=== PATIENT | female | born 1950 | race Caucasian/White ===

== ENCOUNTER → 2018-06-04 09:18 | Outpatient (REF) | payer MEDICARE, MEDICAID, SELFPAY | LOC: LBN 09:18 | PROVIDERS: PCP Family Medicine; Visit Provider Family Medicine | DX: R19.7 Diarrhea, unspecified (principal) | CPT/HCPCS: 87324 ==

== ENCOUNTER → 2018-06-08 00:15 | Outpatient (CLI) | payer MEDICARE, MEDICAID, SELFPAY ==
--- NOTE | 2018-06-08 07:52 | DI.RPTCT_ITS ---
SYMPTOM/DIAGNOSIS: ABDOMINAL PAIN, ABDOMINAL MASS CT SCAN ABDOMEN AND PELVIS: CT scan of the abdomen and pelvis was performed following the uneventful administration of intravenous and oral contrast material. There are no priors for comparison. Comparison ultrasound is 01/30/14. The visualized lung bases are clear. The liver is normal in size. No evidence of an hepatic mass seen. The portal and superior mesenteric veins are patent. The patient is status post cholecystectomy. No biliary ductal dilatation is present. The pancreas is unremarkable as are the spleen and adrenal glands. The kidneys show normal and symmetric enhancement. No evidence of a solid renal mass or obstruction. The urinary bladder is intact. The reproductive organs are unremarkable. There is atherosclerosis of the abdominal aorta but no aneurysmal dilatation is present. No significant abdominal or pelvic adenopathy, ascites or pneumoperitoneum is present. There is a small fat containing umbilical hernia. There is a large fat containing supra umbilical hernia measuring 7.2 cm transverse x 3.5 cm AP. The anterior abdominal wall opening of the hernia measures 2.6 cm There is a smaller fat containing midline anterior abdominal wall hernia in the supraumbilical region which measures approximately 1.5 cm in diameter. There is diverticulosis of the colon but no evidence of acute diverticulitis. The remainder of the bowel is unremarkable. There is a normal retrocecal appendix present. There are moderate degenerative changes seen in the spine. IMPRESSION: 1. Two anterior abdominal wall fat containing umbilical hernias. They are midline and supraumbilical in location. 2. No evidence of an acute abdomen. Incidental findings in the abdomen and pelvis as described above.
[2018-06-08] MEDS: Omnipaque 350 MG/ML 100 ML BTL IJ (08:43)
[2018-06-08] MEDS: Omnipaque 350 MG/ML 50 ML BTL IJ (08:43)
[2018-06-08] MEDS: Breeza Beverage 473 ML BTL PO (08:45)
[2018-06-08 08:57] LABS: ALT 20 U/L (12-78); AST 15 U/L (15-37); Albumin 3.6 g/dL (3.4-5.0); Alkaline Phosphatase 46 U/L (46-116); Anion Gap 7.8 mmol/L (3-11); BUN 8 mg/dL (7-18); Bilirubin, Total 0.7 mg/dL (0.2-1.0); CO2 30.2 mmol/L (21.0-32.0); CREATININE 0.84 mg/dL (0.55-1.02); Chloride 103 mmol/L (98-107); Ferritin 18 ng/mL (8-388); Glucose 219 mg/dL (70-100); Magnesium 1.5 mg/dL (1.8-2.4); Potassium 3.6 mmol/L (3.5-5.1); Sodium 141 mmol/L (136-145); Total Protein 7.4 g/dL (6.4-8.2)
[2018-06-08 09:12] LABS: Iron 52 ug/dL (50-175)
== END ==
PROVIDERS: PCP Family Medicine; Visit Provider Family Medicine
DX: R10.30 Lower abdominal pain, unspecified (principal); K42.9 Umbilical hernia without obstruction or gangrene; D64.9 Anemia, unspecified; E11.21 Type 2 diabetes mellitus with diabetic nephropathy; K21.9 Gastro-esophageal reflux disease without esophagitis
CPT/HCPCS: 74177; Q9967; 36415; 80053; 82728; 83540; 83735; J3490

== ENCOUNTER → 2018-07-19 10:50 | Outpatient (BNVA) | payer MEDICARE, MEDICAID, SELFPAY | PROVIDERS: PCP Family Medicine; Visit Provider Surgery | DX: D50.8 Other iron deficiency anemias (principal) ==

== ENCOUNTER 2018-07-23 11:43 | Outpatient (CLI) | payer MEDICARE, MEDICAID, SELFPAY | END 2018-07-23 12:03 | PROVIDERS: PCP Family Medicine; Visit Provider Surgery | DX: D50.8 Other iron deficiency anemias (principal); Z01.818 Encounter for other preprocedural examination ==

== ENCOUNTER 2018-07-30 08:23 | Day surgery (SDC) | payer MEDICARE, MEDICAID, SELFPAY ==
--- NOTE | 2018-07-30 08:47 | W.COLOREPORT ---
Date of service: 07/30/18 Time of Service: 12:07 Colonoscopy Report Date of procedure: 07/30/18 Pre-op diagnosis general: Anemia Post-op diagnosis procedure note: other (1. Anemia 2. Sigmoid Diverticulosis 3. Grade II Hemorrhoids) Procedure: 1. Esophagogastroduodenoscopy 2. Colonoscopy to the cecum Surgeon: Ehsan White Anesthesia proc note operative: MAC (Selvin Kirk CRNA ASA 3, Mallampati III) Estimated blood loss (mL): 0 Pathology: none sent Complications: None Disposition: same day Indications: 67 y/o female with history of anemia presents for colonoscopy and EGD pre-op. Her last colonoscopy was in 2009. She denies any known location of bleeding. She denies a family history of colon cancer. She reports that for several months (exact duration unknown) she has been having green BM's and for the last 1.5 months she been having diarrhea. She reports having had heartburn in the past which has since resolved with the use of omeprazole. She denies having abdominal pain, melena or hematochezia. She reports having reports having been told she has COPD and CHF. She is a current smoker of 7 cig/day. She denies having any chest pain, dyspnea or dyspnea on exertion. She last saw a digital account executive in April 2018 which did not require any follow up. She denies any history or family history of anesthesia complications. She denies constitutional symptoms. It was recommended that she have an upper and lower endoscopy to evaluate for GI source of her anemia. The procedures were reviewed with her, and the associated risks were discussed. All her questions were answered to her satisfaction. Prep: Miralax/Dulcolax (Prep quality good) Findings: In examining the upper gastrointestinal tract from the oropharynx to the third portion of the duodenum, no abnormalities were noted. The colon was examined from cecum to anus. In the colon she was noted to have mild sigmoid diverticulosis, and in the rectum at the anorectal junction there is grade 2 hemorrhoids. Procedure Description: The patient was brought to the procedure room. Monitoring for telemetry, end-tidal CO2, O2 saturation, blood pressure were applied. An appropriate timeout was taken reviewing the patient's identification, allergies, medications,and procedure. Sedation was titrated for effect by the HOSPITAL NURSE. The upper endoscopy was performed first. An Olympus variable stiffness endoscope was advanced from the oropharynx to the third portion of the duodenum without difficulty. The scope was then withdrawn in circumferential manner from the duodenum back to the oropharynx. In performing withdrawal of the scope, the duodenum appeared grossly normal. The scope was withdrawn into the gastric antrum and retroflexed to examine the entire stomach, and no abnormalities of the gastric antrum, anterior, posterior surfaces of the stomach, lesser curvature, greater curvature, and fundus were noted. The scope was then withdrawn to the GE junction which I measured at 42 cm. The Z line was at 42 cm and appeared regular. I withdrew the scope through the remainder of the esophagus all which appear grossly normal. Scope was then withdrawn terminating the upper endoscopy. The patient was then repositioned for colonoscopy. Sedation was titrated for effect again. Once adequate sedation was achieved, I performed a inspection of the external perineum, and a digitial rectal examination. No significant external abnormalities were noted. On digital rectal examination, there was no blood, no masses, good rectal tone. I advanced the colonoscope from the anus to the cecum under direct visualization. The cecum was identified by the ileal-cecal valve, and the appendiceal orifice. The scope was then withdrawn in circumferential manner from the cecum to the rectum. No abnormalites were noted in the colon. The scope was then withdrawn into the rectum, and retroflexed. No abnormalities were noted of the rectum or anorectal junction. The scope was then withdrawn, terminating the procedure. There were no complications during the procedure, and the patient tolerated the procedure well. She was returned to the day surgery recovery area in good condition. Plan: No occult source identified as a possible source of Mrs. Pratt iron deficiency anemia. She does have hemorrhoids, which appeared to have been active recently. If she continues to have issues with her hemorrhoids then she may be surgically amendable to hemorrhoid banding versus resection; otherwise, conservative medical management with topical medication and fiber therapy for the hemorrhoids would be appropriate. She should have another colonoscopy for colorectal screening in 10 years, given current consensus guidelines
[2018-07-30 08:55] VITALS: BP 154/82; PULSE 108; RESP 18; TEMP 36.6; O2SAT 91
[2018-07-30] MEDS: Lactated Ringers 1,000 ML 80 ML IV (09:13)
--- NOTE | 2018-07-30 11:04 | W.PM.HP.N ---
Date of service: 07/30/18 Time of Service: 11:05 Assessment and Plan (1) Iron deficiency anemia: Current visit: Yes Status: Acute History of Present Illness Chief Complaint: Anemia Review of Systems Review of Systems Constitutional: Denies fever, chills, malaise, fatigue, weight loss, sweating; Neurological: denies headache, seizures, syncope; weakness Eyes: denies loss of vision, double vision, blurry vision, wears corrective lenses; Ears,nose, throat: denies loss of hearing, tinnitus, vertigo, epistaxis, hoarseness, throat swelling. Cardiac: denies chest pain with exertion, palpation, pain shooting from chest into arm. Respiratory: denies cough, sputum production, chest congestion, wheezing. Gastrointestinal: denies abdominal pain, dysphagia, nausea, vomiting, hematamesis, hematochezia, melena. Genitourinary: denies frequency, urgency, hesitancy, incontinence, and dysuria. Musculoskeletal: denies arthralgia, myalgia, fracture, joint pain, joint swelling, back pain. Psychiatric: denies anxiety, depression, difficulty concentrating, difficulty sleeping, irritability. PFSH Family History Father Diabetes Grandfather Diabetes Grandmother Diabetes Mother No problems noted. Daughter Neoplasm Daughter Depression Daughter No problems noted. Daughter No problems noted. Medical History COPD (chronic obstructive pulmonary disease) Diabetes mellitus, insulin dependent (IDDM), controlled Diabetic nephropathy Diabetic retinopathy Essential hypertension Heart failure Hyperlipidemia Tobacco dependence Surgical History Cholecystectomy Colonoscopy - [facility] [place] Home Medications Medication Instructions Recorded Confirmed Type blood-glucose meter #1 ea 02/07/14 07/19/18 History triamcinolone acetonide 1 applic TOPICAL BID PRN #1 tube 07/20/14 07/23/18 History multivitamin [Multi-Vitamin Daily] 1 tab PO DAILY 07/30/15 07/19/18 History magnesium chloride [Slow-Mag] 71.5 mg PO BID #60 tab-cap 07/01/16 07/30/18 History blood sugar diagnostic [Onetouch #200 strip 08/05/17 07/19/18 Rx Ultra Test Strips] lancets [Soft Touch] #1 box 08/05/17 07/19/18 Rx losartan 1.5 tab PO DAILY #120 tab 08/05/17 07/30/18 Rx valacyclovir 1 tab PO DAILY #90 tab 10/16/17 07/30/18 Rx furosemide 40 - 60 mg PO DAILY #90 tab-cap 10/28/17 07/30/18 Rx omeprazole 20 mg PO DAILY #90 tab-cap 03/31/18 07/30/18 Rx ferrous sulfate 325 mg PO TID #90 tab-cap 04/26/18 07/30/18 Rx amlodipine 5 mg PO DAILY #30 tab-cap 06/28/18 07/30/18 Rx cetirizine 10 mg PO DAILY #90 tab-cap 06/28/18 07/30/18 Rx fluticasone [Flonase Allergy 2 spry NS DAILY PRN #120 spry 07/02/18 07/23/18 History Relief] metformin 2 tab PO BID 07/23/18 07/30/18 History Allergies Allergy/AdvReac Type Severity Reaction Status Date / Time codeine AdvReac Severe Cardiac Verified 07/23/18 11:59 Dysrythmia indomethacin AdvReac Intermediate Cardiac Verified 07/23/18 11:59 Dysrythmia lisinopril AdvReac Verified 07/23/18 11:59 Exam Narrative Exam Narrative: General: Awake, alert, oriented x 3, well groomed Neurological: cranial nerves II-12 grossly intact, moves all extremities, no focal deficits. HEENT: Normacephalic, atruamatic, pupils are equal, round, and reactive to light, extraocular muscles intact, mucousa moist and pink. Neck: normal visual inspection, supple, trachea midline. Heart: regular rate, rhythm Respiratory: No wheezing, cough, sputum production, or chest congestion. breathing unlabored. Abdomen: Soft, non-tender, non-distended, no hernias. Extremities: no cyanosis, clubbing or edema. Integument: warm, dry, normal turgor, no rashes, or lesion.
--- NOTE | 2018-07-30 11:12 | HPE_ITS ---
Date of service: 07/30/18 Time of Service: 11:05 Assessment and Plan (1) Iron deficiency anemia: Current visit: Yes Status: Acute History of Present Illness Chief Complaint: Anemia Review of Systems Review of Systems Constitutional: Denies fever, chills, malaise, fatigue, weight loss, sweating; Neurological: denies headache, seizures, syncope; weakness Eyes: denies loss of vision, double vision, blurry vision, wears corrective lenses; Ears ,nose, throat: denies loss of hearing, tinnitus, vertigo, epistaxis, hoarseness , throat swelling. Cardiac: denies chest pain with exertion, palpation, pain shooting from chest into arm. Respiratory: denies cough, sputum production, chest congestion, wheezing. Gastrointestinal: denies abdominal pain, dysphagia, nausea, vomiting, hematamesis, hematochezia, melena. Genitourinary: denies frequency, urgency, hesitancy, incontinence, and dysuria. Musculoskeletal: denies arthralgia, myalgia, fracture, joint pain, joint swelling, back pain. Psychiatric: denies anxiety, depression, difficulty concentrating, difficulty sleeping, irritability. PFSH Family History Father Diabetes Grandfather Diabetes Grandmother Diabetes Mother No problems noted. Daughter Neoplasm Daughter Depression Daughter No problems noted. Daughter No problems noted. Medical History COPD (chronic obstructive pulmonary disease) Diabetes mellitus, insulin dependent (IDDM), controlled Diabetic nephropathy Diabetic retinopathy Essential hypertension Heart failure Hyperlipidemia Tobacco dependence Surgical History Cholecystectomy Colonoscopy - [facility] Home Medications Medication Instructions Recorded Confirmed Type blood-glucose meter #1 ea 02/07/14 07/19/18 History triamcinolone acetonide 1 applic TOPICAL BID PRN #1 tube 07/20/14 07/23/18 History multivitamin [Multi-Vitamin Daily] 1 tab PO DAILY 07/30/15 07/19/18 History magnesium chloride [Slow-Mag] 71.5 mg PO BID #60 tab-cap 07/01/16 07/30/18 History blood sugar diagnostic [Onetouch #200 strip 08/05/17 07/19/18 Rx Ultra Test Strips] lancets [Soft Touch] #1 box 08/05/17 07/19/18 Rx losartan 1.5 tab PO DAILY #120 tab 08/05/17 07/30/18 Rx valacyclovir 1 tab PO DAILY #90 tab 10/16/17 07/30/18 Rx furosemide 40 - 60 mg PO DAILY #90 tab-cap 10/28/17 07/30/18 Rx omeprazole 20 mg PO DAILY #90 tab-cap 03/31/18 07/30/18 Rx ferrous sulfate 325 mg PO TID #90 tab-cap 04/26/18 07/30/18 Rx amlodipine 5 mg PO DAILY #30 tab-cap 06/28/18 07/30/18 Rx cetirizine 10 mg PO DAILY #90 tab-cap 06/28/18 07/30/18 Rx fluticasone [Flonase Allergy 2 spry NS DAILY PRN #120 spry 07/02/18 07/23/18 History Relief] metformin 2 tab PO BID 07/23/18 07/30/18 History Allergies Allergy/AdvReac Type Severity Reaction Status Date / Time codeine AdvReac Severe Cardiac Verified 07/23/18 11:59 Dysrythmia indomethacin AdvReac Intermediate Cardiac Verified 07/23/18 11:59 Dysrythmia lisinopril AdvReac Verified 07/23/18 11:59 Exam Narrative Exam Narrative: General: Awake, alert, oriented x 3, well groomed Neurological: cranial nerves II-12 grossly intact, moves all extremities, no focal deficits. HEENT: Normacephalic, atruamatic, pupils are equal, round, and reactive to light, extraocular muscles intact, mucousa moist and pink. Neck: normal visual inspection, supple, trachea midline. Heart: regular rate, rhythm Respiratory: No wheezing, cough, sputum production, or chest congestion. breathing unlabored. Abdomen: Soft, non-tender, non-distended, no hernias. Extremities: no cyanosis, clubbing or edema. Integument: warm , dry, normal turgor, no rashes, or lesion.
--- NOTE | 2018-07-30 11:15 | DSE_ITS ---
Date of service: 07/30/18 Time of Service: 11:13 DS: Diagnosis Discharge Diagnosis (1) Iron deficiency anemia: Status: Acute Discharge Plan Disposition Patient Disposition: HOME Condition: Good Discharge Details Reason For Visit: Upper and lower endoscopy Attending Provider: Ehsan White Primary Care Provider: Jane Johnson Home Meds and New Rx's Prescriptions: No Action blood-glucose meter 1 EACH misc 1 ea Miscellaneous AC & HS Qty: 1 RF: 0 triamcinolone acetonide 15 GM cream 1 applic Topical BID PRNQty: 1 RF: 3 magnesium chloride [Slow-Mag] 71.5 MG tablet,delayed release (DR/EC) 71.5 mg PO BID Qty: 60 RF: 2 blood sugar diagnostic [[employer] Ultra Test] 1 EACH strip 1 ea Miscellaneous BID Qty: 200 RF: 5 lancets [Soft Touch Lancets] 1 EACH misc 1 ea Miscellaneous BID Qty: 1 RF: 4 losartan 100 MG tablet 1.5 tab PO DAILY Qty: 120 RF: 4 valacyclovir 500 MG tablet 1 tab PO DAILY Qty: 90 RF: 3 furosemide 20 MG tablet 40 - 60 mg PO DAILY Qty: 90 RF: 11 omeprazole 20 MG capsule,delayed release(DR/EC) 20 mg PO DAILY Qty: 90 RF: 3 ferrous sulfate 325 MG tablet 325 mg PO TID Qty: 90 RF: 2 amlodipine 5 MG tablet 5 mg PO DAILY Qty: 30 RF: 3 cetirizine 10 MG tablet 10 mg PO DAILY Qty: 90 RF: 4 fluticasone [Flonase Allergy Relief] 9.9 ML spray,suspension 2 spry NS DAILY PRNQty: 120 RF: 5 multivitamin [Daily Multi-Vitamin] 1 EACH tablet 1 tab PO DAILY RF: 0 metformin 500 MG tablet 2 tab PO BID RF: 0 Discharge Instructions Instructions: Upper Endoscopy (DC), Colonoscopy (DC) Activity:: Activity as Tolerated Diet:: As Tolerated DS: Data Vitals/I&O Vitals and I&O: Vital Signs Temperature 36.6 C 07/30/18 08:55 Pulse 108 H 07/30/18 08:55 Respiratory Rate 18 07/30/18 08:55 Respiratory Depth Shallow 07/30/18 08:55 Blood Pressure 154/82 H 07/30/18 08:55 Pulse Oximetry 91 L 07/30/18 08:55 Oxygen Delivery Method Room Air 07/30/18 08:55 Oxygen Flow Rate 0 07/30/18 08:55 Intake & Output 07/29/18 07/30/18 07/30/18 18:59 06:59 18:59 Weight 69.8 kg Pending studies at discharge: CHOLECYSTECTOMY (01/24/99) ELECTROCARDIOGRAM (01/16/99) ENDOSCOPIC BIOPSY OF RECTUM (06/17/10) Hysteroscopy (03/04/12) Other dilation and curettage (03/04/12)
--- NOTE | 2018-07-30 12:07 | PDOC.DSDIS_ITS ---
Discharge Plan Disposition Patient Disposition: HOME Condition: Good Discharge Details Reason For Visit: Upper and lower endoscopy Attending Provider: Ehsan White Primary Care Provider: Jane Johnson Home Meds and New Rx's Prescriptions: Continue blood-glucose meter 1 EACH misc 1 ea Miscellaneous AC & HS Qty: 1 RF: 0 triamcinolone acetonide 15 GM cream 1 applic Topical BID PRNQty: 1 RF: 3 magnesium chloride [Slow-Mag] 71.5 MG tablet,delayed release (DR/EC) 71.5 mg PO BID Qty: 60 RF: 2 blood sugar diagnostic [[employer]Touch Ultra Test] 1 EACH strip 1 ea Miscellaneous BID Qty: 200 RF: 5 lancets [Soft Touch Lancets] 1 EACH misc 1 ea Miscellaneous BID Qty: 1 RF: 4 losartan 100 MG tablet 1.5 tab PO DAILY Qty: 120 RF: 4 valacyclovir 500 MG tablet 1 tab PO DAILY Qty: 90 RF: 3 furosemide 20 MG tablet 40 - 60 mg PO DAILY Qty: 90 RF: 11 omeprazole 20 MG capsule,delayed release(DR/EC) 20 mg PO DAILY Qty: 90 RF: 3 ferrous sulfate 325 MG tablet 325 mg PO TID Qty: 90 RF: 2 amlodipine 5 MG tablet 5 mg PO DAILY Qty: 30 RF: 3 cetirizine 10 MG tablet 10 mg PO DAILY Qty: 90 RF: 4 fluticasone [Flonase Allergy Relief] 9.9 ML spray,suspension 2 spry NS DAILY PRNQty: 120 RF: 5 multivitamin [Daily Multi-Vitamin] 1 EACH tablet 1 tab PO DAILY RF: 0 metformin 500 MG tablet 2 tab PO BID RF: 0 Discharge Instructions Instructions: Colonoscopy (DC), Upper Endoscopy (DC) Activity:: Activity as Tolerated Diet:: As Tolerated Discharge Orders Discharge Orders: Discharge Order (Routine); Ordered 07/30/18 Ordered By: Ehsan White DS: Diagnosis Discharge Diagnosis (1) Iron deficiency anemia: Status: Acute
--- NOTE | 2018-07-30 12:08 | COLE_ITS ---
Date of service: 07/30/18 Time of Service: 12:07 Colonoscopy Report Date of procedure: 07/30/18 Pre-op diagnosis general: Anemia Post-op diagnosis procedure note: other (1. Anemia 2. Sigmoid Diverticulosis 3. Grade II Hemorrhoids) Procedure: 1. Esophagogastroduodenoscopy 2. Colonoscopy to the cecum Surgeon: Ehsan White Anesthesia proc note operative: MAC (Selvin Kirk CRNA ASA 3, Mallampati III) Estimated blood loss (mL): 0 Pathology: none sent Complications: None Disposition: same day Indications: 67 y/o female with history of anemia presents for colonoscopy and EGD pre-op. Her last colonoscopy was in 2009. She denies any known location of bleeding. She denies a family history of colon cancer. She reports that for several months (exact duration unknown) she has been having green BM's and for the last 1.5 months she been having diarrhea. She reports having had heartburn in the past which has since resolved with the use of omeprazole. She denies having abdominal pain, melena or hematochezia. She reports having reports having been told she has COPD and CHF. She is a current smoker of 7 cig/day. She denies having any chest pain, dyspnea or dyspnea on exertion. She last saw a supervisor cytogenetic laboratory in April 2018 which did not require any follow up. She denies any history or family history of anesthesia complications. She denies constitutional symptoms. It was recommended that she have an upper and lower endoscopy to evaluate for GI source of her anemia. The procedures were reviewed with her, and the associated risks were discussed. All her questions were answered to her satisfaction. Prep: Miralax/Dulcolax (Prep quality good) Findings: In examining the upper gastrointestinal tract from the oropharynx to the third portion of the duodenum, no abnormalities were noted. The colon was examined from cecum to anus. In the colon she was noted to have mild sigmoid diverticulosis, and in the rectum at the anorectal junction there is grade 2 hemorrhoids. Procedure Description: The patient was brought to the procedure room. Monitoring for telemetry, end- tidal CO2, O2 saturation, blood pressure were applied. An appropriate timeout was taken reviewing the patient's identification, allergies, medications,and procedure. Sedation was titrated for effect by the SOCIAL MEDIA ANALYST. The upper endoscopy was performed first. An Olympus variable stiffness endoscope was advanced from the oropharynx to the third portion of the duodenum without difficulty. The scope was then withdrawn in circumferential manner from the duodenum back to the oropharynx. In performing withdrawal of the scope , the duodenum appeared grossly normal. The scope was withdrawn into the gastric antrum and retroflexed to examine the entire stomach, and no abnormalities of the gastric antrum, anterior, posterior surfaces of the stomach , lesser curvature, greater curvature, and fundus were noted. The scope was then withdrawn to the GE junction which I measured at 42 cm. The Z line was at 42 cm and appeared regular. I withdrew the scope through the remainder of the esophagus all which appear grossly normal. Scope was then withdrawn terminating the upper endoscopy. The patient was then repositioned for colonoscopy. Sedation was titrated for effect again. Once adequate sedation was achieved, I performed a inspection of the external perineum, and a digitial rectal examination. No significant external abnormalities were noted. On digital rectal examination, there was no blood, no masses, good rectal tone. I advanced the colonoscope from the anus to the cecum under direct visualization. The cecum was identified by the ileal-cecal valve, and the appendiceal orifice. The scope was then withdrawn in circumferential manner from the cecum to the rectum. No abnormalites were noted in the colon. The scope was then withdrawn into the rectum, and retroflexed. No abnormalities were noted of the rectum or anorectal junction. The scope was then withdrawn, terminating the procedure. There were no complications during the procedure, and the patient tolerated the procedure well. She was returned to the day surgery recovery area in good condition. Plan: No occult source identified as a possible source of Mrs. Pratt iron deficiency anemia. She does have hemorrhoids, which appeared to have been active recently. If she continues to have issues with her hemorrhoids then she may be surgically amendable to hemorrhoid banding versus resection; otherwise, conservative medical management with topical medication and fiber therapy for the hemorrhoids would be appropriate. She should have another colonoscopy for colorectal screening in 10 years, given current consensus guidelines
[2018-07-30 12:47] VITALS: BP 131/69; PULSE 92; RESP 16; TEMP 36.8; O2SAT 91
== END 2018-07-30 13:05 | disposition home or self-care (01) ==
PROVIDERS: PCP Family Medicine; Visit Provider Surgery
PROC: (CPT 43235; principal; 2018-07-30 10:10)
DX: D50.9 Iron deficiency anemia, unspecified (principal); K57.30 Diverticulosis of large intestine without perforation or abscess without bleeding; K64.1 Second degree hemorrhoids; J44.9 Chronic obstructive pulmonary disease, unspecified; F17.210 Nicotine dependence, cigarettes, uncomplicated; I10 Essential (primary) hypertension
CPT/HCPCS: 43235; 45378; J2250; J3010

== ENCOUNTER → 2018-07-30 08:49 | Outpatient (BNVA) | payer MEDICARE, MEDICAID, SELFPAY | PROVIDERS: Visit Provider Surgery | DX: R69 Illness, unspecified (principal) ==

== ENCOUNTER 2018-08-05 11:42 | Outpatient (REF) | payer MEDICARE, MEDICAID, SELFPAY | END 2018-08-05 12:02 | LOC: LBN 11:42 | PROVIDERS: PCP Family Medicine; Visit Provider Family Medicine | DX: R30.0 Dysuria (principal) | CPT/HCPCS: 87077; 87086; 87186 ==

== ENCOUNTER 2018-08-18 07:40 | Outpatient (CLI) | payer MEDICARE, MEDICAID, SELFPAY ==
[2018-08-18 08:44] LABS: HCT 44.4 % (36.0-46.0); HGB 14.1 g/dL (12.0-15.5); Mean Corp. HGB Concentration 31.8 g/dL (32.0-36.0); Mean Corpuscular Hemoglobin 27.9 pg (27.0-33.0); Mean Corpuscular Volume 87.7 fL (80-95); Mean Platelet Volume 10.6 fL (8.0-11.0); Platelet Count 226 x1000/uL (130-400); RBC 5.06 m/cumm (4.00-5.20); RBC Distribution Width 13.8 % (11.7-14.6); White Blood Cell Count 8.03 k/cumm (4.4-10.8)
[2018-08-18 09:16] LABS: Hemoglobin A1C 9.3 % (4.5-6.2)
== END 2018-08-18 08:00 ==
PROVIDERS: Family Medicine; PCP Family Medicine; Visit Provider Family Medicine
DX: D50.9 Iron deficiency anemia, unspecified (principal); E11.21 Type 2 diabetes mellitus with diabetic nephropathy
CPT/HCPCS: 36415; 85027; 83036

== ENCOUNTER 2019-01-20 18:56 | Outpatient (REF) | payer MEDICARE, MEDICAID, SELFPAY ==
[2019-01-20 19:49] LABS: Bilirubin Negative (Negative); Blood Moderate (Negative); Clarity Sl Cloudy; Glucose Negative (Negative); Ketones Trace mg/dL (Negative); Leukocyte Esterase Negative (Negative); Nitrite Negative (Negative); Specific Gravity 1.025 (1.005-1.025); Urobilinogen 0.2 EU/dL (Up TO 0.2); pH 5.5 (5-8)
[2019-01-20 20:14] LABS: Bacteria Many HPF (Negative); C & S Indicated? No/Sq. Contamination; Casts Negative LPF (Negative); Crystals Moderate Amorphous HPF (Negative); Epithelial Cells Moderate HPF (Negative); Mucus Negative (Negative); WBC 20-50 HPF (0-5)
== END 2019-01-20 19:16 ==
LOC: LBN 18:56
PROVIDERS: PCP Family Medicine; Visit Provider Nurse Practitioner Family
DX: R30.0 Dysuria (principal)
CPT/HCPCS: 81003; 81015; 87086

== ENCOUNTER 2019-01-26 20:47 | Outpatient (REF) | payer MEDICARE, MEDICAID, SELFPAY | END 2019-01-26 21:07 | LOC: LBN 20:47 | PROVIDERS: PCP Family Medicine; Visit Provider Nurse Practitioner Family | DX: R30.0 Dysuria (principal) | CPT/HCPCS: 87077; 87086; 87186 ==

== ENCOUNTER 2019-06-08 10:48 | Outpatient (CLI) | payer MEDICARE, MEDICAID, SELFPAY ==
--- NOTE | 2019-06-08 10:30 | DI.RAD_ITS ---
SYMPTOM/DIAGNOSIS: SHOULDER PAIN LEFT SHOULDER: There is spurring at the AC joint and undersurface of the acromion. There is mild spurring at the glenohumeral joint. The glenohumeral joint space appears well maintained. There are several calcifications seen near the greater tuberosity which could represent tendon or joint space calcifications. The bones appear osteoporotic. IMPRESSION: Tendon versus joint space calcifications near the greater tuberosity. Spurring of the AC joint and glenohumeral joint.
== END 2019-06-08 11:08 ==
PROVIDERS: PCP Family Medicine; Referring Provider Family Medicine; Visit Provider Student in an Organized Health Care Education/Training Program
DX: M25.512 Pain in left shoulder (principal); M75.82 Other shoulder lesions, left shoulder; M81.0 Age-related osteoporosis without current pathological fracture; M75.32 Calcific tendinitis of left shoulder; E11.21 Type 2 diabetes mellitus with diabetic nephropathy; I10 Essential (primary) hypertension
CPT/HCPCS: 99214; 73030

== ENCOUNTER 2019-06-13 07:30 | Outpatient (CLI) | payer MEDICARE, MEDICAID, SELFPAY ==
[2019-06-13 09:05] LABS: Hemoglobin A1C 9.6 % (4.5-6.2)
[2019-06-13 09:35] LABS: Iron 68 ug/dL (50-175)
[2019-06-13 09:50] LABS: ALT 22 U/L (12-78); AST 13 U/L (15-37); Albumin 3.9 g/dL (3.4-5.0); Alkaline Phosphatase 50 U/L (46-116); Anion Gap 9.2 mmol/L (3-11); BUN 17 mg/dL (7-18); Bilirubin, Total 0.9 mg/dL (0.2-1.0); CO2 31.8 mmol/L (21.0-32.0); CREATININE 0.85 mg/dL (0.55-1.02); Calcium 9.5 mg/dL (8.5-10.1); Chloride 100 mmol/L (98-107); Ferritin 79 ng/mL (8-388); Glucose 220 mg/dL (70-100); Magnesium 1.8 mg/dL (1.8-2.4); Sodium 141 mmol/L (136-145); Total Protein 7.2 g/dL (6.4-8.2)
[2019-06-13 11:39] LABS: COMMENT (LAB VIEW ONLY) 97.26 mg/dL
== END 2019-06-13 07:50 ==
PROVIDERS: PCP Family Medicine; Visit Provider Family Medicine
DX: E83.42 Hypomagnesemia (principal); D50.9 Iron deficiency anemia, unspecified; E11.21 Type 2 diabetes mellitus with diabetic nephropathy
CPT/HCPCS: 36415; 80053; 82043; 82570; 82728; 83036; 83540; 83735

== ENCOUNTER 2019-08-28 09:48 | Emergency (ER) | payer MEDICARE, MEDICAID, SELFPAY ==
[2019-08-28] VITALS (40 sets, daily range): BP systolic 120–170; BP diastolic 57–75; PULSE 92–115; RESP 12–44; TEMP 36.5; O2SAT 89–93
[2019-08-28 10:35] LABS: Bilirubin Negative (Negative); Blood Trace-intact (Negative); Clarity Clear (Clear); Glucose Negative (Negative); Ketones Negative (Negative); Leukocyte Esterase Negative (Negative); Nitrite Negative (Negative); Specific Gravity 1.015 (1.005-1.025); Urobilinogen 0.2 EU/dL (Up TO 0.2); pH 6.5 (5-8)
--- NOTE | 2019-08-28 10:45 | DI.RAD_ITS ---
EXAM: XR CHEST 2V PA LATERAL INDICATION: dizziness. COMPARISON: CHEST 2 VIEWS PA,LAT from 04/19/2018 TECHNIQUE: 2D digital imaging was performed. FINDINGS: Heart size and pulmonary vasculature are within normal limits. The lungs are hyperinflated suggestin g underlying COPD. No focal consolidating infiltrates, effusions, or pneumothoraces are identified. Stable age-appropriate degenerative changes are seen in the spine. IMPRESSION: No acute pulmonary process.
[2019-08-28 10:49] LABS: Abs Immature Grans 0.02 k/cumm (0.0-0.09); Absolute Basophil Count 0.02 k/cumm (0.0-0.2); Absolute Eosinophil Count 0.19 k/cumm (0.0-0.7); Absolute Lymphocyte Count 1.51 k/cumm (1.2-3.4); Absolute Monocyte Count 0.62 k/cumm (0.11-0.7); Absolute Neutrophil Count 5.91 k/cumm (1.2-6.7); Basophils % 0.2; Eosinophils % 2.3; HCT 43.6 % (36.0-46.0); HGB 14.2 g/dL (12.0-15.5); Immature Grans % 0.2; Lymphocytes % 18.3; Mean Corp. HGB Concentration 32.6 g/dL (32.0-36.0); Mean Corpuscular Hemoglobin 29.8 pg (27.0-33.0); Mean Corpuscular Volume 91.6 fL (80-95); Mean Platelet Volume 10.2 fL (8.0-11.0); Monocytes % 7.5; Neutrophils % 71.5; Platelet Count 279 x1000/uL (130-400); RBC 4.76 m/cumm (4.00-5.20); RBC Distribution Width 12.8 % (11.7-14.6); White Blood Cell Count 8.27 k/cumm (4.4-10.8)
[2019-08-28 10:54] LABS: Bacteria Rare HPF (Negative); C & S Indicated? No/Sq. Contamination; Casts Negative LPF (Negative); Crystals Negative HPF (Negative); Epithelial Cells Many HPF (Negative); Mucus Negative (Negative); RBC 0-2 (0-2); WBC 0-2 HPF (0-5)
--- NOTE | 2019-08-28 11:07 | DI.VRAD_ITS ---
PROCEDURE INFORMATION: Exam: XR Chest, 2 Views Exam date and time: 08/28/2019 10:46 AM Clinical history: 69 years old, female; Other: Dizziness, and chest pain. TECHNIQUE: Imaging protocol: XR of the chest Views: 2 views. COMPARISON: CR CHEST 2 VIEWS PA,LAT 04/19/2018 3:09 PM FINDINGS: Lungs: Hyperexpanded lung ramirez consistent with COPD Pleural space: Unremarkable. No pleural effusion. No pneumothorax. Heart/Mediastinum: Unremarkable. No cardiomegaly. Bones/joints: Osseous structures are stable IMPRESSION: Hyperexpanded lung ramirez consistent with COPD Dictated and Authenticated by: Gunner Charles MD. Ordering:GRACE lAmeida MD
[2019-08-28 11:08] LABS: ALT 18 U/L (14-59); AST 12 U/L (15-37); Albumin 3.8 g/dL (3.4-5.0); Alkaline Phosphatase 43 U/L (46-116); Anion Gap 4.9 mmol/L (3-11); BUN 14 mg/dL (7-18); Bilirubin, Total 0.8 mg/dL (0.2-1.0); CO2 32.1 mmol/L (21.0-32.0); CREATININE 0.95 mg/dL (0.55-1.02); Calcium 9.2 mg/dL (8.5-10.1); Chloride 101 mmol/L (98-107); Estimated GFR 58.16 (mL/min/1.73m2); Glucose 293 mg/dL (70-100); NT-proBNP 345 pg/mL; Sodium 138 mmol/L (136-145); Total Protein 7.7 g/dL (6.4-8.2)
[2019-08-28 11:14] LABS: Troponin I < 0.05 ng/mL (0.00-0.06)
[2019-08-28] MEDS: Normal Saline 1,000 ML 500 ML IV (11:32)
--- NOTE | 2019-08-28 13:22 | DI.CT_ITS ---
EXAM: CT HEAD WO CLINICAL HISTORY: dizziness TECHNIQUE: The exam was performed according to the usual protocol without contrast. COMPARISON: No exams were available for comparison FINDINGS: The ventricles and sulci are consistent with the patient's age. There are areas of decreased attenua tion in the white matter likely reflecting small vessel ischemic disease. No acute intracranial hemo rrhage, midline shift or mass effect is identified. The ventricles are intact. The basilar cisterns are patent. There is mucosal thickening seen in the maxillary sinuses bilaterally consistent with s inusitis. The calvarium is intact. IMPRESSION: No acute intracranial process.
--- NOTE | 2019-08-28 13:25 | DI.CT_ITS ---
EXAM: CT SINUS WO CLINICAL HISTORY: dizziness TECHNIQUE: The exam was performed according to the usual protocol without contrast. COMPARISON: No exams were available for comparison FINDINGS: There is mild mucosal thickening in the maxillary sinuses bilaterally, left greater than right. Ther e is mild mucosal thickening in the ethmoid air cells. The remaining visualized paranasal sinuses ar e clear. The orbits and retro-orbital soft tissues are unremarkable. The nasal septum is midline. The turbinates are unremarkable. The ostiomeatal complexes are unremarkable. The bones are unremark able. IMPRESSION: Maxillary and ethmoid sinusitis. No fluid levels are present to suggest acute sinusitis.
--- NOTE | 2019-08-28 13:28 | ED.GENADUL_ITS ---
Discharge Plan Disposition Patient Disposition: HOME Condition: Good Discharge Details Chief Complaint: GenMedical Clinical Impression: Sinusitis Primary Care Provider: Jane Johnson ED Provider: Elle Danielle Home Meds and New Rx's Prescriptions: New amoxicillin-pot clavulanate [Augmentin] 875-125 mg tablet 1 tab PO BID Qty: 20 RF: 0 Flonase Sensimist 27.5 mcg/actuation spray,suspension 2 spray MARAH DAILY Qty: 5.9 RF: 0 No Action glipizide 2.5 mg tablet extended release 24hr 2.5 mg PO DAILY Qty: 30 RF: 2 nabumetone 500 mg tablet 500 mg PO BID Qty: 60 RF: 0 citalopram 10 mg tablet 10 mg PO DAILY Qty: 30 RF: 3 (DME) blood-glucose meter 1 EACH misc 1 ea Miscellaneous AC & HS Qty: 1 RF: 0 triamcinolone acetonide 15 GM cream 1 applic Topical BID PRNQty: 1 RF: 3 cetirizine 10 MG tablet 10 mg PO DAILY Qty: 90 RF: 4 fluticasone propionate [Flonase Allergy Relief] 9.9 ML spray,suspension 2 spry NS DAILY PRNQty: 120 RF: 5 losartan 100 mg tablet 150 mg PO DAILY Qty: 135 RF: 4 metformin 500 mg tablet 1,000 mg PO BID Qty: 150 RF: 12 (DME) OneTouch Ultra Test strip 1 ea Miscellaneous BID Qty: 200 RF: 5 (DME) lancets [Soft Touch Lancets] misc 1 ea Miscellaneous BID Qty: 1 RF: 4 furosemide 20 mg tablet 40 - 60 mg PO DAILY Qty: 90 RF: 6 Slow-Mag 71.5 mg tablet,delayed release (DR/EC) 71.5 mg PO BID Qty: 60 RF: 2 ferrous sulfate 325 mg (65 mg iron) tablet 325 mg PO BID Qty: 90 RF: 3 omeprazole 20 mg capsule,delayed release(DR/EC) 20 mg PO DAILY Qty: 90 RF: 4 azithromycin 250 mg tablet See Rx Instructions PO .COMPLEX Qty: 6 RF: 0 amlodipine 5 mg tablet 5 mg PO DAILY Qty: 90 RF: 4 valacyclovir 500 mg tablet 500 mg PO DAILY Qty: 90 RF: 3 Discharge Instructions Instructions: Sinusitis (ED) Additional Instructions: Take antibiotics as prescribed. Consider probiotic with your antibiotics. Drink plenty of fluids by mouth. Use nasal saline rinses multiple times a day and use Flonase after rinsing with saline in the morning. Follow-up with your primary care doctor on Thursday or Thursday. Please call your quiller machine fixer for reevaluation of your complaints of chest pressure as discussed. You declined admission to the hospital for chest pressure today but understand to return for any worsening, concerns or alarming symptoms sooner if needed Return if needed for any worsening of your symptoms as discussed. Medical Decision Making This is a 69-year-old patient who presents for dizziness which began this morning associated with mild chest pressure and reported nausea. Mild malaise but no measured fever or chills. She did recently have an upper respiratory infection 1 week ago was treated with azithromycin and compliant with the antibiotic. Patient reports no active chest pain only pressure. No radiation. No associated diaphoresis. Patient does have a pertinent history of CHF as well as diabetes. Blood sugar today was elevated at home approximately 250. Patient does admit to eating and drinking poorly as she currently has a visitor. On exam patient has clear breath sounds no abdominal tenderness with palpation or obvious signs of infection at this time. Will order troponins as well as EKG to evaluate for ACS. Will check head CT and labs in addition to urinalysis. Patient provided 500 cc of IV fluid. Patient tolerated fluid without any difficulty. BNP is within her baseline. Initial troponin negative. Chest x- ray reveals hyperexpanded lung ramirez consistent with COPD. No obvious findings of pneumonia. No pleural effusions. Patient feeling significantly improved after IV fluid. Chest pressure is improved, she feels at her baseline. Patient's EKG reveals a heart rate of 111 with sinus tachycardia. Nonspecific ST depression noted in V8 and V6 nothing to indicate ST elevation LA at this time. Nondiagnostic EKG. Reviewed with Dr. Woods. Patient labs unremarkable for acute abnormality or change. Patient's blood sugar is mildly elevated. Patient's urinalysis reveals trace blood but no other indicators of infection at this time. Patient continues to feel improved. Patient denies any chest pressure which persists. Patient reports dizziness has resolved. Patient is eating and drinking at the bedside. Patient requesting discharge home at this time. CT of patient's head reveals no acute intracranial abnormality however does note mucosal thickening of the left maxillary sinus and ethmoid sinuses consistent with sinusitis given her recent infection 1 week ago and use of azithromycin I do feel this is likely an acute sinus infection and possibly the cause of her dizziness. Patient advised of the CAT scan finding and recommended a course of antibiotic in addition to nasal saline rinses and Flonase. Patient reports her understanding. Consents to antibiotic treatment at this time. Augmentin prescription provided. Encouraged probiotic. Patient was offered admission to the hospital for her chest pressure given her risk factors of diabetes follow- up, smoking and her presenting complaints of chest pressure and nausea however patient does have a quiller machine fixer and would prefer outpatient follow-up with her quiller machine fixer as her symptoms have resolved at this time. Patient's initial troponin and repeat are both negative. The patient was stable and requested discharge. Prior to discharge, my usual and customary return precautions were reviewed with the patient - this included follow-up instructions and reasons to return to the Emergency Department if conditions worsens, does not improve as expected, or other new concerns arise. HPI General Date/Time Provider Initiated Documentation: 08/28/19 10:17 . HPI Narrative: This is a 69-year-old patient who presents to the emergency room this morning for dizziness. Patient reports associated mild chest pressure no associated chest pain. Denies any radiation of chest pressure. Patient reports mild nausea and malaise. No measured fever or chills. Patient reports dizziness noted when she first woke this morning and ambulated to the bathroom. No loss of consciousness or syncopal episode. Patient reports dizziness is described as the room spinning. When asked about recent illness patient does admit to a recent upper respiratory infection for which she was treated with azithromycin last week. She did finish her entire course of antibiotics. Patient denies any back and cough, difficulty breathing shortness of breath or wheezing at this time. Patient denies abdominal pain. Nausea without vomiting no associated bowel changes or diarrhea. Patient denies any back pain associated. No pain with deep breathing. Patient denies lower extremity swelling. She does have a history of CHF but does not feel that she is retaining fluid at this time. Patient is a smoker. Mild hypoxia noted at this time which she reports is her baseline. Patient does report a very mild headache but no recent fall or trauma. Not the worst headache of her life. No associated vision change, blurred vision or ringing in the ears. Related Data Home Medications Medication Instructions Recorded Confirmed blood-glucose meter #1 ea 02/07/14 08/28/19 triamcinolone acetonide 1 applic TOPICAL BID PRN #1 tube 07/20/14 08/28/19 cetirizine 10 mg PO DAILY #90 tab-cap 06/28/18 08/28/19 fluticasone propionate [Flonase 2 spry NS DAILY PRN #120 spry 07/02/18 08/28/19 Allergy Relief] losartan 100 mg tablet 150 mg PO DAILY #135 tab 08/24/18 08/28/19 metformin 500 mg tablet 1,000 mg PO BID #150 tab 09/02/18 08/28/19 blood sugar diagnostic #200 strip 10/22/18 08/28/19 lancets #1 box 11/01/18 08/28/19 furosemide 20 mg tablet 40 - 60 mg PO DAILY #90 tab-cap 12/14/18 08/28/19 magnesium chloride 71.5 mg 71.5 mg PO BID #60 tab-cap 02/02/19 08/28/19 (magnesium chloride) tablet,delayed release nabumetone 500 mg tablet 500 mg PO BID #60 tab 04/06/19 08/28/19 ferrous sulfate 325 mg (65 mg 325 mg PO BID #90 tab-cap 05/02/19 08/28/19 iron) tablet omeprazole 20 mg capsule,delayed 20 mg PO DAILY #90 tab-cap 06/02/19 08/28/19 release glipizide 2.5 mg tablet, extended 2.5 mg PO DAILY #30 tab 06/15/19 08/28/19 release 24 hr citalopram 10 mg tablet 10 mg PO DAILY #30 tab 06/23/19 08/28/19 azithromycin 250 mg tablet See Rx Instructions PO .COMPLEX #6 08/16/19 08/28/19 tab amlodipine 5 mg tablet 5 mg PO DAILY #90 tab-cap 08/22/19 08/28/19 valacyclovir 500 mg tablet 500 mg PO DAILY #90 tab 08/22/19 08/28/19 amoxicillin-pot clavulanate 1 tab PO BID #20 tab 08/28/19 [Augmentin] fluticasone furoate [Flonase 2 spray MARAH DAILY #5.9 ml 08/28/19 Sensimist] Previous Rx's Medication Instructions Recorded cetirizine 10 mg PO DAILY #90 tab-cap 06/28/18 losartan 100 mg tablet 150 mg PO DAILY #135 tab 08/24/18 metformin 500 mg tablet 1,000 mg PO BID #150 tab 09/02/18 blood sugar diagnostic #200 strip 10/22/18 lancets #1 box 11/01/18 furosemide 20 mg tablet 40 - 60 mg PO DAILY #90 tab-cap 12/14/18 nabumetone 500 mg tablet 500 mg PO BID #60 tab 04/06/19 ferrous sulfate 325 mg (65 mg 325 mg PO BID #90 tab-cap 05/02/19 iron) tablet omeprazole 20 mg capsule,delayed 20 mg PO DAILY #90 tab-cap 06/02/19 release glipizide 2.5 mg tablet, extended 2.5 mg PO DAILY #30 tab 06/15/19 release 24 hr citalopram 10 mg tablet 10 mg PO DAILY #30 tab 06/23/19 azithromycin 250 mg tablet See Rx Instructions PO .COMPLEX #6 08/16/19 tab amlodipine 5 mg tablet 5 mg PO DAILY #90 tab-cap 08/22/19 valacyclovir 500 mg tablet 500 mg PO DAILY #90 tab 08/22/19 amoxicillin-pot clavulanate 1 tab PO BID #20 tab 08/28/19 [Augmentin] fluticasone furoate [Flonase 2 spray MARAH DAILY #5.9 ml 08/28/19 Sensimist] Allergies Allergy/AdvReac Type Severity Reaction Status Date / Time codeine AdvReac Severe Cardiac Verified 08/28/19 10:00 Dysrythmia indomethacin AdvReac Intermediate Cardiac Verified 08/28/19 10:00 Dysrythmia lisinopril AdvReac cough Verified 08/28/19 10:00 General Stated Complaint: GenMedical BELKIS: 3 Review of Systems All systems reviewed & are unremarkable except as noted in HPI and below Constitutional Constitutional: Denies chills, Denies fatigue, Denies fever(s), Reports headache(s) and Reports malaise Eyes Eyes: Denies blurry vision and Denies change in vision ENT Ears, Nose, Mouth, and Throat: Reports dizziness, Denies otalgia, Reports headache(s), Denies nasal congestion, Denies tinnitus, Denies sinus pain, Denies sinus pressure and Denies sore throat Cardiovascular Cardiovascular: Denies chest pain, Denies chest pain at rest, Denies chest pain with activity, Denies diaphoresis, Denies syncope, Denies rapid heart rate, Denies pedal edema, Denies radiating jaw, neck or arm pain, Denies palpitations, Denies dyspnea and Denies dyspnea on exertion Respiratory Respiratory: Denies cough, Denies dyspnea, Denies dyspnea on exertion, Denies stridor and Denies wheezing Gastrointestinal Gastrointestinal: Denies abdominal pain, Reports nausea and Denies vomiting Genitourinary Genitourinary: Denies hematuria and Denies dysuria Neurologic Neurologic: Reports dizziness, Denies syncope and Reports headache(s) Endocrine Endocrine: Denies fatigue and Denies palpitations Allergic/Immunologic Allergic/Immunologic: Denies wheezing [facility] Medical History COPD (chronic obstructive pulmonary disease) Diabetes mellitus, insulin dependent (IDDM), controlled Diabetic nephropathy Diabetic retinopathy Essential hypertension Heart failure Hyperlipidemia Normal colonoscopy (Acute 07/30/18) Dr White, repeat in 10 years Tobacco dependence Surgical History Cholecystectomy Colonoscopy - MAC History of esophagogastroduodenoscopy (EGD) (Chronic 07/30/18) Dr White Social History Smoking/Tobacco Use Status: Current every day Tobacco Type: cigarettes Alcohol Intake: never Drug use: Never Substance use type: does not use 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 Alert and alert. HENMT: Head nomocephalic, normal to inspection. Atraumatic. Hearing grossly normal. External ear canal no erythema or swelling. TM normal bilaterally. Nose normal to inspection. No rhinnorhea. Normal facial exam. Oral mucosa normal. Tounge normal. Dentition normal. Normal posterior oropharynx. Uvula midline. EYES: General normal appearance. Alignment normal. Eyelids normal. Conjunctiva normal. Sclera normal. PERRL. NECK: Normal visual inspection. FROM. No lymphadenopathy. Trachea midline. No Midline tenderness. CHEST: Normal insepection of the chest. RESP: Normal respiratory effort. Speaking full sentences. No cough. No wheezing. No retractions. Clear to auscaltation. Breath sound equal and present bilaterally. CARDIO: No JVD. Normal PMI. Regular Rate. Regular Rhythm. Normal peripheral pulses. GI: Normal inspection of abdomen. No distension. Soft. Nontender. Bowel sounds present in all 4 quadrants. No rebound. No gaurding. MUSCULOSKELETAL: Normal Gait. FROM of all extremities. Distal neurovascularly intact. Sensation intact distally. No distal edema SKIN: Normal. Dry. No rashes. NEURO: Alert and awake. Speech clear. PSYCH: Normal affect. Cooperative. Course Vital Signs Vital signs: Vital Signs Temperature 36.5 C 08/28/19 09:55 Pulse 115 H 08/28/19 09:55 Respiratory Rate 20 08/28/19 09:55 Blood Pressure 170/75 H 08/28/19 09:55 Pulse Oximetry 91 L 08/28/19 09:55 Temperature 36.5 C 08/28/19 09:55 Pulse 93 H 08/28/19 11:30 Pulse 95 H 08/28/19 11:40 Respiratory Rate 12 08/28/19 11:40 Respiratory Effort Non-Labored 08/28/19 10:45 Respiratory Depth Normal 08/28/19 10:45 Respiratory Pattern Normal 08/28/19 10:45 Blood Pressure 133/60 08/28/19 11:30 Blood Pressure Mean 77 08/28/19 11:30 Blood Pressure Position Sitting 08/28/19 09:55 Pulse Oximetry 91 L 08/28/19 11:40 Oxygen Delivery Method Room Air 08/28/19 09:55 Oxygen Flow Rate 0 08/28/19 09:55 Pain Level 3 08/28/19 09:55 Comment 08/28/19 09:55 Lab/Test Results Lab/Test Results: 08/28/19 11:54 Urine - Clean Catch Urine Culture - Pending Laboratory Tests Range/Units 08/28/19 08/28/19 08/28/19 10:20 10:42 10:42 WBC (4.4-10.8) k/cumm 8.27 RBC (4.00-5.20) m/cumm 4.76 Hgb (12.0-15.5) g/dL 14.2 Hct (36.0-46.0) % 43.6 MCV (80-95) fL 91.6 MCH (27.0-33.0) pg 29.8 MCHC (32.0-36.0) g/dL 32.6 RDW (11.7-14.6) % 12.8 Plt Count (130-400) x1000/uL 279 MPV (8.0-11.0) fL 10.2 Immature Gran % 0.2 Neutrophils % 71.5 Lymphocytes % 18.3 Monocytes % 7.5 Eosinophils % 2.3 Basophils % 0.2 Absolute Neutrophils (1.2-6.7) k/cumm 5.91 Absolute Lymphocytes (1.2-3.4) k/cumm 1.51 Absolute Monocytes (0.11-0.7) k/cumm 0.62 Absolute Eosinophils (0.0-0.7) k/cumm 0.19 Absolute Basophils (0.0-0.2) k/cumm 0.02 Sodium (136-145) mmol/L 138 Potassium (3.5-5.1) mmol/L 4.0 Chloride (98-107) mmol/L 101 Carbon Dioxide (21.0-32.0) mmol/L 32.1 H Anion Gap (3-11) mmol/L 4.9 BUN (7-18) mg/dL 14 Creatinine (0.55-1.02) mg/dL 0.95 Estimated GFR/1.73 m2 (mL/min/1.73m2) 58.16 Glucose (70-100) mg/dL 293 H Calcium (8.5-10.1) mg/dL 9.2 Total Bilirubin (0.2-1.0) mg/dL 0.8 AST (15-37) U/L 12 L ALT (14-59) U/L 18 Alkaline Phosphatase (46-116) U/L 43 L Troponin I (0.00-0.06) ng/mL < 0.05 NT-Pro-B Natriuret Pep ( - 299) pg/mL 345 H Total Protein (6.4-8.2) g/dL 7.7 Albumin (3.4-5.0) g/dL 3.8 Urine Color (Yellow) Yellow Urine Clarity (Clear) Clear Urine pH (5-8) 6.5 Ur Specific [place] (1.005-1.025) 1.015 Urine Protein (Negative) mg/dL 100 H Urine Ketones (Negative) mg/dL Negative Urine Blood (Negative) Trace-intact H Urine Nitrite (Negative) Negative Urine Bilirubin (Negative) Negative Urine Urobilinogen (Up TO 0.2) EU/dL 0.2 Ur Leukocyte Esterase (Negative) Negative Urine RBC (0-2) 0-2 Urine WBC (0-5) HPF 0-2 Ur Epithelial Cells (Negative) HPF Many Urine Crystals (Negative) HPF Negative Urine Bacteria (Negative) HPF Rare Urine Casts (Negative) LPF Negative Urine Mucus (Negative) Negative Ur Culture Indicated? No/sq. contamination Urine Glucose (Negative) mg/dL Negative
--- NOTE | 2019-08-28 13:29 | DI.VRAD_ITS ---
PROCEDURE INFORMATION: Exam: CT Head Without Contrast Exam date and time: 08/28/2019 1:21 PM Clinical history: 69 years old, female; Dizziness TECHNIQUE: Imaging protocol: Computed tomography of the head without contrast. Radiation optimization: All CT scans at this facility use at least one of these dose optimization techniques: automated exposure control; mA and/or kV adjustment per patient size (includes targeted exams where dose is matched to clinical indication); or iterative reconstruction. COMPARISON: No relevant prior studies available. FINDINGS: Brain: No acute intracranial hemorrhage. There is mild diffuse heterogeneity of the white matter attenuation, consistent with chronic white matter ischemic changes. Mild cerebral atrophy Ventricles: Normal. No ventriculomegaly. Bones/joints: Unremarkable. No acute fracture. Sinuses: Mucosal thickening in the left maxillary sinus and ethmoid sinuses may represent mild sinusitis Mastoid air cells: Visualized mastoid air cells are well aerated. Soft tissues: Unremarkable. IMPRESSION: No acute intracranial hemorrhage. Dictated and Authenticated by: Gunner Charles MD. Ordering:GRACE Almeida MD
--- NOTE | 2019-08-28 13:38 | DI.VRAD_ITS ---
PROCEDURE INFORMATION: Exam: CT Maxillofacial Without Contrast Exam date and time: 08/28/2019 1:23 PM Clinical history: 69 years old, female; Other: Dizziness TECHNIQUE: Imaging protocol: Computed tomography images of the face without contrast. COMPARISON: No relevant prior studies available. FINDINGS: Orbits: Orbits are normal. Globes are unremarkable. Sinuses: Opacities in the maxillary sinuses and ethmoid sinuses may represent sinusitis. Bones/joints: No acute fracture. Soft tissues: Unremarkable. IMPRESSION: Opacities in the maxillary sinuses and ethmoid sinuses may represent sinusitis. Dictated and Authenticated by: Gunner Charles MD. Ordering:GRACE Almeida MD
[2019-08-28 13:50] LABS: Troponin I < 0.05 ng/mL (0.00-0.06)
== END 2019-08-28 14:47 | disposition home or self-care (01) ==
PROVIDERS: Emergency Provider Physician Assistant; PCP Family Medicine
DX: J01.00 Acute maxillary sinusitis, unspecified (principal); R00.0 Tachycardia, unspecified; J44.9 Chronic obstructive pulmonary disease, unspecified; I50.9 Heart failure, unspecified; E11.22 Type 2 diabetes mellitus with diabetic chronic kidney disease; I11.0 Hypertensive heart disease with heart failure; Z79.4 Long term (current) use of insulin
CPT/HCPCS: 36415; 36416; 80053; 82962; 93005; 96360; 96361; 99285; 70450; 70486; 71046; 81003; 81015; 83880; 84484; 85025; 87086; 93010

== ENCOUNTER → 2019-09-15 11:15 | Outpatient (BNVA) | payer MEDICARE, MEDICAID, SELFPAY | PROVIDERS: PCP Family Medicine; Referring Provider Family Medicine; Visit Provider Student in an Organized Health Care Education/Training Program | DX: M25.512 Pain in left shoulder (principal); M75.32 Calcific tendinitis of left shoulder; Z98.890 Other specified postprocedural states | CPT/HCPCS: 99213 ==

== ENCOUNTER 2019-11-03 10:25 | Outpatient (CLI) | payer MEDICARE, MEDICAID, SELFPAY ==
[2019-11-03 13:13] LABS: Abs Immature Grans 0.02 k/cumm (0.0-0.09); Absolute Basophil Count 0.01 k/cumm (0.0-0.2); Absolute Lymphocyte Count 1.31 k/cumm (1.2-3.4); Absolute Monocyte Count 0.63 k/cumm (0.11-0.7); Absolute Neutrophil Count 6.48 k/cumm (1.2-6.7); Basophils % 0.1; Eosinophils % 2.3; HCT 44.5 % (36.0-46.0); HGB 14.5 g/dL (12.0-15.5); Immature Grans % 0.2 %; Lymphocytes % 15.1; Mean Corp. HGB Concentration 32.6 g/dL (32.0-36.0); Mean Corpuscular Hemoglobin 29.3 pg (27.0-33.0); Mean Corpuscular Volume 89.9 fL (80-95); Mean Platelet Volume 11.2 fL (8.0-11.0); Monocytes % 7.3; Platelet Count 237 x1000/uL (130-400); RBC 4.95 m/cumm (4.00-5.20); RBC Distribution Width 13.1 % (11.7-14.6); White Blood Cell Count 8.65 k/cumm (4.4-10.8)
[2019-11-03 13:32] LABS: ALT 21 U/L (14-59); AST 14 U/L (15-37); Albumin 3.9 g/dL (3.4-5.0); Alkaline Phosphatase 46 U/L (46-116); Anion Gap 11.2 mmol/L (3-11); BUN 15 mg/dL (7-18); Bilirubin, Total 0.8 mg/dL (0.2-1.0); CO2 31.8 mmol/L (21.0-32.0); CREATININE 0.98 mg/dL (0.55-1.02); Calcium 9.2 mg/dL (8.5-10.1); Calculated LDL 101 mg/dL; Chloride 99 mmol/L (98-107); Cholesterol 169 mg/dL (<200); Estimated GFR 56.11 (mL/min/1.73m2); Glucose 268 mg/dL (74-106); HDL Cholesterol 44 mg/dL (40-60); Magnesium 1.5 mg/dL (1.8-2.4); Potassium 4.1 mmol/L (3.5-5.1); Sodium 142 mmol/L (136-145); Total Protein 7.1 g/dL (6.4-8.2); Triglyceride 124 mg/dL (<150)
[2019-11-03 13:39] LABS: TSH 1.11 uIU/mL (0.36-3.74)
[2019-11-03 13:58] LABS: Hemoglobin A1C 8.9 % (3.8-5.6)
[2019-11-03 14:35] LABS: COMMENT (LAB VIEW ONLY) < 13.00 mg/dL
== END 2019-11-03 10:45 ==
PROVIDERS: PCP Family Medicine; Visit Provider Family Medicine
DX: E11.9 Type 2 diabetes mellitus without complications (principal); E83.42 Hypomagnesemia; R53.83 Other fatigue
CPT/HCPCS: 36415; 80053; 80061; 82043; 82570; 83036; 83735; 84443; 85025

== ENCOUNTER → 2019-11-07 10:39 | Outpatient (BNVA) | payer MEDICARE, MEDICAID, SELFPAY | PROVIDERS: PCP Family Medicine; Referring Provider Family Medicine; Visit Provider Student in an Organized Health Care Education/Training Program | DX: M25.512 Pain in left shoulder (principal); M75.32 Calcific tendinitis of left shoulder; Z98.890 Other specified postprocedural states | CPT/HCPCS: 99212; 99213 ==

== ENCOUNTER → 2019-11-11 11:24 | Outpatient (BNVA) | payer MEDICARE, MEDICAID, SELFPAY | PROVIDERS: PCP Family Medicine; Referring Provider Family Medicine; Visit Provider Surgery | DX: K43.9 Ventral hernia without obstruction or gangrene (principal); J44.9 Chronic obstructive pulmonary disease, unspecified; F17.210 Nicotine dependence, cigarettes, uncomplicated; E11.42 Type 2 diabetes mellitus with diabetic polyneuropathy; E11.319 Type 2 diabetes mellitus with unspecified diabetic retinopathy without macular edema; Z79.84 Long term (current) use of oral hypoglycemic drugs | CPT/HCPCS: 99214 ==

== ENCOUNTER 2019-11-25 08:24 | Outpatient (REF) | payer MEDICARE, MEDICAID, SELFPAY ==
[2019-11-26 14:23] LABS: Campylobacter PCR Negative (Negative); Salmonella PCR Negative (Negative); Shiga Toxin PCR Negative (Negative); Shigella/Enteroinvasive Ecoli Negative (Negative)
== END 2019-11-25 08:44 ==
LOC: NCHCN 08:24
PROVIDERS: PCP Family Medicine; Visit Provider Family Medicine
DX: K52.9 Noninfective gastroenteritis and colitis, unspecified (principal)
CPT/HCPCS: 87329; 87505; 82272; 87324

== ENCOUNTER 2019-12-01 01:19 | Outpatient (CLI) | payer MEDICARE, MEDICAID, SELFPAY ==
--- NOTE | 2019-12-01 07:30 | DI.US_ITS ---
APPROVED REPORT EXAM: Comprehensive 2D, Doppler, and color-flow Echocardiogram Patient Location: Out-Patient [place] Knitter: Rhoda Boss RDCS (AE) Rhythm: NSR Indications: CHF with preserved EF in atypical CP . chronic CHF. i50.9 heart failure Conclusion Left Ventricle : The left ventricle is normal size. The left ventricular systolic function is normal. The left ventricular ejection fraction is within the normal range. Mild left ventricular hypertrophy . There is normal LV segmental wall motion. There is grade 2 diastolic dysfunction. LVEF is estimate d to be 55-60%. Right Ventricle : The right ventricle is normal size. The right ventricular systolic function appears normal. Atria : Left atrium is mildly dilated. The right atrium size is normal. Aortic Valve : Aortic valve is trileaflet. The Aortic annulus is sclerotic. Aortic sclerosis without stenosis. No aortic regurgitation is present. Mitral Valve : Mitral valve leaflets are mildly thickened. Trace to mild mitral regurgitation. No torsten dence of mitral valve stenosis. Tricuspid Valve : Tricuspid valve is not well visualized. Trace tricuspid regurgitation. The IVC is dilated, but collapses >50% with inispiration. Estimated RVSP is 23-31 mmHg. Compared to echocardiogram dated 08/15/2015: Patient's ejection fraction has improved from 45% to 55% and wall motion abnormalities have resolved. Otherwise, there are no significant changes. Wall motion Left Ventricle The left ventricle is normal size. The left ventricular systolic function is normal. The left ventric ular ejection fraction is within the normal range. Mild left ventricular hypertrophy. There is normal LV segmental wall motion. There is grade 2 diastolic dysfunction. LVEF is estimated to be 55-60%. Right Ventricle The right ventricle is normal size. The right ventricular systolic function appears normal. Atria Left atrium is mildly dilated. The right atrium size is normal. Aortic Valve Aortic valve is trileaflet. The Aortic annulus is sclerotic. Aortic sclerosis without stenosis. No ao rtic regurgitation is present. Mitral Valve Mitral valve leaflets are mildly thickened. No evidence of mitral valve stenosis. Trace to mild jami l regurgitation. Tricuspid Valve Tricuspid valve is not well visualized. Trace tricuspid regurgitation. Pulmonic Valve Trace pulmonic regurgitation. Great Vessels The aortic root is normal in size. The ascending aorta is top normal in size. The IVC is dilated, but collapses >50% with inispiration. Estimated RVSP is 23-31 mmHg. Pericardium There is no pericardial effusion. 2D Dimensions IVSd 1.25 cm F: 0.6-1.0 LV EDV A2C 71.3 mL PWd 1.15 cm F: 0.6 - 1.0 LV EDV A4C 61.2 mL LVDd 4.70 cm F: 3.8 - 5.2 LA Volume Index Biplane 36.7 mL/m2 LVDs 2.85 cm F: 2.2 - 3.5 LA Area A4C 20.48 cm2 Aortic Root 2.80 cm F: 2.7 - 3.3 LA Area A2C 19.84 cm2 RA Area A4C 15.06 cm2 EF AP4 52.6 % LVOT 2.00 cm (M/F) 1.5-2.5 EF AP2 59.7 % Ascending Aorta 3.42 cm F: 2.3 - 3.1 EF BP 58.4 % LVEF (Teich) 69.7 % IVC 2.57 cm LVEF (Claudio's) 58.39 % F: 54 - 74 TAPSE 1.70 cm (M/F) <1.7 LV Volume 53.87 mL F: 46 - 106 LV Volume Index 29.92 mL/m2 F: 29 - 61 FS 39.20 % LV Diastology MV E' medial 0.058 (>0.07 m/s) E/A Ratio 0.7 LV E/e MED 16.05 (<14) TR Peak Velocity 2.41 m/s MV E' lateral 0.053 (>0.1 m/s) LV E/e LAT 17.60 (<14) LA vol/ BSA A2C s A-L 34.9 mL/m2 LA vol/ BSA A4C s A-L 37.8 mL/m2 Aortic Valve LVOT Area 3.29 cm2 AoV Area Vmax 1.78 cm2 LVOT Vmax 0.87 m/s AoV Area/ BSA (Vmax) 0.99 cm2/m2 LVOT Mean Med. 0.69 m/s STEPHAN Mean Med. 1.85 cm2 LVOT Peak Gr. 3.0 mmHg STEPHAN Mean Med. Index 1.03 cm2/m2 LVOT Mean Gr. 2.0 mmHg LVOT VTI 0.188 m AoV Vmax 1.61 (0.5-1.3 m/s) AoV Mean Med. 1.23 m/s AoV Peak Grad 10.3 mmHg LVOT SV 61.64 mL AoV Mean Grad 6.5 (<5 mmHg) AoV VTI 0.348 (0.18-0.25 m) AoV Area VTI 1.77 (2.5-4.5 cm2) AoV Area/ BSA (VTI) 0.98 cm/m2 Mitral Valve MV E Max Med. 0.93 (0.4-1.3 m/s) RVOT Peak Gr. 3.12 mmHg MV A Velocity 1.30 (0.4-1.3 m/s) RVOT Mean Gr. 1.70 mmHg E/A Ratio 0.70 MV Decel. Time 188 (160-240 msec) MV PHT 54 msec MVA PHT 4.00 cm2 PV Peak Velocity 0.93 (0.5-1.5 m/s) RVOT Peak Med. 0.88 m/s RVOT VTI 0.133 m Tricuspid Valve TR P. Gradient 23.2 mmHg TV Regurg Vmax 2.41 m/s RAP Estimate 8.00 mmHg RVSP 31.3 mmHg
== END 2019-12-01 01:39 ==
PROVIDERS: PCP Family Medicine; Visit Provider Family Medicine
DX: I50.9 Heart failure, unspecified (principal); R06.02 Shortness of breath; R07.9 Chest pain, unspecified
CPT/HCPCS: 93306

== ENCOUNTER → 2019-12-19 09:31 | Outpatient (BNVA) | payer MEDICARE, MEDICAID, SELFPAY | PROVIDERS: PCP Family Medicine; Referring Provider Family Medicine; Visit Provider Internal Medicine Cardiovascular Disease | DX: R69 Illness, unspecified (principal) ==

== ENCOUNTER 2019-12-19 09:47 | Outpatient (CLI) | payer MEDICARE, MEDICAID, SELFPAY | END 2019-12-19 10:07 | PROVIDERS: PCP Family Medicine; Visit Provider Internal Medicine Cardiovascular Disease | DX: Z01.810 Encounter for preprocedural cardiovascular examination (principal); I11.0 Hypertensive heart disease with heart failure; E11.42 Type 2 diabetes mellitus with diabetic polyneuropathy; I50.9 Heart failure, unspecified; J44.9 Chronic obstructive pulmonary disease, unspecified; F17.210 Nicotine dependence, cigarettes, uncomplicated | CPT/HCPCS: 99214; 93005; 93010 ==

== ENCOUNTER → 2019-12-23 11:17 | Outpatient (BNVA) | payer MEDICARE, MEDICAID, SELFPAY ==
--- NOTE | 2019-12-23 15:09 | PDOC.ANES ---
Date of service: 12/23/19 Time of Service: 15:09 Anesthesia Note Report Anesthesia Note: I reviewed Mrs. Pratt' chart per Dr. Nicolas's request and also discussed the case with Dr. Nicolas herself. Mrs. Pratt' echo results were not concerning, and cardiac clearance was obtained. Dr Nicolas and I are both considerably concerned with the patient's respiratory status and feel that a laparoscopic procedure would not be the preferable way to proceed. I worry that it may be difficult to extubate her post op due to her severe COPD. I also agree that she needs to stop smoking and lower her HgA1C as Dr. Nicolas has requested, and also I feel that her BP needs to be under tighter control prior to proceeding with any elective procedure. If the hernias can be repaired with an open approach with nerve block and heavy sedation, that would be more reasonable given the patient's comorbidities.
== END ==
PROVIDERS: PCP Family Medicine; Referring Provider Family Medicine; Visit Provider Surgery
DX: E11.9 Type 2 diabetes mellitus without complications (principal); K43.9 Ventral hernia without obstruction or gangrene; Z79.84 Long term (current) use of oral hypoglycemic drugs; J44.9 Chronic obstructive pulmonary disease, unspecified; F17.210 Nicotine dependence, cigarettes, uncomplicated
CPT/HCPCS: 99213

== ENCOUNTER 2020-01-10 19:44 | Inpatient (IN) | payer MEDICARE, MEDICAID, SELFPAY ==
[2020-01-10] VITALS (11 sets, daily range): BP systolic 130–153; BP diastolic 55–77; PULSE 106–120; RESP 20–37; TEMP 36.6–38.2; O2SAT 90–97
[2020-01-10] MEDS: Normal Saline 1,000 ML 1000 ML IV (20:20)
--- NOTE | 2020-01-10 20:24 | ED.GENADUL_ITS ---
Discharge Plan Disposition Patient Disposition: [facility] INPATIENT Condition: Stable Discharge Details Chief Complaint: Dizzy/Sync Clinical Impression: Fever, Community acquired pneumonia, Hyponatremia, Hypomagnesemia Primary Care Provider: Jnae Johnson ED Provider: Roly Rey Home Meds and New Rx's Prescriptions: No Action cetirizine 10 mg tablet 10 mg PO DAILY Qty: 90 RF: 4 citalopram 10 mg tablet 10 mg PO DAILY Qty: 30 RF: 3 (DME) blood-glucose meter 1 EACH misc 1 ea Miscellaneous AC & HS Qty: 1 RF: 0 triamcinolone acetonide 15 GM cream 1 applic Topical BID PRNQty: 1 RF: 3 Slow-Mag 71.5 mg tablet,delayed release (DR/EC) 71.5 mg PO BID Qty: 60 RF: 2 omeprazole 20 mg capsule,delayed release(DR/EC) 20 mg PO DAILY Qty: 90 RF: 4 amlodipine 5 mg tablet 5 mg PO DAILY Qty: 90 RF: 4 valacyclovir 500 mg tablet 500 mg PO DAILY Qty: 90 RF: 3 Hold Instructions: Home Medication placed on hold at Doctor's office furosemide 20 mg tablet 40 - 60 mg PO DAILY Qty: 90 RF: 6 metformin 500 mg tablet 1,000 mg PO BID Qty: 120 RF: 12 (DME) lancets [Soft Touch Lancets] Misc 1 ea Miscellaneous BID Qty: 100 RF: 3 (DME) OneTouch Ultra Test Strip 1 ea Miscellaneous BID Qty: 100 RF: 3 losartan 100 mg tablet 150 mg PO DAILY Qty: 135 RF: 4 Flonase Sensimist 27.5 mcg/actuation spray,suspension 2 spray MARAH DAILY Qty: 5.9 RF: 0 Medical Decision Making 69 yo female with hx of htn, dm, chf, smoker, who comes in with chief complaint of worsening weankess and intermittent fevers for a week. Today she was getting water out of the fridge and dropped the water and fell and was too weak to get up. She denies any sick contacts and no recent travel. She has had a cough and had n/v 2 days ago but none today. No neck stiffness, has mild headache and unsure if this was before or after the fall. No rashes. She has diminished breath sounds at the bases bilaterally, soft nontender abdomen and nonfocal exam, does appear fatigued. She is noted to have a fever and does appear dehydrated. Will obtain blood work, eval for influenza, cxr to evaluate for infiltrates and because of her fall and pain ct head/c spine. labs show sodium of 129, mag of 1.3, and wbc of 15. Imaging of head and c spine shows no acute findings. Xray read as blunting of costophrenic angle, flu test negative. She remains HD stable HR now 110. Feel her symptoms are respiratory , will treat for CAP and admit Differential Diagnosis Differential Diagnosis: flu, pna, electrolyte abnormality Medical Records Medical records reviewed: Yes I reviewed the patient's medical records. Imaging Data Radiologic Study: Attestation: I personally reviewed and interpreted this imaging study as follows: Imaging: X-Ray Radiologist's impression: IMPRESSION: 1. Minor atelectasis at the left CP angle. 2. COPD. 3. Bilateral lung scarring. 4. No acute infiltrates Radiologic Study #2: Attestation: I personally reviewed and interpreted this imaging study as follows: Imaging: CT Scan Radiologist's impression: no acute findings Lab Data Lab results reviewed: Yes I reviewed the patient's lab results. ECG Data Attestation: I personally reviewed and interpreted this ECG (s) as follows: Prior ECG tracings: not available for review Interpretation: sinus tachycardia, rate of 123, pr 144, qtc 461 HPI General Mode of arrival: ambulatory . Date/Time Provider Initiated Documentation: 01/10/20 20:01 . Limitations to Documentation: no limitations . Information obtained by: patient . History of Present Illness 69 year old F presents to the emergency department with the chief complaint of fever, and it has been intermittent. No relieving factors improve symptom(s), No exacerbating factors reported . Patient notes malaise. Patient did receive the following treatments prior to arrival, none Related Data Home Medications Medication Instructions Recorded Confirmed blood-glucose meter #1 ea 02/07/14 12/23/19 triamcinolone acetonide 1 applic TOPICAL BID PRN #1 tube 07/20/14 01/10/20 magnesium chloride 71.5 mg 71.5 mg PO BID #60 tab-cap 02/02/19 01/10/20 (magnesium chloride) tablet,delayed release omeprazole 20 mg capsule,delayed 20 mg PO DAILY #90 tab-cap 06/02/19 01/10/20 release citalopram 10 mg tablet 10 mg PO DAILY #30 tab 06/23/19 12/23/19 amlodipine 5 mg tablet 5 mg PO DAILY #90 tab-cap 08/22/19 01/10/20 valacyclovir 500 mg tablet 500 mg PO DAILY #90 tab 08/22/19 12/23/19 fluticasone furoate [Flonase 2 spray MARAH DAILY #5.9 ml 08/28/19 01/10/20 Sensimist] furosemide 20 mg tablet 40 - 60 mg PO DAILY #90 tab-cap 09/12/19 01/10/20 cetirizine 10 mg tablet 10 mg PO DAILY #90 tab-cap 09/22/19 12/23/19 metformin 500 mg tablet 1,000 mg PO BID #120 tab 10/17/19 01/10/20 blood sugar diagnostic #100 strip 10/25/19 12/23/19 lancets #100 each 10/25/19 12/23/19 losartan 100 mg tablet 150 mg PO DAILY #135 tab 11/21/19 01/10/20 Previous Rx's Medication Instructions Recorded omeprazole 20 mg capsule,delayed 20 mg PO DAILY #90 tab-cap 06/02/19 release citalopram 10 mg tablet 10 mg PO DAILY #30 tab 06/23/19 amlodipine 5 mg tablet 5 mg PO DAILY #90 tab-cap 08/22/19 valacyclovir 500 mg tablet 500 mg PO DAILY #90 tab 08/22/19 fluticasone furoate [Flonase 2 spray MARAH DAILY #5.9 ml 08/28/19 Sensimist] furosemide 20 mg tablet 40 - 60 mg PO DAILY #90 tab-cap 09/12/19 cetirizine 10 mg tablet 10 mg PO DAILY #90 tab-cap 09/22/19 metformin 500 mg tablet 1,000 mg PO BID #120 tab 10/17/19 blood sugar diagnostic #100 strip 10/25/19 lancets #100 each 10/25/19 losartan 100 mg tablet 150 mg PO DAILY #135 tab 11/21/19 Allergies Allergy/AdvReac Type Severity Reaction Status Date / Time codeine AdvReac Severe Cardiac Verified 01/10/20 20:18 Dysrythmia indomethacin AdvReac Intermediate Cardiac Verified 01/10/20 20:18 Dysrythmia lisinopril AdvReac cough Verified 01/10/20 20:18 General Stated Complaint: Dizzy/Sync BELKIS: 2 Review of Systems All systems reviewed & are unremarkable except as noted in HPI and below Cardiovascular Cardiovascular: Denies chest pain and Denies dyspnea Respiratory Respiratory: Denies dyspnea Gastrointestinal Gastrointestinal: Denies abdominal pain and Denies vomiting Genitourinary Genitourinary: Denies dysuria Integumentary/Breasts Skin/Breast: Denies rash [facility] Social History Smoking/Tobacco Use Status: Former Tobacco Use Tobacco: How many years used: 60 Alcohol Intake: never Drug use: Never Substance use type: does not use 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 Pets and animals: Yes Pets and animals: cat(s) Current gender identity: female What type of physical activity do you participate in: none Irma/Caodaism: Worship Special irma needs: No Do you feel safe at home: Yes Do you feel safe in your relationship?: Yes Exam Const General: no acute distress Orientation: alert HENMT Head: normal to inspection Ears: external ears normal General nose exam: external nose normal Mouth: moist mucous membranes Eyes General: appearance normal, both eyes and all related structures Neck Neck: normal visual inspection Resp Effort & Inspection: normal respiratory effort and able to speak in complete sentences Cardio Rate: tachycardic GI Palpation: soft and nontender Skin General skin exam: no rashes or lesions noted Neuro General: alert and oriented x3 Extrem General: normal to inspection Psych Mental Status: mental status grossly normal Course Vital Signs Vital signs: Vital Signs Temperature 38.2 C H 01/10/20 20:13 Pulse 120 H 01/10/20 20:13 Respiratory Rate 34 H 01/10/20 20:13 Blood Pressure 130/77 01/10/20 20:13 Pulse Oximetry 90 L 01/10/20 20:13 Temperature 38.2 C H 01/10/20 20:13 Temperature Source Temporal Artery Scan 01/10/20 20:13 Pulse 120 H 01/10/20 20:13 Respiratory Rate 34 H 01/10/20 20:13 Respiratory Effort 01/10/20 20:13 Blood Pressure 130/77 01/10/20 20:13 Blood Pressure Position Supine 01/10/20 20:13 Pulse Oximetry 90 L 01/10/20 20:13 Oxygen Delivery Method Room Air 01/10/20 20:13 Oxygen Flow Rate 0 01/10/20 20:13 Lab/Test Results Lab/Test Results: 01/10/20 20:19 Blood Blood Culture - Pending 01/10/20 20:19 Blood Blood Culture - Pending
[2020-01-10 20:41] LABS: Lactate 1.3 mmol/L (0.6-1.4)
--- NOTE | 2020-01-10 20:45 | DI.CT_ITS ---
EXAM: CT HEAD CERVICAL SPINE WO CLINICAL HISTORY: fall, pain. TECHNIQUE: Imaging Protocol: Axial computed tomography images with coronal and sagittal reformatted images were created and reviewed COMPARISON: CT SINUS WO from 08/28/2019 FINDINGS: Head CT Ventricles and Extra axial spaces: Normal in size and morphology for the patient's age. Hemorrhage: None. Cerebral parenchyma: Normal. Midline shift: None. Brainstem/Cerebellum: Normal. Calvarium: Normal. Visualized Paranasal sinuses/Mastoids: Clear. IMPRESSION: No acute abnormality. FINDINGS: Cervical Spine CT BONES: Vertebral body heights are maintained. Intervertebral disc spaces are normal. Alignment is nor mal. There is no evidence of acute fracture. SOFT TISSUES: No paraspinal hematoma. The airway appears intact. Degenerative disc changes and facet degenerative changes are seen . IMPRESSION: Degenerative changes, no acute abnormality. RADIATION DOSE DELIVERED: DATA REPOSITORY: All CT scans at this facility are submitted to the National Radiology Data Registry (NRDR) Dose Index Registry (DIR) with the [employer] (ACR). RADIATION OPTIMIZATION: All CT scans at this facility use at least one of these dose optimization te chniques: automated exposure control; mA and/or kV adjustment per patient size (includes targeted exa ms where dose is matched to clinical indication); or iterative reconstruction.
[2020-01-10 20:50] LABS: Abs Immature Grans 0.13 k/cumm (0.0-0.09); Absolute Monocyte Count 1.02 k/cumm (0.11-0.7); Basophils % 0.1; HGB 12.7 g/dL (12.0-15.5); Immature Grans % 0.9 %; Lymphocytes % 3.6; Mean Corp. HGB Concentration 33.4 g/dL (32.0-36.0); Mean Corpuscular Hemoglobin 28.2 pg (27.0-33.0); Mean Corpuscular Volume 84.4 fL (80-95); Mean Platelet Volume 10.2 fL (8.0-11.0); Monocytes % 6.7; Neutrophils % 88.7; Platelet Count 279 x1000/uL (130-400); RBC Distribution Width 12.3 % (11.7-14.6); White Blood Cell Count 15.18 k/cumm (4.4-10.8)
[2020-01-10 20:55] LABS: Absolute Basophil Count 0.02 k/cumm (0.0-0.2); Absolute Lymphocyte Count 0.55 k/cumm (1.2-3.4); Absolute Neutrophil Count 13.46 k/cumm (1.2-6.7)
--- NOTE | 2020-01-10 20:55 | DI.RAD_ITS ---
EXAM: XR CHEST 2V PA LATERAL CLINICAL HISTORY: cough and fever TECHNIQUE: 2D digital imaging was performed. COMPARISON: XR CHEST 2V PA LATERAL from 08/28/2019 CT HEAD CERVICAL SPINE WO from 01/10/2020 FINDINGS: MEDIASTINUM: Normal. HEART: Normal. Calcification at the aortic arch. PULMONARY VASCULATURE: Normal. LUNGS: There is linear atelectasis at the of the left lung base. PLEURAL SPACE: No pleural effusion or pneumothorax. BONE:There are degenerative changes in the thoracic spine. IMPRESSION: No acute pulmonary findings. DATA REPOSITORY: RADIATION DOSE DELIVERED:
[2020-01-10 20:57] LABS: INR 1.1 (0.9-1.1); Prothrombin Time 10.7 sec (9.3-11.0)
[2020-01-10 20:59] LABS: PTT Activated 28.3 sec (21.0-31.4)
[2020-01-10 21:00] LABS: ALT 24 U/L (14-59); AST 30 U/L (15-37); Albumin 2.9 g/dL (3.4-5.0); Alkaline Phosphatase 67 U/L (46-116); BUN 19 mg/dL (7-18); Bilirubin, Total 0.9 mg/dL (0.2-1.0); CREATININE 1.24 mg/dL (0.55-1.02); Calcium 8.7 mg/dL (8.5-10.1); Chloride 91 mmol/L (98-107); Estimated GFR 42.76 (mL/min/1.73m2); Glucose 341 mg/dL (74-106); Magnesium 1.3 mg/dL (1.8-2.4); Potassium 3.4 mmol/L (3.5-5.1); Sodium 129 mmol/L (136-145); Total Protein 7.4 g/dL (6.4-8.2)
--- NOTE | 2020-01-10 21:15 | DI.VRAD_ITS ---
PROCEDURE INFORMATION: Exam: XR Chest, 2 Views Exam date and time: 01/10/2020 8:55 PM Age: 69 years old Clinical indication: Cough and fever; Patient HX: Cough, fever TECHNIQUE: Imaging protocol: XR of the chest Views: 2 views. COMPARISON: CR XR CHEST 2V PA LATERAL 08/28/2019 10:44 AM FINDINGS: Lungs: There is hyperinflation bilaterally consistent with underlying COPD. Some areas of bilateral lung scarring are noted. Minor atelectasis at the left CP angle. There are no areas of acute infiltrate or edema. No suspicious nodules or focal lung lesions. Pleural space: Unremarkable. No pleural effusion. No pneumothorax. Heart/Mediastinum: Unremarkable. No cardiomegaly. Bones/joints: Unremarkable. IMPRESSION: 1. Minor atelectasis at the left CP angle. 2. COPD. 3. Bilateral lung scarring. 4. No acute infiltrates. Dictated and Authenticated by: Fausto Silva MD. Ordering:MILA Dunham MD
--- NOTE | 2020-01-10 21:23 | DI.VRAD_ITS ---
PROCEDURE INFORMATION: Exam: CT Head Without Contrast Exam date and time: 01/10/2020 8:25 PM Age: 69 years old Clinical indication: Injury or trauma; Initial encounter; Blunt trauma (contusions or hematomas); Without loss of consciousness; Injury date: 01/10/20; Injury details: Fall, headache, pain TECHNIQUE: Imaging protocol: Computed tomography of the head without contrast. Radiation optimization: All CT scans at this facility use at least one of these dose optimization techniques: automated exposure control; mA and/or kV adjustment per patient size (includes targeted exams where dose is matched to clinical indication); or iterative reconstruction. COMPARISON: CT HEAD WO 08/28/2019 1:23 PM FINDINGS: Brain: Age-related atrophy. No hemorrhage. Unremarkable white matter. No mass effect. Ventricles: Normal. No ventriculomegaly. Bones/joints: Unremarkable. No acute fracture. Sinuses: Visualized sinuses are unremarkable. No fluid levels. Mastoid air cells: Visualized mastoid air cells are well aerated. Soft tissues: Unremarkable. IMPRESSION: 1. No acute intracranial abnormality. 2. Age-related atrophy. 3. Stable since 08/28/2019. PROCEDURE INFORMATION: Exam: CT Cervical Spine Without Contrast Exam date and time: 01/10/2020 8:25 PM Age: 69 years old Clinical indication: Injury or trauma; Initial encounter; Blunt trauma (contusions or hematomas); Without loss of consciousness; Injury date: 01/10/20; Injury details: Fall, headache, pain TECHNIQUE: Imaging protocol: Computed tomography images of the cervical spine without contrast. Radiation optimization: All CT scans at this facility use at least one of these dose optimization techniques: automated exposure control; mA and/or kV adjustment per patient size (includes targeted exams where dose is matched to clinical indication); or iterative reconstruction. COMPARISON: CT HEAD WO 08/28/2019 1:23 PM FINDINGS: Vertebrae: Multilevel degenerative disease. Degenerative uncovertebral joint and facet joint disease. Vertebral body osteophytes and degenerative disc space change. Discs/Spinal canal/Neural foramina: Multilevel degenerative disc disease of moderate to severe nature. No april spinal stenosis or foraminal stenosis evident. Soft tissues: Unremarkable. Soft tissues: Atherosclerotic calcium of bilateral carotid arteries.. Lungs: Lung apices are normal. IMPRESSION: 1. No acute findings. 2. Degenerative cervical spine change. 3. No fracture. Dictated and Authenticated by: Fausto Silva MD. Ordering:MILA Dunham MD
[2020-01-10] MEDS: cefTRIAXone 2 GM/50 ML BAG IVPB (22:03)
--- NOTE | 2020-01-10 22:09 | NUR.NOTE ---
Nursing Note:Patient initially refused O2 via NC, was satting 89-90%. She did agree to O2 when she returned from [place]. O2 applied at 2 lpm via NC, O2 sat went up to 95-96%
--- NOTE | 2020-01-10 22:12 | W.PM.HP.N ---
Date of service: 01/10/20 Time of Service: 22:12 Assessment and Plan Assessment and plan (1) Community acquired pneumonia: Start date: 01/10/20 Status: Acute Assessment and plan: this is a 69-year-old lady who had a 1 week history of fever and cough with generalized weakness at home with what sounds like a viral illness such as the influenza. She was negative for influenza screen and have been ill for more than a week not qualifying for treatment for flu. Imaging did reveal probable left lower lobe pneumonia which was treated with Rocephin and doxycycline. She stated that she had not been smoking for about a week and did not want a NicoDerm patch. She is a full code. She does plan to return home. She will complete treatment and aggressive respiratory care but no steroids for now since she is not having significant wheeze with increased nebulizer treatments. If her respiratory status worsen she could receive IV steroids. She also is dehydrated with hyponatremia and electrolyte abnormalities which will be supplemented. Follow-up lab in the morning. Qualifiers: Laterality: left Lung location: lower lobe of lung Qualified Code(s): J18.9 - Pneumonia, unspecified organism (2) Dehydration: Start date: 01/10/20 Status: Acute Assessment and plan: Increased creatinine with electrolyte abnormalities with IV hydration and IV supplements and lab monitoring in the morning. Adjust supplements accordingly. Watch for fluid overload with patient having a history of CHF though her last echocardiogram was reassuring. (3) Hyponatremia: Start date: 01/10/20 Status: Acute Assessment and plan: Normal saline IV overnight and to follow-up lab adjusting accordingly. This may be secondary to her respiratory status. (4) Type II diabetes mellitus with complication, uncontrolled: Status: Chronic Assessment and plan: Patient has been intolerant of most treatments for diabetes and is poorly controlled with her hemoglobin A1c being above 8. We will do glucometers before meals and at bedtime with [place] short acting insulin coverage prior to meals and at night. History of Present Illness History of Present Illness Chief Complaint: Worsening weakness and fever for a week Narrative: This is a 69-year-old lady who still smokes tobacco and has a history of diabetes on oral therapy only, hypertension and CHF with a preserved left ventricular ejection fraction by last echocardiogram who presented with a one-week history of intermittent fever and chills with increasing weakness and falls with dropping objects when she was at her refrigerator. She lives alone and is usually independent. She was attended by her daughter. In the ED she was evaluated for possible influenza with a negative flu screen but chest x-ray did show possible left lower lobe infiltrates with patient having lung findings consistent with acute me acquired pneumonia. Risk factors would be that she is a smoker and he was becoming progressively weak with cough. She did fall and imaging of his head and spine were negative. She denies any loss of consciousness. He also found to be dehydrated with hyponatremia, hypomagnesemia and hypokalemia with an elevated white blood cell count. She was tachycardic. She did not quite meet criteria for sepsis syndrome. She was found to be febrile with a temperature above 38 degrees centigrade. Review of Systems Narrative: 13 point review of systems otherwise unrevealing or stable. Patient had no significant weight loss. She had no complaints or GI complaints and denied to decrease urinary output but she did feel dry. [facility] Medical History (Updated 01/11/20 @ 00:57 by Selvin Jorge) Anxiety (Inactive) Calcaneal spur (Inactive) Calcific tendinitis of left shoulder (Inactive) Injected: 06/08/2019 Chronic congestive heart failure (Inactive) echo.: EF 45-50% nuclear stress test negative; Chronic obstructive pulmonary disease (Inactive 09/19/15) 1st PFTs -2014: severe copd Chronic systolic congestive heart failure, NYHA class 2 (Inactive 09/16/15) Diabetes mellitus type 2, noninsulin dependent (Inactive) diabetic nephropathy : 39.3 microalb./ no neuropathy Diabetes mellitus, insulin dependent (IDDM), controlled Diabetic nephropathy Essential hypertension Essential hypertension (Inactive 12/23/13) Heart failure History of alcoholism (Inactive) Hyperlipidemia Injury of foot (Inactive 10/01/03) Iron deficiency anemia (Inactive) Moderate nonproliferative diabetic retinopathy (Inactive 09/13/12) 11/15/14; OPTICAL EXPRESSIONS; INCREASE IN RETINOPATHY SINCE PREVIOUS VISIT (RIGHT EYE) -2017 Dr.shippee forte bilat.db retinopathy 02/08/19; [facility]; MILD RETINOPATHY-kb Normal colonoscopy (Acute 07/30/18) Dr White, repeat in 10 years Preoperative cardiovascular examination (Inactive) Pulmonary emphysema (Inactive 09/16/15) 1st PFTs 11-2015: pt refused to complete with post-bronchodil. 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 Pets and animals: Yes Pets and animals: cat(s) Current gender identity: female What type of physical activity do you participate in: none Irma/Adventism: Buddhism Special irma needs: No Do you feel safe at home: Yes Do you feel safe in your relationship?: Yes Meds Home Medications and Allergies Home Medications Medication Instructions Recorded Confirmed Type blood-glucose meter #1 ea 02/07/14 12/23/19 History triamcinolone acetonide 1 applic TOPICAL BID PRN #1 tube 07/20/14 01/10/20 History magnesium chloride 71.5 mg 71.5 mg PO BID #60 tab-cap 02/02/19 01/10/20 History (magnesium chloride) tablet,delayed release omeprazole 20 mg capsule,delayed 20 mg PO DAILY #90 tab-cap 06/02/19 01/10/20 Rx release citalopram 10 mg tablet 10 mg PO DAILY #30 tab 06/23/19 12/23/19 Rx amlodipine 5 mg tablet 5 mg PO DAILY #90 tab-cap 08/22/19 01/10/20 Rx valacyclovir 500 mg tablet 500 mg PO DAILY #90 tab 08/22/19 12/23/19 Rx fluticasone furoate [Flonase 2 spray MARAH DAILY #5.9 ml 08/28/19 01/10/20 Rx Sensimist] furosemide 20 mg tablet 40 - 60 mg PO DAILY #90 tab-cap 09/12/19 01/10/20 Rx cetirizine 10 mg tablet 10 mg PO DAILY #90 tab-cap 09/22/19 12/23/19 Rx metformin 500 mg tablet 1,000 mg PO BID #120 tab 10/17/19 01/10/20 Rx blood sugar diagnostic #100 strip 10/25/19 12/23/19 Rx lancets #100 each 10/25/19 12/23/19 Rx losartan 100 mg tablet 150 mg PO DAILY #135 tab 11/21/19 01/10/20 Rx Allergies Allergy/AdvReac Type Severity Reaction Status Date / Time codeine AdvReac Severe Cardiac Verified 01/10/20 20:18 Dysrythmia indomethacin AdvReac Intermediate Cardiac Verified 01/10/20 20:18 Dysrythmia lisinopril AdvReac cough Verified 01/10/20 20:18 Exam Narrative Exam Narrative: General: Patient appears older than her age, smells of tobacco, is in moderate distress from her generalized weakness and fever, alert and oriented at least x2 to person and place. She does have a hoarse voice. Her affect is flattened with decreased eye contact. HEENT: Normocephalic, coarsened facial features, eyes with pupils equal and reactive to light symmetrically, extraocular movement intact and sclera anicteric. Oropharynx with dry oral mucosa. Neck: Supple without JVD. Lungs: Bronchovesicular breath sounds diffusely with decreased aeration especially at the bases with increased expiratory phase, slight expiratory wheeze and coarse crackles over the bases more on the left than right. Occasional rhonchi. No dullness to percussion. Heart: Tachycardic rate with regular rhythm and no appreciable murmurs or gallops. Breast: Exam deferred. Back: Stooped posture with no CVA tenderness. Abdomen: Normal contour, soft and nontender to palpation with no palpable hepatosplenomegaly. Bowel sounds positive all quadrants. Genitalia/rectal: Exam deferred. Extremities: Nonpitting edema with no cyanosis or clubbing. Peripheral pulses decreased but intact. Skin: Rough texture, slightly decreased turgor, warm and dry. Diffuse actinic changes. Neuro: Cranial nerves II through XII grossly intact, motor and sensory intact without focalizing. Psych: Slightly agitated with depressed mood and flat affect, poor eye contact. Normal thought processes. Remote and recent memory appear to be grossly intact. Results Imaging Additional studies: EXAM: Comprehensive 2D, Doppler, and color-flow Echocardiogram Patient Location: Out-Patient Acute Care Nursing Assistant: Rhoda Boss RDCS (AE) Rhythm: NSR Indications: CHF with preserved EF in 2014/ atypical CP . chronic CHF. i50.9 heart failure Conclusion Left Ventricle : The left ventricle is normal size. The left ventricular systolic function is normal. The left ventricular ejection fraction is within the normal range. Mild left ventricular hypertrophy. There is normal LV segmental wall motion. There is grade 2 diastolic dysfunction. LVEF is estimated to be 55-60%. Right Ventricle : The right ventricle is normal size. The right ventricular systolic function appears normal. Atria : Left atrium is mildly dilated. The right atrium size is normal. Aortic Valve : Aortic valve is trileaflet. The Aortic annulus is sclerotic. Aortic sclerosis without stenosis. No aortic regurgitation is present. Mitral Valve : Mitral valve leaflets are mildly thickened. Trace to mild mitral regurgitation. No evidence of mitral valve stenosis. Tricuspid Valve : Tricuspid valve is not well visualized. Trace tricuspid regurgitation. The IVC is dilated, but collapses >50% with inispiration. Estimated RVSP is 23-31 mmHg. Compared to echocardiogram dated 08/15/2015: Patient's ejection fraction has improved from 45% to 55% and wall motion abnormalities have resolved. Otherwise, there are no significant changes Imaging Studies: Exam: XR Chest, 2 Views Exam date and time: 01/10/2020 8:55 PM Age: 69 years old Clinical indication: Cough and fever; Patient HX: Cough, fever TECHNIQUE: Imaging protocol: XR of the chest Views: 2 views. COMPARISON: CR XR CHEST 2V PA LATERAL 08/28/2019 10:44 AM FINDINGS: Lungs: There is hyperinflation bilaterally consistent with underlying COPD. Some areas of bilateral lung scarring are noted. Minor atelectasis at the left CP angle. There are no areas of acute infiltrate or edema. No suspicious nodules or focal lung lesions. Pleural space: Unremarkable. No pleural effusion. No pneumothorax. Heart/Mediastinum: Unremarkable. No cardiomegaly. Bones/joints: Unremarkable. IMPRESSION: 1. Minor atelectasis at the left CP angle. 2. COPD. 3. Bilateral lung scarring. 4. No acute infiltrates. Dictated and Authenticated by: Fausto Silva MD. Exam: CT Head Without Contrast Exam date and time: 01/10/2020 8:25 PM Age: 69 years old Clinical indication: Injury or trauma; Initial encounter; Blunt trauma (contusions or hematomas); Without loss of consciousness; Injury date: 01/10/20; Injury details: Fall, headache, pain TECHNIQUE: Imaging protocol: Computed tomography of the head without contrast. Radiation optimization: All CT scans at this facility use at least one of these dose optimization techniques: automated exposure control; mA and/or kV adjustment per patient size (includes targeted exams where dose is matched to clinical indication); or iterative reconstruction. COMPARISON: CT HEAD WO 08/28/2019 1:23 PM FINDINGS: Brain: Age-related atrophy. No hemorrhage. Unremarkable white matter. No mass effect. Ventricles: Normal. No ventriculomegaly. Bones/joints: Unremarkable. No acute fracture. Sinuses: Visualized sinuses are unremarkable. No fluid levels. Mastoid air cells: Visualized mastoid air cells are well aerated. Soft tissues: Unremarkable. IMPRESSION: 1. No acute intracranial abnormality. 2. Age-related atrophy. 3. Stable since 08/28/2019. PROCEDURE INFORMATION: Exam: CT Cervical Spine Without Contrast Exam date and time: 01/10/2020 8:25 PM Age: 69 years old Clinical indication: Injury or trauma; Initial encounter; Blunt trauma (contusions or hematomas); Without loss of consciousness; Injury date: 01/10/20; Injury details: Fall, headache, pain TECHNIQUE: Imaging protocol: Computed tomography images of the cervical spine without contrast. Radiation optimization: All CT scans at this facility use at least one of these dose optimization techniques: automated exposure control; mA and/or kV adjustment per patient size (includes targeted exams where dose is matched to clinical indication); or iterative reconstruction. COMPARISON: CT HEAD WO 08/28/2019 1:23 PM FINDINGS: Vertebrae: Multilevel degenerative disease. Degenerative uncovertebral joint and facet joint disease. Vertebral body osteophytes and degenerative disc space change. Discs/Spinal canal/Neural foramina: Multilevel degenerative disc disease of moderate to severe nature. No april spinal stenosis or foraminal stenosis evident. Soft tissues: Unremarkable. Soft tissues: Atherosclerotic calcium of bilateral carotid arteries.. Lungs: Lung apices are normal. IMPRESSION: 1. No acute findings. 2. Degenerative cervical spine change. 3. No fracture. Dictated and Authenticated by: Fausto Silva MD. Labs Result diagrams: 01/10/20 20:20 01/10/20 20:20 Labs: Laboratory Results - last 24 hr 01/10/20 01/10/20 01/10/20 20:20 20:20 20:20 WBC 15.18 H RBC 4.50 Hgb 12.7 Hct 38.0 MCV 84.4 MCH 28.2 MCHC 33.4 RDW 12.3 Plt Count 279 MPV 10.2 Immature Gran % 0.9 Neutrophils % 88.7 Lymphocytes % 3.6 Monocytes % 6.7 Eosinophils % 0.0 Basophils % 0.1 Absolute Neutrophils 13.46 H Absolute Lymphocytes 0.55 L Absolute Monocytes 1.02 H Absolute Eosinophils 0.00 Absolute Basophils 0.02 PT INR APTT Sodium 129 L Potassium 3.4 L Chloride 91 L Carbon Dioxide 25.0 Anion Gap 13.0 H BUN 19 H Creatinine 1.24 H Estimated GFR/1.73 m2 42.76 Glucose 341 H Lactate 1.3 Calcium 8.7 Magnesium 1.3 L Total Bilirubin 0.9 AST 30 ALT 24 Alkaline Phosphatase 67 Total Protein 7.4 Albumin 2.9 L 01/10/20 01/10/20 20:20 20:20 WBC RBC Hgb Hct MCV MCH MCHC RDW Plt Count MPV Immature Gran % Neutrophils % Lymphocytes % Monocytes % Eosinophils % Basophils % Absolute Neutrophils Absolute Lymphocytes Absolute Monocytes Absolute Eosinophils Absolute Basophils PT 10.7 INR 1.1 APTT 28.3 Sodium Potassium Chloride Carbon Dioxide Anion Gap BUN Creatinine Estimated GFR/1.73 m2 Glucose Lactate Calcium Magnesium Total Bilirubin AST ALT Alkaline Phosphatase Total Protein Albumin Last Vital Signs Temp 36.6 C 01/10/20 22:09 Pulse 108 H 01/10/20 22:01 Resp 33 H 01/10/20 22:01 BP 144/65 H 01/10/20 22:01 Pulse Ox 97 01/10/20 22:01
[2020-01-10] MEDS: AZITHROMYCIN 500 MG in Normal Saline 250 ML 250 MG IVPB (23:21)
[2020-01-10] MEDS: MAGNESIUM SULFATE 2 GM/50 ML BAG IVPB (23:48)
[2020-01-11] VITALS (9 sets, daily range): BP systolic 99–135; BP diastolic 59–73; PULSE 88–111; RESP 17–20; TEMP 36.7–37.1; O2SAT 90–97
--- NOTE | 2020-01-11 | DI.RAD_ITS ---
EXAM: XR HIP LT COMPLETE AP PELVIS INDICATION: Status post fall with left hip pain and contusion. COMPARISON: No exams were available for comparison TECHNIQUE: 2D digital imaging was performed. FINDINGS: Hip joint spaces are well maintained. There is bilateral acetabular spurring as well as spurring fro m the greater trochanters. There is no evidence of fracture or dislocation. SI joints appear intact . Degenerative changes. No acute abnormality. DATA REPOSITORY: RADIATION DOSE DELIVERED:
[2020-01-11] MEDS: POTASSIUM CHLORIDE/0.9% NACL 1,000 ML 125 MEQ IV ×2 (00:18→11:18)
[2020-01-11] MEDS: Heparin 5,000 UNITS/ML VIAL 5000 UNITS SC ×4 (00:18→21:38)
[2020-01-11 00:25] LABS: Bilirubin Negative (Negative); Blood Large (Negative); Clarity Sl Cloudy (Clear); Glucose 250 mg/dL (Negative); Ketones 15 mg/dL (Negative); Leukocyte Esterase Trace (Negative); Nitrite Positive (Negative); Specific Gravity 1.025 (1.005-1.025); Urobilinogen 0.2 EU/dL (Up TO 0.2)
[2020-01-11 00:28] LABS: Bacteria Few HPF (Negative); C & S Indicated? C&S Done As Ordered; Casts Negative LPF (Negative); Crystals Negative HPF (Negative); Epithelial Cells Rare HPF (Negative); Mucus Negative (Negative); WBC 0-2 HPF (0-5)
[2020-01-11] MEDS: DOXYCYCLINE 100 MG in Normal Saline 100 ML IVPB ×2 (00:49→13:24)
[2020-01-11] MEDS: MAGNESIUM SULFATE 2 GM/50 ML BAG IVPB (01:33)
[2020-01-11 06:53] LABS: HCT 34.6 % (36.0-46.0); HGB 11.5 g/dL (12.0-15.5); Mean Corp. HGB Concentration 33.2 g/dL (32.0-36.0); Mean Corpuscular Hemoglobin 28.3 pg (27.0-33.0); Mean Corpuscular Volume 85.2 fL (80-95); Platelet Count 297 x1000/uL (130-400); RBC 4.06 m/cumm (4.00-5.20); RBC Distribution Width 12.5 % (11.7-14.6); White Blood Cell Count 10.95 k/cumm (4.4-10.8)
[2020-01-11 07:20] LABS: ALT 25 U/L (14-59); AST 46 U/L (15-37); Albumin 2.5 g/dL (3.4-5.0); Alkaline Phosphatase 58 U/L (46-116); Anion Gap 9.1 mmol/L (3-11); BUN 17 mg/dL (7-18); Bilirubin, Total 0.4 mg/dL (0.2-1.0); CO2 25.9 mmol/L (21.0-32.0); CREATININE 1.16 mg/dL (0.55-1.02); Calcium 8.1 mg/dL (8.5-10.1); Chloride 97 mmol/L (98-107); Estimated GFR 46.19 (mL/min/1.73m2); Glucose 282 mg/dL (74-106); Magnesium 2.6 mg/dL (1.8-2.4); Sodium 132 mmol/L (136-145); Total Protein 6.6 g/dL (6.4-8.2)
[2020-01-11 07:26] LABS: Potassium 2.9 mmol/L (3.5-5.1)
[2020-01-11] MEDS: Losartan 50 MG TAB 150 MG PO (07:59)
[2020-01-11] MEDS: Omeprazole 20 MG CAPCR PO (07:59)
[2020-01-11] MEDS: amLODIPine 5 MG TAB PO (07:59)
[2020-01-11] MEDS: Insulin Aspart 300 UNITS/3 ML PEN SC ×4 (08:06→21:42)
[2020-01-11] MEDS: POTASSIUM CHLORIDE 20 MEQ/100 ML BAG 50 MEQ IVPB ×3 (08:43→14:09)
--- NOTE | 2020-01-11 10:48 | PGE_ITS ---
Date of Service Date of service: 01/11/20 Time of Service: 10:49 Assessment and Plan Assessment and plan (1) Community acquired pneumonia: Status: Acute Assessment and plan: Clinically she presented with a pneumonia with increased shortness of breath cough fever and elevated white count although no infiltrates were seen on chest x-ray. She is currently on doxycycline and c eftriaxone. I will continue the same and as long she continues to improve I will plan to switch her to oral antibiotics tomorrow which she can complete a 7- day course as an outpatient. I will add an Acapella device to help mobilize sputum. Qualifiers: Laterality: left Lung location: lower lobe of lung Qualified Code(s): J18.9 - Pneumonia, unspecified organism (2) Dehydration: Status: Acute Assessment and plan: Continue IV fluid hydration albeit at a slow rate. If she is taken oral liquids and well today I will DC her IV fluids later this afternoon. Continue to replace her potassium. Furosemide remains on hold. (3) Hypokalemia: Status: Acute Assessment and plan: Patient will receive both IV and oral replacement I will recheck her electrolytes this afternoon. (4) Type II diabetes mellitus with complication, uncontrolled: Status: Chronic Assessment and plan: Monitor blood sugars before meals and at bedtime cover with sliding scale insulin. Resume her metformin (5) Contusion of left hip: Status: Acute Assessment and plan: I do not believe that there is a hip fracture as she has pretty good range of motion however because I did reproduce tenderness with external rotation but not with internal rotation I will get an x-ray since one was not performed last night. Qualifiers: Encounter type: initial encounter Qualified Code(s): S70.02XA - Contusion of left hip, initial encounter Subjective Subjective Interval history since last seen: See last night's history and physical examination report by Dr. Johan damon for details. In summary this 69-year-old female smoker with history of hypertension, type 2 diabetes mellitus, COPD, diastolic heart failure presented emergency department with several days of diarrhea nausea and vomiting along with nonproductive cough and fever and chills. She was diagnosed with a community-acquired pneumonia last night as well as found to be dehydrated and hypokalemic. Nasal swab was negative for influenza. According the patient and her daughter the patient was fed chicken water and left the speck and on and water went everywhere and the patient fell sustaining some bruising of her left hip and both elbows and her left knee. She also was confused. CT of her head showed no acute intracranial abnormalities. CT of her spine just showed degenerative disc changes. Chest 2 Views was read by V cornelio as demonstrating COPD, bilateral lung scarring, minor atelectasis at the left costophrenic angle, but no infiltrates. However she did have a leukocytosis of 15,000 which is improved to 10,950 this a.m. Today her confusion is cleared and she is feeling improved although still weak w/ cough but not productive. She is afebrile. She is currently on Ceftriaxone and Doxycycline for clinical pneumonia. She is receiving iv fluids and her repeat K+ is low at 2.9 which is being replaced w/iv potassium. Her DM is being treated w/ insulin per sliding scale. As her renal function is ok, I am going to restart her metformin. Exam Narrative Exam Narrative: Elderly female lying in bed in semi-wagner position talking with her daughter in complete sentences. She is not dyspneic at rest nor with conversation. She is alert and oriented person place time circumstance. Neck is supple nontender no JVD Lungs reveal diminished breath sounds at both bases no rhonchi wheezes or rales. Heart is tachycardic but regular Abdomen soft and nontender Extremities reveal bruising over left hip left knee and both elbows. Range of motion in the left hip is normal except there is some tenderness with external rotation. Objective Objective Clinical Data: Abnormal lab results 01/10/20 01/10/20 01/11/20 Range/Units 20:20 20:20 00:10 WBC 15.18 H (4.4-10.8) k/cumm Hgb (12.0-15.5) g/dL Hct (36.0-46.0) % Absolute Neutrophils 13.46 H (1.2-6.7) k/cumm Absolute Lymphocytes 0.55 L (1.2-3.4) k/cumm Absolute Monocytes 1.02 H (0.11-0.7) k/cumm Sodium 129 L (136-145) mmol/L Potassium 3.4 L (3.5-5.1) mmol/L Chloride 91 L (98-107) mmol/L Anion Gap 13.0 H (3-11) mmol/L BUN 19 H (7-18) mg/dL Creatinine 1.24 H (0.55-1.02) mg/dL Glucose 341 H (74-106) mg/dL Calcium (8.5-10.1) mg/dL Magnesium 1.3 L (1.8-2.4) mg/dL AST (15-37) U/L Albumin 2.9 L (3.4-5.0) g/dL Urine Protein >=300 H (Negative) mg/dL Urine Ketones 15 H (Negative) mg/dL Urine Blood Large H (Negative) Urine Nitrite Positive H (Negative) Ur Leukocyte Esterase Trace H (Negative) Urine RBC 3-5 H (0-2) HPF Urine Glucose 250 H (Negative) mg/dL 01/11/20 01/11/20 Range/Units 06:25 06:25 WBC 10.95 H (4.4-10.8) k/cumm Hgb 11.5 L (12.0-15.5) g/dL Hct 34.6 L (36.0-46.0) % Absolute Neutrophils (1.2-6.7) k/cumm Absolute Lymphocytes (1.2-3.4) k/cumm Absolute Monocytes (0.11-0.7) k/cumm Sodium 132 L (136-145) mmol/L Potassium 2.9 L* (3.5-5.1) mmol/L Chloride 97 L (98-107) mmol/L Anion Gap (3-11) mmol/L BUN (7-18) mg/dL Creatinine 1.16 H (0.55-1.02) mg/dL Glucose 282 H (74-106) mg/dL Calcium 8.1 L (8.5-10.1) mg/dL Magnesium 2.6 H (1.8-2.4) mg/dL AST 46 H (15-37) U/L Albumin 2.5 L (3.4-5.0) g/dL Urine Protein (Negative) mg/dL Urine Ketones (Negative) mg/dL Urine Blood (Negative) Urine Nitrite (Negative) Ur Leukocyte Esterase (Negative) Urine RBC (0-2) HPF Urine Glucose (Negative) mg/dL Vital Signs Temperature 37.0 C 01/11/20 08:00 Temperature Source Tympanic 01/11/20 08:00 Pulse 100 H 01/11/20 08:00 Pulse Rhythm Regular 01/11/20 03:38 Pulse 110 H 01/10/20 22:01 Respiratory Rate 18 01/11/20 08:00 Respiratory Effort Non-Labored 01/11/20 03:38 Respiratory Depth Normal 01/11/20 03:38 Respiratory Pattern Normal 01/11/20 03:38 Blood Pressure 131/73 01/11/20 08:00 Blood Pressure Mean 82 01/10/20 22:01 Blood Pressure Position Supine 01/10/20 20:13 Pulse Oximetry 93 L 01/11/20 10:28 Oxygen Delivery Method Nasal Cannula 01/11/20 10:28 Oxygen Flow Rate 2 01/11/20 10:28 Pain Level 0 01/11/20 08:00 Comment 01/10/20 22:50 Intake & Output 01/10/20 01/10/20 01/11/20 11:59 23:59 11:59 Intake Total 1050 / 1050 550 / 550 Output Total 250 / 250 650 / 650 Balance 800 / 800 -100 / -100 Weight 72.2 kg 71.9 kg Intake: IV 1050 / 1050 550 / 550 Output: Urine 250 / 250 650 / 650 Other: Urine Color Light Yamilet Yellow Urine Appearance Clear Clear Urine Odor Normal None Voiding Methods Toilet Bedside Commode Laboratory Results WBC 10.95 k/cumm (4.4-10.8) H 01/11/20 06:25 RBC 4.06 m/cumm (4.00-5.20) 01/11/20 06:25 Hgb 11.5 g/dL (12.0-15.5) L 01/11/20 06:25 Hct 34.6 % (36.0-46.0) L 01/11/20 06:25 MCV 85.2 fL (80-95) 01/11/20 06:25 MCH 28.3 pg (27.0-33.0) 01/11/20 06:25 MCHC 33.2 g/dL (32.0-36.0) 01/11/20 06:25 RDW 12.5 % (11.7-14.6) 01/11/20 06:25 Plt Count 297 x1000/uL (130-400) 01/11/20 06:25 MPV 10.0 fL (8.0-11.0) 01/11/20 06:25 Immature Gran % 0.9 % 01/10/20 20:20 Neutrophils % 88.7 01/10/20 20:20 Lymphocytes % 3.6 01/10/20 20:20 Monocytes % 6.7 01/10/20 20:20 Eosinophils % 0.0 01/10/20 20:20 Basophils % 0.1 01/10/20 20:20 Absolute Neutrophils 13.46 k/cumm (1.2-6.7) H 01/10/20 20:20 Absolute Lymphocytes 0.55 k/cumm (1.2-3.4) L 01/10/20 20:20 Absolute Monocytes 1.02 k/cumm (0.11-0.7) H 01/10/20 20:20 Absolute Eosinophils 0.00 k/cumm (0.0-0.7) 01/10/20 20:20 Absolute Basophils 0.02 k/cumm (0.0-0.2) 01/10/20 20:20 PT 10.7 sec (9.3-11.0) 01/10/20 20:20 INR 1.1 (0.9-1.1) 01/10/20 20:20 APTT 28.3 sec (21.0-31.4) 01/10/20 20:20 Sodium 132 mmol/L (136-145) L 01/11/20 06:25 Potassium 2.9 mmol/L (3.5-5.1) L* 01/11/20 06:25 Chloride 97 mmol/L (98-107) L 01/11/20 06:25 Carbon Dioxide 25.9 mmol/L (21.0-32.0) 01/11/20 06:25 Anion Gap 9.1 mmol/L (3-11) 01/11/20 06:25 BUN 17 mg/dL (7-18) 01/11/20 06:25 Creatinine 1.16 mg/dL (0.55-1.02) H 01/11/20 06:25 Estimated GFR/1.73 m2 46.19 (mL/min/1.73m2) 01/11/20 06:25 Glucose 282 mg/dL (74-106) H 01/11/20 06:25 Lactate 1.3 mmol/L (0.6-1.4) 01/10/20 20:20 Calcium 8.1 mg/dL (8.5-10.1) L 01/11/20 06:25 Magnesium 2.6 mg/dL (1.8-2.4) H 01/11/20 06:25 Total Bilirubin 0.4 mg/dL (0.2-1.0) 01/11/20 06:25 AST 46 U/L (15-37) H 01/11/20 06:25 ALT 25 U/L (14-59) 01/11/20 06:25 Alkaline Phosphatase 58 U/L (46-116) 01/11/20 06:25 Total Protein 6.6 g/dL (6.4-8.2) 01/11/20 06:25 Albumin 2.5 g/dL (3.4-5.0) L 01/11/20 06:25 Urine Color Yellow (Yellow) 01/11/20 00:10 Urine Clarity Sl cloudy (Clear) 01/11/20 00:10 Urine pH 6.0 (5-8) 01/11/20 00:10 Ur Specific [place] 1.025 (1.005-1.025) 01/11/20 00:10 Urine Protein >=300 mg/dL (Negative) H 01/11/20 00:10 Urine Ketones 15 mg/dL (Negative) H 01/11/20 00:10 Urine Blood Large (Negative) H 01/11/20 00:10 Urine Nitrite Positive (Negative) H 01/11/20 00:10 Urine Bilirubin Negative (Negative) 01/11/20 00:10 Urine Urobilinogen 0.2 EU/dL (Up TO 0.2) 01/11/20 00:10 Ur Leukocyte Esterase Trace (Negative) H 01/11/20 00:10 Urine RBC 3-5 HPF (0-2) H 01/11/20 00:10 Urine WBC 0-2 HPF (0-5) 01/11/20 00:10 Ur Epithelial Cells Rare HPF (Negative) 01/11/20 00:10 Urine Crystals Negative HPF (Negative) 01/11/20 00:10 Urine Bacteria Few HPF (Negative) 01/11/20 00:10 Urine Casts Negative LPF (Negative) 01/11/20 00:10 Urine Mucus Negative (Negative) 01/11/20 00:10 Ur Culture Indicated? C&s done as ordered 01/11/20 00:10 Urine Glucose 250 mg/dL (Negative) H 01/11/20 00:10
[2020-01-11] MEDS: Potassium Chloride 20 MEQ TABCR 40 MEQ PO (11:49)
[2020-01-11] MEDS: metFORMIN 500 MG TAB 1000 MG PO ×2 (11:49→16:38)
[2020-01-11] MEDS: Acetaminophen 325 MG TAB 650 MG PO (14:08)
[2020-01-11 14:56] LABS: Anion Gap 7.1 mmol/L (3-11); BUN 19 mg/dL (7-18); CO2 26.9 mmol/L (21.0-32.0); CREATININE 1.28 mg/dL (0.55-1.02); Calcium 8.3 mg/dL (8.5-10.1); Chloride 100 mmol/L (98-107); Estimated GFR 41.23 (mL/min/1.73m2); Glucose 165 mg/dL (74-106); Potassium 3.7 mmol/L (3.5-5.1); Sodium 134 mmol/L (136-145)
--- NOTE | 2020-01-11 16:30 | PDOC.CMIN ---
- If Service Date Differs Date of service: 01/11/20 Time of Service: 16:30 Care Management Initial Assess REASON FOR HOSPITALIZATION:: Community Acquired Pneumonia PAST MEDICAL HISTORY/PAST SURGICAL HISTORY:: Medical History (Updated 01/11/20 @ 00:57 by Selvin Jorge). Anxiety (Inactive). Calcaneal spur (Inactive). Calcific tendinitis of left shoulder (Inactive). Injected: 06/08/2019. Chronic congestive heart failure (Inactive). echo.: EF 45-50%. nuclear stress test negative; . Chronic obstructive pulmonary disease (Inactive 09/19/15). 1st PFTs : severe copd. Chronic systolic congestive heart failure, NYHA class 2 (Inactive 09/16/15). Diabetes mellitus type 2, noninsulin dependent (Inactive). diabetic nephropathy : 39.3 microalb./ no neuropathy. Diabetes mellitus, insulin dependent (IDDM), controlled. Diabetic nephropathy. Essential hypertension. Essential hypertension (Inactive 12/23/13). Heart failure. History of alcoholism (Inactive). Hyperlipidemia. Injury of foot (Inactive 10/01/03). Iron deficiency anemia (Inactive). Moderate nonproliferative diabetic retinopathy (Inactive 09/13/12). 11/15/14; OPTICAL EXPRESSIONS; INCREASE IN RETINOPATHY SINCE PREVIOUS VISIT (RIGHT EYE). Dr.shippee reanna [email or web address].db retinopathy. 02/08/19; [facility]; MILD RETINOPATHY-kb. Normal colonoscopy (Acute 07/30/18). Dr White, repeat in 10 years. Preoperative cardiovascular examination (Inactive). Pulmonary emphysema (Inactive 09/16/15). 1st PFTs : pt refused to complete with post-bronchodil. portion/ severe copd. Rectal hemorrhage (Inactive 06/01/10). colonoscopy 06/17/10--rectal mass; per [facility]-proctitis. Smoker (Inactive). Tobacco dependence. Trigger finger of both hands (Inactive 09/03/15). Type II diabetes mellitus with complication, uncontrolled (Chronic). 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 non insulin dependent. db. neuropathy (little marbles). Surgical History . Cholecystectomy. Colonoscopy - MAC. History of esophagogastroduodenoscopy (EGD) (Chronic 07/30/18). Dr White. Status post cholecystectomy (Inactive) PREVIOUS FUNCTIONAL STATUS/SOCIAL/FAMILY SUPPORTS:: Beth lives alone in an apartment in [place]. She has 4 daughters and several grandchildren and great grandchildren. Only one daughter lives locally, the rest are out of state. Beth is independent at baseline and continues to drive. CURRENT FUNCTIONAL STATUS:: Beth was sitting up in bed when CM met with her. She was polite but a bit guarded during the conversation. Beth stated that she would like to pursue getting a Lifeline type of device. She fell at home and lay on the floor for 3 hours before she was able to get help. Her daughter Keri came to see her during CM visit and also expressed interest. CM offered some suggestions and written information. ADVANCE DIRECTIVES:: none Has patient been provided with information about the portal?: Yes Did the patient sign up for the portal?: Yes (previously) CODE STATUS:: Full Code INSURANCE COVERAGE / FINANCIAL ISSUES:: Medicare. Medicaid CURRENT HOME/COMMUNITY SERVICES/EQUIPMENT:: None currently PRIMARY CARE PHYSICIAN:: Jane Johnson POTENTIAL DISCHARGE NEEDS:: follow up with PCP and discharge plan of care PATIENT/FAMILY EDUCATION NEEDS:: Discharge plan, limitations, follow up plan and Ask Me Three. TRANSPORTATION:: via private vehicle with family PLAN:: Beth will likely be discharged home with no new services. She feels she may need home O2. CM explained the process and criteria for home oxygen therapy. CM will continue to follow and support patient and dischage plannng needs.
[2020-01-11] MEDS: CEFEPIME 2 GM in Normal Saline 100 ML IVPB (16:38)
[2020-01-12] VITALS (7 sets, daily range): BP systolic 114–137; BP diastolic 54–78; PULSE 91–99; RESP 18–20; TEMP 36–37.1; O2SAT 92–95
[2020-01-12] MEDS: POTASSIUM CHLORIDE/0.9% NACL 1,000 ML 125 MEQ IV (00:43)
[2020-01-12] MEDS: CEFEPIME 2 GM in Normal Saline 100 ML IVPB ×4 (00:44→23:33)
[2020-01-12] MEDS: Acetaminophen 325 MG TAB 650 MG PO ×3 (01:13→19:25)
[2020-01-12] MEDS: DOXYCYCLINE 100 MG in Normal Saline 100 ML IVPB (01:56)
[2020-01-12] MEDS: Heparin 5,000 UNITS/ML VIAL 5000 UNITS SC ×3 (06:53→21:35)
[2020-01-12] MEDS: metFORMIN 500 MG TAB 1000 MG PO ×2 (08:12→17:05)
[2020-01-12] MEDS: Losartan 50 MG TAB 150 MG PO (08:12)
[2020-01-12] MEDS: Potassium Chloride 20 MEQ TABCR PO (08:13)
[2020-01-12] MEDS: Citalopram 10 MG TAB PO (08:13)
[2020-01-12] MEDS: amLODIPine 5 MG TAB PO (08:13)
[2020-01-12] MEDS: Omeprazole 20 MG CAPCR PO (08:13)
[2020-01-12] MEDS: Insulin Aspart 300 UNITS/3 ML PEN SC ×4 (08:14→21:36)
--- NOTE | 2020-01-12 10:04 | DI.US_ITS ---
EXAM: US RENAL CLINICAL HISTORY: Gram-negative denny bacteremia, right flank pain rule out pyelonephritis. TECHNIQUE: Alvarado scale, color and spectral Doppler were used. COMPARISON: No exams were available for comparison FINDINGS: Renal size in cm: Right: 12.0 left: 13.7 Echogenicity: Left kidney normal. The overall echogenicity of the right kidney is normal. There is a questioned area of ill-defined low-density of the upper pole of the right kidney. This could repre sent pyelonephritis. Hydronephrosis: No Cyst or mass: No Nephrolithiasis: No Other findings: No perinephric collection. Bladder:Distended with a prevoid volume of 30 cc. Neither ureteral jet was visualized. Prevoid vol:30 cc Postvoid vol:1 cc IMPRESSION: Question of an ill-defined area of decreased echogenicity at the upper pole of the right kidney. The findings could represent pyelonephritis. A contrast enhanced CT is a more sensitive examination for detection of pyelonephritis. DATA REPOSITORY:
[2020-01-12] MEDS: Budesonide/Formoterol 160/4.5 6 GM 60 PUFF INH IH (10:27)
--- NOTE | 2020-01-12 12:50 | W.PM.PROGNOT ---
Date of Service Date of service: 01/12/20 Time of Service: 12:50 Assessment and Plan Assessment and plan (1) Gram-negative bacteremia: Status: Acute Assessment and plan: Presumed source is urinary. Patient has a history of recurrent UTIs however her current urine culture is just showing a few mixed gram-positive cocci which is probably a skin contamination. Given her right flank pain I am and get it ultrasound of her kidneys. Continue cefepime 2 g IV every 8 hours. (2) Community acquired pneumonia: Status: Acute Assessment and plan: She was initially signed out as an acute community-acquired pneumonia. However chest x-ray shows no infiltrates and she is not coughing up any purulent sputum. Qualifiers: Laterality: left Lung location: lower lobe of lung Qualified Code(s): J18.9 - Pneumonia, unspecified organism (3) Dehydration: Status: Resolved Assessment and plan: Resolved. Will discontinue IV fluids at this time. (4) Hypokalemia: Status: Resolved Assessment and plan: Patient will receive both IV and oral replacement I will recheck her electrolytes this afternoon. (5) Type II diabetes mellitus with complication, uncontrolled: Status: Chronic Assessment and plan: Monitor blood sugars before meals and at bedtime cover with sliding scale insulin. Resume her metformin (6) Contusion of left hip: Status: Acute Assessment and plan: No evidence of hip fracture per x-ray Qualifiers: Encounter type: initial encounter Qualified Code(s): S70.02XA - Contusion of left hip, initial encounter (7) Ambulatory dysfunction: Status: Acute Assessment and plan: Patient had problems with gait instability leading to her fall I think this was related to her being septic nevertheless she and her daughter requesting physical therapy evaluation. I will have PTs see the patient to evaluate her gait strength and balance. Subjective Subjective Interval history since last seen: Patient remains afebrile. She does note some right flank pain but no dysuria. Her blood cultures are showing gram-negative rods in 2 out of 2 bottles. She is currently on cefepime 2 g IV every 8 hours. We are awaiting identification and sensitivities. Her urine culture looks like mixed gram-positive nader probably skin contamination. I will get a renal ultrasound to rule out pyelonephritis as a source for her gram-negative bacteremia. Exam Narrative Exam Narrative: Alert and oriented x3 no acute distress sitting on the bedside commode. Lungs are clear to auscultation upper ramirez she has some bibasilar rales. Heart is regular rate and rhythm. Abdomen soft and nontender. There is some right flank tenderness with palpation. Lower extremities without peripheral cyanosis or edema. Objective Objective Clinical Data: Abnormal lab results 01/11/20 Range/Units 14:08 Sodium 134 L (136-145) mmol/L BUN 19 H (7-18) mg/dL Creatinine 1.28 H (0.55-1.02) mg/dL Glucose 165 H D (74-106) mg/dL Calcium 8.3 L (8.5-10.1) mg/dL Vital Signs Temperature 36.8 C 01/12/20 11:39 Temperature Source Tympanic 01/12/20 11:39 Pulse 99 H 01/12/20 11:39 Pulse Rhythm Regular 01/12/20 07:51 Pulse 110 H 01/10/20 22:01 Respiratory Rate 20 01/12/20 11:39 Respiratory Effort Non-Labored 01/12/20 07:51 Respiratory Depth Shallow 01/12/20 07:51 Respiratory Pattern Normal 01/12/20 07:51 Blood Pressure 130/74 01/12/20 11:39 Blood Pressure Mean 82 01/10/20 22:01 Blood Pressure Position Supine 01/10/20 20:13 Pulse Oximetry 93 L 01/12/20 11:39 Oxygen Delivery Method Room Air 01/12/20 11:39 Oxygen Flow Rate 0 01/12/20 11:39 Pain Level 3 01/12/20 12:21 Comment 01/10/20 22:50 Intake & Output 01/11/20 01/12/20 01/12/20 23:59 11:59 23:59 Intake Total 2090 / 4240 802.083 / 802.083 Output Total 400 / 1050 250 / 250 Balance 1690 / 3190 552.083 / 552.083 Weight 69.4 kg Intake: IV 1400 / 2950 402.083 / 402.083 Oral 690 / 1290 400 / 400 Output: Urine 400 / 1050 250 / 250 Other: Urine Color Yellow Yellow Urine Appearance Clear Clear Urine Odor Normal Normal Stool Size Moderate Stool Characteristics Soft Formed Voiding Methods Toilet Bedside Commode Laboratory Results WBC 10.95 k/cumm (4.4-10.8) H 01/11/20 06:25 RBC 4.06 m/cumm (4.00-5.20) 01/11/20 06:25 Hgb 11.5 g/dL (12.0-15.5) L 01/11/20 06:25 Hct 34.6 % (36.0-46.0) L 01/11/20 06:25 MCV 85.2 fL (80-95) 01/11/20 06:25 MCH 28.3 pg (27.0-33.0) 01/11/20 06:25 MCHC 33.2 g/dL (32.0-36.0) 01/11/20 06:25 RDW 12.5 % (11.7-14.6) 01/11/20 06:25 Plt Count 297 x1000/uL (130-400) 01/11/20 06:25 MPV 10.0 fL (8.0-11.0) 01/11/20 06:25 Immature Gran % 0.9 % 01/10/20 20:20 Neutrophils % 88.7 01/10/20 20:20 Lymphocytes % 3.6 01/10/20 20:20 Monocytes % 6.7 01/10/20 20:20 Eosinophils % 0.0 01/10/20 20:20 Basophils % 0.1 01/10/20 20:20 Absolute Neutrophils 13.46 k/cumm (1.2-6.7) H 01/10/20 20:20 Absolute Lymphocytes 0.55 k/cumm (1.2-3.4) L 01/10/20 20:20 Absolute Monocytes 1.02 k/cumm (0.11-0.7) H 01/10/20 20:20 Absolute Eosinophils 0.00 k/cumm (0.0-0.7) 01/10/20 20:20 Absolute Basophils 0.02 k/cumm (0.0-0.2) 01/10/20 20:20 PT 10.7 sec (9.3-11.0) 01/10/20 20:20 INR 1.1 (0.9-1.1) 01/10/20 20:20 APTT 28.3 sec (21.0-31.4) 01/10/20 20:20 Sodium 134 mmol/L (136-145) L 01/11/20 14:08 Potassium 3.7 mmol/L (3.5-5.1) D 01/11/20 14:08 Chloride 100 mmol/L (98-107) 01/11/20 14:08 Carbon Dioxide 26.9 mmol/L (21.0-32.0) 01/11/20 14:08 Anion Gap 7.1 mmol/L (3-11) 01/11/20 14:08 BUN 19 mg/dL (7-18) H 01/11/20 14:08 Creatinine 1.28 mg/dL (0.55-1.02) H 01/11/20 14:08 Estimated GFR/1.73 m2 41.23 (mL/min/1.73m2) 01/11/20 14:08 Glucose 165 mg/dL (74-106) H D 01/11/20 14:08 Lactate 1.3 mmol/L (0.6-1.4) 01/10/20 20:20 Calcium 8.3 mg/dL (8.5-10.1) L 01/11/20 14:08 Magnesium 2.6 mg/dL (1.8-2.4) H 01/11/20 06:25 Total Bilirubin 0.4 mg/dL (0.2-1.0) 01/11/20 06:25 AST 46 U/L (15-37) H 01/11/20 06:25 ALT 25 U/L (14-59) 01/11/20 06:25 Alkaline Phosphatase 58 U/L (46-116) 01/11/20 06:25 Total Protein 6.6 g/dL (6.4-8.2) 01/11/20 06:25 Albumin 2.5 g/dL (3.4-5.0) L 01/11/20 06:25 Urine Color Yellow (Yellow) 01/11/20 00:10 Urine Clarity Sl cloudy (Clear) 01/11/20 00:10 Urine pH 6.0 (5-8) 01/11/20 00:10 Ur Specific [place] 1.025 (1.005-1.025) 01/11/20 00:10 Urine Protein >=300 mg/dL (Negative) H 01/11/20 00:10 Urine Ketones 15 mg/dL (Negative) H 01/11/20 00:10 Urine Blood Large (Negative) H 01/11/20 00:10 Urine Nitrite Positive (Negative) H 01/11/20 00:10 Urine Bilirubin Negative (Negative) 01/11/20 00:10 Urine Urobilinogen 0.2 EU/dL (Up TO 0.2) 01/11/20 00:10 Ur Leukocyte Esterase Trace (Negative) H 01/11/20 00:10 Urine RBC 3-5 HPF (0-2) H 01/11/20 00:10 Urine WBC 0-2 HPF (0-5) 01/11/20 00:10 Ur Epithelial Cells Rare HPF (Negative) 01/11/20 00:10 Urine Crystals Negative HPF (Negative) 01/11/20 00:10 Urine Bacteria Few HPF (Negative) 01/11/20 00:10 Urine Casts Negative LPF (Negative) 01/11/20 00:10 Urine Mucus Negative (Negative) 01/11/20 00:10 Ur Culture Indicated? C&s done as ordered 01/11/20 00:10 Urine Glucose 250 mg/dL (Negative) H 01/11/20 00:10
--- NOTE | 2020-01-12 13:46 | IN_ITS ---
Date of service: 01/12/20 Time of Service: 13:22 PT Notes Visit Reasons: COMMUNITY ACQUIRED PNEUMONIA, DEHYDRATION Physical Therapy Inpatient Initial Evaluation Date: 01/12/2020 Referring Doctor: Padilla Mcgee MD PT Orders: PT CONSULT: Limited ability Precautions: Fall. Standard. Activity as tolerated. Patient Profile/Admitting Diagnosis: Patient is a 69-year-old female who presented to the ED on 01/10/2020 with the chief presentation of increasing weakness, cough, nausea, vomiting of 2 days, mild headache, and report of a fall at home. Patient is diagnosed with community-acquired pneumonia, dehydration, and hyponatremia. PMHX: Medical History (Updated 01/11/20 @ 00:57 by Selvin Jorge) Anxiety (Inactive) Calcaneal spur (Inactive) Calcific tendinitis of left shoulder (Inactive) Injected: 06/08/2019 Chronic congestive heart failure (Inactive) echo.: EF 45-50% nuclear stress test negative; Chronic obstructive pulmonary disease (Inactive 09/19/15) 1st PFTs : severe copd Chronic systolic congestive heart failure, NYHA class 2 (Inactive 09/16/15) Diabetes mellitus type 2, noninsulin dependent (Inactive) diabetic nephropathy : 39.3 microalb./ no neuropathy Diabetes mellitus, insulin dependent (IDDM), controlled Diabetic nephropathy Essential hypertension Essential hypertension (Inactive 12/23/13) Heart failure History of alcoholism (Inactive) Hyperlipidemia Injury of foot (Inactive 10/01/03) Iron deficiency anemia (Inactive) Moderate nonproliferative diabetic retinopathy (Inactive 09/13/12) 11/15/14; OPTICAL EXPRESSIONS; INCREASE IN RETINOPATHY SINCE PREVIOUS VISIT (RIGHT EYE) mild bilat.db retinopathy 02/08/19; [facility]; MILD RETINOPATHY-kb Normal colonoscopy (Acute 07/30/18) Dr White, repeat in 10 years Preoperative cardiovascular examination (Inactive) Pulmonary emphysema (Inactive 09/16/15) 1st PFTs -2014: pt refused to complete with post-bronchodil. 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 neuropathy ([place]) Surgical History Cholecystectomy Colonoscopy - MAC History of esophagogastroduodenoscopy (EGD) (Chronic 07/30/18) Dr White Status post cholecystectomy (Inactive) Social History/Home Situation: Patient lives alone at the [address] here in [place] with 1 step to enter. She has a basement but she stresses that she does not need to go down as she has everything she needs on the main floor of the apartment. She reports that the washe/dryer area is about 100 feet from her apartment. Prior to this most recent hospitalization, patient was independent with all aspects of ADLs without the need for an assistive ambulatory device nor adaptive equipment. Equipment Owned/DME: None Subjective: Patient reports stiffness on bilateral knees with ambulation. She denies any nausea, vomiting, and headache since the time of admission. She is agreeable to home health physical therapy services coming into her apartment once she is medically cleared to go back home. She states that she has not had any falls aside from the recent 1 that she had that resulted to this admission in the past 12 months. Objective: General Observation: Telemetry monitoring in place. IV remains open and the right UE. Swelling to bilateral legs with the right more affected than the left noted Mental Status: Alert and oriented x4 Pain: Reported of pain and discomfort on the left hip with manual muscle testing. Vital Signs: 130/74 mmHg, 99 bpm, 93% on room air ROM: Right Upper Extremity: Shoulder Flexion allows only up to 90 degrees. Shoulder abduction allows only up to 80 degrees. Elbow flexion WFL. Wrist flexion WFL. Opening and closing of hand WFL. Left Upper Extremity: Shoulder Flexion allows only up to 90 degrees. Shoulder abduction allows only up to 80 degrees. Elbow flexion WFL. Wrist flexion WFL. Opening and closing of hand WFL. Right Lower Extremity: Hip flexion WFL. Hip abduction WFL. Knee flexion WFL. Ankle dorsiflexion WFL. Ankle plantarflexion WFL. Left Lower Extremity: Hip flexion unable to bend beyond 90 due to left hip pain. Hip abduction WFL. Knee flexion WFL. Ankle dorsiflexion WFL. Ankle plantarflexion WFL. Strength: Right Upper Extremity: Shoulder flexors 3-/5. Shoulder abductors 3-/5. Elbow flexors 4/5. Elbow extensors 4/5. Grinder Chipper strong. Left Upper Extremity: Shoulder flexors 3-/5. Shoulder abductors 3-/5. Elbow flexors 4/5. Elbow extensors 4/5. Grinder Chipper strong. Right Lower Extremity: Hip flexors 4-/5. Hip abductors 4-/5. Knee flexors 4-/5. Knee extensors 4-/5. Ankle dorsiflexors 4-/5. Ankle plantarflexors 4-/5. Left Lower Extremity:Hip flexors 3-/5. Hip abductors 3-/5. Knee flexors 3/5. Knee extensors 3/5. Ankle dorsiflexors 4/5. Ankle plantarflexors 4/5. Sensation: Intact as to pain and pressure on bilateral lower extremities. Bed Mobility/Transfers: Rolling SBA Supine to sit SBA Sit to supine SBA Sit to stand CGA Stand to sit CGA CGA Bed to chair CGA Chair to bed CGA Gait: Patient tolerated level surface ambulation of 300 feet using front wheeled walker with CGA and wheelchair follow of PT. Reciprocal step through gait pattern. Patient reported stiffness on the backs of the knees as she states that she has not walked for several days prior to today. Balance: Static Sitting: Normal Dynamic Sitting: Normal Static Standing: Fair Dynamic Standing: Fair Special Tests: Mobility Limitations Standardized Measure [facility] AM-PAC 6 clicks Basic Mobility Inpatient Short Form: Raw Score: 22 CMS Score: 21% deficit Informed Consent/Education: Patient instructed in purpose of PT consult and plan of care. Assessment: Difficulty with walking, need for assistive device for all mobility ADL performance, increased risk for falls, generalized weakness, and unsteadiness resulting from current diagnoses. Patient is a 69-year-old female who presented to the ED on 01/10/2020 with the chief presentation of increasing weakness, cough, nausea, vomiting of 2 days, mild headache, and report of a fall at home. Patient is diagnosed with community-acquired pneumonia, dehydration, and hyponatremia. Patient presents with clinical signs and symptoms consistent with current/admitting diagnoses that have resulted to mobility limitations, gait instability, generalized weakness, and impairment of motor control as demonstrated by the following impairment level findings: 1. Decreased strength to B LE major muscle groups 2. Impaired standing balance 3. Impaired activity tolerance 4. Limitation of joint range of motion in left shoulder and left hip Impairments are contributing to the following functional limitations: 1. Increased dependence with transfers 2. Inability to safely ambulate without assistive device and physical assistance 3. Increase completion time for mobility ADL performance 4. Increased fall risk 5. Inability to negotiate steps alone safely Patient is assessed as a 43954 moderate complexity based on the following: History: 69-year-old female with impairment level findings, functional limitations, and [place] AM PAC deficit score of 21% Examination: Demonstrable impairment in strength, balance, and range of motion with underlying impairments and functional limitations as documented above Presentation:Evolving Decision Makin moderate complexity Goals: Goals X1 week 1. Supine-Sit independent 2. Sit-Supine independent 3. Sit-Stand independent 4. Stand-Sit independent 5. Bed-Chair independent 6. Chair-Bed independent 7. Independent gait on level surface with use of least restrictive device for at least 300 feet without report of pain nor dyspnea 8. Independent stair negotiation while holding onto bilateral rails for at least 10 steps without report of pain nor dyspnea 9. Independent with home exercise program 10. Good static and dynamic standing balance/tolerance Plan of Care/Treatment Plan: 1-2x/day, 7 days/week x 1 week. Plan of care has been reviewed with the TUBE TEST TECHNICIAN providing the service under Physical Therapy direction. Initiate Physical Therapy intervention for strengthening, bed mobility, transfers, gait, stairs, balance training, use of assistive device. DISCHARGE RECOMMENDATIONS: Patient will benefit from the use of a front wheeled walker in order to increase activity tolerance and reduce fall risk at home. She will also benefit from the use of over the toilet commode in order to maximize independence with all toileting tasks. Patient will benefit from home health PT services in order to progress mobility level using least restrictive assistive ambulatory device, assess home safety, identify additional equipment needs, and establish a functional maintenance program that will increase ability of patient to remain at home. TREATMENT CODE/TIME: 9716 2 x 21 minutes beginning at 13:22 PM. Thank you very much for this referral. Nahed Miller PT, DPT, CLT [facility] [place], [place]
--- NOTE | 2020-01-12 16:51 | PHA.ADMREV ---
Pharmacy Clinical Review - Admission Clinical Review (Last Updated 01/11/20 @ 00:57 by Selvin Jorge) Ambulatory dysfunction (Acute) Gram-negative bacteremia (Acute) Contusion of left hip (Acute) Fever (Acute) Community acquired pneumonia (Acute) Hyponatremia (Acute) Hypomagnesemia (Acute) codeine Adverse Reaction (Severe, Verified 01/10/20 20:18) Cardiac Dysrythmia indomethacin Adverse Reaction (Intermediate, Verified 01/10/20 20:18) Cardiac Dysrythmia lisinopril Adverse Reaction (Verified 01/10/20 20:18) cough Height 5 ft 7.5 in Weight 69.4 kg - Renal Dosing Renal Dosing: BUN 19 mg/dL (7-18) H 01/11/20 14:08 Creatinine 1.28 mg/dL (0.55-1.02) H 01/11/20 14:08 Medications needing adjustments: Intervened (Cefepime currently q8h but given slightly worse renal fxn today adjusment to q12h should be considered - notified md) - Anticoagulation Anticoagulation: Hgb 11.5 g/dL (12.0-15.5) L 01/11/20 06:25 Hct 34.6 % (36.0-46.0) L 01/11/20 06:25 Plt Count 297 x1000/uL (130-400) 01/11/20 06:25 INR 1.1 (0.9-1.1) 01/10/20 20:20 Creatinine 1.28 mg/dL (0.55-1.02) H 01/11/20 14:08 DVT Prohphylaxis: Reviewed Medications: Heparin Therapeutic Anticoagulation: N/A - Opiate Usage Evaluate Pain Scale/Pains Meds: N/A Scheduled Bowel Reg ordered if on Opiates?: No (PRN) - Relevant Labs Sodium 134 mmol/L (136-145) L 01/11/20 14:08 Potassium 3.7 mmol/L (3.5-5.1) D 01/11/20 14:08 Chloride 100 mmol/L (98-107) 01/11/20 14:08 Magnesium 2.6 mg/dL (1.8-2.4) H 01/11/20 06:25 Electrolytes, C-Reactive P, ESR: Reviewed - Antimicrobial Stewardship Antibiotic appropriateness: Reviewed (Cefepime 2g q8h) Culture review/Resistance: Reviewed (Gram - bacteremia, awaiting sensitivities) - DM Control DM Control: Glucose 165 mg/dL (74-106) H D 01/11/20 14:08 Finger Stick Blood Glucose 196 Finger Stick Blood Glucose 196 Finger Stick Blood Glucose 208 Finger Stick Blood Glucose 208 Insulin Dosing: Reviewed (Aspart per SS) - Heart Failure/PA EF%, VINAY's, B-Blockers, Diuretics: Reviewed - BP Control BP Control: Blood Pressure 114/54 Blood Pressure 130/74 Blood Pressure 137/64 If elevated: Reviewed - QTc Review If Elevated: Reviewed (QTc 461) - IV to PO Switch IV Medications: Reviewed - Home Meds Home Med List reviewed: Reviewed - Current meds Current Medication Order Review: Reviewed - Comments Comments/Follow Ups: Initially admitted for PNA but chest xray does not reveal infiltrates, non-pruductive cough; blood cultures have grown gram - nader
[2020-01-12 16:52] LABS: Abs Immature Grans 0.08 k/cumm (0.0-0.09); Absolute Basophil Count 0.02 k/cumm (0.0-0.2); Absolute Eosinophil Count 0.09 k/cumm (0.0-0.7); Absolute Lymphocyte Count 1.22 k/cumm (1.2-3.4); Absolute Monocyte Count 1.02 k/cumm (0.11-0.7); Absolute Neutrophil Count 4.96 k/cumm (1.2-6.7); Basophils % 0.3; Eosinophils % 1.2; HCT 32.3 % (36.0-46.0); HGB 10.4 g/dL (12.0-15.5); Immature Grans % 1.1 %; Lymphocytes % 16.5; Mean Corp. HGB Concentration 32.2 g/dL (32.0-36.0); Mean Corpuscular Hemoglobin 28.3 pg (27.0-33.0); Mean Corpuscular Volume 87.8 fL (80-95); Mean Platelet Volume 9.7 fL (8.0-11.0); Monocytes % 13.8; Neutrophils % 67.1; Platelet Count 337 x1000/uL (130-400); RBC 3.68 m/cumm (4.00-5.20); RBC Distribution Width 13.1 % (11.7-14.6); White Blood Cell Count 7.39 k/cumm (4.4-10.8)
[2020-01-12 17:02] LABS: BUN 18 mg/dL (7-18); CREATININE 1.07 mg/dL (0.55-1.02); Calcium 8.1 mg/dL (8.5-10.1); Chloride 102 mmol/L (98-107); Glucose 190 mg/dL (74-106); Potassium 4.5 mmol/L (3.5-5.1); Sodium 133 mmol/L (136-145)
--- NOTE | 2020-01-12 17:06 | PDOC.CMPRO ---
- If Service Date Differs Date of service: 01/12/20 Time of Service: 17:06 Care Management Progress Note S/O: Beth was sitting up in a chair when CM met with her and her daughter. Beth asked how long it would take to get a [facility] from [facility]. CM had sent the referral but no call back has been received. Attempts to speak to the agency in person were unsuccessful CM will reach out to [facility] staff again tomorrow. Beth also discussed possible services at home. She acknowledged that she is weaker than baseline and thought home health might be helpful. A PT evaluation was requested and completed. A: Beth is a 69 year old woman admitted on01/10/20 with Community Acquired Pneumonia P:Beth will likely be discharged home with new home health services services. A PT eval was requested and completed, with a recommendation for HH PT as well as a walker. Beth also feels she may need home O2. CM will continue to follow and support patient and discharge planning needs.
[2020-01-12] MEDS: Normal Saline Flush 10 ML SYR IVP (23:33)
[2020-01-13] MEDS: Heparin 5,000 UNITS/ML VIAL 5000 UNITS SC ×3 (06:57→22:17)
[2020-01-13 07:02] LABS: Absolute Basophil Count 0.01 k/cumm (0.0-0.2); Absolute Lymphocyte Count 1.18 k/cumm (1.2-3.4); Absolute Monocyte Count 0.89 k/cumm (0.11-0.7); Absolute Neutrophil Count 5.05 k/cumm (1.2-6.7); Basophils % 0.1; Eosinophils % 1.4; HCT 34.3 % (36.0-46.0); Immature Grans % 1.4 %; Lymphocytes % 16.1; Mean Corp. HGB Concentration 32.1 g/dL (32.0-36.0); Mean Corpuscular Hemoglobin 27.9 pg (27.0-33.0); Mean Corpuscular Volume 87.1 fL (80-95); Monocytes % 12.1; Neutrophils % 68.9; Platelet Count 373 x1000/uL (130-400); RBC 3.94 m/cumm (4.00-5.20); RBC Distribution Width 13.1 % (11.7-14.6); White Blood Cell Count 7.33 k/cumm (4.4-10.8)
[2020-01-13 07:19] LABS: Anion Gap 8.7 mmol/L (3-11); BUN 12 mg/dL (7-18); C-Reactive Protein 6.89 mg/dL (0.0-0.3); CO2 23.3 mmol/L (21.0-32.0); CREATININE 0.91 mg/dL (0.55-1.02); Calcium 8.4 mg/dL (8.5-10.1); Chloride 103 mmol/L (98-107); Glucose 144 mg/dL (74-106); Potassium 4.2 mmol/L (3.5-5.1); Sodium 135 mmol/L (136-145)
[2020-01-13 07:41] VITALS: BP 137/67; PULSE 110; RESP 18; TEMP 36.5; O2SAT 93
[2020-01-13 07:53] LABS: Procalcitonin 0.8 ng/mL
[2020-01-13] MEDS: Insulin Aspart 300 UNITS/3 ML PEN SC ×4 (08:42→22:17)
[2020-01-13] MEDS: CEFEPIME 2 GM in Normal Saline 100 ML IVPB ×3 (08:42→23:58)
[2020-01-13] MEDS: Normal Saline Flush 10 ML SYR IVP (08:42)
[2020-01-13] MEDS: Losartan 50 MG TAB 150 MG PO (08:43)
[2020-01-13] MEDS: Omeprazole 20 MG CAPCR PO (08:43)
[2020-01-13] MEDS: Potassium Chloride 20 MEQ TABCR PO (08:43)
[2020-01-13] MEDS: metFORMIN 500 MG TAB 1000 MG PO ×2 (08:43→16:57)
[2020-01-13] MEDS: amLODIPine 5 MG TAB PO (08:43)
--- NOTE | 2020-01-13 11:44 | PTTR_ITS ---
Date of service: 01/13/20 Time of Service: 11:45 PT Notes Visit Reasons: COMMUNITY ACQUIRED PNEUMONIA, DEHYDRATION 01/13/2020 SUBJECTIVE: Beth stating she is very tired from not being able to sleep last night. She complains of some discomfort in the left hip. OBJECTIVE: Supine in bed. Agreeable to PT treatment. TRANSFERS Supine to sit: Min A Sit to supine: Min A Sit to stand: S Stand to sit: S GAIT Device: FWW Weight bearing: Full Assist: S Distance: 260' Deviation: Step through pattern ASSESSMENT: No complaints of pain with ambulation. Does complain of some left hip pain when getting in and out of bed. She notes she will have her daughter at home for a few days until she feels stronger. No LOB or path deviations with use of FWW. Pt would benefit from walker at home to increase her independence and decrease risk of falls. PLAN: Continue current POC. Treatment time: 15 minutes [id number] Emelyn Cheung, CORPORATE LOGISTICS MANAGER
[2020-01-13 11:47] VITALS: BP 123/90; PULSE 103; RESP 18; TEMP 36.6; O2SAT 94
--- NOTE | 2020-01-13 13:38 | W.NUTCONSULT ---
Date of service: 01/13/20 Time of Service: 13:38 Nutritional Consult NUTRITIONAL DIAGNOSIS: 69 year old female admitted with hypokalemia, ambulatory dysfunction, PMH: DM. BMI wnl for age. Labs and meds reviewed. Following regular diet with 100% completion. Not considered at nutritional risk at this time. MONITORING AND EVALUATION: weight, po intake, labs Time Spent in Nutritional Counseling and Treatment: 0 time spent face to face
--- NOTE | 2020-01-13 14:00 | CHAPLAIN ---
Beth was sitting at the edge of her bed when I visited, talking with a friend. She allowed me to interrupt, introduce myself and explain my role. I offered ongoing support.
--- NOTE | 2020-01-13 15:19 | PT.INTREAT ---
Date of service: 01/13/20 Time of Service: 15:19 PT Notes Visit Reasons: COMMUNITY ACQUIRED PNEUMONIA, DEHYDRATION 01/13/2020 SUBJECTIVE: Beth stating she would like to see the doctor to review her test results. She has 0/10 pain with PT this afternoon. OBJECTIVE: Seated EOB. Agreeable to PT treatment. TRANSFERS Sit to stand: S Stand to sit: S GAIT Device: FWW Weight bearing: Full Assist: S Distance: 260' Deviation: Step through pattern THEREX: Seated LE strengthening exercises including seated march, LAQ and ankle pumps. Encouraged pt to perform these regularly. ASSESSMENT: Pt tolerates straight plane ambulation well without LOB utilizing FWW. She was instructed in light strengthening exercises for her LE's to improve ability to get in and out of bed. PLAN: Continue current POC. Treatment time: Emelyn Cheung, UPHOLSTERER OUTSIDE
[2020-01-13 15:36] VITALS: BP 122/69; PULSE 100; RESP 20; TEMP 36.7; O2SAT 94
--- NOTE | 2020-01-13 15:59 | DM INPTCON_ITS ---
Date of service: 01/13/20 Time of Service: 16:00 Diabetes Inpatient Consult DESCRIPTION/ASSESSMENT: Appreciate diabetes consult for Beth Pratt here with sepsis who is well known to outpatient diabetes program. A1c 8.9 BMI 23 Holly manages diabetes with 2000mg metformin which she was reluctant to take for a long time secondary to fear of side effects. Historically she has declined insulin as an option. Here blood sugars 169-270 and 326mg/dl at admission taking moderate insulin co rrection. Met with Beth who states she is proud to have taken insulin and not crashed. She feels like blood sugars are reasonably well controlled and this has not been [id number] in the past. She has some knowledge of carbohydrate sources. INTERVENTION: Discussed her current diet which is inadequate in vegetables secondary to access problems. She is referred to [facility] and food shelves. Reinforced carbohydrate identification and portions. Given she is in reasonable control on small doses of insulin here, no further recommendation. Unclear if insulin is part of a discharge plan, however given her inadequate glycemic control with oral medications, insulin may be a good option at low dose. PLAN: Will follow blood sugars and support Beth with any medication changes Time Spent in Nutritional Counseling and Treatment: 15 minutes face to face
--- NOTE | 2020-01-13 16:37 | W.PM.PROGNOT ---
Date of Service Date of service: 01/13/20 Time of Service: 16:37 Assessment and Plan Assessment and plan (1) Enterobacter sepsis: Status: Acute Assessment and plan: Patient met criteria for sepsis with an identified source of infection along with acute kidney injury Along with transient hypotension and tachycardia and hypoxemia and acute mental status change on admission. Her septic picture has cleared and her renal function has returned to normal. She has responded well to the parenteral antibiotics which she received. (2) Gram-negative bacteremia: Status: Acute Assessment and plan: As above (3) Contusion of left hip: Status: Acute Assessment and plan: No radiologic evidence for fracture. Contusion is improving. Patient is now ambulating with use of a walker without pain or imbalance Qualifiers: Encounter type: initial encounter Qualified Code(s): S70.02XA - Contusion of left hip, initial encounter (4) Discharge planning issues: Status: Acute Assessment and plan: If her blood cultures come back no growth tomorrow, she can be discharged home with a week's course of ciprofloxacin. She should be set up for home health services including physical therapy and a walker. Although she feels she may need oxygen I do not feel she will need home oxygen upon discharge. Her O2 saturation is running 94% on room air. If there is any questionable need for oxygen we can do an amatory pulse oximetry in the morning Subjective Subjective Interval history since last seen: Patient is feeling markedly better today. Her right flank pain has improved. Her renal ultrasound suggested pyelonephritis of the right upper pole which is the probable source for her Enterobacter aerogenes. Spencer catheter is been discontinued. Patient is asking to have her telemetry remove which is no longer needed at this time since she remains in normal sinus rhythm. With respect to discharge she is asking how soon she can go home. Explained her that she had a severe bacteremia from the kidney infection and would like to make sure that her repeat blood cultures are are negative before she is discharged. Blood cultures were obtained today. She will finish her cefepime today and start on ciprofloxacin orally tomorrow since the Enterobacter was pansensitive to everything except for Ancef. I think as long as her blood cultures come back no growth tomorrow she can be discharged home tomorrow on oral ciprofloxacin. I would continue another week of oral antibiotics thus giving her a full 10-day course of antibiotics. Patient is also asking if she can resume her Lasix as her feet and ankles are getting edematous. I told her since her acute kidney injury has resolved we can resume low-dose Lasix. Exam Narrative Exam Narrative: Elderly female sitting up in her chair talking with her grandson. She is alert and oriented person place time circumstance. Lungs are clear to auscultation. Heart is regular rate and rhythm. Right flank is minimally tender only with firm percussion and palpation. Abdomen soft and nontender. Feet and ankles show 1+ edema. Objective Objective Clinical Data: Abnormal lab results 01/12/20 01/12/20 01/13/20 Range/Units 16:48 16:48 06:35 RBC 3.68 L (4.00-5.20) m/cumm Hgb 10.4 L (12.0-15.5) g/dL Hct 32.3 L (36.0-46.0) % Absolute Lymphocytes (1.2-3.4) k/cumm Absolute Monocytes 1.02 H (0.11-0.7) k/cumm Sodium 133 L 135 L (136-145) mmol/L Creatinine 1.07 H (0.55-1.02) mg/dL Glucose 190 H 144 H (74-106) mg/dL Calcium 8.1 L 8.4 L (8.5-10.1) mg/dL C-Reactive Protein 6.89 H (0.0-0.3) mg/dL 01/13/20 Range/Units 06:35 RBC 3.94 L (4.00-5.20) m/cumm Hgb 11.0 L (12.0-15.5) g/dL Hct 34.3 L (36.0-46.0) % Absolute Lymphocytes 1.18 L (1.2-3.4) k/cumm Absolute Monocytes 0.89 H (0.11-0.7) k/cumm Sodium (136-145) mmol/L Creatinine (0.55-1.02) mg/dL Glucose (74-106) mg/dL Calcium (8.5-10.1) mg/dL C-Reactive Protein (0.0-0.3) mg/dL Vital Signs Temperature 36.7 C 01/13/20 15:36 Temperature Source Temporal Artery Scan 01/13/20 15:36 Pulse 100 H 01/13/20 15:36 Pulse Rhythm Regular 01/13/20 07:43 Pulse 110 H 01/10/20 22:01 Respiratory Rate 20 01/13/20 15:36 Respiratory Effort 01/13/20 07:43 Respiratory Depth Normal 01/13/20 07:43 Respiratory Pattern Normal 01/13/20 07:43 Blood Pressure 122/69 01/13/20 15:36 Blood Pressure Mean 82 01/10/20 22:01 Blood Pressure Position Supine 01/10/20 20:13 Pulse Oximetry 94 L 01/13/20 15:36 Oxygen Delivery Method Room Air 01/13/20 15:36 Oxygen Flow Rate 0 01/13/20 15:36 Pain Level 0 01/13/20 15:36 Comment 01/13/20 07:41 Intake & Output 01/12/20 01/13/20 01/13/20 23:59 11:59 23:59 Intake Total 340 / 1242.083 740 / 980 240 / 980 Balance 340 / 992.083 740 / 980 240 / 980 Weight 70.7 kg Intake: IV 100 / 602.083 100 / 100 Oral 240 / 640 640 / 880 240 / 880 Other: Urine Color Yellow Urine Appearance Clear Clear Urine Odor None Comment void x 1 in br VOID X 1 Stool Size Large Moderate Stool Characteristics Soft Soft Brown Formed Voiding Methods Toilet Toilet Laboratory Results WBC 7.33 k/cumm (4.4-10.8) 01/13/20 06:35 RBC 3.94 m/cumm (4.00-5.20) L 01/13/20 06:35 Hgb 11.0 g/dL (12.0-15.5) L 01/13/20 06:35 Hct 34.3 % (36.0-46.0) L 01/13/20 06:35 MCV 87.1 fL (80-95) 01/13/20 06:35 MCH 27.9 pg (27.0-33.0) 01/13/20 06:35 MCHC 32.1 g/dL (32.0-36.0) 01/13/20 06:35 RDW 13.1 % (11.7-14.6) 01/13/20 06:35 Plt Count 373 x1000/uL (130-400) 01/13/20 06:35 MPV 10.0 fL (8.0-11.0) 01/13/20 06:35 Immature Gran % 1.4 % 01/13/20 06:35 Neutrophils % 68.9 01/13/20 06:35 Lymphocytes % 16.1 01/13/20 06:35 Monocytes % 12.1 01/13/20 06:35 Eosinophils % 1.4 01/13/20 06:35 Basophils % 0.1 01/13/20 06:35 Absolute Neutrophils 5.05 k/cumm (1.2-6.7) 01/13/20 06:35 Absolute Lymphocytes 1.18 k/cumm (1.2-3.4) L 01/13/20 06:35 Absolute Monocytes 0.89 k/cumm (0.11-0.7) H 01/13/20 06:35 Absolute Eosinophils 0.10 k/cumm (0.0-0.7) 01/13/20 06:35 Absolute Basophils 0.01 k/cumm (0.0-0.2) 01/13/20 06:35 PT 10.7 sec (9.3-11.0) 01/10/20 20:20 INR 1.1 (0.9-1.1) 01/10/20 20:20 APTT 28.3 sec (21.0-31.4) 01/10/20 20:20 Sodium 135 mmol/L (136-145) L 01/13/20 06:35 Potassium 4.2 mmol/L (3.5-5.1) 01/13/20 06:35 Chloride 103 mmol/L (98-107) 01/13/20 06:35 Carbon Dioxide 23.3 mmol/L (21.0-32.0) 01/13/20 06:35 Anion Gap 8.7 mmol/L (3-11) 01/13/20 06:35 BUN 12 mg/dL (7-18) D 01/13/20 06:35 Creatinine 0.91 mg/dL (0.55-1.02) 01/13/20 06:35 Estimated GFR/1.73 m2 >= 60.00 (mL/min/1.73m2) 01/13/20 06:35 Glucose 144 mg/dL (74-106) H 01/13/20 06:35 Lactate 1.3 mmol/L (0.6-1.4) 01/10/20 20:20 Calcium 8.4 mg/dL (8.5-10.1) L 01/13/20 06:35 Magnesium 2.6 mg/dL (1.8-2.4) H 01/11/20 06:25 Total Bilirubin 0.4 mg/dL (0.2-1.0) 01/11/20 06:25 AST 46 U/L (15-37) H 01/11/20 06:25 ALT 25 U/L (14-59) 01/11/20 06:25 Alkaline Phosphatase 58 U/L (46-116) 01/11/20 06:25 C-Reactive Protein 6.89 mg/dL (0.0-0.3) H 01/13/20 06:35 Total Protein 6.6 g/dL (6.4-8.2) 01/11/20 06:25 Albumin 2.5 g/dL (3.4-5.0) L 01/11/20 06:25 Procalcitonin 0.8 ng/mL 01/13/20 06:35 Urine Color Yellow (Yellow) 01/11/20 00:10 Urine Clarity Sl cloudy (Clear) 01/11/20 00:10 Urine pH 6.0 (5-8) 01/11/20 00:10 Ur Specific Burwell 1.025 (1.005-1.025) 01/11/20 00:10 Urine Protein >=300 mg/dL (Negative) H 01/11/20 00:10 Urine Ketones 15 mg/dL (Negative) H 01/11/20 00:10 Urine Blood Large (Negative) H 01/11/20 00:10 Urine Nitrite Positive (Negative) H 01/11/20 00:10 Urine Bilirubin Negative (Negative) 01/11/20 00:10 Urine Urobilinogen 0.2 EU/dL (Up TO 0.2) 01/11/20 00:10 Ur Leukocyte Esterase Trace (Negative) H 01/11/20 00:10 Urine RBC 3-5 HPF (0-2) H 01/11/20 00:10 Urine WBC 0-2 HPF (0-5) 01/11/20 00:10 Ur Epithelial Cells Rare HPF (Negative) 01/11/20 00:10 Urine Crystals Negative HPF (Negative) 01/11/20 00:10 Urine Bacteria Few HPF (Negative) 01/11/20 00:10 Urine Casts Negative LPF (Negative) 01/11/20 00:10 Urine Mucus Negative (Negative) 01/11/20 00:10 Ur Culture Indicated? C&s done as ordered 01/11/20 00:10 Urine Glucose 250 mg/dL (Negative) H 01/11/20 00:10
--- NOTE | 2020-01-13 16:41 | PDOC.CMPRO ---
- If Service Date Differs Date of service: 01/13/20 Time of Service: 16:41 Care Management Progress Note S/O: Beth was sitting up in a chair when CM met with her . She was smiling and pleasant and engaged readily with CM. Beth shared that she had received a call from [facility] in response to a referral sent by CM. She was disappointed that she would not be able to meet with them until discharge but is hopeful that she will be able to get a Life Alert. She stated that she never wants to go through what she did again. She shared that being on the floor, unable to get up for hours, was really frightening. Beth has noted that her lower legs and ankle are swollen. She is requesting that her Lasix be restarted. her provider is aware of the request. A: Beth is a 69 year old woman admitted on01/10/20 with Community Acquired Pneumonia P:Beth will likely be discharged home with new home health services services. A PT eval was requested and completed, with a recommendation for HH PT as well as a walker. Beth also feels she may need home O2. CM will continue to follow and support patient and discharge planning needs.
[2020-01-13] MEDS: Furosemide 20 MG TAB PO (16:57)
[2020-01-13 19:35] VITALS: BP 134/72; PULSE 99; RESP 18; TEMP 36.9; O2SAT 93
[2020-01-13] MEDS: Acetaminophen 325 MG TAB 650 MG PO (19:50)
[2020-01-13] MEDS: Ciprofloxacin 500 MG TAB PO (19:50)
[2020-01-13 23:10] VITALS: BP 148/89; PULSE 89; RESP 18; TEMP 36.9; O2SAT 95
[2020-01-14 03:20] VITALS: BP 134/69; PULSE 95; RESP 18; TEMP 36.4; O2SAT 92
[2020-01-14] MEDS: Heparin 5,000 UNITS/ML VIAL 5000 UNITS SC (06:30)
[2020-01-14 07:09] LABS: Anion Gap 8.1 mmol/L (3-11); BUN 10 mg/dL (7-18); CO2 25.9 mmol/L (21.0-32.0); CREATININE 0.77 mg/dL (0.55-1.02); Calcium 8.6 mg/dL (8.5-10.1); Chloride 103 mmol/L (98-107); Glucose 130 mg/dL (74-106); Sodium 137 mmol/L (136-145)
[2020-01-14 07:46] VITALS: BP 156/76; PULSE 91; RESP 18; TEMP 36.2; O2SAT 92
[2020-01-14 08:36] VITALS: O2SAT 92
--- NOTE | 2020-01-14 08:36 | PDOC.CMPRO ---
- If Service Date Differs Date of service: 01/14/20 Time of Service: 08:36 Care Management Progress Note S/O: A: Beth is a 69 year old woman admitted on01/10/20 with Community Acquired Pneumonia P:Beth will likely be discharged home with new home health services services. A PT eval was requested and completed, with a recommendation for HH PT as well as a walker. Beth also feels she may need home O2. CM will continue to follow and support patient and discharge planning needs.
[2020-01-14] MEDS: Ciprofloxacin 500 MG TAB PO (09:02)
[2020-01-14] MEDS: Furosemide 20 MG TAB PO (09:02)
[2020-01-14] MEDS: amLODIPine 5 MG TAB PO (09:02)
[2020-01-14] MEDS: Losartan 50 MG TAB 150 MG PO (09:02)
[2020-01-14] MEDS: metFORMIN 500 MG TAB 1000 MG PO ×2 (09:02→17:25)
[2020-01-14] MEDS: Omeprazole 20 MG CAPCR PO (09:03)
[2020-01-14] MEDS: Potassium Chloride 20 MEQ TABCR PO (09:03)
--- NOTE | 2020-01-14 09:50 | PTTR_ITS ---
Date of service: 01/14/20 Time of Service: 09:50 PT Notes Visit Reasons: COMMUNITY ACQUIRED PNEUMONIA, DEHYDRATION 01/14/2020 SUBJECTIVE: Beth stating she is going home today. She is going to have PT come to the house to help her out. OBJECTIVE: Seated in her chair finishing her breakfast. Agreeable to PT treatment. TRANSFERS Sit to stand: I Stand to sit: I GAIT Device: FWW Weight bearing: Full Assist: S Distance: 300' THEREX: Small REBECCA balance and tandem stance, 30 seconds each without LOB. Minimal sway noted. ASSESSMENT: Pt tolerates PT well today with good control with her gait using the FWW. She has minimal sway with small REBCECA activities without LOB. PLAN: Pt to be discharged home today with services. See discharge summary for details. Treatment time: 15 Emelyn Cheung, [employer]
[2020-01-14 12:32] VITALS: BP 139/75; PULSE 109; RESP 18; TEMP 36.6; O2SAT 93
[2020-01-14 13:13] VITALS: PULSE 103; PULSE 112; PULSE 114; RESP 12; RESP 20; O2SAT 94; O2SAT 95; O2SAT 96
--- NOTE | 2020-01-14 16:59 | DSE_ITS ---
Date of service: 01/14/20 Time of Service: 16:59 DS: Diagnosis Discharge Diagnosis (1) Enterobacter sepsis: Status: Acute (2) Gram-negative bacteremia: Status: Acute (3) Pyelonephritis: Status: Acute Asessment and Plan: R kidney (4) Contusion of left hip: Status: Acute (5) Type II diabetes mellitus with complication, uncontrolled: Status: Chronic (6) Dehydration: Status: Resolved (7) Hypokalemia: Status: Resolved (8) Hypomagnesemia: Status: Resolved (9) Hyponatremia: Status: Resolved Discharge Plan Disposition Patient Disposition: HOME W/HOME HEALTH SERVICE Condition: Stable Discharge Details Chief Complaint: Dizzy/Sync Clinical Impression: Fever, Community acquired pneumonia, Hyponatremia, Hypomagnesemia Reason For Visit: COMMUNITY ACQUIRED PNEUMONIA, DEHYDRATION Admit Date/Time: 01/10/20 21:57 Admit Provider: Selvin Jorge Attending Provider: Selvin Jorge Primary Care Provider: Jane Johnson ED Provider: Roly Rey Hospital Course Hospital Course: Ms Pratt is a 69 year old female with PMHx of T2 diabetes mellitus, as well as hypertension, chronic systolic CHF with latest EF of 55-60%, and tobacco abuse, who was admitted to [facility] hospitalist service on 01/10/2020 after presenting with flu-like symptoms and with suspision of pneumonia. However, the patient's clinical workup and symptoms ended up ruling out influenza, pneumonia, or bronchitis. She did end up growing Enterobacter aerogenes in her blood cultures done on admission, and the source for this is felt to be R-sided pyelonephritis. The patient's antibiotics were adjusted from cefepime to PO ciprofloxacin as we now know sensitivities. Repeat blood cultures done on 01/13/2020 show no growth to date. The patient is stable for discharge home today with 17 more doses of ciprofloxacin 500 mg PO BID to complete a 10 day course since the first negative blood culture. She is advised to take probiotics and OTC medications if she develops vaginal candidiasis. For 2 days following discharge, the patient is asked to take an extra 20 mg of lasix daily. She is being discharged home with referral for home health nursing and PT. Care for patient as well as completion of her discharge summary on day of discharge took 40 minutes. Home Meds and New Rx's Prescriptions: New ciprofloxacin HCl 500 mg Tablet 500 mg PO BID Qty: 17 RF: 0 nicotine 21 mg/24 hr Patch 24 Hour 21 mg transdermal DAILY PRN PRNQty: 10 RF: 0 Culturelle 15 billion cell capsule, sprinkle 1 cap PO DAILY Qty: 30 RF: 0 miconazole nitrate [Monistat 7] 2 % cream 1 appful VG QHS 7 Days Qty: 45 RF: 0 Continued cetirizine 10 mg tablet 10 mg PO DAILY Qty: 90 RF: 4 triamcinolone acetonide 15 GM cream 1 applic Topical BID PRNQty: 1 RF: 3 Slow-Mag 71.5 mg tablet,delayed release (DR/EC) 71.5 mg PO BID Qty: 60 RF: 2 omeprazole 20 mg capsule,delayed release(DR/EC) 20 mg PO DAILY Qty: 90 RF: 4 amlodipine 5 mg tablet 5 mg PO DAILY Qty: 90 RF: 4 valacyclovir 500 mg tablet 500 mg PO DAILY Qty: 90 RF: 3 Hold Instructions: Home Medication placed on hold at Doctor's office metformin 500 mg tablet 1,000 mg PO BID Qty: 120 RF: 12 losartan 100 mg tablet 150 mg PO DAILY Qty: 135 RF: 4 Flonase Sensimist 27.5 mcg/actuation spray,suspension 2 spray MARAH DAILY Qty: 5.9 RF: 0 furosemide 20 mg tablet 40 - 60 mg PO DAILY Qty: 90 RF: 6 No Action (DME) blood-glucose meter 1 EACH misc 1 ea Miscellaneous AC & HS Qty: 1 RF: 0 (DME) lancets [Soft Touch Lancets] Misc 1 ea Miscellaneous BID Qty: 100 RF: 3 (DME) OneTouch Ultra Test Strip 1 ea Miscellaneous BID Qty: 100 RF: 3 Discharge Instructions Instructions: Ciprofloxacin (By mouth), Kidney Infection (DC), Bacteremia (DC) Additional Instructions: Finish your antibiotics as prescribed. Return to the hospital with any fever, bleeding, chest pain, or shortness of breath. Good job on quitting smoking! Continue to stay quit! Care Plan Goals: Home with home health nursing and PT Referrals: Cameron Gonzalez NP [Emergency Nurse] - Activity:: Activity as Tolerated Equipment/Supplies:: No Equipment Needed Diet:: As Tolerated Discharge Orders Discharge Orders: Discharge Order (Routine); Ordered 01/14/20 Ordered By: Vivienne Hernandez DS: Summary Status at Discharge Functional status at discharge: uses cane/walker Overall status at discharge: patient is back to baseline Mental Status: mental status grossly normal Speech and Movement: speech and movement normal Mood: congruent mood Affect: normal affect Exam Narrative Exam Narrative: General: Very pleasant elderly female, A&OX3, sitting comfortably in a chair, excited to go home HEENT: EOMI, MMM Heart: RRR, mildly tachycardic, no m/r/g Lungs: CTAB Abdomen: soft, nontender, nondistended Extremities: 1+ BLE edema, no c/c. Psych Mental Status: mental status grossly normal Speech and Movement: speech and movement normal Mood: congruent mood Affect: normal affect DS: Data Vitals/I&O Vitals and I&O: Vital Signs Temperature 36.6 C 01/14/20 12:32 Temperature Source Tympanic 01/14/20 12:32 Pulse 109 H 01/14/20 12:32 Pulse Rhythm Regular 01/14/20 10:00 Pulse 110 H 01/10/20 22:01 Respiratory Rate 18 01/14/20 12:32 Respiratory Effort Non-Labored 01/14/20 10:00 Respiratory Depth Normal 01/14/20 10:00 Respiratory Pattern Normal 01/14/20 10:00 Blood Pressure 139/75 01/14/20 12:32 Blood Pressure Mean 82 01/10/20 22:01 Blood Pressure Position Supine 01/10/20 20:13 Pulse Oximetry 93 L 01/14/20 12:32 Oxygen Delivery Method Room Air 01/14/20 12:32 Oxygen Flow Rate 0 01/14/20 12:32 Pain Level 0 01/14/20 12:32 Comment 01/13/20 07:41 Intake & Output 01/13/20 01/14/20 01/14/20 23:59 11:59 23:59 Intake Total 440 / 1280 650 / 990 340 / 990 Balance 440 / 1280 650 / 990 340 / 990 Intake: IV 100 / 300 100 / 100 Oral 340 / 980 650 / 890 240 / 890 Other: Urine Color Yellow Urine Appearance Clear Clear Voiding Methods Toilet Data Completed and Pending Completed studies during hospitalization [Text1]: US renal 01/12/2020: Question of an ill-defined area of decreased echogenicity at the upper pole of the right kidney. The findings could represent pyelonephritis. A contrast enhanced CT is a more sensitive examination for detection of pyelonephritis. XR hip 01/11/2020: Hip joint spaces are well maintained. There is bilateral acetabular spurring as well as spurring from the greater trochanters. There is no evidence of fracture or dislocation. SI joints appear intact. Degenerative changes. No acute abnormalit CXR 01/10/2020: No acute pulmonary findings. CT head 01/10/2020: No acute abnormality. CT c-spine 01/10/2020: Degenerative changes, no acute abnormality. Labs on day of discharge: Labs from last 24 hours 01/14/20 06:30 Sodium 137 Potassium 4.0 Chloride 103 Carbon Dioxide 25.9 Anion Gap 8.1 BUN 10 Creatinine 0.77 Estimated GFR/1.73 m2 >= 60.00 Glucose 130 H Calcium 8.6 Preliminary micro results at discharge 01/13/20 08:07 Blood Culture - Preliminary Blood NO GROWTH 24 HOURS 01/13/20 08:00 Blood Culture - Preliminary Blood NO GROWTH 24 HOURS [facility] Medical History (Updated 01/14/20 @ 17:01 by Vivienne Hernandez MD) Anxiety (Inactive) Calcaneal spur (Inactive) Calcific tendinitis of left shoulder (Inactive) Injected: 06/08/2019 Chronic congestive heart failure (Inactive) echo.: EF 45-50% nuclear stress test negative; Chronic obstructive pulmonary disease (Inactive 09/19/15) 1st PFTs : severe copd Chronic systolic congestive heart failure, NYHA class 2 (Inactive 09/16/15) Diabetes mellitus type 2, noninsulin dependent (Inactive) diabetic nephropathy : 39.3 microalb./ no neuropathy Diabetes mellitus, insulin dependent (IDDM), controlled Diabetic nephropathy Essential hypertension Essential hypertension (Inactive 12/23/13) Heart failure History of alcoholism (Inactive) Hyperlipidemia Injury of foot (Inactive 10/01/03) Iron deficiency anemia (Inactive) Moderate nonproliferative diabetic retinopathy (Inactive 09/13/12) 11/15/14; OPTICAL EXPRESSIONS; INCREASE IN RETINOPATHY SINCE PREVIOUS VISIT (RIGHT EYE) Dr.shippee forte bilat.db [facility]; MILD RETINOPATHY-kb Normal colonoscopy (Acute 07/30/18) Dr White, repeat in 10 years Preoperative cardiovascular examination (Inactive) Pulmonary emphysema (Inactive 09/16/15) 1st PFTs -2014: pt refused to complete with post-bronchodil. 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 Pets and animals: Yes Pets and animals: cat(s) Current gender identity: female What type of physical activity do you participate in: none Irma/Restorationist: Denominational Special irma needs: No Do you feel safe at home: Yes Do you feel safe in your relationship?: Yes
--- NOTE | 2020-01-14 17:21 | CMDISCH_ITS ---
- If Service Date Differs Date of service: 01/14/20 Time of Service: 17:21 LACE Index Scoring Tool - Questions: Length of Stay (in days): 4 - 6 Acuity (Admit via E.D.?): Yes Comorbidities: Congestive Heart Failure, Chronic Pulmonary Disease E.D. Visits: 2 - Answers: Total Score: 14 Risk of Readmission: High Risk Care Management Discharge Reason for Hospitalization: Community Acquired Pneumonia Discharge Plan: Beth is being discharged home today with [facility] for nursing and PT. She was provided a FWW through [facility]. She will continue on oral abx as directed and follow up with primary care. [facility] will follow up to assist with [facility] and have already contacted the patient. Beth will be transported home via private car with family at time of discharge. Patient/Family Education Needs: Discharge education, limitations and follow up plan of care including ask me three and self management. Bteh states she feels ready for discharge and is ambulating well without oxygen. Daughter is present at time of discharge. Services Needed at Discharge: Home Health Care Services, Physical Therapy
[2020-01-14] MEDS: Insulin Aspart 300 UNITS/3 ML PEN SC (17:25)
--- NOTE | 2020-01-14 17:37 | PDOC.HHF2F_ITS ---
Home Health Certification Home Health Certification: 1. Encounter Date and Reason I certify that LINDA WAN was seen by Vivienne Hernandez on 01/14/20 and that I had a [id number] encounter with this patient that meets the physician face to face encounter requirements. 2. Clinical Findings Supporting Skilled Need and Homebound Status I certify that home health services are medically necessary, include either intermittent senior living and/or physical/speech therapy, and that this patient is homebound in that absences from the home require considerable and taxing effort and are infrequent or of short duration, or are attributable to the need to receive medical care. [X] (a) Attached documentation from encounter provides clinical findings supporting skilled need and homebound status (including what assistance patient requires to leave the home). The encounter with the patient was in whole, or in part, for the following medical condition, which is the primary reason for home health care: COMMUNITY ACQUIRED PNEUMONIA, DEHYDRATION Custodial: recent admission for gram negative sepsis due to pyelonephritis; CHF. Physical Therapy: eval and treat Homebound: unable to leave home without assistance 3. Certification and Authentication I certify that I composed the above information based on my clinical judgement relating to this patient's medical condition and, if applicable, clinical findings communicated to me by the NPP or inpatient physician who performed the Home Health Referral. All further orders will be obtained through __Jane Johnson (Community Based Physician - PCP)
[2020-01-14 17:57] VITALS: BP 142/77; PULSE 90; RESP 18; TEMP 36.4; O2SAT 90
--- NOTE | 2020-01-17 16:35 | INDS_ITS ---
Date of service: 01/17/20 PT Notes Visit Reasons: COMMUNITY ACQUIRED PNEUMONIA, DEHYDRATION Inpatient Physical Therapy Discharge Summary Dates: 01/17/2020 Dates of Service: 01/12/2020 through 01/14/2020 This is a clinical summary of care provided on the duration of dates listed above. No charge was made in the completion of this documentation. Referring Doctor: Padilla Mcgee MD PT Orders: PT CONSULT: Limited ability Precautions: Fall. Standard. Activity as tolerated. Patient Profile/Admitting Diagnosis: Patient is a 69-year-old female who presented to the ED on 01/10/2020 with the chief presentation of increasing weakness, cough, nausea, vomiting of 2 days, mild headache, and report of a fall at home. Patient is diagnosed with community-acquired pneumonia, dehydration, and hyponatremia. PMHX: Medical History (Updated 01/11/20 @ 00:57 by Slevin Jorge) Anxiety (Inactive) Calcaneal spur (Inactive) Calcific tendinitis of left shoulder (Inactive) Injected: 06/08/2019 Chronic congestive heart failure (Inactive) echo.: EF 45-50% nuclear stress test negative; Chronic obstructive pulmonary disease (Inactive 09/19/15) 1st PFTs : severe copd Chronic systolic congestive heart failure, NYHA class 2 (Inactive 09/16/15) Diabetes mellitus type 2, noninsulin dependent (Inactive) diabetic nephropathy : 39.3 microalb./ no neuropathy Diabetes mellitus, insulin dependent (IDDM), controlled Diabetic nephropathy Essential hypertension Essential hypertension (Inactive 12/23/13) Heart failure History of alcoholism (Inactive) Hyperlipidemia Injury of foot (Inactive 10/01/03) Iron deficiency anemia (Inactive) Moderate nonproliferative diabetic retinopathy (Inactive 09/13/12) 11/15/14; OPTICAL EXPRESSIONS; INCREASE IN RETINOPATHY SINCE PREVIOUS VISIT (RIGHT EYE) mild bilat.db retinopathy 02/08/19; [facility]; MILD RETINOPATHY-kb Normal colonoscopy (Acute 07/30/18) Dr White, repeat in 10 years Preoperative cardiovascular examination (Inactive) Pulmonary emphysema (Inactive 09/16/15) 1st PFTs : pt refused to complete with post-bronchodil. 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 neuropathy ([place]) Surgical History Cholecystectomy Colonoscopy - MAC History of esophagogastroduodenoscopy (EGD) (Chronic 07/30/18) Dr White Status post cholecystectomy (Inactive) Social History/Home Situation: Patient lives alone at the [address] here in [place] with 1 step to enter. She has a basement but she stresses that she does not need to go down as she has everything she needs on the main floor of the apartment. She reports that the washe/dryer area is about 100 feet from her apartment. Prior to this most recent hospitalization, patient was independent with all aspects of ADLs without the need for an assistive ambulatory device nor adaptive equipment. Equipment Owned/DME: None Subjective: NT Objective: General Observation: NT. See most recent AUTO CLAIM REPRESENTATIVE notes. Mental Status: NT. See most recent AUTO CLAIM REPRESENTATIVE notes. Pain: NT. See most recent AUTO CLAIM REPRESENTATIVE notes. ROM: Right Upper Extremity: Shoulder Flexion allows only up to 90 degrees. Shoulder abduction allows only up to 80 degrees. Elbow flexion WFL. Wrist flexion WFL. Opening and closing of hand WFL. Left Upper Extremity: Shoulder Flexion allows only up to 90 degrees. Shoulder abduction allows only up to 80 degrees. Elbow flexion WFL. Wrist flexion WFL. Opening and closing of hand WFL. Right Lower Extremity: Hip flexion WFL. Hip abduction WFL. Knee flexion WFL. Ankle dorsiflexion WFL. Ankle plantarflexion WFL. Left Lower Extremity: Hip flexion unable to bend beyond 90 due to left hip pain. Hip abduction WFL. Knee flexion WFL. Ankle dorsiflexion WFL. Ankle plantarflexion WFL. Strength: Right Upper Extremity: Shoulder flexors 3-/5. Shoulder abductors 3-/5. Elbow flexors 4/5. Elbow extensors 4/5. Senior Administrative Support strong. Left Upper Extremity: Shoulder flexors 3-/5. Shoulder abductors 3-/5. Elbow flexors 4/5. Elbow extensors 4/5. Senior Administrative Support strong. Right Lower Extremity: Hip flexors 4-/5. Hip abductors 4-/5. Knee flexors 4-/5. Knee extensors 4-/5. Ankle dorsiflexors 4-/5. Ankle plantarflexors 4-/5. Left Lower Extremity:Hip flexors 3-/5. Hip abductors 3-/5. Knee flexors 3/5. Knee extensors 3/5. Ankle dorsiflexors 4/5. Ankle plantarflexors 4/5. Sensation: Intact as to pain and pressure on bilateral lower extremities. Bed Mobility/Transfers: Rolling independent Supine to sit independent Sit to supine independent Sit to stand independent Stand to sit independent Bed to chair independent Chair to bed independent Gait: Patient tolerated level surface ambulation of 350 feet using front wheeled walker with supervision. Reciprocal step through gait pattern. Balance: Static Sitting: Normal Dynamic Sitting: Normal Static Standing: Fair Dynamic Standing: Fair Assessment: Difficulty with walking, need for assistive device for all mobility ADL performance, increased risk for falls, generalized weakness, and unsteadiness resulting from current diagnoses. Patient is a 69-year-old female who presented to the ED on 01/10/2020 with the chief presentation of increasing weakness, cough, nausea, vomiting of 2 days, mild headache, and report of a fall at home. Patient is diagnosed with community-acquired pneumonia, dehydration, and hyponatremia. Patient demonstrated significant mobility improvements during this episode of care Patient presented with clinical signs and symptoms consistent with current/admitting diagnoses that have resulted to mobility limitations, gait instability, generalized weakness, and impairment of motor control as demonstrated by the following impairment level findings: 1. Decreased strength to B LE major muscle groups 2. Impaired standing balance 3. Impaired activity tolerance 4. Limitation of joint range of motion in left shoulder and left hip Impairments continue to contribute to the following functional limitations: 1. Inability to safely ambulate without assistive device and physical assistance 2. Increase completion time for mobility ADL performance 3. Increased fall risk 4. Inability to negotiate steps alone safely Goals: Goals X1 week 1. Supine-Sit independent MET 2. Sit-Supine independent MET 3. Sit-Stand independent MET 4. Stand-Sit independent MET 5. Bed-Chair independent MET 6. Chair-Bed independent MET 7. Independent gait on level surface with use of least restrictive device for at least 300 feet without report of pain nor dyspnea NOT MET 8. Independent stair negotiation while holding onto bilateral rails for at least 10 steps without report of pain nor dyspnea NOT MET 9. Independent with home exercise program NOT MET 10. Good static and dynamic standing balance/tolerance NOT MET DISCHARGE RECOMMENDATIONS: Patient will benefit from the use of a front wheeled walker in order to increase activity tolerance and reduce fall risk at home. She will also benefit from the use of over the toilet commode in order to maximize independence with all toileting tasks. Patient will benefit from home health PT services in order to progress mobility level using least restrictive assistive ambulatory device, assess home safety, identify additional equipment needs, and establish a functional maintenance program that will increase ability of patient to remain at home. TREATMENT CODE/TIME: NC. Thank you very much for this referral. Nahed Miller PT, DPT, CLT [facility] [place], [place]
== END 2020-01-14 18:07 | disposition home health service (06) | DRG 872 ==
LOC: ER 22:37 → MS 22:46
PROVIDERS: Internal Medicine; Admitting Provider Family Medicine; Emergency Provider Emergency Medicine; PCP Family Medicine; Visit Provider Family Medicine
DX: A41.89 Other specified sepsis (principal); N10 Acute pyelonephritis; E87.1 Hypo-osmolality and hyponatremia; I50.32 Chronic diastolic (congestive) heart failure; N17.9 Acute kidney failure, unspecified; B96.89 Other specified bacterial agents as the cause of diseases classified elsewhere; E86.0 Dehydration; E11.65 Type 2 diabetes mellitus with hyperglycemia; F17.210 Nicotine dependence, cigarettes, uncomplicated; I11.0 Hypertensive heart disease with heart failure; E87.6 Hypokalemia; E83.42 Hypomagnesemia; F41.9 Anxiety disorder, unspecified; J44.9 Chronic obstructive pulmonary disease, unspecified; E11.21 Type 2 diabetes mellitus with diabetic nephropathy; Z79.4 Long term (current) use of insulin; E11.3291 Type 2 diabetes mellitus with mild nonproliferative diabetic retinopathy without macular edema, right eye; E78.5 Hyperlipidemia, unspecified; D50.9 Iron deficiency anemia, unspecified; F10.21 Alcohol dependence, in remission; S70.02XA Contusion of left hip, initial encounter; S50.02XA Contusion of left elbow, initial encounter; S50.01XA Contusion of right elbow, initial encounter; S80.02XA Contusion of left knee, initial encounter; W19.XXXA Unspecified fall, initial encounter; R26.89 Other abnormalities of gait and mobility
CPT/HCPCS: 36410; 36415; 76770; 80048; 80053; 84145; 85027; 87040; 87077; 87449; 93005; 94618; 96361; 96365; 97162; 97530; 99223; 99233; 99239; 99285; 70450; 71046; 72125; 73502; 81003; 81015; 83605; 83735; 85025; 85610; 85730; 86140; 87086; 87186; 93010; J0456; J1644; J3480

== ENCOUNTER 2020-01-26 10:54 | Outpatient (REF) | payer MEDICARE, MEDICAID, SELFPAY ==
[2020-01-26 12:28] LABS: Abs Immature Grans 0.02 k/cumm (0.0-0.09); Absolute Basophil Count 0.02 k/cumm (0.0-0.2); Absolute Eosinophil Count 0.17 k/cumm (0.0-0.7); Absolute Lymphocyte Count 1.71 k/cumm (1.2-3.4); Absolute Monocyte Count 0.78 k/cumm (0.11-0.7); Absolute Neutrophil Count 5.33 k/cumm (1.2-6.7); Basophils % 0.2; Eosinophils % 2.1; HCT 39.3 % (36.0-46.0); HGB 12.3 g/dL (12.0-15.5); Immature Grans % 0.2 %; Lymphocytes % 21.3; Mean Corp. HGB Concentration 31.3 g/dL (32.0-36.0); Mean Corpuscular Hemoglobin 28.1 pg (27.0-33.0); Mean Corpuscular Volume 89.7 fL (80-95); Mean Platelet Volume 9.8 fL (8.0-11.0); Monocytes % 9.7; Neutrophils % 66.5; Platelet Count 407 x1000/uL (130-400); RBC 4.38 m/cumm (4.00-5.20); RBC Distribution Width 13.6 % (11.7-14.6); White Blood Cell Count 8.03 k/cumm (4.4-10.8)
[2020-01-26 13:31] LABS: Bilirubin Negative (Negative); Blood Trace-intact (Negative); Clarity Clear (Clear); Glucose Negative (Negative); Ketones Negative (Negative); Leukocyte Esterase Negative (Negative); Nitrite Negative (Negative); Urobilinogen 0.2 EU/dL (Up TO 0.2); pH 5.5 (5-8)
[2020-01-26 13:54] LABS: RBC 0-2 HPF (0-2); WBC 0-2 HPF (0-5)
[2020-01-26 13:55] LABS: Bacteria Few HPF (Negative); C & S Indicated? C&S Done As Ordered; Casts Negative LPF (Negative); Crystals Negative HPF (Negative); Epithelial Cells Rare HPF (Negative); Mucus Negative (Negative); Other Cells Negative (Negative)
== END 2020-01-26 11:14 ==
LOC: LBN 10:54
PROVIDERS: PCP Family Medicine; Visit Provider Family Medicine
DX: A41.9 Sepsis, unspecified organism (principal); R50.9 Fever, unspecified; N12 Tubulo-interstitial nephritis, not specified as acute or chronic; N10 Acute pyelonephritis
CPT/HCPCS: 81003; 81015; 85025; 87086

== ENCOUNTER 2020-02-23 13:56 | Outpatient (REF) | payer MEDICARE, MEDICAID, SELFPAY ==
[2020-02-23 14:41] LABS: Bilirubin Negative (Negative); Blood Negative (Negative); Clarity Clear (Clear); Glucose Negative (Negative); Ketones Negative (Negative); Leukocyte Esterase Negative (Negative); Nitrite Negative (Negative); Urobilinogen 0.2 EU/dL (Up TO 0.2)
[2020-02-23 15:08] LABS: Bacteria Negative HPF (Negative); Crystals Negative HPF (Negative); Epithelial Cells Negative HPF (Negative); Mucus Negative (Negative); RBC Negative HPF (0-2); WBC 0-2 HPF (0-5)
[2020-02-23 15:09] LABS: C & S Indicated? No; Casts 0-2 Hyaline LPF (Negative)
== END 2020-02-23 14:16 ==
LOC: LBN 13:56
PROVIDERS: PCP Family Medicine; Visit Provider Family Medicine
DX: R30.0 Dysuria (principal)
CPT/HCPCS: 81003; 81015

== ENCOUNTER 2020-09-26 02:43 | Outpatient (CLI) | payer MEDICARE, MEDICAID, SELFPAY ==
[2020-09-26 13:03] LABS: Abs Immature Grans 0.02 10^3/uL (0.0-0.06); Absolute Basophil Count 0.02 10^3/uL (0.0-0.2); Absolute Lymphocyte Count 1.75 10^3/uL (1.2-3.4); Absolute Monocyte Count 0.99 10^3/uL (0.1-0.8); Absolute Neutrophil Count 6.59 10^3/uL (1.2-6.7); Basophils % 0.2; Eosinophils % 3.1; HCT 46.4 % (36.0-46.0); Immature Grans % 0.2; Lymphocytes % 18.1; MCH 27.3 pg (27.0-33.0); MCHC 30.2 % (32.0-36.0); MCV 90.6 fL (80-95); MPV 10.6 fL (8.0-11.0); Monocytes % 10.2; Neutrophils % 68.2; Nucleated RBC 0 %; Platelet Count 287 10^3/uL (130-400); RBC 5.12 10^6/uL (3.93-5.22); RDW-SD 43.5 fL; WBC 9.67 10^3/uL (4.4-10.8)
[2020-09-26 14:23] LABS: ALT 19 U/L (14-59); AST 15 U/L (15-37); Albumin 3.9 g/dL (3.4-5.0); Alkaline Phosphatase 46 U/L (46-116); Anion Gap 5.1 mmol/L (3-11); BUN 14 mg/dL (7-18); Bilirubin, Total 0.6 mg/dL (0.2-1.0); CO2 32.9 mmol/L (21.0-32.0); CREATININE 1.08 mg/dL (0.55-1.02); Chloride 104 mmol/L (98-107); Estimated GFR 50.01 (mL/min/1.73m2); Ferritin 12 ng/mL (8-252); Glucose 117 mg/dL (74-106); Potassium 4.5 mmol/L (3.5-5.1); Sodium 142 mmol/L (136-145); Total Protein 7.3 g/dL (6.4-8.2)
== END 2020-09-26 03:03 ==
PROVIDERS: PCP Nurse Practitioner Family; Visit Provider Nurse Practitioner Family
DX: I10 Essential (primary) hypertension (principal); E86.0 Dehydration; Z86.2 Personal history of diseases of the blood and blood-forming organs and certain disorders involving the immune mechanism
CPT/HCPCS: 36415; 80053; 82728; 85025

== ENCOUNTER 2020-10-08 02:21 | Outpatient (CLI) | payer MEDICARE, MEDICAID, SELFPAY ==
[2020-10-10 09:39] LABS: COVID-19 RT-PCR Result NEGATIVE (Negative)
== END 2020-10-08 02:41 ==
PROVIDERS: PCP Nurse Practitioner Family; Visit Provider Family Medicine
DX: Z11.59 Encounter for screening for other viral diseases (principal); Z01.811 Encounter for preprocedural respiratory examination
CPT/HCPCS: U0003

== ENCOUNTER 2020-10-11 05:31 | Outpatient (CLI) | payer MEDICARE, MEDICAID, SELFPAY ==
[2020-10-11] MEDS: Albuterol HFA 18 GM 200 PUFF INH IH (09:23)
[2020-10-11] MEDS: Inhaler, Assist Device 1 EACH MC (09:24)
--- NOTE | 2020-10-12 09:24 | W.PFT ---
Date of service: 10/11/20 Time of Service: 08:06 Pulmonary Function Test Result Interpretation Spirometry: Very severe obstructive airways disease or bronchodilator response Lung Volumes: Patient declined Diffusion Capacity: Patient declined Airway Pressure: Not measured Impression Very severe obstructive airways disease or bronchodilator response. Patient by me multiple lung volume and DLCO measurement When compared to previous one from 09/06/2015 patient has a 920 cc decline in FVC and a 640 cc decline in FEV1 Clinical Correlation therefore is recommended.
== END 2020-10-11 05:51 ==
PROVIDERS: PCP Nurse Practitioner Family; Visit Provider Nurse Practitioner Family
DX: J44.9 Chronic obstructive pulmonary disease, unspecified (principal); R06.2 Wheezing; F17.200 Nicotine dependence, unspecified, uncomplicated
CPT/HCPCS: 94060

== ENCOUNTER 2020-10-29 03:36 | Outpatient (CLI) | payer MEDICARE, MEDICAID, SELFPAY ==
[2020-10-30 19:20] LABS: COVID-19 RT-PCR UVMMC Result Negative (Negative)
== END 2020-10-29 03:56 ==
PROVIDERS: PCP Nurse Practitioner Family; Visit Provider Nurse Practitioner Family
DX: Z20.828 Contact with and (suspected) exposure to other viral communicable diseases (principal)
CPT/HCPCS: U0003

== ENCOUNTER 2020-11-22 21:23 | Outpatient (REF) | payer MEDICARE, MEDICAID, SELFPAY ==
[2020-11-22 21:06] LABS: Calculated LDL 73 mg/dL (<100); Cholesterol 139 mg/dL (<200); HDL Cholesterol 40 mg/dL (40-60); Hemoglobin A1C 7.3 % (<5.7); Triglyceride 132 mg/dL (<150)
== END 2020-11-22 21:43 ==
LOC: LBN 21:23
PROVIDERS: PCP Nurse Practitioner Family; Visit Provider Nurse Practitioner Family
DX: E11.9 Type 2 diabetes mellitus without complications (principal)
CPT/HCPCS: 80061; 83036

== ENCOUNTER 2020-11-23 03:15 | Outpatient (CLI) | payer MEDICARE, MEDICAID, SELFPAY ==
--- NOTE | 2020-11-23 08:00 | DI.RAD_ITS ---
EXAM: XR HIP PELVIS ADULT BL CLINICAL HISTORY: Bilateral hip pain,CHRONIC, G89.29,M25.552,M25.551. TECHNIQUE: 2D digital imaging was performed. COMPARISON: No exams were available for comparison FINDINGS: BONES: No acute fracture is present. No bony destructive lesion is seen. JOINTS: No dislocation present. Mild degenerative changes of the hips are seen bilaterally. Sacroili ac joints and symphysis pubis appear unremarkable. Mild degenerative changes are seen in the lower l umbar spine. SOFT TISSUE: Atherosclerosis. IMPRESSION: Mild degenerative changes of the hips bilaterally. DATA REPOSITORY: RADIATION DOSE DELIVERED:
== END 2020-11-23 03:35 ==
PROVIDERS: PCP Nurse Practitioner Family; Visit Provider Nurse Practitioner Family
DX: M16.0 Bilateral primary osteoarthritis of hip (principal); G89.29 Other chronic pain; M25.552 Pain in left hip; M25.551 Pain in right hip; M47.816 Spondylosis without myelopathy or radiculopathy, lumbar region
CPT/HCPCS: 73521

== ENCOUNTER 2020-12-31 04:24 | Outpatient (CLI) | payer MEDICARE, MEDICAID, SELFPAY ==
[2020-12-31 13:21] LABS: C-Reactive Protein 0.89 mg/dL (0.0-0.3)
[2020-12-31 15:45] LABS: ESR 59 mm/hr (<or=30)
== END 2020-12-31 04:25 | disposition home or self-care (01) ==
LOC: LBO 04:24
PROVIDERS: PCP Nurse Practitioner Family; Visit Provider Nurse Practitioner Family
DX: M16.0 Bilateral primary osteoarthritis of hip (principal); I50.30 Unspecified diastolic (congestive) heart failure; I11.0 Hypertensive heart disease with heart failure; R00.0 Tachycardia, unspecified; F17.210 Nicotine dependence, cigarettes, uncomplicated
CPT/HCPCS: 36415; 85652; 99214; 86140

== ENCOUNTER 2020-12-31 11:39 | Outpatient (CLI) | payer MEDICARE, MEDICAID, SELFPAY ==
--- NOTE | 2020-12-31 11:30 | RT.EKG_ITS ---
APPROVED REPORT Exam: Resting ECG Patient Location: O HR:106 bpm ECG Measurements Heart Rate 106 AXIS NV 141 P 75 QRSd 88 QRS 66 QT 357 T 83 QTc 475 Conclusion Sinus tachycardia...rate> 99 Anteroseptal infarct, old...Q >40mS, V1-V2 Baseline wander in lead(s) V6
== END 2020-12-31 11:40 | disposition home or self-care (01) ==
LOC: DI.CARD 11:42
PROVIDERS: PCP Nurse Practitioner Family; Visit Provider Internal Medicine Cardiovascular Disease
DX: R00.0 Tachycardia, unspecified (principal); R06.02 Shortness of breath; I50.30 Unspecified diastolic (congestive) heart failure
CPT/HCPCS: 93010

== ENCOUNTER 2021-01-18 18:29 | Outpatient (REF) | payer MEDICARE, MEDICAID, SELFPAY ==
[2021-01-20 11:55] LABS: COVID-19 RT-PCR UVMMC Result Negative (Negative)
== END 2021-01-18 18:30 | disposition home or self-care (01) ==
LOC: LBN 18:29
PROVIDERS: PCP Nurse Practitioner Family; Visit Provider Student in an Organized Health Care Education/Training Program
DX: Z20.822 Contact with and (suspected) exposure to COVID-19 (principal); R05 Cough
CPT/HCPCS: U0003

== ENCOUNTER → 2021-01-21 13:23 | Outpatient (BNVA) | payer MEDICARE, MEDICAID, SELFPAY | PROVIDERS: PCP Nurse Practitioner Family; Referring Provider Nurse Practitioner Family; Visit Provider Student in an Organized Health Care Education/Training Program | DX: M16.0 Bilateral primary osteoarthritis of hip (principal); M35.3 Polymyalgia rheumatica; E11.9 Type 2 diabetes mellitus without complications | CPT/HCPCS: 99213 ==

== ENCOUNTER 2021-03-04 09:29 | Outpatient (CLI) | payer MEDICARE, MEDICAID, SELFPAY ==
[2021-03-04 10:11] LABS: Abs Immature Grans 0.07 10^3/uL (0.0-0.06); Absolute Basophil Count 0.03 10^3/uL (0.0-0.2); Absolute Monocyte Count 0.87 10^3/uL (0.1-0.8); Basophils % 0.2; Eosinophils % 0.9; HCT 42.4 % (36.0-46.0); HGB 13.1 g/dL (11.2-15.7); Immature Grans % 0.5; Lymphocytes % 9.7; MCH 27.6 pg (27.0-33.0); MCHC 30.9 % (32.0-36.0); MCV 89.3 fL (80-95); Monocytes % 6.3; Neutrophils % 82.4; Nucleated RBC 0 %; Platelet Count 287 10^3/uL (130-400); RBC 4.75 10^6/uL (3.93-5.22); RDW 14.5 % (11.7-14.6); RDW-SD 47.2 fL; WBC 13.76 10^3/uL (4.4-10.8)
[2021-03-04 10:12] LABS: Absolute Eosinophil Count 0.12 10^3/uL (0.0-0.7); Absolute Lymphocyte Count 1.33 10^3/uL (1.2-3.4); Absolute Neutrophil Count 11.34 10^3/uL (1.2-6.7)
[2021-03-04 10:15] LABS: ESR 23 mm//hr (0-30)
[2021-03-04 10:49] LABS: ALT 24 U/L (14-59); AST 11 U/L (15-37); Albumin 3.5 g/dL (3.4-5.0); Alkaline Phosphatase 48 U/L (46-116); Anion Gap 10.2 mmol/L (3-11); BUN 31 mg/dL (7-18); Bilirubin, Total 0.7 mg/dL (0.2-1.0); C-Reactive Protein 0.13 mg/dL (0.0-0.3); CO2 28.8 mmol/L (21.0-32.0); CREATININE 1.3 mg/dL (0.55-1.02); Chloride 105 mmol/L (98-107); Estimated GFR 40.38 (mL/min/1.73m2); Glucose 103 mg/dL (74-106); Potassium 4.3 mmol/L (3.5-5.1); Sodium 144 mmol/L (136-145); Total Protein 6.8 g/dL (6.4-8.2)
== END 2021-03-04 09:30 | disposition home or self-care (01) ==
LOC: LBO 09:32
PROVIDERS: PCP Nurse Practitioner Family; Visit Provider Nurse Practitioner Family
DX: M35.3 Polymyalgia rheumatica (principal)
CPT/HCPCS: 36415; 80053; 85652; 85025; 86140

== ENCOUNTER 2021-03-08 17:04 | Outpatient (REF) | payer MEDICARE, MEDICAID, SELFPAY ==
[2021-03-08 21:59] LABS: Hemoglobin A1C 7.8 % (<5.7)
== END 2021-03-08 17:05 | disposition home or self-care (01) ==
LOC: LBN 17:04
PROVIDERS: PCP Nurse Practitioner Family; Visit Provider Nurse Practitioner Family
DX: E11.9 Type 2 diabetes mellitus without complications (principal)
CPT/HCPCS: 83036

== ENCOUNTER 2021-04-08 10:38 | Outpatient (CLI) | payer MEDICARE, MEDICAID, SELFPAY ==
--- NOTE | 2021-04-08 10:00 | DI.RAD_ITS ---
Exam(s) XR CHEST 2V PA LATERAL EXAM: XR CHEST 2V PA LATERAL CLINICAL HISTORY: cough, R05 TECHNIQUE: 2D digital imaging was performed. COMPARISON: CR,XR XR CHEST 2V PA LATERAL from 01/10/2020 FINDINGS: There has been no change in appearance of the chest x-ray compared to the prior examination. Cardiac silhouette and pulmonary vessels are unchanged. No acute infiltrates effusions or pneumothoraces ar e identified. Chronic changes are seen in the lungs which include scarring. The lungs appear hyperi nflated with flattened diaphragms suggesting COPD. IMPRESSION: No acute pulmonary findings. DATA REPOSITORY: RADIATION DOSE DELIVERED:
== END 2021-04-08 10:58 ==
PROVIDERS: PCP Nurse Practitioner Family; Visit Provider Physician Assistant
DX: R05 Cough (principal); J44.9 Chronic obstructive pulmonary disease, unspecified
CPT/HCPCS: 71046

== ENCOUNTER 2021-04-08 11:32 | Outpatient (REF) | payer MEDICARE, MEDICAID, SELFPAY ==
[2021-04-09 12:30] LABS: COVID-19 RT-PCR UVMMC Result Negative (Negative)
== END 2021-04-08 11:33 | disposition home or self-care (01) ==
LOC: LBN 11:32
PROVIDERS: PCP Nurse Practitioner Family; Visit Provider Physician Assistant
DX: Z20.822 Contact with and (suspected) exposure to COVID-19 (principal)
CPT/HCPCS: U0003; U0005

== ENCOUNTER 2021-04-12 16:41 | Outpatient (REF) | payer MEDICARE, MEDICAID, SELFPAY ==
[2021-04-12 20:07] LABS: ESR 11 mm/hr (0-30)
[2021-04-12 20:17] LABS: Anion Gap 6.6 mmol/L (3-11); BUN 25 mg/dL (7-18); C-Reactive Protein 0.23 mg/dL (0.0-0.3); CO2 31.4 mmol/L (21.0-32.0); CREATININE 1.3 mg/dL (0.55-1.02); Calcium 8.6 mg/dL (8.5-10.1); Chloride 104 mmol/L (98-107); Estimated GFR 40.38 (mL/min/1.73m2); Glucose 142 mg/dL (74-106); Potassium 4.5 mmol/L (3.5-5.1); Sodium 142 mmol/L (136-145)
== END 2021-04-12 16:42 | disposition home or self-care (01) ==
LOC: LBN 16:41
PROVIDERS: PCP Nurse Practitioner Family; Visit Provider Nurse Practitioner Family
DX: M35.3 Polymyalgia rheumatica (principal)
CPT/HCPCS: 80048; 85652; 86140

== ENCOUNTER 2021-04-18 01:01 | Outpatient (CLI) | payer MEDICARE, MEDICAID, SELFPAY ==
--- NOTE | 2021-04-18 07:42 | DI.RAD_ITS ---
Exam(s) RF JOINT INJECTION FLUORO GUID EXAM: RF JOINT INJECTION FLUORO GUID CLINICAL HISTORY: L HIP INJ UNDER FLUORO,BILAT OA,M16.0 TECHNIQUE: 2D and realtime digital imaging was performed. CONTRAST MATERIAL: Water soluble contrast was administered. COMPARISON: No exams were available for comparison FINDINGS: Fluoroscopy was provided for Dr. Valle during the performance of a left hip injection. Please re shama to the procedure report for complete details. RADIATION DOSE DELIVERED: emre Lamb=2.8 mGy
--- NOTE | 2021-04-18 14:30 | OPPNE_ITS ---
Date of service: 04/18/21 Time of Service: 14:30 Procedure Note Date of procedure: 04/18/21 Procedure: Bilateral Hip Injection with Fluoroscopic Guidance Surgeon/Proceduralist/Physician: Vicente Valle Procedure Diagnosis: Bilateral Hip Osteoarthritis Procedure Indications: Beth has had persistent pain of the RIGHT AND LEFT hip and groin. Noninvasive measures have been tried. To serve as both diagnostic and therapeutic, an injection under fluoroscopy was recommended. I had discussed the risks of the procedure and the patient elected to proceed. Procedure Description: Beth was greeted in the flouroscopy room. The consent was reviewed with the patient and signed. The patient was then placed in the supine position on the fluoroscopy table. The RIGHT hip was then prepped with Chloraprep. The anterolateral injection starting point was identiifed by bony landmarks and fluoroscopy. The skin and soft tissue in the tract of the injection was anesthetized with 1% Lidocaine. A spinal needle was then inserted deep into the hip joint at the level of the lateral femoral neck under fluoroscopic guidance. A small amount of Omnipaque solution was injected to confirm intraarticular placement. Once confirmed, the hip was injected with 5cc of 0.5% Bupivicaine and 80mg of Depo- Medrol. A bandaid was placed on the injection site. Attention was then turned to the LEFT hip. This hip was then prepped with Chloraprep. The anterolateral injection starting point was identiifed by bony landmarks and fluoroscopy. The skin and soft tissue in the tract of the injection was anesthetized with 1% Lidocaine. A spinal needle was then inserted deep into the hip joint at the level of the lateral femoral neck under fluorosco pic guidance. A small amount of Omnipaque solution was injected to confirm intraarticular placement. Once confirmed, the hip was injected with 5cc of 0.5% Bupivicaine and 80mg of Depo-Medrol. A bandaid was placed on the injection site. The patient tolerated the procedure well. She will record her pain and contact the office with an update.
--- NOTE | 2021-04-18 14:36 | DI.RAD_ITS ---
Exam(s) RF JOINT INJECTION FLUORO GUID EXAM: RF JOINT INJECTION FLUORO GUID CLINICAL HISTORY: R HIP INJ UNDER FLUORO,OA BOTH HIPS,M16.0 TECHNIQUE: 2D and realtime digital imaging was performed. CONTRAST MATERIAL: Water soluble contrast was administered. COMPARISON: No exams were available for comparison FINDINGS: Fluoroscopy was provided for Dr. Valle during the performance of a right hip injection. Please r efer to the procedure report for complete details. RADIATION DOSE DELIVERED: emre Lamb=2.8 mGy
[2021-04-18] MEDS: methylPREDNISolone ACETATE 80 MG/ML VIAL IM ×2 (15:31→15:35)
[2021-04-18] MEDS: Omnipaque 300 MG/ML 10 ML BTL IJ ×2 (15:33→15:35)
[2021-04-18] MEDS: Bupivacaine 0.5% Pres-Free 10 ML VIAL 5 ML IV (15:36)
== END 2021-04-18 01:21 ==
PROVIDERS: PCP Nurse Practitioner Family; Visit Provider Student in an Organized Health Care Education/Training Program
DX: M16.0 Bilateral primary osteoarthritis of hip (principal); M25.551 Pain in right hip; M25.552 Pain in left hip; R10.31 Right lower quadrant pain; R10.32 Left lower quadrant pain
CPT/HCPCS: 20610 ×2; 77002; J1040

== ENCOUNTER 2021-04-23 03:20 | Outpatient (CLI) | payer MEDICARE, MEDICAID, SELFPAY ==
[2021-04-23 16:58] LABS: Abs Immature Grans 0.03 10^3/uL (0.0-0.06); Absolute Basophil Count 0.01 10^3/uL (0.0-0.2); Absolute Eosinophil Count 0.04 10^3/uL (0.0-0.7); Absolute Lymphocyte Count 1.01 10^3/uL (1.2-3.4); Absolute Monocyte Count 0.72 10^3/uL (0.1-0.8); Basophils % 0.1; Eosinophils % 0.4; HCT 46.1 % (36.0-46.0); Immature Grans % 0.3; MCHC 30.4 % (32.0-36.0); MPV 10.2 fL (8.0-11.0); Monocytes % 6.4; Neutrophils % 83.8; Nucleated RBC 0 %; Platelet Count 244 10^3/uL (130-400); RBC 5.18 10^6/uL (3.93-5.22); RDW 14.4 % (11.7-14.6); RDW-SD 46.7 fL; WBC 11.21 10^3/uL (4.4-10.8)
[2021-04-23 17:03] LABS: Absolute Neutrophil Count 9.39 10^3/uL (1.2-6.7)
[2021-04-23 17:07] LABS: ESR 12 mm/hr (0-30)
[2021-04-23 18:36] LABS: ALT 40 U/L (14-59); AST 14 U/L (15-37); Albumin 3.5 g/dL (3.4-5.0); Alkaline Phosphatase 45 U/L (46-116); Anion Gap 9.3 mmol/L (3-11); BUN 35 mg/dL (7-18); Bilirubin, Total 0.9 mg/dL (0.2-1.0); C-Reactive Protein 0.09 mg/dL (0.0-0.3); CO2 29.7 mmol/L (21.0-32.0); CREATININE 1.2 mg/dL (0.55-1.02); Chloride 101 mmol/L (98-107); Estimated GFR 44.29 (mL/min/1.73m2); Glucose 266 mg/dL (74-106); Potassium 4.1 mmol/L (3.5-5.1); Sodium 140 mmol/L (136-145); Total Protein 6.5 g/dL (6.4-8.2); Uric Acid 5.5 mg/dL (2.6-6.0)
[2021-04-25 09:24] LABS: Cyclic Citrullinated Peptide <2.5 U/mL (<5.0)
[2021-04-25 13:30] LABS: Albumin 58.8 % (55.8-66.1); Total Protein 6.3 g/dL (6.3-8.2)
== END 2021-04-23 03:21 | disposition home or self-care (01) ==
PROVIDERS: PCP Nurse Practitioner Family; Visit Provider Nurse Practitioner Family
DX: M35.3 Polymyalgia rheumatica (principal); M79.18 Myalgia, other site; M25.50 Pain in unspecified joint
CPT/HCPCS: 36415; 80053; 85652; 86200; 84165; 84550; 85025; 86140

== ENCOUNTER 2021-05-08 15:34 | Outpatient (REF) | payer MEDICARE, MEDICAID, SELFPAY ==
[2021-05-08 13:48] LABS: Bilirubin Negative (Negative); Blood Trace-intact (Negative); Clarity Sl Cloudy (Clear); Glucose Negative (Negative); Ketones Negative (Negative); Leukocyte Esterase Negative (Negative); Nitrite Positive (Negative); Specific Gravity 1.015 (1.005-1.025); Urobilinogen 0.2 EU/dL (Up TO 0.2); pH 5.5 (5-8)
[2021-05-08 14:00] LABS: WBC >50 HPF (0-5)
[2021-05-08 14:01] LABS: Bacteria Many HPF (Negative); C & S Indicated? Yes; Casts Negative LPF (Negative); Crystals Negative HPF (Negative); Epithelial Cells Rare HPF (Negative); Mucus Negative (Negative)
== END 2021-05-08 15:35 | disposition home or self-care (01) ==
LOC: NCHCN 15:34
PROVIDERS: PCP Nurse Practitioner Family; Visit Provider Family Medicine
DX: R30.0 Dysuria (principal)
CPT/HCPCS: 87077; 81003; 81015; 87086; 87186

== ENCOUNTER 2021-05-15 16:27 | Outpatient (REF) | payer MEDICARE, MEDICAID, SELFPAY ==
[2021-05-17 11:48] LABS: COVID-19 RT-PCR UVMMC Result Negative (Negative)
== END 2021-05-15 16:28 | disposition home or self-care (01) ==
LOC: NCHCN 16:27
PROVIDERS: PCP Nurse Practitioner Family; Visit Provider Family Medicine
DX: Z20.822 Contact with and (suspected) exposure to COVID-19
CPT/HCPCS: U0003; U0005

== ENCOUNTER → 2021-06-20 09:53 | Outpatient (BNVA) | payer MEDICARE, MEDICAID, SELFPAY | PROVIDERS: PCP Nurse Practitioner Family; Referring Provider Nurse Practitioner Family; Visit Provider Internal Medicine Cardiovascular Disease | DX: I50.30 Unspecified diastolic (congestive) heart failure (principal); I13.0 Hypertensive heart and chronic kidney disease with heart failure and stage 1 through stage 4 chronic kidney disease, or unspecified chronic kidney disease; J44.9 Chronic obstructive pulmonary disease, unspecified; N18.9 Chronic kidney disease, unspecified; F17.210 Nicotine dependence, cigarettes, uncomplicated | CPT/HCPCS: 99214 ==

== ENCOUNTER 2021-06-27 02:03 | Outpatient (CLI) | payer MEDICARE, MEDICAID, SELFPAY ==
--- NOTE | 2021-06-27 | DI.DEXA_ITS ---
Exam(s) XR DEXA BONE DENSITY W/WO GLENN EXAM: XR DEXA BONE DENSITY W/WO GLENN CLINICAL HISTORY: OSTEOPOROSIS W/O CURRENT PATHOLOGICAL FRACTURE, M81.8 TECHNIQUE: Routine DEXA evaluation of the lumbar spine, hip, or forearm. COMPARISON: No exams were available for comparison FINDINGS: Performed on a Hologic unit. Lateral image: No compression fracture evident. Lumbar Spine total T-score: -1.4 Hip total T-score:-2.1. Independent reading at the femoral neck yields a T-score of -3.5 Forearm total T-score: -3.6 IMPRESSION: Bone mineral density measures in the osteoporosis range. Fracture risk is high. Note: Any spine fracture indicates 5x risk for subsequent spine fracture and 2x risk for subsequent h ip fracture. World Health Organization criteria for BMD interpretation classify patients: Normal...... T- Score at or above -1.0 Osteopenic... T- Score between -1.0 and -2.5 Osteoporosis... T-Score at or below -2.5
== END 2021-06-27 02:23 ==
PROVIDERS: PCP Nurse Practitioner Family; Visit Provider Nurse Practitioner Family
DX: M81.8 Other osteoporosis without current pathological fracture (principal); M85.89 Other specified disorders of bone density and structure, multiple sites; Z13.820 Encounter for screening for osteoporosis
CPT/HCPCS: 77080

== ENCOUNTER 2021-06-28 03:38 | Outpatient (CLI) | payer MEDICARE, MEDICAID, SELFPAY ==
--- NOTE | 2021-06-28 08:15 | DI.CTLCSR_ITS ---
Exam(s) CT CHEST LUNG CANCER SCREEN EXAM: CT CHEST LUNG CANCER SCREEN CLINICAL HISTORY: Screening for lung cancer, CURRENT SMOKER, F17.210 TECHNIQUE: CT examination of the chest was performed utilizing low-dose lung cancer screening protoc ol. COMPARISON: CT ABD PELVIS WITH CONTRAST from 06/08/2018 CT ABD PELVIS WITH CONTRAST from 06/08/2018 FINDINGS: Images obtained through the upper abdomen show unremarkable appearance of visualized portions of the liver and spleen. There is no mediastinal or hilar adenopathy. Mediastinal vascular structures appear intact by noncon trast criteria. Tracheobronchial tree appears intact. No pleural effusion or pleural-based mass. The heart is mildly enlarged. There is coronary artery calcification. There is a noncalcified pulmonary nodule in the right middle lobe with mean diameter about 7 millimet ers. No other significant intrapulmonary nodule seen. There is moderate diffuse central lobular emp hysema. IMPRESSION: 7 millimeter mean diameter right middle lobe intrapulmonary nodule identified. Lung RADS Cat 3 - Probably Benign: Probably benign finding(s) - short term follow-up suggested; inclu de nodules with a low likelihood of becoming a clinically active cancer. Follow-up LDCT recommended in 6 months. RADIATION DOSE DELIVERED: 77.99mGy.cm Total DLP 1.84mGy CTDIvol 77.99mGy.cm Total DLP 1.84mGy CTDIvol RADIATION OPTIMIZATION: All CT scans at this facility use at least one of these dose optimization te chniques: automated exposure control; mA and/or kV adjustment per patient size (includes targeted exa ms where dose is matched to clinical indication); or iterative reconstruction.
== END 2021-06-28 03:58 ==
PROVIDERS: PCP Nurse Practitioner Family; Visit Provider Student in an Organized Health Care Education/Training Program
DX: F17.210 Nicotine dependence, cigarettes, uncomplicated (principal); Z12.2 Encounter for screening for malignant neoplasm of respiratory organs; R91.1 Solitary pulmonary nodule
CPT/HCPCS: 71271

== ENCOUNTER 2021-07-01 03:41 | Outpatient (CLI) | payer MEDICARE, MEDICAID, SELFPAY ==
[2021-07-01 14:51] LABS: Anion Gap 5.8 mmol/L (3-11); BUN 36 mg/dL (7-18); CO2 29.2 mmol/L (21.0-32.0); CREATININE 1.3 mg/dL (0.55-1.02); Chloride 104 mmol/L (98-107); Estimated GFR 40.38 (mL/min/1.73m2); Glucose 270 mg/dL (74-106); NT-proBNP 7379 pg/mL (<300); Potassium 4.5 mmol/L (3.5-5.1); Sodium 139 mmol/L (136-145)
== END 2021-07-01 03:42 | disposition home or self-care (01) ==
LOC: LBO 03:42
PROVIDERS: PCP Nurse Practitioner Family; Visit Provider Internal Medicine Cardiovascular Disease
DX: I50.30 Unspecified diastolic (congestive) heart failure (principal); I10 Essential (primary) hypertension; J44.9 Chronic obstructive pulmonary disease, unspecified
CPT/HCPCS: 36415; 80048; 83880

== ENCOUNTER 2021-07-16 01:55 | Outpatient (CLI) | payer MEDICARE, MEDICAID, SELFPAY ==
[2021-07-16 11:15] LABS: ESR 13 mm/hr (0-30)
[2021-07-16 12:30] LABS: C-Reactive Protein 0.32 mg/dL (0.0-0.3)
[2021-07-16 12:37] LABS: Anion Gap 5.8 mmol/L (3-11); BUN 29 mg/dL (7-18); CO2 33.2 mmol/L (21.0-32.0); CREATININE 1.3 mg/dL (0.55-1.02); Calcium 10.1 mg/dL (8.5-10.1); Chloride 102 mmol/L (98-107); Estimated GFR 40.38 (mL/min/1.73m2); Glucose 106 mg/dL (74-106); NT-proBNP 10054 pg/mL (<300); Potassium 4.4 mmol/L (3.5-5.1); Sodium 141 mmol/L (136-145)
== END 2021-07-16 01:56 | disposition home or self-care (01) ==
LOC: LBO 01:56
PROVIDERS: Internal Medicine Cardiovascular Disease; PCP Nurse Practitioner Family; Visit Provider Nurse Practitioner Family
DX: M35.3 Polymyalgia rheumatica (principal); I50.30 Unspecified diastolic (congestive) heart failure; I10 Essential (primary) hypertension
CPT/HCPCS: 36415; 80048; 85652; 83880; 86140

== ENCOUNTER 2021-07-23 23:12 | Outpatient (CLI) | payer MEDICARE, MEDICAID, SELFPAY ==
--- NOTE | 2021-07-23 | DI.RAD_ITS ---
Exam(s) XR HIP RT COMPLETE AP PELVIS EXAM: XR HIP RT COMPLETE AP PELVIS CLINICAL HISTORY: ACUTE SEVERE RT HIP PAIN. TECHNIQUE: 2D digital imaging was performed of the right hip. Two images were obtained. AP pelvis a nd lateral right hip views were obtained. COMPARISON: No exams were available for comparison FINDINGS: BONES: No acute fracture is present. No bony destructive lesion is seen. JOINTS: No dislocation present. Mild hypertrophic spurring is seen in the acetabula bilaterally. The joint spaces otherwise are well maintained. SOFT TISSUE: Normal. Atherosclerosis. IMPRESSION: Mild degenerative changes of the right hip. DATA REPOSITORY: RADIATION DOSE DELIVERED:
== END 2021-07-23 23:32 ==
PROVIDERS: PCP Nurse Practitioner Family; Visit Provider Nurse Practitioner Family
DX: M25.551 Pain in right hip (principal); M16.11 Unilateral primary osteoarthritis, right hip
CPT/HCPCS: 73502

== ENCOUNTER 2021-08-01 03:55 | Outpatient (CLI) | payer MEDICARE, MEDICAID, SELFPAY ==
[2021-08-01 11:18] LABS: ESR 21 mm/hr (0-30)
[2021-08-01 13:42] LABS: Anion Gap 5.2 mmol/L (3-11); BUN 32 mg/dL (7-18); C-Reactive Protein 0.24 mg/dL (0.0-0.3); CO2 32.8 mmol/L (21.0-32.0); CREATININE 1.2 mg/dL (0.55-1.02); Calcium 9.2 mg/dL (8.5-10.1); Chloride 102 mmol/L (98-107); Estimated GFR 44.16 (mL/min/1.73m2); Glucose 240 mg/dL (74-106); Potassium 4.8 mmol/L (3.5-5.1); Sodium 140 mmol/L (136-145)
== END 2021-08-01 03:56 | disposition home or self-care (01) ==
LOC: LBO 03:55
PROVIDERS: Nurse Practitioner Family; PCP Nurse Practitioner Family; Visit Provider Internal Medicine Cardiovascular Disease
DX: M35.3 Polymyalgia rheumatica (principal)
CPT/HCPCS: 36415; 80048; 85652; 86140

== ENCOUNTER 2021-08-08 02:22 | Outpatient (CLI) | payer MEDICARE, MEDICAID, SELFPAY ==
--- NOTE | 2021-08-08 08:45 | DI.RAD_ITS ---
Exam(s) RF JOINT INJECTION FLUORO GUID EXAM: RF JOINT INJECTION FLUORO GUID CLINICAL HISTORY: R hip inj under fluoro, RT HIP PAIN, M25.551 TECHNIQUE: 2D and realtime digital imaging was performed. CONTRAST MATERIAL: Water soluble contrast was administered. COMPARISON: No exams were available for comparison FINDINGS: Fluoroscopy was provided for Dr. Valle during the performance of a right hip inject. Please refe r to the procedure report for complete details. RADIATION DOSE DELIVERED: emre Lamb=1.58 mGy
[2021-08-08] MEDS: Bupivacaine 0.5% Pres-Free 10 ML VIAL 50 ML IJ (15:22)
[2021-08-08] MEDS: Omnipaque 300 MG/ML 10 ML BTL IJ (15:23)
[2021-08-08] MEDS: methylPREDNISolone ACETATE 80 MG/ML VIAL IM (15:23)
--- NOTE | 2021-08-08 16:13 | W.PROCNOTE ---
Date of service: 08/08/21 Time of Service: 15:13 Procedure Note Date of procedure: 08/08/21 Procedure: Right Hip Injection with Fluoroscopic Guidance Surgeon/Proceduralist/Physician: Vicente Valle Procedure Diagnosis: Right Hip Osteoarthritis Procedure Indications: Beth has had persistent pain of the RIGHT hip and groin. With previous success with an injection, a repeat injection under fluoroscopy was recommended. I had discussed the risks of the procedure and the patient elected to proceed. Procedure Description: Beth was greeted in the flouroscopy room. The correct side was identified and the consent was reviewed with the patient and signed. The patient was then placed in the supine position on the fluoroscopy table. The RIGHT hip was then prepped with Chloraprep. The anterolateral injection starting point was identiifed by bony landmarks and fluoroscopy. The skin and soft tissue in the tract of the injection was anesthetized with 1% Lidocaine. A spinal needle was then inserted deep into the hip joint at the level of the lateral femoral neck under fluoroscopic guidance. A small amount of Omnipaque solution was injected to confirm intraarticular placement. Once confirmed, the hip was injected with 6cc of 0.5% Bupivicaine and 80mg of Depo-Medrol. A bandaid was placed on the injection site. The patient tolerated the procedure well and noted improvement in pre-injection pain.
== END 2021-08-08 02:42 ==
PROVIDERS: PCP Nurse Practitioner Family; Visit Provider Student in an Organized Health Care Education/Training Program
DX: M25.551 Pain in right hip; M16.11 Unilateral primary osteoarthritis, right hip; R10.31 Right lower quadrant pain
CPT/HCPCS: 20610; 77002; J1040

== ENCOUNTER → 2021-08-16 10:18 | Outpatient (BNVA) | payer MEDICARE, MEDICAID, SELFPAY | PROVIDERS: PCP Nurse Practitioner Family; Visit Provider Internal Medicine Cardiovascular Disease | DX: I50.30 Unspecified diastolic (congestive) heart failure (principal); I11.0 Hypertensive heart disease with heart failure; J43.2 Centrilobular emphysema; Z79.899 Other long term (current) drug therapy; I10 Essential (primary) hypertension | CPT/HCPCS: 99214 ==

== ENCOUNTER 2021-08-30 07:10 | Emergency (ER) | payer MEDICARE, MEDICAID, SELFPAY ==
[2021-08-30 07:19] VITALS: BP 150/66; PULSE 107; TEMP 36.7; O2SAT 91
--- NOTE | 2021-08-30 08:00 | W.ED.GENAD ---
Discharge Plan Disposition Patient Disposition: HOME Condition: Good Discharge Details Clinical Impression: Abdominal pain, Pulmonary nodule Primary Care Provider: Katherine Andre ED Provider: Hardy Benson Home Meds and New Rx's Prescriptions: Continued albuterol sulfate 90 mcg/actuation HFA aerosol inhaler 2 puff inhalation Q6H PRN (Reason: shortness of breath or wheezing) Qty: 18 RF: 4 prednisone 10 mg tablet 10 mg PO DAILY RF: 0 (DME) nebulizer accessories Kit See Rx Instructions .ROUTE .MEDSUPPLY Qty: 1 RF: 4 spironolactone 25 mg tablet 12.5 mg PO DAILY Qty: 30 RF: 3 furosemide 40 mg tablet 80 mg PO DAILY Qty: 90 RF: 4 (DME) Aerochamber MV Spacer See Rx Instructions .ROUTE .MEDSUPPLY Qty: 2 RF: 4 cetirizine 10 mg tablet 10 mg PO DAILY Qty: 90 RF: 4 metformin 500 mg tablet 1,000 mg PO BID Qty: 360 RF: 4 glipizide 5 mg tablet 5 mg PO DAILY Qty: 90 RF: 4 omeprazole 20 mg capsule,delayed release(DR/EC) 20 mg PO DAILY Qty: 90 RF: 4 (DME) OneTouch Ultra Blue Test Strip Strip See Rx Instructions .MEDSUPPLY Qty: 200 RF: 4 (DME) blood-glucose meter [OneTouch Ultra2 Meter] Kit See Rx Instructions .MEDSUPPLY Qty: 1 RF: 2 (DME) lancets [OneTouch Delica Plus Lancet] 33 gauge misc See Rx Instructions .MEDSUPPLY Qty: 200 RF: 4 amlodipine 5 mg tablet 5 mg PO DAILY Qty: 90 RF: 4 losartan 100 mg tablet 100 mg PO DAILY Qty: 90 RF: 4 losartan 50 mg tablet 50 mg PO DAILY Qty: 90 RF: 4 fluticasone propionate [Flonase Allergy Relief] 50 mcg/actuation spray,suspension 2 spray intranasal DAILY PRN (Reason: allergy symptoms) Qty: 16 RF: 4 ipratropium-albuterol 0.5 mg-3 mg(2.5 mg base)/3 mL solution for nebulization 3 ml inhalation Q6H Qty: 180 RF: 4 prednisone 5 mg tablet 5 mg PO DAILY Qty: 30 RF: 0 Bevespi Aerosphere 9-4.8 mcg HFA aerosol inhaler 1 puff inhalation BID Qty: 10.7 RF: 4 Hold Instructions: Has not started and does not wish to for now cholecalciferol (vitamin D3) [Vitamin D3] 25 mcg (1,000 unit) Capsule 25 mcg PO DAILY RF: 0 Discharge Instructions Instructions: Abdominal Pain (ED) Additional Instructions: At this time your laboratory work-up is reassuring. There is no evidence of colitis or significant abnormality intra-abdominally. The pain that you were having was likely a component of your constipation and hernia which has been reduced, and the constipation has been resolved. Please drink plenty of fluids and stay well-hydrated at home. Please stick with a easy diet that we discussed together. You can start taking the stool softener medication now. As we discussed, you still do have the pulmonary nodule. It appears unchanged at this time. Please continue with your scheduled follow-up for repeat imaging. If you notice any worsening of your symptoms, or any new symptoms such as vomiting, diarrhea, fever, chills, shortness of breath, chest pain, numbness, weakness, or fainting , please return immediately to the emergency department for reevaluation. Please follow up with your primary care provider as soon as possible for reassessment and reevaluation. As always, it was a pleasure participating in your medical care today. Referrals: Katherine Andre NP [Primary Care Provider] - Medical Decision Making 71-year-old female with a past medical history of pulmonary nodule, type 2 diabetes, congestive heart failure, COPD, hypertension, diabetes, diabetic neuropathy, chronic abdominal/ventral hernia, and previous abdominal surgeries cholecystectomy, presents today for evaluation of abdominal pain, diarrhea, and constipation. Patient states that for the last 3 days she has had constipation and abdominal pain. Initially the patient was bound up, she was only having small round hard nodules of stool. There was some associated dark blood with this. Pain is been located in the anterior abdominal area in the periumbilical space around her ventral hernia. However she also admits to generalized abdominal pain. She denies any vomiting, chest pain, or new shortness of breath. Over the last 24 hours she has transitioned from constipation to diarrhea has had multiple loose stools without any bright red blood. This is not change the abdominal pain. She has taken stool softeners and this did bring the symptoms about. She denies have any any history of hernia pain in the past. No other complaint this time. No urinary complaints. She does admit to chronic shortness of breath but denies any acute change. She denies any new cough. She denies any new sudden weight gain. She has been taking her Lasix pill as directed. Physical exam demonstrates an easily reducible minimally tender ventral hernia, mild generalized lower abdominal tenderness. An empty rectal vault. No blood on exam. Vital signs stable. Differential includes appendicitis, colitis, and much less likely hernia issue. We will get a CT scan, UA, lactate monitor closely and reassess. 9:30 AM Laboratory work-up is returned, no white count, bandemia, left shift of significance. Lactate was only 2.1. Heart rate has normalized, patient feels much better after hernia was reduced. Electrolytes stable, renal function is at patient's baseline. Urinalysis is negative for evidence of infection or kidney stone. Patient has had 2-3 bowel movement that were loose while here. She is feeling much better. Repeat abdominal exam shows no evidence of acute surgical abdomen. CT scan results have returned, no significant abnormality, no evidence of colitis per radiology. No evidence of an acute surgical abnormality. With exam being notably reassuring, pain resolved, and hernia demonstrating no evidence of incarceration or strangulation, I do feel that the patient is stable for discharge. Patient pulmonary nodule is unchanged. Recommend continued follow-up on an outpatient basis for repeat imaging. I discussed this with the patient she states that this is already scheduled. I have extensively reviewed the treatment plan and discharge instructions with the patient. I have addressed all patient concerns at this time. The patient was made aware of what symptoms to monitor for that would warrant a return to the emergency department. Discussed the plan with the patient, they demonstrate verbal understanding and agreement with our assessment and plan at this time. The documentation in this chart was dictated using [employer] dictation software. Please excuse any dictation errors. HPI General Date/Time Provider Initiated Documentation: 08/30/21 07:42. HPI Narrative: 71-year-old female with a past medical history of pulmonary nodule, type 2 diabetes, congestive heart failure, COPD, hypertension, diabetes, diabetic neuropathy, chronic abdominal/ventral hernia, and previous abdominal surgeries cholecystectomy, presents today for evaluation of abdominal pain, diarrhea, and constipation. Patient states that for the last 3 days she has had constipation and abdominal pain. Initially the patient was bound up, she was only having small round hard nodules of stool. There was some associated dark blood with this. Pain is been located in the anterior abdominal area in the periumbilical space around her ventral hernia. However she also admits to generalized abdominal pain. She denies any vomiting, chest pain, or new shortness of breath. Over the last 24 hours she has transitioned from constipation to diarrhea has had multiple loose stools without any bright red blood. This is not change the abdominal pain. She has taken stool softeners and this did bring the symptoms about. She denies have any any history of hernia pain in the past. No other complaint this time. No urinary complaints. She does admit to chronic shortness of breath but denies any acute change. She denies any new cough. She denies any new sudden weight gain. She has been taking her Lasix pill as directed. Related Data Home Medications Medication Instructions Recorded Confirmed albuterol sulfate 90 mcg/actuation 2 puff INHALATION Q6H PRN #18 g 09/25/20 08/30/21 aerosol inhaler inhalational spacing device #2 ea 09/26/20 08/16/21 cetirizine 10 mg tablet 10 mg PO DAILY #90 tab-cap 10/04/20 08/30/21 glipizide 5 mg tablet 5 mg PO DAILY #90 tab 10/30/20 08/30/21 metformin 500 mg tablet 1,000 mg PO BID #360 tab 10/30/20 08/30/21 omeprazole 20 mg capsule,delayed 20 mg PO DAILY #90 tab-cap 10/30/20 08/30/21 release blood sugar diagnostic #200 ea 11/26/20 08/16/21 blood-glucose meter #1 ea 11/26/20 08/16/21 lancets 33 gauge #200 ea 11/28/20 08/16/21 amlodipine 5 mg tablet 5 mg PO DAILY #90 tab-cap 12/11/20 08/30/21 losartan 100 mg tablet 100 mg PO DAILY #90 tab 12/17/20 08/30/21 losartan 50 mg tablet 50 mg PO DAILY #90 tab 12/17/20 08/30/21 fluticasone propionate 50 2 spray INTRANASAL DAILY PRN #16 g 04/15/21 08/30/21 mcg/actuation nasal spray,suspension nebulizer accessories #1 ea 04/19/21 08/16/21 ipratropium 0.5 mg-albuterol 3 mg 3 ml INHALATION Q6H #180 ml 05/24/21 08/30/21 (2.5 mg base)/3 mL nebulization soln furosemide 40 mg tablet 80 mg PO DAILY #90 tab 07/16/21 08/30/21 spironolactone 25 mg tablet 12.5 mg PO DAILY #30 tab 07/16/21 08/16/21 prednisone 10 mg tablet 10 mg PO DAILY 08/16/21 08/30/21 prednisone 5 mg tablet 5 mg PO DAILY #30 tab 08/19/21 08/30/21 glycopyrrolate 9 mcg-formoterol 1 puff INHALATION BID #10.7 g 08/26/21 08/30/21 4.8 mcg HFA aerosol inhaler cholecalciferol (vitamin D3) 25 mcg PO DAILY 08/30/21 08/30/21 [Vitamin D3] Previous Rx's Medication Instructions Recorded albuterol sulfate 90 mcg/actuation 2 puff INHALATION Q6H PRN #18 g 09/25/20 aerosol inhaler inhalational spacing device #2 ea 09/26/20 cetirizine 10 mg tablet 10 mg PO DAILY #90 tab-cap 10/04/20 glipizide 5 mg tablet 5 mg PO DAILY #90 tab 10/30/20 metformin 500 mg tablet 1,000 mg PO BID #360 tab 10/30/20 omeprazole 20 mg capsule,delayed 20 mg PO DAILY #90 tab-cap 10/30/20 release blood sugar diagnostic #200 ea 11/26/20 blood-glucose meter #1 ea 11/26/20 lancets 33 gauge #200 ea 11/28/20 amlodipine 5 mg tablet 5 mg PO DAILY #90 tab-cap 12/11/20 losartan 100 mg tablet 100 mg PO DAILY #90 tab 12/17/20 losartan 50 mg tablet 50 mg PO DAILY #90 tab 12/17/20 fluticasone propionate 50 2 spray INTRANASAL DAILY PRN #16 g 04/15/21 mcg/actuation nasal spray,suspension nebulizer accessories #1 ea 04/19/21 ipratropium 0.5 mg-albuterol 3 mg 3 ml INHALATION Q6H #180 ml 05/24/21 (2.5 mg base)/3 mL nebulization soln furosemide 40 mg tablet 80 mg PO DAILY #90 tab 07/16/21 spironolactone 25 mg tablet 12.5 mg PO DAILY #30 tab 07/16/21 prednisone 5 mg tablet 5 mg PO DAILY #30 tab 08/19/21 glycopyrrolate 9 mcg-formoterol 1 puff INHALATION BID #10.7 g 08/26/21 4.8 mcg HFA aerosol inhaler Allergies Allergy/AdvReac Type Severity Reaction Status Date / Time codeine AdvReac Severe Cardiac Verified 08/30/21 08:05 Dysrythmia indomethacin AdvReac Intermediate Cardiac Verified 08/30/21 08:05 Dysrythmia lisinopril AdvReac cough Verified 08/30/21 08:05 General Stated Complaint: Abd Prob BELKIS: 3 Review of Systems All systems reviewed & are unremarkable except as noted in HPI and below PFSH Medical History Benign positional vertigo Chronic obstructive pulmonary disease Cigarette smoker Declined lung cancer screening 09/21 Diabetic nephropathy Diabetic retinopathy Essential hypertension Generalized anxiety disorder GERD (gastroesophageal reflux disease) Heart failure with preserved ejection fraction LVEF 55-60% on ECHO 2019 Iron deficiency anemia Migraine aura without headache Osteoarthritis of hips, bilateral Polymyalgia rheumatica Type 2 diabetes mellitus Ventral hernia Surgical History History of esophagogastroduodenoscopy (EGD) (07/30/18) S/P cholecystectomy S/P colonoscopy (07/30/18) S/P tonsillectomy Family History Mother No problems noted. Father Diabetes Daughter No problems noted. Daughter No problems noted. Daughter No problems noted. Daughter No problems noted. 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 3.ENT: Atraumatic external nose and ears. Moist MM. Neck: Symmetric, trachea midline, No thyromegaly. 4.CVS: +S1/S2, No murmurs or gallops. Peripheral pulses 2+ and equal in all extremities. Brisk capillary refill in all extremities. 5.RESP: Unlabored respiratory effort. Clear to auscultation bilaterally. No wheezes rales or rhonchi 6.GI: Soft, nondistended, no guarding or rebound. There is a ventral hernia which is reducible. It is slightly tender but not overly tender. It is easily reduced. Bowel sounds are present but reduced. Generalized abdominal tenderness throughout the left and right lower region as well as the periumbilical region. Rectal exam was performed with female nurse Cesar at bedside, rectal exam demonstrates a vacuous rectal vault, no stool, no blood. 7.MSK: Normocephalic/Atraumatic, Extremities w/o deformity or ttp No cyanosis or clubbing, Normal movement of all extremities, no significant pitting edema of the lower extremities 8.Skin: Warm, Dry. No rashes or lesions. 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 Sensation grossly intact, no focal neurologic deficits. 10.Psych: (AAO) x3. Appropriate mood and affect Course Vital Signs Vital signs: Vital Signs Temperature 36.7 C 08/30/21 07:19 Pulse 107 H 08/30/21 07:19 Blood Pressure 150/66 H 08/30/21 07:19 Pulse Oximetry 91 L 08/30/21 07:19 Temperature 36.7 C 08/30/21 07:19 Temperature Source Temporal Artery Scan 08/30/21 07:19 Pulse 107 H 08/30/21 07:19 Blood Pressure 150/66 H 08/30/21 07:19 Blood Pressure Position Sitting 08/30/21 07:19 Pulse Oximetry 91 L 08/30/21 07:19 Oxygen Delivery Method Room Air 08/30/21 07:19 Oxygen Flow Rate 0 08/30/21 07:19 Pain Level 8 08/30/21 07:19
[2021-08-30 08:04] LABS: Abs Immature Grans 0.02 10^3/uL (0.0-0.06); Absolute Basophil Count 0.02 10^3/uL (0.0-0.2); Absolute Eosinophil Count 0.09 10^3/uL (0.0-0.7); Absolute Lymphocyte Count 1.31 10^3/uL (1.2-3.4); Absolute Monocyte Count 0.67 10^3/uL (0.1-0.8); Absolute Neutrophil Count 7.06 10^3/uL (1.2-6.7); Basophils % 0.2; HCT 43.5 % (36.0-46.0); HGB 12.7 g/dL (11.2-15.7); Immature Grans % 0.2; Lymphocytes % 14.3; MCH 26.2 pg (27.0-33.0); MCHC 29.2 % (32.0-36.0); MCV 89.7 fL (80-95); MPV 10.1 fL (8.0-11.0); Monocytes % 7.3; Nucleated RBC 0 %; Platelet Count 261 10^3/uL (130-400); RBC 4.85 10^6/uL (3.93-5.22); RDW 14.6 % (11.7-14.6); RDW-SD 47.9 fL; WBC 9.17 10^3/uL (4.4-10.8)
[2021-08-30 08:05] LABS: Lactate 2.1 mmol/L (0.6-1.4)
[2021-08-30 08:16] LABS: ALT 56 U/L (14-59); AST 25 U/L (15-37); Albumin 3.5 g/dL (3.4-5.0); Alkaline Phosphatase 69 U/L (46-116); BUN 31 mg/dL (7-18); Bilirubin, Total 1.1 mg/dL (0.2-1.0); CREATININE 1.4 mg/dL (0.55-1.02); Calcium 9.2 mg/dL (8.5-10.1); Chloride 102 mmol/L (98-107); Estimated GFR 36.96 (mL/min/1.73m2); Glucose 119 mg/dL (74-106); Potassium 3.8 mmol/L (3.5-5.1); Sodium 140 mmol/L (136-145); Total Protein 7.3 g/dL (6.4-8.2)
[2021-08-30 08:32] LABS: Bilirubin Negative (Negative); Blood Trace-intact (Negative); Clarity Clear (Clear); Glucose Negative (Negative); Ketones Negative (Negative); Leukocyte Esterase Negative (Negative); Nitrite Negative (Negative); Urobilinogen 0.2 EU/dL (Up TO 0.2); pH 5.5 (5-8)
[2021-08-30 08:41] LABS: Bacteria Negative HPF (Negative); C & S Indicated? No; Casts 0-2 Hyaline LPF (Negative); Crystals Negative HPF (Negative); Epithelial Cells Rare HPF (Negative); Mucus Negative (Negative); RBC 0-2 HPF (0-2); WBC Negative HPF (0-5)
--- NOTE | 2021-08-30 09:15 | DI.CT_ITS ---
Exam(s) CT CHEST/ABD/PEL WO EXAM: CT CHEST/ABD/PEL WO CLINICAL HISTORY: constipation, diarrhea, abd pain, ventral hernia TECHNIQUE: CT examination of the chest, abdomen, and pelvis was performed without contrast administr ation. COMPARISON: CT ABD PELVIS WITH CONTRAST from 06/08/2018 CT ABD PELVIS WITH CONTRAST from 06/08/[address] CHEST LUNG CANCER SCREEN from 06/28/[address] CHEST LUNG CANCER SCREEN from 06/28/2021 FINDINGS: The lungs are show moderate changes of central lobular emphysema. There are areas of apparent scarri ng in the left lung base. There is a calcified right middle lobe pulmonary nodule. There is a 6-7 m illimeter mean diameter noncalcified right middle lobe intrapulmonary nodule medially. This was noted on prior examination of June 28. Follow-up chest CT is recommended in December 2021. There is no pleural effusion seen. There is no mediastinal or hilar adenopathy. Pulmonary arteries are unremarkable by noncontrast criteria. Thoracic aorta and major branches appear intact with no evidence of aneurysm. No bony abnormality seen in the thorax. The liver is normal appearance. There is a prior cholecystectomy. No gross evidence of biliary dilata tion although the common bile duct is not well seen. There is question of mild wall thickening of the duodenum and subtle increased attenuation in the para duodenal fat, inflammation not excluded. Pleas e correlate clinically. No abnormality seen involving the spleen. Pancreas appears intact. The adrenals are unremarkable in appearance. The kidneys appear intact with no evidence of hydroneph rosis or nephrolithiasis. There are presumed vascular calcifications of the kidneys. Abdominal aorta and major visceral branches appear intact. There is a supra umbilical uncomplicated fat containing ventral hernia, this measures up to about 5 c m in diameter. No bowel involvement. No significant abdominal or pelvic adenopathy. Control Valve Technician structures appear unremarkable for age. No focal bowel pathology apart from aforementioned questionable changes of the duodenum.. No evidence of appendicitis or diverticulitis. IMPRESSION: Question of duodenal inflammatory process, please correlate clinically. No other acute findings. RADIATION DOSE DELIVERED: 1,820.43mGy.cm Total DLP 1,820.43mGy.cm Total DLP 21.39mGy CTDIvol
[2021-08-30 09:42] VITALS: BP 143/64; PULSE 102; RESP 18; TEMP 36.6; O2SAT 92
[2021-08-30 09:48] VITALS: BP 143/64; PULSE 102; RESP 18; TEMP 36.6; O2SAT 92
== END 2021-08-30 09:49 | disposition home or self-care (01) ==
PROVIDERS: Emergency Provider Student in an Organized Health Care Education/Training Program; PCP Nurse Practitioner Family
DX: R10.33 Periumbilical pain (principal); K43.9 Ventral hernia without obstruction or gangrene; R30.0 Dysuria; R91.1 Solitary pulmonary nodule
CPT/HCPCS: 36415; 71250; 80053; 99284; 74176; 81003; 81015; 83605; 85025

== ENCOUNTER 2021-09-03 08:01 | Emergency (ER) | payer MEDICARE, MEDICAID, SELFPAY ==
[2021-09-03 08:01] VITALS: BP 120/82; PULSE 103; RESP 15; TEMP 36.4; O2SAT 88
--- NOTE | 2021-09-03 08:15 | DI.CT_ITS ---
Exam(s) CT ABDOMEN PELVIS W EXAM: CT ABDOMEN PELVIS W INDICATION: worsening abd pain. COMPARISON: CT CT CHEST/ABD/PEL WO from 08/30/2021 TECHNIQUE: FINDINGS: CT examination of the abdomen and pelvis was performed with a bolus infusion of 100 cc of Omnipaque 3 50. Images obtained through the lung bases are unremarkable. Note is made of mild cardiomegaly and coronary artery calcifications. Prior CT of August 30 raise the possibility of duodenal wall thickening or Rylie duodenal fat edema , these findings are not appreciated on today's examination and there is an unremarkable appearance o f the stomach and duodenum by CT criteria. The liver is unremarkable in appearance. Prior cholecystectomy noted. No biliary dilatation. Intrahepatic bile ducts are CT normal. Pancreas appears normal. Spleen is unremarkable in appearance. Adrenals appear normal. The kidneys are unremarkable with no evidence of hydronephrosis, nephrolithiasis, or renal mass. The re are probable bilateral renal vascular calcifications.. Urinary bladder unremarkable. Abdominal aorta is of normal diameter and no major vascular abnormality is seen. Supraumbilical fat containing ventral hernia again noted period. No abdominal or pelvic adenopathy. SUPERVISOR POULTRY PROCESSING structures appear intac for age t. Appendix is normal. No evidence of diverticulitis or bowel obstruction. IMPRESSION: No evidence of acute intra-abdominal process. RADIATION DOSE DELIVERED: 837mGy.cm Total DLP 837mGy.cm Total DLP 16.86mGy CTDIvol RADIATION OPTIMIZATION: All CT scans at this facility use at least one of these dose optimization te chniques: automated exposure control; mA and/or kV adjustment per patient size (includes targeted exa ms where dose is matched to clinical indication); or iterative reconstruction.
--- NOTE | 2021-09-03 08:28 | W.ED.GENAD ---
Discharge Plan Disposition Patient Disposition: HOME Condition: Stable Discharge Details Clinical Impression: Abdominal pain, Constipation Primary Care Provider: Katherine Andre ED Provider: Padilla Montesinos Home Meds and New Rx's Prescriptions: Continued albuterol sulfate 90 mcg/actuation HFA aerosol inhaler 2 puff inhalation Q6H PRN (Reason: shortness of breath or wheezing) Qty: 18 RF: 4 prednisone 10 mg tablet 10 mg PO DAILY RF: 0 (DME) nebulizer accessories Kit See Rx Instructions .ROUTE .MEDSUPPLY Qty: 1 RF: 4 spironolactone 25 mg tablet 12.5 mg PO DAILY Qty: 30 RF: 3 furosemide 40 mg tablet 80 mg PO DAILY Qty: 90 RF: 4 (DME) Aerochamber MV Spacer See Rx Instructions .ROUTE .MEDSUPPLY Qty: 2 RF: 4 cetirizine 10 mg tablet 10 mg PO DAILY Qty: 90 RF: 4 metformin 500 mg tablet 1,000 mg PO BID Qty: 360 RF: 4 glipizide 5 mg tablet 5 mg PO DAILY Qty: 90 RF: 4 omeprazole 20 mg capsule,delayed release(DR/EC) 20 mg PO DAILY Qty: 90 RF: 4 (DME) OneTouch Ultra Blue Test Strip Strip See Rx Instructions .MEDSUPPLY Qty: 200 RF: 4 (DME) blood-glucose meter [OneTouch Ultra2 Meter] Kit See Rx Instructions .MEDSUPPLY Qty: 1 RF: 2 (DME) lancets [OneTouch Delica Plus Lancet] 33 gauge misc See Rx Instructions .MEDSUPPLY Qty: 200 RF: 4 amlodipine 5 mg tablet 5 mg PO DAILY Qty: 90 RF: 4 losartan 100 mg tablet 100 mg PO DAILY Qty: 90 RF: 4 losartan 50 mg tablet 50 mg PO DAILY Qty: 90 RF: 4 fluticasone propionate [Flonase Allergy Relief] 50 mcg/actuation spray,suspension 2 spray intranasal DAILY PRN (Reason: allergy symptoms) Qty: 16 RF: 4 ipratropium-albuterol 0.5 mg-3 mg(2.5 mg base)/3 mL solution for nebulization 3 ml inhalation Q6H Qty: 180 RF: 4 prednisone 5 mg tablet 5 mg PO DAILY Qty: 30 RF: 0 Bevespi Aerosphere 9-4.8 mcg HFA aerosol inhaler 1 puff inhalation BID Qty: 10.7 RF: 4 Hold Instructions: Has not started and does not wish to for now cholecalciferol (vitamin D3) [Vitamin D3] 25 mcg (1,000 unit) Capsule 25 mcg PO DAILY RF: 0 cephalexin 500 mg tablet 500 mg PO QID 5 Days Qty: 20 RF: 0 Discharge Instructions Instructions: Constipation (ED), Abdominal Pain (ED) Additional Instructions: Your laboratory values and CT imaging does not reveal any obvious emergent process. Plenty of fluids to avoid dehydration. Continue your medications as directed as well as your fiber agents and stool softeners. Your C. difficile test for your stool was negative but other stool tests are pending. Please follow-up with your primary care provider on Thursday as already scheduled, discuss your recent ER visits, and your ongoing symptoms. As we discussed outpatient referral to GI may be indicated for further evaluation. I am also giving you the name and number of our local general surgical team for further evaluation and potential colonoscopy of your ongoing symptoms. Please watch for new or worsening symptoms and return to the ER for any concerns. Referrals: Jessica Mcfadden DO [OSTEOPATHIC DOCTOR] - Discharge Data Discharge Date/Time-TO BE ENTERED AT DEPARTURE: 09/03/21 11:08 Medical Decision Making This is a 71-year-old female presenting to the ER for ongoing abdominal cramping, diarrhea and constipation. Patient seen in the ER on 08-30-21 for the same and discharged with fiber supplementation and using stool softeners. Scheduled be seen by her primary care provider on Thursday. Clinically patient appears well, nontoxic, is afebrile, has a nonsurgical abdominal examination. Ventral hernia which is soft, easily reduced. Given her age, multiple colitides, ongoing symptoms, would like to repeat laboratory values that were obtained on the and I do believe obtaining a repeat CT although this time specifically of the abdomen and pelvis with contrast is reasonable. Patient is agreeable to this plan. Will be given 1 L IV fluid in the meantime given her borderline recent GFR. She denies any chest pain or shortness of breath. Patient is concerned that her stool was not tested during her last visit. Will test stool now. Laboratory values reveal a normal white blood cell count of 9.11, no evidence of anemia, platelet count 257. Electrolytes are unremarkable, creatinine is 1.3 with a GFR of 40.26. Total bili of 1.2 LFTs otherwise unremarkable. Urinalysis unremarkable. C. difficile negative, stool pathogens pending. Lactate was 2.0, this is actually lower than her previous ER visit. Again, abdomen is soft, nonsurgical. Patient is receiving a liter of IV fluid. Clinical presentation is not consistent with ischemic bowel. Awaiting CT imaging CT imaging unremarkable per radiology. Discussed work-up with patient. Patient is frustrated that she is not getting answers as to why she is alternating between diarrhea and constipation. Clinically she appears well, nontoxic. Abdomen is soft, easily reducible hernia. We had a lengthy discussion regarding the importance of outpatient follow-up. She is scheduled to be seen by her primary care on Thursday, I placed a call to her primary care provider in an attempt to make them aware of her ongoing symptoms, unfortunately primary care provider was not working today and I requested to talk with the on-call provider. Prior to discharge of the patient, I never received a phone call back. I will be sure to see see the PCP on the note. Discussed that outpatient referral to GI and/or surgery for potential further evaluation, colonoscopy, etc. may be indicated for her ongoing symptoms. Patient plans to continue taking her stool softener and fiber supplements. Strict discharge and return precautions provided. O2 sat did dip to 86, I had the patient take deep breaths, witnessed a good pleth, and her O2 sat did come up to 91. Patient denies any shortness of breath, difficulty breathing. Patient does state that she is a smoker and that her oxygen level does sometimes run low, she feels as though her breathing is at her baseline. Denies any chest pain. This documentation was generated using [employer] system, please disregard any oddities of phrase or misspellings. Medical Records Medical records reviewed: Yes I reviewed the patient's medical records. Imaging Data Radiologic Study: Attestation: I personally reviewed and interpreted this imaging study as follows: Imaging: CT Scan Radiologist's impression: Exam(s) CT ABDOMEN PELVIS W EXAM: CT ABDOMEN PELVIS W INDICATION: worsening abd pain. COMPARISON: CT CT CHEST/ABD/PEL WO from 08/30/2021 TECHNIQUE: FINDINGS: CT examination of the abdomen and pelvis was performed with a bolus infusion of 100 cc of Omnipaque 350. Images obtained through the lung bases are unremarkable. Note is made of mild cardiomegaly and coronary artery calcifications. Prior CT of August 30 raise the possibility of duodenal wall thickening or Rylie duodenal fat edema, these findings are not appreciated on today's examination and there is an unremarkable appearance of the stomach and duodenum by CT criteria. The liver is unremarkable in appearance. Prior cholecystectomy noted. No biliary dilatation. Intrahepatic bile ducts are CT normal. Pancreas appears normal. Spleen is unremarkable in appearance. Adrenals appear normal. The kidneys are unremarkable with no evidence of hydronephrosis, nephrolithiasis, or renal mass. There are probable bilateral renal vascular calcifications.. Urinary bladder unremarkable. Abdominal aorta is of normal diameter and no major vascular abnormality is seen. Supraumbilical fat containing ventral hernia again noted period. No abdominal or pelvic adenopathy. ENVIRONMENTAL SERVICES SPECIALIST structures appear intac for age t. Appendix is normal. No evidence of diverticulitis or bowel obstruction. IMPRESSION: No evidence of acute intra-abdominal process. Lab Data Lab results reviewed: Yes I reviewed the patient's lab results. Labs: Laboratory Tests Range/Units 09/03/21 09/03/21 09/03/21 08:30 08:46 08:46 WBC (4.4-10.8) 10^3/uL RBC (3.93-5.22) 10^6/uL Hgb (11.2-15.7) g/dL Hct (36.0-46.0) % MCV (80-95) fL MCH (27.0-33.0) pg MCHC (32.0-36.0) % RDW (11.7-14.6) % Plt Count (130-400) 10^3/uL MPV (8.0-11.0) fL Immature Gran % Neutrophils % Lymphocytes % Monocytes % Eosinophils % Basophils % Nucleated RBC % % Absolute Neutrophils (1.2-6.7) 10^3/uL Absolute Lymphocytes (1.2-3.4) 10^3/uL Absolute Monocytes (0.1-0.8) 10^3/uL Absolute Eosinophils (0.0-0.7) 10^3/uL Absolute Basophils (0.0-0.2) 10^3/uL VBG Lactate (0.6-1.4) mmol/L 2.0 H Sodium (136-145) mmol/L Potassium (3.5-5.1) mmol/L Chloride (98-107) mmol/L Carbon Dioxide (21.0-32.0) mmol/L Anion Gap (3-11) mmol/L BUN (7-18) mg/dL Creatinine (0.55-1.02) mg/dL Estimated GFR/1.73 m2 (mL/min/1.73m2) Glucose (74-106) mg/dL Calcium (8.5-10.1) mg/dL Total Bilirubin (0.2-1.0) mg/dL AST (15-37) U/L ALT (14-59) U/L Alkaline Phosphatase (46-116) U/L Total Protein (6.4-8.2) g/dL Albumin (3.4-5.0) g/dL Lipase (73-393) U/L 115 Urine Color (Yellow) Urine Clarity (Clear) Urine pH (5-8) Ur Specific Angela (1.005-1.025) Urine Protein (Negative) mg/dL Urine Ketones (Negative) mg/dL Urine Blood (Negative) Urine Nitrite (Negative) Urine Bilirubin (Negative) Urine Urobilinogen (Up TO 0.2) EU/dL Ur Leukocyte Esterase (Negative) Urine RBC (0-2) HPF Urine WBC (0-5) HPF Ur Epithelial Cells (Negative) HPF Urine Crystals (Negative) HPF Urine Bacteria (Negative) HPF Urine Casts (Negative) LPF Urine Mucus (Negative) Ur Culture Indicated? Urine Glucose (Negative) mg/dL Stl C.difficile Tox PCR (Negative) Negative Range/Units 09/03/21 09/03/21 09/03/21 08:46 08:46 08:50 WBC (4.4-10.8) 10^3/uL 9.11 RBC (3.93-5.22) 10^6/uL 4.77 Hgb (11.2-15.7) g/dL 12.4 Hct (36.0-46.0) % 41.9 MCV (80-95) fL 87.8 MCH (27.0-33.0) pg 26.0 L MCHC (32.0-36.0) % 29.6 L RDW (11.7-14.6) % 14.4 Plt Count (130-400) 10^3/uL 257 MPV (8.0-11.0) fL 9.4 Immature Gran % 0.2 Neutrophils % 90.1 Lymphocytes % 6.4 Monocytes % 3.0 Eosinophils % 0.2 Basophils % 0.1 Nucleated RBC % % 0 Absolute Neutrophils (1.2-6.7) 10^3/uL 8.21 H Absolute Lymphocytes (1.2-3.4) 10^3/uL 0.58 L Absolute Monocytes (0.1-0.8) 10^3/uL 0.27 Absolute Eosinophils (0.0-0.7) 10^3/uL 0.02 Absolute Basophils (0.0-0.2) 10^3/uL 0.01 VBG Lactate (0.6-1.4) mmol/L Sodium (136-145) mmol/L 142 Potassium (3.5-5.1) mmol/L 3.9 Chloride (98-107) mmol/L 103 Carbon Dioxide (21.0-32.0) mmol/L 30.3 Anion Gap (3-11) mmol/L 8.7 BUN (7-18) mg/dL 30 H Creatinine (0.55-1.02) mg/dL 1.3 H Estimated GFR/1.73 m2 (mL/min/1.73m2) 40.26 Glucose (74-106) mg/dL 142 H Calcium (8.5-10.1) mg/dL 9.4 Total Bilirubin (0.2-1.0) mg/dL 1.2 H AST (15-37) U/L 18 ALT (14-59) U/L 33 Alkaline Phosphatase (46-116) U/L 57 Total Protein (6.4-8.2) g/dL 6.8 Albumin (3.4-5.0) g/dL 3.4 Lipase (73-393) U/L Urine Color (Yellow) Yellow Urine Clarity (Clear) Clear Urine pH (5-8) 5.5 Ur Specific Angela (1.005-1.025) 1.010 Urine Protein (Negative) mg/dL 30 H Urine Ketones (Negative) mg/dL Negative Urine Blood (Negative) Negative Urine Nitrite (Negative) Negative Urine Bilirubin (Negative) Negative Urine Urobilinogen (Up TO 0.2) EU/dL 0.2 Ur Leukocyte Esterase (Negative) Negative Urine RBC (0-2) HPF Negative Urine WBC (0-5) HPF Negative Ur Epithelial Cells (Negative) HPF Rare Urine Crystals (Negative) HPF Negative Urine Bacteria (Negative) HPF Negative Urine Casts (Negative) LPF 0-2 Hyaline Urine Mucus (Negative) Negative Ur Culture Indicated? No Urine Glucose (Negative) mg/dL Negative Stl C.difficile Tox PCR (Negative) HPI General Mode of arrival: EMS. Date/Time Provider Initiated Documentation: 09/03/21 08:03. Limitations to Documentation: no limitations. Information obtained by: patient and EMS. HPI Narrative: This is a 71-year-old female, current smoker, past medical history of diabetes, COPD, neuropathy, hypertension, anxiety, GERD, anemia, ventral hernia, presenting to the ER today for ongoing mild diffuse abdominal pain, constipation, but then after having a bowel movement has loose stool. Patient was seen in the ER on 08-30-21 for the same, work-up and CT obtained, subsequently discharged with instructions to initiate fiber supplementation and she is using [id number] stool softeners. Patient states that she is scheduled to be seen her primary care provider on Thursday but did not want a wait that long as her stools are fluctuating between hard and loose and this is very abnormal for her. She denies recent illness or trauma. She is taking the antibiotics for a UTI, reports that the pressure she experienced really has not changed while taking the patient. She denies any fever, headache, nausea or vomiting, chest pain, shortness of breath, back pain, dysuria, black tarry stools or bright red blood in her stools. Patient reports the pain is mild, diffuse, crampy in nature. Related Data Home Medications Medication Instructions Recorded Confirmed albuterol sulfate 90 mcg/actuation 2 puff INHALATION Q6H PRN #18 g 09/25/20 09/03/21 aerosol inhaler inhalational spacing device #2 ea 09/26/20 08/16/21 cetirizine 10 mg tablet 10 mg PO DAILY #90 tab-cap 10/04/20 09/03/21 glipizide 5 mg tablet 5 mg PO DAILY #90 tab 10/30/20 09/03/21 metformin 500 mg tablet 1,000 mg PO BID #360 tab 10/30/20 09/03/21 omeprazole 20 mg capsule,delayed 20 mg PO DAILY #90 tab-cap 10/30/20 09/03/21 release blood sugar diagnostic #200 ea 11/26/20 08/16/21 blood-glucose meter #1 ea 11/26/20 08/16/21 lancets 33 gauge #200 ea 11/28/20 08/16/21 amlodipine 5 mg tablet 5 mg PO DAILY #90 tab-cap 12/11/20 09/03/21 losartan 100 mg tablet 100 mg PO DAILY #90 tab 12/17/20 09/03/21 losartan 50 mg tablet 50 mg PO DAILY #90 tab 12/17/20 09/03/21 fluticasone propionate 50 2 spray INTRANASAL DAILY PRN #16 g 04/15/21 09/03/21 mcg/actuation nasal spray,suspension nebulizer accessories #1 ea 04/19/21 08/16/21 ipratropium 0.5 mg-albuterol 3 mg 3 ml INHALATION Q6H #180 ml 05/24/21 09/03/21 (2.5 mg base)/3 mL nebulization soln furosemide 40 mg tablet 80 mg PO DAILY #90 tab 07/16/21 09/03/21 spironolactone 25 mg tablet 12.5 mg PO DAILY #30 tab 07/16/21 09/03/21 prednisone 10 mg tablet 10 mg PO DAILY 08/16/21 09/03/21 prednisone 5 mg tablet 5 mg PO DAILY #30 tab 08/19/21 09/03/21 glycopyrrolate 9 mcg-formoterol 1 puff INHALATION BID #10.7 g 08/26/21 09/03/21 4.8 mcg HFA aerosol inhaler cholecalciferol (vitamin D3) 25 mcg PO DAILY 08/30/21 09/03/21 [Vitamin D3] cephalexin 500 mg PO QID 5 Days #20 tab 09/01/21 09/03/21 Previous Rx's Medication Instructions Recorded albuterol sulfate 90 mcg/actuation 2 puff INHALATION Q6H PRN #18 g 09/25/20 aerosol inhaler inhalational spacing device #2 ea 09/26/20 cetirizine 10 mg tablet 10 mg PO DAILY #90 tab-cap 10/04/20 glipizide 5 mg tablet 5 mg PO DAILY #90 tab 10/30/20 metformin 500 mg tablet 1,000 mg PO BID #360 tab 10/30/20 omeprazole 20 mg capsule,delayed 20 mg PO DAILY #90 tab-cap 10/30/20 release blood sugar diagnostic #200 ea 11/26/20 blood-glucose meter #1 ea 11/26/20 lancets 33 gauge #200 ea 11/28/20 amlodipine 5 mg tablet 5 mg PO DAILY #90 tab-cap 12/11/20 losartan 100 mg tablet 100 mg PO DAILY #90 tab 12/17/20 losartan 50 mg tablet 50 mg PO DAILY #90 tab 12/17/20 fluticasone propionate 50 2 spray INTRANASAL DAILY PRN #16 g 04/15/21 mcg/actuation nasal spray,suspension nebulizer accessories #1 ea 04/19/21 ipratropium 0.5 mg-albuterol 3 mg 3 ml INHALATION Q6H #180 ml 05/24/21 (2.5 mg base)/3 mL nebulization soln furosemide 40 mg tablet 80 mg PO DAILY #90 tab 07/16/21 spironolactone 25 mg tablet 12.5 mg PO DAILY #30 tab 07/16/21 prednisone 5 mg tablet 5 mg PO DAILY #30 tab 08/19/21 glycopyrrolate 9 mcg-formoterol 1 puff INHALATION BID #10.7 g 08/26/21 4.8 mcg HFA aerosol inhaler cephalexin 500 mg PO QID 5 Days #20 tab 09/01/21 Allergies Allergy/AdvReac Type Severity Reaction Status Date / Time codeine AdvReac Severe Cardiac Verified 09/03/21 08:11 Dysrythmia indomethacin AdvReac Intermediate Cardiac Verified 09/03/21 08:11 Dysrythmia lisinopril AdvReac cough Verified 09/03/21 08:11 General Stated Complaint: Abd Prob BELKIS: 3 Review of Systems Constitutional Constitutional: Denies fatigue, Denies fever(s) and Denies headache(s) ENT Ears, Nose, Mouth, and Throat: Denies headache(s) and Denies neck pain Cardiovascular Cardiovascular: Denies chest pain and Denies dyspnea Respiratory Respiratory: Denies cough and Denies dyspnea Gastrointestinal Gastrointestinal: Reports abdominal pain, Denies melena, Denies hematochezia, Reports constipation, Reports diarrhea, Denies nausea and Denies vomiting Genitourinary Genitourinary: Denies dysuria Musculoskeletal Musculoskeletal: Denies back pain and Denies neck pain Integumentary/Breasts Skin/Breast: Denies rash Neurologic Neurologic: Denies headache(s) Endocrine Endocrine: Denies fatigue [facility] Medical History Benign positional vertigo Chronic obstructive pulmonary disease Cigarette smoker Declined lung cancer screening 09/21 Diabetic nephropathy Diabetic retinopathy Essential hypertension Generalized anxiety disorder GERD (gastroesophageal reflux disease) Heart failure with preserved ejection fraction LVEF 55-60% on ECHO 2020 Iron deficiency anemia Migraine aura without headache Osteoarthritis of hips, bilateral Polymyalgia rheumatica Type 2 diabetes mellitus Ventral hernia Surgical History History of esophagogastroduodenoscopy (EGD) (07/30/18) S/P cholecystectomy S/P colonoscopy (07/30/18) S/P tonsillectomy Family History Mother No problems noted. Father Diabetes Daughter No problems noted. Daughter No problems noted. Daughter No problems noted. Daughter No problems noted. Social History Smoking/Tobacco Use Status: Current every day Tobacco Type: cigarettes Smoking packs per day: 2 Smoking cigarettes per day: 40.0 Years smoked: 59 Smoking pack-years: 118.00 Smoking risk assessment performed?: Yes Alcohol Intake: never Drug use: Never Substance use type: does not use 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 Pets and animals: Yes Pets and animals: cat(s) Current gender identity: female What type of physical activity do you participate in: none Irma/Spiritism: Sabianist Special irma needs: No Do you feel safe at home: Yes Do you feel safe in your relationship?: Yes Exam Const General: cooperative, healthy appearing, comfortable and no acute distress Orientation: alert, awake and oriented x3 HENMT Head: normal to inspection, normocephalic and atraumatic Eyes General: appearance normal, both eyes and all related structures Conjunctivae: conjunctivae normal Neck Neck: normal visual inspection, trachea midline and supple Resp Effort & Inspection: normal respiratory effort and able to speak in complete sentences Auscultation: clear to auscultation bilaterally Cardio Rate: regular rate Rhythm: regular rhythm GI Palpation: soft, not firm, no guarding, no pulsatile masses and nontender Auscultation: normal bowel sounds Other: A large, soft, nontender, easily reducible ventral hernia Back/Spine/Pelvis Back: No back tenderness Skin General skin exam: no rashes or lesions noted Neuro General: patient alert, patient awake, moves all extremities and no focal motor deficits Cognition: normal cognition Speech: speech normal Gait: normal gait Motor: muscle tone normal throughout Sensory Exam: no sensory deficits noted Extrem General: normal to inspection, full ROM, capillary refill normal, no pedal edema and no calf tenderness Psych Appearance: grossly normal Mental Status: mental status grossly normal Course Vital Signs Vital signs: Vital Signs Temperature 36.4 C L 09/03/21 08:01 Pulse 103 H 09/03/21 08:01 Respiratory Rate 15 09/03/21 08:01 Blood Pressure 120/82 09/03/21 08:01 Pulse Oximetry 88 L 09/03/21 08:01 Temperature 36.4 C L 09/03/21 08:01 Temperature Source Temporal Artery Scan 09/03/21 08:01 Pulse 103 H 09/03/21 08:01 Respiratory Rate 15 09/03/21 08:01 Respiratory Effort Non-Labored 09/03/21 08:07 Blood Pressure 120/82 09/03/21 08:01 Blood Pressure Position Sitting 09/03/21 08:01 Pulse Oximetry 88 L 09/03/21 08:01 Oxygen Delivery Method Room Air 09/03/21 08:01 Oxygen Flow Rate 0 09/03/21 08:01 Pain Level 10 09/03/21 08:07
[2021-09-03 08:54] LABS: Abs Immature Grans 0.02 10^3/uL (0.0-0.06); Absolute Basophil Count 0.01 10^3/uL (0.0-0.2); Absolute Eosinophil Count 0.02 10^3/uL (0.0-0.7); Absolute Lymphocyte Count 0.58 10^3/uL (1.2-3.4); Absolute Monocyte Count 0.27 10^3/uL (0.1-0.8); Absolute Neutrophil Count 8.21 10^3/uL (1.2-6.7); Basophils % 0.1; Eosinophils % 0.2; HCT 41.9 % (36.0-46.0); HGB 12.4 g/dL (11.2-15.7); Immature Grans % 0.2; Lymphocytes % 6.4; MCHC 29.6 % (32.0-36.0); MCV 87.8 fL (80-95); MPV 9.4 fL (8.0-11.0); Neutrophils % 90.1; Nucleated RBC 0 %; Platelet Count 257 10^3/uL (130-400); RBC 4.77 10^6/uL (3.93-5.22); RDW 14.4 % (11.7-14.6); RDW-SD 46.5 fL; WBC 9.11 10^3/uL (4.4-10.8)
[2021-09-03 09:04] LABS: Lipase 115 U/L (73-393)
[2021-09-03 09:05] LABS: Bilirubin Negative (Negative); Blood Negative (Negative); Clarity Clear (Clear); Glucose Negative (Negative); Ketones Negative (Negative); Leukocyte Esterase Negative (Negative); Nitrite Negative (Negative); Urobilinogen 0.2 EU/dL (Up TO 0.2); pH 5.5 (5-8)
[2021-09-03 09:12] LABS: ALT 33 U/L (14-59); AST 18 U/L (15-37); Albumin 3.4 g/dL (3.4-5.0); Alkaline Phosphatase 57 U/L (46-116); Anion Gap 8.7 mmol/L (3-11); BUN 30 mg/dL (7-18); Bilirubin, Total 1.2 mg/dL (0.2-1.0); CO2 30.3 mmol/L (21.0-32.0); CREATININE 1.3 mg/dL (0.55-1.02); Calcium 9.4 mg/dL (8.5-10.1); Chloride 103 mmol/L (98-107); Estimated GFR 40.26 (mL/min/1.73m2); Glucose 142 mg/dL (74-106); Potassium 3.9 mmol/L (3.5-5.1); Sodium 142 mmol/L (136-145); Total Protein 6.8 g/dL (6.4-8.2)
[2021-09-03 09:16] LABS: Bacteria Negative HPF (Negative); C & S Indicated? No; Casts 0-2 Hyaline LPF (Negative); Crystals Negative HPF (Negative); Epithelial Cells Rare HPF (Negative); Mucus Negative (Negative); RBC Negative HPF (0-2); WBC Negative HPF (0-5)
[2021-09-03] MEDS: Omnipaque 350 MG/ML 100 ML BTL IJ (09:45)
[2021-09-03] MEDS: Normal Saline - Diluent 50 ML VIAL IV (09:45)
[2021-09-03 09:57] LABS: C Diff PCR Negative (Negative)
[2021-09-03] MEDS: Normal Saline 1,000 ML 1000 ML IV (10:02)
[2021-09-03 10:15] VITALS: BP 127/66; PULSE 96; RESP 14; O2SAT 81
[2021-09-03 11:07] VITALS: BP 137/68; PULSE 84; RESP 23; TEMP 36.6; O2SAT 86
[2021-09-03 22:29] LABS: Campylobacter PCR Negative (Negative); Salmonella PCR Negative (Negative); Shiga Toxin PCR Negative (Negative); Shigella/Enteroinvasive Ecoli Negative (Negative)
== END 2021-09-03 11:08 | disposition home or self-care (01) ==
LOC: ER 11:10
PROVIDERS: Emergency Provider Physician Assistant; PCP Nurse Practitioner Family
DX: K59.00 Constipation, unspecified (principal); R10.9 Unspecified abdominal pain
CPT/HCPCS: 36415; 80053; 83690; 87493; 87505; 96360; 99285; 74177; 81003; 81015; 83605; 85025; 99284; J3490

== ENCOUNTER → 2021-09-05 14:20 | Outpatient (BNVA) | payer MEDICARE, MEDICAID, SELFPAY | PROVIDERS: PCP Nurse Practitioner Family; Referring Provider Nurse Practitioner Family; Visit Provider Physical Therapy Assistant | DX: K59.00 Constipation, unspecified (principal); R10.9 Unspecified abdominal pain; J44.9 Chronic obstructive pulmonary disease, unspecified; E11.9 Type 2 diabetes mellitus without complications; I10 Essential (primary) hypertension | CPT/HCPCS: 99213 ==

== ENCOUNTER 2021-09-10 02:04 | Emergency (ER) | payer MEDICARE, MEDICAID, SELFPAY ==
[2021-09-10 01:55] VITALS: BP 145/42; PULSE 110; RESP 23; TEMP 37; O2SAT 95
--- NOTE | 2021-09-10 02:10 | W.ED.GENAD ---
Discharge Plan Disposition Patient Disposition: HOME Condition: Good Discharge Details Clinical Impression: Abdominal discomfort Primary Care Provider: Katherine Andre ED Provider: Hardy Benson Home Meds and New Rx's Prescriptions: Continued albuterol sulfate 90 mcg/actuation HFA aerosol inhaler 2 puff inhalation Q6H PRN (Reason: shortness of breath or wheezing) Qty: 18 RF: 4 prednisone 10 mg tablet 10 mg PO DAILY RF: 0 docusate sodium [Dulcolax Stool Softener (dss)] 100 mg capsule 100 mg PO BID RF: 0 psyllium Powder 1 tbsp PO DAILY RF: 0 phenazopyridine [Pyridium] 100 mg tablet 100 mg PO TID PRN (Reason: pain) Qty: 30 RF: 0 nitrofurantoin monohyd/m-cryst [Macrobid] 100 mg capsule 100 mg PO BID Qty: 10 RF: 0 furosemide 40 mg tablet 80 mg PO DAILY Qty: 90 RF: 4 prednisone 5 mg tablet 15 mg PO DAILY RF: 0 (DME) Aerochamber MV Spacer See Rx Instructions .ROUTE .MEDSUPPLY Qty: 2 RF: 4 cetirizine 10 mg tablet 10 mg PO DAILY Qty: 90 RF: 4 metformin 500 mg tablet 1,000 mg PO BID Qty: 360 RF: 4 glipizide 5 mg tablet 5 mg PO DAILY Qty: 90 RF: 4 omeprazole 20 mg capsule,delayed release(DR/EC) 20 mg PO DAILY Qty: 90 RF: 4 (DME) OneTouch Ultra Blue Test Strip Strip See Rx Instructions .MEDSUPPLY Qty: 200 RF: 4 (DME) blood-glucose meter [OneTouch Ultra2 Meter] Kit See Rx Instructions .MEDSUPPLY Qty: 1 RF: 2 (DME) lancets [OneTouch Delica Plus Lancet] 33 gauge misc See Rx Instructions .MEDSUPPLY Qty: 200 RF: 4 amlodipine 5 mg tablet 5 mg PO DAILY Qty: 90 RF: 4 losartan 100 mg tablet 100 mg PO DAILY Qty: 90 RF: 4 losartan 50 mg tablet 50 mg PO DAILY Qty: 90 RF: 4 fluticasone propionate [Flonase Allergy Relief] 50 mcg/actuation spray,suspension 2 spray intranasal DAILY PRN (Reason: allergy symptoms) Qty: 16 RF: 4 ipratropium-albuterol 0.5 mg-3 mg(2.5 mg base)/3 mL solution for nebulization 3 ml inhalation Q6H Qty: 180 RF: 4 Bevespi Aerosphere 9-4.8 mcg HFA aerosol inhaler 1 puff inhalation BID Qty: 10.7 RF: 4 Hold Instructions: Has not started and does not wish to for now cholecalciferol (vitamin D3) [Vitamin D3] 25 mcg (1,000 unit) Capsule 25 mcg PO DAILY RF: 0 Discharge Instructions Instructions: Constipation (ED) Additional Instructions: At this time you showed no evidence of any life-threatening abnormality in your abdomen. Constipation may be a component of your symptoms. We discussed the risks and benefits and you have requested to perform a trial of magnesium citrate to help with your constipation. Please take this bottle and drink it with 5 to 10 cups of water or other fluids. You will have notable diarrhea after this visit will cleanse your colon. Please follow-up closely with your primary care provider. Discussed with them further an appropriate regimen for a multimodal approach for continuing to address your abdominal pain and constipation. If you notice any worsening of your symptoms, or any new symptoms such as vomiting, diarrhea, fever, chills, shortness of breath, chest pain, numbness, weakness, or fainting , please return immediately to the emergency department for reevaluation. Please follow up with your primary care provider as soon as possible for reassessment and reevaluation. As always, it was a pleasure participating in your medical care today. Referrals: Katherine Andre NP [Primary Care Provider] - Medical Decision Making 71-year-old female with a past medical history of polymyalgia rheumatica, constipation, pulmonary nodule, hypertension, type 2 diabetes, GERD, tobacco abuse, who presents today for abdominal pain. Patient states the pain is been present for the last 2 weeks. She was initially seen and assessed here in the emergency department on 08/30/2021, where I saw the patient, and at that time the work-up was unremarkable aside for questionable duodenal irritation. Recommended at that time that the patient follow-up outpatient for colonoscopy, further management. She was started on a stool softener, and discharge. She read presented to the emergency department on 09/03/2021, where a repeat CT scan was performed, and again showed no evidence of significant acute process. Patient states that she was assessed for colonoscopy and per the patient was told that she does not need one and just needs dietary changes. She went and saw her primary care provider today, where she was started on an antibiotic for a urinary tract infection, and continues to complain of abdominal pain. She states she had a hard firm rounded/stony stool today, which caused some pain coming out. No blood. She has not had a bowel movement since earlier today. She denies any vomiting. She denies any chest pain. The pain continued unchanged today, as it has less the is. She contacted EMS this evening when a.m., and after negative twelve-lead EKG and stable vital signs she was brought to the ER for further assessment. Patient states that she has been taking her stool softener as directed. She denies any other complaints at this time. No change in her abdominal pain, no chest pain, no vomiting. No other modifying factors. Pain is described as achy. It is generalized in the lower abdominal region. She currently denies any urinary complaints. Exam demonstrates a notably nontender and nonsurgical nonacute appearing abdomen. No tenderness on palpation. Rectal exam unremarkable. No stool. Vital signs stable. With no reproducible abdominal tenderness, no signs of an acute surgical abdomen, no evidence of stool in the rectal vault I do not see an indication for repeat CT imaging at this time especially with the 2 - CT scans in the past week. Patient makes very clear to me that she feels that she is constipated and wants something to help solve the constipation issue. Recommend to the patient the importance of continued high-fiber diet, her stool softeners, as well as close follow-up with her primary care provider. I did still encourage colonoscopy or at least a discussion of it between her and her primary care provider. Patient does state that she wants something to help with the constipation. I did offer mag citrate and made very clear that this would cause notable diarrhea, cramping, and needs to be done during the waking hours after she has rested throughout the night. She understands this and would like the magnesium citrate to go home. We will provide her with 1 bottle here. Patient will be discharged with recommended close follow-up with her PCP for reassessment and continued multimodal management of her chronic abdominal pain and recurrent constipation. I have extensively reviewed the treatment plan and discharge instructions with the patient . I have addressed all patient concerns at this time. The patient was made aware of what symptoms to monitor for that would warrant a return to the emergency department. Discussed the plan with the patient , they demonstrate verbal understanding and agreement with our assessment and plan at this time. The documentation in this chart was dictated using [employer] dictation software. Please excuse any dictation errors. HPI General Date/Time Provider Initiated Documentation: 09/10/21 02:09. HPI Narrative: 71-year-old female with a past medical history of polymyalgia rheumatica, constipation, pulmonary nodule, hypertension, type 2 diabetes, GERD, tobacco abuse, who presents today for abdominal pain. Patient states the pain is been present for the last 2 weeks. She was initially seen and assessed here in the emergency department on 08/30/2021, where I saw the patient, and at that time the work-up was unremarkable aside for questionable duodenal irritation. Recommended at that time that the patient follow-up outpatient for colonoscopy, further management. She was started on a stool softener, and discharge. She read presented to the emergency department on 09/03/2021, where a repeat CT scan was performed, and again showed no evidence of significant acute process. Patient states that she was assessed for colonoscopy and per the patient was told that she does not need one and just needs dietary changes. She went and saw her primary care provider today, where she was started on an antibiotic for a urinary tract infection, and continues to complain of abdominal pain. She states she had a hard firm rounded/stony stool today, which caused some pain coming out. No blood. She has not had a bowel movement since earlier today. She denies any vomiting. She denies any chest pain. The pain continued unchanged today, as it has less the is. She contacted EMS this evening when a.m., and after negative twelve-lead EKG and stable vital signs she was brought to the ER for further assessment. Patient states that she has been taking her stool softener as directed. She denies any other complaints at this time. No change in her abdominal pain, no chest pain, no vomiting. No other modifying factors. Pain is described as achy. It is generalized in the lower abdominal region. She currently denies any urinary complaints. Related Data Home Medications Medication Instructions Recorded Confirmed albuterol sulfate 90 mcg/actuation 2 puff INHALATION Q6H PRN #18 g 09/25/20 09/10/21 aerosol inhaler inhalational spacing device #2 ea 09/26/20 09/10/21 cetirizine 10 mg tablet 10 mg PO DAILY #90 tab-cap 10/04/20 09/10/21 glipizide 5 mg tablet 5 mg PO DAILY #90 tab 10/30/20 09/10/21 metformin 500 mg tablet 1,000 mg PO BID #360 tab 10/30/20 09/10/21 omeprazole 20 mg capsule,delayed 20 mg PO DAILY #90 tab-cap 10/30/20 09/10/21 release blood sugar diagnostic #200 ea 11/26/20 09/10/21 blood-glucose meter #1 ea 11/26/20 09/10/21 lancets 33 gauge #200 ea 11/28/20 09/10/21 amlodipine 5 mg tablet 5 mg PO DAILY #90 tab-cap 12/11/20 09/10/21 losartan 100 mg tablet 100 mg PO DAILY #90 tab 12/17/20 09/10/21 losartan 50 mg tablet 50 mg PO DAILY #90 tab 12/17/20 09/10/21 fluticasone propionate 50 2 spray INTRANASAL DAILY PRN #16 g 04/15/21 09/10/21 mcg/actuation nasal spray,suspension ipratropium 0.5 mg-albuterol 3 mg 3 ml INHALATION Q6H #180 ml 05/24/21 09/10/21 (2.5 mg base)/3 mL nebulization soln furosemide 40 mg tablet 80 mg PO DAILY #90 tab 07/16/21 09/10/21 prednisone 10 mg tablet 10 mg PO DAILY 08/16/21 09/10/21 glycopyrrolate 9 mcg-formoterol 1 puff INHALATION BID #10.7 g 08/26/21 09/10/21 4.8 mcg HFA aerosol inhaler cholecalciferol (vitamin D3) 25 mcg PO DAILY 08/30/21 09/10/21 [Vitamin D3] docusate sodium 100 mg capsule 100 mg PO BID 09/05/21 09/10/21 psyllium 1 tbsp PO DAILY 09/05/21 09/10/21 prednisone 5 mg tablet 15 mg PO DAILY tab 09/06/21 09/10/21 nitrofurantoin 100 mg PO BID #10 cap 09/09/21 09/10/21 monohydrate/macrocrystals 100 mg capsule phenazopyridine 100 mg tablet 100 mg PO TID PRN #30 tab 09/09/21 09/10/21 Previous Rx's Medication Instructions Recorded albuterol sulfate 90 mcg/actuation 2 puff INHALATION Q6H PRN #18 g 09/25/20 aerosol inhaler inhalational spacing device #2 ea 09/26/20 cetirizine 10 mg tablet 10 mg PO DAILY #90 tab-cap 10/04/20 glipizide 5 mg tablet 5 mg PO DAILY #90 tab 10/30/20 metformin 500 mg tablet 1,000 mg PO BID #360 tab 10/30/20 omeprazole 20 mg capsule,delayed 20 mg PO DAILY #90 tab-cap 10/30/20 release blood sugar diagnostic #200 ea 11/26/20 blood-glucose meter #1 ea 11/26/20 lancets 33 gauge #200 ea 11/28/20 amlodipine 5 mg tablet 5 mg PO DAILY #90 tab-cap 12/11/20 losartan 100 mg tablet 100 mg PO DAILY #90 tab 12/17/20 losartan 50 mg tablet 50 mg PO DAILY #90 tab 12/17/20 fluticasone propionate 50 2 spray INTRANASAL DAILY PRN #16 g 04/15/21 mcg/actuation nasal spray,suspension ipratropium 0.5 mg-albuterol 3 mg 3 ml INHALATION Q6H #180 ml 05/24/21 (2.5 mg base)/3 mL nebulization soln furosemide 40 mg tablet 80 mg PO DAILY #90 tab 07/16/21 glycopyrrolate 9 mcg-formoterol 1 puff INHALATION BID #10.7 g 08/26/21 4.8 mcg HFA aerosol inhaler nitrofurantoin 100 mg PO BID #10 cap 09/09/21 monohydrate/macrocrystals 100 mg capsule phenazopyridine 100 mg tablet 100 mg PO TID PRN #30 tab 09/09/21 Allergies Allergy/AdvReac Type Severity Reaction Status Date / Time codeine AdvReac Severe Cardiac Verified 09/10/21 02:08 Dysrythmia indomethacin AdvReac Intermediate Cardiac Verified 09/10/21 02:08 Dysrythmia lisinopril AdvReac cough Verified 09/10/21 02:08 General Stated Complaint: Abd Prob BELKIS: 3 Review of Systems All systems reviewed & are unremarkable except as noted in HPI and below PFSH Medical History Benign positional vertigo Chronic obstructive pulmonary disease Cigarette smoker Declined lung cancer screening 09/21 Diabetic nephropathy Diabetic retinopathy Essential hypertension Generalized anxiety disorder GERD (gastroesophageal reflux disease) Heart failure with preserved ejection fraction LVEF 55-60% on ECHO 2020 Iron deficiency anemia Migraine aura without headache Osteoarthritis of hips, bilateral Polymyalgia rheumatica Type 2 diabetes mellitus Ventral hernia Surgical History History of esophagogastroduodenoscopy (EGD) (07/30/18) S/P cholecystectomy S/P colonoscopy (07/30/18) S/P tonsillectomy Family History Mother No problems noted. Father Diabetes Daughter No problems noted. Daughter No problems noted. Daughter No problems noted. Daughter No problems noted. 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 3.ENT: Atraumatic external nose and ears. Moist MM. Neck: Symmetric, trachea midline, No thyromegaly. 4.CVS: +S1/S2, No murmurs or gallops. Peripheral pulses 2+ and equal in all extremities. Brisk capillary refill in all extremities. 5.RESP: Unlabored respiratory effort. Clear to auscultation bilaterally. No wheezes rales or rhonchi 6.GI: Soft, Nontender/Nondistended, No hepatosplenomegaly. No guarding or rebound. No pain at McBurney's point, negative Lim sign. No generalized pain at all on palpation. Rectal exam was performed with nurse Ez at bedside, no stool in the rectal vault. No bleeding. 7.MSK: Normocephalic/Atraumatic, Extremities w/o deformity or ttp No cyanosis or clubbing, Normal movement of all extremities 8.Skin: Warm, Dry. No rashes or lesions. 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 Sensation grossly intact, no focal neurologic deficits. 10.Psych: (AAO) x3. Appropriate mood and affect Course Vital Signs Vital signs: Vital Signs Temperature 37.0 C 09/10/21 01:55 Pulse 110 H 09/10/21 01:55 Respiratory Rate 23 09/10/21 01:55 Blood Pressure 145/42 H 09/10/21 01:55 Pulse Oximetry 95 09/10/21 01:55 Temperature 37.0 C 09/10/21 01:55 Temperature Source Temporal Artery Scan 09/10/21 01:55 Pulse 110 H 09/10/21 01:55 Respiratory Rate 23 09/10/21 01:55 Blood Pressure 145/42 H 09/10/21 01:55 Blood Pressure Position Sitting 09/10/21 01:55 Pulse Oximetry 95 09/10/21 01:55 Oxygen Delivery Method Room Air 09/10/21 01:55 Oxygen Flow Rate 0 09/10/21 01:55 End Tidal Co2 9 09/10/21 01:55
[2021-09-10 02:25] VITALS: BP 155/72; PULSE 88; RESP 18; TEMP 37; O2SAT 92
== END 2021-09-10 02:25 | disposition home or self-care (01) ==
LOC: ER 02:18
PROVIDERS: Emergency Provider Student in an Organized Health Care Education/Training Program; PCP Nurse Practitioner Family
DX: R10.9 Unspecified abdominal pain (principal)
CPT/HCPCS: 99282

== ENCOUNTER 2021-09-12 01:22 | Outpatient (CLI) | payer MEDICARE, MEDICAID, SELFPAY ==
--- NOTE | 2021-09-12 07:30 | DI.US_ITS ---
APPROVED REPORT EXAM: Comprehensive 2D, Doppler, and color-flow Echocardiogram Patient Location: Out-Patient Cable Hooker: Chandni Ba RDCS (AE) Indications: Heart failure, HTN, Wheezing Other Information Study Quality: Fair. Technically limited study due to inability to position patient, scan done with p atient sitting, body habitus. Conclusion Normal left ventricular wall thickness and chamber size. Estimated ejection fraction is 30 to 35% wi th global hypokinesis The right ventricle is dilated and hypokinetic The right atrium is dilated. Left atrium is normal in size The aortic valve is trileaflet and mildly sclerotic with trace regurgitation Mild mitral annular calcification with mild mitral regurgitation Normal tricuspid valve with mild regurgitation. Estimated right ventricular systolic pressure is 40 mmHg Compared to echocardiogram from 2020, left ventricular function has worsened Wall motion Left Ventricle The left ventricle is normal size. Left ventricular systolic function is moderately decreased. There is normal left ventricular wall thickness. There is global hypokinesis of the left ventricle. There i s no ventricular septal defect visualized. LVEF is 35%. Right Ventricle Right ventricle is moderately dilated. Right ventricle is hypokinetic. The RVSP is 40.4 mmHg. Atria The left atrium size is normal. Right atrium is moderately dilated. The interatrial septum is intact with no evidence for an atrial septal defect. Aortic Valve The Aortic valve is sclerotic. Aortic valve is trileaflet. There is no aortic valvular stenosis. Trac e aortic regurgitation. Mitral Valve Mild mitral annular calcification. No evidence of mitral valve stenosis. Mild mitral regurgitation. Tricuspid Valve The tricuspid valve is normal in structure. There is no tricuspid valve stenosis. Mild tricuspid regu rgitation. Pulmonic Valve The pulmonary valve is normal in structure. There is no pulmonic valvular stenosis. Mild pulmonic reg urgitation. Great Vessels The aortic root is normal in size. The ascending aorta is normal in size. Aortic arch is not well vis ualized. The IVC collapses <50% with inspiration. Pericardium There is no pericardial effusion. 2D Dimensions IVSD d PLAX 0.82 cm F: 0.6-1.0 LV Vol A2C d MOD 151.3 mL LVPW d PLAX 0.87 cm F: 0.6 - 1.0 LV Vol A4C d MOD 112.1 mL LVID d PLAX 5.26 cm F: 3.8 - 5.2 LA vol/ BSA A2C s A-L 34.7 mL/m2 LVDs 4.55 cm F: 2.2 - 3.5 LA vol/ BSA A4C s A-L 19.0 mL/m2 Ao Root d 2.37 cm F: 2.7 - 3.3 LA Vol/ BSA Biplane s A-L 26.1 mL/m2 RA Area A4C 24.05 cm2 LA Area A4C s MOD 15.44 cm2 RA Vol/ BSA A4C s A-L 42.8 mL/m2 LA Area A2C s MOD 21.23 cm2 Ao Asc Diam d 3.18 cm F: 2.3 - 3.1 LV EF A4C MOD 37.5 % LV EF Teichholz 27.8 % LV EF A2C MOD 35.2 % LVEF (Claudio's) 35.73 % F: 54 - 74 LV EF Biplane MOD 35.7 % LV Volume 102.04 mL F: 46 - 106 SV 47.28 mL LV Volume Index 55.45 mL/m2 F: 29 - 61 SV Index 25.65 mL/m2 LV Vol Biplane MOD 132.3 mL FS 13.05 % M-Mode TAPSE 1.08 cm (M/F) >1.7 LV Diastology MV E' medial 0.057 (>0.07 m/s) E/A Ratio 0.8 LV E/e MED 21.35 (<14) MV E Vmax 1.21 (0.4-1.3 m/s) MV E' lateral 0.054 (>0.1 m/s) MV A Vmax 1.45 (0.4-1.3 m/s) LV E/e LAT 22.50 (<14) MV E/A Ratio 0.82 MV E/E' medial 21.38 MV E/E' lateral 22.55 Aortic Valve LVOT Area 3.53 cm2 AoV Area Vmax 1.89 cm2 LVOT Vmax 0.88 m/s AoV Area/ BSA (Vmax) 1.03 cm2/m2 LVOT Mean Med. 0.55 m/s STEPHAN Mean Med. 1.57 cm2 LVOT Peak Grad 3.1 mmHg STEPHAN Mean Med. Index 0.85 cm2/m2 LVOT Mean Grad 1.5 mmHg LVOT VTI 0.155 m LVOT Diam s 2.10 cm AoV Vmax 1.65 m/s Velocity Ratio 0.53 AoV Mean Med. 1.23 m/s AoV Peak Grad 10.9 mmHg LVOT SV 54.80 mL AoV Mean Grad 6.7 mmHg AoV VTI 0.276 m AoV Area VTI 1.98 cm2 AoV Area/ BSA (VTI) 1.08 cm/m2 Mitral Valve MV DT 182 (160-240 msec) MV PHT 53 msec MV Area PHT 4.16 cm2 MV VTI 0.383 m MV Area VTI 1.43 (4.0-6.0 cm2) Pulmonary Valve PV Vmax 0.82 (0.5-1.5 m/s) RVOT Peak Gr. 2.18 mmHg PV Peak Grad 2.7 mmHg RVOT Mean Gr. 1.00 mmHg PV Mean Grad 1.4 mmHg RVOT VTI 0.113 m PV VTI 0.123 m RVOT Vmax 0.74 m/s Tricuspid Valve TR Peak Grad 32.4 mmHg TR Vmax 2.85 m/s RA Pressure 8.00 mmHg RVSP (TR) 40.4 mmHg
== END 2021-09-12 01:42 ==
PROVIDERS: PCP Nurse Practitioner Family; Visit Provider Internal Medicine Cardiovascular Disease
DX: I10 Essential (primary) hypertension (principal); I50.9 Heart failure, unspecified; R06.2 Wheezing; I08.1 Rheumatic disorders of both mitral and tricuspid valves; R93.9 Diagnostic imaging inconclusive due to excess body fat of patient
CPT/HCPCS: 93306

== ENCOUNTER → 2021-09-19 12:50 | Outpatient (BNVA) | payer MEDICARE, MEDICAID, SELFPAY | PROVIDERS: PCP Nurse Practitioner Family; Referring Provider Nurse Practitioner Family; Visit Provider Physical Therapy Assistant | DX: R19.7 Diarrhea, unspecified (principal); R10.9 Unspecified abdominal pain | CPT/HCPCS: 99442 ==

== ENCOUNTER → 2021-09-19 13:25 | Outpatient (BNVA) | payer MEDICARE, MEDICAID, SELFPAY | PROVIDERS: PCP Nurse Practitioner Family; Referring Provider Nurse Practitioner Family; Visit Provider Internal Medicine Cardiovascular Disease | DX: I50.20 Unspecified systolic (congestive) heart failure (principal); I11.0 Hypertensive heart disease with heart failure; J44.9 Chronic obstructive pulmonary disease, unspecified; F17.210 Nicotine dependence, cigarettes, uncomplicated | CPT/HCPCS: 99442; 99213 ==

== ENCOUNTER 2021-10-10 15:38 | Outpatient (REF) | payer MEDICARE, MEDICAID, SELFPAY ==
[2021-10-10 13:25] LABS: ESR 52 mm/hr (0-30)
[2021-10-14 20:41] LABS: Hemoglobin A1C 8.1 % (<5.7)
== END 2021-10-10 15:39 | disposition home or self-care (01) ==
LOC: LBN 15:38
PROVIDERS: PCP Nurse Practitioner Family; Visit Provider Nurse Practitioner Family
DX: E11.22 Type 2 diabetes mellitus with diabetic chronic kidney disease (principal); M35.3 Polymyalgia rheumatica
CPT/HCPCS: 85652; 83036; 86140

== ENCOUNTER → 2021-11-15 13:49 | Outpatient (BNVA) | payer MEDICARE, MEDICAID, SELFPAY | PROVIDERS: PCP Nurse Practitioner Family; Visit Provider Internal Medicine Cardiovascular Disease | DX: I50.20 Unspecified systolic (congestive) heart failure (principal); I11.0 Hypertensive heart disease with heart failure; J43.2 Centrilobular emphysema; Z99.81 Dependence on supplemental oxygen | CPT/HCPCS: 99214 ==

== ENCOUNTER 2021-12-12 02:12 | Outpatient (CLI) | payer MEDICARE, MEDICAID, SELFPAY ==
--- NOTE | 2021-12-12 12:50 | DI.CT_ITS ---
Exam(s) CT CHEST WO EXAM: CT CHEST WO CLINICAL HISTORY: f/u pulmonary nodule seen on LDCT (6 mo f/u),R91.1. TECHNIQUE: Multi planar reconstructions were performed. CONTRAST MATERIAL: None COMPARISON: CT ABD PELVIS WITH CONTRAST from 06/08/[address] CHEST LUNG CANCER SCREEN from 06/28/[address] CHEST/ABD/PEL WO from 08/30/[address] ABDOMEN PELVIS W from 09/03/2021 FINDINGS: CHEST: LUNGS: The 2 previously described tiny nodules in the right middle lobe are unchanged. One of these is a benign calcified granuloma. The other is a similar size 2 millimeters subpleural benign-appeari ng scratch noncalcified nodule which is unchanged from CT scans dating back to 06/28/2021. However, there are new significant pulmonary findings here. There is now infiltrate with air broncho grams adjacent to the right heart border in the medial segment of the right middle lobe, not previous ly present and also some infiltrate extending into the lateral segment of the right middle lobe. The re is symmetrical infiltrate in the opposite-left lung involving the lingular segment. There is spar ing of most of the upper lobes. There is some infiltrate in the basal segments of the left lower lob e and atelectasis in the posterior basal segment right lower lobe. No pleural effusions. No signifi cant focal findings in the trachea and mainstem bronchi. MEDIASTINUM: There is no obvious hilar nor mediastinal adenopathy. Visualized thyroid unremarkable.No obvious axillary adenopathy CARDIAC: There is cardiomegaly. No pericardial effusion. There is moderate coronary artery calcific ation.Caliber of the thoracic aorta is within normal limits. VISUALIZED UPPER ABDOMEN:Thickened adrenal glands noted, similar to prior abdominal CT scans. The ga llbladder is also again noted to be surgically absent for. OSSEOUS: No significant osseous lesions.. IMPRESSION: 1. There is continued stable appearance of the previously described 2 tiny benign-appearing nodules i n the right middle lobe, one of which is a calcified benign granuloma. Both measure approximately 2- 3 millimeters. 2. There are new bilateral lung infiltrates as described above, not associated with pleural effusions nor obvious intrathoracic adenopathy. 3. There is cardiomegaly again noted. No pericardial effusion. RADIATION DOSE DELIVERED: 525.42mGy.cm Total DLP DATA REPOSITORY: All CT scans at this facility are submitted to the National Radiology Data Registry (NRDR) Dose Index Registry (DIR) with the [employer] ([employer]). RADIATION OPTIMIZATION: All CT scans at this facility use at least one of these dose optimization te chniques: automated exposure control; mA and/or kV adjustment per patient size (includes targeted exa ms where dose is matched to clinical indication); or iterative reconstruction.
== END 2021-12-12 02:32 ==
PROVIDERS: PCP Nurse Practitioner Family; Visit Provider Student in an Organized Health Care Education/Training Program
DX: R91.1 Solitary pulmonary nodule (principal); J98.4 Other disorders of lung; I51.7 Cardiomegaly
CPT/HCPCS: 71250

== ENCOUNTER 2021-12-17 02:22 | Outpatient (CLI) | payer MEDICARE, MEDICAID, SELFPAY ==
[2021-12-17 13:44] LABS: ESR 43 mm/hr (0-30)
== END 2021-12-17 02:23 | disposition home or self-care (01) ==
LOC: LBO 02:22
PROVIDERS: PCP Nurse Practitioner Family; Visit Provider Nurse Practitioner Family
DX: M35.3 Polymyalgia rheumatica (principal)
CPT/HCPCS: 36415; 85652; 86140

== ENCOUNTER 2022-01-13 02:47 | Inpatient (IN) | payer MEDICARE, MEDICAID, SELFPAY ==
[2022-01-13] VITALS (48 sets, daily range): BP systolic 119–169; BP diastolic 58–121; PULSE 87–114; RESP 13–32; TEMP 36–37; O2SAT 89–96
--- NOTE | 2022-01-13 02:45 | RT.EKG_ITS ---
APPROVED REPORT Exam: Resting ECG Reason for Exam: weakness Patient Location: E HR:98 bpm ECG Measurements Heart Rate 98 AXIS SC 159 P 67 QRSd 91 QRS 53 QT 450 T 79 QTc 576 Conclusion Sinus rhythm...normal P axis, V-rate 60- 99 Supraventricular bigeminy...bigeminy string>4 w/ SV complexes Left atrial enlargement...P, P'>60mS, <-0.15mV V1 Nonspecific repol abnormality, lateral leads...ST dep, T neg, I aVL V5 V6 Physician: no stemi
[2022-01-13 03:33] LABS: Abs Immature Grans 0.03 10^3/uL (0.0-0.06); Absolute Basophil Count 0.02 10^3/uL (0.0-0.2); Absolute Lymphocyte Count 1.55 10^3/uL (1.2-3.4); Absolute Neutrophil Count 5.91 10^3/uL (1.2-6.7); Basophils % 0.2; Eosinophils % 1.2; HCT 35.9 % (36.0-46.0); HGB 10.5 g/dL (11.2-15.7); Immature Grans % 0.4; Lymphocytes % 18.7; MCH 27.3 pg (27.0-33.0); MCHC 29.2 % (32.0-36.0); MCV 93.2 fL (80-95); MPV 9.8 fL (8.0-11.0); Monocytes % 8.4; Neutrophils % 71.1; Nucleated RBC 0 %; Platelet Count 224 10^3/uL (130-400); RBC 3.85 10^6/uL (3.93-5.22); RDW 14.3 % (11.7-14.6); RDW-SD 48.1 fL; WBC 8.31 10^3/uL (4.4-10.8)
[2022-01-13 03:35] LABS: Bilirubin Negative (Negative); Blood Small (Negative); Clarity Clear (Clear); Glucose Negative (Negative); Ketones Negative (Negative); Leukocyte Esterase Negative (Negative); Nitrite Negative (Negative); Specific Gravity 1.025 (1.005-1.025); Urobilinogen 0.2 EU/dL (Up TO 0.2)
--- NOTE | 2022-01-13 03:38 | ED.GENADUL_ITS ---
Discharge Plan Disposition Patient Disposition: [facility] INPATIENT Condition: Improving Discharge Details Clinical Impression: Weakness, Chronic obstructive pulmonary disease, Hypoxemia, Pneumonia Primary Care Provider: Katherine Andre ED Provider: Hardy Benson Home Meds and New Rx's Prescriptions: No Action prednisone 5 mg tablet 5 mg PO DAILY 0RF Label Comments: Takes with 10mg tab = 15mg calcium carbonate [Calcium 600] 600 mg calcium (1,500 mg) tablet 600 mg PO BID 0RF acetaminophen 500 mg tablet 1,000 mg PO Q6H PRN0RF Label Comments: Max 6 tabs daily per pt albuterol sulfate 90 mcg/actuation HFA aerosol inhaler 2 puff inhalation Q6H PRN (Reason: shortness of breath or wheezing) Qty: 18 4RF nystatin 100,000 unit/gram powder 1 applic topical BID Qty: 30 0RF mupirocin 2 % ointment 1 applic topical BID Qty: 15 0RF prednisone 10 mg tablet 15 mg PO DAILY 0RF Label Comments: Takes a 10mg tab and a 5mg tab = 15mg (DME) blood-glucose meter [[employer] (formerly [employer])Touch Ultra2 Meter] Kit See Rx Instructions .MEDSUPPLY Qty: 1 2RF Rx Instructions: Check blood sugar twice a day amlodipine 5 mg tablet 5 mg PO DAILY Qty: 90 4RF Rx Instructions: Take 1 tablet daily fluticasone propionate [Flonase Allergy Relief] 50 mcg/actuation spray,suspension 2 spray intranasal DAILY PRN (Reason: allergy symptoms) Qty: 16 4RF Rx Instructions: administer into each nostril glipizide 5 mg tablet 5 mg PO DAILY Qty: 90 4RF (DME) OneTouch Ultra Blue Test Strip Strip See Rx Instructions .MEDSUPPLY Qty: 200 4RF Rx Instructions: Check blood sugar twice a day (DME) lancets [OneTouch Delica Plus Lancet] 33 gauge misc See Rx Instructions .MEDSUPPLY Qty: 200 4RF Rx Instructions: Check blood sugar twice a day metformin 500 mg tablet 1,000 mg PO BID Qty: 360 4RF losartan 100 mg tablet 100 mg PO DAILY Qty: 90 4RF Rx Instructions: Take 1 tab daily in addition to the 50mg tab losartan 50 mg tablet 50 mg PO DAILY Qty: 90 4RF Rx Instructions: Take 1 tab daily in addition to the 100mg tab cetirizine 10 mg tablet 10 mg PO DAILY Qty: 90 4RF Rx Instructions: take one tablet daily Bevespi Aerosphere 9-4.8 mcg HFA aerosol inhaler 1 puff inhalation BID Qty: 10.7 4RF Hold Instructions: Has not started and does not wish to for now Rx Instructions: 1 puff twice a day (DME) Aerochamber MV Spacer See Rx Instructions .ROUTE .MEDSUPPLY Qty: 2 4RF Rx Instructions: Use with inhalers omeprazole 20 mg capsule,delayed release(DR/EC) 20 mg PO DAILY Qty: 90 4RF cholecalciferol (vitamin D3) [Vitamin D3] 25 mcg (1,000 unit) Capsule 25 mcg PO DAILY 0RF furosemide 40 mg tablet 40 mg PO DAILY 0RF Rx Instructions: may svetlana an additional 20 or 40 mg if gaining weight Medical Decision Making This is a 71-year-old female with a past medical history of polymyalgia rheumatica, severe COPD and chronic lung disease on Oxygen dependence at 2 L continuously, GERD, type 2 diabetes, hypertension, presents today for evaluation of weakness. Patient states that about 8 hours ago at dinnertime became weak. She states that her whole body felt weak. She became minimally lightheaded. She denies any room spinning sensation. She does admit to some chronic tinnitus, but denies any acute change. She denies headache, neck pain, vision changes, tingling, or numbness. She states that since her began this evening she also developed some mild shortness of breath. She denies any new cough, fever, or chills. She denies any chest pain or epigastric pain. She states that she has needed her oxygen slightly more than normal tonight. She denies any other complaints this time. No other modifying factors. She states that the last time she felt like this was when she was in renal failure. Physical exam demonstrates no focal neurologic deficits. No current clinical evidence of stroke. Patient demonstrates intact strength for the upper and lower extremities. 5 out of 5. Breathsounds minimally diminished, patient does have a slight increase in her current shortness of breath on her 2 L. She is in the mid 80s on EMS arrival at 2 L. pitting edema of the lower extremities. No signs of april dehydration. Differential is broad but includes pneumonia, electrolyte abnormality, PE is on the differential, or cardiac etiology. Will evaluate for these etiologies, will monitor closely and reassess. 6:16 AM Laboratory work-up is returned, no white count, bandemia or left shift. Hemoglobin has dropped by 2 points from her last hemoglobin level 4 months ago. Patient denies any melanotic stool or hematemesis. D-dimer is age-adjusted normal. Electrolytes normal, renal function stable. proBNP seems to gradually be increasing, current proBNP level is 14,000. However the patient does not clinically fluid overloaded. No significant lower extremity pitting edema. Troponin level normal. EKG unchanged. Thyroid function normal. Urinalysis shows no evidence of infection. Patient continues to feel generalized weakness, but repeat assessment shows no focal weakness or deficit. She has no nystagmus, no headache. However she does appear slightly weak when trying to stand but it appears to be more related to weakness and imbalance however it is challenging to elicit CT head is negative for acute process.Patient is still requiring 3 L of supplemental oxygen to maintain in the mid 90s. Chest x-ray shows evidence of a groundglass density in the right lung base which does concern me for potential for infectious etiology with her increased oxygen demand such feelings of weakness. Due to her age, severe COPD, and multiple risk factors including her weakness in conjunction with her living alone I do feel that inpatient admission is indicated at this time. We will contact the hospitalist. 6:45 AM Discussed the case with Dr. Arboleda. He agrees with the assessment and plan. Diagnosis at this time is weakness, community-acquired pneumonia based on chest x-ray findings and increased hypoxemia she has been given [address] With a CT scan negative for evidence of stroke, no other focal neurologic deficits I do feel that she is stable for admission. She is not a TPA candidate as her symptoms began over 12 hours ago. Patient will be admitted to the floor. I have extensively reviewed the treatment plan with the patient. I have addressed all patient concerns at this time. I have also discussed the plan with the admitting physician and they agree with the current assessment and plan and have agreed to assume responsibility for the patient. All parties demonstrate verbal understanding and agreement with our assessment and plan at this time. The documentation in this chart was dictated using [employer] dictation software. Please excuse any dictation errors. EKG 3: 31 Sinus rhythm, no significant ST elevations or depressions. No evidence of STEMI. Supraventricular bigeminy is noted. FINDINGS: Lungs: Scarring and cystic like lucencies noted consistent with emphysematous disease. Subtle, increased ground-glass densities in the right lung base may be consistent with mild airspace disease. Pleural spaces: No pneumothorax. No pleural effusion. Heart/Mediastinum: Stable cardiomegaly compared to prior chest CT. Bones/joints: Unremarkable. IMPRESSION: 1. Subtle, increased ground-glass densities in the right lung base may be consistent with mild airspace disease. 2. Cardiomegaly. 3. Emphysematous disease. Thank you for allowing us to participate in the care of your patient. Dictated and Authenticated by: Selvin Farmer MD 01/13/2022 4:51 AM Eastern Time ([place] & [place]) FINDINGS: Brain: No acute hemorrhage identified. No large territorial areas of hypoattenuation concerning for ischemic infarct identified. No intracranial mass effect. Subcortical and periventricular white matter hypoattenuation likely consistent with mild chronic microvascular ischemic disease. Cerebral ventricles: The ventricles are within normal limits. Paranasal sinuses: The visualized sinuses are unremarkable. Mastoid air cells: The visualized mastoid air cells are well aerated. Bones/joints: The osseous structures are intact. Soft tissues: Unremarkable. IMPRESSION: 1. No acute intracranial abnormality. 2. Mild chronic microvascular ischemic disease. Thank you for allowing us to participate in the care of your patient. Dictated and Authenticated by: Selvin Farmer MD 01/13/2022 6:34 AM Eastern Time ([place] & [place]) HPI General Date/Time Provider Initiated Documentation: 01/13/22 02:48 . HPI Narrative: This is a 71-year-old female with a past medical history of polymyalgia rheumatica, severe COPD and chronic lung disease on Oxygen dependence at 2 L continuously, GERD, type 2 diabetes, hypertension, presents today for evaluation of weakness. Patient states that about 8 hours ago at dinnertime became weak. She states that her whole body felt weak. She became minimally lightheaded. She denies any room spinning sensation. She does admit to some chronic tinnitus, but denies any acute change. She denies headache, neck pain, vision changes, tingling, or numbness. She states that since her began this evening she also developed some mild shortness of breath. She denies any new cough, fever, or chills. She denies any chest pain or epigastric pain. She states that she has needed her oxygen slightly more than normal tonight. She denies any other complaints this time. No other modifying factors. She states that the last time she felt like this was when she was in renal failure. Related Data Home Medications Medication Instructions Recorded Confirmed [facility]/26/20 12/23/21 Ultra2 Meter) amlodipine 5 mg tablet 5 mg PO DAILY #90 tab-cap 12/11/20 01/13/22 fluticasone propionate 50 2 spray INTRANASAL DAILY PRN #16 g 04/15/21 01/13/22 mcg/actuation nasal spray,suspension (Flonase Allergy Relief) cholecalciferol (vitamin D3) 25 25 mcg PO DAILY 08/30/21 01/13/22 mcg (1,000 unit) capsule (Vitamin D3) glipizide 5 mg tablet 5 mg PO DAILY #90 tab 10/23/21 01/13/22 blood sugar diagnostic #200 ea 11/07/21 12/23/21 lancets 33 gauge ([facility] #200 ea 11/07/21 12/23/21 Plus Lancet) metformin 500 mg tablet 1,000 mg PO BID #360 tab 11/07/21 01/13/22 albuterol sulfate 90 mcg/actuation 2 puff INHALATION Q6H PRN #18 g 12/02/21 01/13/22 aerosol inhaler cetirizine 10 mg tablet 10 mg PO DAILY #90 tab-cap 12/16/21 01/13/22 losartan 100 mg tablet 100 mg PO DAILY #90 tab 12/16/21 01/13/22 losartan 50 mg tablet 50 mg PO DAILY #90 tab 12/16/21 01/13/22 acetaminophen 500 mg tablet 1,000 mg PO Q6H PRN tab 12/23/21 01/13/22 calcium carbonate 600 mg calcium 600 mg PO BID 12/23/21 12/23/21 (1,500 mg) tablet (Calcium) prednisone 10 mg tablet 15 mg PO DAILY tab 12/23/21 01/13/22 prednisone 5 mg tablet 5 mg PO DAILY 12/23/21 01/13/22 glycopyrrolate 9 mcg-formoterol 1 puff INHALATION BID #10.7 g 12/25/21 01/13/22 4.8 mcg HFA aerosol inhaler ([employer] Aerosphere) inhalational spacing device #2 ea 12/25/21 (Aerochamber MV) omeprazole 20 mg capsule,delayed 20 mg PO DAILY #90 tab-cap 12/25/21 01/13/22 release mupirocin 2 % topical ointment 1 applic TOPICAL BID #15 g 01/10/22 01/13/22 nystatin 100,000 unit/gram topical 1 applic TOPICAL BID #30 g 01/10/22 01/13/22 powder furosemide 40 mg tablet 40 mg PO DAILY 01/13/22 01/13/22 Previous Rx's Medication Instructions Recorded blood-glucose meter ([employer] (formerly [employer])Touch #1 ea 11/26/20 Ultra2 Meter) amlodipine 5 mg tablet 5 mg PO DAILY #90 tab-cap 12/11/20 fluticasone propionate 50 2 spray INTRANASAL DAILY PRN #16 g 04/15/21 mcg/actuation nasal spray,suspension (Flonase Allergy Relief) glipizide 5 mg tablet 5 mg PO DAILY #90 tab 10/23/21 blood sugar diagnostic #200 ea 11/07/21 lancets 33 gauge (OneTouch Delica #200 ea 11/07/21 Plus Lancet) metformin 500 mg tablet 1,000 mg PO BID #360 tab 11/07/21 albuterol sulfate 90 mcg/actuation 2 puff INHALATION Q6H PRN #18 g 12/02/21 aerosol inhaler cetirizine 10 mg tablet 10 mg PO DAILY #90 tab-cap 12/16/21 losartan 100 mg tablet 100 mg PO DAILY #90 tab 12/16/21 losartan 50 mg tablet 50 mg PO DAILY #90 tab 12/16/21 glycopyrrolate 9 mcg-formoterol 1 puff INHALATION BID #10.7 g 12/25/21 4.8 mcg HFA aerosol inhaler ([employer]evespi Aerosphere) inhalational spacing device #2 ea 12/25/21 (Aerochamber MV) omeprazole 20 mg capsule,delayed 20 mg PO DAILY #90 tab-cap 12/25/21 release mupirocin 2 % topical ointment 1 applic TOPICAL BID #15 g 01/10/22 nystatin 100,000 unit/gram topical 1 applic TOPICAL BID #30 g 01/10/22 powder Allergies Allergy/AdvReac Type Severity Reaction Status Date / Time codeine AdvReac Severe Cardiac Verified 01/13/22 05:56 Dysrythmia indomethacin AdvReac Intermediate Cardiac Verified 01/13/22 05:56 Dysrythmia lisinopril AdvReac cough Verified 01/13/22 05:56 General Stated Complaint: GenMedical BELKIS: 3 Review of Systems All systems reviewed & are unremarkable except as noted in HPI and below PFSH All Active Problems Weakness (Acute) Hypoxemia (Acute) Pneumonia (Acute) Heart failure with reduced ejection fraction (Chronic) Pulmonary nodule (Acute) Nicotine dependence, cigarettes, uncomplicated (Chronic) Annual LDCT Osteoarthritis of hips, bilateral (Chronic) Type 2 diabetes mellitus (Chronic) Chronic obstructive pulmonary disease (Chronic) 09/2021- O2 dependent on 2 l/min (O2 sat at 83% RA) Essential hypertension (Chronic) Diabetic nephropathy (Chronic) Diabetic retinopathy (Chronic) Ventral hernia (Chronic) Generalized anxiety disorder (Acute) GERD (gastroesophageal reflux disease) (Chronic) Medical History Benign positional vertigo Iron deficiency anemia Migraine aura without headache Surgical History History of esophagogastroduodenoscopy (EGD) (07/30/18) S/P cholecystectomy S/P colonoscopy (07/30/18) S/P tonsillectomy Family History Mother No problems noted. Father Diabetes Daughter No problems noted. Daughter No problems noted. Daughter No problems noted. Daughter No problems noted. 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 3.ENT: Atraumatic external nose and ears. Moist MM. Neck: Symmetric, trachea midline, No thyromegaly. 4.CVS: +S1/S2, No murmurs or gallops. Peripheral pulses 2+ and equal in all e xtremities. Brisk capillary refill in all extremities. 5.RESP: Slightly increased respiratory effort, no wheezes or rhonchi. Slightly diminished breath sounds throughout. 6.GI: Soft, Nontender/Nondistended, No hepatosplenomegaly. No guarding or rebound. 7.MSK: Normocephalic/Atraumatic, Extremities w/o deformity or ttp No cyanosis or clubbing, Normal movement of all extremities, no pitting edema. No calf tenderness. 8.Skin: Warm, Dry. No rashes or lesions. 9.Neuro: dietary director II-XII grossly intact. Sensation grossly intact, no focal neurologic deficits. No dysdiadochokinesia. No dysmetria. 10.Psych: (AAO) x3. Appropriate mood and affect Course Vital Signs Vital signs: Vital Signs Temperature 36.5 C 01/13/22 02:49 Pulse 106 H 01/13/22 02:49 Respiratory Rate 28 H 01/13/22 02:49 Blood Pressure 169/121 H 01/13/22 02:49 Pulse Oximetry 94 01/13/22 02:49 Temperature 36.5 C 01/13/22 02:49 Temperature Source Skin 01/13/22 02:49 Pulse 106 H 01/13/22 02:49 Respiratory Rate 28 H 01/13/22 02:49 Blood Pressure 169/121 H 01/13/22 02:49 Pulse Oximetry 94 01/13/22 02:49 Oxygen Delivery Method Nasal Cannula 01/13/22 02:49 Oxygen Flow Rate 3 01/13/22 02:49 Pain Level 0 01/13/22 02:49 Lab/Test Results Lab/Test Results: Laboratory Tests Range/Units 01/13/22 03:12 WBC (4.4-10.8) 10^3/uL 8.31 RBC (3.93-5.22) 10^6/uL 3.85 L Hgb (11.2-15.7) g/dL 10.5 L Hct (36.0-46.0) % 35.9 L MCV (80-95) fL 93.2 MCH (27.0-33.0) pg 27.3 MCHC (32.0-36.0) % 29.2 L RDW (11.7-14.6) % 14.3 Plt Count (130-400) 10^3/uL 224 MPV (8.0-11.0) fL 9.8 Immature Gran % 0.4 Neutrophils % 71.1 Lymphocytes % 18.7 Monocytes % 8.4 Eosinophils % 1.2 Basophils % 0.2 Nucleated RBC % % 0 Absolute Neutrophils (1.2-6.7) 10^3/uL 5.91 Absolute Lymphocytes (1.2-3.4) 10^3/uL 1.55 Absolute Monocytes (0.1-0.8) 10^3/uL 0.70 Absolute Eosinophils (0.0-0.7) 10^3/uL 0.10 Absolute Basophils (0.0-0.2) 10^3/uL 0.02
[2022-01-13 03:44] LABS: Bacteria Rare HPF (Negative); C & S Indicated? No; Casts Negative LPF (Negative); Crystals Negative HPF (Negative); Epithelial Cells Rare HPF (Negative); Mucus Negative (Negative); WBC Negative HPF (0-5)
[2022-01-13] MEDS: Albuterol/Ipratropium 3 ML UPD VIAL UPD (03:45)
[2022-01-13 04:08] LABS: ALT 40 U/L (14-59); AST 19 U/L (15-37); Albumin 3.9 g/dL (3.4-5.0); Alkaline Phosphatase 41 U/L (46-116); Anion Gap 6.8 mmol/L (3-11); BUN 30 mg/dL (7-18); CO2 32.2 mmol/L (21.0-32.0); CREATININE 1.4 mg/dL (0.55-1.02); Calcium 9.3 mg/dL (8.5-10.1); Chloride 102 mmol/L (98-107); Estimated GFR 36.96 (mL/min/1.73m2); Glucose 116 mg/dL (74-106); NT-proBNP 14162 pg/mL (<300); Sodium 141 mmol/L (136-145); TSH (W/Ref FT4) 1.52 uIU/mL (0.36-3.74); Total Protein 7.5 g/dL (6.4-8.2); Troponin I < 50 ng/L (<or=60)
[2022-01-13 04:12] LABS: D-Dimer 556 ng/mlFEU (<500)
--- NOTE | 2022-01-13 04:15 | DI.RAD_ITS ---
Exam(s) XR PORTABLE CHEST AP EXAM: XR PORTABLE CHEST AP CLINICAL HISTORY: sob, increased O2 demand TECHNIQUE: 2D digital imaging was performed. COMPARISON: CR XR CHEST 2V PA LATERAL from 04/08/[address] CHEST WO from 12/12/2021 FINDINGS: Exam is limited by poor penetration at the lung bases and overlying monitoring leads. The heart is enlarged, unchanged. The aorta shows calcification. There are underlying emphysematous and fibrotic changes. There is some probable linear scarring at the lung bases. There is increased vascular prominence and mildly increased interstitial markings which could indicate superimposed mil d CHF. No definite effusion is seen. IMPRESSION: Cardiomegaly and question of mild CHF. Underlying emphysematous and fibrotic changes. DATA REPOSITORY: RADIATION DOSE DELIVERED:
--- NOTE | 2022-01-13 04:51 | DI.VRAD_ITS ---
PROCEDURE INFORMATION: Exam: XR Chest Exam date and time: 01/13/2022 4:21 AM Age: 71 years old Clinical indication: Shortness of breath; Patient HX: SOB, increased o2 demand TECHNIQUE: Imaging protocol: XR of the chest. Views: 1 view. COMPARISON: 1. CT CHEST WO 12/12/2021 12:50 PM 2. CR XR CHEST 2V PA LATERAL 08/28/2019 10:44 AM FINDINGS: Lungs: Scarring and cystic like lucencies noted consistent with emphysematous disease. Subtle, increased ground-glass densities in the right lung base may be consistent with mild airspace disease. Pleural spaces: No pneumothorax. No pleural effusion. Heart/Mediastinum: Stable cardiomegaly compared to prior chest CT. Bones/joints: Unremarkable. IMPRESSION: 1. Subtle, increased ground-glass densities in the right lung base may be consistent with mild airspace disease. 2. Cardiomegaly. 3. Emphysematous disease. Dictated and Authenticated by: Selvin Farmer MD. Ordering:RAFAEL Dash MD
--- NOTE | 2022-01-13 05:45 | DI.CT_ITS ---
Exam(s) CT HEAD WO EXAM: CT HEAD WO CLINICAL HISTORY: generalized weakness, ataxia. TECHNIQUE: Imaging Protocol: Axial computed tomography images with coronal and sagittal reformatted images were created and reviewed COMPARISON: No exams were available for comparison FINDINGS: Ventricles and Extra axial spaces: Normal in size and morphology for the patient's age. Hemorrhage: None. Cerebral parenchyma: No significant atrophy. Minimal white matter changes consistent with small ves trino disease. Midline shift: None. Brainstem/Cerebellum: Normal. Calvarium: Normal. Visualized Paranasal sinuses/Mastoids: Clear. IMPRESSION: No acute abnormality. RADIATION DOSE DELIVERED: 722.59mGy.cm Total DLP 722.59mGy.cm Total DLP DATA REPOSITORY: All CT scans at this facility are submitted to the National Radiology Data Registry (NRDR) Dose Index Registry (DIR) with the [employer] (ACR). RADIATION OPTIMIZATION: All CT scans at this facility use at least one of these dose optimization te chniques: automated exposure control; mA and/or kV adjustment per patient size (includes targeted exa ms where dose is matched to clinical indication); or iterative reconstruction.
[2022-01-13] MEDS: AZITHROMYCIN 500 MG in Normal Saline 250 ML 250 MG IVPB (05:55)
--- NOTE | 2022-01-13 05:56 | HPE_ITS ---
Date of service: 01/13/22 Time of Service: 05:57 Assessment and Plan Assessment and plan (1) Weakness: Status: Acute Assessment and plan: I am more inclined to call this ataxia than weakness, but that distinction is not entirely clear at present. Still, the gait disturbance is the cardinal finding, and with the sudden onset of symptoms, along perhaps with some dysmmetria, I wonder about stroke, particularly cerebellar. Have requested head CT. In looking at this as more a nonspecific weakness one can also note several findings that may be relevant: decrease in Hct; increase in BNP and subtle CXR findings. Would track HCT (no overt signs bleeding); consider trial dose increase diuretic; and await COVID results. Would also consider treatment for atypical pneumonia but without cough, fever of leukocytosis I think this is unlikely. History of Present Illness History of Present Illness Chief Complaint: weakness Narrative: 71 female with COPD, on home O2, unvaccinated -- reports sudden onset of generalized weakness following dinner earlier this evening, manifesting primarily in difficulty walking. No HANSEN, nausea, no focal weakness or change in vision or speech. In ER findings of note for intial O2 sat high 80s, since mid 90s on 3 L, profound ataxia, No fever, white count 8.3, Hct 35.9 (baseline 41); d-Dimer 542, BNP 27412, CXR showing mild ground glass opacities RLL and COVID is pending. I was asked to evaluate for admission. Denies cough or CP, and SOB is baseline, without change. Review of Systems Narrative: per HPI PFSH All Active Problems Weakness (Acute) Hypoxemia (Acute) Pneumonia (Acute) Heart failure with reduced ejection fraction (Chronic) Pulmonary nodule (Acute) Nicotine dependence, cigarettes, uncomplicated (Chronic) Annual LDCT Osteoarthritis of hips, bilateral (Chronic) Type 2 diabetes mellitus (Chronic) Chronic obstructive pulmonary disease (Chronic) 09/2021- O2 dependent on 2 l/min (O2 sat at 83% RA) Essential hypertension (Chronic) Diabetic nephropathy (Chronic) Diabetic retinopathy (Chronic) Ventral hernia (Chronic) Generalized anxiety disorder (Acute) GERD (gastroesophageal reflux disease) (Chronic) Medical History Benign positional vertigo Iron deficiency anemia Migraine aura without headache Surgical History History of esophagogastroduodenoscopy (EGD) (07/30/18) S/P cholecystectomy S/P colonoscopy (07/30/18) S/P tonsillectomy Family History Mother No problems noted. Father Diabetes Daughter No problems noted. Daughter No problems noted. Daughter No problems noted. Daughter No problems noted. 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 Pets and animals: Yes Pets and animals: cat(s) Current gender identity: female What type of physical activity do you participate in: none Irma/Hoahaoism: Restorationism Special irma needs: No Do you feel safe at home: Yes Do you feel safe in your relationship?: Yes Meds Allergies and Home Medications Allergies Allergy/AdvReac Type Severity Reaction Status Date / Time codeine AdvReac Severe Cardiac Verified 01/13/22 05:56 Dysrythmia indomethacin AdvReac Intermediate Cardiac Verified 01/13/22 05:56 Dysrythmia lisinopril AdvReac cough Verified 01/13/22 05:56 Home Medications Medication Instructions Recorded Confirmed Type blood-glucose meter (OneTouch #1 ea 11/26/20 12/23/21 Rx Ultra2 Meter) amlodipine 5 mg tablet 5 mg PO DAILY #90 tab-cap 12/11/20 12/23/21 Rx fluticasone propionate 50 2 spray INTRANASAL DAILY PRN #16 g 04/15/21 12/23/21 Rx mcg/actuation nasal spray,suspension (Flonase Allergy Relief) cholecalciferol (vitamin D3) 25 25 mcg PO DAILY 08/30/21 12/23/21 History mcg (1,000 unit) capsule (Vitamin D3) glipizide 5 mg tablet 5 mg PO DAILY #90 tab 10/23/21 12/23/21 Rx blood sugar diagnostic #200 ea 11/07/21 12/23/21 Rx lancets 33 gauge (OneTouch Delica #200 ea 11/07/21 12/23/21 Rx Plus Lancet) metformin 500 mg tablet 1,000 mg PO BID #360 tab 11/07/21 12/23/21 Rx albuterol sulfate 90 mcg/actuation 2 puff INHALATION Q6H PRN #18 g 12/02/21 12/23/21 Rx aerosol inhaler cetirizine 10 mg tablet 10 mg PO DAILY #90 tab-cap 12/16/21 12/23/21 Rx losartan 100 mg tablet 100 mg PO DAILY #90 tab 12/16/21 12/23/21 Rx losartan 50 mg tablet 50 mg PO DAILY #90 tab 12/16/21 12/23/21 Rx acetaminophen 500 mg tablet 1,000 mg PO Q6H PRN tab 12/23/21 12/23/21 History calcium carbonate 600 mg calcium 600 mg PO BID 12/23/21 12/23/21 History (1,500 mg) tablet (Calcium) prednisone 10 mg tablet 15 mg PO DAILY tab 12/23/21 12/23/21 History prednisone 5 mg tablet 5 mg PO DAILY 12/23/21 12/23/21 History glycopyrrolate 9 mcg-formoterol 1 puff INHALATION BID #10.7 g 12/25/21 Rx 4.8 mcg HFA aerosol inhaler (Bevespi Aerosphere) inhalational spacing device #2 ea 12/25/21 Rx (Aerochamber MV) omeprazole 20 mg capsule,delayed 20 mg PO DAILY #90 tab-cap 12/25/21 Rx release mupirocin 2 % topical ointment 1 applic TOPICAL BID #15 g 01/10/22 01/10/22 Rx nystatin 100,000 unit/gram topical 1 applic TOPICAL BID #30 g 01/10/22 01/10/22 Rx powder furosemide 40 mg tablet 40 mg PO DAILY 01/13/22 01/13/22 History Exam Narrative Exam Narrative: 128/57, 92, 36.5, 27, 94% 2L. HEENT atraumatic; neck supple; lungs diminished; heart occ irregularity; abdomen soft and NT; extremities 1+ pedal edema; neuro Ox3, l;ucid; PERRL, EOMI, no facial asymmetry; motor 5/5, sensory intact light touch; gait severe ataxia, slight dysmmetria left perhaps, heel to [place] WNL Results Labs Result diagrams: 01/13/22 03:12 01/13/22 03:12 Labs: Laboratory Results - last 24 hr 01/13/22 01/13/22 01/13/22 03:12 03:12 03:12 WBC 8.31 RBC 3.85 L Hgb 10.5 L Hct 35.9 L MCV 93.2 MCH 27.3 MCHC 29.2 L RDW 14.3 Plt Count 224 MPV 9.8 Immature Gran % 0.4 Neutrophils % 71.1 Lymphocytes % 18.7 Monocytes % 8.4 Eosinophils % 1.2 Basophils % 0.2 Nucleated RBC % 0 Absolute Neutrophils 5.91 Absolute Lymphocytes 1.55 Absolute Monocytes 0.70 Absolute Eosinophils 0.10 Absolute Basophils 0.02 D-Dimer 556 H Sodium 141 Potassium 4.0 Chloride 102 Carbon Dioxide 32.2 H Anion Gap 6.8 BUN 30 H Creatinine 1.4 H Estimated GFR/1.73 m2 36.96 Glucose 116 H Calcium 9.3 Total Bilirubin 1.0 AST 19 ALT 40 Alkaline Phosphatase 41 L Troponin I < 50 NT-Pro-B Natriuret Pep 49014 H Total Protein 7.5 Albumin 3.9 TSH 1.52 Urine Color Urine Clarity Urine pH Ur Specific [place] Urine Protein Urine Ketones Urine Blood Urine Nitrite Urine Bilirubin Urine Urobilinogen Ur Leukocyte Esterase Urine RBC Urine WBC Ur Epithelial Cells Urine Crystals Urine Bacteria Urine Casts Urine Mucus Ur Culture Indicated? Urine Glucose 01/13/22 03:20 WBC RBC Hgb Hct MCV MCH MCHC RDW Plt Count MPV Immature Gran % Neutrophils % Lymphocytes % Monocytes % Eosinophils % Basophils % Nucleated RBC % Absolute Neutrophils Absolute Lymphocytes Absolute Monocytes Absolute Eosinophils Absolute Basophils D-Dimer Sodium Potassium Chloride Carbon Dioxide Anion Gap BUN Creatinine Estimated GFR/1.73 m2 Glucose Calcium Total Bilirubin AST ALT Alkaline Phosphatase Troponin I NT-Pro-B Natriuret Pep Total Protein Albumin TSH Urine Color Yellow Urine Clarity Clear Urine pH 6.0 Ur Specific [place] 1.025 Urine Protein 100 H Urine Ketones Negative Urine Blood Small H Urine Nitrite Negative Urine Bilirubin Negative Urine Urobilinogen 0.2 Ur Leukocyte Esterase Negative Urine RBC 3-5 H Urine WBC Negative Ur Epithelial Cells Rare Urine Crystals Negative Urine Bacteria Rare Urine Casts Negative Urine Mucus Negative Ur Culture Indicated? No Urine Glucose Negative Last Vital Signs Temp 36.5 C 01/13/22 02:49 Pulse 92 H 01/13/22 05:01 Resp 27 H 01/13/22 05:20 BP 128/67 01/13/22 05:01 Pulse Ox 94 01/13/22 05:20
[2022-01-13 06:05] LABS: Source Nasal/Nares
--- NOTE | 2022-01-13 06:35 | DI.VRAD_ITS ---
PROCEDURE INFORMATION: Exam: CT Head Without Contrast Exam date and time: 01/13/2022 5:53 AM Age: 71 years old Clinical indication: Other: Generalized weakness, ataxia TECHNIQUE: Imaging protocol: Computed tomography of the head without contrast. Radiation optimization: All CT scans at this facility use at least one of these dose optimization techniques: automated exposure control; mA and/or kV adjustment per patient size (includes targeted exams where dose is matched to clinical indication); or iterative reconstruction. COMPARISON: CT HEAD CERVICAL SPINE WO 01/10/2020 8:41 PM FINDINGS: Brain: No acute hemorrhage identified. No large territorial areas of hypoattenuation concerning for ischemic infarct identified. No intracranial mass effect. Subcortical and periventricular white matter hypoattenuation likely consistent with mild chronic microvascular ischemic disease. Cerebral ventricles: The ventricles are within normal limits. Paranasal sinuses: The visualized sinuses are unremarkable. Mastoid air cells: The visualized mastoid air cells are well aerated. Bones/joints: The osseous structures are intact. Soft tissues: Unremarkable. IMPRESSION: 1. No acute intracranial abnormality. 2. Mild chronic microvascular ischemic disease. Dictated and Authenticated by: Selvin Farmer MD. Ordering:RAFAEL Dash MD
[2022-01-13 06:44] LABS: COVID-19 PCR Negative (Negative)
--- NOTE | 2022-01-13 07:35 | DI.US_ITS ---
APPROVED REPORT EXAM: Comprehensive 2D, Doppler, and color-flow Echocardiogram Patient Location: ER Room/Bed: 4 Practice Clinician: Chandni Ba RDCS (AE) Indications: Pulmonary Congestion Other Information Study Quality: Fair. Technically limited study due to inability to position patient, body habitus. Conclusion Mildly dilated left ventricle. Normal left ventricular wall thickness. Estimated ejection fraction is 35% with global hypokinesis The right ventricle is dilated and hypocontractile Both atria are moderately enlarged There is mild aortic valve sclerosis without stenosis or regurgitation Mild mitral annular calcification. Moderate mitral regurgitation Normal tricuspid valve with mild regurgitation. Estimated right ventricular systolic pressure is 44 mmHg Wall motion Left Ventricle Left ventricle is mildly dilated. Left ventricular systolic function is moderately decreased. There i s normal left ventricular wall thickness. There is global hypokinesis of the left ventricle. There is no ventricular septal defect visualized. LVEF is 35%. Right Ventricle Right ventricle is borderline dilated. Right ventricle is hypokinetic. The RVSP is 43.8 mmHg. Atria Left atrium is moderately dilated. Right atrium is moderately dilated. The interatrial septum is inta ct with no evidence for an atrial septal defect. Aortic Valve The Aortic valve is mildly sclerotic. Aortic valve is trileaflet. There is no aortic valvular stenosi s. No aortic regurgitation is present. Mitral Valve Mild mitral annular calcification. No evidence of mitral valve stenosis. Moderate mitral regurgitatio n. Tricuspid Valve The tricuspid valve is normal in structure. There is no tricuspid valve stenosis. Mild tricuspid regu rgitation. Pulmonic Valve The pulmonary valve is normal in structure. There is no pulmonic valvular stenosis. Trace pulmonic re gurgitation. Great Vessels The aortic root is normal in size. The ascending aorta is normal in size. Aortic arch is not well vis ualized. The IVC collapses <50% with inspiration. Pericardium There is no pericardial effusion. 2D Dimensions IVSD d PLAX 0.89 cm F: 0.6-1.0 LV Vol A2C d MOD 144.9 mL LVPW d PLAX 0.85 cm F: 0.6 - 1.0 LV Vol A4C d MOD 143.0 mL LVID d PLAX 5.47 cm F: 3.8 - 5.2 LA vol/ BSA A2C s A-L 57.5 mL/m2 LVDs 4.60 cm F: 2.2 - 3.5 LA vol/ BSA A4C s A-L 42.1 mL/m2 Ao Root d 2.45 cm F: 2.7 - 3.3 LA Vol/ BSA Biplane s A-L 49.6 mL/m2 RA Area A4C 20.77 cm2 LA Area A4C s MOD 25.03 cm2 RA Vol/ BSA A4C s A-L 32.5 mL/m2 LA Area A2C s MOD 28.98 cm2 Ao Asc Diam d 3.17 cm F: 2.3 - 3.1 LV EF A4C MOD 35.2 % LV EF Teichholz 32.5 % LV EF A2C MOD 33.1 % LVEF (Claudio's) 34.43 % F: 54 - 74 LV EF Biplane MOD 34.4 % LV Volume 112.94 mL F: 46 - 106 SV 50.91 mL LV Volume Index 59.75 mL/m2 F: 29 - 61 SV Index 26.87 mL/m2 LV Vol Biplane MOD 147.8 mL FS 15.55 % M-Mode TAPSE 1.26 cm (M/F) >1.7 LV Diastology MV E' medial 0.060 (>0.07 m/s) E/A Ratio 1.2 LV E/e MED 29.65 (<14) MV E Vmax 1.79 (0.4-1.3 m/s) MV E' lateral 0.096 (>0.1 m/s) MV A Vmax 1.50 (0.4-1.3 m/s) LV E/e LAT 18.60 (<14) MV E/A Ratio 1.17 MV E/E' medial 29.70 MV E/E' lateral 18.62 Aortic Valve LVOT Area 3.00 cm2 AoV Area Vmax 1.87 cm2 LVOT Vmax 1.05 m/s AoV Area/ BSA (Vmax) 0.99 cm2/m2 LVOT Mean Med. 0.79 m/s STEPHAN Mean Med. 1.95 cm2 LVOT Peak Grad 4.4 mmHg STEPHAN Mean Med. Index 1.03 cm2/m2 LVOT Mean Grad 2.8 mmHg LVOT VTI 0.186 m LVOT Diam s 1.95 cm AoV Vmax 1.67 m/s Velocity Ratio 0.62 AoV Mean Med. 1.21 m/s AoV Peak Grad 11.2 mmHg LVOT SV 55.67 mL AoV Mean Grad 6.5 mmHg AoV VTI 0.317 m AoV Area VTI 1.76 cm2 AoV Area/ BSA (VTI) 0.93 cm/m2 Mitral Valve MV DT 208 (160-240 msec) MR Vmax 5.11 m/s MV PHT 60 msec MR VTI 1.495 m MV Area PHT 3.65 cm2 MR Peak Grad 104.4 mmHg MV VTI 0.460 m MR Mean Grad 80.5 mmHg MV VTI Annulus 0.465 m MR PISA Radius 0.38 cm MV Area VTI 1.22 (4.0-6.0 cm2) MR EROA 0.06 cm2 MR Aliasing Velocity 0.35 m/s MR PISA 0.91 cm2 Pulmonary Valve PV Vmax 1.25 (0.5-1.5 m/s) RVOT Peak Gr. 2.51 mmHg PV Peak Grad 6.2 mmHg RVOT Mean Gr. 1.30 mmHg PV Mean Grad 3.5 mmHg RVOT VTI 0.154 m PV VTI 0.256 m RVOT Vmax 0.79 m/s Tricuspid Valve TR Peak Grad 35.7 mmHg TR Vmax 2.99 m/s RA Pressure 8.00 mmHg RVSP (TR) 43.8 mmHg
[2022-01-13] MEDS: Furosemide 40 MG TAB PO (09:19)
[2022-01-13] MEDS: predniSONE 10 MG TAB 15 MG PO (09:19)
[2022-01-13] MEDS: Omeprazole 20 MG CAPCR PO (09:20)
[2022-01-13] MEDS: amLODIPine 5 MG TAB PO (09:20)
[2022-01-13] MEDS: metFORMIN 500 MG TAB 1000 MG PO (09:20)
[2022-01-13] MEDS: Cetirizine 10 MG TAB PO (09:20)
[2022-01-13] MEDS: Losartan 50 MG TAB 150 MG PO (09:21)
[2022-01-13] MEDS: glipiZIDE 5 MG TAB PO (10:24)
[2022-01-13] MEDS: cefTRIAXone 1 GM/50 ML BAG IVPB (13:08)
--- NOTE | 2022-01-13 13:26 | NUR.NOTE ---
Nursing Note: Patient has adamantly refused insulin dosing, stated she never uses insulin. Patient has pushed back on other treatments , education on all items has been given, Nursing acknowledges patient can pick or choose her tx.
--- NOTE | 2022-01-13 13:47 | IN_ITS ---
Date of service: 01/13/22 Time of Service: 13:47 PT Notes Visit Reasons: Weakness,Ataxia Physical Therapy Inpatient Initial Evaluation Date: 01/13/2022 Referring Doctor: Amy Cisneros NP PT Orders: PT CONSULT: Eval/Treat Precautions: Activity as tolerated. Patient Profile/Admitting Diagnosis: Patient is a 71-year-old female who presented to the ED on 01/13/2022 due to generalized weakness, dizziness, lightneadedness, mild shortness of breath, and difficulty with breathing. Patient with suspected diagnoses of weakness with question of cerebellar CVA, atypical pneumonia, and generalized weakness. PMHX: All Active Problems? Weakness (Acute) Hypoxemia (Acute) Pneumonia (Acute) Heart failure with reduced ejection fraction (Chronic) Pulmonary nodule (Acute) Nicotine dependence, cigarettes, uncomplicated (Chronic) Annual LDCTOsteoarthritis of hips, bilateral (Chronic) Type 2 diabetes mellitus (Chronic) Chronic obstructive pulmonary disease (Chronic) 09/2021- O2 dependent on 2 l/min (O2 sat at 83% RA)Essential hypertension (Chronic) Diabetic nephropathy (Chronic) Diabetic retinopathy (Chronic) Ventral hernia (Chronic) Generalized anxiety disorder (Acute) GERD (gastroesophageal reflux disease) (Chronic) Medical History? Benign positional vertigo Iron deficiency anemia Migraine aura without headache Surgical History? History of esophagogastroduodenoscopy (EGD) (07/30/18) S/P cholecystectomy S/P colonoscopy (07/30/18) S/P tonsillectomy Social History/Home Situation: Patient lives alone at the [address] here in [place] with 2 steps to enter.? She has a basement but she stresses that she does not need to go down as she has everything she needs on the main floor of the apartment.? She reports that the washer/dryer area is about 100 feet from her apartment.? Prior to this most recent hospitalization, [place] was independent with all aspects of ADLs without the need for an assistive ambulatory device nor adaptive equipment. Equipment Owned/DME: [facility] Subjective: reports of being weak but feeling much better than earlier today. Denies any nausea, lightheadedness, and headache. She is agreeable to home health physical therapy services coming into her apartment once she is medically cleared to go back home.? Reports no falls in the past 12 months. Objective: General Observation: Telemetry monitoring in place.?Mild swelling to bilateral legs. Mental Status: Alert and oriented x 4 Pain: Denies Vital Signs: WNL as close;y monitored by nursing staff ROM: Right Upper Extremity: ? Shoulder Flexion WFL. Shoulder abduction WFL. Elbow flexion WFL. Wrist flexion WFL. Opening and closing of hand WFL. Left Upper Extremity:? Shoulder Flexion allows only up to 90 degrees. Shoulder abduction allows only up to 80 degrees. Elbow flexion WFL. Wrist flexion WFL. Opening and closing of hand WFL. Right Lower Extremity: Hip flexion WFL. Hip abduction WFL. Knee flexion WFL. Ankle dorsiflexion to neutral only. Ankle plantarflexion WFL. Left Lower Extremity: Hip flexion unable to bend beyond 90 due to left hip pain. Hip abduction WFL. Knee flexion WFL. Ankle dorsiflexion to neutral only. Ankle plantarflexion WFL. Strength: Right Upper Extremity: Shoulder flexors 4-/5. Shoulder abductors 4-/5. Elbow flexors 4/5. Elbow extensors 4/5. 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 Left Upper Extremity: Shoulder flexors 3-/5. Shoulder abductors 3-/5. Elbow flexors 4-/5. Elbow extensors 4-/5. 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 Right Lower Extremity: Hip flexors 4/5. Hip abductors 4/5. Knee flexors 4/5. Knee extensors 4/5. Ankle dorsiflexors 3-/5. Ankle plantarflexors 4-/5. Left Lower Extremity:Hip flexors 3-/5. Hip abductors 3-/5. Knee flexors 3/5. Knee extensors 3/5. Ankle dorsiflexors 3-/5. Ankle plantarflexors 4/5. Sensation: Intact as to pain and pressure on bilateral lower extremities. Bed Mobility/Transfers: Rolling SBA Supine to sit SBA with HIB at 30 degrees Sit to stand CGA Stand to sit CGA CGA Bed to chair? CGA Chair to bed CGA Gait: Patient tolerated level surface ambulation of 20 feet + 15 feet + 15 feet using front-wheeled walker with CGA. Reciprocal step through gait pattern.? Terri decreased. No ataxia, limb shaking, tremors seen observed. Denies headache, chest pain, and dizziness. Balance: Static Sitting: Normal Dynamic Sitting: Normal Static Standing: Fair Dynamic Standing: Fair Special Tests: Mobility Limitations Standardized Measure [facility] 6 clicks Basic Mobility Inpatient Short Form: Raw Score: 20? CMS Score: 36% deficit? ? ? Informed Consent/Education:? Patient instructed in purpose of PT consult and plan of care. Assessment: Mild pronator drift on L UE. Weakness on L UE/LE much more discernible than the R. Difficulty with walking, need for assistive device for all mobility ADL performance, increased risk for falls, and generalized weakness, resulting from current diagnoses. Patient is a 71-year-old female who presented to the ED on 01/13/2022 due to generalized weakness, dizziness, lightneadedness, mild shortness of breath, and difficulty with breathing. Patient with suspected diagnoses of weakness with question of cerebellar CVA, atypical pneumonia, and generalized weakness. Patient presents with clinical signs and symptoms consistent with current/admitting diagnoses that have resulted to mobility limitations, gait instability, generalized weakness, and impairment of motor control as demo nstrated by the following impairment level findings: 1.? Decreased strength to B LE major muscle groups 2.? Impaired standing balance 3.? Impaired activity tolerance 4.? Limitation of joint range of motion in left shoulder and left hip Impairments are contributing to the following functional limitations: 1.? Increased dependence with transfers 2.? Inability to safely ambulate without assistive device and physical assistance 3.? Increase completion time for mobility ADL performance 4.? Increased fall risk 5.? Inability to negotiate steps alone safely Patient is assessed as a 55053 moderate complexity based on the following: History: 69-year-old female with impairment level findings, functional limitations, and [facility] deficit score of 36% Examination: Demonstrable impairment in strength, balance, and range of motion with underlying impairments and functional limitations as documented above Presentation:Evolving Decision Makin moderate complexity Goals: Goals X1 week 1. Supine-Sit independent 2. Sit-Supine independent 3. Sit-Stand independent 4. Stand-Sit independent 5. Bed-Chair independent 6. Chair-Bed independent 7. Independent gait on level surface with use of least restrictive device for at least 300 feet without report of pain nor dyspnea 8. Independent stair negotiation while holding onto bilateral rails for at least 10 steps without report of pain nor dyspnea 9. Independent with home exercise program 10. Good static and dynamic standing balance/tolerance Plan of Care/Treatment Plan: 1-2x/day, 7 days/week x 1 week. Plan of care has been reviewed with the COMMISSARY SUPERINTENDENT providing the service under Physical Therapy direction. Initiate Physical Therapy intervention for strengthening, bed mobility, transfers, gait, stairs, balance training, use of assistive device. DISCHARGE RECOMMENDATIONS: [] Home with no services [] [X] Home with services. Patient will benefit from home health PT services in order to progress mobility level using least restrictive assistive ambulatory device, assess home safety, identify additional equipment needs, and establish a functional maintenance program that will increase ability of patient to remain at home. [] Home with outpatient PT [] [] SNF for continued rehabilitation [] [] [facility] [] follow-up no [] SNF versus LTC based on ability to participate and progress [] TREATMENT CODE/TIME: 61667 x 20 minutes, 97764 x 11 minutes beginning at 13:47 PM. Thank you very much for this referral. Nahed Miller PT, DPT, CLT [facility] [place], [place]
[2022-01-13] MEDS: Furosemide 40 MG/4 ML VIAL IVP (15:43)
--- NOTE | 2022-01-13 18:36 | NUR.NOTE ---
Nursing Note: Patient Had complained a DR had not been into see her to explain her test. I explained to the patient she was admitted to [facility] this morning and was seen by the admitting provider Dr. Arboleda and he should have reviewed the plan of care with her. She stated she had never seen Dr. Arboleda. I asked her if she had agreed to be admitted and she said yes. That Dr Arboleda had seen her for a few minutes. I explained to her that she had been seen by a Dr early this morning , and the hospitalist told me that unless she had an emergency, she would be seen by them tomorrow. She still disagreed with me that she needed to see a hospitalist today. i asked the fun house operator to speak to her, to see if she could explain it better than I did.
[2022-01-13] MEDS: Nystatin POWDER 60 GM JAR TP (19:46)
[2022-01-13] MEDS: Calcium Carbonate 1.5 GM TAB PO (19:46)
[2022-01-13] MEDS: Melatonin 3 MG TAB 6 MG PO (22:09)
[2022-01-14] VITALS (8 sets, daily range): BP systolic 127–144; BP diastolic 75–81; PULSE 63–92; RESP 16–22; TEMP 36.3–36.7; O2SAT 92–97
[2022-01-14] MEDS: AZITHROMYCIN 500 MG in Normal Saline 250 ML 250 MG IVPB (05:32)
[2022-01-14 06:30] LABS: Abs Immature Grans 0.01 10^3/uL (0.0-0.06); Absolute Basophil Count 0.02 10^3/uL (0.0-0.2); Absolute Eosinophil Count 0.12 10^3/uL (0.0-0.7); Absolute Lymphocyte Count 1.33 10^3/uL (1.2-3.4); Absolute Monocyte Count 0.85 10^3/uL (0.1-0.8); Absolute Neutrophil Count 7.15 10^3/uL (1.2-6.7); Basophils % 0.2; Eosinophils % 1.3; HCT 34.5 % (36.0-46.0); HGB 10.4 g/dL (11.2-15.7); Immature Grans % 0.1; MCH 27.5 pg (27.0-33.0); MCHC 30.1 % (32.0-36.0); MCV 91.3 fL (80-95); MPV 10.2 fL (8.0-11.0); Neutrophils % 75.4; Nucleated RBC 0 %; Platelet Count 230 10^3/uL (130-400); RBC 3.78 10^6/uL (3.93-5.22); RDW 14.1 % (11.7-14.6); RDW-SD 47.3 fL; WBC 9.48 10^3/uL (4.4-10.8)
[2022-01-14 06:45] LABS: Anion Gap 7.1 mmol/L (3-11); BUN 33 mg/dL (7-18); CO2 30.9 mmol/L (21.0-32.0); CREATININE 1.3 mg/dL (0.55-1.02); Calcium 9.3 mg/dL (8.5-10.1); Chloride 104 mmol/L (98-107); Estimated GFR 40.26 (mL/min/1.73m2); Glucose 131 mg/dL (74-106); Magnesium 2.1 mg/dL (1.8-2.4); Sodium 142 mmol/L (136-145)
[2022-01-14] MEDS: Normal Saline Flush 10 ML SYR (06:55)
[2022-01-14] MEDS: Losartan 50 MG TAB 150 MG PO (09:25)
[2022-01-14] MEDS: Omeprazole 20 MG CAPCR PO (09:26)
[2022-01-14] MEDS: Calcium Carbonate 1.5 GM TAB PO ×2 (09:26→20:47)
[2022-01-14] MEDS: Cholecalciferol (Vitamin D3) 1,000 UNIT TAB 1000 UNITS PO (09:26)
[2022-01-14] MEDS: Cetirizine 10 MG TAB PO (09:26)
[2022-01-14] MEDS: amLODIPine 5 MG TAB PO (09:27)
[2022-01-14] MEDS: predniSONE 10 MG TAB 15 MG PO (09:28)
[2022-01-14] MEDS: Nystatin POWDER 60 GM JAR TP ×2 (09:30→20:47)
[2022-01-14] MEDS: Normal Saline Flush 10 ML SYR IVP ×2 (09:30→15:17)
[2022-01-14] MEDS: Furosemide 40 MG/4 ML VIAL IVP ×2 (09:37→15:17)
--- NOTE | 2022-01-14 10:08 | W.INDIABCONS ---
Date of service: 01/14/22 Time of Service: 10:12 Diabetes Inpatient Consult Reason for Visit: DM DESCRIPTION/ASSESSMENT: 71 year old female admitted with weakness with long standing history of smoking with COPD and uses home oxygen. PMH: DM, HTN. Home Dm meds: 5 mg glipizide, 1000 mg metformin BID. Weight appropriate and stable. Most recent A1C: 8.1% (10/10/22). Current home DM meds providing good glycemic management. With co morbidities, recommend keeping A1C <8.5%. Following Low Sodium/Diabetic Diet with adequate intake. Not considered at nutritional risk. PLAN: will follow and support prn. Time Spent in Nutritional Counseling and Treatment: 0
--- NOTE | 2022-01-14 10:50 | PGE_ITS ---
Date of Service Date of service: 01/14/22 Time of Service: Assessment and Plan Assessment and plan (1) Heart failure with reduced ejection fraction: Start date: 01/14/22 Start time: :30 Status: Chronic Assessment and plan: Echo revealing EF of 30 moderate PHTN, Dilated Left and Right ventrilce. This was likely the cause of her weakness. She is at least 5+ kg from baseline Lasix BID continue to monitor daily wt. Repeat bnp tomorrow Ron stocking. LS diminished Work with PT (2) Weakness: Start date: 01/14/22 Start time: :30 Status: Acute Assessment and plan: as above (3) Type 2 diabetes mellitus: Start date: 01/14/22 Start time: :30 Status: Chronic Assessment and plan: SSI, hold metform and glipizide (4) Chronic obstructive pulmonary disease: Start date: 01/14/22 Start time: :30 Status: Chronic Assessment and plan: Not exacerbated at this time Oxygen dependent Qualifiers: COPD type: emphysema Emphysema type: centrilobular Qualified Code(s): J43.2 - Centrilobular emphysema (5) Essential hypertension: Start date: 01/14/22 Start time: :30 Status: Chronic Assessment and plan: Continue home medications (6) Polymyalgia rheumatica: Start date: 01/14/22 Start time: :30 Status: Suspected Assessment and plan: continue home prednisone (7) GERD (gastroesophageal reflux disease): Start date: 01/14/22 Start time: :30 Status: Chronic Assessment and plan: continue omeprazole (8) DVT prophylaxis: Start date: 01/14/22 Start time: :30 Status: Acute Assessment and plan: enoxaparain sub cu (9) Discharge planning issues: Start date: 01/14/22 Start time: 09:30 Status: Acute Assessment and plan: Home when medically ready with services discussed with Dr Guardado Subjective Subjective Patient reports: no new complaints Interval history since last seen: Spoke with patient about test results. Pleased with care from this provider per patient. She does not have any cough, oxygen dependent. Afebrile. Echo is with EF of 35% which is unchanged from previous. She understand she is 5 kg above baseline and that needs IV lasix BID. She is also agreeable to TEDs. Due to no clinical sx of COPD exacerbation will d/c antibiotics. She asked evening lasix be changed to earlier time d/t voiding all evening. Changed to 1400. Patient denies SOB, CP. Exam Narrative Exam Narrative: 2L oxygen dependent at all time. HEENT atraumatic; neck supple; lungs di minished; heart occassaional irregularity; abdomen soft and NT; extremities +2 pedal edema in RLE, 1+ lle; neuro Ox3, lucid; PERRL, EOMI, no facial asymmetry; motor 5/5, sensory intact light touch; gait severe ataxia, slight dysmmetria left perhaps, heel to [place] WNL Objective Last Vital Signs Temp 36.7 C 01/14/22 07:56 Pulse 90 01/14/22 07:56 Resp 18 01/14/22 07:56 BP 129/81 01/14/22 07:56 Pulse Ox 96 01/14/22 07:56 Laboratory Results - last 24 hr 01/14/22 01/14/22 06:00 06:00 WBC 9.48 RBC 3.78 L Hgb 10.4 L Hct 34.5 L MCV 91.3 MCH 27.5 MCHC 30.1 L RDW 14.1 Plt Count 230 MPV 10.2 Immature Gran % 0.1 Neutrophils % 75.4 Lymphocytes % 14.0 Monocytes % 9.0 Eosinophils % 1.3 Basophils % 0.2 Nucleated RBC % 0 Absolute Neutrophils 7.15 H Absolute Lymphocytes 1.33 Absolute Monocytes 0.85 H Absolute Eosinophils 0.12 Absolute Basophils 0.02 Sodium 142 Potassium 4.0 Chloride 104 Carbon Dioxide 30.9 Anion Gap 7.1 BUN 33 H Creatinine 1.3 H Estimated GFR/1.73 m2 40.26 Glucose 131 H Calcium 9.3 Magnesium 2.1
[2022-01-14] MEDS: Insulin Aspart 300 UNITS/3 ML PEN SC ×2 (11:58→17:07)
--- NOTE | 2022-01-14 14:35 | PT.INTREAT ---
Date of service: 01/14/22 Time of Service: 10:22 PT Notes Visit Reasons: Weakness,Ataxia Inpatient Physical Therapy Treatment Note [facility] Date: 01/14/2022 PRECAUTIONS: Activity as tolerated SUBJECTIVE: Beth is pleasant and agreeable to participating in PT. She states that she has felt weak, specifically in the L LE. OBJECTIVE: PAIN: No c/o pain BED MOBILITY/TRANSFERS Sit-stand: SBA Stand-sit: SBA GAIT Assistive Device: FWW Weight bearing: Full Assist: SBA Distance: 50' x2 in a.m.; 100' in p.m. Deviation: C/o B LE weakness, L LE giving out, 3L O2 via NC; seated rest in a.m. TOILETING: Patient toileted with SBA for transfers ASSESSMENT: Patient tolerated session well without complaint. She was able to tolerate a progression in gait distance with FWW support and supervision. She demonstrates independence with transfers and bed mobility at this time. PLAN: Continue with global strengthening and gait training for improved activity tolerance. TREATMENT CODE/TIME: 15 minutes; 11362 (10:22) 10 minutes; 84115 (14:38)
--- NOTE | 2022-01-14 15:10 | PDOC.CMIN ---
- If Service Date Differs Date of service: 01/14/22 Time of Service: 15:10 Care Management Initial Assess REASON FOR HOSPITALIZATION:: weakness and shortnesss of breath PAST MEDICAL HISTORY/PAST SURGICAL HISTORY:: All Active Problems . Weakness (Acute). Hypoxemia (Acute). Pneumonia (Acute). Heart failure with reduced ejection fraction (Chronic). Pulmonary nodule (Acute). Nicotine dependence, cigarettes, uncomplicated (Chronic). Annual LDCT. Osteoarthritis of hips, bilateral (Chronic). Type 2 diabetes mellitus (Chronic). Chronic obstructive pulmonary disease (Chronic). 09/2021- O2 dependent on 2 l/min (O2 sat at 83% RA). Essential hypertension (Chronic). Diabetic nephropathy (Chronic). Diabetic retinopathy (Chronic). Ventral hernia (Chronic). Generalized anxiety disorder (Acute). GERD (gastroesophageal reflux disease) (Chronic). Medical History . Benign positional vertigo. Iron deficiency anemia. Migraine aura without headache. Surgical History . History of esophagogastroduodenoscopy (EGD) (07/30/18). S/P cholecystectomy. S/P colonoscopy (07/30/18). S/P tonsillectomy PREVIOUS FUNCTIONAL STATUS/SOCIAL/FAMILY SUPPORTS:: Beth lives alone with her cat Ayaan in an apartment in [facility]. She has 4 daughters and nine grandchildren and 6 great grandchildren. Only one daughter lives locally, the rest are out of state. Beth does not receive any community services. She has a Life Alert and is oxygen dependent on 2L. CURRENT FUNCTIONAL STATUS:: Beth was sitting up in a chair when ABUNDIO met with her. She was pleasant and agreeable to conversation. Beth had been a bit upset this morning as she was not sure what was going on with her medically. After a discussion with the nurse practitioner, she stated that she felt she understood much better that heart failure was her major medical problem at the moment, vs pneumonia or COPD. ABUNDIO received a call from Beth's daughter Keri, who is a nurse in [place]. She expressed concern about a conversation she overheard while talking to Beth on the phone. She felt that the staff member speaking was not speaking professionally to her mother. She wanted to convey that Beth is frightened and can be a little difficult when that happens, and asked that she be treated with patience and respect. Beth has been appropriate all day and engaged well with staff and CM. ADVANCE DIRECTIVES:: none on file Has patient been provided with info about the portal/API?: Yes Did the patient sign up for the portal?: Yes (previously) CODE STATUS:: Full Code INSURANCE COVERAGE / FINANCIAL ISSUES:: Medicare. Medicaid CURRENT HOME/COMMUNITY SERVICES/EQUIPMENT:: Beth has home oxygen at 2L/min PRIMARY CARE PHYSICIAN:: Katherine Andre POTENTIAL DISCHARGE NEEDS:: Follow up with PCP and plan of care PATIENT/FAMILY EDUCATION NEEDS:: Review of discharge instructions, limitations, follow up plan, medications, discuss Ask Me Three TRANSPORTATION:: via private vehicle with family PLAN:: Beth will likely be discharged home with new home health services for nursing and PT. She will folow up with her PCP and plan of care and transport with family. CM will continue to support Beth and assess for ongoing discharge needs.
--- NOTE | 2022-01-14 17:47 | CHAPLAIN ---
I visited Sujatha while she was having dinner. She said he family brought her Bible in and she's grateful to have it with her. Sujatha has attended an [employer] in the past, but it fell on it's face she said. Since then she's been looking for a m[employer]on. She was very pleasant and easily engaged in a conversation. I will continue to visit.
[2022-01-14] MEDS: Melatonin 3 MG TAB 6 MG PO (20:47)
[2022-01-15] VITALS (8 sets, daily range): BP systolic 117–152; BP diastolic 67–88; PULSE 85–96; RESP 12–20; TEMP 35.6–36.8; O2SAT 92–97
--- NOTE | 2022-01-15 | DI.MRI_ITS ---
Exam(s) MR ANGIO NECK WO CLINICAL HISTORY: left sided weakness. TECHNIQUE: MR angiography of the neck was performed without IV contrast using [id number] [employer] ue. CONTRAST MATERIAL: None COMPARISON: CT Brain performed earlier same date. FINDINGS: Images on this study are degraded by motion artifact. ANTERIOR CIRCULATION: The right common carotid artery ascends with relatively normal luminal diameter. There appears to be a significant stenosis the right carotid bulb proximal internal carotid artery, possibly exaggerated by motion. Above this level the right internal carotid artery is patent in the upper neck and carot id canal. Left common carotid artery also exhibits an element of atherosclerotic distally and there also appear s to be a possible significant stenosis at the proximal ICA. Significantly degraded by motion artifa ct above this level the left ICA is patent the upper neck skull base. POSTERIOR CIRCULATION: Both vertebral arteries originated conventional fashion off of subclavian radu humera both vertebral arteries exhibit normal luminal diameters in the foramen transverse area and both contribute to the formation of the basilar artery at skull base. There is no evidence of intralumin al filling defect nor dissection flap in the vertebral arteries. IMPRESSION: Study is significantly degraded by motion artifact. However, there does appear to be significant jose nosis at the proximal internal carotid arteries, more so on the right side. Further study with CT an giography can be performed. Also recommend Doppler imaging for velocities. DATA REPOSITORY:
--- NOTE | 2022-01-15 | DI.MRI_ITS ---
Exam(s) MR BRAIN WO EXAM: MR BRAIN WO CLINICAL HISTORY: left sided weakness TECHNIQUE: Multiplanar multisequence MRI of the brain was performed. COMPARISON: CT CT HEAD WO from 01/13/2022 FINDINGS: CEREBRAL PARENCHYMA: There is no evidence of intracranial hemorrhage, mass effect, or shift of midline structures. There are no extra-axial fluid collections. Ventricles are not enlarged or shifted. There is no significant focal signal abnormality in the cerebellar hemispheres nor within the amelia, m idbrain, and thalami. Abundant bilateral Rylie in supra ventricular white matter signal abnormality consistent with chronic small vessel disease. However, there is also a finding in the right periventricular white matter trish suring 1.3 x 1.3 cm which exhibits significant restricted diffusion on DWI, consistent with acute inf arct at this level. There are no other areas of similar finding in the brain. There is no hemorrhage at this location nor elsewhere in the brain. PITUITARY GLAND: No mass nor parasellar abnormality. No obvious abnormality in the cavernous sinuses. FLOW VOIDS: The expected flow void are noted. No evidence of obvious aneurysm nor obvious vascular ma lformation. PARANASAL SINUSES: The visualized paranasal sinuses appear unremarkable. No obvious finding ORBITS: No obvious findings. OTHER: Incidentally noted is a disc herniation at C3-4 level, seen on the lower most aspect of the sa gittal brain T2 brain sequence. IMPRESSION: There is a 13 x 13 millimeter focus of acute nonhemorrhagic ischemic infarct in the right periventric ular white matter. This is superimposed upon abundant bilateral chronic small-vessel white ischemic changes. This study sent as stat reading. DATA REPOSITORY:
--- NOTE | 2022-01-15 | DI.US_ITS ---
Exam(s) US CAROTID EXAM: US CAROTID CLINICAL HISTORY: left sided weakness. TECHNIQUE: Ultrasound carotids performed using grayscale, color-flow, and spectral Doppler imaging. COMPARISON: None FINDINGS: RIGHT CAROTID ARTERY: Plaque: There is plaque evident in the common carotid artery and proximal-mid ICA but no elevated lynne ocities therein to suggest stenosis greater than 50 percent. LEFT CAROTID ARTERY: Plaque: Some plaque is also evident on this side in the mid and distal left common carotid artery wit hout elevated velocities at this level. Plaque is also evident in the carotid bulb and proximal ICA. There is elevated peak systolic velocity of 188 cm/sec evident in the mid left ICA, indicating sten osis in the 50-69 percent range. Plaque is also seen in the proximal external carotid arteries. VERTEBRAL ARTERIES: Antegrade flow is demonstrated in both vertebral arteries. Measurements: R Bulb: PS / ED R CCA: PS / ED R ECA: PS / ED R ICA Prox: PS / ED R ICA Mid: PS / ED R ICA Distal: PS / ED R Vert: PS / ED R SVR: R DVR: L Bulb: PS / ED L CCA: PS / ED L ECA: PS / ED L ICA Prox: PS / ED L ICA Mid: PS / ED L ICA Distal: PS / ED L Vert: PS / ED L SVR: L DVR: IMPRESSION: There is plaque bilaterally in the common carotid arteries, carotid bulbs and proximal internal carot id arteries. Elevated velocity in the left side indicating moderate stenosis approximately 50-69 per cent. Lesser stenosis on the right side measuring less than 50 percent. Antegrade flow is demonstrated in both vertebral arteries. Criteria for Carotid Stenosis: Normal: ICA PSV <125 cm/s no plaque or intimal thickening is visible. <50% stenosis: ICA PSV <125 cm/s and plaque or intimal thickening is visible. 50-69% stenosis: ICA PSV is 125-250 cm/s and plaque is visible. >70% stenosis to near occlusion: ICA PSV >250 cm/s with visible plaque and luminal narrowing. DATA REPOSITORY:
--- NOTE | 2022-01-15 | DI.MRI_ITS ---
Exam(s) MR ANGIO BRAIN WO EXAM: MR ANGIO BRAIN WO CLINICAL HISTORY: left sided weakness TECHNIQUE: Multiplanar multisequence MRI of the brain was performed. Both noninfused and contrast i nfused sequences were performed. IV Contrast injected was cc Dotarem. COMPARISON: MR MR BRAIN WO from 01/15/2022 FINDINGS: This MRA study is somewhat degraded by motion artifact. ANTERIOR CIRCULATION: Both internal carotid arteries are patent in the skull base-carotid canals. Pa tent within the cavernous sinuses. A1 segments are patent. Anterior cerebral arteries are patent. There is no obvious aneurysm at the level of the anterior communicating artery. Middle cerebral arteries appear patent but are less than optimally study because of motion artifact.. POSTERIOR CIRCULATION: At the skull base both vertebral arteries contribute to the formation of the b asilar artery. The basilar artery is patent and ascends with normal luminal diameter. Distally give s off patent superior cerebellar arteries on both sides and above this level terminates as patent geoffrey ateral posterior cerebral arteries. There is no aneurysm of the tip of the basilar artery. IMPRESSION: 1. No evidence of obvious intracranial large vessel occlusion, tight stenosis, nor aneurysm, realized limitations of the study due to motion artifact. DATA REPOSITORY:
[2022-01-15] MEDS: Acetaminophen 500 MG TAB 1000 MG PO ×2 (00:41→08:45)
[2022-01-15 06:46] LABS: Abs Immature Grans 0.01 10^3/uL (0.0-0.06); Absolute Basophil Count 0.02 10^3/uL (0.0-0.2); Absolute Eosinophil Count 0.11 10^3/uL (0.0-0.7); Absolute Monocyte Count 0.88 10^3/uL (0.1-0.8); Absolute Neutrophil Count 5.37 10^3/uL (1.2-6.7); Basophils % 0.2; Eosinophils % 1.4; HCT 34.7 % (36.0-46.0); HGB 10.3 g/dL (11.2-15.7); Immature Grans % 0.1; MCH 26.9 pg (27.0-33.0); MCHC 29.7 % (32.0-36.0); MCV 90.6 fL (80-95); Monocytes % 10.9; Neutrophils % 66.4; Nucleated RBC 0 %; Platelet Count 226 10^3/uL (130-400); RBC 3.83 10^6/uL (3.93-5.22); RDW 13.8 % (11.7-14.6); RDW-SD 45.9 fL; WBC 8.09 10^3/uL (4.4-10.8)
[2022-01-15 07:15] LABS: Anion Gap 3.6 mmol/L (3-11); BUN 35 mg/dL (7-18); CO2 34.4 mmol/L (21.0-32.0); CREATININE 1.4 mg/dL (0.55-1.02); Calcium 10.1 mg/dL (8.5-10.1); Chloride 103 mmol/L (98-107); Estimated GFR 36.96 (mL/min/1.73m2); Glucose 112 mg/dL (74-106); NT-proBNP 12861 pg/mL (<300); Potassium 3.7 mmol/L (3.5-5.1); Sodium 141 mmol/L (136-145)
[2022-01-15] MEDS: Calcium Carbonate 1.5 GM TAB PO ×2 (08:44→20:49)
[2022-01-15] MEDS: Losartan 50 MG TAB 150 MG PO (08:44)
[2022-01-15] MEDS: Cholecalciferol (Vitamin D3) 1,000 UNIT TAB 1000 UNITS PO (08:45)
[2022-01-15] MEDS: Cetirizine 10 MG TAB PO (08:46)
[2022-01-15] MEDS: Omeprazole 20 MG CAPCR PO (08:46)
[2022-01-15] MEDS: amLODIPine 5 MG TAB PO (08:46)
[2022-01-15] MEDS: Normal Saline Flush 10 ML SYR IVP ×4 (08:47→15:12)
[2022-01-15] MEDS: predniSONE 10 MG TAB 15 MG PO (08:47)
[2022-01-15] MEDS: Furosemide 40 MG/4 ML VIAL IVP ×2 (08:51→15:11)
[2022-01-15] MEDS: Nystatin POWDER 60 GM JAR TP ×2 (08:57→20:50)
--- NOTE | 2022-01-15 09:15 | PDOC.CMPRO ---
- If Service Date Differs Date of service: 01/15/22 Time of Service: 09:15 Care Management Progress Note S/O:Beth was sitting up in a chair when CM met with her. She had had an MRI this morning and was determined to have had a CVA. She was pre-medicated for the procedure and was very sleepy at the time. She gradually became more interactive , especially when the provider came in to see her. The provider informed her of the results of the MRI and recommended that she begin treatment with a baby aspirin and a statin. The provider also ordered carotid studies and a 12 lead EKG. CM contacted Beth's daughter Lida and updated her with the new information, at Beth's request. The provider also informed Beth that she will require short term rehab before returning home. A: Beth is a 71 year old woman admitted on 01/13/22 with weakness and ataxia P:Beth will likely be transferred to a SNF for short term rehab prior to returning home. She will follow up with the facility provider and plan of care. Transportation will be determined by disposition. CM will continue to support Beth and her family and assess for ongoing discharge needs.
[2022-01-15] MEDS: LORazepam 2 MG/ML VIAL 0.5 MG IVP ×2 (10:16→11:46)
--- NOTE | 2022-01-15 11:04 | W.PM.PROGNOT ---
Date of Service Date of service: 01/15/22 Time of Service: 11:04 Assessment and Plan Assessment and plan (1) CVA (cerebral vascular accident): Status: Chronic Assessment and plan: with left sided weakness started on asa 81 mg, atorvastatin 40 mg add lipids, A1C better evaluate carotids, unable to get CTA neck d/t renal function so will get US. discussed with neurology. will follow continue PT/OT (2) Heart failure with reduced ejection fraction: Status: Chronic Assessment and plan: diuresing well, -1800 yesterday weight down creatinine stable, will continue to diurese. monitor kidney function, I&O, and weights Echo Mildly dilated left ventricle.? Normal left ventricular wall thickness.? Estimated ejection fraction is 35% with global hypokinesis The right ventricle is dilated and hypocontractile Both atria are moderately enlarged There is mild aortic valve sclerosis without stenosis or regurgitation Mild mitral annular calcification.? Moderate mitral regurgitation Normal tricuspid valve with mild regurgitation.? Estimated right ventricular systolic pressure is 44 mmHg (3) Weakness: Status: Acute Assessment and plan: left sided, will add MRI/MRA to evaluate for CVA continue PT/OT (4) Type 2 diabetes mellitus: Status: Chronic Assessment and plan: blood sugar controlled this am at 118 A1C 8.1 in Oct 2021 SSI, hold metform and glipizide (5) Chronic obstructive pulmonary disease: Status: Chronic Assessment and plan: Not exacerbated at this time Oxygen dependent Qualifiers: COPD type: emphysema Emphysema type: centrilobular Qualified Code(s): J43.2 - Centrilobular emphysema (6) Essential hypertension: Status: Chronic Assessment and plan: Continue home medications (7) Polymyalgia rheumatica: Status: Suspected Assessment and plan: continue home prednisone (8) GERD (gastroesophageal reflux disease): Status: Chronic Assessment and plan: continue omeprazole (9) DVT prophylaxis: Status: Acute Assessment and plan: enoxaparain sub cu (10) Discharge planning issues: Status: Acute Assessment and plan: Home when medically ready with services discussed with Dr Tobar Subjective Subjective Patient reports: afebrile; denies shortness of breath Interval history since last seen: continues to have left sided weakness, did not sleep well, c/o back pain PT noted that her left leg rosendo, and patient reports left hand and leg weakness which has been ongoing. Exam Const General: cooperative, comfortable and no acute distress Nutritional Appearance: average body habitus Orientation: alert, awake and oriented x3 HENMT Head: normal to inspection, normocephalic and atraumatic Eyes General: appearance normal, both eyes and all related structures Resp Effort & Inspection: normal respiratory effort Auscultation: clear to auscultation bilaterally Cardio Rate: regular rate Rhythm: regular rhythm GI Inspection: normal to inspection Palpation: soft Auscultation: normal bowel sounds Skin General skin exam: no rashes or lesions noted Neuro General: patient alert, patient awake, patient oriented x3, moves all extremities and focal motor deficits present Cranial Nerves: PERRL, no nystagmus, facial strength normal and tongue midline Cognition: normal cognition Speech: other (slurred speech) Gait: gait assisted Motor: strength abnormal (2-3/5 on left upper and lower, right 5/5) Objective Last Vital Signs Temp 36.8 C 01/15/22 07:59 Pulse 89 01/15/22 07:59 Resp 16 01/15/22 07:59 BP 147/88 H 01/15/22 07:59 Pulse Ox 96 01/15/22 07:59 Laboratory Results - last 24 hr 01/15/22 01/15/22 06:30 06:30 WBC 8.09 RBC 3.83 L Hgb 10.3 L Hct 34.7 L MCV 90.6 MCH 26.9 L MCHC 29.7 L RDW 13.8 Plt Count 226 MPV 10.0 Immature Gran % 0.1 Neutrophils % 66.4 Lymphocytes % 21.0 Monocytes % 10.9 Eosinophils % 1.4 Basophils % 0.2 Nucleated RBC % 0 Absolute Neutrophils 5.37 Absolute Lymphocytes 1.70 Absolute Monocytes 0.88 H Absolute Eosinophils 0.11 Absolute Basophils 0.02 Sodium 141 Potassium 3.7 Chloride 103 Carbon Dioxide 34.4 H Anion Gap 3.6 BUN 35 H Creatinine 1.4 H Estimated GFR/1.73 m2 36.96 Glucose 112 H Calcium 10.1 NT-Pro-B Natriuret Pep 99155 H
[2022-01-15] MEDS: Insulin Aspart 300 UNITS/3 ML PEN SC ×3 (12:33→21:52)
[2022-01-15] MEDS: Enoxaparin 40 MG/0.4 ML SYR SC (12:46)
--- NOTE | 2022-01-15 13:30 | RT.EKG_ITS ---
APPROVED REPORT Exam: Resting ECG Reason for Exam: Run of Elevate Patient Location: I HR:93 bpm ECG Measurements Heart Rate 93 AXIS NE 146 P 54 QRSd 95 QRS -7 QT 377 T 119 QTc 469 Conclusion Sinus rhythm...normal P axis, V-rate 50- 99 Probable left atrial enlargement...P >50mS, <-0.10mV V1 Anterior infarct, old...Q >40mS, abnormal ST-T, V2-V5
--- NOTE | 2022-01-15 13:39 | PT.INTREAT ---
Date of service: 01/15/22 Time of Service: 09:38 PT Notes Visit Reasons: Weakness,Ataxia Inpatient Physical Therapy Treatment Note [facility] Date: 01/15/2022 PRECAUTIONS: Activity as tolerated SUBJECTIVE: Beth reports that she is not feeling well today. She states that she has felt weak, specifically in the L UE and LE. OBJECTIVE: PAIN: No c/o pain BED MOBILITY/TRANSFERS Sit-stand: CGA Stand-sit: SBA GAIT Assistive Device: FWW Weight bearing: Full Assist: CGA Distance: 40' x2 in a.m.; 15' in p.m. Deviation: C/o B LE weakness L>R, L LE giving out, 3L O2 via NC TOILETING: Patient toileted with SBA for transfers ASSESSMENT: Patient tolerated session with complaint of increased fatigue and weakness. She was limited today due to left-sided weakness and fatigue. PLAN: Continue with global strengthening and gait training for improved activity tolerance. TREATMENT CODE/TIME: 10 minutes; 23282 (09:38) 15 minutes; 74135 (14:00)
[2022-01-15 15:07] LABS: Hemoglobin A1C 7.5 % (<5.7)
[2022-01-15] MEDS: Aspirin E.C. 81 MG TABEC PO (15:12)
[2022-01-15 17:36] LABS: Glucose 402 mg/dL (74-106)
[2022-01-15] MEDS: Atorvastatin 40 MG TAB PO (20:49)
[2022-01-15] MEDS: Melatonin 3 MG TAB 6 MG PO (21:50)
[2022-01-16] VITALS (12 sets, daily range): BP systolic 116–148; BP diastolic 65–82; PULSE 79–96; RESP 12–18; TEMP 35.5–36.6; O2SAT 96–99
[2022-01-16] MEDS: Acetaminophen 500 MG TAB 1000 MG PO ×4 (02:12→23:33)
[2022-01-16 08:05] LABS: Calculated LDL 61 mg/dL (<100); Cholesterol 142 mg/dL (<200); HDL Cholesterol 60 mg/dL (40-60); Triglyceride 105 mg/dL (<150)
[2022-01-16] MEDS: Cholecalciferol (Vitamin D3) 1,000 UNIT TAB 1000 UNITS PO (08:47)
[2022-01-16] MEDS: Aspirin E.C. 81 MG TABEC PO (08:47)
[2022-01-16] MEDS: Calcium Carbonate 1.5 GM TAB PO ×2 (08:48→21:29)
[2022-01-16] MEDS: Losartan 50 MG TAB 150 MG PO (08:48)
[2022-01-16] MEDS: amLODIPine 5 MG TAB PO (08:49)
[2022-01-16] MEDS: Omeprazole 20 MG CAPCR PO (08:49)
[2022-01-16] MEDS: predniSONE 10 MG TAB 15 MG PO (08:50)
[2022-01-16] MEDS: Cetirizine 10 MG TAB PO (08:50)
[2022-01-16] MEDS: Nystatin POWDER 60 GM JAR TP ×2 (08:53→21:30)
[2022-01-16] MEDS: Furosemide 40 MG/4 ML VIAL IVP (08:57)
[2022-01-16] MEDS: Normal Saline Flush 10 ML SYR IVP (08:57)
--- NOTE | 2022-01-16 10:06 | PDOC.CMPRO ---
- If Service Date Differs Date of service: 01/16/22 Time of Service: 10:06 Care Management Progress Note S/O:Beth was sitting up in a chair when CM met with her. She appeared to be in good spirits and engaged easily with CM in conversation. Beth worked well with PT today and a recommendation was made to consider an acute rehab hospital for Beth's post-hospital care. Referrals were sent to [facility] and [facility] in [place]. Beth's daughter Keri flew to [place] last night to see her mother. Beth was pleased to see her and CM was able to visit with her as well. Keri is a nurse and had information about Beth that was helpful. She indicted that Beth has been forgetful lately and is becoming weaker. Her diabetes is not well controlled and she has become less and less able to care for herself. Keri hired a friend to come in once a week and help with chores and personal care. CM and Keri discussed alternative living arrangements and CM provided her with an application for [place], since it is likely she will need placement at some point. A: Beth is a 71 year old woman admitted on 01/13/22 with weakness and ataxia P:Beth will likely be transferred to a SNF or acute rehab hospital for rehab prior to returning home. Alternative living arrangements may be necessary depending on her progress.She will follow up with the facility provider and plan of care. Transportation will be determined by disposition. CM will continue to support Beth and her family and assess for ongoing discharge needs.
[2022-01-16] MEDS: Insulin Aspart 300 UNITS/3 ML PEN SC ×3 (12:08→21:39)
[2022-01-16] MEDS: Enoxaparin 40 MG/0.4 ML SYR SC (12:09)
--- NOTE | 2022-01-16 12:17 | PT.INNT ---
Date of service: 01/16/22 Time of Service: 11:45 PT Notes Visit Reasons: Weakness,Ataxia 01/16/2022 Patient was not available x2 this morning for participation in PT. Will attempt to resume PT services later today.
--- NOTE | 2022-01-16 13:29 | W.PM.PROGNOT ---
Date of Service Date of service: 01/16/22 Time of Service: 13:29 Assessment and Plan Assessment and plan (1) CVA (cerebral vascular accident): Status: Chronic Assessment and plan: with left sided weakness continue asa 81 mg, atorvastatin 40 mg better evaluate carotids, unable to get CTA neck d/t renal function US obtained, left 50-69% stenosis, right less than 50% discussed with neurology. will follow continue PT/OT (2) Heart failure with reduced ejection fraction: Status: Chronic Assessment and plan: appears euvolemic, will stop IV lasix and resume home oral dosing weight down creatinine stable, bun up to 35 from 30. monitor kidney function, I&O, and weights Echo Mildly dilated left ventricle.? Normal left ventricular wall thickness.? Estimated ejection fraction is 35% with global hypokinesis The right ventricle is dilated and hypocontractile Both atria are moderately enlarged There is mild aortic valve sclerosis without stenosis or regurgitation Mild mitral annular calcification.? Moderate mitral regurgitation Normal tricuspid valve with mild regurgitation.? Estimated right ventricular systolic pressure is 44 mmHg (3) Weakness: Status: Acute Assessment and plan: d/t acute CVA, see above continue PT/OT (4) Type 2 diabetes mellitus: Status: Chronic Assessment and plan: blood sugar better controlled on increased insulin scale A1C 8.1 in Oct 2021 now at 7.5 continue SSI, continue to hold metformin and glipizide add lantus in am if continues to be uncontrolled. (5) Chronic obstructive pulmonary disease: Status: Chronic Assessment and plan: Not exacerbated at this time Oxygen dependent Qualifiers: COPD type: emphysema Emphysema type: centrilobular Qualified Code(s): J43.2 - Centrilobular emphysema (6) Essential hypertension: Status: Chronic Assessment and plan: Continue home medications (7) Polymyalgia rheumatica: Status: Suspected Assessment and plan: continue home prednisone (8) GERD (gastroesophageal reflux disease): Status: Chronic Assessment and plan: continue omeprazole (9) DVT prophylaxis: Status: Acute Assessment and plan: enoxaparain sub cu (10) Discharge planning issues: Status: Acute Assessment and plan: anticipate a discharge to rehab prior to returning home. would benefit from acute rehab. case management following and referrals placed. discussed with Dr Tobar Subjective Subjective Patient reports: no new complaints, feels better, tolerating liquids well, tolerating a regular diet, voiding w/o difficulty and afebrile; denies shortness of breath Exam Const General: cooperative, comfortable and no acute distress Nutritional Appearance: average body habitus Orientation: alert, awake and oriented x3 HENMT Head: normal to inspection, normocephalic and atraumatic Eyes General: appearance normal, both eyes and all related structures Resp Effort & Inspection: normal respiratory effort Auscultation: clear to auscultation bilaterally Cardio Rate: regular rate Rhythm: regular rhythm GI Inspection: normal to inspection Palpation: soft Auscultation: normal bowel sounds Skin General skin exam: no rashes or lesions noted Neuro General: patient alert, patient awake, patient oriented x3, moves all extremities and focal motor deficits present Cranial Nerves: PERRL, no nystagmus, facial strength normal and tongue midline Cognition: normal cognition Speech: speech normal Gait: gait assisted Motor: strength abnormal (4/5 on left upper and 3/5 left lower, right 5/5) Sensory Exam: no sensory deficits noted Extrem General: no pedal edema Objective Last Vital Signs Temp 36.6 C 01/16/22 11:51 Pulse 95 H 01/16/22 11:51 Resp 16 01/16/22 11:51 BP 145/79 H 01/16/22 11:51 Pulse Ox 97 01/16/22 11:51 Laboratory Results - last 24 hr 01/15/22 01/15/22 01/16/22 06:30 15:10 07:10 Glucose 402 H D Hemoglobin A1c 7.5 H Triglycerides 105 Total Cholesterol 142 LDL Cholesterol, Calc 61 HDL Cholesterol 60
--- NOTE | 2022-01-16 14:10 | PT.INTREAT ---
Date of service: 01/16/22 Time of Service: 13:32 PT Notes Visit Reasons: Weakness,Ataxia Inpatient Physical Therapy Treatment Note [facility] Date: 01/16/2022 PRECAUTIONS: Activity as tolerated, L-sided weakness SUBJECTIVE: Beth reports that she continues to feel weak, specifically in the L UE and LE. She states that she will not be able to manage independently at home and is requesting rehab placement. She is interested in acute rehab, with the understanding that she will need to participate in an intensive rehab program. She would like to get stronger and return to home when she is safe. OBJECTIVE: PAIN: No c/o pain BED MOBILITY/TRANSFERS Sit-stand: CGA Stand-sit: CGA GAIT Assistive Device: FWW Weight bearing: Full Assist: CGA - Min A Distance: 15' + 40' Deviation: C/o B LE weakness L>R, 3L O2 via NC, Min A with FWW management for safety THEREX: Patient was instructed in a resisted UE and LE strengthening program, completed in a seated position at EOB, as per flow sheet. Patient demontrates global weakness, although L>R, requiring assist for exercise completion due to weakness. TOILETING: Patient toileted with CGA for transfers ASSESSMENT: Patient tolerated session with complaint of increased fatigue and weakness. She demonstrates increased weakness in L UE and LE compared to previous sessions. PLAN: Continue with global strengthening and gait training for improved activity tolerance. TREATMENT CODE/TIME: 32 minutes; 53213, 10472 (13:32)
[2022-01-16] MEDS: Atorvastatin 40 MG TAB PO (21:29)
[2022-01-16] MEDS: Melatonin 3 MG TAB 6 MG PO (23:38)
[2022-01-17] VITALS (8 sets, daily range): BP systolic 121–135; BP diastolic 68–81; PULSE 82–104; RESP 18–20; TEMP 36–36.8; O2SAT 90–95
[2022-01-17 06:50] LABS: Anion Gap 5.5 mmol/L (3-11); BUN 42 mg/dL (7-18); CO2 35.5 mmol/L (21.0-32.0); CREATININE 1.4 mg/dL (0.55-1.02); Calcium 9.7 mg/dL (8.5-10.1); Chloride 99 mmol/L (98-107); Estimated GFR 36.96 (mL/min/1.73m2); Glucose 104 mg/dL (74-106); Potassium 3.6 mmol/L (3.5-5.1); Sodium 140 mmol/L (136-145)
[2022-01-17] MEDS: Calcium Carbonate 1.5 GM TAB PO ×2 (08:09→19:04)
[2022-01-17] MEDS: Losartan 50 MG TAB 150 MG PO (08:09)
[2022-01-17] MEDS: Cholecalciferol (Vitamin D3) 1,000 UNIT TAB 1000 UNITS PO (08:09)
[2022-01-17] MEDS: Acetaminophen 500 MG TAB 1000 MG PO (08:10)
[2022-01-17] MEDS: Furosemide 40 MG TAB PO (08:12)
[2022-01-17] MEDS: Omeprazole 20 MG CAPCR PO (08:12)
[2022-01-17] MEDS: Aspirin E.C. 81 MG TABEC PO (08:12)
[2022-01-17] MEDS: Cetirizine 10 MG TAB PO (08:12)
[2022-01-17] MEDS: amLODIPine 5 MG TAB PO (08:12)
[2022-01-17] MEDS: predniSONE 10 MG TAB 15 MG PO (08:13)
[2022-01-17] MEDS: Normal Saline Flush 10 ML SYR IVP ×2 (08:15→19:04)
[2022-01-17] MEDS: Nystatin POWDER 60 GM JAR TP ×2 (09:00→19:05)
--- NOTE | 2022-01-17 09:58 | OTIE_ITS ---
Occupational Therapy Notes Inpatient Occupational Therapy Evaluation Date: 01/17/22 Referring Doctor:Lynnette Sandra NP OT Orders:CVA, (L) UE Precautions: Fall, standrard, Full PATIENT PROFILE/ADMITTING DIAGNOSIS: Pt is a 71 year old female who reports that she was sitting at home and continued to drop items in her (L) hand. She noted that it continued to get worse. She went to get up out of her chair and go to the bathroom and was unable to do so. She presented to the ED and was admitted being dx with CVA, weakness, hypoxemia, pneumonia, heart failure with reduced ejection fraction. Past Medical History: All Active Problems? Weakness (Acute) Hypoxemia (Acute) Pneumonia (Acute) Heart failure with reduced ejection fraction (Chronic) Pulmonary nodule (Acute) Nicotine dependence, cigarettes, uncomplicated (Chronic) Annual LDCTOsteoarthritis of hips, bilateral (Chronic) Type 2 diabetes mellitus (Chronic) Chronic obstructive pulmonary disease (Chronic) 09/2021- O2 dependent on 2 l/min (O2 sat at 83% RA)Essential hypertension (Chronic) Diabetic nephropathy (Chronic) Diabetic retinopathy (Chronic) Ventral hernia (Chronic) Generalized anxiety disorder (Acute) GERD (gastroesophageal reflux disease) (Chronic) Medical History? Benign positional vertigo Iron deficiency anemia Migraine aura without headache Surgical History? History of esophagogastroduodenoscopy (EGD) (07/30/18) S/P cholecystectomy S/P colonoscopy (07/30/18) S/P tonsillectomy Social History/Home Situation: Pt lives alone at the [facility] locally with 2 steps to enter.? She stays on the main floor for all of her ADLs/IADLs.? She reports that the washer/dryer area is about 100 feet from her apartment.?Pt states that at her baseline she is (I) with her ADLs but believes that she will need to go to SNF at this time as she requires (A) and cannot perform everything (I). SUBJECTIVE: Pt was sitting in chair when OT arrived. She is agreeable to OT session and notes that she is weak and tired. OBJECTIVE: General Observation: Pleasant, decreased ROM of (L) shoulder, IV in (R) UE Mental Status: A&Ox3 Pain: c/o of pain in (L) shoulder with ROM into shoulder flexion and forearm ROM: RUE AROM WFL L UE Shoulder flexion to 80*, wrist extension WNL, elbow WNL with decreased coordination STRENGTH: RUE 3+/5 LUE 2-/5 (R) hand dominant. OT educated pt in home program and functional use of her (L) UE which can be found noted on pts board in her room. FUNCTIONAL MOBILITY/ADLS: BATHING NT however OT assessed pts functional ROM For performance and pt is able to cross her midline, she will need (A) due to lack of strength and coordination due to fatigue in (L) UE. DRESSING sitting in chair Dressing UE Max (A) [facility] gown, OT and pt went over in first out last technique and use of (L) UE with performance of task Dressing LE Max (A) GROOMING OT assessed pts functional ROM to performance this which she can perform with her (R) UE for brushing hair. Her (L) UE lacks coordination and muscle movement patterns. TOILETING NT EATING NT BALANCE: Static sitting Good Dynamic Sitting Fair-Good SPECIAL TESTS: Daily Activity Limitations Standardized Measure [facility] AM -PAC ?6 clicks? Daily Activity Inpatient Short Form: Raw score: 17 Standardized score: 37.26 CMS score: 50.11% INFORMED CONSENT/EDUCATION: Pt instructed in purpose of OT Consult and plan of care. ASSESSMENT: Patient is a []-year-old [] referred to occupational therapy services with diagnosis of []. Patient presents with clinical signs and symptoms consistent with [], as demonstrated by the following impairment level findings/functional limitations: Impairments in ADL/IADL and leisure activities, decreased gross and fine motor control of (L) UE/LE, decreased functional mobility required for performance of ADLs, decreased strength in (L) UE, decreased functional activity tolerance, increased fatigue, decreased coordination, decreased task initiation. [facility] score 17 Patient is assessed as a high 89485 complexity based on the following: History: see above Examination: see functional limitations Presentation: evolving Decision Making: [facility] 17 GOALS Goals x1 week 1. Grooming pt will require mod (A) for brushing her teeth with (B) hand use 2. Dressing sitting in chair pt will be mod (A) with donning shirt and mod (A) for donning pants/socks 3. Bathing sitting in chair with max (A) set up/clean up (I) face, min (A) (B) UE, mod (A) radha area, mod (A) (B) LE 4. Toileting on commode mod (A) 5. Eating (I) PLAN OF CARE/TREATMENT PLAN: 1x/day, 5 days/ week x 1week Initiate Occupational Therapy Services for bathing, dressing, grooming, toileting, eating, transfer training. DISCHARGE RECOMMENDATIONS OT recommends that pt go to [facility] vs. [facility] for continued rehabilitative care post CVA for (L) UE/LE. TREATMENT TIME/MINUTES/CODES 46061, 84949, 30 minutes (09:30) Milla Monet OTR/[facility]
--- NOTE | 2022-01-17 11:09 | PT.INTREAT ---
Date of service: 01/17/22 Time of Service: 10:07 PT Notes Visit Reasons: Weakness,Ataxia Inpatient Physical Therapy Treatment Note [facility] Date: 01/17/2022 PRECAUTIONS: Fall, WBAT L, Activity as tolerated SUBJECTIVE: Beth states that she feels tired today, she did not sleep well and has been having some back pain this morning. She also states that she continues to feel very weak on her left side, but also globally. OBJECTIVE: PAIN: Patient c/o back pain BED MOBILITY/TRANSFERS Sit-stand: Mod A Stand-sit: Min A with verbal cueing for safety GAIT Assistive Device: FWW Weight bearing: WBAT L Assist: Min A Distance: 10' Deviation: L LE weakness, assist with FWW management due to L UE weakness, increased fatigue THEREX: Patient was instructed in a resisted UE and LE strengthening program, completed in a seated position. She utilizing 2# ankle weight and 1# dumbbell for exercise completion. She requires assist with all exercises on left side due to significant weakness. ASSESSMENT: Patient continues to demonstrate increasing weakness L>R. She is now requiring assist for transfers and tolerates limited gait distance. PLAN: Continue with global strengthening and mobility training, as tolerated. TREATMENT CODE/TIME: 24 minutes; 93542, 69480 (10:07)
[2022-01-17] MEDS: Insulin Aspart 300 UNITS/3 ML PEN SC ×4 (12:04→21:30)
[2022-01-17] MEDS: Enoxaparin 40 MG/0.4 ML SYR SC (12:05)
--- NOTE | 2022-01-17 14:03 | CMPROGNOTE_ITS ---
- If Service Date Differs Date of service: 01/17/22 Time of Service: 14:03 Care Management Progress Note S/O:Beth was sitting up in a chair when CM met with her. She was in good spirits and engaged easily with CM. Her daughters were visiting at the time and joined in the conversation. CM assisted Beth with the completion of advanced directives and copied and filed them with the [facility] . Referrals had been sent to several acute rehab facilities in the area on Thursday. [facility] is reviewing her case and asked for more clinical information. [facility] declined as they have no beds. ABUNDIO has not received a response from [facility] in [place] yet but will follow up next week. Beth shared that she feels she is doing much better. She indicated that she felt PT went well today and is looking forward to rehab. A: Beth is a 71 year old woman admitted on 01/13/22 with weakness and ataxia P:Beth will likely be transferred to a SNF or acute rehab hospital for rehab prior to returning home. Alternative living arrangements may be necessary depending on her progress.She will follow up with the facility provider and plan of care. Transportation will be determined by disposition. CM will continue to support Beth and her family and assess for ongoing discharge needs.
--- NOTE | 2022-01-17 14:59 | PGE_ITS ---
Date of Service Date of service: 01/17/22 Time of Service: 15:00 Assessment and Plan Assessment and plan (1) CVA (cerebral vascular accident): Status: Chronic Assessment and plan: Left-sided weakness is improving continue asa 81 mg, increase atorvastatin 80 mg Carotid US obtained, left 50-69% stenosis, right less than 50% continue PT/OT, referrals made [facility] [place] [facility] as well as other area SNF (2) Heart failure with reduced ejection fraction: Status: Chronic Assessment and plan: cont. oral loop diuretic, changed lasix to torsemide for more reliable GI absorption; added Jardiance for CHF and DM control. changed high dose losartan to Entresto. Echo Mildly dilated left ventricle.? Normal left ventricular wall thickness.? Estimated ejection fraction is 35% with global hypokinesis The right ventricle is dilated and hypocontractile Both atria are moderately enlarged There is mild aortic valve sclerosis without stenosis or regurgitation Mild mitral annular calcification.? Moderate mitral regurgitation Normal tricuspid valve with mild regurgitation.? Estimated right ventricular systolic pressure is 44 mmHg (3) Weakness: Status: Acute Assessment and plan: d/t acute CVA, see above continue PT/OT (4) Type 2 diabetes mellitus: Status: Chronic Assessment and plan: changed insulin resistant scale to insulin sensitive scale as she had low glucose this morning of 104. Will add NPH in the a.m. as her glucose tend to be high during the day and particularly after her morning prednisone. Will add carb coverage to reduce her post prandial spike in her glucose A1C 8.1 in Oct 2021 now at 7.5 continue SSI, continue to hold metformin and glipizide. (5) Chronic obstructive pulmonary disease: Status: Chronic Assessment and plan: Not exacerbated at this time Oxygen dependent Qualifiers: COPD type: emphysema Emphysema type: centrilobular Qualified Code(s): J43.2 - Centrilobular emphysema (6) Essential hypertension: Status: Chronic Assessment and plan: home meds changed as noted above under discussion for cardiomyopathy (7) Polymyalgia rheumatica: Status: Suspected Assessment and plan: continue home prednisone (8) GERD (gastroesophageal reflux disease): Status: Chronic Assessment and plan: continue omeprazole (9) DVT prophylaxis: Status: Acute Assessment and plan: enoxaparain sub cu (10) Discharge planning issues: Status: Acute Assessment and plan: anticipate a discharge to rehab prior to returning home. would benefit from acute rehab. case management following and referrals placed. Subjective Subjective Interval history since last seen: Mrs. Pratt was seen while she was participating in physical therapy. She ambulated in the hallway with use of a front wheeled walker with standby assistance of physical therapist. She is showing improvement in her left-sided hemiparesis. She is now able to pick her left foot up rather than dragging it. And she is having much better movement and strength in her left hand and arm. After she returned to the room I spent some time talking with her and 2 of her daughters including her daughter Keri who is a nurse from [place]. I reviewed the results of her recent echocardiogram and explained that she has moderately severe LV dysfunction and that I am adjusting her medications to treat her heart failure in addition to treating her stroke. I told him that I have increased her atorvastatin to high-dose atorvastatin which she should remain on in the immediate period following a stroke. This is also for treatment of her carotid atherosclerotic disease. She should remain on aspirin 81 mg daily and then for her heart failure I started on Jardiance which should help with her blood sugars as well as her heart failure and I switched her high-dose losartan to Entresto. With respect to her diuretic Switch her furosemide to torsemide which has better GI absorption and more predictable diuretic response. Beth denies any shortness of breath or chest pain or headache. Left hand clumsiness is improved and she has better use of her left hand. She is able to hold onto her walker and steady her gait. She and her daughters know that we are working on placement in a [place] [facility] facility for rehabilitation and that the porter sample case is made referrals to [facility]. Exam Narrative Exam Narrative: Elderly female walking down the hallway with the use of front wheel walker. She has a gait belt around her waist and the physical therapist is standing by holding onto her to make sure she does not lose her balance but the patient is ambulating totally under her own power with use of front wheeled walker. Patient is alert and oriented person place time circumstance. Lungs are clear to auscultation Heart is regular rate and rhythm with a soft systolic murmur over the apex Neuro exam her speech is clear no dysarthric speech no facial asymmetry full extraocular motion intact. Motor exam left hand and arm has 4 out of 5 strength. Left leg and foot 3+ to 4 still with some weakness in dorsiflexion of the left foot. She is able to lift the leg up but against gravity and give me some light resistance. Sensory she is able to feel me stroke her left hand and arm. Objective Last Vital Signs Temp 36.2 C L 01/17/22 11:56 Pulse 104 H 01/17/22 11:56 Resp 18 01/17/22 11:56 BP 122/68 01/17/22 11:56 Pulse Ox 90 L 01/17/22 11:56 Laboratory Results - last 24 hr 01/17/22 05:57 Sodium 140 Potassium 3.6 Chloride 99 Carbon Dioxide 35.5 H Anion Gap 5.5 BUN 42 H Creatinine 1.4 H Estimated GFR/1.73 m2 36.96 Glucose 104 D Calcium 9.7
--- NOTE | 2022-01-17 15:16 | PT.INTREAT ---
Date of service: 01/17/22 Time of Service: 15:16 PT Notes Visit Reasons: Weakness,Ataxia Inpatient Physical Therapy Treatment Note [facility] Date: 01/17/2022 PRECAUTIONS: Fall. Activity as tolerated. SUBJECTIVE: Happy to have her nurse daughter Ailyn visit with her and be involved with her care. Patient agreeable to walk [facility] PT and daughter volunteered to provide wheelchair follow. Dropped eyegalsses with L hand while attempting to pick them up. OBJECTIVE: ? PAIN: Denies BED MOBILITY/TRANSFERS? Sit-stand: Contact guard assist? Stand-sit: Contact guard assist? ? Chair to toilet seat: Contact guard assist ? Toilet seat to chair: Contact guard assist? GAIT? Assistive Device: FWW? Weight bearing: WBAT L Assist: Contact guard assist ? Distance:? 75 feet + 15 feet + 10 feet ? Deviation: Increasing DF on the L, weak abu functional gin operator on L walker handle, mild foot slap seen ? ASSESSMENT:?L hand dexterity impaired. Activity tolerance improving. Mobility independence improving. DISCHARGE RECOMMENDATIONS: [] Home with no services [] [] Home with services [specify] [] Home with outpatient PT [] [] SNF for continued rehabilitation [] [] [facility] [employer] [facility] [] [] SNF versus LTC based on ability to participate and progress [] [X] Acute stroke rehabilitation for management of decreased hand dexterity on L and for functional mobility progression. TREATMENT CODE/TIME: 18135 x 34 minutes beginning at 15:16 PM.
[2022-01-17] MEDS: Sacubitril/Valsartan 24 mg/26 mg TAB 1 EACH PO (19:04)
[2022-01-17] MEDS: Atorvastatin 40 MG TAB 80 MG PO (19:04)
[2022-01-17] MEDS: Zolpidem 5 MG TAB PO (21:30)
[2022-01-18] VITALS (8 sets, daily range): BP systolic 112–135; BP diastolic 61–79; PULSE 78–100; RESP 16–21; TEMP 35.9–36.6; O2SAT 92–99
[2022-01-18] MEDS: Normal Saline Flush 10 ML SYR IVP ×2 (05:19→08:07)
[2022-01-18] MEDS: Acetaminophen 500 MG TAB 1000 MG PO ×3 (05:28→15:26)
[2022-01-18 07:40] LABS: HGB 10.7 g/dL (11.2-15.7); MCH 27.1 pg (27.0-33.0); MCHC 29.7 % (32.0-36.0); MCV 91.1 fL (80-95); MPV 10.3 fL (8.0-11.0); Platelet Count 237 10^3/uL (130-400); RBC 3.95 10^6/uL (3.93-5.22); RDW 13.6 % (11.7-14.6); RDW-SD 46.2 fL; WBC 10.69 10^3/uL (4.4-10.8)
[2022-01-18] MEDS: Aspirin E.C. 81 MG TABEC PO (08:00)
[2022-01-18] MEDS: Cholecalciferol (Vitamin D3) 1,000 UNIT TAB 1000 UNITS PO (08:00)
[2022-01-18] MEDS: Calcium Carbonate 1.5 GM TAB PO ×2 (08:00→21:23)
[2022-01-18] MEDS: Sacubitril/Valsartan 24 mg/26 mg TAB 1 EACH PO ×2 (08:00→21:23)
[2022-01-18] MEDS: predniSONE 10 MG TAB 15 MG PO (08:01)
[2022-01-18] MEDS: Torsemide 20 MG TAB PO (08:03)
[2022-01-18] MEDS: Omeprazole 20 MG CAPCR PO (08:03)
[2022-01-18] MEDS: Cetirizine 10 MG TAB PO (08:03)
[2022-01-18] MEDS: Empaglifozin 10 MG TAB PO (08:03)
[2022-01-18] MEDS: amLODIPine 5 MG TAB PO (08:03)
[2022-01-18] MEDS: Insulin Aspart 300 UNITS/3 ML PEN SC ×7 (08:04→21:24)
[2022-01-18] MEDS: Insulin NPH-Human 300 UNITS/3 ML PEN 8 UNIT SC (08:04)
[2022-01-18] MEDS: Nystatin POWDER 60 GM JAR TP ×2 (08:06→21:26)
--- NOTE | 2022-01-18 10:22 | W.PM.PROGNOT ---
Date of Service Date of service: 01/18/22 Time of Service: 10:25 Assessment and Plan Assessment and plan (1) CVA (cerebral vascular accident): Status: Chronic Assessment and plan: Left-sided weakness is improving continue asa 81 mg, increase atorvastatin 80 mg continue PT/OT, referrals for Acute rehab: acceptance pending (2) Heart failure with reduced ejection fraction: Status: Chronic Assessment and plan: continue torsemide,Entresto, and Jardiance for CHF and DM control. Echo completed 01/13/22 (3) Weakness: Status: Acute Assessment and plan: d/t acute CVA, see above continue PT/OT (4) Type 2 diabetes mellitus: Status: Chronic Assessment and plan: Blood glucose levels 273 to 341 in the past 24 hours changed insulin sensitive scale to insulin moderate scale as glucose this morning was 279. Will continue NPH in the a.m. as her glucose tend to be high during the day and particularly after her morning prednisone. Will coninue carb coverage to reduce her post prandial spike in her glucose A1C 8.1 in Oct 2021 now at 7.5 continue SSI, continue to hold metformin and glipizide. (5) Chronic obstructive pulmonary disease: Status: Chronic Assessment and plan: Not exacerbated at this time Oxygen dependent Qualifiers: COPD type: emphysema Emphysema type: centrilobular Qualified Code(s): J43.2 - Centrilobular emphysema (6) Essential hypertension: Status: Chronic Assessment and plan: Continue home meds changed as noted above under discussion for cardiomyopathy (7) Polymyalgia rheumatica: Status: Suspected Assessment and plan: continue home prednisone (8) GERD (gastroesophageal reflux disease): Status: Chronic Assessment and plan: continue omeprazole (9) DVT prophylaxis: Status: Acute Assessment and plan: enoxaparain sub cu (10) Discharge planning issues: Status: Acute Assessment and plan: anticipate a discharge to rehab prior to returning home. would benefit from acute rehab. case management following and referrals placed. (11) Acute insomnia: Status: Acute Assessment and plan: Changing Zolpidem for melatonin, as patient is experiencing residual effects (drowsiness and tiredness) this morning. Subjective Subjective Interval history since last seen: Subjective Patient reports:?afebrile; denies shortness of breath, c/o tiredness Interval history since last seen: continues to have left sided weakness, did not sleep well. Pt verbalized that she would like to take a nap but unable to because of phone calls and nursing care. PT noted that her left leg/ knee cannot push-up against hand this AM, and patient reports left hand and leg weakness which has been ongoing. Exam Narrative Exam Narrative: General:?cooperative, comfortable and no acute distress Nutritional Appearance:?average body habitus Orientation:?alert, awake and oriented x3, drowsy Const General: cooperative, comfortable and no acute distress Nutritional Appearance: average body habitus Orientation: alert, awake and oriented x3 HENMT Head: normal to inspection, normocephalic and atraumatic Eyes General: appearance normal, both eyes and all related structures Neck Other: No swelling noted, aligned. Chest Other: symmetrical bilateral expansion Resp Effort & Inspection: normal respiratory effort Auscultation: clear to auscultation bilaterally and diminished lung sounds on the right in the lower lung ramirez Cardio Rate: regular rate Rhythm: regular rhythm (Sinus rhythm,95 HR) GI Inspection: normal to inspection Palpation: soft Auscultation: normal bowel sounds Other: Voiding QS Skin General skin exam: no rashes or lesions noted Neuro General: patient alert, patient awake, patient oriented x3, moves all extremities and focal motor deficits present Cranial Nerves: PERRL, accommodation normal, no nystagmus, facial strength normal and tongue midline Cognition: normal cognition Speech: speech normal Gait: gait assisted Motor: strength abnormal (4/5 on left upper and 3/5 left lower, right 5/5) Sensory Exam: no sensory deficits noted Extrem General: no pedal edema Objective Last Vital Signs Temp 96.6 F L 01/18/22 06:20 Pulse 78 01/18/22 07:00 Resp 21 01/18/22 06:20 BP 128/78 01/18/22 06:20 Pulse Ox 92 01/18/22 06:20 Laboratory Results - last 24 hr 01/18/22 06:55 WBC 10.69 RBC 3.95 Hgb 10.7 L Hct 36.0 MCV 91.1 MCH 27.1 MCHC 29.7 L RDW 13.6 Plt Count 237 MPV 10.3
--- NOTE | 2022-01-18 10:47 | PT.INTREAT ---
PT Notes Visit Reasons: Weakness,Ataxia 01/18/2022 SUBJECTIVE: Feeling very fatigued today. Does not want to do much today. Does need to go to the bathroom. OBJECTIVE: TRANSFERS Sit to stand: CGA Stand to sit: CGA Sit to supine: Min A GAIT Device: FWW Weight bearing: Full Assist: CGA Distance: 5'x2 THEREX: Defer ASSESSMENT: Is fatigued this AM. Does not want to ambulate farther than commode to bed. No LOB for short distance. Requires min A to get into the bed. PLAn: Continue to progress functional ambulation as she tolerates. Treatment time: [id number] Emelyn Cheung PTA Clinic location: [facility] [place], [place]
[2022-01-18] MEDS: Enoxaparin 40 MG/0.4 ML SYR SC (12:09)
--- NOTE | 2022-01-18 12:27 | W.PM.PROGNOT ---
Objective Last Vital Signs Temp 97.5 F L 01/18/22 10:49 Pulse 100 H 01/18/22 10:49 Resp 19 01/18/22 10:49 BP 135/79 01/18/22 10:49 Pulse Ox 93 01/18/22 10:49 Laboratory Results - last 24 hr 01/18/22 06:55 WBC 10.69 RBC 3.95 Hgb 10.7 L Hct 36.0 MCV 91.1 MCH 27.1 MCHC 29.7 L RDW 13.6 Plt Count 237 MPV 10.3
[2022-01-18 16:59] LABS: Glucose 445 mg/dL (74-106)
[2022-01-18] MEDS: metFORMIN 500 MG TAB 1000 MG PO (17:35)
[2022-01-18] MEDS: Melatonin 3 MG TAB PO (21:23)
[2022-01-18] MEDS: Atorvastatin 40 MG TAB 80 MG PO (21:23)
[2022-01-19] VITALS (11 sets, daily range): BP systolic 106–149; BP diastolic 62–80; PULSE 59–87; RESP 15–18; TEMP 36.4–37; O2SAT 94–99
[2022-01-19] MEDS: Acetaminophen 500 MG TAB 1000 MG PO ×3 (01:27→22:13)
[2022-01-19] MEDS: Cetirizine 10 MG TAB PO (07:57)
[2022-01-19] MEDS: Aspirin E.C. 81 MG TABEC PO (07:57)
[2022-01-19] MEDS: Omeprazole 20 MG CAPCR PO (07:57)
[2022-01-19] MEDS: Calcium Carbonate 1.5 GM TAB PO ×2 (07:57→19:57)
[2022-01-19] MEDS: Sacubitril/Valsartan 24 mg/26 mg TAB 1 EACH PO ×2 (07:57→19:57)
[2022-01-19] MEDS: amLODIPine 5 MG TAB PO (07:57)
[2022-01-19] MEDS: predniSONE 10 MG TAB 15 MG PO (07:57)
[2022-01-19] MEDS: Empaglifozin 10 MG TAB PO (07:57)
[2022-01-19] MEDS: Cholecalciferol (Vitamin D3) 1,000 UNIT TAB 1000 UNITS PO (07:57)
[2022-01-19] MEDS: glipiZIDE 5 MG TAB PO (07:57)
[2022-01-19] MEDS: Torsemide 20 MG TAB PO (07:57)
[2022-01-19] MEDS: metFORMIN 500 MG TAB 1000 MG PO ×2 (07:58→16:50)
[2022-01-19] MEDS: Nystatin POWDER 60 GM JAR TP ×2 (08:06→19:58)
[2022-01-19] MEDS: Insulin Aspart 300 UNITS/3 ML PEN SC ×7 (08:21→22:13)
[2022-01-19] MEDS: Insulin NPH-Human 300 UNITS/3 ML PEN 8 UNIT SC (08:21)
--- NOTE | 2022-01-19 09:24 | PGE_ITS ---
Date of Service Date of service: 01/19/22 Time of Service: 09:29 Assessment and Plan Assessment and plan (1) CVA (cerebral vascular accident): Status: Chronic Assessment and plan: Left-sided weakness is improving continue asa 81 mg, increase atorvastatin 80 mg continue PT/OT, referrals for Acute rehab: acceptance pending (2) Heart failure with reduced ejection fraction: Status: Chronic Assessment and plan: continue torsemide,Entresto, and Jardiance for CHF and DM control. Echo completed 01/13/22 (3) Weakness: Status: Acute Assessment and plan: d/t acute CVA, see above continue PT/OT (4) Type 2 diabetes mellitus: Status: Chronic Assessment and plan: Blood glucose levels 164 to 445 in the past 24 hours Patient is on insulin moderate scale as of 01/18, metformin restarted 01/18 PM and glipizide to restart this AM. Will continue to trend blood sugars. Will continue NPH in the a.m. as her glucose tend to be high during the day and particularly after her morning prednisone. Will coninue carb coverage to reduce her post prandial spike in her glucose A1C 8.1 in Oct 2021 now at 7.5 continue SSI (5) Chronic obstructive pulmonary disease: Status: Chronic Assessment and plan: Not exacerbated at this time Oxygen dependent Qualifiers: COPD type: emphysema Emphysema type: centrilobular Qualified Code(s): J43.2 - Centrilobular emphysema (6) Essential hypertension: Status: Chronic Assessment and plan: Continue home meds changed as noted above under discussion for cardiomyopathy (7) Polymyalgia rheumatica: Status: Suspected Assessment and plan: continue home prednisone (8) GERD (gastroesophageal reflux disease): Status: Chronic Assessment and plan: continue omeprazole (9) DVT prophylaxis: Status: Acute Assessment and plan: enoxaparain sub cu (10) Discharge planning issues: Status: Acute Assessment and plan: anticipate a discharge to rehab prior to returning home. would benefit from acute rehab. case management following and referrals placed. (11) Acute insomnia: Status: Acute Assessment and plan: Melatonin initiated 01/18, improved sleep. Continue present management Subjective Subjective Patient reports: no new complaints, feels better, still having pain (Back pain when she gets off the chair to walk), tolerating liquids well, tolerating a regular diet, voiding w/o difficulty, bowel movement (3 times this morning but no diarrhea) and afebrile; denies shortness of breath (does not wnat her oxygen to be titrated from 3 to 2l at this time ) Exam Const General: cooperative, comfortable and no acute distress Nutritional Appearance: average body habitus Orientation: alert, awake and oriented x3 HENMT Head: normal to inspection, normocephalic and atraumatic Eyes General: appearance normal, both eyes and all related structures Chest Other: Symetrical bilateral expansion Resp Effort & Inspection: normal respiratory effort Auscultation: clear to auscultation bilaterally Cardio Rate: regular rate Rhythm: regular rhythm (Sinus rhythm) GI Inspection: normal to inspection Palpation: soft Auscultation: normal bowel sounds Skin General skin exam: no rashes or lesions noted Neuro General: patient alert, patient awake, patient oriented x3, moves all ext remities (Left lower slower to move when ambulating with walker.) and focal motor deficits present Cranial Nerves: PERRL (2 brisk), accommodation normal, no nystagmus, facial s trength normal, tongue midline, gag reflex normal, hearing normal and able to rotate head bilaterally Cognition: normal cognition Speech: speech normal and other (slurred speech) Gait: gait assisted Motor: strength abnormal (4/5 on left upper and 3/5 left lower, right 5/5) Sensory Exam: no sensory deficits noted Extrem General: no pedal edema Objective Last Vital Signs Temp 98.6 F 01/19/22 07:18 Pulse 59 L 01/19/22 07:53 Resp 18 01/19/22 07:18 BP 118/75 01/19/22 07:18 Pulse Ox 95 01/19/22 07:18 Laboratory Results - last 24 hr 01/18/22 16:30 Glucose 445 H D
--- NOTE | 2022-01-19 10:00 | PT.INTREAT ---
PT Notes Visit Reasons: Weakness,Ataxia 01/19/2022 SUBJECTIVE: Not as tired as yesterday. Agreeable to PT treatment. Complains of LE weakness and fatigue during gait, L>R. OBJECTIVE: TRANSFERS Supine to sit: CGA Sit to stand: CGA Stand to sit: CGA GAIT Device: FWW Weight bearing: Full Assist: CGA Distance: 25'x3+ 50' Deviation: 3 sit rest breaks, 3 L NC, L leg buckling ASSESSMENT: Pt demonstrates significant weakness LE's with L>R with L leg buckling frequently. Cues throughout for L knee flexion to avoid foot drop. PLAN: Continue per POC. Treatment time: 23' [id number] Emelyn Cheung PTA Clinic location: [facility] [place], [place]
[2022-01-19] MEDS: Enoxaparin 40 MG/0.4 ML SYR SC (11:57)
[2022-01-19] MEDS: Atorvastatin 40 MG TAB 80 MG PO (19:58)
[2022-01-19] MEDS: Normal Saline Flush 10 ML SYR IVP (19:58)
[2022-01-19] MEDS: Melatonin 3 MG TAB 6 MG PO (22:14)
[2022-01-20] VITALS: PULSE 82
[2022-01-20] MEDS: Acetaminophen 500 MG TAB 1000 MG PO (03:22)
[2022-01-20 03:40] VITALS: BP 133/70; PULSE 90; RESP 16; TEMP 36.4; O2SAT 95
[2022-01-20 07:00] VITALS: PULSE 85
--- NOTE | 2022-01-20 07:47 | W.PALLCONSUL ---
Date of service: 01/20/22 Time of Service: 07:47 [facility] All Active Problems (Updated 01/18/22 @ 12:20 by Holly Rojo) Acute insomnia (Acute) Carotid atherosclerosis (Acute) CVA (cerebral vascular accident) (Chronic) Discharge planning issues (Acute) DVT prophylaxis (Acute) Weakness (Acute) Hypoxemia (Acute) Pneumonia (Acute) Heart failure with reduced ejection fraction (Chronic) Pulmonary nodule (Acute) Nicotine dependence, cigarettes, uncomplicated (Chronic) Annual LDCT Osteoarthritis of hips, bilateral (Chronic) Type 2 diabetes mellitus (Chronic) Chronic obstructive pulmonary disease (Chronic) 09/2021- O2 dependent on 2 l/min (O2 sat at 83% RA) Essential hypertension (Chronic) Diabetic nephropathy (Chronic) Diabetic retinopathy (Chronic) Ventral hernia (Chronic) Generalized anxiety disorder (Acute) GERD (gastroesophageal reflux disease) (Chronic) Medical History Benign positional vertigo Iron deficiency anemia Migraine aura without headache Surgical History History of esophagogastroduodenoscopy (EGD) (07/30/18) S/P cholecystectomy S/P colonoscopy (07/30/18) S/P tonsillectomy Family History Mother No problems noted. Father Diabetes Daughter No problems noted. Daughter No problems noted. Daughter No problems noted. Daughter No problems noted. 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
[2022-01-20] MEDS: amLODIPine 5 MG TAB PO (08:00)
[2022-01-20] MEDS: Omeprazole 20 MG CAPCR PO (08:00)
[2022-01-20] MEDS: Calcium Carbonate 1.5 GM TAB PO (08:00)
[2022-01-20] MEDS: Aspirin E.C. 81 MG TABEC PO (08:01)
[2022-01-20] MEDS: Cholecalciferol (Vitamin D3) 1,000 UNIT TAB 1000 UNITS PO (08:01)
[2022-01-20] MEDS: Empaglifozin 10 MG TAB PO (08:01)
[2022-01-20] MEDS: predniSONE 10 MG TAB 15 MG PO (08:01)
[2022-01-20] MEDS: metFORMIN 500 MG TAB 1000 MG PO (08:01)
[2022-01-20] MEDS: Sacubitril/Valsartan 24 mg/26 mg TAB 1 EACH PO (08:01)
[2022-01-20] MEDS: Torsemide 20 MG TAB PO (08:01)
[2022-01-20] MEDS: Insulin NPH-Human 300 UNITS/3 ML PEN 8 UNIT SC (08:02)
[2022-01-20] MEDS: glipiZIDE 5 MG TAB PO (08:02)
[2022-01-20] MEDS: Cetirizine 10 MG TAB PO (08:02)
[2022-01-20] MEDS: Insulin Aspart 300 UNITS/3 ML PEN SC ×3 (08:03→12:12)
[2022-01-20] MEDS: Nystatin POWDER 60 GM JAR TP (08:04)
[2022-01-20 08:33] VITALS: BP 133/78; PULSE 82; RESP 18; TEMP 36.5; O2SAT 98
[2022-01-20] MEDS: Enoxaparin 40 MG/0.4 ML SYR SC (12:11)
--- NOTE | 2022-01-20 12:15 | CMDISCH_ITS ---
- If Service Date Differs Date of service: 01/20/22 Time of Service: 12:15 LACE Index Scoring Tool - Questions: Length of Stay (in days): 7 - 13 Acuity (Admit via E.D.?): Yes Comorbidities: Diabetes w/o Complication E.D. Visits: 3 - Answers: Total Score: 12 Risk of Readmission: High Risk Care Management Discharge Reason for Hospitalization: Weakness and Shortnesss of breath Discharge Plan: Beth will transfer to [facility] hospital for rehab prior to returning home. Transportation via EMS, coordinated by this writer technical publications. CM reveiwed plan with Beth and her daughter. Patient/Family Education Needs: Review discharge instructions, discuss Ask Me Three. Services Needed at Discharge: Custodial Facility ([facility] ), Transportation (EMS)
--- NOTE | 2022-01-20 12:21 | DSE_ITS ---
Date of service: 01/20/22 Time of Service: 12:22 DS: Diagnosis Discharge Diagnosis (1) CVA (cerebral vascular accident): Status: Chronic (2) Heart failure with reduced ejection fraction: Status: Chronic (3) Weakness: Status: Acute (4) Type 2 diabetes mellitus: Status: Chronic (5) Chronic obstructive pulmonary disease: Status: Chronic (6) Essential hypertension: Status: Chronic (7) Polymyalgia rheumatica: Status: Suspected (8) GERD (gastroesophageal reflux disease): Status: Chronic (9) Acute insomnia: Status: Acute Discharge Plan Disposition Patient Disposition: [facility] Condition: Improving Discharge Details Reason For Visit: Weakness,Ataxia Admit Date/Time: 01/13/22 06:14 Admit Provider: Selvin Arboleda Attending Provider: Selvin Arboleda Primary Care Provider: Katherine Andre [facility] Hospital Course: This is a 71 year old female with history of type 2 diabetes, hypertension, heart failure with reduced ejection fraction, polymyalgia rheumatica on chronic steroids who presented to the ED after a sudden onset of weakness. Her work up in the ED was not concerning for CVA per ED record. Her exam showed hypoxia with sat of 80 so other etiology for weakness was worked up. She was thought to have a community acquired pneumonia and was given azithromycin. Hospitalist services was contacted and request made for admission for weakness, hypoxemia with copd and pneumonia. A request for head CT showed no evidence of stroke and she was felt out of a 12 hour window for TPA per ED record. Without evidence of cough, fever or leukocytosis it was thought pneumonia unlikely after admission and antibiotics not continued. She was evaluated by and working with PT. She was felt to be in some heart failure and was diuresed. Medications adjusted with change from lasix to toresemide and jardiance and entresto added. Echo showed EF 35% ?with global hypokinesis unchanged from her prior echo. respiratory status remained stable and she was stable on her home oxygen requirements. She continued working with physical therapy and noted left sided weakness continued and noted to be worsen. Do to ongoing weakness, primarily on the left, she underwent an MRI that did show a 13 x 13 millimeter focus of acute nonhemorrhagic ischemic infarct in the right periventricular white matter.? This is superimposed upon abundant bilateral chronic small-vessel white ischemic changes. Her carotid ultrasound showed plaque bilaterally in the common carotid arteries, carotid bulbs and proximal internal carotid arteries.? Elevated velocity in the left side indicating moderate stenosis approximately 50-69 percent.? Lesser stenosis on the right side measuring less than 50 percent. Antegrade flow is demonstrated in both vertebral arteries. She was started on asa and atorvastatin and neurology consulted with review of case, should follow up with vascular surgery regarding carotid stenosis. She continued to work with PT and her symptoms started improving slowly. She remained medically stable and has been referred to acute rehab. She has been accepted by [facility]. She should follow up outpatient with neurology and her pcp after discharge from rehab. She is being discharged to acute rehab and being transported by ground EMS. Discharge discussed with DR Tobar. Home Meds and New Rx's Prescriptions: New atorvastatin 40 mg Tablet 80 mg PO QPM Qty: 0 0RF aspirin 81 mg Tablet,Delayed Release (Dr/Ec) 81 mg PO DAILY Qty: 0 0RF torsemide 20 mg Tablet 20 mg PO DAILY Qty: 0 0RF Entresto 24-26 mg tablet 1 tab PO BID Qty: 60 0RF Jardiance 10 mg tablet 10 mg PO DAILY Qty: 30 0RF Continued calcium carbonate [Calcium 600] 600 mg calcium (1,500 mg) tablet 600 mg PO BID 0RF acetaminophen 500 mg tablet 1,000 mg PO Q6H PRN0RF Label Comments: Max 6 tabs daily per pt albuterol sulfate 90 mcg/actuation HFA aerosol inhaler 2 puff inhalation Q6H PRN (Reason: shortness of breath or wheezing) Qty: 18 4RF nystatin 100,000 unit/gram powder 1 applic topical BID Qty: 30 0RF prednisone 10 mg tablet 15 mg PO DAILY 0RF Label Comments: Takes a 10mg tab and a 5mg tab = 15mg amlodipine 5 mg tablet 5 mg PO DAILY Qty: 90 4RF Rx Instructions: Take 1 tablet daily fluticasone propionate [Flonase Allergy Relief] 50 mcg/actuation spray,suspension 2 spray intranasal DAILY PRN (Reason: allergy symptoms) Qty: 16 4RF Rx Instructions: administer into each nostril glipizide 5 mg tablet 5 mg PO DAILY Qty: 90 4RF metformin 500 mg tablet 1,000 mg PO BID Qty: 360 4RF cetirizine 10 mg tablet 10 mg PO DAILY Qty: 90 4RF Rx Instructions: take one tablet daily Bevespi Aerosphere 9-4.8 mcg HFA aerosol inhaler 1 puff inhalation BID Qty: 10.7 4RF Hold Instructions: Has not started and does not wish to for now Rx Instructions: 1 puff twice a day omeprazole 20 mg capsule,delayed release(DR/EC) 20 mg PO DAILY Qty: 90 4RF cholecalciferol (vitamin D3) [Vitamin D3] 25 mcg (1,000 unit) Capsule 25 mcg PO DAILY 0RF Changed losartan 100 mg tablet 150 mg PO DAILY Qty: 90 4RF Rx Instructions: Take 1 tab daily in addition to the 50mg tab Discontinued losartan 50 mg tablet 50 mg PO DAILY Qty: 90 4RF Rx Instructions: Take 1 tab daily in addition to the 100mg tab furosemide 40 mg tablet 40 mg PO DAILY 0RF Rx Instructions: may svetlana an additional 20 or 40 mg if gaining weight No Action mupirocin 2 % ointment 1 applic topical BID Qty: 15 0RF (DME) blood-glucose meter [OneTouch Ultra2 Meter] Kit See Rx Instructions .MEDSUPPLY Qty: 1 2RF Rx Instructions: Check blood sugar twice a day (DME) OneTouch Ultra Blue Test Strip Strip See Rx Instructions .MEDSUPPLY Qty: 200 4RF Rx Instructions: Check blood sugar twice a day (DME) lancets [OneTouch Delica Plus Lancet] 33 gauge misc See Rx Instructions .MEDSUPPLY Qty: 200 4RF Rx Instructions: Check blood sugar twice a day (DME) Aerochamber MV Spacer See Rx Instructions .ROUTE .MEDSUPPLY Qty: 2 4RF Rx Instructions: Use with inhalers Discharge Instructions Instructions: Right Hemispheric Stroke (DC) Stand Alone Forms: Nursing Discharge Form Referrals: Katherine Andre NP [Primary Care Provider] - 02/03/22 11:00 am Sujatha Meneses MD [ [facility] STAFF PHYSICIAN] - 01/27/22 10:00 am Marian Bauman MD [ [facility] STAFF PHYSICIAN] - (The office will call you with an appointment ) Activity:: Activity as Tolerated Equipment/Supplies:: No Equipment Needed Diet:: Carb Counting Discharge Orders Discharge Orders: Discharge Order (Routine); Ordered 01/20/22 Ordered By: Lynnette Sandra DS: Summary Time Spent with Patient providing and/or coordinating discharge services: Greater than 30 minutes Status at Discharge Functional status at discharge: uses cane/walker Overall status at discharge: patient is progressing back to baseline Mental Status: mental status grossly normal Speech and Movement: speech and movement normal Mood: congruent mood Affect: normal affect Exam Const General: cooperative, comfortable and no acute distress Nutritional Appearance: average body habitus Orientation: alert, awake and oriented x3 HENMT Head: normal to inspection, normocephalic and atraumatic Eyes General: appearance normal, both eyes and all related structures Resp Effort & Inspection: normal respiratory effort Auscultation: clear to auscultation bilaterally Cardio Rate: regular rate Rhythm: regular rhythm GI Inspection: normal to inspection Palpation: soft Auscultation: normal bowel sounds Skin General skin exam: no rashes or lesions noted Neuro General: patient alert, patient awake, patient oriented x3, moves all extremities and focal motor deficits present Cranial Nerves: PERRL, no nystagmus, facial strength normal and tongue midline Cognition: normal cognition Speech: speech normal Gait: gait assisted Motor: strength abnormal (4/5 on left upper and 3/5 left lower, right 5/5) Sensory Exam: no sensory deficits noted Extrem General: no pedal edema Psych Mental Status: mental status grossly normal Speech and Movement: speech and movement normal Mood: congruent mood Affect: normal affect DS: Data Vitals/I&O Vitals and I&O: Vital Signs Temperature 36.5 C 01/20/22 08:33 Temperature Source Tympanic 01/20/22 08:33 Pulse 82 01/20/22 08:33 Pulse Rhythm Regular 01/20/22 07:20 Pulse 100 H 01/13/22 07:20 Respiratory Rate 18 01/20/22 08:33 Respiratory Effort 01/20/22 07:20 Respiratory Depth Normal 01/20/22 07:20 Respiratory Pattern Normal 01/20/22 07:20 Blood Pressure 133/78 01/20/22 08:33 Blood Pressure Mean 92 01/13/22 06:01 Pulse Oximetry 98 01/20/22 08:33 Oxygen Delivery Method Nasal Cannula 01/20/22 08:33 Oxygen Flow Rate 3 01/20/22 08:33 Fraction of Inspired Oxygen (FIO2) 94 01/17/22 08:00 Pain Level 0 01/20/22 08:33 Comment 01/18/22 06:20 Intake & Output 01/19/22 01/20/22 01/20/22 23:59 11:59 23:59 Intake Total 460 / 710 360 / 360 Output Total 1350 / 2100 1750 / 1750 Balance -890 / -1390 -1390 / -1390 Weight 76.3 kg Intake: IV Oral 450 / 700 360 / 360 Output: Urine 1350 / 2100 1750 / 1750 Other: Urine Color Yellow Yellow Urine Appearance Clear Clear Urine Odor Normal None Comment mixed with stool Stool Size Moderate Stool Characteristics Soft Voiding Methods Bedside Commode Bedside Commode PFS All Active Problems (Updated 01/18/22 @ 12:20 by Holly Rojo) Acute insomnia (Acute) Carotid atherosclerosis (Acute) CVA (cerebral vascular accident) (Chronic) Discharge planning issues (Acute) DVT prophylaxis (Acute) Weakness (Acute) Hypoxemia (Acute) Pneumonia (Acute) Heart failure with reduced ejection fraction (Chronic) Pulmonary nodule (Acute) Nicotine dependence, cigarettes, uncomplicated (Chronic) Annual LDCT Osteoarthritis of hips, bilateral (Chronic) Type 2 diabetes mellitus (Chronic) Chronic obstructive pulmonary disease (Chronic) 09/2021- O2 dependent on 2 l/min (O2 sat at 83% RA) Essential hypertension (Chronic) Diabetic nephropathy (Chronic) Diabetic retinopathy (Chronic) Ventral hernia (Chronic) Generalized anxiety disorder (Acute) GERD (gastroesophageal reflux disease) (Chronic) Medical History Benign positional vertigo Iron deficiency anemia Migraine aura without headache Surgical History History of esophagogastroduodenoscopy (EGD) (07/30/18) S/P cholecystectomy S/P colonoscopy (07/30/18) S/P tonsillectomy Family History Mother No problems noted. Father Diabetes Daughter No problems noted. Daughter No problems noted. Daughter No problems noted. Daughter No problems noted. 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
--- NOTE | 2022-01-20 13:37 | NUR.NOTE ---
Nursing Note: Nurse to Nurse report provided to ADALBERTO Cota at [phone]. All questions asked, answered.
--- NOTE | 2022-01-20 18:10 | PT.INDS ---
Date of service: 01/20/22 PT Notes Visit Reasons: Weakness,Ataxia Physical Therapy Inpatient Discharge Summary Date: 01/20/2022 Dates of service: 01/17/2022 through 01/21/20202009 This is a clinical summary of care provided for the duration of dates listed above. No charge was made in the completion of this documentation. Referring Doctor:? Amy Cisneros NP PT Orders: PT CONSULT: Eval/Treat Precautions: Activity as tolerated. Patient Profile/Admitting Diagnosis:? Patient is a 71-year-old female who presented to the ED on 01/13/2022 due to generalized weakness, dizziness, lightneadedness, mild shortness of breath, and difficulty with breathing. Patient with suspected diagnoses of weakness with question of cerebellar CVA, atypical pneumonia, and generalized weakness. PMHX: All Active Problems? Weakness (Acute) Hypoxemia (Acute) Pneumonia (Acute) Heart failure with reduced ejection fraction (Chronic) Pulmonary nodule (Acute) Nicotine dependence, cigarettes, uncomplicated (Chronic) Annual LDCTOsteoarthritis of hips, bilateral (Chronic) Type 2 diabetes mellitus (Chronic) Chronic obstructive pulmonary disease (Chronic) 09/2021- O2 dependent on 2 l/min (O2 sat at 83% RA)Essential hypertension (Chronic) Diabetic nephropathy (Chronic) Diabetic retinopathy (Chronic) Ventral hernia (Chronic) Generalized anxiety disorder (Acute) GERD (gastroesophageal reflux disease) (Chronic) Medical History? Benign positional vertigo Iron deficiency anemia Migraine aura without headache Surgical History? History of esophagogastroduodenoscopy (EGD) (07/30/18) S/P cholecystectomy S/P colonoscopy (07/30/18) S/P tonsillectomy Social History/Home Situation: Patient lives alone at the [address] here in [place] with 2 steps to enter.? She has a basement but she stresses that she does not need to go down as she has everything she needs on the main floor of the apartment.? She reports that the washer/dryer area is about 100 feet from her apartment.? Prior to this most recent hospitalization, patient was independent with all aspects of ADLs without the need for an assistive ambulatory device nor adaptive equipment. Equipment Owned/DME: [facility] Subjective: NT. See most recent CLOUD SYSTEMS ADMINISTRATOR notes. Objective: General Observation: NT. See most recent CLOUD SYSTEMS ADMINISTRATOR notes. Mental Status: NT. See most recent CLOUD SYSTEMS ADMINISTRATOR notes. Pain: NT. See most recent CLOUD SYSTEMS ADMINISTRATOR notes. Vital Signs: NT. See most recent CLOUD SYSTEMS ADMINISTRATOR notes. ROM: Right Upper Extremity: ? Shoulder Flexion WFL. Shoulder abduction WFL. Elbow flexion WFL. Wrist flexion WFL. Opening and closing of hand WFL. Left Upper Extremity:? Shoulder Flexion allows only up to 90 degrees. Shoulder abduction allows only up to 80 degrees. Elbow flexion WFL. Wrist flexion WFL. Opening and closing of hand WFL. Right Lower Extremity: Hip flexion WFL. Hip abduction WFL. Knee flexion WFL. Ankle dorsiflexion to neutral only. Ankle plantarflexion WFL. Left Lower Extremity: Hip flexion unable to bend beyond 90 due to left hip pain. Hip abduction WFL. Knee flexion WFL. Ankle dorsiflexion to neutral only. Ankle plantarflexion WFL. Strength: Right Upper Extremity: Shoulder flexors 4-/5. Shoulder abductors 4-/5. Elbow flexors 4/5. Elbow extensors 4/5. Log Roper weak but functional. Left Upper Extremity: Shoulder flexors 3-/5. Shoulder abductors 3-/5. Elbow flexors 4-/5. Elbow extensors 4-/5. Log Roper weak but functional. Right Lower Extremity: Hip flexors 4/5. Hip abductors 4/5. Knee flexors 4/5. Knee extensors 4/5. Ankle dorsiflexors 3-/5. Ankle plantarflexors 4-/5. Left Lower Extremity:Hip flexors 3-/5. Hip abductors 3-/5. Knee flexors 3/5. Knee extensors 3/5. Ankle dorsiflexors 3-/5. Ankle plantarflexors 4/5. Sensation: Intact as to pain and pressure on bilateral lower extremities. Bed Mobility/Transfers: Rolling SBA Supine to sit SBA with HIB at 30 degrees Sit to stand CGA Stand to sit CGA CGA Bed to chair? CGA Chair to bed CGA Gait: Patient tolerated level surface ambulation of 30 feet + 50 feet + 50 feet using front-wheeled walker with CGA.? Reciprocal step through gait pattern.? Terri decreased. No ataxia, limb shaking, tremors seen observed.? Denies headache, chest pain, and dizziness. Balance: Static Sitting: Normal Dynamic Sitting: Normal Static Standing: Fair Dynamic Standing: Fair Assessment: Mild pronator drift on L UE.? Weakness on L UE/LE much more discernible than the R.? Difficulty with walking, Need for assistive device for all mobility ADL performance, increased risk for falls, and generalized weakness, resulting from current diagnoses. Patient is a 71-year-old female who presented to the ED on 01/13/2022 due to generalized weakness, dizziness, lightneadedness, mild shortness of breath, and difficulty with breathing. Patient with suspected diagnoses of weakness with question of cerebellar CVA, atypical pneumonia, and generalized weakness. Patient presents with clinical signs and symptoms consistent with current/admitting diagnoses that have resulted to mobility limitations, gait instability, generalized weakness, and impairment of motor control as demonstrated by the following impairment level findings: 1.? Decreased strength to B LE major muscle groups 2.? Impaired standing balance 3.? Impaired activity tolerance 4.? Limitation of joint range of motion in left shoulder and left hip Impairments are contributing to the following functional limitations: 1.? Increased dependence with transfers 2.? Inability to safely ambulate without assistive device and physical assistance 3.? Increase completion time for mobility ADL performance 4.? Increased fall risk 5.? Inability to negotiate steps alone safely Goals: Goals X1 week 1. Supine-Sit independent 2. Sit-Supine independent 3. Sit-Stand independent 4. Stand-Sit independent 5. Bed-Chair independent 6. Chair-Bed independent 7. Independent gait on level surface with use of least restrictive device for at least 300 feet without report of pain nor dyspnea 8. Independent stair negotiation while holding onto bilateral rails for at least 10 steps without report of pain nor dyspnea 9. Independent with home exercise program 10. Good static and dynamic standing balance/tolerance DISCHARGE RECOMMENDATIONS: [] ? Home with no services [] [X] ? Home with services.? Patient will benefit from home health PT services in order to progress mobility level using least restrictive assistive ambulatory device, assess home safety, identify additional equipment needs, and establish a functional maintenance program that will increase ability of patient to remain at home. [] ? Home with outpatient PT [] [] ? SNF for continued rehabilitation [] [] ? [facility] Services Sales Representative Care [] follow-up no [] ? SNF versus LTC based on ability to participate and progress [] TREATMENT CODE/TIME: NC Thank you very much for this referral. Nahed Miller PT, DPT, CLT [facility] [place], [place]
== END 2022-01-20 14:37 | disposition short-term general hospital (02) | DRG 65 ==
LOC: ER 05:28 → MS 08:52
PROVIDERS: Internal Medicine; Nurse Practitioner Acute Care; Nurse Practitioner Family; Admitting Provider General Practice; Emergency Provider Student in an Organized Health Care Education/Training Program; PCP Nurse Practitioner Family; Visit Provider General Practice
DX: I63.9 Cerebral infarction, unspecified (principal); I50.22 Chronic systolic (congestive) heart failure; G81.94 Hemiplegia, unspecified affecting left nondominant side; R09.02 Hypoxemia; M35.3 Polymyalgia rheumatica; Z99.81 Dependence on supplemental oxygen; K21.9 Gastro-esophageal reflux disease without esophagitis; E11.9 Type 2 diabetes mellitus without complications; Z79.84 Long term (current) use of oral hypoglycemic drugs; I11.0 Hypertensive heart disease with heart failure; F17.210 Nicotine dependence, cigarettes, uncomplicated; M16.0 Bilateral primary osteoarthritis of hip; E11.21 Type 2 diabetes mellitus with diabetic nephropathy; F41.1 Generalized anxiety disorder; E11.319 Type 2 diabetes mellitus with unspecified diabetic retinopathy without macular edema; R91.1 Solitary pulmonary nodule; K43.9 Ventral hernia without obstruction or gangrene; D50.9 Iron deficiency anemia, unspecified; R26.9 Unspecified abnormalities of gait and mobility; J43.2 Centrilobular emphysema; Z66 Do not resuscitate; G47.09 Other insomnia
CPT/HCPCS: 36415; 70544; 70547; 80048; 80053; 80061; 82947; 85027; 87635; 93005; 93306; 94640; 96365; 96366; 97110; 97162; 97167; 97530; 97535; 99285; J1650; 70450; 70551; 71045; 81003; 81015; 83036; 83735; 83880; 84443; 84484; 85025; 85379; 93010; 93880; 99222; 99232; 99233; 99239; J0456; J0696; J1940; J2060; J7512; J7620

== ENCOUNTER 2022-02-03 16:21 | Outpatient (REF) | payer MEDICARE, MEDICAID, SELFPAY ==
[2022-02-03 16:53] LABS: Abs Immature Grans 0.04 10^3/uL (0.0-0.06); Absolute Basophil Count 0.01 10^3/uL (0.0-0.2); Absolute Eosinophil Count 0.01 10^3/uL (0.0-0.7); Absolute Lymphocyte Count 0.61 10^3/uL (1.2-3.4); Absolute Monocyte Count 0.56 10^3/uL (0.1-0.8); Basophils % 0.1; Eosinophils % 0.1; HCT 33.2 % (36.0-46.0); HGB 10.4 g/dL (11.2-15.7); Immature Grans % 0.4; Lymphocytes % 5.4; MCH 27.8 pg (27.0-33.0); MCHC 31.3 % (32.0-36.0); MCV 88.8 fL (80-95); MPV 11.1 fL (8.0-11.0); Nucleated RBC 0 %; Platelet Count 256 10^3/uL (130-400); RBC 3.74 10^6/uL (3.93-5.22); RDW 13.9 % (11.7-14.6); RDW-SD 45.1 fL; WBC 11.29 10^3/uL (4.4-10.8)
[2022-02-03 16:55] LABS: Absolute Neutrophil Count 10.05 10^3/uL (1.2-6.7)
[2022-02-03 17:33] LABS: ALT 43 U/L (14-59); AST 25 U/L (15-37); Albumin 3.7 g/dL (3.4-5.0); Alkaline Phosphatase 47 U/L (46-116); Anion Gap 12.5 mmol/L (3-11); BUN 30 mg/dL (7-18); Bilirubin, Total 0.6 mg/dL (0.2-1.0); CO2 28.5 mmol/L (21.0-32.0); CREATININE 1.5 mg/dL (0.55-1.02); Calcium 8.8 mg/dL (8.5-10.1); Chloride 100 mmol/L (98-107); Estimated GFR 34.13 (mL/min/1.73m2); Glucose 292 mg/dL (74-106); Potassium 4.2 mmol/L (3.5-5.1); Sodium 141 mmol/L (136-145); Total Protein 6.7 g/dL (6.4-8.2)
[2022-02-03 17:38] LABS: Bilirubin Negative (Negative); Blood Trace-intact (Negative); Clarity Clear (Clear); Glucose 500 mg/dL (Negative); Ketones Negative (Negative); Leukocyte Esterase Negative (Negative); Nitrite Negative (Negative); Urobilinogen 0.2 EU/dL (Up TO 0.2)
[2022-02-03 17:55] LABS: Bacteria Negative HPF (Negative); C & S Indicated? No/Sq. Contamination; Crystals Negative HPF (Negative); Epithelial Cells Many HPF (Negative); Mucus Negative (Negative); RBC 0-2 HPF (0-2)
== END 2022-02-03 16:22 | disposition home or self-care (01) ==
LOC: NCHCN 16:21
PROVIDERS: PCP Nurse Practitioner Family; Visit Provider Nurse Practitioner Family
DX: E11.319 Type 2 diabetes mellitus with unspecified diabetic retinopathy without macular edema (principal); I63.9 Cerebral infarction, unspecified; R31.29 Other microscopic hematuria
CPT/HCPCS: 80053; 81003; 81015; 85025

== ENCOUNTER 2022-02-06 19:04 | Outpatient (REF) | payer MEDICARE, MEDICAID, SELFPAY ==
[2022-02-06 16:00] LABS: C-Reactive Protein 0.14 mg/dL (0.0-0.3)
== END 2022-02-06 19:05 | disposition home or self-care (01) ==
LOC: LBN 19:04
PROVIDERS: PCP Nurse Practitioner Family; Visit Provider Nurse Practitioner Family
DX: M35.3 Polymyalgia rheumatica (principal)
CPT/HCPCS: 86140

== ENCOUNTER → 2022-02-18 11:35 | Outpatient (CLI) | payer MEDICARE, MEDICAID, SELFPAY ==
--- NOTE | 2022-02-18 11:00 | DI.RAD_ITS ---
Exam(s) XR RIBS LT W PA LAT CHEST EXAM: XR RIBS LT W PA LAT CHEST CLINICAL HISTORY: rib pain r/o fx - Pleurodynia R07.81. TECHNIQUE: 2D digital imaging was performed. COMPARISON: CR,XR XR PORTABLE CHEST AP from 01/13/2022 FINDINGS: Six views total Four left rib views: No obvious left rib fracture. No left rib lesion. Chest x-ray (two views): Cardiomegaly. No pericardial effusion bilateral hyperinflation but no pulmo nary edema at this time (as was evident on the chest x-ray of 01/13/2022). There is platelike atelec tasis in the lateral aspect of both lung bases. These findings are superimposed upon hyperinflation. IMPRESSION: COPD. Cardiomegaly. Platelike atelectasis in both lung bases, more prominent on the left side. No pleural effusions. No obvious left rib fractures. No pneumothorax. DATA REPOSITORY: RADIATION DOSE DELIVERED:
== END ==
PROVIDERS: PCP Nurse Practitioner Family; Visit Provider Nurse Practitioner
DX: R07.81 Pleurodynia (principal); I51.7 Cardiomegaly; J98.11 Atelectasis; J44.9 Chronic obstructive pulmonary disease, unspecified
CPT/HCPCS: 71046; 71100

== ENCOUNTER → 2022-03-10 11:40 | Outpatient (BNVA) | payer MEDICARE, MEDICAID, SELFPAY | PROVIDERS: PCP Nurse Practitioner Family; Referring Provider Nurse Practitioner Family; Visit Provider Internal Medicine Cardiovascular Disease | DX: I63.9 Cerebral infarction, unspecified (principal); I50.20 Unspecified systolic (congestive) heart failure; I10 Essential (primary) hypertension; J43.2 Centrilobular emphysema | CPT/HCPCS: 99214; 99213 ==

== ENCOUNTER 2022-03-17 15:08 | Outpatient (REF) | payer MEDICARE, MEDICAID, SELFPAY ==
[2022-03-18 16:07] LABS: COVID-19 RT-PCR UVMMC Result Negative (Negative)
== END 2022-03-17 15:09 | disposition home or self-care (01) ==
LOC: LBN 15:08
PROVIDERS: PCP Nurse Practitioner Family; Visit Provider Nurse Practitioner Family
DX: Z20.822 Contact with and (suspected) exposure to COVID-19 (principal)
CPT/HCPCS: U0003; U0005

== ENCOUNTER 2022-04-01 04:13 | Inpatient (IN) | payer MEDICARE, MEDICAID, SELFPAY ==
[2022-04-01] VITALS (27 sets, daily range): BP systolic 114–155; BP diastolic 61–82; PULSE 96–107; RESP 2–33; TEMP 36.5–36.7; O2SAT 88–98
--- NOTE | 2022-04-01 04:15 | RT.EKG_ITS ---
APPROVED REPORT Exam: Resting ECG Reason for Exam: chest pain Patient Location: E HR:104 bpm ECG Measurements Heart Rate [address] 151 P 59 QRSd 97 QRS 47 QT 406 T 84 QTc 534 Conclusion Sinus tachycardia...rate> 99 Ventricular tachycardia, unsustained...sequence of 3 or more V complexes Left atrial enlargement...P, P'>60mS, <-0.15mV V1 Low voltage, precordial leads...precordial leads <1.0mV ST depression, consider ischemia, lateral lds...ST <-0.10mV, I aVL V5 V6 Prolonged QT interval...QTc >500mS Physician: Rate 104, sinus tachycardia, QT 406, no significant ST elevations or depressions. PVCs no jerry. Notable artifact in lateral leads. No STEMI
--- NOTE | 2022-04-01 04:15 | DI.RAD_ITS ---
Exam(s) XR PORTABLE CHEST AP EXAM: XR PORTABLE CHEST AP CLINICAL HISTORY: cough, sob, chest heavy. TECHNIQUE: 2D digital imaging was performed. COMPARISON: CR XR RIBS LT W PA LAT CHEST from 02/18/2022 FINDINGS: Single AP portable view. Cardiomegaly again noted. The mediastinum is not widened There is COPD findings and bilateral interstitial disease. In addition, there is a nodular infiltrat e in the left lung base measuring approximately 3.8 x 2 cm. No large pleural effusions evident. IMPRESSION: COPD. Interstitial disease. Infiltrate versus mass in the left lung base. Follow-up CT scan recomm ended. Study 1st read by [facility] Report called by myself to ER physician 04/01/2022 7:45 a.m. DATA REPOSITORY: RADIATION DOSE DELIVERED: All CT scans at this facility use at least one of these dose optimization techniques: automated exposure control; mA and/or kV adjustment per patient size (includes targeted e xams where dose is matched to clinical indication); or iterative reconstruction.
--- NOTE | 2022-04-01 04:25 | ED.GENADUL_ITS ---
Discharge Plan Disposition Patient Disposition: [facility] INPATIENT Condition: Improving Discharge Details Chief Complaint: Chest Pain Clinical Impression: Acute exacerbation of chronic obstructive pulmonary disease, Acute exacerbation of congestive heart failure Primary Care Provider: Katherine Andre ED Provider: Hardy Benson Home Meds and New Rx's Prescriptions: No Action calcium carbonate [Calcium 600] 600 mg calcium (1,500 mg) tablet 600 mg PO BID acetaminophen 500 mg tablet 1,000 mg PO Q6H PRN Label Comments: Max 6 tabs daily per pt albuterol sulfate 90 mcg/actuation HFA aerosol inhaler 2 puff inhalation Q6H PRN (Reason: shortness of breath or wheezing) Qty: 18 4RF lidocaine 4 % adhesive patch,medicated 1 patch topical DAILY PRN (Reason: pain) Qty: 30 1RF Rx Instructions: Apply patch to most painful area, may leave on for up to 12 hrs glipizide 5 mg tablet 2.5 mg PO DAILY Qty: 45 3RF Rx Instructions: Half a tablet daily amlodipine 5 mg tablet 5 mg PO DAILY Qty: 90 3RF Rx Instructions: Take 1 tablet daily atorvastatin 80 mg tablet 80 mg PO QPM Qty: 90 3RF Jardiance 10 mg tablet 10 mg PO DAILY Qty: 90 3RF torsemide 20 mg tablet 20 mg PO DAILY Qty: 90 3RF prednisone 10 mg tablet 15 mg PO DAILY Label Comments: Takes a 10mg tab and a 5mg tab = 15mg (DME) blood-glucose meter [OneTouch Ultra2 Meter] Kit See Rx Instructions .MEDSUPPLY Qty: 1 2RF Rx Instructions: Check blood sugar twice a day fluticasone propionate [Flonase Allergy Relief] 50 mcg/actuation spray,suspension 2 spray intranasal DAILY PRN (Reason: allergy symptoms) Qty: 16 4RF Rx Instructions: administer into each nostril (DME) OneTouch Ultra Blue Test Strip Strip See Rx Instructions .MEDSUPPLY Qty: 200 4RF Rx Instructions: Check blood sugar twice a day (DME) lancets [OneTouch Delica Plus Lancet] 33 gauge misc See Rx Instructions .MEDSUPPLY Qty: 200 4RF Rx Instructions: Check blood sugar twice a day metformin 500 mg tablet 1,000 mg PO BID Qty: 360 4RF cetirizine 10 mg tablet 10 mg PO DAILY Qty: 90 4RF Rx Instructions: take one tablet daily Bevespi Aerosphere 9-4.8 mcg HFA aerosol inhaler 1 puff inhalation BID Qty: 10.7 4RF Hold Instructions: Has not started and does not wish to for now Rx Instructions: 1 puff twice a day (DME) Aerochamber MV Spacer See Rx Instructions .ROUTE .MEDSUPPLY Qty: 2 4RF Rx Instructions: Use with inhalers omeprazole 20 mg capsule,delayed release(DR/EC) 20 mg PO DAILY Qty: 90 4RF cyclobenzaprine 10 mg tablet 10 mg PO TID PRN (Reason: muscle spasm) Qty: 60 0RF Entresto 24-26 mg tablet 1 tab PO BID Qty: 90 4RF cholecalciferol (vitamin D3) [Vitamin D3] 25 mcg (1,000 unit) Capsule 25 mcg PO DAILY aspirin 81 mg Tablet,Delayed Release (Dr/Ec) 81 mg PO DAILY Qty: 0 0RF Medical Decision Making This is a 71-year-old female with a past medical history of polymyalgia rheumatica, severe COPD and chronic lung disease on Oxygen dependence at 2 L continuously, GERD, type 2 diabetes, hypertension, who presents today for evaluation of chest heaviness and shortness of breath. Patient states that over the last 3 days she has become more short of breath than normal. Both with and without activity. She admits to very mild chest pressure, but no chest pain. She denies any fever or chills. She does admit to a mild chronic cough. She denies any hemoptysis, vomiting, or diarrhea. She denies any new focal numbness tingling or weakness. Upon EMS arrival the patient was saturating in the low 90s, she was started on 4 L of oxygen and this improved her O2 saturations and her subjective shortness of breath. No Other complaints at this time. Exam demonstrates diminished breath sounds throughout, no evidence of significant respiratory distress though. No retractions. Differential includes COPD exacerbation, CHF exacerbation, less likely cardiac etiology, will give breathing treatments, steroids, evaluate for concerning etiologies, monitor closely and reassess. We will give 3 duo nebs, and Solu-Medrol. 5:44 AM After breathing treatments the patient's chest tightness and heaviness completely resolved, however her oxygenation status did not. She is still requiring 4 L to maintain around 92%. Laboratory work-up shows no white count or bandemia. VBG demonstrates a stable pH and slightly elevated PCO2. Electrolytes normal, renal function stable. proBNP is higher than normal for the patient at 16,800. Troponin normal. COVID/flu/RSV are normal. Chest x-ray shows evidence of diffuse coarsening of the interstitial pulmonary markings with scarring in the lung bases. Suspect COPD, but I do feel there is a component of vascular congestion. Review of the patient's echocardiogram demonstrates reduced ejection fraction at around 35%, as well as a high RVSP. Patient also now admits that tonight was her first night sleeping in her bed, and when she lie down flat she immediately felt short of breath. I suspect there is a combination of worsening of her chronic COPD, as well as slight worsening of her chronic CHF. We will give 20 mg of Lasix. With the patient's continued oxygen demands, and her symptomatology I do feel she would benefit from inpatient admission. I did contact the hospitalist Dr. Jorge, he agrees with the assessment and plan. I will place admission orders on his behalf. I have exten sively reviewed the treatment plan with the patient. I have addressed all patient concerns at this time. I have also discussed the plan with the admitting physician and they agree with the current assessment and plan and have agreed to assume responsibility for the patient. All parties demonstrate verbal understanding and agreement with our assessment and plan at this time. The documentation in this chart was dictated using [employer]eraFir[employer] dictation software. Please excuse any dictation errors. EKG 4: 25 Rate 104, sinus tachycardia, QT 406, no significant ST elevations or depressions. PVCs noted. Notable artifact in lateral leads. No STEMI. FINDINGS: Limitations: Patient positioning is rotated. Lungs: There is extensive reticular interstitial prominence suggesting underlying chronic lung disease. COPD is suspected. There is redemonstration of scarring at the lateral lung bases bilaterally. No new region of pulmonary consolidation is seen. Pleural spaces: See Soft tissues finding. Heart/Mediastinum: The heart is probably normal in size, given rotated patient positioning. There is atherosclerotic calcification at the apex of the aortic arch. Bones/joints: There are osteophytes along the margin of the thoracic spine. Soft tissues: A left-sided pleural effusion would be difficult to exclude given overlying soft tissue and artifact partially obscuring the left costophrenic angle. No right-sided pleural effusion is seen. No pneumothorax is demonstrated. IMPRESSION: Diffuse coarsening of the interstitial pulmonary markings with scarring redemonstrated at the lateral lung bases. COPD is suspected. Within the limits of the exam, no new pulmonary consolidation is demonstrated Thank you for allowing us to participate in the care of your patient. Dictated and Authenticated by: Jasper Guallpa MD 04/01/2022 5:25 AM Eastern Time ([place] & [place]) HPI General Date/Time Provider Initiated Documentation: 04/01/22 04:20 . HPI Narrative: This is a 71-year-old female with a past medical history of polymyalgia rheumatica, severe COPD and chronic lung disease on Oxygen dependence at 2 L continuously, GERD, type 2 diabetes, hypertension, who presents today for evaluation of chest heaviness and shortness of breath. Patient states that over the last 3 days she has become more short of breath than normal. Both with and without activity. She admits to very mild chest pressure, but no chest pain. She denies any fever or chills. She does admit to a mild chronic cough. She denies any hemoptysis, vomiting, or diarrhea. She denies any new focal numbness tingling or weakness. Upon EMS arrival the patient was saturating in the low 90s, she was started on 4 L of oxygen and this improved her O2 saturations and her subjective shortness of breath. No Other complaints at this time. Related Data Home Medications Medication Instructions Recorded Confirmed blood-glucose meter (EdRover #1 ea 11/26/20 03/10/22 Ultra2 Meter kit) fluticasone propionate 50 2 spray intranasal DAILY PRN 04/15/21 04/01/22 mcg/actuation nasal allergy symptoms #16 grams spray,suspension (Flonase Allergy Relief) cholecalciferol (vitamin D3) 25 25 mcg PO DAILY 08/30/21 04/01/22 mcg (1,000 unit) capsule (Vitamin D3) blood sugar diagnostic #200 ea 11/07/21 03/10/22 lancets 33 gauge (OneTouch Delica #200 ea 11/07/21 03/10/22 Plus Lancet) metformin 500 mg tablet 1,000 mg PO BID #360 tabs 11/07/21 04/01/22 albuterol sulfate 90 mcg/actuation 2 puff inhalation Q6H PRN 12/02/21 04/01/22 aerosol inhaler shortness of breath or wheezing #18 grams cetirizine 10 mg tablet 10 mg PO DAILY #90 tab-caps 12/16/21 04/01/22 acetaminophen 500 mg tablet 1,000 mg PO Q6H PRN 12/23/21 04/01/22 calcium carbonate 600 mg calcium 600 mg PO BID 12/23/21 04/01/22 (1,500 mg) tablet (Calcium) prednisone 10 mg tablet 15 mg PO DAILY 12/23/21 04/01/22 glycopyrrolate 9 mcg-formoterol 1 puff inhalation BID #10.7 grams 12/25/21 04/01/22 4.8 mcg HFA aerosol inhaler (Bevespi Amimonphere) inhalational spacing device #2 ea 12/25/21 03/10/22 (Aerochamber MV spacer) omeprazole 20 mg capsule,delayed 20 mg PO DAILY #90 tab-caps 12/25/21 04/01/22 release aspirin 81 mg tablet,delayed 81 mg PO DAILY #0 tabs 01/20/22 04/01/22 release amlodipine 5 mg tablet 5 mg PO DAILY #90 tab-caps 02/03/22 04/01/22 atorvastatin 80 mg tablet 80 mg PO QPM #90 tabs 02/03/22 04/01/22 empagliflozin 10 mg tablet 10 mg PO DAILY #90 tabs 02/03/22 04/01/22 (Jardiance) glipizide 5 mg tablet 2.5 mg PO DAILY #45 tabs 02/03/22 04/01/22 lidocaine 4 % topical patch 1 patch topical DAILY PRN pain #30 02/03/22 04/01/22 ea torsemide 20 mg tablet 20 mg PO DAILY #90 tabs 02/03/22 04/01/22 cyclobenzaprine 10 mg tablet 10 mg PO TID PRN muscle spasm #60 02/24/22 03/10/22 tabs sacubitril 24 mg-valsartan 26 mg 1 tab PO BID #90 tabs 03/17/22 04/01/22 tablet (Entresto) Previous Rx's Medication Instructions Recorded blood-glucose meter (OneTouch #1 ea 11/26/20 Ultra2 Meter kit) fluticasone propionate 50 2 spray intranasal DAILY PRN 04/15/21 mcg/actuation nasal allergy symptoms #16 grams spray,suspension (Flonase Allergy Relief) blood sugar diagnostic #200 ea 11/07/21 lancets 33 gauge (OneTouch Delica #200 ea 11/07/21 Plus Lancet) metformin 500 mg tablet 1,000 mg PO BID #360 tabs 11/07/21 albuterol sulfate 90 mcg/actuation 2 puff inhalation Q6H PRN 12/02/21 aerosol inhaler shortness of breath or wheezing #18 grams cetirizine 10 mg tablet 10 mg PO DAILY #90 tab-caps 12/16/21 glycopyrrolate 9 mcg-formoterol 1 puff inhalation BID #10.7 grams 12/25/21 4.8 mcg HFA aerosol inhaler ([employer]ator[employer]here) inhalational spacing device #2 ea 12/25/21 (Aerochamber MV spacer) omeprazole 20 mg capsule,delayed 20 mg PO DAILY #90 tab-caps 12/25/21 release aspirin 81 mg tablet,delayed 81 mg PO DAILY #0 tabs 01/20/22 release amlodipine 5 mg tablet 5 mg PO DAILY #90 tab-caps 02/03/22 atorvastatin 80 mg tablet 80 mg PO QPM #90 tabs 02/03/22 empagliflozin 10 mg tablet 10 mg PO DAILY #90 tabs 02/03/22 (Jardiance) glipizide 5 mg tablet 2.5 mg PO DAILY #45 tabs 02/03/22 lidocaine 4 % topical patch 1 patch topical DAILY PRN pain #30 02/03/22 ea torsemide 20 mg tablet 20 mg PO DAILY #90 tabs 02/03/22 cyclobenzaprine 10 mg tablet 10 mg PO TID PRN muscle spasm #60 02/24/22 tabs sacubitril 24 mg-valsartan 26 mg 1 tab PO BID #90 tabs 03/17/22 tablet (Entresto) Allergies Allergy/AdvReac Type Severity Reaction Status Date / Time codeine AdvReac Severe Cardiac Verified 04/01/22 04:46 Dysrythmia indomethacin AdvReac Intermediate Cardiac Verified 04/01/22 04:46 Dysrythmia lisinopril AdvReac cough Verified 04/01/22 04:46 General Stated Complaint: Chest Pain BELKIS: 3 Review of Systems All systems reviewed & are unremarkable except as noted in HPI and below PFSH All Active Problems (Updated 04/01/22 @ 05:48 by Hardy Benson DO) Acute exacerbation of chronic obstructive pulmonary disease (Acute) Acute exacerbation of congestive heart failure (Acute) CVA (cerebral vascular accident) (Acute ~12/2021) Heart failure with reduced ejection fraction (Chronic) Chronic obstructive pulmonary disease (Chronic) 09/2021- O2 dependent on 2 l/min (O2 sat at 83% RA) Polymyalgia rheumatica (Chronic) Type 2 diabetes mellitus (Chronic) Carotid atherosclerosis (Chronic) Essential hypertension (Chronic) GERD (gastroesophageal reflux disease) (Chronic) Pulmonary nodule (Chronic) Nicotine dependence, cigarettes, uncomplicated (Chronic) Annual LDCT Osteoarthritis of hips, bilateral (Chronic) Diabetic nephropathy (Chronic) Diabetic retinopathy (Chronic) Ventral hernia (Chronic) Generalized anxiety disorder (Chronic) Benign positional vertigo (Chronic) 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 Father Diabetes Daughter No problems noted. Daughter No problems noted. Daughter No problems noted. Daughter No problems noted. 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 3.ENT: Atraumatic external nose and ears. Moist MM. Neck: Symmetric, trachea midline, No thyromegaly. 4.CVS: +S1/S2, No murmurs or gallops. Peripheral pulses 2+ and equal in all extremities. Brisk capillary refill in all extremities. 5.RESP: Notably diminished breath sounds throughout. No wheezes rales or rhonchi though. 6.GI: Soft, Nontender/Nondistended, No hepatosplenomegaly. No guarding or rebound. 7.MSK: Normocephalic/Atraumatic, Extremities w/o deformity or ttp No cyanosis or clubbing, Normal movement of all extremities, no pitting edema. No calf tenderness. 8.Skin: Warm, Dry. No rashes or lesions. 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 Sensation grossly intact, no focal neurologic deficits. 10.Psych: (AAO) x3. Appropriate mood and affect Course Vital Signs Vital signs: Vital Signs Temperature 36.5 C 04/01/22 04:19 Pulse 103 H 04/01/22 04:19 Respiratory Rate 20 04/01/22 04:19 Blood Pressure 155/70 H 04/01/22 04:19 Pulse Oximetry 96 04/01/22 04:19 Temperature 36.5 C 04/01/22 04:19 Temperature Source Oral 04/01/22 04:19 Pulse 103 H 04/01/22 04:19 Respiratory Rate 20 04/01/22 04:19 Blood Pressure 155/70 H 04/01/22 04:19 Pulse Oximetry 96 04/01/22 04:19
[2022-04-01] MEDS: Albuterol/Ipratropium 3 ML UPD VIAL 9 ML UPD (04:35)
[2022-04-01 04:36] LABS: BE (Venous) 9 mmol/L (-2-3); HCO3 (Venous) 35 mmol/L (23-28); O2 Sat (Venous) 88 %; TCO2 (Venous) 33 mmol/L (24-29); pCO2 (Venous) 59 mmHg (41-51); pH (Venous) 7.37 (7.31-7.41); pO2 (Venous) 56 mmHg
[2022-04-01] MEDS: methylPREDNISolone SUCC 125 MG VIAL IVP (04:36)
[2022-04-01 04:38] LABS: Abs Immature Grans 0.03 10^3/uL (0.0-0.06); Absolute Basophil Count 0.02 10^3/uL (0.0-0.2); Absolute Eosinophil Count 0.19 10^3/uL (0.0-0.7); Absolute Lymphocyte Count 1.59 10^3/uL (1.2-3.4); Absolute Monocyte Count 0.82 10^3/uL (0.1-0.8); Absolute Neutrophil Count 6.36 10^3/uL (1.2-6.7); Basophils % 0.2; Eosinophils % 2.1; HGB 9.4 g/dL (11.2-15.7); Immature Grans % 0.3; Lymphocytes % 17.6; MCH 27.9 pg (27.0-33.0); MCHC 30.3 % (32.0-36.0); MCV 92 fL (80-95); MPV 10.1 fL (8.0-11.0); Monocytes % 9.1; Neutrophils % 70.7; Platelet Count 233 10^3/uL (130-400); RBC 3.37 10^6/uL (3.93-5.22); RDW 14.4 % (11.7-14.6); RDW-SD 47.8 fL; WBC 9.01 10^3/uL (4.4-10.8)
[2022-04-01 04:39] LABS: Lactate 0.8 mmol/L (0.6-1.4)
[2022-04-01 04:59] LABS: ALT 46 U/L (14-59); AST 27 U/L (15-37); Albumin 3.5 g/dL (3.4-5.0); Alkaline Phosphatase 48 U/L (46-116); BUN 27 mg/dL (7-18); Bilirubin, Total 1.2 mg/dL (0.2-1.0); CREATININE 1.4 mg/dL (0.55-1.02); Calcium 9.3 mg/dL (8.5-10.1); Chloride 103 mmol/L (98-107); Estimated GFR 36.96 (mL/min/1.73m2); Glucose 148 mg/dL (74-106); NT-proBNP 16835 pg/mL (<300); Potassium 3.9 mmol/L (3.5-5.1); Sodium 143 mmol/L (136-145); Troponin I 55 ng/L (<or=60)
[2022-04-01 05:19] LABS: COVID-19 PCR Negative (Negative); Influenza A PCR Negative (Negative); Influenza B PCR Negative (Negative); RSV PCR Negative (Negative)
[2022-04-01 05:24] LABS: Source Nasopharynx
--- NOTE | 2022-04-01 05:25 | DI.VRAD_ITS ---
PROCEDURE INFORMATION: Exam: XR Chest Exam date and time: 04/01/2022 4:57 AM Age: 71 years old Clinical indication: Cough and shortness of breath; Patient HX: Cough, SOB, chest heavy TECHNIQUE: Imaging protocol: XR of the chest. Views: 1 view. COMPARISON: CR XR RIBS LT W PA LAT CHEST 02/18/2022 11:30 AM FINDINGS: Limitations: Patient positioning is rotated. Lungs: There is extensive reticular interstitial prominence suggesting underlying chronic lung disease. COPD is suspected. There is redemonstration of scarring at the lateral lung bases bilaterally. No new region of pulmonary consolidation is seen. Pleural spaces: See Soft tissues finding. Heart/Mediastinum: The heart is probably normal in size, given rotated patient positioning. There is atherosclerotic calcification at the apex of the aortic arch. Bones/joints: There are osteophytes along the margin of the thoracic spine. Soft tissues: A left-sided pleural effusion would be difficult to exclude given overlying soft tissue and artifact partially obscuring the left costophrenic angle. No right-sided pleural effusion is seen. No pneumothorax is demonstrated. IMPRESSION: Diffuse coarsening of the interstitial pulmonary markings with scarring redemonstrated at the lateral lung bases. COPD is suspected. Within the limits of the exam, no new pulmonary consolidation is demonstrated. Dictated and Authenticated by: Jasper Guallpa MD. Ordering:RAFAEL Dash MD
[2022-04-01] MEDS: Furosemide 20 MG/2 ML VIAL IVP (05:30)
--- NOTE | 2022-04-01 06:25 | W.PM.HP.N ---
Date of service: 04/01/22 Time of Service: 05: Assessment and Plan Assessment and plan (1) Acute exacerbation of chronic obstructive pulmonary disease: Start date: 04/01/22 Status: Acute Assessment and plan: This is a 71-year-old lady who was spoken to 5 days ago presenting with worsening symptoms over the last 3 days of cough with respiratory distress. He was brought to respiratory treatments in the ED and will be admitted for exacerbation of COPD with Medrol and nebulizer treatments. There is no indication for antibiotics at this time. (2) Acute exacerbation of congestive heart failure: Start date: 04/01/22 Status: Acute Assessment and plan: Patient appears to be fluid overloaded by chest x-ray and has a history of reduced left ventricular fraction increased PA pressures with CHF on torsemide chronically. He responded to IV Lasix and this will be continued twice daily with trending labs. (3) CVA (cerebral vascular accident): Status: Acute Assessment and plan: Patient appears stable with no new neurological deficits but weak on the left which hinders self-care. PT/OT if needed during his hospital stay. Patient did just get out of rehabilitation and returned home about 1 and half months ago. (4) Heart failure with reduced ejection fraction: Status: Chronic Assessment and plan: Patient does have biventricular heart failure by history and updated echocardiogram not necessary at this time. Patient is a DNR/DNI. (5) Type 2 diabetes mellitus: Status: Chronic Assessment and plan: Glucometer before meals and at bedtime with short acting insulin coverage. Diabetic diet. (6) Nicotine dependence, cigarettes, uncomplicated: Status: Chronic Assessment and plan: Patient recently quit smoking and will be offered NicoDerm patch if needed. Long-term she should quit smoking. History of Present Illness History of Present Illness Chief Complaint: 3-day history of increasing dyspnea with cough Narrative: This is a 71-year-old female patient who swelled up to 5 days ago and has had frequent admissions for respiratory symptoms and chest tightness but no chest pain She has a 3-day history of worsening symptoms of cough with slight sputum production but without hemoptysis. She denies any fever or chills. She is status post right CVA with weakness over her left side having been in rehabilitation until mid January 2022. At home she has been taking care of herself fairly well but continues to smoke tobacco. She has poor insight into her medical problems. She is a DNR/DNI. She responded to treatment in the ED and will be hospitalized for exacerbation of COPD but also may have an element of CHF with response to diuretics. She is a diabetic. She has a history of CHF on torsemide chronically and did respond to IV Lasix. She will be admitted for exacerbation of COPD and CHF exacerbation. She is a DNR/DNI. Review of Systems Narrative: 13 point review of systems otherwise unrevealing or stable. Patient is chronically ill and does not take care of herself well with question of compliance. PFSH All Active Problems Chronic kidney disease (Chronic) Acute exacerbation of chronic obstructive pulmonary disease (Acute) Acute exacerbation of congestive heart failure (Acute) CVA (cerebral vascular accident) (Acute ~12/2021) Heart failure with reduced ejection fraction (Chronic) Chronic obstructive pulmonary disease (Chronic) 09/2021- O2 dependent on 2 l/min (O2 sat at 83% RA) Polymyalgia rheumatica (Chronic) Type 2 diabetes mellitus (Chronic) Carotid atherosclerosis (Chronic) Essential hypertension (Chronic) GERD (gastroesophageal reflux disease) (Chronic) Pulmonary nodule (Chronic) Nicotine dependence, cigarettes, uncomplicated (Chronic) Annual LDCT Osteoarthritis of hips, bilateral (Chronic) Diabetic nephropathy (Chronic) Diabetic retinopathy (Chronic) Ventral hernia (Chronic) Generalized anxiety disorder (Chronic) Benign positional vertigo (Chronic) 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 Father Diabetes Daughter No problems noted. Daughter No problems noted. Daughter No problems noted. Daughter No problems noted. 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 Pets and animals: Yes Pets and animals: cat(s) Current gender identity: female What type of physical activity do you participate in: none Irma/Oriental Orthodox: Mandaen Special irma needs: No Do you feel safe at home: Yes Do you feel safe in your relationship?: Yes Meds Allergies and Home Medications Allergies Allergy/AdvReac Type Severity Reaction Status Date / Time codeine AdvReac Severe Cardiac Verified 04/01/22 04:46 Dysrythmia indomethacin AdvReac Intermediate Cardiac Verified 04/01/22 04:46 Dysrythmia lisinopril AdvReac cough Verified 04/01/22 04:46 Home Medications Medication Instructions Recorded Confirmed Type blood-glucose meter (SMCprosuch #1 ea 11/26/20 03/10/22 Rx Ultra2 Meter kit) fluticasone propionate 50 2 spray intranasal DAILY PRN 04/15/21 04/01/22 Rx mcg/actuation nasal allergy symptoms #16 grams spray,suspension (Flonase Allergy Relief) cholecalciferol (vitamin D3) 25 25 mcg PO DAILY 08/30/21 04/01/22 History mcg (1,000 unit) capsule (Vitamin D3) blood sugar diagnostic #200 ea 11/07/21 03/10/22 Rx lancets 33 gauge (OneTouch Delica #200 ea 11/07/21 03/10/22 Rx Plus Lancet) metformin 500 mg tablet 1,000 mg PO BID #360 tabs 11/07/21 04/01/22 Rx albuterol sulfate 90 mcg/actuation 2 puff inhalation Q6H PRN 12/02/21 04/01/22 Rx aerosol inhaler shortness of breath or wheezing #18 grams cetirizine 10 mg tablet 10 mg PO DAILY #90 tab-caps 12/16/21 04/01/22 Rx acetaminophen 500 mg tablet 1,000 mg PO Q6H PRN 12/23/21 04/01/22 History calcium carbonate 600 mg calcium 600 mg PO BID 12/23/21 04/01/22 History (1,500 mg) tablet (Calcium) prednisone 10 mg tablet 10 mg PO DAILY 12/23/21 04/01/22 History glycopyrrolate 9 mcg-formoterol 1 puff inhalation BID #10.7 grams 12/25/21 04/01/22 Rx 4.8 mcg HFA aerosol inhaler (Bevespi Aerosphere) inhalational spacing device #2 ea 12/25/21 03/10/22 Rx (Aerochamber MV spacer) omeprazole 20 mg capsule,delayed 20 mg PO DAILY #90 tab-caps 12/25/21 04/01/22 Rx release aspirin 81 mg tablet,delayed 81 mg PO DAILY #0 tabs 01/20/22 04/01/22 Rx release amlodipine 5 mg tablet 5 mg PO DAILY #90 tab-caps 02/03/22 04/01/22 Rx atorvastatin 80 mg tablet 80 mg PO QPM #90 tabs 02/03/22 04/01/22 Rx empagliflozin 10 mg tablet 10 mg PO DAILY #90 tabs 02/03/22 04/01/22 Rx (Jardiance) glipizide 5 mg tablet 2.5 mg PO DAILY #45 tabs 02/03/22 04/01/22 Rx lidocaine 4 % topical patch 1 patch topical DAILY PRN pain #30 02/03/22 04/01/22 Rx ea torsemide 20 mg tablet 20 mg PO DAILY #90 tabs 02/03/22 04/01/22 Rx cyclobenzaprine 10 mg tablet 10 mg PO TID PRN muscle spasm #60 02/24/22 03/10/22 Rx tabs sacubitril 24 mg-valsartan 26 mg 1 tab PO BID #90 tabs 03/17/22 04/01/22 Rx tablet (Entresto) Exam Narrative Exam Narrative: General: Patient appears older than stated age with flattened affect and agitated mood during exam. She is alert and oriented to person and place at least. No acute distress though easily agitated. HEENT: Normocephalic, coarsened facial features, eyes with pupils equal and reactive light symmetrically, extraocular movement intact and sclera anicteric. Oropharynx with dry mucosa. Neck: Supple without JVD. Neck: Stiff posture without CVA tenderness. Lungs: Bronchovesicular breath sounds diffusely with no focalized rales or rhonchi and slight expiratory wheeze. Increased expiratory phase. Heart: Regular rate and rhythm with no appreciable murmur or gallop. Abdomen: Obese contour, soft nontender palpation with no palpable hepatosplenomegaly. Genitalia/rectal: Exam deferred. Extremities: Without clubbing, cyanosis or grossly pitting edema. Nonpitting edema of the left lower extremity especially with previous stroke affecting left lower extremity. Peripheral pulses decreased but intact. Skin: Pale, warm and dry. Neuro: Cranial nerves II through XII grossly intact, no focalizing motor deficits. Psych: Flattened affect with depressed mood and easily agitated, no abnormal thought processes. Remote and recent memory appear to be grossly intact. Results Imaging Imaging Studies: Chest x-ray interpreted by ED physician is having increased interstitial markings as with fluid overload but no pulmonary infiltrates noted. Labs Result diagrams: 04/01/22 04:30 04/01/22 12:28 Labs: Laboratory Results - last 24 hr 04/01/22 04/01/22 04/01/22 04:30 04:30 04:30 WBC RBC Hgb Hct MCV MCH MCHC RDW Plt Count MPV Immature Gran % Neutrophils % Lymphocytes % Monocytes % Eosinophils % Basophils % Nucleated RBC % Absolute Neutrophils Absolute Lymphocytes Absolute Monocytes Absolute Eosinophils Absolute Basophils VBG pH VBG pCO2 VBG pO2 VBG HCO3 VBG Total CO2 VBG O2 Saturation VBG Base Excess VBG Lactate 0.8 Sodium 143 Potassium 3.9 Chloride 103 Carbon Dioxide 33.0 H Anion Gap 7.0 BUN 27 H Creatinine 1.4 H Estimated GFR/1.73 m2 36.96 Glucose 148 H Calcium 9.3 Total Bilirubin 1.2 H AST 27 ALT 46 Alkaline Phosphatase 48 Troponin I 55 NT-Pro-B Natriuret Pep 86302 H Total Protein 7.0 Albumin 3.5 COVID-19 Source Nasopharynx SARS-CoV-2 (PCR) Negative Influenza Type A (PCR) Negative Influenza Type B (PCR) Negative RSV (PCR) Negative 04/01/22 04/01/22 04:30 04:30 WBC 9.01 RBC 3.37 L Hgb 9.4 L Hct 31.0 L MCV 92 MCH 27.9 MCHC 30.3 L RDW 14.4 Plt Count 233 MPV 10.1 Immature Gran % 0.3 Neutrophils % 70.7 Lymphocytes % 17.6 Monocytes % 9.1 Eosinophils % 2.1 Basophils % 0.2 Nucleated RBC % 0.0 Absolute Neutrophils 6.36 Absolute Lymphocytes 1.59 Absolute Monocytes 0.82 H Absolute Eosinophils 0.19 Absolute Basophils 0.02 VBG pH 7.37 VBG pCO2 59 H VBG pO2 56 VBG HCO3 35 H VBG Total CO2 33 H VBG O2 Saturation 88 VBG Base Excess 9 H VBG Lactate Sodium Potassium Chloride Carbon Dioxide Anion Gap BUN Creatinine Estimated GFR/1.73 m2 Glucose Calcium Total Bilirubin AST ALT Alkaline Phosphatase Troponin I NT-Pro-B Natriuret Pep Total Protein Albumin COVID-19 Source SARS-CoV-2 (PCR) Influenza Type A (PCR) Influenza Type B (PCR) RSV (PCR) Last Vital Signs Temp 36.5 C 04/01/22 04:19 Pulse 100 H 04/01/22 05:30 Resp 33 H 04/01/22 05:30 BP 144/73 H 04/01/22 05:30 Pulse Ox 93 04/01/22 05:30
[2022-04-01] MEDS: Calcium Carbonate 1.5 GM TAB PO ×2 (08:17→20:24)
[2022-04-01] MEDS: Cholecalciferol (Vitamin D3) 1,000 UNIT TAB 1000 UNITS PO (08:18)
[2022-04-01] MEDS: Aspirin E.C. 81 MG TABEC PO (08:18)
[2022-04-01] MEDS: Sacubitril/Valsartan 24 mg/26 mg TAB 1 EACH PO ×2 (08:18→20:24)
[2022-04-01] MEDS: Omeprazole 20 MG CAPCR PO (08:18)
[2022-04-01] MEDS: Empaglifozin 10 MG TAB PO (08:18)
[2022-04-01] MEDS: Cetirizine 10 MG TAB PO (08:18)
[2022-04-01] MEDS: Furosemide 40 MG/4 ML VIAL IVP ×2 (08:19→16:17)
[2022-04-01] MEDS: Normal Saline Flush 10 ML SYR IVP ×2 (08:19→13:06)
[2022-04-01] MEDS: Heparin 5,000 UNITS/ML VIAL 5000 UNITS SC ×3 (08:19→23:11)
[2022-04-01] MEDS: Insulin Aspart 300 UNITS/3 ML PEN SC ×4 (08:19→21:54)
--- NOTE | 2022-04-01 09:41 | INITIAL_ITS ---
- If Service Date Differs Date of service: 04/01/22 Time of Service: 09:41 Care Management Initial Assess REASON FOR HOSPITALIZATION:: Acute exacerbation of COPD PAST MEDICAL HISTORY/PAST SURGICAL HISTORY:: Acute exacerbation of chronic obstructive pulmonary disease (Acute). Acute exacerbation of congestive heart failure (Acute). CVA (cerebral vascular accident) (Acute ~12/2021). Heart failure with reduced ejection fraction (Chronic). Chronic obstructive pulmonary disease (Chronic). 09/2021- O2 dependent on 2 l/min (O2 sat at 83% RA). Polymyalgia rheumatica (Chronic). Type 2 diabetes mellitus (Chronic). Carotid atherosclerosis (Chronic). Essential hypertension (Chronic). GERD (gastroesophageal reflux disease) (Chronic). Pulmonary nodule (Chronic). Nicotine dependence, cigarettes, uncomplicated (Chronic). Annual LDCT. Osteoarthritis of hips, bilateral (Chronic). Diabetic nephropathy (Chronic). Diabetic retinopathy (Chronic). Ventral hernia (Chronic). Generalized anxiety disorder (Chronic). Benign positional vertigo (Chronic). 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 Medical History . Iron deficiency anemia. Surgical History . History of esophagogastroduodenoscopy (EGD) (07/30/18). S/P cholecystectomy. S/P colonoscopy (07/30/18). S/P tonsillectomy PREVIOUS FUNCTIONAL STATUS/SOCIAL/FAMILY SUPPORTS:: Beth lives alone with her cat Ayaan in an apartment in [facility]. She has 4 daughters and nine grandchildren and 6 great grandchildren. Only one daughter lives locally, the rest are out of state. Beth does not receive any community services. She has a Life Alert and is oxygen dependent on 2L. CURRENT FUNCTIONAL STATUS:: Beth was sitting up in a chair when CM met with her. She engaged easily with CM, well known to her from a previous hospitalization. Beth stated that she is feeling better now, but that she could barely breathe when she came to the hospital. She explained that her CHF was responsible for this and that she was surprised because her ankles didn't swell as they usually do when her CHF is not well controlled. Beth has many questions about CHF. CM provided her with one of the education manuals that explains CHF care and treatment, which she appreciated. ADVANCE DIRECTIVES:: On file. Lida LIAO Has patient been provided with info about the portal/API?: Yes Did the patient sign up for the portal?: Yes (previously) CODE STATUS:: DNR/DNI INSURANCE COVERAGE / FINANCIAL ISSUES:: medicare. medicaid CURRENT HOME/COMMUNITY SERVICES/EQUIPMENT:: home oxygen. walker. bath chair. raised toilet seat. tray for her walker. tower to assist with getting in and out of bed. Beth is also connected with [place] [facility] and Gayla Kelsey is her caseworkerbusiness line manager PHYSICIAN:: Katherine Andre POTENTIAL DISCHARGE NEEDS:: follow up with PCP and plan of care PATIENT/FAMILY EDUCATION NEEDS:: Review of discharge instructions, limitations, follow up plan, medications, discuss Ask Me Three TRANSPORTATION:: via private vehicle with family PLAN:: Beth will likely be discharged home with no new services, although she may benefir from home health PT again. She will folow up with her PCP and plan of care and transport with family. CM will continue to support Beth and assess for ongoing discharge needs.
--- NOTE | 2022-04-01 11:35 | HPE_ITS ---
Date of service: 04/01/22 Time of Service: 10:36 Assessment and Plan Assessment and plan (1) Acute exacerbation of chronic obstructive pulmonary disease: Status: Acute Assessment and plan: will continue steroids, down-step to oral burst continue respiratory inhalers (2) Acute exacerbation of congestive heart failure: Status: Acute Assessment and plan: receiving IV lasix daily weights, I&O continue jariance, tieshasto, echo from December 2021: Conclusion Mildly dilated left ventricle.? Normal left ventricular wall thickness.? Estimated ejection fraction is 35% with global hypokinesis The right ventricle is dilated and hypocontractile Both atria are moderately enlarged There is mild aortic valve sclerosis without stenosis or regurgitation Mild mitral annular calcification.? Moderate mitral regurgitation Normal tricuspid valve with mild regurgitation.? Estimated right ventricular systolic pressure is 44 mmHg (3) Type 2 diabetes mellitus: Status: Chronic Assessment and plan: anticipate hyperglycemia in setting of increased steroid dosing. carb controlled diet increase scale from sensitive to resistant last A1C in January 21 was 7.5 hold metformin and glipizide while hospitalized add lantus while hospitalized (4) Polymyalgia rheumatica: Status: Chronic Assessment and plan: on daily prednisone 15 mg daily, will resume when burst complete (5) Essential hypertension: Status: Chronic Assessment and plan: monitor and adjust meds as needed cotninue home medication (6) GERD (gastroesophageal reflux disease): Status: Chronic Assessment and plan: continue PPI (7) Chronic kidney disease: Status: Chronic Assessment and plan: creatinine at baseline avoid nephrotoxic drugs, renal dosing monitor discussed with DR Guardado History of Present Illness History of Present Illness Chief Complaint: shortness of breath Review of Systems All systems reviewed & are unremarkable except as noted in HPI and below Cardiovascular Cardiovascular: Denies chest pain and Reports dyspnea Respiratory Respiratory: Reports dyspnea PFSH All Active Problems Chronic kidney disease (Chronic) Acute exacerbation of chronic obstructive pulmonary disease (Acute) Acute exacerbation of congestive heart failure (Acute) CVA (cerebral vascular accident) (Acute ~12/2021) Heart failure with reduced ejection fraction (Chronic) Chronic obstructive pulmonary disease (Chronic) 09/2021- O2 dependent on 2 l/min (O2 sat at 83% RA) Polymyalgia rheumatica (Chronic) Type 2 diabetes mellitus (Chronic) Carotid atherosclerosis (Chronic) Essential hypertension (Chronic) GERD (gastroesophageal reflux disease) (Chronic) Pulmonary nodule (Chronic) Nicotine dependence, cigarettes, uncomplicated (Chronic) Annual LDCT Osteoarthritis of hips, bilateral (Chronic) Diabetic nephropathy (Chronic) Diabetic retinopathy (Chronic) Ventral hernia (Chronic) Generalized anxiety disorder (Chronic) Benign positional vertigo (Chronic) 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 Father Diabetes Daughter No problems noted. Daughter No problems noted. Daughter No problems noted. Daughter No problems noted. 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 Pets and animals: Yes Pets and animals: cat(s) Current gender identity: female What type of physical activity do you participate in: none Irma/Scientology: Buddhist Special irma needs: No Do you feel safe at home: Yes Do you feel safe in your relationship?: Yes Meds Allergies and Home Medications Allergies Allergy/AdvReac Type Severity Reaction Status Date / Time codeine AdvReac Severe Cardiac Verified 04/01/22 04:46 Dysrythmia indomethacin AdvReac Intermediate Cardiac Verified 04/01/22 04:46 Dysrythmia lisinopril AdvReac cough Verified 04/01/22 04:46 Home Medications Medication Instructions Recorded Confirmed Type blood-glucose meter (Structure Vision #1 ea 11/26/20 03/10/22 Rx Ultra2 Meter kit) fluticasone propionate 50 2 spray intranasal DAILY PRN 04/15/21 04/01/22 Rx mcg/actuation nasal allergy symptoms #16 grams spray,suspension (Flonase Allergy Relief) cholecalciferol (vitamin D3) 25 25 mcg PO DAILY 08/30/21 04/01/22 History mcg (1,000 unit) capsule (Vitamin D3) blood sugar diagnostic #200 ea 11/07/21 03/10/22 Rx lancets 33 gauge (OneTouch Delica #200 ea 11/07/21 03/10/22 Rx Plus Lancet) metformin 500 mg tablet 1,000 mg PO BID #360 tabs 11/07/21 04/01/22 Rx albuterol sulfate 90 mcg/actuation 2 puff inhalation Q6H PRN 12/02/21 04/01/22 Rx aerosol inhaler shortness of breath or wheezing #18 grams cetirizine 10 mg tablet 10 mg PO DAILY #90 tab-caps 12/16/21 04/01/22 Rx acetaminophen 500 mg tablet 1,000 mg PO Q6H PRN 12/23/21 04/01/22 History calcium carbonate 600 mg calcium 600 mg PO BID 12/23/21 04/01/22 History (1,500 mg) tablet (Calcium) glycopyrrolate 9 mcg-formoterol 1 puff inhalation BID #10.7 grams 12/25/21 04/01/22 Rx 4.8 mcg HFA aerosol inhaler (Bevespi Aerosphere) inhalational spacing device #2 ea 12/25/21 03/10/22 Rx (Aerochamber MV spacer) omeprazole 20 mg capsule,delayed 20 mg PO DAILY #90 tab-caps 12/25/21 04/01/22 Rx release aspirin 81 mg tablet,delayed 81 mg PO DAILY #0 tabs 01/20/22 04/01/22 Rx release amlodipine 5 mg tablet 5 mg PO DAILY #90 tab-caps 02/03/22 04/01/22 Rx atorvastatin 80 mg tablet 80 mg PO QPM #90 tabs 02/03/22 04/01/22 Rx empagliflozin 10 mg tablet 10 mg PO DAILY #90 tabs 02/03/22 04/01/22 Rx (Jardiance) glipizide 5 mg tablet 2.5 mg PO DAILY #45 tabs 02/03/22 04/01/22 Rx lidocaine 4 % topical patch 1 patch topical DAILY PRN pain #30 02/03/22 04/01/22 Rx ea torsemide 20 mg tablet 20 mg PO DAILY #90 tabs 02/03/22 04/01/22 Rx cyclobenzaprine 10 mg tablet 10 mg PO TID PRN muscle spasm #60 02/24/22 03/10/22 Rx tabs sacubitril 24 mg-valsartan 26 mg 1 tab PO BID #90 tabs 03/17/22 04/01/22 Rx tablet (Entresto) prednisone 10 mg tablet 40 mg PO DAILY #0 tabs 04/02/22 04/01/22 Rx prednisone 20 mg tablet 40 mg PO DAILY #30 tabs 04/02/22 Rx Exam Const General: cooperative, comfortable and no acute distress Nutritional Appearance: average body habitus Orientation: alert, awake and oriented x3 HENMT Head: normal to inspection, normocephalic and atraumatic Eyes General: appearance normal, both eyes and all related structures Resp Effort & Inspection: normal respiratory effort Auscultation: clear to auscultation bilaterally Cardio Rate: regular rate Rhythm: regular rhythm GI Inspection: normal to inspection Palpation: soft Auscultation: normal bowel sounds Skin General skin exam: no rashes or lesions noted Neuro General: patient alert, patient awake, patient oriented x3, moves all extremities and focal motor deficits present Cranial Nerves: PERRL, no nystagmus, facial strength normal and tongue midline Cognition: normal cognition Speech: speech normal Gait: gait assisted Motor: strength abnormal (4/5 on left upper and 3/5 left lower, right 5/5) Sensory Exam: no sensory deficits noted Extrem General: no pedal edema Psych Mental Status: mental status grossly normal Speech and Movement: speech and movement normal Mood: congruent mood Affect: normal affect Results Labs Result diagrams: 04/02/22 06:00 04/02/22 12:15 Labs: Laboratory Results - last 24 hr 04/01/22 04/01/22 04/01/22 04:30 04:30 04:30 WBC RBC Hgb Hct MCV MCH MCHC RDW Plt Count MPV Immature Gran % Neutrophils % Lymphocytes % Monocytes % Eosinophils % Basophils % Nucleated RBC % Absolute Neutrophils Absolute Lymphocytes Absolute Monocytes Absolute Eosinophils Absolute Basophils VBG pH VBG pCO2 VBG pO2 VBG HCO3 VBG Total CO2 VBG O2 Saturation VBG Base Excess VBG Lactate 0.8 Sodium 143 Potassium 3.9 Chloride 103 Carbon Dioxide 33.0 H Anion Gap 7.0 BUN 27 H Creatinine 1.4 H Estimated GFR/1.73 m2 36.96 Glucose 148 H Calcium 9.3 Total Bilirubin 1.2 H AST 27 ALT 46 Alkaline Phosphatase 48 Troponin I 55 NT-Pro-B Natriuret Pep 85549 H Total Protein 7.0 Albumin 3.5 COVID-19 Source Nasopharynx SARS-CoV-2 (PCR) Negative Influenza Type A (PCR) Negative Influenza Type B (PCR) Negative RSV (PCR) Negative 04/01/22 04/01/22 04:30 04:30 WBC 9.01 RBC 3.37 L Hgb 9.4 L Hct 31.0 L MCV 92 MCH 27.9 MCHC 30.3 L RDW 14.4 Plt Count 233 MPV 10.1 Immature Gran % 0.3 Neutrophils % 70.7 Lymphocytes % 17.6 Monocytes % 9.1 Eosinophils % 2.1 Basophils % 0.2 Nucleated RBC % 0.0 Absolute Neutrophils 6.36 Absolute Lymphocytes 1.59 Absolute Monocytes 0.82 H Absolute Eosinophils 0.19 Absolute Basophils 0.02 VBG pH 7.37 VBG pCO2 59 H VBG pO2 56 VBG HCO3 35 H VBG Total CO2 33 H VBG O2 Saturation 88 VBG Base Excess 9 H VBG Lactate Sodium Potassium Chloride Carbon Dioxide Anion Gap BUN Creatinine Estimated GFR/1.73 m2 Glucose Calcium Total Bilirubin AST ALT Alkaline Phosphatase Troponin I NT-Pro-B Natriuret Pep Total Protein Albumin COVID-19 Source SARS-CoV-2 (PCR) Influenza Type A (PCR) Influenza Type B (PCR) RSV (PCR) Last Vital Signs Temp 36.6 C 04/01/22 07:25 Pulse 104 H 04/01/22 07:25 Resp 18 04/01/22 07:25 BP 140/61 04/01/22 07:25 Pulse Ox 94 04/01/22 07:25
[2022-04-01 12:46] LABS: Glucose 460 mg/dL (74-106)
[2022-04-01] MEDS: Albuterol/Ipratropium 3 ML UPD VIAL UPD ×2 (12:53→17:59)
--- NOTE | 2022-04-01 16:16 | W.INDIABCONS ---
Date of service: 04/01/22 Time of Service: 15:16 Diabetes Inpatient Consult Reason for Visit: dm DESCRIPTION/ASSESSMENT: Met with Beth today. She was admitted with COPD with PMH: CHF, DM2 and CKD. Most recent A1C: 7.5% (december 2021). Home DM meds: jardiance 10 mg, glipizide 5 mg, metformin 1000 mg BID. Reports good glycemic control on current Dm regime. FOllowing diabetic diet with good intake. Not considered at nutritional risk. PLAN: will continue to follow and support. Time Spent in Nutritional Counseling and Treatment: 10
[2022-04-01] MEDS: Atorvastatin 40 MG TAB 80 MG PO (20:24)
[2022-04-01] MEDS: Acetaminophen 325 MG TAB 650 MG PO (20:24)
[2022-04-01] MEDS: Insulin Glargine 300 UNITS/3 ML PEN 15 UNITS SC (21:53)
[2022-04-02] VITALS (9 sets, daily range): BP systolic 113–123; BP diastolic 67–74; PULSE 89–102; RESP 1–18; TEMP 35.9–36.3; O2SAT 92–96
[2022-04-02] MEDS: Normal Saline Flush 10 ML SYR IVP ×2 (00:49→07:55)
[2022-04-02 06:25] LABS: Abs Immature Grans 0.02 10^3/uL (0.0-0.06); Absolute Basophil Count 0.01 10^3/uL (0.0-0.2); Absolute Eosinophil Count 0.07 10^3/uL (0.0-0.7); Absolute Lymphocyte Count 1.45 10^3/uL (1.2-3.4); Basophils % 0.1; Eosinophils % 0.6; HCT 30.2 % (36.0-46.0); HGB 9.1 g/dL (11.2-15.7); Immature Grans % 0.2; Lymphocytes % 12.9; MCH 27.5 pg (27.0-33.0); MCHC 30.1 % (32.0-36.0); MCV 91 fL (80-95); MPV 10.6 fL (8.0-11.0); Monocytes % 10.7; Neutrophils % 75.5; Platelet Count 239 10^3/uL (130-400); RBC 3.31 10^6/uL (3.93-5.22); RDW 14.4 % (11.7-14.6); RDW-SD 47.2 fL; WBC 11.26 10^3/uL (4.4-10.8)
[2022-04-02 06:37] LABS: ALT 38 U/L (14-59); AST 19 U/L (15-37); Albumin 3.5 g/dL (3.4-5.0); Alkaline Phosphatase 50 U/L (46-116); BUN 46 mg/dL (7-18); Bilirubin, Total 0.9 mg/dL (0.2-1.0); CREATININE 1.9 mg/dL (0.55-1.02); Calcium 9.3 mg/dL (8.5-10.1); Chloride 100 mmol/L (98-107); Estimated GFR 25.98 (mL/min/1.73m2); Glucose 172 mg/dL (74-106); Potassium 3.7 mmol/L (3.5-5.1); Sodium 141 mmol/L (136-145); Total Protein 6.9 g/dL (6.4-8.2)
[2022-04-02] MEDS: Albuterol/Ipratropium 3 ML UPD VIAL UPD ×2 (07:19→11:30)
[2022-04-02] MEDS: Heparin 5,000 UNITS/ML VIAL 5000 UNITS SC (07:54)
[2022-04-02] MEDS: Omeprazole 20 MG CAPCR PO (07:54)
[2022-04-02] MEDS: Calcium Carbonate 1.5 GM TAB PO (07:54)
[2022-04-02] MEDS: predniSONE 20 MG TAB 40 MG PO (07:54)
[2022-04-02] MEDS: Cholecalciferol (Vitamin D3) 1,000 UNIT TAB 1000 UNITS PO (07:54)
[2022-04-02] MEDS: Cetirizine 10 MG TAB PO (07:54)
[2022-04-02] MEDS: Furosemide 40 MG/4 ML VIAL IVP (07:54)
[2022-04-02] MEDS: Sacubitril/Valsartan 24 mg/26 mg TAB 1 EACH PO (07:54)
[2022-04-02] MEDS: Aspirin E.C. 81 MG TABEC PO (07:54)
[2022-04-02] MEDS: Empaglifozin 10 MG TAB PO (07:54)
[2022-04-02] MEDS: Insulin Aspart 300 UNITS/3 ML PEN SC ×2 (07:55→12:51)
--- NOTE | 2022-04-02 10:01 | IN_ITS ---
Date of service: 04/02/22 Time of Service: 10:01 PT Notes Visit Reasons: COPD Exacerbation,CHF Exacerbation Physical Therapy Inpatient Initial Evaluation Date: 04/02/2022 Referring Doctor:Geoffrey Sandra NP PT Orders: PT CONSULT: Eval/Treat Precautions: Activity as tolerated. On 2 L of oxygen via NC. Patient Profile/Admitting Diagnosis:? Patient is a 71-year-old female who presented to the ED on 04/01/2022 due to complaints of chest heaviness and shortness of breath. Patient is diagnosed with COPD exacerbation, CHF exacerbation, polymayalgia rheumatica, essential HTN, and GERD, and Type II DM. PMHX: All Active Problems? Chronic kidney disease (Chronic) Acute exacerbation of chronic obstructive pulmonary disease (Acute) Acute exacerbation of congestive heart failure (Acute) CVA (cerebral vascular accident) (Acute ~12/2021) Heart failure with reduced ejection fraction (Chronic) Chronic obstructive pulmonary disease (Chronic) 09/2021- O2 dependent on 2 l/min (O2 sat at 83% RA) Polymyalgia rheumatica (Chronic) Type 2 diabetes mellitus (Chronic) Carotid atherosclerosis (Chronic) Essential hypertension (Chronic) GERD (gastroesophageal reflux disease) (Chronic) Pulmonary nodule (Chronic) Nicotine dependence, cigarettes, uncomplicated (Chronic) Annual LDCTOsteoarthritis of hips, bilateral (Chronic) Diabetic nephropathy (Chronic) Diabetic retinopathy (Chronic) Ventral hernia (Chronic) Generalized anxiety disorder (Chronic) Benign positional vertigo (Chronic) 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 Iron deficiency anemia Surgical History? History of esophagogastroduodenoscopy (EGD) (07/30/18) S/P cholecystectomy S/P colonoscopy (07/30/18) S/P tonsillectomy Social History/Home Situation: Patient lives alone at the [address] here in [place] with a ramp to enter.? She now has a pole installed close to her bed to facilitate safe transfers and short distance walking. Home is much more handicap- accessible with assistance from [employer]. She has a basement but she stresses that she does not need to go down as she has everything she needs on the main floor of the apartment.? Modified independent with all mobility ADL performance using FWW. On chronic oxygen supplementation using 2L/min. Equipment Owned/DME: FWW, 4WW Subjective: Feels a lot better but still reported fatigue after walking about 50 feet for this evaluation. Minimal shortness of breath that resolved with rest. Indicates that the farthest she needs to walk at home is about 50 feet at a time and that she has chairs along the way that she can sit on. Objective: General Observation: Telemetry monitoring in place.?Mild swelling to bilateral legs. Mental Status: Alert and oriented x 4 Pain: Denies headache, chest pain, and lightheadedness Vital Signs: Oxygen saturation stayed above 89% on 2L/min during and after ambulation activity ROM: Right Upper Extremity: ? Shoulder Flexion WFL. Shoulder abduction WFL. Elbow flexion WFL. Wrist flexion WFL. Opening and closing of hand WFL. Left Upper Extremity:? Shoulder Flexion allows only up to 90 degrees. Shoulder abduction allows only up to 80 degrees. Elbow flexion WFL. Wrist flexion WFL. Opening and closing of hand WFL. Right Lower Extremity: Hip flexion WFL. Hip abduction WFL. Knee flexion WFL. Ankle dorsiflexion to neutral only. Ankle plantarflexion WFL. Left Lower Extremity: Hip flexion unable to bend beyond 90 due to left hip pain. Hip abduction WFL. Knee flexion WFL. Ankle dorsiflexion to neutral only. Ankle plantarflexion WFL. Strength: Right Upper Extremity: Shoulder flexors 4-/5. Shoulder abductors 4-/5. Elbow flexors 4/5. Elbow extensors 4/5. Pine[employer] Plant[employer] Manager weak but functional. Left Upper Extremity: Shoulder flexors 3-/5. Shoulder abductors 3-/5. Elbow flexors 4-/5. Elbow extensors 4-/5. Pine[employer] Plantation Manager weak but functional. Right Lower Extremity: Hip flexors 4/5. Hip abductors 4/5. Knee flexors 4/5. Knee extensors 4/5. Ankle dorsiflexors 3-/5. Ankle plantarflexors 4-/5. Left Lower Extremity:Hip flexors 3-/5. Hip abductors 3-/5. Knee flexors 3/5. Knee extensors 3/5. Ankle dorsiflexors 3-/5. Ankle plantarflexors 4/5. Sensation: Intact as to pain and pressure on bilateral lower extremities Bed Mobility/Transfers: Rolling independent Supine to sit SBA independent Sit to stand independent Stand to sit independent Bed to chair? independent Chair to bed independent Gait: Patient tolerated level surface ambulation of 50 feet using front-wheeled walker with stand by assist.? Reciprocal step through gait pattern.? Terri decreased.? Denies headache, chest pain, and dizziness. O2 saturation above 89% on 2 L/min. Balance: Static Sitting: Normal Dynamic Sitting: Normal Static Standing: Fair Dynamic Standing: Fair Special Tests: Mobility Limitations Standardized Measure [facility] 6 clicks Basic Mobility Inpatient Short Form: Raw Score: 23? CMS Score: 11% deficit? ? ? Informed Consent/Education:? Patient instructed in purpose of PT consult and plan of care. Assessment: Patient is a 71-year-old female who presented to the ED on 04/01/2022 due to complaints of chest heaviness and shortness of breath. Patient is diagnosed with COPD exacerbation, CHF exacerbation, polymayalgia rheumatica, essential HTN, and GERD, and Type II DM. Patient presents with clinical signs and symptoms consistent with current/admitting diagnoses that have resulted to mobility limitations and gait instabilityas demonstrated by the following impairment level findings: 1.? Decreased strength to B LE major muscle groups 2.? Impaired standing balance 3.? Impaired activity tolerance 4.? Limitation of joint range of motion in left shoulder and left hip 5. Shortness of breath Impairments are contributing to the following functional limitations: 1.? Inability to safely ambulate without assistive device 2.? Increase completion time for mobility ADL performance 3.? Increased fall risk Patient is assessed as a 24205 moderate complexity based on the following: History: 69-year-old female with impairment level findings, functional limitations, and [facility] deficit score of 36% Examination: Demonstrable impairment in strength, balance, and activity tolerance with underlying impairments and functional limitations as documented above Presentation: Evolving Decision Makin moderate complexity Goals: N/A. PT evaluation only and one treatment session only for functional mobility training for safe discharge planning/recommendations. Plan of Care/Treatment Plan: N/A. PT evaluation only and one treatment session only for functional mobility training for safe discharge planning/recommendations. DISCHARGE RECOMMENDATIONS: [] ? Home with no services [] [X] ? Home with services.? Patient will benefit from home health PT services in order to progress mobility level using least restrictive assistive ambulatory device, assess home safety, identify additional equipment needs, and establish a functional maintenance program that will increase ability of patient to remain at home. [] ? Home with outpatient PT [] [] ? SNF for continued rehabilitation [] [] ? [facility] [] follow-up no [] ? SNF versus LTC based on ability to participate and progress [] TREATMENT CODE/TIME: 45844 x 20 minutes,? 08509 x 11 minutes beginning at 10:01 PM. Thank you very much for this referral. Nahed Miller PT, DPT, CLT [facility] [place], [place]
--- NOTE | 2022-04-02 11:23 | W.PM.DS.N ---
Date of service: 04/02/22 Time of Service: 10:23 DS: Diagnosis Discharge Diagnosis (1) Acute exacerbation of chronic obstructive pulmonary disease: Status: Acute (2) Acute exacerbation of congestive heart failure: Status: Acute (3) CVA (cerebral vascular accident): Status: Acute (4) Heart failure with reduced ejection fraction: Status: Chronic (5) Type 2 diabetes mellitus: Status: Chronic (6) Nicotine dependence, cigarettes, uncomplicated: Status: Chronic Discharge Plan Disposition Patient Disposition: HOME W/HOME HEALTH SERVICE Condition: Improving Discharge Details Reason For Visit: COPD Exacerbation,CHF Exacerbation Admit Date/Time: 04/01/22 05:42 Admit Provider: Selvin Jorge Attending Provider: Selvin Jorge Primary Care Provider: Katherine Andre [place] Hospital Course Hospital Course: This is a 71-year-old female with a past medical history of polymyalgia rheumatica, severe COPD and chronic lung disease on Oxygen dependence at 2 L continuously, GERD, type 2 diabetes, hypertension, presents today for evaluation of weakness.? Patient states that about 8 hours ago at dinnertime became weak.? She states that her whole body felt weak.? She also reports increased shortness of breath that has been worsening over several days, no fevers. work up in the ED shows COPD exacerbation and CHF. she was given IV diuretics and started on steroids. She had marked improvement in her symptoms overnight. she diuresed well and remained hemodynamically stable. she feels she is back to her baseline. she will be discharged to home a a steroid burst. Her senior marketing analyst was in the process of reducing her dose and she will need to give further recommendations on weaning now she's back at 40 mg daily for 5 days. I have left a message at the office and instructed patient to check in if she does not receive a call. She will be discharged to home with new home health nursing and PT/OT. discussed with Dr Guardado. Home Meds and New Rx's Prescriptions: New prednisone 20 mg tablet 40 mg PO DAILY Qty: 30 0RF Continued calcium carbonate [Calcium 600] 600 mg calcium (1,500 mg) tablet 600 mg PO BID acetaminophen 500 mg tablet 1,000 mg PO Q6H PRN Label Comments: Max 6 tabs daily per pt albuterol sulfate 90 mcg/actuation HFA aerosol inhaler 2 puff inhalation Q6H PRN (Reason: shortness of breath or wheezing) Qty: 18 4RF lidocaine 4 % adhesive patch,medicated 1 patch topical DAILY PRN (Reason: pain) Qty: 30 1RF Rx Instructions: Apply patch to most painful area, may leave on for up to 12 hrs glipizide 5 mg tablet 2.5 mg PO DAILY Qty: 45 3RF Rx Instructions: Half a tablet daily amlodipine 5 mg tablet 5 mg PO DAILY Qty: 90 3RF Rx Instructions: Take 1 tablet daily atorvastatin 80 mg tablet 80 mg PO QPM Qty: 90 3RF Jardiance 10 mg tablet 10 mg PO DAILY Qty: 90 3RF torsemide 20 mg tablet 20 mg PO DAILY Qty: 90 3RF (DME) blood-glucose meter [Intrinsiq Materialsuch Ultra2 Meter] Kit See Rx Instructions .MEDSUPPLY Qty: 1 2RF Rx Instructions: Check blood sugar twice a day fluticasone propionate [Flonase Allergy Relief] 50 mcg/actuation spray,suspension 2 spray intranasal DAILY PRN (Reason: allergy symptoms) Qty: 16 4RF Rx Instructions: administer into each nostril (DME) blood sugar diagnostic Strip See Rx Instructions .MEDSUPPLY Qty: 200 4RF Rx Instructions: Check blood sugar twice a day (DME) lancets [MdundoTouch Delica Plus Lancet] 33 gauge misc See Rx Instructions .MEDSUPPLY Qty: 200 4RF Rx Instructions: Check blood sugar twice a day metformin 500 mg tablet 1,000 mg PO BID Qty: 360 4RF cetirizine 10 mg tablet 10 mg PO DAILY Qty: 90 4RF Rx Instructions: take one tablet daily Bevespi Aerosphere 9-4.8 mcg HFA aerosol inhaler 1 puff inhalation BID Qty: 10.7 4RF Hold Instructions: Has not started and does not wish to for now Rx Instructions: 1 puff twice a day (DME) Aerochamber MV Spacer See Rx Instructions .ROUTE .MEDSUPPLY Qty: 2 4RF Rx Instructions: Use with inhalers omeprazole 20 mg capsule,delayed release(DR/EC) 20 mg PO DAILY Qty: 90 4RF cyclobenzaprine 10 mg tablet 10 mg PO TID PRN (Reason: muscle spasm) Qty: 60 0RF Entresto 24-26 mg tablet 1 tab PO BID Qty: 90 4RF cholecalciferol (vitamin D3) [Vitamin D3] 25 mcg (1,000 unit) Capsule 25 mcg PO DAILY aspirin 81 mg Tablet,Delayed Release (Dr/Ec) 81 mg PO DAILY Qty: 0 0RF Changed prednisone 10 mg tablet 40 mg PO DAILY Qty: 0 0RF Label Comments: Takes a 10mg tab and a 5mg tab = 15mg Discharge Instructions Instructions: Heart Failure (DC), COPD (Chronic Obstructive Pulmonary Disease) (DC) Additional Instructions: Your prednisone has been increased to 40 mg daily, please follow up with your senior marketing analyst for further tapering recommendations. I have left a message with their office, please follow up if they do not reach out to you. Stand Alone Forms: Nursing Discharge Form Referrals: Katherine Andre NP [Primary Care Provider] - 04/16/22 11:20 am Activity:: Activity as Tolerated Equipment/Supplies:: No Equipment Needed Diet:: Carb Counting Discharge Orders Discharge Orders: Discharge Order (Routine); Ordered 04/02/22 Ordered By: Lynnette Sandra Discharge Data Discharge Date/Time-TO BE ENTERED AT DEPARTURE: 04/02/22 13:00 DS: Summary Time Spent with Patient providing and/or coordinating discharge services: Greater than 30 minutes Status at Discharge Functional status at discharge: uses cane/walker Overall status at discharge: patient is progressing back to baseline Mental Status: mental status grossly normal Speech and Movement: speech and movement normal Mood: congruent mood Affect: normal affect Exam Const General: cooperative, comfortable and no acute distress Nutritional Appearance: average body habitus Orientation: alert, awake and oriented x3 HENMT Head: normal to inspection, normocephalic and atraumatic Eyes General: appearance normal, both eyes and all related structures Resp Effort & Inspection: normal respiratory effort Auscultation: clear to auscultation bilaterally Cardio Rate: regular rate Rhythm: regular rhythm GI Inspection: normal to inspection Palpation: soft Auscultation: normal bowel sounds Skin General skin exam: no rashes or lesions noted Neuro General: patient alert, patient awake, patient oriented x3, moves all extremities and focal motor deficits present Cranial Nerves: PERRL, no nystagmus, facial strength normal and tongue midline Cognition: normal cognition Speech: speech normal Gait: gait assisted Motor: strength abnormal (4/5 on left upper and 3/5 left lower, right 5/5) Sensory Exam: no sensory deficits noted Extrem General: no pedal edema Psych Mental Status: mental status grossly normal Speech and Movement: speech and movement normal Mood: congruent mood Affect: normal affect DS: Data Vitals/I&O Vitals and I&O: Vital Signs Temperature 36.1 C L 04/02/22 07:13 Temperature Source Tympanic 04/02/22 07:13 Pulse 95 H 04/02/22 08:57 Pulse Rhythm Regular 04/02/22 08:08 Pulse 100 H 04/01/22 06:40 Respiratory Rate 18 04/02/22 07:22 Respiratory Effort 04/02/22 08:08 Respiratory Depth Normal 04/02/22 08:08 Respiratory Pattern Normal 04/02/22 08:08 Blood Pressure 116/74 04/02/22 07:13 Blood Pressure Mean 89 04/01/22 06:31 Pulse Oximetry 96 04/02/22 07:22 Oxygen Delivery Method Nasal Cannula 04/02/22 07:19 Oxygen Flow Rate 2 04/02/22 07:19 Pain Level 0 04/02/22 07:13 Comment 04/01/22 14:42 Intake & Output 04/01/22 04/01/22 04/02/22 11:59 23:59 11:59 Intake Total 480 / 920 440 / 920 480 / 480 Output Total 1600 / 1600 1900 / 1900 Balance -1120 / -680 440 / -680 -1420 / -1420 Weight 77.09 kg 77.2 kg Intake: Oral 480 / 920 440 / 920 480 / 480 Output: Urine 1600 / 1600 1900 / 1900 Other: Urine Color Pale Yellow Yellow Urine Appearance Clear Clear Clear Urine Odor Normal Normal Voiding Methods Bedside Commode Toilet Data Completed and Pending Labs on day of discharge: Labs from last 24 hours 04/02/22 04/02/22 04/02/22 06:00 06:00 06:00 WBC 11.26 H RBC 3.31 L Hgb 9.1 L Hct 30.2 L MCV 91 MCH 27.5 MCHC 30.1 L RDW 14.4 Plt Count 239 MPV 10.6 Immature Gran % 0.2 Neutrophils % 75.5 Lymphocytes % 12.9 Monocytes % 10.7 Eosinophils % 0.6 Basophils % 0.1 Nucleated RBC % 0.0 Absolute Neutrophils 8.50 H Absolute Lymphocytes 1.45 Absolute Monocytes 1.20 H Absolute Eosinophils 0.07 Absolute Basophils 0.01 Sodium 141 Potassium 3.7 Chloride 100 Carbon Dioxide 37.0 H Anion Gap 4.0 BUN 46 H Creatinine 1.9 H Estimated GFR/1.73 m2 25.98 Glucose 172 H Hemoglobin A1c Pending Calcium 9.3 Total Bilirubin 0.9 AST 19 ALT 38 Alkaline Phosphatase 50 Total Protein 6.9 Albumin 3.5 04/01/22 12:28 WBC RBC Hgb Hct MCV MCH MCHC RDW Plt Count MPV Immature Gran % Neutrophils % Lymphocytes % Monocytes % Eosinophils % Basophils % Nucleated RBC % Absolute Neutrophils Absolute Lymphocytes Absolute Monocytes Absolute Eosinophils Absolute Basophils Sodium Potassium Chloride Carbon Dioxide Anion Gap BUN Creatinine Estimated GFR/1.73 m2 Glucose 460 H Hemoglobin A1c Calcium Total Bilirubin AST ALT Alkaline Phosphatase Total Protein Albumin PFSH All Active Problems Chronic kidney disease (Chronic) Acute exacerbation of chronic obstructive pulmonary disease (Acute) Acute exacerbation of congestive heart failure (Acute) CVA (cerebral vascular accident) (Acute ~12/2021) Heart failure with reduced ejection fraction (Chronic) Chronic obstructive pulmonary disease (Chronic) 09/2021- O2 dependent on 2 l/min (O2 sat at 83% RA) Polymyalgia rheumatica (Chronic) Type 2 diabetes mellitus (Chronic) Carotid atherosclerosis (Chronic) Essential hypertension (Chronic) GERD (gastroesophageal reflux disease) (Chronic) Pulmonary nodule (Chronic) Nicotine dependence, cigarettes, uncomplicated (Chronic) Annual LDCT Osteoarthritis of hips, bilateral (Chronic) Diabetic nephropathy (Chronic) Diabetic retinopathy (Chronic) Ventral hernia (Chronic) Generalized anxiety disorder (Chronic) Benign positional vertigo (Chronic) 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 Father Diabetes Daughter No problems noted. Daughter No problems noted. Daughter No problems noted. Daughter No problems noted. 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
--- NOTE | 2022-04-02 11:35 | PDOC.HHF2F_ITS ---
Home Health Certification Home Health Certification: 1. Encounter Date and Reason I certify that Beth Pratt was seen by Lynnette aSndra on 04/02/22 and that I had a [id number] encounter with this patient that meets the physician face to face encounter requirements. 2. Clinical Findings Supporting Skilled Need and Homebound Status I certify that home health services are medically necessary, include either intermittent nursing home and/or physical/speech therapy, and that this patient is homebound in that absences from the home require considerable and taxing effort and are infrequent or of short duration, or are attributable to the need to receive medical care. [X] (a) Attached documentation from encounter provides clinical findings supporting skilled need and homebound status (including what assistance patient requires to leave the home). The encounter with the patient was in whole, or in part, for the following medical condition, which is the primary reason for home health care: COPD Exacerbation,CHF Exacerbation [facility]: routine evaluation and monitoring and medication oversight. Physical and Occupational Therapy: routine evaluation and treatment Homebound: patient is unable to safely leave the house unattended d/t decreased strength and endurance and shortness of breath that severely limits distance and ability to navigate multiple staircases needed to exit and enter property. 3. Certification and Authentication I certify that I composed the above information based on my clinical judgement relating to this patient's medical condition and, if applicable, clinical findings communicated to me by the NPP or inpatient physician who performed the Home Health Referral. All further orders will be obtained through _Katherine Andre_(Community Based Physician - PCP)
[2022-04-02 12:45] LABS: Glucose 440 mg/dL (74-106)
--- NOTE | 2022-04-02 17:04 | PDOC.CMDIS ---
- If Service Date Differs Date of service: 04/02/22 Time of Service: 17:04 LACE Index Scoring Tool - Questions: Length of Stay (in days): 1 Acuity (Admit via E.D.?): Yes Comorbidities: Cerebrovascular Disease, Diabetes w/o Complication, Congestive Heart Failure, Chronic Pulmonary Disease E.D. Visits: 5 - Answers: Total Score: 13 Risk of Readmission: High Risk Care Management Discharge Reason for Hospitalization: Acute exacerbation of COPD Discharge Plan: Beth will be discharged home with new home health services for PT. She will folow up with her PCP and plan of care and transport with family. Patient/Family Education Needs: Review of discharge instructions, limitations, follow up plan, medications, discuss Ask Me Three Services Needed at Discharge: Home Health Care Services, Physical Therapy
[2022-04-02 18:00] LABS: Hemoglobin A1C 8.9 % (<5.7)
== END 2022-04-02 13:00 | disposition home health service (06) | DRG 291 ==
LOC: ER 06:14 → MS 07:03
PROVIDERS: Family Medicine; Nurse Practitioner Acute Care; Admitting Provider Family Medicine; Emergency Provider Student in an Organized Health Care Education/Training Program; PCP Nurse Practitioner Family; Visit Provider Family Medicine
DX: I13.0 Hypertensive heart and chronic kidney disease with heart failure and stage 1 through stage 4 chronic kidney disease, or unspecified chronic kidney disease (principal); I50.23 Acute on chronic systolic (congestive) heart failure; J44.1 Chronic obstructive pulmonary disease with (acute) exacerbation; I69.354 Hemiplegia and hemiparesis following cerebral infarction affecting left non-dominant side; M35.3 Polymyalgia rheumatica; Z99.81 Dependence on supplemental oxygen; K21.9 Gastro-esophageal reflux disease without esophagitis; Z79.84 Long term (current) use of oral hypoglycemic drugs; I65.29 Occlusion and stenosis of unspecified carotid artery; R91.1 Solitary pulmonary nodule; M16.0 Bilateral primary osteoarthritis of hip; E11.319 Type 2 diabetes mellitus with unspecified diabetic retinopathy without macular edema; K43.9 Ventral hernia without obstruction or gangrene; F41.1 Generalized anxiety disorder; H81.10 Benign paroxysmal vertigo, unspecified ear; G43.109 Migraine with aura, not intractable, without status migrainosus; Z66 Do not resuscitate; E11.22 Type 2 diabetes mellitus with diabetic chronic kidney disease; N18.9 Chronic kidney disease, unspecified; I08.3 Combined rheumatic disorders of mitral, aortic and tricuspid valves; F17.200 Nicotine dependence, unspecified, uncomplicated
CPT/HCPCS: 36415; 80053; 82805; 82947; 87637; 93005; 94640; 96374; 96375; 97162; 97530; 99285; 71045; 83036; 83605; 83880; 84484; 85025; 93010; 99223; 99239; J1644; J1940; J1941; J2930; J7512; J7620

== ENCOUNTER 2022-04-09 14:16 | Outpatient (REF) | payer MEDICARE, MEDICAID, SELFPAY ==
[2022-04-09 15:20] LABS: Bilirubin Negative (Negative); Blood Negative (Negative); Clarity Clear (Clear); Glucose 500 mg/dL (Negative); Ketones Negative (Negative); Leukocyte Esterase Negative (Negative); Nitrite Negative (Negative); Specific Gravity 1.015 (1.005-1.025); Urobilinogen 0.2 EU/dL (Up TO 0.2); pH 5.5 (5-8)
[2022-04-09 15:32] LABS: Epithelial Cells Moderate HPF (Negative); RBC Negative HPF (0-2)
[2022-04-09 15:33] LABS: Bacteria Rare HPF (Negative); C & S Indicated? No/Sq. Contamination; Casts Negative LPF (Negative); Crystals Negative HPF (Negative); Mucus Negative (Negative)
== END 2022-04-09 14:17 | disposition home or self-care (01) ==
LOC: LBN 14:16
PROVIDERS: PCP Nurse Practitioner Family; Visit Provider Nurse Practitioner Family
DX: K92.1 Melena (principal); R31.9 Hematuria, unspecified
CPT/HCPCS: 81003; 81015; 82272

== ENCOUNTER → 2022-04-10 18:01 | Outpatient (CLI) | payer MEDICARE, MEDICAID, SELFPAY ==
--- NOTE | 2022-04-10 18:21 | DI.RAD_ITS ---
Exam(s) XR CHEST 2V PA LATERAL EXAM: XR CHEST 2V PA LATERAL CLINICAL HISTORY: SOB, heart failure, orthopnea,acute exac of chf,i50.9 TECHNIQUE: 2D digital imaging was performed of the chest. Two images were obtained. PA and lateral views were obtained. COMPARISON: CR XR CHEST 2V PA LATERAL from 04/08/2021 CR XR RIBS LT W PA LAT CHEST from 02/18/2022 CR,XR XR PORTABLE CHEST AP from 04/01/2022 FINDINGS: MEDIASTINUM: Normal. HEART: Normal. PULMONARY VASCULATURE: Normal. LUNGS: Clear. PLEURAL SPACE: No pneumothorax. There is persistent blunting of the left costophrenic angle which ma y represent a small pleural effusion. Plate atelectasis or scarring is seen in the lung bases bilate rally. No focal consolidating infiltrate is seen. There has been an overall improvement in the inte rstitial disease when compared to the examination on 04/01/2022. No new infiltrates are seen. BONE:Within normal limits for the patient's age. OTHER FINDINGS:Normal. IMPRESSION: 1. Overall improved appearance of the lungs since 04/01/2022. 2. Stable blunting of the left costophrenic angle which may represent small pleural effusion. DATA REPOSITORY: RADIATION DOSE DELIVERED:
--- NOTE | 2022-04-10 18:53 | DI.VRAD_ITS ---
PROCEDURE INFORMATION: Exam: XR Chest Exam date and time: 04/10/2022 6:18 PM Age: 71 years old Clinical indication: Shortness of breath; Patient HX: SOB TECHNIQUE: Imaging protocol: XR of the chest. Views: 2 views. COMPARISON: XR PORTABLE CHEST AP 04/01/2022 4:57 AM FINDINGS: Lungs: Interval decreased acute component of diffusely increased interstitial pulmonary markings, most likely compatible with resolving mild pulmonary edema. Stable underlying coarse pulmonary markings predominantly within the upper lobes, most likely compatible with chronic lung disease. Pleural spaces: Stable blunting of the left costophrenic angle most likely compatible with atelectasis or and/or small effusion. Heart/Mediastinum: Unremarkable. No cardiomegaly. Bones/joints: Unremarkable. IMPRESSION: 1. Interval decreased acute component of diffusely increased interstitial pulmonary markings, most likely compatible with resolving mild pulmonary edema. 2. Stable blunting of the left costophrenic angle most likely compatible with atelectasis or and/or small effusion. 3. Stable underlying coarse pulmonary markings predominantly within the upper lobes, most likely compatible with chronic lung disease. Dictated and Authenticated by: Isauro Andersen MD. Ordering:GRACE Almeida MD
== END ==
PROVIDERS: PCP Nurse Practitioner Family; Visit Provider Physician Assistant
DX: I50.9 Heart failure, unspecified (principal); R06.02 Shortness of breath; R06.01 Orthopnea
CPT/HCPCS: 71046

== ENCOUNTER → 2022-04-28 09:38 | Outpatient (BNVA) | payer MEDICARE, MEDICAID, SELFPAY | PROVIDERS: PCP Nurse Practitioner Family; Referring Provider Nurse Practitioner Family; Visit Provider Psychiatry & Neurology Neurology | DX: I69.354 Hemiplegia and hemiparesis following cerebral infarction affecting left non-dominant side (principal); Z79.02 Long term (current) use of antithrombotics/antiplatelets; N18.9 Chronic kidney disease, unspecified; E11.22 Type 2 diabetes mellitus with diabetic chronic kidney disease; I12.9 Hypertensive chronic kidney disease with stage 1 through stage 4 chronic kidney disease, or unspecified chronic kidney disease; I65.29 Occlusion and stenosis of unspecified carotid artery | CPT/HCPCS: 99215 ==

== ENCOUNTER 2022-05-01 07:52 | Inpatient (IN) | payer MEDICARE, MEDICAID, SELFPAY ==
[2022-05-01] VITALS (39 sets, daily range): BP systolic 87–131; BP diastolic 45–76; PULSE 85–114; RESP 16–39; TEMP 36.2–37.1; O2SAT 71–100
--- NOTE | 2022-05-01 07:45 | RT.EKG_ITS ---
APPROVED REPORT Exam: Resting ECG Reason for Exam: [id number] Patient Location: E HR:105 bpm ECG Measurements Heart Rate 105 AXIS LA 140 P 42 QRSd 98 QRS 39 QT 395 T 92 QTc 524 Conclusion Sinus tachycardia. Multiple premature complexes Nonspecific T abnormalities, lateral leads. I aVL V5 V6 QTc >500mS
--- NOTE | 2022-05-01 08:15 | DI.RAD_ITS ---
Exam(s) XR PORTABLE CHEST AP EXAM: XR PORTABLE CHEST AP CLINICAL HISTORY: shortness of breath TECHNIQUE: 2D digital imaging was performed of the chest. One image was obtained. An AP view was ob tained. COMPARISON: CR XR RIBS LT W PA LAT CHEST from 02/18/2022 CR,XR XR CHEST 2V PA LATERAL from 04/10/2022 FINDINGS: MEDIASTINUM: Normal. HEART: Normal. PULMONARY VASCULATURE: Normal. LUNGS: Stable parenchymal scarring is seen in the lungs. No focal consolidating infiltrate is seen. The lungs appear hyperinflated suggesting underlying COPD. PLEURAL SPACE: No pleural effusion or pneumothorax. BONE:Within normal limits for the patient's age. OTHER FINDINGS:Normal. IMPRESSION: No acute pulmonary findings. DATA REPOSITORY: RADIATION DOSE DELIVERED:
[2022-05-01 08:36] LABS: Source Nasal/Nares
[2022-05-01 08:38] LABS: Abs Immature Grans 0.02 10^3/uL (0.0-0.06); Absolute Basophil Count 0.01 10^3/uL (0.0-0.2); Absolute Eosinophil Count 0.06 10^3/uL (0.0-0.7); Absolute Monocyte Count 0.76 10^3/uL (0.1-0.8); Absolute Neutrophil Count 7.57 10^3/uL (1.2-6.7); Basophils % 0.1; Eosinophils % 0.6; HCT 31.1 % (36.0-46.0); HGB 9.5 g/dL (11.2-15.7); Immature Grans % 0.2; Lymphocytes % 9.7; MCH 27.1 pg (27.0-33.0); MCHC 30.5 % (32.0-36.0); MCV 89 fL (80-95); MPV 10.6 fL (8.0-11.0); Monocytes % 8.2; Neutrophils % 81.2; Platelet Count 222 10^3/uL (130-400); RDW 13.5 % (11.7-14.6); RDW-SD 43.9 fL; WBC 9.32 10^3/uL (4.4-10.8)
[2022-05-01] MEDS: Albuterol/Ipratropium 3 ML UPD VIAL UPD (08:47)
[2022-05-01 09:05] LABS: ALT 55 U/L (14-59); AST 36 U/L (15-37); Albumin 3.2 g/dL (3.4-5.0); Alkaline Phosphatase 86 U/L (46-116); Anion Gap 7.7 mmol/L (3-11); BUN 42 mg/dL (7-18); Bilirubin, Total 0.8 mg/dL (0.2-1.0); CO2 32.3 mmol/L (21.0-32.0); CREATININE 1.7 mg/dL (0.55-1.02); Calcium 9.1 mg/dL (8.5-10.1); Chloride 99 mmol/L (98-107); Estimated GFR 29.54 (mL/min/1.73m2); Glucose 193 mg/dL (74-106); Magnesium 1.6 mg/dL (1.8-2.4); NT-proBNP 22704 pg/mL (<300); Potassium 3.1 mmol/L (3.5-5.1); Sodium 139 mmol/L (136-145); Total Protein 6.9 g/dL (6.4-8.2); Troponin I 58 ng/L (<or=60)
[2022-05-01 09:30] LABS: COVID-19 PCR Negative (Negative)
[2022-05-01] MEDS: Potassium Chloride 20 MEQ TABCR 40 MEQ PO (09:34)
[2022-05-01] MEDS: MAGNESIUM SULFATE 1 GM/100 ML BAG IVPB (09:35)
[2022-05-01] MEDS: Furosemide 40 MG/4 ML VIAL IVP (09:46)
--- NOTE | 2022-05-01 10:26 | W.ED.GENAD ---
Discharge Plan Disposition Patient Disposition: HOME Condition: Stable Discharge Details Clinical Impression: Chronic obstructive pulmonary disease, Heart failure with reduced ejection fraction, Chronic kidney disease, Acute hypokalemia, Hypomagnesemia Primary Care Provider: Katherine Andre ED Provider: Cherie Duarte Discharge Data Discharge Date/Time-TO BE ENTERED AT DEPARTURE: 05/01/22 12:56 Medical Decision Making Patient appears chronically ill She was initially in mild respiratory distress She have chronic oxygen dependence. And has not needed additional intervention Received 40 mg IV Lasix Received DuoNeb Reports improvement in symptoms and has not been hypoxic at rest however with ambulatory trial, patient desats to 70% on her baseline 3 L of oxygen BNP is elevated for patient 22,000 Hypomagnesemia, 1.6, hypokalemia, 3.1, QTC prolongation on EKG Received p.o. potassium 40 mEq and IV magnesium, 1 g Chest x-ray did not show evidence of significant edema or acute abnormality EKG. Baseline for patient, 50 minutes pending the transportation Patient will need admission to the hospital at this time Case discussed with Dr. Barajas who has admitted patient to his service COVID swab negative No clinical evidence of pulmonary embolism clinically, low suspicion Medical Records Medical records reviewed: Yes I reviewed the patient's medical records. Lab Data Lab results reviewed: Yes I reviewed the patient's lab results. HPI General Date/Time Provider Initiated Documentation: 05/01/22 08:04. HPI Narrative: This 71-year-old female with history of CKD, COPD, CHF, cardiac ejection fraction, polymyalgia rheumatica presents report of shortness of breath started at 3:00 this morning. She denies any fever or chills. She denies any chest discomfort. She denies any calf pain or swelling. She denies any pleuritic component to her pain. She states she feels she cannot take a complete inhalation. She states she has had some increased swelling in her legs. She is chronically oxygen dependent on 2 to 3 L and is 97%. She did not have changed from torsemide to Lasix last evening. She states this was changed secondary to her CKD. Related Data Home Medications Medication Instructions Recorded Confirmed blood-glucose meter (SubblimeTouch #1 ea 11/26/20 04/28/22 Ultra2 Meter kit) fluticasone propionate 50 2 spray intranasal DAILY PRN 04/15/21 05/01/22 mcg/actuation nasal allergy symptoms #16 grams spray,suspension (Flonase Allergy Relief) cholecalciferol (vitamin D3) 25 25 mcg PO DAILY 08/30/21 05/01/22 mcg (1,000 unit) capsule (Vitamin D3) blood sugar diagnostic #200 ea 11/07/21 04/28/22 lancets 33 gauge (OneTouch Delica #200 ea 11/07/21 04/28/22 Plus Lancet) metformin 500 mg tablet 1,000 mg PO BID #360 tabs 11/07/21 04/28/22 albuterol sulfate 90 mcg/actuation 2 puff inhalation Q6H PRN 12/02/21 05/01/22 aerosol inhaler shortness of breath or wheezing #18 grams cetirizine 10 mg tablet 10 mg PO DAILY #90 tab-caps 12/16/21 05/01/22 acetaminophen 500 mg tablet 1,000 mg PO Q6H PRN 12/23/21 05/01/22 calcium carbonate 600 mg calcium 600 mg PO BID 12/23/21 05/01/22 (1,500 mg) tablet (Calcium) glycopyrrolate 9 mcg-formoterol 1 puff inhalation BID #10.7 grams 12/25/21 05/01/22 4.8 mcg HFA aerosol inhaler (Bevespi Aerosphere) inhalational spacing device #2 ea 12/25/21 04/28/22 (Aerochamber MV spacer) omeprazole 20 mg capsule,delayed 20 mg PO DAILY #90 tab-caps 12/25/21 05/01/22 release amlodipine 5 mg tablet 5 mg PO DAILY #90 tab-caps 02/03/22 05/01/22 atorvastatin 80 mg tablet 80 mg PO QPM #90 tabs 02/03/22 05/01/22 empagliflozin 10 mg tablet 10 mg PO DAILY #90 tabs 02/03/22 05/01/22 (Jardiance) glipizide 5 mg tablet 2.5 mg PO DAILY #45 tabs 02/03/22 05/01/22 sacubitril 24 mg-valsartan 26 mg 1 tab PO BID #90 tabs 03/17/22 05/01/22 tablet (Entresto) prednisone 10 mg tablet See Rx Instructions PO DAILY #18 04/16/22 05/01/22 tabs prednisone 5 mg tablet 5 mg PO DAILY #3 tabs 04/16/22 05/01/22 furosemide 40 mg tablet 40 mg PO DAILY #90 tabs 04/30/22 05/01/22 Previous Rx's Medication Instructions Recorded blood-glucose meter (SubblimeTouch #1 ea 11/26/20 Ultra2 Meter kit) fluticasone propionate 50 2 spray intranasal DAILY PRN 04/15/21 mcg/actuation nasal allergy symptoms #16 grams spray,suspension (Flonase Allergy Relief) blood sugar diagnostic #200 ea 11/07/21 lancets 33 gauge (OneTouch Delica #200 ea 11/07/21 Plus Lancet) metformin 500 mg tablet 1,000 mg PO BID #360 tabs 11/07/21 albuterol sulfate 90 mcg/actuation 2 puff inhalation Q6H PRN 12/02/21 aerosol inhaler shortness of breath or wheezing #18 grams cetirizine 10 mg tablet 10 mg PO DAILY #90 tab-caps 12/16/21 glycopyrrolate 9 mcg-formoterol 1 puff inhalation BID #10.7 grams 12/25/21 4.8 mcg HFA aerosol inhaler (Bevespi Aerosphere) inhalational spacing device #2 ea 12/25/21 (Aerochamber MV spacer) omeprazole 20 mg capsule,delayed 20 mg PO DAILY #90 tab-caps 12/25/21 release amlodipine 5 mg tablet 5 mg PO DAILY #90 tab-caps 02/03/22 atorvastatin 80 mg tablet 80 mg PO QPM #90 tabs 02/03/22 empagliflozin 10 mg tablet 10 mg PO DAILY #90 tabs 02/03/22 (Jardiance) glipizide 5 mg tablet 2.5 mg PO DAILY #45 tabs 02/03/22 sacubitril 24 mg-valsartan 26 mg 1 tab PO BID #90 tabs 03/17/22 tablet (Entresto) prednisone 10 mg tablet See Rx Instructions PO DAILY #18 04/16/22 tabs prednisone 5 mg tablet 5 mg PO DAILY #3 tabs 04/16/22 furosemide 40 mg tablet 40 mg PO DAILY #90 tabs 04/30/22 Allergies Allergy/AdvReac Type Severity Reaction Status Date / Time codeine AdvReac Severe Cardiac Verified 05/01/22 08:01 Dysrythmia indomethacin AdvReac Intermediate Cardiac Verified 05/01/22 08:01 Dysrythmia lisinopril AdvReac cough Verified 05/01/22 08:01 General Stated Complaint: SOB BELKIS: 3 Review of Systems All systems reviewed & are unremarkable except as noted in HPI and below PFSH All Active Problems (Updated 05/02/22 @ 16:42 by ABI Ly) Acute hypokalemia (Acute) Hypomagnesemia (Acute) Chronic kidney disease (Chronic) 04/2022-stage 3, Cr-1.9 Acute exacerbation of chronic obstructive pulmonary disease (Acute) Acute exacerbation of congestive heart failure (Acute) CVA (cerebral vascular accident) (Acute ~12/2021) Heart failure with reduced ejection fraction (Chronic) Chronic obstructive pulmonary disease (Chronic) 09/2021- O2 dependent on 2 l/min (O2 sat at 83% RA) Polymyalgia rheumatica (Chronic) Type 2 diabetes mellitus (Chronic) Carotid atherosclerosis (Chronic) Essential hypertension (Chronic) GERD (gastroesophageal reflux disease) (Chronic) Pulmonary nodule (Chronic) Nicotine dependence, cigarettes, uncomplicated (Chronic) Annual LDCT Osteoarthritis of hips, bilateral (Chronic) Diabetic nephropathy (Chronic) Diabetic retinopathy (Chronic) Ventral hernia (Chronic) Generalized anxiety disorder (Chronic) Benign positional vertigo (Chronic) 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 Father Diabetes Daughter No problems noted. Daughter No problems noted. Daughter No problems noted. Daughter No problems noted. 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 Pets and animals: Yes Pets and animals: cat(s) Current gender identity: female What type of physical activity do you participate in: none Irma/Yarsani: Protestant Special irma needs: No Do you feel safe at home: Yes Do you feel safe in your relationship?: Yes Exam Const General: cooperative, comfortable, no acute distress and frail appearing HENMT Head: normal to inspection Mouth: oral mucosae normal Eyes Pupils: PERRL Chest Chest: normal inspection of the chest Resp Effort & Inspection: able to speak in complete sentences and labored Auscultation: crackles Cardio Rate: regular rate Rhythm: regular rhythm GI Inspection: normal to inspection Auscultation: normal bowel sounds Skin General skin exam: no rashes or lesions noted Neuro General: patient alert and patient oriented x3 Extrem Other: distal pulses intact 1+ edema bilaterally non-tender calves bilaterally Psych Appearance: grossly normal Course Vital Signs Vital signs: Vital Signs Temperature 36.2 C L 05/01/22 07:55 Pulse 114 H 05/01/22 07:55 Respiratory Rate 20 05/01/22 07:55 Blood Pressure 122/67 05/01/22 07:55 Pulse Oximetry 97 05/01/22 07:55 Temperature 36.2 C L 05/01/22 07:55 Temperature Source Skin 05/01/22 07:55 Pulse 93 H 05/01/22 10:01 Pulse 94 H 05/01/22 10:00 Respiratory Rate 20 05/01/22 09:50 Respiratory Effort 05/01/22 08:09 Respiratory Depth Normal 05/01/22 08:09 Respiratory Pattern Normal 05/01/22 08:09 Blood Pressure 108/57 L 05/01/22 10:01 Blood Pressure Mean 68 05/01/22 10:01 Blood Pressure Position Sitting 05/01/22 07:55 Pulse Oximetry 95 05/01/22 10:01 Oxygen Delivery Method Nasal Cannula 05/01/22 07:55 Oxygen Flow Rate 3 05/01/22 07:55 Lab/Test Results Lab/Test Results: Laboratory Tests Range/Units 05/01/22 05/01/22 05/01/22 08:27 08:27 08:27 WBC (4.4-10.8) 10^3/uL 9.32 RBC (3.93-5.22) 10^6/uL 3.50 L Hgb (11.2-15.7) g/dL 9.5 L Hct (36.0-46.0) % 31.1 L MCV (80-95) fL 89 MCH (27.0-33.0) pg 27.1 MCHC (32.0-36.0) % 30.5 L RDW (11.7-14.6) % 13.5 Plt Count (130-400) 10^3/uL 222 MPV (8.0-11.0) fL 10.6 Immature Gran % 0.2 Neutrophils % 81.2 Lymphocytes % 9.7 Monocytes % 8.2 Eosinophils % 0.6 Basophils % 0.1 Nucleated RBC % (0.0-0.3) % 0.0 Absolute Neutrophils (1.2-6.7) 10^3/uL 7.57 H Absolute Lymphocytes (1.2-3.4) 10^3/uL 0.90 L Absolute Monocytes (0.1-0.8) 10^3/uL 0.76 Absolute Eosinophils (0.0-0.7) 10^3/uL 0.06 Absolute Basophils (0.0-0.2) 10^3/uL 0.01 Sodium (136-145) mmol/L 139 Potassium (3.5-5.1) mmol/L 3.1 L Chloride (98-107) mmol/L 99 Carbon Dioxide (21.0-32.0) mmol/L 32.3 H Anion Gap (3-11) mmol/L 7.7 BUN (7-18) mg/dL 42 H Creatinine (0.55-1.02) mg/dL 1.7 H Estimated GFR/1.73 m2 (mL/min/1.73m2) 29.54 Glucose (74-106) mg/dL 193 H Calcium (8.5-10.1) mg/dL 9.1 Magnesium (1.8-2.4) mg/dL 1.6 L Total Bilirubin (0.2-1.0) mg/dL 0.8 AST (15-37) U/L 36 ALT (14-59) U/L 55 Alkaline Phosphatase (46-116) U/L 86 Troponin I (<or=60) ng/L 58 NT-Pro-B Natriuret Pep (<300) pg/mL 73753 H Total Protein (6.4-8.2) g/dL 6.9 Albumin (3.4-5.0) g/dL 3.2 L COVID-19 Source Nasal/Nares SARS-CoV-2 (PCR) (Negative) Negative
--- NOTE | 2022-05-01 11:11 | PDOC.ERCMIN ---
- If Service Date Differs Date of service: 05/01/22 Time of Service: 11:11 Care Management Initial Assess REASON FOR HOSPITALIZATION:: Acute on chronic heart failure. PAST MEDICAL HISTORY/PAST SURGICAL HISTORY:: All Active Problems: Chronic kidney disease (Chronic) - 04/2022-stage 3, Cr-1.9, Acute exacerbation of chronic obstructive pulmonary disease (Acute), Acute exacerbation of congestive heart failure (Acute), CVA (cerebral vascular accident) (Acute ~12/2021), Heart failure with reduced ejection fraction (Chronic), Chronic obstructive pulmonary disease (Chronic) - 09/2021- O2 dependent on 2 l/min (O2 sat at 83% RA), Polymyalgia rheumatica (Chronic), Type 2 diabetes mellitus (Chronic),. Carotid atherosclerosis (Chronic), Essential hypertension (Chronic), GERD (gastroesophageal reflux disease) (Chronic), Pulmonary nodule (Chronic),. Nicotine dependence, cigarettes, uncomplicated (Chronic) - Annual LDCT,. Osteoarthritis of hips, bilateral (Chronic), Diabetic nephropathy (Chronic),. 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 Medical History: Iron deficiency anemia. Surgical History: History of esophagogastroduodenoscopy (EGD) (07/30/18), S/P cholecystectomy, S/P colonoscopy (07/30/18), and. S/P tonsillectomy. PREVIOUS FUNCTIONAL STATUS/SOCIAL/FAMILY SUPPORTS:: Beth lives alone in an apartment in [facility]. She has 4 daughters but only one daughter lives locally. Her other daughters reside in [place] and [place]. Beth shares she had a stroke in December of this year and has struggled to maintain at home since then as she fills up with fluid and has to return to the hospital for treatment. CURRENT FUNCTIONAL STATUS:: Beth is sitting up in bed when CM comes to meet with her. Her daughter, Lida, is present in the room. Lida reports her mom cannot maintain at home with Home Health RN, PT, and OT and Meals on Wheels and requires rehab. Beth shares her concern that she will lose her apartment if she returns to rehab. She, however, is willing to consider a short stay at [facility]. ADVANCE DIRECTIVES:: On file; daughter Lida Petit is appointed as Health Care Agent. COLST form also on file. Has patient been provided with info about the portal/API?: Yes Did the patient sign up for the portal?: Yes (Previously enrolled.) CODE STATUS:: DNR/DNI INSURANCE COVERAGE / FINANCIAL ISSUES:: Medicare and Medicaid. CURRENT HOME/COMMUNITY SERVICES/EQUIPMENT:: Home Health RN, PT, OT. Beth is also connected with [facility] and gets Meals on Wheels; her case management director is Argelia Witt. Beth is on 2L of O2 at baseline and has a Life Alert, in addition to a walker with a tray, shower chair, raised toilet seat, and a tower to assist with getting in and out of bed. PRIMARY CARE PHYSICIAN:: Katherine Andre NP ([facility]). POTENTIAL DISCHARGE NEEDS:: Follow up appointments with PCP, cardiology, and potential rehab. PATIENT/FAMILY EDUCATION NEEDS:: Review of discharge instructions and discuss Ask Me Three. ANTICIPATED BARRIERS TO DISCHARGE:: Beth's declining health and difficulty maintaining at home with community services. TRANSPORTATION:: Via private vehicle with family. PLAN:: Beth will likely require a rehab stay prior to returning home with HH and COA services. She will follow up with her PCP, dyeing machine tender and plan of care as instructed. CM will continue to support Beth, her family and any discharge planning needs. Readmission - Within the Past 30 Days Yes or No: Y - Date of First Admission Date of 1st Admission: 04/01/22 - Date of this Admission Date of Admission: 05/01/22 This admission was: Through ED - Office Visit Since 1st Admission Have you seen your PCP in the office since discharge?: Yes Date of PCP Appointment: 04/16/2022 - Speicalist Appointments Have you seen any other specialist since your 1st Admission?: Yes Date you saw the Specialist: 04/28/2022 Specialist Seen: Neurologist - I. Interview patient and/or Family Difficulty reaching your doctor or getting an office appt?: No Have you had trouble purchasing/ or taking medication?: No Did you feel ready for discharge when you left the last time: Yes Were services received that you thought were set up on disch: Yes What services were received?: Home Health RN, PT, and OT, and Meals on Wheels. Did you call your physician beore you came to the ED?: No How do you think you became sick enough to come back?: I never got better. I kept getting worse after returning home from [facility]. - If the patient had a VNA ordered Did the patient have a VNA order?: Yes Did you call the VNA before you came?: No - Ask the Care Team Members: What do you think caused the patient to be readmitted: Patient's health is declining. - ED visits How many ED visits in the past 12 months: 6 - Assessment for Readmission Summary of readmission circumstances, based upon interviews: Patient struggles with shortness of breath due to chronic heart failure. She is failing at home despite having community services.
--- NOTE | 2022-05-01 11:44 | NUR.NOTE ---
1142 Patient eating lunch.
--- NOTE | 2022-05-01 12:56 | HPE_ITS ---
Date of service: 05/01/22 Time of Service: 12:57 Assessment and Plan Assessment and plan (1) Heart failure with reduced ejection fraction: Status: Chronic Assessment and plan: referred to observation for IV diuresis. no chest pain continue home meds as previously directed. no evidence of COPD exacerbation I & O daily weights. discussed with DR Guardado. History of Present Illness History of Present Illness Chief Complaint: shortness of breath Narrative: patient reports episode of shortness of breath after returning from smoking out on her deck (doesn't smoke with oxygen on). she states that she typically have no hypoxic episodes doing that. she reports she has had increasing weight and swelling and diuretic changed from torsemide to lasix today. EMS was called to the house for shortness of breath and hypoxia. she was transported to the ED and given IV lasix with some improvement in her symptoms. she was oxygenating in the mid 90's on her home oxygen but on ambulatory pulse oximetry, noted to desat into the 70's so was referred to hospitalist for observation stay for further monitoring and diuresis. Review of Systems All systems reviewed & are unremarkable except as noted in HPI and below Cardiovascular Cardiovascular: Denies chest pain, Reports leg edema and Reports dyspnea Respiratory Respiratory: Denies cough and Reports dyspnea Gastrointestinal Gastrointestinal: Denies abdominal pain Musculoskeletal Musculoskeletal: Denies back pain PFSH All Active Problems (Updated 05/02/22 @ 17:27 by Lynnette Sandra NP) Discharge planning issues (Acute) DVT prophylaxis (Acute) Acute hypokalemia (Acute) Hypomagnesemia (Acute) Chronic kidney disease (Chronic) 04/2022-stage 3, Cr-1.9 Acute exacerbation of chronic obstructive pulmonary disease (Acute) Acute exacerbation of congestive heart failure (Acute) CVA (cerebral vascular accident) (Acute ~12/2021) Heart failure with reduced ejection fraction (Chronic) Chronic obstructive pulmonary disease (Chronic) 09/2021- O2 dependent on 2 l/min (O2 sat at 83% RA) Polymyalgia rheumatica (Chronic) Type 2 diabetes mellitus (Chronic) Carotid atherosclerosis (Chronic) Essential hypertension (Chronic) GERD (gastroesophageal reflux disease) (Chronic) Pulmonary nodule (Chronic) Nicotine dependence, cigarettes, uncomplicated (Chronic) Annual LDCT Osteoarthritis of hips, bilateral (Chronic) Diabetic nephropathy (Chronic) Diabetic retinopathy (Chronic) Ventral hernia (Chronic) Generalized anxiety disorder (Chronic) Benign positional vertigo (Chronic) 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 Father Diabetes Daughter No problems noted. Daughter No problems noted. Daughter No problems noted. Daughter No problems noted. 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 Pets and animals: Yes Pets and animals: cat(s) Current gender identity: female What type of physical activity do you participate in: none Irma/Rastafarian: Religion Special irma needs: No Do you feel safe at home: Yes Do you feel safe in your relationship?: Yes Meds Allergies and Home Medications Allergies Allergy/AdvReac Type Severity Reaction Status Date / Time codeine AdvReac Severe Cardiac Verified 05/01/22 08:01 Dysrythmia indomethacin AdvReac Intermediate Cardiac Verified 05/01/22 08:01 Dysrythmia lisinopril AdvReac cough Verified 05/01/22 08:01 Home Medications Medication Instructions Recorded Confirmed Type blood-glucose meter ([employer] #1 ea 11/26/20 04/28/22 Rx Ultra2 Meter kit) fluticasone propionate 50 2 spray intranasal DAILY PRN 04/15/21 05/01/22 Rx mcg/actuation nasal allergy symptoms #16 grams spray,suspension (Flonase Allergy Relief) cholecalciferol (vitamin D3) 25 25 mcg PO DAILY 08/30/21 05/01/22 History mcg (1,000 unit) capsule (Vitamin D3) blood sugar diagnostic #200 ea 11/07/21 04/28/22 Rx lancets 33 gauge (OneTouch Delica #200 ea 11/07/21 04/28/22 Rx Plus Lancet) metformin 500 mg tablet 1,000 mg PO BID #360 tabs 11/07/21 04/28/22 Rx albuterol sulfate 90 mcg/actuation 2 puff inhalation Q6H PRN 12/02/21 05/01/22 Rx aerosol inhaler shortness of breath or wheezing #18 grams cetirizine 10 mg tablet 10 mg PO DAILY #90 tab-caps 12/16/21 05/01/22 Rx acetaminophen 500 mg tablet 1,000 mg PO Q6H PRN 12/23/21 05/01/22 History calcium carbonate 600 mg calcium 600 mg PO BID 12/23/21 05/01/22 History (1,500 mg) tablet (Calcium) glycopyrrolate 9 mcg-formoterol 1 puff inhalation BID #10.7 grams 12/25/21 05/01/22 Rx 4.8 mcg HFA aerosol inhaler (Bevespi Aerosphere) inhalational spacing device #2 ea 12/25/21 04/28/22 Rx (Aerochamber MV spacer) omeprazole 20 mg capsule,delayed 20 mg PO DAILY #90 tab-caps 12/25/21 05/01/22 Rx release amlodipine 5 mg tablet 5 mg PO DAILY #90 tab-caps 02/03/22 05/01/22 Rx atorvastatin 80 mg tablet 80 mg PO QPM #90 tabs 02/03/22 05/01/22 Rx empagliflozin 10 mg tablet 10 mg PO DAILY #90 tabs 02/03/22 05/01/22 Rx (Jardiance) glipizide 5 mg tablet 2.5 mg PO DAILY #45 tabs 02/03/22 05/01/22 Rx sacubitril 24 mg-valsartan 26 mg 1 tab PO BID #90 tabs 03/17/22 05/01/22 Rx tablet (Entresto) prednisone 10 mg tablet See Rx Instructions PO DAILY #18 04/16/22 05/01/22 Rx tabs prednisone 5 mg tablet 5 mg PO DAILY #3 tabs 04/16/22 05/01/22 Rx furosemide 40 mg tablet 40 mg PO DAILY #90 tabs 04/30/22 05/01/22 Rx Exam Const General: cooperative, comfortable, no acute distress and frail appearing Eyes Pupils: PERRL Resp Effort & Inspection: able to speak in complete sentences and labored Auscultation: crackles Cardio Rate: regular rate Rhythm: regular rhythm GI Inspection: normal to inspection Auscultation: normal bowel sounds Skin General skin exam: no rashes or lesions noted Neuro General: patient alert and patient oriented x3 Extrem Other: distal pulses intact 1+ edema bilaterally Results Labs Result diagrams: 05/02/22 11:00 05/02/22 11:00 Labs: Laboratory Results - last 24 hr 05/01/22 05/01/22 05/01/22 08:27 08:27 08:27 WBC 9.32 RBC 3.50 L Hgb 9.5 L Hct 31.1 L MCV 89 MCH 27.1 MCHC 30.5 L RDW 13.5 Plt Count 222 MPV 10.6 Immature Gran % 0.2 Neutrophils % 81.2 Lymphocytes % 9.7 Monocytes % 8.2 Eosinophils % 0.6 Basophils % 0.1 Nucleated RBC % 0.0 Absolute Neutrophils 7.57 H Absolute Lymphocytes 0.90 L Absolute Monocytes 0.76 Absolute Eosinophils 0.06 Absolute Basophils 0.01 Sodium 139 Potassium 3.1 L Chloride 99 Carbon Dioxide 32.3 H Anion Gap 7.7 BUN 42 H Creatinine 1.7 H Estimated GFR/1.73 m2 29.54 Glucose 193 H Calcium 9.1 Magnesium 1.6 L Total Bilirubin 0.8 AST 36 ALT 55 Alkaline Phosphatase 86 Troponin I 58 NT-Pro-B Natriuret Pep 21723 H Total Protein 6.9 Albumin 3.2 L COVID-19 Source Nasal/Nares SARS-CoV-2 (PCR) Negative Last Vital Signs Temp 36.7 C 05/01/22 12:53 Pulse 103 H 05/01/22 12:53 Resp 36 H 05/01/22 12:53 BP 103/58 L 05/01/22 12:53 Pulse Ox 94 05/01/22 12:53
[2022-05-01] MEDS: Normal Saline Flush 10 ML SYR IVP ×2 (13:21→16:09)
[2022-05-01] MEDS: Furosemide 100 MG/10 ML VIAL 80 MG IVP (16:09)
[2022-05-01] MEDS: Insulin Aspart 300 UNITS/3 ML PEN SC ×2 (16:50→21:10)
[2022-05-01] MEDS: predniSONE 5 MG TAB 15 MG PO (18:34)
[2022-05-01] MEDS: Atorvastatin 40 MG TAB 80 MG PO (21:10)
[2022-05-01] MEDS: Calcium Carbonate 1.5 GM TAB PO (21:10)
[2022-05-01] MEDS: Sacubitril/Valsartan 24 mg/26 mg TAB 1 EACH PO (21:10)
[2022-05-01] MEDS: Acetaminophen 500 MG TAB 1000 MG PO (21:18)
[2022-05-02] MEDS: Gabapentin 300 MG CAP 100 MG PO
[2022-05-02] MEDS: Gabapentin 100 MG CAP
[2022-05-02] MEDS: Acetaminophen 500 MG TAB 1000 MG PO ×2 (02:52→21:59)
[2022-05-02 06:02] VITALS: O2SAT 92
[2022-05-02] MEDS: glipiZIDE 5 MG TAB 2.5 MG PO (07:53)
[2022-05-02] MEDS: Cholecalciferol (Vitamin D3) 1,000 UNIT TAB 1000 UNITS PO (07:54)
[2022-05-02] MEDS: predniSONE 5 MG TAB 15 MG PO (07:54)
[2022-05-02] MEDS: Omeprazole 20 MG CAPCR PO (07:54)
[2022-05-02] MEDS: amLODIPine 5 MG TAB PO (07:54)
[2022-05-02] MEDS: Aspirin E.C. 81 MG TABEC PO (07:54)
[2022-05-02] MEDS: Empaglifozin 10 MG TAB PO (07:54)
[2022-05-02] MEDS: Sacubitril/Valsartan 24 mg/26 mg TAB 1 EACH PO ×2 (07:54→19:26)
[2022-05-02 07:55] VITALS: BP 118/75; PULSE 91; RESP 19; TEMP 35.9; O2SAT 94
[2022-05-02] MEDS: Furosemide 100 MG/10 ML VIAL 80 MG IVP ×2 (07:55→15:51)
[2022-05-02] MEDS: Cetirizine 10 MG TAB PO (07:55)
[2022-05-02] MEDS: Normal Saline Flush 10 ML SYR IVP ×2 (07:55→15:51)
[2022-05-02] MEDS: Calcium Carbonate 1.5 GM TAB PO ×2 (07:55→19:26)
[2022-05-02] MEDS: Insulin Aspart 300 UNITS/3 ML PEN SC ×4 (07:58→22:00)
--- NOTE | 2022-05-02 09:38 | W.INDIABCONS ---
Date of service: 05/02/22 Time of Service: 09:38 Diabetes Inpatient Consult Reason for Visit: dm DESCRIPTION/ASSESSMENT: 71 year old female admitted with CHF with long standing history of smoking with COPD and uses home oxygen.? PMH:? CKD, DM, HTN.? Home Dm meds: 5 mg glipizide, 1000 mg metformin BID, 10 mg jardiance. Weight appropriate and stable.? Most recent A1C: 8.9% (04/02/22).? Glycemic management has deteriorated since previous admission.? With co morbidities, recommend keeping A1C <8.5%.? Following Low Sodium/Diabetic Diet with adequate intake.? Not considered at nutritional risk.? PLAN: Will provide education on carb counting and consistent carb intake at meals for improved glycemic management Time Spent in Nutritional Counseling and Treatment: 5
[2022-05-02 11:11] LABS: Abs Immature Grans 0.05 10^3/uL (0.0-0.06); Absolute Basophil Count 0.01 10^3/uL (0.0-0.2); Absolute Eosinophil Count 0.03 10^3/uL (0.0-0.7); Absolute Monocyte Count 0.69 10^3/uL (0.1-0.8); Basophils % 0.1; Eosinophils % 0.3; HCT 31.8 % (36.0-46.0); HGB 9.5 g/dL (11.2-15.7); Immature Grans % 0.5; Lymphocytes % 3.7; MCHC 29.9 % (32.0-36.0); MCV 90 fL (80-95); MPV 10.4 fL (8.0-11.0); Monocytes % 6.3; Neutrophils % 89.1; Platelet Count 246 10^3/uL (130-400); RBC 3.52 10^6/uL (3.93-5.22); RDW 13.5 % (11.7-14.6); WBC 10.94 10^3/uL (4.4-10.8)
[2022-05-02 11:15] LABS: Absolute Neutrophil Count 9.75 10^3/uL (1.2-6.7)
[2022-05-02 11:32] LABS: Anion Gap 4.5 mmol/L (3-11); BUN 43 mg/dL (7-18); CO2 34.5 mmol/L (21.0-32.0); CREATININE 1.5 mg/dL (0.55-1.02); Calcium 9.2 mg/dL (8.5-10.1); Chloride 98 mmol/L (98-107); Estimated GFR 34.13 (mL/min/1.73m2); Glucose 197 mg/dL (74-106); Potassium 3.3 mmol/L (3.5-5.1); Sodium 137 mmol/L (136-145)
--- NOTE | 2022-05-02 12:52 | PDOC.CMPRO ---
- If Service Date Differs Date of service: 05/02/22 Time of Service: 12:52 Care Management Progress Note S/O:Beth was sitting on the side of her bed playing yahtzee with her daughter Lida when CM met with her. They were both pleasant and engaged readily with CM, well known to them from previous hospitalizations. Beth and Lida both indicated that they would like her to go to rehab for a couple of weeks before returning home. They explained that Beth has become much weaker in the past few weeks and is struggling to maintain independently at home. CM explained that since she is in OBS status, she may not have a 3 night Medicare-qualifying stay. While she has improved clinically since admission, Beth is still not at her baseline. She was changed to inpatient status today. Since she also has community Medicaid, there would still be a payer source even if she does not have a qualifying stay. CM sent a referral be to [facility] at their request. A: Beth is a 71 year old woman admitted on 05/01/22 with Heart Failure P:Beth will likely require a rehab stay prior to returning home with and [facility] services. Beth was admitted in OBS status but was changed to inpatient status today. If she does not have a qualifying stay by Medicare criteria, she does also have community Medicaid, so would have a payer source.She will follow up with her PCP, extrusion die corrector and plan of care as instructed when she returns home. CM will continue to support Beth, her family and any discharge planning needs.
[2022-05-02 14:43] VITALS: PULSE 68; PULSE 94; RESP 18; RESP 22; O2SAT 90; O2SAT 94
[2022-05-02 15:22] VITALS: BP 101/62; PULSE 100; RESP 22; TEMP 36.9; O2SAT 91
--- NOTE | 2022-05-02 15:57 | W.PM.PROGNOT ---
Date of Service Date of service: 05/02/22 Time of Service: 15:57 Assessment and Plan Assessment and plan (1) Heart failure with reduced ejection fraction: Status: Chronic Assessment and plan: continue IV diurieses, symptoms improving and decreased oxygen requirements. monitor I&O daily weights continue entresto and jardiance, I don't see a beta cyndi on her med list, unclear if she didn't tolerate. will defer to her high school science teacher. echo was completed in january 2022, no indication to repeat at this time troponin negative. no EKG changes. will change to acute status as we are actively diuresing with IV therapy (2) Chronic kidney disease: Status: Chronic Assessment and plan: stable, avoid nephrotoxic drugs, renal dosing as needed. voiding well. (3) Chronic obstructive pulmonary disease: Status: Chronic Assessment and plan: oxygen dependent and weaning as able. continue home regimen no evidence of exacerbation Qualifiers: COPD type: emphysema Emphysema type: centrilobular Qualified Code(s): J43.2 - Centrilobular emphysema (4) Polymyalgia rheumatica: Status: Chronic Assessment and plan: currently on a slow taper per rheumatology, on prednisone 15 mg daily. will continue. (5) Type 2 diabetes mellitus: Status: Chronic Assessment and plan: continue diabetic diet, sliding scale coverage as needed metformin on hold while hospitalized, resume at discharge if kidney function allows. hemoglobin A1C was 8.9 on April 02, 2022 diabetes solutions specialist consulted. (6) DVT prophylaxis: Status: Acute Assessment and plan: teds, enoxaparin (7) Discharge planning issues: Status: Acute Assessment and plan: case management following PT consulted anticipate need for skilled rehabilitation. referrals will be placed discussed with DR Guardado . Subjective Subjective Patient reports: no new complaints, feels better, shortness of breath (with some shortness of breath with ambulation, slowly improving. requiring 4 liters now with ambulation) and afebrile Exam Const General: cooperative, comfortable, no acute distress and frail appearing Eyes Pupils: PERRL Resp Effort & Inspection: able to speak in complete sentences and labored Auscultation: crackles Cardio Rate: regular rate Rhythm: regular rhythm GI Inspection: normal to inspection Auscultation: normal bowel sounds Skin General skin exam: no rashes or lesions noted Neuro General: patient alert and patient oriented x3 Extrem Other: distal pulses intact 1+ edema bilaterally Objective Last Vital Signs Temp 36.9 C 05/02/22 15:22 Pulse 100 H 05/02/22 15:22 Resp 22 05/02/22 15:22 BP 101/62 05/02/22 15:22 Pulse Ox 91 L 05/02/22 15:22 Laboratory Results - last 24 hr 05/02/22 05/02/22 05/02/22 11:00 11:00 11:00 WBC 10.94 H RBC 3.52 L Hgb 9.5 L Hct 31.8 L MCV 90 MCH 27.0 MCHC 29.9 L RDW 13.5 Plt Count 246 MPV 10.4 Immature Gran % 0.5 Neutrophils % 89.1 Lymphocytes % 3.7 Monocytes % 6.3 Eosinophils % 0.3 Basophils % 0.1 Nucleated RBC % 0.0 Absolute Neutrophils 9.75 H Absolute Lymphocytes 0.40 L Absolute Monocytes 0.69 Absolute Eosinophils 0.03 Absolute Basophils 0.01 Sodium 137 Potassium 3.3 L Chloride 98 Carbon Dioxide 34.5 H Anion Gap 4.5 BUN 43 H Creatinine 1.5 H Estimated GFR/1.73 m2 34.13 Glucose 197 H Calcium 9.2 Magnesium 2.0 NT-Pro-B Natriuret Pep 96156 H
[2022-05-02] MEDS: Potassium Chloride 20 MEQ TABCR PO (16:43)
[2022-05-02] MEDS: Atorvastatin 40 MG TAB 80 MG PO (19:26)
[2022-05-02] MEDS: Albuterol HFA 8 GM 60 PUFF INH IH (19:27)
[2022-05-02] MEDS: Gabapentin 100 MG CAP PO (21:59)
[2022-05-02 23:11] VITALS: O2SAT 97
[2022-05-03] MEDS: Albuterol HFA 8 GM 60 PUFF INH IH ×2 (01:38→09:23)
[2022-05-03 01:42] VITALS: BP 103/69; PULSE 83; RESP 14; TEMP 36.5; O2SAT 97
[2022-05-03 01:50] VITALS: RESP 14; O2SAT 91
[2022-05-03 06:15] LABS: Abs Immature Grans 0.04 10^3/uL (0.0-0.06); Absolute Basophil Count 0.01 10^3/uL (0.0-0.2); Absolute Neutrophil Count 6.61 10^3/uL (1.2-6.7); Basophils % 0.1; Eosinophils % 1.1; HCT 30.3 % (36.0-46.0); HGB 8.9 g/dL (11.2-15.7); Immature Grans % 0.5; Lymphocytes % 14.7; MCH 26.2 pg (27.0-33.0); MCHC 29.4 % (32.0-36.0); MCV 89 fL (80-95); MPV 10.3 fL (8.0-11.0); Neutrophils % 74.6; Platelet Count 227 10^3/uL (130-400); RDW 13.4 % (11.7-14.6); WBC 8.86 10^3/uL (4.4-10.8)
[2022-05-03 06:24] LABS: Anion Gap 5.5 mmol/L (3-11); BUN 53 mg/dL (7-18); CO2 32.5 mmol/L (21.0-32.0); CREATININE 1.6 mg/dL (0.55-1.02); Calcium 9.1 mg/dL (8.5-10.1); Chloride 99 mmol/L (98-107); Estimated GFR 31.68 (mL/min/1.73m2); Glucose 153 mg/dL (74-106); Potassium 3.5 mmol/L (3.5-5.1); Sodium 137 mmol/L (136-145)
[2022-05-03 07:45] VITALS: BP 111/67; PULSE 73; RESP 18; TEMP 36; O2SAT 93
[2022-05-03] MEDS: Furosemide 100 MG/10 ML VIAL 80 MG IVP ×2 (09:23→17:06)
[2022-05-03] MEDS: Normal Saline Flush 10 ML SYR IVP (09:24)
[2022-05-03] MEDS: Insulin Aspart 300 UNITS/3 ML PEN SC ×4 (09:24→21:10)
[2022-05-03] MEDS: predniSONE 5 MG TAB 15 MG PO (09:25)
[2022-05-03] MEDS: Enoxaparin 40 MG/0.4 ML SYR SC (09:25)
[2022-05-03] MEDS: Cholecalciferol (Vitamin D3) 1,000 UNIT TAB 1000 UNITS PO (09:26)
[2022-05-03] MEDS: Empaglifozin 10 MG TAB PO (09:26)
[2022-05-03] MEDS: Sacubitril/Valsartan 24 mg/26 mg TAB 1 EACH PO ×2 (09:26→19:50)
[2022-05-03] MEDS: glipiZIDE 5 MG TAB 2.5 MG PO (09:26)
[2022-05-03] MEDS: Aspirin E.C. 81 MG TABEC PO (09:26)
[2022-05-03] MEDS: Cetirizine 10 MG TAB PO (09:27)
[2022-05-03] MEDS: Acetaminophen 500 MG TAB 1000 MG PO ×3 (09:27→21:10)
[2022-05-03] MEDS: Calcium Carbonate 1.5 GM TAB PO ×2 (09:27→19:50)
[2022-05-03] MEDS: Omeprazole 20 MG CAPCR PO (09:27)
[2022-05-03] MEDS: amLODIPine 5 MG TAB PO (09:28)
[2022-05-03] MEDS: Potassium Chloride 20 MEQ TABCR PO ×3 (09:28→17:07)
--- NOTE | 2022-05-03 10:07 | IN_ITS ---
Date of service: 05/03/22 Time of Service: 09:15 PT Notes Visit Reasons: Acute on Chronic Heart Failure Physical Therapy Inpatient Initial Evaluation Date: 05/03/22 Referring Doctor:Geoffrey Sandra NP PT Orders: PT CONSULT: Eval/Treat Precautions: Activity as tolerated. On 2 L of oxygen via NC. Patient Profile/Admitting Diagnosis:?Patient is a 71-year-old female who presented to the ED on 05/01/22 with increased shortness of breath- diagnosed with Chronic obstructive pulmonary disease, Heart failure with reduced ejection fraction, Chronic kidney disease, Acute hypokalemia, Hypomagnesemia PMHX: (Updated 05/02/22 @ 17:27 by Lynnette Sandra NP) Discharge planning issues (Acute) DVT prophylaxis (Acute) Acute hypokalemia (Acute) Hypomagnesemia (Acute) Chronic kidney disease (Chronic) 04/2022-stage 3, Cr-1.9 Acute exacerbation of chronic obstructive pulmonary disease (Acute) Acute exacerbation of congestive heart failure (Acute) CVA (cerebral vascular accident) (Acute ~12/2021) Heart failure with reduced ejection fraction (Chronic) Chronic obstructive pulmonary disease (Chronic) 09/2021- O2 dependent on 2 l/min (O2 sat at 83% RA) Polymyalgia rheumatica (Chronic) Type 2 diabetes mellitus (Chronic) Carotid atherosclerosis (Chronic) Essential hypertension (Chronic) GERD (gastroesophageal reflux disease) (Chronic) Pulmonary nodule (Chronic) Nicotine dependence, cigarettes, uncomplicated (Chronic) Annual LDCT Osteoarthritis of hips, bilateral (Chronic) Diabetic nephropathy (Chronic) Diabetic retinopathy (Chronic) Ventral hernia (Chronic) Generalized anxiety disorder (Chronic) Benign positional vertigo (Chronic) 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 She now has a pole installed close to her bed to facilitate safe transfers and short distance walking. Home is much more handicap-accessible with assistance from [facility]. She has a basement but she stresses that she does not need to go down as she has everything she needs on the main floor of the apartment.? Modified independent with all mobility ADL performance using FWW. On chronic oxygen supplementation using 2L/min. Equipment Owned/DME: FWW, 4WW Subjective: Beth notes that she is really tired for did not sleep well at all last night. Unsure how much she is going to be able to do this morning. Objective: General Observation:?Mild swelling to bilateral legs- placed MARY ANN stocking on Mental Status: Alert and oriented x 4 Pain: Denies headache, chest pain, and lightheadedness Vital Signs: Oxygen saturation stayed above 89% on 2L/min during and after ambulation activity ROM: Right Upper Extremity: ? Shoulder Flexion WFL. Shoulder abduction WFL. Elbow flexion WFL. Wrist flexion WFL. Opening and closing of hand WFL. Left Upper Extremity:? Shoulder Flexion allows only up to 90 degrees. Shoulder abduction allows only up to 80 degrees. Elbow flexion WFL. Wrist flexion WFL. Opening and closing of hand WFL. Right Lower Extremity: Hip flexion WFL. Hip abduction WFL. Knee flexion WFL. Ankle dorsiflexion to neutral only. Ankle plantarflexion WFL. Left Lower Extremity: Hip flexion unable to bend beyond 90 due to left hip pain. Hip abduction WFL. Knee flexion WFL. Ankle dorsiflexion to neutral only. Ankle plantarflexion WFL. Strength: Right Upper Extremity: Shoulder flexors 4-/5. Shoulder abductors 4-/5. Elbow flexors 4/5. Elbow extensors 4/5. Gasoline Dragline Operator weak but functional. Left Upper Extremity: Shoulder flexors 3-/5. Shoulder abductors 3-/5. Elbow flexors 4-/5. Elbow extensors 4-/5. Gasoline Dragline Operator weak but functional. Right Lower Extremity: Hip flexors 3+/5. Hip abductors 4-/5. Knee flexors 4/5. Knee extensors 4-/5. Ankle dorsiflexors 3-/5. Ankle plantarflexors 4-/5. Left Lower Extremity:Hip flexors 3-/5. Hip abductors 3-/5. Knee flexors 3/5. Knee extensors 3/5. Ankle dorsiflexors 3-/5. Ankle plantarflexors 4/5. Sensation: Intact as to pain and pressure on bilateral lower extremities Bed Mobility/Transfers: Rolling independent Supine to sit SBA- independent Sit to stand SBA Stand to sit SBA Bed to chair? SBA with FWW Chair to bed SBA with FWW Gait: Patient tolerated level surface ambulation in room using front-wheeled walker with stand by assist.? Reciprocal step through gait pattern.? Terri decreased.? Denies headache, chest pain, and dizziness. O2 saturation above 89% on 2 L/min. Balance: Static Sitting: Normal Dynamic Sitting: Normal Static Standing: Fair Dynamic Standing: Fair Special Tests: Mobility Limitations Standardized Measure [facility]-PAC 6 clicks Basic Mobility Inpatient Short Form: Raw Score: 22? CMS Score: 21% deficit? ? ? Informed Consent/Education:? Patient instructed in purpose of PT consult and plan of care. Assessment: Patient is a 71-year-old female who presented to the ED on 05/01/2022 due to complaints of shortness of breath. Patient is diagnosed with Chronic obstructive pulmonary disease, Heart failure with reduced ejection fraction, Chronic kidney disease, Acute hypokalemia, Hypomagnesemia Patient presents with clinical signs and symptoms consistent with current/admitting diagnoses that have resulted to mobility limitations and gait instability as demonstrated by the following impairment level findings: 1.? Decreased strength to B LE major muscle groups 2.? Impaired standing balance 3.? Impaired activity tolerance 4.? Limitation of joint range of motion in left shoulder and left hip 5. Shortness of breath Impairments are contributing to the following functional limitations: 1.? Inability to safely ambulate without assistive device 2.? Increase completion time for mobility ADL performance 3.? Increased fall risk Patient is assessed as a 47411 moderate complexity based on the following: History: 69-year-old female with impairment level findings, functional limitations, and [facility] deficit score of 21% Examination: Demonstrable impairment in strength, balance, and activity tolerance with underlying impairments and functional limitations as documented above Presentation: Evolving Decision Makin moderate complexity Goals: Goals X1 week 1. Supine-Sit independent 2. Sit-Supine independent 3. Sit-Stand independent 4. Stand-Sit independent 5. Bed-Chair independent 6. Chair-Bed independent 7. Independent gait on level surface with use of least restrictive device for at least 300 feet without report of pain nor dyspnea 8. Independent stair negotiation while holding onto bilateral rails for at least 10 steps without report of pain nor dyspnea 9. Independent with home exercise program 10. Good static and dynamic standing balance/tolerance Plan of Care/Treatment Plan: 1-2x/day, 7 days/week x 1 week. Plan of care has been reviewed with the PATTERN DRAFTER providing the service under Physical Therapy direction. Initiate Physical Therapy intervention for strengthening, bed mobility, transfers, gait, stairs, balance training, use of assistive device. DISCHARGE RECOMMENDATIONS:SNF for continued rehabilitation to promote functional endurance, strength and mobility TREATMENT CODE/TIME: 97605 x 20 minutes,? 78335 x 10 minutes beginning at 9:15 AM. Thank you very much for this referral. Joan Scott,[facility] [place], [place] Disclaimer: This note was created using [employer] voice recognition software. It was reviewed for major content. However, there may be multiple small discrepancies and errors due to the voice recognition aspects of the software.
--- NOTE | 2022-05-03 11:45 | W.PM.PROGNOT ---
Date of Service Date of service: 05/03/22 Time of Service: 11:45 Assessment and Plan Assessment and plan (1) Heart failure with reduced ejection fraction: Status: Chronic Assessment and plan: continue IV diurieses, symptoms improving and decreased oxygen requirements. monitor I&O daily weights continue entresto and jardiance, I don't see a beta cyndi on her med list, unclear if she didn't tolerate. will defer to her channel sales director. echo was completed in january 2022, no indication to repeat at this time troponin negative. no EKG changes. will change to acute status as we are actively diuresing with IV therapy (2) Chronic kidney disease: Status: Chronic Assessment and plan: stable, avoid nephrotoxic drugs, renal dosing as needed. voiding well. BUN and creatinine elevated, will repeat tomorrow (3) Chronic obstructive pulmonary disease: Status: Chronic Assessment and plan: oxygen dependent and weaning as able. continue home regimen no evidence of exacerbation Qualifiers: COPD type: emphysema Emphysema type: centrilobular Qualified Code(s): J43.2 - Centrilobular emphysema (4) Polymyalgia rheumatica: Status: Chronic Assessment and plan: currently on a slow taper per rheumatology, on prednisone 15 mg daily. will continue. (5) Type 2 diabetes mellitus: Status: Chronic Assessment and plan: continue diabetic diet, sliding scale coverage as needed metformin on hold while hospitalized, resume at discharge if kidney function allows. hemoglobin A1C was 8.9 on April 02, 2022 nursery school attendant consulted. Glucose continues to be high - added Lantus 15 mg in the morning; changed sliding scale to resistant. (6) DVT prophylaxis: Status: Acute Assessment and plan: teds, enoxaparin (7) Discharge planning issues: Status: Acute Assessment and plan: case management following PT consulted anticipate need for skilled rehabilitation. referrals will be placed discussed with Dr. Guardado . Subjective Subjective Patient reports: no new complaints Interval history since last seen: Beth is comfortable sitting in the chair, she has chronic back pain that she is complaining about, however she does not want medicaiton other than tylenol. She reports taking 300 mg Gabapentin at HS - I checked with the pharmacy and she is able to take that dose, increased to what she is taking at home. She does not like using a heating pad. Exam Const General: cooperative, comfortable, no acute distress and frail appearing Eyes Pupils: PERRL Resp Effort & Inspection: able to speak in complete sentences and labored Auscultation: crackles Cardio Rate: regular rate Rhythm: regular rhythm GI Inspection: normal to inspection Auscultation: normal bowel sounds Skin General skin exam: no rashes or lesions noted Neuro General: patient alert and patient oriented x3 Extrem Other: distal pulses intact 1+ edema bilaterally Objective Last Vital Signs Temp 36 C L 05/03/22 07:45 Pulse 73 05/03/22 07:45 Resp 18 05/03/22 07:45 BP 111/67 05/03/22 07:45 Pulse Ox 93 05/03/22 07:45 Laboratory Results - last 24 hr 05/02/22 05/03/22 05/03/22 11:00 05:58 05:58 WBC 8.86 RBC 3.40 L Hgb 8.9 L Hct 30.3 L MCV 89 MCH 26.2 L MCHC 29.4 L RDW 13.4 Plt Count 227 MPV 10.3 Immature Gran % 0.5 Neutrophils % 74.6 Lymphocytes % 14.7 Monocytes % 9.0 Eosinophils % 1.1 Basophils % 0.1 Nucleated RBC % 0.0 Absolute Neutrophils 6.61 Absolute Lymphocytes 1.30 Absolute Monocytes 0.80 Absolute Eosinophils 0.10 Absolute Basophils 0.01 Sodium 137 Potassium 3.5 Chloride 99 Carbon Dioxide 32.5 H Anion Gap 5.5 BUN 53 H Creatinine 1.6 H Estimated GFR/1.73 m2 31.68 Glucose 153 H Calcium 9.1 Magnesium 2.0 Reviewed Pertinent PMH: Yes
[2022-05-03 16:00] VITALS: BP 109/62; PULSE 81; RESP 18; TEMP 36.2; O2SAT 94
[2022-05-03] MEDS: Atorvastatin 40 MG TAB 80 MG PO (19:50)
[2022-05-03] MEDS: Gabapentin 300 MG CAP PO (20:32)
[2022-05-03 23:47] VITALS: BP 102/60; PULSE 86; RESP 18; TEMP 36.7; O2SAT 95
[2022-05-04] MEDS: Acetaminophen 500 MG TAB 1000 MG PO ×3 (01:55→20:25)
[2022-05-04 06:04] LABS: Abs Immature Grans 0.02 10^3/uL (0.0-0.06); Absolute Basophil Count 0.01 10^3/uL (0.0-0.2); Absolute Eosinophil Count 0.09 10^3/uL (0.0-0.7); Absolute Lymphocyte Count 0.93 10^3/uL (1.2-3.4); Absolute Neutrophil Count 6.17 10^3/uL (1.2-6.7); Basophils % 0.1; Eosinophils % 1.1; HCT 29.9 % (36.0-46.0); HGB 9.2 g/dL (11.2-15.7); Immature Grans % 0.2; Lymphocytes % 11.6; MCH 27.4 pg (27.0-33.0); MCHC 30.8 % (32.0-36.0); MCV 89 fL (80-95); MPV 10.6 fL (8.0-11.0); Platelet Count 236 10^3/uL (130-400); RBC 3.36 10^6/uL (3.93-5.22); RDW 13.5 % (11.7-14.6); RDW-SD 44.4 fL; WBC 8.02 10^3/uL (4.4-10.8)
[2022-05-04 06:26] LABS: Anion Gap 1.9 mmol/L (3-11); BUN 54 mg/dL (7-18); CO2 36.1 mmol/L (21.0-32.0); CREATININE 1.7 mg/dL (0.55-1.02); Chloride 100 mmol/L (98-107); Estimated GFR 29.54 (mL/min/1.73m2); Glucose 234 mg/dL (74-106); Magnesium 2.1 mg/dL (1.8-2.4); Potassium 3.8 mmol/L (3.5-5.1); Sodium 138 mmol/L (136-145)
[2022-05-04 07:16] VITALS: BP 109/73; PULSE 81; RESP 18; TEMP 35.6; O2SAT 96
[2022-05-04] MEDS: Normal Saline Flush 10 ML SYR IVP ×2 (07:45→16:01)
[2022-05-04] MEDS: Aspirin E.C. 81 MG TABEC PO (07:48)
[2022-05-04] MEDS: Furosemide 100 MG/10 ML VIAL 80 MG IVP ×2 (07:49→16:00)
[2022-05-04] MEDS: Enoxaparin 40 MG/0.4 ML SYR SC (07:49)
[2022-05-04] MEDS: predniSONE 5 MG TAB 15 MG PO (07:49)
[2022-05-04] MEDS: Omeprazole 20 MG CAPCR PO (07:50)
[2022-05-04] MEDS: Cetirizine 10 MG TAB PO (07:50)
[2022-05-04] MEDS: Insulin Aspart 300 UNITS/3 ML PEN SC ×4 (07:50→20:26)
[2022-05-04] MEDS: glipiZIDE 5 MG TAB 2.5 MG PO (07:51)
[2022-05-04] MEDS: Cholecalciferol (Vitamin D3) 1,000 UNIT TAB 1000 UNITS PO (07:52)
[2022-05-04] MEDS: amLODIPine 5 MG TAB PO (07:52)
[2022-05-04] MEDS: Empaglifozin 10 MG TAB PO (07:52)
[2022-05-04] MEDS: Potassium Chloride 20 MEQ TABCR PO (07:52)
[2022-05-04] MEDS: Sacubitril/Valsartan 24 mg/26 mg TAB 1 EACH PO ×2 (07:52→20:25)
[2022-05-04] MEDS: Calcium Carbonate 1.5 GM TAB PO ×2 (07:52→20:25)
[2022-05-04] MEDS: Albuterol HFA 8 GM 60 PUFF INH IH (07:56)
[2022-05-04] MEDS: Insulin Glargine 300 UNITS/3 ML PEN 15 UNITS SC (08:50)
--- NOTE | 2022-05-04 10:34 | PT.INTREAT ---
Date of service: 05/04/22 Time of Service: 10:05 PT Notes Visit Reasons: Acute on Chronic Heart Failure Inpatient Physical Therapy Treatment Note [facility] Date: 05/04/2022 PRECAUTIONS: Activity as tolerated SUBJECTIVE: Beth states that she feels tired today. She is pleasant and agreeable to participating in PT. She is hopeful that she can discharge to a SNF-level rehab once medically cleared to continue global strengthening efforts with PT and OT prior to returning to home. She reports that she continues to experience weakness in B LE L>R. OBJECTIVE: PAIN: Patient c/o B calf discomfort with gait training BED MOBILITY/TRANSFERS Sit-stand: SBA Stand-sit: SBA GAIT Assistive Device: FWW Weight bearing: Full Assist: SBA Distance: 80' x2 Deviation: Seated rest due to increased fatigue and weakness THEREX: Patient was instructed in a LE strengthening program, completed in a seated position to include ankle pumps, heel raises, hip flexion, hip abduction and LAQ (with which she requires assist on L for full range). ASSESSMENT: Patient continues to demonstrate B LE weakness, L>R. She demonstrates limited activity tolerance, requiring seated rest with gait training due to global and B LE fatigue. PLAN: Continue with global strengthening and mobility training, as tolerated, for improved activity tolerance. TREATMENT CODE/TIME: 25 minutes; 77231, 61638 (10:05)
--- NOTE | 2022-05-04 11:19 | PGE_ITS ---
Date of Service Date of service: 05/04/22 Time of Service: 11:19 Assessment and Plan Assessment and plan (1) Heart failure with reduced ejection fraction: Status: Chronic Assessment and plan: continue IV diurieses, symptoms improving and decreased oxygen requirements. - decreased to 2 LPM monitor I&O daily weights continue entresto and jardiance echo was completed in january 2022, no indication to repeat at this time (2) Chronic kidney disease: Status: Chronic Assessment and plan: stable, avoid nephrotoxic drugs, renal dosing as needed. voiding well. BUN and creatinine elevated, but flat (3) Chronic obstructive pulmonary disease: Status: Chronic Assessment and plan: oxygen dependent and weaning as able. continue home regimen no evidence of exacerbation SPO2 high 90's on 3 LPM, will decrease to 2 LPM Qualifiers: COPD type: emphysema Emphysema type: centrilobular Qualified Code(s): J43.2 - Centrilobular emphysema (4) Polymyalgia rheumatica: Status: Chronic Assessment and plan: currently on a slow taper per rheumatology, on prednisone 15 mg daily. will continue. (5) Type 2 diabetes mellitus: Status: Chronic Assessment and plan: continue diabetic diet, sliding scale coverage as needed metformin on hold while hospitalized, resume at discharge if kidney function allows. hemoglobin A1C was 8.9 on April 02, 2022 childbirth educator consulted. Glucose continues to be high - added Lantus 15 mg in the morning; changed sliding scale to resistant. Given 9 units this am, 21 units last PM prior to bed (6) DVT prophylaxis: Status: Acute Assessment and plan: teds, enoxaparin (7) Discharge planning issues: Status: Acute Assessment and plan: case management following - PT consulted anticipate need for skilled rehabilitation - referrals sent for rehab - holiday weekend, might be Thu before placement available - prefers to go to the [facility] discussed with Dr. Guardado . Subjective Subjective Patient reports: no new complaints Exam Const General: cooperative, comfortable, no acute distress and frail appearing Eyes Pupils: PERRL Resp Effort & Inspection: able to speak in complete sentences and labored Auscultation: crackles Cardio Rate: regular rate Rhythm: regular rhythm GI Inspection: normal to inspection Auscultation: normal bowel sounds Skin General skin exam: no rashes or lesions noted Neuro General: patient alert and patient oriented x3 Extrem Other: distal pulses intact 1+ edema bilaterally Objective Last Vital Signs Temp 35.6 C L 05/04/22 07:16 Pulse 81 05/04/22 07:16 Resp 18 05/04/22 07:16 BP 109/73 05/04/22 07:16 Pulse Ox 96 05/04/22 07:16 Laboratory Results - last 24 hr 05/04/22 05/04/22 05:41 05:41 WBC 8.02 RBC 3.36 L Hgb 9.2 L Hct 29.9 L MCV 89 MCH 27.4 MCHC 30.8 L D RDW 13.5 Plt Count 236 MPV 10.6 Immature Gran % 0.2 Neutrophils % 77.0 Lymphocytes % 11.6 Monocytes % 10.0 Eosinophils % 1.1 Basophils % 0.1 Nucleated RBC % 0.0 Absolute Neutrophils 6.17 Absolute Lymphocytes 0.93 L Absolute Monocytes 0.80 Absolute Eosinophils 0.09 Absolute Basophils 0.01 Sodium 138 Potassium 3.8 Chloride 100 Carbon Dioxide 36.1 H Anion Gap 1.9 L BUN 54 H Creatinine 1.7 H Estimated GFR/1.73 m2 29.54 Glucose 234 H Calcium 9.0 Magnesium 2.1 Reviewed Pertinent PMH: Yes
[2022-05-04 15:45] VITALS: BP 121/77; PULSE 88; RESP 18; TEMP 36.2; O2SAT 93
[2022-05-04 20:22] VITALS: BP 113/55; PULSE 98; RESP 20; TEMP 36.1; O2SAT 93
[2022-05-04] MEDS: Atorvastatin 40 MG TAB 80 MG PO (20:25)
[2022-05-04] MEDS: Gabapentin 300 MG CAP PO (20:25)
--- NOTE | 2022-05-04 21:35 | NUR.NOTE ---
Nursing Note: PT questioning why she has no Hazelnut creamer in the refrigerator. Thinks it was thrown away. I told her that this morning I informed her that her creamer was almost empty. Insisted it was the aide that tossed it. but it was not Yamilet. Yamilet was the aide this morning. Pt had a friend to bring creamer to the ER for me to roller picker.
[2022-05-05] VITALS (8 sets, daily range): BP systolic 102–116; BP diastolic 63–70; PULSE 74–97; RESP 14–18; TEMP 35.9–36.9; O2SAT 92–97
[2022-05-05] MEDS: Albuterol HFA 8 GM 60 PUFF INH IH ×2 (01:44→08:00)
[2022-05-05 06:48] LABS: Abs Immature Grans 0.03 10^3/uL (0.0-0.06); Absolute Basophil Count 0.02 10^3/uL (0.0-0.2); Absolute Eosinophil Count 0.11 10^3/uL (0.0-0.7); Absolute Lymphocyte Count 1.31 10^3/uL (1.2-3.4); Absolute Monocyte Count 0.98 10^3/uL (0.1-0.8); Absolute Neutrophil Count 8.44 10^3/uL (1.2-6.7); Basophils % 0.2; HCT 33.9 % (36.0-46.0); HGB 9.9 g/dL (11.2-15.7); Immature Grans % 0.3; MCH 26.4 pg (27.0-33.0); MCHC 29.2 % (32.0-36.0); MCV 90 fL (80-95); MPV 10.1 fL (8.0-11.0); Neutrophils % 77.5; Platelet Count 297 10^3/uL (130-400); RBC 3.75 10^6/uL (3.93-5.22); RDW 13.6 % (11.7-14.6); RDW-SD 45.1 fL; WBC 10.89 10^3/uL (4.4-10.8)
[2022-05-05 07:09] LABS: Anion Gap 4.4 mmol/L (3-11); BUN 53 mg/dL (7-18); CO2 35.6 mmol/L (21.0-32.0); CREATININE 1.9 mg/dL (0.55-1.02); Calcium 9.4 mg/dL (8.5-10.1); Chloride 99 mmol/L (98-107); Estimated GFR 25.98 (mL/min/1.73m2); Glucose 204 mg/dL (74-106); Magnesium 2.3 mg/dL (1.8-2.4); NT-proBNP 16180 pg/mL (<300); Sodium 139 mmol/L (136-145)
[2022-05-05] MEDS: Acetaminophen 500 MG TAB 1000 MG PO ×2 (07:58→16:02)
[2022-05-05] MEDS: Insulin Aspart 300 UNITS/3 ML PEN SC ×4 (07:59→21:05)
[2022-05-05] MEDS: Normal Saline Flush 10 ML SYR IVP ×2 (07:59→16:03)
[2022-05-05] MEDS: Insulin Glargine 300 UNITS/3 ML PEN 15 UNITS SC (07:59)
[2022-05-05] MEDS: Enoxaparin 40 MG/0.4 ML SYR SC (08:00)
[2022-05-05] MEDS: Furosemide 100 MG/10 ML VIAL 80 MG IVP ×2 (08:01→16:02)
[2022-05-05] MEDS: Aspirin E.C. 81 MG TABEC PO (08:02)
[2022-05-05] MEDS: glipiZIDE 5 MG TAB 2.5 MG PO (08:03)
[2022-05-05] MEDS: amLODIPine 5 MG TAB PO (08:04)
[2022-05-05] MEDS: Sacubitril/Valsartan 24 mg/26 mg TAB 1 EACH PO ×2 (08:04→21:04)
[2022-05-05] MEDS: predniSONE 5 MG TAB 15 MG PO (08:04)
[2022-05-05] MEDS: Potassium Chloride 20 MEQ TABCR PO (08:04)
[2022-05-05] MEDS: Omeprazole 20 MG CAPCR PO (08:04)
[2022-05-05] MEDS: Empaglifozin 10 MG TAB PO (08:05)
[2022-05-05] MEDS: Cholecalciferol (Vitamin D3) 1,000 UNIT TAB 1000 UNITS PO (08:05)
[2022-05-05] MEDS: Calcium Carbonate 1.5 GM TAB PO ×2 (08:05→21:04)
[2022-05-05] MEDS: Cetirizine 10 MG TAB PO (08:05)
--- NOTE | 2022-05-05 14:37 | PT.INTREAT ---
Date of service: 05/05/22 Time of Service: 14:15 PT Notes Visit Reasons: Acute on Chronic Heart Failure Inpatient Physical Therapy Treatment Note [facility] Date: 05/05/2022 PRECAUTIONS: Activity as tolerated SUBJECTIVE: Beth states that she feels tired today. She is pleasant and agreeable to participating in PT. OBJECTIVE: PAIN: Patient c/o B calf discomfort with gait training BED MOBILITY/TRANSFERS Sit-stand: I Stand-sit: I Bed-chair: I Chair-bed: I GAIT Assistive Device: 4WW Weight bearing: Full Assist: S Distance: 50' + 80' x2 Deviation: Seated rest due to increased fatigue and weakness, 3L O2 (baseline supplemental O2 requirement) 4WW MECHANICS: Patient demonstrates appropriate and safe use of 4WW, including brakes, locks, and seated for seated rests as needed. TOILETING: Patient toileted independently utilizing bedside commode. ASSESSMENT: Patient continues to complain of B calf pain with gait training. She demonstrates limited activity tolerance, requiring seated rest with gait training due to global and B LE fatigue. PLAN: Continue with global strengthening and mobility training, as tolerated, for improved activity tolerance. TREATMENT CODE/TIME: 10 minutes; 11207 (14:15)
--- NOTE | 2022-05-05 16:22 | PGE_ITS ---
Date of Service Date of service: 05/05/22 Time of Service: 16:23 Assessment and Plan Assessment and plan (1) Heart failure with reduced ejection fraction: Status: Chronic Assessment and plan: continue IV diurieses, symptoms improving and decreased oxygen requirements. - decreased to 2 LPM monitor I&O daily weights down 0.2 kg since yesterday continue entresto and jardiance echo was completed in january 2022, no indication to repeat at this time (2) Chronic kidney disease: Status: Chronic Assessment and plan: stable, avoid nephrotoxic drugs, renal dosing as needed. voiding well. BUN and creatinine elevated, but flat (3) Chronic obstructive pulmonary disease: Status: Chronic Assessment and plan: oxygen dependent and weaning as able. continue home regimen no evidence of exacerbation SPO2 high 90's on 3 LPM, will decrease to 2 LPM Qualifiers: COPD type: emphysema Emphysema type: centrilobular Qualified Code(s): J43.2 - Centrilobular emphysema (4) Polymyalgia rheumatica: Status: Chronic Assessment and plan: currently on a slow taper per rheumatology, on prednisone 15 mg daily. will continue. (5) Type 2 diabetes mellitus: Status: Chronic Assessment and plan: continue diabetic diet, sliding scale coverage as needed metformin on hold while hospitalized, resume at discharge if kidney function allows. hemoglobin A1C was 8.9 on April 02, 2022 visual educator consulted. Glucose continues to be high - added Lantus 15 mg in the morning; changed sliding scale to resistant. Given 15 units this am, 9 units last PM prior to bed (6) DVT prophylaxis: Status: Acute Assessment and plan: teds, enoxaparin (7) Discharge planning issues: Status: Acute Assessment and plan: case management following - PT consulted anticipate need for skilled rehabilitation - referrals sent for rehab - holiday weekend, might be Wed before placement available - prefers to go to the [facility] discussed with Dr. Tobar . Subjective Subjective Patient reports: no new complaints Exam Const General: cooperative, comfortable, no acute distress and frail appearing Eyes Pupils: PERRL Resp Effort & Inspection: able to speak in complete sentences and labored Auscultation: crackles Cardio Rate: regular rate Rhythm: regular rhythm GI Inspection: normal to inspection Auscultation: normal bowel sounds Skin General skin exam: no rashes or lesions noted Neuro General: patient alert and patient oriented x3 Extrem Other: distal pulses intact 1+ edema bilaterally Objective Last Vital Signs Temp 35.9 C L 05/05/22 14:39 Pulse 83 05/05/22 14:39 Resp 16 05/05/22 14:39 BP 103/67 05/05/22 14:39 Pulse Ox 94 05/05/22 14:39 Laboratory Results - last 24 hr 05/05/22 05/05/22 06:15 06:35 WBC 10.89 H RBC 3.75 L Hgb 9.9 L Hct 33.9 L MCV 90 MCH 26.4 L MCHC 29.2 L D RDW 13.6 Plt Count 297 MPV 10.1 Immature Gran % 0.3 Neutrophils % 77.5 Lymphocytes % 12.0 Monocytes % 9.0 Eosinophils % 1.0 Basophils % 0.2 Nucleated RBC % 0.0 Absolute Neutrophils 8.44 H Absolute Lymphocytes 1.31 Absolute Monocytes 0.98 H Absolute Eosinophils 0.11 Absolute Basophils 0.02 Sodium 139 Potassium 4.0 Chloride 99 Carbon Dioxide 35.6 H Anion Gap 4.4 BUN 53 H Creatinine 1.9 H Estimated GFR/1.73 m2 25.98 Glucose 204 H Calcium 9.4 Magnesium 2.3 NT-Pro-B Natriuret Pep 70304 H
[2022-05-05] MEDS: Gabapentin 300 MG CAP PO (21:04)
[2022-05-05] MEDS: Atorvastatin 40 MG TAB 80 MG PO (21:04)
[2022-05-06 04:39] VITALS: O2SAT 93
[2022-05-06 07:04] LABS: Abs Immature Grans 0.04 10^3/uL (0.0-0.06); Absolute Basophil Count 0.02 10^3/uL (0.0-0.2); Absolute Eosinophil Count 0.09 10^3/uL (0.0-0.7); Absolute Lymphocyte Count 1.24 10^3/uL (1.2-3.4); Absolute Monocyte Count 1.04 10^3/uL (0.1-0.8); Basophils % 0.2; Eosinophils % 0.8; HCT 33.9 % (36.0-46.0); HGB 10.3 g/dL (11.2-15.7); Immature Grans % 0.4; Lymphocytes % 11.3; MCHC 30.4 % (32.0-36.0); MCV 89 fL (80-95); MPV 10.3 fL (8.0-11.0); Monocytes % 9.5; Neutrophils % 77.8; Platelet Count 304 10^3/uL (130-400); RBC 3.81 10^6/uL (3.93-5.22); RDW 13.8 % (11.7-14.6); RDW-SD 44.8 fL; WBC 10.93 10^3/uL (4.4-10.8)
[2022-05-06 07:16] LABS: Anion Gap 4.4 mmol/L (3-11); BUN 57 mg/dL (7-18); CO2 36.6 mmol/L (21.0-32.0); CREATININE 1.7 mg/dL (0.55-1.02); Calcium 9.8 mg/dL (8.5-10.1); Chloride 100 mmol/L (98-107); Estimated GFR 29.54 (mL/min/1.73m2); Glucose 154 mg/dL (74-106); Magnesium 2.6 mg/dL (1.8-2.4); Sodium 141 mmol/L (136-145)
[2022-05-06 07:45] VITALS: BP 118/58; PULSE 91; RESP 18; TEMP 36.1; O2SAT 94
[2022-05-06] MEDS: Cholecalciferol (Vitamin D3) 1,000 UNIT TAB 1000 UNITS PO (08:06)
[2022-05-06] MEDS: amLODIPine 5 MG TAB PO (08:07)
[2022-05-06] MEDS: Spironolactone 25 MG TAB PO (08:07)
[2022-05-06] MEDS: Empaglifozin 10 MG TAB 25 MG PO (08:07)
[2022-05-06] MEDS: Aspirin E.C. 81 MG TABEC PO (08:08)
[2022-05-06] MEDS: Potassium Chloride 20 MEQ TABCR PO (08:08)
[2022-05-06] MEDS: glipiZIDE 5 MG TAB 2.5 MG PO (08:08)
[2022-05-06] MEDS: Omeprazole 20 MG CAPCR PO (08:08)
[2022-05-06] MEDS: Calcium Carbonate 1.5 GM TAB PO ×2 (08:08→20:06)
[2022-05-06] MEDS: Sacubitril/Valsartan 24 mg/26 mg TAB 1 EACH PO ×2 (08:08→20:06)
[2022-05-06] MEDS: Cetirizine 10 MG TAB PO (08:08)
[2022-05-06] MEDS: Furosemide 100 MG/10 ML VIAL 80 MG IVP ×2 (08:09→16:52)
[2022-05-06] MEDS: Enoxaparin 40 MG/0.4 ML SYR SC (08:09)
[2022-05-06] MEDS: predniSONE 5 MG TAB 15 MG PO (08:09)
[2022-05-06] MEDS: Normal Saline Flush 10 ML SYR IVP (08:09)
[2022-05-06] MEDS: Insulin Aspart 300 UNITS/3 ML PEN SC ×4 (08:10→20:06)
[2022-05-06] MEDS: Insulin Glargine 300 UNITS/3 ML PEN 20 UNITS SC (08:11)
--- NOTE | 2022-05-06 12:38 | PT.INTREAT ---
Date of service: 05/06/22 Time of Service: 10:40 PT Notes Visit Reasons: Acute on Chronic Heart Failure Inpatient Physical Therapy Treatment Note [facility] Date: 05/06/2022 PRECAUTIONS: Activity as tolerated SUBJECTIVE: Beth is pleasant and agreeable to participating in PT. She reports that she continues to feel tired. She states that she hopes to be discharged to rehab today for further strengthening. OBJECTIVE: PAIN: Patient c/o back pain with gait training and at rest BED MOBILITY/TRANSFERS Sit-stand: I Stand-sit: I Bed-chair: I Chair-bed: I GAIT Assistive Device: 4WW Weight bearing: Full Assist: SBA Distance: 75' + 150' Deviation: Slow pacing, seated rest x1, 3L O2 VITALS: SaO2: 95% on 3L O2 with gait training THEREX: Patient was instructed in a LE strengthening program, completed in a seated position, to include: ankle pumps, heel raises, LAQ, hip flexion and hip abduction. TOILETING: Patient toileted utilizing bedside commode, independently. ASSESSMENT: Patient tolerated session well, although with some c/o increased fatigue with gait training. She was able to tolerate a progression in gait distance with FWW support and SBA. PLAN: Patient to discharge to SNF-level rehab later today, per provider. TREATMENT CODE/TIME: 24 minutes; 05132, 21626 (10:40)
--- NOTE | 2022-05-06 12:56 | W.PM.DS.N ---
Date of service: 05/06/22 Time of Service: 12:56 DS: Diagnosis Discharge Diagnosis (1) Heart failure with reduced ejection fraction: Status: Chronic (2) Chronic kidney disease: Status: Chronic (3) Chronic obstructive pulmonary disease: Status: Chronic (4) Polymyalgia rheumatica: Status: Chronic (5) Type 2 diabetes mellitus: Status: Chronic (6) DVT prophylaxis: Status: Acute (7) Discharge planning issues: Status: Acute Discharge Plan Disposition Patient Disposition: SNF (LEVEL [facility] Condition: Stable Discharge Details Reason For Visit: Acute on Chronic Heart Failure Admit Date/Time: 05/02/22 10:58 Admit Provider: Cristian Guardado Attending Provider: Cristian Guardado Primary Care Provider: Katherine Andre [facility] Course Hospital Course: This 71-year-old female with past medical history of CKD, COPD, CHF, polymyalgia rheumatica presented to the ED 05/02 with the complaint of shortness of breath that started at 3:00 am.? She denied any fever or chills.? She denied any chest discomfort.? She denied any calf pain or swelling.? She denied any pleuritic component to her pain.? She states she felt like she could not take a complete inhalation.? She noted some increased swelling in her legs.? She is chronically oxygen dependent at home on 2 to 3 L and is 97%.? She did not have changed from torsemide to Lasix last evening.? She states this was changed secondary to her CKD Home Meds and New Rx's Prescriptions: New Jardiance 10 mg Tablet 25 mg PO DAILY Qty: 0 0RF prednisone 5 mg Tablet 15 mg PO DAILY Qty: 0 0RF Continued calcium carbonate [Calcium 600] 600 mg calcium (1,500 mg) tablet 600 mg PO BID acetaminophen 500 mg tablet 1,000 mg PO Q6H PRN Label Comments: Max 6 tabs daily per pt albuterol sulfate 90 mcg/actuation HFA aerosol inhaler 2 puff inhalation Q6H PRN (Reason: shortness of breath or wheezing) Qty: 18 4RF glipizide 5 mg tablet 2.5 mg PO DAILY Qty: 45 3RF Rx Instructions: Half a tablet daily amlodipine 5 mg tablet 5 mg PO DAILY Qty: 90 3RF Rx Instructions: Take 1 tablet daily atorvastatin 80 mg tablet 80 mg PO QPM Qty: 90 3RF prednisone 10 mg tablet See Rx Instructions PO DAILY Qty: 18 0RF Rx Instructions: orally daily; 3 tabs a day for 3 days, then 2 tabs a day for 3 days then one tab for 3 days prednisone 5 mg tablet 5 mg PO DAILY Qty: 3 0RF Rx Instructions: to begin after completing the 20 mg dose on the taper (goal is to be taking 15 mg a day at this step) fluticasone propionate [Flonase Allergy Relief] 50 mcg/actuation spray,suspension 2 spray intranasal DAILY PRN (Reason: allergy symptoms) Qty: 16 4RF Rx Instructions: administer into each nostril metformin 500 mg tablet 1,000 mg PO BID Qty: 360 4RF cetirizine 10 mg tablet 10 mg PO DAILY Qty: 90 4RF Rx Instructions: take one tablet daily Bevespi Aerosphere 9-4.8 mcg HFA aerosol inhaler 1 puff inhalation BID Qty: 10.7 4RF Hold Instructions: Has not started and does not wish to for now Rx Instructions: 1 puff twice a day omeprazole 20 mg capsule,delayed release(DR/EC) 20 mg PO DAILY Qty: 90 4RF Entresto 24-26 mg tablet 1 tab PO BID Qty: 90 4RF cholecalciferol (vitamin D3) [Vitamin D3] 25 mcg (1,000 unit) Capsule 25 mcg PO DAILY Changed furosemide 40 mg tablet 40 mg PO 2XD Qty: 90 3RF Discontinued Jardiance 10 mg tablet 10 mg PO DAILY Qty: 90 3RF No Action (DME) blood-glucose meter [OneTouch Ultra2 Meter] Kit See Rx Instructions .MEDSUPPLY Qty: 1 2RF Rx Instructions: Check blood sugar twice a day (DME) blood sugar diagnostic Strip See Rx Instructions .MEDSUPPLY Qty: 200 4RF Rx Instructions: Check blood sugar twice a day (DME) lancets [OneTouch Delica Plus Lancet] 33 gauge misc See Rx Instructions .MEDSUPPLY Qty: 200 4RF Rx Instructions: Check blood sugar twice a day (DME) Aerochamber MV Spacer See Rx Instructions .ROUTE .MEDSUPPLY Qty: 2 4RF Rx Instructions: Use with inhalers Discharge Instructions Activity:: Activity as Tolerated Equipment/Supplies:: Oxygen (L/min Below) Diet:: Low Sodium Discharge Orders Discharge Orders: Discharge Order (Routine); Ordered 05/07/22 Ordered By: Kanchan Buchanan DS: Summary Time Spent with Patient providing and/or coordinating discharge services: Greater than 30 minutes Status at Discharge Functional status at discharge: uses cane/walker Overall status at discharge: patient is progressing back to baseline Mental Status: mental status grossly normal Speech and Movement: speech and movement normal Mood: congruent mood Affect: normal affect Exam Psych Mental Status: mental status grossly normal Speech and Movement: speech and movement normal Mood: congruent mood Affect: normal affect DS: Data Vitals/I&O Vitals and I&O: Vital Signs Temperature 36.1 C L 05/06/22 07:45 Temperature Source Tympanic 05/06/22 07:45 Pulse 91 H 05/06/22 07:45 Pulse Rhythm Regular 05/06/22 11:23 Pulse 96 H 05/01/22 10:50 Respiratory Rate 18 05/06/22 07:45 Respiratory Effort 05/06/22 11:23 Respiratory Depth Normal 05/06/22 11:23 Respiratory Pattern Normal 05/06/22 11:23 Blood Pressure 118/58 L 05/06/22 07:45 Blood Pressure Mean 68 05/01/22 10:01 Blood Pressure Position Sitting 05/01/22 07:55 Pulse Oximetry 94 05/06/22 07:45 Oxygen Delivery Method Nasal Cannula 05/06/22 07:45 Oxygen Flow Rate 2 05/06/22 07:45 Pain Level 0 05/06/22 07:45 Comment 05/01/22 22:03 Intake & Output 05/05/22 05/06/22 05/06/22 23:59 11:59 23:59 Intake Total 960 / 960 740 / 740 Output Total 1900 / 2750 1025 / 1625 600 / 1625 Balance -940 / -1790 -285 / -885 -600 / -885 Weight 76.9 kg Intake: Oral 960 / 960 740 / 740 Output: Urine 1900 / 2750 1025 / 1625 600 / 1625 Other: Urine Color Pale Yellow Yellow Yellow Urine Appearance Clear Clear Clear Urine Odor None None Comment mixed with stool, was not able to measure Urine mixed with the bowel movement. Stool Size Large Copious Stool Characteristics Soft Soft Formed Formed Brown Voiding Methods Bedside Commode Bedside Commode Bedside Commode Data Completed and Pending Labs on day of discharge: Labs from last 24 hours 05/06/22 05/06/22 06:42 06:42 WBC 10.93 H RBC 3.81 L Hgb 10.3 L Hct 33.9 L MCV 89 MCH 27.0 MCHC 30.4 L D RDW 13.8 Plt Count 304 MPV 10.3 Immature Gran % 0.4 Neutrophils % 77.8 Lymphocytes % 11.3 Monocytes % 9.5 Eosinophils % 0.8 Basophils % 0.2 Nucleated RBC % 0.0 Absolute Neutrophils 8.50 H Absolute Lymphocytes 1.24 Absolute Monocytes 1.04 H Absolute Eosinophils 0.09 Absolute Basophils 0.02 Sodium 141 Potassium 4.0 Chloride 100 Carbon Dioxide 36.6 H Anion Gap 4.4 BUN 57 H Creatinine 1.7 H Estimated GFR/1.73 m2 29.54 Glucose 154 H Calcium 9.8 Magnesium 2.6 H PFSH All Active Problems Discharge planning issues (Acute) DVT prophylaxis (Acute) Acute hypokalemia (Acute) Hypomagnesemia (Acute) Chronic kidney disease (Chronic) 04/2022-stage 3, Cr-1.9 Acute exacerbation of chronic obstructive pulmonary disease (Acute) Acute exacerbation of congestive heart failure (Acute) CVA (cerebral vascular accident) (Acute ~12/2021) Heart failure with reduced ejection fraction (Chronic) Chronic obstructive pulmonary disease (Chronic) 09/2021- O2 dependent on 2 l/min (O2 sat at 83% RA) Polymyalgia rheumatica (Chronic) Type 2 diabetes mellitus (Chronic) Carotid atherosclerosis (Chronic) Essential hypertension (Chronic) GERD (gastroesophageal reflux disease) (Chronic) Pulmonary nodule (Chronic) Nicotine dependence, cigarettes, uncomplicated (Chronic) Annual LDCT Osteoarthritis of hips, bilateral (Chronic) Diabetic nephropathy (Chronic) Diabetic retinopathy (Chronic) Ventral hernia (Chronic) Generalized anxiety disorder (Chronic) Benign positional vertigo (Chronic) 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 Father Diabetes Daughter No problems noted. Daughter No problems noted. Daughter No problems noted. Daughter No problems noted. 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
[2022-05-06 15:34] VITALS: BP 113/60; PULSE 98; RESP 18; TEMP 36.1; O2SAT 93
--- NOTE | 2022-05-06 17:50 | PGE_ITS ---
Date of Service Date of service: 05/06/22 Time of Service: 17:50 Assessment and Plan Assessment and plan (1) Heart failure with reduced ejection fraction: Status: Chronic Assessment and plan: continue IV diurieses, change to PO 05/07 - spironolactone 25 mg po was added yesterday- symptoms improving and decreased oxygen requirements. - decreased to 2 LPM monitor I&O daily weights down 0.8 kg since yesterday continue entresto and jardiance echo was completed in january 2022, no indication to repeat at this time (2) Chronic kidney disease: Status: Chronic Assessment and plan: stable, avoid nephrotoxic drugs, renal dosing as needed. voiding well. BUN and creatinine elevated, but flat (3) Chronic obstructive pulmonary disease: Status: Chronic Assessment and plan: oxygen dependent and weaning as able. continue home regimen no evidence of exacerbation SPO2 high 90's on 3 LPM, will decrease to 2 LPM Qualifiers: COPD type: emphysema Emphysema type: centrilobular Qualified Code(s): J43.2 - Centrilobular emphysema (4) Polymyalgia rheumatica: Status: Chronic Assessment and plan: currently on a slow taper per rheumatology, on prednisone 15 mg daily. will continue. (5) Type 2 diabetes mellitus: Status: Chronic Assessment and plan: continue diabetic diet, sliding scale coverage as needed metformin on hold while hospitalized, resume at discharge if kidney function allows. hemoglobin A1C was 8.9 on April 02, 2022 staff educator consulted. Glucose continues to be high - added Lantus 15 mg in the morning; changed sliding scale to resistant. Given 15 units this am, 9 units last PM prior to bed (6) DVT prophylaxis: Status: Acute Assessment and plan: teds, enoxaparin (7) Discharge planning issues: Status: Acute Assessment and plan: case management following - PT consulted anticipate need for skilled rehabilitation - referrals sent for rehab - accepted at [facility] - 05/[address] Tobar . Subjective Subjective Patient reports: no new complaints Interval history since last seen: She states she is feeling better, she is more awake and alert, sitting on the side of her bed. She c/o her chronic pain and is using the usual tools with good control. She was to go to the [facility] today, they called and had to postpone until 05/07 Exam Const General: cooperative, comfortable, no acute distress and frail appearing Eyes Pupils: PERRL Chest Chest: normal inspection of the chest Resp Effort & Inspection: able to speak in complete sentences Auscultation: clear to auscultation bilaterally and diminished lung sounds Cardio Rate: regular rate Rhythm: regular rhythm GI Inspection: normal to inspection Auscultation: normal bowel sounds Skin General skin exam: no rashes or lesions noted Neuro General: patient alert and patient oriented x3 Extrem Other: distal pulses intact 1+ edema bilaterally Objective Last Vital Signs Temp 36.1 C L 05/06/22 15:34 Pulse 98 H 05/06/22 15:34 Resp 18 05/06/22 15:34 BP 113/60 05/06/22 15:34 Pulse Ox 93 05/06/22 15:34 Laboratory Results - last 24 hr 05/06/22 05/06/22 06:42 06:42 WBC 10.93 H RBC 3.81 L Hgb 10.3 L Hct 33.9 L MCV 89 MCH 27.0 MCHC 30.4 L D RDW 13.8 Plt Count 304 MPV 10.3 Immature Gran % 0.4 Neutrophils % 77.8 Lymphocytes % 11.3 Monocytes % 9.5 Eosinophils % 0.8 Basophils % 0.2 Nucleated RBC % 0.0 Absolute Neutrophils 8.50 H Absolute Lymphocytes 1.24 Absolute Monocytes 1.04 H Absolute Eosinophils 0.09 Absolute Basophils 0.02 Sodium 141 Potassium 4.0 Chloride 100 Carbon Dioxide 36.6 H Anion Gap 4.4 BUN 57 H Creatinine 1.7 H Estimated GFR/1.73 m2 29.54 Glucose 154 H Calcium 9.8 Magnesium 2.6 H
--- NOTE | 2022-05-06 19:21 | CMPROGNOTE_ITS ---
- If Service Date Differs Date of service: 05/06/22 Time of Service: 19:21 Care Management Progress Note S/O:Beth was sitting up in a chair playing [employer] with a friend. She informed CM that Lida was unable to visit as she is babysitting. Beth received a bed offer from [facility] but they were unable to take any admissions today. Hopefully she can transfer tomorrow. Beth was in good spirits and shared that she is feeling well. A: Beth is a 71 year old woman admitted on 05/01/22 with Heart Failure P:Beth will likely transfer to a SNF for a short term rehab stay prior to returning home with and COA services. She received a bed offer from [facility] today but they were unable to take any admissions today.She will follow up with her PCP, practice administrator and plan of care as instructed when she returns home. CM will continue to support Beth, her family and any discharge planning needs.
[2022-05-06] MEDS: Gabapentin 300 MG CAP PO (20:06)
[2022-05-06] MEDS: Atorvastatin 40 MG TAB 80 MG PO (20:06)
[2022-05-06 20:45] VITALS: RESP 18; O2SAT 93
[2022-05-06 21:41] VITALS: O2SAT 94
[2022-05-06 23:24] VITALS: BP 110/58; PULSE 91; RESP 18; TEMP 36.1; O2SAT 94
[2022-05-07 07:42] VITALS: BP 134/70; PULSE 95; RESP 19; TEMP 36; O2SAT 92
[2022-05-07] MEDS: Enoxaparin 40 MG/0.4 ML SYR SC (08:45)
[2022-05-07] MEDS: Normal Saline Flush 10 ML SYR IVP ×2 (08:45→20:24)
[2022-05-07] MEDS: Furosemide 100 MG/10 ML VIAL 80 MG IVP (08:46)
[2022-05-07] MEDS: Empaglifozin 10 MG TAB 25 MG PO (08:46)
[2022-05-07] MEDS: glipiZIDE 5 MG TAB 2.5 MG PO (08:47)
[2022-05-07] MEDS: Aspirin E.C. 81 MG TABEC PO (08:47)
[2022-05-07] MEDS: Cholecalciferol (Vitamin D3) 1,000 UNIT TAB 1000 UNITS PO (08:47)
[2022-05-07] MEDS: amLODIPine 5 MG TAB PO (08:48)
[2022-05-07] MEDS: Cetirizine 10 MG TAB PO (08:48)
[2022-05-07] MEDS: Omeprazole 20 MG CAPCR PO (08:48)
[2022-05-07] MEDS: Calcium Carbonate 1.5 GM TAB PO ×2 (08:49→20:24)
[2022-05-07] MEDS: predniSONE 5 MG TAB 15 MG PO (08:49)
[2022-05-07] MEDS: Spironolactone 25 MG TAB PO (08:49)
[2022-05-07] MEDS: Potassium Chloride 20 MEQ TABCR PO (08:49)
[2022-05-07] MEDS: Sacubitril/Valsartan 24 mg/26 mg TAB 1 EACH PO ×2 (08:49→20:24)
[2022-05-07] MEDS: Insulin Glargine 300 UNITS/3 ML PEN 20 UNITS SC (08:53)
[2022-05-07] MEDS: Insulin Aspart 300 UNITS/3 ML PEN SC ×4 (08:54→21:34)
[2022-05-07] MEDS: Acetaminophen 500 MG TAB 1000 MG PO ×2 (13:02→20:23)
[2022-05-07 15:21] VITALS: BP 107/71; PULSE 89; RESP 18; TEMP 36.3; O2SAT 96
--- NOTE | 2022-05-07 15:29 | PDOC.CMPRO ---
- If Service Date Differs Date of service: 05/07/22 Time of Service: 15:29 Care Management Progress Note S/O:Beth was sitting up in a chair when CM met with her. She stated that she is feeling well. Beth has been working with PT and has returned to baseline. [facility] is closed to admissions for the foreseeable future, so she will not be able to transfer there. After a long discussion, Beth decided that she will return home with a resumption of services. She is not willing to go to any other SNF. She does not care for [facility] and any other facility is further than she is willing to go. She stated that she feels she can manage with home health and Meals on Wheels. A: Beth is a 71 year old woman admitted on 05/01/22 with Heart Failure P:Beth will likely return home tomorrow with a resumption of home health services through [facility] for RN, PT and OT, as well as Meals on Wheels. She will follow up with her PCP, saw sharpener and plan of care as instructed when she returns home. Her friend will drive her home in a private vehicle. CM will continue to support Beth, her family and any discharge planning needs.
[2022-05-07] MEDS: Furosemide 80 MG TAB PO (15:38)
--- NOTE | 2022-05-07 17:43 | W.PM.PROGNOT ---
Date of Service Date of service: 05/07/22 Time of Service: 17:43 Assessment and Plan Assessment and plan (1) Heart failure with reduced ejection fraction: Status: Chronic Assessment and plan: continue IV diurieses, change to PO 05/07 - spironolactone 25 mg po was added - symptoms improving and decreased oxygen requirements. - decreased to 2 LPM which is her baseline home dose monitor I&O daily weights continue entresto and jardiance echo was completed in january 2022, no indication to repeat at this time EF 35% with global hypokinesis followed by DR Meneses (2) Chronic kidney disease: Status: Chronic Assessment and plan: stable, avoid nephrotoxic drugs, renal dosing as needed. voiding well. BUN and creatinine elevated, but flat (3) Chronic obstructive pulmonary disease: Status: Chronic Assessment and plan: oxygen dependent and at home dose. continue home regimen no evidence of exacerbation Qualifiers: COPD type: emphysema Emphysema type: centrilobular Qualified Code(s): J43.2 - Centrilobular emphysema (4) Polymyalgia rheumatica: Status: Chronic Assessment and plan: currently on a slow taper per rheumatology, on prednisone 15 mg daily. will continue. (5) Type 2 diabetes mellitus: Status: Chronic Assessment and plan: continue diabetic diet, sliding scale coverage as needed metformin on hold while hospitalized, resume at discharge if kidney function allows. hemoglobin A1C was 8.9 on April 02, 2022 educator senior clinical consulted. Glucose continues to be high - added Lantus 15 mg in the morning; changed sliding scale to resistant. Given 15 units this am, 9 units last PM prior to bed (6) DVT prophylaxis: Status: Acute Assessment and plan: teds, enoxaparin (7) Discharge planning issues: Status: Acute Assessment and plan: case management following - PT consulted plan now for discharge home with home health services tomorrow. discussed with Dr. Tobar . Subjective Subjective Patient reports: no new complaints, feels better, tolerating liquids well, tolerating a regular diet, voiding w/o difficulty and afebrile Exam Const General: cooperative, comfortable, no acute distress and frail appearing Eyes Pupils: PERRL Chest Chest: normal inspection of the chest Resp Effort & Inspection: able to speak in complete sentences Auscultation: clear to auscultation bilaterally and diminished lung sounds Cardio Rate: regular rate Rhythm: regular rhythm GI Inspection: normal to inspection Auscultation: normal bowel sounds Skin General skin exam: no rashes or lesions noted Neuro General: patient alert and patient oriented x3 Extrem Other: distal pulses intact 1+ edema bilaterally Objective Last Vital Signs Temp 36.3 C L 05/07/22 15:21 Pulse 89 05/07/22 15:21 Resp 18 05/07/22 15:21 BP 107/71 05/07/22 15:21 Pulse Ox 96 05/07/22 15:21
[2022-05-07] MEDS: Atorvastatin 40 MG TAB 80 MG PO (20:23)
[2022-05-07] MEDS: Gabapentin 300 MG CAP PO (20:23)
[2022-05-07 23:04] VITALS: BP 102/55; PULSE 71; RESP 18; TEMP 35.7; O2SAT 93
[2022-05-08] MEDS: Acetaminophen 500 MG TAB 1000 MG PO (01:58)
[2022-05-08 07:56] VITALS: BP 122/65; PULSE 97; RESP 20; TEMP 37.1; O2SAT 95
--- NOTE | 2022-05-08 08:47 | PDOC.HHF2F_ITS ---
Home Health Certification Home Health Certification: 1. Encounter Date and Reason I certify that Beth Pratt was seen by Lynnette Sandra on 05/08/22 and that I had a [id number] encounter with this patient that meets the physician face to face encounter requirements. 2. Clinical Findings Supporting Skilled Need and Homebound Status I certify that home health services are medically necessary, include either intermittent penitentiary and/or physical/speech therapy, and that this patient is homebound in that absences from the home require considerable and taxing effort and are infrequent or of short duration, or are attributable to the need to receive medical care. [X] (a) Attached documentation from encounter provides clinical findings supporting skilled need and homebound status (including what assistance patient requires to leave the home). The encounter with the patient was in whole, or in part, for the following medical condition, which is the primary reason for home health care: Acute on Chronic Heart Failure Intermediate: routine nursing for evaluation, medication oversight, disease monitoring Physical and Occupational Therapy: routine evaluation and treatment Homebound: patient is unable to safely leave the house unattended due to shortness of breath and fatigue severely limiting ambulation distance 3. Certification and Authentication I certify that I composed the above information based on my clinical judgement relating to this patient's medical condition and, if applicable, clinical findings communicated to me by the NPP or inpatient physician who performed the Home Health Referral. All further orders will be obtained through _Katherine Andre MD__(Community Based Physician - PCP)
[2022-05-08] MEDS: amLODIPine 5 MG TAB PO (08:50)
[2022-05-08] MEDS: Cholecalciferol (Vitamin D3) 1,000 UNIT TAB 1000 UNITS PO (08:51)
[2022-05-08] MEDS: Calcium Carbonate 1.5 GM TAB PO (08:51)
[2022-05-08] MEDS: Cetirizine 10 MG TAB PO (08:51)
[2022-05-08] MEDS: Aspirin E.C. 81 MG TABEC PO (08:51)
[2022-05-08] MEDS: Furosemide 80 MG TAB PO (08:52)
[2022-05-08] MEDS: Empaglifozin 10 MG TAB 25 MG PO (08:52)
[2022-05-08] MEDS: glipiZIDE 5 MG TAB 2.5 MG PO (08:53)
[2022-05-08] MEDS: Insulin Aspart 300 UNITS/3 ML PEN SC ×2 (08:55→13:19)
[2022-05-08] MEDS: Insulin Glargine 300 UNITS/3 ML PEN 20 UNITS SC (08:56)
[2022-05-08] MEDS: predniSONE 5 MG TAB 15 MG PO (08:57)
[2022-05-08] MEDS: Potassium Chloride 20 MEQ TABCR PO (08:57)
[2022-05-08] MEDS: Omeprazole 20 MG CAPCR PO (08:57)
[2022-05-08] MEDS: Enoxaparin 40 MG/0.4 ML SYR SC (08:58)
[2022-05-08] MEDS: Spironolactone 25 MG TAB PO (08:58)
[2022-05-08] MEDS: Sacubitril/Valsartan 24 mg/26 mg TAB 1 EACH PO (08:58)
--- NOTE | 2022-05-08 09:10 | DSE_ITS ---
Date of service: 05/08/22 Time of Service: 09:11 DS: Diagnosis Discharge Diagnosis (1) Heart failure with reduced ejection fraction: Status: Chronic (2) Chronic kidney disease: Status: Chronic (3) Chronic obstructive pulmonary disease: Status: Chronic (4) Polymyalgia rheumatica: Status: Chronic (5) Type 2 diabetes mellitus: Status: Chronic Discharge Plan Disposition Patient Disposition: HOME W/HOME HEALTH SERVICE Condition: Stable Discharge Details Reason For Visit: Acute on Chronic Heart Failure Admit Date/Time: 05/02/22 10:58 Admit Provider: Cristian Guardado Attending Provider: Cristian Guardado Primary Care Provider: Katherine Andre Hospital Course Hospital Course: This 71-year-old female with past medical history of CKD, COPD, CHF, polymyalgia rheumatica presented to the ED 05/02 with the complaint of shortness of breath. She reports she has had increasing weight and swelling and diuretic changed from torsemide to lasix.? EMS was called to the house for shortness of breath and hypoxia.? She was transported to the ED and given IV lasix with some improvement in her symptoms.? she was oxygenating in the mid 90's on her home oxygen but on ambulatory pulse oximetry, noted to desat into the 70's so was referred to hospitalist for observation stay for further monitoring and diuresis. She continued to have increased oxygen requirements and continued to received IV duiresis. She slowly improved. She was working with physical therapy. she remained stable and was initially hoping for a discharge to jail facility. She would only agree to go to [facility] and rehab and they are closed to admissions. She likely at or close to her new baseline and is thought to be safe for discharge to home with home health services. She had increase in diuretic dosing with stable kidney function and electrolytes. She is being discharged to home with home health services. discharge discussed with DR Tobar [facility] and New Rx's Prescriptions: New aspirin 81 mg Tablet,Delayed Release (Dr/Ec) 81 mg PO DAILY Qty: 0 0RF spironolactone 25 mg Tablet 25 mg PO DAILY Qty: 30 0RF Jardiance 25 mg tablet 25 mg PO DAILY Qty: 30 0RF Continued calcium carbonate [Calcium 600] 600 mg calcium (1,500 mg) tablet 600 mg PO BID acetaminophen 500 mg tablet 1,000 mg PO Q6H PRN Label Comments: Max 6 tabs daily per pt albuterol sulfate 90 mcg/actuation HFA aerosol inhaler 2 puff inhalation Q6H PRN (Reason: shortness of breath or wheezing) Qty: 18 4RF glipizide 5 mg tablet 2.5 mg PO DAILY Qty: 45 3RF Rx Instructions: Half a tablet daily amlodipine 5 mg tablet 5 mg PO DAILY Qty: 90 3RF Rx Instructions: Take 1 tablet daily atorvastatin 80 mg tablet 80 mg PO QPM Qty: 90 3RF fluticasone propionate [Flonase Allergy Relief] 50 mcg/actuation spray,suspension 2 spray intranasal DAILY PRN (Reason: allergy symptoms) Qty: 16 4RF Rx Instructions: administer into each nostril metformin 500 mg tablet 1,000 mg PO BID Qty: 360 4RF cetirizine 10 mg tablet 10 mg PO DAILY Qty: 90 4RF Rx Instructions: take one tablet daily Bevespi Aerosphere 9-4.8 mcg HFA aerosol inhaler 1 puff inhalation BID Qty: 10.7 4RF Hold Instructions: Has not started and does not wish to for now Rx Instructions: 1 puff twice a day omeprazole 20 mg capsule,delayed release(DR/EC) 20 mg PO DAILY Qty: 90 4RF Entresto 24-26 mg tablet 1 tab PO BID Qty: 90 4RF cholecalciferol (vitamin D3) [Vitamin D3] 25 mcg (1,000 unit) Capsule 25 mcg PO DAILY prednisone 5 mg tablet 5 mg PO DAILY Qty: 3 0RF Rx Instructions: taking 15 mg daily, taper per rheumatology Changed furosemide 40 mg tablet 80 mg PO 2XD Qty: 90 3RF prednisone 10 mg tablet See Rx Instructions PO DAILY Qty: 18 0RF Rx Instructions: taking 15 mg total daily, taper per rheumatology Discontinued Jardiance 10 mg tablet 10 mg PO DAILY Qty: 90 3RF No Action (DME) blood-glucose meter [CryoTherapeuticsuch Ultra2 Meter] Kit See Rx Instructions .MEDSUPPLY Qty: 1 2RF Rx Instructions: Check blood sugar twice a day (DME) blood sugar diagnostic Strip See Rx Instructions .MEDSUPPLY Qty: 200 4RF Rx Instructions: Check blood sugar twice a day (DME) lancets [OneTouch Delica Plus Lancet] 33 gauge misc See Rx Instructions .MEDSUPPLY Qty: 200 4RF Rx Instructions: Check blood sugar twice a day (DME) Aerochamber MV Spacer See Rx Instructions .ROUTE .MEDSUPPLY Qty: 2 4RF Rx Instructions: Use with inhalers Discharge Instructions Instructions: Heart Failure (DC), Chronic Kidney Disease (DC), COPD (Chronic Obstructive Pulmonary Disease) (DC), Hypertension (DC), Type 2 Diabetes in the Older Adult (DC) Additional Instructions: continue 15 mg of prednisone daily per rheumatology, taper as directed. your lasix has been increased to 80 mg twice daily and we added spironolactone. you will need your labs drawn on Thursday, further medication recommendations per your doctor. weigh yourself 3 times weekly, record and report increase to your doctor. NO smoking. wear oxygen as directed. Stand Alone Forms: Nursing Discharge Form Referrals: Katherine Andre NP [Primary Care Provider] - 05/12/22 3:20 pm Activity:: Activity as Tolerated Equipment/Supplies:: Oxygen (L/min Below) Diet:: Low Sodium Discharge Orders Discharge Orders: Discharge Order (Routine); Ordered 05/08/22 Ordered By: Kanchan Buchanan Other Ambulatory Orders: Basic Metabolic Panel (Routine) Timeframe: 20220512 Location: None Selected Ordered By: Lynnette Sandra DS: Summary Time Spent with Patient providing and/or coordinating discharge services: Greater than 30 minutes Status at Discharge Functional status at discharge: uses cane/walker Overall status at discharge: patient is progressing back to baseline Mental Status: mental status grossly normal Speech and Movement: speech and movement normal Mood: congruent mood Affect: normal affect Exam Const General: cooperative, comfortable, no acute distress and frail appearing Eyes Pupils: PERRL Chest Chest: normal inspection of the chest Resp Effort & Inspection: able to speak in complete sentences Auscultation: clear to auscultation bilaterally and diminished lung sounds Cardio Rate: regular rate Rhythm: regular rhythm GI Inspection: normal to inspection Auscultation: normal bowel sounds Skin General skin exam: no rashes or lesions noted Neuro General: patient alert and patient oriented x3 Extrem Other: distal pulses intact 1+ edema bilaterally Psych Mental Status: mental status grossly normal Speech and Movement: speech and movement normal Mood: congruent mood Affect: normal affect DS: Data Vitals/I&O Vitals and I&O: Vital Signs Temperature 37.1 C 05/08/22 07:56 Temperature Source Tympanic 05/08/22 07:56 Pulse 97 H 05/08/22 07:56 Pulse Rhythm Regular 05/07/22 23:30 Pulse 96 H 05/01/22 10:50 Respiratory Rate 20 05/08/22 07:56 Respiratory Effort 05/07/22 23:30 Respiratory Depth Normal 05/07/22 23:30 Respiratory Pattern Normal 05/07/22 23:30 Blood Pressure 122/65 05/08/22 07:56 Blood Pressure Mean 68 05/01/22 10:01 Blood Pressure Position Sitting 05/01/22 07:55 Pulse Oximetry 95 05/08/22 07:56 Oxygen Delivery Method Nasal Cannula 05/08/22 07:56 Oxygen Flow Rate 2 05/08/22 07:56 Pain Level 0 05/08/22 07:56 Comment 05/01/22 22:03 Intake & Output 05/07/22 05/07/22 05/08/22 11:59 23:59 11:59 Intake Total 360 / 370 10 / 370 240 / 240 Output Total 1800 / 4300 2500 / 4300 600 / 600 Balance -1440 / -3930 -2490 / -3930 -360 / -360 Weight 77.1 kg 77.4 kg Intake: IV 10 10 Oral 360 / 360 240 / 240 Output: Urine 1800 / 4300 2500 / 4300 600 / 600 Other: Urine Color Yellow Yellow Yellow Urine Appearance Clear Clear Clear Urine Odor Normal Stool Size Large Stool Characteristics Soft Voiding Methods Bedside Commode Bedside Commode Bedside Commode [facility] All Active Problems Discharge planning issues (Acute) DVT prophylaxis (Acute) Acute hypokalemia (Acute) Hypomagnesemia (Acute) Chronic kidney disease (Chronic) 04/2022-stage 3, Cr-1.9 Acute exacerbation of chronic obstructive pulmonary disease (Acute) Acute exacerbation of congestive heart failure (Acute) CVA (cerebral vascular accident) (Acute ~12/2021) Heart failure with reduced ejection fraction (Chronic) Chronic obstructive pulmonary disease (Chronic) 09/2021- O2 dependent on 2 l/min (O2 sat at 83% RA) Polymyalgia rheumatica (Chronic) Type 2 diabetes mellitus (Chronic) Carotid atherosclerosis (Chronic) Essential hypertension (Chronic) GERD (gastroesophageal reflux disease) (Chronic) Pulmonary nodule (Chronic) Nicotine dependence, cigarettes, uncomplicated (Chronic) Annual LDCT Osteoarthritis of hips, bilateral (Chronic) Diabetic nephropathy (Chronic) Diabetic retinopathy (Chronic) Ventral hernia (Chronic) Generalized anxiety disorder (Chronic) Benign positional vertigo (Chronic) 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 Father Diabetes Daughter No problems noted. Daughter No problems noted. Daughter No problems noted. Daughter No problems noted. 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
--- NOTE | 2022-05-08 09:45 | PDOC.CMDIS ---
- If Service Date Differs Date of service: 05/08/22 Time of Service: 09:45 LACE Index Scoring Tool - Questions: Length of Stay (in days): 4 - 6 Acuity (Admit via E.D.?): Yes Comorbidities: Cerebrovascular Disease, Diabetes w/o Complication, Congestive Heart Failure, Chronic Pulmonary Disease, Liver or Renal Disease E.D. Visits: 6 - Answers: Total Score: 16 Risk of Readmission: High Risk Care Management Discharge Reason for Hospitalization: Acute on chronic heart failure. Discharge Plan: Beth will return home with a resumption of home health services through [facility] for RN, PT and OT, as well as Meals on Wheels. She will follow up with her PCP, apartment maintenance supervisor and plan of care as instructed. Her friend will drive her home in a private vehicle. Patient/Family Education Needs: Review of discharge instructions, medications, limitations, activity, follow up plan and discuss Ask Me Three. Services Needed at Discharge: Home Health Care Services
--- NOTE | 2022-05-08 18:05 | INDS_ITS ---
Date of service: 05/08/22 PT Notes Visit Reasons: Acute on Chronic Heart Failure Physical Therapy Inpatient Discharge Summary Date: 05/08/22 Dates of Service: 05/03/2022 through 05/06/2022 This is a clinical summary of care provided for the duration of dates listed above. No charge was made in the completion of this documentation. Referring Doctor:? Lynnette Sandra NP PT Orders: PT CONSULT: Eval/Treat Precautions: Activity as tolerated. On 2 L of oxygen via NC. Patient Profile/Admitting Diagnosis:?Patient is a 71-year-old female who presented to the ED on 05/01/22 with increased shortness of breath- diagnosed with Chronic obstructive pulmonary disease, Heart failure with reduced ejection fraction, Chronic kidney disease, Acute hypokalemia, Hypomagnesemia PMHX: (Updated 05/02/22 @ 17:27 by Lynnette Sandra NP) Discharge planning issues (Acute) DVT prophylaxis (Acute) Acute hypokalemia (Acute) Hypomagnesemia (Acute) Chronic kidney disease (Chronic) 04/2022-stage 3, Cr-1.9 Acute exacerbation of chronic obstructive pulmonary disease (Acute) Acute exacerbation of congestive heart failure (Acute) CVA (cerebral vascular accident) (Acute ~12/2021) Heart failure with reduced ejection fraction (Chronic) Chronic obstructive pulmonary disease (Chronic) 09/2021- O2 dependent on 2 l/min (O2 sat at 83% RA) Polymyalgia rheumatica (Chronic) Type 2 diabetes mellitus (Chronic) Carotid atherosclerosis (Chronic) Essential hypertension (Chronic) GERD (gastroesophageal reflux disease) (Chronic) Pulmonary nodule (Chronic) Nicotine dependence, cigarettes, uncomplicated (Chronic) Annual LDCT Osteoarthritis of hips, bilateral (Chronic) Diabetic nephropathy (Chronic) Diabetic retinopathy (Chronic) Ventral hernia (Chronic) Generalized anxiety disorder (Chronic) Benign positional vertigo (Chronic) 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 She now has a pole installed close to her bed to facilitate safe transfers and short distance walking.? Home is much more handicap-accessible with assistance from [facility]. ? She has a basement but she stresses that she does not need to go down as she has everything she needs on the main floor of the apartment.? Modified independent with all mobility ADL performance using FWW.? On chronic oxygen supplementation using 2L/min. Equipment Owned/DME: FWW, 4WW Subjective: NT. See most recent NEGATIVE RETOUCHER notes. Physical Therapy Inpatient Discharge Summary Objective: General Observation: NT. See most recent NEGATIVE RETOUCHER notes. Mental Status: NT. See most recent NEGATIVE RETOUCHER notes. Pain: NT. See most recent NEGATIVE RETOUCHER notes. Vital Signs: NT. See most recent NEGATIVE RETOUCHER notes. ROM: Right Upper Extremity: ? Shoulder Flexion WFL. Shoulder abduction WFL. Elbow flexion WFL. Wrist flexion WFL. Opening and closing of hand WFL. Left Upper Extremity:? Shoulder Flexion allows only up to 90 degrees. Shoulder abduction allows only up to 80 degrees. Elbow flexion WFL. Wrist flexion WFL. Opening and closing of hand WFL. Right Lower Extremity: Hip flexion WFL. Hip abduction WFL. Knee flexion WFL. Ankle dorsiflexion to neutral only. Ankle plantarflexion WFL. Left Lower Extremity: Hip flexion unable to bend beyond 90 due to left hip pain. Hip abduction WFL. Knee flexion WFL. Ankle dorsiflexion to neutral only. Ankle plantarflexion WFL. Strength: Right Upper Extremity: Shoulder flexors 4-/5. Shoulder abductors 4-/5. Elbow flexors 4/5. Elbow extensors 4/5. Plant Biology Professor weak but functional. Left Upper Extremity: Shoulder flexors 3-/5. Shoulder abductors 3-/5. Elbow flexors 4-/5. Elbow extensors 4-/5. Plant Biology Professor weak but functional. Right Lower Extremity: Hip flexors 3+/5. Hip abductors 4-/5. Knee flexors 4/5. Knee extensors 4-/5. Ankle dorsiflexors 3-/5. Ankle plantarflexors 4-/5. Left Lower Extremity:Hip flexors 3-/5. Hip abductors 3-/5. Knee flexors 3/5. Knee extensors 3/5. Ankle dorsiflexors 3-/5. Ankle plantarflexors 4/5. Sensation: Intact as to pain and pressure on bilateral lower extremities Bed Mobility/Transfers: Rolling independent Supine to sit independent Sit to stand independent Stand to sit independent Bed to chair independent Chair to bed independent Gait: Up to 150 feet with standby assist using 4 wheeled walker. Balance: Static Sitting: Normal Dynamic Sitting: Normal Static Standing: Good Dynamic Standing: Fair Assessment: Patient demonstrates functional mobility improvement with achievement of goals as indicated below. Goals: Goals X1 week 1. Supine-Sit independent MET 2. Sit-Supine independent MET 3. Sit-Stand independent MET 4. Stand-Sit independent MET 5. Bed-Chair independent MET 6. Chair-Bed independent MET 7. Independent gait on level surface with use of least restrictive device for at least 300 feet without report of pain nor dyspnea MET 8. Independent stair negotiation while holding onto bilateral rails for at least 10 steps without report of pain nor dyspnea MET 9. Independent with home exercise program MET 10. Good static and dynamic standing balance/tolerance MET DISCHARGE RECOMMENDATIONS: SNF for continued rehabilitation to promote functional endurance, strength and mobility TREATMENT CODE/TIME: NC Thank you for the opportunity to participate in the care of this patient. Nahed Miller PT, DPT, CLT [facility] [place], [place]
== END 2022-05-08 13:30 | disposition home health service (06) | DRG 291 ==
LOC: ER 10:42 → MS 12:16
PROVIDERS: Nurse Practitioner Acute Care; Nurse Practitioner Family; Admitting Provider Family Medicine; Emergency Provider Physician Assistant; PCP Nurse Practitioner Family; Visit Provider Family Medicine
DX: I13.0 Hypertensive heart and chronic kidney disease with heart failure and stage 1 through stage 4 chronic kidney disease, or unspecified chronic kidney disease (principal); I50.23 Acute on chronic systolic (congestive) heart failure; N18.30 Chronic kidney disease, stage 3 unspecified; J43.2 Centrilobular emphysema; M35.3 Polymyalgia rheumatica; E87.6 Hypokalemia; E83.42 Hypomagnesemia; I65.29 Occlusion and stenosis of unspecified carotid artery; K21.9 Gastro-esophageal reflux disease without esophagitis; R91.1 Solitary pulmonary nodule; F17.210 Nicotine dependence, cigarettes, uncomplicated; M16.0 Bilateral primary osteoarthritis of hip; F41.1 Generalized anxiety disorder; G43.109 Migraine with aura, not intractable, without status migrainosus; H81.10 Benign paroxysmal vertigo, unspecified ear; K43.9 Ventral hernia without obstruction or gangrene; E11.319 Type 2 diabetes mellitus with unspecified diabetic retinopathy without macular edema; E11.22 Type 2 diabetes mellitus with diabetic chronic kidney disease; Z99.81 Dependence on supplemental oxygen; Z86.73 Personal history of transient ischemic attack (TIA), and cerebral infarction without residual deficits; Z79.84 Long term (current) use of oral hypoglycemic drugs
CPT/HCPCS: 36415; 80048; 80053; 87635; 93005; 93246; 94618; 94640; 96365; 96375; 97110; 97162; 97530; 99285; J1650; 71045; 83735; 83880; 84484; 85025; 93010; 99219; 99232; 99233; 99239; G0378; J1940; J3475; J7512; J7620

== ENCOUNTER 2022-05-08 04:24 | Outpatient (CLI) | payer MEDICARE, MEDICAID, SELFPAY ==
--- NOTE | 2022-06-09 12:18 | W.CARDEVENT ---
Date of service: 06/09/22 Time of Service: 12:18 Cardiac Event Recorder Referring Provider:: Marian Bauman Indications:: Stroke Cardiac Event Note: This is a 14-day event monitor ordered because of stroke Rhythm throughout was sinus with an average heart rate of 88. Minimum was 70, maximum 114 No atrial fibrillation was recorded There were occasional ventricular ectopic beats, ventricular couplets, rare nonsustained ventricular tachycardia There were occasional atrial premature beats. A total of 55 brief atrial runs were recorded, the longest of which was 5 beats in duration There was no high-grade AV block, no pauses greater than 3 seconds No patient symptoms were reported
== END 2022-05-08 04:25 | disposition home or self-care (01) ==
LOC: RT 04:25
PROVIDERS: PCP Nurse Practitioner Family; Visit Provider Psychiatry & Neurology Neurology
DX: I63.9 Cerebral infarction, unspecified (principal); I65.29 Occlusion and stenosis of unspecified carotid artery
CPT/HCPCS: 93246

== ENCOUNTER 2022-05-09 21:17 | Inpatient (IN) | payer MEDICARE, MEDICAID, SELFPAY ==
[2022-05-09] VITALS (23 sets, daily range): BP systolic 72–106; BP diastolic 53–84; PULSE 101–120; RESP 16–42; TEMP 36.8; O2SAT 91–95
--- NOTE | 2022-05-09 21:15 | DI.RAD_ITS ---
Exam(s) XR PORTABLE CHEST AP EXAM: XR PORTABLE CHEST AP CLINICAL HISTORY: Shortness of breath TECHNIQUE: 2D digital imaging was performed of the chest. One image was obtained. An AP view was ob tained. COMPARISON: CR XR PORTABLE CHEST AP from 05/01/2022 FINDINGS: MEDIASTINUM: Normal. HEART: Mildly enlarged. PULMONARY VASCULATURE: There is prominence of the pulmonary vasculature. LUNGS: Developed increased infiltrates in the lung bases. There has been an increase in the left ple ural effusion. PLEURAL SPACE: No pleural effusion or pneumothorax. BONE:Within normal limits for the patient's age. OTHER FINDINGS:Normal. IMPRESSION: Worsened appearance of the chest since 05/01/2022. Findings may represent pneumonia or congestive hea rt failure. Please correlate clinically. DATA REPOSITORY: RADIATION DOSE DELIVERED:
--- NOTE | 2022-05-09 21:15 | RT.EKG_ITS ---
APPROVED REPORT Exam: Resting ECG Reason for Exam: Shortness of breath Patient Location: E HR:102 bpm ECG Measurements Heart Rate 102 AXIS MD 154 P 75 QRSd 94 QRS 45 QT 380 T 111 QTc 496 Conclusion Sinus tachycardia...rate> 99 Ventricular premature complex...V complex w/ short R-R interval Anteroseptal infarct, age indeterminate...Q >35mS, T neg, V1-V2 sinus tachycardia, normal axis, prolonged qtc
--- NOTE | 2022-05-09 21:36 | ED.GENADUL_ITS ---
Discharge Plan Disposition Patient Disposition: [facility] INPATIENT Condition: Stable Discharge Details Clinical Impression: Heart failure with reduced ejection fraction Admit Date/Time: 05/10/22 02:03 Admit Provider: Dudley Persaud Attending Provider: Dudley Persaud Primary Care Provider: Katherine Andre ED Provider: Roly Rey Medical Decision Making <Dedrick Dugan NP - Last Filed: 05/10/22 12:03> Patient presenting to the emergency department via EMS for chief complaint of shortness of breath. Patient states that she was just discharged from the inpatient unit today and was attempting to go to a rehab facility but no beds were available so she was discharged home. She had taken her nightly medications after home health nurse have seen her but then became acutely short of breath. She does state significant anxiety about being at home and not having help. She does state that she has had significant and continued swelling to her feet and ankles and some chest tightness along with her shortness of breath. Physical exam shows 2+ pitting edema bilateral lower extremities, crackles and diminished lung sounds in bilateral lower bases, some tachypnea but no severe respiratory distress or failure noted. We will plan on checking screening labs including troponin and BNP, chest x-ray, and will give 2 duo nebs pending results. We will hold off on any further Lasix given that patient took her evening dose and will order based upon her BNP. Please see physician interpretation of EKG but appears to be in sinus rhythm with occasional PVC, subtle ST changes but no acute ischemic worrisome findings are noted Review of labs do show some elevated WBCs along with elevation of neutrophils and monocytes that has changed from previous labs, VBG shows a PCO2 of 5 but does look to be compensated respiratory acidosis with a pH of 7.35, elevated bicarb of 39 and total CO2 of 37. Labs otherwise near patient's baseline but patient did have positive [place] 70 [place] [address]. This is improved from before. We did reassess patient and she did have some improvement after duo nebs. We will continue to monitor patient with plan to admit patient after repeat troponin. <Roly Rey MD - Last Filed: 05/10/22 02:09> Patient presenting to the emergency department via EMS for chief complaint of shortness of breath. Patient states that she was just discharged from the inpatient unit today and was attempting to go to a rehab facility but no beds were available so she was discharged home. She had taken her nightly medications after home health nurse have seen her but then became acutely short of breath. She does state significant anxiety about being at home and not having help. She does state that she has had significant and continued swelling to her feet and ankles and some chest tightness along with her shortness of breath. Physical exam shows 2+ pitting edema bilateral lower extremities, crackles and diminished lung sounds in bilateral lower bases, some tachypnea but no severe respiratory distress or failure noted. We will plan on checking screening labs including troponin and BNP, chest x-ray, and will give 2 duo nebs pending results. We will hold off on any further Lasix given that patient took her evening dose and will order based upon her BNP. Please see physician interpretation of EKG but appears to be in sinus rhythm with occasional PVC, subtle ST changes but no acute ischemic worrisome findings are noted Review of labs do show some elevated WBCs along with elevation of neutrophils and monocytes that has changed from previous labs, VBG shows a PCO2 of 5 but does look to be compensated respiratory acidosis with a pH of 7.35, elevated bicarb of 39 and total CO2 of 37. Labs otherwise near patient's baseline but patient did have positive [place] 70 [place] [address]. This is improved from before. We did reassess patient and she did have some improvement after duo nebs. We will continue to monitor patient with plan to admit patient after repeat troponin. pt signed out to me pending repeat troponin. Pt stable and denies chest pain or dyspnea currently, repeat troponin minimally higher at 84 from 70. She is dnr/dni and tells me she would want minimal aggressive intervention. I suspect this is related to her chf and not type 1 NC. Given minimally elevated high sensitivity troponin and no chest pain do not feel heparanization indicated. 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 She has no cough or fever so doubt pneumonia. Discussed with Dr. Persaud who agrees for admission HPI <Dedirck Dugan NP - Last Filed: 05/10/22 12:03> General Mode of arrival: EMS . Date/Time Provider Initiated Documentation: 05/09/22 21:23 . Limitations to Documentation: no limitations . Information obtained by: patient, RN notes reviewed and old records reviewed . History of Present Illness 71 year old F presents to the emergency department with the chief complaint of Shortness of breath , described as moderate and similar to prior episodes, with intensity rated at 8. Quality is described as other (Tightness), and is localized to the chest. Patient started experiencing this hour(s) (1) and it has been constant. No relieving factors improve symptom(s), No exacerbating factors reported . Patient notes denies cough, diaphoresis and fever/chills. Patient did receive the following treatments prior to arrival, other (Patient took her nightly meds) Related Data Home Medications Medication Instructions Recorded Confirmed blood-glucose meter (OneTouch #1 ea 11/26/20 05/09/22 Ultra2 Meter kit) fluticasone propionate 50 2 spray intranasal DAILY PRN 04/15/21 05/09/22 mcg/actuation nasal allergy symptoms #16 grams spray,suspension (Flonase Allergy Relief) cholecalciferol (vitamin D3) 25 25 mcg PO DAILY 08/30/21 05/09/22 mcg (1,000 unit) capsule (Vitamin D3) blood sugar diagnostic #200 ea 11/07/21 05/09/22 lancets 33 gauge (OneTouch Delica #200 ea 11/07/21 05/09/22 Plus Lancet) metformin 500 mg tablet 1,000 mg PO BID #360 tabs 11/07/21 05/09/22 albuterol sulfate 90 mcg/actuation 2 puff inhalation Q6H PRN 12/02/21 05/09/22 aerosol inhaler shortness of breath or wheezing #18 grams cetirizine 10 mg tablet 10 mg PO DAILY #90 tab-caps 12/16/21 05/09/22 acetaminophen 500 mg tablet 1,000 mg PO Q6H PRN 12/23/21 05/09/22 calcium carbonate 600 mg calcium 600 mg PO BID 12/23/21 05/09/22 (1,500 mg) tablet (Calcium) glycopyrrolate 9 mcg-formoterol 1 puff inhalation BID #10.7 grams 12/25/21 05/09/22 4.8 mcg HFA aerosol inhaler (Bevespi Aerosphere) inhalational spacing device #2 ea 12/25/21 05/09/22 (Aerochamber MV spacer) omeprazole 20 mg capsule,delayed 20 mg PO DAILY #90 tab-caps 12/25/21 05/09/22 release amlodipine 5 mg tablet 5 mg PO DAILY #90 tab-caps 02/03/22 05/09/22 atorvastatin 80 mg tablet 80 mg PO QPM #90 tabs 02/03/22 05/09/22 glipizide 5 mg tablet 2.5 mg PO DAILY #45 tabs 02/03/22 05/09/22 sacubitril 24 mg-valsartan 26 mg 1 tab PO BID #90 tabs 03/17/22 05/09/22 tablet (Entresto) aspirin 81 mg tablet,delayed 81 mg PO DAILY #0 tabs 05/08/22 05/09/22 release empagliflozin 25 mg tablet 25 mg PO DAILY #30 tabs 05/08/22 05/09/22 (Jardiance) furosemide 40 mg tablet 80 mg PO 2XD #90 tabs 05/08/22 05/09/22 spironolactone 25 mg tablet 25 mg PO DAILY #30 tabs 05/08/22 05/09/22 gabapentin 300 mg capsule 300 mg PO QHS #30 caps 05/09/22 05/09/22 prednisone 5 mg tablet 15 mg PO DAILY 05/10/22 05/10/22 Previous Rx's Medication Instructions Recorded blood-glucose meter (Instapage #1 ea 11/26/20 Ultra2 Meter kit) fluticasone propionate 50 2 spray intranasal DAILY PRN 04/15/21 mcg/actuation nasal allergy symptoms #16 grams spray,suspension (Flonase Allergy Relief) blood sugar diagnostic #200 ea 11/07/21 lancets 33 gauge (OneTouch Delica #200 ea 11/07/21 Plus Lancet) metformin 500 mg tablet 1,000 mg PO BID #360 tabs 11/07/21 albuterol sulfate 90 mcg/actuation 2 puff inhalation Q6H PRN 12/02/21 aerosol inhaler shortness of breath or wheezing #18 grams cetirizine 10 mg tablet 10 mg PO DAILY #90 tab-caps 12/16/21 glycopyrrolate 9 mcg-formoterol 1 puff inhalation BID #10.7 grams 12/25/21 4.8 mcg HFA aerosol inhaler (Bevespi Aerosphere) inhalational spacing device #2 ea 12/25/21 (Aerochamber MV spacer) omeprazole 20 mg capsule,delayed 20 mg PO DAILY #90 tab-caps 12/25/21 release amlodipine 5 mg tablet 5 mg PO DAILY #90 tab-caps 02/03/22 atorvastatin 80 mg tablet 80 mg PO QPM #90 tabs 02/03/22 glipizide 5 mg tablet 2.5 mg PO DAILY #45 tabs 02/03/22 sacubitril 24 mg-valsartan 26 mg 1 tab PO BID #90 tabs 03/17/22 tablet (Entresto) aspirin 81 mg tablet,delayed 81 mg PO DAILY #0 tabs 05/08/22 release empagliflozin 25 mg tablet 25 mg PO DAILY #30 tabs 05/08/22 (Jardiance) furosemide 40 mg tablet 80 mg PO 2XD #90 tabs 05/08/22 spironolactone 25 mg tablet 25 mg PO DAILY #30 tabs 05/08/22 gabapentin 300 mg capsule 300 mg PO QHS #30 caps 05/09/22 Allergies Allergy/AdvReac Type Severity Reaction Status Date / Time codeine AdvReac Severe Cardiac Verified 05/09/22 21:31 Dysrythmia indomethacin AdvReac Intermediate Cardiac Verified 05/09/22 21:31 Dysrythmia lisinopril AdvReac cough Verified 05/09/22 21:31 General Stated Complaint: SOB BELKIS: 2 Review of Systems <Dedrick Dugan NP - Last Filed: 05/10/22 12:03> Constitutional Constitutional: Denies chills, Denies fever(s) and Reports malaise ENT Ears, Nose, Mouth, and Throat: Denies sore throat Cardiovascular Cardiovascular: Reports chest pain, Denies syncope, Reports pedal edema, Reports edema, Reports leg edema, Reports dyspnea and Reports dyspnea on exertion Respiratory Respiratory: Reports as per HPI, Denies chest congestion, Denies cough, Reports dyspnea and Reports dyspnea on exertion Gastrointestinal Gastrointestinal: Denies abdominal pain and Denies vomiting Genitourinary Genitourinary: Denies dysuria Integumentary/Breasts Skin/Breast: Denies rash Neurologic Neurologic: Denies syncope Psychiatric Psychiatric: Reports anxiety PFSH <Dedrick Dugan NP - Last Filed: 05/10/22 12:03> All Active Problems (Updated 05/10/22 @ 03:11 by Dudley Persaud) Discharge planning issues (Acute) DVT prophylaxis (Acute) Elevated troponin (Acute) Chronic kidney disease (Chronic) 04/2022-stage 3, Cr-1.9 Acute exacerbation of chronic obstructive pulmonary disease (Acute) Acute exacerbation of congestive heart failure (Acute) CVA (cerebral vascular accident) (Acute ~12/2021) Heart failure with reduced ejection fraction (Chronic) Chronic obstructive pulmonary disease (Chronic) 09/2021- O2 dependent on 2 l/min (O2 sat at 83% RA) Polymyalgia rheumatica (Chronic) Type 2 diabetes mellitus (Chronic) Carotid atherosclerosis (Chronic) Essential hypertension (Chronic) GERD (gastroesophageal reflux disease) (Chronic) Pulmonary nodule (Chronic) Nicotine dependence, cigarettes, uncomplicated (Chronic) Annual LDCT Osteoarthritis of hips, bilateral (Chronic) Diabetic nephropathy (Chronic) Diabetic retinopathy (Chronic) Ventral hernia (Chronic) Generalized anxiety disorder (Chronic) Benign positional vertigo (Chronic) 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 Father Diabetes Daughter No problems noted. Daughter No problems noted. Daughter No problems noted. Daughter No problems noted. 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 4 daughters Exam <Dedrick Dugan NP - Last Filed: 05/10/22 12:03> Const General: cooperative, no acute distress and not diaphoretic Orientation: alert, awake and oriented x3 Limitations: mental status not altered Neck Neck: normal visual inspection, full ROM, trachea midline, supple and no anterior neck swelling Resp Effort & Inspection: able to speak in complete sentences, labored and tachypneic Auscultation: crackles bilaterally at the base and diminished lung sounds bilaterally in the lower lung ramirez Cardio Jugular venous pressure: no JVD Palpation: normal PMI Rate: tachycardic Rhythm: regular rhythm Heart Sounds: S1 normal, S2 normal, no click, no gallops, no murmurs and no rubs Bruits: no abdominal aortic bruits and no carotid bruits Pulses: radial pulses present bilaterally 2+ GI Inspection: normal to inspection Palpation: soft, no aortic enlargement, no pulsatile masses and nontender Auscultation: normal bowel sounds Skin General skin exam: no rashes or lesions noted Neuro General: patient alert, patient awake, patient oriented x3, tone normal and moves all extremities Extrem General: pedal edema bilaterally pitting and 2+ Course <Dedrikc Dugan NP - Last Filed: 05/10/22 12:03> Vital Signs Vital signs: Vital Signs Temperature 36.8 C 05/09/22 21:29 Pulse 112 H 05/09/22 21:29 Respiratory Rate 16 05/09/22 21:29 Blood Pressure 99/61 L 05/09/22 21:29 Pulse Oximetry 93 05/09/22 21:29 Temperature 36.8 C 05/09/22 21:29 Temperature Source Skin 05/09/22 21:29 Pulse 112 H 05/09/22 21:29 Respiratory Rate 16 05/09/22 21:29 Respiratory Effort Non-Labored 05/09/22 21:32 Blood Pressure 99/61 L 05/09/22 21:29 Pulse Oximetry 93 05/09/22 21:29 Oxygen Delivery Method Nasal Cannula 05/09/22 21:29 Oxygen Flow Rate 4 05/09/22 21:29 Pain Level 8 05/09/22 21:29 Sign Out <Dedrick Dugan NP - Last Filed: 05/10/22 12:03> Sign Out Data: Sign Out Comment: Patient pending repeat troponin due to elevated troponin prior to plan of admission to inpatient unit for COPD and CHF Last updated by Dedrick Dugan NP at 05/09/22 23:59
[2022-05-09 22:15] LABS: BE (Venous) 14 mmol/L (-2-3); HCO3 (Venous) 39 mmol/L (23-28); O2 Sat (Venous) 66 %; TCO2 (Venous) 37 mmol/L (24-29); pH (Venous) 7.38 (7.31-7.41); pO2 (Venous) 36 mmHg
[2022-05-09 22:16] LABS: Abs Immature Grans 0.03 10^3/uL (0.0-0.06); Absolute Eosinophil Count 0.11 10^3/uL (0.0-0.7); Absolute Lymphocyte Count 0.81 10^3/uL (1.2-3.4); Absolute Monocyte Count 1.06 10^3/uL (0.1-0.8); Basophils % 0.2; Eosinophils % 0.9; HCT 31.9 % (36.0-46.0); HGB 9.5 g/dL (11.2-15.7); Immature Grans % 0.2; Lymphocytes % 6.7; MCH 26.4 pg (27.0-33.0); MCHC 29.8 % (32.0-36.0); MCV 89 fL (80-95); MPV 10.1 fL (8.0-11.0); Monocytes % 8.8; Neutrophils % 83.2; Platelet Count 296 10^3/uL (130-400); RDW-SD 45.6 fL; WBC 12.02 10^3/uL (4.4-10.8)
[2022-05-09 22:21] LABS: pCO2 (Venous) 65 mmHg (41-51)
[2022-05-09 22:22] LABS: Absolute Basophil Count 0.02 10^3/uL (0.0-0.2)
[2022-05-09] MEDS: Albuterol/Ipratropium 3 ML UPD VIAL 6 ML UPD (22:30)
[2022-05-09 22:43] LABS: ALT 59 U/L (14-59); AST 44 U/L (15-37); Albumin 3.4 g/dL (3.4-5.0); Alkaline Phosphatase 70 U/L (46-116); Anion Gap 6.2 mmol/L (3-11); BUN 54 mg/dL (7-18); Bilirubin, Total 0.8 mg/dL (0.2-1.0); CO2 37.8 mmol/L (21.0-32.0); CREATININE 1.8 mg/dL (0.55-1.02); Calcium 9.9 mg/dL (8.5-10.1); Chloride 97 mmol/L (98-107); Estimated GFR 27.66 (mL/min/1.73m2); Glucose 289 mg/dL (74-106); Magnesium 2.4 mg/dL (1.8-2.4); Potassium 4.2 mmol/L (3.5-5.1); Sodium 141 mmol/L (136-145); Total Protein 7.4 g/dL (6.4-8.2)
[2022-05-09 22:44] LABS: Troponin I 70 ng/L (<or=60)
[2022-05-09 23:04] LABS: NT-proBNP 11330 pg/mL (<300)
--- NOTE | 2022-05-09 23:05 | DI.VRAD_ITS ---
PROCEDURE INFORMATION: Exam: XR Chest Exam date and time: 05/09/2022 10:06 PM Age: 71 years old Clinical indication: Other: Shortness of breathe TECHNIQUE: Imaging protocol: Radiologic exam of the chest. Views: 1 view. COMPARISON: CR XR PORTABLE CHEST AP 05/01/2022 8:30 AM FINDINGS: Tubes, catheters and devices: Monitoring wires and monitoring device noted. Lungs: Mixed airspace and interstitial opacities noted in both lungs, increased from previous, greatest in the lung bases. Lungs are hyperaerated. Pleural spaces: Blunting noted in the costophrenic angles, left greater than right. No pneumothorax. Heart/Mediastinum: Mild cardiomegaly. Bones/joints: Unremarkable. IMPRESSION: 1. Increased edema and/or pneumonia. 2. Mild bilateral pleural effusions. 3. Underlying chronic lung disease. Dictated and Authenticated by: Roly Mchugh MD. Ordering:TRUDI Tse MD
[2022-05-10] VITALS (55 sets, daily range): BP systolic 80–136; BP diastolic 49–80; PULSE 79–114; RESP 18–37; TEMP 36.1–36.6; O2SAT 89–99
--- NOTE | 2022-05-10 01:30 | RT.EKG_ITS ---
APPROVED REPORT Exam: Resting ECG Reason for Exam: elevated troponin Patient Location: E HR:105 bpm ECG Measurements Heart Rate 105 AXIS NV 147 P 73 QRSd 95 QRS 48 QT 361 T 82 QTc 477 Conclusion Sinus tachycardia...rate> 99 Ventricular premature complex...V complex w/ short R-R interval Anteroseptal infarct, age indeterminate...Q >35mS, T neg, V1-V2
[2022-05-10 01:40] LABS: Troponin I 84 ng/L (<or=60)
[2022-05-10 01:50] LABS: Source Nasal/Nares
[2022-05-10 02:40] LABS: COVID-19 PCR Negative (Negative)
--- NOTE | 2022-05-10 02:47 | HPE_ITS ---
Date of service: 05/10/22 Time of Service: 02:47 Assessment and Plan Assessment and plan (1) Acute exacerbation of congestive heart failure: Status: Acute Assessment and plan: Ms. Pratt' presentation is consistent with acute worsening of CHF. Will give additional furosemide and monitor fluid status closely. See below re: other med adjustments. (2) Elevated troponin: Status: Acute Assessment and plan: Mild elevation of troponin up from 55 at last admission. She is currently chest pain free. Dr. Rey does not think this represents ACS. I agree. Likely strain from CHF in setting of CKD. I do think this reflects the risk level associated with her heart disease. I am not anticoagulating, but adjusting medications as below. Continue ASA, atorvastatin. She would benefit from MPI and cardiology consult when available. (3) Heart failure with reduced ejection fraction: Status: Chronic Assessment and plan: See CHF above. Adding metoprolol, continue ARNI, spironolactone, SGLT-2. (4) Essential hypertension: Status: Chronic Assessment and plan: BP okay, but will stop amlodipine and work on increasing goal directed therapy for HFrEF. With troponin up and tachycardia start with metoprolol. She has COPD but patients with COPD have improved overall outcomes with beta blockers, not a contraindicaiton. (5) Type 2 diabetes mellitus: Status: Chronic Assessment and plan: with GFR now below 30 I am holding metfomrin. Will add glargine insulin. She would benefit from GLP-1 given high A1c and CAD. COnsider as outpatient. (6) Chronic kidney disease: Status: Chronic Assessment and plan: she is at her recent baseline. monitor with diuresis. (7) Polymyalgia rheumatica: Status: Chronic Assessment and plan: continue prednisone as part of slow taper. (8) Chronic obstructive pulmonary disease: Status: Chronic Assessment and plan: not currently active, continue chronic inhalers. Qualifiers: COPD type: emphysema Emphysema type: centrilobular Qualified Code(s): J43.2 - Centrilobular emphysema (9) Nicotine dependence, cigarettes, uncomplicated: Status: Chronic Assessment and plan: NRT while inpatient prn. (10) DVT prophylaxis: Status: Acute Assessment and plan: LMWH (11) Discharge planning issues: Status: Acute Assessment and plan: Ms. Pratt was considering SNF at last discharge. She is medically complicated. Currently she will be monitored in ICU given elevated troponins. History of Present Illness History of Present Illness Chief Complaint: short of breath Narrative: 71 yo F with HRrEF secondary to ischemic cardiomyopathy, DM with A1c 8.9%, COPD, h/o CVA, smoker, with polymalgia rheumatica on prednisone who was admitted at [facility] 05/02 to 05/08/2022 for CHF exacerbation. She went home and felt well initially. SHe had lunch with included prepared chicken and mashed potatoes from [employer]. Around 3 pm she started to feel short of breath and chest pressure. No pain, but pressure in mid lower chest without radiation. She felt like she couldn't breath, which was similar to when she has had CHF in the past. THe pressure was new. She started feeling better once she arrived in the ED, though she isn't sure that the medicaiton helped her. She has not felt nausea, diaphoresis, dizziness, fevers. She denies cough, wheeze, or sputum production. SHe feels exhausted. She was admitted for shortness of breath in the previous admission and was diuresed. Her empagliflozin was titrated up from 10mg to 25mg. Her furosemide was increased from 40mg to 80mg BID and spironolactone was added (she was not on this at the time but has been in the past). Review of Systems Constitutional Constitutional: Denies chills, Denies fever(s), Denies headache(s) and Reports malaise Eyes Eyes: Denies change in vision and Denies other visual disturbances ENT Ears, Nose, Mouth, and Throat: Denies headache(s), Denies mouth lesions, Denies nasal discharge and Denies sore throat Cardiovascular Cardiovascular: Reports as per HPI, Denies syncope, Reports edema, Reports leg edema, Reports dyspnea and Reports dyspnea on exertion Respiratory Respiratory: Reports as per HPI, Denies chest congestion, Denies cough, Reports dyspnea and Reports dyspnea on exertion Gastrointestinal Gastrointestinal: Denies abdominal pain, Denies diarrhea and Denies vomiting Genitourinary Genitourinary: Denies hematuria and Denies dysuria Musculoskeletal Musculoskeletal: Reports myalgias (not worse) Integumentary/Breasts Skin/Breast: Denies rash Neurologic Neurologic: Denies confusion, Denies syncope, Denies headache(s) and Reports localized weakness (just from old stroke, nothing new) Psychiatric Psychiatric: Reports anxiety and Denies confusion Hematologic/Lymphatic Hematologic/Lymphatic: Denies easy bleeding PFSH All Active Problems (Updated 05/10/22 @ 03:11 by Dudley Persaud) Discharge planning issues (Acute) DVT prophylaxis (Acute) Elevated troponin (Acute) Chronic kidney disease (Chronic) 04/2022-stage 3, Cr-1.9 Acute exacerbation of chronic obstructive pulmonary disease (Acute) Acute exacerbation of congestive heart failure (Acute) CVA (cerebral vascular accident) (Acute ~12/2021) Heart failure with reduced ejection fraction (Chronic) Chronic obstructive pulmonary disease (Chronic) 09/2021- O2 dependent on 2 l/min (O2 sat at 83% RA) Polymyalgia rheumatica (Chronic) Type 2 diabetes mellitus (Chronic) Carotid atherosclerosis (Chronic) Essential hypertension (Chronic) GERD (gastroesophageal reflux disease) (Chronic) Pulmonary nodule (Chronic) Nicotine dependence, cigarettes, uncomplicated (Chronic) Annual LDCT Osteoarthritis of hips, bilateral (Chronic) Diabetic nephropathy (Chronic) Diabetic retinopathy (Chronic) Ventral hernia (Chronic) Generalized anxiety disorder (Chronic) Benign positional vertigo (Chronic) 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 Father Diabetes Daughter No problems noted. Daughter No problems noted. Daughter No problems noted. Daughter No problems noted. 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 4 daughters Meds Allergies and Home Medications Allergies Allergy/AdvReac Type Severity Reaction Status Date / Time codeine AdvReac Severe Cardiac Verified 05/09/22 21:31 Dysrythmia indomethacin AdvReac Intermediate Cardiac Verified 05/09/22 21:31 Dysrythmia lisinopril AdvReac cough Verified 05/09/22 21:31 Home Medications Medication Instructions Recorded Confirmed Type blood-glucose meter (Exosome Diagnosticsuch #1 ea 11/26/20 05/09/22 Rx Ultra2 Meter kit) fluticasone propionate 50 2 spray intranasal DAILY PRN 04/15/21 05/09/22 Rx mcg/actuation nasal allergy symptoms #16 grams spray,suspension (Flonase Allergy Relief) cholecalciferol (vitamin D3) 25 25 mcg PO DAILY 08/30/21 05/09/22 History mcg (1,000 unit) capsule (Vitamin D3) blood sugar diagnostic #200 ea 11/07/21 05/09/22 Rx lancets 33 gauge (OneTouch Delica #200 ea 11/07/21 05/09/22 Rx Plus Lancet) metformin 500 mg tablet 1,000 mg PO BID #360 tabs 11/07/21 05/09/22 Rx albuterol sulfate 90 mcg/actuation 2 puff inhalation Q6H PRN 12/02/21 05/09/22 Rx aerosol inhaler shortness of breath or wheezing #18 grams cetirizine 10 mg tablet 10 mg PO DAILY #90 tab-caps 12/16/21 05/09/22 Rx acetaminophen 500 mg tablet 1,000 mg PO Q6H PRN 12/23/21 05/09/22 History calcium carbonate 600 mg calcium 600 mg PO BID 12/23/21 05/09/22 History (1,500 mg) tablet (Calcium) glycopyrrolate 9 mcg-formoterol 1 puff inhalation BID #10.7 grams 12/25/21 05/09/22 Rx 4.8 mcg HFA aerosol inhaler (Bevespi Aerosphere) inhalational spacing device #2 ea 12/25/21 05/09/22 Rx (Aerochamber MV spacer) omeprazole 20 mg capsule,delayed 20 mg PO DAILY #90 tab-caps 12/25/21 05/09/22 Rx release amlodipine 5 mg tablet 5 mg PO DAILY #90 tab-caps 02/03/22 05/09/22 Rx atorvastatin 80 mg tablet 80 mg PO QPM #90 tabs 02/03/22 05/09/22 Rx glipizide 5 mg tablet 2.5 mg PO DAILY #45 tabs 02/03/22 05/09/22 Rx sacubitril 24 mg-valsartan 26 mg 1 tab PO BID #90 tabs 03/17/22 05/09/22 Rx tablet (Entresto) aspirin 81 mg tablet,delayed 81 mg PO DAILY #0 tabs 05/08/22 05/09/22 Rx release empagliflozin 25 mg tablet 25 mg PO DAILY #30 tabs 05/08/22 05/09/22 Rx (Jardiance) furosemide 40 mg tablet 80 mg PO 2XD #90 tabs 05/08/22 05/09/22 Rx prednisone 10 mg tablet See Rx Instructions PO DAILY #18 05/08/22 05/09/22 Rx tabs prednisone 5 mg tablet 5 mg PO DAILY #3 tabs 05/08/22 05/09/22 Rx spironolactone 25 mg tablet 25 mg PO DAILY #30 tabs 05/08/22 05/09/22 Rx gabapentin 300 mg capsule 300 mg PO QHS #30 caps 05/09/22 05/09/22 Rx Exam Narrative Exam Narrative: GEN: Alert and oriented, cooperative, gives linear history. No acute distress at rest. HEENT: Head atraumatic. Conjunctiva clear, no icterus. PEERL, EOMI. no rhinorrhea. MMM, OP benign. Neck is supple with no masses or lymphadenopathy, trachea midline, I could not appreciate elevated JVP LUNGS: diffusely deminished with some expiratory grunting and occasional slight wheeze. no rales. CV: tachycardic, some skipped beats but mostly regular. with no murmurs, gallops, or rubs. ABD: +BS, soft, NT/ND EXT: no cyanosis, clubbing. 1-2+ puffy geoffrey edema to ankles. legs not tender MSK: No joint redness or swelling NEURO: CN 2-12 grossly intact. Normal speech and coordination. no tremor. moving all 4 extremities. SKIN: No rashs or open wounds. PSYCH: normal mood and affect, normal thought process Results Imaging Chest x-ray: report reviewed and image reviewed (increased pulmonary edema vs infiltrates) EKG: report reviewed and image reviewed (sinus tachycard ic. QTC normalized on repeat. No ischemic ST segment changes, some t-wave abnormalities) Labs Result diagrams: 05/09/22 22:10 05/09/22 22:10 Labs: Laboratory Results - last 24 hr 05/09/22 05/09/22 05/09/22 22:10 22:10 22:10 WBC 12.02 H RBC 3.60 L Hgb 9.5 L Hct 31.9 L MCV 89 MCH 26.4 L MCHC 29.8 L RDW 14.0 Plt Count 296 MPV 10.1 Immature Gran % 0.2 Neutrophils % 83.2 Lymphocytes % 6.7 Monocytes % 8.8 Eosinophils % 0.9 Basophils % 0.2 Nucleated RBC % 0.0 Absolute Neutrophils 10.00 H Absolute Lymphocytes 0.81 L Absolute Monocytes 1.06 H Absolute Eosinophils 0.11 Absolute Basophils 0.02 VBG pH 7.38 VBG pCO2 65 H* VBG pO2 36 VBG HCO3 39 H VBG Total CO2 37 H VBG O2 Saturation 66 VBG Base Excess 14 H Sodium 141 Potassium 4.2 Chloride 97 L Carbon Dioxide 37.8 H Anion Gap 6.2 BUN 54 H Creatinine 1.8 H Estimated GFR/1.73 m2 27.66 Glucose 289 H Calcium 9.9 Magnesium 2.4 Total Bilirubin 0.8 AST 44 H ALT 59 Alkaline Phosphatase 70 Troponin I 70 H* NT-Pro-B Natriuret Pep 77342 H Total Protein 7.4 Albumin 3.4 COVID-19 Source 05/10/22 05/10/22 01:18 01:45 WBC RBC Hgb Hct MCV MCH MCHC RDW Plt Count MPV Immature Gran % Neutrophils % Lymphocytes % Monocytes % Eosinophils % Basophils % Nucleated RBC % Absolute Neutrophils Absolute Lymphocytes Absolute Monocytes Absolute Eosinophils Absolute Basophils VBG pH VBG pCO2 VBG pO2 VBG HCO3 VBG Total CO2 VBG O2 Saturation VBG Base Excess Sodium Potassium Chloride Carbon Dioxide Anion Gap BUN Creatinine Estimated GFR/1.73 m2 Glucose Calcium Magnesium Total Bilirubin AST ALT Alkaline Phosphatase Troponin I 84 H* NT-Pro-B Natriuret Pep Total Protein Albumin COVID-19 Source Nasal/Nares Last Vital Signs Temp 36.8 C 05/09/22 21:29 Pulse 100 H 05/10/22 01:09 Resp 24 05/10/22 02:00 BP 136/64 05/10/22 01:09 Pulse Ox 97 05/10/22 02:00
[2022-05-10] MEDS: Furosemide 40 MG/4 ML VIAL IVP ×3 (05:04→16:52)
[2022-05-10 07:10] LABS: Anion Gap 3.5 mmol/L (3-11); BUN 50 mg/dL (7-18); CO2 40.5 mmol/L (21.0-32.0); CREATININE 1.5 mg/dL (0.55-1.02); Calcium 10.1 mg/dL (8.5-10.1); Chloride 100 mmol/L (98-107); Estimated GFR 34.13 (mL/min/1.73m2); Glucose 205 mg/dL (74-106); Potassium 4.2 mmol/L (3.5-5.1); Sodium 144 mmol/L (136-145)
[2022-05-10 07:12] LABS: Troponin I 100 ng/L (<or=60)
--- NOTE | 2022-05-10 08:30 | RT.EKG_ITS ---
APPROVED REPORT Exam: Resting ECG Reason for Exam: chest pain Patient Location: I HR:86 bpm ECG Measurements Heart Rate 86 AXIS WA 148 P 42 QRSd 121 QRS 5 QT 396 T 96 QTc 474 Conclusion Sinus rhythm...normal P axis, V-rate 50- 99 Ventricular premature complex...V complex w/ short R-R interval Probable left atrial enlargement...P >50mS, <-0.10mV V1 Nonspecific intraventricular conduction delay...QRSd >115mS, not LBBB/RBBB Nonspecific T abnormalities, lateral leads...T <-0.10mV, I aVL V5 V6
[2022-05-10] MEDS: Enoxaparin 30 MG/0.3 ML SYR SC (08:32)
[2022-05-10] MEDS: predniSONE 10 MG TAB 15 MG PO (08:33)
[2022-05-10] MEDS: Sacubitril/Valsartan 24 mg/26 mg TAB 1 EACH PO ×2 (08:33→20:13)
[2022-05-10] MEDS: Insulin Aspart 300 UNITS/3 ML PEN SC ×3 (08:33→18:01)
[2022-05-10] MEDS: Cetirizine 10 MG TAB PO (08:33)
[2022-05-10] MEDS: Cholecalciferol (Vitamin D3) 1,000 UNIT TAB 1000 UNITS PO (08:34)
[2022-05-10] MEDS: Spironolactone 25 MG TAB PO (08:34)
[2022-05-10] MEDS: Empaglifozin 25 MG TAB PO (08:34)
[2022-05-10] MEDS: Aspirin E.C. 81 MG TABEC PO (08:34)
[2022-05-10] MEDS: Omeprazole 20 MG CAPCR PO (08:35)
[2022-05-10] MEDS: Calcium Carbonate 1.5 GM TAB PO ×2 (08:35→20:13)
[2022-05-10] MEDS: glipiZIDE 5 MG TAB 2.5 MG PO (08:35)
[2022-05-10] MEDS: Metoprolol CR 25 MG TABCR PO (08:36)
[2022-05-10 11:45] LABS: Troponin I 126 ng/L (<or=60)
--- NOTE | 2022-05-10 12:07 | PDOC.CMIN ---
- If Service Date Differs Date of service: 05/10/22 Time of Service: 12:07 Care Management Initial Assess REASON FOR HOSPITALIZATION:: CHF PAST MEDICAL HISTORY/PAST SURGICAL HISTORY:: All Active Problems. Discharge planning issues (Acute). DVT prophylaxis (Acute). Elevated troponin (Acute). Chronic kidney disease (Chronic). 04/2022-stage 3, Cr-1.9. Acute exacerbation of chronic obstructive pulmonary disease (Acute). Acute exacerbation of congestive heart failure (Acute). CVA (cerebral vascular accident) (Acute ~12/2021). Heart failure with reduced ejection fraction (Chronic). Chronic obstructive pulmonary disease (Chronic). 09/2021- O2 dependent on 2 l/min (O2 sat at 83% RA). Polymyalgia rheumatica (Chronic). Type 2 diabetes mellitus (Chronic). Carotid atherosclerosis (Chronic). Essential hypertension (Chronic). GERD (gastroesophageal reflux disease) (Chronic). Pulmonary nodule (Chronic). Nicotine dependence, cigarettes, uncomplicated (Chronic). Annual LDCT. Osteoarthritis of hips, bilateral (Chronic). Diabetic nephropathy (Chronic). Diabetic retinopathy (Chronic). Ventral hernia (Chronic). Generalized anxiety disorder (Chronic). Benign positional vertigo (Chronic). 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 Medical History. Iron deficiency anemia. Surgical History. History of esophagogastroduodenoscopy (EGD) (07/30/18). S/P cholecystectomy. S/P colonoscopy (07/30/18). S/P tonsillectomy PREVIOUS FUNCTIONAL STATUS/SOCIAL/FAMILY SUPPORTS:: Beth lives alone in an apartment in [facility]. She has 4 daughters but only one daughter lives locally. Her other daughters reside in [place] and [place]. Beth shares she had a stroke in December of this year and has struggled to maintain at home since then as she fills up with fluid and has to return to the hospital for treatment. CURRENT FUNCTIONAL STATUS:: Beth was sitting up in bed when ABUNDIO met with her. She stated that she is not doing well, which is why she returned to the hospital. She stated that she has reconsidered us sending a referral to the [facility], as long as she isn't placed in the basement. CM will inquire about this on Thursday, when admissions is available. She stated that [facility] is still her first choice for rehab. Per report, she will be given additional furosemide and her fluid status will be monitored closely. CM will continue to follow. ADVANCE DIRECTIVES:: On file; daughter Lida Petit is appointed as Health Care Agent. COLST form also on file. Has patient been provided with info about the portal/API?: Yes Did the patient sign up for the portal?: Yes (active) CODE STATUS:: DNR/DNI INSURANCE COVERAGE / FINANCIAL ISSUES:: Medicare and Medicaid. CURRENT HOME/COMMUNITY SERVICES/EQUIPMENT:: Home Health RN, PT, OT. Beth is also connected with [employer] and gets Meals on Wheels; her counseling case manager is Argelia Witt. Beth is on 2L of O2 at baseline and has a Life Alert, in addition to a walker with a tray, shower chair, raised toilet seat, and a tower to assist with getting in and out of bed. PRIMARY CARE PHYSICIAN:: Katherine Andre NP ([facility]). POTENTIAL DISCHARGE NEEDS:: Follow up appointments with PCP, cardiology, and potential rehab. PATIENT/FAMILY EDUCATION NEEDS:: Review of discharge instructions and discuss Ask Me Three. ANTICIPATED BARRIERS TO DISCHARGE:: Beth's declining health and difficulty maintaining at home with community services. TRANSPORTATION:: Via private vehicle with family. PLAN:: Beth will return home with a resumption of services vs [facility], if they are open to admissions and will accept her. She was [facility] on her previous admission, but the facility was unable to take her due to staffing at the time. She will likely transport via private vehicle by a friend. She will follow up with her PCP and discharge plan of care. CM will continue to follow. Readmission - Within the Past 30 Days Yes or No: Y - Date of First Admission Date of 1st Admission: 05/02/22 - Date of this Admission Date of Admission: 05/09/22 This admission was: Through ED - Office Visit Since 1st Admission Have you seen your PCP in the office since discharge?: No Had an appointment Been Scheduled?: Yes Date of Scheduled Appointment: 05/12/22 Describe barriers for scheduling or getting an appointment: difficult to get to appointments, telehealth scheduled.
--- NOTE | 2022-05-10 16:38 | W.PM.PROGNOT ---
Date of Service Date of service: 05/10/22 Time of Service: 16:38 Assessment and Plan Assessment and plan (1) Acute exacerbation of congestive heart failure: Status: Acute Assessment and plan: Ms. Pratt' presentation is consistent with acute worsening of CHF. Will give additional furosemide and monitor fluid status closely. See below re: other med adjustments. Dietary indescretions noted. (2) Elevated troponin: Status: Acute Assessment and plan: Mild elevation of troponin up from 55 at last admission. Cont to slowly rise: 70>84>100>126. Cont to monitor. She is currently chest pain free. Does not appear to be ACS. Likely strain from CHF in setting of CKD. I am not anticoagulating, but adjusting medications as below. Continue ASA, atorvastatin. She would benefit from MPI and cardiology consult when available. (3) Heart failure with reduced ejection fraction: Status: Chronic Assessment and plan: See CHF above. Adding metoprolol, continue ARNI, spironolactone, SGLT-2. (4) Essential hypertension: Status: Chronic Assessment and plan: BP is good. amlodipine stopped an BB initiated in accordance to goal directed therapy for HFrEF. She has COPD but patients with COPD have improved overall outcomes with beta blockers, not a contraindicaiton. (5) Type 2 diabetes mellitus: Status: Chronic Assessment and plan: with GFR now below 30 I am holding metfomrin. Will add glargine insulin. She would benefit from GLP-1 given high A1c and CAD. COnsider as outpatient. (6) Chronic kidney disease: Status: Chronic Assessment and plan: At her recent baseline. monitor with diuresis. (7) Polymyalgia rheumatica: Status: Chronic Assessment and plan: Continue prednisone as part of slow taper. (8) Chronic obstructive pulmonary disease: Status: Chronic Assessment and plan: No acute exacerbations. Cont. inhaler tx. Qualifiers: COPD type: emphysema Emphysema type: centrilobular Qualified Code(s): J43.2 - Centrilobular emphysema (9) Nicotine dependence, cigarettes, uncomplicated: Status: Chronic Assessment and plan: NRT while inpatient prn. (10) DVT prophylaxis: Status: Acute Assessment and plan: LMWH (11) Discharge planning issues: Status: Acute Assessment and plan: Ms. Pratt was considering SNF at last discharge. She is medically complicated. OK to transfer out of ICU Subjective Subjective Patient reports: no new complaints, tolerating a regular diet and shortness of breath; denies nausea or vomiting Exam Narrative Exam Narrative: GEN: Sitting in chair. Alert and oriented, cooperative, gives linear history. No acute distress at rest. HEENT: scleral clear. MMM. LUNGS: diffusely diminished. CV: tachycardic, some skipped beats but mostly regular. with no murmurs ABD: +BS, soft, NT/ND EXT: no cyanosis, clubbing. 1-2+ puffy geoffrey edema to ankles. legs not tender MSK: No joint redness or swelling SKIN: No rashs or open wounds. PSYCH: normal mood and affect, normal thought process Objective Last Vital Signs Temp 36.6 C 05/10/22 15:23 Pulse 103 H 05/10/22 16:10 Resp 18 05/10/22 15:23 BP 103/60 05/10/22 15:23 Pulse Ox 90 L 05/10/22 15:23 Laboratory Results - last 24 hr 05/09/22 05/09/22 05/09/22 22:10 22:10 22:10 WBC 12.02 H RBC 3.60 L Hgb 9.5 L Hct 31.9 L MCV 89 MCH 26.4 L MCHC 29.8 L RDW 14.0 Plt Count 296 MPV 10.1 Immature Gran % 0.2 Neutrophils % 83.2 Lymphocytes % 6.7 Monocytes % 8.8 Eosinophils % 0.9 Basophils % 0.2 Nucleated RBC % 0.0 Absolute Neutrophils 10.00 H Absolute Lymphocytes 0.81 L Absolute Monocytes 1.06 H Absolute Eosinophils 0.11 Absolute Basophils 0.02 VBG pH 7.38 VBG pCO2 65 H* VBG pO2 36 VBG HCO3 39 H VBG Total CO2 37 H VBG O2 Saturation 66 VBG Base Excess 14 H Sodium 141 Potassium 4.2 Chloride 97 L Carbon Dioxide 37.8 H Anion Gap 6.2 BUN 54 H Creatinine 1.8 H Estimated GFR/1.73 m2 27.66 Glucose 289 H Calcium 9.9 Magnesium 2.4 Total Bilirubin 0.8 AST 44 H ALT 59 Alkaline Phosphatase 70 Troponin I 70 H* NT-Pro-B Natriuret Pep 53864 H Total Protein 7.4 Albumin 3.4 COVID-19 Source SARS-CoV-2 (PCR) 05/10/22 05/10/2205/10/22 01:18 01:45 05:33 WBC RBC Hgb Hct MCV MCH MCHC RDW Plt Count MPV Immature Gran % Neutrophils % Lymphocytes % Monocytes % Eosinophils % Basophils % Nucleated RBC % Absolute Neutrophils Absolute Lymphocytes Absolute Monocytes Absolute Eosinophils Absolute Basophils VBG pH VBG pCO2 VBG pO2 VBG HCO3 VBG Total CO2 VBG O2 Saturation VBG Base Excess Sodium Potassium Chloride Carbon Dioxide Anion Gap BUN Creatinine Estimated GFR/1.73 m2 Glucose Calcium Magnesium Total Bilirubin AST ALT Alkaline Phosphatase Troponin I 84 H* Cancelled NT-Pro-B Natriuret Pep Total Protein Albumin COVID-19 Source Nasal/Nares SARS-CoV-2 (PCR) Negative 05/10/22 05/10/22 06:05 11:05 WBC RBC Hgb Hct MCV MCH MCHC RDW Plt Count MPV Immature Gran % Neutrophils % Lymphocytes % Monocytes % Eosinophils % Basophils % Nucleated RBC % Absolute Neutrophils Absolute Lymphocytes Absolute Monocytes Absolute Eosinophils Absolute Basophils VBG pH VBG pCO2 VBG pO2 VBG HCO3 VBG Total CO2 VBG O2 Saturation VBG Base Excess Sodium 144 Potassium 4.2 Chloride 100 Carbon Dioxide 40.5 H Anion Gap 3.5 BUN 50 H Creatinine 1.5 H Estimated GFR/1.73 m2 34.13 Glucose 205 H Calcium 10.1 Magnesium Total Bilirubin AST ALT Alkaline Phosphatase Troponin I 100 H* 126 H* NT-Pro-B Natriuret Pep Total Protein Albumin COVID-19 Source SARS-CoV-2 (PCR)
[2022-05-10] MEDS: Normal Saline Flush 10 ML SYR IVP (16:52)
[2022-05-10 17:33] LABS: Troponin I 118 ng/L (<or=60)
[2022-05-10 17:47] LABS: Lab Add On Test DONE
[2022-05-10 17:55] LABS: Glucose 422 mg/dL (74-106)
[2022-05-10] MEDS: Atorvastatin 40 MG TAB 80 MG PO (20:13)
[2022-05-10] MEDS: Gabapentin 300 MG CAP PO (20:41)
[2022-05-10] MEDS: Acetaminophen 500 MG TAB 1000 MG PO (21:58)
[2022-05-10] MEDS: Insulin Glargine 300 UNITS/3 ML PEN 30 UNITS SC (21:59)
[2022-05-11] VITALS (11 sets, daily range): BP systolic 86–115; BP diastolic 49–64; PULSE 72–91; RESP 18–20; TEMP 35.1–36.8; O2SAT 90–98
[2022-05-11] MEDS: Normal Saline Flush 10 ML SYR IVP (08:33)
[2022-05-11] MEDS: Enoxaparin 40 MG/0.4 ML SYR 30 MG SC (08:33)
[2022-05-11] MEDS: Cholecalciferol (Vitamin D3) 1,000 UNIT TAB 1000 UNITS PO (08:41)
[2022-05-11] MEDS: glipiZIDE 5 MG TAB 2.5 MG PO (08:41)
[2022-05-11] MEDS: Calcium Carbonate 1.5 GM TAB PO ×2 (08:41→20:05)
[2022-05-11] MEDS: Aspirin E.C. 81 MG TABEC PO (08:41)
[2022-05-11] MEDS: predniSONE 10 MG TAB 15 MG PO (08:41)
[2022-05-11] MEDS: Omeprazole 20 MG CAPCR PO (08:41)
[2022-05-11] MEDS: Cetirizine 10 MG TAB PO (08:42)
[2022-05-11] MEDS: Empaglifozin 25 MG TAB PO (09:05)
[2022-05-11] MEDS: Metoprolol CR 25 MG TABCR PO (09:05)
[2022-05-11] MEDS: Spironolactone 25 MG TAB PO (09:06)
[2022-05-11] MEDS: Acetaminophen 500 MG TAB 1000 MG PO ×2 (09:06→20:05)
[2022-05-11] MEDS: Torsemide 20 MG TAB 40 MG PO ×2 (09:10→20:05)
[2022-05-11 10:46] LABS: Abs Immature Grans 0.04 10^3/uL (0.0-0.06); Absolute Basophil Count 0.02 10^3/uL (0.0-0.2); Absolute Eosinophil Count 0.12 10^3/uL (0.0-0.7); Absolute Lymphocyte Count 1.03 10^3/uL (1.2-3.4); Absolute Monocyte Count 1.12 10^3/uL (0.1-0.8); Absolute Neutrophil Count 8.07 10^3/uL (1.2-6.7); Basophils % 0.2; Eosinophils % 1.2; HCT 26.2 % (36.0-46.0); HGB 7.9 g/dL (11.2-15.7); Immature Grans % 0.4; Lymphocytes % 9.9; MCH 26.7 pg (27.0-33.0); MCHC 30.2 % (32.0-36.0); MCV 89 fL (80-95); MPV 10.3 fL (8.0-11.0); Monocytes % 10.8; Neutrophils % 77.5; Platelet Count 236 10^3/uL (130-400); RBC 2.96 10^6/uL (3.93-5.22); RDW 14.2 % (11.7-14.6); RDW-SD 45.9 fL
[2022-05-11 10:48] LABS: BUN 59 mg/dL (7-18); CREATININE 1.7 mg/dL (0.55-1.02); Calcium 9.8 mg/dL (8.5-10.1); Chloride 98 mmol/L (98-107); Estimated GFR 29.54 (mL/min/1.73m2); Glucose 168 mg/dL (74-106); Potassium 4.3 mmol/L (3.5-5.1); Sodium 139 mmol/L (136-145)
[2022-05-11 11:02] LABS: Diff Comment Diff Reviewed; Hypochromasia 2+
[2022-05-11] MEDS: Insulin Aspart 300 UNITS/3 ML PEN SC ×2 (12:11→16:47)
--- NOTE | 2022-05-11 12:39 | W.PM.PROGNOT ---
Date of Service Date of service: 05/11/22 Time of Service: 12:39 Assessment and Plan Assessment and plan (1) Acute exacerbation of congestive heart failure: Status: Acute Assessment and plan: Lungs are clear, no diff breathing, vss (2) Elevated troponin: Status: Acute Assessment and plan: Mild elevation of troponin up from 55 at last admission. Cont to slowly rise: 70>84>100>126, now down to 118. Cont to monitor. She is currently chest pain free. Does not appear to be ACS. Likely strain from CHF in setting of CKD. Continue ASA, atorvastatin. She has an event monitor on - she will fu oliver Paz (3) Heart failure with reduced ejection fraction: Status: Chronic Assessment and plan: See CHF above. Adding metoprolol, continue ARNI, spironolactone, SGLT-2. (4) Essential hypertension: Status: Chronic Assessment and plan: BP is good. beta cyndi initiated on admission. (5) Type 2 diabetes mellitus: Status: Chronic Assessment and plan: with GFR now below 30 I am holding metfomrin. Will add glargine insulin. She would benefit from GLP-1 given high A1c and CAD. Consider as outpatient. (6) Chronic kidney disease: Status: Chronic Assessment and plan: At her recent baseline. monitor with diuresis. (7) Polymyalgia rheumatica: Status: Chronic Assessment and plan: Continue prednisone as part of slow taper. (8) Chronic obstructive pulmonary disease: Status: Chronic Assessment and plan: No acute exacerbations. Cont. inhaler tx. Qualifiers: COPD type: emphysema Emphysema type: centrilobular Qualified Code(s): J43.2 - Centrilobular emphysema (9) Nicotine dependence, cigarettes, uncomplicated: Status: Chronic Assessment and plan: NRT while inpatient prn. (10) DVT prophylaxis: Status: Acute Assessment and plan: LMWH (11) Discharge planning issues: Status: Acute Assessment and plan: She would like to go to the [facility], she has a family member there. She feels she is not strong enough to go home, I agree she would benefit from rehab. Discussed with Dr Guardado. Subjective Subjective Patient reports: no new complaints Interval history since last seen: Beth has an event monitor on - we did take it off to charge it. Replaced it. She has had no diff breathing, no CP, no abd pain and is eating well, drinking plenty of fluids. H&H was a little low this am, repeated, back to baseline without intervention. Exam Narrative Exam Narrative: GEN: Sitting in chair. Alert and oriented, cooperative, No acute distress at rest. HEENT: scleral clear. MMM. LUNGS: diffusely diminished. CV: tachycardic, some skipped beats but mostly regular. with no murmurs, no CP (has event monitor on) ABD: +BS, soft, NT EXT: no cyanosis, clubbing. 1-2+ puffy geoffrey edema to ankles. legs not tender MSK: No joint redness or swelling SKIN: No rashs or open wounds. PSYCH: normal mood and affect, normal thought process Objective Last Vital Signs Temp 36.3 C L 05/11/22 11:18 Pulse 89 05/11/22 11:18 Resp 20 05/11/22 11:18 BP 86/49 L 05/11/22 11:18 Pulse Ox 90 L 05/11/22 11:18 Laboratory Results - last 24 hr 05/10/22 05/10/22 05/10/22 16:45 16:45 17:08 WBC RBC Hgb Hct MCV MCH MCHC RDW Plt Count MPV Immature Gran % Neutrophils % Lymphocytes % Monocytes % Eosinophils % Basophils % Nucleated RBC % Absolute Neutrophils Absolute Lymphocytes Absolute Monocytes Absolute Eosinophils Absolute Basophils RBC Morphology Hypochromasia Sodium Potassium Chloride Carbon Dioxide Anion Gap BUN Creatinine Estimated GFR/1.73 m2 Glucose 422 H Calcium Troponin I 118 H* Add-On Test Request DONE 05/11/22 05/11/22 10:30 10:30 WBC 10.40 RBC 2.96 L Hgb 7.9 L Hct 26.2 L MCV 89 MCH 26.7 L MCHC 30.2 L RDW 14.2 Plt Count 236 MPV 10.3 Immature Gran % 0.4 Neutrophils % 77.5 Lymphocytes % 9.9 Monocytes % 10.8 Eosinophils % 1.2 Basophils % 0.2 Nucleated RBC % 0.0 Absolute Neutrophils 8.07 H Absolute Lymphocytes 1.03 L Absolute Monocytes 1.12 H Absolute Eosinophils 0.12 Absolute Basophils 0.02 RBC Morphology See Below Hypochromasia 2+ Sodium 139 Potassium 4.3 Chloride 98 Carbon Dioxide 37.0 H Anion Gap 4.0 BUN 59 H Creatinine 1.7 H Estimated GFR/1.73 m2 29.54 Glucose 168 H Calcium 9.8 Troponin I Add-On Test Request
[2022-05-11 13:35] LABS: HCT 28.7 % (36.0-46.0); HGB 8.6 g/dL (11.2-15.7)
[2022-05-11] MEDS: Sacubitril/Valsartan 24 mg/26 mg TAB 1 EACH PO (20:05)
[2022-05-11] MEDS: Atorvastatin 40 MG TAB 80 MG PO (20:05)
[2022-05-11] MEDS: Gabapentin 300 MG CAP PO (20:05)
[2022-05-11] MEDS: Insulin Glargine 300 UNITS/3 ML PEN 30 UNITS SC (20:06)
[2022-05-12] VITALS (9 sets, daily range): BP systolic 94–111; BP diastolic 57–67; PULSE 82–119; RESP 16–24; TEMP 35.8–37.9; O2SAT 91–98
[2022-05-12] MEDS: Cholecalciferol (Vitamin D3) 1,000 UNIT TAB 1000 UNITS PO (07:43)
[2022-05-12] MEDS: Calcium Carbonate 1.5 GM TAB PO ×2 (07:43→20:15)
[2022-05-12] MEDS: Omeprazole 20 MG CAPCR PO (07:43)
[2022-05-12] MEDS: Aspirin E.C. 81 MG TABEC PO (07:43)
[2022-05-12] MEDS: Torsemide 20 MG TAB 40 MG PO ×2 (07:43→20:14)
[2022-05-12] MEDS: Metoprolol CR 25 MG TABCR PO (07:43)
[2022-05-12] MEDS: Cetirizine 10 MG TAB PO (07:44)
[2022-05-12] MEDS: Empaglifozin 25 MG TAB PO (07:44)
[2022-05-12] MEDS: Spironolactone 25 MG TAB PO (07:44)
[2022-05-12] MEDS: Enoxaparin 40 MG/0.4 ML SYR 30 MG SC (07:44)
[2022-05-12] MEDS: predniSONE 10 MG TAB 15 MG PO (07:44)
[2022-05-12] MEDS: glipiZIDE 5 MG TAB 2.5 MG PO (07:45)
[2022-05-12 07:51] LABS: Abs Immature Grans 0.05 10^3/uL (0.0-0.06); Absolute Basophil Count 0.02 10^3/uL (0.0-0.2); Absolute Lymphocyte Count 1.67 10^3/uL (1.2-3.4); Absolute Neutrophil Count 8.51 10^3/uL (1.2-6.7); Basophils % 0.2; HCT 28.6 % (36.0-46.0); HGB 8.4 g/dL (11.2-15.7); Immature Grans % 0.4; Lymphocytes % 14.6; MCH 26.6 pg (27.0-33.0); MCHC 29.4 % (32.0-36.0); MCV 91 fL (80-95); MPV 9.9 fL (8.0-11.0); Monocytes % 9.6; Neutrophils % 74.2; Platelet Count 255 10^3/uL (130-400); RBC 3.16 10^6/uL (3.93-5.22); RDW 13.9 % (11.7-14.6); RDW-SD 46.5 fL; WBC 11.47 10^3/uL (4.4-10.8)
[2022-05-12 07:52] LABS: Absolute Eosinophil Count 0.11 10^3/uL (0.0-0.7)
[2022-05-12 08:02] LABS: BUN 74 mg/dL (7-18); CREATININE 2.2 mg/dL (0.55-1.02); Calcium 9.7 mg/dL (8.5-10.1); Chloride 97 mmol/L (98-107); Estimated GFR 21.94 (mL/min/1.73m2); Glucose 103 mg/dL (74-106); Magnesium 2.6 mg/dL (1.8-2.4); Potassium 4.2 mmol/L (3.5-5.1); Sodium 139 mmol/L (136-145)
[2022-05-12] MEDS: Albuterol HFA 8 GM 60 PUFF INH IH (08:42)
[2022-05-12] MEDS: Insulin Aspart 300 UNITS/3 ML PEN SC ×2 (12:08→16:38)
--- NOTE | 2022-05-12 18:18 | CMPROGNOTE_ITS ---
- If Service Date Differs Date of service: 05/12/22 Time of Service: 18:18 Care Management Progress Note S/O: Beth was sitting up in be when CM met with her. She shared that she is feeling better but recounted a negative experience she had in the ED the day she was admitted. CM will discuss with appropriate staff. A referral was sent to the [facility] for Beth and a bed offer was received this afternoon. She and her daughter accepted the offer. Her daughter Lida will transport. A: Beth is a 71 year old woman admitted on 05/09/22 with CHF P:Beth will transfer to [facility] tomorrow for short term rehab. She will follow up with facility providers and plan of care and transport with her daughter Mindy. CM will continue to support Beth's discharge planning needs.
[2022-05-12] MEDS: Insulin Glargine 300 UNITS/3 ML PEN 30 UNITS SC (20:13)
--- NOTE | 2022-05-12 20:14 | W.PM.DS.N ---
DS: Diagnosis Discharge Diagnosis (1) Acute exacerbation of congestive heart failure: Status: Acute (2) Elevated troponin: Status: Acute (3) Heart failure with reduced ejection fraction: Status: Chronic (4) Essential hypertension: Status: Chronic (5) Type 2 diabetes mellitus: Status: Chronic (6) Chronic kidney disease: Status: Chronic (7) Polymyalgia rheumatica: Status: Chronic (8) Chronic obstructive pulmonary disease: Status: Chronic (9) Nicotine dependence, cigarettes, uncomplicated: Status: Chronic (10) DVT prophylaxis: Status: Acute (11) Discharge planning issues: Status: Acute Discharge Plan Disposition Patient Disposition: SNF (LEVEL 1) [facility] Condition: Stable Discharge Details Reason For Visit: CHF Admit Date/Time: 05/10/22 02:03 Admit Provider: Dudley Persaud Attending Provider: Dudley Persaud [facility] Hospital Course: Beth is a 71 yo F that prewith HRrEF secondary to ischemic cardiomyopathy, DM with A1c 8.9%, COPD, h/o CVA, smoker, with polymalgia rheumatica on prednisone who was admitted at [facility] 05/02 to 05/08/2022 for CHF exacerbation.? She went home and felt well initially.? She had lunch with included prepared chicken and mashed potatoes from [employer] Around 3 pm she started to feel short of breath and chest pressure.? No pain, but pressure in mid lower chest without radiation.? She felt like she couldn't breath, which was similar to when she has had CHF in the past.? The pressure was new.? She started feeling better once she arrived in the [facility] ED. She denied nausea, diaphoresis, dizziness, fevers.? She denied cough, wheeze, or sputum production.? She has been feeling exhausted.?She was admitted for shortness of breath in the previous admission and was diuresed.? Her empagliflozin was titrated up from 10mg to 25mg.? Her furosemide was increased from 40mg to 80mg BID and spironolactone was added (she was not on this at the time but has been in the past). ?Her troponin in the ED was 84, second was 70. She was admitted to the medical surgical unit. Metformin is being held, glargine insulin was added secondary to her GFR. She has an event monitor on that was ordered by Dr Meneses. She has had no chest pain or shortness of breath during her in patient stay. She is awake, alert and eager to go to rehab. She feels she has lost a lot of strength over the past month. She is being discharged to the [facility], improved, stable. Discussed with Dr Guardado Direct patient care and documentation took 4 min Home Meds and New Rx's Prescriptions: No Action calcium carbonate [Calcium 600] 600 mg calcium (1,500 mg) tablet 600 mg PO BID acetaminophen 500 mg tablet 1,000 mg PO Q6H PRN Label Comments: Max 6 tabs daily per pt albuterol sulfate 90 mcg/actuation HFA aerosol inhaler 2 puff inhalation Q6H PRN (Reason: shortness of breath or wheezing) Qty: 18 4RF glipizide 5 mg tablet 2.5 mg PO DAILY Qty: 45 3RF Rx Instructions: Half a tablet daily amlodipine 5 mg tablet 5 mg PO DAILY Qty: 90 3RF Rx Instructions: Take 1 tablet daily atorvastatin 80 mg tablet 80 mg PO QPM Qty: 90 3RF (DME) blood-glucose meter [[employer] Ultra2 Meter] Kit See Rx Instructions .MEDSUPPLY Qty: 1 2RF Rx Instructions: Check blood sugar twice a day fluticasone propionate [Flonase Allergy Relief] 50 mcg/actuation spray,suspension 2 spray intranasal DAILY PRN (Reason: allergy symptoms) Qty: 16 4RF Rx Instructions: administer into each nostril (DME) blood sugar diagnostic Strip See Rx Instructions .MEDSUPPLY Qty: 200 4RF Rx Instructions: Check blood sugar twice a day (DME) lancets [OneTouch Delica Plus Lancet] 33 gauge misc See Rx Instructions .MEDSUPPLY Qty: 200 4RF Rx Instructions: Check blood sugar twice a day metformin 500 mg tablet 1,000 mg PO BID Qty: 360 4RF cetirizine 10 mg tablet 10 mg PO DAILY Qty: 90 4RF Rx Instructions: take one tablet daily Bevespi Aerosphere 9-4.8 mcg HFA aerosol inhaler 1 puff inhalation BID Qty: 10.7 4RF Hold Instructions: Has not started and does not wish to for now Rx Instructions: 1 puff twice a day (DME) Aerochamber MV Spacer See Rx Instructions .ROUTE .MEDSUPPLY Qty: 2 4RF Rx Instructions: Use with inhalers omeprazole 20 mg capsule,delayed release(DR/EC) 20 mg PO DAILY Qty: 90 4RF Entresto 24-26 mg tablet 1 tab PO BID Qty: 90 4RF cholecalciferol (vitamin D3) [Vitamin D3] 25 mcg (1,000 unit) Capsule 25 mcg PO DAILY aspirin 81 mg Tablet,Delayed Release (Dr/Ec) 81 mg PO DAILY Qty: 0 0RF spironolactone 25 mg Tablet 25 mg PO DAILY Qty: 30 0RF Jardiance 25 mg tablet 25 mg PO DAILY Qty: 30 0RF furosemide 40 mg tablet 80 mg PO 2XD Qty: 90 3RF gabapentin 300 mg capsule 300 mg PO QHS Qty: 30 0RF prednisone 5 mg tablet 15 mg PO DAILY Label Comments: TAKE ONE TABLET BY MOUTH DAILY TO BEGIN AFTER COMPLETING THE 20MG DOSE ON THE TAPER ( GOAL IS TO BE TAKING 15MG AT THIS STEP) Discharge Instructions Instructions: Heart Failure (DC), Heart Healthy Diet (DC), Edema (DC), Cigarette Smoking and Your Health (GEN) Referrals: Katherine Andre NP [Primary Care Provider] - ([facility]) Sujatha Meneses MD [ [facility] STAFF PHYSICIAN] - (Follow up regarding event monitor and inpatient admission.) Activity:: Activity as Tolerated Equipment/Supplies:: Oxygen (L/min Below) Diet:: Low Sodium DS: Summary Time Spent with Patient providing and/or coordinating discharge services: Less than 30 minutes Status at Discharge Functional status at discharge: uses cane/walker Overall status at discharge: patient is progressing back to baseline Mental Status: mental status grossly normal Speech and Movement: speech and movement normal Mood: congruent mood Affect: normal affect Exam Psych Mental Status: mental status grossly normal Speech and Movement: speech and movement normal Mood: congruent mood Affect: normal affect DS: Data Vitals/I&O Vitals and I&O: Vital Signs Temperature 36.9 C 05/12/22 15:41 Temperature Source Tympanic 05/12/22 15:41 Pulse 85 05/12/22 15:41 Pulse Rhythm Regular 05/12/22 19:51 Pulse 108 H 05/10/22 09:00 Respiratory Rate 24 05/12/22 15:41 Respiratory Effort Non-Labored 05/12/22 19:51 Respiratory Depth Normal 05/12/22 19:51 Respiratory Pattern Normal 05/12/22 19:51 Blood Pressure 97/61 L 05/12/22 15:41 Blood Pressure Mean 79 05/10/22 09:20 Blood Pressure Position Supine 05/10/22 09:20 Pulse Oximetry 94 05/12/22 15:41 Oxygen Delivery Method Room Air 05/12/22 15:41 Oxygen Flow Rate 0 05/12/22 15:41 Pain Level 0 05/12/22 03:54 Comment 05/12/22 07:45 Intake & Output 05/11/22 05/12/22 05/12/22 23:59 11:59 23:59 Intake Total 780 / 780 250 / 610 360 / 610 Output Total 1250 / 2100 1100 / 2700 1600 / 2700 Balance -470 / -1320 -850 / -2090 -1240 / -2090 Weight 76.5 kg Intake: Oral 780 / 780 250 / 610 360 / 610 Output: Urine 1250 / 2100 1100 / 2700 1600 / 2700 Other: Urine Color Yellow Yellow Yellow Urine Appearance Clear Clear Clear Urine Odor None None None Stool Occult Blood Negative Stool Size Copious Stool Characteristics Soft Liquid Brown Voiding Methods Bedside Commode Bedside Commode Bedside Commode Data Completed and Pending Labs on day of discharge: Labs from last 24 hours 05/12/22 05/12/22 07:43 07:43 WBC 11.47 H RBC 3.16 L Hgb 8.4 L Hct 28.6 L MCV 91 MCH 26.6 L MCHC 29.4 L RDW 13.9 Plt Count 255 MPV 9.9 Immature Gran % 0.4 Neutrophils % 74.2 Lymphocytes % 14.6 Monocytes % 9.6 Eosinophils % 1.0 Basophils % 0.2 Nucleated RBC % 0.0 Absolute Neutrophils 8.51 H Absolute Lymphocytes 1.67 Absolute Monocytes 1.10 H Absolute Eosinophils 0.11 Absolute Basophils 0.02 Sodium 139 Potassium 4.2 Chloride 97 L Carbon Dioxide 36.0 H Anion Gap 6.0 BUN 74 H Creatinine 2.2 H Estimated GFR/1.73 m2 21.94 Glucose 103 Calcium 9.7 Magnesium 2.6 H Preliminary micro results at discharge 05/10/22 02:25 Blood Culture - Preliminary Blood NO GROWTH 48 HOURS 05/10/22 02:15 Blood Culture - Preliminary Blood NO GROWTH 48 HOURS PFSH All Active Problems (Updated 05/10/22 @ 03:11 by Dudley Persaud) Discharge planning issues (Acute) DVT prophylaxis (Acute) Elevated troponin (Acute) Chronic kidney disease (Chronic) 04/2022-stage 3, Cr-1.9 Acute exacerbation of chronic obstructive pulmonary disease (Acute) Acute exacerbation of congestive heart failure (Acute) CVA (cerebral vascular accident) (Acute ~12/2021) Heart failure with reduced ejection fraction (Chronic) Chronic obstructive pulmonary disease (Chronic) 09/2021- O2 dependent on 2 l/min (O2 sat at 83% RA) Polymyalgia rheumatica (Chronic) Type 2 diabetes mellitus (Chronic) Carotid atherosclerosis (Chronic) Essential hypertension (Chronic) GERD (gastroesophageal reflux disease) (Chronic) Pulmonary nodule (Chronic) Nicotine dependence, cigarettes, uncomplicated (Chronic) Annual LDCT Osteoarthritis of hips, bilateral (Chronic) Diabetic nephropathy (Chronic) Diabetic retinopathy (Chronic) Ventral hernia (Chronic) Generalized anxiety disorder (Chronic) Benign positional vertigo (Chronic) 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 Father Diabetes Daughter No problems noted. Daughter No problems noted. Daughter No problems noted. Daughter No problems noted. 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 4 daughters
[2022-05-12] MEDS: Atorvastatin 40 MG TAB 80 MG PO (20:15)
[2022-05-12] MEDS: Gabapentin 300 MG CAP PO (20:15)
[2022-05-12] MEDS: Acetaminophen 500 MG TAB 1000 MG PO (20:15)
[2022-05-12] MEDS: Sacubitril/Valsartan 24 mg/26 mg TAB 1 EACH PO (20:16)
--- NOTE | 2022-05-12 20:17 | W.PM.PROGNOT ---
Date of Service Date of service: 05/12/22 Time of Service: 10:00 Assessment and Plan Assessment and plan (1) Acute exacerbation of congestive heart failure: Status: Acute Assessment and plan: Lungs are clear, no diff breathing, vss (2) Elevated troponin: Status: Acute Assessment and plan: Does not appear to be ACS. Likely strain from CHF in setting of CKD. Continue ASA, atorvastatin. She has an event monitor on - she will fu oliver Paz (3) Heart failure with reduced ejection fraction: Status: Chronic Assessment and plan: See CHF above. Adding metoprolol, continue ARNI, spironolactone, SGLT-2. (4) Essential hypertension: Status: Chronic Assessment and plan: BP is good. beta cyndi initiated on admission. (5) Type 2 diabetes mellitus: Status: Chronic Assessment and plan: Metformin is being held, glargine insulin was added. She would benefit from GLP-1 given high A1c and CAD. Consider as outpatient. (6) Chronic kidney disease: Status: Chronic Assessment and plan: At her recent baseline. monitor with diuresis. (7) Polymyalgia rheumatica: Status: Chronic Assessment and plan: Continue prednisone as part of slow taper. (8) Chronic obstructive pulmonary disease: Status: Chronic Assessment and plan: No acute exacerbations. Cont. inhaler tx. Qualifiers: COPD type: emphysema Emphysema type: centrilobular Qualified Code(s): J43.2 - Centrilobular emphysema (9) Nicotine dependence, cigarettes, uncomplicated: Status: Chronic Assessment and plan: NRT while inpatient prn. (10) DVT prophylaxis: Status: Acute Assessment and plan: LMWH (11) Discharge planning issues: Status: Acute Assessment and plan: She would like to go to the [facility], she has a family member there. She feels she is not strong enough to go home, I agree she would benefit from rehab. Discussed with Dr Guardado. Subjective Subjective Patient reports: no new complaints, feels better, tolerating a regular diet and fever; denies voiding w/o difficulty, nausea or shortness of breath Interval history since last seen: Beth is feeling well today, she is eager to go to the [facility] - we are waiting on bed approval. She has had no CP, SOB and is eating well. Exam Narrative Exam Narrative: GEN: Sitting on the side of the bed. Alert and oriented, cooperative, No acute distress at rest. HEENT: scleral clear. MMM. LUNGS: diffusely diminished. CV: tachycardic, RRR, with no murmurs, no CP (has event monitor on) ABD: +BS, soft, NT EXT: no cyanosis, clubbing. 1+ puffy geoffrey edema to ankles. legs not tender MSK: No joint redness or swelling SKIN: No rashs or open wounds. PSYCH: normal mood and affect, normal thought process Objective Last Vital Signs Temp 36.9 C 05/12/22 15:41 Pulse 85 05/12/22 15:41 Resp 24 05/12/22 15:41 BP 97/61 L 05/12/22 15:41 Pulse Ox 94 05/12/22 15:41 Laboratory Results - last 24 hr 05/12/22 05/12/22 07:43 07:43 WBC 11.47 H RBC 3.16 L Hgb 8.4 L Hct 28.6 L MCV 91 MCH 26.6 L MCHC 29.4 L RDW 13.9 Plt Count 255 MPV 9.9 Immature Gran % 0.4 Neutrophils % 74.2 Lymphocytes % 14.6 Monocytes % 9.6 Eosinophils % 1.0 Basophils % 0.2 Nucleated RBC % 0.0 Absolute Neutrophils 8.51 H Absolute Lymphocytes 1.67 Absolute Monocytes 1.10 H Absolute Eosinophils 0.11 Absolute Basophils 0.02 Sodium 139 Potassium 4.2 Chloride 97 L Carbon Dioxide 36.0 H Anion Gap 6.0 BUN 74 H Creatinine 2.2 H Estimated GFR/1.73 m2 21.94 Glucose 103 Calcium 9.7 Magnesium 2.6 H
[2022-05-13 03:14] VITALS: BP 100/65; PULSE 85; RESP 18; TEMP 36.7; O2SAT 94
--- NOTE | 2022-05-13 05:13 | NUR.NOTE ---
Nursing Note: This nurse set patient's bed alarm at around 1:20am after patient used bedside commode. At around 4:15am bed alarm was sounding, patient had not rang bob. This nurse assisted patient to bedside commode and instructed patient to call before going back to bed. Patient did not call and this nurse checked on patient after approximately 2-3 minutes to see if she was finished. Patient stated multiple times that she called and nobody answered. Nurse informed patient that her bob was not ringing. Nurse asked patient to demonstrate which button she was using to call for nurse. Patient showed the nurse the call button and this nurse tested functionality of bob and it worked when nurse tried. Patient was already sitting on bed and stated when she was getting back to bed she fell on the mattress Patient stated she did not fall to floor, she did not hit side rail, she stated that she only fell to mattress. Patient again instructed to call for assistance prior to standing. Patient bed alarm set while patient remained in sitting position at edge of bed to drink coffee and eat toast.
[2022-05-13 07:30] VITALS: BP 106/62; PULSE 84; RESP 18; TEMP 36.7; O2SAT 93
[2022-05-13] MEDS: Normal Saline Flush 10 ML SYR IVP (08:20)
[2022-05-13] MEDS: Enoxaparin 30 MG/0.3 ML SYR SC (08:20)
[2022-05-13] MEDS: Torsemide 20 MG TAB 40 MG PO (08:21)
[2022-05-13] MEDS: Sacubitril/Valsartan 24 mg/26 mg TAB 1 EACH PO (08:21)
[2022-05-13] MEDS: predniSONE 10 MG TAB 15 MG PO (08:21)
[2022-05-13] MEDS: Calcium Carbonate 1.5 GM TAB PO (08:22)
[2022-05-13] MEDS: Aspirin E.C. 81 MG TABEC PO (08:22)
[2022-05-13] MEDS: Spironolactone 25 MG TAB PO (08:22)
[2022-05-13] MEDS: Metoprolol CR 25 MG TABCR PO (08:22)
[2022-05-13] MEDS: Acetaminophen 500 MG TAB 1000 MG PO (08:22)
[2022-05-13] MEDS: Empaglifozin 25 MG TAB PO (08:23)
[2022-05-13] MEDS: Omeprazole 20 MG CAPCR PO (08:23)
[2022-05-13] MEDS: Cetirizine 10 MG TAB PO (08:23)
[2022-05-13] MEDS: glipiZIDE 5 MG TAB 2.5 MG PO (08:23)
[2022-05-13] MEDS: Cholecalciferol (Vitamin D3) 1,000 UNIT TAB 1000 UNITS PO (08:26)
--- NOTE | 2022-05-13 09:05 | W.PM.DS.N ---
Date of service: 05/13/22 Time of Service: 09:05 DS: Diagnosis Discharge Diagnosis (1) Acute exacerbation of congestive heart failure: Status: Acute (2) Elevated troponin: Status: Resolved (3) Heart failure with reduced ejection fraction: Status: Chronic (4) Essential hypertension: Status: Chronic (5) Type 2 diabetes mellitus: Status: Chronic (6) Chronic kidney disease: Status: Chronic (7) Polymyalgia rheumatica: Status: Chronic (8) Chronic obstructive pulmonary disease: Status: Chronic (9) Nicotine dependence, cigarettes, uncomplicated: Status: Chronic Discharge Plan Disposition Patient Disposition: SNF (LEVEL 1) [facility] Condition: Stable Discharge Details Reason For Visit: CHF Admit Date/Time: 05/10/22 02:03 Admit Provider: Dudley Persaud Attending Provider: Dudley Persaud [facility]: Beth is a 71 yo F that prewith HRrEF secondary to ischemic cardiomyopathy, DM with A1c 8.9%, COPD, h/o CVA, smoker, with polymalgia rheumatica on prednisone who was admitted at [facility] 05/02 to 05/08/2022 for CHF exacerbation.? She went home and felt well initially.? She had lunch with included prepared chicken and mashed potatoes from [employer] Around 3 pm she started to feel short of breath and chest pressure.? No pain, but pressure in mid lower chest without radiation.? She felt like she couldn't breath, which was similar to when she has had CHF in the past.? The pressure was new.? She started feeling better once she arrived in the [facility] ED. She denied nausea, diaphoresis, dizziness, fevers.? She denied cough, wheeze, or sputum production.? She has been feeling exhausted.?She was admitted for shortness of breath in the previous admission and was diuresed.? Her empagliflozin was titrated up from 10mg to 25mg.? Her furosemide was increased from 40mg to 80mg BID and spironolactone was added (she was not on this at the time but has been in the past). ?Her troponin in the ED was 84, second was 70. She was admitted to the medical surgical unit. Metformin is being held, glargine insulin was added secondary to her GFR. She has an event monitor on that was ordered by Dr Meneses. She has had no chest pain or shortness of breath during her in patient stay. She is awake, alert and eager to go to rehab. She feels she has lost a lot of strength over the past month. She is being discharged to the [facility], improved, stable. Discussed with Dr Guardado Direct patient care and documentation took 40 min Home Meds and New Rx's Prescriptions: No Action calcium carbonate [Calcium 600] 600 mg calcium (1,500 mg) tablet 600 mg PO BID acetaminophen 500 mg tablet 1,000 mg PO Q6H PRN Label Comments: Max 6 tabs daily per pt albuterol sulfate 90 mcg/actuation HFA aerosol inhaler 2 puff inhalation Q6H PRN (Reason: shortness of breath or wheezing) Qty: 18 4RF glipizide 5 mg tablet 2.5 mg PO DAILY Qty: 45 3RF Rx Instructions: Half a tablet daily amlodipine 5 mg tablet 5 mg PO DAILY Qty: 90 3RF Rx Instructions: Take 1 tablet daily atorvastatin 80 mg tablet 80 mg PO QPM Qty: 90 3RF (DME) blood-glucose meter [ECO-GEN Energyuch Ultra2 Meter] Kit See Rx Instructions .MEDSUPPLY Qty: 1 2RF Rx Instructions: Check blood sugar twice a day fluticasone propionate [Flonase Allergy Relief] 50 mcg/actuation spray,suspension 2 spray intranasal DAILY PRN (Reason: allergy symptoms) Qty: 16 4RF Rx Instructions: administer into each nostril (DME) blood sugar diagnostic Strip See Rx Instructions .MEDSUPPLY Qty: 200 4RF Rx Instructions: Check blood sugar twice a day (DME) lancets [OneTouch Delica Plus Lancet] 33 gauge misc See Rx Instructions .MEDSUPPLY Qty: 200 4RF Rx Instructions: Check blood sugar twice a day metformin 500 mg tablet 1,000 mg PO BID Qty: 360 4RF cetirizine 10 mg tablet 10 mg PO DAILY Qty: 90 4RF Rx Instructions: take one tablet daily Bevespi Aerosphere 9-4.8 mcg HFA aerosol inhaler 1 puff inhalation BID Qty: 10.7 4RF Hold Instructions: Has not started and does not wish to for now Rx Instructions: 1 puff twice a day (DME) Aerochamber MV Spacer See Rx Instructions .ROUTE .MEDSUPPLY Qty: 2 4RF Rx Instructions: Use with inhalers omeprazole 20 mg capsule,delayed release(DR/EC) 20 mg PO DAILY Qty: 90 4RF Entresto 24-26 mg tablet 1 tab PO BID Qty: 90 4RF cholecalciferol (vitamin D3) [Vitamin D3] 25 mcg (1,000 unit) Capsule 25 mcg PO DAILY aspirin 81 mg Tablet,Delayed Release (Dr/Ec) 81 mg PO DAILY Qty: 0 0RF spironolactone 25 mg Tablet 25 mg PO DAILY Qty: 30 0RF Jardiance 25 mg tablet 25 mg PO DAILY Qty: 30 0RF furosemide 40 mg tablet 80 mg PO 2XD Qty: 90 3RF gabapentin 300 mg capsule 300 mg PO QHS Qty: 30 0RF prednisone 5 mg tablet 15 mg PO DAILY Label Comments: TAKE ONE TABLET BY MOUTH DAILY TO BEGIN AFTER COMPLETING THE 20MG DOSE ON THE TAPER ( GOAL IS TO BE TAKING 15MG AT THIS STEP) Discharge Instructions Instructions: Heart Failure (DC), Heart Healthy Diet (DC), Cigarette Smoking and Your Health (GEN), Edema (DC) Stand Alone Forms: Nursing Discharge Form Referrals: Katherine Andre NP [Primary Care Provider] - (Follow up after discharge from the Snf) Sujatha Meneses MD [ [facility] STAFF PHYSICIAN] - (Follow up regarding event monitor and inpatient admission.) Activity:: Activity as Tolerated Equipment/Supplies:: Oxygen (L/min Below) Diet:: Low Sodium Discharge Orders Discharge Orders: Discharge Order (Routine); Ordered 05/13/22 Ordered By: Lynnette Sandra Discharge Data Discharge Date/Time-TO BE ENTERED AT DEPARTURE: 05/13/22 11:20 DS: Summary Time Spent with Patient providing and/or coordinating discharge services: Greater than 30 minutes Status at Discharge Functional status at discharge: uses cane/walker Overall status at discharge: patient is progressing back to baseline Mental Status: mental status grossly normal Speech and Movement: speech and movement normal Mood: congruent mood Affect: normal affect Exam Const General: cooperative, comfortable, no acute distress, frail appearing and ill appearing chronically Eyes Pupils: PERRL Chest Chest: normal inspection of the chest Resp Effort & Inspection: able to speak in complete sentences Auscultation: clear to auscultation bilaterally and diminished lung sounds Cardio Rate: regular rate Rhythm: regular rhythm GI Inspection: normal to inspection Auscultation: normal bowel sounds Skin General skin exam: no rashes or lesions noted Neuro General: patient alert and patient oriented x3 Extrem Other: distal pulses intact 1+ edema bilaterally Psych Mental Status: mental status grossly normal Speech and Movement: speech and movement normal Mood: congruent mood Affect: normal affect DS: Data Vitals/I&O Vitals and I&O: Vital Signs Temperature 36.7 C 05/13/22 07:30 Temperature Source Tympanic 05/13/22 07:30 Pulse 84 05/13/22 07:30 Pulse Rhythm Regular 05/13/22 08:15 Pulse 108 H 05/10/22 09:00 Respiratory Rate 18 05/13/22 07:30 Respiratory Effort 05/13/22 08:15 Respiratory Depth Normal 05/13/22 08:15 Respiratory Pattern Normal 05/13/22 08:15 Blood Pressure 106/62 05/13/22 07:30 Blood Pressure Mean 79 05/10/22 09:20 Blood Pressure Position Supine 05/10/22 09:20 Pulse Oximetry 93 05/13/22 07:30 Oxygen Delivery Method Nasal Cannula 05/13/22 07:30 Oxygen Flow Rate 3 05/13/22 07:30 Pain Level 4 05/13/22 08:22 Comment 05/12/22 07:45 Intake & Output 05/12/22 05/12/22 05/13/22 11:59 23:59 11:59 Intake Total 250 / 730 480 / 730 200 / 200 Output Total 1100 / 3400 2300 / 3400 950 / 950 Balance -850 / -2670 -1820 / -2670 -750 / -750 Weight 76.5 kg 76.6 kg Intake: Oral 250 / 730 480 / 730 200 / 200 Output: Urine 1100 / 3400 2300 / 3400 950 / 950 Other: Urine Color Yellow Pale Yellow Urine Appearance Clear Clear Clear Urine Odor None Normal Normal Stool Occult Blood Negative Negative Stool Size Copious Moderate Stool Characteristics Soft Soft Liquid Liquid Brown Mucoid Voiding Methods Bedside Commode Bedside Commode Bedside Commode Data Completed and Pending Labs on day of discharge: Labs from last 24 hours 05/13/22 09:03 COVID-19 Source Pending SARS-CoV-2 (PCR) Pending Preliminary micro results at discharge 05/10/22 02:25 Blood Culture - Preliminary Blood NO GROWTH 72 HOURS 05/10/22 02:15 Blood Culture - Preliminary Blood NO GROWTH 72 HOURS PFSH All Active Problems (Updated 05/14/22 @ 00:08 by HEATHER ROBISON) Chronic kidney disease (Chronic) 04/2022-stage 3, Cr-1.9 Acute exacerbation of chronic obstructive pulmonary disease (Acute) Acute exacerbation of congestive heart failure (Acute) CVA (cerebral vascular accident) (Acute ~12/2021) Heart failure with reduced ejection fraction (Chronic) Chronic obstructive pulmonary disease (Chronic) 09/2021- O2 dependent on 2 l/min (O2 sat at 83% RA) Polymyalgia rheumatica (Chronic) Type 2 diabetes mellitus (Chronic) Carotid atherosclerosis (Chronic) Essential hypertension (Chronic) GERD (gastroesophageal reflux disease) (Chronic) Pulmonary nodule (Chronic) Nicotine dependence, cigarettes, uncomplicated (Chronic) Annual LDCT Osteoarthritis of hips, bilateral (Chronic) Diabetic nephropathy (Chronic) Diabetic retinopathy (Chronic) Ventral hernia (Chronic) Generalized anxiety disorder (Chronic) Benign positional vertigo (Chronic) 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 Father Diabetes Daughter No problems noted. Daughter No problems noted. Daughter No problems noted. Daughter No problems noted. 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 4 daughters
--- NOTE | 2022-05-13 09:19 | PDOC.CMDIS ---
- If Service Date Differs Date of service: 05/13/22 Time of Service: 09:19 LACE Index Scoring Tool - Questions: Length of Stay (in days): 3 Acuity (Admit via E.D.?): Yes Comorbidities: Diabetes w/o Complication, Congestive Heart Failure, Chronic Pulmonary Disease, Liver or Renal Disease E.D. Visits: 7 - Answers: Total Score: 15 Risk of Readmission: High Risk Care Management Discharge Reason for Hospitalization: CHF Discharge Plan: Beth will transfer to [facility] for short term rehab. She will follow up with facility providers and plan of care and transport with her daughter Mindy. Patient/Family Education Needs: Review of discharge instructions and discuss Ask Me Three. Services Needed at Discharge: Long Term Facility
[2022-05-13 09:30] VITALS: BP 94/54; PULSE 87; RESP 18; O2SAT 92
[2022-05-13 09:42] LABS: Source Nasopharynx
[2022-05-13 09:46] VITALS: PULSE 82
[2022-05-13 10:32] LABS: COVID-19 PCR Negative (Negative)
--- NOTE | 2022-05-13 10:53 | NUR.NOTE ---
Nursing Note:Report given to CHAIM Serrano at the [facility].
== END 2022-05-13 11:20 | disposition skilled nursing facility (03) | DRG 291 ==
LOC: ER 05-10 02:22 → ICU 05-10 09:42 → MS 05-10 20:11
PROVIDERS: Family Medicine; Nurse Practitioner Acute Care; Nurse Practitioner Family; Admitting Provider Family Medicine; Emergency Provider Emergency Medicine; PCP Nurse Practitioner Family; Visit Provider Family Medicine
DX: I13.0 Hypertensive heart and chronic kidney disease with heart failure and stage 1 through stage 4 chronic kidney disease, or unspecified chronic kidney disease (principal); I50.23 Acute on chronic systolic (congestive) heart failure; E11.22 Type 2 diabetes mellitus with diabetic chronic kidney disease; N18.9 Chronic kidney disease, unspecified; M35.3 Polymyalgia rheumatica; F17.200 Nicotine dependence, unspecified, uncomplicated; I25.5 Ischemic cardiomyopathy; J43.2 Centrilobular emphysema; R74.8 Abnormal levels of other serum enzymes; I65.29 Occlusion and stenosis of unspecified carotid artery; K21.9 Gastro-esophageal reflux disease without esophagitis; R91.1 Solitary pulmonary nodule; M16.0 Bilateral primary osteoarthritis of hip; E11.319 Type 2 diabetes mellitus with unspecified diabetic retinopathy without macular edema; K43.9 Ventral hernia without obstruction or gangrene; F41.1 Generalized anxiety disorder; G43.109 Migraine with aura, not intractable, without status migrainosus; H81.10 Benign paroxysmal vertigo, unspecified ear; Z79.84 Long term (current) use of oral hypoglycemic drugs; Z79.82 Long term (current) use of aspirin; Z86.73 Personal history of transient ischemic attack (TIA), and cerebral infarction without residual deficits; Z79.52 Long term (current) use of systemic steroids
CPT/HCPCS: 36415; 80048; 80053; 82805; 82947; 85027; 87040; 87635; 93005; 94640; 96374; 99285; J1650; 71045; 83735; 83880; 84484; 85014; 85018; 85025; 93010; 99232; 99233; 99238; 99239; J1940; J7512; J7620

== ENCOUNTER 2022-05-14 15:12 | Outpatient (REF) | payer MEDICARE, MEDICAID, SELFPAY ==
[2022-05-14 17:04] LABS: Abs Immature Grans 0.06 10^3/uL (0.0-0.06); Absolute Basophil Count 0.02 10^3/uL (0.0-0.2); Absolute Eosinophil Count 0.09 10^3/uL (0.0-0.7); Absolute Lymphocyte Count 0.47 10^3/uL (1.2-3.4); Absolute Monocyte Count 0.33 10^3/uL (0.1-0.8); Absolute Neutrophil Count 9.83 10^3/uL (1.2-6.7); Basophils % 0.2; Eosinophils % 0.8; HCT 28.4 % (36.0-46.0); HGB 8.5 g/dL (11.2-15.7); Immature Grans % 0.6; Lymphocytes % 4.4; MCHC 29.9 % (32.0-36.0); MCV 90 fL (80-95); MPV 10.9 fL (8.0-11.0); Monocytes % 3.1; Neutrophils % 90.9; Platelet Count 274 10^3/uL (130-400); RBC 3.15 10^6/uL (3.93-5.22); RDW 14.3 % (11.7-14.6)
[2022-05-14 17:18] LABS: Iron 38 ug/dL (50-170); Total Iron Binding Capacity 373 ug/dL (250-450); Transferrin Sat 10 % (15-50)
[2022-05-14 18:02] LABS: Hemoglobin A1C 9.6 % (<5.7)
[2022-05-14 18:06] LABS: ALT 69 U/L (14-59); AST 41 U/L (15-37); Albumin 3.4 g/dL (3.4-5.0); Alkaline Phosphatase 61 U/L (46-116); Anion Gap 7.1 mmol/L (3-11); Bilirubin, Total 0.6 mg/dL (0.2-1.0); CO2 37.9 mmol/L (21.0-32.0); CREATININE 2.1 mg/dL (0.55-1.02); Calcium 9.3 mg/dL (8.5-10.1); Chloride 96 mmol/L (98-107); Estimated GFR 23.15 (mL/min/1.73m2); Ferritin 78 ng/mL (8-252); Glucose 306 mg/dL (74-106); Magnesium 2.5 mg/dL (1.8-2.4); Potassium 4.6 mmol/L (3.5-5.1); Sodium 141 mmol/L (136-145); TSH (W/Ref FT4) 0.78 uIU/mL (0.36-3.74); Total Protein 6.8 g/dL (6.4-8.2); Vitamin B12 408 pg/mL (193-986)
[2022-05-14 20:28] LABS: BUN 86 mg/dL (7-18)
[2022-05-14 20:29] LABS: Troponin I 64 ng/L (<or=60)
[2022-05-14 20:48] LABS: NT-proBNP 15296 pg/mL (<300)
[2022-05-15 05:21] LABS: Vitamin D 25 Total 41.3 ng/mL (30-100)
== END 2022-05-14 15:13 | disposition home or self-care (01) ==
LOC: LBN 15:12
PROVIDERS: PCP Nurse Practitioner Family; Visit Provider Nurse Practitioner Gerontology
DX: I50.20 Unspecified systolic (congestive) heart failure (principal); E11.22 Type 2 diabetes mellitus with diabetic chronic kidney disease; N18.31 Chronic kidney disease, stage 3a; R77.8 Other specified abnormalities of plasma proteins; I13.0 Hypertensive heart and chronic kidney disease with heart failure and stage 1 through stage 4 chronic kidney disease, or unspecified chronic kidney disease; Z79.84 Long term (current) use of oral hypoglycemic drugs; F41.1 Generalized anxiety disorder; I63.9 Cerebral infarction, unspecified; J44.1 Chronic obstructive pulmonary disease with (acute) exacerbation; K21.9 Gastro-esophageal reflux disease without esophagitis; M35.3 Polymyalgia rheumatica
CPT/HCPCS: 80053; 82306; 82607; 82728; 83036; 83540; 83550; 83735; 83880; 84443; 84484; 85025

== ENCOUNTER 2022-05-19 19:06 | Outpatient (REF) | payer MEDICARE, MEDICAID, SELFPAY ==
[2022-05-19 20:19] LABS: Abs Immature Grans 0.04 10^3/uL (0.0-0.06); Absolute Basophil Count 0.01 10^3/uL (0.0-0.2); Absolute Eosinophil Count 0.08 10^3/uL (0.0-0.7); Absolute Lymphocyte Count 1.57 10^3/uL (1.2-3.4); Absolute Monocyte Count 0.96 10^3/uL (0.1-0.8); Absolute Neutrophil Count 7.35 10^3/uL (1.2-6.7); Basophils % 0.1; Eosinophils % 0.8; HCT 27.2 % (36.0-46.0); HGB 7.7 g/dL (11.2-15.7); Immature Grans % 0.4; Lymphocytes % 15.7; MCH 26.6 pg (27.0-33.0); MCHC 28.3 % (32.0-36.0); MCV 94 fL (80-95); MPV 10.7 fL (8.0-11.0); Monocytes % 9.6; Neutrophils % 73.4; Platelet Count 256 10^3/uL (130-400); RBC 2.89 10^6/uL (3.93-5.22); RDW 15.5 % (11.7-14.6); RDW-SD 52.7 fL; WBC 10.01 10^3/uL (4.4-10.8)
[2022-05-19 20:24] LABS: Anion Gap 5.9 mmol/L (3-11); BUN 52 mg/dL (7-18); CO2 33.1 mmol/L (21.0-32.0); CREATININE 1.5 mg/dL (0.55-1.02); Calcium 8.1 mg/dL (8.5-10.1); Chloride 98 mmol/L (98-107); Estimated GFR 34.13 (mL/min/1.73m2); Glucose 154 mg/dL (74-106); Potassium 3.6 mmol/L (3.5-5.1); Sodium 137 mmol/L (136-145)
== END 2022-05-19 19:07 | disposition home or self-care (01) ==
LOC: LBN 19:06
PROVIDERS: PCP Nurse Practitioner Family; Visit Provider Nurse Practitioner Gerontology
DX: R68.89 Other general symptoms and signs (principal); E11.9 Type 2 diabetes mellitus without complications
CPT/HCPCS: 80048; 85025

== ENCOUNTER 2022-05-22 15:30 | Outpatient (REF) | payer MEDICARE, MEDICAID, SELFPAY ==
[2022-05-22 15:30] LABS: Abs Immature Grans 0.04 10^3/uL (0.0-0.06); Absolute Eosinophil Count 0.01 10^3/uL (0.0-0.7); Absolute Lymphocyte Count 0.49 10^3/uL (1.2-3.4); Absolute Monocyte Count 0.44 10^3/uL (0.1-0.8); Absolute Neutrophil Count 7.89 10^3/uL (1.2-6.7); Eosinophils % 0.1; HCT 24.9 % (36.0-46.0); HGB 7.3 g/dL (11.2-15.7); Immature Grans % 0.5; Lymphocytes % 5.5; MCH 27.2 pg (27.0-33.0); MCHC 29.3 % (32.0-36.0); MCV 93 fL (80-95); MPV 10.7 fL (8.0-11.0); Neutrophils % 88.9; Platelet Count 238 10^3/uL (130-400); RBC 2.68 10^6/uL (3.93-5.22); RDW 16.2 % (11.7-14.6); RDW-SD 54.1 fL; WBC 8.87 10^3/uL (4.4-10.8)
[2022-05-22 15:56] LABS: ALT 81 U/L (14-59); AST 53 U/L (15-37); Albumin 3.2 g/dL (3.4-5.0); Alkaline Phosphatase 56 U/L (46-116); Anion Gap 5.3 mmol/L (3-11); BUN 47 mg/dL (7-18); Bilirubin, Total 0.8 mg/dL (0.2-1.0); CO2 31.7 mmol/L (21.0-32.0); CREATININE 1.6 mg/dL (0.55-1.02); Calcium 8.2 mg/dL (8.5-10.1); Chloride 101 mmol/L (98-107); Estimated GFR 31.68 (mL/min/1.73m2); Glucose 291 mg/dL (74-106); Potassium 4.8 mmol/L (3.5-5.1); Sodium 138 mmol/L (136-145); Total Protein 6.3 g/dL (6.4-8.2)
== END 2022-05-22 15:31 | disposition home or self-care (01) ==
LOC: LBN 15:30
PROVIDERS: PCP Nurse Practitioner Family; Visit Provider Nurse Practitioner Gerontology
DX: I50.20 Unspecified systolic (congestive) heart failure (principal); I10 Essential (primary) hypertension; E11.9 Type 2 diabetes mellitus without complications; N18.31 Chronic kidney disease, stage 3a; Z79.84 Long term (current) use of oral hypoglycemic drugs; K21.9 Gastro-esophageal reflux disease without esophagitis; M35.3 Polymyalgia rheumatica; R77.8 Other specified abnormalities of plasma proteins; M62.81 Muscle weakness (generalized)
CPT/HCPCS: 80053; 85025

== ENCOUNTER 2022-05-23 21:37 | Outpatient (REF) | payer MEDICARE, MEDICAID, SELFPAY ==
[2022-05-23 12:34] LABS: Abs Immature Grans 0.04 10^3/uL (0.0-0.06); Absolute Basophil Count 0.02 10^3/uL (0.0-0.2); Absolute Eosinophil Count 0.13 10^3/uL (0.0-0.7); Absolute Lymphocyte Count 1.37 10^3/uL (1.2-3.4); Absolute Monocyte Count 0.96 10^3/uL (0.1-0.8); Basophils % 0.2; Eosinophils % 1.4; HCT 27.2 % (36.0-46.0); HGB 7.7 g/dL (11.2-15.7); Immature Grans % 0.4; Lymphocytes % 14.2; MCH 26.9 pg (27.0-33.0); MCHC 28.3 % (32.0-36.0); MCV 95 fL (80-95); MPV 10.7 fL (8.0-11.0); Neutrophils % 73.8; Platelet Count 268 10^3/uL (130-400); RBC 2.86 10^6/uL (3.93-5.22); RDW 16.5 % (11.7-14.6); RDW-SD 56.6 fL; WBC 9.62 10^3/uL (4.4-10.8)
[2022-05-23 12:50] LABS: Anisocytosis 1+; Basophilic Stippling Present; Diff Comment RBC Morph Reviewed; Poikilocytes 1+; Polychromasia Present
== END 2022-05-23 21:38 | disposition home or self-care (01) ==
LOC: LBN 21:37
PROVIDERS: PCP Nurse Practitioner Family; Visit Provider Nurse Practitioner Gerontology
DX: D64.9 Anemia, unspecified (principal)
CPT/HCPCS: 85025

== ENCOUNTER 2022-05-26 16:04 | Outpatient (REF) | payer MEDICARE, MEDICAID, SELFPAY ==
[2022-05-26 17:10] LABS: Abs Immature Grans 0.03 10^3/uL (0.0-0.06); Absolute Basophil Count 0.01 10^3/uL (0.0-0.2); Absolute Eosinophil Count 0.02 10^3/uL (0.0-0.7); Absolute Lymphocyte Count 0.58 10^3/uL (1.2-3.4); Absolute Monocyte Count 0.32 10^3/uL (0.1-0.8); Absolute Neutrophil Count 8.83 10^3/uL (1.2-6.7); Basophils % 0.1; Eosinophils % 0.2; HCT 28.2 % (36.0-46.0); HGB 8.3 g/dL (11.2-15.7); Immature Grans % 0.3; Lymphocytes % 5.9; MCH 27.5 pg (27.0-33.0); MCHC 29.4 % (32.0-36.0); MCV 93 fL (80-95); MPV 10.8 fL (8.0-11.0); Monocytes % 3.3; Neutrophils % 90.2; Platelet Count 281 10^3/uL (130-400); RBC 3.02 10^6/uL (3.93-5.22); RDW 17.1 % (11.7-14.6); RDW-SD 58.3 fL; WBC 9.79 10^3/uL (4.4-10.8)
[2022-05-26 17:31] LABS: ALT 78 U/L (14-59); AST 41 U/L (15-37); Albumin 3.5 g/dL (3.4-5.0); Alkaline Phosphatase 60 U/L (46-116); Anion Gap 6.2 mmol/L (3-11); BUN 48 mg/dL (7-18); Bilirubin, Total 0.8 mg/dL (0.2-1.0); CO2 31.8 mmol/L (21.0-32.0); CREATININE 1.4 mg/dL (0.55-1.02); Chloride 104 mmol/L (98-107); Estimated GFR 36.96 (mL/min/1.73m2); Glucose 226 mg/dL (74-106); Potassium 4.3 mmol/L (3.5-5.1); Sodium 142 mmol/L (136-145); Total Protein 6.6 g/dL (6.4-8.2)
== END 2022-05-26 16:05 | disposition home or self-care (01) ==
LOC: LBN 16:04
PROVIDERS: PCP Nurse Practitioner Family; Visit Provider Nurse Practitioner Gerontology
DX: D64.9 Anemia, unspecified (principal); R53.1 Weakness; R68.89 Other general symptoms and signs
CPT/HCPCS: 80053; 85025

== ENCOUNTER 2022-06-04 15:25 | Outpatient (REF) | payer MEDICARE, MEDICAID, SELFPAY ==
[2022-06-04 15:59] LABS: Abs Immature Grans 0.02 10^3/uL (0.0-0.06); Absolute Basophil Count 0.02 10^3/uL (0.0-0.2); Absolute Eosinophil Count 0.14 10^3/uL (0.0-0.7); Absolute Lymphocyte Count 1.55 10^3/uL (1.2-3.4); Absolute Monocyte Count 0.83 10^3/uL (0.1-0.8); Absolute Neutrophil Count 5.13 10^3/uL (1.2-6.7); Basophils % 0.3; Eosinophils % 1.8; HCT 28.8 % (36.0-46.0); HGB 8.4 g/dL (11.2-15.7); Immature Grans % 0.3; Lymphocytes % 20.2; MCH 27.4 pg (27.0-33.0); MCHC 29.2 % (32.0-36.0); MCV 94 fL (80-95); MPV 11.2 fL (8.0-11.0); Monocytes % 10.8; Neutrophils % 66.6; Platelet Count 200 10^3/uL (130-400); RBC 3.07 10^6/uL (3.93-5.22); RDW 16.7 % (11.7-14.6); RDW-SD 57.1 fL; WBC 7.69 10^3/uL (4.4-10.8)
[2022-06-04 16:20] LABS: Anion Gap 2.5 mmol/L (3-11); BUN 57 mg/dL (7-18); CO2 34.5 mmol/L (21.0-32.0); CREATININE 1.4 mg/dL (0.55-1.02); Calcium 8.9 mg/dL (8.5-10.1); Chloride 104 mmol/L (98-107); Estimated GFR 36.96 (mL/min/1.73m2); Glucose 167 mg/dL (74-106); NT-proBNP 14152 pg/mL (<300); Potassium 3.5 mmol/L (3.5-5.1); Sodium 141 mmol/L (136-145)
== END 2022-06-04 15:26 | disposition home or self-care (01) ==
LOC: LBN 15:25
PROVIDERS: PCP Nurse Practitioner Family; Visit Provider Nurse Practitioner Gerontology
DX: I50.20 Unspecified systolic (congestive) heart failure (principal); F41.1 Generalized anxiety disorder; I10 Essential (primary) hypertension; N18.31 Chronic kidney disease, stage 3a; K21.9 Gastro-esophageal reflux disease without esophagitis; E11.9 Type 2 diabetes mellitus without complications; Z79.84 Long term (current) use of oral hypoglycemic drugs
CPT/HCPCS: 80048; 83880; 85025

== ENCOUNTER 2022-06-09 12:18 | Outpatient (CLI) | payer MEDICARE, MEDICAID, SELFPAY | END 2022-06-09 12:19 | LOC: CARDO 06-11 10:49 | PROVIDERS: PCP Nurse Practitioner Family; Visit Provider Internal Medicine Cardiovascular Disease | DX: I63.9 Cerebral infarction, unspecified (principal); I65.29 Occlusion and stenosis of unspecified carotid artery; I49.1 Atrial premature depolarization | CPT/HCPCS: 93248 ==

== ENCOUNTER → 2022-06-09 14:00 | Outpatient (BNVA) | payer MEDICARE, MEDICAID, SELFPAY | PROVIDERS: PCP Nurse Practitioner Family; Referring Provider Nurse Practitioner Family; Visit Provider Internal Medicine Cardiovascular Disease | DX: I65.29 Occlusion and stenosis of unspecified carotid artery (principal); I63.9 Cerebral infarction, unspecified; R63.5 Abnormal weight gain; I50.20 Unspecified systolic (congestive) heart failure; J43.2 Centrilobular emphysema; N18.9 Chronic kidney disease, unspecified | CPT/HCPCS: 99214 ==

== ENCOUNTER → 2022-06-11 10:32 | Outpatient (BNVA) | payer MEDICARE, MEDICAID, SELFPAY | PROVIDERS: PCP Nurse Practitioner Family; Referring Provider Nurse Practitioner Family; Visit Provider Psychiatry & Neurology Neurology | DX: I69.354 Hemiplegia and hemiparesis following cerebral infarction affecting left non-dominant side (principal); Z79.82 Long term (current) use of aspirin; Z79.02 Long term (current) use of antithrombotics/antiplatelets; I12.9 Hypertensive chronic kidney disease with stage 1 through stage 4 chronic kidney disease, or unspecified chronic kidney disease; N18.9 Chronic kidney disease, unspecified; E11.22 Type 2 diabetes mellitus with diabetic chronic kidney disease; J44.9 Chronic obstructive pulmonary disease, unspecified; I65.29 Occlusion and stenosis of unspecified carotid artery | CPT/HCPCS: 99214 ==

== ENCOUNTER 2022-06-19 16:49 | Outpatient (REF) | payer MEDICARE, MEDICAID, SELFPAY ==
[2022-06-19 18:22] LABS: Abs Immature Grans 0.03 10^3/uL (0.0-0.06); Absolute Basophil Count 0.02 10^3/uL (0.0-0.2); Absolute Eosinophil Count 0.02 10^3/uL (0.0-0.7); Absolute Lymphocyte Count 0.51 10^3/uL (1.2-3.4); Absolute Monocyte Count 0.35 10^3/uL (0.1-0.8); Absolute Neutrophil Count 6.92 10^3/uL (1.2-6.7); Basophils % 0.3; Eosinophils % 0.3; HGB 9.9 g/dL (11.2-15.7); Immature Grans % 0.4; Lymphocytes % 6.5; MCH 26.8 pg (27.0-33.0); MCHC 29.1 % (32.0-36.0); MCV 92 fL (80-95); Monocytes % 4.5; Platelet Count 238 10^3/uL (130-400); RBC 3.69 10^6/uL (3.93-5.22); RDW 14.8 % (11.7-14.6); RDW-SD 50.1 fL; WBC 7.85 10^3/uL (4.4-10.8)
[2022-06-19 18:48] LABS: BUN 39 mg/dL (7-18); CREATININE 1.7 mg/dL (0.55-1.02); Calcium 8.8 mg/dL (8.5-10.1); Chloride 99 mmol/L (98-107); Estimated GFR 29.54 (mL/min/1.73m2); Glucose 331 mg/dL (74-106); NT-proBNP 9887 pg/mL (<300); Potassium 3.9 mmol/L (3.5-5.1); Sodium 143 mmol/L (136-145)
== END 2022-06-19 16:50 | disposition home or self-care (01) ==
LOC: LBN 16:49
PROVIDERS: PCP Nurse Practitioner Family; Visit Provider Nurse Practitioner Gerontology
DX: I50.20 Unspecified systolic (congestive) heart failure (principal); N18.31 Chronic kidney disease, stage 3a; R74.8 Abnormal levels of other serum enzymes; M62.81 Muscle weakness (generalized)
CPT/HCPCS: 80048; 83880; 85025

== ENCOUNTER → 2022-06-30 10:11 | Outpatient (BNVA) | payer MEDICARE, MEDICAID, SELFPAY | PROVIDERS: PCP Nurse Practitioner Family; Visit Provider Internal Medicine Cardiovascular Disease | DX: I50.20 Unspecified systolic (congestive) heart failure (principal); J43.2 Centrilobular emphysema | CPT/HCPCS: 99214 ==

== ENCOUNTER 2022-10-12 11:25 | Inpatient (IN) | payer MEDICARE, MEDICAID, SELFPAY ==
[2022-10-12] VITALS (111 sets, daily range): BP systolic 63–134; BP diastolic 40–84; PULSE 77–138; RESP 14–37; TEMP 36.5–37.9; O2SAT 80–99
--- NOTE | 2022-10-12 11:30 | RT.EKG_ITS ---
APPROVED REPORT Exam: Resting ECG Reason for Exam: weakness,tachycardia Patient Location: E HR:98 bpm ECG Measurements Heart Rate 98 AXIS TN 133 P 82 QRSd 90 QRS 22 QT 381 T 103 QTc 487 Conclusion Sinus rhythm...normal P axis, V-rate 60- 99 Ventricular premature complex...V complex w/ short R-R interval Repol abnrm suggests ischemia, lateral leads...ST dep, T neg, I aVL V5 V6
--- NOTE | 2022-10-12 11:30 | RT.EKG_ITS ---
APPROVED REPORT Exam: Resting ECG Reason for Exam: weakness Patient Location: E HR:98 bpm ECG Measurements Heart Rate 98 AXIS OH 134 P 117 QRSd 94 QRS 122 QT 352 T 149 QTc 450 Conclusion Right and left arm electrode reversal, interpretation assumes no reversal Sinus rhythm...normal P axis, V-rate 60- 99 Inferior infarct, acute...ST>0.10mV, T upright, II III aVF motion artifact, no clear stemi
[2022-10-12 12:05] LABS: Abs Immature Grans 0.03 10^3/uL (0.0-0.06); Absolute Basophil Count 0.01 10^3/uL (0.0-0.2); Absolute Eosinophil Count 0.13 10^3/uL (0.0-0.7); Absolute Monocyte Count 1.07 10^3/uL (0.1-0.8); Absolute Neutrophil Count 7.69 10^3/uL (1.2-6.7); Basophils % 0.1; Eosinophils % 1.4; HCT 30.5 % (36.0-46.0); HGB 9.3 g/dL (11.2-15.7); Immature Grans % 0.3; Lymphocytes % 2.2; MCH 27.7 pg (27.0-33.0); MCHC 30.5 % (32.0-36.0); MCV 91 fL (80-95); MPV 10.7 fL (8.0-11.0); Monocytes % 11.7; Neutrophils % 84.3; Platelet Count 185 10^3/uL (130-400); RBC 3.36 10^6/uL (3.93-5.22); RDW 17.2 % (11.7-14.6); RDW-SD 57.4 fL; WBC 9.13 10^3/uL (4.4-10.8)
[2022-10-12 12:06] LABS: BE (Venous) 12 mmol/L (-2-3); HCO3 (Venous) 36 mmol/L (23-28); O2 Sat (Venous) 98 %; TCO2 (Venous) 34 mmol/L (24-29); pCO2 (Venous) 56 mmHg (41-51); pH (Venous) 7.42 (7.31-7.41); pO2 (Venous) 104 mmHg
[2022-10-12 12:08] LABS: Lactate 0.8 mmol/L (0.6-1.4)
[2022-10-12] MEDS: Lactated Ringers 500 ML IV (12:23)
[2022-10-12] MEDS: Acetaminophen 325 MG TAB 650 MG PO (12:24)
[2022-10-12 12:28] LABS: ALT 66 U/L (14-59); AST 50 U/L (15-37); Albumin 3.5 g/dL (3.4-5.0); Alkaline Phosphatase 38 U/L (46-116); Anion Gap 4.1 mmol/L (3-11); BUN 70 mg/dL (7-18); Bilirubin, Total 0.6 mg/dL (0.2-1.0); CO2 34.9 mmol/L (21.0-32.0); CREATININE 2.7 mg/dL (0.55-1.02); Calcium 9.1 mg/dL (8.5-10.1); Chloride 99 mmol/L (98-107); Estimated GFR 18.06 (mL/min/1.73m2); Glucose 87 mg/dL (74-106); Lipase 175 U/L (73-393); Magnesium 2.3 mg/dL (1.8-2.4); Potassium 5.1 mmol/L (3.5-5.1); Sodium 138 mmol/L (136-145); Total Protein 7.4 g/dL (6.4-8.2)
[2022-10-12] MEDS: cefTRIAXone 2 GM/50 ML BAG IVPB (12:30)
--- NOTE | 2022-10-12 12:31 | NUR.NOTE ---
Addendum entered by Bette Claudio 10/12/22 12:40: ABX INITIATED AFTER BCX2 DRAWN Original Note: Nursing Note: LAB INTO DRAW BC, ABX INITIATED AFTER BCX1 DRAWN, PROVIDER AWARE.
[2022-10-12 12:37] LABS: Troponin I 1918 ng/L (<or=60)
[2022-10-12 12:41] LABS: Influenza A PCR Negative (Negative); Influenza B PCR Negative (Negative); RSV PCR Negative (Negative)
[2022-10-12 12:53] LABS: COVID-19 PCR Positive (Negative); ESR 30 mm/hr (0-30); Source Nasopharynx
[2022-10-12 13:12] LABS: C-Reactive Protein 0.27 mg/dL (0.0-0.3); NT-proBNP 12417 pg/mL (<300)
[2022-10-12 13:26] LABS: Bilirubin Negative (Negative); Blood Trace-intact (Negative); Clarity Clear (Clear); Glucose 100 mg/dL (Negative); Ketones Negative (Negative); Leukocyte Esterase Negative (Negative); Nitrite Negative (Negative); Specific Gravity 1.015 (1.005-1.025); Urobilinogen 0.2 EU/dL (Up TO 0.2); pH 6.5 (5-8)
[2022-10-12 13:32] LABS: Bacteria Rare HPF (Negative); C & S Indicated? No; Casts 0-2 Hyaline LPF (Negative); Crystals Negative HPF (Negative); Epithelial Cells Moderate HPF (Negative); Mucus Negative (Negative); RBC 0-2 HPF (0-2); WBC Negative HPF (0-5)
[2022-10-12 13:34] LABS: D-Dimer 589 ng/mlFEU (<500)
--- NOTE | 2022-10-12 14:30 | DI.RAD_ITS ---
Exam(s) XR PORTABLE CHEST AP EXAM: XR PORTABLE CHEST AP CLINICAL HISTORY: shortness of breath TECHNIQUE: 2D digital imaging was performed of the chest. One image was obtained. An AP view was ob tained. COMPARISON: CR,XR XR PORTABLE CHEST AP from 05/09/2022 FINDINGS: MEDIASTINUM: Normal. HEART: Unchanged cardiomegaly. PULMONARY VASCULATURE: Normal. LUNGS: There has been clearing in the right lung base. There is a persistent left basilar infiltrate which may represent atelectasis or scarring. There is underlying COPD and chronic interstitial dise ase. PLEURAL SPACE: There is persistent blunting of the left costophrenic angle which may represent scarri ng or small effusion. BONE:Within normal limits for the patient's age. OTHER FINDINGS:Normal. HEART: Unchanged cardiomegaly. IMPRESSION: Overall there has been a slight improvement in the appearance of the lungs since 05/09/2022 particularl y noted in the right lung base. DATA REPOSITORY: RADIATION DOSE DELIVERED:
[2022-10-12] MEDS: REMDESIVIR 200 MG in Normal Saline 250 ML 250 MG IVPB (14:40)
--- NOTE | 2022-10-12 14:45 | RT.EKG_ITS ---
APPROVED REPORT Exam: Resting ECG Reason for Exam: weakness Patient Location: E HR:88 bpm ECG Measurements Heart Rate 88 AXIS NV 80 P 0 QRSd 98 QRS 19 QT 401 T 73 QTc 485 Conclusion Sinus rhythm...normal P axis, V-rate 60- 99 Nonspecific repol abnormality, lateral leads...ST dep, T neg, I aVL V5 V6
--- NOTE | 2022-10-12 15:18 | DI.VRAD_ITS ---
PROCEDURE INFORMATION: Exam: XR Chest Exam date and time: 10/12/2022 2:41 PM Age: 72 years old Clinical indication: Shortness of breath TECHNIQUE: Imaging protocol: Radiologic exam of the chest. Views: 1 view. Other technique: Portable exam. COMPARISON: XR PORTABLE CHEST AP 05/09/2022 10:06 PM FINDINGS: Lungs: Minimal right lower lobe atelectasis with right lung base appearances improved from prior study. Underlying COPD again noted. Left lower lobe retrocardiac opacity not significantly changed, presumed atelectasis. Pleural spaces: Left pleural effusion or thickening is probably not significantly changed from previous exam. Heart/Mediastinum: Cardiomegaly is unchanged. Vasculature: No change atherosclerotic findings in the aorta. New lines Bones/joints: Unremarkable. IMPRESSION: No significant change left pleural effusion or thickening with mild bibasilar atelectasis. Dictated and Authenticated by: Aye Staley MD. Ordering:CAMILO Crespo MD
[2022-10-12 15:40] LABS: Troponin I 3712 ng/L (<or=60)
--- NOTE | 2022-10-12 16:03 | W.ED.GENAD ---
Discharge Plan Discharge Details Chief Complaint: GenMedical Primary Care Provider: Katherine Andre ED Provider: Cherie Duarte Home Meds and New Rx's Prescriptions: No Action acetaminophen 500 mg tablet 1,000 mg PO Q6H PRN Label Comments: Max 6 tabs daily per pt cetirizine 10 mg tablet 10 mg PO DAILY Qty: 90 3RF albuterol sulfate 90 mcg/actuation HFA aerosol inhaler 2 puff inhalation Q6H PRN (Reason: shortness of breath or wheezing) Qty: 18 4RF aspirin 81 mg tablet,delayed release (DR/EC) 81 mg PO DAILY Qty: 90 3RF atorvastatin 80 mg tablet 80 mg PO QPM Qty: 90 3RF ferrous sulfate 325 mg (65 mg iron) tablet,delayed release (DR/EC) 325 mg PO DAILY Qty: 90 3RF fluticasone propionate [Flonase Allergy Relief] 50 mcg/actuation spray,suspension 2 spray intranasal DAILY PRN (Reason: allergy symptoms) Qty: 16 4RF Rx Instructions: administer into each nostril glipizide 5 mg tablet 2.5 mg PO DAILY Qty: 45 3RF Rx Instructions: Half a tablet daily Bevespi Aerosphere 9-4.8 mcg HFA aerosol inhaler 1 puff inhalation BID Qty: 10.7 4RF Hold Instructions: Has not started and does not wish to for now Rx Instructions: 1 puff twice a day insulin glargine [Lantus Solostar U-100 Insulin] 100 unit/mL (3 mL) insulin pen 30 unit subcut QAM Qty: 9 3RF insulin aspart U-100 100 unit/mL (3 mL) insulin pen 1 sliding scale dose subcut TID Qty: 9 3RF Rx Instructions: Sliding Scale Insulin Instructions 60-124 = 0 126-150 = 4 151-200 = 6 201-300 = 8 301-350 = 10 351-400 = 12 (DME) Dexcom G6 Transmitter Device See Rx Instructions .Route Qty: 1 4RF Rx Instructions: Continuous glucose monitor (DME) Dexcom G6 Unit Control Clerk Misc See Rx Instructions .Route Qty: 1 3RF Rx Instructions: Continuous glucose monitor (DME) Dexcom G6 Sensor Device See Rx Instructions .Route Qty: 3 3RF Rx Instructions: Continuous glucose monitor (DME) BD AutoShield Duo Pen Needle 30 gauge x 3/16 needle See Rx Instructions .Route Qty: 360 3RF Rx Instructions: Use with insulin pens four times a day loperamide-simethicone 2-125 mg tablet 2 tab PO Q3H PRN Rx Instructions: do not exceed 4 tabs in 24 hrs Antacid Calcium 215 mg calcium (500 mg) tablet,chewable 215 mg PO BID PRN (DME) OneTouch Ultra Test Strip See Rx Instructions .MEDSUPPLY Qty: 400 3RF Rx Instructions: Check blood sugar four times a day (DME) blood-glucose meter [ResoServTouch Ultra2 Meter] Kit See Rx Instructions .MEDSUPPLY Qty: 1 2RF Rx Instructions: Check blood sugar twice a day (DME) Aerochamber MV Spacer See Rx Instructions .ROUTE .MEDSUPPLY Qty: 2 4RF Rx Instructions: Use with inhalers Entresto 24-26 mg tablet 1 tab PO BID Qty: 90 4RF docusate sodium 100 mg capsule 100 mg PO DAILY Jardiance 10 mg tablet 10 mg PO DAILY Qty: 90 3RF gabapentin 300 mg capsule 300 mg PO QHS Qty: 90 3RF spironolactone 25 mg tablet 25 mg PO DAILY Qty: 90 3RF cholecalciferol (vitamin D3) 25 mcg (1,000 unit) capsule 25 mcg PO DAILY Qty: 90 3RF (DME) lancets [OneTouch Delica Plus Lancet] 33 gauge misc See Rx Instructions .MEDSUPPLY Qty: 300 3RF Rx Instructions: Check blood sugar four times daily torsemide 20 mg tablet 20 mg PO BID Qty: 180 3RF cholecalciferol (vitamin D3) [Vitamin D3] 25 mcg (1,000 unit) Capsule 25 mcg PO DAILY omeprazole 20 mg capsule,delayed release(DR/EC) 20 mg PO BID prednisone 5 mg Tablet 15 mg PO DAILY Medical Decision Making Patient presents secondary to weakness, medical history consistent with chronic kidney disease, CVA, insulin-dependent diabetes, COPD with report of frequent falls secondary to weakness Patient describes the weakness as being generalized in nature Upon arrival she had febrile, and mild hypotension, given fluids and T lines placed, denies any pain complaints Denies any traumatic injuries of fall or loss of consciousness COVID-positive, initial elevated troponin of 1900, baseline is elevated in the 90s typically Creatinine elevated but appears within normal range for patient of 2.7 D-dimer 568 CBC baseline for patient BNP of 12,000, not grossly changed from prior, mild transaminitis likely consistent with COVID-19 In suspect non-STEMI/myocarditis induced by COVID-19 Again patient denies any chest pain, EKG x2 within normal limits Repeat troponin level increases to 3172 Case discussed with cardiology, Dr. Barron at [facility], recommends heparin and aspirin at this time Recommends admission Does not recommend emergent catheterization and patient denies cardiac catheterization and is DNR/DNI status Blood pressure is stable, fully alert and oriented Will need admission to the hospital for further observation and monitoring Heparin bolus initiated, aspirin initiated Case discussed with hospitalist, they have decided to hold on admitting orders for patient until an intensive care unit bed opens, she will board in the emergency department pending ICU bed at this time She is hemodynamically stable and Patricia Almanza is made aware, she will accept care of this patient at this time Medical Records Medical records reviewed: Yes I reviewed the patient's medical records. HPI General Date/Time Provider Initiated Documentation: 10/12/22 11:37. HPI Narrative: This 72-year-old female with history of diabetes, chronic kidney disease, hypertension CHF presents with report of weakness, has fallen twice in the past 24 hours. States last evening she was quite weak and unable to get up, she stayed on the couch all night. Denies any chest pain, shortness of breath. States she feels generally weak. Denies any cough or known fever. She has had some chills per patient. Denies any known sick contacts. Denies any nausea or vomiting. Denies any head injury or loss of consciousness. Related Data Home Medications Medication Instructions Recorded Confirmed blood-glucose meter (OneTouch #1 ea 11/26/20 08/28/22 Ultra2 Meter kit) cholecalciferol (vitamin D3) 25 25 mcg PO DAILY 08/30/21 10/12/22 mcg (1,000 unit) capsule (Vitamin D3) acetaminophen 500 mg tablet 1,000 mg PO Q6H PRN 12/23/21 08/28/22 inhalational spacing device #2 ea 12/25/21 08/28/22 (Aerochamber MV spacer) sacubitril 24 mg-valsartan 26 mg 1 tab PO BID #90 tabs 03/17/22 10/12/22 tablet (Entresto) calcium carbonate 215 mg calcium 215 mg PO BID PRN 06/11/22 08/28/22 (500 mg) chewable tablet (Antacid Calcium) loperamide-simethicone 2 mg-125 mg 2 tab PO Q3H PRN 06/11/22 08/28/22 tablet docusate sodium 100 mg capsule 100 mg PO DAILY 07/10/22 10/12/22 albuterol sulfate 90 mcg/actuation 2 puff inhalation Q6H PRN 07/11/22 08/28/22 aerosol inhaler shortness of breath or wheezing #18 grams aspirin 81 mg tablet,delayed 81 mg PO DAILY #90 tabs 07/11/22 10/12/22 release atorvastatin 80 mg tablet 80 mg PO QPM #90 tabs 07/11/22 10/12/22 blood-glucose meter,continuous #1 ea 07/11/22 08/28/22 (Dexcom G6 Unit Control Clerk misc) blood-glucose sensor (Dexcom G6 #3 ea 07/11/22 08/28/22 Sensor device) blood-glucose transmitter (Dexcom #1 ea 07/11/22 08/28/22 G6 Transmitter device) cetirizine 10 mg tablet 10 mg PO DAILY #90 tab-caps 07/11/22 10/12/22 empagliflozin 10 mg tablet 10 mg PO DAILY #90 tabs 07/11/22 10/12/22 ferrous sulfate 325 mg (65 mg 325 mg PO DAILY #90 tabs 07/11/22 08/28/22 iron) tablet,delayed release fluticasone propionate 50 2 spray intranasal DAILY PRN 07/11/22 08/28/22 mcg/actuation nasal allergy symptoms #16 grams spray,suspension (Flonase Allergy Relief) glipizide 5 mg tablet 2.5 mg PO DAILY #45 tabs 07/11/22 10/12/22 glycopyrrolate 9 mcg-formoterol 1 puff inhalation BID #10.7 grams 07/11/22 08/28/22 4.8 mcg HFA aerosol inhaler (Bevespi Aerosphere) insulin aspart U-100 100 unit/mL 1 sliding scale dose subcut TID #9 07/11/22 08/28/22 (3 mL) subcutaneous pen SYRGS insulin glargine 100 unit/mL (3 30 unit (0.3 mL) subcut QAM #9 07/11/22 10/12/22 mL) subcutaneous pen (Lantus SYRGS Solostar U-100 Insulin) pen needle,diabetic dual safty 30 #360 ea 07/11/22 08/28/22 gauge x 3/16 (BD AutoShield Duo Pen Needle) gabapentin 300 mg capsule 300 mg PO QHS #90 caps 07/16/22 10/12/22 spironolactone 25 mg tablet 25 mg PO DAILY #90 tabs 07/16/22 10/12/22 cholecalciferol (vitamin D3) 25 25 mcg PO DAILY #90 caps 07/17/22 08/28/22 mcg (1,000 unit) capsule blood sugar diagnostic (VasSoluch #400 ea 08/11/22 08/28/22 Ultra Test strips) lancets 33 gauge (ResoServTouch Delica #300 ea 08/12/22 08/28/22 Plus Lancet) torsemide 20 mg tablet 20 mg PO BID #180 tabs 09/09/22 10/12/22 omeprazole 20 mg capsule,delayed 20 mg PO BID 10/12/22 10/12/22 release prednisone 5 mg tablet 15 mg PO DAILY 10/12/22 10/12/22 Previous Rx's Medication Instructions Recorded blood-glucose meter (VasSoluch #1 ea 11/26/20 Ultra2 Meter kit) inhalational spacing device #2 ea 12/25/21 (Aerochamber MV spacer) sacubitril 24 mg-valsartan 26 mg 1 tab PO BID #90 tabs 03/17/22 tablet (Entresto) albuterol sulfate 90 mcg/actuation 2 puff inhalation Q6H PRN 07/11/22 aerosol inhaler shortness of breath or wheezing #18 grams aspirin 81 mg tablet,delayed 81 mg PO DAILY #90 tabs 07/11/22 release atorvastatin 80 mg tablet 80 mg PO QPM #90 tabs 07/11/22 blood-glucose meter,continuous #1 ea 07/11/22 (Dexcom G6 Unit Control Clerk misc) blood-glucose sensor (Dexcom G6 #3 ea 07/11/22 Sensor device) blood-glucose transmitter (Dexcom #1 ea 07/11/22 G6 Transmitter device) cetirizine 10 mg tablet 10 mg PO DAILY #90 tab-caps 07/11/22 empagliflozin 10 mg tablet 10 mg PO DAILY #90 tabs 07/11/22 ferrous sulfate 325 mg (65 mg 325 mg PO DAILY #90 tabs 07/11/22 iron) tablet,delayed release fluticasone propionate 50 2 spray intranasal DAILY PRN 07/11/22 mcg/actuation nasal allergy symptoms #16 grams spray,suspension (Flonase Allergy Relief) glipizide 5 mg tablet 2.5 mg PO DAILY #45 tabs 07/11/22 glycopyrrolate 9 mcg-formoterol 1 puff inhalation BID #10.7 grams 07/11/22 4.8 mcg HFA aerosol inhaler (Bevespi Aerosphere) insulin aspart U-100 100 unit/mL 1 sliding scale dose subcut TID #9 07/11/22 (3 mL) subcutaneous pen SYRGS insulin glargine 100 unit/mL (3 30 unit (0.3 mL) subcut QAM #9 07/11/22 mL) subcutaneous pen (Lantus SYRGS Solostar U-100 Insulin) pen needle,diabetic dual safty 30 #360 ea 07/11/22 gauge x 3/16 (BD AutoShield Duo Pen Needle) gabapentin 300 mg capsule 300 mg PO QHS #90 caps 07/16/22 spironolactone 25 mg tablet 25 mg PO DAILY #90 tabs 07/16/22 cholecalciferol (vitamin D3) 25 25 mcg PO DAILY #90 caps 07/17/22 mcg (1,000 unit) capsule blood sugar diagnostic (OneTouch #400 ea 08/11/22 Ultra Test strips) lancets 33 gauge (OneTouch Delica #300 ea 08/12/22 Plus Lancet) torsemide 20 mg tablet 20 mg PO BID #180 tabs 09/09/22 Allergies Allergy/AdvReac Type Severity Reaction Status Date / Time codeine AdvReac Severe Cardiac Verified 08/28/22 14:02 Dysrythmia indomethacin AdvReac Intermediate Cardiac Verified 08/28/22 14:02 Dysrythmia lisinopril AdvReac cough Verified 08/28/22 14:02 General Stated Complaint: GenMedical BELKIS: 2 Review of Systems All systems reviewed & are unremarkable except as noted in HPI and below PFSH All Active Problems (Updated 08/11/22 @ 12:33 by Katherine Andre NP) CKD (chronic kidney disease) stage 3, GFR 30-59 ml/min (Chronic) Type 2 diabetes mellitus with retinopathy of both eyes, with long-term current use of insulin (Chronic) CVA (cerebral vascular accident) (Acute ~12/2021) Heart failure with reduced ejection fraction (Chronic) Chronic obstructive pulmonary disease (Chronic) 09/2021- O2 dependent on 2 l/min (O2 sat at 83% RA) Polymyalgia rheumatica (Chronic) Carotid atherosclerosis (Chronic) Essential hypertension (Chronic) GERD (gastroesophageal reflux disease) (Chronic) Pulmonary nodule (Chronic) Nicotine dependence, cigarettes, uncomplicated (Chronic) Annual LDCT Osteoarthritis of hips, bilateral (Chronic) Diabetic nephropathy (Chronic) Diabetic retinopathy (Chronic) Ventral hernia (Chronic) Generalized anxiety disorder (Chronic) Benign positional vertigo (Chronic) 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 Father Diabetes Daughter No problems noted. Daughter No problems noted. Daughter No problems noted. Daughter No problems noted. 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 4 daughters Exam Const General: cooperative, comfortable and no acute distress HENMT Mouth: oral mucosae normal Eyes Pupils: PERRL Neck Other: no midline tenderness Resp Effort & Inspection: normal respiratory effort Auscultation: clear to auscultation bilaterally Cardio Rate: regular rate Rhythm: regular rhythm GI Inspection: normal to inspection Skin General skin exam: no rashes or lesions noted Neuro General: patient alert and patient oriented x3 Extrem Other: This pulses intact, no peripheral edema Course Vital Signs Vital signs: Vital Signs Temperature 37.9 C H 10/12/22 11:27 Pulse 102 H 10/12/22 11:27 Blood Pressure 96/60 L 10/12/22 11:27 Pulse Oximetry 95 10/12/22 11:27 Temperature 37.9 C H 10/12/22 11:27 Temperature Source Oral 10/12/22 11:27 Pulse 88 10/12/22 14:46 Pulse 93 H 10/12/22 13:00 Respiratory Rate 26 H 10/12/22 13:00 Respiratory Effort Non-Labored 10/12/22 12:33 Respiratory Pattern Normal 10/12/22 12:33 Blood Pressure 96/51 L 10/12/22 14:46 Blood Pressure Mean 62 10/12/22 14:46 Blood Pressure Position Sitting 10/12/22 11:27 Pulse Oximetry 93 10/12/22 14:46 Oxygen Delivery Method Nasal Cannula 10/12/22 11:27 Oxygen Flow Rate 2 10/12/22 11:27 Pain Level 0 10/12/22 11:27 Comment 10/12/22 11:27 Lab/Test Results Lab/Test Results: 10/12/22 12:42 Blood Blood Culture - Pending 10/12/22 12:32 Blood Blood Culture - Pending Laboratory Tests Range/Units 10/12/22 10/12/22 10/12/22 11:55 11:55 11:55 WBC (4.4-10.8) 10^3/uL RBC (3.93-5.22) 10^6/uL Hgb (11.2-15.7) g/dL Hct (36.0-46.0) % MCV (80-95) fL MCH (27.0-33.0) pg MCHC (32.0-36.0) % RDW (11.7-14.6) % Plt Count (130-400) 10^3/uL MPV (8.0-11.0) fL Immature Gran % Neutrophils % Lymphocytes % Monocytes % Eosinophils % Basophils % Nucleated RBC % (0.0-0.3) % Absolute Neutrophils (1.2-6.7) 10^3/uL Absolute Lymphocytes (1.2-3.4) 10^3/uL Absolute Monocytes (0.1-0.8) 10^3/uL Absolute Eosinophils (0.0-0.7) 10^3/uL Absolute Basophils (0.0-0.2) 10^3/uL ESR (0-30) mm/hr D-Dimer (<500) ng/mlFEU VBG pH (7.31-7.41) 7.42 H VBG pCO2 (41-51) mmHg 56 H VBG pO2 mmHg 104 VBG HCO3 (23-28) mmol/L 36 H VBG Total CO2 (24-29) mmol/L 34 H VBG O2 Saturation % 98 VBG Base Excess (-2-3) mmol/L 12 H VBG Lactate (0.6-1.4) mmol/L 0.8 Sodium (136-145) mmol/L Potassium (3.5-5.1) mmol/L Chloride (98-107) mmol/L Carbon Dioxide (21.0-32.0) mmol/L Anion Gap (3-11) mmol/L BUN (7-18) mg/dL Creatinine (0.55-1.02) mg/dL Est GFR (CKD-EPI 2020) (mL/min/1.73m2) Glucose (74-106) mg/dL Calcium (8.5-10.1) mg/dL Magnesium (1.8-2.4) mg/dL Total Bilirubin (0.2-1.0) mg/dL AST (15-37) U/L ALT (14-59) U/L Alkaline Phosphatase (46-116) U/L Troponin I (<or=60) ng/L C-Reactive Protein (0.0-0.3) mg/dL NT-Pro-B Natriuret Pep (<300) pg/mL Total Protein (6.4-8.2) g/dL Albumin (3.4-5.0) g/dL Lipase (73-393) U/L Urine Color (Yellow) Urine Clarity (Clear) Urine pH (5-8) Ur Specific [place] (1.005-1.025) Urine Protein (Negative) mg/dL Urine Ketones (Negative) mg/dL Urine Blood (Negative) Urine Nitrite (Negative) Urine Bilirubin (Negative) Urine Urobilinogen (Up TO 0.2) EU/dL Ur Leukocyte Esterase (Negative) Urine RBC (0-2) HPF Urine WBC (0-5) HPF Ur Epithelial Cells (Negative) HPF Urine Crystals (Negative) HPF Urine Bacteria (Negative) HPF Urine Casts (Negative) LPF Urine Mucus (Negative) Ur Culture Indicated? Urine Glucose (Negative) mg/dL COVID-19 Source Nasopharynx SARS-CoV-2 (PCR) (Negative) Positive A Influenza Type A (PCR) (Negative) Negative Influenza Type B (PCR) (Negative) Negative RSV (PCR) (Negative) Negative Range/Units 10/12/22 10/12/22 10/12/22 11:55 11:55 11:55 WBC (4.4-10.8) 10^3/uL 9.13 RBC (3.93-5.22) 10^6/uL 3.36 L Hgb (11.2-15.7) g/dL 9.3 L Hct (36.0-46.0) % 30.5 L MCV (80-95) fL 91 MCH (27.0-33.0) pg 27.7 MCHC (32.0-36.0) % 30.5 L RDW (11.7-14.6) % 17.2 H Plt Count (130-400) 10^3/uL 185 MPV (8.0-11.0) fL 10.7 Immature Gran % 0.3 Neutrophils % 84.3 Lymphocytes % 2.2 Monocytes % 11.7 Eosinophils % 1.4 Basophils % 0.1 Nucleated RBC % (0.0-0.3) % 0.0 Absolute Neutrophils (1.2-6.7) 10^3/uL 7.69 H Absolute Lymphocytes (1.2-3.4) 10^3/uL 0.20 L Absolute Monocytes (0.1-0.8) 10^3/uL 1.07 H Absolute Eosinophils (0.0-0.7) 10^3/uL 0.13 Absolute Basophils (0.0-0.2) 10^3/uL 0.01 ESR (0-30) mm/hr D-Dimer (<500) ng/mlFEU VBG pH (7.31-7.41) VBG pCO2 (41-51) mmHg VBG pO2 mmHg VBG HCO3 (23-28) mmol/L VBG Total CO2 (24-29) mmol/L VBG O2 Saturation % VBG Base Excess (-2-3) mmol/L VBG Lactate (0.6-1.4) mmol/L Sodium (136-145) mmol/L 138 Potassium (3.5-5.1) mmol/L 5.1 Chloride (98-107) mmol/L 99 Carbon Dioxide (21.0-32.0) mmol/L 34.9 H Anion Gap (3-11) mmol/L 4.1 BUN (7-18) mg/dL 70 H Creatinine (0.55-1.02) mg/dL 2.7 H Est GFR (CKD-EPI 2020) (mL/min/1.73m2) 18.06 Glucose (74-106) mg/dL 87 Calcium (8.5-10.1) mg/dL 9.1 Magnesium (1.8-2.4) mg/dL 2.3 Total Bilirubin (0.2-1.0) mg/dL 0.6 AST (15-37) U/L 50 H ALT (14-59) U/L 66 H Alkaline Phosphatase (46-116) U/L 38 L Troponin I (<or=60) ng/L 1918 H* C-Reactive Protein (0.0-0.3) mg/dL 0.27 NT-Pro-B Natriuret Pep (<300) pg/mL 12421 H Total Protein (6.4-8.2) g/dL 7.4 Albumin (3.4-5.0) g/dL 3.5 Lipase (73-393) U/L 175 Urine Color (Yellow) Urine Clarity (Clear) Urine pH (5-8) Ur Specific [place] (1.005-1.025) Urine Protein (Negative) mg/dL Urine Ketones (Negative) mg/dL Urine Blood (Negative) Urine Nitrite (Negative) Urine Bilirubin (Negative) Urine Urobilinogen (Up TO 0.2) EU/dL Ur Leukocyte Esterase (Negative) Urine RBC (0-2) HPF Urine WBC (0-5) HPF Ur Epithelial Cells (Negative) HPF Urine Crystals (Negative) HPF Urine Bacteria (Negative) HPF Urine Casts (Negative) LPF Urine Mucus (Negative) Ur Culture Indicated? Urine Glucose (Negative) mg/dL COVID-19 Source SARS-CoV-2 (PCR) (Negative) Influenza Type A (PCR) (Negative) Influenza Type B (PCR) (Negative) RSV (PCR) (Negative) Range/Units 10/12/22 10/12/22 10/12/22 11:55 12:44 13:00 WBC (4.4-10.8) 10^3/uL RBC (3.93-5.22) 10^6/uL Hgb (11.2-15.7) g/dL Hct (36.0-46.0) % MCV (80-95) fL MCH (27.0-33.0) pg MCHC (32.0-36.0) % RDW (11.7-14.6) % Plt Count (130-400) 10^3/uL MPV (8.0-11.0) fL Immature Gran % Neutrophils % Lymphocytes % Monocytes % Eosinophils % Basophils % Nucleated RBC % (0.0-0.3) % Absolute Neutrophils (1.2-6.7) 10^3/uL Absolute Lymphocytes (1.2-3.4) 10^3/uL Absolute Monocytes (0.1-0.8) 10^3/uL Absolute Eosinophils (0.0-0.7) 10^3/uL Absolute Basophils (0.0-0.2) 10^3/uL ESR (0-30) mm/hr 30 D-Dimer (<500) ng/mlFEU 589 H VBG pH (7.31-7.41) VBG pCO2 (41-51) mmHg VBG pO2 mmHg VBG HCO3 (23-28) mmol/L VBG Total CO2 (24-29) mmol/L VBG O2 Saturation % VBG Base Excess (-2-3) mmol/L VBG Lactate (0.6-1.4) mmol/L Sodium (136-145) mmol/L Potassium (3.5-5.1) mmol/L Chloride (98-107) mmol/L Carbon Dioxide (21.0-32.0) mmol/L Anion Gap (3-11) mmol/L BUN (7-18) mg/dL Creatinine (0.55-1.02) mg/dL Est GFR (CKD-EPI 2020) (mL/min/1.73m2) Glucose (74-106) mg/dL Calcium (8.5-10.1) mg/dL Magnesium (1.8-2.4) mg/dL Total Bilirubin (0.2-1.0) mg/dL AST (15-37) U/L ALT (14-59) U/L Alkaline Phosphatase (46-116) U/L Troponin I (<or=60) ng/L C-Reactive Protein (0.0-0.3) mg/dL NT-Pro-B Natriuret Pep (<300) pg/mL Cancelled Total Protein (6.4-8.2) g/dL Albumin (3.4-5.0) g/dL Lipase (73-393) U/L Urine Color (Yellow) Urine Clarity (Clear) Urine pH (5-8) Ur Specific [place] (1.005-1.025) Urine Protein (Negative) mg/dL Urine Ketones (Negative) mg/dL Urine Blood (Negative) Urine Nitrite (Negative) Urine Bilirubin (Negative) Urine Urobilinogen (Up TO 0.2) EU/dL Ur Leukocyte Esterase (Negative) Urine RBC (0-2) HPF Urine WBC (0-5) HPF Ur Epithelial Cells (Negative) HPF Urine Crystals (Negative) HPF Urine Bacteria (Negative) HPF Urine Casts (Negative) LPF Urine Mucus (Negative) Ur Culture Indicated? Urine Glucose (Negative) mg/dL COVID-19 Source SARS-CoV-2 (PCR) (Negative) Influenza Type A (PCR) (Negative) Influenza Type B (PCR) (Negative) RSV (PCR) (Negative) Range/Units 10/12/22 10/12/22 13:20 15:13 WBC (4.4-10.8) 10^3/uL RBC (3.93-5.22) 10^6/uL Hgb (11.2-15.7) g/dL Hct (36.0-46.0) % MCV (80-95) fL MCH (27.0-33.0) pg MCHC (32.0-36.0) % RDW (11.7-14.6) % Plt Count (130-400) 10^3/uL MPV (8.0-11.0) fL Immature Gran % Neutrophils % Lymphocytes % Monocytes % Eosinophils % Basophils % Nucleated RBC % (0.0-0.3) % Absolute Neutrophils (1.2-6.7) 10^3/uL Absolute Lymphocytes (1.2-3.4) 10^3/uL Absolute Monocytes (0.1-0.8) 10^3/uL Absolute Eosinophils (0.0-0.7) 10^3/uL Absolute Basophils (0.0-0.2) 10^3/uL ESR (0-30) mm/hr D-Dimer (<500) ng/mlFEU VBG pH (7.31-7.41) VBG pCO2 (41-51) mmHg VBG pO2 mmHg VBG HCO3 (23-28) mmol/L VBG Total CO2 (24-29) mmol/L VBG O2 Saturation % VBG Base Excess (-2-3) mmol/L VBG Lactate (0.6-1.4) mmol/L Sodium (136-145) mmol/L Potassium (3.5-5.1) mmol/L Chloride (98-107) mmol/L Carbon Dioxide (21.0-32.0) mmol/L Anion Gap (3-11) mmol/L BUN (7-18) mg/dL Creatinine (0.55-1.02) mg/dL Est GFR (CKD-EPI 2020) (mL/min/1.73m2) Glucose (74-106) mg/dL Calcium (8.5-10.1) mg/dL Magnesium (1.8-2.4) mg/dL Total Bilirubin (0.2-1.0) mg/dL AST (15-37) U/L ALT (14-59) U/L Alkaline Phosphatase (46-116) U/L Troponin I (<or=60) ng/L 3712 H* C-Reactive Protein (0.0-0.3) mg/dL NT-Pro-B Natriuret Pep (<300) pg/mL Total Protein (6.4-8.2) g/dL Albumin (3.4-5.0) g/dL Lipase (73-393) U/L Urine Color (Yellow) Yellow Urine Clarity (Clear) Clear Urine pH (5-8) 6.5 Ur Specific [place] (1.005-1.025) 1.015 Urine Protein (Negative) mg/dL 30 H Urine Ketones (Negative) mg/dL Negative Urine Blood (Negative) Trace-intact H Urine Nitrite (Negative) Negative Urine Bilirubin (Negative) Negative Urine Urobilinogen (Up TO 0.2) EU/dL 0.2 Ur Leukocyte Esterase (Negative) Negative Urine RBC (0-2) HPF 0-2 Urine WBC (0-5) HPF Negative Ur Epithelial Cells (Negative) HPF Moderate Urine Crystals (Negative) HPF Negative Urine Bacteria (Negative) HPF Rare Urine Casts (Negative) LPF 0-2 Hyaline Urine Mucus (Negative) Negative Ur Culture Indicated? No Urine Glucose (Negative) mg/dL 100 COVID-19 Source SARS-CoV-2 (PCR) (Negative) Influenza Type A (PCR) (Negative) Influenza Type B (PCR) (Negative) RSV (PCR) (Negative) Sign Out Sign Out Data: Sign Out Comment: pending admission to ICU Last updated by Cherie Duarte PA at 10/12/22 16:38
--- NOTE | 2022-10-12 17:44 | W.EDPROG ---
Date of service: 10/12/22 Time of Service: 17:44 Medical Decision Making 1630: Care assumed from provider (ABI Ly) Please see their initial HPI, PE, and documentation. Discussed patient details and case and pending workup and disposition. Upon signout pending possible most likely ICU admission, in short patient presents secondary to generalized weakness after experiencing somewhat low blood sugars last night per documentation coordinator. Patient is COVID-positive has some elevated troponins which has doubled from 1918-30 712, her proBNP is elevated at 12,417 which is up from 9000 she does take torsemide. 20 mg twice daily. Patient has a past medical history of chronic kidney disease, type 2 diabetes mellitus, CVA, heart failure with ejection fraction of 45 to 50%, COPD, GERD Patient is febrile with a temp of 37.9, creatinine is up to 2.7 from 1.7, slightly elevated transaminases. Patient has received remdesivir 200 mg IV, Heparin drip ordered, has received Tylenol, 500 mL of LR, a third troponin ordered. Will discuss patient's case with hospitalist again pending repeat troponin level.. 1820: On patient reevaluation she is sitting up eating a food tray, she reports no chest pain she reports no strain on her heart. Heparin drip has not been started yet, I did order PT PTT to facilitate this. Hospitalist paged. 1840: Spoke with Dr. Jorge with hospitalist regarding patient case and details, he agrees to accept patient for admission for NSTEMI and COVID-positive. Third troponin has resulted and is elevated at 4184. Patient continues to deny having chest pain. Plan is to admit patient to ICU. Medical Records Medical records reviewed: Yes I reviewed the patient's medical records. Lab Data Lab results reviewed: Yes I reviewed the patient's lab results. Labs: 10/12/22 12:42 Blood Blood Culture - Pending 10/12/22 12:32 Blood Blood Culture - Pending Laboratory Tests Range/Units 10/12/22 10/12/22 10/12/22 11:55 11:55 11:55 WBC (4.4-10.8) 10^3/uL RBC (3.93-5.22) 10^6/uL Hgb (11.2-15.7) g/dL Hct (36.0-46.0) % MCV (80-95) fL MCH (27.0-33.0) pg MCHC (32.0-36.0) % RDW (11.7-14.6) % Plt Count (130-400) 10^3/uL MPV (8.0-11.0) fL Immature Gran % Neutrophils % Lymphocytes % Monocytes % Eosinophils % Basophils % Nucleated RBC % (0.0-0.3) % Absolute Neutrophils (1.2-6.7) 10^3/uL Absolute Lymphocytes (1.2-3.4) 10^3/uL Absolute Monocytes (0.1-0.8) 10^3/uL Absolute Eosinophils (0.0-0.7) 10^3/uL Absolute Basophils (0.0-0.2) 10^3/uL ESR (0-30) mm/hr D-Dimer (<500) ng/mlFEU VBG pH (7.31-7.41) 7.42 H VBG pCO2 (41-51) mmHg 56 H VBG pO2 mmHg 104 VBG HCO3 (23-28) mmol/L 36 H VBG Total CO2 (24-29) mmol/L 34 H VBG O2 Saturation % 98 VBG Base Excess (-2-3) mmol/L 12 H VBG Lactate (0.6-1.4) mmol/L 0.8 Sodium (136-145) mmol/L Potassium (3.5-5.1) mmol/L Chloride (98-107) mmol/L Carbon Dioxide (21.0-32.0) mmol/L Anion Gap (3-11) mmol/L BUN (7-18) mg/dL Creatinine (0.55-1.02) mg/dL Est GFR (CKD-EPI 2020) (mL/min/1.73m2) Glucose (74-106) mg/dL Calcium (8.5-10.1) mg/dL Magnesium (1.8-2.4) mg/dL Total Bilirubin (0.2-1.0) mg/dL AST (15-37) U/L ALT (14-59) U/L Alkaline Phosphatase (46-116) U/L Troponin I (<or=60) ng/L C-Reactive Protein (0.0-0.3) mg/dL NT-Pro-B Natriuret Pep (<300) pg/mL Total Protein (6.4-8.2) g/dL Albumin (3.4-5.0) g/dL Lipase (73-393) U/L Urine Color (Yellow) Urine Clarity (Clear) Urine pH (5-8) Ur Specific Elkins (1.005-1.025) Urine Protein (Negative) mg/dL Urine Ketones (Negative) mg/dL Urine Blood (Negative) Urine Nitrite (Negative) Urine Bilirubin (Negative) Urine Urobilinogen (Up TO 0.2) EU/dL Ur Leukocyte Esterase (Negative) Urine RBC (0-2) HPF Urine WBC (0-5) HPF Ur Epithelial Cells (Negative) HPF Urine Crystals (Negative) HPF Urine Bacteria (Negative) HPF Urine Casts (Negative) LPF Urine Mucus (Negative) Ur Culture Indicated? Urine Glucose (Negative) mg/dL COVID-19 Source Nasopharynx SARS-CoV-2 (PCR) (Negative) Positive A Influenza Type A (PCR) (Negative) Negative Influenza Type B (PCR) (Negative) Negative RSV (PCR) (Negative) Negative Range/Units 10/12/22 10/12/22 10/12/22 11:55 11:55 11:55 WBC (4.4-10.8) 10^3/uL 9.13 RBC (3.93-5.22) 10^6/uL 3.36 L Hgb (11.2-15.7) g/dL 9.3 L Hct (36.0-46.0) % 30.5 L MCV (80-95) fL 91 MCH (27.0-33.0) pg 27.7 MCHC (32.0-36.0) % 30.5 L RDW (11.7-14.6) % 17.2 H Plt Count (130-400) 10^3/uL 185 MPV (8.0-11.0) fL 10.7 Immature Gran % 0.3 Neutrophils % 84.3 Lymphocytes % 2.2 Monocytes % 11.7 Eosinophils % 1.4 Basophils % 0.1 Nucleated RBC % (0.0-0.3) % 0.0 Absolute Neutrophils (1.2-6.7) 10^3/uL 7.69 H Absolute Lymphocytes (1.2-3.4) 10^3/uL 0.20 L Absolute Monocytes (0.1-0.8) 10^3/uL 1.07 H Absolute Eosinophils (0.0-0.7) 10^3/uL 0.13 Absolute Basophils (0.0-0.2) 10^3/uL 0.01 ESR (0-30) mm/hr D-Dimer (<500) ng/mlFEU VBG pH (7.31-7.41) VBG pCO2 (41-51) mmHg VBG pO2 mmHg VBG HCO3 (23-28) mmol/L VBG Total CO2 (24-29) mmol/L VBG O2 Saturation % VBG Base Excess (-2-3) mmol/L VBG Lactate (0.6-1.4) mmol/L Sodium (136-145) mmol/L 138 Potassium (3.5-5.1) mmol/L 5.1 Chloride (98-107) mmol/L 99 Carbon Dioxide (21.0-32.0) mmol/L 34.9 H Anion Gap (3-11) mmol/L 4.1 BUN (7-18) mg/dL 70 H Creatinine (0.55-1.02) mg/dL 2.7 H Est GFR (CKD-EPI 2020) (mL/min/1.73m2) 18.06 Glucose (74-106) mg/dL 87 Calcium (8.5-10.1) mg/dL 9.1 Magnesium (1.8-2.4) mg/dL 2.3 Total Bilirubin (0.2-1.0) mg/dL 0.6 AST (15-37) U/L 50 H ALT (14-59) U/L 66 H Alkaline Phosphatase (46-116) U/L 38 L Troponin I (<or=60) ng/L 1918 H* C-Reactive Protein (0.0-0.3) mg/dL 0.27 NT-Pro-B Natriuret Pep (<300) pg/mL 47973 H Total Protein (6.4-8.2) g/dL 7.4 Albumin (3.4-5.0) g/dL 3.5 Lipase (73-393) U/L 175 Urine Color (Yellow) Urine Clarity (Clear) Urine pH (5-8) Ur Specific Elkins (1.005-1.025) Urine Protein (Negative) mg/dL Urine Ketones (Negative) mg/dL Urine Blood (Negative) Urine Nitrite (Negative) Urine Bilirubin (Negative) Urine Urobilinogen (Up TO 0.2) EU/dL Ur Leukocyte Esterase (Negative) Urine RBC (0-2) HPF Urine WBC (0-5) HPF Ur Epithelial Cells (Negative) HPF Urine Crystals (Negative) HPF Urine Bacteria (Negative) HPF Urine Casts (Negative) LPF Urine Mucus (Negative) Ur Culture Indicated? Urine Glucose (Negative) mg/dL COVID-19 Source SARS-CoV-2 (PCR) (Negative) Influenza Type A (PCR) (Negative) Influenza Type B (PCR) (Negative) RSV (PCR) (Negative) Range/Units 10/12/22 10/12/22 10/12/22 11:55 12:44 13:00 WBC (4.4-10.8) 10^3/uL RBC (3.93-5.22) 10^6/uL Hgb (11.2-15.7) g/dL Hct (36.0-46.0) % MCV (80-95) fL MCH (27.0-33.0) pg MCHC (32.0-36.0) % RDW (11.7-14.6) % Plt Count (130-400) 10^3/uL MPV (8.0-11.0) fL Immature Gran % Neutrophils % Lymphocytes % Monocytes % Eosinophils % Basophils % Nucleated RBC % (0.0-0.3) % Absolute Neutrophils (1.2-6.7) 10^3/uL Absolute Lymphocytes (1.2-3.4) 10^3/uL Absolute Monocytes (0.1-0.8) 10^3/uL Absolute Eosinophils (0.0-0.7) 10^3/uL Absolute Basophils (0.0-0.2) 10^3/uL ESR (0-30) mm/hr 30 D-Dimer (<500) ng/mlFEU 589 H VBG pH (7.31-7.41) VBG pCO2 (41-51) mmHg VBG pO2 mmHg VBG HCO3 (23-28) mmol/L VBG Total CO2 (24-29) mmol/L VBG O2 Saturation % VBG Base Excess (-2-3) mmol/L VBG Lactate (0.6-1.4) mmol/L Sodium (136-145) mmol/L Potassium (3.5-5.1) mmol/L Chloride (98-107) mmol/L Carbon Dioxide (21.0-32.0) mmol/L Anion Gap (3-11) mmol/L BUN (7-18) mg/dL Creatinine (0.55-1.02) mg/dL Est GFR (CKD-EPI 2020) (mL/min/1.73m2) Glucose (74-106) mg/dL Calcium (8.5-10.1) mg/dL Magnesium (1.8-2.4) mg/dL Total Bilirubin (0.2-1.0) mg/dL AST (15-37) U/L ALT (14-59) U/L Alkaline Phosphatase (46-116) U/L Troponin I (<or=60) ng/L C-Reactive Protein (0.0-0.3) mg/dL NT-Pro-B Natriuret Pep (<300) pg/mL Cancelled Total Protein (6.4-8.2) g/dL Albumin (3.4-5.0) g/dL Lipase (73-393) U/L Urine Color (Yellow) Urine Clarity (Clear) Urine pH (5-8) Ur Specific Elkins (1.005-1.025) Urine Protein (Negative) mg/dL Urine Ketones (Negative) mg/dL Urine Blood (Negative) Urine Nitrite (Negative) Urine Bilirubin (Negative) Urine Urobilinogen (Up TO 0.2) EU/dL Ur Leukocyte Esterase (Negative) Urine RBC (0-2) HPF Urine WBC (0-5) HPF Ur Epithelial Cells (Negative) HPF Urine Crystals (Negative) HPF Urine Bacteria (Negative) HPF Urine Casts (Negative) LPF Urine Mucus (Negative) Ur Culture Indicated? Urine Glucose (Negative) mg/dL COVID-19 Source SARS-CoV-2 (PCR) (Negative) Influenza Type A (PCR) (Negative) Influenza Type B (PCR) (Negative) RSV (PCR) (Negative) Range/Units 10/12/22 10/12/22 13:20 15:13 WBC (4.4-10.8) 10^3/uL RBC (3.93-5.22) 10^6/uL Hgb (11.2-15.7) g/dL Hct (36.0-46.0) % MCV (80-95) fL MCH (27.0-33.0) pg MCHC (32.0-36.0) % RDW (11.7-14.6) % Plt Count (130-400) 10^3/uL MPV (8.0-11.0) fL Immature Gran % Neutrophils % Lymphocytes % Monocytes % Eosinophils % Basophils % Nucleated RBC % (0.0-0.3) % Absolute Neutrophils (1.2-6.7) 10^3/uL Absolute Lymphocytes (1.2-3.4) 10^3/uL Absolute Monocytes (0.1-0.8) 10^3/uL Absolute Eosinophils (0.0-0.7) 10^3/uL Absolute Basophils (0.0-0.2) 10^3/uL ESR (0-30) mm/hr D-Dimer (<500) ng/mlFEU VBG pH (7.31-7.41) VBG pCO2 (41-51) mmHg VBG pO2 mmHg VBG HCO3 (23-28) mmol/L VBG Total CO2 (24-29) mmol/L VBG O2 Saturation % VBG Base Excess (-2-3) mmol/L VBG Lactate (0.6-1.4) mmol/L Sodium (136-145) mmol/L Potassium (3.5-5.1) mmol/L Chloride (98-107) mmol/L Carbon Dioxide (21.0-32.0) mmol/L Anion Gap (3-11) mmol/L BUN (7-18) mg/dL Creatinine (0.55-1.02) mg/dL Est GFR (CKD-EPI 2020) (mL/min/1.73m2) Glucose (74-106) mg/dL Calcium (8.5-10.1) mg/dL Magnesium (1.8-2.4) mg/dL Total Bilirubin (0.2-1.0) mg/dL AST (15-37) U/L ALT (14-59) U/L Alkaline Phosphatase (46-116) U/L Troponin I (<or=60) ng/L 3712 H* C-Reactive Protein (0.0-0.3) mg/dL NT-Pro-B Natriuret Pep (<300) pg/mL Total Protein (6.4-8.2) g/dL Albumin (3.4-5.0) g/dL Lipase (73-393) U/L Urine Color (Yellow) Yellow Urine Clarity (Clear) Clear Urine pH (5-8) 6.5 Ur Specific Elkins (1.005-1.025) 1.015 Urine Protein (Negative) mg/dL 30 H Urine Ketones (Negative) mg/dL Negative Urine Blood (Negative) Trace-intact H Urine Nitrite (Negative) Negative Urine Bilirubin (Negative) Negative Urine Urobilinogen (Up TO 0.2) EU/dL 0.2 Ur Leukocyte Esterase (Negative) Negative Urine RBC (0-2) HPF 0-2 Urine WBC (0-5) HPF Negative Ur Epithelial Cells (Negative) HPF Moderate Urine Crystals (Negative) HPF Negative Urine Bacteria (Negative) HPF Rare Urine Casts (Negative) LPF 0-2 Hyaline Urine Mucus (Negative) Negative Ur Culture Indicated? No Urine Glucose (Negative) mg/dL 100 COVID-19 Source SARS-CoV-2 (PCR) (Negative) Influenza Type A (PCR) (Negative) Influenza Type B (PCR) (Negative) RSV (PCR) (Negative) Sign Out Yes Sign Out Sign Out Data: Sign Out Comment: pending admission to ICU Last updated by Cherie Duarte PA at 10/12/22 16:38 Discharge Plan Disposition Patient Disposition: Admit to [facility] Condition: Serious Discharge Details Clinical Impression: COVID-19, Non-ST elevation MA (NSTEMI) Admit Date/Time: 10/12/22 18:38 Admit Provider: Selvin Jorge Attending Provider: Selvin Jorge Primary Care Provider: Katherine Andre ED Provider: Patricia Liriano
--- NOTE | 2022-10-12 18:32 | HPE_ITS ---
Date of service: 10/12/22 Time of Service: 18:32 Assessment and Plan Assessment and plan (1) COVID-19: Start date: 10/12/22 Status: Acute Assessment and plan: This is a 72-year-old lady who presents with generalized weakness and not been able to walk because of weakness of muscles but no complaints of myalgias, increased edema or shortness of breath other than cough, no chest pain and no dizziness. She denies any significant fever. She is chronically on oxygen without increased needs. He did have some hypoglycemia and is on chronic insulin with oral hypoglycemic with question of compliance. She denies any significant GI symptoms but may have had decreased intake. In the ED she was found to be positive for COVID and was initiated on remdesivir with patient chronically on prednisone but switched to dexamethasone because of acute COVID without immunization. She does have lung findings by exam but not worsening hypoxemia. She could have complications of this infection and denies previous documented COVID infection. Supportive care and isolation because of contagiousness. (2) Non-ST elevation UT (NSTEMI): Status: Acute Assessment and plan: Patient is most likely having ischemic episode with strain of acute COVID infection presents mostly with generalized weakness rather than chest pain or shortness of breath worsening. Her troponins are elevating and there are some ST segment depressions on EKG which are new with patient on heparin infusion at this time and she will be maximally treated medically with loading Plavix, co ntinue aspirin along with heparin. Her omeprazole will be switched to Protonix because of Plavix interaction. High-dose statin and consider beta-cyndi if progressive symptoms or elevation of troponin or if ectopy. Blood pressure may limit treatment. She is a DNR/DNI. (3) Heart failure with reduced ejection fraction: Status: Chronic Assessment and plan: Monitor on IV Lasix holding oral diuretics for now. Trend labs. (4) CKD (chronic kidney disease) stage 3, GFR 30-59 ml/min: Status: Chronic Assessment and plan: Worsening creatinine with CHF exacerbation. Patient appears to be fluid overloaded and will not receive IV fluids but IV Lasix hoping that the kidney function will improve. Supportive care. (5) Type 2 diabetes mellitus with retinopathy of both eyes, with long-term current use of insulin: Status: Chronic Assessment and plan: Hold outpatient medical therapy and check glucometer measurements with short acting insulin coverage. Watch for hypoglycemia. (6) Chronic obstructive pulmonary disease: Status: Chronic Assessment and plan: Continue outpatient inhaler therapy and avoid nebulizers with COVID-19 if patient is not wheezing or exacerbated. She does have inspiratory crackles but no wheeze. Her baseline lung exam is unknown to this provider. She appears comfortable and not dyspneic at rest. Qualifiers: COPD type: emphysema Emphysema type: centrilobular Qualified Code(s): J43.2 - Centrilobular emphysema (7) Polymyalgia rheumatica: Status: Chronic Assessment and plan: Patient is chronically on prednisone 15 mg and this will be held while being treated with dexamethasone for COVID-19 infection. History of Present Illness History of Present Illness Chief Complaint: Generalized weakness not being able to walk Narrative: This is a 72-year-old lady who presented to the ED because of extreme weakness not being able to walk. She had a slight cough and all these symptoms had been occurring over the last several days gradually worsening. She reported to ED was found to have positive COVID-19 infection wit acute EKG changes and elevated troponin. She was on oxygen at home and required about the same amount of oxygen in the ED. She did not report significant shortness of breath and cough was nonproductive. She denies any fever. She is not COVID immunized. She does have diabetes and was having low sugars recently but is on oral hypoglycemics with insulin. Compliance may be an issue. She denies any chest pain or palpitations. In the ED she was found to have an elevated troponin which was increasing with trending and [facility] cardiology advised heparinization which was initiated. She also has CHF which appears to be worsened by BNP but clinically not worsening hypoxemia and no peripheral edema. She does have biventricular heart failure. She is a poor historian. She was admitted for IV heparin with dual platelet therapy initiated having been on aspirin which will be continued and loaded with Plavix with then daily Plavix. She already is on high-dose statin but not on beta-cyndi which will be held unless she has continued elevation of troponins despite medical therapy, cardiac dysrhythmia or elevated blood pressure. Her diuretics will be held with oral treatment daily and Lasix will be given IV for now. Patient did not find this treatment plan pleasurable knowing that she would be urinating more. This may be a reason she has slight exacerbation CHF if she avoids diuretics at home because of frequency of urine. She is a DNR/DNI. Review of Systems Narrative: 13 point review of systems otherwise unrevealing or stable. PFSH All Active Problems COVID-19 (Acute) Non-ST elevation UT (NSTEMI) (Acute) CKD (chronic kidney disease) stage 3, GFR 30-59 ml/min (Chronic) Type 2 diabetes mellitus with retinopathy of both eyes, with long-term current use of insulin (Chronic) CVA (cerebral vascular accident) (Acute ~12/2021) Heart failure with reduced ejection fraction (Chronic) Chronic obstructive pulmonary disease (Chronic) 09/2021- O2 dependent on 2 l/min (O2 sat at 83% RA) Polymyalgia rheumatica (Chronic) Carotid atherosclerosis (Chronic) Essential hypertension (Chronic) GERD (gastroesophageal reflux disease) (Chronic) Pulmonary nodule (Chronic) Nicotine dependence, cigarettes, uncomplicated (Chronic) Annual LDCT Osteoarthritis of hips, bilateral (Chronic) Diabetic nephropathy (Chronic) Diabetic retinopathy (Chronic) Ventral hernia (Chronic) Generalized anxiety disorder (Chronic) Benign positional vertigo (Chronic) 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 Father Diabetes Daughter No problems noted. Daughter No problems noted. Daughter No problems noted. Daughter No problems noted. 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 Pets and animals: Yes Pets and animals: cat(s) Current gender identity: female What type of physical activity do you participate in: none Irma/Restoration: Yazidi Special irma needs: No Do you feel safe at home: Yes Do you feel safe in your relationship?: Yes Additional Social history: Lives alone in apartment at [place]. 4 daughters Meds Allergies and Home Medications Allergies Allergy/AdvReac Type Severity Reaction Status Date / Time codeine AdvReac Severe Cardiac Verified 08/28/22 14:02 Dysrythmia indomethacin AdvReac Intermediate Cardiac Verified 08/28/22 14:02 Dysrythmia lisinopril AdvReac cough Verified 08/28/22 14:02 Home Medications Medication Instructions Recorded Confirmed Type blood-glucose meter (GroupTalentTouch #1 ea 11/26/20 08/28/22 Rx Ultra2 Meter kit) cholecalciferol (vitamin D3) 25 25 mcg PO DAILY 08/30/21 10/12/22 History mcg (1,000 unit) capsule (Vitamin D3) acetaminophen 500 mg tablet 1,000 mg PO Q6H PRN 12/23/21 08/28/22 History inhalational spacing device #2 ea 12/25/21 08/28/22 Rx (Aerochamber MV spacer) sacubitril 24 mg-valsartan 26 mg 1 tab PO BID #90 tabs 03/17/22 10/12/22 Rx tablet (Entresto) calcium carbonate 215 mg calcium 215 mg PO BID PRN 06/11/22 08/28/22 History (500 mg) chewable tablet (Antacid Calcium) loperamide-simethicone 2 mg-125 mg 2 tab PO Q3H PRN 06/11/22 08/28/22 History tablet docusate sodium 100 mg capsule 100 mg PO DAILY 07/10/22 10/12/22 History albuterol sulfate 90 mcg/actuation 2 puff inhalation Q6H PRN 07/11/22 08/28/22 Rx aerosol inhaler shortness of breath or wheezing #18 grams aspirin 81 mg tablet,delayed 81 mg PO DAILY #90 tabs 07/11/22 10/12/22 Rx release atorvastatin 80 mg tablet 80 mg PO QPM #90 tabs 07/11/22 10/12/22 Rx blood-glucose meter,continuous #1 ea 07/11/22 08/28/22 Rx (Dexcom G6 Towel Stretcher misc) blood-glucose sensor (Dexcom G6 #3 ea 07/11/22 08/28/22 Rx Sensor device) blood-glucose transmitter (Dexcom #1 ea 07/11/22 08/28/22 Rx G6 Transmitter device) cetirizine 10 mg tablet 10 mg PO DAILY #90 tab-caps 07/11/22 10/12/22 Rx empagliflozin 10 mg tablet 10 mg PO DAILY #90 tabs 07/11/22 10/12/22 Rx ferrous sulfate 325 mg (65 mg 325 mg PO DAILY #90 tabs 07/11/22 08/28/22 Rx iron) tablet,delayed release fluticasone propionate 50 2 spray intranasal DAILY PRN 07/11/22 08/28/22 Rx mcg/actuation nasal allergy symptoms #16 grams spray,suspension (Flonase Allergy Relief) glipizide 5 mg tablet 2.5 mg PO DAILY #45 tabs 07/11/22 10/12/22 Rx glycopyrrolate 9 mcg-formoterol 1 puff inhalation BID #10.7 grams 07/11/22 08/28/22 Rx 4.8 mcg HFA aerosol inhaler ([employer]) insulin aspart U-100 100 unit/mL 1 sliding scale dose subcut TID #9 07/11/22 08/28/22 Rx (3 mL) subcutaneous pen SYRGS insulin glargine 100 unit/mL (3 30 unit (0.3 mL) subcut QAM #9 07/11/22 10/12/22 Rx mL) subcutaneous pen (Lantus SYRGS Solostar U-100 Insulin) pen needle,diabetic dual safty 30 #360 ea 07/11/22 08/28/22 Rx gauge x 3/16 (BD AutoShield Duo Pen Needle) gabapentin 300 mg capsule 300 mg PO QHS #90 caps 07/16/22 10/12/22 Rx spironolactone 25 mg tablet 25 mg PO DAILY #90 tabs 07/16/22 10/12/22 Rx cholecalciferol (vitamin D3) 25 25 mcg PO DAILY #90 caps 07/17/22 08/28/22 Rx mcg (1,000 unit) capsule blood sugar diagnostic (OneTouch #400 ea 08/11/22 08/28/22 Rx Ultra Test strips) lancets 33 gauge (OneTouch Delica #300 ea 08/12/22 08/28/22 Rx Plus Lancet) torsemide 20 mg tablet 20 mg PO BID #180 tabs 09/09/22 10/12/22 Rx omeprazole 20 mg capsule,delayed 20 mg PO BID 10/12/22 10/12/22 History release prednisone 5 mg tablet 15 mg PO DAILY 10/12/22 10/12/22 History Exam Narrative Exam Narrative: General: Patient appears older than stated age, short stature and mild obesity, alert and oriented x3. She is in moderate distress and slightly agitated with flattened affect and complaining of multiple issues but not specific symptoms. HEENT: Normocephalic, eyes with pupils equal and react light symmetrically, extraocular movements active sclera anicteric. Oropharynx with slightly dry mucosa. Neck: Supple without JVD. Back: Kyphotic without CVA tenderness. Lung: Coarse inspiratory crackles over both bases and up the left, no rhonchi and no expiratory wheeze. Decreased aeration of both bases with fair to poor aeration over other lung ramirez. Heart: Regular rate and rhythm with no appreciable gallop or rub. 3/6 holosystolic murmur at apex. Breast: Exam deferred. Abdomen: Soft, nontender to palpation without guarding or rebound. No palpable hepatosplenomegaly. Bowel sounds positive all quadrants. Genitalia/rectal: Exam deferred. Extremities: Without clubbing, cyanosis or pitting edema. Peripheral pulses decreased but intact. Fair capillary refill. Skin: Normal color, warm and dry. Neuro: Cranial nerves II through XII gross intact, no focalizing motor deficits or tremor. Psych: Flat affect with depressed mood. Easily agitated with conversation. No abnormal thought processes. Remote and recent memory grossly intact. Patient is a poor historian. Results Imaging Imaging Studies: EXAM:? XR PORTABLE CHEST AP CLINICAL HISTORY:? shortness of breath TECHNIQUE:? 2D digital imaging was performed of the chest. One image was obtained.? An AP view was obtained. COMPARISON:? CR,XR XR PORTABLE CHEST AP from 05/09/2022 FINDINGS: MEDIASTINUM: Normal.? HEART: Unchanged cardiomegaly.? PULMONARY VASCULATURE: Normal. LUNGS: There has been clearing in the right lung base.? There is a persistent left basilar infiltrate which may represent atelectasis or scarring.? There is underlying COPD and chronic interstitial disease. PLEURAL SPACE: There is persistent blunting of the left costophrenic angle which may represent scarring or small effusion.? BONE:Within normal limits for the patient's age. OTHER FINDINGS:Normal.? HEART: Unchanged cardiomegaly.? IMPRESSION: Overall there has been a slight improvement in the appearance of the lungs since 05/09/2022 particularly noted in the right lung base.? EXAM: Comprehensive 2D, Doppler, and color-flow Echocardiogram Patient Location: ER Room/Bed:? 4 Service Order Expediter: Chandni Ba RDCS (AE) Indications: Pulmonary Congestion Other Information Study Quality: Fair. Technically limited study due to inability to position patient, body habitus. Conclusion Mildly dilated left ventricle.? Normal left ventricular wall thickness.? Estimated ejection fraction is 35% with global hypokinesis The right ventricle is dilated and hypocontractile Both atria are moderately enlarged There is mild aortic valve sclerosis without stenosis or regurgitation Mild mitral annular calcification.? Moderate mitral regurgitation Normal tricuspid valve with mild regurgitation.? Estimated right ventricular systolic pressure is 44 mmHg Labs Result diagrams: 10/12/22 11:55 10/12/22 11:55 Labs: Laboratory Results - last 24 hr 10/12/22 10/12/22 10/12/22 11:55 11:55 11:55 WBC RBC Hgb Hct MCV MCH MCHC RDW Plt Count MPV Immature Gran % Neutrophils % Lymphocytes % Monocytes % Eosinophils % Basophils % Nucleated RBC % Absolute Neutrophils Absolute Lymphocytes Absolute Monocytes Absolute Eosinophils Absolute Basophils ESR D-Dimer VBG pH 7.42 H VBG pCO2 56 H VBG pO2 104 VBG HCO3 36 H VBG Total CO2 34 H VBG O2 Saturation 98 VBG Base Excess 12 H VBG Lactate 0.8 Sodium Potassium Chloride Carbon Dioxide Anion Gap BUN Creatinine Est GFR (CKD-EPI 2020) Glucose Calcium Magnesium Total Bilirubin AST ALT Alkaline Phosphatase Troponin I C-Reactive Protein NT-Pro-B Natriuret Pep Total Protein Albumin Lipase Urine Color Urine Clarity Urine pH Ur Specific Van Urine Protein Urine Ketones Urine Blood Urine Nitrite Urine Bilirubin Urine Urobilinogen Ur Leukocyte Esterase Urine RBC Urine WBC Ur Epithelial Cells Urine Crystals Urine Bacteria Urine Casts Urine Mucus Ur Culture Indicated? Urine Glucose COVID-19 Source Nasopharynx SARS-CoV-2 (PCR) Positive A Influenza Type A (PCR) Negative Influenza Type B (PCR) Negative RSV (PCR) Negative 10/12/22 10/12/22 10/12/22 11:55 11:55 11:55 WBC 9.13 RBC 3.36 L Hgb 9.3 L Hct 30.5 L MCV 91 MCH 27.7 MCHC 30.5 L RDW 17.2 H Plt Count 185 MPV 10.7 Immature Gran % 0.3 Neutrophils % 84.3 Lymphocytes % 2.2 Monocytes % 11.7 Eosinophils % 1.4 Basophils % 0.1 Nucleated RBC % 0.0 Absolute Neutrophils 7.69 H Absolute Lymphocytes 0.20 L Absolute Monocytes 1.07 H Absolute Eosinophils 0.13 Absolute Basophils 0.01 ESR D-Dimer VBG pH VBG pCO2 VBG pO2 VBG HCO3 VBG Total CO2 VBG O2 Saturation VBG Base Excess VBG Lactate Sodium 138 Potassium 5.1 Chloride 99 Carbon Dioxide 34.9 H Anion Gap 4.1 BUN 70 H Creatinine 2.7 H Est GFR (CKD-EPI 2020) 18.06 Glucose 87 Calcium 9.1 Magnesium 2.3 Total Bilirubin 0.6 AST 50 H ALT 66 H Alkaline Phosphatase 38 L Troponin I 1918 H* C-Reactive Protein 0.27 NT-Pro-B Natriuret Pep 88866 H Total Protein 7.4 Albumin 3.5 Lipase 175 Urine Color Urine Clarity Urine pH Ur Specific Van Urine Protein Urine Ketones Urine Blood Urine Nitrite Urine Bilirubin Urine Urobilinogen Ur Leukocyte Esterase Urine RBC Urine WBC Ur Epithelial Cells Urine Crystals Urine Bacteria Urine Casts Urine Mucus Ur Culture Indicated? Urine Glucose COVID-19 Source SARS-CoV-2 (PCR) Influenza Type A (PCR) Influenza Type B (PCR) RSV (PCR) 10/12/22 10/12/22 10/12/22 11:55 12:44 13:00 WBC RBC Hgb Hct MCV MCH MCHC RDW Plt Count MPV Immature Gran % Neutrophils % Lymphocytes % Monocytes % Eosinophils % Basophils % Nucleated RBC % Absolute Neutrophils Absolute Lymphocytes Absolute Monocytes Absolute Eosinophils Absolute Basophils ESR 30 D-Dimer 589 H VBG pH VBG pCO2 VBG pO2 VBG HCO3 VBG Total CO2 VBG O2 Saturation VBG Base Excess VBG Lactate Sodium Potassium Chloride Carbon Dioxide Anion Gap BUN Creatinine Est GFR (CKD-EPI 2020) Glucose Calcium Magnesium Total Bilirubin AST ALT Alkaline Phosphatase Troponin I C-Reactive Protein NT-Pro-B Natriuret Pep Cancelled Total Protein Albumin Lipase Urine Color Urine Clarity Urine pH Ur Specific Van Urine Protein Urine Ketones Urine Blood Urine Nitrite Urine Bilirubin Urine Urobilinogen Ur Leukocyte Esterase Urine RBC Urine WBC Ur Epithelial Cells Urine Crystals Urine Bacteria Urine Casts Urine Mucus Ur Culture Indicated? Urine Glucose COVID-19 Source SARS-CoV-2 (PCR) Influenza Type A (PCR) Influenza Type B (PCR) RSV (PCR) 10/12/22 10/12/22 13:20 15:13 WBC RBC Hgb Hct MCV MCH MCHC RDW Plt Count MPV Immature Gran % Neutrophils % Lymphocytes % Monocytes % Eosinophils % Basophils % Nucleated RBC % Absolute Neutrophils Absolute Lymphocytes Absolute Monocytes Absolute Eosinophils Absolute Basophils ESR D-Dimer VBG pH VBG pCO2 VBG pO2 VBG HCO3 VBG Total CO2 VBG O2 Saturation VBG Base Excess VBG Lactate Sodium Potassium Chloride Carbon Dioxide Anion Gap BUN Creatinine Est GFR (CKD-EPI 2020) Glucose Calcium Magnesium Total Bilirubin AST ALT Alkaline Phosphatase Troponin I 3712 H* C-Reactive Protein NT-Pro-B Natriuret Pep Total Protein Albumin Lipase Urine Color Yellow Urine Clarity Clear Urine pH 6.5 Ur Specific Van 1.015 Urine Protein 30 H Urine Ketones Negative Urine Blood Trace-intact H Urine Nitrite Negative Urine Bilirubin Negative Urine Urobilinogen 0.2 Ur Leukocyte Esterase Negative Urine RBC 0-2 Urine WBC Negative Ur Epithelial Cells Moderate Urine Crystals Negative Urine Bacteria Rare Urine Casts 0-2 Hyaline Urine Mucus Negative Ur Culture Indicated? No Urine Glucose 100 COVID-19 Source SARS-CoV-2 (PCR) Influenza Type A (PCR) Influenza Type B (PCR) RSV (PCR) Last Vital Signs Temp 37.9 C H 10/12/22 11:27 Pulse 89 10/12/22 16:20 Resp 16 10/12/22 16:21 BP 109/65 10/12/22 16:20 Pulse Ox 95 10/12/22 16:10
[2022-10-12 18:39] LABS: Troponin I 4184 ng/L (<or=60)
[2022-10-12 18:51] LABS: PTT Activated 24.1 sec (21.0-27.5); Prothrombin Time 10.4 sec (9.3-11.0)
[2022-10-12 19:12] LABS: Procalcitonin 0.1 ng/mL
[2022-10-12] MEDS: Clopidogrel 300 MG TAB 600 MG PO (21:50)
[2022-10-12] MEDS: Gabapentin 300 MG CAP PO (21:50)
[2022-10-12] MEDS: Furosemide 40 MG/4 ML VIAL IVP (21:51)
[2022-10-12] MEDS: Normal Saline Flush 10 ML SYR IVP (21:51)
[2022-10-12 22:35] LABS: Troponin I 3387 ng/L (<or=60)
[2022-10-12] MEDS: Dexamethasone 4 MG TAB 6 MG PO (23:38)
[2022-10-13] VITALS (41 sets, daily range): BP systolic 122–146; BP diastolic 55–77; PULSE 76–105; RESP 19–42; TEMP 36.4–36.9; O2SAT 87–96
[2022-10-13 01:20] LABS: PTT Activated 62.6 sec (21.0-27.5)
[2022-10-13 01:27] LABS: Troponin I 2602 ng/L (<or=60)
[2022-10-13 06:19] LABS: HCT 29.9 % (36.0-46.0); HGB 9.1 g/dL (11.2-15.7); MCH 27.7 pg (27.0-33.0); MCHC 30.4 % (32.0-36.0); MCV 91 fL (80-95); MPV 10.9 fL (8.0-11.0); Platelet Count 166 10^3/uL (130-400); RBC 3.29 10^6/uL (3.93-5.22); RDW 17.2 % (11.7-14.6); RDW-SD 57.3 fL; WBC 6.78 10^3/uL (4.4-10.8)
[2022-10-13 06:43] LABS: ALT 80 U/L (14-59); AST 63 U/L (15-37); Albumin 3.2 g/dL (3.4-5.0); Alkaline Phosphatase 41 U/L (46-116); BUN 68 mg/dL (7-18); Bilirubin, Total 0.5 mg/dL (0.2-1.0); CO2 34.1 mmol/L (21.0-32.0); CREATININE 2.4 mg/dL (0.55-1.02); Calcium 8.5 mg/dL (8.5-10.1); Glucose 83 mg/dL (74-106); Magnesium 2.1 mg/dL (1.8-2.4); Potassium 4.4 mmol/L (3.5-5.1); Total Protein 6.7 g/dL (6.4-8.2)
[2022-10-13 06:54] LABS: Troponin I 2245 ng/L (<or=60)
[2022-10-13 06:55] LABS: Anion Gap 6.9 mmol/L (3-11); Chloride 99 mmol/L (98-107); Sodium 140 mmol/L (136-145)
[2022-10-13] MEDS: Dexamethasone 4 MG TAB 6 MG PO (07:52)
[2022-10-13] MEDS: Aspirin E.C. 81 MG TABEC PO (07:52)
[2022-10-13] MEDS: Pantoprazole 40 MG TABCR PO (07:53)
[2022-10-13] MEDS: Clopidogrel 75 MG TAB PO (07:53)
[2022-10-13] MEDS: Furosemide 40 MG/4 ML VIAL IVP ×2 (08:20→17:15)
--- NOTE | 2022-10-13 08:34 | W.CARDCONSUL ---
Date of service: 10/13/22 Time of Service: 08:34 Assessment and Plan Assessment and plan (1) Non-ST elevation MN (NSTEMI): Status: Acute Assessment and plan: This is most likely a type II myocardial infarction. Her EKG did not show any diagnostic changes that is consistent with left ventricular hypertrophy and repolarization abnormalities. She has known severe LV dysfunction. I expect that a new echocardiogram has been ordered (2) Heart failure with reduced ejection fraction: Status: Chronic Assessment and plan: Previous EF was 35%, global hypokinesis. Await updated echo (3) Chronic obstructive pulmonary disease: Status: Chronic Assessment and plan: Severe COPD, ongoing tobacco use, on oxygen Overall the patient has multiple comorbidities and is at risk of poor outcome on various fronts. Supportive care is ongoing. This should be continued. It is noted she is DNR/DNI Qualifiers: COPD type: emphysema Emphysema type: centrilobular Qualified Code(s): J43.2 - Centrilobular emphysema History of Present Illness History of Present Illness Chief Complaint: weakness Narrative: This is 1 of numerous hospital admissions for this 72-year-old woman with COPD on oxygen, cardiomyopathy with a EF 35%, diabetes, chronic kidney disease, polymyalgia rheumatica on steroids, diabetes and prior stroke. She has been admitted to the hospital with COVID and been found to have significantly elevated troponins. Her chest x-ray did not demonstrate congestive heart failure and was in fact read as improved compared to a chest x-ray from May. She has been heparinized and started on Plavix as well and supportive care with diuretics. She has also been given remdesivir and antibiotics Consults Consult date: 10/13/22 Review of Systems Narrative: Patient was not interviewed PFSH All Active Problems COVID-19 (Acute) Non-ST elevation MN (NSTEMI) (Acute) CKD (chronic kidney disease) stage 3, GFR 30-59 ml/min (Chronic) Type 2 diabetes mellitus with retinopathy of both eyes, with long-term current use of insulin (Chronic) CVA (cerebral vascular accident) (Acute ~12/2021) Heart failure with reduced ejection fraction (Chronic) Chronic obstructive pulmonary disease (Chronic) 09/2021- O2 dependent on 2 l/min (O2 sat at 83% RA) Polymyalgia rheumatica (Chronic) Carotid atherosclerosis (Chronic) Essential hypertension (Chronic) GERD (gastroesophageal reflux disease) (Chronic) Pulmonary nodule (Chronic) Nicotine dependence, cigarettes, uncomplicated (Chronic) Annual LDCT Osteoarthritis of hips, bilateral (Chronic) Diabetic nephropathy (Chronic) Diabetic retinopathy (Chronic) Ventral hernia (Chronic) Generalized anxiety disorder (Chronic) Benign positional vertigo (Chronic) 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 Father Diabetes Daughter No problems noted. Daughter No problems noted. Daughter No problems noted. Daughter No problems noted. 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 4 daughters Exam Narrative Exam Narrative: Patient was not examined Results Last Vital Signs Temp 36.5 C 10/13/22 02:00 Pulse 82 10/13/22 04:01 Resp 21 10/13/22 08:00 BP 129/55 L 10/13/22 04:01 Pulse Ox 94 10/13/22 08:00 Labs Result diagrams: 10/13/22 06:00 10/13/22 06:00 Labs: Laboratory Results - last 24 hr 10/12/22 10/12/22 10/12/22 11:55 11:55 11:55 WBC RBC Hgb Hct MCV MCH MCHC RDW Plt Count MPV Immature Gran % Neutrophils % Lymphocytes % Monocytes % Eosinophils % Basophils % Nucleated RBC % Absolute Neutrophils Absolute Lymphocytes Absolute Monocytes Absolute Eosinophils Absolute Basophils ESR PT INR APTT D-Dimer VBG pH 7.42 H VBG pCO2 56 H VBG pO2 104 VBG HCO3 36 H VBG Total CO2 34 H VBG O2 Saturation 98 VBG Base Excess 12 H VBG Lactate 0.8 Sodium Potassium Chloride Carbon Dioxide Anion Gap BUN Creatinine Est GFR (CKD-EPI 2020) Glucose Calcium Magnesium Total Bilirubin AST ALT Alkaline Phosphatase Troponin I C-Reactive Protein NT-Pro-B Natriuret Pep Total Protein Albumin Lipase Procalcitonin Urine Color Urine Clarity Urine pH Ur Specific [place] Urine Protein Urine Ketones Urine Blood Urine Nitrite Urine Bilirubin Urine Urobilinogen Ur Leukocyte Esterase Urine RBC Urine WBC Ur Epithelial Cells Urine Crystals Urine Bacteria Urine Casts Urine Mucus Ur Culture Indicated? Urine Glucose COVID-19 Source Nasopharynx SARS-CoV-2 (PCR) Positive A Influenza Type A (PCR) Negative Influenza Type B (PCR) Negative RSV (PCR) Negative 10/12/22 10/12/22 10/12/22 11:55 11:55 11:55 WBC 9.13 RBC 3.36 L Hgb 9.3 L Hct 30.5 L MCV 91 MCH 27.7 MCHC 30.5 L RDW 17.2 H Plt Count 185 MPV 10.7 Immature Gran % 0.3 Neutrophils % 84.3 Lymphocytes % 2.2 Monocytes % 11.7 Eosinophils % 1.4 Basophils % 0.1 Nucleated RBC % 0.0 Absolute Neutrophils 7.69 H Absolute Lymphocytes 0.20 L Absolute Monocytes 1.07 H Absolute Eosinophils 0.13 Absolute Basophils 0.01 ESR PT INR APTT D-Dimer VBG pH VBG pCO2 VBG pO2 VBG HCO3 VBG Total CO2 VBG O2 Saturation VBG Base Excess VBG Lactate Sodium 138 Potassium 5.1 Chloride 99 Carbon Dioxide 34.9 H Anion Gap 4.1 BUN 70 H Creatinine 2.7 H Est GFR (CKD-EPI 2020) 18.06 Glucose 87 Calcium 9.1 Magnesium 2.3 Total Bilirubin 0.6 AST 50 H ALT 66 H Alkaline Phosphatase 38 L Troponin I 1918 H* C-Reactive Protein 0.27 NT-Pro-B Natriuret Pep 59221 H Total Protein 7.4 Albumin 3.5 Lipase 175 Procalcitonin Urine Color Urine Clarity Urine pH Ur Specific [place] Urine Protein Urine Ketones Urine Blood Urine Nitrite Urine Bilirubin Urine Urobilinogen Ur Leukocyte Esterase Urine RBC Urine WBC Ur Epithelial Cells Urine Crystals Urine Bacteria Urine Casts Urine Mucus Ur Culture Indicated? Urine Glucose COVID-19 Source SARS-CoV-2 (PCR) Influenza Type A (PCR) Influenza Type B (PCR) RSV (PCR) 10/12/22 10/12/22 10/12/22 11:55 12:44 13:00 WBC RBC Hgb Hct MCV MCH MCHC RDW Plt Count MPV Immature Gran % Neutrophils % Lymphocytes % Monocytes % Eosinophils % Basophils % Nucleated RBC % Absolute Neutrophils Absolute Lymphocytes Absolute Monocytes Absolute Eosinophils Absolute Basophils ESR 30 PT INR APTT D-Dimer 589 H VBG pH VBG pCO2 VBG pO2 VBG HCO3 VBG Total CO2 VBG O2 Saturation VBG Base Excess VBG Lactate Sodium Potassium Chloride Carbon Dioxide Anion Gap BUN Creatinine Est GFR (CKD-EPI 2020) Glucose Calcium Magnesium Total Bilirubin AST ALT Alkaline Phosphatase Troponin I C-Reactive Protein NT-Pro-B Natriuret Pep Cancelled Total Protein Albumin Lipase Procalcitonin Urine Color Urine Clarity Urine pH Ur Specific [place] Urine Protein Urine Ketones Urine Blood Urine Nitrite Urine Bilirubin Urine Urobilinogen Ur Leukocyte Esterase Urine RBC Urine WBC Ur Epithelial Cells Urine Crystals Urine Bacteria Urine Casts Urine Mucus Ur Culture Indicated? Urine Glucose COVID-19 Source SARS-CoV-2 (PCR) Influenza Type A (PCR) Influenza Type B (PCR) RSV (PCR) 10/12/22 10/12/22 10/12/22 13:20 15:13 18:00 WBC RBC Hgb Hct MCV MCH MCHC RDW Plt Count MPV Immature Gran % Neutrophils % Lymphocytes % Monocytes % Eosinophils % Basophils % Nucleated RBC % Absolute Neutrophils Absolute Lymphocytes Absolute Monocytes Absolute Eosinophils Absolute Basophils ESR PT INR APTT D-Dimer VBG pH VBG pCO2 VBG pO2 VBG HCO3 VBG Total CO2 VBG O2 Saturation VBG Base Excess VBG Lactate Sodium Potassium Chloride Carbon Dioxide Anion Gap BUN Creatinine Est GFR (CKD-EPI 2020) Glucose Calcium Magnesium Total Bilirubin AST ALT Alkaline Phosphatase Troponin I 3712 H* 4184 H* C-Reactive Protein NT-Pro-B Natriuret Pep Total Protein Albumin Lipase Procalcitonin Urine Color Yellow Urine Clarity Clear Urine pH 6.5 Ur Specific [place] 1.015 Urine Protein 30 H Urine Ketones Negative Urine Blood Trace-intact H Urine Nitrite Negative Urine Bilirubin Negative Urine Urobilinogen 0.2 Ur Leukocyte Esterase Negative Urine RBC 0-2 Urine WBC Negative Ur Epithelial Cells Moderate Urine Crystals Negative Urine Bacteria Rare Urine Casts 0-2 Hyaline Urine Mucus Negative Ur Culture Indicated? No Urine Glucose 100 COVID-19 Source SARS-CoV-2 (PCR) Influenza Type A (PCR) Influenza Type B (PCR) RSV (PCR) 10/12/22 10/12/22 10/12/22 18:00 18:30 21:45 WBC RBC Hgb Hct MCV MCH MCHC RDW Plt Count MPV Immature Gran % Neutrophils % Lymphocytes % Monocytes % Eosinophils % Basophils % Nucleated RBC % Absolute Neutrophils Absolute Lymphocytes Absolute Monocytes Absolute Eosinophils Absolute Basophils ESR PT 10.4 INR 1.0 APTT 24.1 D-Dimer VBG pH VBG pCO2 VBG pO2 VBG HCO3 VBG Total CO2 VBG O2 Saturation VBG Base Excess VBG Lactate Sodium Potassium Chloride Carbon Dioxide Anion Gap BUN Creatinine Est GFR (CKD-EPI 2020) Glucose Calcium Magnesium Total Bilirubin AST ALT Alkaline Phosphatase Troponin I 3387 H* C-Reactive Protein NT-Pro-B Natriuret Pep Total Protein Albumin Lipase Procalcitonin 0.1 Urine Color Urine Clarity Urine pH Ur Specific [place] Urine Protein Urine Ketones Urine Blood Urine Nitrite Urine Bilirubin Urine Urobilinogen Ur Leukocyte Esterase Urine RBC Urine WBC Ur Epithelial Cells Urine Crystals Urine Bacteria Urine Casts Urine Mucus Ur Culture Indicated? Urine Glucose COVID-19 Source SARS-CoV-2 (PCR) Influenza Type A (PCR) Influenza Type B (PCR) RSV (PCR) 10/13/22 10/13/22 10/13/22 00:53 00:53 06:00 WBC RBC Hgb Hct MCV MCH MCHC RDW Plt Count MPV Immature Gran % Neutrophils % Lymphocytes % Monocytes % Eosinophils % Basophils % Nucleated RBC % Absolute Neutrophils Absolute Lymphocytes Absolute Monocytes Absolute Eosinophils Absolute Basophils ESR PT INR APTT 62.6 H D-Dimer VBG pH VBG pCO2 VBG pO2 VBG HCO3 VBG Total CO2 VBG O2 Saturation VBG Base Excess VBG Lactate Sodium Potassium Chloride Carbon Dioxide Anion Gap BUN Creatinine Est GFR (CKD-EPI 2020) Glucose Calcium Magnesium Total Bilirubin AST ALT Alkaline Phosphatase Troponin I 2602 H* 2245 H* C-Reactive Protein NT-Pro-B Natriuret Pep Total Protein Albumin Lipase Procalcitonin Urine Color Urine Clarity Urine pH Ur Specific [place] Urine Protein Urine Ketones Urine Blood Urine Nitrite Urine Bilirubin Urine Urobilinogen Ur Leukocyte Esterase Urine RBC Urine WBC Ur Epithelial Cells Urine Crystals Urine Bacteria Urine Casts Urine Mucus Ur Culture Indicated? Urine Glucose COVID-19 Source SARS-CoV-2 (PCR) Influenza Type A (PCR) Influenza Type B (PCR) RSV (PCR) 10/13/22 10/13/22 06:00 06:00 WBC 6.78 RBC 3.29 L Hgb 9.1 L Hct 29.9 L MCV 91 MCH 27.7 MCHC 30.4 L RDW 17.2 H Plt Count 166 MPV 10.9 Immature Gran % Neutrophils % Lymphocytes % Monocytes % Eosinophils % Basophils % Nucleated RBC % Absolute Neutrophils Absolute Lymphocytes Absolute Monocytes Absolute Eosinophils Absolute Basophils ESR PT INR APTT D-Dimer VBG pH VBG pCO2 VBG pO2 VBG HCO3 VBG Total CO2 VBG O2 Saturation VBG Base Excess VBG Lactate Sodium 140 Potassium 4.4 Chloride 99 Carbon Dioxide 34.1 H Anion Gap 6.9 BUN 68 H Creatinine 2.4 H Est GFR (CKD-EPI 2020) 20.80 Glucose 83 Calcium 8.5 Magnesium 2.1 Total Bilirubin 0.5 AST 63 H ALT 80 H Alkaline Phosphatase 41 L Troponin I C-Reactive Protein NT-Pro-B Natriuret Pep Total Protein 6.7 Albumin 3.2 L Lipase Procalcitonin Urine Color Urine Clarity Urine pH Ur Specific [place] Urine Protein Urine Ketones Urine Blood Urine Nitrite Urine Bilirubin Urine Urobilinogen Ur Leukocyte Esterase Urine RBC Urine WBC Ur Epithelial Cells Urine Crystals Urine Bacteria Urine Casts Urine Mucus Ur Culture Indicated? Urine Glucose COVID-19 Source SARS-CoV-2 (PCR) Influenza Type A (PCR) Influenza Type B (PCR) RSV (PCR)
--- NOTE | 2022-10-13 09:44 | PGE_ITS ---
Date of Service Date of service: 10/13/22 Time of Service: 09:45 Assessment and Plan Assessment and plan (1) COVID-19: Start date: 10/12/22 Status: Acute Assessment and plan: unclear source. Her daughter who lives local had COVID a month ago. The patient has a caregiver from [facility] who was ill w/ a cold and may have been the contact source. Patient is doing relatively well w/ no worsening respiratory symtpoms. Will continue Remdesivir x 5 days along w/ decadron. Encourage cough and deep breathing, IS, acapella Critical care time spent interviewing and examining the patient, reviewing studies, discussing case with patient's nurse and consulting physicians was 45 minutes (2) Non-ST elevation AR (NSTEMI): Status: Acute Assessment and plan: Given the levels of her troponin, and her inferolateral ST-T changes, I do bel ieve this was an NSTEMI and not demand ischemia from the COVID. Patient is disinclined to have PCI done. Will treat her medically w/ heparin drip x 48hr, DAPT, BB and diurese her for her HF. (3) Heart failure with reduced ejection fraction: Status: Chronic Assessment and plan: patient has known severe HFrEF w/ LVEF 35%, dilated LV w/ global HK, dilated hypocontractile RV and mod. MR, mild TR w/ PHTN (RVSP 44 mm). continue diuresis, judicious use of low dose metoprolol, patient was on GDT w/ jardiance and entresto at home. (4) CKD (chronic kidney disease) stage 3, GFR 30-59 ml/min: Status: Chronic Assessment and plan: monitor renal fxn while diuresing (5) Type 2 diabetes mellitus with retinopathy of both eyes, with long-term current use of insulin: Status: Chronic Assessment and plan: basal/bolus insulin; patient was having hypoglycemic spells at home. She was on glipizide as well as jardiance and insulin at home. Glipizide should be stopped. (6) Chronic obstructive pulmonary disease: Status: Chronic Assessment and plan: Continue outpatient inhaler therapy and avoid nebulizers with COVID-19 if patient is not wheezing or exacerbated. She does have inspiratory crackles but no wheeze. Her baseline lung exam is unknown to this provider. She appears comfortable and not dyspneic at rest. Qualifiers: COPD type: emphysema Emphysema type: centrilobular Qualified Code(s): J43.2 - Centrilobular emphysema (7) Polymyalgia rheumatica: Status: Chronic Assessment and plan: Patient is chronically on prednisone 15 mg and this will be held while being treated with dexamethasone for COVID-19 infection. Subjective Subjective Interval history since last seen: Beth denies any CP or dyspnea. She presented to the ED last night d/t generalized weakness and inability to ambulate. She thought that she may have had a stroke as this reportedly was her symptoms last time although she denies any focal weakness, slurred speech, headache. Evaluation last night revealed her to have had NSTEMI w/ peak troponin I of 4100 (she presented w/ troponin I of 1900 and BNP of 12,000). Her troponin I is now down to 2245. She had new inferolateral ST-T depression compared to prior EKG from 05/10/22 which were less prominent. Patient has been started on heparin drip, DAPT, statin and Remdesivir and decadron for her COVID. She is currently on oxygen @ 2 lpm per NC which is her baseline oxygen she uses for her COPD. She is asking about going home. I informed her that she will need to be here for few days while we treat her COVID and her AR. She asked me to talk to her daughter, Keri Jones in [place]. I updated Keri who is a trauma nurse and understood her mother's condition. She informed me that in the past her mother and the family supports their mother in her decision, not to pursue invasive treatment. I specifically asked her about cardiac cath and PCI and Keri seemed to think that her mother woud not want this. I talked this over with the patient and she was indecisive but indicated probably not. Exam Narrative Exam Narrative: Beth Is alert and oriented person place time circumstance. She does not appear to be in acute respiratory distress. Neck veins are flat normal carotid pulses no bruits Lungs are clear anteriorly posterior she has some bibasilar rales no rhonchi or wheezing Heart is regular rate and rhythm I did not appreciate murmur rub Abdomen soft and nontender no bruits Lower extremities without peripheral cyanosis or edema Neuro exam grossly intact no focal deficits. Objective Last Vital Signs Temp 36.4 C L 12/12/22 08:31 Pulse 96 H 10/13/22 08:31 Resp 21 10/13/22 08:31 BP 129/55 L 10/13/22 04:01 Pulse Ox 94 10/13/22 08:31 Laboratory Results - last 24 hr 10/12/22 10/12/22 10/12/22 11:55 11:55 11:55 WBC RBC Hgb Hct MCV MCH MCHC RDW Plt Count MPV Immature Gran % Neutrophils % Lymphocytes % Monocytes % Eosinophils % Basophils % Nucleated RBC % Absolute Neutrophils Absolute Lymphocytes Absolute Monocytes Absolute Eosinophils Absolute Basophils ESR PT INR APTT D-Dimer VBG pH 7.42 H VBG pCO2 56 H VBG pO2 104 VBG HCO3 36 H VBG Total CO2 34 H VBG O2 Saturation 98 VBG Base Excess 12 H VBG Lactate 0.8 Sodium Potassium Chloride Carbon Dioxide Anion Gap BUN Creatinine Est GFR (CKD-EPI 2020) Glucose Calcium Magnesium Total Bilirubin AST ALT Alkaline Phosphatase Troponin I C-Reactive Protein NT-Pro-B Natriuret Pep Total Protein Albumin Lipase Procalcitonin Urine Color Urine Clarity Urine pH Ur Specific [place] Urine Protein Urine Ketones Urine Blood Urine Nitrite Urine Bilirubin Urine Urobilinogen Ur Leukocyte Esterase Urine RBC Urine WBC Ur Epithelial Cells Urine Crystals Urine Bacteria Urine Casts Urine Mucus Ur Culture Indicated? Urine Glucose COVID-19 Source Nasopharynx SARS-CoV-2 (PCR) Positive A Influenza Type A (PCR) Negative Influenza Type B (PCR) Negative RSV (PCR) Negative 10/12/22 10/12/22 10/12/22 11:55 11:55 11:55 WBC 9.13 RBC 3.36 L Hgb 9.3 L Hct 30.5 L MCV 91 MCH 27.7 MCHC 30.5 L RDW 17.2 H Plt Count 185 MPV 10.7 Immature Gran % 0.3 Neutrophils % 84.3 Lymphocytes % 2.2 Monocytes % 11.7 Eosinophils % 1.4 Basophils % 0.1 Nucleated RBC % 0.0 Absolute Neutrophils 7.69 H Absolute Lymphocytes 0.20 L Absolute Monocytes 1.07 H Absolute Eosinophils 0.13 Absolute Basophils 0.01 ESR PT INR APTT D-Dimer VBG pH VBG pCO2 VBG pO2 VBG HCO3 VBG Total CO2 VBG O2 Saturation VBG Base Excess VBG Lactate Sodium 138 Potassium 5.1 Chloride 99 Carbon Dioxide 34.9 H Anion Gap 4.1 BUN 70 H Creatinine 2.7 H Est GFR (CKD-EPI 2020) 18.06 Glucose 87 Calcium 9.1 Magnesium 2.3 Total Bilirubin 0.6 AST 50 H ALT 66 H Alkaline Phosphatase 38 L Troponin I 1918 H* C-Reactive Protein 0.27 NT-Pro-B Natriuret Pep 92473 H Total Protein 7.4 Albumin 3.5 Lipase 175 Procalcitonin Urine Color Urine Clarity Urine pH Ur Specific [place] Urine Protein Urine Ketones Urine Blood Urine Nitrite Urine Bilirubin Urine Urobilinogen Ur Leukocyte Esterase Urine RBC Urine WBC Ur Epithelial Cells Urine Crystals Urine Bacteria Urine Casts Urine Mucus Ur Culture Indicated? Urine Glucose COVID-19 Source SARS-CoV-2 (PCR) Influenza Type A (PCR) Influenza Type B (PCR) RSV (PCR) 10/12/22 10/12/22 10/12/22 11:55 12:44 13:00 WBC RBC Hgb Hct MCV MCH MCHC RDW Plt Count MPV Immature Gran % Neutrophils % Lymphocytes % Monocytes % Eosinophils % Basophils % Nucleated RBC % Absolute Neutrophils Absolute Lymphocytes Absolute Monocytes Absolute Eosinophils Absolute Basophils ESR 30 PT INR APTT D-Dimer 589 H VBG pH VBG pCO2 VBG pO2 VBG HCO3 VBG Total CO2 VBG O2 Saturation VBG Base Excess VBG Lactate Sodium Potassium Chloride Carbon Dioxide Anion Gap BUN Creatinine Est GFR (CKD-EPI 2020) Glucose Calcium Magnesium Total Bilirubin AST ALT Alkaline Phosphatase Troponin I C-Reactive Protein NT-Pro-B Natriuret Pep Cancelled Total Protein Albumin Lipase Procalcitonin Urine Color Urine Clarity Urine pH Ur Specific [place] Urine Protein Urine Ketones Urine Blood Urine Nitrite Urine Bilirubin Urine Urobilinogen Ur Leukocyte Esterase Urine RBC Urine WBC Ur Epithelial Cells Urine Crystals Urine Bacteria Urine Casts Urine Mucus Ur Culture Indicated? Urine Glucose COVID-19 Source SARS-CoV-2 (PCR) Influenza Type A (PCR) Influenza Type B (PCR) RSV (PCR) 10/12/22 10/12/22 10/12/22 13:20 15:13 18:00 WBC RBC Hgb Hct MCV MCH MCHC RDW Plt Count MPV Immature Gran % Neutrophils % Lymphocytes % Monocytes % Eosinophils % Basophils % Nucleated RBC % Absolute Neutrophils Absolute Lymphocytes Absolute Monocytes Absolute Eosinophils Absolute Basophils ESR PT INR APTT D-Dimer VBG pH VBG pCO2 VBG pO2 VBG HCO3 VBG Total CO2 VBG O2 Saturation VBG Base Excess VBG Lactate Sodium Potassium Chloride Carbon Dioxide Anion Gap BUN Creatinine Est GFR (CKD-EPI 2020) Glucose Calcium Magnesium Total Bilirubin AST ALT Alkaline Phosphatase Troponin I 3712 H* 4184 H* C-Reactive Protein NT-Pro-B Natriuret Pep Total Protein Albumin Lipase Procalcitonin Urine Color Yellow Urine Clarity Clear Urine pH 6.5 Ur Specific [place] 1.015 Urine Protein 30 H Urine Ketones Negative Urine Blood Trace-intact H Urine Nitrite Negative Urine Bilirubin Negative Urine Urobilinogen 0.2 Ur Leukocyte Esterase Negative Urine RBC 0-2 Urine WBC Negative Ur Epithelial Cells Moderate Urine Crystals Negative Urine Bacteria Rare Urine Casts 0-2 Hyaline Urine Mucus Negative Ur Culture Indicated? No Urine Glucose 100 COVID-19 Source SARS-CoV-2 (PCR) Influenza Type A (PCR) Influenza Type B (PCR) RSV (PCR) 10/12/22 10/12/22 10/12/22 18:00 18:30 21:45 WBC RBC Hgb Hct MCV MCH MCHC RDW Plt Count MPV Immature Gran % Neutrophils % Lymphocytes % Monocytes % Eosinophils % Basophils % Nucleated RBC % Absolute Neutrophils Absolute Lymphocytes Absolute Monocytes Absolute Eosinophils Absolute Basophils ESR PT 10.4 INR 1.0 APTT 24.1 D-Dimer VBG pH VBG pCO2 VBG pO2 VBG HCO3 VBG Total CO2 VBG O2 Saturation VBG Base Excess VBG Lactate Sodium Potassium Chloride Carbon Dioxide Anion Gap BUN Creatinine Est GFR (CKD-EPI 2020) Glucose Calcium Magnesium Total Bilirubin AST ALT Alkaline Phosphatase Troponin I 3387 H* C-Reactive Protein NT-Pro-B Natriuret Pep Total Protein Albumin Lipase Procalcitonin 0.1 Urine Color Urine Clarity Urine pH Ur Specific [place] Urine Protein Urine Ketones Urine Blood Urine Nitrite Urine Bilirubin Urine Urobilinogen Ur Leukocyte Esterase Urine RBC Urine WBC Ur Epithelial Cells Urine Crystals Urine Bacteria Urine Casts Urine Mucus Ur Culture Indicated? Urine Glucose COVID-19 Source SARS-CoV-2 (PCR) Influenza Type A (PCR) Influenza Type B (PCR) RSV (PCR) 10/13/22 10/13/22 10/13/22 00:53 00:53 06:00 WBC RBC Hgb Hct MCV MCH MCHC RDW Plt Count MPV Immature Gran % Neutrophils % Lymphocytes % Monocytes % Eosinophils % Basophils % Nucleated RBC % Absolute Neutrophils Absolute Lymphocytes Absolute Monocytes Absolute Eosinophils Absolute Basophils ESR PT INR APTT 62.6 H D-Dimer VBG pH VBG pCO2 VBG pO2 VBG HCO3 VBG Total CO2 VBG O2 Saturation VBG Base Excess VBG Lactate Sodium Potassium Chloride Carbon Dioxide Anion Gap BUN Creatinine Est GFR (CKD-EPI 2020) Glucose Calcium Magnesium Total Bilirubin AST ALT Alkaline Phosphatase Troponin I 2602 H* 2245 H* C-Reactive Protein NT-Pro-B Natriuret Pep Total Protein Albumin Lipase Procalcitonin Urine Color Urine Clarity Urine pH Ur Specific [place] Urine Protein Urine Ketones Urine Blood Urine Nitrite Urine Bilirubin Urine Urobilinogen Ur Leukocyte Esterase Urine RBC Urine WBC Ur Epithelial Cells Urine Crystals Urine Bacteria Urine Casts Urine Mucus Ur Culture Indicated? Urine Glucose COVID-19 Source SARS-CoV-2 (PCR) Influenza Type A (PCR) Influenza Type B (PCR) RSV (PCR) 10/13/22 10/13/22 06:00 06:00 WBC 6.78 RBC 3.29 L Hgb 9.1 L Hct 29.9 L MCV 91 MCH 27.7 MCHC 30.4 L RDW 17.2 H Plt Count 166 MPV 10.9 Immature Gran % Neutrophils % Lymphocytes % Monocytes % Eosinophils % Basophils % Nucleated RBC % Absolute Neutrophils Absolute Lymphocytes Absolute Monocytes Absolute Eosinophils Absolute Basophils ESR PT INR APTT D-Dimer VBG pH VBG pCO2 VBG pO2 VBG HCO3 VBG Total CO2 VBG O2 Saturation VBG Base Excess VBG Lactate Sodium 140 Potassium 4.4 Chloride 99 Carbon Dioxide 34.1 H Anion Gap 6.9 BUN 68 H Creatinine 2.4 H Est GFR (CKD-EPI 2020) 20.80 Glucose 83 Calcium 8.5 Magnesium 2.1 Total Bilirubin 0.5 AST 63 H ALT 80 H Alkaline Phosphatase 41 L Troponin I C-Reactive Protein NT-Pro-B Natriuret Pep Total Protein 6.7 Albumin 3.2 L Lipase Procalcitonin Urine Color Urine Clarity Urine pH Ur Specific [place] Urine Protein Urine Ketones Urine Blood Urine Nitrite Urine Bilirubin Urine Urobilinogen Ur Leukocyte Esterase Urine RBC Urine WBC Ur Epithelial Cells Urine Crystals Urine Bacteria Urine Casts Urine Mucus Ur Culture Indicated? Urine Glucose COVID-19 Source SARS-CoV-2 (PCR) Influenza Type A (PCR) Influenza Type B (PCR) RSV (PCR) Reviewed Pertinent PMH: No
--- NOTE | 2022-10-13 09:56 | INITIAL_ITS ---
- If Service Date Differs Date of service: 10/13/22 Time of Service: 10:00 Care Management Initial Assess REASON FOR HOSPITALIZATION:: COVID-19, NSTEMI, CHF, PALAK PAST MEDICAL HISTORY/PAST SURGICAL HISTORY:: Medical History . Iron deficiency anemia. Surgical History . History of esophagogastroduodenoscopy (EGD) (07/30/18). S/P cholecystectomy. S/P colonoscopy (07/30/18). S/P tonsillectomy PREVIOUS FUNCTIONAL STATUS/SOCIAL/FAMILY SUPPORTS:: Beth lives alone in an apartment at [facility] in [facility]. She has 4 daughters but only one daughter, Maria Elena lives locally. Her other daughters reside in [place] and [place]. Beth shares she had a stroke in December of this year and has struggled to maintain at home since then as she fills up with fluid and has to return to the hospital for treatment. ADVANCE DIRECTIVES:: On file; daughter Lida Petit is appointed as Health Care Agent. COLST form also on file. Has patient been provided with info about the portal/API?: Yes Did the patient sign up for the portal?: Yes CODE STATUS:: DNR/DNI INSURANCE COVERAGE / FINANCIAL ISSUES:: Medicaid. Medicare CURRENT HOME/COMMUNITY SERVICES/EQUIPMENT:: O2, VNA RN, FWW PRIMARY CARE PHYSICIAN:: Katherine Andre POTENTIAL DISCHARGE NEEDS:: Evaluations for increased needs, resumption of community based supports including VNA RN and O2. PATIENT/FAMILY EDUCATION NEEDS:: Review of discharge instructions, discuss Ask Me Three. ANTICIPATED BARRIERS TO DISCHARGE:: None identified. TRANSPORTATION:: Via private vehicle with her daughter. PLAN:: Per MD, Beth will have an ECHO today. She remains in the ICU at this time. Beth will return home when ready per MD, anticipate resumption of community based supports including VNA RN and O2 as well as PCP follow up. She will transport via private vehicle with her daughter. CM continues to follow.
--- NOTE | 2022-10-13 10:30 | RT.EKG_ITS ---
APPROVED REPORT Exam: Resting ECG Reason for Exam: NSTEMI Patient Location: I HR:83 bpm ECG Measurements Heart Rate 83 AXIS MS 140 P 39 QRSd 100 QRS 12 QT 450 T 75 QTc 529 Conclusion Sinus rhythm...normal P axis, V-rate 50- 99 Probable left atrial enlargement...P >50mS, <-0.10mV V1 Nonspecific repol abnormality, lateral leads...ST dep, T neg, I aVL V5 V6 Prolonged QT interval...QTc >500mS
[2022-10-13] MEDS: Insulin Aspart 300 UNITS/3 ML PEN SC ×3 (12:12→22:10)
[2022-10-13 13:05] LABS: PTT Activated 88.7 sec (21.0-27.5)
[2022-10-13] MEDS: Metoprolol 12.5 MG TAB PO ×3 (14:40→21:43)
[2022-10-13] MEDS: REMDESIVIR 100 MG in Normal Saline 250 ML 250 MG IVPB (15:47)
[2022-10-13 20:06] LABS: PTT Activated 66.8 sec (21.0-27.5)
[2022-10-13] MEDS: Gabapentin 300 MG CAP PO (21:43)
[2022-10-13] MEDS: Atorvastatin 40 MG TAB 80 MG PO (21:43)
[2022-10-14] VITALS (30 sets, daily range): BP systolic 107–124; BP diastolic 45–58; PULSE 38–90; RESP 14–29; TEMP 36.1–36.7; O2SAT 90–98
--- NOTE | 2022-10-14 | DI.US_ITS ---
APPROVED REPORT EXAM: Comprehensive 2D, Doppler, and color-flow Echocardiogram Patient Location: In-Patient Room/Bed: [id number] Strapping Machine Operator: Chandni Ba RDCS (AE) Indications: NSTEMI Other Information Study Quality: Adequate Conclusion Moderately dilated left ventricle. Normal left ventricular wall thickness. Estimated ejection fract ion is 40% with global hypokinesis Right ventricle is normal in size and systolic function Left atrium is mildly dilated. The right atrium is normal in size. There is a small patent foramen ovale with [id number] flow The aortic valve is sclerotic and trileaflet without stenosis or regurgitation Mitral annular calcification. Moderate mitral regurgitation Normal tricuspid valve with mild regurgitation. Estimated right ventricular systolic pressure is 34 mmHg Small pericardial effusion Wall motion Left Ventricle Left ventricle is moderately dilated. Left ventricular systolic function is moderately decreased. The re is normal left ventricular wall thickness. There is global hypokinesis of the left ventricle. Ther e is no ventricular septal defect visualized. LVEF is 40%. Right Ventricle The right ventricle is normal size. The right ventricular systolic function is normal. The RVSP is 33 .4_ mmHg. Atria Left atrium is mildly dilated. The right atrium size is normal. Small PFO is noted. Aortic Valve The Aortic valve is sclerotic. Aortic valve is trileaflet. There is no aortic valvular stenosis. No aortic regurgitation is present. Mitral Valve Moderate mitral annular calcification. No evidence of mitral valve stenosis. Moderate mitral regurgit ation. Tricuspid Valve The tricuspid valve is normal in structure. There is no tricuspid valve stenosis. Mild tricuspid regu rgitation. Pulmonic Valve The pulmonary valve is normal in structure. There is no pulmonic valvular stenosis. Trace to mild pul dyana regurgitation. Great Vessels The aortic root is normal in size. The ascending aorta is normal in size. Aortic arch is not well vis ualized. IVC is normal in size and collapses >50% with inspiration. Pericardium Mild circumferential pericardial effusion. 2D Dimensions IVSD d PLAX 0.82 cm F: 0.6-1.0 LV Vol A2C d MOD 206.0 mL LVPW d PLAX 0.85 cm F: 0.6 - 1.0 LV Vol A4C d MOD 176.1 mL LVID d PLAX 5.77 cm F: 3.8 - 5.2 LA vol/ BSA A2C s A-L 57.7 mL/m2 LVDs 4.65 cm F: 2.2 - 3.5 LA vol/ BSA A4C s A-L 52.7 mL/m2 Ao Root d 2.82 cm F: 2.7 - 3.3 LA Vol/ BSA Biplane s A-L 55.5 mL/m2 RA Area A4C 18.89 cm2 LA Area A4C s MOD 27.56 cm2 RA Vol/ BSA A4C s A-L 29.7 mL/m2 LA Area A2C s MOD 29.04 cm2 Ao Asc Diam d 3.13 cm F: 2.3 - 3.1 LV EF A4C MOD 40.8 % LV EF Teichholz 38.4 % LV EF A2C MOD 40.1 % LVEF (Claudio's) 42.18 % F: 54 - 74 LV EF Biplane MOD 42.2 % LV Volume 149.98 mL F: 46 - 106 SV 82.62 mL LV Volume Index 79.77 mL/m2 F: 29 - 61 SV Index 43.89 mL/m2 LV Vol Biplane MOD 195.9 mL FS 18.85 % M-Mode TAPSE 2.02 cm (M/F) >1.7 LV Diastology MV E' medial 0.053 (>0.07 m/s) E/A Ratio 1.4 LV E/e MED 29.00 (<14) MV E Vmax 1.54 (0.4-1.3 m/s) MV E' lateral 0.070 (>0.1 m/s) MV A Vmax 1.10 (0.4-1.3 m/s) LV E/e LAT 21.95 (<14) MV E/A Ratio 1.34 MV E/E' medial 29.05 MV E/E' lateral 21.95 Aortic Valve LVOT Area 3.09 cm2 AoV Area Vmax 2.27 cm2 LVOT Vmax 1.40 m/s AoV Area/ BSA (Vmax) 1.21 cm2/m2 LVOT Mean Med. 1.18 m/s STEPHAN Mean Med. 2.70 cm2 LVOT Peak Grad 7.8 mmHg STEPHAN Mean Med. Index 1.44 cm2/m2 LVOT Mean Grad 5.8 mmHg LVOT VTI 0.318 m LVOT Diam s 1.95 cm AoV Vmax 1.90 m/s Velocity Ratio 0.74 AoV Mean Med. 1.35 m/s AoV Peak Grad 14.4 mmHg LVOT SV 98.29 mL AoV Mean Grad 8.3 mmHg AoV VTI 0.405 m AoV Area VTI 2.43 cm2 AoV Area/ BSA (VTI) 1.29 cm/m2 Mitral Valve MV DT 232 (160-240 msec) MV PHT 67 msec MV Area PHT 3.27 cm2 MV VTI 0.522 m MV Area VTI 1.88 (4.0-6.0 cm2) Pulmonary Valve PV Vmax 1.05 (0.5-1.5 m/s) RVOT Peak Gr. 3.49 mmHg PV Peak Grad 4.4 mmHg RVOT Mean Gr. 1.50 mmHg PV Mean Grad 2.1 mmHg RVOT VTI 0.163 m PV VTI 0.200 m RVOT Vmax 0.93 m/s Tricuspid Valve TR Peak Grad 30.4 mmHg TR Vmax 2.76 m/s RA Pressure 3.00 mmHg RVSP (TR) 33.4 mmHg
[2022-10-14 06:23] LABS: Abs Immature Grans 0.01 10^3/uL (0.0-0.06); Absolute Basophil Count 0.01 10^3/uL (0.0-0.2); Absolute Lymphocyte Count 0.83 10^3/uL (1.2-3.4); Absolute Monocyte Count 0.85 10^3/uL (0.1-0.8); Absolute Neutrophil Count 2.73 10^3/uL (1.2-6.7); Basophils % 0.2; HCT 30.6 % (36.0-46.0); HGB 9.4 g/dL (11.2-15.7); Immature Grans % 0.2; Lymphocytes % 18.7; MCH 27.7 pg (27.0-33.0); MCHC 30.7 % (32.0-36.0); MCV 90 fL (80-95); Monocytes % 19.2; Neutrophils % 61.7; Platelet Count 175 10^3/uL (130-400); RBC 3.39 10^6/uL (3.93-5.22); RDW 17.7 % (11.7-14.6); RDW-SD 58.4 fL; WBC 4.43 10^3/uL (4.4-10.8)
[2022-10-14 06:36] LABS: PTT Activated 73.8 sec (21.0-27.5)
[2022-10-14 06:38] LABS: Anion Gap 6.6 mmol/L (3-11); CO2 35.4 mmol/L (21.0-32.0); CREATININE 2.5 mg/dL (0.55-1.02); Calcium 8.6 mg/dL (8.5-10.1); Chloride 98 mmol/L (98-107); Estimated GFR 19.81 (mL/min/1.73m2); Glucose 94 mg/dL (74-106); Potassium 3.9 mmol/L (3.5-5.1); Sodium 140 mmol/L (136-145)
[2022-10-14 06:43] LABS: Calculated LDL 9 mg/dL (<100); Cholesterol 77 mg/dL (<200); HDL Cholesterol 56 mg/dL (40-60); Triglyceride 61 mg/dL (<150)
[2022-10-14 06:46] LABS: Hemoglobin A1C 6.8 % (<5.7)
[2022-10-14 06:47] LABS: BUN 83 mg/dL (7-18); Troponin I 1439 ng/L (<or=60)
[2022-10-14] MEDS: Clopidogrel 75 MG TAB PO (07:40)
[2022-10-14] MEDS: Metoprolol 12.5 MG TAB PO ×4 (07:40→20:59)
[2022-10-14] MEDS: Pantoprazole 40 MG TABCR PO (07:40)
[2022-10-14] MEDS: Dexamethasone 4 MG TAB 6 MG PO (07:40)
[2022-10-14] MEDS: Ferrous Sulfate 325 MG TAB PO (07:41)
[2022-10-14] MEDS: Cetirizine 10 MG TAB PO (07:41)
[2022-10-14] MEDS: Aspirin E.C. 81 MG TABEC PO (07:41)
[2022-10-14] MEDS: Furosemide 40 MG/4 ML VIAL IVP ×2 (07:42→17:04)
[2022-10-14] MEDS: Docusate Sodium 100 MG CAP PO (07:57)
--- NOTE | 2022-10-14 08:46 | CMPROGNOTE_ITS ---
- If Service Date Differs Date of service: 10/14/22 Time of Service: 08:46 Care Management Progress Note S/O:Beth remains in ICU and is being monitored and treated for Covid as well as CHF and PALAK. She has also had an NSTEMI. CM was unable to meet with Beth in person secondary to the Covid isolation and was unable to reach her by phone. Beth is afebrile and her heart rate and blood pressure are stable, although she is tachypneic and hypoxic. CM was able to talk to Beth's daughter Lida. She informed CM that Beth has been doing well at home. 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 They assist with clinical trial educator, shopping etc. She did state that Beth was unwell on Thursday and was unable to get off of her couch; she is not sure how long she was there but a friend found her on Thursday. Lida stated that Beth was unable to walk and acted much like she did when she had a stroke in December. A:Beth is a 72 year old woman admitted on 10/13/22 with Covid, NSTEMI P:Beth will return home when medically cleared by provider. Anticipate she will have resumption of community based supports including VNA RN and O2 as well as PCP follow up. She will transport via private vehicle with her daughter. CM will continue to support Beth and her discharge planning needs.
[2022-10-14 09:09] LABS: Lab Add On Test DONE
[2022-10-14 10:01] LABS: C-Reactive Protein 1.56 mg/dL (0.0-0.3)
[2022-10-14] MEDS: Zinc Sulfate 220 MG TAB PO (11:54)
[2022-10-14] MEDS: Insulin Aspart 300 UNITS/3 ML PEN SC ×3 (12:28→20:58)
--- NOTE | 2022-10-14 14:22 | IN_ITS ---
Date of service: 10/14/22 Time of Service: 14:22 PT Notes Visit Reasons: COVID-19,NSTEMI,CHF,PALAK Physical Therapy Inpatient Initial Evaluation Date: 10/14/2022 Referring Doctor:? Vivienne Hernandez MD PT Orders: PT CONSULT: Limited ability Precautions: COVID-19 infection. Activity as tolerated. On 2 L of oxygen via NC. Patient Profile/Admitting Diagnosis:? Patient is a 72-year-old female who presented to the ED on 10/12/2022 with generalized weakness due to low blood sugar, cough, and inability to walk. Patient is diagnosed with COVID-19 infection, and NSTEMI, heart failure with decreased ejection fraction, chronic kidney disease, type 2 diabetes mellitus, COPD, and polymyalgia rheumatica. PMHX: All Active Problems? COVID-19 (Acute) Non-ST elevation [place] (NSTEMI) (Acute) CKD (chronic kidney disease) stage 3, GFR 30-59 ml/min (Chronic) Type 2 diabetes mellitus with retinopathy of both eyes, with long-term current use of insulin (Chronic) CVA (cerebral vascular accident) (Acute ~12/2021) Heart failure with reduced ejection fraction (Chronic) Chronic obstructive pulmonary disease (Chronic) 09/2021- O2 dependent on 2 l/min (O2 sat at 83% RA) Polymyalgia rheumatica (Chronic) Carotid atherosclerosis (Chronic) Essential hypertension (Chronic) GERD (gastroesophageal reflux disease) (Chronic) Pulmonary nodule (Chronic) Nicotine dependence, cigarettes, uncomplicated (Chronic) Annual LDCTOsteoarthritis of hips, bilateral (Chronic) Diabetic nephropathy (Chronic) Diabetic retinopathy (Chronic) Ventral hernia (Chronic) Generalized anxiety disorder (Chronic) Benign positional vertigo (Chronic) 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 Iron deficiency anemia Surgical History? History of esophagogastroduodenoscopy (EGD) (07/30/18) S/P cholecystectomy S/P colonoscopy (07/30/18) S/P tonsillectomy Social History/Home Situation: Patient lives alone at the [address] here in [place] with a ramp to enter.? She now has a pole installed close to her bed to facilitate safe transfers and short distance walking.? Home is much more handicap- accessible with assistance from [employer]. ? She has a basement but she stresses that she does not need to go down as she has everything she needs on the main floor of the apartment.? Modified independent with all mobility ADL performance using FWW.? On chronic oxygen supplementation using 2L/min. Equipment Owned/DME: FWW, 4WW Subjective: Agreeable to consult. Still feels weak but is much more improved than 2 days ago on admission. Denies headache, chest pain, and lightheadedness throughout session. Objective: General Observation:?Telemetry monitoring in place. IV access in left ureter. Oxygen supplementation of 2 L/min via NC. Mental Status: Alert and oriented x 4 Pain: Denies headache, chest pain, and lightheadedness Vital Signs: WNL as closley monitore via tele with ambulation activity ROM: Right Upper Extremity: ? Shoulder Flexion WFL. Shoulder abduction WFL. Elbow flexion WFL. Wrist flexion WFL. Opening and closing of hand WFL. Left Upper Extremity:? Shoulder Flexion allows only up to 90 degrees. Shoulder abduction allows only up to 80 degrees. Elbow flexion WFL. Wrist flexion WFL. Opening and closing of hand WFL. Right Lower Extremity: Hip flexion WFL. Hip abduction WFL. Knee flexion WFL. Ankle dorsiflexion to neutral only. Ankle plantarflexion WFL. Left Lower Extremity: Hip flexion unable to bend beyond 90 due to left hip pain. Hip abduction WFL. Knee flexion WFL. Ankle dorsiflexion to neutral only. Ankle plantarflexion WFL. Strength: Right Upper Extremity: Shoulder flexors 4-/5. Shoulder abductors 4-/5. Elbow flexors 4/5. Elbow extensors 4/5. 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 Left Upper Extremity: Shoulder flexors 3-/5. Shoulder abductors 3-/5. Elbow flexors 4-/5. Elbow extensors 4-/5. 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 Right Lower Extremity: Hip flexors 3+/5. Hip abductors 4-/5. Knee flexors 4/5. Knee extensors 4-/5. Ankle dorsiflexors 3-/5. Ankle plantarflexors 4-/5. Left Lower Extremity:Hip flexors 3-/5. Hip abductors 3-/5. Knee flexors 3/5. Knee extensors 3/5. Ankle dorsiflexors 3-/5. Ankle plantarflexors 4/5. Sensation: Intact as to pain and pressure on bilateral lower extremities Bed Mobility/Transfers: Supine to sit standby assist Sit to stand standby assist with FWW Stand to sit standby assist Bed to chair?standby assist Gait: Patient tolerated level surface ambulation inside room?of about 20 feet using fr ont-wheeled walker with stand by assist.? Reciprocal step through gait pattern.? Terri decreased.? Denies headache, chest pain, and dizziness.? O2 saturation above 90% on 2 L/min. Balance: Static Sitting: Normal Dynamic Sitting: Normal Static Standing: Fair Dynamic Standing: Fair Special Tests: Mobility Limitations Standardized Measure [facility] 6 clicks Basic Mobility Inpatient Short Form: Raw Score: 18? CMS Score: 47% deficit? ? ? Informed Consent/Education: Patient was instructed in purpose of PT consult and plan of care. Agreeable to proceed with established PT POC to achieve personal goals. Assessment: Patient is a 72-year-old female who presented to the ED on 10/12/2022 with generalized weakness due to low blood sugar, cough, and inability to walk. Patient is diagnosed with COVID-19 infection, and NSTEMI, heart failure with decreased ejection fraction, chronic kidney disease, type 2 diabetes mellitus, COPD, and polymyalgia rheumatica. Patient presents with clinical signs and symptoms consistent with current/admitting diagnoses that have resulted to mobility limitations and gait instability as demonstrated by the following impairment level findings: 1.? Decreased strength to B LE major muscle groups 2.? Impaired standing balance 3.? Impaired activity tolerance 4.? Limitation of joint range of motion in left shoulder and left hip 5.? Shortness of breath Impairments are contributing to the following functional limitations: 1.? Inability to safely ambulate without assistive device 2.? Increase completion time for mobility ADL performance 3.? Increased fall risk Patient is assessed as a 91199 moderate complexity based on the following: History: 69-year-old female with impairment level findings, functional limitations, and [facility] deficit score of 21% Examination: Demonstrable impairment in strength, balance, and activity tolerance with underlying impairments and functional limitations as documented above Presentation: Evolving Decision Makin moderate complexity Goals: Goals X1 week 1. Supine-Sit independent 2. Sit-Supine independent 3. Sit-Stand independent 4. Stand-Sit independent 5. Bed-Chair independent 6. Chair-Bed independent 7. Independent gait on level surface with use of least restrictive device for at least 50 feet without report of pain nor dyspnea 8. Good static and dynamic standing balance/tolerance Plan of Care/Treatment Plan: 1-2x/day, 7 days/week x 1 week. Plan of care has been reviewed with the VEST TAILOR providing the service under Physical Therapy direction. Initiate Physical Therapy intervention for strengthening, bed mobility, transfers, gait, stairs, balance training, use of assistive device. DISCHARGE RECOMMENDATIONS: [] Home with no services [] [X] Home with services. Home when medically cleared by hospitalist. Recommend home health PT services in order to progress mobility level using least restrictive assistive ambulatory device, assess home safety, identify additional equipment needs, and establish a functional maintenance program that will increase ability of patient to remain at home. [] Home with outpatient PT [] [] SNF for continued rehabilitation [] [] Care Home Care [] [] SNF versus LTC based on ability to participate and progress [] TREATMENT CODE/TIME: 16848 x 20 minutes,? 59390 x 25 minutes beginning at 14:22 PM. Thank you for the opportunity to participate in the care of this patient. Nahed Miller PT, DPT, CLT [facility] [place], [place]
--- NOTE | 2022-10-14 15:19 | PHA.REVIEW2 ---
Pharmacy Admission Review - Admission Clinical Review (Last Reviewed 10/12/22 @ 19:03 by Selvin Jorge) COVID-19 (Acute) Non-ST elevation [place] (NSTEMI) (Acute) codeine Adverse Reaction (Severe, Verified 08/28/22 14:02) Cardiac Dysrythmia indomethacin Adverse Reaction (Intermediate, Verified 08/28/22 14:02) Cardiac Dysrythmia lisinopril Adverse Reaction (Verified 08/28/22 14:02) cough Resuscitation Status DNR/DNI Height 5 ft 7 in Weight 76.4 kg - Renal Dosing Renal Dosing: BUN 83 mg/dL (7-18) H* 10/14/22 05:18 Creatinine 2.5 mg/dL (0.55-1.02) H 10/14/22 05:18 Medications needing adjustments: Intervened (crcl ~ 21) List of meds needing interventions: lovenox adjusted to 30 mg daily - Anticoagulation Anticoagulation: Hgb 9.4 g/dL (11.2-15.7) L 10/14/22 05:18 Hct 30.6 % (36.0-46.0) L 10/14/22 05:18 Plt Count 175 10^3/uL (130-400) 10/14/22 05:18 INR 1.0 (0.9-1.1) 10/12/22 18:30 Creatinine 2.5 mg/dL (0.55-1.02) H 10/14/22 05:18 DVT Prophylaxis: Reviewed Medications: Enoxaparin (enoxaparin 30 mg daily starting tomorrow) Therapeutic Anticoagulation: Reviewed (heparin drip to stop after 48 hours, stop time entered for 1830 today. pt is on dual antiplatelet therapy, aspirin & plavix) - Opiate Usage Evaluate Pain Scale/Pains Meds: N/A - Relevant Labs ESR 30 mm/hr (0-30) 10/12/22 11:55 Sodium 140 mmol/L (136-145) 10/14/22 05:18 Potassium 3.9 mmol/L (3.5-5.1) 10/14/22 05:18 Chloride 98 mmol/L (98-107) 10/14/22 05:18 Magnesium 2.1 mg/dL (1.8-2.4) 10/13/22 06:00 C-Reactive Protein 1.56 mg/dL (0.0-0.3) H 10/14/22 05:18 Electrolytes, C-Reactive P, ESR: Reviewed - DM Control DM Control: Glucose 94 mg/dL (74-106) 10/14/22 05:18 Hemoglobin A1c 6.8 % (<5.7) H 10/14/22 05:18 Finger Stick Blood Glucose 74 Finger Stick Blood Glucose 142 Finger Stick Blood Glucose 142 Finger Stick Blood Glucose 142 Finger Stick Blood Glucose 72 Finger Stick Blood Glucose 72 DM Control: Reviewed (controlled on insulin aspart sliding scale. also takes glipizide, empagliflozin, insulin glargine at home (not ordered here)) - Cardiac Review Cardiac Review: Troponin I 1439 ng/L (<or=60) H* 10/14/22 05:18 NT-Pro-B Natriuret Pep Cancelled 10/12/22 12:44 BP, HR, EF%: Reviewed (? NSTEMI vs demand ischemia. troponin coming down) - Qtc Review QTc: Reviewed (prolonged Qtc = 529 (was 485 10/12)) If Elevated, List meds needing intervention: med list reviewed, it is unlikely current medications have contributed to QT prolongation. Review any new meds for QT prolonging risk - IV to PO Switch IV Medications: Reviewed (IV heparin stoping today. Remdesivir until 10/16. IV furosemide, Dr. Hernandez will consider changing to PO after seeing pt today. Otherwise meds are PO) - Home Meds Home Med List reviewed: Reviewed Relevent Home Meds Not ordered & why?: some antidiabetics (empagliflozin, glipizide, insulin glargine) not ordered, has been controlled on sliding scale insulin aspart - per note pt was having hypoglycemic spells at home, glipizide should not be restarted. Bevespi inhaler therapeutic sub to Stiolto. Prednisone 15 mg held, on dexamethasone 6 mg daily for COVID. Torsemide, spironolactone not ordered - receiving IV lasix BID - Current meds Current Medication Order Review: Reviewed Antibiotic Activity - Pharmacy Antibiotic Review Pharmacy Antibiotic Activity: Reviewed, no change (remdesivir for COVID, last dose 10/16)
[2022-10-14] MEDS: REMDESIVIR 100 MG in Normal Saline 250 ML 250 MG IVPB (16:58)
--- NOTE | 2022-10-14 17:00 | W.PM.PROGNOT ---
Date of Service Date of service: 10/14/22 Time of Service: 17:00 Assessment and Plan Assessment and plan (1) COVID-19: Start date: 10/12/22 Status: Acute Assessment and plan: Continue remdesivir, dexamethasone, IS, acapella, scheduled + prn bronchodilators. I added vitamin c, zinc, check vitamin D level. Wean O2 as tolerated. (2) Non-ST elevation [place] (NSTEMI): Status: Acute Assessment and plan: NSTEMI vs type 2 Deman ischemia. Evaluated by cardiology. Echocardiogram w/ LVEF of 40% (up from 35% in the past), global hypokinesis (does have a small PFO). Continue DAPT, BB, d/c heparin gtt as it has been about 48 hrs. Continue diuresis (switch to PO). (3) Heart failure with reduced ejection fraction: Status: Chronic Assessment and plan: As above. Continue metoprolol, diuresis. Consider resumption of home jardiance and entresto. (4) CKD (chronic kidney disease) stage 3, GFR 30-59 ml/min: Status: Chronic Assessment and plan: Switch to PO lasix and continue to monitor renal function. (5) Type 2 diabetes mellitus with retinopathy of both eyes, with long-term current use of insulin: Status: Chronic Assessment and plan: Continue SSI. Oral hypoglycemics are on hold. (6) Chronic obstructive pulmonary disease: Status: Chronic Assessment and plan: Oxygen dependent. Treat with scheduled + prn bronchodilators. Will check exercise oximetry tomorrow. Qualifiers: COPD type: emphysema Emphysema type: centrilobular Qualified Code(s): J43.2 - Centrilobular emphysema (7) Polymyalgia rheumatica: Status: Chronic Assessment and plan: Steroid dependent, usually on prednisone 15 mg daily. Will need a very slow steroid taper on discharge. (8) DVT prophylaxis: Status: Acute Assessment and plan: enoxaparin (9) Discharge planning issues: Status: Acute Assessment and plan: DNR/DNI OK tto transfer out of the ICU. Anticipate discharge home in the next 48 hrs. Subjective Subjective Interval history since last seen: She feels like ____. C/o cough (decreased). Denies dizziness, chest pain/discomfort/palpitations, nausea. C/o a little diarrhea today. States that she refused to take her iron pill here today - she takes it every other day and with a stool softener at home. We agreed that that's what I'll give her here. She would like to go home as soon as possible. She would like to have a repeat COVID test on this admission - we discussed that there is no point in repeating it sooner than 5 days from the original test. Exam Narrative Exam Narrative: General: Middle-aged female who is unhappy, A&Ox3, NAD HEENT: EOMI, MMM Heart: RRR, no m/r/g Lungs: DIminished breath sounds B Abdomen: soft, nontender, nondistended Extremities: +1 edema BLEs Objective Last Vital Signs Temp 36.1 C L 10/14/22 09:47 Pulse 84 10/14/22 12:30 Resp 16 10/14/22 12:30 BP 119/58 L 10/14/22 12:30 Pulse Ox 93 10/14/22 12:30 Laboratory Results - last 24 hr 10/13/22 10/14/22 10/14/22 19:31 05:18 05:18 WBC RBC Hgb Hct MCV MCH MCHC RDW Plt Count MPV Immature Gran % Neutrophils % Lymphocytes % Monocytes % Eosinophils % Basophils % Nucleated RBC % Absolute Neutrophils Absolute Lymphocytes Absolute Monocytes Absolute Eosinophils Absolute Basophils APTT 66.8 H Sodium Potassium Chloride Carbon Dioxide Anion Gap BUN Creatinine Est GFR (CKD-EPI 2020) Glucose Hemoglobin A1c 6.8 H Calcium Troponin I 1439 H* C-Reactive Protein Triglycerides 61 Total Cholesterol 77 LDL Cholesterol, Calc 9 HDL Cholesterol 56 Add-On Test Request 10/14/22 10/14/22 10/14/22 05:18 05:18 05:18 WBC 4.43 RBC 3.39 L Hgb 9.4 L Hct 30.6 L MCV 90 MCH 27.7 MCHC 30.7 L RDW 17.7 H Plt Count 175 MPV 11.0 Immature Gran % 0.2 Neutrophils % 61.7 Lymphocytes % 18.7 Monocytes % 19.2 Eosinophils % 0.0 Basophils % 0.2 Nucleated RBC % 0.0 Absolute Neutrophils 2.73 Absolute Lymphocytes 0.83 L Absolute Monocytes 0.85 H Absolute Eosinophils 0.00 Absolute Basophils 0.01 APTT 73.8 H Sodium 140 Potassium 3.9 Chloride 98 Carbon Dioxide 35.4 H Anion Gap 6.6 BUN 83 H* Creatinine 2.5 H Est GFR (CKD-EPI 2020) 19.81 Glucose 94 Hemoglobin A1c Calcium 8.6 Troponin I C-Reactive Protein Triglycerides Total Cholesterol LDL Cholesterol, Calc HDL Cholesterol Add-On Test Request 10/14/22 10/14/22 10/14/22 05:18 05:18 14:59 WBC RBC Hgb Hct MCV MCH MCHC RDW Plt Count MPV Immature Gran % Neutrophils % Lymphocytes % Monocytes % Eosinophils % Basophils % Nucleated RBC % Absolute Neutrophils Absolute Lymphocytes Absolute Monocytes Absolute Eosinophils Absolute Basophils APTT Cancelled Sodium Potassium Chloride Carbon Dioxide Anion Gap BUN Creatinine Est GFR (CKD-EPI 2020) Glucose Hemoglobin A1c Calcium Troponin I C-Reactive Protein 1.56 H Triglycerides Total Cholesterol LDL Cholesterol, Calc HDL Cholesterol Add-On Test Request DONE
--- NOTE | 2022-10-14 19:47 | W.PALLCONSUL ---
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 Palliative care team is being asked to see her today to join her treatment team and to be available for supportive care and help with medical decision making as her clinical course progresses. It does not seem that [facility] palliative care has been involved in her care in the past. But given her multiple comorbidities, we are happy to become involved in her care ongoing. Primary Care physician: [facility] CArdiology: Dr. Meneses Pulmonology: Dr. Hugo Neurology: Dr. Lyles R[facility]um: [facility] Impression of currents health status: I'm feeling better. I had a silent heart attack and they just happened to test me for COVID and test was positive. What bothers you the most: Noisy in the hopsital, difficult to sleep. Cannot ellicit medical sxs as bothersome What worries you the most: Staff seems not to want to help her at night. 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 4 daughters, 2 live in [place]. Multiple grandchildren and great-grandchildren. Lived in [place] when she was independent. Currently living in apartment in [facility]. 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 Transportation provided by home health as well. Denies alcohol or THC use. Continues to smoke, declines to tell me how much she is smoking. Enjoys having family and friends come and visit. Palliative performance scale: 50 Reports she is ambulatory in her apartment using her walker. She is able to dress herself. Bathes with assist. Able to prepare simple snacks and meals. Spiritual history: Deep belief in God, God very important to her, prays. Does not attend sikhism Palliative review of systems: Pain: NOne Dyspnea: NOne GI symptoms: Chornic diarhea alternating with constipation, which she attributes to iron supplements Appetite: Fine Depression: Denies Anxiety: None Emotional Distress: Denies Spiritual/Existential Distress: Denies : Denies Labs: Cr:elevated to 2.7 at admission (recent baseline 1.4-1.8 with occ bounces above 2) Liver panel: CBC: Chronic anemia with intermittent low iron indices Other: BNP over 10,00, not new, elevated troponin. Advanced Care Planning: Advanced Directive:ON file Health Care Agent: Daughters, [facility] form on file. COLST: On file from 02/21: DNI/DNR, +tranfer, +consider abx, no feeding tube. Assessment and Plan Assessment and plan (1) COVID-19 virus infection: Status: Acute Assessment and plan: Treatment as per hospitalist team. Patient will need to remain in isolation for prescribed amount of time and until testing is negative. Interesting to note that she elected not to be immunized despite her multiple risk factors. (2) Non-ST elevation IA (NSTEMI): Status: Acute Assessment and plan: Patient tells me she has never had a heart attack before. She describes this as a silent heart attack . Hospitalist asked me to discuss with her whether she would be agreeable to cardiac catheterization if recommended.? Patient's reply was that she was waiting to meet with her wafer fabrication operator, Dr. Meneses.? After listening to recommendations of cardiology, she would discuss this with her family and they would come to a decision on how to proceed. (3) Heart failure with reduced ejection fraction: Status: Chronic (4) Nicotine dependence, cigarettes, uncomplicated: Status: Chronic Assessment and plan: Patient not interested in discussing cessation at this time. (5) CKD (chronic kidney disease) stage 4, GFR 15-29 ml/min: Status: Acute Assessment and plan: Patient with history of acute worsening of renal failure around medical events, significant bump in creatinine upon admission. It is possible that renal failure may be significant life limiting problem for her going forward. (6) Advanced care planning/counseling discussion: Status: Acute Assessment and plan: Current COLST form was reviewed. Patient still concurs with her treatment wishes as per current form (DNR/DNI, transfer to the hospital, consider treatment with antibiotics based on goals, no feeding tube). She does not want to change her healthcare agents. Forms were not revised. (7) Palliative care patient: Status: Acute Assessment and plan: Should that palliative care team is available to follow her through this hospital admission and after she is discharged long-term. Given her comorbidities, she is a very appropriate patient for us to follow. We would work with [facility] chronic direct care worker, her choices for care providers, and her medical treatment team including PCP. She will think about this, not quite sure she needs this. Palliative care team will check back in with her in a few days. Please contact us if you would like us to meet with her sooner. PFSH All Active Problems (Updated 10/14/22 @ 20:16 by Sweetie Trejo MD) Palliative care patient (Acute) Advanced care planning/counseling discussion (Acute) CKD (chronic kidney disease) stage 4, GFR 15-29 ml/min (Acute) COVID-19 virus infection (Acute) Discharge planning issues (Acute) DVT prophylaxis (Acute) COVID-19 (Acute) Non-ST elevation IA (NSTEMI) (Acute) CKD (chronic kidney disease) stage 3, GFR 30-59 ml/min (Chronic) Type 2 diabetes mellitus with retinopathy of both eyes, with long-term current use of insulin (Chronic) CVA (cerebral vascular accident) (Acute ~12/2021) Heart failure with reduced ejection fraction (Chronic) Chronic obstructive pulmonary disease (Chronic) 09/2021- O2 dependent on 2 l/min (O2 sat at 83% RA) Polymyalgia rheumatica (Chronic) Carotid atherosclerosis (Chronic) Essential hypertension (Chronic) GERD (gastroesophageal reflux disease) (Chronic) Pulmonary nodule (Chronic) Nicotine dependence, cigarettes, uncomplicated (Chronic) Annual LDCT Osteoarthritis of hips, bilateral (Chronic) Diabetic nephropathy (Chronic) Diabetic retinopathy (Chronic) Ventral hernia (Chronic) Generalized anxiety disorder (Chronic) Benign positional vertigo (Chronic) 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 Father Diabetes Daughter No problems noted. Daughter No problems noted. Daughter No problems noted. Daughter No problems noted. 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 4 daughters Exam Narrative Exam Narrative: Pleasant, awake, alert and talkative elderly woman sitting on the edge of her bed in the intensive care unit with oxygen on via nasal cannula. No cough or dyspnea noted. Slightly pale. Speech is fluid. Affect is full. She has movement of both arms and legs. Results Last Vital Signs Temp 36.1 C L 10/14/22 09:47 Pulse 84 10/14/22 12:30 Resp 16 10/14/22 12:30 BP 119/58 L 10/14/22 12:30 Pulse Ox 93 10/14/22 12:30 Labs Result diagrams: 10/14/22 05:18 10/14/22 05:18 Labs: Laboratory Results - last 24 hr 10/13/22 10/14/22 10/14/22 19:31 05:18 05:18 WBC RBC Hgb Hct MCV MCH MCHC RDW Plt Count MPV Immature Gran % Neutrophils % Lymphocytes % Monocytes % Eosinophils % Basophils % Nucleated RBC % Absolute Neutrophils Absolute Lymphocytes Absolute Monocytes Absolute Eosinophils Absolute Basophils APTT 66.8 H Sodium Potassium Chloride Carbon Dioxide Anion Gap BUN Creatinine Est GFR (CKD-EPI 2020) Glucose Hemoglobin A1c 6.8 H Calcium Troponin I 1439 H* C-Reactive Protein Triglycerides 61 Total Cholesterol 77 LDL Cholesterol, Calc 9 HDL Cholesterol 56 Add-On Test Request 10/14/22 10/14/22 10/14/22 05:18 05:18 05:18 WBC 4.43 RBC 3.39 L Hgb 9.4 L Hct 30.6 L MCV 90 MCH 27.7 MCHC 30.7 L RDW 17.7 H Plt Count 175 MPV 11.0 Immature Gran % 0.2 Neutrophils % 61.7 Lymphocytes % 18.7 Monocytes % 19.2 Eosinophils % 0.0 Basophils % 0.2 Nucleated RBC % 0.0 Absolute Neutrophils 2.73 Absolute Lymphocytes 0.83 L Absolute Monocytes 0.85 H Absolute Eosinophils 0.00 Absolute Basophils 0.01 APTT 73.8 H Sodium 140 Potassium 3.9 Chloride 98 Carbon Dioxide 35.4 H Anion Gap 6.6 BUN 83 H* Creatinine 2.5 H Est GFR (CKD-EPI 2020) 19.81 Glucose 94 Hemoglobin A1c Calcium 8.6 Troponin I C-Reactive Protein Triglycerides Total Cholesterol LDL Cholesterol, Calc HDL Cholesterol Add-On Test Request 10/14/22 10/14/22 10/14/22 05:18 05:18 14:59 WBC RBC Hgb Hct MCV MCH MCHC RDW Plt Count MPV Immature Gran % Neutrophils % Lymphocytes % Monocytes % Eosinophils % Basophils % Nucleated RBC % Absolute Neutrophils Absolute Lymphocytes Absolute Monocytes Absolute Eosinophils Absolute Basophils APTT Cancelled Sodium Potassium Chloride Carbon Dioxide Anion Gap BUN Creatinine Est GFR (CKD-EPI 2020) Glucose Hemoglobin A1c Calcium Troponin I C-Reactive Protein 1.56 H Triglycerides Total Cholesterol LDL Cholesterol, Calc HDL Cholesterol Add-On Test Request DONE
[2022-10-14] MEDS: Ascorbic Acid 500 MG TAB 1000 MG PO (20:59)
[2022-10-14] MEDS: Gabapentin 300 MG CAP PO (20:59)
[2022-10-14] MEDS: Acetaminophen 325 MG TAB PO (20:59)
[2022-10-14] MEDS: Atorvastatin 40 MG TAB 80 MG PO (21:00)
[2022-10-15] VITALS (7 sets, daily range): BP systolic 96–104; BP diastolic 51–59; PULSE 66–88; RESP 14–22; TEMP 36–36.5; O2SAT 91–983
[2022-10-15 07:05] LABS: Abs Immature Grans 0.02 10^3/uL (0.0-0.06); Absolute Eosinophil Count 0.05 10^3/uL (0.0-0.7); Absolute Lymphocyte Count 1.07 10^3/uL (1.2-3.4); Absolute Monocyte Count 0.63 10^3/uL (0.1-0.8); Absolute Neutrophil Count 2.24 10^3/uL (1.2-6.7); Eosinophils % 1.2; HCT 28.9 % (36.0-46.0); HGB 8.9 g/dL (11.2-15.7); Immature Grans % 0.5; Lymphocytes % 26.7; MCH 27.4 pg (27.0-33.0); MCHC 30.8 % (32.0-36.0); MCV 89 fL (80-95); MPV 10.9 fL (8.0-11.0); Monocytes % 15.7; Neutrophils % 55.9; Platelet Count 146 10^3/uL (130-400); RBC 3.25 10^6/uL (3.93-5.22); RDW 17.5 % (11.7-14.6); RDW-SD 57.3 fL; WBC 4.01 10^3/uL (4.4-10.8)
[2022-10-15 07:09] LABS: INR 1.1 (0.9-1.1); Prothrombin Time 10.7 sec (9.3-11.0)
[2022-10-15 07:23] LABS: ALT 61 U/L (14-59); AST 50 U/L (15-37); Alkaline Phosphatase 35 U/L (46-116); Anion Gap 7.3 mmol/L (3-11); Bilirubin, Direct 0.1 mg/dL (0.0-0.2); Bilirubin, Total 0.4 mg/dL (0.2-1.0); CO2 30.7 mmol/L (21.0-32.0); CREATININE 2.7 mg/dL (0.55-1.02); Calcium 8.3 mg/dL (8.5-10.1); Chloride 100 mmol/L (98-107); Estimated GFR 18.06 (mL/min/1.73m2); Glucose 84 mg/dL (74-106); Potassium 4.3 mmol/L (3.5-5.1); Sodium 138 mmol/L (136-145); Total Protein 6.3 g/dL (6.4-8.2)
[2022-10-15 07:27] LABS: BUN 91 mg/dL (7-18)
[2022-10-15] MEDS: Tiotropium/Olodaterol 10 PUFF INHALER 2 PUFF IH (08:06)
--- NOTE | 2022-10-15 08:44 | RESPIRATORY ---
Pt's baseline is 2L O2 via nasal cannula 25/05. Pt gets her home oxygen through the [place].
[2022-10-15] MEDS: Pantoprazole 40 MG TABCR PO (08:55)
[2022-10-15] MEDS: Metoprolol 12.5 MG TAB PO (08:55)
[2022-10-15] MEDS: Clopidogrel 75 MG TAB PO (08:56)
[2022-10-15] MEDS: Ascorbic Acid 500 MG TAB 1000 MG PO (08:56)
[2022-10-15] MEDS: Dexamethasone 4 MG TAB 6 MG PO (08:56)
[2022-10-15] MEDS: Furosemide 40 MG TAB PO (08:58)
[2022-10-15] MEDS: Aspirin E.C. 81 MG TABEC PO (08:58)
[2022-10-15] MEDS: Cetirizine 10 MG TAB PO (08:58)
[2022-10-15] MEDS: Enoxaparin 30 MG/0.3 ML SYR SC (08:59)
[2022-10-15 09:12] LABS: Vitamin D 25 Total 39.6 ng/mL (30-100)
--- NOTE | 2022-10-15 09:32 | PDOC.CMPRO ---
- If Service Date Differs Date of service: 10/15/22 Time of Service: 09:32 Care Management Progress Note S/O:Beth A:Beth is a 72 year old woman admitted on 10/13/22 with Covid, NSTEMI P:Beth will return home when medically cleared by provider. Anticipate she will have resumption of community based supports including VNA RN and O2 as well as PCP follow up. She will transport via private vehicle with her daughter. CM will continue to support Beth and her discharge planning needs.
--- NOTE | 2022-10-15 11:35 | PT.INTREAT ---
PT Notes Visit Reasons: COVID-19,NSTEMI,CHF,PALAK ate: 05/06/2022 PRECAUTIONS: Activity as tolerated SUBJECTIVE: Pt sitting EOB, pt reports that she is very exhausted from the room change, pt reports that she is waiting for DC to go home this afternoon, pt agreed to participate with therapy. OBJECTIVE:? BED MOBILITY/TRANSFERS? Sit-stand: I? Stand-sit: I Bed-chair: I Chair-bed: I ? GAIT? Assistive Device: 4WW ? Weight bearing: Full Assist: Supervision/tube management ? Distance: 20' ? Deviation: Slow pacing, seated rest x1, 3L O2 ? VITALS:? SaO2: 95% on 3L O2 with gait training ? THEREX: Patient was instructed in a LE strengthening program, completed in a seated position, to include: ankle pumps, heel raises, LAQ, hip flexion and hip abduction. ? ASSESSMENT:? Patient tolerated session well, pt refused further engagement after there. PLAN: Patient to DC with home health. TREATMENT CODE/TIME: 25 minutes; [id number], [id number] (11:19)
[2022-10-15] MEDS: Zinc Sulfate 220 MG TAB PO (12:28)
[2022-10-15] MEDS: Insulin Aspart 300 UNITS/3 ML PEN SC (12:30)
--- NOTE | 2022-10-15 12:34 | PDOC.CMPRO ---
- If Service Date Differs Date of service: 10/15/22 Time of Service: 12:34 Care Management Progress Note S/O:Beth remains in ICU and is being monitored and treated for Covid as well as CHF and PALAK. She has also had an NSTEMI. CM was unable to meet with Beth in person secondary to the Covid isolation. CM previously spoke with Beth's daughter Lida. She informed CM that Beth has been doing well at home. She has detention medicaid now and has caregivers 5 days a week through [employer]. They assist with ground water pump installer, shopping etc. She did state that Beth was unwell on Thursday and was unable to get off of her couch; she is not sure how long she was there but a friend found her on Thursday. Lida stated that Beth was unable to walk and acted much like she did when she had a stroke in December. A:Beth is a 72 year old woman admitted on 10/13/22 with Covid, NSTEMI P:Beth will return home when medically cleared by provider. Anticipate she will have resumption of community based supports including VNA RN and O2 as well as PCP follow up. She will transport via private vehicle with her daughter. CM will continue to support Beth and her discharge planning needs.
--- NOTE | 2022-10-15 12:39 | W.PM.DS.N ---
Date of service: 10/15/22 Time of Service: 12:39 DS: Diagnosis Discharge Diagnosis (1) COVID-19 virus infection: Status: Acute (2) Non-ST elevation AL (NSTEMI): Status: Acute (3) Heart failure with reduced ejection fraction: Status: Chronic (4) CKD (chronic kidney disease) stage 4, GFR 15-29 ml/min: Status: Acute (5) Chronic obstructive pulmonary disease: Status: Chronic (6) Chronic respiratory failure with hypoxia: Status: Acute (7) Type 2 diabetes mellitus with retinopathy of both eyes, with long-term current use of insulin: Status: Chronic (8) Polymyalgia rheumatica: Status: Chronic (9) Essential hypertension: Status: Chronic (10) CKD (chronic kidney disease) stage 3, GFR 30-59 ml/min: Status: Chronic (11) Nicotine dependence, cigarettes, uncomplicated: Status: Chronic Discharge Plan Disposition Patient Disposition: Home W/Home Health Services Condition: Stable Discharge Details Reason For Visit: COVID-19,NSTEMI,CHF,PALAK Admit Date/Time: 10/12/22 18:38 Admit Provider: Selivn Jorge Attending Provider: Selvin Jorge [facility] Course: Ms Pratt is a 72 year old female with PMHx of oxygen-dependent COPD, on 2L of O2 by [place], Chronic systolic CHF (previous LVEF of 35%, 40% on this admission), IDDM2, HTN, CKD III, who was admitted to [facility] ICU on 10/12/22 with an NSTEMI in setting of COVID-19 illness. The patient was started on dual antiplatelet therapy as well as heparin gtt. She was also initiated on dexamethasone and remdesivir. She was evaluated by cardiology who felt that the patient was likely having a type 2 NSTEMI event and medical therapy was recommended, as per the patient's goals of care. The patient completed 48 hrs of heparin gtt without chest pain. Her echo was repeated and showed LVEF of 40% with global hypokinesis, up from LVEF of 35% earlier this year. She as also treated with a high dose statin and beta blockers. The patient was transferred out of the ICU to medical surgical floor on 10/15/22. She does have evidence of PALAK on CKD on this admission, but does not want to wait to obtain a renal ultrasound in house and would rather do this as outpatient. Her PCP would have to follow up the findings. Her Cr on discharge is 2.7. It is possibly cardiorenal. Her home diuretics as well as entresto are being resumed, but we do ask that home health draw a BMP on 10/17/22 to reassess her Cr, with results going to her PCP. The patient's oral hypoglycemics were held on this admission as was her long acting insulin, which she did not require on this admission. Her Jardiance is getting resumed on discharge for the CHF, but with a warning to d/c it if her BGs drop to 70 or below. Her lantus and glipizide have been discontinued. The patient was evaluated by PT who recommend home health PT. We feel she would also benefit from nursing. She should follow up with her PCP in 1-2 weeks as well as with cardiology. She should self isolate through 10/17/22. Because the patient is interested in retesting herself for COVID-19, a take-home test for COVID-19 is being provided on discharge. Care for patient as well as completion of her discharge summary on day of discharge took 60 minutes. Case and instructions were also discussed with her daughter Keri. Home Meds and New Rx's Prescriptions: New clopidogrel 75 mg Tablet 75 mg PO DAILY Qty: 30 0RF ascorbic acid (vitamin C) [Vitamin C] 500 mg Tablet 1,000 mg PO BID Qty: 28 0RF zinc sulfate [Zinc-220] 50 mg zinc (220 mg) Capsule 220 mg PO DAILY@1030 Qty: 7 0RF metoprolol succinate [Toprol XL] 50 mg tablet extended release 24 hr 50 mg PO DAILY Qty: 30 0RF pantoprazole 40 mg Tablet,Delayed Release (Dr/Ec) 40 mg PO DAILY@0730 Qty: 30 0RF Continued acetaminophen 500 mg tablet 1,000 mg PO Q6H PRN Label Comments: Max 6 tabs daily per pt cetirizine 10 mg tablet 10 mg PO DAILY Qty: 90 3RF albuterol sulfate 90 mcg/actuation HFA aerosol inhaler 2 puff inhalation Q6H PRN (Reason: shortness of breath or wheezing) Qty: 18 4RF aspirin 81 mg tablet,delayed release (DR/EC) 81 mg PO DAILY Qty: 90 3RF atorvastatin 80 mg tablet 80 mg PO QPM Qty: 90 3RF ferrous sulfate 325 mg (65 mg iron) tablet,delayed release (DR/EC) 325 mg PO DAILY Qty: 90 3RF fluticasone propionate [Flonase Allergy Relief] 50 mcg/actuation spray,suspension 2 spray intranasal DAILY PRN (Reason: allergy symptoms) Qty: 16 4RF Rx Instructions: administer into each nostril Bevespi Aerosphere 9-4.8 mcg HFA aerosol inhaler 1 puff inhalation BID Qty: 10.7 4RF Hold Instructions: Has not started and does not wish to for now Rx Instructions: 1 puff twice a day insulin aspart U-100 100 unit/mL (3 mL) insulin pen 1 sliding scale dose subcut TID Qty: 9 3RF Rx Instructions: Sliding Scale Insulin Instructions 60-124 = 0 126-150 = 4 151-200 = 6 201-300 = 8 301-350 = 10 351-400 = 12 loperamide-simethicone 2-125 mg tablet 2 tab PO Q3H PRN Rx Instructions: do not exceed 4 tabs in 24 hrs Antacid Calcium 215 mg calcium (500 mg) tablet,chewable 215 mg PO BID PRN Entresto 24-26 mg tablet 1 tab PO BID Qty: 90 4RF docusate sodium 100 mg capsule 100 mg PO DAILY empagliflozin 10 mg tablet 10 mg PO DAILY Qty: 90 3RF gabapentin 300 mg capsule 300 mg PO QHS Qty: 90 3RF spironolactone 25 mg tablet 25 mg PO DAILY Qty: 90 3RF torsemide 20 mg tablet 20 mg PO BID Qty: 180 3RF cholecalciferol (vitamin D3) [Vitamin D3] 25 mcg (1,000 unit) Capsule 25 mcg PO DAILY Changed prednisone 5 mg Tablet See Rx Instructions .ROUTE .COMPLEX Qty: 126 0RF Rx Instructions: 40 mg PO daily x 2 days, then 35 mg PO daily x 5 days, then 30 mg PO daily x 5 days, then 25 mg PO daily x 5 days, then 20 mg PO daily x 5 days, then resume 15 mg PO daily. Discontinued glipizide 5 mg tablet 2.5 mg PO DAILY Qty: 45 3RF Rx Instructions: Half a tablet daily insulin glargine [Lantus Solostar U-100 Insulin] 100 unit/mL (3 mL) insulin pen 30 unit subcut QAM Qty: 9 3RF omeprazole 20 mg capsule,delayed release(DR/EC) 20 mg PO BID No Action (DME) Dexcom G6 Transmitter Device See Rx Instructions .Route Qty: 1 4RF Rx Instructions: Continuous glucose monitor (DME) Dexcom G6 Assistant Merchandiser Misc See Rx Instructions .Route Qty: 1 3RF Rx Instructions: Continuous glucose monitor (DME) Dexcom G6 Sensor Device See Rx Instructions .Route Qty: 3 3RF Rx Instructions: Continuous glucose monitor (DME) BD AutoShield Duo Pen Needle 30 gauge x 3/16 needle See Rx Instructions .Route Qty: 360 3RF Rx Instructions: Use with insulin pens four times a day (DME) OneTouch Ultra Test Strip See Rx Instructions .MEDSUPPLY Qty: 400 3RF Rx Instructions: Check blood sugar four times a day (DME) blood-glucose meter [OneTouch Ultra2 Meter] Kit See Rx Instructions .MEDSUPPLY Qty: 1 2RF Rx Instructions: Check blood sugar twice a day (DME) Aerochamber MV Spacer See Rx Instructions .ROUTE .MEDSUPPLY Qty: 2 4RF Rx Instructions: Use with inhalers (DME) lancets [OneTouch Delica Plus Lancet] 33 gauge misc See Rx Instructions .MEDSUPPLY Qty: 300 3RF Rx Instructions: Check blood sugar four times daily Discharge Instructions Instructions: Metoprolol (By mouth), Clopidogrel (By mouth), Pantoprazole (By mouth), Heart Attack (DC), Heart Healthy Diet (DC), COVID-19 (Coronavirus Disease 2019) (DC) Additional Instructions: Continue to self-isolate for 5 days after testing positive for COVID-19 (10/17/22). You may retest for COVID-19 at that time. Finish your prednisone taper as prescribed. Follow up with your PCP and with cardiology. Follow up for your renal ultrasound. Return to the hospital with any fever, bleeding, chest pain, or shortness of breath. Important: we stopped your long acting insulin and glipizide because your blood sugars have not been high. Jardiance is being resumed on discharge, but if you notice blood sugars of 70 or lower, you should stop taking it. Care Plan Goals: Home with new home health nursing and physical therapy. Stand Alone Forms: Nursing Discharge Form Referrals: Adjovu,Katherine, BARREL FILLER [Primary Care Provider] - 10/22/22 10:20 am Sujatha Meneses MD [ [facility] STAFF PHYSICIAN] - 10/24/22 9:00 am Activity:: Activity as Tolerated Equipment/Supplies:: No Equipment Needed Diet:: carb consistent heart healthy Discharge Orders Discharge Orders: Discharge Order (Routine); Ordered 10/15/22 Ordered By: Vivienne Hernandez Other Ambulatory Orders: US renal (Routine) Timeframe: 1 Week Facility: [facility] - Location: DIAGNOSTIC IMAGING Ordered By: Vivienne Hernandez DS: Summary Time Spent with Patient providing and/or coordinating discharge services: Greater than 30 minutes Status at Discharge Functional status at discharge: uses cane/walker Overall status at discharge: patient is progressing back to baseline Mental Status: mental status grossly normal Speech and Movement: speech and movement normal Mood: congruent mood Affect: normal affect Exam Narrative Exam Narrative: Patient's visit happened over the phone today due to patient's diagnosis of COVID-19 and medical improvement. She was A&Ox3, exhibited no dyspnea or tachypnea, verbalized understanding of my instructions. Psych Mental Status: mental status grossly normal Speech and Movement: speech and movement normal Mood: congruent mood Affect: normal affect DS: Data Vitals/I&O Vitals and I&O: Vital Signs Temperature 36.5 C 10/15/22 11:30 Temperature Source Tympanic 10/15/22 11:30 Pulse 75 10/15/22 11:30 Pulse Rhythm Regular 10/15/22 10:29 Pulse 38 L 10/14/22 22:00 Respiratory Rate 18 10/15/22 11:30 Respiratory Effort 10/15/22 10:29 Respiratory Depth Normal 10/15/22 10:29 Respiratory Pattern Normal 10/15/22 10:29 Blood Pressure 102/59 L 10/15/22 11:30 Blood Pressure Mean 65 10/14/22 21:06 Blood Pressure Position Sitting 10/14/22 09:47 Pulse Oximetry 983 H 10/15/22 11:30 Oxygen Delivery Method Nasal Cannula 10/15/22 11:30 Oxygen Flow Rate 2 10/15/22 11:30 Pain Level 0 10/15/22 08:00 Comment 10/12/22 11:27 Intake & Output 10/14/22 10/15/22 10/15/22 23:59 11:59 23:59 Intake Total 728.067 / 1026.200 380 / 380 Output Total 775 / 1475 1000 / 1000 Balance -46.933 / -448.800 -620 / -620 Weight 76.4 kg Intake: IV 328.067 / 426.200 10 Oral 400 / 600 370 / 370 Output: Urine 775 / 1475 1000 / 1000 Other: Urine Color Pale Yellow Yellow Urine Appearance Clear Clear Urine Odor None Comment pt sat on commode, no void Stool Size Smear Moderate Stool Characteristics Formed Soft Brown Voiding Methods Bedside Commode Bedside Commode Data Completed and Pending Completed studies during hospitalization [Text1]: CXR 10/12/22: Overall there has been a slight improvement in the appearance of the lungs since 05/09/2022 particularly noted in the right lung base.? Echo 10/14/22: Moderately dilated left ventricle.? Normal left ventricular wall thickness.? Estimated ejection fraction is 40% with global hypokinesis Right ventricle is normal in size and systolic function Left atrium is mildly dilated.? The right atrium is normal in size.? There is a small patent foramen ovale with [id number] flow The aortic valve is sclerotic and trileaflet without stenosis or regurgitation Mitral annular calcification.? Moderate mitral regurgitation Normal tricuspid valve with mild regurgitation.? Estimated right ventricular systolic pressure is 34 mmHg Small pericardial effusion Pending studies at discharge: US renal Labs on day of discharge: Labs from last 24 hours 10/15/22 10/15/22 10/15/22 06:40 06:40 06:40 WBC 4.01 L RBC 3.25 L Hgb 8.9 L Hct 28.9 L MCV 89 MCH 27.4 MCHC 30.8 L RDW 17.5 H Plt Count 146 MPV 10.9 Immature Gran % 0.5 Neutrophils % 55.9 Lymphocytes % 26.7 Monocytes % 15.7 Eosinophils % 1.2 Basophils % 0.0 Nucleated RBC % 0.0 Absolute Neutrophils 2.24 Absolute Lymphocytes 1.07 L Absolute Monocytes 0.63 Absolute Eosinophils 0.05 Absolute Basophils 0.00 PT 10.7 INR 1.1 APTT Sodium Potassium Chloride Carbon Dioxide Anion Gap BUN Creatinine Est GFR (CKD-EPI 2020) Glucose Calcium Magnesium Total Bilirubin Conjugated Bilirubin AST ALT Alkaline Phosphatase Total Protein Albumin 25-OH Vitamin D Total 39.6 10/15/22 10/14/22 06:40 14:59 WBC RBC Hgb Hct MCV MCH MCHC RDW Plt Count MPV Immature Gran % Neutrophils % Lymphocytes % Monocytes % Eosinophils % Basophils % Nucleated RBC % Absolute Neutrophils Absolute Lymphocytes Absolute Monocytes Absolute Eosinophils Absolute Basophils PT INR APTT Cancelled Sodium 138 Potassium 4.3 Chloride 100 Carbon Dioxide 30.7 Anion Gap 7.3 BUN 91 H* Creatinine 2.7 H Est GFR (CKD-EPI 2020) 18.06 Glucose 84 Calcium 8.3 L Magnesium 2.0 Total Bilirubin 0.4 Conjugated Bilirubin 0.1 AST 50 H ALT 61 H Alkaline Phosphatase 35 L Total Protein 6.3 L Albumin 3.0 L 25-OH Vitamin D Total Preliminary micro results at discharge 10/12/22 12:42 Blood Culture - Preliminary Blood NO GROWTH 48 HOURS 10/12/22 12:32 Blood Culture - Preliminary Blood NO GROWTH 48 HOURS PFSH All Active Problems (Updated 10/15/22 @ 13:32 by Vivienne Hernandez MD) Acute kidney injury superimposed on chronic kidney disease (Acute) Chronic respiratory failure with hypoxia (Acute) Palliative care patient (Acute) Advanced care planning/counseling discussion (Acute) CKD (chronic kidney disease) stage 4, GFR 15-29 ml/min (Acute) COVID-19 virus infection (Acute) Discharge planning issues (Acute) DVT prophylaxis (Acute) COVID-19 (Acute) Non-ST elevation AL (NSTEMI) (Acute) CKD (chronic kidney disease) stage 3, GFR 30-59 ml/min (Chronic) Type 2 diabetes mellitus with retinopathy of both eyes, with long-term current use of insulin (Chronic) CVA (cerebral vascular accident) (Acute ~12/2021) Heart failure with reduced ejection fraction (Chronic) Chronic obstructive pulmonary disease (Chronic) 09/2021- O2 dependent on 2 l/min (O2 sat at 83% RA) Polymyalgia rheumatica (Chronic) Carotid atherosclerosis (Chronic) Essential hypertension (Chronic) GERD (gastroesophageal reflux disease) (Chronic) Pulmonary nodule (Chronic) Nicotine dependence, cigarettes, uncomplicated (Chronic) Annual LDCT Osteoarthritis of hips, bilateral (Chronic) Diabetic nephropathy (Chronic) Diabetic retinopathy (Chronic) Ventral hernia (Chronic) Generalized anxiety disorder (Chronic) Benign positional vertigo (Chronic) 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 Father Diabetes Daughter No problems noted. Daughter No problems noted. Daughter No problems noted. Daughter No problems noted. 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 Pets and animals: Yes Pets and animals: cat(s) Current gender identity: female What type of physical activity do you participate in: none Irma/Alevism: Zoroastrianism Special irma needs: No Do you feel safe at home: Yes Do you feel safe in your relationship?: Yes Additional Social history: Lives alone in apartment at [place]. 4 daughters
--- NOTE | 2022-10-15 12:48 | PDOC.CMDIS ---
- If Service Date Differs Date of service: 10/15/22 Time of Service: 12:48 LACE Index Scoring Tool - Questions: Length of Stay (in days): 3 Acuity (Admit via E.D.?): Yes Comorbidities: Diabetes w/o Complication E.D. Visits: 5 - Answers: Total Score: 11 Risk of Readmission: High Risk Care Management Discharge Reason for Hospitalization: COVID-19, NSTEMI, CHF, PALAK Discharge Plan: Beth will return home when medically cleared by provider. Anticipate she will have resumption of community based supports including VNA RN and O2 as well as PCP follow up. She will transport via private vehicle with her daughter. Patient/Family Education Needs: Review discharge instructions, discuss Ask Me Three. Services Needed at Discharge: Home Health Care Services
--- NOTE | 2022-10-15 14:29 | PDOC.HHF2F ---
Home Health Referral Home Health Orders Clinical synopsis of why skilled professionals are needed: Ms Pratt is a 72 year old female with PMHx of oxygen-dependent COPD,? on 2L of O2 by [place], Chronic systolic CHF (previous LVEF of 35%, 40% on this admission), IDDM2, HTN, CKD III, who was admitted to [facility] ICU on 10/12/22 with an NSTEMI in setting of COVID-19 illness. The patient was started on dual antiplatelet therapy as well as heparin gtt. She was also initiated on dexamethasone and remdesivir. She was evaluated by cardiology who felt that the patient was likely having a type 2 NSTEMI event and medical therapy was recommended, as per the patient's goals of care. The patient completed 48 hrs of heparin gtt without chest pain. Her echo was repeated and showed LVEF of 40% with global hypokinesis, up from LVEF of 35% earlier this year. She as also treated with a high dose statin and beta blockers. The patient was transferred out of the ICU to medical surgical floor on 10/15/22. She does have evidence of PALAK on CKD on this admission, but does not want to wait to obtain a renal ultrasound in house and would rather do this as outpatient. Her PCP would have to follow up the findings. Her Cr on discharge is 2.7. It is possibly cardiorenal. Her home diuretics as well as entresto are being resumed, but we do ask that home health draw a BMP on 10/17/22 to reassess her Cr, with results going to her PCP. The patient's oral hypoglycemics were held on this admission as was her long acting insulin, which she did not require on this admission. Her Jardiance is getting resumed on discharge for the CHF, but with a warning to d/c it if her BGs drop to 70 or below. Her lantus and glipizide have been discontinued. The patient was evaluated by PT who recommend home health PT. We feel she would also benefit from nursing. She should follow up with her PCP in 1-2 weeks as well as with cardiology. She should self isolate through 10/17/22. Because the patient is interested in retesting herself for COVID-19, a take-home test for COVID-19 is being provided on discharge. Medical diagnosis necessitation home health referral: NSTEMI, COVID-19, acute on chronic kidney failure. Registered Nurse: Check all that apply Instruct on new or changed medication(s)/assess compliance: Ordered Assess for exacerbation of medical condition, instruct patient/caregivers on signs and symptoms to report for early detection: Ordered Other: BMP on 10/17/22 to assess Cr (PALAK on CKD) Physical Therapist: Check all that apply Increase strength & endurance for safe mobility at home: Ordered To design/establish home maintenance program: Ordered Fall reduction therapy program for patient with history of frequent falls: Ordered Home safety evaluation and teaching/gait training including stair management (if applicable): Ordered Better Breathing Program: Ordered Occupational Therapist: Evaluate and treat for patient unable to perform ADL/IADL/self-care: Ordered Dialysis Equipment Technician: Assist with community resources: Ordered Assist with fpc care planning: Ordered Precautions List Precautions: Airborne/contact (COVID-19) thorugh 10/17/22. Home Bound Status Requires the aid of supportive device (check all that apply): Walker Patient has a condition such that leaving home is medically contraindicated (Describe): COVID-19 Describe why leaving home would require a considerable and taxing effort: Oxygen Encounter Date and Reason: I certify that a FTF encounter for this patient was performed on October 15, 2022 and that such encounter was related to the primary reason the patient requires home health services. The encounter was conducted in the following manner: By me as the certifying physician, AEROTRIANGULATION SPECIALIST, PA or By an inpatient physician, AEROTRIANGULATION SPECIALIST or PA during an inpatient stay who communicated findings to me, Certification And Authentication I certify that I composed the above information based on my clinical judgment relating to this patient's medical condition and, if applicable, clinical findings communicated to me by the NPP or inpatient physician who performed the FTF encounter. Name of Provider that will be monitoring home health services: Katherine Andre
--- NOTE | 2022-10-16 10:24 | NUR.NOTE ---
Nursing Note: Pt called with questions regarding her medications. States she has already taken her insulin as she was unaware that she was supposed to stop it. Advised pt that she was given a list of all of her upon discharge. Pt able to find her list and medications reviewed with her. Also advised that the omeprazole was changed to protonix due to an interaction with her plavix. Pt states she has not picked up her new medications as of yet. Care management notified that pt is having issues with her medications and requested that home health follow up with pt juan.
== END 2022-10-15 14:35 | disposition home health service (06) | DRG 177 ==
LOC: ER 18:40 → ICU 20:39 → MS 10-14 23:59
PROVIDERS: Internal Medicine; Physician Assistant; Admitting Provider Family Medicine; Emergency Provider Registered Nurse Emergency; PCP Nurse Practitioner Family; Visit Provider Family Medicine
DX: U07.1 COVID-19 (principal); I21.4 Non-ST elevation (NSTEMI) myocardial infarction; I50.23 Acute on chronic systolic (congestive) heart failure; N17.9 Acute kidney failure, unspecified; J96.11 Chronic respiratory failure with hypoxia; I13.0 Hypertensive heart and chronic kidney disease with heart failure and stage 1 through stage 4 chronic kidney disease, or unspecified chronic kidney disease; I42.9 Cardiomyopathy, unspecified; N18.30 Chronic kidney disease, stage 3 unspecified; E11.22 Type 2 diabetes mellitus with diabetic chronic kidney disease; E11.319 Type 2 diabetes mellitus with unspecified diabetic retinopathy without macular edema; M35.3 Polymyalgia rheumatica; J43.2 Centrilobular emphysema; R53.1 Weakness; I08.1 Rheumatic disorders of both mitral and tricuspid valves; I27.20 Pulmonary hypertension, unspecified; Z66 Do not resuscitate; I65.29 Occlusion and stenosis of unspecified carotid artery; K21.9 Gastro-esophageal reflux disease without esophagitis; M16.0 Bilateral primary osteoarthritis of hip; F41.1 Generalized anxiety disorder; G43.009 Migraine without aura, not intractable, without status migrainosus; R91.1 Solitary pulmonary nodule; F17.200 Nicotine dependence, unspecified, uncomplicated; K43.9 Ventral hernia without obstruction or gangrene; Z99.81 Dependence on supplemental oxygen; Z79.51 Long term (current) use of inhaled steroids; Z79.84 Long term (current) use of oral hypoglycemic drugs; Z79.52 Long term (current) use of systemic steroids; Z86.73 Personal history of transient ischemic attack (TIA), and cerebral infarction without residual deficits; Z79.4 Long term (current) use of insulin
CPT/HCPCS: 36410; 36415; 36416; 80048; 80053; 80061; 80076; 82306; 82805; 82962; 83690; 84145; 85027; 85652; 87040; 87637; 93005; 93306; 94618; 94640; 96361; 96365; 96367; 96375; 97110; 97116; 97163; 97530; 99223; 99285; 71045; 81003; 81015; 83036; 83605; 83735; 83880; 84484; 85025; 85379; 85610; 85730; 86140; 93010; 99232; 99239; 99291; J0248; J1650; J1940; J3490; J8540

== ENCOUNTER 2022-10-20 15:00 | Outpatient (REF) | payer MEDICARE, MEDICAID, SELFPAY ==
--- OUTSIDE RECORDS SUMMARY | 2022-10-20 15:02 | XMS_ITS | Continuity of Care Document ---
:1950 Author Organization [facility] Address Unavailable , Care Team Providers Name Role Phone Katherine Andre Primary Care Physician Encounter [facility] Date(s): 01/20/22 - 01/29/[address] [address]- Encounter Diagnosis Hemiplegia and hemiparesis following cerebral infarction affecting left dominant side (Final) - Contusion of right foot, initial encounter (Final) - Right-sided cerebrovascular accident (CVA) (Discharge Diagnosis) - 01/20/22 Peripheral vascular disease, unspecified (Final) - Heart failure, unspecified (Final) - Occlusion and stenosis of bilateral carotid arteries (Final) - Chronic obstructive pulmonary disease, unspecified (Final) - Dependence on supplemental oxygen (Final) - Polymyalgia rheumatica (Final) - Gastro-esophageal reflux disease without esophagitis (Final) - Other fatigue (Final) - Constipation, unspecified (Final) - MCC (current) use of systemic steroids (Final) - Tobacco use (Final) - Hypertensive heart and chronic kidney disease with heart failure and stage 1 through stage 4 chronickidney disease, or unspecified chronic kidney disease (Final) - Type 2 diabetes mellitus with diabetic chronic kidney disease (Final) - Chronic kidney disease, stage 3 unspecified (Final) - Hyperlipidemia, unspecified (Final) - Discharge Disposition: Home Care with Home Health Attending Physician: Emmanuelle Haddad MD Admitting Physician: Emmanuelle Haddad MD Allergies, Adverse Reactions, Alerts Substance Reaction Severity Status codeine Tachycardia Unknown Active indomethacin Unknown Active lisinopril Cough Unknown Active Assessment and Plan Extracted from: Title: Rehab discharge summary Author: Emmanuelle Haddad MD Date: 01/29/22 History of Present Illness Ms Wan is a 71 yo woman with h/o COPD on home O2, HFrEF EF 35%, DM2, HTN, CKD stage 3, PMR on steroids, GERD who presented to [facility] with weakness and admitted 01/13 to 01/21, Initially weakness thought t o be related to pneumonia and she receiv ed antibiotics. No cough fever or leukocytosis though, so antibiotics stopped. She was felt to be in heart failure and was diuresed. Lasix changed to torsemide an d she started entresto. Echo showed EF35 % stable from last echo. CT head had been checked earlier and negative, but due to ongoing weakness and ataxia noted on the left side, she had MRI which showed 13 mm acute nonhemorrhagic ischemic infarc t in right periventricular white matter, superimposed on chronic small vessel disease. Ultrasound showed plaque in bilateral ICAs, on the left moderate at 50-69%, and on the right <50%. She was started on ASA and statin.. Neurology recommended f/u with vascular as outpatient for carotid stenosis. The patient worked with PT OT and OPTIMIZATION MANAGER th roughout their stay however given residual deficits mild left sided weakness, it was felt beneficial to transfer to an acute rehabilitation level of care for inte nsive PT OT and OPTIMIZATION MANAGER with the goal of opt imizing function and eventual return home. Health Status Allergies: Allergic Reactions (All) Unknown Codeine- Tachycardia. Indomethacin- No reactions were document ed. Lisinopril- Cough., Allergies (3) Active Severity Reaction indomethacin Unknown None Documented codeine Unknown Tachycardia lisinopril Unknown Cough Current medications: Home Medications (21) Active acetaminophen 500 mg oral tablet 1,000 m g = 2 tab(s), PRN, Oral, TID albuterol 90 mcg/inh inhalation aerosol 2 puff(s), PRN, INH, q6hr aspirin 81 mg oral tablet, chewable 81 m g = 1 tab(s), Oral, Daily Atorvastatin 80mg tablet 80 mg = 1 tab(s ), Oral, HS calcium (as carbonate) 600 mg oral table t 600 mg = 1 tab(s), Oral, BID Colace 100 mg oral capsule 100 mg = 1 ca p(s), PRN, Oral, BID Flonase 50 mcg/inh nasal spray 100 mcg = 2 spray(s), Nostrils-Both, Daily glipiZIDE 5 mg oral tablet 2.5 mg = 0.5 tab(s), Oral, Daily melatonin 3 mg oral tablet 9 mg = 3 tab( s), Oral, HS metFORMIN 1000 mg oral tablet 1,000 mg = 1 tab(s), Oral, BID MiraLax 17 gm = 1 packet(s), PRN, Oral, Daily Non-Formulary Non-Formulary Non-Formulary Norvasc 5 mg oral tablet 5 mg = 1 tab(s) , Oral, Daily predniSONE 5 mg oral tablet 15 mg = 3 ta b(s), Oral, Daily PriLOSEC 20 mg oral delayed release caps ule 20 mg = 1 cap(s), Oral, Daily senna 8.6 mg oral tablet 17.2 mg = 2 tab (s), PRN, Oral, HS torsemide 20 mg oral tablet 20 mg = 1 ta b(s), Oral, Daily Vitamin D3 1000 intl units oral tablet, chewable 25 mcg = 1 tab(s), Chewed, Daily ZyrTEC 10 mg oral tablet 10 mg = 1 tab(s ), Oral, Daily Problem list: All Problems CKD stage 3 due to type 2 diabetes della comer / 9382007694 / Confirmed Advanced COPD / [id number] / Confirmed Chronic HFrEF (heart failure with reduce d ejection fraction) / 2540893427 / Confirmed GERD (gastroesophageal reflux disease) / [id number] / Confirmed HTN (hypertension) / 0642197617 / Confir med PMR (polymyalgia rheumatica) / [id number] / Confirmed DM2 (diabetes mellitus, type 2) / 616046 [id number] / Confirmed, Active Problems (7) Advanced COPD Chronic HFrEF (heart failure with reduce d ejection fraction) CKD stage 3 due to type 2 diabetes della comer DM2 (diabetes mellitus, type 2) GERD (gastroesophageal reflux disease) HTN (hypertension) PMR (polymyalgia rheumatica) Physical Examination VS/Measurements Vital Signs (last 24 hrs) Last Estefany ted Temp Oral 36.8 DegC (JAN 28 08:17) Heart Rate Peripheral 100 bpm (JAN 28 08 :31) Resp Rate 18 br/min (JAN 27 20:00) SBP 108 mmHg (JAN 28 08:17) DBP 68 mmHg (JAN 28 08:17) BMI 26.61 (JAN 28 09:43) Functional Status 01/29/22 History of Fall in Last 3 Months [place] Yes Mobility Naresh Slightly limited 01/28/22 ADLs Independent 01/28/22 Bathing ADL Index Requires assistance (1) Dressing ADL Index Requires assistance (1) Toileting ADL Index Requires assistance (1) Transferring Bed or Chair ADL Index Requires assistanc e (1) Continence ADL Index Requires assistance (1) Ambulatory Devices Walker 01/20/22 Recent Travel History No recent travel Family Member Travel History No recent travel COVID-19 Screening None Medications acetaminophen 500 mg oral tablet 1,000 mg = 2 tab(s), Oral, TID, PRN PRN Constipation, 0 Refill(s) Start Date: 01/28/22 Status: Orderedalbuterol 90 mcg/inh inhalation aerosol = 2 puff(s), INH, q6hr, PRN PRN for wheezing, # 6.7 gm, 0 Refill(s) Start Date: 01/20/22 Status: Orderedaspirin 81 mg oral tablet, chewable 81 mg = 1 tab(s), Oral, Daily, 0 Refill(s) Start Date: 01/28/22 Status: OrderedAtorvastatin 80mg tablet 80 mg = 1 tab(s), Oral, HS, # 30 tab(s), 0 Refill(s), Pharmacy: [id number], 1 tab(s) Oral HS, 169, cm, 01/20/22 17:03:00 EDT, Height/Length Dosing, 76.8, kg, 01/27/22 14:22:00 EDT, Weight Dosing Start Date: 01/28/22 Status: Orderedcalcium (as carbonate) 600 mg oral tablet 600 mg = 1 tab(s), Oral, BID, 0 Refill(s) Start Date: 01/20/22 Status: OrderedColace 100 mg oral capsule 100 mg = 1 cap(s), Oral, BID, PRN PRN Constipation, 0 Refill(s) Start Date: 01/28/22 Status: OrderedFlonase 50 mcg/inh nasal spray 100 mcg 2 spray(s), Nostrils-Both, Daily, 0 Refill(s) Start Date: 01/28/22 Status: OrderedglipiZIDE 5 mg oral tablet 2.5 mg = 0.5 tab(s), Oral, Daily, 0 Refill(s) Start Date: 01/28/22 Status: Orderedmelatonin 3 mg oral tablet 9 mg = 3 tab(s), Oral, HS, 0 Refill(s) Start Date: 01/28/22 Status: OrderedmetFORMIN 1000 mg oral tablet 1,000 mg = 1 tab(s), Oral, BID, 0 Refill(s) Start Date: 01/20/22 Status: OrderedMiraLax 17 gm 1 packet(s), Oral, Daily, PRN PRN Constipation, 0 Refill(s) Start Date: 01/28/22 Status: OrderedNon-Formulary bevespi inhaler 2 puffs inh bid, 0 Refill(s) Start Date: 01/28/22 Status: OrderedNon-Formulary entresto 1 tab po bid, 0 Refill(s) Start Date: 01/28/22 Status: OrderedNon-Formulary jardiance 10 mg po daily, 0 Refill(s) Start Date: 01/28/22 Status: OrderedNorvasc 5 mg oral tablet 5 mg = 1 tab(s), Oral, Daily, # 30 tab(s), 0 Refill(s), Pharmacy: [id number], 1 tab(s) Oral Daily, 169, cm, 01/20/22 17:03:00 EDT, Height/Length Dosing, 76.8, kg, 01/27/22 14:22:00 EDT, Weight Dosing Start Date: 01/28/22 Status: OrderedpredniSONE 5 mg oral tablet 15 mg = 3 tab(s), Oral, Daily, 0 Refill(s) Start Date: 01/20/22 Status: OrderedPriLOSEC 20 mg oral delayed release capsule 20 mg = 1 cap(s), Oral, Daily, 0 Refill(s) Start Date: 01/20/22 Status: Orderedsenna 8.6 mg oral tablet 17.2 mg = 2 tab(s), Oral, HS, PRN PRN Constipation, 0 Refill(s) Start Date: 01/28/22 Status: Orderedtorsemide 20 mg oral tablet 20 mg = 1 tab(s), Oral, Daily, # 30 tab(s), 0 Refill(s), Pharmacy: [id number], 1 tab(s) Oral Daily, 169, cm, 01/20/22 17:03:00 EDT, Height/Length Dosing, 76.8, kg, 01/27/22 14:22:00 EDT, Weight Dosing Start Date: 01/28/22 Status: OrderedVitamin D3 1000 intl units oral tablet, chewable 25 mcg = 1 tab(s), Chewed, Daily, 0 Refill(s) Start Date: 01/20/22 Status: OrderedZyrTEC 10 mg oral tablet 10 mg = 1 tab(s), Oral, Daily, 0 Refill(s) Start Date: 01/20/22 Status: Ordered Mental Status 01/29/22 Sensory Perception Naresh Slightly limited 01/28/22 Level of Consciousness Alert Problem List Condition Effective Dates Status Health Status Informant CKD stage 3 due to type 2 diabetes Active mellitus.(Confirmed) Advanced COPD(Confirmed) Active Chronic HFrEF (heart failure with Active reduced ejection fraction)(Confirmed) GERD (gastroesophageal reflux Active disease)(Confirmed) HTN (hypertension)(Confirmed) Active PMR (polymyalgia Active rheumatica)(Confirmed) DM2 (diabetes mellitus, type Active 2)(Confirmed) Results Laboratory List Name Date Blood Glucose Monitoring POC 01/29/22 Glucose POC1 01/29/22 Glucose POC1 01/28/22 Glucose POC1 01/28/22 Blood Glucose Monitoring POC 01/28/22 .Hemogram DH (CBC DH) 01/27/22 Basic Metabolic Panel DH (BMP DH) 01/27/22 .Hemogram DH (CBC DH) 01/24/22 Basic Metabolic Panel DH (BMP DH) 01/24/22 .Hemogram DH (CBC DH) 01/21/22 Basic Metabolic Panel DH 01/21/22 SARS-CoV-2 (COVID-19)/Influenza PCR (Roxanne) 01/20/22 Most recent to oldest 1 2 3 [Reference Range]: Anion Gap DH [5-15 mmol/L] 12 mmol/L 9 mmol/L 9 mmo l/L (01/27/22 5:45 AM) (01/24/22 5:55 AM) (01/21/22 5:4 5 AM) Chloride Lvl DH [98-107 99 mmol/L 95 mmol/L 100 mmol /L mmol/L] (01/27/22 5:45 AM) *LOW* (01/21/22 5:45 AM) (01/24/22 5:55 AM) CO2 DH [22-31 mmol/L] 31 mmol/L 36 mmol/L 33 mmol/L (01/27/22 5:45 AM) *HI* *HI* (01/24/22 5:55 AM) (01/21/22 5:45 AM) Est GFR DH [>=60 mL/min/1.73 44 mL/min/1.73 m2 1 37 mL/min/1.73 m2 2 50 mL/min/1.73 m2 3 m2] *LOW* *LOW* *LOW* (01/27/22 5:45 AM) (01/24/22 5:55 AM) (01/21/22 5:4 5 AM) Glucose Lvl DH [65-99 mg/dL] 83 mg/dL 81 mg/dL 88 mg/dL (01/27/22 5:45 AM) (01/24/22 5:55 AM) (01/21/22 5:4 5 AM) Potassium Lvl DH [3.5-5.0 3.6 mmol/L 3.5 mmol/L 3.6 mm ol/L mmol/L] (01/27/22 5:45 AM) (01/24/22 5:55 AM) (01/21/22 5:4 5 AM) Sodium Lvl DH [135-145 142 mmol/L 140 mmol/L 142 mmol/ L mmol/L] (01/27/22 5:45 AM) (01/24/22 5:55 AM) (01/21/22 5:4 5 AM) BUN DH [8-18 mg/dL] 31 mg/dL 42 mg/dL 39 mg/dL *HI* *HI* *HI* (01/27/22 5:45 AM) (01/24/22 5:55 AM) (01/21/22 5:4 5 AM) Calcium Lvl DH [8.5-10.5 8.9 mg/dL 9.7 mg/dL 9.9 mg/ dL mg/dL] (01/27/22 5:45 AM) (01/24/22 5:55 AM) (01/21/22 5:4 5 AM) Creatinine [0.70-1.20 mg/dL] 1.22 mg/dL 1.42 mg/dL 1.1 1 mg/dL *HI* *HI* (01/21/22 5:45 AM ) (01/27/22 5:45 AM) (01/24/22 5:55 AM) Glucose POC [65-99 mg/dL] 89 mg/dL 177 mg/dL 352 mg /dL (01/29/22 7:02 AM) *HI* *HI* (01/28/22 8:15 PM) (01/28/22 5:08 PM) Influenza A [Negative] Negative (01/20/22 5:30 PM) Influenza B [Negative] Negative (01/20/22 5:30 PM) Hct DH [35.7-45.8 %] 35.4 % 35.8 % 34.8 % *LOW* (01/24/22 5:55 AM) *LOW* (01/27/22 5:45 AM) (01/21/22 5:45 AM) Hgb DH [11.7-15.5 g/dL] 10.8 g/dL 11.0 g/dL 10.6 g/d L *LOW* *LOW* *LOW* (01/27/22 5:45 AM) (01/24/22 5:55 AM) (01/21/22 5:4 5 AM) MCHC DH [31.7-35.0 g/dL] 30.5 g/dL 30.7 g/dL 30.5 g/ dL *LOW* *LOW* *LOW* (01/27/22 5:45 AM) (01/24/22 5:55 AM) (01/21/22 5:4 5 AM) MCH DH [27.1-32.0 pg] 27.9 pg 28.1 pg 27.8 pg (01/27/22 5:45 AM) (01/24/22 5:55 AM) (01/21/22 5:4 5 AM) MCV DH [82.6-94.4 fL] 91.5 fL 91.6 fL 91.3 fL (01/27/22 5:45 AM) (01/24/22 5:55 AM) (01/21/22 5:4 5 AM) MPV DH [7.6-12.9 fL] 10.8 fL 10.3 fL 10.8 fL (01/27/22 5:45 AM) (01/24/22 5:55 AM) (01/21/22 5:4 5 AM) Platelet DH [145-357 217 x10(3)/mcL 214 x10(3)/mcL 214 x10(3)/ mcL x10(3)/mcL] (01/27/22 5:45 AM) (01/24/22 5:55 AM) (01/21/22 5:4 5 AM) RBC DH [4.00-5.21 3.87 x10(6)/mcL 3.91 x10(6)/mcL 3.81 x10(6)/mc L x10(6)/mcL] *LOW* *LOW* *LOW* (01/27/22 5:45 AM) (01/24/22 5:55 AM) (01/21/22 5:4 5 AM) RDWCV DH [11.5-14.1 %] 13.7 % 13.7 % 13.8 % (01/27/22 5:45 AM) (01/24/22 5:55 AM) (01/21/22 5:4 5 AM) RDWSD DH [37.0-46.0 fL] 46.1 fL 46.3 fL 46.5 fL *HI* *HI* *HI* (01/27/22 5:45 AM) (01/24/22 5:55 AM) (01/21/22 5:4 5 AM) WBC DH [4.0-9.5 x10(3)/mcL] 9.6 x10(3)/mcL 12.3 x10(3)/mcL 9.8 x10(3)/mcL *HI* *HI* *HI* (01/27/22 5:45 AM) (01/24/22 5:55 AM) (01/21/22 5:4 5 AM) Blood Glucose, Capillary POC 89 mg/dL 177 mg/dL 352 mg/dL [65-99 mg/dL] (01/29/22 7:10 AM) *HI* *HI* (01/28/22 8:00 PM) (01/28/22 5:13 PM) Employed in healthcare? No *NA* (01/20/22 5:30 PM) Symptomatic as defined by No CDC? *NA* (01/20/22 5:30 PM) Hospitalized due to No COVID-19? *NA* (01/20/22 5:30 PM) In ICU? No *NA* (01/20/22 5:30 PM) Group care resident? No *NA* (01/20/22 5:30 PM) status? Not *NA* (01/20/22 5:30 PM) SARS-CoV-2 (COVID-19) PCR Not Detected [Not Detected] (01/20/22 5:30 PM) 1Result Comment: This patient???s estimated glomerular filtration rate (eGFR) is between 44 mL/min/1.73 m2 (patients with less muscle mass) and 51 mL/min/1.73 m2 (patients with more muscle mass) as determined by the CKD-EPI equation. Assessment of eGFR is not appropriate when creatinine concentrations are rapidly changing. For clinical decisions where creatinine clearance will affect therapy, a 24-hour urine creatinine clearance may be advised. Assignment of CKD stage 1 ??? 5 for patients with an eGFR near the transition point between stages may be based on clinical assessment of muscle mass and symptoms in addition to eGFR.2Result Comment: This patient???s estimated glomerular filtration rate (eGFR) is between 37 mL/min/1.73 m2 (patients with less muscle mass) and 43 mL/min/1.73 m2 (patients with more muscle mass) as determined by the CKD-EPI equation. Assessment of eGFR is not appropriate when creatinine concentrations are rapidly changing. For clinical decisions where creatinine clearance will affect therapy, a 24-hour urine creatinine clearance may be advised. Assignment of CKD stage 1 ??? 5 for patients with an eGFR near the transition point between stages may be based on clinical assessment of muscle mass and symptoms in addition to eGFR.3Result Comment: This patient???s estimated glomerular filtration rate (eGFR) is between 50 mL/min/1.73 m2 (patients with less muscle mass) and 57 mL/min/1.73 m2 (patients with more muscle mass) as determined by the CKD-EPI equation. Assessment of eGFR is not appropriate when creatinine concentrations are rapidly changing. For clinical decisions where creatinine clearance will affect therapy, a 24-hour urine creatinine clearance may be advised. Assignment of CKD stage 1 ??? 5 for patients with an eGFR near the transition point between stages may be based on clinical assessment of muscle mass and symptoms in addition to eGFR. Vital Signs Most recent to oldest 1 2 3 [Reference Range]: Temperature Oral [35.8-37.3 36.9 DegC 36.4 DegC 36.8 DegC DegC] (01/29/22 8:00 AM) (01/28/22 8:00 PM) (01/28/22 8:1 7 AM) Temperature Oral (DegF) 98.42 DegF 97.52 DegF (01/29/22 8:00 AM) (01/25/22 7:08 AM) Peripheral Pulse Rate 78 bpm 90 bpm 100 bpm [60-100 bpm] (01/29/22 8:00 AM) (01/28/22 8:00 PM) (01/28/22 8:3 1 AM) Respiratory Rate [14-20 18 br/min 18 br/min 18 br/mi n br/min] (01/28/22 8:00 PM) (01/27/22 8:00 PM) (01/27/22 8:0 0 AM) Blood Pressure [90-140/60-90 123/70 mmHg 129/65 mmHg 108 /68 mmHg mmHg] (01/29/22 8:00 AM) (01/28/22 8:00 PM) (01/28/22 8:1 7 AM) Mean Arterial Pressure, Cuff 81 mmHg 86 mmHg (01/28/22 8:17 AM) (01/26/22 7:57 AM) Mean Arterial Pressure, Cuff 91 mmHg [65-100 mmHg] (01/24/22 6:00 AM) BP Site Right arm Right arm Left arm (01/29/22 8:00 AM) (01/27/22 8:00 AM) (01/26/22 7:0 0 PM) Patient Position BP Supine (01/24/22 8:36 PM) SpO2 [92-100 %] 96 % 96 % 98 % (01/29/22 8:00 AM) (01/28/22 8:00 PM) (01/28/22 8:3 1 AM) SpO2 Following Exercise 92 % [94-100 %] *LOW* (01/24/22 11:18 AM) Oxygen Activity Ongoing Ongoing Ongoing (01/28/22 8:00 PM) (01/28/22 7:57 AM) (01/27/22 8:0 0 PM) Height 169 cm 169 cm 169 cm (01/28/22 9:43 AM) (01/28/22 9:43 AM) (01/22/22 2:2 7 PM) Height/Length Dosing 169 cm (01/20/22 5:03 PM) Height/Length Dosing 66 in (01/20/22 3:04 PM) Weight 76.7 kg 76 kg 76 kg (01/28/22 11:33 AM) (01/28/22 9:43 AM) (01/28/22 9: 43 AM) Weight Estimated 76.8 kg 76.9 kg 76.20 kg (01/27/22 2:22 PM) (01/26/22 10:21 AM) (01/25/22 11 :57 AM) Weight Dosing 76.8 kg 76.9 kg 76.20 kg (01/27/22 2:22 PM) (01/26/22 10:21 AM) (01/25/22 11 :57 AM) BSA Measured 1.89 m2 (01/28/22 9:43 AM) Body Mass Index Measured 26.61 kg/m2 26.61 kg/m2 (01/28/22 9:43 AM) (01/22/22 2:27 PM) Body Mass Index 26.61 kg/m2 (01/28/22 9:43 AM) Social History Social History Type Response Smoking Status Cigars or pipes daily within last 30 days; Never entered on: 01/20/22 Sex Hospital Discharge Instructions Patient Mgfelanvw22/30/2022 08:34:31Hospitalist Services Upon Discharge ([facility]ILB[facility]ULL[facility]) (Custom) Services Upon Discharge Patient is being discharged home with these services in place: HOME SERVICES: Home Services Discharge - Arrangements and orders for follow-up care Service Provider: [facility] Contact Service(s) to be Provided: Physical Therapy, Occupational Therapy, Nursing Frequency: Additional Comments: Date of the face to face encounter: 01/28/22 This visit was related to stroke, CHF for which the patient needs skilled home health services.?? Myclinical findings support the need for skilled: Occupational Therapy- 2x weekly for independence with ADLs Physical Therapy- 2x weekly for strengthening, endurance, balance and functional independence Nursing- CV and pulmonary assessment, diabetic teaching and monitoring, daily weights The patient is homebound and requires considerable and taxing effort to leave their residence secondary to limited endurance with increased weakness and decreased control of the affected leg, requiringuse of walker and the support of a second person. To all home service providers, please contact the patient???s Primary Care Provider - Katherine Andre NP- with all follow up regarding your services. Reviewed and Electronically Signed By: Emmanuelle Haddad MD Date: 01/28/22 01/28/2022 14:47:54Ischemic StrokeIschemic Stroke An ischemic stroke (cerebrovascular accident, or CVA) is the sudden of brain tissue that occurs when an area of the brain does not get enough blood flow. This condition is a medical emergency that must be treated right away. An ischemic stroke can cause permanent loss of brain function. Losing brain function can cause problems with how different parts of the body work. What are the causes? This condition is caused by a decrease of blood flow to an area of the brain, which may be the result of: ??? A small blood clot (embolus) or a buildup of plaque in the blood vessels, called atherosclerosis, that blocks blood flow in the brain. ??? An abnormal heart rhythm called atrial fibrillation, which sends a small blood clot to the brain. ??? A blocked or damaged artery in the head or neck. ??? Certain infections. ??? Inflammation of the arteries in the brain (vasculitis). Sometimes, the cause of ischemic stroke is not known. What increases the risk? The following factors may make you more likely to develop this condition: Factors that you can change ??? High blood pressure (hypertension) or certain other medical conditions, such as: ??? Heart disease. ??? Diabetes mellitus. ??? High cholesterol. ??? Obesity. ??? Sleep apnea. ??? Migraine headache. ??? Smoking cigarettes or using other tobacco products. ??? Physical inactivity. ??? Heavy alcohol use. ??? Use of illegal drugs, especially cocaine and methamphetamine. ??? Taking control pills, especially if you also use tobacco. Factors that you cannot change ??? Being older than age 60. ??? History of blood clots, stroke, or mini-stroke (transient ischemic attack, TIA). ??? History of high blood pressure when (preeclampsia), in women. ??? Family history of stroke. ??? Sickle cell disease. ??? Blood clotting disorders (hypercoagulable state). What are the signs or symptoms? Symptoms of this condition usually develop suddenly, or you may notice them after waking from sleep.These sudden symptoms may include: ??? Weakness or numbness of your face, arm, or leg, especially on one side of your body. ??? Loss of balance or coordination. ??? Slurred speech, or aphasia. Aphasia is trouble speaking or trouble understanding speech or both. ??? Vision changes in one or both eyes. You may have double vision, blurred vision, or loss of vision. ??? Dizziness or confusion. ??? Nausea and vomiting. ??? Severe headache with no known cause. If possible, write down the exact time that you last felt like your normal self and what time your symptoms started. Tell your health care provider. If symptoms come and go, they could be signs of a TIA (transient ischemic attack). Get help right away, even if you feel better. How is this diagnosed? This condition may be diagnosed based on: ??? Your symptoms, your medical history, and a physical exam. ??? CT scan of the brain. ??? MRI. ??? Imaging tests that scan blood flow (circulation) in the brain. These may be CT angiogram, MRI angiogram, or cerebral angiogram. You may need to see a health care provider who specializes in stroke care. A stroke specialist can be seen in person or through communication using telephone or television technology (telemedicine). You may also have other tests, including: ??? Electrocardiogram (ECG). ??? Continuous heart monitoring. ??? Transthoracic echocardiogram (TTE). ??? Transesophageal echocardiogram (PADMINI). ??? Carotid ultrasound. ??? Blood tests. ??? Sleep study to check for sleep apnea. How is this treated? Treatment for this condition depends on the duration, severity, and cause of your symptoms and on the area of the brain affected. It is very important to get treatment at the first sign of stroke symptoms. Some treatments work better if they are done within 3???6 hours of the start of stroke symptoms.These initial treatments may include: ??? Thrombolytic medicine that is injected to dissolve the blood clot. ??? Treatments given directly to the affected artery to remove or dissolve the blood clot. ??? Medicines to control blood pressure. ??? Anticoagulant or antiplatelet medicines to thin the blood. Other treatments may include: ??? Oxygen. ??? IV fluids. ??? Procedures to increase blood flow. Medicines and diet changes may be used to help manage risk factors for stroke, such as diabetes, high cholesterol, and high blood pressure. After a stroke, you may work with physical, speech, mental health, or occupational therapists to help you recover. Follow these instructions at home: Medicines ??? Take [id number] and prescription medicines only as told by your health care provider. ??? If you were told to take a medicine to thin your blood, take your medicine exactly as told, at the same time every day. This includes aspirin or an anticoagulant. ??? Taking too much blood-thinning medicine can cause bleeding. ??? If you do not take enough blood-thinning medicine, you will not be protected enough against another stroke and other problems. ??? Understand the side effects of taking anticoagulant medicine. When taking this type of medicine,make sure you: ??? Hold pressure over any cuts for longer than usual. ??? Tell your dentist and other health care providers that you are taking anticoagulants before you have any procedures that may cause bleeding. ??? Avoid activities that could cause injury or bruising. ??? Wear a medical alert bracelet or carry a card that lists what medicines you take. Eating and drinking ??? Follow instructions from your health care provider about diet. ??? Eat healthy foods. ??? If your stroke affected your ability to swallow, you may need to take steps to avoid choking. These may include taking small bites when eating and eating foods that are soft or pureed. Safety ??? Follow instructions from your health care team about physical activity. ??? Use a walker or cane as told by your health care provider. ??? Take steps to create a safe home environment to lower your risk of falls. These steps may include: ??? Having your home looked at by specialists. ??? Installing grab bars in the bedroom and bathroom. ??? Using safety equipment, such as raised toilets and a seat in the shower. General instructions ??? Do not use any products that contain nicotine or tobacco, such as cigarettes, e-cigarettes, and chewing tobacco. If you need help quitting, ask your health care provider. ??? If you drink alcohol: ??? Limit how much you use to: ??? 0???1 drink a day for women. ??? 0???2 drinks a day for men. ??? Be aware of how much alcohol is in your drink. In the [place] one drink equals one 12 oz bottle ofbeer (355 mL), one 5 oz glass of wine (148 mL), or one 1?? oz glass of hard liquor (44 mL). ??? If you need help to stop using drugs or alcohol, ask your health care provider about a referral to a program or specialist. ??? Maintain an active and healthy lifestyle. Get regular exercise as told. ??? Wear a medical bracelet as told by your health care provider. ??? Keep all follow-up visits as told by your health care provider, including visits with all specialists on your health care team. This is important. How is this prevented? You can lower your risk of another stroke by managing high blood pressure, high cholesterol, diabetes, heart disease, sleep apnea, and obesity. Your risk can also be lowered by quitting smoking, limiting alcohol, and staying physically active. Your health care provider will continue to help you with ways to prevent short- term and long-term problems caused by stroke. Get help right away if: You have any symptoms of a stroke. BE FAST is an easy way to remember the main warning signs of a stroke: ??? B - Balance. Signs are dizziness, sudden trouble walking, or loss of balance. ??? E - Eyes. Signs are trouble seeing or a sudden change in vision. ??? F - Face. Signs are sudden weakness or numbness of the face, or the face or eyelid drooping on one side. ??? A - Arms. Signs are weakness or numbness in an arm. This happens suddenly and usually on one side of the body. ??? S - Speech. Signs are sudden trouble speaking, slurred speech, or trouble understanding what people say. ??? T - Time. Time to call emergency services. Write down what time symptoms started. You have other signs of a stroke, such as: ??? A sudden, severe headache with no known cause. ??? Nausea or vomiting. ??? Seizure. These symptoms may represent a serious problem that is an emergency. Do not wait to see if the symptoms will go away. Get medical help right away. Call your local emergency services (911 in the [place] Do not drive yourself to the hospital. Summary ??? An ischemic stroke (cerebrovascular accident, or CVA) is the sudden of brain tissue that occurs when an area of the brain does not get enough blood flow. ??? Symptoms of this condition usually develop suddenly, or you may notice them after waking from sleep. ??? It is very important to get treatment at the first sign of stroke symptoms. Stroke is a medical emergency that must be treated right away. This information is not intended to replace advice given to you by your health care provider. Make sure you discuss any questions you have with your health care provider. Document Revised: 10/15/2020 Document Reviewed: 10/15/2020 [employer] Patient Education ?? 2020 [employer]. 01/20/2022 23:06:04Heart Failure, DiagnosisHeart Failure, Diagnosis Heart failure is a condition in which the heart has trouble pumping blood because it has become weakor stiff. This means that the heart does not pump blood well enough for the body to stay healthy. For some people with heart failure, fluid may back up into the lungs. There may also be swelling (edema) in the lower legs. Heart failure is usually a long-term (chronic) condition. It is important for you to take good care of yourself and follow the treatment plan from your health care provider. What are the causes? This condition may be caused by: ??? High blood pressure (hypertension). Hypertension causes the heart muscle to work harder than normal. This makes the heart stiff or weak. ??? Coronary artery disease, or CAD. CAD is the buildup of cholesterol and fat (plaque) in the arteries of the heart. ??? Heart attack, also called myocardial infarction. This injures the heart muscle, making it hard for the heart to pump blood. ??? Abnormal heart valves. The valves do not open and close properly, forcing the heart to pump harder to keep the blood flowing. ??? Heart muscle disease (cardiomyopathy or myocarditis). This is damage to the heart muscle. It canincrease the risk of heart failure. ??? Lung disease. The heart works harder when the lungs are not healthy. ??? Abnormal heart rhythms. These can lead to heart failure. What increases the risk? The risk of heart failure increases as a person ages. This condition is also more likely to develop in people who: ??? Are overweight. ??? Are male. ??? Smoke or chew tobacco. ??? Abuse alcohol or illegal drugs. ??? Have taken medicines that can damage the heart, such as chemotherapy drugs. ??? Have diabetes. ??? Have abnormal heart rhythms. ??? Have thyroid problems. ??? Have low blood counts (anemia). What are the signs or symptoms? Symptoms of this condition include: ??? Shortness of breath with activity, such as when climbing stairs. ??? A cough that does not go away. ??? Swelling of the feet, ankles, legs, or abdomen. ??? Losing weight for no reason. ??? Trouble breathing when lying flat (orthopnea). ??? Waking from sleep because of the need to sit up and get more air. ??? Rapid heartbeat. ??? Tiredness (fatigue) and loss of energy. ??? Feeling light-headed, dizzy, or close to fainting. ??? Loss of appetite. ??? Nausea. ??? Waking up more often during the night to urinate (nocturia). ??? Confusion. How is this diagnosed? This condition is diagnosed based on: ??? Your medical history, symptoms, and a physical exam. ??? Diagnostic tests, which may include: ??? Echocardiogram. ??? Electrocardiogram (ECG). ??? Chest X-ray. ??? Blood tests. ??? Exercise stress test. ??? Radionuclide scans. ??? Cardiac catheterization and angiogram. How is this treated? Treatment for this condition is aimed at managing the symptoms of heart failure. Medicines Treatment may include medicines that: ??? Help lower blood pressure by relaxing (dilating) the blood vessels. These medicines are called VINAY inhibitors (angiotensin-converting enzyme) and ARBs (angiotensin receptor blockers). ??? Cause the kidneys to remove salt and water from the blood through urination (diuretics). ??? Improve heart muscle strength and prevent the heart from beating too fast (beta blockers). ??? Increase the force of the heartbeat (digoxin). Healthy behavior changes Treatment may also include making healthy lifestyle changes, such as: ??? Reaching and staying at a healthy weight. ??? Quitting smoking or chewing tobacco. ??? Eating heart-healthy foods. ??? Limiting or avoiding alcohol. ??? Stopping the use of illegal drugs. ??? Being physically active. Other treatments Other treatments may include: ??? Procedures to open blocked arteries or repair damaged valves. ??? Placing a pacemaker to improve heart function (cardiac resynchronization therapy). ??? Placing a device to treat serious abnormal heart rhythms (implantable cardioverter defibrillator, or ICD). ??? Placing a device to improve the pumping ability of the heart (left ventricular assist device, orLVAD). ??? Receiving a healthy heart from a donor (heart transplant). This is done when other treatments have not helped. Follow these instructions at home: ??? Manage other health conditions as told by your health care provider. These may include hypertension, diabetes, thyroid disease, or abnormal heart rhythms. ??? Get ongoing education and support as needed. Learn as much as you can about heart failure. ??? Keep all follow-up visits as told by your health care provider. This is important. Summary ??? Heart failure is a condition in which the heart has trouble pumping blood because it has become weak or stiff. ??? This condition is caused by high blood pressure and other diseases of the heart and lungs. ??? Symptoms of this condition include shortness of breath, tiredness (fatigue), nausea, and swelling of the feet, ankles, legs, or abdomen. ??? Treatments for this condition may include medicines, lifestyle changes, and surgery. ??? Manage other health conditions as told by your health care provider. This information is not intended to replace advice given to you by your health care provider. Make sure you discuss any questions you have with your health care provider. Document Revised: 01/06/2020 Document Reviewed: 01/06/2020 [employer] Patient Education ?? 2020 [employer]. Follow Up Care01/20/2022 13:25:54With:[facility] Address:Unknown When: Unknown Comments:Home Health PT/OT/NursingWith:Adjovu, Katherine SWAGER OPERATOR Address: [address] [place] [phone] When:02/03/2022 11:00:00 Comments:follow-up Appt with your PCPWith:neuro Address: [facility] When:03/03/2022 10:45:00 Comments:[facility] Neurology With:[facility] Cardiology Address:Unknown When: Unknown Comments:needs follow-up with Cardiology - Appt requested - office to call you w/Appt Care Team PersonnelName: Katherine Andre SWAGER OPERATOR Address: [address] [place] [phone]
[2022-10-20 15:19] LABS: Bilirubin Negative (Negative); Blood Negative (Negative); Clarity Sl Cloudy (Clear); Glucose 500 mg/dL (Negative); Ketones Negative (Negative); Leukocyte Esterase Moderate (Negative); Nitrite Negative (Negative); Urobilinogen 0.2 EU/dL (Up TO 0.2); pH 5.5 (5-8)
[2022-10-20 15:25] LABS: Bacteria Moderate HPF (Negative); C & S Indicated? Yes; Casts Negative LPF (Negative); Crystals Negative HPF (Negative); Epithelial Cells Few HPF (Negative); Mucus Negative (Negative); RBC 0-2 HPF (0-2)
[2022-10-20 16:01] LABS: Anion Gap 9.4 mmol/L (3-11); CO2 30.6 mmol/L (21.0-32.0); CREATININE 3.2 mg/dL (0.55-1.02); Calcium 8.7 mg/dL (8.5-10.1); Chloride 98 mmol/L (98-107); Estimated GFR 14.73 (mL/min/1.73m2); Glucose 332 mg/dL (74-106); Potassium 4.6 mmol/L (3.5-5.1); Sodium 138 mmol/L (136-145)
[2022-10-20 16:06] LABS: BUN 101 mg/dL (7-18)
== END 2022-10-20 15:01 | disposition home or self-care (01) ==
LOC: LBN 15:00
PROVIDERS: PCP Nurse Practitioner Family; Visit Provider Nurse Practitioner Family
DX: R35.0 Frequency of micturition (principal); I10 Essential (primary) hypertension
CPT/HCPCS: 80048; 81003; 81015; 87086

== ENCOUNTER 2022-10-23 12:10 | Emergency (ER) | payer MEDICARE, MEDICAID, SELFPAY ==
[2022-10-23] VITALS (44 sets, daily range): BP systolic 61–123; BP diastolic 34–84; PULSE 44–79; RESP 13–28; TEMP 36.8; O2SAT 91–98
--- NOTE | 2022-10-23 12:00 | RT.EKG_ITS ---
APPROVED REPORT Exam: Resting ECG Reason for Exam: near syncope Patient Location: E HR:72 bpm ECG Measurements Heart Rate 72 AXIS LA 150 P 72 QRSd 96 QRS 10 QT 384 T 253 QTc 420 Conclusion Sinus rhythm...normal P axis, V-rate 60- 99 Ventricular premature complex...V complex w/ short R-R interval Aberrant conduction of SV complex(es)...aberrant shape, LA 80-220 Repol abnrm suggests ischemia, diffuse leads...ST-T neg, ant/lat/inf. Sinus. Normal axis. No STEMI. 1mm ST depressions in V4-6 which is seen in previous and no acute bae e. No STEMI. I have reviewed and interpreted ECG and agree with software generated interpretation.
--- NOTE | 2022-10-23 12:26 | ED.GENADUL_ITS ---
Discharge Plan Disposition Patient Disposition: Home Condition: Improving Discharge Details Clinical Impression: Generalized weakness, Diarrhea, Hypotension, Dehydration Primary Care Provider: Katherine Andre ED Provider: Azeb Max Home Meds and New Rx's Prescriptions: Continued cetirizine 10 mg tablet 10 mg PO DAILY Qty: 90 3RF albuterol sulfate 90 mcg/actuation HFA aerosol inhaler 2 puff inhalation Q6H PRN (Reason: shortness of breath or wheezing) Qty: 18 4RF aspirin 81 mg tablet,delayed release (DR/EC) 81 mg PO DAILY Qty: 90 3RF atorvastatin 80 mg tablet 80 mg PO QPM Qty: 90 3RF ferrous sulfate 325 mg (65 mg iron) tablet,delayed release (DR/EC) 325 mg PO DAILY Qty: 90 3RF fluticasone propionate [Flonase Allergy Relief] 50 mcg/actuation spray,suspension 2 spray intranasal DAILY PRN (Reason: allergy symptoms) Qty: 16 4RF Rx Instructions: administer into each nostril Bevespi Aerosphere 9-4.8 mcg HFA aerosol inhaler 1 puff inhalation BID Qty: 10.7 4RF Hold Instructions: Has not started and does not wish to for now Rx Instructions: 1 puff twice a day (DME) Dexcom G6 Transmitter Device See Rx Instructions .Route Qty: 1 4RF Rx Instructions: Continuous glucose monitor (DME) Dexcom G6 Quantitative Analyst Marketing Misc See Rx Instructions .Route Qty: 1 3RF Rx Instructions: Continuous glucose monitor (DME) Dexcom G6 Sensor Device See Rx Instructions .Route Qty: 3 3RF Rx Instructions: Continuous glucose monitor (DME) BD AutoShield Duo Pen Needle 30 gauge x 3/16 needle See Rx Instructions .Route Qty: 360 3RF Rx Instructions: Use with insulin pens four times a day insulin glargine [Lantus Solostar U-100 Insulin] 100 unit/mL (3 mL) insulin pen 30 unit subcut QAM Qty: 9 3RF insulin aspart U-100 100 unit/mL (3 mL) insulin pen 1 sliding scale dose subcut TID Qty: 9 3RF Rx Instructions: Sliding Scale Insulin Instructions 60-124 = 0 126-150 = 4 151-200 = 6 201-300 = 8 301-350 = 10 351-400 = 12 Stiolto Respimat 2.5-2.5 mcg/actuation mist 1 inh inhalation DAILY Antacid Calcium 215 mg calcium (500 mg) tablet,chewable 215 mg PO BID PRN (DME) blood-glucose meter [PhosImmuneTouch Ultra2 Meter] Kit See Rx Instructions .MEDSUPPLY Qty: 1 2RF Rx Instructions: Check blood sugar twice a day (DME) Aerochamber MV Spacer See Rx Instructions .ROUTE .MEDSUPPLY Qty: 2 4RF Rx Instructions: Use with inhalers Entresto 24-26 mg tablet 1 tab PO BID Qty: 90 4RF docusate sodium 100 mg capsule 100 mg PO DAILY empagliflozin 10 mg tablet 10 mg PO DAILY Qty: 90 3RF gabapentin 300 mg capsule 300 mg PO QHS Qty: 90 3RF spironolactone 25 mg tablet 25 mg PO DAILY Qty: 90 3RF torsemide 20 mg tablet 20 mg PO BID Qty: 180 3RF (DME) OneTouch Ultra Test Strip See Rx Instructions .MEDSUPPLY Qty: 500 3RF Rx Instructions: Check blood sugar five times a day (DME) lancets [OneTouch UltraSoft Lancets] Misc See Rx Instructions .ROUTE .MEDSUPPLY Qty: 500 3RF Rx Instructions: Check blood sugar five times a day ciprofloxacin HCl 250 mg tablet 250 mg PO BID Qty: 6 0RF Rx Instructions: 1 tablet twice day for 3 days cholecalciferol (vitamin D3) [Vitamin D3] 25 mcg (1,000 unit) Capsule 25 mcg PO DAILY clopidogrel 75 mg Tablet 75 mg PO DAILY Qty: 30 0RF ascorbic acid (vitamin C) [Vitamin C] 500 mg Tablet 1,000 mg PO BID Qty: 28 0RF zinc sulfate [Zinc-220] 50 mg zinc (220 mg) Capsule 220 mg PO DAILY@1030 Qty: 7 0RF metoprolol succinate [Toprol XL] 50 mg tablet extended release 24 hr 50 mg PO DAILY Qty: 30 0RF prednisone 5 mg Tablet See Rx Instructions .ROUTE .COMPLEX Qty: 126 0RF Rx Instructions: 40 mg PO daily x 2 days, then 35 mg PO daily x 5 days, then 30 mg PO daily x 5 days, then 25 mg PO daily x 5 days, then 20 mg PO daily x 5 days, then resume 15 mg PO daily. pantoprazole 40 mg Tablet,Delayed Release (Dr/Ec) 40 mg PO DAILY@0730 Qty: 30 0RF Discharge Instructions Instructions: Dehydration (ED), Acute Diarrhea (ED), Weakness (ED) Additional Instructions: Your blood tests today show that you are likely mildly dehydrated. Your blood pressure was also low today which also can be seen in dehydration and may also be related to your medication metoprolol which can lower your blood pressure. Continue to take your regular medications as prescribed. Hold the metoprolol for a systolic blood pressure of less than 100. Call your primary care doctor's office tomorrow to schedule a follow-up appointment for reevaluation within the next week. Follow-up with your scheduled appointment for your renal ultrasound next week. Return immediately to the emergency department if you develop any worsening or new concerning symptoms. Discharge Data Discharge Date/Time-TO BE ENTERED AT DEPARTURE: 10/23/22 16:50 Discharge Physician: Azeb Max Medical Decision Making 1215 -- 72-year-old female with a history of hypertension, hyperlipidemia, GERD, diabetes, CVA, CKD, COPD chronically on 2 L nasal cannula oxygen who presents for generalized weakness while sitting on the toilet today. There was report of a syncopal episode but patient denies this. Of note, patient was admitted here recently for type II NSTEMI in the setting of acute COVID illness. She was treated with remdesivir and was also given dual antiplatelet therapy and her troponins have down trended. EKG on arrival notes a rate of 72, sinus, [address] depressions in anterior lateral leads which is seen in previous EKG without acute change and no STEMI. Patient's blood pressure on arrival was 69/52. This was rechecked in the other arm and 107/34. Patient appears comfortable and nontoxic. She has no focal deficits. Her abdomen is soft and nontender. Lungs clear throughout. No lower extremity swelling. Discussed with patient at length that her presentation can be secondary to a multitude of factors including post COVID illness, UTI, diarrhea, dehydration. Will obtain screening labs, urinalysis and give IV fluids and continue to monitor. 1620 --labs and imaging reviewed. Creatinine 3.8 which is increased compared to recent result of 3.2 upon discharge after recent admission. Daughter reports that she has an outpatient renal ultrasound scheduled for this week. I repeated the creatinine after IV fluids and it has improved to 3.5. Her troponin is also elevated but significantly downtrending compared to her recent type II NSTEMI. Initial troponin is 115 and a repeat is continuing to downtrend to 102. She has no acute EKG changes or complaint of chest pain suspect this is all downtrending in the setting of her recent type II NSTEMI. Her urinalysis notes positive nitrite but negative WBCs and leukocyte esterase. A urine culture from 3 days ago grew gram-positive nader. She is taking her last dose of antibiotic this evening. Her COVID test remains positive but she is negative for influenza and RSV. Chest x-ray is negative for acute findings. Patient reassessed and she is requesting to go home. Her blood pressure has improved while here in the emergency department with fluids. Daughter states that patient was recently started on metoprolol per her PCP office. She is advised to continue this as prescribed but to hold for systolic blood pressure less than 100. Disposition decision made weighing the risks and benefits of hospitalization versus outpatient treatment, the risk for further decompensation, and the patient's wishes. Advised to follow up with the primary care doctor for re- evaluation. Usual and customary return precautions given prior to discharge. Medical Records Medical records reviewed: Yes I reviewed the patient's medical records. Medical records narrative: Echocardiogram 10/14/22 Conclusion Moderately dilated left ventricle.? Normal left ventricular wall thickness.? Estimated ejection fraction is 40% with global hypokinesis Right ventricle is normal in size and systolic function Left atrium is mildly dilated.? The right atrium is normal in size.? There is a small patent foramen ovale with [id number] flow The aortic valve is sclerotic and trileaflet without stenosis or regurgitation Mitral annular calcification.? Moderate mitral regurgitation Normal tricuspid valve with mild regurgitation.? Estimated right ventricular systolic pressure is 34 mmHg Small pericardial effusion Imaging Data Radiologic Study: Radiologist's impression: XR CHEST 2V PA ? LATERAL CLINICAL HISTORY:? weakness, r/o acute disease TECHNIQUE:? 2D digital imaging was performed. COMPARISON:? CR XR RIBS LT W PA ? LAT CHEST from 02/18/2022 CR,XR XR PORTABLE CHEST AP from 04/01/2022 CR,XR XR CHEST 2V PA ? LATERAL from 04/10/2022 CR XR PORTABLE CHEST AP from 05/01/2022 CR,XR XR PORTABLE CHEST AP from 05/09/2022 CR,XR XR PORTABLE CHEST AP from 10/12/2022 FINDINGS: HEART: Normal size.? Aorta: Mildly enlarged. PULMONARY VASCULATURE: Normal. LUNGS: Scarring left lung base.? Mild fibrotic changes.? No acute infiltrate. ? PLEURAL SPACE: No pleural effusion or pneumothorax. BONE:Unremarkable for age.? IMPRESSION: No acute abnormality.? Lab Data Lab results reviewed: Yes I reviewed the patient's lab results. Labs: Laboratory Tests Range/Units 10/23/22 10/23/22 10/23/22 12:25 12:25 12:25 WBC (4.4-10.8) 10^3/uL 7.73 RBC (3.93-5.22) 10^6/uL 3.82 L Hgb (11.2-15.7) g/dL 10.5 L Hct (36.0-46.0) % 34.6 L MCV (80-95) fL 91 MCH (27.0-33.0) pg 27.5 MCHC (32.0-36.0) % 30.3 L RDW (11.7-14.6) % 17.2 H Plt Count (130-400) 10^3/uL 198 MPV (8.0-11.0) fL 10.9 Immature Gran % 0.6 Neutrophils % 76.7 Lymphocytes % 11.1 Monocytes % 10.7 Eosinophils % 0.8 Basophils % 0.1 Nucleated RBC % (0.0-0.3) % 0.0 Absolute Neutrophils (1.2-6.7) 10^3/uL 5.92 Absolute Lymphocytes (1.2-3.4) 10^3/uL 0.86 L Absolute Monocytes (0.1-0.8) 10^3/uL 0.83 H Absolute Eosinophils (0.0-0.7) 10^3/uL 0.06 Absolute Basophils (0.0-0.2) 10^3/uL 0.01 Sodium (136-145) mmol/L 140 Potassium (3.5-5.1) mmol/L 3.5 D Chloride (98-107) mmol/L 102 Carbon Dioxide (21.0-32.0) mmol/L 30.4 Anion Gap (3-11) mmol/L 7.6 BUN (7-18) mg/dL 109 H* Creatinine (0.55-1.02) mg/dL 3.8 H* Est GFR (CKD-EPI 2020) (mL/min/1.73m2) 11.99 Glucose (74-106) mg/dL 140 H Calcium (8.5-10.1) mg/dL 8.5 Magnesium (1.8-2.4) mg/dL 2.1 Total Bilirubin (0.2-1.0) mg/dL 0.7 AST (15-37) U/L 27 ALT (14-59) U/L 39 Alkaline Phosphatase (46-116) U/L 39 L Troponin I (<or=60) ng/L 115 H* Total Protein (6.4-8.2) g/dL 7.0 Albumin (3.4-5.0) g/dL 3.3 L Urine Color (Yellow) Urine Clarity (Clear) Urine pH (5-8) Ur Specific Lequire (1.005-1.025) Urine Protein (Negative) mg/dL Urine Ketones (Negative) mg/dL Urine Blood (Negative) Urine Nitrite (Negative) Urine Bilirubin (Negative) Urine Urobilinogen (Up TO 0.2) EU/dL Ur Leukocyte Esterase (Negative) Urine RBC (0-2) HPF Urine WBC (0-5) HPF Ur Epithelial Cells (Negative) HPF Urine Crystals (Negative) HPF Urine Bacteria (Negative) HPF Urine Casts (Negative) LPF Urine Mucus (Negative) Ur Culture Indicated? Urine Glucose (Negative) mg/dL COVID-19 Source Nasopharynx SARS-CoV-2 (PCR) (Negative) Positive A Influenza Type A (PCR) (Negative) Negative Influenza Type B (PCR) (Negative) Negative RSV (PCR) (Negative) Negative Range/Units 10/23/22 10/23/22 10/23/22 13:24 15:10 15:10 WBC (4.4-10.8) 10^3/uL RBC (3.93-5.22) 10^6/uL Hgb (11.2-15.7) g/dL Hct (36.0-46.0) % MCV (80-95) fL MCH (27.0-33.0) pg MCHC (32.0-36.0) % RDW (11.7-14.6) % Plt Count (130-400) 10^3/uL MPV (8.0-11.0) fL Immature Gran % Neutrophils % Lymphocytes % Monocytes % Eosinophils % Basophils % Nucleated RBC % (0.0-0.3) % Absolute Neutrophils (1.2-6.7) 10^3/uL Absolute Lymphocytes (1.2-3.4) 10^3/uL Absolute Monocytes (0.1-0.8) 10^3/uL Absolute Eosinophils (0.0-0.7) 10^3/uL Absolute Basophils (0.0-0.2) 10^3/uL Sodium (136-145) mmol/L 139 Potassium (3.5-5.1) mmol/L 4.0 Chloride (98-107) mmol/L 104 Carbon Dioxide (21.0-32.0) mmol/L 28.9 Anion Gap (3-11) mmol/L 6.1 BUN (7-18) mg/dL 104 H* Creatinine (0.55-1.02) mg/dL 3.5 H Est GFR (CKD-EPI 2020) (mL/min/1.73m2) 13.23 Glucose (74-106) mg/dL 193 H Calcium (8.5-10.1) mg/dL 8.3 L Magnesium (1.8-2.4) mg/dL Total Bilirubin (0.2-1.0) mg/dL AST (15-37) U/L ALT (14-59) U/L Alkaline Phosphatase (46-116) U/L Troponin I (<or=60) ng/L 102 H* Total Protein (6.4-8.2) g/dL Albumin (3.4-5.0) g/dL Urine Color (Yellow) Bates Urine Clarity (Clear) Clear Urine pH (5-8) 5.0 Ur Specific Lequire (1.005-1.025) 1.010 Urine Protein (Negative) mg/dL 100 H Urine Ketones (Negative) mg/dL Negative Urine Blood (Negative) Trace-lysed H Urine Nitrite (Negative) Positive H Urine Bilirubin (Negative) Negative Urine Urobilinogen (Up TO 0.2) EU/dL 1.0 H Ur Leukocyte Esterase (Negative) Negative Urine RBC (0-2) HPF 0-2 Urine WBC (0-5) HPF Negative Ur Epithelial Cells (Negative) HPF Moderate Urine Crystals (Negative) HPF Negative Urine Bacteria (Negative) HPF Rare Urine Casts (Negative) LPF 0-2 Hyaline Urine Mucus (Negative) Negative Ur Culture Indicated? No/Sq. Contamination Urine Glucose (Negative) mg/dL 250 H COVID-19 Source SARS-CoV-2 (PCR) (Negative) Influenza Type A (PCR) (Negative) Influenza Type B (PCR) (Negative) RSV (PCR) (Negative) ECG Data Attestation: I personally reviewed and interpreted this ECG (s) as follows: Interpretation: Rate of 72, sinus, normal axis, [address] depression in V4 through V6 which is seen in previous EKG, no STEMI. HPI General Mode of arrival: EMS . Date/Time Provider Initiated Documentation: 10/23/22 12:36 . Limitations to Documentation: no limitations . Information obtained by: patient . HPI Narrative: Patient is a 72-year-old female with a history of chronic kidney disease, diabetes, CVA, COPD chronically on 2 L nasal cannula oxygen, hypertension, hyperlipidemia, GERD who was recently admitted here for what was thought to be a type II NSTEMI in the setting of acute COVID illness presents for generalized weakness while sitting on the toilet this morning. Patient states she was also recently diagnosed with a UTI and is finishing her antibiotics later today. She states she was on her way to the bathroom when she developed diarrhea which was loose. She states she was able to ambulate to the bathroom with use of her walker and while sitting on the toilet felt extremely weak and could not get up. She states her friend attempted to get her up but she was too weak. Patient denies any syncopal episode and states she was aware of the entire event. She admits to some headache and upper neck pain that occurs at times but denies any at present. She states when she sits on the toilet she has bilateral upper back and neck pain which is currently not present. Patient took Tylenol earlier today without relief. Patient states she has been eating and drinking and denies any known fever, chest pain, difficulty breathing, abdominal pain or vomiting. She states she has had a few episodes of mainly loose brown diarrhea. She denies any known hematochezia or melena. Related Data Home Medications Medication Instructions Recorded Confirmed blood-glucose meter (Immusoft #1 ea 11/26/20 10/23/22 Ultra2 Meter kit) cholecalciferol (vitamin D3) 25 25 mcg PO DAILY 08/30/21 10/23/22 mcg (1,000 unit) capsule (Vitamin D3) inhalational spacing device #2 ea 12/25/21 10/23/22 (Aerochamber MV spacer) sacubitril 24 mg-valsartan 26 mg 1 tab PO BID #90 tabs 03/17/22 10/23/22 tablet (Entresto) calcium carbonate 215 mg calcium 215 mg PO BID PRN 06/11/22 10/23/22 (500 mg) chewable tablet (Antacid Calcium) docusate sodium 100 mg capsule 100 mg PO DAILY 07/10/22 10/23/22 albuterol sulfate 90 mcg/actuation 2 puff inhalation Q6H PRN 07/11/22 10/23/22 aerosol inhaler shortness of breath or wheezing #18 grams aspirin 81 mg tablet,delayed 81 mg PO DAILY #90 tabs 07/11/22 10/23/22 release atorvastatin 80 mg tablet 80 mg PO QPM #90 tabs 07/11/22 10/23/22 blood-glucose meter,continuous #1 ea 07/11/22 10/23/22 (Dexcom G6 Quantitative Analyst Marketing misc) blood-glucose sensor (Dexcom G6 #3 ea 07/11/22 10/23/22 Sensor device) blood-glucose transmitter (Dexcom #1 ea 07/11/22 10/23/22 G6 Transmitter device) cetirizine 10 mg tablet 10 mg PO DAILY #90 tab-caps 07/11/22 10/23/22 empagliflozin 10 mg tablet 10 mg PO DAILY #90 tabs 07/11/22 10/23/22 ferrous sulfate 325 mg (65 mg 325 mg PO DAILY #90 tabs 07/11/22 10/23/22 iron) tablet,delayed release fluticasone propionate 50 2 spray intranasal DAILY PRN 07/11/22 10/23/22 mcg/actuation nasal allergy symptoms #16 grams spray,suspension (Flonase Allergy Relief) glycopyrrolate 9 mcg-formoterol 1 puff inhalation BID #10.7 grams 07/11/22 10/23/22 4.8 mcg HFA aerosol inhaler (Bevespi Aerosphere) pen needle,diabetic dual safty 30 #360 ea 09/09/22 12/22/22 gauge x 3/16 (BD AutoShield Duo Pen Needle) gabapentin 300 mg capsule 300 mg PO QHS #90 caps 07/16/22 10/23/22 spironolactone 25 mg tablet 25 mg PO DAILY #90 tabs 07/16/22 10/23/22 torsemide 20 mg tablet 20 mg PO BID #180 tabs 09/09/22 10/23/22 ascorbic acid (vitamin C) 500 mg 1,000 mg PO BID #28 tabs 10/15/22 10/23/22 tablet (Vitamin C) clopidogrel 75 mg tablet 75 mg PO DAILY #30 tabs 10/15/22 10/23/22 metoprolol succinate 50 mg 50 mg PO DAILY #30 tabs 10/15/22 10/23/22 tablet,extended release 24 hr (Toprol XL) pantoprazole 40 mg tablet,delayed 40 mg PO DAILY@0730 #30 tabs 10/15/22 10/23/22 release prednisone 5 mg tablet See Rx Instructions .Route 10/15/22 10/23/22 .COMPLEX #126 tabs zinc sulfate 50 mg zinc (220 mg) 220 mg PO DAILY@1030 #7 caps 10/15/22 10/23/22 capsule (Zinc-220) blood sugar diagnostic (OneTouch #500 ea 10/20/22 10/23/22 Ultra Test strips) ciprofloxacin HCl 250 mg tablet 250 mg PO BID #6 tabs 10/20/22 10/23/22 lancets (OneTouch UltraSoft #500 ea 10/20/22 10/23/22 Lancets) insulin aspart U-100 100 unit/mL 1 sliding scale dose subcut TID #9 10/22/22 10/23/22 (3 mL) subcutaneous pen SYRGS insulin glargine 100 unit/mL (3 30 unit (0.3 mL) subcut QAM #9 10/22/22 10/23/22 mL) subcutaneous pen (Lantus SYRGS Solostar U-100 Insulin) tiotropium 2.5 mcg-olodaterol 2.5 1 inh inhalation DAILY 10/22/22 10/23/22 mcg/actuation mist for inhalation (Stiolto Respimat) Previous Rx's Medication Instructions Recorded blood-glucose meter (PhosImmuneTouch #1 ea 11/26/20 Ultra2 Meter kit) inhalational spacing device #2 ea 12/25/21 (Aerochamber MV spacer) sacubitril 24 mg-valsartan 26 mg 1 tab PO BID #90 tabs 03/17/22 tablet (Entresto) albuterol sulfate 90 mcg/actuation 2 puff inhalation Q6H PRN 07/11/22 aerosol inhaler shortness of breath or wheezing #18 grams aspirin 81 mg tablet,delayed 81 mg PO DAILY #90 tabs 07/11/22 release atorvastatin 80 mg tablet 80 mg PO QPM #90 tabs 07/11/22 blood-glucose meter,continuous #1 ea 07/11/22 (Dexcom G6 Quantitative Analyst Marketing misc) blood-glucose sensor (Dexcom G6 #3 ea 07/11/22 Sensor device) blood-glucose transmitter (Dexcom #1 ea 07/11/22 G6 Transmitter device) cetirizine 10 mg tablet 10 mg PO DAILY #90 tab-caps 07/11/22 empagliflozin 10 mg tablet 10 mg PO DAILY #90 tabs 07/11/22 ferrous sulfate 325 mg (65 mg 325 mg PO DAILY #90 tabs 07/11/22 iron) tablet,delayed release fluticasone propionate 50 2 spray intranasal DAILY PRN 07/11/22 mcg/actuation nasal allergy symptoms #16 grams spray,suspension (Flonase Allergy Relief) glycopyrrolate 9 mcg-formoterol 1 puff inhalation BID #10.7 grams 07/11/22 4.8 mcg HFA aerosol inhaler (Bevespi Aerosphere) pen needle,diabetic dual safty 30 #360 ea 07/11/22 gauge x 3/16 (BD AutoShield Duo Pen Needle) gabapentin 300 mg capsule 300 mg PO QHS #90 caps 07/16/22 spironolactone 25 mg tablet 25 mg PO DAILY #90 tabs 07/16/22 torsemide 20 mg tablet 20 mg PO BID #180 tabs 09/09/22 ascorbic acid (vitamin C) 500 mg 1,000 mg PO BID #28 tabs 10/15/22 tablet (Vitamin C) clopidogrel 75 mg tablet 75 mg PO DAILY #30 tabs 10/15/22 metoprolol succinate 50 mg 50 mg PO DAILY #30 tabs 10/15/22 tablet,extended release 24 hr (Toprol XL) pantoprazole 40 mg tablet,delayed 40 mg PO DAILY@0730 #30 tabs 10/15/22 release prednisone 5 mg tablet See Rx Instructions .Route 10/15/22 .COMPLEX #126 tabs zinc sulfate 50 mg zinc (220 mg) 220 mg PO DAILY@1030 #7 caps 10/15/22 capsule (Zinc-220) blood sugar diagnostic (OneTouch #500 ea 10/20/22 Ultra Test strips) ciprofloxacin HCl 250 mg tablet 250 mg PO BID #6 tabs 10/20/22 lancets (OneTouch UltraSoft #500 ea 10/20/22 Lancets) insulin aspart U-100 100 unit/mL 1 sliding scale dose subcut TID #9 10/22/22 (3 mL) subcutaneous pen SYRGS insulin glargine 100 unit/mL (3 30 unit (0.3 mL) subcut QAM #9 10/22/22 mL) subcutaneous pen (Lantus SYRGS Solostar U-100 Insulin) Allergies Allergy/AdvReac Type Severity Reaction Status Date / Time codeine AdvReac Severe Cardiac Verified 10/23/22 12:17 Dysrythmia indomethacin AdvReac Intermediate Cardiac Verified 10/23/22 12:17 Dysrythmia lisinopril AdvReac cough Verified 10/23/22 12:17 General Stated Complaint: Dizzy/Sync BELKIS: 3 Review of Systems All systems reviewed & are unremarkable except as noted in HPI and below Constitutional Constitutional: Reports as per HPI, Denies chills, Denies fever(s) and Reports weakness Eyes Eyes: Denies blurry vision ENT Ears, Nose, Mouth, and Throat: Denies dizziness, Denies sore throat and Denies throat swelling Cardiovascular Cardiovascular: Denies chest pain and Denies dyspnea Respiratory Respiratory: Denies cough and Denies dyspnea Gastrointestinal Gastrointestinal: Denies abdominal pain, Denies diarrhea and Denies vomiting Genitourinary Genitourinary: Denies hematuria and Denies dysuria Musculoskeletal Musculoskeletal: Denies back pain and Denies numbness Integumentary/Breasts Skin/Breast: Denies lesions and Denies rash Neurologic Neurologic: Denies dizziness, Denies localized weakness, Denies numbness and Reports weakness Allergic/Immunologic Allergic/Immunologic: Denies throat swelling PFSH All Active Problems (Updated 10/23/22 @ 16:36 by Azeb Max DO) Generalized weakness (Acute) Diarrhea (Acute) Hypotension (Acute) Dehydration (Acute) Acute kidney injury superimposed on chronic kidney disease (Acute) Chronic respiratory failure with hypoxia (Acute) Palliative care patient (Acute) CKD (chronic kidney disease) stage 4, GFR 15-29 ml/min (Acute) COVID-19 virus infection (Acute ~10/2022) Non-ST elevation HI (NSTEMI) (Acute) Type 2 diabetes mellitus with retinopathy of both eyes, with long-term current use of insulin (Chronic) CVA (cerebral vascular accident) (Acute ~12/2021) Heart failure with reduced ejection fraction (Chronic) Chronic obstructive pulmonary disease (Chronic) 09/2021- O2 dependent on 2 l/min (O2 sat at 83% RA) Polymyalgia rheumatica (Chronic) Carotid atherosclerosis (Chronic) Essential hypertension (Chronic) GERD (gastroesophageal reflux disease) (Chronic) Pulmonary nodule (Chronic) Nicotine dependence, cigarettes, uncomplicated (Chronic) Annual LDCT Osteoarthritis of hips, bilateral (Chronic) Diabetic nephropathy (Chronic) Ventral hernia (Chronic) Generalized anxiety disorder (Chronic) Benign positional vertigo (Chronic) Migraine aura without headache (Chronic) Medical History (Updated 10/23/22 @ 16:36 by Azeb Max DO) Iron deficiency anemia Surgical History History of esophagogastroduodenoscopy (EGD) (07/30/18) S/P cholecystectomy S/P colonoscopy (07/30/18) S/P tonsillectomy Family History Mother No problems noted. Father Diabetes Daughter No problems noted. Daughter No problems noted. Daughter No problems noted. Daughter No problems noted. Social History Smoking/Tobacco Use Status: Current-Occasional Tobacco Type: cigarettes Smoking packs per day: 2 Smoking cigarettes per day: 40.0 Years smoked: 59 Smoking pack- years: 118.00 Smoking risk assessment performed?: Yes Alcohol Intake: never Drug use: Never Substance use type: does not use 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 Pets and animals: Yes Pets and animals: cat(s) Current gender identity: female What type of physical activity do you participate in: none [employer]: [employer] irma needs: No Do you feel safe at home: Yes Do you feel safe in your relationship?: Yes Additional Social history: Lives alone in apartment at [address]. 4 daughters Exam Const General: cooperative and no acute distress Orientation: alert, awake and oriented x3 HENMT Head: normal to inspection Face and sinus: normal facial exam Mouth: moist mucous membranes Eyes General: appearance normal, both eyes and all related structures Pupils: PERRL EOM: EOM intact bilaterally Neck Neck: normal visual inspection and No submandibular swelling Lymphatic: no lymphadenopathy noted Chest Chest: normal inspection of the chest and no tenderness Resp Effort & Inspection: normal respiratory effort and able to speak in complete sen tences Auscultation: clear to auscultation bilaterally Cardio Rate: regular rate Rhythm: regular rhythm GI Inspection: normal to inspection Palpation: soft, not firm, not rigid and nontender Auscultation: normal bowel sounds Back/Spine/Pelvis Thoracic/Lumbar Spine: thoracic and lumbar spine normal to inspection Skin General skin exam: no rashes or lesions noted Neuro General: patient alert, patient awake, patient oriented x3, moves all extremities and no meningeal signs Cranial Nerves: CN's II-XI intact bilaterally Cognition: normal cognition Speech: speech normal Motor: muscle tone normal throughout Sensory Exam: no sensory deficits noted Extrem General: normal to inspection, full ROM, capillary refill normal, no calf tenderness bilaterally and no edema Psych Appearance: grossly normal Mental Status: mental status grossly normal Speech and Movement: speech and movement normal Affect: normal affect Course Vital Signs Vital signs: Vital Signs Temperature 98.2 F 10/23/22 12:08 Pulse 44 L 10/23/22 12:08 Respiratory Rate 24 10/23/22 12:08 Blood Pressure 69/52 L 10/23/22 12:08 Pulse Oximetry 91 L 10/23/22 12:08 Temperature 98.2 F 10/23/22 12:08 Temperature Source Temporal Artery Scan 10/23/22 12:08 Pulse 44 L 10/23/22 12:08 Respiratory Rate 24 10/23/22 12:08 Blood Pressure 69/52 L 10/23/22 12:08 Blood Pressure Position Sitting 10/23/22 12:08 Pulse Oximetry 91 L 10/23/22 12:08 Oxygen Delivery Method Room Air 10/23/22 12:08 Oxygen Flow Rate 0 10/23/22 12:08 Pain Level 0 10/23/22 12:08
[2022-10-23 12:34] LABS: Abs Immature Grans 0.05 10^3/uL (0.0-0.06); Absolute Basophil Count 0.01 10^3/uL (0.0-0.2); Absolute Eosinophil Count 0.06 10^3/uL (0.0-0.7); Absolute Lymphocyte Count 0.86 10^3/uL (1.2-3.4); Absolute Monocyte Count 0.83 10^3/uL (0.1-0.8); Absolute Neutrophil Count 5.92 10^3/uL (1.2-6.7); Basophils % 0.1; Eosinophils % 0.8; HCT 34.6 % (36.0-46.0); HGB 10.5 g/dL (11.2-15.7); Immature Grans % 0.6; Lymphocytes % 11.1; MCH 27.5 pg (27.0-33.0); MCHC 30.3 % (32.0-36.0); MCV 91 fL (80-95); MPV 10.9 fL (8.0-11.0); Monocytes % 10.7; Neutrophils % 76.7; Platelet Count 198 10^3/uL (130-400); RBC 3.82 10^6/uL (3.93-5.22); RDW 17.2 % (11.7-14.6); RDW-SD 57.2 fL; WBC 7.73 10^3/uL (4.4-10.8)
[2022-10-23] MEDS: Normal Saline 500 ML IV ×2 (12:45→14:10)
[2022-10-23 12:50] LABS: ALT 39 U/L (14-59); AST 27 U/L (15-37); Albumin 3.3 g/dL (3.4-5.0); Alkaline Phosphatase 39 U/L (46-116); Anion Gap 7.6 mmol/L (3-11); Bilirubin, Total 0.7 mg/dL (0.2-1.0); CO2 30.4 mmol/L (21.0-32.0); Calcium 8.5 mg/dL (8.5-10.1); Chloride 102 mmol/L (98-107); Estimated GFR 11.99 (mL/min/1.73m2); Glucose 140 mg/dL (74-106); Magnesium 2.1 mg/dL (1.8-2.4); Potassium 3.5 mmol/L (3.5-5.1); Sodium 140 mmol/L (136-145)
[2022-10-23 12:52] LABS: BUN 109 mg/dL (7-18); CREATININE 3.8 mg/dL (0.55-1.02); Troponin I 115 ng/L (<or=60)
[2022-10-23 13:11] LABS: Influenza A PCR Negative (Negative); Influenza B PCR Negative (Negative); RSV PCR Negative (Negative)
[2022-10-23 13:12] LABS: COVID-19 PCR Positive (Negative); Source Nasopharynx
[2022-10-23 13:32] LABS: Bilirubin Negative (Negative); Blood Trace-lysed (Negative); Clarity Clear (Clear); Glucose 250 mg/dL (Negative); Ketones Negative (Negative); Leukocyte Esterase Negative (Negative); Nitrite Positive (Negative)
[2022-10-23 13:47] LABS: Bacteria Rare HPF (Negative); C & S Indicated? No/Sq. Contamination; Casts 0-2 Hyaline LPF (Negative); Crystals Negative HPF (Negative); Epithelial Cells Moderate HPF (Negative); Mucus Negative (Negative); RBC 0-2 HPF (0-2); WBC Negative HPF (0-5)
--- NOTE | 2022-10-23 14:42 | DI.RAD_ITS ---
Exam(s) XR CHEST 2V PA LATERAL EXAM: XR CHEST 2V PA LATERAL CLINICAL HISTORY: weakness, r/o acute disease TECHNIQUE: 2D digital imaging was performed. COMPARISON: CR XR RIBS LT W PA LAT CHEST from 02/18/2022 CR,XR XR PORTABLE CHEST AP from 04/01/2022 CR,XR XR CHEST 2V PA LATERAL from 04/10/2022 CR XR PORTABLE CHEST AP from 05/01/2022 CR,XR XR PORTABLE CHEST AP from 05/09/2022 CR,XR XR PORTABLE CHEST AP from 10/12/2022 FINDINGS: HEART: Normal size. Aorta: Mildly enlarged. PULMONARY VASCULATURE: Normal. LUNGS: Scarring left lung base. Mild fibrotic changes. No acute infiltrate. PLEURAL SPACE: No pleural effusion or pneumothorax. BONE:Unremarkable for age. IMPRESSION: No acute abnormality. DATA REPOSITORY: RADIATION DOSE DELIVERED:
[2022-10-23 15:41] LABS: Anion Gap 6.1 mmol/L (3-11); CO2 28.9 mmol/L (21.0-32.0); CREATININE 3.5 mg/dL (0.55-1.02); Calcium 8.3 mg/dL (8.5-10.1); Chloride 104 mmol/L (98-107); Estimated GFR 13.23 (mL/min/1.73m2); Glucose 193 mg/dL (74-106); Sodium 139 mmol/L (136-145)
[2022-10-23 15:42] LABS: BUN 104 mg/dL (7-18)
[2022-10-23 15:52] LABS: Troponin I 102 ng/L (<or=60)
== END 2022-10-23 16:50 | disposition home or self-care (01) ==
PROVIDERS: Emergency Provider Physician Assistant; PCP Nurse Practitioner Family
DX: U07.1 COVID-19 (principal); I95.9 Hypotension, unspecified; I12.9 Hypertensive chronic kidney disease with stage 1 through stage 4 chronic kidney disease, or unspecified chronic kidney disease; N18.9 Chronic kidney disease, unspecified; E78.5 Hyperlipidemia, unspecified; I21.A1 Myocardial infarction type 2; E11.22 Type 2 diabetes mellitus with diabetic chronic kidney disease; J44.9 Chronic obstructive pulmonary disease, unspecified; R77.8 Other specified abnormalities of plasma proteins; Z86.73 Personal history of transient ischemic attack (TIA), and cerebral infarction without residual deficits; Z79.82 Long term (current) use of aspirin; Z79.52 Long term (current) use of systemic steroids; Z79.4 Long term (current) use of insulin
CPT/HCPCS: 36415; 80048; 80053; 87637; 93005; 96360; 96361; 99284; 99285; 71046; 81003; 81015; 83735; 84484; 85025; 93010

== ENCOUNTER 2022-10-28 15:43 | Outpatient (REF) | payer MEDICARE, MEDICAID, SELFPAY ==
[2022-10-28 16:58] LABS: ALT 109 U/L (14-59); AST 57 U/L (15-37); Albumin 3.5 g/dL (3.4-5.0); Alkaline Phosphatase 51 U/L (46-116); Anion Gap 9.1 mmol/L (3-11); BUN 74 mg/dL (7-18); Bilirubin, Total 0.7 mg/dL (0.2-1.0); CO2 29.9 mmol/L (21.0-32.0); CREATININE 3.2 mg/dL (0.55-1.02); Calcium 8.4 mg/dL (8.5-10.1); Chloride 101 mmol/L (98-107); Estimated GFR 14.73 (mL/min/1.73m2); Glucose 151 mg/dL (74-106); Sodium 140 mmol/L (136-145); Total Protein 6.9 g/dL (6.4-8.2)
== END 2022-10-28 15:44 | disposition home or self-care (01) ==
LOC: LBN 15:43
PROVIDERS: Visit Provider Nurse Practitioner Family
DX: I21.4 Non-ST elevation (NSTEMI) myocardial infarction (principal); U07.1 COVID-19; I50.22 Chronic systolic (congestive) heart failure
CPT/HCPCS: 80053

== ENCOUNTER → 2022-10-29 01:57 | Outpatient (CLI) | payer MEDICARE, MEDICAID, SELFPAY ==
--- NOTE | 2022-10-29 06:45 | DI.US_ITS ---
Exam(s) US RENAL EXAM: US RENAL CLINICAL HISTORY: PALAK on CKD,n17.9,n18.9. TECHNIQUE: Alvarado scale, color and spectral Doppler were used. COMPARISON: US US RENAL from 01/12/2020 FINDINGS: Renal size in cm: Right: 11.0. Left: 12.4. Echogenicity: Normal. Hydronephrosis: No. Cyst or mass: No. Nephrolithiasis: No. Other findings: None. Bladder:Normal. Ureteral jets: Right: Was not identified on this examination. Left: Was not identified on this examination. Prevoid vol:82 cc Postvoid vol:The patient was unable to void during the examination. Renal color flow: Symmetric and within normal limits. IMPRESSION: Unremarkable renal ultrasound. DATA REPOSITORY:
== END ==
PROVIDERS: Visit Provider Nurse Practitioner Family
DX: N17.9 Acute kidney failure, unspecified (principal); N18.9 Chronic kidney disease, unspecified
CPT/HCPCS: 76770

== ENCOUNTER → 2022-11-20 09:51 | Outpatient (BNVA) | payer MEDICARE, MEDICAID, SELFPAY | PROVIDERS: PCP Nurse Practitioner Family; Referring Provider Nurse Practitioner Family; Visit Provider Internal Medicine Cardiovascular Disease | DX: N18.4 Chronic kidney disease, stage 4 (severe) (principal); J43.2 Centrilobular emphysema; Z99.81 Dependence on supplemental oxygen; J96.11 Chronic respiratory failure with hypoxia; I50.20 Unspecified systolic (congestive) heart failure; I25.2 Old myocardial infarction; F17.210 Nicotine dependence, cigarettes, uncomplicated | CPT/HCPCS: 99214 ==

== ENCOUNTER 2022-12-17 10:58 | Outpatient (CLI) | payer MEDICARE, MEDICAID, SELFPAY ==
[2022-12-17 12:51] LABS: ALT 42 U/L (14-59); AST 34 U/L (15-37); Albumin 3.5 g/dL (3.4-5.0); Alkaline Phosphatase 57 U/L (46-116); Anion Gap 4.8 mmol/L (3-11); BUN 64 mg/dL (7-18); Bilirubin, Total 0.7 mg/dL (0.2-1.0); CO2 34.2 mmol/L (21.0-32.0); CREATININE 2.6 mg/dL (0.55-1.02); Calcium 8.7 mg/dL (8.5-10.1); Chloride 101 mmol/L (98-107); Glucose 90 mg/dL (74-106); Potassium 4.5 mmol/L (3.5-5.1); Sodium 140 mmol/L (136-145); Total Protein 7.1 g/dL (6.4-8.2)
[2022-12-17 12:53] LABS: NT-proBNP > 35000 pg/mL (<300)
== END 2022-12-17 10:59 | disposition home or self-care (01) ==
LOC: LOS 10:59
PROVIDERS: PCP Nurse Practitioner Family; Referring Provider Nurse Practitioner Family; Visit Provider Nurse Practitioner Family
DX: N17.9 Acute kidney failure, unspecified (principal); N18.9 Chronic kidney disease, unspecified; R06.02 Shortness of breath
CPT/HCPCS: 36415; 80053; 83880; 85025

== ENCOUNTER 2022-12-17 11:40 | Outpatient (CLI) | payer MEDICARE, MEDICAID, SELFPAY ==
--- NOTE | 2022-12-17 11:53 | DI.RAD_ITS ---
Exam(s) XR CHEST 2V PA LATERAL EXAM: XR CHEST 2V PA LATERAL CLINICAL HISTORY: worsening SOB,j96.11,chronic resp failure with hypoxia TECHNIQUE: 2D digital imaging was performed. COMPARISON: CR,XR XR PORTABLE CHEST AP from 10/12/2022 CR XR CHEST 2V PA LATERAL from 10/23/2022 FINDINGS: HEART: Irhp-yc-nifjrweo enlargement, stable. Aorta: Not dilated. PULMONARY VASCULATURE: Normal. LUNGS: Diffuse interstitial changes. Increased densities seen at both lung bases could represent ate lectasis versus infiltrates. PLEURAL SPACE: No pleural effusion or pneumothorax. BONE:Unremarkable for age. IMPRESSION: Underlying fibrotic changes. Increased basilar densities could represent atelectasis versus infiltra hugo. DATA REPOSITORY: RADIATION DOSE DELIVERED:
== END 2022-12-17 12:00 ==
LOC: DI 11:41
PROVIDERS: PCP Nurse Practitioner Family; Visit Provider Nurse Practitioner Family
DX: J96.11 Chronic respiratory failure with hypoxia (principal); R06.02 Shortness of breath
CPT/HCPCS: 71046

== ENCOUNTER 2022-12-17 11:50 | Outpatient (CLI) | payer MEDICARE, MEDICAID, SELFPAY ==
[2022-12-17 12:21] LABS: Abs Immature Grans 0.03 10^3/uL (0.0-0.06); Absolute Basophil Count 0.01 10^3/uL (0.0-0.2); Absolute Eosinophil Count 0.04 10^3/uL (0.0-0.7); Absolute Lymphocyte Count 0.42 10^3/uL (1.2-3.4); Absolute Monocyte Count 0.31 10^3/uL (0.1-0.8); Absolute Neutrophil Count 8.13 10^3/uL (1.2-6.7); Basophils % 0.1; Eosinophils % 0.4; HCT 27.5 % (36.0-46.0); HGB 7.8 g/dL (11.2-15.7); Immature Grans % 0.3; Lymphocytes % 4.7; MCH 26.6 pg (27.0-33.0); MCHC 28.4 % (32.0-36.0); MCV 94 fL (80-95); MPV 10.2 fL (8.0-11.0); Monocytes % 3.5; Platelet Count 239 10^3/uL (130-400); RBC 2.93 10^6/uL (3.93-5.22); RDW 14.4 % (11.7-14.6); RDW-SD 49.6 fL; WBC 8.94 10^3/uL (4.4-10.8)
[2022-12-17 12:49] LABS: ALT 40 U/L (14-59); AST 33 U/L (15-37); Albumin 3.5 g/dL (3.4-5.0); Alkaline Phosphatase 56 U/L (46-116); Anion Gap 6.2 mmol/L (3-11); BUN 59 mg/dL (7-18); Bilirubin, Total 0.7 mg/dL (0.2-1.0); CO2 33.8 mmol/L (21.0-32.0); CREATININE 2.6 mg/dL (0.55-1.02); Calcium 8.6 mg/dL (8.5-10.1); Chloride 101 mmol/L (98-107); Glucose 88 mg/dL (74-106); Potassium 4.5 mmol/L (3.5-5.1); Sodium 141 mmol/L (136-145); Total Protein 7.1 g/dL (6.4-8.2)
== END 2022-12-17 11:51 | disposition home or self-care (01) ==
LOC: LBO 11:58
PROVIDERS: PCP Nurse Practitioner Family; Visit Provider Nurse Practitioner Family
DX: M35.3 Polymyalgia rheumatica (principal)
CPT/HCPCS: 36415; 80053; 85025

== ENCOUNTER 2022-12-17 14:00 | Inpatient (IN) | payer MEDICARE, MEDICAID, SELFPAY ==
[2022-12-17] VITALS (39 sets, daily range): BP systolic 62–125; BP diastolic 38–102; PULSE 83–216; RESP 13–55; TEMP 36.4–36.8; O2SAT 94–100
--- NOTE | 2022-12-17 14:46 | ED.GENADUL_ITS ---
Discharge Plan Discharge Details Chief Complaint: SOB Primary Care Provider: Katherine Andre ED Provider: Dudley Ashley Hitterdal Meds and New Rx's Prescriptions: No Action albuterol sulfate 90 mcg/actuation HFA aerosol inhaler 2 puff inhalation Q6H PRN (Reason: shortness of breath or wheezing) Qty: 18 4RF cetirizine 10 mg tablet 10 mg PO DAILY Qty: 90 3RF aspirin 81 mg tablet,delayed release (DR/EC) 81 mg PO DAILY Qty: 90 3RF atorvastatin 80 mg tablet 80 mg PO QPM Qty: 90 3RF fluticasone propionate [Flonase Allergy Relief] 50 mcg/actuation spray,suspension 2 spray intranasal DAILY PRN (Reason: allergy symptoms) Qty: 16 4RF Rx Instructions: administer into each nostril insulin aspart U-100 100 unit/mL (3 mL) insulin pen 1 sliding scale dose subcut TID Qty: 9 3RF Rx Instructions: Sliding Scale Insulin Instructions 60-124 = 0 126-150 = 4 151-200 = 6 201-300 = 8 301-350 = 10 351-400 = 12 prednisone 10 mg tablet 10 mg PO DAILY prednisone 2.5 mg tablet 5 mg PO DAILY (DME) pen needle, diabetic [BD Ultra-Fine Short Pen Needle] 31 gauge x 5/16 needle See Rx Instructions .MEDSUPPLY Qty: 360 3RF Rx Instructions: Use with pens daily insulin glargine [Lantus Solostar U-100 Insulin] 100 unit/mL (3 mL) insulin pen 26 unit subcut QAM Qty: 9 3RF glucose [Dex4 Glucose Quick Dissolve] 4 gram tablet,chewable 16 g PO ONCE PRN (Reason: hypoglycemia) Qty: 60 4RF Rx Instructions: 4 tablets if blood sugar less than 70. May repeat once after 15 minutes if blood sugar still less than 70 then follow with a snack or meal (DME) FreeStyle Consuelo 14 Day Beeler Misc See Rx Instructions .MEDSUPPLY Qty: 1 4RF Rx Instructions: Continuous glucose monitor (DME) FreeStyle Consuelo 14 Day Sensor Kit See Rx Instructions .MEDSUPPLY Qty: 6 4RF Rx Instructions: Continuous glucose monitor (DME) Aerochamber MV Spacer See Rx Instructions .ROUTE .MEDSUPPLY Qty: 2 4RF Rx Instructions: Use with inhalers Bevespi Aerosphere 9-4.8 mcg HFA aerosol inhaler 2 puff inhalation BID Qty: 10.7 4RF Hold Instructions: Has not started and does not wish to for now Rx Instructions: 2 puffs twice a day (DME) blood-glucose meter [OneTouch Ultra2 Meter] Kit See Rx Instructions .MEDSUPPLY Qty: 1 2RF Rx Instructions: Check blood sugar twice a day Entresto 24-26 mg tablet 1 tab PO BID Qty: 90 4RF docusate sodium 100 mg capsule 100 mg PO DAILY empagliflozin 10 mg tablet 10 mg PO DAILY Qty: 90 3RF gabapentin 300 mg capsule 300 mg PO QHS Qty: 90 3RF spironolactone 25 mg tablet 25 mg PO DAILY Qty: 90 3RF Hold Instructions: PALAK torsemide 20 mg tablet 20 mg PO BID Qty: 180 3RF (DME) OneTouch Ultra Test Strip See Rx Instructions .MEDSUPPLY Qty: 500 3RF Rx Instructions: Check blood sugar five times a day (DME) lancets [OneTouch UltraSoft Lancets] Misc See Rx Instructions .ROUTE .MEDSUPPLY Qty: 500 3RF Rx Instructions: Check blood sugar five times a day clopidogrel 75 mg tablet 75 mg PO DAILY Qty: 90 3RF cholecalciferol (vitamin D3) [Vitamin D3] 25 mcg (1,000 unit) Capsule 25 mcg PO DAILY Medical Decision Making This is a mildly tachycardic and hypotensive 72-year-old female with end-stage COPD on home oxygen and worsening shortness of breath concerning for worsening heart failure with reduced ejection fraction based on bilateral B-lines small right-sided pleural effusion and increasing shortness of breath with activity. No black or bloody stools to suggest GI bleed. No chest pain to suggest ACS however will obtain an ECG and troponin to assess for myocardial injury. She has been having some diarrhea but no fevers and has a soft nontender abdomen so I am not concerned for intra-abdominal infection. She has had no cough so doubt pneumonia. She also notes no increased sputum production or increase in her sputum purulence no doubt COPD exacerbation. I considered pulmonary embolism given the tachycardia and hypotension. We will obtain a D-dimer. Given her tachycardia and hypotension I was also also concerned about sepsis based on positive SIRS criteria. We will draw 2 sets of blood cultures, treat empirica lly with vancomycin and ceftriaxone and will plan on obtaining a lactate. We will wait for her potassium prior to initiating diuretic treatment. Patient did have vomiting but as a soft nontender abdomen and no fevers so doubt C. difficile infection. Furthermore patient has had no recent antibiotics. 6 PM Potassium was reassuring so I treated with 40 mg of IV furosemide. I spoke with Dr. Azul and he graciously accepted the patient for inpatient hospitalization. Given GFR less than 30 I cannot complete a contrast load though my suspicion is low for PE given that her RV/LV and she is not hypoxic nor tachycardic and her hypotension has resolved. She will also need trending of her H&H to assess for any acute blood loss anemia which could also be attributing to her shortness of breath. HPI General Date/Time Provider Initiated Documentation: 12/17/22 14:46 . HPI Narrative: This is a 72-year-old female with a history of CKD, type 2 diabetes, COPD with chronic hypoxic respiratory failure on 3 L home oxygen and heart failure with reduced ejection fracture and an echo showing an EF of 44% and is now in the emergency department in the setting of worsening shortness of breath. Patient was seen yesterday and had her inhaler increased. She reports that this has not helped her. She has felt short of breath for the past week. She has had no fevers nor cough. She did have diarrhea twice today but has not been on any recent antibiotics has not had any abdominal pain nor any nausea nor vomiting. She occasionally smokes tobacco but denies routine ethanol. She denies any significant lower extremity swelling. She has had no unintentional weight gain. She has 2 pillow orthopnea and reports that this is slightly worse. She denies black or bloody stools. She is not anticoagulated beyond 81 mg of aspirin.. Related Data Home Medications Medication Instructions Recorded Confirmed blood-glucose meter ([employer] #1 ea 11/26/20 12/17/22 Ultra2 Meter kit) cholecalciferol (vitamin D3) 25 25 mcg PO DAILY 08/30/21 12/17/22 mcg (1,000 unit) capsule (Vitamin D3) sacubitril 24 mg-valsartan 26 mg 1 tab PO BID #90 tabs 03/17/22 12/17/22 tablet (Entresto) docusate sodium 100 mg capsule 100 mg PO DAILY 07/10/22 12/17/22 aspirin 81 mg tablet,delayed 81 mg PO DAILY #90 tabs 07/11/22 12/17/22 release atorvastatin 80 mg tablet 80 mg PO QPM #90 tabs 07/11/22 12/17/22 cetirizine 10 mg tablet 10 mg PO DAILY #90 tab-caps 07/11/22 12/17/22 empagliflozin 10 mg tablet 10 mg PO DAILY #90 tabs 07/11/22 12/17/22 fluticasone propionate 50 2 spray intranasal DAILY PRN 07/11/22 12/17/22 mcg/actuation nasal allergy symptoms #16 grams spray,suspension (Flonase Allergy Relief) gabapentin 300 mg capsule 300 mg PO QHS #90 caps 07/16/22 12/17/22 spironolactone 25 mg tablet 25 mg PO DAILY #90 tabs 07/16/22 12/17/22 torsemide 20 mg tablet 20 mg PO BID #180 tabs 09/09/22 12/17/22 blood sugar diagnostic ([employer], LLCTouch #500 ea 10/20/22 12/17/22 Ultra Test strips) lancets ([employer] UltraSoft #500 ea 10/20/22 12/17/22 Lancets) insulin aspart U-100 100 unit/mL 1 sliding scale dose subcut TID #9 10/22/22 12/17/22 (3 mL) subcutaneous pen SYRGS clopidogrel 75 mg tablet 75 mg PO DAILY #90 tabs 10/30/22 12/17/22 albuterol sulfate 90 mcg/actuation 2 puff inhalation Q6H PRN 11/04/22 12/17/22 aerosol inhaler shortness of breath or wheezing #18 grams prednisone 10 mg tablet 10 mg PO DAILY 11/14/22 12/17/22 flash glucose scanning reader #1 ea 12/17/22 12/17/22 (FreeStyle Consuelo 14 Day Beeler) flash glucose sensor ([employer] #6 ea 12/17/22 12/17/22 Consuelo 14 Day Sensor kit) glucose 4 gram chewable tablet 16 g PO ONCE PRN hypoglycemia #60 12/17/22 12/17/22 (Dex4 Glucose Quick Dissolve) tabs glycopyrrolate 9 mcg-formoterol 2 puff inhalation BID #10.7 grams 12/17/22 12/17/22 4.8 mcg HFA aerosol inhaler (Bevespi Aerosphere) inhalational spacing device #2 ea 12/17/22 12/17/22 (Aerochamber MV spacer) insulin glargine 100 unit/mL (3 26 unit (0.26 mL) subcut QAM #9 12/17/22 12/17/22 mL) subcutaneous pen (Lantus SYRGS Solostar U-100 Insulin) pen needle, diabetic 31 gauge x #360 ea 12/17/22 12/17/22 5/16 (BD Ultra-Fine Short Pen Needle) prednisone 2.5 mg tablet 5 mg PO DAILY 12/17/22 12/17/22 Previous Rx's Medication Instructions Recorded blood-glucose meter ([employer]ouch #1 ea 11/26/20 Ultra2 Meter kit) sacubitril 24 mg-valsartan 26 mg 1 tab PO BID #90 tabs 03/17/22 tablet (Entresto) aspirin 81 mg tablet,delayed 81 mg PO DAILY #90 tabs 07/11/22 release atorvastatin 80 mg tablet 80 mg PO QPM #90 tabs 07/11/22 cetirizine 10 mg tablet 10 mg PO DAILY #90 tab-caps 07/11/22 empagliflozin 10 mg tablet 10 mg PO DAILY #90 tabs 07/11/22 fluticasone propionate 50 2 spray intranasal DAILY PRN 07/11/22 mcg/actuation nasal allergy symptoms #16 grams spray,suspension (Flonase Allergy Relief) gabapentin 300 mg capsule 300 mg PO QHS #90 caps 07/16/22 spironolactone 25 mg tablet 25 mg PO DAILY #90 tabs 07/16/22 torsemide 20 mg tablet 20 mg PO BID #180 tabs 09/09/22 blood sugar diagnostic (OneTouch #500 ea 10/20/22 Ultra Test strips) lancets ([employer]ouch UltraSoft #500 ea 10/20/22 Lancets) insulin aspart U-100 100 unit/mL 1 sliding scale dose subcut TID #9 10/22/22 (3 mL) subcutaneous pen SYRGS clopidogrel 75 mg tablet 75 mg PO DAILY #90 tabs 10/30/22 albuterol sulfate 90 mcg/actuation 2 puff inhalation Q6H PRN 11/04/22 aerosol inhaler shortness of breath or wheezing #18 grams flash glucose scanning reader #1 ea 12/17/22 (FreeStyle Consuelo 14 Day Beeler) flash glucose sensor (FreeStyle #6 ea 12/17/22 Consuelo 14 Day Sensor kit) glucose 4 gram chewable tablet 16 g PO ONCE PRN hypoglycemia #60 12/17/22 (Dex4 Glucose Quick Dissolve) tabs glycopyrrolate 9 mcg-formoterol 2 puff inhalation BID #10.7 grams 12/17/22 4.8 mcg HFA aerosol inhaler (BevesRosterbot Aerosphere) inhalational spacing device #2 ea 12/17/22 (Aerochamber MV spacer) insulin glargine 100 unit/mL (3 26 unit (0.26 mL) subcut QAM #9 12/17/22 mL) subcutaneous pen (Lantus SYRGS Solostar U-100 Insulin) pen needle, diabetic 31 gauge x #360 ea 12/17/22 5/16 (BD Ultra-Fine Short Pen Needle) Allergies Allergy/AdvReac Type Severity Reaction Status Date / Time codeine AdvReac Severe Cardiac Verified 12/17/22 10:23 Dysrythmia indomethacin AdvReac Intermediate Cardiac Verified 12/17/22 10:23 Dysrythmia lisinopril AdvReac cough Verified 12/17/22 10:23 General Stated Complaint: SOB BELKIS: 3 PFSH All Active Problems (Updated 12/17/22 @ 11:44 by Katherine Andre NP) Acute kidney injury superimposed on chronic kidney disease (Acute) Chronic respiratory failure with hypoxia (Acute) CKD (chronic kidney disease) stage 4, GFR 15-29 ml/min (Acute) Non-ST elevation NE (NSTEMI) (Acute ~10/2022) Type 2 diabetes mellitus with retinopathy of both eyes, with long-term current use of insulin (Chronic) CVA (cerebral vascular accident) (Acute ~12/2021) Heart failure with reduced ejection fraction (Chronic) Chronic obstructive pulmonary disease (Chronic) O2 dependent on 3L NC Polymyalgia rheumatica (Chronic) Carotid atherosclerosis (Chronic) Essential hypertension (Chronic) GERD (gastroesophageal reflux disease) (Chronic) Pulmonary nodule (Chronic) Nicotine dependence, cigarettes, uncomplicated (Chronic) Annual LDCT Osteoarthritis of hips, bilateral (Chronic) Diabetic nephropathy (Chronic) Ventral hernia (Chronic) Generalized anxiety disorder (Chronic) Benign positional vertigo (Chronic) Migraine aura without headache (Chronic) Medical History (Updated 12/17/22 @ 11:44 by Katherine Andre NP) COVID-19 virus infection (~10/2022) Iron deficiency anemia Palliative care patient Surgical History History of esophagogastroduodenoscopy (EGD) (07/30/18) S/P cholecystectomy S/P colonoscopy (07/30/18) S/P tonsillectomy Family History Mother No problems noted. Father Diabetes Daughter No problems noted. Daughter No problems noted. Daughter No problems noted. Daughter No problems noted. 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 4 daughters Exam Narrative Exam Narrative: General: Chronically ill-appearing no acute distress speaking in complete sentences. Wearing 3 L of nasal cannula Head: Normocephalic, atraumatic Ear, nose, mouth, throat: Grossly normal inspection. Normal voice, handling secretions normally. Neck: Trachea midline. Cardiovascular: Well-perfused distal extremities. Irregular irregular rhythm. No significant lower extremity pitting edema. Mild JVD. Negative hepatojugular reflex. Respiratory: Nonlabored respiration. Bibasilar crackles. Gastrointestinal: Nondistended abdomen. Musculoskeletal: Moving all 4 extremities spontaneously. Skin: Normal for age and race, grossly normal temperature and turgor. No acute rash. Neurologic: Alert and appropriate, no apparent acute deficits. Psychiatric: Mood and manner are appropriate. Grooming and personal hygiene are appropriate. Course Vital Signs Vital signs: Vital Signs Temperature 36.4 C 12/17/22 14:13 Pulse 98 H 12/17/22 14:13 Respiratory Rate 22 12/17/22 14:13 Blood Pressure 86/47 L 12/17/22 14:13 Pulse Oximetry 95 12/17/22 14:13 Temperature 36.4 C 12/17/22 14:13 Temperature Source Tympanic 12/17/22 14:13 Pulse 98 H 12/17/22 14:13 Respiratory Rate 22 12/17/22 14:13 Blood Pressure 86/47 L 12/17/22 14:13 Blood Pressure Position Sitting 12/17/22 14:13 Pulse Oximetry 95 12/17/22 14:13 Oxygen Delivery Method Nasal Cannula 12/17/22 14:13 Oxygen Flow Rate 3 12/17/22 14:13 Pain Level 0 12/17/22 14:13 Critical Care Time Critical Care Time Critical Care Time: Yes Total Critical Care Time: 30 Attestation: I completed 30 minutes of critical care time on this patient in acute management of her heart failure with reduced ejection fraction and hypotension. POCUS Exam (ED) Limited Cardiac Exam REASON FOR EXAM: Dyspnea DIFFERENTIAL DIAGNOSES: Poor squeeze, aortic outflow tract less than 4 cm, RV less than LV, no significant pericardial effusion, positive spine sign right, bilateral anterior B-lines. Exam complete
[2022-12-17 15:20] LABS: Abs Immature Grans 0.02 10^3/uL (0.0-0.06); Absolute Basophil Count 0.02 10^3/uL (0.0-0.2); Absolute Eosinophil Count 0.01 10^3/uL (0.0-0.7); Absolute Lymphocyte Count 0.42 10^3/uL (1.2-3.4); Absolute Monocyte Count 0.48 10^3/uL (0.1-0.8); Absolute Neutrophil Count 7.55 10^3/uL (1.2-6.7); Basophils % 0.2; Eosinophils % 0.1; HCT 26.4 % (36.0-46.0); HGB 7.6 g/dL (11.2-15.7); Immature Grans % 0.2; Lymphocytes % 4.9; MCHC 28.8 % (32.0-36.0); MCV 94 fL (80-95); Monocytes % 5.6; Platelet Count 224 10^3/uL (130-400); RBC 2.81 10^6/uL (3.93-5.22); RDW 14.3 % (11.7-14.6); RDW-SD 49.5 fL
[2022-12-17 15:21] LABS: Lactate 1.4 mmol/L (0.6-1.4)
[2022-12-17 15:41] LABS: ALT 43 U/L (14-59); AST 33 U/L (15-37); Albumin 3.5 g/dL (3.4-5.0); Alkaline Phosphatase 63 U/L (46-116); Anion Gap 7.2 mmol/L (3-11); BUN 66 mg/dL (7-18); Bilirubin, Total 0.7 mg/dL (0.2-1.0); CO2 32.8 mmol/L (21.0-32.0); CREATININE 2.8 mg/dL (0.55-1.02); Calcium 8.7 mg/dL (8.5-10.1); Chloride 100 mmol/L (98-107); Estimated GFR 17.29 (mL/min/1.73m2); Glucose 210 mg/dL (74-106); Potassium 4.4 mmol/L (3.5-5.1); Sodium 140 mmol/L (136-145); Total Protein 7.2 g/dL (6.4-8.2)
--- NOTE | 2022-12-17 15:45 | RT.EKG_ITS ---
APPROVED REPORT Exam: Resting ECG Reason for Exam: epigastric pain Patient Location: E HR:94 bpm ECG Measurements Heart Rate 94 AXIS DE 142 P 0 QRSd 100 QRS -10 QT 384 T 225 QTc 481 Conclusion Sinus rhythm...normal P axis, V-rate 60- 99 Ventricular bigeminy...bigeminy string>4 w/ V complexes Probable left atrial enlargement...P >50mS, <-0.10mV V1 Low voltage, extremity and precordial leads...extremity<0.5mV, precordial<1.0mV Nonspecific T abnormalities, lateral leads...T <-0.10mV, I aVL V5 V6 Normal sinus rhythm at a rate of 94 with interventricular conduction delay and a QRS of 100 ms. Mult iple PVCs. Low voltage in precordial leads. Slightly more pronounced compared to prior dated last y ear. Lateral ST segment depressions mild also slightly more pronounced compared to last year. Diffi cult to interpret rhythm and V6. No obvious acute injury pattern.
[2022-12-17 15:54] LABS: NT-proBNP 706 pg/mL (<300); Troponin I < 50 ng/L (<or=60)
[2022-12-17] MEDS: cefTRIAXone 2 GM/50 ML BAG IVPB (16:00)
[2022-12-17 16:19] LABS: D-Dimer 1359 ng/mlFEU (<500)
[2022-12-17] MEDS: VANCOMYCIN/WATER (PEG) 1.5 GM/300 ML BAG IVPB (16:34)
[2022-12-17 17:36] LABS: Bilirubin Negative (Negative); Blood Trace-intact (Negative); Clarity Clear (Clear); Glucose 500 mg/dL (Negative); Ketones Negative (Negative); Leukocyte Esterase Trace (Negative); Nitrite Negative (Negative); Specific Gravity 1.015 (1.005-1.025); Urobilinogen 0.2 EU/dL (Up TO 0.2); pH 5.5 (5-8)
[2022-12-17 17:49] LABS: RBC 0-2 HPF (0-2)
[2022-12-17 17:50] LABS: Bacteria Few HPF (Negative); C & S Indicated? Yes; Casts Negative LPF (Negative); Crystals Negative HPF (Negative); Epithelial Cells Few HPF (Negative); Mucus Negative (Negative)
[2022-12-17 18:12] LABS: Source Nasal/Nares
[2022-12-17 18:46] LABS: COVID-19 PCR Negative (Negative)
[2022-12-17 18:49] LABS: Troponin I 79 ng/L (<or=60)
--- NOTE | 2022-12-17 19:01 | HPE_ITS ---
Date of service: 12/17/22 Time of Service: 19:01 Assessment and Plan Assessment and plan (1) Acute on chronic HFrEF (heart failure with reduced ejection fraction): Status: Acute Assessment and plan: acute exacerbation of chronic HFREF. Will use iv lasix to diurese her. Cycle troponin I levels. Presumably type II demand ischemia however can not exclude recent ACS given the progressive dyspnea over past couple weeks. Check follow up echocardiogram and get cardiology consult in the a.m. Will place on low sodium diabetic/heart health diet. (2) Elevated troponin I level: Status: Acute Assessment and plan: initial troponin I was normal at <50, 3hr troponin mildly elevated at 79 but she remains pain free. Will cycle troponin, if continues to rise then consider heparin drip. continue DAPT. Check echo to evaluate for RWMA and worsening LV fxn. (3) CKD (chronic kidney disease) stage 4, GFR 15-29 ml/min: Status: Acute Assessment and plan: stable BUN and creatinine since her last admission her levels are actually improved, monitor BMP while receiving iv diuretics. (4) Type 2 diabetes mellitus with retinopathy of both eyes, with long-term current use of insulin: Status: Chronic Assessment and plan: continue basal/bolus coverage;monitor glucose AC/HS, check glycohemoglobin A1c (last level 6.8% couple months ago). (5) Chronic obstructive pulmonary disease: Status: Chronic Assessment and plan: Not having COPD exacerbation. Will continue her home inhalers on prn basis Qualifiers: COPD type: emphysema Emphysema type: centrilobular Qualified Code(s): J43.2 - Centrilobular emphysema (6) Iron deficiency anemia: Assessment and plan: check stool for OB, check iron levels, B12 and folate. monitor hemoglobin, if Hb does not improve w/ diuresis or actually drops then have consider that she is having ongoing occult blood loss. She may need transfusion to help w/ her dyspnea given her LV dysfunction. Add GI protection w/ protonix (7) Polymyalgia rheumatica: Status: Chronic Assessment and plan: continue home dose of prednisone History of Present Illness History of Present Illness Chief Complaint: dyspnea Narrative: 72 yr old female w/ PMH of oxygen dependent COPD (3 LPM), HFREF (LVEF 40%, global LV hypokinesis on latest echo 10/15/22), CKD stage 4 (baseline creatinine 2.5 to 2.8), type 2 DM on insulin who was hospitalized @ [facility] 10/12-10/15/22 for COVID-19 infection, and type 2 NSTEMI and HFREF. She was discharged on metoprolol XL, DAPT (ASA, Plavix) after 48 hr of heparin, Entresto and Jardiance , torsemide and spironolactone were resumed but her glipizide and Lantus were stopped d/t hypoglycemia. She completed treatment w/ Remdesivir and steroids during that admission. Her discharge creatinne was 2.7 however, she ended up in the ED on 10/24 w/ dehydration d//t diarrhea, and hypotension. She was rehydrated in the ED and released. At the time her creatinine was 3.8 but came down to 3.2 by 10/28. Upon follow up w/ her PCP on 11/14 her spironolactone was put on hold and her metoprolol was stopped d/t hypotension. She now presents w/ 3 weeks of increasing dyspnea w/out chest pain or pressure and w/out fever, chills, or increased sputum production. She has been experiencing orthopnea and can not walk more than a few feet from the bed to the chair w/out dyspnea. She saw her PCP today who found her to have increased lung rales but no pedal edema and ordered CXR and labs (CBC, CMP, BNP). CXR demonstrated diffuse interstitial changes and bibasilar atelectasis vs infiltrates and labs were remarkable for stable BUN and creatinine 64 and 2.6, elevated BNP >35,000 (prior levels have been 10,000 to 12,000) and she was referred to the ED for evaluation. Dr. Ashley evaluated her and included POCUS cardiac and lung exam. See his notes for details. He concluded she was in acute CHF exacerbation and gave her lasix 40 mg IVP. She is now admitted for treatement of her CHF. However her labs also included CBC that demonstrated worsening anemia w/ Hb of 7.8 gm but no leukocytosis (WBC 8900). She denies any melena nor any hematochezia and no abdominal pains. Review of Systems Constitutional Constitutional: Reports as per HPI Cardiovascular Cardiovascular: Reports as per HPI, Denies chest pain, Reports pedal edema, Denies leg edema, Denies palpitations, Reports dyspnea, Reports dyspnea on exertion and Reports orthopnea Respiratory Respiratory: Denies change in phlegm color, Denies chest congestion, Denies cough, Reports dyspnea and Reports dyspnea on exertion Gastrointestinal Gastrointestinal: Reports system reviewed and no additional complaints, except as documented and Reports other (increasing abdominal girth over past 2 weeks, pants fitting tigher) Genitourinary Genitourinary: Reports system reviewed and no additional complaints, except as documented Musculoskeletal Musculoskeletal: Reports system reviewed and no additional complaints, except as documented Integumentary/Breasts Skin/Breast: Reports system reviewed and no additional complaints, except as documented Neurologic Neurologic: Reports system reviewed and no additional complaints, except as documented Endocrine Endocrine: Reports system reviewed and no additional complaints, except as documented and Denies palpitations Hematologic/Lymphatic Hematologic/Lymphatic: Reports system reviewed and no additional complaints, except as documented Allergic/Immunologic Allergic/Immunologic: Reports system reviewed and no additional complaints, except as documented PFSH All Active Problems (Updated 12/18/22 @ 00:09 by Padilla Tobar MD) Elevated troponin I level (Acute) Acute on chronic HFrEF (heart failure with reduced ejection fraction) (Acute) Acute kidney injury superimposed on chronic kidney disease (Acute) Chronic respiratory failure with hypoxia (Acute) CKD (chronic kidney disease) stage 4, GFR 15-29 ml/min (Acute) Non-ST elevation ND (NSTEMI) (Acute ~10/2022) Type 2 diabetes mellitus with retinopathy of both eyes, with long-term current use of insulin (Chronic) CVA (cerebral vascular accident) (Acute ~12/2021) Heart failure with reduced ejection fraction (Chronic) Chronic obstructive pulmonary disease (Chronic) O2 dependent on 3L NC Polymyalgia rheumatica (Chronic) Carotid atherosclerosis (Chronic) Essential hypertension (Chronic) GERD (gastroesophageal reflux disease) (Chronic) Pulmonary nodule (Chronic) Nicotine dependence, cigarettes, uncomplicated (Chronic) Annual LDCT Osteoarthritis of hips, bilateral (Chronic) Diabetic nephropathy (Chronic) Ventral hernia (Chronic) Generalized anxiety disorder (Chronic) Benign positional vertigo (Chronic) 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 Father Diabetes Daughter No problems noted. Daughter No problems noted. Daughter No problems noted. Daughter No problems noted. Social History Smoking/Tobacco Use Status: Current-Occasional Tobacco Type: cigarettes Smoking packs per day: 2 Smoking cigarettes per day: 40.0 Years smoked: 59 Smoking pack- years: 118.00 Smoking risk assessment performed?: Yes Alcohol Intake: never Drug use: Never Substance use type: does not use 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 Pets and animals: Yes Pets and animals: cat(s) Current gender identity: female What type of physical activity do you participate in: none Irma/Christian: Orthodoxy Special irma needs: No Do you feel safe at home: Yes Do you feel safe in your relationship?: Yes Additional Social history: Lives alone in apartment at [place]. 4 daughters Meds Allergies and Home Medications Allergies Allergy/AdvReac Type Severity Reaction Status Date / Time codeine AdvReac Severe Cardiac Verified 12/17/22 10:23 Dysrythmia indomethacin AdvReac Intermediate Cardiac Verified 12/17/22 10:23 Dysrythmia lisinopril AdvReac cough Verified 12/17/22 10:23 Home Medications Medication Instructions Recorded Confirmed Type blood-glucose meter (Nusocketuch #1 ea 11/26/20 12/17/22 Rx Ultra2 Meter kit) cholecalciferol (vitamin D3) 25 25 mcg PO DAILY 08/30/21 12/17/22 History mcg (1,000 unit) capsule (Vitamin D3) sacubitril 24 mg-valsartan 26 mg 1 tab PO BID #90 tabs 03/17/22 12/17/22 Rx tablet (Entresto) docusate sodium 100 mg capsule 100 mg PO DAILY 07/10/22 12/17/22 History aspirin 81 mg tablet,delayed 81 mg PO DAILY #90 tabs 07/11/22 12/17/22 Rx release atorvastatin 80 mg tablet 80 mg PO QPM #90 tabs 07/11/22 12/17/22 Rx cetirizine 10 mg tablet 10 mg PO DAILY #90 tab-caps 07/11/22 12/17/22 Rx empagliflozin 10 mg tablet 10 mg PO DAILY #90 tabs 07/11/22 12/17/22 Rx fluticasone propionate 50 2 spray intranasal DAILY PRN 07/11/22 12/17/22 Rx mcg/actuation nasal allergy symptoms #16 grams spray,suspension (Flonase Allergy Relief) gabapentin 300 mg capsule 300 mg PO QHS #90 caps 07/16/22 12/17/22 Rx spironolactone 25 mg tablet 25 mg PO DAILY #90 tabs 07/16/22 12/17/22 Rx torsemide 20 mg tablet 20 mg PO BID #180 tabs 09/09/22 12/17/22 Rx blood sugar diagnostic (OneTouch #500 ea 10/20/22 12/17/22 Rx Ultra Test strips) lancets (Philz CoffeeTouch UltraSoft #500 ea 10/20/22 12/17/22 Rx Lancets) insulin aspart U-100 100 unit/mL 1 sliding scale dose subcut TID #9 10/22/22 12/17/22 Rx (3 mL) subcutaneous pen SYRGS clopidogrel 75 mg tablet 75 mg PO DAILY #90 tabs 10/30/22 12/17/22 Rx albuterol sulfate 90 mcg/actuation 2 puff inhalation Q6H PRN 11/04/22 12/17/22 Rx aerosol inhaler shortness of breath or wheezing #18 grams prednisone 10 mg tablet 10 mg PO DAILY 11/14/22 12/17/22 History flash glucose scanning reader #1 ea 12/17/22 12/17/22 Rx (FreeStyle Consuelo 14 Day Powell) flash glucose sensor (FreeStyle #6 ea 12/17/22 12/17/22 Rx Consuelo 14 Day Sensor kit) glucose 4 gram chewable tablet 16 g PO ONCE PRN hypoglycemia #60 12/17/22 12/17/22 Rx (Dex4 Glucose Quick Dissolve) tabs glycopyrrolate 9 mcg-formoterol 2 puff inhalation BID #10.7 grams 12/17/22 12/17/22 Rx 4.8 mcg HFA aerosol inhaler (BePremier Groceryphere) inhalational spacing device #2 ea 12/17/22 12/17/22 Rx (Aerochamber MV spacer) insulin glargine 100 unit/mL (3 26 unit (0.26 mL) subcut QAM #9 12/17/22 12/17/22 Rx mL) subcutaneous pen (Lantus SYRGS Solostar U-100 Insulin) pen needle, diabetic 31 gauge x #360 12/17/22 12/17/22 Rx 5/16 (BD Ultra-Fine Short Pen Needle) prednisone 2.5 mg tablet 5 mg PO DAILY 12/17/22 12/17/22 History Exam Narrative Exam Narrative: Obese white female lying on [place] in the ED, however she is lying semi-upright position, can not tolerate lying flat for exam. HEENT: no jaundice or icterus, full EOMI, bilateral catarracts Neck: no bruits but decr. bilateral carotid pulses, regular, JVD to half-way up the SCM; no adenopathy or thyromegaly Lungs: bibasilar rales, no wheezes or rhonchi Heart: RRR w/ ectopic beats, soft systolic murmur over apex grade 2/6, no thrill, or heave Abdomen: obese, slight distended, questionable fluid wave, normal bowel sounds; no palpable organomegaly; no bruits Legs/feet: 1+ pitting edema of feet and ankles, none over upper tibia, no cya nosis Neuro: grossly normal CN and normal motor exam w/ normal ROM and strength in both UE and both LE; grossly intact sensory to light touch over feet, hands Results Labs 12/17/22 15:13 12/17/22 15:13 Labs: Laboratory Results - last 24 hr 12/17/22 12/17/22 12/17/22 15:13 15:13 15:13 WBC 8.50 RBC 2.81 L Hgb 7.6 L Hct 26.4 L MCV 94 MCH 27.0 MCHC 28.8 L RDW 14.3 Plt Count 224 MPV 10.0 Immature Gran % 0.2 Neutrophils % 89.0 Lymphocytes % 4.9 Monocytes % 5.6 Eosinophils % 0.1 Basophils % 0.2 Nucleated RBC % 0.0 Absolute Neutrophils 7.55 H Absolute Lymphocytes 0.42 L Absolute Monocytes 0.48 Absolute Eosinophils 0.01 Absolute Basophils 0.02 D-Dimer VBG Lactate Sodium 140 Potassium 4.4 Chloride 100 Carbon Dioxide 32.8 H Anion Gap 7.2 BUN 66 H Creatinine 2.8 H Est GFR (CKD-EPI 2020) 17.29 Glucose 210 H Calcium 8.7 Total Bilirubin 0.7 AST 33 ALT 43 Alkaline Phosphatase 63 Troponin I < 50 NT-Pro-B Natriuret Pep 706 H Total Protein 7.2 Albumin 3.5 Urine Color Urine Clarity Urine pH Ur Specific [place] Urine Protein Urine Ketones Urine Blood Urine Nitrite Urine Bilirubin Urine Urobilinogen Ur Leukocyte Esterase Urine RBC Urine WBC Ur Epithelial Cells Urine Crystals Urine Bacteria Urine Casts Urine Mucus Ur Culture Indicated? Urine Glucose COVID-19 Source SARS-CoV-2 (PCR) 12/17/22 12/17/22 12/17/22 15:13 15:13 17:18 WBC RBC Hgb Hct MCV MCH MCHC RDW Plt Count MPV Immature Gran % Neutrophils % Lymphocytes % Monocytes % Eosinophils % Basophils % Nucleated RBC % Absolute Neutrophils Absolute Lymphocytes Absolute Monocytes Absolute Eosinophils Absolute Basophils D-Dimer 1359 H VBG Lactate 1.4 Sodium Potassium Chloride Carbon Dioxide Anion Gap BUN Creatinine Est GFR (CKD-EPI 2020) Glucose Calcium Total Bilirubin AST ALT Alkaline Phosphatase Troponin I NT-Pro-B Natriuret Pep Total Protein Albumin Urine Color Yellow Urine Clarity Clear Urine pH 5.5 Ur Specific [place] 1.015 Urine Protein Negative Urine Ketones Negative Urine Blood Trace-intact H Urine Nitrite Negative Urine Bilirubin Negative Urine Urobilinogen 0.2 Ur Leukocyte Esterase Trace H Urine RBC 0-2 Urine WBC 5-10 Ur Epithelial Cells Few Urine Crystals Negative Urine Bacteria Few Urine Casts Negative Urine Mucus Negative Ur Culture Indicated? Yes Urine Glucose 500 H COVID-19 Source SARS-CoV-2 (PCR) 12/17/22 12/17/22 18:06 18:18 WBC RBC Hgb Hct MCV MCH MCHC RDW Plt Count MPV Immature Gran % Neutrophils % Lymphocytes % Monocytes % Eosinophils % Basophils % Nucleated RBC % Absolute Neutrophils Absolute Lymphocytes Absolute Monocytes Absolute Eosinophils Absolute Basophils D-Dimer VBG Lactate Sodium Potassium Chloride Carbon Dioxide Anion Gap BUN Creatinine Est GFR (CKD-EPI 2020) Glucose Calcium Total Bilirubin AST ALT Alkaline Phosphatase Troponin I 79 H* NT-Pro-B Natriuret Pep Total Protein Albumin Urine Color Urine Clarity Urine pH Ur Specific [place] Urine Protein Urine Ketones Urine Blood Urine Nitrite Urine Bilirubin Urine Urobilinogen Ur Leukocyte Esterase Urine RBC Urine WBC Ur Epithelial Cells Urine Crystals Urine Bacteria Urine Casts Urine Mucus Ur Culture Indicated? Urine Glucose COVID-19 Source Nasal/Nares SARS-CoV-2 (PCR) Negative Last Vital Signs Temp 36.4 C 12/17/22 14:13 Pulse 96 H 12/17/22 18:06 Resp 32 H 12/17/22 18:06 BP 116/52 L 12/17/22 18:06 Pulse Ox 97 12/17/22 18:06 Time Spent Time spent with Patient: 55-74 minutes Time was spent: preparing to see the patient(eg.review tests), obtaining and/or reviewing separately otained hiistory, ordering medications,tests, procedures, indepentently interpreting results, counseling the patient and care coordination
[2022-12-17] MEDS: Atorvastatin 40 MG TAB 80 MG PO (21:42)
[2022-12-17] MEDS: Enoxaparin 30 MG/0.3 ML SYR SC (21:42)
[2022-12-17] MEDS: Gabapentin 300 MG CAP PO (21:42)
[2022-12-17] MEDS: Pantoprazole 40 MG TABCR PO (21:57)
[2022-12-17] MEDS: Insulin Aspart 300 UNITS/3 ML PEN SC (22:28)
[2022-12-17 22:53] LABS: Troponin I 70 ng/L (<or=60)
[2022-12-17] MEDS: Normal Saline Flush 10 ML SYR IVP (23:42)
[2022-12-17] MEDS: Furosemide 40 MG/4 ML VIAL IVP (23:42)
[2022-12-18] VITALS (10 sets, daily range): BP systolic 90–113; BP diastolic 51–68; PULSE 76–105; RESP 16–22; TEMP 34.8–36.9; O2SAT 93–99
[2022-12-18] MEDS: Dextrose 50%-Water 25 GM/50 ML SYR IVP (02:03)
[2022-12-18 07:02] LABS: Abs Immature Grans 0.09 10^3/uL (0.0-0.06); Absolute Basophil Count 0.02 10^3/uL (0.0-0.2); Absolute Eosinophil Count 0.18 10^3/uL (0.0-0.7); Absolute Lymphocyte Count 1.16 10^3/uL (1.2-3.4); Absolute Monocyte Count 0.99 10^3/uL (0.1-0.8); Absolute Neutrophil Count 5.61 10^3/uL (1.2-6.7); Basophils % 0.2; Eosinophils % 2.2; HGB 7.4 g/dL (11.2-15.7); Immature Grans % 1.1; Lymphocytes % 14.4; MCHC 27.4 % (32.0-36.0); MCV 95 fL (80-95); MPV 10.7 fL (8.0-11.0); Monocytes % 12.3; Neutrophils % 69.8; Platelet Count 224 10^3/uL (130-400); RBC 2.85 10^6/uL (3.93-5.22); RDW 14.5 % (11.7-14.6); RDW-SD 50.6 fL; WBC 8.05 10^3/uL (4.4-10.8)
[2022-12-18 07:14] LABS: Anion Gap 5.2 mmol/L (3-11); BUN 65 mg/dL (7-18); CO2 34.8 mmol/L (21.0-32.0); CREATININE 2.7 mg/dL (0.55-1.02); Calcium 8.8 mg/dL (8.5-10.1); Chloride 103 mmol/L (98-107); Estimated GFR 18.06 (mL/min/1.73m2); Glucose 114 mg/dL (74-106); Reticulocyte 2.2 % (0.5-2.4); Sodium 143 mmol/L (136-145)
[2022-12-18 07:31] LABS: Diff Comment Diff Reviewed; Ferritin 35 ng/mL (8-252); RBC Morphology Normal; TSH (W/Ref FT4) 1.09 uIU/mL (0.36-3.74)
[2022-12-18 07:32] LABS: Troponin I 82 ng/L (<or=60)
[2022-12-18 07:45] LABS: Hemoglobin A1C 6.3 % (<5.7)
--- NOTE | 2022-12-18 08:00 | RT.EKG_ITS ---
APPROVED REPORT Exam: Resting ECG Reason for Exam: elevated troponin I Patient Location: I HR:98 bpm ECG Measurements Heart Rate 98 AXIS AL 121 P 33 QRSd 102 QRS 86 QT 344 T 237 QTc 440 Conclusion Sinus tachycardia...rate> 99 Atrial premature complexes...SV complexes w/ short R-R intvls Anterior infarct, old...Q >40mS, abnormal ST-T, V2-V5 Baseline wander in lead(s) I,III,aVL,V6
[2022-12-18 08:16] LABS: NT-proBNP > 35000 pg/mL (<300)
[2022-12-18 08:36] LABS: Iron 13 ug/dL (50-170); Total Iron Binding Capacity 370 ug/dL (250-450); Transferrin Sat 4 % (15-50)
[2022-12-18] MEDS: Cholecalciferol (Vitamin D3) 1,000 UNIT TAB 1000 UNITS PO (08:43)
[2022-12-18] MEDS: Cetirizine 10 MG TAB PO (08:44)
[2022-12-18] MEDS: Empaglifozin 10 MG TAB PO (08:44)
[2022-12-18] MEDS: Clopidogrel 75 MG TAB PO (08:45)
[2022-12-18] MEDS: Aspirin E.C. 81 MG TABEC PO (08:45)
[2022-12-18] MEDS: predniSONE 10 MG TAB PO (08:45)
[2022-12-18] MEDS: predniSONE 5 MG TAB PO (08:45)
[2022-12-18] MEDS: Sacubitril/Valsartan 24 mg/26 mg TAB 1 EACH PO ×2 (08:45→19:16)
[2022-12-18] MEDS: Spironolactone 25 MG TAB 12.5 MG PO (08:46)
[2022-12-18] MEDS: Normal Saline Flush 10 ML SYR IVP (08:47)
--- NOTE | 2022-12-18 08:47 | CCONE_ITS ---
Date of service: 12/18/22 Time of Service: 08:50 Assessment and Plan Assessment and plan (1) Acute on chronic HFrEF (heart failure with reduced ejection fraction): Status: Acute Assessment and plan: I expect that the hospitalists are repeating her echocardiogram. This will be reviewed when available (2) Chronic respiratory failure with hypoxia: Status: Acute Assessment and plan: Patient has severe chronic lung disease. She is still smoking (3) Iron deficiency anemia: Assessment and plan: Anemia is worse than it was in October and I suspect this has contributed to her decompensation. She is a poor candidate to have a GI work-up. Overall I think adjusting her medicine, repeating her echo and urging smoking cessation seem the best course. I would not recommend an aggressive cardiac evaluation such as cardiac catheterization given her multiple comorbidities, unless there was ongoing evidence of myocardial ischemia or symptoms suggestive of angina History of Present Illness History of Present Illness Chief Complaint: Shortness of breath Narrative: This is 1 of numerous hospitalizations for this 72-year-old woman who was admitted with worsening shortness of breath. By history this was progressive over at least a week and maybe longer. She came to the hospital and has been treated with diuretics. Notably, her troponins have been borderline but not impressive. She also has worsening of her chronic anemia with hemoglobin now down to 7.4. Labs are consistent with iron deficiency. She has severe oxygen dependent chronic lung disease as well as chronic kidney disease. She was scheduled to see nephrology at [facility] but that appointment was not completed because of inclement weather. She has known moderate left ventricular dysfunction PFSH All Active Problems Elevated troponin I level (Acute) Acute on chronic HFrEF (heart failure with reduced ejection fraction) (Acute) Acute kidney injury superimposed on chronic kidney disease (Acute) Chronic respiratory failure with hypoxia (Acute) CKD (chronic kidney disease) stage 4, GFR 15-29 ml/min (Acute) Non-ST elevation RI (NSTEMI) (Acute ~10/2022) Type 2 diabetes mellitus with retinopathy of both eyes, with long-term current use of insulin (Chronic) CVA (cerebral vascular accident) (Acute ~12/2021) Heart failure with reduced ejection fraction (Chronic) Chronic obstructive pulmonary disease (Chronic) O2 dependent on 3L NC Polymyalgia rheumatica (Chronic) Carotid atherosclerosis (Chronic) Essential hypertension (Chronic) GERD (gastroesophageal reflux disease) (Chronic) Pulmonary nodule (Chronic) Nicotine dependence, cigarettes, uncomplicated (Chronic) Annual LDCT Osteoarthritis of hips, bilateral (Chronic) Diabetic nephropathy (Chronic) Ventral hernia (Chronic) Generalized anxiety disorder (Chronic) Benign positional vertigo (Chronic) 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 Father Diabetes Daughter No problems noted. Daughter No problems noted. Daughter No problems noted. Daughter No problems noted. 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 4 daughters Exam Narrative Exam Narrative: Chronically ill-appearing woman looks older than stated age wearing nasal oxygen mildly tachypnea Neck Other: Unable to assess. Carotid pulsations are normal no bruits Resp Other: Very diminished breath sounds, poor air movement. I hear no crackles or wheeze Cardio Other: Heart is regular distant probable summation gallop Skin Other: Pale warm and dry Extrem Other: Trace edema Results Last Vital Signs Temp 35.4 C L 12/18/22 05:37 Pulse 78 12/18/22 05:37 Resp 19 12/18/22 05:37 BP 113/60 12/18/22 05:37 Pulse Ox 93 12/18/22 05:37 Labs 12/18/22 06:00 12/18/22 06:00 Labs: Laboratory Results - last 24 hr 12/17/22 12/17/22 12/17/22 15:13 15:13 15:13 WBC 8.50 RBC 2.81 L Hgb 7.6 L Hct 26.4 L MCV 94 MCH 27.0 MCHC 28.8 L RDW 14.3 Plt Count 224 MPV 10.0 Reticulocyte % (Auto) Immature Gran % 0.2 Neutrophils % 89.0 Lymphocytes % 4.9 Monocytes % 5.6 Eosinophils % 0.1 Basophils % 0.2 Nucleated RBC % 0.0 Absolute Neutrophils 7.55 H Absolute Lymphocytes 0.42 L Absolute Monocytes 0.48 Absolute Eosinophils 0.01 Absolute Basophils 0.02 RBC Morphology D-Dimer VBG Lactate Sodium 140 Potassium 4.4 Chloride 100 Carbon Dioxide 32.8 H Anion Gap 7.2 BUN 66 H Creatinine 2.8 H Est GFR (CKD-EPI 2020) 17.29 Glucose 210 H Hemoglobin A1c Calcium 8.7 Iron TIBC Transferrin % Sat Ferritin Total Bilirubin 0.7 AST 33 ALT 43 Alkaline Phosphatase 63 Troponin I < 50 NT-Pro-B Natriuret Pep 706 H Total Protein 7.2 Albumin 3.5 TSH Urine Color Urine Clarity Urine pH Ur Specific [place] Urine Protein Urine Ketones Urine Blood Urine Nitrite Urine Bilirubin Urine Urobilinogen Ur Leukocyte Esterase Urine RBC Urine WBC Ur Epithelial Cells Urine Crystals Urine Bacteria Urine Casts Urine Mucus Ur Culture Indicated? Urine Glucose COVID-19 Source SARS-CoV-2 (PCR) 12/17/22 12/17/22 12/17/22 15:13 15:13 17:18 WBC RBC Hgb Hct MCV MCH MCHC RDW Plt Count MPV Reticulocyte % (Auto) Immature Gran % Neutrophils % Lymphocytes % Monocytes % Eosinophils % Basophils % Nucleated RBC % Absolute Neutrophils Absolute Lymphocytes Absolute Monocytes Absolute Eosinophils Absolute Basophils RBC Morphology D-Dimer 1359 H VBG Lactate 1.4 Sodium Potassium Chloride Carbon Dioxide Anion Gap BUN Creatinine Est GFR (CKD-EPI 2020) Glucose Hemoglobin A1c Calcium Iron TIBC Transferrin % Sat Ferritin Total Bilirubin AST ALT Alkaline Phosphatase Troponin I NT-Pro-B Natriuret Pep Total Protein Albumin TSH Urine Color Yellow Urine Clarity Clear Urine pH 5.5 Ur Specific [place] 1.015 Urine Protein Negative Urine Ketones Negative Urine Blood Trace-intact H Urine Nitrite Negative Urine Bilirubin Negative Urine Urobilinogen 0.2 Ur Leukocyte Esterase Trace H Urine RBC 0-2 Urine WBC 5-10 Ur Epithelial Cells Few Urine Crystals Negative Urine Bacteria Few Urine Casts Negative Urine Mucus Negative Ur Culture Indicated? Yes Urine Glucose 500 H COVID-19 Source SARS-CoV-2 (PCR) 12/17/22 12/17/22 12/17/22 18:06 18:18 22:25 WBC RBC Hgb Hct MCV MCH MCHC RDW Plt Count MPV Reticulocyte % (Auto) Immature Gran % Neutrophils % Lymphocytes % Monocytes % Eosinophils % Basophils % Nucleated RBC % Absolute Neutrophils Absolute Lymphocytes Absolute Monocytes Absolute Eosinophils Absolute Basophils RBC Morphology D-Dimer VBG Lactate Sodium Potassium Chloride Carbon Dioxide Anion Gap BUN Creatinine Est GFR (CKD-EPI 2020) Glucose Hemoglobin A1c Calcium Iron TIBC Transferrin % Sat Ferritin Total Bilirubin AST ALT Alkaline Phosphatase Troponin I 79 H* 70 H* NT-Pro-B Natriuret Pep Total Protein Albumin TSH Urine Color Urine Clarity Urine pH Ur Specific [place] Urine Protein Urine Ketones Urine Blood Urine Nitrite Urine Bilirubin Urine Urobilinogen Ur Leukocyte Esterase Urine RBC Urine WBC Ur Epithelial Cells Urine Crystals Urine Bacteria Urine Casts Urine Mucus Ur Culture Indicated? Urine Glucose COVID-19 Source Nasal/Nares SARS-CoV-2 (PCR) Negative 12/17/22 12/18/22 12/18/22 23:00 06:00 06:00 WBC 8.05 RBC 2.85 L Hgb 7.4 L Hct 27.0 L MCV 95 MCH 26.0 L MCHC 27.4 L RDW 14.5 Plt Count 224 MPV 10.7 Reticulocyte % (Auto) Immature Gran % 1.1 Neutrophils % 69.8 Lymphocytes % 14.4 Monocytes % 12.3 Eosinophils % 2.2 Basophils % 0.2 Nucleated RBC % 0.0 Absolute Neutrophils 5.61 Absolute Lymphocytes 1.16 L Absolute Monocytes 0.99 H Absolute Eosinophils 0.18 Absolute Basophils 0.02 RBC Morphology Normal D-Dimer VBG Lactate Sodium Potassium Chloride Carbon Dioxide Anion Gap BUN Creatinine Est GFR (CKD-EPI 2020) Glucose Hemoglobin A1c Calcium Iron TIBC Transferrin % Sat Ferritin 35 Total Bilirubin AST ALT Alkaline Phosphatase Troponin I Cancelled 82 H* NT-Pro-B Natriuret Pep > 10953 H Total Protein Albumin TSH 1.09 Urine Color Urine Clarity Urine pH Ur Specific [place] Urine Protein Urine Ketones Urine Blood Urine Nitrite Urine Bilirubin Urine Urobilinogen Ur Leukocyte Esterase Urine RBC Urine WBC Ur Epithelial Cells Urine Crystals Urine Bacteria Urine Casts Urine Mucus Ur Culture Indicated? Urine Glucose COVID-19 Source SARS-CoV-2 (PCR) 12/18/22 12/18/22 12/18/22 06:00 06:00 06:00 WBC RBC Hgb Hct MCV MCH MCHC RDW Plt Count MPV Reticulocyte % (Auto) 2.2 Immature Gran % Neutrophils % Lymphocytes % Monocytes % Eosinophils % Basophils % Nucleated RBC % Absolute Neutrophils Absolute Lymphocytes Absolute Monocytes Absolute Eosinophils Absolute Basophils RBC Morphology D-Dimer VBG Lactate Sodium Potassium Chloride Carbon Dioxide Anion Gap BUN Creatinine Est GFR (CKD-EPI 2020) Glucose Hemoglobin A1c 6.3 H Calcium Iron 13 L TIBC 370 Transferrin % Sat 4 L Ferritin Total Bilirubin AST ALT Alkaline Phosphatase Troponin I NT-Pro-B Natriuret Pep Total Protein Albumin TSH Urine Color Urine Clarity Urine pH Ur Specific [place] Urine Protein Urine Ketones Urine Blood Urine Nitrite Urine Bilirubin Urine Urobilinogen Ur Leukocyte Esterase Urine RBC Urine WBC Ur Epithelial Cells Urine Crystals Urine Bacteria Urine Casts Urine Mucus Ur Culture Indicated? Urine Glucose COVID-19 Source SARS-CoV-2 (PCR) 12/18/22 06:00 WBC RBC Hgb Hct MCV MCH MCHC RDW Plt Count MPV Reticulocyte % (Auto) Immature Gran % Neutrophils % Lymphocytes % Monocytes % Eosinophils % Basophils % Nucleated RBC % Absolute Neutrophils Absolute Lymphocytes Absolute Monocytes Absolute Eosinophils Absolute Basophils RBC Morphology D-Dimer VBG Lactate Sodium 143 Potassium 4.0 Chloride 103 Carbon Dioxide 34.8 H Anion Gap 5.2 BUN 65 H Creatinine 2.7 H Est GFR (CKD-EPI 2020) 18.06 Glucose 114 H Hemoglobin A1c Calcium 8.8 Iron TIBC Transferrin % Sat Ferritin Total Bilirubin AST ALT Alkaline Phosphatase Troponin I NT-Pro-B Natriuret Pep Total Protein Albumin TSH Urine Color Urine Clarity Urine pH Ur Specific [place] Urine Protein Urine Ketones Urine Blood Urine Nitrite Urine Bilirubin Urine Urobilinogen Ur Leukocyte Esterase Urine RBC Urine WBC Ur Epithelial Cells Urine Crystals Urine Bacteria Urine Casts Urine Mucus Ur Culture Indicated? Urine Glucose COVID-19 Source SARS-CoV-2 (PCR)
[2022-12-18] MEDS: Furosemide 40 MG/4 ML VIAL IVP ×2 (08:57→15:56)
--- NOTE | 2022-12-18 09:50 | PDOC.CMIN ---
- If Service Date Differs Date of service: 12/18/22 Time of Service: 09:50 Care Management Initial Assess REASON FOR HOSPITALIZATION:: CHF PAST MEDICAL HISTORY/PAST SURGICAL HISTORY:: All Active Problems (Updated 12/18/22 @ 00:09 by Padilla Tobar MD). Elevated troponin I level (Acute). Acute on chronic HFrEF (heart failure with reduced ejection fraction) (Acute). Acute kidney injury superimposed on chronic kidney disease (Acute). Chronic respiratory failure with hypoxia (Acute). CKD (chronic kidney disease) stage 4, GFR 15-29 ml/min (Acute). Non-ST elevation ND (NSTEMI) (Acute ~10/2022). Type 2 diabetes mellitus with retinopathy of both eyes, with long-term current use of insulin (Chronic). CVA (cerebral vascular accident) (Acute ~12/2021). Heart failure with reduced ejection fraction (Chronic). Chronic obstructive pulmonary disease (Chronic). O2 dependent on 3L NC. Polymyalgia rheumatica (Chronic). Carotid atherosclerosis (Chronic). Essential hypertension (Chronic). GERD (gastroesophageal reflux disease) (Chronic). Pulmonary nodule (Chronic). Nicotine dependence, cigarettes, uncomplicated (Chronic). Annual LDCT. Osteoarthritis of hips, bilateral (Chronic). Diabetic nephropathy (Chronic). Ventral hernia (Chronic). Generalized anxiety disorder (Chronic). Benign positional vertigo (Chronic). 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 Medical History . COVID-19 virus infection (~10/2022). Iron deficiency anemia. Palliative care patient. Surgical History . History of esophagogastroduodenoscopy (EGD) (07/30/18). S/P cholecystectomy. S/P colonoscopy (07/30/18). S/P tonsillectomy PREVIOUS FUNCTIONAL STATUS/SOCIAL/FAMILY SUPPORTS:: Beth lives alone in an apartment at [facility] in [facility]. She has 4 daughters but only one daughter, Lida, lives locally. Her other daughters reside in [place] and [place]. Beth uses home oxygen at 3 L/min. She receives home health services for nursing and PT and has homemaker services 5 days a week through [facility]. Beth uses a walker for ambulatory assistance but feels she needs a wheelchair as she cannot stand for very long. CURRENT FUNCTIONAL STATUS:: Beth was lying in bed when CM met with her. She engaged easily with CM, well known to her from previous hospital stays. She informed CM that she has been sick for a couple of weeks. She saw her doctor yesterday who sent her to the hospital. Beth stated that last admission she was gven a blood pressure medication that had a negative effect on her and she wants to be sure she does not get it again. ADVANCE DIRECTIVES:: On file. Daughter Lida LIAO Has patient been provided with info about the portal/API?: Yes Did the patient sign up for the portal?: Yes (previously) CODE STATUS:: DNR/DNI INSURANCE COVERAGE / FINANCIAL ISSUES:: Medicare. Medicaid CURRENT HOME/COMMUNITY SERVICES/EQUIPMENT:: Home oxygen. Home health Nursing and PT PRIMARY CARE PHYSICIAN:: Katherine Andre POTENTIAL DISCHARGE NEEDS:: follow up with PCP and plan of care PATIENT/FAMILY EDUCATION NEEDS:: Review of discharge instructions, limitations, follow up plan, medications, discuss Ask Me Three TRANSPORTATION:: via private vehicle with family PLAN:: Beth will likely be discharged home with a resumption of home health services for nursing and PT. She will folow up with her PCP and plan of care and transport with family. CM will continue to support Beth and assess for ongoing discharge needs.
--- NOTE | 2022-12-18 12:30 | DI.US_ITS ---
APPROVED REPORT EXAM: Comprehensive 2D, Doppler, and color-flow Echocardiogram Patient Location: In-Patient Room/Bed: [address] Stitcher: Chandni Ba RDCS (AE) Indications: Acute CHF, elevated troponin, Limited follow up for function Other Information Study Quality: Adequate. Technically limited study due to exam done bedside. Conclusion Mildly dilated left ventricular chamber size. Wall thickness is normal. Estimated ejection fraction is 40-45% with global hypokinesis Small circumferential pericardial effusion Wall motion Left Ventricle Left ventricle is mildly dilated. Left ventricular systolic function is moderately decreased. There i s normal left ventricular wall thickness. There is global hypokinesis of the left ventricle. LVEF is 40-45%. Pericardium Small circumferential pericardial effusion. 2D Dimensions IVSD d PLAX 0.98 cm F: 0.6-1.0 LV Vol A2C d MOD 174.9 mL LVPW d PLAX 0.92 cm F: 0.6 - 1.0 LV Vol A4C d MOD 137.0 mL LVID d PLAX 5.73 cm F: 3.8 - 5.2 LA vol/ BSA A2C s A-L 40.7 mL/m2 LVDs 4.45 cm F: 2.2 - 3.5 LA vol/ BSA A4C s A-L 54.5 mL/m2 LV EF Teichholz 43.4 % LA Vol/ BSA Biplane s A-L 50.1 mL/m2 LVEF (Claudio's) 38.51 % F: 54 - 74 LA Area A4C s MOD 28.02 cm2 LV Volume 122.70 mL F: 46 - 106 LA Area A2C s MOD 22.76 cm2 LV Volume Index 66.68 mL/m2 F: 29 - 61 LV EF A4C MOD 40.5 % LV Vol Biplane MOD 159.1 mL LV EF A2C MOD 42.0 % FS 21.70 % LV EF Biplane MOD 38.5 % SV 61.26 mL SV Index 33.24 mL/m2
--- NOTE | 2022-12-18 17:00 | W.PM.PROGNOT ---
Date of Service Date of service: 12/18/22 Time of Service: 17:00 Assessment and Plan Assessment and plan (1) Acute on chronic HFrEF (heart failure with reduced ejection fraction): Status: Acute Assessment and plan: Repeat echo demonstrates moderately dilated left ventricle with global hypokinesis LVEF 40%. RV normal size and function. No AAS or AI moderate MR small PFO. Mild TR. RVSP 34 mm. Small pericardial effusion. Continue IV furosemide, oral spironolactone, Entresto, Jardiance. However if she continues having hypoglycemia we may have to stop the Jardiance altogether. Professional time spent interviewing and examining patient, discussion of goals of care with hospital team (care management, nursing and consulting professionals) was 30 minutes. (2) Elevated troponin I level: Status: Acute Assessment and plan: Given that she has no regional wall motion abnormality I suspect this is likely due to demand ischemia. As per Dr. Meneses's recommendation she would not pursue further ischemic work-up. (3) CKD (chronic kidney disease) stage 4, GFR 15-29 ml/min: Status: Acute Assessment and plan: Stable stage IV chronic kidney disease. BUN 65 creatinine 2.7 unchanged despite diuresis. And overall renal function has improved since she was discharged the end of October. (4) Type 2 diabetes mellitus with retinopathy of both eyes, with long-term current use of insulin: Status: Chronic Assessment and plan: Continue to withhold long-acting insulin. Cover with low-dose sliding scale NovoLog. Continue Jardiance. We will check random blood sugar in the middle the night to see if she continues having hypoglycemic spells. (5) Chronic obstructive pulmonary disease: Status: Chronic Assessment and plan: Continue home inhalers. Qualifiers: COPD type: emphysema Emphysema type: centrilobular Qualified Code(s): J43.2 - Centrilobular emphysema (6) Iron deficiency anemia: Assessment and plan: Begin Venofer and continue as an outpatient on a monthly basis. (7) Polymyalgia rheumatica: Status: Chronic Assessment and plan: continue home dose of prednisone Subjective Subjective Interval history since last seen: Sujatha had another episode of hypoglycemia this happened last night she said this occurred around 2:00 in the morning blood sugar went down to 40. She responded some juice and a snack. Subsequent blood sugar this morning was 137 at lunchtime she was up to 120 but because they have been withholding her insulin her blood sugars have been even higher this afternoon in the 260-322 range. We are withholding her long-acting insulin but I did asked that nursing staff resume blood sugar covering with low-dose sliding scale. Back to her diuresis from her heart failure she is lost 1400 mL and urine output since midnight last night. She remains on furosemide 40 mg IV every [address] Meneses saw her today in consultation and indicated that this is an acute on chronic heart failure exacerbation and she agreed with current diuresis plans. She felt that her iron deficiency anemia is worsening her heart failure and contributed to her decompensation. She indicated patient is a poor candidate for GI work-up of her anemia but recommend adjusting her medications and repeating her echocardiogram and treating her anemia. Patient states that she has been unable to take her oral iron supplementation. I explained to her and her daughter that we can give her parenteral iron supplementation. She could get this while she is hospitalized and continue to receive it as an outpatient through the infusion center. Exam Narrative Exam Narrative: Patient sitting up in her chair eating her dinner. She is alert and oriented person place time circumstance no acute distress. She is able to talk in complete sentences.Patient is down to 2 L/min per nasal cannula with oxygen saturation 96%. Lungs are clear anteriorly posteriorly she has some fine bibasilar rales no rhonchi or wheezes Hearts regular but slightly tachycardic Abdomen is obese soft and nontender Lower extremities no peripheral cyanosis or edema Objective Last Vital Signs Temp 36.9 C 12/18/22 16:02 Pulse 96 H 12/18/22 16:02 Resp 22 12/18/22 16:02 BP 108/68 12/18/22 16:02 Pulse Ox 96 12/18/22 16:02 Laboratory Results - last 24 hr 12/17/22 12/17/22 12/17/22 17:18 18:06 18:18 WBC RBC Hgb Hct MCV MCH MCHC RDW Plt Count MPV Reticulocyte % (Auto) Immature Gran % Neutrophils % Lymphocytes % Monocytes % Eosinophils % Basophils % Nucleated RBC % Absolute Neutrophils Absolute Lymphocytes Absolute Monocytes Absolute Eosinophils Absolute Basophils RBC Morphology Sodium Potassium Chloride Carbon Dioxide Anion Gap BUN Creatinine Est GFR (CKD-EPI 2020) Glucose Hemoglobin A1c Calcium Iron TIBC Transferrin % Sat Ferritin Troponin I 79 H* NT-Pro-B Natriuret Pep TSH Urine Color Yellow Urine Clarity Clear Urine pH 5.5 Ur Specific [place] 1.015 Urine Protein Negative Urine Ketones Negative Urine Blood Trace-intact H Urine Nitrite Negative Urine Bilirubin Negative Urine Urobilinogen 0.2 Ur Leukocyte Esterase Trace H Urine RBC 0-2 Urine WBC 5-10 Ur Epithelial Cells Few Urine Crystals Negative Urine Bacteria Few Urine Casts Negative Urine Mucus Negative Ur Culture Indicated? Yes Urine Glucose 500 H COVID-19 Source Nasal/Nares SARS-CoV-2 (PCR) Negative 12/17/22 12/17/22 12/18/22 22:25 23:00 06:00 WBC RBC Hgb Hct MCV MCH MCHC RDW Plt Count MPV Reticulocyte % (Auto) Immature Gran % Neutrophils % Lymphocytes % Monocytes % Eosinophils % Basophils % Nucleated RBC % Absolute Neutrophils Absolute Lymphocytes Absolute Monocytes Absolute Eosinophils Absolute Basophils RBC Morphology Sodium Potassium Chloride Carbon Dioxide Anion Gap BUN Creatinine Est GFR (CKD-EPI 2020) Glucose Hemoglobin A1c Calcium Iron TIBC Transferrin % Sat Ferritin 35 Troponin I 70 H* Cancelled 82 H* NT-Pro-B Natriuret Pep > 42668 H TSH 1.09 Urine Color Urine Clarity Urine pH Ur Specific [place] Urine Protein Urine Ketones Urine Blood Urine Nitrite Urine Bilirubin Urine Urobilinogen Ur Leukocyte Esterase Urine RBC Urine WBC Ur Epithelial Cells Urine Crystals Urine Bacteria Urine Casts Urine Mucus Ur Culture Indicated? Urine Glucose COVID-19 Source SARS-CoV-2 (PCR) 12/18/22 12/18/22 12/18/22 06:00 06:00 06:00 WBC 8.05 RBC 2.85 L Hgb 7.4 L Hct 27.0 L MCV 95 MCH 26.0 L MCHC 27.4 L RDW 14.5 Plt Count 224 MPV 10.7 Reticulocyte % (Auto) 2.2 Immature Gran % 1.1 Neutrophils % 69.8 Lymphocytes % 14.4 Monocytes % 12.3 Eosinophils % 2.2 Basophils % 0.2 Nucleated RBC % 0.0 Absolute Neutrophils 5.61 Absolute Lymphocytes 1.16 L Absolute Monocytes 0.99 H Absolute Eosinophils 0.18 Absolute Basophils 0.02 RBC Morphology Normal Sodium Potassium Chloride Carbon Dioxide Anion Gap BUN Creatinine Est GFR (CKD-EPI 2020) Glucose Hemoglobin A1c Calcium Iron 13 L TIBC 370 Transferrin % Sat 4 L Ferritin Troponin I NT-Pro-B Natriuret Pep TSH Urine Color Urine Clarity Urine pH Ur Specific [place] Urine Protein Urine Ketones Urine Blood Urine Nitrite Urine Bilirubin Urine Urobilinogen Ur Leukocyte Esterase Urine RBC Urine WBC Ur Epithelial Cells Urine Crystals Urine Bacteria Urine Casts Urine Mucus Ur Culture Indicated? Urine Glucose COVID-19 Source SARS-CoV-2 (PCR) 12/18/22 12/18/22 06:00 06:00 WBC RBC Hgb Hct MCV MCH MCHC RDW Plt Count MPV Reticulocyte % (Auto) Immature Gran % Neutrophils % Lymphocytes % Monocytes % Eosinophils % Basophils % Nucleated RBC % Absolute Neutrophils Absolute Lymphocytes Absolute Monocytes Absolute Eosinophils Absolute Basophils RBC Morphology Sodium 143 Potassium 4.0 Chloride 103 Carbon Dioxide 34.8 H Anion Gap 5.2 BUN 65 H Creatinine 2.7 H Est GFR (CKD-EPI 2020) 18.06 Glucose 114 H Hemoglobin A1c 6.3 H Calcium 8.8 Iron TIBC Transferrin % Sat Ferritin Troponin I NT-Pro-B Natriuret Pep TSH Urine Color Urine Clarity Urine pH Ur Specific [place] Urine Protein Urine Ketones Urine Blood Urine Nitrite Urine Bilirubin Urine Urobilinogen Ur Leukocyte Esterase Urine RBC Urine WBC Ur Epithelial Cells Urine Crystals Urine Bacteria Urine Casts Urine Mucus Ur Culture Indicated? Urine Glucose COVID-19 Source SARS-CoV-2 (PCR) Time Spent with Patient Time Spent with Patient: 25-34 minutes Time was spent: preparing to see the patient(eg.review tests), ordering medications,tests, procedures, indepentently interpreting results, counseling the patient and care coordination
--- NOTE | 2022-12-18 17:08 | CHAPLAIN ---
I had a brief visit with Beth. She has a visitor with her. I introduced myself, explained my role and offered support. She asked me if she was dying since I was visiting her and I assured I visit all patients. She asked me to pray for her.
[2022-12-18] MEDS: Insulin Aspart 300 UNITS/3 ML PEN SC ×2 (17:15→21:23)
[2022-12-18] MEDS: Atorvastatin 40 MG TAB 80 MG PO (19:16)
[2022-12-18] MEDS: Gabapentin 300 MG CAP PO (19:49)
[2022-12-18] MEDS: Enoxaparin 30 MG/0.3 ML SYR SC (21:24)
[2022-12-19] VITALS (11 sets, daily range): BP systolic 96–112; BP diastolic 53–82; PULSE 86–100; RESP 17–22; TEMP 34–36.8; O2SAT 90–97
[2022-12-19] MEDS: Furosemide 40 MG/4 ML VIAL IVP (00:15)
[2022-12-19] MEDS: Normal Saline Flush 10 ML SYR IVP (00:15)
[2022-12-19 06:42] LABS: Abs Immature Grans 0.03 10^3/uL (0.0-0.06); Absolute Basophil Count 0.02 10^3/uL (0.0-0.2); Absolute Eosinophil Count 0.13 10^3/uL (0.0-0.7); Absolute Lymphocyte Count 1.21 10^3/uL (1.2-3.4); Absolute Neutrophil Count 5.69 10^3/uL (1.2-6.7); Basophils % 0.3; Eosinophils % 1.6; HCT 25.3 % (36.0-46.0); HGB 7.3 g/dL (11.2-15.7); Immature Grans % 0.4; Lymphocytes % 15.2; MCH 26.3 pg (27.0-33.0); MCHC 28.9 % (32.0-36.0); MCV 91 fL (80-95); MPV 10.3 fL (8.0-11.0); Monocytes % 11.3; Neutrophils % 71.2; Platelet Count 205 10^3/uL (130-400); RBC 2.78 10^6/uL (3.93-5.22); RDW 14.6 % (11.7-14.6); RDW-SD 49.5 fL; WBC 7.98 10^3/uL (4.4-10.8)
[2022-12-19 07:01] LABS: Anion Gap 6.4 mmol/L (3-11); BUN 70 mg/dL (7-18); CO2 31.6 mmol/L (21.0-32.0); CREATININE 2.8 mg/dL (0.55-1.02); Calcium 8.8 mg/dL (8.5-10.1); Chloride 102 mmol/L (98-107); Estimated GFR 17.29 (mL/min/1.73m2); Glucose 124 mg/dL (74-106); Potassium 3.9 mmol/L (3.5-5.1); Sodium 140 mmol/L (136-145)
[2022-12-19] MEDS: IRON SUCROSE COMPLEX 400 MG in Normal Saline 250 ML 100 MG IVPB (08:34)
[2022-12-19] MEDS: Clopidogrel 75 MG TAB PO (08:35)
[2022-12-19] MEDS: Cetirizine 10 MG TAB PO (08:35)
[2022-12-19] MEDS: Cholecalciferol (Vitamin D3) 1,000 UNIT TAB 1000 UNITS PO (08:35)
[2022-12-19] MEDS: Docusate Sodium 100 MG CAP PO (08:35)
[2022-12-19] MEDS: predniSONE 10 MG TAB PO (08:35)
[2022-12-19] MEDS: Aspirin E.C. 81 MG TABEC PO (08:35)
[2022-12-19] MEDS: Empaglifozin 10 MG TAB PO (08:35)
[2022-12-19] MEDS: Pantoprazole 40 MG TABCR PO (08:35)
[2022-12-19] MEDS: predniSONE 5 MG TAB PO (08:35)
[2022-12-19] MEDS: Normal Saline 250 ML 1000 ML IV (08:47)
[2022-12-19] MEDS: Insulin Aspart 300 UNITS/3 ML PEN SC ×4 (08:48→21:45)
--- NOTE | 2022-12-19 09:05 | CMPROGNOTE_ITS ---
- If Service Date Differs Date of service: 12/19/22 Time of Service: 09:05 Care Management Progress Note S/O:Beth was sitting on the side of the bed when CM met with her. She seemed a bit out of sorts and informed CM that her blood pressure is low and that she feels tired and weak. She was given an IV bolus of 250cc of NS with improvement. Beth stated that she will likely remain at [facility] for another couple of days. She stated that her breathing is fine but overall, she feels unwell. CM offered her word search books which she normally enjoys, but she was unable to read the print even though it was large print. She noted that she has difficulty with her vision and reading glasses don't help. A: Beth is a 72 year old woman admitted on 12/17/22 with CHF P:Beth will likely be discharged home with a resumption of home health services for nursing and PT. She will follow up with her PCP and plan of care and transport with family. CM will continue to support Beth and assess for ongoing discharge needs. cc:
[2022-12-19] MEDS: Acetaminophen 325 MG TAB PO ×2 (09:15→13:41)
--- NOTE | 2022-12-19 09:17 | W.PM.PROGNOT ---
Date of Service Date of service: 12/19/22 Time of Service: :17 Assessment and Plan Assessment and plan (1) Acute on chronic HFrEF (heart failure with reduced ejection fraction): Status: Acute Assessment and plan: Repeat echo demonstrates moderately dilated left ventricle with global hypokinesis LVEF 40%. RV normal size and function. No AAS or AI moderate MR small PFO. Mild TR. RVSP 34 mm. Small pericardial effusion. Because of her hypotension this morning I discontinued her IV Lasix put her spironolactone on hold and I also put her Entresto on hold for the running. She was given a small bolus of fluid 250 mL normal saline. We will monitor blood pressures this morning. Think at this point patient is probably euvolemic. We will consider resumption of oral diuretics tomorrow morning. If her blood pressure will allow we will resume her Entresto this evening. Professional time spent interviewing and examining patient, discussion of goals of care with hospital team (care management, nursing and consulting professionals) was 40 minutes. (2) Elevated troponin I level: Status: Acute Assessment and plan: Given that she has no regional wall motion abnormality I suspect this is likely due to demand ischemia. As per Dr. Meneses's recommendation she would not pursue further ischemic work-up. (3) CKD (chronic kidney disease) stage 4, GFR 15-29 ml/min: Status: Acute Assessment and plan: Stable stage IV chronic kidney disease.BUN is slightly up at 70 from her admission level of 59. It appears that her baseline prn is in the 60-70 range. Her creatinine is 2.8 which is essentially unchanged despite diuresis. And overall renal function has improved since she was discharged the end of October. (4) Type 2 diabetes mellitus with retinopathy of both eyes, with long-term current use of insulin: Status: Chronic Assessment and plan: Resume long-acting Lantus at a reduced dose of 13 units daily. Continue sliding scale insulin sensitive level coverage for meals. Continue monitoring blood sugars before meals and at bedtime. (5) Chronic obstructive pulmonary disease: Status: Chronic Assessment and plan: Continue home inhalers. Qualifiers: COPD type: emphysema Emphysema type: centrilobular Qualified Code(s): J43.2 - Centrilobular emphysema (6) Iron deficiency anemia: Assessment and plan: Begin Venofer. We will give her 300 to 400 mg IV daily for total dose of 1000 mg. Upon discharge we will recheck her iron studies in 4 to 6 weeks and then determine further outpatient infusions of iron since she is intolerant to oral iron. (7) Polymyalgia rheumatica: Status: Chronic Assessment and plan: continue home dose of prednisone Subjective Subjective Interval history since last seen: Patient with symptomatic hypotension this morning with systolic blood pressures in the 70s. After IV fluid bolus of 250 mL blood pressure is now up into the low 100s. She denies any chest pain. Shortness of breath is no worse than her usual. No nausea or vomiting she does complain of a headache. She is net -1800 mL this morning. Rhythm is sinus to sinus tachycardia. Heart rate in the high 90s to low 100s. Exam Narrative Exam Narrative: Patient sitting up to bedside alert and oriented person place time circumstance. Lungs clear anteriorly posterior she still has some bibasilar rales no rhonchi or wheezing Heart sounds to be irregular to me but review of telemetry strip shows sinus to sinus tachycardia with PACs. Abdomen soft nontender she has a small amount of bleeding at the site of subcutaneous injection site either from insulin or from Lovenox. Does not appear to be any significant hematoma over the abdominal wall. Lower extremities she has chronic venous stasis skin changes. She has no pitting edema. Objective Last Vital Signs Temp 36.3 C L 12/19/22 03:05 Pulse 98 H 12/19/22 08:56 Resp 18 12/19/22 08:56 BP 102/58 L 12/19/22 08:56 Pulse Ox 90 L 12/19/22 08:56 Laboratory Results - last 24 hr 12/19/22 12/19/22 06:23 06:23 WBC 7.98 RBC 2.78 L Hgb 7.3 L Hct 25.3 L MCV 91 D MCH 26.3 L MCHC 28.9 L RDW 14.6 Plt Count 205 MPV 10.3 Immature Gran % 0.4 Neutrophils % 71.2 Lymphocytes % 15.2 Monocytes % 11.3 Eosinophils % 1.6 Basophils % 0.3 Nucleated RBC % 0.0 Absolute Neutrophils 5.69 Absolute Lymphocytes 1.21 Absolute Monocytes 0.90 H Absolute Eosinophils 0.13 Absolute Basophils 0.02 Sodium 140 Potassium 3.9 Chloride 102 Carbon Dioxide 31.6 Anion Gap 6.4 BUN 70 H Creatinine 2.8 H Est GFR (CKD-EPI 2020) 17.29 Glucose 124 H Calcium 8.8 Time Spent with Patient Time Spent with Patient: 35-49 minutes Time was spent: preparing to see the patient(eg.review tests), obtaining and/or reviewing separately otained hiistory, ordering medications,tests, procedures, referring, communicating with other health primary care physician, indepentently interpreting results, counseling the patient and care coordination
[2022-12-19] MEDS: Albuterol HFA 8 GM 60 PUFF INH IH (15:10)
--- NOTE | 2022-12-19 15:15 | RESPIRATORY ---
RT spoke with patient concerning [facility] no carrying her inhaler (Bevespi Aerosphere) and pharmacy going to substitute with another inhaler. Patient stated she does not want anything else subs for this inhaler and will have daughter bring it in. Patient called daughter while RT in room and [facility] RT called pharmacy to inform.
[2022-12-19] MEDS: Atorvastatin 40 MG TAB 80 MG PO (20:44)
[2022-12-19] MEDS: Gabapentin 300 MG CAP PO (20:45)
[2022-12-19] MEDS: Enoxaparin 30 MG/0.3 ML SYR SC (20:48)
[2022-12-20] VITALS (11 sets, daily range): BP systolic 98–119; BP diastolic 51–80; PULSE 62–93; RESP 16–18; TEMP 35.9–37; O2SAT 91–96
[2022-12-20] MEDS: Empaglifozin 10 MG TAB PO (07:49)
[2022-12-20] MEDS: Cholecalciferol (Vitamin D3) 1,000 UNIT TAB 1000 UNITS PO (07:49)
[2022-12-20] MEDS: Cetirizine 10 MG TAB 5 MG PO (07:50)
[2022-12-20] MEDS: Clopidogrel 75 MG TAB PO (07:50)
[2022-12-20] MEDS: predniSONE 10 MG TAB PO (07:50)
[2022-12-20] MEDS: predniSONE 5 MG TAB PO (07:50)
[2022-12-20] MEDS: Aspirin E.C. 81 MG TABEC PO (07:50)
[2022-12-20] MEDS: Normal Saline Flush 10 ML SYR IVP (07:51)
[2022-12-20] MEDS: Docusate Sodium 100 MG CAP PO (07:51)
[2022-12-20] MEDS: Insulin Glargine 300 UNITS/3 ML PEN 13 UNITS SC (08:17)
[2022-12-20] MEDS: Insulin Aspart 300 UNITS/3 ML PEN SC ×6 (08:17→21:19)
[2022-12-20] MEDS: Albuterol HFA 8 GM 60 PUFF INH IH (08:31)
[2022-12-20 10:32] LABS: Abs Immature Grans 0.02 10^3/uL (0.0-0.06); Absolute Basophil Count 0.01 10^3/uL (0.0-0.2); Absolute Eosinophil Count 0.12 10^3/uL (0.0-0.7); Absolute Monocyte Count 0.65 10^3/uL (0.1-0.8); Basophils % 0.1; Eosinophils % 1.2; HCT 25.8 % (36.0-46.0); HGB 7.3 g/dL (11.2-15.7); Immature Grans % 0.2; MCH 26.1 pg (27.0-33.0); MCHC 28.3 % (32.0-36.0); MCV 92 fL (80-95); MPV 10.3 fL (8.0-11.0); Monocytes % 6.4; Neutrophils % 87.1; Nucleated RBC 0.2 % (0.0-0.3); Platelet Count 219 10^3/uL (130-400); RDW 14.7 % (11.7-14.6); RDW-SD 50.1 fL
[2022-12-20 10:55] LABS: Anion Gap 8.1 mmol/L (3-11); BUN 78 mg/dL (7-18); CO2 30.9 mmol/L (21.0-32.0); Calcium 8.5 mg/dL (8.5-10.1); Chloride 100 mmol/L (98-107); Estimated GFR 15.92 (mL/min/1.73m2); Glucose 212 mg/dL (74-106); Magnesium 2.6 mg/dL (1.8-2.4); NT-proBNP > 35000 pg/mL (<300); Potassium 3.9 mmol/L (3.5-5.1); Sodium 139 mmol/L (136-145)
[2022-12-20] MEDS: Normal Saline 500 ML 100 ML IV (11:59)
[2022-12-20] MEDS: IRON SUCROSE COMPLEX 300 MG in Normal Saline 250 ML 167 MG IVPB (12:00)
[2022-12-20] MEDS: Milk of Magnesia 30 ML CUP PO (12:03)
--- NOTE | 2022-12-20 14:00 | RT.EKG_ITS ---
APPROVED REPORT Exam: Resting ECG Reason for Exam: [facility] Patient Location: I HR:92 bpm ECG Measurements Heart Rate 92 AXIS VA 150 P 63 QRSd 90 QRS 65 QT 374 T 251 QTc 463 Conclusion Sinus rhythm...normal P axis, V-rate 50- 99 Probable left atrial enlargement...P >50mS, <-0.10mV V1 Anterior infarct, old...Q >40mS, abnormal ST-T, V2-V5 Nonspecific T abnormalities, lateral leads...T <-0.10mV, I aVL V5 V6
--- NOTE | 2022-12-20 14:35 | W.PM.PROGNOT ---
Date of Service Date of service: 12/20/22 Time of Service: 14:35 Assessment and Plan Assessment and plan (1) Acute on chronic HFrEF (heart failure with reduced ejection fraction): Status: Acute Assessment and plan: Repeat echo demonstrates moderately dilated left ventricle with global hypokinesis LVEF 40%. RV normal size and function. No or AI moderate MR small PFO. Mild TR. RVSP 34 mm. Small pericardial effusion. Entresto spironolactone are on hold Lasix was discontinued. We will continue to monitor her renal function repeat BMP in the morning. She appears euvolemic at this point Professional time spent interviewing and examining patient, discussion of goals of care with hospital team (care management, nursing and consulting professionals) was 30 minutes.. (2) Elevated troponin I level: Status: Acute Assessment and plan: Given that she has no regional wall motion abnormality I suspect this is likely due to demand ischemia. As per Dr. Meneses's recommendation she would not pursue further ischemic work-up. (3) Ventricular tachycardia: Status: Chronic Assessment and plan: Run of nonsustained V. tach at a rate of 150 bpm for 8 beats asymptomatic. I considered adding a beta-cydni but patient was intolerant to metoprolol in the past and refuses to take a beta-cyndi. (4) CKD (chronic kidney disease) stage 4, GFR 15-29 ml/min: Status: Acute Assessment and plan: Stable stage IV chronic kidney disease. Creatinine is 3.0 and BUN is 78. Her new baseline appears to be a creatinine of 2.5 to 3 and BUN of 60-65. I will hold her diuretics for one more day but she will need to go back on her torsemide and will have to accept a newer baseline renal function. (5) Type 2 diabetes mellitus with retinopathy of both eyes, with long-term current use of insulin: Status: Chronic Assessment and plan: Resume long-acting Lantus at a reduced dose of 13 units daily. Continue sliding scale insulin sensitive level coverage for meals. Continue monitoring blood sugars before meals and at bedtime. (6) Chronic obstructive pulmonary disease: Status: Chronic Assessment and plan: Continue home inhalers. Qualifiers: COPD type: emphysema Emphysema type: centrilobular Qualified Code(s): J43.2 - Centrilobular emphysema (7) Iron deficiency anemia: Assessment and plan: Begin Venofer. We will give her 300 to 400 mg IV daily for total dose of 1000 mg. Upon discharge we will recheck her iron studies in 4 to 6 weeks and then determine further outpatient infusions of iron since she is intolerant to oral iron. (8) Polymyalgia rheumatica: Status: Chronic Assessment and plan: continue home dose of prednisone Subjective Subjective Interval history since last seen: Patient has had no further hyppglycemic spells and no further hypotension. I told her and her daughter that I have resumed her Lantus but at reduced dose of 13 units and giving it to her during the day rather than night. She has been afraid of becoming hypoglycemic at night and therefore has been eating peanut butter and cheese crackers at night. This morning she had a brief, nonsustained run of VT at 150 bpm but was asymptomatic and vital signs were stable. Her diuretics remain on hold d/t PALAK on CKD. BUN and remain elevated at 78 and 3.0. Her Entresto remains on hold, although I considered resumption tonight however her BP still has been on the lower end of normal. Patient was upset w/ nursing who decreased her oxygen to 1 lpm, however, I explaind to the patient that although her oxygen is set at 2 lpm at home, if her oxygen saturation is running in the high 90's then R.T. will typically wean down a patient's oxygen to prevent hypercarbia. Exam Narrative Exam Narrative: Obese white female sitting up at the bedside alert and oriented to person. Circumstance no acute distress Lungs with prolonged expiratory phase without rhonchi or wheezing no rales Heart is regular rate and rhythm Abdomen is obese soft and nontender Lower extremities just a trace of edema she has venous varicosities and venous stasis skin changes. Objective Last Vital Signs Temp 36.8 C 12/20/22 14:10 Pulse 93 H 12/20/22 14:10 Resp 18 12/20/22 14:10 BP 119/78 12/20/22 14:10 Pulse Ox 96 12/20/22 14:10 Laboratory Results - last 24 hr 12/20/22 12/20/22 10:25 10:25 WBC 10.10 RBC 2.80 L Hgb 7.3 L Hct 25.8 L MCV 92 MCH 26.1 L MCHC 28.3 L RDW 14.7 H Plt Count 219 MPV 10.3 Immature Gran % 0.2 Neutrophils % 87.1 Lymphocytes % 5.0 Monocytes % 6.4 Eosinophils % 1.2 Basophils % 0.1 Nucleated RBC % 0.2 Absolute Neutrophils 8.80 H Absolute Lymphocytes 0.50 L Absolute Monocytes 0.65 Absolute Eosinophils 0.12 Absolute Basophils 0.01 Sodium 139 Potassium 3.9 Chloride 100 Carbon Dioxide 30.9 Anion Gap 8.1 BUN 78 H Creatinine 3.0 H Est GFR (CKD-EPI 2020) 15.92 Glucose 212 H Calcium 8.5 Magnesium 2.6 H NT-Pro-B Natriuret Pep > 16171 H Time Spent with Patient Time Spent with Patient: 25-34 minutes Time was spent: preparing to see the patient(eg.review tests), obtaining and/or reviewing separately otained hiistory, ordering medications,tests, procedures, indepentently interpreting results, counseling the patient and care coordination
[2022-12-20 14:45] LABS: Troponin I 58 ng/L (<or=60)
[2022-12-20 18:25] LABS: Troponin I 57 ng/L (<or=60)
[2022-12-20] MEDS: rOPINIRole 0.5 MG TAB 0.25 MG PO (19:05)
[2022-12-20] MEDS: Atorvastatin 40 MG TAB 80 MG PO (19:05)
[2022-12-20] MEDS: Gabapentin 100 MG CAP 200 MG PO (19:05)
[2022-12-20] MEDS: Enoxaparin 30 MG/0.3 ML SYR SC (21:19)
[2022-12-21] VITALS (8 sets, daily range): BP systolic 102–120; BP diastolic 58–70; PULSE 86–94; RESP 18–21; TEMP 36.2–36.6; O2SAT 86–95
[2022-12-21 06:39] LABS: Abs Immature Grans 0.04 10^3/uL (0.0-0.06); Absolute Basophil Count 0.02 10^3/uL (0.0-0.2); Absolute Eosinophil Count 0.18 10^3/uL (0.0-0.7); Absolute Lymphocyte Count 1.38 10^3/uL (1.2-3.4); Absolute Monocyte Count 1.16 10^3/uL (0.1-0.8); Absolute Neutrophil Count 6.81 10^3/uL (1.2-6.7); Basophils % 0.2; Eosinophils % 1.9; HCT 25.8 % (36.0-46.0); HGB 7.6 g/dL (11.2-15.7); Immature Grans % 0.4; Lymphocytes % 14.4; MCH 26.7 pg (27.0-33.0); MCHC 29.5 % (32.0-36.0); MCV 91 fL (80-95); MPV 10.6 fL (8.0-11.0); Monocytes % 12.1; Nucleated RBC 0.2 % (0.0-0.3); Platelet Count 214 10^3/uL (130-400); RBC 2.85 10^6/uL (3.93-5.22); RDW-SD 49.6 fL; WBC 9.59 10^3/uL (4.4-10.8)
[2022-12-21 06:58] LABS: Anion Gap 4.8 mmol/L (3-11); CO2 32.2 mmol/L (21.0-32.0); Calcium 8.9 mg/dL (8.5-10.1); Chloride 103 mmol/L (98-107); Estimated GFR 15.92 (mL/min/1.73m2); Glucose 68 mg/dL (74-106); Potassium 3.9 mmol/L (3.5-5.1); Sodium 140 mmol/L (136-145)
[2022-12-21 07:06] LABS: BUN 87 mg/dL (7-18)
[2022-12-21] MEDS: Glucose Oral Gel 15 GM/37.5 GM TUBE PO (07:36)
[2022-12-21] MEDS: Albuterol HFA 8 GM 60 PUFF INH IH (08:15)
[2022-12-21] MEDS: Cholecalciferol (Vitamin D3) 1,000 UNIT TAB 1000 UNITS PO (08:41)
[2022-12-21] MEDS: Empaglifozin 10 MG TAB PO (08:41)
[2022-12-21] MEDS: Aspirin E.C. 81 MG TABEC PO (08:41)
[2022-12-21] MEDS: Docusate Sodium 100 MG CAP PO (08:42)
[2022-12-21] MEDS: Clopidogrel 75 MG TAB PO (08:42)
[2022-12-21] MEDS: predniSONE 5 MG TAB PO (08:42)
[2022-12-21] MEDS: Insulin Aspart 300 UNITS/3 ML PEN SC ×4 (08:42→17:56)
[2022-12-21] MEDS: predniSONE 10 MG TAB PO (08:42)
[2022-12-21] MEDS: Cetirizine 10 MG TAB 5 MG PO (08:42)
[2022-12-21] MEDS: Spironolactone 25 MG TAB 12.5 MG PO (08:42)
[2022-12-21] MEDS: Acetaminophen 325 MG TAB PO (09:39)
--- NOTE | 2022-12-21 10:04 | IN_ITS ---
PT Notes Visit Reasons: Acute CHF,Anemia Inpatient Physical Therapy Evaluation Date: [12/20/2022] Referring Doctor: [Dr. Tobar] PT Orders: PT CONSULT: [Exacerbation chronic condition] Precautions: [standard, fall risk] Patient Profile/Admitting Diagnosis: [Acute on Chronic HFrEF] Pt is a 72 yo female admitted 12/17/2022 after being referred by PCP for evaluation at ED, history of COPD, O2 dependent, chronic HF, Type 2 diabetes. Since being in hospittal she has had episodes of hypotension and feeling hypoglycemic. PMHX: []All Active Problems?(Updated 12/18/22 @ 00:09 by Padilla Tobar MD) Elevated troponin I level (Acute) Acute on chronic HFrEF (heart failure with reduced ejection fraction) (Acute) Acute kidney injury superimposed on chronic kidney disease (Acute) Chronic respiratory failure with hypoxia (Acute) CKD (chronic kidney disease) stage 4, GFR 15-29 ml/min (Acute) Non-ST elevation IN (NSTEMI) (Acute ~10/2022) Type 2 diabetes mellitus with retinopathy of both eyes, with long-term current use of insulin (Chronic) CVA (cerebral vascular accident) (Acute ~12/2021) Heart failure with reduced ejection fraction (Chronic) Chronic obstructive pulmonary disease (Chronic) O2 dependent on 3L NCPolymyalgia rheumatica (Chronic) Carotid atherosclerosis (Chronic) Essential hypertension (Chronic) GERD (gastroesophageal reflux disease) (Chronic) Pulmonary nodule (Chronic) Nicotine dependence, cigarettes, uncomplicated (Chronic) Annual LDCTOsteoarthritis of hips, bilateral (Chronic) Diabetic nephropathy (Chronic) Ventral hernia (Chronic) Generalized anxiety disorder (Chronic) Benign positional vertigo (Chronic) 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 COVID-19 virus infection (~10/2022) Iron deficiency anemia Palliative care patient Surgical History? History of esophagogastroduodenoscopy (EGD) (07/30/18) S/P cholecystectomy S/P colonoscopy (07/30/18) S/P tonsillectomy Social History/Home Situation: []Patient lives alone at the [address] here in [place] with a ramp to enter.? She now has a pole inst alled close to her bed to facilitate safe transfers and short distance walking.? Home is much more handicap-accessible with assistance from [employer]. ? She has a basement but she stresses that she does not need to go down as she has everything she needs on the main floor of the apartment.? Modified independent with all mobility ADL performance using FWW.? On chronic oxygen supplementation using 2L/min Current Functional Limitations: [] Equipment Owned/DME: [] Subjective: [] Objective: [] General Observation: [] Mental Status: [] Pain: [] Vital Signs: [] ROM: Right Upper Extremity: [] Left Upper Extremity: [] Right Lower Extremity: [] Left Lower Extremity: [] Strength: Right Upper Extremity: [] Left Upper Extremity: [] Right Lower Extremity: [] Left Lower Extremity: [] Sensation: [] Bed Mobility/Transfers: [] Gait: [] Balance: [] Static Sitting: [] Dynamic Sitting: [] Static Standing: [] Dynamic Standing: [] Special Tests: Mobility Limitations Standardized Measure [facility] 6 clicks Basic Mobility Inpatient Short Form: Raw Score: [] Standardized Score: [] CMS Score: [] Informed Consent/Education: Patient instructed in purpose of PT consult and plan of care. Assessment: Patient is a [] year old [] referred to physical therapy services with the diagnosis of []. Patient presents with clinical signs and symptoms consistent with [], as demonstrated by the following impairment level findings: []. Impairments are contributing to the following functional limitations: AMPAC score. Patient is assessed as a [] Low 42673 [] Moderate 51064 [] High 93138 complexity based on the following: History: [] Examination: [] Presentation: [] Decision Making: [] Goals: Goals X1 week 1. Supine-Sit [] 2. Sit-Supine [] 3. Sit-Stand [] 4. Stand-Sit [] 5. Bed-Chair [] 6. Chair-Bed [] 7. Gait [] 8. Stairs [] 9. Independent with home exercise program [] 10. Balance [] Plan of Care/Treatment Plan: 1-2x/day, 7 days/week x 1 week. Plan of care has been reviewed with the WAVE SOLDERING MACHINE OPERATOR providing the service under Physical Therapy direction. Initiate Physical Therapy intervention for strengthening, bed mobility, transfers, gait, stairs, balance training, use of assistive device. DISCHARGE RECOMMENDATIONS: [] [] Home with no services [] [] Home with services [specify] [] Home with outpatient PT [] [] SNF for continued rehabilitation [] [] Detention Care [] [] SNF versus LTC based on ability to participate and progress [] TREATMENT CODE/TIME: []
--- NOTE | 2022-12-21 10:40 | NT_ITS ---
PT Notes Visit Reasons: Acute CHF,Anemia PT non-treatment Patient refused, sleeping and too weak per daughter. Able start some of her his tory and home status. Date: 12/20/2022 Referring Doctor: Dr. Tobar PT Orders: PT CONSULT: Exacerbation chronic condition Precautions: standard, fall risk Patient Profile/Admitting Diagnosis: Acute on Chronic HFrEF Pt is a 72 yo female admitted 12/17/2022 after being referred by PCP for evaluation at ED, history of COPD, O2 dependent, chronic HF, Type 2 diabetes. Since being in hospittal she has had episodes of hypotension and feeling hypoglycemic. Per her daughter she has been extremely weak the past week and needed assist for transfers to the commode. She refused evaluation and treatment today as she was asleep and reported by her daughter that she had another hypoglycemic event this am. She did not wake during conversation with her daughter. O2 n/c at 3L and O2 sat last recorded was 93%. Her daughter also reports that about 1 month ago she fell and bruised her left ankle/foot(rolled over it) as she sometimes doesn't use her 4WRW when going short distances in the home. Daughter states that she has been declining since CVA last spring. PMHX: All Active Problems?(Updated 12/18/22 @ 00:09 by Padilla Tobar MD) Elevated troponin I level (Acute) Acute on chronic HFrEF (heart failure with reduced ejection fraction) (Acute) Acute kidney injury superimposed on chronic kidney disease (Acute) Chronic respiratory failure with hypoxia (Acute) CKD (chronic kidney disease) stage 4, GFR 15-29 ml/min (Acute) Non-ST elevation MD (NSTEMI) (Acute ~10/2022) Type 2 diabetes mellitus with retinopathy of both eyes, with long-term current use of insulin (Chronic) CVA (cerebral vascular accident) (Acute ~12/2021) Heart failure with reduced ejection fraction (Chronic) Chronic obstructive pulmonary disease (Chronic) O2 dependent on 3L NCPolymyalgia rheumatica (Chronic) Carotid atherosclerosis (Chronic) Essential hypertension (Chronic) GERD (gastroesophageal reflux disease) (Chronic) Pulmonary nodule (Chronic) Nicotine dependence, cigarettes, uncomplicated (Chronic) Annual LDCTOsteoarthritis of hips, bilateral (Chronic) Diabetic nephropathy (Chronic) Ventral hernia (Chronic) Generalized anxiety disorder (Chronic) Benign positional vertigo (Chronic) 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 COVID-19 virus infection (~10/2022) Iron deficiency anemia Palliative care patient Surgical History? History of esophagogastroduodenoscopy (EGD) (07/30/18) S/P cholecystectomy S/P colonoscopy (07/30/18) S/P tonsillectomy Social History/Home Situation: []Patient lives alone at the [address] [facility] here in [place] with a ramp to enter.? She now has a pole installed close to her bed to facilitate safe transfers and short distance walking.? Home is much more handicap-accessible with assistance from [employer]. ? She has a basement but she stresses that she does not need to go down as she has everything she needs on the main floor of the apartment.? Modified independent with all mobility ADL performance using FWW.? On chronic oxygen supplementation using 2L/min No evaluation performed for above reasons
--- NOTE | 2022-12-21 12:01 | PGE_ITS ---
Date of Service Date of service: 12/21/22 Time of Service: 12:01 Assessment and Plan Assessment and plan (1) Acute on chronic HFrEF (heart failure with reduced ejection fraction): Status: Acute Assessment and plan: Repeat echo demonstrates moderately dilated left ventricle with global hypokinesis LVEF 40%. RV normal size and function. No or AI moderate MR small PFO. Mild TR. RVSP 34 mm. Small pericardial effusion. Patient started to show signs of fluid retention I am resuming her diuretics. Entresto remains on hold due to her worsening renal function. Unfortunately she is not compliant w/ avoidance of high salt items such as crackers. She has been taking the peanut butter crackrs to avoid hypoglycemia. Professional time spent interviewing and examining patient, discussion of goals of care with hospital team (care management, nursing and consulting professionals) was 30 minutes. (2) Elevated troponin I level: Status: Acute Assessment and plan: Given that she has no regional wall motion abnormality I suspect this is likely due to demand ischemia. As per Dr. Meneses's recommendation she would not pursue further ischemic work-up. (3) Ventricular tachycardia: Status: Chronic Assessment and plan: Run of nonsustained V. tach at a rate of 150 bpm for 8 beats asymptomatic yesterday. None reported in the past 24hr.. I considered adding a beta-cyndi but patient was intolerant to metoprolol in the past and refuses to take a beta- cyndi. I am discontuing her telemetry for her comfort. (4) CKD (chronic kidney disease) stage 4, GFR 15-29 ml/min: Status: Acute Assessment and plan: Stable stage IV chronic kidney disease. Creatinine is 3.0 and BUN is 78. Her new baseline appears to be a creatinine of 2.5 to 3 and BUN of 60-65. I will hold her diuretics for one more day but she will need to go back on her torsemide and will have to accept a newer baseline renal function. (5) Type 2 diabetes mellitus with retinopathy of both eyes, with long-term current use of insulin: Status: Chronic Assessment and plan: Resume long-acting Lantus at a reduced dose of 13 units daily. Continue sliding scale insulin sensitive level coverage for meals. Continue monitoring blood sugars before meals and at bedtime. However discontue any bedtime coverage (6) Chronic obstructive pulmonary disease: Status: Chronic Assessment and plan: Continue home inhalers. Qualifiers: COPD type: emphysema Emphysema type: centrilobular Qualified Code(s): J43.2 - Centrilobular emphysema (7) Iron deficiency anemia: Assessment and plan: Today is her third day of Venofer. This will complete total of 1000 mg over 3 days. Will repeat her CBC and reticulocyte count (8) Polymyalgia rheumatica: Status: Chronic Assessment and plan: continue home dose of prednisone (9) Discharge planning issues: Status: Acute Assessment and plan: I anticipate discharge in the next 24 to 48 hr after she has resumed her diuretics and her CHF is stable. She will return home w/ resumption of home health servies including nursing and P.T. She remains DNR/DNI Subjective Subjective Interval history since last seen: Sujatha had some hypoglycemia during the night. Glucose dropped to 66 this morning but has since come up to 141. She is eating quite well. We have been holding her diuretics d/t azotemia however, she is now developing some increasing bilateral pedal and pretibial edema. She is receiving her 3rd dose of Venofer for her iron deficiency anemia. She has been intolerant of oral iron as an OP. Exam Narrative Exam Narrative: Obese elderly female who is alert and oriented person place time circumstance sitting at the bedside eating her lunch. Lungs with diffusely diminished breath sounds bilaterally no rhonchi or wheezing Hearts regular rate and rhythm. Review of her telemetry shows her rhythm to be sinus rhythm at 79 to 93 bpm Abdomen obese soft and nontender Lower extremities 2+ pitting edema of the pretibial surface of her legs down to her ankles. She has peripheral dependent rubor Objective Last Vital Signs Temp 36.2 C L 12/21/22 11:00 Pulse 86 12/21/22 11:00 Resp 18 12/21/22 11:00 BP 109/58 L 12/21/22 11:00 Pulse Ox 95 12/21/22 11:00 Laboratory Results - last 24 hr 12/20/22 12/20/22 12/21/22 14:21 18:01 06:24 WBC RBC Hgb Hct MCV MCH MCHC RDW Plt Count MPV Immature Gran % Neutrophils % Lymphocytes % Monocytes % Eosinophils % Basophils % Nucleated RBC % Absolute Neutrophils Absolute Lymphocytes Absolute Monocytes Absolute Eosinophils Absolute Basophils Sodium 140 Potassium 3.9 Chloride 103 Carbon Dioxide 32.2 H Anion Gap 4.8 BUN 87 H* Creatinine 3.0 H Est GFR (CKD-EPI 2020) 15.92 Glucose 68 L Calcium 8.9 Troponin I 58 57 12/21/22 06:24 WBC 9.59 RBC 2.85 L Hgb 7.6 L Hct 25.8 L MCV 91 MCH 26.7 L MCHC 29.5 L RDW 15.0 H Plt Count 214 MPV 10.6 Immature Gran % 0.4 Neutrophils % 71.0 Lymphocytes % 14.4 Monocytes % 12.1 Eosinophils % 1.9 Basophils % 0.2 Nucleated RBC % 0.2 Absolute Neutrophils 6.81 H Absolute Lymphocytes 1.38 Absolute Monocytes 1.16 H Absolute Eosinophils 0.18 Absolute Basophils 0.02 Sodium Potassium Chloride Carbon Dioxide Anion Gap BUN Creatinine Est GFR (CKD-EPI 2020) Glucose Calcium Troponin I Time Spent with Patient Time Spent with Patient: 25-34 minutes Time was spent: preparing to see the patient(eg.review tests), ordering medications,tests, procedures, indepentently interpreting results, counseling the patient and care coordination
[2022-12-21] MEDS: Normal Saline 500 ML 100 ML IV (12:16)
[2022-12-21] MEDS: IRON SUCROSE COMPLEX 300 MG in Normal Saline 250 ML 167 MG IVPB (12:17)
[2022-12-21] MEDS: Torsemide 20 MG TAB PO (14:26)
[2022-12-21] MEDS: Gabapentin 100 MG CAP 200 MG PO (19:52)
[2022-12-21] MEDS: rOPINIRole 0.5 MG TAB 0.25 MG PO (19:55)
[2022-12-21] MEDS: Atorvastatin 40 MG TAB 80 MG PO (19:55)
[2022-12-21] MEDS: Normal Saline Flush 10 ML SYR IVP (19:57)
[2022-12-21] MEDS: Enoxaparin 30 MG/0.3 ML SYR SC (22:35)
[2022-12-22] MEDS: Acetaminophen 325 MG TAB PO (00:27)
[2022-12-22 03:30] VITALS: BP 99/67; PULSE 80; RESP 20; TEMP 36.8; O2SAT 94
[2022-12-22] MEDS: Albuterol HFA 8 GM 60 PUFF INH IH ×3 (03:58→19:34)
[2022-12-22 06:48] LABS: Abs Immature Grans 0.04 10^3/uL (0.0-0.06); Absolute Basophil Count 0.02 10^3/uL (0.0-0.2); Absolute Eosinophil Count 0.14 10^3/uL (0.0-0.7); Absolute Lymphocyte Count 1.13 10^3/uL (1.2-3.4); Absolute Monocyte Count 1.15 10^3/uL (0.1-0.8); Absolute Neutrophil Count 7.15 10^3/uL (1.2-6.7); Basophils % 0.2; Eosinophils % 1.5; HCT 24.5 % (36.0-46.0); HGB 7.1 g/dL (11.2-15.7); Immature Grans % 0.4; Lymphocytes % 11.7; MCV 90 fL (80-95); MPV 10.7 fL (8.0-11.0); Monocytes % 11.9; Neutrophils % 74.3; Nucleated RBC 0.3 % (0.0-0.3); RBC 2.73 10^6/uL (3.93-5.22); RDW 15.4 % (11.7-14.6); RDW-SD 50.2 fL; WBC 9.63 10^3/uL (4.4-10.8)
[2022-12-22 06:50] LABS: Reticulocyte 3.3 % (0.5-2.4)
[2022-12-22 07:17] LABS: Anion Gap 7.9 mmol/L (3-11); CO2 29.1 mmol/L (21.0-32.0); CREATININE 3.2 mg/dL (0.55-1.02); Calcium 8.4 mg/dL (8.5-10.1); Chloride 100 mmol/L (98-107); Estimated GFR 14.73 (mL/min/1.73m2); Glucose 202 mg/dL (74-106); Potassium 3.9 mmol/L (3.5-5.1); Sodium 137 mmol/L (136-145)
[2022-12-22 07:36] LABS: Basophilic Stippling Present; Diff Comment Diff Reviewed; Hypochromasia 3+; Platelet Count 197 10^3/uL (130-400); Poikilocytes 2+
[2022-12-22 07:44] LABS: BUN 92 mg/dL (7-18)
[2022-12-22 07:52] VITALS: BP 103/53; PULSE 98; RESP 20; TEMP 36.4; O2SAT 92
[2022-12-22] MEDS: Torsemide 20 MG TAB PO ×2 (08:14→17:15)
[2022-12-22] MEDS: Aspirin E.C. 81 MG TABEC PO (08:16)
[2022-12-22] MEDS: Cholecalciferol (Vitamin D3) 1,000 UNIT TAB 1000 UNITS PO (08:17)
[2022-12-22] MEDS: Clopidogrel 75 MG TAB PO (08:17)
[2022-12-22] MEDS: Cetirizine 10 MG TAB 5 MG PO (08:17)
[2022-12-22] MEDS: Empaglifozin 10 MG TAB PO (08:18)
[2022-12-22] MEDS: Docusate Sodium 100 MG CAP PO (08:19)
[2022-12-22] MEDS: predniSONE 5 MG TAB PO (08:19)
[2022-12-22] MEDS: predniSONE 10 MG TAB PO (08:19)
[2022-12-22] MEDS: Insulin Aspart 300 UNITS/3 ML PEN SC ×5 (08:21→17:17)
--- NOTE | 2022-12-22 08:47 | CMPROGNOTE_ITS ---
- If Service Date Differs Date of service: 12/22/22 Time of Service: 08:47 Care Management Progress Note S/O: Beth was sitting up on the side of the bed when CM met with her. When asked by CM how she is doing today, she stated terrible. She went on to explain that she had some chest discomfort in the middle of the night and was upset because the nurse would not give her the inhaler that she requested. Later in the day when she spoke to her daughter, she was reminded that that particular inhaler is not as needed; it is ordered to be give twice a day and was not due until 8am. Beth admitted she asked for the wrong inhaler. CM discussed Beth's discharge plan with her today. She will remain at [facility] and discharge tomorrow as long as there are no changes in her condition. Beth contacted [facility] [employer] [facility] today to notify them that she would be discharging tomorrow and would need her meal service resumed. CM contacted [facility] to inform them of the same and they will resume services on Thursday. Beth also called [facility] to inform them that she will be discharged and will need to have caregiver support restarted. Beth has stated to the RT staff that her [employer] oxygen concentrator is not wotrking. RT unabale to trouble shoot as Beth was supplied directly from the [employer]. ABUNDIO was able to confirm that Beth's daughter Dejuan in [place] is working with the company to resolve the issues. A: Beth is a 72 year old woman admitted on 12/17/22 with CHF P:Beth will likely be discharged home with a resumption of home health services for nursing and PT. She will also have a resumption of caregiver services through [facility] and [facility] [facility]. She will follow up with her PCP and plan of care and transport with family. CM will continue to support Beth and assess for ongoing discharge needs.
[2022-12-22] MEDS: Insulin Glargine 300 UNITS/3 ML PEN 13 UNITS SC (09:09)
[2022-12-22 11:20] VITALS: BP 100/67; PULSE 85; RESP 17; TEMP 36.8; O2SAT 95
--- NOTE | 2022-12-22 12:01 | IN_ITS ---
Date of service: 12/22/22 Time of Service: 11:00 PT Notes Visit Reasons: Acute CHF,Anemia Physical Therapy Inpatient Initial Evaluation Date: 12/22/2022 Referring Doctor:? Padilla Tobar MD PT Orders: PT CONSULT: Exacerbation Chronic Cond Precautions: Activity as tolerated. On 2 L of oxygen via NC. Patient Profile/Admitting Diagnosis:? Patient is a 72-year-old female who presented to the ED on 12/17/2022 with generalized weakness due to increasing SOB, wekaness, and diarrhea.? Patient is diagnosed with acute on chronic heart failure with decreased ejection fraction, elevated troponin, ventricular tachycardia, chronic kidney disease, type 2 diabetes mellitus, COPD, polymyalgia rheumatica and JARED. PMHX: All Active Problems?(Updated 12/18/22 @ 00:09 by Padilla Tobar MD) Elevated troponin I level (Acute) Acute on chronic HFrEF (heart failure with reduced ejection fraction) (Acute) Acute kidney injury superimposed on chronic kidney disease (Acute) Chronic respiratory failure with hypoxia (Acute) CKD (chronic kidney disease) stage 4, GFR 15-29 ml/min (Acute) Non-ST elevation NC (NSTEMI) (Acute ~10/2022) Type 2 diabetes mellitus with retinopathy of both eyes, with long-term current use of insulin (Chronic) CVA (cerebral vascular accident) (Acute ~12/2021) Heart failure with reduced ejection fraction (Chronic) Chronic obstructive pulmonary disease (Chronic) O2 dependent on 3L NC Polymyalgia rheumatica (Chronic) Carotid atherosclerosis (Chronic) Essential hypertension (Chronic) GERD (gastroesophageal reflux disease) (Chronic) Pulmonary nodule (Chronic) Nicotine dependence, cigarettes, uncomplicated (Chronic) Annual LDCTOsteoarthritis of hips, bilateral (Chronic) Diabetic nephropathy (Chronic) Ventral hernia (Chronic) Generalized anxiety disorder (Chronic) Benign positional vertigo (Chronic) 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 COVID-19 virus infection (~10/2022) Iron deficiency anemia Palliative care patient Surgical History? History of esophagogastroduodenoscopy (EGD) (07/30/18) S/P cholecystectomy S/P colonoscopy (07/30/18) S/P tonsillectomy Social History/Home Situation: Patient lives alone at the [address] here in [place] with a ramp to enter.? She now has a pole installed close to her bed to facilitate safe transfers and short distance walking.? Home is much more handicap- accessible with assistance from [employer]. ? She has a basement but she stresses that she does not need to go down as she has everything she needs on the main floor of the apartment.? Modified independent with all mobility ADL performance using FWW.? On chronic oxygen supplementation using 2L/min. Hoping to get meals on wheels back. Equipment Owned/DME: FWW, 4WW Subjective: Agreeable to consult. Denies headache, chest pain, and lightheadedness throughout session. Hopeful to go back home once discharged from the hospital, does not want to go to a SNF due to previous negative experience. Objective: General Observation:?Telemetry monitoring in place.? IV access in L UE.? Oxygen supplementation of 2 L/min via NC. Mental Status: Alert and oriented x 4 Pain: Denies headache, chest pain, and lightheadedness Vital Signs: WNL as closely monitored via tele ROM: Right Upper Extremity: ? Shoulder Flexion WFL. Shoulder abduction WFL. Elbow flexion WFL. Wrist flexion WFL. Opening and closing of hand WFL. Left Upper Extremity:? Shoulder Flexion allows only up to 90 degrees. Shoulder abduction allows only up to 80 degrees. Elbow flexion WFL. Wrist flexion WFL. Opening and closing of hand WFL. Right Lower Extremity: Hip flexion WFL. Hip abduction WFL. Knee flexion WFL. Ankle dorsiflexion to neutral only. Ankle plantarflexion WFL. Left Lower Extremity: Hip flexion unable to bend beyond 90 due to left hip pain. Hip abduction WFL. Knee flexion WFL. Ankle dorsiflexion to neutral only. Ankle plantarflexion WFL. Strength: Right Upper Extremity: Shoulder flexors 4-/5. Shoulder abductors 4-/5. Elbow flexors 4/5. Elbow extensors 4/5. Care Process Manager weak but functional. Left Upper Extremity: Shoulder flexors 3-/5. Shoulder abductors 3-/5. Elbow flexors 4-/5. Elbow extensors 4-/5. Care Process Manager weak but functional. Right Lower Extremity: Hip flexors 3+/5. Hip abductors 4-/5. Knee flexors 4/5. Knee extensors 4-/5. Ankle dorsiflexors 3-/5. Ankle plantarflexors 4-/5. Left Lower Extremity:Hip flexors 3-/5. Hip abductors 3-/5. Knee flexors 3/5. Knee extensors 3/5. Ankle dorsiflexors 3-/5. Ankle plantarflexors 4/5. Sensation: Intact as to pain and pressure on bilateral lower extremities Bed Mobility/Transfers: Supine to sit standby assist Sit to stand standby assist with FWW Stand to sit standby assist Bed to chair?standby assist Gait: Patient tolerated level surface ambulation inside room?of about 30 feet using front-wheeled walker with stand by assist.? Reciprocal step through gait pattern.? Terri decreased.? Denies headache, chest pain, and dizziness.? Reported minimal shortness of breath after activity. Balance: Static Sitting: Normal Dynamic Sitting: Normal Static Standing: Fair Dynamic Standing: Fair Special Tests: Mobility Limitations Standardized Measure [facility] 6 clicks Basic Mobility Inpatient Short Form: Raw Score: 18? CMS Score: 47% deficit? ? ? Informed Consent/Education:? Patient was instructed in purpose of PT consult and plan of care. Agreeable to proceed with established PT POC to achieve personal goals. Assessment: Patient is a 72-year-old female who presented to the ED on 12/17/2022 with generalized weakness due to increasing SOB, wekaness, and diarrhea.? Patient is diagnosed with acute on chronic heart failure with decreased ejection fraction, elevated troponin, ventricular tachycardia, chronic kidney disease, type 2 diabetes mellitus, COPD, polymyalgia rheumatica and JARED. Patient presents with clinical signs and symptoms consistent with current/admitting diagnoses that have resulted to mobility limitations and gait instability as demonstrated by the following impairment level findings: 1.? Decreased strength to B LE major muscle groups (L more affected than R due to previous CVA) 2.? Impaired standing balance 3.? Impaired activity tolerance 4.? Limitation of joint range of motion in left shoulder and left hip (L more affected than R due to previous CVA) 5.? Shortness of breath Impairments are contributing to the following functional limitations: 1.? Inability to safely ambulate without assistive device 2.? Increase completion time for mobility ADL performance 3.? Increased fall risk Patient is assessed as a 08649 moderate complexity based on the following: History: Patient is a 72-year-old female who presented to the ED on 12/17/2022 with generalized weakness due to increasing SOB, wekaness, and diarrhea.? Patient is diagnosed with acute on chronic heart failure with decreased ejection fraction, elevated troponin, ventricular tachycardia, chronic kidney disease, type 2 diabetes mellitus, COPD, polymyalgia rheumatica and JARED. Examination: Demonstrable impairment in strength, balance, and activity tolerance with underlying impairments and functional limitations as documented above Presentation: Evolving Decision Makin moderate complexity Goals: Goals X1 week 1. Supine-Sit independent 2. Sit-Supine independent 3. Sit-Stand independent 4. Stand-Sit independent 5. Bed-Chair independent 6. Chair-Bed independent 7. Independent gait on level surface with use of least restrictive device for at least 50 feet without report of pain nor dyspnea 8. Good static and dynamic standing balance/tolerance DISCHARGE RECOMMENDATIONS: [] ? Home with no services [] [X] ? Home with services.? Home when medically cleared by hospitalist.? Recommend home health PT services in order to progress mobility level using least restrictive assistive ambulatory device, assess home safety, identify additional equipment needs, and establish a functional maintenance program that will increase ability of patient to remain at home. [] ? Home with outpatient PT [] [] ? SNF for continued rehabilitation [] [] ? Field Sales Executive [facility] [] [] ? SNF versus LTC based on ability to participate and progress [] TREATMENT CODE/TIME: 47093 x 23 minutes beginning at 11:00 AM. Thank you for the opportunity to participate in the care of this patient. Nahed Miller PT, DPT, CLT [facility] [place], [place]
[2022-12-22 15:45] VITALS: BP 110/68; PULSE 92; RESP 18; TEMP 36.4; O2SAT 97
--- NOTE | 2022-12-22 16:54 | PGE_ITS ---
Date of Service Date of service: 12/22/22 Time of Service: 16:54 Assessment and Plan Assessment and plan (1) Acute on chronic HFrEF (heart failure with reduced ejection fraction): Status: Acute Assessment and plan: Repeat echo demonstrates moderately dilated left ventricle with global hypokinesis LVEF 40%. RV normal size and function. No or AI moderate MR small PFO. Mild TR. RVSP 34 mm. Small pericardial effusion. Patient started to show signs of fluid retention and her diuretic was resumed yesterday. Entresto remains on hold due to her worsening renal function. Unfortunately she is not compliant w/ avoidance of high salt items such as crackers. She has been taking the peanut butter crackers to avoid hypoglycemia. (2) Elevated troponin I level: Status: Acute Assessment and plan: Given that she has no regional wall motion abnormality I suspect this is likely due to demand ischemia. As per Dr. Meneses's recommendation she would not pursue further ischemic work-up. (3) Ventricular tachycardia: Status: Chronic Assessment and plan: Run of nonsustained V. tach at a rate of 150 bpm for 8 beats asymptomatic on 12/20. None reported in the past 24hr. Had considered adding a beta-cyndi but patient was intolerant to metoprolol in the past and refuses to take a beta- cyndi. Telemetry d/c'd for pts comfort. (4) CKD (chronic kidney disease) stage 4, GFR 15-29 ml/min: Status: Acute Assessment and plan: Stage IV chronic kidney disease. Creatinine is 3.0 > 3.2. Her new baseline appears to be a creatinine of 2.5 to low 3's and BUN of 60-65. Monitor, on toresemide. (5) Type 2 diabetes mellitus with retinopathy of both eyes, with long-term current use of insulin: Status: Chronic Assessment and plan: Resume long-acting Lantus at a reduced dose of 13 units daily. Continue sliding scale insulin sensitive level coverage for meals. Continue monitoring blood sugars before meals and at bedtime. However discontue any bedtime coverage (6) Chronic obstructive pulmonary disease: Status: Chronic Assessment and plan: Continue home inhalers. Qualifiers: COPD type: emphysema Emphysema type: centrilobular Qualified Code(s): J43.2 - Centrilobular emphysema (7) Iron deficiency anemia: Assessment and plan: Today is her third day of Venofer. This will complete total of 1000 mg over 3 days. Will repeat her CBC and reticulocyte count (8) Polymyalgia rheumatica: Status: Chronic Assessment and plan: continue home dose of prednisone (9) Discharge planning issues: Status: Acute Assessment and plan: I anticipate discharge in the next 24 to 48 hr after she has resumed her diuretics and her CHF is stable. She will return home w/ resumption of home health servies including nursing and P.T. She remains DNR/DNI Subjective Subjective Patient reports: afebrile; denies no new complaints (low back pain this am. ), nausea, vomiting or shortness of breath Interval history since last seen: Still notes some generalized unsteadiness with ambulation but improving. Exam Narrative Exam Narrative: Obese elderly female who is alert and oriented person place time circumstance sitting at the bedside. Lungs with diffusely diminished breath sounds bilaterally no rhonchi or wheezing. Nonlabored breathing. Hearts regular rate and rhythm. Review of her telemetry shows her rhythm to be sinus rhythm. Abdomen obese soft and nontender Lower extremities 2+ pitting edema of the pretibial surface of her legs down to her ankles. She has peripheral dependent rubor Objective Last Vital Signs Temp 36.4 C L 12/22/22 15:45 Pulse 92 H 12/22/22 15:45 Resp 18 12/22/22 15:45 BP 110/68 12/22/22 15:45 Pulse Ox 97 12/22/22 15:45 Laboratory Results - last 24 hr 12/22/22 12/22/22 12/22/22 06:00 06:00 06:00 WBC 9.63 RBC 2.73 L Hgb 7.1 L Hct 24.5 L MCV 90 MCH 26.0 L MCHC 29.0 L RDW 15.4 H Plt Count 197 MPV 10.7 Reticulocyte % (Auto) 3.3 H Immature Gran % 0.4 Neutrophils % 74.3 Lymphocytes % 11.7 Monocytes % 11.9 Eosinophils % 1.5 Basophils % 0.2 Nucleated RBC % 0.3 Absolute Neutrophils 7.15 H Absolute Lymphocytes 1.13 L Absolute Monocytes 1.15 H Absolute Eosinophils 0.14 Absolute Basophils 0.02 RBC Morphology See Below Hypochromasia 3+ Poikilocytosis 2+ Basophilic Stippling Present Sodium 137 Potassium 3.9 Chloride 100 Carbon Dioxide 29.1 Anion Gap 7.9 BUN 92 H* Creatinine 3.2 H Est GFR (CKD-EPI 2020) 14.73 Glucose 202 H Calcium 8.4 L Time Spent with Patient Time Spent with Patient: 25-34 minutes Time was spent: preparing to see the patient(eg.review tests), ordering medications,tests, procedures, indepentently interpreting results and counseling the patient
[2022-12-22 19:37] VITALS: BP 124/72; PULSE 92; RESP 18; TEMP 36.9; O2SAT 99
[2022-12-22] MEDS: rOPINIRole 0.5 MG TAB 0.25 MG PO (20:01)
[2022-12-22] MEDS: Atorvastatin 40 MG TAB 80 MG PO (20:01)
[2022-12-22] MEDS: Gabapentin 100 MG CAP 200 MG PO (20:02)
[2022-12-22] MEDS: Enoxaparin 30 MG/0.3 ML SYR SC (21:17)
[2022-12-22 23:13] VITALS: BP 100/65; PULSE 80; RESP 20; TEMP 36.7; O2SAT 98
[2022-12-23] MEDS: Albuterol HFA 8 GM 60 PUFF INH IH ×2 (00:28→12:30)
[2022-12-23 03:02] VITALS: BP 125/75; PULSE 90; RESP 18; TEMP 36.9; O2SAT 97
[2022-12-23 06:09] LABS: HCT 25.3 % (36.0-46.0); HGB 7.4 g/dL (11.2-15.7)
[2022-12-23 06:27] LABS: Anion Gap 9.7 mmol/L (3-11); CO2 27.3 mmol/L (21.0-32.0); CREATININE 3.5 mg/dL (0.55-1.02); Calcium 8.5 mg/dL (8.5-10.1); Chloride 98 mmol/L (98-107); Estimated GFR 13.23 (mL/min/1.73m2); Glucose 238 mg/dL (74-106); Potassium 4.4 mmol/L (3.5-5.1); Sodium 135 mmol/L (136-145)
[2022-12-23 06:47] LABS: BUN 105 mg/dL (7-18)
[2022-12-23 07:30] VITALS: BP 110/70; PULSE 83; RESP 17; TEMP 36; O2SAT 95
--- NOTE | 2022-12-23 08:26 | W.PALLCONSUL ---
Date of service: 12/23/22 Time of Service: 08:15 History of Present Illness History of Present Illness Chief Complaint: Acute on chronic heart failure, worsening anemia, CKD 4 Narrative: Beth Pratt is a 72 yo woman rate of heart failure with reduced ejection fraction (last EF 35%), type 2 diabetes, steroid-dependent over the last year due to PMR, CKD 4, history of ischemic CVA 01/21, COPD (continues to smoke and on home oxygen), hypertension, NSTEMI October 2022 who is readmitted to the hospital December 17 with Worsening shortness of breath, tachypneic and mildly hypotensive at that time. Ruled out for an PA. Ultimately felt to have acute heart failure on top of chronic heart failure. Infection was ruled out. Repeat echocardiogram showed stable lung function from previous October evaluation. Cardiology consultation felt that she did not have an MRI another PA, but had slightly increased troponin from demand. Unfortunately diuretics to treat her volume overload has resulted in worsening renal function. Admitting creatinine 2.6 has slowly and steadily risen up to 3.5 today. Other issue is profound anemia, much worse than previously. Diagnosed with iron deficiency anemia (and likely multifactorial due to CKD 4). She has been intolerant of oral iron, but had never previously been given parenteral iron. She received several iron infusions during this hospital stay. We have not seen a bump in her H/H yet. She denies having received red blood cell transfusion. Palliative care team had been scheduled to see her as outpatient this week but is seeing her as an inpatient to continue to offer supportive care, help with understanding medical information and prognosis, and help with medical decision making as her clinical course progresses.? Primary Care physician: Clarissa Calhoun [facility] Cardiology: Dr. Meneses Pulmonology: Dr. Hugo Neurology: Dr. Lyles Rheum: [facility] Impression of currents health status: Has improved, feels ready to go home. However legs are still really weak and cannot move around as she previously could. What bothers you the most: Leg weakness. Frustrated that clinical staff are not sharing lab results and keeping her updated on her clinical status. What worries you the most: Longstanding reliable guest services attendant through [employer] is no longer seeing her and she is very worried to be getting a new, reliable, competent guest services attendant. 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 in 1976, subsequently and twice.? 4 daughters, 2 live in [place].? Multiple grandchildren and great-grandchildren.? Lived in [place] when she was independent.? Currently living in apartment in? [facility].? Has Choices for Care; receiving assistance from [facility] with nursing support, guest services attendant, help with shopping.? Transportation provided by home health as well.? Denies alcohol or THC use.? Continues to smoke, declines to tell me how much she is smoking.? Enjoys having family and friends come and visit. Daughter Danna is her healthcare agent and does most of her shopping, frequently visits to help out. ADLs: Independent IADLs: Needs help with shopping, too dyspneic to do food preparation or any housework. Needs spotting when bathing Reports she is ambulatory in her apartment using her walker.? Hearing: Okay, functional during my visit Vision: Decreased, reports she has to wait 6 months until her cataracts can be fixed Spiritual history: Deep belief in God, God very important to her, prays. Does not attend the medical center Palliative review of systems: Pain: NOne Dyspnea: Improving GI symptoms: Stable chronic diarrhea Appetite: Fine Depression: Denies Anxiety: Frustrated by being in the hospital and poor communication Emotional Distress: Denies Spiritual/Existential Distress: Denies : Denies Advanced Care Planning: Advanced Directive:ON file Health Care Agent: Daughters, [facility] form on file. COLST: On file from 02/21: DNI/DNR, +tranfer, +consider abx, no feeding tube, no dialysis, reviewed again today, no change (dialysis is an update given worsening creatinine Assessment and Plan Assessment and plan (1) Acute on chronic HFrEF (heart failure with reduced ejection fraction): Status: Acute Assessment and plan: Patient clinically improving. Clinical staff was concerned that she is ingesting too much sodium. She says she uses Mrs. Quiroz (high in potassium, also concerning). She has not met with RD during this hospital admission. Suggest: Have her meet with hospital RD to discuss sodium and potassium intake as well as other nutritional issues while she is still in the hospital. (Discussed with Dr. Guardado) (2) CKD (chronic kidney disease) stage 4, GFR 15-29 ml/min: Status: Acute Assessment and plan: Overall baseline renal function has worsened and her new normal, is now in the 2.5?3.5 range. Anticipatory guidance around worsening renal function, actual numbers written down per patient request. Recommended that she keep these in a spiral notebook (will be provided by care management). She understands that this is a delicate dance between what her heart and lungs need versus what her kidneys need. That it is normal and appropriate to be advised of frequent changes in medication dosages. Importance of limiting sodium. Potassium may need to be limited as well but not for now. Discussion around dialysis. She absolutely does not want dialysis. A close friend did dialysis and it was a disaster. Discussed it is difficult to impossible to predict time course of renal failure. We reviewed the pros and cons of dialysis and what that would mean should she go into end-stage renal disease. She is firm about the dialysis. Recommend: That inpatient and outpatient medical providers write down specific medical information (such as creatinine and potassium levels) in her notebook and large handwriting when they see her. (3) Type 2 diabetes mellitus with retinopathy of both eyes, with long-term current use of insulin: Status: Chronic Assessment and plan: As per hospitalist (4) Nicotine dependence, cigarettes, uncomplicated: Status: Chronic Assessment and plan: Reports that prior to admission she was only taking 1 or 2 drags on 2 cigarettes a day. We discussed that she has almost quit and would she consider completely stopping at this point to help her heart, lungs and kidneys. She did not wish to discuss this further. She does not have a nicotine patch on in the hospital; not allergic but does not help her. My impression is that she is quite close to completely stopping and it would not be that difficult at this point. Recommend: That other medical providers evaluate her redness to completely stop in future encounters. (5) Palliative care encounter: Status: Acute Assessment and plan: Palliative care team will continue to meet with patient. We will schedule home visit in 3 to 4 weeks to follow-up on today's discussion (6) Advanced care planning/counseling discussion: Status: Acute Assessment and plan: See discussion under chronic renal failure above, no changes in desired limitation of treatment at this time. - This document was created by [employer] software. Content was screened for misspellings, grammatical mistakes, etc. I apologize for any problems, but please contact me for further clarification if needed. PFSH All Active Problems (Updated 12/23/22 @ 10:18 by Sweetie Trejo MD) Advanced care planning/counseling discussion (Acute) Palliative care encounter (Acute) Discharge planning issues (Acute) Ventricular tachycardia (Chronic) Elevated troponin I level (Acute) Acute on chronic HFrEF (heart failure with reduced ejection fraction) (Acute) Acute kidney injury superimposed on chronic kidney disease (Acute) Chronic respiratory failure with hypoxia (Acute) CKD (chronic kidney disease) stage 4, GFR 15-29 ml/min (Acute) Non-ST elevation PA (NSTEMI) (Acute ~10/2022) Type 2 diabetes mellitus with retinopathy of both eyes, with long-term current use of insulin (Chronic) CVA (cerebral vascular accident) (Acute ~12/2021) Heart failure with reduced ejection fraction (Chronic) Chronic obstructive pulmonary disease (Chronic) O2 dependent on 3L NC Polymyalgia rheumatica (Chronic) Carotid atherosclerosis (Chronic) Essential hypertension (Chronic) GERD (gastroesophageal reflux disease) (Chronic) Pulmonary nodule (Chronic) Nicotine dependence, cigarettes, uncomplicated (Chronic) Annual LDCT Osteoarthritis of hips, bilateral (Chronic) Diabetic nephropathy (Chronic) Ventral hernia (Chronic) Generalized anxiety disorder (Chronic) Benign positional vertigo (Chronic) 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 Father Diabetes Daughter No problems noted. Daughter No problems noted. Daughter No problems noted. Daughter No problems noted. Social History Smoking/Tobacco Use Status: Current-Occasional Tobacco Type: cigarettes Smoking packs per day: 2 Smoking cigarettes per day: 40.0 Years smoked: 59 Smoking pack-years: 118.00 Smoking risk assessment performed?: Yes Alcohol Intake: never Drug use: Never Substance use type: does not use 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 Pets and animals: Yes Pets and animals: cat(s) Current gender identity: female What type of physical activity do you participate in: none Irma/Jew: Zoroastrianism Special irma needs: No Do you feel safe at home: Yes Do you feel safe in your relationship?: Yes Additional Social history: Lives alone in apartment at [place]. 4 daughters Exam Narrative Exam Narrative: Pleasant but occasionally frustrated appearing elderly woman, slightly pale. Sitting up in bed. No cough. No obvious tachypnea. Able to speak in complete sentences. Alert and oriented x3. Results Last Vital Signs Temp 36.9 C 12/23/22 03:02 Pulse 90 12/23/22 03:02 Resp 18 12/23/22 03:02 BP 125/75 12/23/22 03:02 Pulse Ox 97 12/23/22 03:02 Labs 12/23/22 05:47 12/23/22 05:47 Labs: Laboratory Results - last 24 hr 12/23/22 12/23/22 05:47 05:47 Hgb 7.4 L Hct 25.3 L Sodium 135 L Potassium 4.4 Chloride 98 Carbon Dioxide 27.3 Anion Gap 9.7 BUN 105 H* Creatinine 3.5 H Est GFR (CKD-EPI 2020) 13.23 Glucose 238 H Calcium 8.5
[2022-12-23] MEDS: Insulin Aspart 300 UNITS/3 ML PEN SC ×6 (09:20→17:58)
[2022-12-23] MEDS: Insulin Glargine 300 UNITS/3 ML PEN 18 UNITS SC (09:21)
[2022-12-23] MEDS: Aspirin E.C. 81 MG TABEC PO (09:22)
[2022-12-23] MEDS: Spironolactone 25 MG TAB 12.5 MG PO (09:22)
[2022-12-23] MEDS: predniSONE 10 MG TAB PO (09:22)
[2022-12-23] MEDS: Cholecalciferol (Vitamin D3) 1,000 UNIT TAB 1000 UNITS PO (09:23)
[2022-12-23] MEDS: Pantoprazole 40 MG TABCR PO (09:23)
[2022-12-23] MEDS: predniSONE 5 MG TAB PO (09:23)
[2022-12-23] MEDS: Cetirizine 10 MG TAB 5 MG PO (09:23)
[2022-12-23] MEDS: Clopidogrel 75 MG TAB PO (09:23)
[2022-12-23] MEDS: Empaglifozin 10 MG TAB PO (09:23)
[2022-12-23] MEDS: Docusate Sodium 100 MG CAP PO (09:24)
[2022-12-23] MEDS: Acetaminophen 325 MG TAB PO (09:39)
--- NOTE | 2022-12-23 11:37 | PDOC.CMPRO ---
- If Service Date Differs Date of service: 12/23/22 Time of Service: 11:37 Care Management Progress Note S/O: Beth was started on a lasix drip today, which per MD will delay discharge at least for today. No change to overall plan. CM continues to follow. A: Beth is a 72 year old woman admitted on 12/17/22 with CHF P: Beth will likely be discharged home with a resumption of home health services for nursing and PT. She will also have a resumption of caregiver services through [facility] and [employer] [facility]. She will follow up with her PCP and plan of care and transport with family. CM will continue to support Beth and assess for ongoing discharge needs.
[2022-12-23 11:40] VITALS: BP 116/74; PULSE 76; RESP 18; TEMP 36.9; O2SAT 95
--- NOTE | 2022-12-23 13:34 | PGE_ITS ---
Date of Service Date of service: 12/23/22 Time of Service: 13:34 Assessment and Plan Assessment and plan (1) Acute on chronic HFrEF (heart failure with reduced ejection fraction): Status: Acute Assessment and plan: Repeat echo demonstrates moderately dilated left ventricle with global hypokinesis LVEF 40%. RV normal size and function. No or AI moderate MR small PFO. Mild TR. RVSP 34 mm. Small pericardial effusion. Patient started to show signs of fluid retention and her diuretic was resumed yesterday. Entresto remains on hold due to her worsening renal function. Unfortunately she is not compliant w/ avoidance of high salt items such as crackers. She has been taking the peanut butter crackers to avoid hypoglycemia. Poor urine output and wt gain. Initially received the first of a BID dosing of torsemide 20mg po this am. Decision was then made to initiate lasix drip. Emphasize low Na intake. No excessive fluid intake noted. (2) Elevated troponin I level: Status: Acute Assessment and plan: Given that she has no regional wall motion abnormality I suspect this is likely due to demand ischemia. As per Dr. Meneses's recommendation she would not pursue further ischemic work-up. (3) Ventricular tachycardia: Status: Chronic Assessment and plan: Run of nonsustained V. tach at a rate of 150 bpm for 8 beats asymptomatic on 12/20. None reported in the past 24hr. Had considered adding a beta-cyndi but patient was intolerant to metoprolol in the past and refuses to take a beta- cyndi. Telemetry d/c'd for pts comfort. (4) CKD (chronic kidney disease) stage 4, GFR 15-29 ml/min: Status: Acute Assessment and plan: Stage IV chronic kidney disease. Creatinine is 3.0 > 3.2 > 3.5. Poor intake of fluids documented yesterday. Also has wt gain; diuretics were held for a period of this previously. Lasix drip initiated. Monitor creatinine closely. (5) Type 2 diabetes mellitus with retinopathy of both eyes, with long-term current use of insulin: Status: Chronic Assessment and plan: Glucose readings have increased. Will increase dose of long-acting insulin. Continue sliding scale insulin sensitive level coverage for meals. Continue monitoring blood sugars before meals and at bedtime. However discontinue any bedtime coverage (6) Chronic obstructive pulmonary disease: Status: Chronic Assessment and plan: Continue home inhalers. Qualifiers: COPD type: emphysema Emphysema type: centrilobular Qualified Code(s): J43.2 - Centrilobular emphysema (7) Iron deficiency anemia: Assessment and plan: Today is her third day of Venofer. This will complete total of 1000 mg over 3 days. Will repeat her CBC and reticulocyte count (8) Polymyalgia rheumatica: Status: Chronic Assessment and plan: continue home dose of prednisone (9) Discharge planning issues: Status: Acute Assessment and plan: She will return home w/ resumption of home health servies including nursing and P.T. She remains DNR/DNI Subjective Subjective Patient reports: no new complaints and afebrile; denies nausea, vomiting or shortness of breath Exam Narrative Exam Narrative: Obese elderly female who is alert and oriented person place time circumstance sitting on commode Lungs with diffusely diminished breath sounds bilaterally no rhonchi or wheezing. Nonlabored breathing. Hearts regular rate and rhythm. Abdomen obese soft and nontender Lower extremities 2+ pitting edema of the pretibial surface of her legs down to her ankles. She has peripheral dependent rubor Objective Last Vital Signs Temp 36.9 C 12/23/22 11:40 Pulse 76 12/23/22 11:40 Resp 18 12/23/22 11:40 BP 116/74 12/23/22 11:40 Pulse Ox 95 12/23/22 11:40 Laboratory Results - last 24 hr 12/23/22 12/23/22 05:47 05:47 Hgb 7.4 L Hct 25.3 L Sodium 135 L Potassium 4.4 Chloride 98 Carbon Dioxide 27.3 Anion Gap 9.7 BUN 105 H* Creatinine 3.5 H Est GFR (CKD-EPI 2020) 13.23 Glucose 238 H Calcium 8.5 Time Spent with Patient Time Spent with Patient: 25-34 minutes Time was spent: preparing to see the patient(eg.review tests), ordering medications,tests, procedures and indepentently interpreting results
--- NOTE | 2022-12-23 13:44 | W.INDIABCONS ---
Date of service: 12/23/22 Time of Service: 11:00 Diabetes Inpatient Consult Reason for Visit: dm DESCRIPTION/ASSESSMENT: Met with Beth and her daughter and friend to discuss diet s/p discharge home. Beth admitted with hypoglycemia with long standing hx of DM2, CKD4 and obesity. Most recent A1C: 6.3%. Home DM meds: jardiance and 26 u glargine. Long acting to be reduced to 18 units. Labs indicate advanced renal disease, does not want dialysis. INTERVENTION: Provided written and verbal education on renal diet that limits sodium and excess fluid intake. Provided meal plans and contact number if needs help once she gets home. PLAN: Beth and soniya to follow up with jodi in outpatient setting prn. Time Spent in Nutritional Counseling and Treatment: 20
[2022-12-23 15:26] VITALS: BP 133/73; PULSE 87; RESP 17; TEMP 36.5; O2SAT 97
[2022-12-23] MEDS: rOPINIRole 0.5 MG TAB 0.25 MG PO (18:56)
[2022-12-23] MEDS: Atorvastatin 40 MG TAB 80 MG PO (18:56)
[2022-12-23] MEDS: Gabapentin 100 MG CAP 200 MG PO (18:56)
[2022-12-23 19:47] VITALS: BP 136/69; PULSE 92; RESP 17; TEMP 36.7; O2SAT 98
[2022-12-23] MEDS: Normal Saline Flush 10 ML SYR IVP (21:08)
[2022-12-23] MEDS: Enoxaparin 30 MG/0.3 ML SYR SC (21:32)
[2022-12-24 00:07] VITALS: BP 111/73; PULSE 65; RESP 16; TEMP 36.7; O2SAT 97
[2022-12-24] MEDS: Albuterol HFA 8 GM 60 PUFF INH IH ×2 (01:39→05:19)
[2022-12-24] MEDS: Mylanta Suspension 30 ML CUP PO (01:42)
[2022-12-24 03:15] VITALS: BP 110/69; PULSE 90; RESP 19; TEMP 36; O2SAT 97
[2022-12-24 07:06] VITALS: BP 110/62; PULSE 68; RESP 18; TEMP 36.4; O2SAT 95
[2022-12-24 07:10] LABS: HCT 25.7 % (36.0-46.0); HGB 7.5 g/dL (11.2-15.7); MCH 26.7 pg (27.0-33.0); MCHC 29.2 % (32.0-36.0); MCV 92 fL (80-95); MPV 10.5 fL (8.0-11.0); Platelet Count 194 10^3/uL (130-400); RBC 2.81 10^6/uL (3.93-5.22); RDW 16.7 % (11.7-14.6); RDW-SD 50.8 fL; WBC 9.69 10^3/uL (4.4-10.8)
[2022-12-24 07:26] LABS: Anion Gap 9.8 mmol/L (3-11); CO2 28.2 mmol/L (21.0-32.0); CREATININE 3.5 mg/dL (0.55-1.02); Calcium 8.3 mg/dL (8.5-10.1); Chloride 100 mmol/L (98-107); Estimated GFR 13.23 (mL/min/1.73m2); Glucose 204 mg/dL (74-106); Sodium 138 mmol/L (136-145)
[2022-12-24 07:30] LABS: BUN 109 mg/dL (7-18)
[2022-12-24] MEDS: Docusate Sodium 100 MG CAP PO (08:45)
[2022-12-24] MEDS: Normal Saline Flush 10 ML SYR IVP (08:45)
[2022-12-24] MEDS: Clopidogrel 75 MG TAB PO (08:46)
[2022-12-24] MEDS: Spironolactone 25 MG TAB 12.5 MG PO (08:47)
[2022-12-24] MEDS: predniSONE 10 MG TAB PO (08:47)
[2022-12-24] MEDS: predniSONE 5 MG TAB PO (08:47)
[2022-12-24] MEDS: Aspirin E.C. 81 MG TABEC PO (08:48)
[2022-12-24] MEDS: Cholecalciferol (Vitamin D3) 1,000 UNIT TAB 1000 UNITS PO (08:48)
[2022-12-24] MEDS: Empaglifozin 10 MG TAB PO (08:48)
[2022-12-24] MEDS: Cetirizine 10 MG TAB 5 MG PO (08:49)
[2022-12-24] MEDS: Insulin Aspart 300 UNITS/3 ML PEN SC ×6 (08:49→17:19)
[2022-12-24] MEDS: Insulin Glargine 300 UNITS/3 ML PEN 25 UNITS SC (08:53)
--- NOTE | 2022-12-24 11:24 | PT.INTREAT ---
PT Notes Visit Reasons: Acute CHF,Anemia PRECAUTIONS: Activity as tolerated, @L of O2 via nasal cannula. SUBJECTIVE: Pt in bed when approached for therapy this morning, pt very pleasant and agreeable to participating with therapy. OBJECTIVE:? BED MOBILITY/TRANSFERS? Supine to EOB: supervision? Sit-stand: SBA? Stand-sit: SBA Bed-chair: CGA Chair-bed: CGA ? GAIT? Assistive Device: 4WW ? Weight bearing: Full Assist: SBA/tube management ? Distance: 20' x2? Deviation: Slow pacing, seated rest x1, 2L O2 ? VITALS:? SaO2: 93% on 2L O2 with gait training ? THEREX: Patient was instructed in a LE strengthening program, completed in a seated position, to include: ankle pumps, heel raises, LAQ, hip flexion and hip abduction. ? ASSESSMENT:? Patient tolerated session well, pt refused further engagement after there. PLAN: Continue with global strengthening and general conditioning for improved mobility and activity tolerance. TREATMENT CODE/TIME: 30 minutes; 79732, [id number] (11:20-11:50am)
[2022-12-24 11:40] VITALS: BP 132/74; PULSE 89; RESP 18; TEMP 36.5; O2SAT 93
--- NOTE | 2022-12-24 15:45 | CMPROGNOTE_ITS ---
- If Service Date Differs Date of service: 12/24/22 Time of Service: 15:45 Care Management Progress Note S/O: Beth remains inpatient. No change to overall plan. CM continues to follow. A: Beth is a 72 year old woman admitted on 12/17/22 with CHF P: Beth will likely be discharged home with a resumption of home health services for nursing and PT. She will also have a resumption of caregiver services through [facility] and [employer]. She will follow up with her PCP and plan of care and transport with family. CM will continue to support Beth and assess for ongoing discharge needs.
--- NOTE | 2022-12-24 16:52 | PT.INTREAT ---
Date of service: 12/24/22 Time of Service: 15:40 PT Notes Visit Reasons: Acute CHF,Anemia Inpatient Physical Therapy Treatment Note [facility] Date: 12/24/2022 PRECAUTIONS: Activity as tolerated, 2L of O2 via nasal cannula. SUBJECTIVE: Pt was sitting on edge of bed visiting with family when I arrived, pt very pleasant and agreeable to participating with therapy. OBJECTIVE:? BED MOBILITY/TRANSFERS? Supine to EOB: supervision? Sit-stand: SBA? Stand-sit: SBA Bed-chair: CGA Chair-bed: CGA ? GAIT? Assistive Device: 4WW ? Weight bearing: Full Assist: SBA/tube management ? Distance: 15-20' x2? Deviation: Slow pacing, seated rest x1, 2L O2 Toileting: Once back on edge of bed post ambulation and exercises patient indicated she needed to use commode to urinate. Able to transfer bed to bedside commode with CGA and back. Did require assist with wiping post urination, but was able to pull up under garment independently. ? VITALS:? At rest SaO2: 97% on 2L, SaO2: 93% on 2L O2 with gait training ? THEREX: Instructed in a LE strengthening program while sitting in chair, consisting of: ankle pumps, heel raises, LAQ, hip flexion and hip abduction for 10 reps x 2 sets. ? ASSESSMENT:? Patient tolerated session well, good effort given throughout session. PLAN: Continue with global strengthening and general conditioning for improved mobility and activity tolerance. TREATMENT CODE/TIME: 57289, 77743 (25')
--- NOTE | 2022-12-24 18:09 | PGE_ITS ---
Date of Service Date of service: 12/24/22 Time of Service: 18:10 Assessment and Plan Assessment and plan (1) Acute on chronic HFrEF (heart failure with reduced ejection fraction): Status: Acute Assessment and plan: Repeat echo demonstrates moderately dilated left ventricle with global hypokinesis LVEF 40%. RV normal size and function. No or AI moderate MR small PFO. Mild TR. RVSP 34 mm. Small pericardial effusion. Patient started to show signs of fluid retention and her diuretic was resumed yesterday. Entresto remains on hold due to her worsening renal function. Unfortunately she is not compliant w/ avoidance of high salt items such as crackers. She has been taking the peanut butter crackers to avoid hypoglycemia. Poor urine output and wt gain. Initiated lasix drip on 12/23; will stop this evening. Emphasize low Na intake. No excessive fluid intake noted. (2) Elevated troponin I level: Status: Acute Assessment and plan: Given that she has no regional wall motion abnormality I suspect this is likely due to demand ischemia. As per Dr. Meneses's recommendation she would not pursue further ischemic work-up. (3) Ventricular tachycardia: Status: Chronic Assessment and plan: Run of nonsustained V. tach at a rate of 150 bpm for 8 beats asymptomatic on 12/20. None reported in the past 24hr. Had considered adding a beta-cyndi but patient was intolerant to metoprolol in the past and refuses to take a beta- cyndi. Telemetry d/c'd for pts comfort. (4) CKD (chronic kidney disease) stage 4, GFR 15-29 ml/min: Status: Acute Assessment and plan: Stage IV chronic kidney disease. Creatinine is 3.0 > 3.2 > 3.5 > 3.5 Questionably her new baseline but could see improvement if she is more compliant with a HF diet and offloads the heart. Also has wt gain; diuretics were held for a period of this previously. Lasix drip initiated and will be stopped this evening. Will restart Torsemide in AM at an increased dose of 40mg daily. (5) Type 2 diabetes mellitus with retinopathy of both eyes, with long-term current use of insulin: Status: Chronic Assessment and plan: Glucose readings have continued to increase so will further increase long acting insuling. Increase carb coverage AC insulin to 2 units per 10 g carbs. Continue sliding scale insulin sensitive level coverage for meals. Continue monitoring blood sugars before meals and at bedtime. However discontinue any bedtime coverage (6) Chronic obstructive pulmonary disease: Status: Chronic Assessment and plan: Continue home inhalers. Stable Qualifiers: COPD type: emphysema Emphysema type: centrilobular Qualified Code(s): J43.2 - Centrilobular emphysema (7) Iron deficiency anemia: Assessment and plan: Completed a total of 1000 mg IV iron over 3 days. Hgb in mid 7's Desired effect on reticulocyte count noted; elevated at 3.3. (8) Polymyalgia rheumatica: Status: Chronic Assessment and plan: continue home dose of prednisone (9) Discharge planning issues: Status: Acute Assessment and plan: She will return home w/ resumption of home health servies including nursing and P.T. She remains DNR/DNI Subjective Subjective Patient reports: no new complaints, feels better and afebrile; denies nausea or vomiting Exam Narrative Exam Narrative: Obese elderly female who is alert and oriented person place time circumstance sitting on edge of bed. Cooperative. Lungs with diffusely diminished breath sounds bilaterally no rhonchi or wheez ing. Nonlabored breathing. Hearts regular rate and rhythm. Abdomen obese soft and nontender Lower extremities 1-2+ pitting edema of the pretibial surface of her legs down to her ankles. She has peripheral dependent rubor Objective Last Vital Signs Temp 36.5 C 12/24/22 11:40 Pulse 89 12/24/22 11:40 Resp 18 12/24/22 11:40 BP 132/74 12/24/22 11:40 Pulse Ox 93 12/24/22 11:40 Laboratory Results - last 24 hr 12/24/22 12/24/22 06:40 06:40 WBC 9.69 RBC 2.81 L Hgb 7.5 L Hct 25.7 L MCV 92 MCH 26.7 L MCHC 29.2 L RDW 16.7 H Plt Count 194 MPV 10.5 Sodium 138 Potassium 4.0 Chloride 100 Carbon Dioxide 28.2 Anion Gap 9.8 BUN 109 H* Creatinine 3.5 H Est GFR (CKD-EPI 2020) 13.23 Glucose 204 H Calcium 8.3 L Time Spent with Patient Time Spent with Patient: 25-34 minutes Time was spent: preparing to see the patient(eg.review tests), ordering medications,tests, procedures, indepentently interpreting results and counseling the patient
[2022-12-24 19:23] VITALS: BP 115/67; PULSE 83; RESP 18; TEMP 36.7; O2SAT 96
[2022-12-24] MEDS: rOPINIRole 0.5 MG TAB 0.25 MG PO (19:57)
[2022-12-24] MEDS: Gabapentin 100 MG CAP 200 MG PO (19:58)
[2022-12-24] MEDS: Atorvastatin 40 MG TAB 80 MG PO (19:58)
[2022-12-24] MEDS: Enoxaparin 30 MG/0.3 ML SYR SC (21:27)
[2022-12-24 23:54] VITALS: BP 115/65; PULSE 67; RESP 20; TEMP 36.3; O2SAT 97
[2022-12-25] MEDS: Albuterol HFA 8 GM 60 PUFF INH IH ×3 (06:41→21:28)
[2022-12-25 07:07] LABS: Anion Gap 9.2 mmol/L (3-11); CO2 29.8 mmol/L (21.0-32.0); CREATININE 3.3 mg/dL (0.55-1.02); Calcium 8.3 mg/dL (8.5-10.1); Chloride 101 mmol/L (98-107); Glucose 191 mg/dL (74-106); Potassium 4.1 mmol/L (3.5-5.1); Sodium 140 mmol/L (136-145)
[2022-12-25 07:13] LABS: BUN 110 mg/dL (7-18)
[2022-12-25 07:37] VITALS: BP 114/72; PULSE 97; RESP 16; TEMP 36.4; O2SAT 97
[2022-12-25] MEDS: Acetaminophen 325 MG TAB PO (07:47)
[2022-12-25] MEDS: Spironolactone 25 MG TAB 12.5 MG PO (07:47)
[2022-12-25] MEDS: predniSONE 10 MG TAB PO (07:48)
[2022-12-25] MEDS: Aspirin E.C. 81 MG TABEC PO (07:48)
[2022-12-25] MEDS: Clopidogrel 75 MG TAB PO (07:48)
[2022-12-25] MEDS: Docusate Sodium 100 MG CAP PO (07:49)
[2022-12-25] MEDS: Empaglifozin 10 MG TAB PO (07:49)
[2022-12-25] MEDS: Torsemide 20 MG TAB PO (07:49)
[2022-12-25] MEDS: Cetirizine 10 MG TAB 5 MG PO (07:50)
[2022-12-25] MEDS: Pantoprazole 40 MG TABCR PO (07:50)
[2022-12-25] MEDS: Cholecalciferol (Vitamin D3) 1,000 UNIT TAB 1000 UNITS PO (07:51)
[2022-12-25] MEDS: predniSONE 5 MG TAB PO (07:51)
[2022-12-25] MEDS: rOPINIRole 0.5 MG TAB 0.25 MG PO ×2 (07:52→21:27)
[2022-12-25] MEDS: Insulin Glargine 300 UNITS/3 ML PEN 30 UNITS SC (07:56)
[2022-12-25] MEDS: Insulin Aspart 300 UNITS/3 ML PEN SC ×5 (08:00→17:08)
--- NOTE | 2022-12-25 09:26 | PDOC.CMPRO ---
- If Service Date Differs Date of service: 12/25/22 Time of Service: 09:26 Care Management Progress Note S/O: Beth was sitting up on the side of her bed visiting with family when CM met with her. She has been showing improvement for the past couple of days and her discharge home is planned for tomorrow. Her daughter Lida will transport her home via private vehicle. Beth had a problem with her Inogen machine at home and her daughter from [place] was able to get her a new one; that issue has been resolved. Beth will likely need follow up appointments with Dr. Meneses, Dr. Hugo and her PCP, Dr. Andre. She will also have a resumption of home health services through [facility] fpr nursing and PT with the addition of OT and [employer]. Beth has contacted [facility], her caregiver/homemaker service to inform them she will need a resumption of services as of tomorrow. A: Beth is a 72 year old woman admitted on 12/17/22 with CHF P: Beth will likely be discharged home with a resumption of home health services for nursing and PT with new orders for OT and [employer]. She will also have a resumption of caregiver services through [facility] and [facility]. She will follow up with her PCP and plan of care and transport with family. CM will continue to support Beth and assess for ongoing discharge needs.
--- NOTE | 2022-12-25 10:47 | PT.INTREAT ---
Date of service: 12/23/22 Time of Service: 14:22 PT Notes Visit Reasons: Acute CHF,Anemia Inpatient Physical Therapy Treatment Note [facility] Date: 12/23/2022 PRECAUTIONS: Activity as tolerated, fall SUBJECTIVE: Beth is pleasant and agreeable to participating in PT. She reports that she feels swollen and heavy, and that she is not feeling much better. OBJECTIVE:? Pain: No c/o pain ? BED MOBILITY/TRANSFERS? Supine-sit: I? Sit-stand: S? Stand-sit: S ? GAIT? Assistive Device: FWW ? Weight bearing: Full Assist: SBA ? Distance: 15' x5? Deviation: Slow pacing, seated rests throughout for energy conservation, SOB, on 2L O2 THEREX: Patient declined ? ASSESSMENT:? Patient tolerated session with c/o increased SOB with gait training. She was able to tolerate a progression in gait distance with use of energy conservation techniques to include seated rests throughout. PLAN: Continue with global strengthening and general conditioning for improved mobility and activity tolerance. TREATMENT CODE/TIME: Session 1: Refused x2 Session 2: 26 minutes; [id number] x2 (14:22)
[2022-12-25 11:24] VITALS: BP 129/77; PULSE 82; RESP 18; TEMP 36.6; O2SAT 93
--- NOTE | 2022-12-25 14:14 | PT.INNT ---
Date of service: 12/25/22 Time of Service: 14:14 PT Notes Visit Reasons: Acute CHF,Anemia 12/25/2022 Patient refused x1/not available x1 in a.m. and refused in p.m. to participate in PT. She states that she is not feeling well today, that she feels spent. Will attempt to resume PT services tomorrow morning.
--- NOTE | 2022-12-25 16:23 | PGE_ITS ---
Date of Service Date of service: 12/25/22 Time of Service: 16:23 Assessment and Plan Assessment and plan (1) Acute on chronic HFrEF (heart failure with reduced ejection fraction): Status: Acute Assessment and plan: Repeat echo demonstrates moderately dilated left ventricle with global hypokinesis LVEF 40%. RV normal size and function. No or AI moderate MR small PFO. Mild TR. RVSP 34 mm. Small pericardial effusion. Patient started to show signs of fluid retention and her diuretic was resumed after being held momentarily. Entresto remains on hold due to her worsening renal function. Conts on Jardiance. Unfortunately she is not compliant w/ avoidance of high salt items such as crackers. She has been taking the peanut butter crackers to avoid hypoglycemia. S/P lasix drip, now back on oral Torsemide. Wt down 1kg only. Elevation of BLEs stressed. Low Na diet adherence when home stressed. (2) Elevated troponin I level: Status: Acute Assessment and plan: Given that she has no regional wall motion abnormality I suspect this is likely due to demand ischemia. As per Dr. Meneses's recommendation she would not pursue further ischemic work-up. (3) Ventricular tachycardia: Status: Chronic Assessment and plan: Run of nonsustained V. tach at a rate of 150 bpm for 8 beats asymptomatic on 12/20. None reported in the past 24hr. Had considered adding a beta-cyndi but patient was intolerant to metoprolol in the past and refuses to take a beta- cyndi. Telemetry d/c'd for pts comfort. (4) CKD (chronic kidney disease) stage 4, GFR 15-29 ml/min: Status: Acute Assessment and plan: Stage IV chronic kidney disease. Creatinine is 3.0 > 3.2 > 3.5 > 3.5>3.3 Questionably her new baseline but could see improvement if she is more compliant with a HF diet and offloads the heart. Also has wt gain; diuretics were held for a period of this previously. Lasix drip initiated but now stopped and back on torsemide; dosing of 40mg daily. (5) Type 2 diabetes mellitus with retinopathy of both eyes, with long-term current use of insulin: Status: Chronic Assessment and plan: Glucose readings have continued to increase so will further increase long acting insuling. Increase carb coverage AC insulin to 2 units per 10 g carbs. Continue sliding scale insulin sensitive level coverage for meals. Continue monitoring blood sugars before meals and at bedtime. However discontinue any bedtime coverage (6) Chronic obstructive pulmonary disease: Status: Chronic Assessment and plan: Continue home inhalers. Stable Qualifiers: COPD type: emphysema Emphysema type: centrilobular Qualified Code(s): J43.2 - Centrilobular emphysema (7) Iron deficiency anemia: Assessment and plan: Completed a total of 1000 mg IV iron over 3 days. Hgb in mid 7's Desired effect on reticulocyte count noted; elevated at 3.3. (8) Polymyalgia rheumatica: Status: Chronic Assessment and plan: continue home dose of prednisone (9) Discharge planning issues: Status: Acute Assessment and plan: She will return home w/ resumption of home health servies including nursing and P.T. She remains DNR/DNI She will have 2 daughters staying with her for a short duration. Subjective Subjective Patient reports: feels better, tolerating a regular diet, bowel movement and afebrile; denies nausea or vomiting Interval history since last seen: States she is tired; not sleeping well. Exam Narrative Exam Narrative: Obese elderly female who is alert and oriented person place time circumstance sitting on edge of bed. Cooperative. Lungs with diffusely diminished breath sounds bilaterally no rhonchi or wheezing. Nonlabored breathing. Hearts regular rate and rhythm. Abdomen obese soft and nontender Lower extremities 1+ pitting edema of the pretibial surface of her legs down to her ankles. Dependent rubor of legs is much improved. Objective Last Vital Signs Temp 36.6 C 12/25/22 11:24 Pulse 82 12/25/22 11:24 Resp 18 12/25/22 11:24 BP 129/77 12/25/22 11:24 Pulse Ox 93 12/25/22 11:24 Laboratory Results - last 24 hr 12/25/22 06:00 Sodium 140 Potassium 4.1 Chloride 101 Carbon Dioxide 29.8 Anion Gap 9.2 BUN 110 H* Creatinine 3.3 H Est GFR (CKD-EPI 2020) 14.20 Glucose 191 H Calcium 8.3 L Time Spent with Patient Time Spent with Patient: 25-34 minutes Time was spent: preparing to see the patient(eg.review tests), ordering medications,tests, procedures, indepentently interpreting results and counseling the patient
[2022-12-25 19:35] VITALS: BP 109/71; PULSE 83; RESP 18; TEMP 36.1; O2SAT 96
[2022-12-25] MEDS: Atorvastatin 40 MG TAB 80 MG PO (21:27)
[2022-12-25] MEDS: Gabapentin 100 MG CAP 200 MG PO (21:27)
[2022-12-25] MEDS: Enoxaparin 30 MG/0.3 ML SYR SC (21:27)
[2022-12-25 23:35] VITALS: BP 118/77; PULSE 82; RESP 18; TEMP 36.1; O2SAT 92
[2022-12-26 03:00] VITALS: BP 123/76; PULSE 85; RESP 18; TEMP 36.2; O2SAT 93
[2022-12-26 07:00] LABS: Platelet Count 170 10^3/uL (130-400)
[2022-12-26 07:10] VITALS: BP 128/74; PULSE 89; RESP 19; TEMP 35.4; O2SAT 92
--- NOTE | 2022-12-26 07:22 | W.PM.DS.N ---
Date of service: 12/26/22 Time of Service: 07:23 DS: Diagnosis Discharge Diagnosis (1) Acute on chronic HFrEF (heart failure with reduced ejection fraction): Status: Acute Asessment and Plan: Diureses with IV lasix initiated on admission. Cardiology consulted. Echocardiogram showed an est EF of 40-45% with global hypokinesis. SMall circumferential pericardial effusion. Her spironolactone, Entresto and Jardiance were continued. She did develope hypotension on 12/19 so her diuretics and Entresto were held. Her BP recovered. She did develop more peripheral edema and wt gain. Lasix restarted, including a day on a lasix drip. She diuresed and her peripheral edema improved. She had not become hypoxic or dyspneic while off diuretics and Entresto. She will d/c back on Torsemide 40mg daily (was on 20mg BID). Discussed low Na intake with patient and one of her daughters. She should also limite her fluid intake to 5067-0539 ml daily. (2) Elevated troponin I level: Status: Acute Asessment and Plan: Deman ischemia. (3) Ventricular tachycardia: Status: Chronic Asessment and Plan: Run of nonsustained V. tach at a rate of 150 bpm for 8 beats asymptomatic. (4) CKD (chronic kidney disease) stage 4, GFR 15-29 ml/min: Status: Acute Asessment and Plan: Her creatinine had improved into the 2.5-3.0 range after it had been in the mid 3's previously. It has now been more persistently in the mid 3's. With good managment of her fluids and Na intake, this could certainly improve. BMP (and CBC) req. given to be drawn by home health nurse on Thursday or soon thereafter. (5) Type 2 diabetes mellitus with retinopathy of both eyes, with long-term current use of insulin: Status: Chronic Asessment and Plan: Adjustments made to her basal/bolus insulin during this hospitalization. There will likely have to be re-adjustments at home given her dietary intake is likely to be different and less carb controlled. She has been doing well with diabetic control; A1c 6.3 at this admission. (6) Chronic obstructive pulmonary disease: Status: Chronic Asessment and Plan: Cont her usual home regimen of inhalers. (7) Iron deficiency anemia: Asessment and Plan: She received 1 gram total of IV Venofer. CBC the Thursday following d/c or soon thereafter; home health nurse to draw. (8) Polymyalgia rheumatica: Status: Chronic Asessment and Plan: Cont prednisone. Discharge Plan Disposition Patient Disposition: Home W/Home Health Services Condition: Improving Discharge Details Reason For Visit: Acute CHF,Anemia Admit Date/Time: 12/17/22 18:11 Admit Provider: Padilla Tobar Attending Provider: Padilla Tobar [facility]: 72 yr old female w/ PMH of oxygen dependent? COPD (3 LPM), HFREF (LVEF 40%, global LV hypokinesis on latest echo 10/15/22), CKD stage 4 (baseline creatinine 2.5 to 2.8), type 2 DM on insulin who was hospitalized @ [facility] 10/12-10/15/22 for COVID-19 infection, and type 2 NSTEMI and HFREF. She was discharged on metoprolol XL, DAPT (ASA, Plavix) after 48 hr of heparin, Entresto and Jardiance , torsemide and spironolactone were resumed but her glipizide and Lantus were stopped d/t hypoglycemia. She completed treatment w/ Remdesivir and steroids during that admission.? Her discharge creatinne was 2.7 however, she ended up in the ED on 10/24 w/ dehydration d//t diarrhea, and hypotension.? She was rehydrated in the ED and released. At the time her creatinine was 3.8 but came down to 3.2 by 10/28. Upon follow up w/ her PCP on 11/14 her spironolactone was put on hold and her metoprolol was stopped d/t hypotension. She now presents w/ 3 weeks of increasing dyspnea w/out chest pain or pressure and w/out fever, chills, or increased sputum production. She has been experiencing orthopnea and can not walk more than a few feet from the bed to the chair w/out dyspnea. She saw her PCP today who found her to have increased lung rales but no pedal edema and ordered CXR and labs (CBC, CMP, BNP). CXR demonstrated diffuse interstitial changes and bibasilar atelectasis vs infiltrates and labs were remarkable for stable BUN and creatinine 64 and 2.6, elevated BNP >35,000 (prior levels have been 10,000 to 12,000) and she was referred to the ED for evaluation. Dr. Ashley evaluated her and included POCUS cardiac and lung exam. See his notes for details. He concluded she was in acute CHF exacerbation and gave her lasix 40 mg IVP. She is now admitted for treatment of her CHF. However her labs also included CBC that demonstrated worsening anemia w/ Hb of 7.8 gm but no leukocytosis (WBC 8900). She denies any melena nor any hematochezia and no abdominal pains. 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 Home Meds and New Rx's Prescriptions: New insulin glargine [Lantus Solostar U-100 Insulin] 100 unit/mL (3 mL) Insulin Pen 35 unit subcut QAM Qty: 0 0RF ropinirole 0.5 mg Tablet 0.25 mg PO BID Qty: 60 0RF Continued albuterol sulfate 90 mcg/actuation HFA aerosol inhaler 2 puff inhalation Q6H PRN (Reason: shortness of breath or wheezing) Qty: 18 4RF cetirizine 10 mg tablet 10 mg PO DAILY Qty: 90 3RF aspirin 81 mg tablet,delayed release (DR/EC) 81 mg PO DAILY Qty: 90 3RF atorvastatin 80 mg tablet 80 mg PO QPM Qty: 90 3RF fluticasone propionate [Flonase Allergy Relief] 50 mcg/actuation spray,suspension 2 spray intranasal DAILY PRN (Reason: allergy symptoms) Qty: 16 4RF Rx Instructions: administer into each nostril insulin aspart U-100 100 unit/mL (3 mL) insulin pen 1 sliding scale dose subcut TID Qty: 9 3RF Rx Instructions: Sliding Scale Insulin Instructions 60-124 = 0 126-150 = 4 151-200 = 6 201-300 = 8 301-350 = 10 351-400 = 12 prednisone 10 mg tablet 10 mg PO DAILY prednisone 2.5 mg tablet 5 mg PO DAILY Bevespi Aerosphere 9-4.8 mcg HFA aerosol inhaler 2 puff inhalation BID Qty: 10.7 4RF Hold Instructions: Has not started and does not wish to for now Rx Instructions: 2 puffs twice a day Entresto 24-26 mg tablet 1 tab PO BID Qty: 90 4RF docusate sodium 100 mg capsule 100 mg PO DAILY spironolactone 25 mg tablet 25 mg PO DAILY Qty: 90 3RF Hold Instructions: PALAK clopidogrel 75 mg tablet 75 mg PO DAILY Qty: 90 3RF cholecalciferol (vitamin D3) [Vitamin D3] 25 mcg (1,000 unit) Capsule 25 mcg PO DAILY Changed torsemide 20 mg tablet 40 mg PO DAILY Qty: 180 3RF Discontinued insulin glargine [Lantus Solostar U-100 Insulin] 100 unit/mL (3 mL) insulin pen 26 unit subcut QAM Qty: 9 3RF No Action (DME) pen needle, diabetic [BD Ultra-Fine Short Pen Needle] 31 gauge x 5/16 needle See Rx Instructions .MEDSUPPLY Qty: 360 3RF Rx Instructions: Use with pens daily glucose [Dex4 Glucose Quick Dissolve] 4 gram tablet,chewable 16 g PO ONCE PRN (Reason: hypoglycemia) Qty: 60 4RF Rx Instructions: 4 tablets if blood sugar less than 70. May repeat once after 15 minutes if blood sugar still less than 70 then follow with a snack or meal (DME) FreeStyle Consuelo 14 Day [place] Misc See Rx Instructions .MEDSUPPLY Qty: 1 4RF Rx Instructions: Continuous glucose monitor (DME) FreeStyle Consuelo 14 Day Sensor Kit See Rx Instructions .MEDSUPPLY Qty: 6 4RF Rx Instructions: Continuous glucose monitor (DME) Aerochamber MV Spacer See Rx Instructions .ROUTE .MEDSUPPLY Qty: 2 4RF Rx Instructions: Use with inhalers (DME) blood-glucose meter [OneTouch Ultra2 Meter] Kit See Rx Instructions .MEDSUPPLY Qty: 1 2RF Rx Instructions: Check blood sugar twice a day empagliflozin 10 mg tablet 10 mg PO DAILY Qty: 90 3RF (DME) OneTouch Ultra Test Strip See Rx Instructions .MEDSUPPLY Qty: 500 3RF Rx Instructions: Check blood sugar five times a day (DME) lancets [OneTouch UltraSoft Lancets] Misc See Rx Instructions .ROUTE .MEDSUPPLY Qty: 500 3RF Rx Instructions: Check blood sugar five times a day gabapentin 100 mg capsule 100 - 200 mg PO QHS Qty: 30 0RF Rx Instructions: Take 2 capsules daily for one week then 1 capsule daily for 1 week then stop Discharge Instructions Instructions: Heart Failure (DC), Anemia (DC) Stand Alone Forms: Nursing Discharge Form Referrals: Katherine Andre NP [Primary Care Provider] - 01/01/23 12:40 pm Activity:: Activity as Tolerated Equipment/Supplies:: No Equipment Needed Diet:: Carb Counting Discharge Orders Discharge Orders: Discharge Order (Routine); Ordered 12/26/22 Ordered By: Cristian Guardado Other Ambulatory Orders: Basic Metabolic Panel (Routine) Timeframe: 3 Days Location: None Selected Ordered By: Cristian Guardado Complete Blood Count w/Diff (Routine) Timeframe: 3 Days Location: None Selected Ordered By: Cristian Guardado Discharge Data Discharge Date/Time-TO BE ENTERED AT DEPARTURE: 12/26/22 09:45 DS: Summary Time Spent with Patient providing and/or coordinating discharge services: Greater than 30 minutes Status at Discharge Functional status at discharge: uses cane/walker Overall status at discharge: patient is progressing back to baseline Mental Status: mental status grossly normal Speech and Movement: speech and movement normal Mood: congruent mood Affect: normal affect Exam Narrative Exam Narrative: Obese elderly female who is alert and oriented person place time circumstance . Overall feeling better. Not sleeping well. Lungs with diffusely diminished breath sounds bilaterally no rhonchi or wheezing. Nonlabored breathing. Hearts regular rate and rhythm. Abdomen obese soft and nontender Lower extremities 1+ pitting edema of the pretibial surface of her legs down to her ankles. Dependent rubor of legs is much improved. Psych Mental Status: mental status grossly normal Speech and Movement: speech and movement normal Mood: congruent mood Affect: normal affect DS: Data Vitals/I&O Vitals and I&O: Vital Signs Temperature 36.2 C L 12/26/22 03:00 Temperature Source Tympanic 12/26/22 03:00 Pulse 85 12/26/22 03:00 Pulse Rhythm Regular 12/25/22 22:21 Pulse 97 H 12/17/22 17:31 Respiratory Rate 18 12/26/22 03:00 Respiratory Effort Normal, Non-Labored 12/25/22 22:21 Respiratory Depth Normal 12/25/22 22:21 Respiratory Pattern Normal 12/25/22 22:21 Blood Pressure 123/76 12/26/22 03:00 Blood Pressure Mean 66 12/17/22 18:06 Blood Pressure Position Sitting 12/17/22 14:13 Pulse Oximetry 93 12/26/22 03:00 Oxygen Delivery Method Nasal Cannula 12/26/22 03:00 Oxygen Flow Rate 2 12/26/22 03:00 Pain Level 0 12/25/22 11:24 Comment Pt. denies pain at this time. 12/21/22 11:16 Intake & Output 12/25/22 12/25/22 12/26/22 11:59 23:59 11:59 Intake Total 680 / 880 200 / 880 Output Total 300 / 1800 1500 / 1800 Balance 380 / -920 -1300 / -920 Weight 86.8 kg 86.7 kg Intake: IV 100 / 100 Oral 580 / 780 200 / 780 Output: Urine 300 / 1800 1500 / 1800 Other: Urine Color Yellow Yellow Urine Appearance Clear Cloudy Urine Odor Normal Normal Comment mixed w stool Stool Size Small Stool Characteristics Liquid Voiding Methods Bedside Commode Bedside Commode Data Completed and Pending Labs on day of discharge: Labs from last 24 hours 12/26/22 06:20 Plt Count 170 PFSH All Active Problems Advanced care planning/counseling discussion (Acute) Palliative care encounter (Acute) Discharge planning issues (Acute) Ventricular tachycardia (Chronic) Elevated troponin I level (Acute) Acute on chronic HFrEF (heart failure with reduced ejection fraction) (Acute) Acute kidney injury superimposed on chronic kidney disease (Acute) Chronic respiratory failure with hypoxia (Acute) CKD (chronic kidney disease) stage 4, GFR 15-29 ml/min (Acute) Non-ST elevation PA (NSTEMI) (Acute ~10/2022) Type 2 diabetes mellitus with retinopathy of both eyes, with long-term current use of insulin (Chronic) CVA (cerebral vascular accident) (Acute ~12/2021) Heart failure with reduced ejection fraction (Chronic) Chronic obstructive pulmonary disease (Chronic) O2 dependent on 3L NC Polymyalgia rheumatica (Chronic) Carotid atherosclerosis (Chronic) Essential hypertension (Chronic) GERD (gastroesophageal reflux disease) (Chronic) Pulmonary nodule (Chronic) Nicotine dependence, cigarettes, uncomplicated (Chronic) Annual LDCT Osteoarthritis of hips, bilateral (Chronic) Diabetic nephropathy (Chronic) Ventral hernia (Chronic) Generalized anxiety disorder (Chronic) Benign positional vertigo (Chronic) 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 Father Diabetes Daughter No problems noted. Daughter No problems noted. Daughter No problems noted. Daughter No problems noted. 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 4 daughters Time Spent with Patient Time Spent with Patient: 45-69 minutes Time was spent: preparing to see the patient(eg.review tests), ordering medications,tests, procedures, indepentently interpreting results and counseling the patient
[2022-12-26 07:53] LABS: Anion Gap 10.8 mmol/L (3-11); CO2 27.2 mmol/L (21.0-32.0); CREATININE 3.3 mg/dL (0.55-1.02); Calcium 8.4 mg/dL (8.5-10.1); Chloride 102 mmol/L (98-107); Glucose 116 mg/dL (74-106); Potassium 3.6 mmol/L (3.5-5.1); Sodium 140 mmol/L (136-145)
[2022-12-26 07:55] LABS: BUN 107 mg/dL (7-18)
[2022-12-26] MEDS: Docusate Sodium 100 MG CAP PO (08:16)
[2022-12-26] MEDS: Cetirizine 10 MG TAB 5 MG PO (08:16)
[2022-12-26] MEDS: predniSONE 10 MG TAB PO (08:16)
[2022-12-26] MEDS: Spironolactone 25 MG TAB 12.5 MG PO (08:16)
[2022-12-26] MEDS: Cholecalciferol (Vitamin D3) 1,000 UNIT TAB 1000 UNITS PO (08:16)
[2022-12-26] MEDS: Torsemide 20 MG TAB PO (08:16)
[2022-12-26] MEDS: Clopidogrel 75 MG TAB PO (08:16)
[2022-12-26] MEDS: Empaglifozin 10 MG TAB PO (08:16)
[2022-12-26] MEDS: rOPINIRole 0.5 MG TAB 0.25 MG PO (08:17)
[2022-12-26] MEDS: predniSONE 5 MG TAB PO (08:17)
[2022-12-26] MEDS: Aspirin E.C. 81 MG TABEC PO (08:17)
[2022-12-26] MEDS: Insulin Glargine 300 UNITS/3 ML PEN 35 UNITS SC (08:23)
[2022-12-26] MEDS: Albuterol HFA 8 GM 60 PUFF INH IH (08:48)
--- NOTE | 2022-12-26 10:05 | PDOC.CMDIS ---
- If Service Date Differs Date of service: 12/26/22 Time of Service: 10:05 LACE Index Scoring Tool - Questions: Length of Stay (in days): 7 - 13 Acuity (Admit via E.D.?): Yes Comorbidities: Previous M.I., Cerebrovascular Disease, Diabetes w/o Complication, Congestive Heart Failure, Chronic Pulmonary Disease, Liver or Renal Disease E.D. 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 She will follow up with her PCP and plan of care and transport with family. Patient/Family Education Needs: Review of discharge instructions, limitations, follow up plan, medications, discuss Ask Me Three Services Needed at Discharge: Home Health Care Services
== END 2022-12-26 09:45 | disposition home health service (06) | DRG 291 ==
LOC: ER 19:31 → MS 20:11
PROVIDERS: Family Medicine; Admitting Provider Internal Medicine; Emergency Provider Emergency Medicine; PCP Nurse Practitioner Family; Visit Provider Internal Medicine
DX: I13.0 Hypertensive heart and chronic kidney disease with heart failure and stage 1 through stage 4 chronic kidney disease, or unspecified chronic kidney disease (principal); I50.23 Acute on chronic systolic (congestive) heart failure; N17.9 Acute kidney failure, unspecified; N18.4 Chronic kidney disease, stage 4 (severe); J96.11 Chronic respiratory failure with hypoxia; Q21.12 Patent foramen ovale; I24.8 Other forms of acute ischemic heart disease; I47.20 Ventricular tachycardia, unspecified; E11.22 Type 2 diabetes mellitus with diabetic chronic kidney disease; R74.8 Abnormal levels of other serum enzymes; M35.3 Polymyalgia rheumatica; I65.29 Occlusion and stenosis of unspecified carotid artery; K21.9 Gastro-esophageal reflux disease without esophagitis; R91.8 Other nonspecific abnormal finding of lung field; F17.210 Nicotine dependence, cigarettes, uncomplicated; F41.1 Generalized anxiety disorder; D50.9 Iron deficiency anemia, unspecified; M16.0 Bilateral primary osteoarthritis of hip; E11.319 Type 2 diabetes mellitus with unspecified diabetic retinopathy without macular edema; K43.9 Ventral hernia without obstruction or gangrene; I34.0 Nonrheumatic mitral (valve) insufficiency; J43.2 Centrilobular emphysema; Z99.81 Dependence on supplemental oxygen; I25.2 Old myocardial infarction; Z79.4 Long term (current) use of insulin; Z86.73 Personal history of transient ischemic attack (TIA), and cerebral infarction without residual deficits; E11.649 Type 2 diabetes mellitus with hypoglycemia without coma; I95.9 Hypotension, unspecified; E66.9 Obesity, unspecified; Z68.30 Body mass index [BMI] 30.0-30.9, adult; Z66 Do not resuscitate
CPT/HCPCS: 36415; 80048; 80053; 85027; 87040; 87635; 93005; 93306; 93308; 94640; 96365; 96366; 96367; 96368; 97110; 97162; 97530; 99222; 99291; 71046; 81003; 81015; 82270; 82728; 83036; 83540; 83550; 83605; 83735; 83880; 84443; 84484; 85014; 85018; 85025; 85045; 85049; 85379; 87086; 93010; 94664; 99232; 99233; 99239; J1650; J1756; J1940; J7512

== ENCOUNTER → 2022-12-18 07:36 | Outpatient (BNVA) | payer MEDICARE, MEDICAID, SELFPAY | PROVIDERS: PCP Nurse Practitioner Family; Referring Provider Nurse Practitioner Family; Visit Provider Internal Medicine Cardiovascular Disease ==

== ENCOUNTER 2022-12-29 12:34 | Outpatient (REF) | payer MEDICARE, MEDICAID, SELFPAY ==
[2022-12-29 13:33] LABS: Abs Immature Grans 0.03 10^3/uL (0.0-0.06); Absolute Basophil Count 0.01 10^3/uL (0.0-0.2); Absolute Eosinophil Count 0.02 10^3/uL (0.0-0.7); Absolute Neutrophil Count 6.62 10^3/uL (1.2-6.7); Basophils % 0.1; Eosinophils % 0.3; HCT 28.9 % (36.0-46.0); HGB 8.2 g/dL (11.2-15.7); Immature Grans % 0.4; Lymphocytes % 4.2; MCHC 28.4 % (32.0-36.0); MCV 95 fL (80-95); MPV 11.4 fL (8.0-11.0); Monocytes % 2.8; Neutrophils % 92.2; Platelet Count 150 10^3/uL (130-400); RBC 3.04 10^6/uL (3.93-5.22); RDW 19.8 % (11.7-14.6); RDW-SD 65.7 fL; WBC 7.18 10^3/uL (4.4-10.8)
[2022-12-29 13:50] LABS: Anion Gap 7.6 mmol/L (3-11); CO2 31.4 mmol/L (21.0-32.0); CREATININE 2.9 mg/dL (0.55-1.02); Calcium 8.2 mg/dL (8.5-10.1); Chloride 105 mmol/L (98-107); Estimated GFR 16.58 (mL/min/1.73m2); Potassium 4.4 mmol/L (3.5-5.1); Sodium 144 mmol/L (136-145)
[2022-12-29 14:18] LABS: Glucose 38 mg/dL (74-106)
[2022-12-29 14:19] LABS: BUN 86 mg/dL (7-18)
== END 2022-12-29 12:35 | disposition home or self-care (01) ==
LOC: LBN 12:34
PROVIDERS: PCP Nurse Practitioner Family; Visit Provider Nurse Practitioner Family
DX: I50.9 Heart failure, unspecified (principal)
CPT/HCPCS: 80048; 85025

== ENCOUNTER 2022-12-30 18:15 | Emergency (ER) | payer MEDICARE, MEDICAID, SELFPAY ==
[2022-12-30] VITALS (23 sets, daily range): BP systolic 84–125; BP diastolic 42–77; PULSE 83–104; RESP 14–39; TEMP 36.1; O2SAT 91–100
--- NOTE | 2022-12-30 18:30 | RT.EKG_ITS ---
APPROVED REPORT Exam: Resting ECG Reason for Exam: Congestive heart failure Patient Location: E HR:94 bpm ECG Measurements Heart Rate 94 AXIS MN 144 P 48 QRSd 94 QRS 57 QT 430 T 198 QTc 540 Conclusion Sinus rhythm...normal P axis, V-rate 60- 99 Ventricular bigeminy...bigeminy string>4 w/ V complexes Probable left atrial enlargement...P >50mS, <-0.10mV V1 Probable anterior infarct, age indeterminate...Q >35mS, T neg, V2-V5 Prolonged QT interval...QTc >500mS Narrow complex normal sinus rhythm at a rate of 94. Normal axis. Intervals within normal limits. P rolonged QTc worse compared to prior. Prior dated earlier this month. No acute injury pattern.
--- NOTE | 2022-12-30 20:15 | DI.RAD_ITS ---
Exam(s) XR FOOT RT COMPLETE EXAM: XR FOOT RT COMPLETE CLINICAL HISTORY: bruise, swelling, over dorsum,eval for fx vs gas. TECHNIQUE: 2D digital imaging was performed of the right foot. Three images were obtained. AP, obl ique and lateral views were obtained. COMPARISON: No exams were available for comparison FINDINGS: BONES: There is a fracture involving the mid at proximal metadiaphyseal region of the proximal phalan x of the 5th toe. The acuity of the fracture is indeterminate. No callus formation is seen about th e fracture. No other fracture or dislocation is seen. No bony destructive lesion is seen. JOINTS: No dislocation present. SOFT TISSUE: There is diffuse soft tissue swelling of the foot particularly on the dorsum. There is a 8 to 9 mm round density in the soft tissues on the dorsal and lateral aspect of the foot. IMPRESSION: 1. Fracture involving the proximal phalanx of the 5th toe. This is of indeterminate acuity. No call us formation is seen about the fracture. Please correlate with patient's site of pain. 2. 8-9 mm round density in the soft tissues on the dorsal lateral aspect of the foot. This may be cervantes bcutaneous. Please correlate with physical exam. 3. Generalized soft tissue swelling of the foot. DATA REPOSITORY: RADIATION DOSE DELIVERED:
[2022-12-30 20:35] LABS: Abs Immature Grans 0.02 10^3/uL (0.0-0.06); Absolute Basophil Count 0.01 10^3/uL (0.0-0.2); Absolute Eosinophil Count 0.02 10^3/uL (0.0-0.7); Absolute Lymphocyte Count 0.41 10^3/uL (1.2-3.4); Absolute Monocyte Count 0.36 10^3/uL (0.1-0.8); Absolute Neutrophil Count 6.38 10^3/uL (1.2-6.7); Basophils % 0.1; Eosinophils % 0.3; HCT 28.3 % (36.0-46.0); HGB 8.1 g/dL (11.2-15.7); Immature Grans % 0.3; Lymphocytes % 5.7; MCH 27.6 pg (27.0-33.0); MCHC 28.6 % (32.0-36.0); MCV 97 fL (80-95); MPV 11.7 fL (8.0-11.0); Neutrophils % 88.6; Platelet Count 143 10^3/uL (130-400); RBC 2.93 10^6/uL (3.93-5.22); RDW 19.9 % (11.7-14.6); RDW-SD 68.3 fL
[2022-12-30 20:58] LABS: ALT 47 U/L (14-59); AST 32 U/L (15-37); Albumin 3.3 g/dL (3.4-5.0); Alkaline Phosphatase 66 U/L (46-116); Anion Gap 8.4 mmol/L (3-11); Bilirubin, Total 0.7 mg/dL (0.2-1.0); CO2 30.6 mmol/L (21.0-32.0); CREATININE 3.3 mg/dL (0.55-1.02); Calcium 7.8 mg/dL (8.5-10.1); Chloride 102 mmol/L (98-107); Glucose 305 mg/dL (74-106); Potassium 4.6 mmol/L (3.5-5.1); Sodium 141 mmol/L (136-145); Total Protein 6.6 g/dL (6.4-8.2)
--- NOTE | 2022-12-30 21:00 | W.ED.GENAD ---
Discharge Plan Disposition Patient Disposition: Home Condition: Good Discharge Details Clinical Impression: CKD (chronic kidney disease) stage 4, GFR 15-29 ml/min, CHF (congestive heart failure), Traumatic ecchymosis of right foot Primary Care Provider: Katherine Andre ED Provider: Hardy Benson Home Meds and New Rx's Prescriptions: No Action albuterol sulfate 90 mcg/actuation HFA aerosol inhaler 2 puff inhalation Q6H PRN (Reason: shortness of breath or wheezing) Qty: 18 4RF cetirizine 10 mg tablet 10 mg PO DAILY Qty: 90 3RF aspirin 81 mg tablet,delayed release (DR/EC) 81 mg PO DAILY Qty: 90 3RF atorvastatin 80 mg tablet 80 mg PO QPM Qty: 90 3RF fluticasone propionate [Flonase Allergy Relief] 50 mcg/actuation spray,suspension 2 spray intranasal DAILY PRN (Reason: allergy symptoms) Qty: 16 4RF Rx Instructions: administer into each nostril insulin aspart U-100 100 unit/mL (3 mL) insulin pen 1 sliding scale dose subcut TID Qty: 9 3RF Rx Instructions: Sliding Scale Insulin Instructions 60-124 = 0 126-150 = 4 151-200 = 6 201-300 = 8 301-350 = 10 351-400 = 12 prednisone 10 mg tablet 10 mg PO DAILY prednisone 2.5 mg tablet 5 mg PO DAILY (DME) pen needle, diabetic [BD Ultra-Fine Short Pen Needle] 31 gauge x 5/16 needle See Rx Instructions .MEDSUPPLY Qty: 360 3RF Rx Instructions: Use with pens daily glucose [Dex4 Glucose Quick Dissolve] 4 gram tablet,chewable 16 g PO ONCE PRN (Reason: hypoglycemia) Qty: 60 4RF Rx Instructions: 4 tablets if blood sugar less than 70. May repeat once after 15 minutes if blood sugar still less than 70 then follow with a snack or meal (DME) FreeStyle Consuelo 14 Day [place] Misc See Rx Instructions .MEDSUPPLY Qty: 1 4RF Rx Instructions: Continuous glucose monitor (DME) FreeStyle Consuelo 14 Day Sensor Kit See Rx Instructions .MEDSUPPLY Qty: 6 4RF Rx Instructions: Continuous glucose monitor (DME) Aerochamber MV Spacer See Rx Instructions .ROUTE .MEDSUPPLY Qty: 2 4RF Rx Instructions: Use with inhalers Bevespi Aerosphere 9-4.8 mcg HFA aerosol inhaler 2 puff inhalation BID Qty: 10.7 4RF Hold Instructions: Has not started and does not wish to for now Rx Instructions: 2 puffs twice a day (DME) blood-glucose meter [OneTouch Ultra2 Meter] Kit See Rx Instructions .MEDSUPPLY Qty: 1 2RF Rx Instructions: Check blood sugar twice a day Entresto 24-26 mg tablet 1 tab PO BID Qty: 90 4RF docusate sodium 100 mg capsule 100 mg PO DAILY empagliflozin 10 mg tablet 10 mg PO DAILY Qty: 90 3RF Hold Instructions: PALAK spironolactone 25 mg tablet 25 mg PO DAILY Qty: 90 3RF Hold Instructions: PALAK (DME) OneTouch Ultra Test Strip See Rx Instructions .MEDSUPPLY Qty: 500 3RF Rx Instructions: Check blood sugar five times a day (DME) lancets [OneTouch UltraSoft Lancets] Misc See Rx Instructions .ROUTE .MEDSUPPLY Qty: 500 3RF Rx Instructions: Check blood sugar five times a day clopidogrel 75 mg tablet 75 mg PO DAILY Qty: 90 3RF gabapentin 100 mg capsule 100 - 200 mg PO QHS Qty: 30 0RF Rx Instructions: Take 2 capsules daily for one week then 1 capsule daily for 1 week then stop insulin glargine [Lantus Solostar U-100 Insulin] 100 unit/mL (3 mL) insulin pen 30 unit subcut QAM Qty: 15 3RF cholecalciferol (vitamin D3) [Vitamin D3] 25 mcg (1,000 unit) Capsule 25 mcg PO DAILY ropinirole 0.5 mg Tablet 0.25 mg PO BID Qty: 60 0RF torsemide 20 mg tablet 40 mg PO DAILY Qty: 180 3RF Discharge Instructions Instructions: Heart Failure (ED), Foot Contusion (ED) Additional Instructions: At this time your laboratory work-up continues to demonstrate your chronic renal failure, your chronic congestive heart failure. The x-ray shows no evidence of fracture for your foot. It is critically important that you have minimal to 0 salt in your diet. At the very least for the next 2 to 3 days please do not eat anything with salt at all. Please continue to take your furosemide 40 mg twice daily as directed. Please follow-up closely with your primary care provider at your scheduled appointment on . Please monitor your foot closely for any redness or warmth which could suggest infection. If you notice any worsening of your symptoms, or any new symptoms such as vomiting, diarrhea, fever, chills, shortness of breath, chest pain, numbness, weakness, or fainting , please return immediately to the emergency department for reevaluation. Please follow up with your primary care provider as soon as possible for reassessment and reevaluation. As always, it was a pleasure participating in your medical care today. Referrals: Katherine Andre NP [Primary Care Provider] - Medical Decision Making Is a 72-year-old female with a past medical history of chronic congestive heart failure, chronic kidney disease, COPD, type 2 diabetes on insulin, previous NSTEMI's, dual antiplatelet therapy, chronically on torsemide and spironolactone for CHF, with a few recent administrations, the most recent discharge being 4 days ago after an admission for CHF exacerbation. She was discharged with a prescription for 80 mg of Lasix daily, however she only started taking this yesterday. Today she noticed bruising and a small blister on the dorsum of her right foot. She denies any trauma. She denies any fever or chills. She does admit to worsening edema of her lower extremities. No other complaints at this time. No other modifying factors. She denies any pain or tenderness in the foot. Physical exam demonstrates a well-appearing female, minimal crackles in the bases of the lungs, no hypoxemia. Right foot demonstrates a bruise over the dorsum of the foot on the right, with a single solitary blister is noted. No bleeding. No redness or warmth to suggest cellulitis. No subcutaneous crepitus. No tenderness on palpation of the foot. No overt signs of fracture. +3 pitting edema of the shins and the feet bilaterally. Differential is highest for slightly worsening CHF. Blood pressure stable, heart rate stable, oxygenation excellent. We will get an x-ray to rule out occult fracture, will get basic blood work, monitor closely and reassess. 10:05 PM Laboratory work-up has returned, vital signs are stable. No hypoxemia at time of reassessment. Hemoglobin stable compared to prior labs. Patient does demonstrate notably elevated BUN and creatinine however it remained stable in comparison to prior assessments. proBNP is greater than 35,000, however this is not new for the patient. Patient now does admit to eating [place]ak[place] food yesterday, which is likely contributing factor to her notable congestive heart failure and continued swelling. Did discuss admission versus discharge. At this time patient is notably preferential towards discharge. I do feel that although she does have significant chronic illness, there is not a significant acute exacerbation at this time. I had a very long and thorough discussion with her regarding the critical importance of avoiding any salt based foods secondary to her notable heart and renal failure. She understands this, but will have to make decisions on her own in regards to this. Patient was given an additional 40 mg of Lasix today via IV. X-rays negative for acute process for the foot. I suspect a bruise occurred secondary to a contusion. No clinical evidence of cellulitis or infection whatsoever at this time. Symptoms are inconsistent with necrotizing fasciitis, staph scalded skin syndrome, pemphigus vulgaris, or bullous impetigo. Patient otherwise stable. Patient will be discharged. Patient will be following up closely with her primary care provider in 48 hours. I discussed with the family who is at bedside concerning red flags that would represent cellulitis or infection, worsening CHF, or other concerning problems. Patient is notably comfortable with the plan. I have extensively reviewed the treatment plan and discharge instructions with the patient. I have addressed all patient concerns at this time. The patient was made aware of what symptoms to monitor for that would warrant a return to the emergency department. Discussed the plan with the patient, they demonstrate verbal understanding and agreement with our assessment and plan at this time. The documentation in this chart was dictated using [employer] dictation software. Please excuse any dictation errors. HPI General Date/Time Provider Initiated Documentation: 12/30/22 19:40. HPI Narrative: Is a 72-year-old female with a past medical history of chronic congestive heart failure, chronic kidney disease, COPD, type 2 diabetes on insulin, previous NSTEMI's, dual antiplatelet therapy, chronically on torsemide and spironolactone for CHF, with a few recent administrations, the most recent discharge being 4 days ago after an admission for CHF exacerbation. She was discharged with a prescription for 80 mg of Lasix daily, however she only started taking this yesterday. Today she noticed bruising and a small blister on the dorsum of her right foot. She denies any trauma. She denies any fever or chills. She does admit to worsening edema of her lower extremities. No other complaints at this time. No other modifying factors. She denies any pain or tenderness in the foot. Related Data Home Medications Medication Instructions Recorded Confirmed blood-glucose meter (Replay Solutionsuch #1 ea 11/26/20 12/17/22 Ultra2 Meter kit) cholecalciferol (vitamin D3) 25 25 mcg PO DAILY 08/30/21 12/17/22 mcg (1,000 unit) capsule (Vitamin D3) sacubitril 24 mg-valsartan 26 mg 1 tab PO BID #90 tabs 03/17/22 12/17/22 tablet (Entresto) docusate sodium 100 mg capsule 100 mg PO DAILY 07/10/22 12/17/22 aspirin 81 mg tablet,delayed 81 mg PO DAILY #90 tabs 07/11/22 12/17/22 release atorvastatin 80 mg tablet 80 mg PO QPM #90 tabs 07/11/22 12/17/22 cetirizine 10 mg tablet 10 mg PO DAILY #90 tab-caps 07/11/22 12/17/22 empagliflozin 10 mg tablet 10 mg PO DAILY #90 tabs 07/11/22 12/17/22 fluticasone propionate 50 2 spray intranasal DAILY PRN 07/11/22 12/17/22 mcg/actuation nasal allergy symptoms #16 grams spray,suspension (Flonase Allergy Relief) spironolactone 25 mg tablet 25 mg PO DAILY #90 tabs 07/16/22 12/17/22 blood sugar diagnostic (OneTouch #500 ea 10/20/22 12/17/22 Ultra Test strips) lancets (Replay SolutionsTouch UltraSoft #500 ea 10/20/22 12/17/22 Lancets) insulin aspart U-100 100 unit/mL 1 sliding scale dose subcut TID #9 10/22/22 12/17/22 (3 mL) subcutaneous pen SYRGS clopidogrel 75 mg tablet 75 mg PO DAILY #90 tabs 10/30/22 12/17/22 albuterol sulfate 90 mcg/actuation 2 puff inhalation Q6H PRN 11/04/22 12/17/22 aerosol inhaler shortness of breath or wheezing #18 grams prednisone 10 mg tablet 10 mg PO DAILY 11/14/22 12/17/22 flash glucose scanning reader #1 ea 12/17/22 12/17/22 (FreeStyle Consuelo 14 Day [place]) flash glucose sensor (FreeStyle #6 ea 12/17/22 12/17/22 Consuelo 14 Day Sensor kit) glucose 4 gram chewable tablet 16 g PO ONCE PRN hypoglycemia #60 12/17/22 12/17/22 (Dex4 Glucose Quick Dissolve) tabs glycopyrrolate 9 mcg-formoterol 2 puff inhalation BID #10.7 grams 12/17/22 12/17/22 4.8 mcg HFA aerosol inhaler (Bevespi Aerosphere) inhalational spacing device #2 ea 12/17/22 12/17/22 (Aerochamber MV spacer) pen needle, diabetic 31 gauge x #360 ea 12/17/22 12/17/22/ (BD Ultra-Fine Short Pen Needle) prednisone 2.5 mg tablet 5 mg PO DAILY 12/17/22 12/17/22 gabapentin 100 mg capsule 100 - 200 mg PO QHS #30 caps 12/26/22 ropinirole 0.5 mg tablet 0.25 mg PO BID #60 tabs 12/26/22 torsemide 20 mg tablet 40 mg PO DAILY #180 tabs 12/26/22 12/17/22 insulin glargine 100 unit/mL (3 30 unit (0.3 mL) subcut QAM #15 mL 12/29/22 mL) subcutaneous pen (Lantus Solostar U-100 Insulin) Previous Rx's Medication Instructions Recorded blood-glucose meter (Daishu.comuch #1 ea 11/26/20 Ultra2 Meter kit) sacubitril 24 mg-valsartan 26 mg 1 tab PO BID #90 tabs 03/17/22 tablet (Entresto) aspirin 81 mg tablet,delayed 81 mg PO DAILY #90 tabs 07/11/22 release atorvastatin 80 mg tablet 80 mg PO QPM #90 tabs 07/11/22 cetirizine 10 mg tablet 10 mg PO DAILY #90 tab-caps 07/11/22 empagliflozin 10 mg tablet 10 mg PO DAILY #90 tabs 07/11/22 fluticasone propionate 50 2 spray intranasal DAILY PRN 07/11/22 mcg/actuation nasal allergy symptoms #16 grams spray,suspension (Flonase Allergy Relief) spironolactone 25 mg tablet 25 mg PO DAILY #90 tabs 07/16/22 blood sugar diagnostic (OneTouch #500 ea 10/20/22 Ultra Test strips) lancets (OneTouch UltraSoft #500 ea 10/20/22 Lancets) insulin aspart U-100 100 unit/mL 1 sliding scale dose subcut TID #9 10/22/22 (3 mL) subcutaneous pen SYRGS clopidogrel 75 mg tablet 75 mg PO DAILY #90 tabs 10/30/22 albuterol sulfate 90 mcg/actuation 2 puff inhalation Q6H PRN 11/04/22 aerosol inhaler shortness of breath or wheezing #18 grams flash glucose scanning reader #1 ea 12/17/22 (FreeStyle Consuelo 14 Day [place]) flash glucose sensor (FreeStyle #6 ea 12/17/22 Consuelo 14 Day Sensor kit) glucose 4 gram chewable tablet 16 g PO ONCE PRN hypoglycemia #60 12/17/22 (Dex4 Glucose Quick Dissolve) tabs glycopyrrolate 9 mcg-formoterol 2 puff inhalation BID #10.7 grams 12/17/22 4.8 mcg HFA aerosol inhaler (Bevespi Aerosphere) inhalational spacing device #2 ea 12/17/22 (Aerochamber MV spacer) pen needle, diabetic 31 gauge x #360 ea 12/17/22 5/16 (BD Ultra-Fine Short Pen Needle) gabapentin 100 mg capsule 100 - 200 mg PO QHS #30 caps 12/26/22 ropinirole 0.5 mg tablet 0.25 mg PO BID #60 tabs 12/26/22 torsemide 20 mg tablet 40 mg PO DAILY #180 tabs 12/26/22 insulin glargine 100 unit/mL (3 30 unit (0.3 mL) subcut QAM #15 mL 12/29/22 mL) subcutaneous pen (Lantus Solostar U-100 Insulin) Allergies Allergy/AdvReac Type Severity Reaction Status Date / Time codeine AdvReac Severe Cardiac Verified 12/17/22 10:23 Dysrythmia indomethacin AdvReac Intermediate Cardiac Verified 12/17/22 10:23 Dysrythmia lisinopril AdvReac cough Verified 12/17/22 10:23 General Stated Complaint: GenMedical BELKIS: 3 Review of Systems All systems reviewed & are unremarkable except as noted in HPI and below PFSH All Active Problems (Updated 12/30/22 @ 22:04 by Hardy Benson DO) CHF (congestive heart failure) (Chronic) Traumatic ecchymosis of right foot (Acute) Advanced care planning/counseling discussion (Acute) Palliative care encounter (Acute) Acute kidney injury superimposed on chronic kidney disease (Acute) Chronic respiratory failure with hypoxia (Acute) CKD (chronic kidney disease) stage 4, GFR 15-29 ml/min (Acute) Non-ST elevation SC (NSTEMI) (Acute ~10/2022) Type 2 diabetes mellitus with retinopathy of both eyes, with long-term current use of insulin (Chronic) CVA (cerebral vascular accident) (Acute ~12/2021) Heart failure with reduced ejection fraction (Chronic) Chronic obstructive pulmonary disease (Chronic) O2 dependent on 3L NC Polymyalgia rheumatica (Chronic) Carotid atherosclerosis (Chronic) Essential hypertension (Chronic) GERD (gastroesophageal reflux disease) (Chronic) Pulmonary nodule (Chronic) Nicotine dependence, cigarettes, uncomplicated (Chronic) Annual LDCT Osteoarthritis of hips, bilateral (Chronic) Diabetic nephropathy (Chronic) Ventral hernia (Chronic) Generalized anxiety disorder (Chronic) Benign positional vertigo (Chronic) 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 Father Diabetes Daughter No problems noted. Daughter No problems noted. Daughter No problems noted. Daughter No problems noted. 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 4 daughters Exam Narrative Exam Narrative: 1.Const: Well-nourished, Well-developed, appearing stated age 2.Eyes: PERRL, no conjunctival injection, and symmetrical lids. 3.ENT: Atraumatic external nose and ears. Moist MM. Neck: Symmetric, trachea midline, No thyromegaly. 4.CVS: +S1/S2, No murmurs or gallops. Peripheral pulses 2+ and equal in all extremities. Brisk capillary refill in all extremities. 5.RESP: Unlabored respiratory effort. Minimal crackles in the bases. No wheezes or rhonchi. 6.GI: Soft, Nontender/Nondistended, No hepatosplenomegaly. No guarding or rebound. 7.MSK: Normocephalic/Atraumatic, Extremities w/o deformity or ttp No cyanosis or clubbing, Normal movement of all extremities. +3 pitting edema of the lower extremities bilaterally on the shins, as well as the feet. Right foot demonstrates bruising over the dorsum of the foot, a single solitary blisters noted. No subcutaneous crepitus. No evidence of tenderness on the foot. No other signs of overt trauma. No warmth to suggest cellulitis. 8.Skin: Warm, Dry. No rashes or lesions. 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 Sensation grossly intact, no focal neurologic deficits. 10.Psych: (AAO) x3. Appropriate mood and affect Course Vital Signs Vital signs: Vital Signs Temperature 36.1 C L 12/30/22 18:25 Pulse 100 H 12/30/22 18:25 Respiratory Rate 16 12/30/22 18:25 Blood Pressure 84/48 L 12/30/22 18:25 Pulse Oximetry 91 L 12/30/22 18:25 Temperature 36.1 C L 12/30/22 18:25 Temperature Source Tympanic 12/30/22 18:25 Pulse 89 12/30/22 20:01 Pulse 92 H 12/30/22 20:30 Respiratory Rate 22 12/30/22 20:30 Respiratory Effort Normal, Non-Labored 12/30/22 19:03 Respiratory Depth Normal 12/30/22 19:03 Respiratory Pattern Normal 12/30/22 19:03 Blood Pressure 113/46 L 12/30/22 20:01 Blood Pressure Mean 62 12/30/22 20:01 Blood Pressure Position Sitting 12/30/22 18:25 Pulse Oximetry 95 12/30/22 20:30 Oxygen Delivery Method Nasal Cannula 12/30/22 18:25 Oxygen Flow Rate 2 12/30/22 18:25 Lab/Test Results Lab/Test Results: Laboratory Tests Range/Units 12/30/22 18:56 WBC (4.4-10.8) 10^3/uL 7.20 RBC (3.93-5.22) 10^6/uL 2.93 L Hgb (11.2-15.7) g/dL 8.1 L Hct (36.0-46.0) % 28.3 L MCV (80-95) fL 97 H MCH (27.0-33.0) pg 27.6 MCHC (32.0-36.0) % 28.6 L RDW (11.7-14.6) % 19.9 H Plt Count (130-400) 10^3/uL 143 MPV (8.0-11.0) fL 11.7 H Immature Gran % 0.3 Neutrophils % 88.6 Lymphocytes % 5.7 Monocytes % 5.0 Eosinophils % 0.3 Basophils % 0.1 Nucleated RBC % (0.0-0.3) % 0.0 Absolute Neutrophils (1.2-6.7) 10^3/uL 6.38 Absolute Lymphocytes (1.2-3.4) 10^3/uL 0.41 L Absolute Monocytes (0.1-0.8) 10^3/uL 0.36 Absolute Eosinophils (0.0-0.7) 10^3/uL 0.02 Absolute Basophils (0.0-0.2) 10^3/uL 0.01
[2022-12-30 21:07] LABS: BUN 94 mg/dL (7-18)
[2022-12-30 21:20] LABS: NT-proBNP > 35000 pg/mL (<300)
--- NOTE | 2022-12-30 21:24 | DI.VRAD_ITS ---
PROCEDURE INFORMATION: Exam: XR Right Foot Exam date and time: 12/30/2022 9:03 PM Age: 72 years old Clinical indication: Pain; Foot; Right; Additional info: Bruise, swelling, over dorsum, eval for FX vs gas TECHNIQUE: Imaging protocol: Radiologic exam of the right foot. Views: 3 or more views. COMPARISON: No relevant prior studies available. FINDINGS: Bones/joints: Calcaneal spur. No acute fracture or dislocation Soft tissues: Soft tissue swelling over the dorsum of the foot. Rounded ovoid density in the dorsum of the foot measuring 8-9 mm IMPRESSION: Swelling over the dorsum of the foot. Possible subcutaneous cystic structure as described measuring 9 mm Dictated and Authenticated by: Benito Hebert MD. Ordering:RAFAEL Dash MD
[2022-12-30] MEDS: Albuterol/Ipratropium 3 ML UPD VIAL (21:45)
[2022-12-30] MEDS: Furosemide 40 MG/4 ML VIAL (21:50)
--- NOTE | 2023-01-06 09:29 | INDS_ITS ---
Date of service: 12/26/22
--- NOTE | 2023-01-06 09:29 | PT.INDS ---
Date of service: 12/26/22
== END 2022-12-30 22:15 | disposition home or self-care (01) ==
PROVIDERS: Emergency Provider Student in an Organized Health Care Education/Training Program; PCP Nurse Practitioner Family
DX: S90.31XA Contusion of right foot, initial encounter (principal); I13.0 Hypertensive heart and chronic kidney disease with heart failure and stage 1 through stage 4 chronic kidney disease, or unspecified chronic kidney disease; E11.22 Type 2 diabetes mellitus with diabetic chronic kidney disease; I50.22 Chronic systolic (congestive) heart failure; N18.4 Chronic kidney disease, stage 4 (severe); E11.21 Type 2 diabetes mellitus with diabetic nephropathy; J44.9 Chronic obstructive pulmonary disease, unspecified; I25.2 Old myocardial infarction; R60.0 Localized edema; Z79.82 Long term (current) use of aspirin; Z79.4 Long term (current) use of insulin; Z79.52 Long term (current) use of systemic steroids; Z79.899 Other long term (current) drug therapy; Z86.16 Personal history of COVID-19; X58.XXXA Exposure to other specified factors, initial encounter; R79.89 Other specified abnormal findings of blood chemistry
CPT/HCPCS: 36415; 80053; 93005; 99283; 73630; 83880; 85025; 93010; 99285; J1940; J7620

== ENCOUNTER 2023-01-06 13:49 | Inpatient (IN) | payer MEDICARE, MEDICAID, SELFPAY ==
[2023-01-06] VITALS (16 sets, daily range): BP systolic 110–135; BP diastolic 66–79; PULSE 72–103; RESP 16–29; TEMP 36.4–36.8; O2SAT 96–100
--- NOTE | 2023-01-06 | DI.RAD_ITS ---
Exam(s) XR FOOT RT LIMITED EXAM: XR FOOT RT LIMITED CLINICAL HISTORY: cellulitis right foot; r/o osteomyelitis. TECHNIQUE: 2D digital imaging was performed. Three views. COMPARISON: CR,XR XR FOOT RT COMPLETE from 12/30/2022 FINDINGS: BONES: No acute fracture is present. A fracture is again noted of the proximal phalanx of the 5th to e. This is unchanged in alignment. No bony destructive lesion is seen. Small heel spur. JOINTS: No dislocation present. SOFT TISSUE: Swelling over dorsum of foot. No foreign body or gas collection. IMPRESSION: Soft tissue swelling. No plain film evidence of osteomyelitis. DATA REPOSITORY: RADIATION DOSE DELIVERED:
--- NOTE | 2023-01-06 14:00 | RT.EKG_ITS ---
APPROVED REPORT Exam: Resting ECG Reason for Exam: chest pain Patient Location: E HR:100 bpm ECG Measurements Heart Rate 100 AXIS ID 168 P 78 QRSd 94 QRS 61 QT 376 T -45 QTc 474 Conclusion Sinus rhythm...normal P axis, V-rate 60- 99 Atrial premature complexes...SV complexes w/ short R-R intvls Probable left atrial enlargement...P >50mS, <-0.10mV V1 Low voltage, extremity leads...all extremity leads <0.5mV Nonspecific T abnormalities, lateral leads...T <-0.10mV, I aVL V5 V6
--- NOTE | 2023-01-06 14:15 | DI.RAD_ITS ---
Exam(s) XR CHEST 2V PA LATERAL EXAM: XR CHEST 2V PA LATERAL CLINICAL HISTORY: chest pain. TECHNIQUE: 2D digital imaging was performed. COMPARISON: CR XR CHEST 2V PA LATERAL from 10/23/2022 CR XR CHEST 2V PA LATERAL from 12/17/2022 FINDINGS: 2 views: Cardiomegaly again noted. Increased interstitial markings again noted. Chronic fibrotic but cannot exclude an element of pulmo nary edema. There is significant infiltrate now evident in the right lung base. Small bilateral pleural effusion s. IMPRESSION: Interstitial disease with chronic component. Also new infiltrate in the right lung base. DATA REPOSITORY: RADIATION DOSE DELIVERED:
--- NOTE | 2023-01-06 14:27 | DI.US_ITS ---
Exam(s) US EXTREMITY VENOUS BI EXAM: US EXTREMITY VENOUS BI CLINICAL HISTORY: swelling, recent chest pain TECHNIQUE: Grayscale, color, and doppler imaging of the deep venous system of both lower extremities was performed. COMPARISON: US US ECHO FOLLOW-UP OR LIMITED from 12/18/2022 FINDINGS: There is no evidence of intraluminal thrombus and there is normal compression and augmentation demons trated within the common femoral veins, femoral veins, and popliteal veins of both lower extremities. In the calves the interrogated veins also exhibit normal compression/ augmentation properties. The greater saphenous veins also appear patent as do the saphenofemoral junctions bilaterally.. IMPRESSION: 1. No ultrasound evidence of DVT in either lower extremity. DATA REPOSITORY:
[2023-01-06 14:51] LABS: Abs Immature Grans 0.01 10^3/uL (0.0-0.06); Absolute Basophil Count 0.01 10^3/uL (0.0-0.2); Absolute Eosinophil Count 0.01 10^3/uL (0.0-0.7); Absolute Lymphocyte Count 0.29 10^3/uL (1.2-3.4); Absolute Monocyte Count 0.27 10^3/uL (0.1-0.8); Basophils % 0.1; Eosinophils % 0.1; HCT 32.6 % (36.0-46.0); HGB 9.2 g/dL (11.2-15.7); Immature Grans % 0.1; Lymphocytes % 3.9; MCH 27.1 pg (27.0-33.0); MCHC 28.2 % (32.0-36.0); MCV 96 fL (80-95); MPV 11.5 fL (8.0-11.0); Monocytes % 3.6; Neutrophils % 92.2; Platelet Count 171 10^3/uL (130-400); RDW 19.1 % (11.7-14.6); RDW-SD 66.5 fL; WBC 7.49 10^3/uL (4.4-10.8)
[2023-01-06] MEDS: VANCOMYCIN 1,500 MG in Normal Saline 250 ML 166.6666 MG IVPB (15:10)
[2023-01-06 15:13] LABS: ALT 84 U/L (14-59); AST 57 U/L (15-37); Albumin 3.5 g/dL (3.4-5.0); Alkaline Phosphatase 95 U/L (46-116); Anion Gap 8.7 mmol/L (3-11); BUN 61 mg/dL (7-18); CO2 31.3 mmol/L (21.0-32.0); CREATININE 2.6 mg/dL (0.55-1.02); Calcium 8.9 mg/dL (8.5-10.1); Chloride 105 mmol/L (98-107); Glucose 141 mg/dL (74-106); Potassium 3.9 mmol/L (3.5-5.1); Sodium 145 mmol/L (136-145)
[2023-01-06 15:21] LABS: Troponin I 67 ng/L (<or=60)
--- NOTE | 2023-01-06 15:47 | W.ED.GENAD ---
Discharge Plan Disposition Patient Disposition: Admit to [facility] Discharge Details Chief Complaint: GenMedical Clinical Impression: Cellulitis of foot, right, CKD (chronic kidney disease), Chronic anemia, CHF (congestive heart failure), Elevated troponin, Pulmonary infiltrate Primary Care Provider: Katherine Andre ED Provider: Herbie Wang Home Meds and New Rx's Prescriptions: No Action cetirizine 10 mg tablet 10 mg PO DAILY Qty: 90 3RF aspirin 81 mg tablet,delayed release (DR/EC) 81 mg PO DAILY Qty: 90 3RF atorvastatin 80 mg tablet 80 mg PO QPM Qty: 90 3RF fluticasone propionate [Flonase Allergy Relief] 50 mcg/actuation spray,suspension 2 spray intranasal DAILY PRN (Reason: allergy symptoms) Qty: 16 4RF Rx Instructions: administer into each nostril insulin aspart U-100 100 unit/mL (3 mL) insulin pen 1 sliding scale dose subcut TID Qty: 9 3RF Rx Instructions: Sliding Scale Insulin Instructions 60-124 = 0 126-150 = 4 151-200 = 6 201-300 = 8 301-350 = 10 351-400 = 12 prednisone 10 mg tablet 10 mg PO DAILY prednisone 2.5 mg tablet 5 mg PO DAILY (DME) pen needle, diabetic [BD Ultra-Fine Short Pen Needle] 31 gauge x 5/16 needle See Rx Instructions .MEDSUPPLY Qty: 360 3RF Rx Instructions: Use with pens daily (DME) FreeStyle Consuelo 14 Day Nora Misc See Rx Instructions .MEDSUPPLY Qty: 1 4RF Rx Instructions: Continuous glucose monitor (DME) FreeStyle Consuelo 14 Day Sensor Kit See Rx Instructions .MEDSUPPLY Qty: 6 4RF Rx Instructions: Continuous glucose monitor (DME) Aerochamber MV Spacer See Rx Instructions .ROUTE .MEDSUPPLY Qty: 2 4RF Rx Instructions: Use with inhalers Bevespi Aerosphere 9-4.8 mcg HFA aerosol inhaler 2 puff inhalation BID Qty: 10.7 4RF Hold Instructions: Has not started and does not wish to for now Rx Instructions: 2 puffs twice a day insulin glargine [Lantus Solostar U-100 Insulin] 100 unit/mL (3 mL) insulin pen 25 unit subcut QAM Qty: 15 3RF (DME) blood-glucose meter [OneTouch Ultra2 Meter] Kit See Rx Instructions .MEDSUPPLY Qty: 1 2RF Rx Instructions: Check blood sugar twice a day Entresto 24-26 mg tablet 1 tab PO BID Qty: 90 4RF docusate sodium 100 mg capsule 100 mg PO DAILY (DME) OneTouch Ultra Test Strip See Rx Instructions .MEDSUPPLY Qty: 500 3RF Rx Instructions: Check blood sugar five times a day (DME) lancets [OneTouch UltraSoft Lancets] Misc See Rx Instructions .ROUTE .MEDSUPPLY Qty: 500 3RF Rx Instructions: Check blood sugar five times a day clopidogrel 75 mg tablet 75 mg PO DAILY Qty: 90 3RF albuterol sulfate 90 mcg/actuation HFA aerosol inhaler 2 puff inhalation Q4H PRN (Reason: shortness of breath or wheezing) Qty: 18 4RF torsemide 20 mg tablet 40 mg PO BID Qty: 180 3RF cholecalciferol (vitamin D3) [Vitamin D3] 25 mcg (1,000 unit) Capsule 25 mcg PO DAILY ropinirole 0.5 mg tablet 0.25 mg PO BID Rx Instructions: 1 tablet daily around 5pm cephalexin 250 mg Tablet 250 mg PO TID Medical Decision Making 72-year-old female with multiple medical problems including congestive heart failure, on diuretics, here with persistent swelling bilateral feet and cellulitis surrounding ruptured blister/ulcer dorsal right foot. Patient did have episode of chest pain and shortness of breath yesterday. Chest pain and shortness of breath resolved. Patient is tachycardic, normotensive, saturating well in no respiratory distress. Lungs are clear to auscultation bilaterally. I considered ACS given episode of chest pain yesterday. Screening EKG was reviewed and interpreted by me: Please report, nondiagnostic. Sinus tachycardia. No STEMI. Initial troponin is slightly elevated at 67. Plan to trend this. Considered dvt/pulmonary embolism. Patient is saturating well and has no chest pain or shortness of breath at this time. I will obtain bilateral duplex lower extremities. I will initiate treatment of cellulitis of the right foot with vancomycin. I called and spoke with Dr. Tobar, discussed ED presentation and course, he will admit the patient. Care transition at time of admission. Chest x-ray was obtained and interpreted after discussion with hospitalist. Chest x-ray interpreted by radiology as Cardiomegaly again noted. Increased interstitial markings again noted.? Chronic fibrotic but cannot exclude an element of pulmonary edema. There is significant infiltrate now evident in the right lung base.? Small bilateral pleural effusions. Ultrasound of the lower extremities interpreted by radiology after discussion with hospitalist as: 1.? No ultrasound evidence of DVT in either lower extremity. Lab Data Lab results reviewed: Yes I reviewed the patient's lab results. Labs: 01/06/23 16:07 Nose MRSA Screen - Pending Laboratory Tests Range/Units 01/06/23 01/06/23 01/06/23 14:15 14:15 14:15 WBC (4.4-10.8) 10^3/uL 7.49 RBC (3.93-5.22) 10^6/uL 3.40 L Hgb (11.2-15.7) g/dL 9.2 L Hct (36.0-46.0) % 32.6 L MCV (80-95) fL 96 H MCH (27.0-33.0) pg 27.1 MCHC (32.0-36.0) % 28.2 L RDW (11.7-14.6) % 19.1 H Plt Count (130-400) 10^3/uL 171 MPV (8.0-11.0) fL 11.5 H Immature Gran % 0.1 Neutrophils % 92.2 Lymphocytes % 3.9 Monocytes % 3.6 Eosinophils % 0.1 Basophils % 0.1 Nucleated RBC % (0.0-0.3) % 0.0 Absolute Neutrophils (1.2-6.7) 10^3/uL 6.90 H Absolute Lymphocytes (1.2-3.4) 10^3/uL 0.29 L Absolute Monocytes (0.1-0.8) 10^3/uL 0.27 Absolute Eosinophils (0.0-0.7) 10^3/uL 0.01 Absolute Basophils (0.0-0.2) 10^3/uL 0.01 VBG Lactate (0.6-1.4) mmol/L Sodium (136-145) mmol/L 145 Potassium (3.5-5.1) mmol/L 3.9 Chloride (98-107) mmol/L 105 Carbon Dioxide (21.0-32.0) mmol/L 31.3 Anion Gap (3-11) mmol/L 8.7 BUN (7-18) mg/dL 61 H Creatinine (0.55-1.02) mg/dL 2.6 H Est GFR (CKD-EPI 2020) (mL/min/1.73m2) 18.90 Glucose (74-106) mg/dL 141 H Calcium (8.5-10.1) mg/dL 8.9 Total Bilirubin (0.2-1.0) mg/dL 1.0 AST (15-37) U/L 57 H ALT (14-59) U/L 84 H Alkaline Phosphatase (46-116) U/L 95 Troponin I (<or=60) ng/L 67 H* Total Protein (6.4-8.2) g/dL 7.0 Albumin (3.4-5.0) g/dL 3.5 Procalcitonin ng/mL COVID-19 Source SARS-CoV-2 (PCR) (Negative) Add-On Test Request Range/Units 01/06/23 01/06/23 01/06/23 16:05 16:45 16:45 WBC (4.4-10.8) 10^3/uL RBC (3.93-5.22) 10^6/uL Hgb (11.2-15.7) g/dL Hct (36.0-46.0) % MCV (80-95) fL MCH (27.0-33.0) pg MCHC (32.0-36.0) % RDW (11.7-14.6) % Plt Count (130-400) 10^3/uL MPV (8.0-11.0) fL Immature Gran % Neutrophils % Lymphocytes % Monocytes % Eosinophils % Basophils % Nucleated RBC % (0.0-0.3) % Absolute Neutrophils (1.2-6.7) 10^3/uL Absolute Lymphocytes (1.2-3.4) 10^3/uL Absolute Monocytes (0.1-0.8) 10^3/uL Absolute Eosinophils (0.0-0.7) 10^3/uL Absolute Basophils (0.0-0.2) 10^3/uL VBG Lactate (0.6-1.4) mmol/L 1.0 Sodium (136-145) mmol/L Potassium (3.5-5.1) mmol/L Chloride (98-107) mmol/L Carbon Dioxide (21.0-32.0) mmol/L Anion Gap (3-11) mmol/L BUN (7-18) mg/dL Creatinine (0.55-1.02) mg/dL Est GFR (CKD-EPI 2020) (mL/min/1.73m2) Glucose (74-106) mg/dL Calcium (8.5-10.1) mg/dL Total Bilirubin (0.2-1.0) mg/dL AST (15-37) U/L ALT (14-59) U/L Alkaline Phosphatase (46-116) U/L Troponin I (<or=60) ng/L Total Protein (6.4-8.2) g/dL Albumin (3.4-5.0) g/dL Procalcitonin ng/mL COVID-19 Source Nasal/Nares SARS-CoV-2 (PCR) (Negative) Negative Add-On Test Request DONE Range/Units 01/06/23 16:45 WBC (4.4-10.8) 10^3/uL RBC (3.93-5.22) 10^6/uL Hgb (11.2-15.7) g/dL Hct (36.0-46.0) % MCV (80-95) fL MCH (27.0-33.0) pg MCHC (32.0-36.0) % RDW (11.7-14.6) % Plt Count (130-400) 10^3/uL MPV (8.0-11.0) fL Immature Gran % Neutrophils % Lymphocytes % Monocytes % Eosinophils % Basophils % Nucleated RBC % (0.0-0.3) % Absolute Neutrophils (1.2-6.7) 10^3/uL Absolute Lymphocytes (1.2-3.4) 10^3/uL Absolute Monocytes (0.1-0.8) 10^3/uL Absolute Eosinophils (0.0-0.7) 10^3/uL Absolute Basophils (0.0-0.2) 10^3/uL VBG Lactate (0.6-1.4) mmol/L Sodium (136-145) mmol/L Potassium (3.5-5.1) mmol/L Chloride (98-107) mmol/L Carbon Dioxide (21.0-32.0) mmol/L Anion Gap (3-11) mmol/L BUN (7-18) mg/dL Creatinine (0.55-1.02) mg/dL Est GFR (CKD-EPI 2020) (mL/min/1.73m2) Glucose (74-106) mg/dL Calcium (8.5-10.1) mg/dL Total Bilirubin (0.2-1.0) mg/dL AST (15-37) U/L ALT (14-59) U/L Alkaline Phosphatase (46-116) U/L Troponin I (<or=60) ng/L Total Protein (6.4-8.2) g/dL Albumin (3.4-5.0) g/dL Procalcitonin ng/mL < 0.1 COVID-19 Source SARS-CoV-2 (PCR) (Negative) Add-On Test Request HPI General Mode of arrival: ambulatory. Date/Time Provider Initiated Documentation: 01/06/23 13:58. Limitations to Documentation: no limitations. Information obtained by: patient. HPI Narrative: 72-year-old female with multiple medical problems including history of chronic kidney disease, diabetes, coronary artery disease, CHF, COPD, recently hospitalized for CHF exacerbation, now at nursing rehab facility, sent for concern for atrial fibrillation. Patient apparently had episode of chest discomfort and shortness of breath yesterday. EKG could not be obtained yesterday. There was concern for potential atrial fibrillation and patient was sent for evaluation. Also of note, she has recently diagnosed cellulitis of her right foot and was started on antibiotics today. Patient denies chest pain or shortness of breath today. She has had persistent swelling of her feet which long term staff states is persistent despite diuretic treatment. Related Data Home Medications Medication Instructions Recorded Confirmed blood-glucose meter (Gruvi #1 ea 11/26/20 01/01/23 Ultra2 Meter kit) cholecalciferol (vitamin D3) 25 25 mcg PO DAILY 08/30/21 01/06/23 mcg (1,000 unit) capsule (Vitamin D3) sacubitril 24 mg-valsartan 26 mg 1 tab PO BID #90 tabs 03/17/22 01/06/23 tablet (Entresto) docusate sodium 100 mg capsule 100 mg PO DAILY 07/10/22 01/06/23 aspirin 81 mg tablet,delayed 81 mg PO DAILY #90 tabs 07/11/22 01/06/23 release atorvastatin 80 mg tablet 80 mg PO QPM #90 tabs 07/11/22 01/06/23 cetirizine 10 mg tablet 10 mg PO DAILY #90 tab-caps 07/11/22 01/06/23 fluticasone propionate 50 2 spray intranasal DAILY PRN 07/11/22 01/06/23 mcg/actuation nasal allergy symptoms #16 grams spray,suspension (Flonase Allergy Relief) blood sugar diagnostic (OneTouch #500 ea 10/20/22 01/01/23 Ultra Test strips) lancets (BuildMyMoveTouch UltraSoft #500 ea 10/20/22 01/01/23 Lancets) insulin aspart U-100 100 unit/mL 1 sliding scale dose subcut TID #9 10/22/22 01/06/23 (3 mL) subcutaneous pen SYRGS clopidogrel 75 mg tablet 75 mg PO DAILY #90 tabs 10/30/22 01/06/23 prednisone 10 mg tablet 10 mg PO DAILY 11/14/22 01/06/23 flash glucose scanning reader #1 ea 12/17/22 01/01/23 (FreeStyle Consuelo 14 Day Nora) flash glucose sensor (FlyCastStyle #6 ea 12/17/22 01/01/23 Consuelo 14 Day Sensor kit) glycopyrrolate 9 mcg-formoterol 2 puff inhalation BID #10.7 grams 12/17/22 01/06/23 4.8 mcg HFA aerosol inhaler (Bevespi Aerosphere) inhalational spacing device #2 ea 12/17/22 01/01/23 (Aerochamber MV spacer) pen needle, diabetic 31 gauge x #360 ea 12/17/22 01/01/23 5/16 (BD Ultra-Fine Short Pen Needle) prednisone 2.5 mg tablet 5 mg PO DAILY 12/17/22 01/06/23 insulin glargine 100 unit/mL (3 25 unit (0.25 mL) subcut QAM #15 mL 01/01/23 01/06/23 mL) subcutaneous pen (Lantus Solostar U-100 Insulin) albuterol sulfate 90 mcg/actuation 2 puff inhalation Q4H PRN 01/02/23 01/06/23 aerosol inhaler shortness of breath or wheezing #18 grams torsemide 20 mg tablet 40 mg PO BID #180 tabs 01/02/23 01/06/23 cephalexin 250 mg tablet 250 mg PO TID 01/06/23 01/06/23 ropinirole 0.5 mg tablet 0.25 mg PO BID 01/06/23 01/06/23 Previous Rx's Medication Instructions Recorded blood-glucose meter (BuildMyMoveTouch #1 ea 11/26/20 Ultra2 Meter kit) sacubitril 24 mg-valsartan 26 mg 1 tab PO BID #90 tabs 03/17/22 tablet (Entresto) aspirin 81 mg tablet,delayed 81 mg PO DAILY #90 tabs 07/11/22 release atorvastatin 80 mg tablet 80 mg PO QPM #90 tabs 07/11/22 cetirizine 10 mg tablet 10 mg PO DAILY #90 tab-caps 07/11/22 fluticasone propionate 50 2 spray intranasal DAILY PRN 07/11/22 mcg/actuation nasal allergy symptoms #16 grams spray,suspension (Flonase Allergy Relief) blood sugar diagnostic (OneTouch #500 ea 10/20/22 Ultra Test strips) lancets (BuildMyMoveTouch UltraSoft #500 ea 10/20/22 Lancets) insulin aspart U-100 100 unit/mL 1 sliding scale dose subcut TID #9 10/22/22 (3 mL) subcutaneous pen SYRGS clopidogrel 75 mg tablet 75 mg PO DAILY #90 tabs 10/30/22 flash glucose scanning reader #1 ea 12/17/22 (FreeStyle Consuelo 14 Day Nora) flash glucose sensor (FreeStyle #6 ea 12/17/22 Consuelo 14 Day Sensor kit) glycopyrrolate 9 mcg-formoterol 2 puff inhalation BID #10.7 grams 12/17/22 4.8 mcg HFA aerosol inhaler (Bevespi Aerosphere) inhalational spacing device #2 ea 12/17/22 (Aerochamber MV spacer) pen needle, diabetic 31 gauge x #360 ea 12/17/2203/17 (BD Ultra-Fine Short Pen Needle) insulin glargine 100 unit/mL (3 25 unit (0.25 mL) subcut QAM #15 mL 01/01/23 mL) subcutaneous pen (Lantus Solostar U-100 Insulin) albuterol sulfate 90 mcg/actuation 2 puff inhalation Q4H PRN 01/02/23 aerosol inhaler shortness of breath or wheezing #18 grams torsemide 20 mg tablet 40 mg PO BID #180 tabs 01/02/23 Allergies Allergy/AdvReac Type Severity Reaction Status Date / Time codeine AdvReac Severe Cardiac Verified 01/06/23 14:02 Dysrythmia indomethacin AdvReac Intermediate Cardiac Verified 01/06/23 14:02 Dysrythmia lisinopril AdvReac cough Verified 01/06/23 14:02 General Stated Complaint: GenMedical BELKIS: 4 Review of Systems All systems reviewed & are unremarkable except as noted in HPI and below Constitutional Constitutional: Denies fever(s) Cardiovascular Cardiovascular: Reports as per HPI Respiratory Respiratory: Reports as per HPI Integumentary/Breasts Skin/Breast: Reports as per HPI PFSH All Active Problems (Updated 01/06/23 @ 17:27 by Herbie Wang MD) Cellulitis of foot, right (Acute) CKD (chronic kidney disease) (Chronic) Chronic anemia (Acute) CHF (congestive heart failure) (Chronic) Elevated troponin (Acute) Pulmonary infiltrate (Acute) Heart failure with reduced ejection fraction (Chronic) Acute kidney injury superimposed on chronic kidney disease (Acute) Chronic respiratory failure with hypoxia (Acute) CKD (chronic kidney disease) stage 4, GFR 15-29 ml/min (Acute) Non-ST elevation [place] (NSTEMI) (Acute ~10/2022) Type 2 diabetes mellitus with retinopathy of both eyes, with long-term current use of insulin (Chronic) Chronic obstructive pulmonary disease (Chronic) O2 dependent on 3L NC Polymyalgia rheumatica (Chronic) Carotid atherosclerosis (Chronic) Traumatic ecchymosis of right foot (Acute) Iron deficiency anemia (Chronic) Essential hypertension (Chronic) GERD (gastroesophageal reflux disease) (Chronic) Pulmonary nodule (Chronic) Nicotine dependence, cigarettes, uncomplicated (Chronic) Annual LDCT Osteoarthritis of hips, bilateral (Chronic) Diabetic nephropathy (Chronic) Ventral hernia (Chronic) Generalized anxiety disorder (Chronic) Benign positional vertigo (Chronic) 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 Father Diabetes Daughter No problems noted. Daughter No problems noted. Daughter No problems noted. Daughter No problems noted. Social History Smoking/Tobacco Use Status: Current-Occasional Tobacco Type: cigarettes Smoking packs per day: 2 Smoking cigarettes per day: 40.0 Years smoked: 59 Smoking pack-years: 118.00 Smoking risk assessment performed?: Yes Alcohol Intake: never Drug use: Never Substance use type: does not use 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 Pets and animals: Yes Pets and animals: cat(s) Current gender identity: female What type of physical activity do you participate in: none Irma/Episcopalian: [employer] Special irma needs: No Do you feel safe at home: Yes Do you feel safe in your relationship?: Yes Additional Social history: Lives alone in apartment at [place]. 4 daughters Exam Const General: cooperative and no acute distress HENMT Mouth: moist mucous membranes Eyes Conjunctivae: normal conjunctivae Sclera: normal sclerae Resp Auscultation: clear to auscultation bilaterally, no rales, no rhonchi and no wheezes Cardio Rate: tachycardic Rhythm: regular rhythm Pulses: posterior tibial pulses present bilaterally GI Palpation: soft, not firm, no guarding, no masses, not rigid and nontender Skin General skin exam: erythema (Right dorsal foot extending to distal lower leg, shallow ulcer dorsal foot) Neuro General: patient alert, patient awake and tone normal Extrem General: edema Laterality: bilateral (1+ up lower legs) and pedal edema Psych Appearance: grossly normal Mental Status: mental status grossly normal Course Vital Signs Vital signs: Vital Signs Temperature 36.8 C 01/06/23 13:52 Pulse 84 01/06/23 13:52 Respiratory Rate 20 01/06/23 13:52 Blood Pressure 115/67 01/06/23 13:52 Pulse Oximetry 96 01/06/23 13:52 Temperature 36.8 C 01/06/23 13:52 Temperature Source Oral 01/06/23 13:52 Pulse 84 01/06/23 13:52 Respiratory Rate 17 01/06/23 15:27 Respiratory Effort Normal 01/06/23 15:27 Respiratory Depth Normal 01/06/23 15:27 Respiratory Pattern Normal 01/06/23 15:27 Blood Pressure 115/67 01/06/23 13:52 Blood Pressure Position Sitting 01/06/23 13:52 Pulse Oximetry 96 01/06/23 13:52 Oxygen Delivery Method Nasal Cannula 01/06/23 13:52 Oxygen Flow Rate 2 01/06/23 13:52 Pain Level 0 01/06/23 13:52 Lab/Test Results Lab/Test Results: Laboratory Tests Range/Units 01/06/23 01/06/23 01/06/23 14:15 14:15 14:15 WBC (4.4-10.8) 10^3/uL 7.49 RBC (3.93-5.22) 10^6/uL 3.40 L Hgb (11.2-15.7) g/dL 9.2 L Hct (36.0-46.0) % 32.6 L MCV (80-95) fL 96 H MCH (27.0-33.0) pg 27.1 MCHC (32.0-36.0) % 28.2 L RDW (11.7-14.6) % 19.1 H Plt Count (130-400) 10^3/uL 171 MPV (8.0-11.0) fL 11.5 H Immature Gran % 0.1 Neutrophils % 92.2 Lymphocytes % 3.9 Monocytes % 3.6 Eosinophils % 0.1 Basophils % 0.1 Nucleated RBC % (0.0-0.3) % 0.0 Absolute Neutrophils (1.2-6.7) 10^3/uL 6.90 H Absolute Lymphocytes (1.2-3.4) 10^3/uL 0.29 L Absolute Monocytes (0.1-0.8) 10^3/uL 0.27 Absolute Eosinophils (0.0-0.7) 10^3/uL 0.01 Absolute Basophils (0.0-0.2) 10^3/uL 0.01 Sodium (136-145) mmol/L 145 Potassium (3.5-5.1) mmol/L 3.9 Chloride (98-107) mmol/L 105 Carbon Dioxide (21.0-32.0) mmol/L 31.3 Anion Gap (3-11) mmol/L 8.7 BUN (7-18) mg/dL 61 H Creatinine (0.55-1.02) mg/dL 2.6 H Est GFR (CKD-EPI 2020) (mL/min/1.73m2) 18.90 Glucose (74-106) mg/dL 141 H Calcium (8.5-10.1) mg/dL 8.9 Total Bilirubin (0.2-1.0) mg/dL 1.0 AST (15-37) U/L 57 H ALT (14-59) U/L 84 H Alkaline Phosphatase (46-116) U/L 95 Troponin I (<or=60) ng/L 67 H* Total Protein (6.4-8.2) g/dL 7.0 Albumin (3.4-5.0) g/dL 3.5
[2023-01-06 16:13] LABS: Source Nasal/Nares
[2023-01-06 16:45] LABS: COVID-19 PCR Negative (Negative)
[2023-01-06 16:48] LABS: Lab Add On Test DONE
[2023-01-06] MEDS: ceFAZolin 1 GM/50 ML BAG IVPB (17:16)
[2023-01-06 17:25] LABS: Procalcitonin < 0.1 ng/mL
[2023-01-06 19:14] LABS: Troponin I 59 ng/L (<or=60)
--- NOTE | 2023-01-06 19:29 | HPE_ITS ---
Date of service: 01/06/23 Time of Service: 19:29 Assessment and Plan Assessment and plan (1) Cellulitis of foot, right: Status: Acute Assessment and plan: will give Meropenem and daptomycin w/ renal adjustment of the meropenem (per [place] antimicrobial guidelines for treatment of diabetic foot cellulitis). Meropenem will cover the anaerobes, the gram negatives and particularly Pseudomonas, while the daptomycin will cover the gram positives. will ask for wound care nurse and surgeon to evaluate in the a.m. and get xray of the foot in the morning. she may need MRI to rule out osteomyelitis. I will ask nursing to be sure that the patient keeps the feet elevated higher than her chest whenever she is not walking. this includes when she is sitting or lying she needs to reduce the edema in the feet. I will also give her furhter iv diuretics but will need to follow her BMP closely as she has had problems w/ worsening azotemia in the past when over diuresed. Professional time spent interviewing and examining patient, discussion of goals of care with hospital team (care management, nursing and consulting professionals) was 60 minutes. (2) CKD (chronic kidney disease): Status: Chronic (3) Chronic anemia: Status: Acute Assessment and plan: stable iron deficiency anemia. She was treated w/ Venofer during her last hospitalization. will monitor. Dr. Mcfadden has ordered iron studies (4) CHF (congestive heart failure): Status: Chronic Assessment and plan: she has chronic HFREF. She was intolerant to aggressive GDT (Jardiance, sp ironolactone and Entresto), this admission we will just try to diurese her to a euvolemic weight and get the edema down while watching her renal function closely (5) Elevated troponin: Status: Acute Assessment and plan: transient elevation; will monitor but no ACS symptoms (6) Pulmonary infiltrate: Status: Acute Assessment and plan: I doubt pneumonia, more likely atelectasis and CHF but will repeat CXR once she has diuresed (7) Acute kidney injury superimposed on chronic kidney disease: Status: Acute Assessment and plan: monitor while diuresing (8) Type 2 diabetes mellitus with retinopathy of both eyes, with long-term current use of insulin: Status: Chronic Assessment and plan: continue home dose of Lantus and use novolog sliding scale insulin sensitive levels but do not cover her HS glucose readings as she is prone to nocturnal hypoglycemia (9) Chronic obstructive pulmonary disease: Status: Chronic Assessment and plan: use albuterol prn, continue Bevespi aerosphere Qualifiers: COPD type: emphysema Emphysema type: centrilobular Qualified Code(s): J43.2 - Centrilobular emphysema (10) Polymyalgia rheumatica: Status: Chronic Assessment and plan: continue home dose of prednisone History of Present Illness History of Present Illness Chief Complaint: Shortness of breath, pedal edema, right foot swelling and redness Narrative: 72-year-old female with a history of oxygen dependent COPD (3 L/min), heart failure with reduced ejection fraction, LVEF 40% with global hypokinesis) CKD stage IV with baseline creatinine 2.5-2.8, type 2 diabetes mellitus on insulin, recently hospitalized at [facility] from 12/17/2022 to 12/26/2022 because of acute on chronic HFrEF he was diuresed and put on goal-directed therapy but became intolerant of this and developed some hypotension and worsening azotemia necessitating discontinuation of her Entresto and spironolactone because of hypoglycemia her Jardiance was also discontinued. She was discharged home back on her home dose of torsemide 40 mg daily which is since been increased to twice daily. She now presents the hospital with increasing bilateral edema of her legs along with redness and pain and swelling in her right foot and an open ulcer on the dorsum of her foot. Initially this had been a blister secondary to peripheral edema and has now become opened up. Upon triage in the emergency department she was afebrile at 36.8 and her heart rate was 84 bpm respiratory rate was 20 and her blood pressure was stable at 115/67. Her evaluation included routine labs including CBC that did not show any leukocytosis white count was 7400. Her iron deficiency anemia was stable with hemoglobin 9.2 g hematocrit 32%. CHEM profile showed her BUN to be 61 creatinine 2.6 which is down from her previous level at 94 3.3. Troponin was mildly elevated 67 with a repeat troponin I of 59. Procalcitonin was less than 0.1. Chest x-ray and venous duplex scan of her legs were performed. Venous duplex showed no evidence of DVT in either lower extremity. Whereas her chest x-ray showed increased interstitial markings of her lungs with chronic fibrotic changes but could not exclude possibility of concomitant pulmonary edema. Patient now was found to have a infiltrate in the right lung base and small bilateral pleural effusions. EKG demonstrated sinus rhythm at a rate of [address] abnormalities in the lateral leads I, aVL, V5, V6. Blood cultures were not obtained while in the emergency department MRSA screen was obtained and patient was started on vancomycin subsequently Zosyn was ordered however this has been discontinued in favor of meropenem and daptomycin. No imaging of her foot was obtained. Patient is now admitted to the hospital for treatment of diabetic cellulitis of her right foot as well as treatment of her acute on chronic HFrEF. Surgical consultation will be obtained regarding opinion for debridement of the right foot wound. Review of Systems Constitutional Constitutional: Reports chills (associated w/ hypoglycemia yesterday), Denies fatigue, Denies fever(s), Denies night sweats, Denies poor appetite and Reports weight gain Eyes Eyes: Reports loss of vision (secondary to catarracts; vision appears blurred all the time) ENT Ears, Nose, Mouth, and Throat: Reports system reviewed and no additional complaints, except as documented Cardiovascular Cardiovascular: Reports chest pain (chest pressure), Reports leg edema, Reports dyspnea and Reports dyspnea on exertion Respiratory Respiratory: Denies change in phlegm color, Denies hemoptysis, Denies excessive phlegm production, Reports dyspnea and Reports dyspnea on exertion Gastrointestinal Gastrointestinal: Reports hematochezia (allegedly some blood w/ wiping her buttocks after BM), Reports loose stools, Denies nausea and Denies vomiting Genitourinary Genitourinary: Denies urinary frequency, Denies urinary incontinence and Reports urinary urgency Musculoskeletal Musculoskeletal: Reports joint swelling (both ankles) and Reports numbness (hands) Integumentary/Breasts Skin/Breast: Reports wounds (dorsum right foot) Neurologic Neurologic: Reports loss of vision (secondary to catarracts; vision appears blurred all the time) and Reports numbness (hands) Psychiatric Psychiatric: Reports difficulty concentrating Endocrine Endocrine: Reports cold intolerance and Denies fatigue Hematologic/Lymphatic Hematologic/Lymphatic: Reports system reviewed and no additional complaints, except as documented Allergic/Immunologic Allergic/Immunologic: Reports system reviewed and no additional complaints, except as documented PFSH All Active Problems Cellulitis of foot, right (Acute) CKD (chronic kidney disease) (Chronic) Chronic anemia (Acute) CHF (congestive heart failure) (Chronic) Elevated troponin (Acute) Pulmonary infiltrate (Acute) Heart failure with reduced ejection fraction (Chronic) Acute kidney injury superimposed on chronic kidney disease (Acute) Chronic respiratory failure with hypoxia (Acute) CKD (chronic kidney disease) stage 4, GFR 15-29 ml/min (Acute) Non-ST elevation PR (NSTEMI) (Acute ~10/2022) Type 2 diabetes mellitus with retinopathy of both eyes, with long-term current use of insulin (Chronic) Chronic obstructive pulmonary disease (Chronic) O2 dependent on 3L NC Polymyalgia rheumatica (Chronic) Carotid atherosclerosis (Chronic) Traumatic ecchymosis of right foot (Acute) Iron deficiency anemia (Chronic) Essential hypertension (Chronic) GERD (gastroesophageal reflux disease) (Chronic) Pulmonary nodule (Chronic) Nicotine dependence, cigarettes, uncomplicated (Chronic) Annual LDCT Osteoarthritis of hips, bilateral (Chronic) Diabetic nephropathy (Chronic) Ventral hernia (Chronic) Generalized anxiety disorder (Chronic) Benign positional vertigo (Chronic) 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 Father Diabetes Daughter No problems noted. Daughter No problems noted. Daughter No problems noted. Daughter No problems noted. 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 4 daughters Meds Allergies and Home Medications Allergies Allergy/AdvReac Type Severity Reaction Status Date / Time codeine AdvReac Severe Cardiac Verified 01/06/23 14:02 Dysrythmia indomethacin AdvReac Intermediate Cardiac Verified 01/06/23 14:02 Dysrythmia lisinopril AdvReac cough Verified 01/06/23 14:02 Home Medications Medication Instructions Recorded Confirmed Type blood-glucose meter ([employer]Touch #1 ea 11/26/20 01/01/23 Rx Ultra2 Meter kit) cholecalciferol (vitamin D3) 25 25 mcg PO DAILY 08/30/21 01/06/23 History mcg (1,000 unit) capsule (Vitamin D3) sacubitril 24 mg-valsartan 26 mg 1 tab PO BID #90 tabs 03/17/22 01/06/23 Rx tablet (Entresto) docusate sodium 100 mg capsule 100 mg PO DAILY 07/10/22 01/06/23 History aspirin 81 mg tablet,delayed 81 mg PO DAILY #90 tabs 07/11/22 01/06/23 Rx release atorvastatin 80 mg tablet 80 mg PO QPM #90 tabs 07/11/22 01/06/23 Rx cetirizine 10 mg tablet 10 mg PO DAILY #90 tab-caps 07/11/22 01/06/23 Rx fluticasone propionate 50 2 spray intranasal DAILY PRN 07/11/22 01/06/23 Rx mcg/actuation nasal allergy symptoms #16 grams spray,suspension (Flonase Allergy Relief) blood sugar diagnostic (OneTouch #500 ea 10/20/22 01/01/23 Rx Ultra Test strips) lancets ([employer]Touch UltraSoft #500 ea 10/20/22 01/01/23 Rx Lancets) insulin aspart U-100 100 unit/mL 1 sliding scale dose subcut TID #9 10/22/22 01/06/23 Rx (3 mL) subcutaneous pen SYRGS clopidogrel 75 mg tablet 75 mg PO DAILY #90 tabs 10/30/22 01/06/23 Rx prednisone 10 mg tablet 10 mg PO DAILY 11/14/22 01/06/23 History flash glucose scanning reader #1 ea 12/17/22 01/01/23 Rx (FreeStyle Consuelo 14 Day [place]) flash glucose sensor (FreeStyle #6 ea 12/17/22 01/01/23 Rx Consuelo 14 Day Sensor kit) glycopyrrolate 9 mcg-formoterol 2 puff inhalation BID #10.7 grams 12/17/22 01/06/23 Rx 4.8 mcg HFA aerosol inhaler (Bevespi Aerosphere) inhalational spacing device #2 ea 12/17/22 01/01/23 Rx (Aerochamber MV spacer) pen needle, diabetic 31 gauge x #360 ea 12/17/22 01/01/23 Rx 5/16 (BD Ultra-Fine Short Pen Needle) prednisone 2.5 mg tablet 5 mg PO DAILY 12/17/22 01/06/23 History insulin glargine 100 unit/mL (3 25 unit (0.25 mL) subcut QAM #15 mL 01/01/23 01/06/23 Rx mL) subcutaneous pen (Lantus Solostar U-100 Insulin) albuterol sulfate 90 mcg/actuation 2 puff inhalation Q4H PRN 01/02/23 01/06/23 Rx aerosol inhaler shortness of breath or wheezing #18 grams torsemide 20 mg tablet 40 mg PO BID #180 tabs 01/02/23 01/06/23 Rx cephalexin 250 mg tablet 250 mg PO TID 01/06/23 01/06/23 History ropinirole 0.5 mg tablet 0.25 mg PO BID 01/06/23 01/06/23 History Exam Const General: cooperative, comfortable, no acute distress and well developed Nutritional Appearance: average body habitus Orientation: alert, awake and oriented x3 HENMT Head: normal to inspection Face and sinus: normal facial exam Mouth: oral mucosae normal Teeth and gingiva: dentures Throat: posterior oropharynx normal Eyes General: appearance normal, both eyes and all related structures Alignment and Position: alignment normal Periorbital: periorbital findings normal Eyelids: eyelids normal Conjunctivae: conjunctivae normal Sclera: sclerae normal Cornea: corneas normal Pupils: PERRL EOM: EOM intact bilaterally Direct ophthalmoscopy: normal light reflex and other (Bilateral cataracts) Neck Neck: normal visual inspection, full ROM, no lymphadenopathy, trachea midline and supple Carotids: delayed carotid upstroke Lymphatic: no lymphadenopathy noted Resp Effort & Inspection: normal respiratory effort and able to speak in complete sentences Auscultation: no bronchovesicular breath sounds, rales bilaterally at the base and no wheezes Cardio Jugular venous pressure: no JVD Palpation: normal PMI Rate: regular rate Rhythm: regular rhythm Bruits: no abdominal aortic bruits and no carotid bruits Pulses: posterior tibial pulses present bilaterally 1+ and diminished and dorsalis pedis present bilaterally 1+ and diminished GI Inspection: normal to inspection Palpation: soft and no hepatosplenomegaly Percussion: normal to percussion Auscultation: normal bowel sounds Back/Spine/Pelvis Back: no CVA tenderness Skin General skin exam: erythema (Dorsum of right foot circumferential involving all the toes up to the ankle) Wounds: wounds noted ulceration right dorsal foot open and with surrounding erythema Hair: normal Neuro General: patient alert, patient awake and patient oriented x3 Cranial Nerves: PERRL, accommodation normal, EOM intact bilaterally, no nystagmus, facial strength normal and tongue midline Cognition: normal cognition Speech: speech normal Motor: muscle tone normal throughout Sensory Exam: lower extremity (decreased sensation to light touch over both feet) Extrem General: full ROM Right lower extremity: edema Details: pitting and 2+ and foot Details: edema Location: of the dorsal foot and vascular exam Details: abnormal capillary refill; no cyanosis; abnormal capillary refill Left lower extremity: edema Details: pitting and 2+ Psych Appearance: grossly normal Mental Status: mental status grossly normal Speech and Movement: speech and movement normal Mood: congruent mood Affect: normal affect Attitude: cooperative Thought Process: normal Thought Content: normal Insight: insight good Judgment: judgment good Results Labs 01/06/23 14:15 01/06/23 14:15 Labs: Laboratory Results - last 24 hr 01/06/23 01/06/23 01/06/23 14:15 14:15 14:15 WBC 7.49 RBC 3.40 L Hgb 9.2 L Hct 32.6 L MCV 96 H MCH 27.1 MCHC 28.2 L RDW 19.1 H Plt Count 171 MPV 11.5 H Immature Gran % 0.1 Neutrophils % 92.2 Lymphocytes % 3.9 Monocytes % 3.6 Eosinophils % 0.1 Basophils % 0.1 Nucleated RBC % 0.0 Absolute Neutrophils 6.90 H Absolute Lymphocytes 0.29 L Absolute Monocytes 0.27 Absolute Eosinophils 0.01 Absolute Basophils 0.01 VBG Lactate Sodium 145 Potassium 3.9 Chloride 105 Carbon Dioxide 31.3 Anion Gap 8.7 BUN 61 H Creatinine 2.6 H Est GFR (CKD-EPI 2020) 18.90 Glucose 141 H Calcium 8.9 Total Bilirubin 1.0 AST 57 H ALT 84 H Alkaline Phosphatase 95 Troponin I 67 H* Total Protein 7.0 Albumin 3.5 Procalcitonin COVID-19 Source SARS-CoV-2 (PCR) Add-On Test Request 01/06/23 01/06/23 01/06/23 16:05 16:45 16:45 WBC RBC Hgb Hct MCV MCH MCHC RDW Plt Count MPV Immature Gran % Neutrophils % Lymphocytes % Monocytes % Eosinophils % Basophils % Nucleated RBC % Absolute Neutrophils Absolute Lymphocytes Absolute Monocytes Absolute Eosinophils Absolute Basophils VBG Lactate 1.0 Sodium Potassium Chloride Carbon Dioxide Anion Gap BUN Creatinine Est GFR (CKD-EPI 2020) Glucose Calcium Total Bilirubin AST ALT Alkaline Phosphatase Troponin I Total Protein Albumin Procalcitonin COVID-19 Source Nasal/Nares SARS-CoV-2 (PCR) Negative Add-On Test Request DONE 01/06/23 01/06/23 16:45 18:47 WBC RBC Hgb Hct MCV MCH MCHC RDW Plt Count MPV Immature Gran % Neutrophils % Lymphocytes % Monocytes % Eosinophils % Basophils % Nucleated RBC % Absolute Neutrophils Absolute Lymphocytes Absolute Monocytes Absolute Eosinophils Absolute Basophils VBG Lactate Sodium Potassium Chloride Carbon Dioxide Anion Gap BUN Creatinine Est GFR (CKD-EPI 2020) Glucose Calcium Total Bilirubin AST ALT Alkaline Phosphatase Troponin I 59 Total Protein Albumin Procalcitonin < 0.1 COVID-19 Source SARS-CoV-2 (PCR) Add-On Test Request Last Vital Signs Temp 36.8 C 01/06/23 18:20 Pulse 79 01/06/23 18:20 Resp 20 01/06/23 18:20 BP 123/75 01/06/23 18:20 Pulse Ox 97 01/06/23 18:20 Time Spent Time spent with Patient: 55-74 minutes Time was spent: preparing to see the patient(eg.review tests), obtaining and/or reviewing separately otained hiistory, ordering medications,tests, procedures, referring, communicating with other health complex care nurse practitioner (Dr. Herbie Wang, ED attending), indepentently interpreting results, counseling the patient and care coordination
[2023-01-06 19:32] LABS: Lab Add On Test DONE
[2023-01-06 19:43] LABS: Iron 23 ug/dL (50-170)
[2023-01-06 20:11] LABS: Ferritin 114 ng/mL (8-252); Folate 17.8 ng/mL (8.6-20.0); Vitamin B12 684 pg/mL (193-986)
[2023-01-06 20:27] LABS: Lab Add On Test DONE
[2023-01-06 20:33] LABS: C-Reactive Protein 0.54 mg/dL (0.0-0.3)
[2023-01-06 20:38] LABS: Creatine Kinase 57 U/L (26-192)
[2023-01-06] MEDS: Heparin 5,000 UNITS/ML VIAL 5000 UNITS SC (21:26)
[2023-01-06] MEDS: rOPINIRole 0.5 MG TAB 0.25 MG PO (21:26)
--- NOTE | 2023-01-06 22:13 | SCONE_ITS ---
Date of service: 01/06/23 Time of Service: 18:30 Assessment and Plan Assessment and plan (1) Cellulitis of foot, right: Status: Acute Assessment and plan: abx: Cubicin and Vanco Blood cultures were not done prior to starting IV antibiotics Local wound care We will see how she does clinically after antibiotics started. If there does not appear to be resolution of symptoms and consider MR Mika to rule out osteo-. She most assuredly has some type of peripheral artery disease. Once the pain and the swelling have improved we will do ABIs. Continued medical management of her congestive heart failure on her diabetes per the hospitalist service. (2) CKD (chronic kidney disease): Status: Chronic (3) Chronic anemia: Status: Acute (4) CHF (congestive heart failure): Status: Chronic (5) Pulmonary infiltrate: Status: Acute (6) Heart failure with reduced ejection fraction: Status: Chronic (7) Acute kidney injury superimposed on chronic kidney disease: Status: Acute (8) Chronic respiratory failure with hypoxia: Status: Acute (9) CKD (chronic kidney disease) stage 4, GFR 15-29 ml/min: Status: Acute (10) Non-ST elevation [place] (NSTEMI): Status: Acute (11) Type 2 diabetes mellitus with retinopathy of both eyes, with long-term current use of insulin: Status: Chronic (12) Chronic obstructive pulmonary disease: Status: Chronic Qualifiers: COPD type: emphysema Emphysema type: centrilobular Qualified Code(s): J43.2 - Centrilobular emphysema (13) Polymyalgia rheumatica: Status: Chronic (14) Carotid atherosclerosis: Status: Chronic (15) Iron deficiency anemia: Status: Chronic (16) Essential hypertension: Status: Chronic (17) GERD (gastroesophageal reflux disease): Status: Chronic (18) Pulmonary nodule: Status: Chronic (19) Nicotine dependence, cigarettes, uncomplicated: Status: Chronic (20) Osteoarthritis of hips, bilateral: Status: Chronic Qualifiers: Osteoarthritis type: primary Qualified Code(s): M16.0 - Bilateral primary osteoarthritis of hip (21) Diabetic nephropathy: Status: Chronic (22) Ventral hernia: Status: Chronic (23) Generalized anxiety disorder: Status: Chronic (24) Restless leg syndrome: Status: Chronic (25) CVA (cerebral vascular accident): History of Present Illness Narrative: Patient is well-known to the surgical service. She has a longstanding history of diabetes and heart disease and an smoking along with mental illness She has a history of poorly controlled diabetes mellitus. She was discharged to [facility]hab on 12/26 after being in the hospital for a prolonged period of time with consequences from congestive heart failure. She was sent to the ER today by her rehab facility for the swollen cellulitis and persistent swelling in her lower extremities. They obtained a venous ultrasound which was negative for blood clot.. She has not had ABIs. Her legs are so swollen that you cannot palpate pulses today. She has an extensive history of smoking and poorly controlled diabetes is at high risk for peripheral arterial disease At this time there does not appear to be a discrete abscess. Skin cultures and blood cultures were obtained. I did review the case with Dr. Mcgee, we do need polymicrobial coverage for her. I am not aware of a history of MRSA but she has been hospitalized multiple times and is high risk for MRSA. She will be covered with Cubicin and Vanco. Review of Systems All systems reviewed & are unremarkable except as noted in HPI and below PFSH All Active Problems Cellulitis of foot, right (Acute) CKD (chronic kidney disease) (Chronic) Chronic anemia (Acute) CHF (congestive heart failure) (Chronic) Elevated troponin (Acute) Pulmonary infiltrate (Acute) Heart failure with reduced ejection fraction (Chronic) Acute kidney injury superimposed on chronic kidney disease (Acute) Chronic respiratory failure with hypoxia (Acute) CKD (chronic kidney disease) stage 4, GFR 15-29 ml/min (Acute) Non-ST elevation [place] (NSTEMI) (Acute ~10/2022) Type 2 diabetes mellitus with retinopathy of both eyes, with long-term current use of insulin (Chronic) Chronic obstructive pulmonary disease (Chronic) O2 dependent on 3L NC Polymyalgia rheumatica (Chronic) Carotid atherosclerosis (Chronic) Traumatic ecchymosis of right foot (Acute) Iron deficiency anemia (Chronic) Essential hypertension (Chronic) GERD (gastroesophageal reflux disease) (Chronic) Pulmonary nodule (Chronic) Nicotine dependence, cigarettes, uncomplicated (Chronic) Annual LDCT Osteoarthritis of hips, bilateral (Chronic) Diabetic nephropathy (Chronic) Ventral hernia (Chronic) Generalized anxiety disorder (Chronic) Benign positional vertigo (Chronic) 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 Father Diabetes Daughter No problems noted. Daughter No problems noted. Daughter No problems noted. Daughter No problems noted. 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 4 daughters Exam Extrem Other: edema/erythema of the right lower extremity and foot. Patient has neuropathy and is generally insensate. There is sloughing of the epidermis on the top of the foot. There are otherwise no open areas. This was cultured. peripheral pulses are not palpable secondary to the edema Results Last Vital Signs Temp 36.8 C 01/06/23 18:20 Pulse 102 H 01/06/23 19:46 Resp 20 01/06/23 18:20 BP 123/75 01/06/23 18:20 Pulse Ox 97 01/06/23 18:20 Labs 01/06/23 14:15 01/06/23 14:15 Labs: Laboratory Results - last 24 hr 01/06/23 01/06/23 01/06/23 14:15 14:15 14:15 WBC 7.49 RBC 3.40 L Hgb 9.2 L Hct 32.6 L MCV 96 H MCH 27.1 MCHC 28.2 L RDW 19.1 H Plt Count 171 MPV 11.5 H Immature Gran % 0.1 Neutrophils % 92.2 Lymphocytes % 3.9 Monocytes % 3.6 Eosinophils % 0.1 Basophils % 0.1 Nucleated RBC % 0.0 Absolute Neutrophils 6.90 H Absolute Lymphocytes 0.29 L Absolute Monocytes 0.27 Absolute Eosinophils 0.01 Absolute Basophils 0.01 VBG Lactate Sodium 145 Potassium 3.9 Chloride 105 Carbon Dioxide 31.3 Anion Gap 8.7 BUN 61 H Creatinine 2.6 H Est GFR (CKD-EPI 2020) 18.90 Glucose 141 H Calcium 8.9 Iron Ferritin Total Bilirubin 1.0 AST 57 H ALT 84 H Alkaline Phosphatase 95 Creatine Kinase Troponin I 67 H* C-Reactive Protein Total Protein 7.0 Albumin 3.5 Vitamin B12 Folate Procalcitonin COVID-19 Source SARS-CoV-2 (PCR) Add-On Test Request 01/06/23 01/06/23 01/06/23 16:05 16:45 16:45 WBC RBC Hgb Hct MCV MCH MCHC RDW Plt Count MPV Immature Gran % Neutrophils % Lymphocytes % Monocytes % Eosinophils % Basophils % Nucleated RBC % Absolute Neutrophils Absolute Lymphocytes Absolute Monocytes Absolute Eosinophils Absolute Basophils VBG Lactate 1.0 Sodium Potassium Chloride Carbon Dioxide Anion Gap BUN Creatinine Est GFR (CKD-EPI 2020) Glucose Calcium Iron Ferritin Total Bilirubin AST ALT Alkaline Phosphatase Creatine Kinase Troponin I C-Reactive Protein Total Protein Albumin Vitamin B12 Folate Procalcitonin COVID-19 Source Nasal/Nares SARS-CoV-2 (PCR) Negative Add-On Test Request DONE 01/06/23 01/06/23 01/06/23 16:45 18:47 18:47 WBC RBC Hgb Hct MCV MCH MCHC RDW Plt Count MPV Immature Gran % Neutrophils % Lymphocytes % Monocytes % Eosinophils % Basophils % Nucleated RBC % Absolute Neutrophils Absolute Lymphocytes Absolute Monocytes Absolute Eosinophils Absolute Basophils VBG Lactate Sodium Potassium Chloride Carbon Dioxide Anion Gap BUN Creatinine Est GFR (CKD-EPI 2020) Glucose Calcium Iron Ferritin Total Bilirubin AST ALT Alkaline Phosphatase Creatine Kinase Troponin I 59 C-Reactive Protein Total Protein Albumin Vitamin B12 Folate Procalcitonin < 0.1 COVID-19 Source SARS-CoV-2 (PCR) Add-On Test Request DONE 01/06/23 01/06/23 01/06/23 18:47 18:47 18:47 WBC RBC Hgb Hct MCV MCH MCHC RDW Plt Count MPV Immature Gran % Neutrophils % Lymphocytes % Monocytes % Eosinophils % Basophils % Nucleated RBC % Absolute Neutrophils Absolute Lymphocytes Absolute Monocytes Absolute Eosinophils Absolute Basophils VBG Lactate Sodium Potassium Chloride Carbon Dioxide Anion Gap BUN Creatinine Est GFR (CKD-EPI 2020) Glucose Calcium Iron 23 L Ferritin 114 Total Bilirubin AST ALT Alkaline Phosphatase Creatine Kinase Troponin I C-Reactive Protein 0.54 H Total Protein Albumin Vitamin B12 684 Folate 17.8 Cancelled Procalcitonin COVID-19 Source SARS-CoV-2 (PCR) Add-On Test Request 01/06/23 01/06/23 18:47 18:47 WBC RBC Hgb Hct MCV MCH MCHC RDW Plt Count MPV Immature Gran % Neutrophils % Lymphocytes % Monocytes % Eosinophils % Basophils % Nucleated RBC % Absolute Neutrophils Absolute Lymphocytes Absolute Monocytes Absolute Eosinophils Absolute Basophils VBG Lactate Sodium Potassium Chloride Carbon Dioxide Anion Gap BUN Creatinine Est GFR (CKD-EPI 2020) Glucose Calcium Iron Ferritin Total Bilirubin AST ALT Alkaline Phosphatase Creatine Kinase 57 Troponin I C-Reactive Protein Total Protein Albumin Vitamin B12 Folate Procalcitonin COVID-19 Source SARS-CoV-2 (PCR) Add-On Test Request DONE
[2023-01-06] MEDS: Bumetanide 1 MG/4 ML VIAL 4 MG IVP (22:20)
--- NOTE | 2023-01-06 22:21 | DI.VRAD_ITS ---
PROCEDURE INFORMATION: Exam: XR Right Foot Exam date and time: 01/06/2023 9:48 PM Age: 72 years old Clinical indication: Pain; Patient HX: Cellulitis right foot; R/O osteomyelitis TECHNIQUE: Imaging protocol: Radiologic exam of the right foot. Views: 1 or 2 views. COMPARISON: CR XR FOOT RT COMPLETE 12/30/2022 9:03 PM FINDINGS: Bones/joints: No osseous destruction or production. Small calcaneal spur along the plantar fascia. No acute fracture or dislocation Soft tissues: Moderate to severe swelling of the dorsum of the foot IMPRESSION: Moderate to severe swelling in the dorsum of the foot. No radiographic evidence for osteomyelitis Dictated and Authenticated by: Benito Hebert MD. Ordering:[facility] Ekaterina Causey MD
[2023-01-06 22:39] LABS: Troponin I 61 ng/L (<or=60)
[2023-01-07] VITALS (10 sets, daily range): BP systolic 109–153; BP diastolic 62–90; PULSE 77–108; RESP 18–20; TEMP 36.4–36.9; O2SAT 94–97
[2023-01-07 06:26] LABS: Abs Immature Grans 0.02 10^3/uL (0.0-0.06); Absolute Basophil Count 0.02 10^3/uL (0.0-0.2); Absolute Eosinophil Count 0.08 10^3/uL (0.0-0.7); Absolute Lymphocyte Count 0.88 10^3/uL (1.2-3.4); Absolute Monocyte Count 0.79 10^3/uL (0.1-0.8); Absolute Neutrophil Count 5.92 10^3/uL (1.2-6.7); Basophils % 0.3; Immature Grans % 0.3; Lymphocytes % 11.4; MCHC 28.1 % (32.0-36.0); MCV 96 fL (80-95); MPV 10.9 fL (8.0-11.0); Monocytes % 10.2; Neutrophils % 76.8; Platelet Count 166 10^3/uL (130-400); RBC 3.33 10^6/uL (3.93-5.22); RDW-SD 66.5 fL; WBC 7.71 10^3/uL (4.4-10.8)
[2023-01-07 06:41] LABS: Anion Gap 7.7 mmol/L (3-11); BUN 60 mg/dL (7-18); CO2 33.3 mmol/L (21.0-32.0); CREATININE 2.5 mg/dL (0.55-1.02); Calcium 8.9 mg/dL (8.5-10.1); Chloride 107 mmol/L (98-107); Estimated GFR 19.81 (mL/min/1.73m2); Magnesium 2.1 mg/dL (1.8-2.4); Potassium 3.2 mmol/L (3.5-5.1); Sodium 148 mmol/L (136-145)
[2023-01-07 06:43] LABS: Glucose 48 mg/dL (74-106)
[2023-01-07] MEDS: rOPINIRole 0.5 MG TAB 0.25 MG PO ×2 (08:46→21:33)
[2023-01-07] MEDS: Cetirizine 10 MG TAB PO (08:49)
[2023-01-07] MEDS: Clopidogrel 75 MG TAB PO (08:49)
[2023-01-07] MEDS: Cholecalciferol (Vitamin D3) 1,000 UNIT TAB 1000 UNITS PO (08:49)
[2023-01-07] MEDS: Aspirin E.C. 81 MG TABEC PO (08:49)
[2023-01-07 08:50] LABS: Total Iron Binding Capacity 318 ug/dL (250-450)
[2023-01-07] MEDS: predniSONE 10 MG TAB PO (08:50)
[2023-01-07] MEDS: Sacubitril/Valsartan 24 mg/26 mg TAB 1 EACH PO ×2 (08:50→21:33)
[2023-01-07] MEDS: Docusate Sodium 100 MG CAP PO (08:50)
[2023-01-07] MEDS: Bumetanide 1 MG/4 ML VIAL 4 MG IVP ×2 (08:56→23:09)
[2023-01-07] MEDS: Budesonide/Formoterol 80/4.5 6.9 GM 60 PUFF INH IH ×2 (09:00→19:52)
--- NOTE | 2023-01-07 09:30 | PT.INDS ---
Date of service: 01/07/23 PT Notes Visit Reasons: Cellulitis Right Foot, CHF Exacerbation Physical Therapy Inpatient Discharge Summary Date: 01/07/2023 Dates of Service: 12/22/2022 through 12/26/2022 This is a clinical summary of care provided for the duration of dates listed above. No charge was made in the completion of this documentation. Referring Doctor:? Padilla Tobar MD PT Orders: PT CONSULT: Exacerbation Chronic Cond Precautions: Activity as tolerated.? On 2 L of oxygen via NC. Patient Profile/Admitting Diagnosis:? Patient is a 72-year-old female who presented to the ED on 12/17/2022 with generalized weakness due to increasing SOB, wekaness,? and diarrhea.? Patient is diagnosed with acute on chronic heart failure with decreased ejection fraction, elevated troponin, ventricular tachycardia,? chronic kidney disease,? type 2 diabetes mellitus, COPD, polymyalgia rheumatica and? JARED. PMHX: All Active Problems?(Updated 12/18/22 @ 00:09 by Padilla Tobar MD) Elevated troponin I level (Acute) Acute on chronic HFrEF (heart failure with reduced ejection fraction) (Acute) Acute kidney injury superimposed on chronic kidney disease (Acute) Chronic respiratory failure with hypoxia (Acute) CKD (chronic kidney disease) stage 4, GFR 15-29 ml/min (Acute) Non-ST elevation [place] (NSTEMI) (Acute ~10/2022) Type 2 diabetes mellitus with retinopathy of both eyes, with long-term current use of insulin (Chronic) CVA (cerebral vascular accident) (Acute ~12/2021) Heart failure with reduced ejection fraction (Chronic) Chronic obstructive pulmonary disease (Chronic) O2 dependent on 3L NC Polymyalgia rheumatica (Chronic) Carotid atherosclerosis (Chronic) Essential hypertension (Chronic) GERD (gastroesophageal reflux disease) (Chronic) Pulmonary nodule (Chronic) Nicotine dependence, cigarettes, uncomplicated (Chronic) Annual LDCTOsteoarthritis of hips, bilateral (Chronic) Diabetic nephropathy (Chronic) Ventral hernia (Chronic) Generalized anxiety disorder (Chronic) Benign positional vertigo (Chronic) 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 COVID-19 virus infection (~10/2022) Iron deficiency anemia Palliative care patient Surgical History? History of esophagogastroduodenoscopy (EGD) (07/30/18) S/P cholecystectomy S/P colonoscopy (07/30/18) S/P tonsillectomy Social History/Home Situation: Patient lives alone at the [address] here in [place] with a ramp to enter.? She now has a pole installed close to her bed to facilitate safe transfers and short distance walking.? Home is much more handicap-accessible with assistance from [facility]. ? She has a basement but she stresses that she does not need to go down as she has everything she needs on the main floor of the apartment.? Modified independent with all mobility ADL performance using FWW.? On chronic oxygen supplementation using 2L/min.? Hoping to get meals on wheels back. Equipment Owned/DME: FWW, 4WW Subjective: NT. See most recent [employer] notes. Objective: General Observation:?NT. See most recent [employer] TR[employer]IVER notes. Mental Status: NT. See most recent V[employer] TR[employer]IVER notes. Pain: NT. See most recent V[employer]UUM TR[employer] DRIVER notes. Vital Signs: NT. See most recent [employer] TR[employer]IVER notes. ROM: Right Upper Extremity: ? Shoulder Flexion WFL. Shoulder abduction WFL. Elbow flexion WFL. Wrist flexion WFL. Opening and closing of hand WFL. Left Upper Extremity:? Shoulder Flexion allows only up to 90 degrees. Shoulder abduction allows only up to 80 degrees. Elbow flexion WFL. Wrist flexion WFL. Opening and closing of hand WFL. Right Lower Extremity: Hip flexion WFL. Hip abduction WFL. Knee flexion WFL. Ankle dorsiflexion to neutral only. Ankle plantarflexion WFL. Left Lower Extremity: Hip flexion unable to bend beyond 90 due to left hip pain. Hip abduction WFL. Knee flexion WFL. Ankle dorsiflexion to neutral only. Ankle plantarflexion WFL. Strength: Right Upper Extremity: Shoulder flexors 4-/5. Shoulder abductors 4-/5. Elbow flexors 4/5. Elbow extensors 4/5. [employer] weak but functional. Left Upper Extremity: Shoulder flexors 3-/5. Shoulder abductors 3-/5. Elbow flexors 4-/5. Elbow extensors 4-/5. [employer] weak but functional. Right Lower Extremity: Hip flexors 3+/5. Hip abductors 4-/5. Knee flexors 4/5. Knee extensors 4-/5. Ankle dorsiflexors 3-/5. Ankle plantarflexors 4-/5. Left Lower Extremity:Hip flexors 3-/5. Hip abductors 3-/5. Knee flexors 3/5. Knee extensors 3/5. Ankle dorsiflexors 3-/5. Ankle plantarflexors 4/5. Sensation: Intact as to pain and pressure on bilateral lower extremities BED MOBILITY/TRANSFERS? Supine-sit: I? Sit-stand: S? Stand-sit: S ? GAIT? Assistive Device: FWW ? Weight bearing: Full Assist: SBA ? Distance: 15' x5? Deviation: Slow pacing, seated rests throughout for energy conservation, SOB, on 2L O2 Balance: Static Sitting: Normal Dynamic Sitting: Normal Static Standing: Fair Dynamic Standing: Fair Assessment: Patient is a 72-year-old female who presented to the ED on 12/17/2022 with generalized weakness due to increasing SOB, wekaness,? and diarrhea.? Patient is diagnosed with acute on chronic heart failure with decreased ejection fraction, elevated troponin, ventricular tachycardia,? chronic kidney disease,? type 2 diabetes mellitus, COPD, polymyalgia rheumatica and? JARED. Patient presents with clinical signs and symptoms consistent with current/admitting diagnoses that have resulted to mobility limitations and gait instability as demonstrated by the following impairment level findings: 1.? Decreased strength to B LE major muscle groups (L more affected than R due to previous CVA) 2.? Impaired standing balance 3.? Impaired activity tolerance 4.? Limitation of joint range of motion in left shoulder and left hip (L more affected than R due to previous CVA) 5.? Shortness of breath Impairments are contributing to the following functional limitations: 1.? Inability to safely ambulate without assistive device 2.? Increase completion time for mobility ADL performance 3.? Increased fall risk Goals: Goals X1 week 1. Supine-Sit independent MET 2. Sit-Supine independent NOT MET 3. Sit-Stand independent NOT MET 4. Stand-Sit independent NOT MET 5. Bed-Chair independent NOT MET 6. Chair-Bed independent NOT MET 7. Independent gait on level surface with use of least restrictive device for at least 50 feet without report of pain nor dyspnea NOT MET 8. Good static and dynamic standing balance/tolerance NOT MET DISCHARGE RECOMMENDATIONS: [] ? Home with no services [] [X] ? Home with services.? Home when medically cleared by hospitalist.? Recommend home health PT services in order to progress mobility level using least restrictive assistive ambulatory device, assess home safety, identify additional equipment needs, and establish a functional maintenance program that will increase ability of patient to remain at home. [] ? Home with outpatient PT [] [] ? SNF for continued rehabilitation [] [] ? Furnace Room Supervisor Care [] [] ? SNF versus LTC based on ability to participate and progress [] TREATMENT CODE/TIME: OH Thank you for the opportunity to participate in the care of this patient. Nahed Miller PT, DPT, CLT [facility] [place], [place]
--- NOTE | 2023-01-07 09:52 | NUR.NOTE ---
Nursing Note: per off-going night nurse, pt's blood sugar 48 at shift change. Nurse states she gave sara crackers and orange juice just prior to shift change report. Following this, pt blood sugar check reassessed and 104. Custard also provided following pt inability to eat crackers d/t denture complication. Breakfast tray at bedside. However, pt refusing to eat pancakes, stating they're gross. Omelette provided from dietary and pt more amenable to eating. Charge nurse notified.
--- NOTE | 2023-01-07 10:09 | W.INDIABCONS ---
Date of service: 01/07/23 Time of Service: 10:09 Diabetes Inpatient Consult Reason for Visit: dm2 DESCRIPTION/ASSESSMENT: Beth was admitted with cellulitis of right foot. PMH: Dm2, COPD, CKD, CHF. BMi indicates obesity. Was hospitalized in mid December/education given at that time. Most recent A1C: 6.3% and at goal. Dm meds include glargine- 25 units HS, aspart at meals sliding scale. Hypoglycemia noted/treated at admission. WIll provide education if needed once Beth more comfortable and ready for discharge. Time Spent in Nutritional Counseling and Treatment: 0
[2023-01-07] MEDS: Potassium Chloride 20 MEQ TABCR 40 MEQ PO (10:52)
[2023-01-07] MEDS: predniSONE 5 MG TAB 2.5 MG PO (12:31)
[2023-01-07] MEDS: Insulin NPH-Human 300 UNITS/3 ML PEN 12 UNIT SC (12:32)
[2023-01-07] MEDS: Insulin Aspart 300 UNITS/3 ML PEN SC (12:36)
[2023-01-07] MEDS: Heparin 5,000 UNITS/ML VIAL 5000 UNITS SC ×2 (12:37→22:03)
[2023-01-07] MEDS: Potassium Chloride 20 MEQ TABCR PO ×2 (13:40→21:32)
--- NOTE | 2023-01-07 15:40 | PGE_ITS ---
Date of Service Date of service: 01/07/23 Time of Service: 15:40 Assessment and Plan Assessment and plan (1) Cellulitis of foot, right: Status: Acute Assessment and plan: continue Meropenem and Daptomycin. xray of right foot showed soft tissue swelling but no radiologic evidence of osteomyelitis. If not improving then will get MRI of foot. continue to monitor clinically and w/ inflammatory markeres. She needs to keep legs elevated, use VINAY wraps and continue diuretics Professional time spent interviewing and examining patient, discussion of goals of care with hospital team (care management, nursing and consulting professionals) was 30 minutes. (2) CKD (chronic kidney disease): Status: Chronic Assessment and plan: Stable continue to monitor while she is receiving diuretics (3) Chronic anemia: Status: Acute Assessment and plan: stable iron deficiency anemia. She was treated w/ Venofer during her last hospitalization. will monitor. (4) CHF (congestive heart failure): Status: Chronic Assessment and plan: she has chronic HFREF. She was intolerant to aggressive GDT (Jardiance, spironolactone and Entresto), this admission we will just try to diurese her to a euvolemic weight and get the edema down while watching her renal function c losely; continue IV bumex (5) Elevated troponin: Status: Acute Assessment and plan: transient elevation; will monitor but no ACS symptoms (6) Pulmonary infiltrate: Status: Acute Assessment and plan: I doubt pneumonia, more likely atelectasis and CHF but will repeat CXR once she has diuresed (7) Acute kidney injury superimposed on chronic kidney disease: Status: Acute Assessment and plan: monitor while diuresing (8) Type 2 diabetes mellitus with retinopathy of both eyes, with long-term current use of insulin: Status: Chronic Assessment and plan: recurrent hypoglycemia. Patient did not get any novolog coverage last night. Therefore, I think that this is her Lantus and lack of CHO at bedtime. I have written for her to get at least 60 gm of CHO at bedtime. I have changed her Lantus to NPH and will give her only a dose in the morning. (9) Chronic obstructive pulmonary disease: Status: Chronic Assessment and plan: use albuterol prn, continue Bevespi aerosphere Qualifiers: COPD type: emphysema Emphysema type: centrilobular Qualified Code(s): J43.2 - Centrilobular emphysema (10) Polymyalgia rheumatica: Status: Chronic Assessment and plan: continue home dose of prednisone 12.5 mg daiy. If her hypoglycemia continues then we may have to increase to stress dose levels as she may be adrenal suppressed. Will check am cortisol levels before and after cosyntropin tomorrow. Subjective Subjective Interval history since last seen: Sujatha complains of pain in her right foot. She does not like to keep her legs elevated d/t aching. I emphasized to her the need for elevation of her legs to reduce the edema which will help w/ the pain. As for her hypoglycemia, I have changed her Lantus to NPH at half her usual dose. Giving NPH once daily will help w/ basal control but allow this to wear off by bedtime so she should not have nocturnal hypoglycemia. She also needs to eat adequate calories at bedtime. Exam Narrative Exam Narrative: Beth is sitting up on her bed w/ her legs dangling over the side of her bed Right foot is swollen and red and dressed in VINAY wrap (she complained about the debridement that was performed this morning) LUngs: clear anteriorly but w/ basilar rales posteriorly Heart: regular w/ frequent ectopy Abdomen: soft, nontender Legs: 2+ pitting bilateral leg edema from knees to feet and redness over entire right foot from ankle to toes Objective Last Vital Signs Temp 36.9 C 01/07/23 15:27 Pulse 77 01/07/23 15:27 Resp 18 01/07/23 15:27 BP 138/79 01/07/23 15:27 Pulse Ox 96 01/07/23 15:27 Laboratory Results - last 24 hr 01/06/23 01/06/23 01/06/23 16:05 16:45 16:45 WBC RBC Hgb Hct MCV MCH MCHC RDW Plt Count MPV Immature Gran % Neutrophils % Lymphocytes % Monocytes % Eosinophils % Basophils % Nucleated RBC % Absolute Neutrophils Absolute Lymphocytes Absolute Monocytes Absolute Eosinophils Absolute Basophils VBG Lactate 1.0 Sodium Potassium Chloride Carbon Dioxide Anion Gap BUN Creatinine Est GFR (CKD-EPI 2020) Glucose Calcium Magnesium Iron TIBC Ferritin Creatine Kinase Troponin I C-Reactive Protein Vitamin B12 Folate Procalcitonin COVID-19 Source Nasal/Nares SARS-CoV-2 (PCR) Negative Add-On Test Request DONE 01/06/23 01/06/23 01/06/23 16:45 18:47 18:47 WBC RBC Hgb Hct MCV MCH MCHC RDW Plt Count MPV Immature Gran % Neutrophils % Lymphocytes % Monocytes % Eosinophils % Basophils % Nucleated RBC % Absolute Neutrophils Absolute Lymphocytes Absolute Monocytes Absolute Eosinophils Absolute Basophils VBG Lactate Sodium Potassium Chloride Carbon Dioxide Anion Gap BUN Creatinine Est GFR (CKD-EPI 2020) Glucose Calcium Magnesium Iron TIBC Ferritin Creatine Kinase Troponin I 59 C-Reactive Protein Vitamin B12 Folate Procalcitonin < 0.1 COVID-19 Source SARS-CoV-2 (PCR) Add-On Test Request DONE 01/06/23 01/06/23 01/06/23 18:47 18:47 18:47 WBC RBC Hgb Hct MCV MCH MCHC RDW Plt Count MPV Immature Gran % Neutrophils % Lymphocytes % Monocytes % Eosinophils % Basophils % Nucleated RBC % Absolute Neutrophils Absolute Lymphocytes Absolute Monocytes Absolute Eosinophils Absolute Basophils VBG Lactate Sodium Potassium Chloride Carbon Dioxide Anion Gap BUN Creatinine Est GFR (CKD-EPI 2020) Glucose Calcium Magnesium Iron 23 L TIBC Ferritin 114 Creatine Kinase Troponin I C-Reactive Protein 0.54 H Vitamin B12 684 Folate 17.8 Cancelled Procalcitonin COVID-19 Source SARS-CoV-2 (PCR) Add-On Test Request 01/06/23 01/06/23 01/06/23 18:47 18:47 22:00 WBC RBC Hgb Hct MCV MCH MCHC RDW Plt Count MPV Immature Gran % Neutrophils % Lymphocytes % Monocytes % Eosinophils % Basophils % Nucleated RBC % Absolute Neutrophils Absolute Lymphocytes Absolute Monocytes Absolute Eosinophils Absolute Basophils VBG Lactate Sodium Potassium Chloride Carbon Dioxide Anion Gap BUN Creatinine Est GFR (CKD-EPI 2020) Glucose Calcium Magnesium Iron TIBC Ferritin Creatine Kinase 57 Troponin I 61 H C-Reactive Protein Vitamin B12 Folate Procalcitonin COVID-19 Source SARS-CoV-2 (PCR) Add-On Test Request DONE 01/07/23 01/07/23 01/07/23 06:14 06:14 06:14 WBC 7.71 RBC 3.33 L Hgb 9.0 L Hct 32.0 L MCV 96 H MCH 27.0 MCHC 28.1 L RDW 19.0 H Plt Count 166 MPV 10.9 Immature Gran % 0.3 Neutrophils % 76.8 Lymphocytes % 11.4 Monocytes % 10.2 Eosinophils % 1.0 Basophils % 0.3 Nucleated RBC % 0.0 Absolute Neutrophils 5.92 Absolute Lymphocytes 0.88 L Absolute Monocytes 0.79 Absolute Eosinophils 0.08 Absolute Basophils 0.02 VBG Lactate Sodium 148 H Potassium 3.2 L Chloride 107 Carbon Dioxide 33.3 H Anion Gap 7.7 BUN 60 H Creatinine 2.5 H Est GFR (CKD-EPI 2020) 19.81 Glucose 48 L* Calcium 8.9 Magnesium 2.1 Iron TIBC 318 Ferritin Creatine Kinase Troponin I C-Reactive Protein Vitamin B12 Folate Procalcitonin COVID-19 Source SARS-CoV-2 (PCR) Add-On Test Request Time Spent with Patient Time Spent with Patient: 25-34 minutes Time was spent: preparing to see the patient(eg.review tests), obtaining and/or reviewing separately otained hiistory, ordering medications,tests, procedures, indepentently interpreting results, counseling the patient and care coordination
[2023-01-07] MEDS: Acetaminophen 325 MG TAB PO (16:05)
--- NOTE | 2023-01-07 16:25 | PDOC.CMIN ---
- If Service Date Differs Date of service: 01/07/23 Time of Service: 16:25 Care Management Initial Assess REASON FOR HOSPITALIZATION:: cellulitis right foot, CHF exacerbation PAST MEDICAL HISTORY/PAST SURGICAL HISTORY:: All Active Problems. Cellulitis of foot, right (Acute). CKD (chronic kidney disease) (Chronic). Chronic anemia (Acute). CHF (congestive heart failure) (Chronic). Elevated troponin (Acute). Pulmonary infiltrate (Acute). Heart failure with reduced ejection fraction (Chronic). Acute kidney injury superimposed on chronic kidney disease (Acute). Chronic respiratory failure with hypoxia (Acute). CKD (chronic kidney disease) stage 4, GFR 15-29 ml/min (Acute). Non-ST elevation [place] (NSTEMI) (Acute ~10/2022). Type 2 diabetes mellitus with retinopathy of both eyes, with long-term current use of insulin (Chronic). Chronic obstructive pulmonary disease (Chronic). O2 dependent on 3L NC. Polymyalgia rheumatica (Chronic). Carotid atherosclerosis (Chronic). Traumatic ecchymosis of right foot (Acute). Iron deficiency anemia (Chronic). Essential hypertension (Chronic). GERD (gastroesophageal reflux disease) (Chronic). Pulmonary nodule (Chronic). Nicotine dependence, cigarettes, uncomplicated (Chronic). Annual LDCT. Osteoarthritis of hips, bilateral (Chronic). Diabetic nephropathy (Chronic). Ventral hernia (Chronic). Generalized anxiety disorder (Chronic). Benign positional vertigo (Chronic). 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 Restless leg syndrome (Chronic). Medical History. COVID-19 virus infection (~10/2022). CVA (cerebral vascular accident) (~12/2021). Palliative care patient. Surgical History. History of esophagogastroduodenoscopy (EGD) (07/30/18). S/P cholecystectomy. S/P colonoscopy (07/30/18). S/P tonsillectomy PREVIOUS FUNCTIONAL STATUS/SOCIAL/FAMILY SUPPORTS:: Beth lives alone in an apartment at [facility] in [facility]. She has 4 daughters but only one daughter, Lida, lives locally. Her other daughters reside in [place] and [place]. Beth uses home oxygen at 3 L/min. She receives home health services for nursing and PT and has homemaker services 5 days a week through [facility]. Beth uses a walker for ambulatory assistance but feels she needs a wheelchair as she cannot stand for very long. CURRENT FUNCTIONAL STATUS:: Beth was lying in bed when CM met with her, in a dark room, with two friends visiting. Beth stated that she is not feeling well, and her friends confirmed this. She stated that she had not seen the MD yet, but was expecting to see him soon. Per report, she has a wound consult and surgical consult placed, and she is being monitored closely on telemetry. CM will continue to follow. ADVANCE DIRECTIVES:: On file. Daughter Lida Petit [facility]. Has patient been provided with info about the portal/API?: Yes Did the patient sign up for the portal?: Yes (active) CODE STATUS:: DNR/DNI INSURANCE COVERAGE / FINANCIAL ISSUES:: [facility] CURRENT HOME/COMMUNITY SERVICES/EQUIPMENT:: Home oxygen. Home health Nursing and PT. Homemaker services through [facility]. She uses a walker for ambulation. PRIMARY CARE PHYSICIAN:: Katherine Andre POTENTIAL DISCHARGE NEEDS:: Resumption of home care services, follow up appointments. PATIENT/FAMILY EDUCATION NEEDS:: Review discharge instructions and limitations, discussion of self care needs including ask me three. ANTICIPATED BARRIERS TO DISCHARGE:: None. TRANSPORTATION:: via private vehicle with family PLAN:: Beth will likely be discharged home with a resumption of home health services for nursing and PT. She will folow up with her PCP and plan of care and transport with family. CM will continue to support Beth and assess for ongoing discharge needs.
--- NOTE | 2023-01-07 17:35 | W.PM.PROGNOT ---
Date of Service Date of service: 01/07/23 Time of Service: 17:35 Assessment and Plan Assessment and plan (1) Cellulitis of foot, right: Status: Acute Assessment and plan: This is a fairly severe cellulitis of the right foot, but I agree that there is no discrete soft tissue collections that would be amenable to surgical drainage. I would continue with the broad-spectrum antibiotics. I have encouraged her to keep her feet elevated is much as possible to minimize edema and help unload the soft tissues. However, she does experience a fair amount of discomfort when her legs are up, perhaps reaffirming the diagnosis of significant peripheral arterial disease here. For now, I think the focus needs to be on trying to minimize her soft tissue infection, but this may be a challenge if the arterial supply to the foot is significantly diseased. Subjective Subjective Interval history since last seen: She thinks the redness might be mildly improved. Pain is about the same as yesterday. Exam Extrem Other: There is blanching erythema over the toes of the right foot. They are tender. Discharge on the dressings is serous Objective Last Vital Signs Temp 98.4 F 01/07/23 15:27 Pulse 77 01/07/23 15:33 Resp 18 01/07/23 15:27 BP 138/79 01/07/23 15:27 Pulse Ox 96 01/07/23 15:27 Laboratory Results - last 24 hr 01/06/23 01/06/23 01/06/23 18:47 18:47 18:47 WBC RBC Hgb Hct MCV MCH MCHC RDW Plt Count MPV Immature Gran % Neutrophils % Lymphocytes % Monocytes % Eosinophils % Basophils % Nucleated RBC % Absolute Neutrophils Absolute Lymphocytes Absolute Monocytes Absolute Eosinophils Absolute Basophils Sodium Potassium Chloride Carbon Dioxide Anion Gap BUN Creatinine Est GFR (CKD-EPI 2020) Glucose Calcium Magnesium Iron TIBC Ferritin 114 Creatine Kinase Troponin I 59 C-Reactive Protein 0.54 H Vitamin B12 684 Folate 17.8 Add-On Test Request DONE 01/06/23 01/06/23 01/06/23 18:47 18:47 18:47 WBC RBC Hgb Hct MCV MCH MCHC RDW Plt Count MPV Immature Gran % Neutrophils % Lymphocytes % Monocytes % Eosinophils % Basophils % Nucleated RBC % Absolute Neutrophils Absolute Lymphocytes Absolute Monocytes Absolute Eosinophils Absolute Basophils Sodium Potassium Chloride Carbon Dioxide Anion Gap BUN Creatinine Est GFR (CKD-EPI 2020) Glucose Calcium Magnesium Iron 23 L TIBC Ferritin Creatine Kinase Troponin I C-Reactive Protein Vitamin B12 Folate Cancelled Add-On Test Request DONE 01/06/23 01/06/23 01/07/23 18:47 22:00 06:14 WBC RBC Hgb Hct MCV MCH MCHC RDW Plt Count MPV Immature Gran % Neutrophils % Lymphocytes % Monocytes % Eosinophils % Basophils % Nucleated RBC % Absolute Neutrophils Absolute Lymphocytes Absolute Monocytes Absolute Eosinophils Absolute Basophils Sodium 148 H Potassium 3.2 L Chloride 107 Carbon Dioxide 33.3 H Anion Gap 7.7 BUN 60 H Creatinine 2.5 H Est GFR (CKD-EPI 2020) 19.81 Glucose 48 L* Calcium 8.9 Magnesium 2.1 Iron TIBC Ferritin Creatine Kinase 57 Troponin I 61 H C-Reactive Protein Vitamin B12 Folate Add-On Test Request 01/07/23 01/07/23 06:14 06:14 WBC 7.71 RBC 3.33 L Hgb 9.0 L Hct 32.0 L MCV 96 H MCH 27.0 MCHC 28.1 L RDW 19.0 H Plt Count 166 MPV 10.9 Immature Gran % 0.3 Neutrophils % 76.8 Lymphocytes % 11.4 Monocytes % 10.2 Eosinophils % 1.0 Basophils % 0.3 Nucleated RBC % 0.0 Absolute Neutrophils 5.92 Absolute Lymphocytes 0.88 L Absolute Monocytes 0.79 Absolute Eosinophils 0.08 Absolute Basophils 0.02 Sodium Potassium Chloride Carbon Dioxide Anion Gap BUN Creatinine Est GFR (CKD-EPI 2020) Glucose Calcium Magnesium Iron TIBC 318 Ferritin Creatine Kinase Troponin I C-Reactive Protein Vitamin B12 Folate Add-On Test Request Time Spent with Patient Time Spent with Patient: <25 minutes Time was spent: preparing to see the patient(eg.review tests) and counseling the patient
[2023-01-07] MEDS: Cilostazol 100 MG TAB PO (21:31)
[2023-01-08] VITALS (7 sets, daily range): BP systolic 108–140; BP diastolic 59–77; PULSE 94–100; RESP 16–20; TEMP 36.5–36.8; O2SAT 94–97
[2023-01-08] MEDS: Heparin 5,000 UNITS/ML VIAL 5000 UNITS SC ×2 (06:22→14:08)
[2023-01-08 07:08] LABS: Abs Immature Grans 0.01 10^3/uL (0.0-0.06); Absolute Basophil Count 0.03 10^3/uL (0.0-0.2); Absolute Eosinophil Count 0.09 10^3/uL (0.0-0.7); Absolute Lymphocyte Count 0.94 10^3/uL (1.2-3.4); Absolute Monocyte Count 0.62 10^3/uL (0.1-0.8); Absolute Neutrophil Count 5.29 10^3/uL (1.2-6.7); Basophils % 0.4; Eosinophils % 1.3; HCT 33.2 % (36.0-46.0); HGB 9.5 g/dL (11.2-15.7); Immature Grans % 0.1; Lymphocytes % 13.5; MCH 27.1 pg (27.0-33.0); MCHC 28.6 % (32.0-36.0); MCV 95 fL (80-95); MPV 11.3 fL (8.0-11.0); Monocytes % 8.9; Neutrophils % 75.8; Platelet Count 158 10^3/uL (130-400); RDW 18.5 % (11.7-14.6); WBC 6.98 10^3/uL (4.4-10.8)
[2023-01-08] MEDS: Normal Saline Flush 10 ML SYR IVP ×2 (07:10→21:47)
[2023-01-08] MEDS: Cosyntropin 0.25 MG VIAL IVP (07:11)
[2023-01-08 07:27] LABS: Anion Gap 7.6 mmol/L (3-11); BUN 54 mg/dL (7-18); CO2 31.4 mmol/L (21.0-32.0); CREATININE 2.6 mg/dL (0.55-1.02); Calcium 8.7 mg/dL (8.5-10.1); Chloride 105 mmol/L (98-107); Glucose 123 mg/dL (74-106); Sodium 144 mmol/L (136-145)
[2023-01-08 07:29] LABS: C-Reactive Protein 0.41 mg/dL (0.0-0.3)
[2023-01-08] MEDS: Budesonide/Formoterol 80/4.5 6.9 GM 60 PUFF INH IH ×2 (07:46→19:55)
[2023-01-08] MEDS: Cetirizine 10 MG TAB PO (09:17)
[2023-01-08] MEDS: Cilostazol 100 MG TAB PO ×2 (09:17→19:50)
[2023-01-08] MEDS: Sacubitril/Valsartan 24 mg/26 mg TAB 1 EACH PO ×2 (09:17→19:50)
[2023-01-08] MEDS: predniSONE 5 MG TAB 2.5 MG PO (09:17)
[2023-01-08] MEDS: rOPINIRole 0.5 MG TAB 0.25 MG PO ×2 (09:17→19:49)
[2023-01-08] MEDS: Aspirin E.C. 81 MG TABEC PO (09:18)
[2023-01-08] MEDS: predniSONE 10 MG TAB PO (09:18)
[2023-01-08] MEDS: Insulin NPH-Human 300 UNITS/3 ML PEN 12 UNIT SC (09:18)
[2023-01-08] MEDS: Cholecalciferol (Vitamin D3) 1,000 UNIT TAB 1000 UNITS PO (09:18)
[2023-01-08] MEDS: Clopidogrel 75 MG TAB PO (09:18)
[2023-01-08] MEDS: Potassium Chloride 20 MEQ TABCR PO (09:18)
[2023-01-08] MEDS: Insulin Aspart 300 UNITS/3 ML PEN SC ×3 (09:20→17:32)
[2023-01-08] MEDS: Bumetanide 1 MG/4 ML VIAL 4 MG IVP ×2 (09:25→21:43)
[2023-01-08 09:26] LABS: Transferrin 260 mg/dL (201-352)
--- NOTE | 2023-01-08 10:05 | CHAPLAIN ---
Beth was sitting on the edge of the bed when I visited yesterday. She said lying down made her feel more short of breath. She told me about why she is here. She had a friend visiting with her. She asked for prayer and we prayed together. I will continue to visit.
--- NOTE | 2023-01-08 10:40 | PDOC.CMPRO ---
- If Service Date Differs Date of service: 01/08/23 Time of Service: 10:40 Care Management Progress Note S/O:Beth was sitting up in a chair visiting with her daughter Mindy when CM met with her. Mindy updated CM on what has been happening since Beth's recent discharge. Last week Beth developed an open wound on her right foot and had a significant increase in her lower extremity edema. At that time the decision was made to have her go to [facility] for for short term rehab with a plan to transition to assistant terminal manager care. Beth is not pleased about this change but verbalized understanding that it is likely necessary as she is no longer able to care for herself. She was admitted to [facility] from the [facility] on Thursday and the plan will be to relinquish her apartment. Soon after admission she developed cellulitis which necessitated her admission to [facility]. Beth and Lida also talked about Beth's Advanced Directives and what she would or would not want for interventions. They had both determined that she would not accept dialysis. In her recent Advanced Directive Beth also indicated that she did not want a feeding tube nor would she want antibiotics if she were near end of life. At this time she wants to continue with all of her current medications and treatments. She stated I am not dying right now, I still want treatment. Her code status is DNR/DNI but she does not feel she is ready for comfort measures or hospice. Joan from [facility] saw her in consultation this afternoon and is agreeable to Palliative followup at & when she returns. A:Beth is a 72 year old woman admitted on 01/06/23 with cellulitis and CHF P:Beth will be discharged back to [facility] when medically cleared by the provider. She will return for short term rehab with a plan to transition to [facility] care. She will follow up with facility providers and plan of care and transport via w/c van. CM will continue to support Beth and assess for ongoing discharge needs.
--- NOTE | 2023-01-08 12:06 | PT.INIE ---
Date of service: 01/08/23 Time of Service: 09:26 PT Notes Visit Reasons: Cellulitis Right Foot, CHF Exacerbation Physical Therapy Inpatient Initial Evaluation Date: 01/08/2023 Referring Doctor:? Padilla Tobar MD PT Orders: PT CONSULT: Extendedn stay weakness. Exacerbation Chronic Cond. Limited ability. Precautions: Activity as tolerated.? On 2 L of oxygen via NC. Patient Profile/Admitting Diagnosis:? Patient is a 72-year-old female who presented to the ED on 01/06/2023 with persistent swelling of both feet ans ruptured blister/ulcer of right foot.? Patient is diagnosed with cellulitis of R foot, CKD, chronic anemia, CHF, elevated troponin, pulmonary infiltrates, acute of chroninc kidney injury, DM type II, COPD, and polymyalgia rheumatica. PMHX: All Active Problems? Cellulitis of foot, right (Acute) CKD (chronic kidney disease) (Chronic) Chronic anemia (Acute) CHF (congestive heart failure) (Chronic) Elevated troponin (Acute) Pulmonary infiltrate (Acute) Heart failure with reduced ejection fraction (Chronic) Acute kidney injury superimposed on chronic kidney disease (Acute) Chronic respiratory failure with hypoxia (Acute) CKD (chronic kidney disease) stage 4, GFR 15-29 ml/min (Acute) Non-ST elevation GA (NSTEMI) (Acute ~10/2022) Type 2 diabetes mellitus with retinopathy of both eyes, with long-term current use of insulin (Chronic) Chronic obstructive pulmonary disease (Chronic) O2 dependent on 3L NC Polymyalgia rheumatica (Chronic) Carotid atherosclerosis (Chronic) Traumatic ecchymosis of right foot (Acute) Iron deficiency anemia (Chronic) Essential hypertension (Chronic) GERD (gastroesophageal reflux disease) (Chronic) Pulmonary nodule (Chronic) Nicotine dependence, cigarettes, uncomplicated (Chronic) Annual LDCTOsteoarthritis of hips, bilateral (Chronic) Diabetic nephropathy (Chronic) Ventral hernia (Chronic) Generalized anxiety disorder (Chronic) Benign positional vertigo (Chronic) 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 COVID-19 virus infection (~10/2022) CVA (cerebral vascular accident) (~12/2021) Palliative care patient Surgical History? History of esophagogastroduodenoscopy (EGD) (07/30/18) S/P cholecystectomy S/P colonoscopy (07/30/18) S/P tonsillectomy Social History/Home Situation: Transferred from SNF for this admission. Patient lives alone at the [address] here in [place] with a ramp to enter.? She now has a pole installed close to her bed to facilitate safe transfers and short distance walking.? Home is much more handicap-accessible with assistance from [employer]. ? She has a basement but she stresses that she does not need to go down as she has everything she needs on the main floor of the apartment.? Modified independent with all mobility ADL performance using FWW.? On chronic oxygen supplementation using 2L/min.? Hoping to get meals on wheels back. Equipment Owned/DME: FWW, 4WW Subjective: Complains of pain in B feet, right more than the left. Objective: General Observation:?Telemetry monitoring in place.? IV access in L UE.? Oxygen supplementation of 2 L/min via NC. Mental Status: Alert and oriented x 4 Pain: Denies headache, chest pain, and lightheadedness Vital Signs: WNL as closely monitored via tele ROM: Right Upper Extremity: ? Shoulder Flexion WFL. Shoulder abduction WFL. Elbow flexion WFL. Wrist flexion WFL. Opening and closing of hand WFL. Left Upper Extremity:? Shoulder Flexion allows only up to 90 degrees. Shoulder abduction allows only up to 80 degrees. Elbow flexion WFL. Wrist flexion WFL. Opening and closing of hand WFL. Right Lower Extremity: Hip flexion WFL. Hip abduction WFL. Knee flexion WFL. Ankle dorsiflexion to neutral only. Ankle plantarflexion WFL. Left Lower Extremity: Hip flexion unable to bend beyond 90 due to left hip pain. Hip abduction WFL. Knee flexion WFL. Ankle dorsiflexion to neutral only. Ankle plantarflexion WFL. Strength: Right Upper Extremity: Shoulder flexors 4-/5. Shoulder abductors 4-/5. Elbow flexors 4/5. Elbow extensors 4/5. Supervisor Plasma weak but functional. Left Upper Extremity: Shoulder flexors 3-/5. Shoulder abductors 3-/5. Elbow flexors 4-/5. Elbow extensors 4-/5. Supervisor Plasma weak but functional. Right Lower Extremity: Hip flexors 3+/5. Hip abductors 4-/5. Knee flexors 4/5. Knee extensors 4-/5. Ankle dorsiflexors 3-/5. Ankle plantarflexors 4-/5. Left Lower Extremity:Hip flexors 3-/5. Hip abductors 3-/5. Knee flexors 3/5. Knee extensors 3/5. Ankle dorsiflexors 3-/5. Ankle plantarflexors 4/5. Sensation: Intact as to pain and pressure on bilateral lower extremities Bed Mobility/Transfers: Supine to sit standby assist Sit to stand contact guard assist Stand to sit contact guard assist Bed to chair?contact guard assist Gait: 5-6 steps using front-wheeled walker with contact guard assist.? Step-to gait pattern.? Terri decreased.? Reports pain in R foot at 6-7/10, 4-5/10 in the L foot with weight bearing. Post-op shoes on B feet for added support, pain relief, and protection Balance: Static Sitting: Normal Dynamic Sitting: Normal Static Standing: Fair Dynamic Standing: Fair Special Tests: Mobility Limitations Standardized Measure [facility] 6 clicks Basic Mobility Inpatient Short Form: Raw Score: 18? CMS Score: 47% deficit? ? ? Informed Consent/Education:? Patient was instructed in purpose of PT consult and plan of care. Agreeable to proceed with established PT POC to achieve personal goals. Assessment: Requested order for post-op shoes from hospitalist to protect B feet and relieve pain from cellulitis/swelling. Patient is a 72-year-old female who presented to the ED on 01/06/2023 with persistent swelling of both feet ans ruptured blister/ulcer of right foot.? Patient is diagnosed with cellulitis of R foot, CKD, chronic anemia, CHF, elevated troponin, pulmonary infiltrates, acute of chroninc kidney injury, DM type II, COPD, and polymyalgia rheumatica. Patient presents with clinical signs and symptoms consistent with current/admitting diagnoses that have resulted to mobility limitations and gait instability as demonstrated by the following impairment level findings: 1.? Decreased strength to B LE major muscle groups (L more affected than R due to previous CVA) 2.? Impaired standing balance 3.? Impaired activity tolerance 4.? Limitation of joint range of motion in left shoulder and left hip (L more affected than R due to previous CVA) 5.? Shortness of breath 6. Pain in the R foot from cellulitis Impairments are contributing to the following functional limitations: 1.? Inability to safely ambulate without assistive device 2.? Increase completion time for mobility ADL performance 3.? Increased fall risk Patient is assessed as a 58368 moderate complexity based on the following: History: Patient is a 72-year-old female who presented to the ED on 12/17/2022 with generalized weakness due to increasing SOB, wekaness,? and diarrhea.? Patient is diagnosed with acute on chronic heart failure with decreased ejection fraction, elevated troponin, ventricular tachycardia,? chronic kidney disease,? type 2 diabetes mellitus, COPD, polymyalgia rheumatica and? JARED. Examination: Demonstrable impairment in strength, balance, and activity tolerance with underlying impairments and functional limitations as documented above Presentation: Evolving Decision Makin moderate complexity Goals: Goals X1 week 1. Supine-Sit independent 2. Sit-Supine independent 3. Sit-Stand independent 4. Stand-Sit independent 5. Bed-Chair independent 6. Chair-Bed independent 7. Independent gait on level surface with use of least restrictive device for at least 50 feet without report of pain nor dyspnea 8. Good static and dynamic standing balance/tolerance DISCHARGE RECOMMENDATIONS: [] ? Home with no services [] [] ? Home with services [] [] ? Home with outpatient PT [] [] ? SNF for continued rehabilitation [] [] ? [facility] [] [] ? SNF versus LTC based on ability to participate and progress [] [X] HH PT vs. SNF based on progress towards goals TREATMENT CODE/TIME: 62973 x 20 minutes, 22310 x 19 minutes beginning at 9:26 AM. Thank you for the opportunity to participate in the care of this patient. Nahed Miller PT, DPT, CLT [facility] [place], [place]
--- NOTE | 2023-01-08 12:26 | W.PALLCONSUL ---
Date of service: 01/08/23 Time of Service: 12:26 History of Present Illness Narrative: Beth was seen in her hospital room with her daughter, Danna and 2 other family members present (they were introduced as family, not by name). Beth has been seen by Palliative only when she is in the hospital. She has not followed up as an outpatient. She has had several hospitalizations over the last year: # ED visits: 9 Ed visits in the last year # Admissions: 8 in the last year She was living in an apartment with support but was recently moved into [facility] by her family. She was there about 4 days before she was admitted to the hospital with cellulitis. She is currently on IV Abx. She states she did not get a chance to see if she liked it at the rehab. She plans to go out to the dinning area for meals and activities. She knows people who are residents there. She is upset that she could not bring her cat. She has AD and COLST and has previously established that she is a DNR/DNI. She agrees to being followed by Palliative at the rehab. Her daughter would like her to be followed especially in the setting of no provider on site at the rehab daily. Assessment and Plan Assessment and plan (1) Cellulitis of foot, right: Status: Acute (2) CKD (chronic kidney disease): Status: Chronic (3) Chronic anemia: Status: Acute (4) CHF (congestive heart failure): Status: Chronic (5) Heart failure with reduced ejection fraction: Status: Chronic (6) Non-ST elevation NH (NSTEMI): Status: Acute (7) Type 2 diabetes mellitus with retinopathy of both eyes, with long-term current use of insulin: Status: Chronic (8) Chronic obstructive pulmonary disease: Status: Chronic Qualifiers: COPD type: emphysema Emphysema type: centrilobular Qualified Code(s): J43.2 - Centrilobular emphysema (9) Generalized anxiety disorder: Status: Chronic (10) Palliative care patient: Assessment and plan: Beth is a 72 year old female who has previously been seen by Palliative while in the hospital but not after discharge. She has several comorbidities. She is currently admitted for IV Abx for cellulitis of the right foot. She has had several ED visits, most with admissions to the hospital in the last year. She was living on her own but her family recently moved her into [facility]. She is looking forward to visiting with people she knows there but misses her cat. She is agreeable to Palliative f/u after discharge back to the rehab. She has COLST and AD on file. She is a DNR/DNI. Review of Systems Narrative: She continues to have pain when she puts any weight on her foot. She has BLE edema- worse than usual. She is eating and drinking. [facility] All Active Problems (Updated 01/12/23 @ 18:44 by Vivienne Hernandez MD) Discharge planning issues (Acute) DVT prophylaxis (Acute) C. difficile colitis (Acute) Cellulitis of foot, right (Acute) CKD (chronic kidney disease) (Chronic) Chronic anemia (Acute) CHF (congestive heart failure) (Chronic) Elevated troponin (Acute) Pulmonary infiltrate (Acute) Heart failure with reduced ejection fraction (Chronic) Acute kidney injury superimposed on chronic kidney disease (Acute) Chronic respiratory failure with hypoxia (Acute) CKD (chronic kidney disease) stage 4, GFR 15-29 ml/min (Acute) Non-ST elevation [place] (NSTEMI) (Acute ~10/2022) Type 2 diabetes mellitus with retinopathy of both eyes, with long-term current use of insulin (Chronic) Chronic obstructive pulmonary disease (Chronic) O2 dependent on 3L NC Polymyalgia rheumatica (Chronic) Carotid atherosclerosis (Chronic) Traumatic ecchymosis of right foot (Acute) Iron deficiency anemia (Chronic) Essential hypertension (Chronic) GERD (gastroesophageal reflux disease) (Chronic) Pulmonary nodule (Chronic) Nicotine dependence, cigarettes, uncomplicated (Chronic) Annual LDCT Osteoarthritis of hips, bilateral (Chronic) Diabetic nephropathy (Chronic) Ventral hernia (Chronic) Generalized anxiety disorder (Chronic) Benign positional vertigo (Chronic) 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 Father Diabetes Daughter No problems noted. Daughter No problems noted. Daughter No problems noted. Daughter No problems noted. 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 4 daughters Results Last Vital Signs Temp 36.6 C 01/08/23 11:36 Pulse 97 H 01/08/23 11:36 Resp 20 01/08/23 11:36 BP 118/77 01/08/23 11:36 Pulse Ox 96 01/08/23 11:36 Labs 01/08/23 06:48 01/08/23 06:48 Labs: Laboratory Results - last 24 hr 01/07/23 01/08/23 01/08/23 06:14 06:48 06:48 WBC 6.98 RBC 3.50 L Hgb 9.5 L Hct 33.2 L MCV 95 MCH 27.1 MCHC 28.6 L RDW 18.5 H Plt Count 158 MPV 11.3 H Immature Gran % 0.1 Neutrophils % 75.8 Lymphocytes % 13.5 Monocytes % 8.9 Eosinophils % 1.3 Basophils % 0.4 Nucleated RBC % 0.0 Absolute Neutrophils 5.29 Absolute Lymphocytes 0.94 L Absolute Monocytes 0.62 Absolute Eosinophils 0.09 Absolute Basophils 0.03 Sodium Potassium Chloride Carbon Dioxide Anion Gap BUN Creatinine Est GFR (CKD-EPI 2020) Glucose Calcium Transferrin 260 C-Reactive Protein 0.41 H 01/08/23 06:48 WBC RBC Hgb Hct MCV MCH MCHC RDW Plt Count MPV Immature Gran % Neutrophils % Lymphocytes % Monocytes % Eosinophils % Basophils % Nucleated RBC % Absolute Neutrophils Absolute Lymphocytes Absolute Monocytes Absolute Eosinophils Absolute Basophils Sodium 144 Potassium 4.0 Chloride 105 Carbon Dioxide 31.4 Anion Gap 7.6 BUN 54 H Creatinine 2.6 H Est GFR (CKD-EPI 2020) 18.90 Glucose 123 H Calcium 8.7 Transferrin C-Reactive Protein
--- NOTE | 2023-01-08 13:40 | W.PM.PROGNOT ---
Date of Service Date of service: 01/08/23 Time of Service: 08:01 Assessment and Plan Assessment and plan (1) Cellulitis of foot, right: Status: Acute Assessment and plan: Continue with IV antibiotics No leukocytosis. Encourage activity as tolerated but also encouraged right lower extremity elevation intermittently throughout the day. Continue watchful waiting for any possible abscess or fluid collections of the right lower extremity. I saw and examined Inocencia, and I agree with Chandrika's notes. Continue with antibiotics for now and topical wound care. Subjective Subjective Interval history since last seen: Arrived with Sujatha sitting at the edge of the bed. She expresses that she is very tired this morning but otherwise feeling okay. She denies any fevers, chills or night sweats. She denies having any lower extremity discomfort except for when she is ambulating and weightbearing through her right foot. Exam Const General: cooperative, healthy appearing and comfortable Orientation: alert and oriented x3 Resp Effort & Inspection: normal respiratory effort, no audible wheezes and no cough Extrem Other: Right lower extremity is dressed with an Mansoor wrap. Toes are erythematous and swollen. Nontender to palpation. Objective Last Vital Signs Temp 36.6 C 01/08/23 11:36 Pulse 97 H 01/08/23 11:36 Resp 20 01/08/23 11:36 BP 118/77 01/08/23 11:36 Pulse Ox 96 01/08/23 11:36 Laboratory Results - last 24 hr 01/07/23 01/08/23 01/08/23 06:14 06:48 06:48 WBC 6.98 RBC 3.50 L Hgb 9.5 L Hct 33.2 L MCV 95 MCH 27.1 MCHC 28.6 L RDW 18.5 H Plt Count 158 MPV 11.3 H Immature Gran % 0.1 Neutrophils % 75.8 Lymphocytes % 13.5 Monocytes % 8.9 Eosinophils % 1.3 Basophils % 0.4 Nucleated RBC % 0.0 Absolute Neutrophils 5.29 Absolute Lymphocytes 0.94 L Absolute Monocytes 0.62 Absolute Eosinophils 0.09 Absolute Basophils 0.03 Sodium Potassium Chloride Carbon Dioxide Anion Gap BUN Creatinine Est GFR (CKD-EPI 2020) Glucose Calcium Transferrin 260 C-Reactive Protein 0.41 H 01/08/23 06:48 WBC RBC Hgb Hct MCV MCH MCHC RDW Plt Count MPV Immature Gran % Neutrophils % Lymphocytes % Monocytes % Eosinophils % Basophils % Nucleated RBC % Absolute Neutrophils Absolute Lymphocytes Absolute Monocytes Absolute Eosinophils Absolute Basophils Sodium 144 Potassium 4.0 Chloride 105 Carbon Dioxide 31.4 Anion Gap 7.6 BUN 54 H Creatinine 2.6 H Est GFR (CKD-EPI 2020) 18.90 Glucose 123 H Calcium 8.7 Transferrin C-Reactive Protein Time Spent with Patient Time Spent with Patient: <25 minutes Time was spent: preparing to see the patient(eg.review tests)
[2023-01-08] MEDS: Acetaminophen 325 MG TAB PO (15:56)
--- NOTE | 2023-01-08 17:08 | PTTR_ITS ---
Date of service: 01/08/23 Time of Service: 14:06 PT Notes Visit Reasons: Cellulitis Right Foot, CHF Exacerbation Physical Therapy Inpatient Treatment Note Date: 01/08/2023 Precautions: Activity as tolerated.? On 2 L of oxygen via NC. Subjective: Agreeable to walking despite report of pain in B feet,? right more than the left. Objective: General Observation:?Telemetry monitoring in place.? IV access in L UE.? Oxygen supplementation of 2 L/min via NC. Mental Status: Alert and oriented x 4 Pain: Denies headache, chest pain, and lightheadedness Vital Signs: WNL as closely monitored via tele Bed Mobility/Transfers: Sit to stand contact guard assist Stand to sit contact guard assist Bed to chair?contact guard assist Gait: 20 feet using front-wheeled walker with contact guard assist.? Step-to gait pattern.? Terri decreased.? Reports pain in R foot at 6-7/10,? 4-5/10 in the L foot with weight bearing.? Post-op shoes on B feet for added support, pain relief, and protection Balance: Static Sitting: Normal Dynamic Sitting: Normal Static Standing: Fair Dynamic Standing: Fair Assessment: Requested order for post-op shoes from hospitalist to protect B feet and relieve pain from cellulitis/swelling.? Patient is a 72-year-old female who presented to the ED on 01/06/2023 with persistent swelling of both feet ans ruptured blister/ulcer of right foot.? Patient is diagnosed with cellulitis of R foot,? CKD, chronic anemia,? CHF,? elevated troponin,? pulmonary infiltrates,? acute of chroninc kidney injury,? DM type II,? COPD,? and polymyalgia rheumatica. DISCHARGE RECOMMENDATIONS: [] ? Home with no services [] [] ? Home with services [] [] ? Home with outpatient PT [] [] ? SNF for continued rehabilitation [] [] ? [facility] [] [] ? SNF versus LTC based on ability to participate and progress [] [X] ? HH PT vs. SNF based on progress towards goals TREATMENT CODE/TIME: 07013 x 23 minutes? beginning at 14:06 PM.
--- NOTE | 2023-01-08 18:48 | PGE_ITS ---
Date of Service Date of service: 01/08/23 Time of Service: 18:48 Assessment and Plan Assessment and plan (1) Cellulitis of foot, right: Status: Acute Assessment and plan: Continue Meropenem. Daptomycin d/c'd; MRSA screen negative. Xray of right foot showed soft tissue swelling but no radiologic evidence of osteomyelitis. If not improving then will get MRI of foot. continue to monitor clinically and w/ inflammatory markeres. She needs to keep legs elevated, use MANSOOR wraps and continue diuretics Surgery following. (2) CKD (chronic kidney disease): Status: Chronic Assessment and plan: Stable and improved since last admission; continue to monitor while she is re ceiving diuretics (3) Chronic anemia: Status: Acute Assessment and plan: stable iron deficiency anemia; improved since last admission. She was treated w/ Venofer during her last hospitalization. will monitor. (4) CHF (congestive heart failure): Status: Chronic Assessment and plan: she has chronic HFREF. She was intolerant to aggressive GDT (Jardiance, spironolactone and Entresto), this admission we will just try to diurese her to a euvolemic weight and get the edema down while watching her renal function closely; continue IV bumex (5) Elevated troponin: Status: Acute Assessment and plan: transient elevation; will monitor but no ACS symptoms (6) Pulmonary infiltrate: Status: Acute Assessment and plan: I doubt pneumonia, more likely atelectasis and CHF but will repeat CXR once she has diuresed (7) Acute kidney injury superimposed on chronic kidney disease: Status: Acute Assessment and plan: monitor while diuresing (8) Type 2 diabetes mellitus with retinopathy of both eyes, with long-term current use of insulin: Status: Chronic Assessment and plan: recurrent hypoglycemia. Patient did not get any novolog coverage last night. Therefore, I think that this is her Lantus and lack of CHO at bedtime. Ordered to receive at least 60 gm of CHO at bedtime. Lantus d/c'd and NPH initiated for morning dosing only. Monitor and adjust. (9) Chronic obstructive pulmonary disease: Status: Chronic Assessment and plan: use albuterol prn, continue Bevespi aerosphere Qualifiers: COPD type: emphysema Emphysema type: centrilobular Qualified Code(s): J43.2 - Centrilobular emphysema (10) Polymyalgia rheumatica: Status: Chronic Assessment and plan: continue home dose of prednisone 12.5 mg daiy. If her hypoglycemia continues then we may have to increase to stress dose levels as she may be adrenal suppressed. However, her glucose is now elevated and will adjust NPH insulin dosing. Cortison; before and post cosyntropin pending. Subjective Subjective Patient reports: no new complaints, feels better and afebrile; denies nausea or vomiting Exam Narrative Exam Narrative: Gen: sitting in chair; legs not elevated. NAD. Cooperative. Right foot is swollen and red and dressed in MANSOOR wrap (she complained about the debridement that was performed this morning) Lungs: clear anteriorly but w/ basilar rales posteriorly. Nonlabored brathing. Heart: RRR. Abdomen: soft, nontender Legs: 2+ pitting bilateral leg edema from knees to feet. Mansoor wrap on right distal ankle and foot and on left LE from calf to toes. Objective Last Vital Signs Temp 36.6 C 01/08/23 15:28 Pulse 96 H 01/08/23 15:29 Resp 18 01/08/23 15:28 BP 119/66 01/08/23 15:28 Pulse Ox 95 01/08/23 15:28 Laboratory Results - last 24 hr 01/07/23 01/08/23 01/08/23 06:14 06:48 06:48 WBC 6.98 RBC 3.50 L Hgb 9.5 L Hct 33.2 L MCV 95 MCH 27.1 MCHC 28.6 L RDW 18.5 H Plt Count 158 MPV 11.3 H Immature Gran % 0.1 Neutrophils % 75.8 Lymphocytes % 13.5 Monocytes % 8.9 Eosinophils % 1.3 Basophils % 0.4 Nucleated RBC % 0.0 Absolute Neutrophils 5.29 Absolute Lymphocytes 0.94 L Absolute Monocytes 0.62 Absolute Eosinophils 0.09 Absolute Basophils 0.03 Sodium Potassium Chloride Carbon Dioxide Anion Gap BUN Creatinine Est GFR (CKD-EPI 2020) Glucose Calcium Transferrin 260 C-Reactive Protein 0.41 H 01/08/23 06:48 WBC RBC Hgb Hct MCV MCH MCHC RDW Plt Count MPV Immature Gran % Neutrophils % Lymphocytes % Monocytes % Eosinophils % Basophils % Nucleated RBC % Absolute Neutrophils Absolute Lymphocytes Absolute Monocytes Absolute Eosinophils Absolute Basophils Sodium 144 Potassium 4.0 Chloride 105 Carbon Dioxide 31.4 Anion Gap 7.6 BUN 54 H Creatinine 2.6 H Est GFR (CKD-EPI 2020) 18.90 Glucose 123 H Calcium 8.7 Transferrin C-Reactive Protein Time Spent with Patient Time Spent with Patient: 35-49 minutes Time was spent: obtaining and/or reviewing separately otained hiistory, ordering medications,tests, procedures, indepentently interpreting results and counseling the patient
[2023-01-08] MEDS: Insulin NPH-Human 300 UNITS/3 ML PEN 8 UNIT SC (19:51)
[2023-01-09] VITALS (9 sets, daily range): BP systolic 100–116; BP diastolic 63–72; PULSE 61–106; RESP 14–20; TEMP 36.4–36.7; O2SAT 91–97
[2023-01-09] MEDS: Acetaminophen 325 MG TAB PO ×3 (04:19→22:58)
[2023-01-09 07:29] LABS: Anion Gap 9.5 mmol/L (3-11); BUN 64 mg/dL (7-18); C-Reactive Protein 0.44 mg/dL (0.0-0.3); CO2 29.5 mmol/L (21.0-32.0); CREATININE 2.8 mg/dL (0.55-1.02); Calcium 8.2 mg/dL (8.5-10.1); Chloride 102 mmol/L (98-107); Estimated GFR 17.29 (mL/min/1.73m2); Glucose 279 mg/dL (74-106); Potassium 4.2 mmol/L (3.5-5.1); Sodium 141 mmol/L (136-145)
[2023-01-09] MEDS: Budesonide/Formoterol 80/4.5 6.9 GM 60 PUFF INH IH ×2 (07:46→19:12)
[2023-01-09] MEDS: Cilostazol 100 MG TAB PO ×2 (08:40→19:13)
[2023-01-09] MEDS: rOPINIRole 0.5 MG TAB 0.25 MG PO ×2 (08:41→19:13)
[2023-01-09] MEDS: Cholecalciferol (Vitamin D3) 1,000 UNIT TAB 1000 UNITS PO (08:41)
[2023-01-09] MEDS: predniSONE 5 MG TAB 2.5 MG PO (08:43)
[2023-01-09] MEDS: Clopidogrel 75 MG TAB PO (08:43)
[2023-01-09] MEDS: predniSONE 10 MG TAB PO (08:43)
[2023-01-09] MEDS: Sacubitril/Valsartan 24 mg/26 mg TAB 1 EACH PO ×2 (08:43→19:13)
[2023-01-09] MEDS: Aspirin E.C. 81 MG TABEC PO (08:43)
[2023-01-09] MEDS: Cetirizine 10 MG TAB PO (08:43)
[2023-01-09] MEDS: Docusate Sodium 100 MG CAP PO (08:43)
[2023-01-09] MEDS: Insulin NPH-Human 300 UNITS/3 ML PEN 16 UNIT SC (08:48)
[2023-01-09] MEDS: Insulin Aspart 300 UNITS/3 ML PEN SC ×3 (08:48→17:59)
--- NOTE | 2023-01-09 09:46 | PDOC.CMPRO ---
- If Service Date Differs Date of service: 01/09/23 Time of Service: 09:46 Care Management Progress Note S/O:Beth was sitting up in a chair when CM met with her this morning. She shared that she did not sleep well last night and that she was not feeling very good. She worked with PT today although she complained of shortness of breath and fatigue during the session. This afternoon ABUNDIO was called to Beth's room by her daughter Lida. Beth was crying and reported to CM that she rang her call bob to request support with personal care to get off the commode. Beth shared that a nurse responded and reportedly told Beth to wipe herself. Beth informed her she was unable to do so and the nurse reportedly told her she saw her walk in the raza and that she was able to wipe herself. The situation then escalated and the nursing supervisor statement clerks was called and intervened. ABUNDIO spoke privately with Lida who had advocated for her mother rather forcefully at the nurses station and advised her to contact either CM or the nursing supervisor statement clerks rather than confront staff on her own. Mindy acknowledged understanding and agreed to outreach if needed in the future. A:Beth is a 72 year old woman admitted on 01/06/23 with cellulitis and CHF P:Beth will be discharged back to [facility] when medically cleared by the provider. She will return for short term rehab with a plan to transition to halfway care. She will follow up with facility providers and plan of care and transport via w/c van. CM will continue to support Beth and assess for ongoing discharge needs.
[2023-01-09] MEDS: Bumetanide 1 MG/4 ML VIAL 4 MG IVP ×2 (10:23→21:49)
--- NOTE | 2023-01-09 12:22 | PT.INNT ---
Date of service: 01/09/23 Time of Service: 10:00 PT Notes Visit Reasons: Cellulitis Right Foot, CHF Exacerbation 01/09/2023 Attempted to engage patient in PT session this morning. Patient did not open her eyes and was only responding with moaning. Nursing aware. Will attempt to resume PT services this afternoon.
--- NOTE | 2023-01-09 13:14 | PT.INTREAT ---
Date of service: 01/09/23 Time of Service: 12:45 PT Notes Visit Reasons: Cellulitis Right Foot, CHF Exacerbation Inpatient Physical Therapy Treatment Note [facility] Date: 01/09/2023 PRECAUTIONS: Activity as tolerated, fall SUBJECTIVE: Beth is eventually agreeable to participating in PT. She reports that she does not feel well today and that she is tired. She reports that she feels like she can't breathe with activity. OBJECTIVE:? Pain: Patient c/o B foot pain R>L to touch and with weight bearing ? BED MOBILITY/TRANSFERS? Supine-sit: I? Sit-stand: Min A? Stand-sit: SBA ? GAIT? Assistive Device: FWW ? Weight bearing: Full Assist: SBA ? Distance: 20' x2? Deviation: Slow pacing, seated rest x5 minutes, SOB, on 2L O2, increased fatigue THEREX: Patient declined TOILETING: Patient toileted with assist? ASSESSMENT:? Patient tolerated session with c/o increased SOB and fatigue with gait training. She was able to tolerate a slight progression in gait distance, although requires seated rest. PLAN: Continue with global strengthening and general conditioning for improved mobility and activity tolerance. TREATMENT CODE/TIME: Session 1: Refused Session 2: 25 minutes; 54251 x2 (12:45)
[2023-01-09] MEDS: Heparin 5,000 UNITS/ML VIAL 5000 UNITS SC ×2 (15:52→21:50)
[2023-01-09 16:08] LABS: Bilirubin Negative (Negative); Blood Trace-intact (Negative); Clarity Clear (Clear); Glucose 250 mg/dL (Negative); Ketones Negative (Negative); Leukocyte Esterase Trace (Negative); Nitrite Negative (Negative); Specific Gravity 1.015 (1.005-1.025); Urobilinogen 0.2 mg/dL (Up to 0.2); pH 5.5 (5-8)
[2023-01-09 16:15] LABS: Bacteria Negative HPF (Negative); C & S Indicated? No; Casts Negative LPF (Negative); Crystals Negative HPF (Negative); Epithelial Cells Many HPF (Negative); Mucus Negative (Negative); Other Cells Negative (Negative)
[2023-01-09] MEDS: Insulin NPH-Human 300 UNITS/3 ML PEN 12 UNIT SC (17:16)
[2023-01-09 17:22] LABS: Glucose 432 mg/dL (74-106)
--- NOTE | 2023-01-09 18:01 | PGE_ITS ---
Date of Service Date of service: 01/09/23 Time of Service: 18:01 Assessment and Plan Assessment and plan (1) Cellulitis of foot, right: Status: Acute Assessment and plan: Continue Meropenem. Daptomycin d/c'd; MRSA screen negative. Xray of right foot showed soft tissue swelling but no radiologic evidence of osteomyelitis. If not improving then will get MRI of foot. continue to monitor clinically and w/ inflammatory markeres. She needs to keep legs elevated, use MANSOOR wraps and continue diuretics Surgery following. (2) CKD (chronic kidney disease): Status: Chronic Assessment and plan: Stable and improved since last admission; continue to monitor while she is re ceiving diuretics (3) Chronic anemia: Status: Acute Assessment and plan: Hgb now trending down; had shown improvement since last admission. She was administered Venofer last admission; iron level still low at 23. Will give venofer 300mg today and tomorrow. Considering erythropoetin tx. (4) CHF (congestive heart failure): Status: Chronic Assessment and plan: she has chronic HFREF. She was intolerant to aggressive GDT (Jardiance, spironolactone and Entresto), this admission we will just try to diurese her to a euvolemic weight and get the edema down while watching her renal function closely; continue IV bumex (5) Elevated troponin: Status: Acute Assessment and plan: transient elevation; will monitor but no ACS symptoms (6) Pulmonary infiltrate: Status: Acute Assessment and plan: I doubt pneumonia, more likely atelectasis and CHF but will repeat CXR once she has diuresed (7) Acute kidney injury superimposed on chronic kidney disease: Status: Acute Assessment and plan: monitor while diuresing (8) Type 2 diabetes mellitus with retinopathy of both eyes, with long-term current use of insulin: Status: Chronic Assessment and plan: She has experienced recurrent hypoglycemia. Because of this her lantus was stopped and she was placed on daily NPH with SS correction dosing. However, her glucose has since been elevated. Restart daily Lantus and adjust as necessary. (9) Chronic obstructive pulmonary disease: Status: Chronic Assessment and plan: use albuterol prn, continue Bevespi aerosphere Qualifiers: COPD type: emphysema Emphysema type: centrilobular Qualified Code(s): J43.2 - Centrilobular emphysema (10) Polymyalgia rheumatica: Status: Chronic Assessment and plan: HOme dose of prednisone is 15mg daily; continue. Cortison; before and post cosyntropin normal. Subjective Subjective Patient reports: no new complaints, tolerating a regular diet and afebrile; denies nausea or vomiting Interval history since last seen: c/o fatigue and urinary urgency. No dysuria. Exam Narrative Exam Narrative: Gen: sitting in chair; legs not elevated. NAD. Cooperative. Appears more fatigued. Right foot with mansoor wrap in place. Left LE with mansoor in place. Mild improvement in edema. Lungs: clear anteriorly but w/ basilar rales posteriorly. Nonlabored breathing. Heart: RRR. Abdomen: soft, nontender Legs: 2+ pitting bilateral leg edema from knees to feet. Mansoor wrap on right distal ankle and foot and on left LE from calf to toes. Objective Last Vital Signs Temp 36.5 C 01/09/23 15:56 Pulse 103 H 01/09/23 15:56 Resp 20 01/09/23 15:56 BP 116/63 01/09/23 15:56 Pulse Ox 94 01/09/23 15:56 Laboratory Results - last 24 hr 01/08/23 01/09/23 01/09/23 06:48 06:45 14:25 Sodium 141 Potassium 4.2 Chloride 102 Carbon Dioxide 29.5 Anion Gap 9.5 BUN 64 H Creatinine 2.8 H Est GFR (CKD-EPI 2020) 17.29 Glucose 279 H Calcium 8.2 L C-Reactive Protein 0.44 H Cortisol 11 Cortisol 30 Minute 22 Cortisol 60 Minute 27 Urine Color Yellow Urine Clarity Clear Urine pH 5.5 Ur Specific [place] 1.015 Urine Protein Trace H Urine Ketones Negative Urine Blood Trace-intact H Urine Nitrite Negative Urine Bilirubin Negative Urine Urobilinogen 0.2 Ur Leukocyte Esterase Trace H Urine RBC 3-5 H Urine WBC 5-10 Ur Epithelial Cells Many Urine Crystals Negative Urine Bacteria Negative Urine Casts Negative Urine Mucus Negative Urine Other Negative Ur Culture Indicated? No Urine Glucose 250 H 01/09/23 17:00 Sodium Potassium Chloride Carbon Dioxide Anion Gap BUN Creatinine Est GFR (CKD-EPI 2020) Glucose 432 H Calcium C-Reactive Protein Cortisol Cortisol 30 Minute Cortisol 60 Minute Urine Color Urine Clarity Urine pH Ur Specific [place] Urine Protein Urine Ketones Urine Blood Urine Nitrite Urine Bilirubin Urine Urobilinogen Ur Leukocyte Esterase Urine RBC Urine WBC Ur Epithelial Cells Urine Crystals Urine Bacteria Urine Casts Urine Mucus Urine Other Ur Culture Indicated? Urine Glucose Time Spent with Patient Time Spent with Patient: 25-34 minutes Time was spent: preparing to see the patient(eg.review tests), ordering medications,tests, procedures, indepentently interpreting results and counseling the patient
--- NOTE | 2023-01-09 21:18 | NUR.NOTE ---
Pt BG levels twice today have been 467. MD called after 1st 467 level and orders given for 12 units of NPH, plus SS dose. Meds given as ordered and lab draw of BG completed. Recheck of BG level later showed level of 467. No new orders given, but staff asked to recheck level at 2100. Recheck of BG at 2100 was 331. Awaiting MD orders (if any given). Pt informed earlier today by Dr. Guardado that because pt BG levels have been so elevated today, prescribed PB&J would not be given tonight and pt needed to have a snack with less carbs. When this nurse went to remind pt about not having PB&J, pt got very angry and stated she didn't remember the doctor coming in and telling her this. Patient did not want snack that this nurse wanted initially, but then decided she would eat it. Pt very agitated. This nurse tried to educate patient on keeping tight glucose control to better her health, but pt told this nurse she didn't want to hear anything that this nurse had to say. Clinical coordinator made aware.
[2023-01-10] VITALS (10 sets, daily range): BP systolic 100–131; BP diastolic 56–80; PULSE 81–116; RESP 16–22; TEMP 36.3–36.7; O2SAT 94–97
[2023-01-10] MEDS: Acetaminophen 325 MG TAB PO ×2 (03:06→20:19)
[2023-01-10] MEDS: Heparin 5,000 UNITS/ML VIAL 5000 UNITS SC ×3 (05:41→21:02)
[2023-01-10 06:41] LABS: Abs Immature Grans 0.01 10^3/uL (0.0-0.06); Absolute Basophil Count 0.02 10^3/uL (0.0-0.2); Absolute Eosinophil Count 0.07 10^3/uL (0.0-0.7); Absolute Lymphocyte Count 0.84 10^3/uL (1.2-3.4); Absolute Neutrophil Count 5.12 10^3/uL (1.2-6.7); Basophils % 0.3; Eosinophils % 1.1; HCT 30.1 % (36.0-46.0); HGB 8.8 g/dL (11.2-15.7); Immature Grans % 0.2; Lymphocytes % 12.6; MCH 26.5 pg (27.0-33.0); MCHC 29.2 % (32.0-36.0); MCV 91 fL (80-95); MPV 11.7 fL (8.0-11.0); Neutrophils % 76.8; Platelet Count 147 10^3/uL (130-400); RBC 3.32 10^6/uL (3.93-5.22); RDW 17.9 % (11.7-14.6); RDW-SD 59.4 fL; WBC 6.66 10^3/uL (4.4-10.8)
[2023-01-10 06:51] LABS: BUN 68 mg/dL (7-18); CREATININE 2.8 mg/dL (0.55-1.02); Calcium 8.4 mg/dL (8.5-10.1); Chloride 101 mmol/L (98-107); Estimated GFR 17.29 (mL/min/1.73m2); Glucose 222 mg/dL (74-106); Potassium 3.9 mmol/L (3.5-5.1); Sodium 140 mmol/L (136-145)
[2023-01-10] MEDS: Budesonide/Formoterol 80/4.5 6.9 GM 60 PUFF INH IH ×2 (07:55→20:30)
[2023-01-10] MEDS: Aspirin E.C. 81 MG TABEC PO (09:31)
[2023-01-10] MEDS: Clopidogrel 75 MG TAB PO (09:31)
[2023-01-10] MEDS: Cilostazol 100 MG TAB PO ×2 (09:31→20:29)
[2023-01-10] MEDS: Cholecalciferol (Vitamin D3) 1,000 UNIT TAB 1000 UNITS PO (09:32)
[2023-01-10] MEDS: Cetirizine 10 MG TAB PO (09:32)
[2023-01-10] MEDS: Sacubitril/Valsartan 24 mg/26 mg TAB 1 EACH PO ×2 (09:32→20:29)
[2023-01-10] MEDS: predniSONE 5 MG TAB PO (09:32)
[2023-01-10] MEDS: predniSONE 10 MG TAB PO (09:32)
[2023-01-10] MEDS: Insulin Aspart 300 UNITS/3 ML PEN SC ×3 (09:33→17:41)
[2023-01-10] MEDS: rOPINIRole 0.5 MG TAB 0.25 MG PO ×2 (09:33→17:41)
[2023-01-10] MEDS: Insulin NPH-Human 300 UNITS/3 ML PEN 16 UNIT SC (09:34)
[2023-01-10] MEDS: Bumetanide 1 MG/4 ML VIAL 4 MG IVP ×2 (10:44→21:11)
--- NOTE | 2023-01-10 12:04 | PT.INTREAT ---
Date of service: 01/10/23 Time of Service: 09:50 PT Notes Visit Reasons: Cellulitis Right Foot, CHF Exacerbation Inpatient Physical Therapy Treatment Note [facility] Date: 01/10/2023 PRECAUTIONS: Activity as tolerated, fall SUBJECTIVE: Indicated post toileting that she was too tired to walk anymore. Refused to put ortho sandles on with ambulation to / from chair. OBJECTIVE: PAIN: Complaining of leg pain with movement and legs just being too tired to exercise. BED MOBILITY/TRANSFERS Up in chair when I arrived ? Sit-stand: Min A? Stand-sit: SBA GAIT Assistive Device: FWW Weight bearing: Full Assist: CGA Distance: 8ft to commode and 8ft back to recliner Deviation: short steps with slow pace, with O2 supplement at 2L, SOB and complaints of fatigue THEREX: Performed seated hip abd/add, ankle pumps, LAQs and seated hip flexion x 10 reps each. Toileting: Did have loose bowel movement while on commode. Required assist with wiping buttock and pulling down and pulling up undergarments. Nursing staff was informed of toileting. ASSESSMENT: Tolerated ther exercises poorly. Needed significant encouragement to perform and very weak effort given. Refused to put ortho shoes on to walk and post getting up to toilet she indicated she was too tire to walk anymore. PLAN: Continue to encourage mobility for improved ADL function. TREATMENT CODE/TIME:23355 x 2, 9:50 to 10:15 (25')
[2023-01-10] MEDS: IRON SUCROSE COMPLEX 300 MG in Normal Saline 250 ML 167 MG IVPB (17:41)
[2023-01-10] MEDS: Normal Saline Flush 10 ML SYR IVP ×2 (17:41→21:04)
[2023-01-10] MEDS: Loperamide 2 MG CAP PO (20:20)
[2023-01-11] VITALS (8 sets, daily range): BP systolic 100–128; BP diastolic 50–72; PULSE 60–128; RESP 16–22; TEMP 36.3–36.9; O2SAT 92–96
[2023-01-11] MEDS: Heparin 5,000 UNITS/ML VIAL 5000 UNITS SC ×3 (05:19→22:10)
[2023-01-11] MEDS: Acetaminophen 325 MG TAB PO ×2 (05:25→23:41)
[2023-01-11 05:42] LABS: C Diff PCR Positive (Negative)
[2023-01-11 07:20] LABS: Abs Immature Grans 0.02 10^3/uL (0.0-0.06); Absolute Basophil Count 0.01 10^3/uL (0.0-0.2); Absolute Eosinophil Count 0.04 10^3/uL (0.0-0.7); Absolute Monocyte Count 0.63 10^3/uL (0.1-0.8); Absolute Neutrophil Count 4.97 10^3/uL (1.2-6.7); Basophils % 0.2; Eosinophils % 0.6; HCT 30.1 % (36.0-46.0); HGB 8.9 g/dL (11.2-15.7); Immature Grans % 0.3; MCHC 29.6 % (32.0-36.0); MCV 91 fL (80-95); MPV 11.6 fL (8.0-11.0); Monocytes % 9.9; Platelet Count 141 10^3/uL (130-400); RDW 17.5 % (11.7-14.6); RDW-SD 58.3 fL; WBC 6.37 10^3/uL (4.4-10.8)
[2023-01-11 07:33] LABS: Anion Gap 8.1 mmol/L (3-11); BUN 66 mg/dL (7-18); C-Reactive Protein 0.23 mg/dL (0.0-0.3); CO2 31.9 mmol/L (21.0-32.0); CREATININE 2.9 mg/dL (0.55-1.02); Calcium 8.4 mg/dL (8.5-10.1); Chloride 101 mmol/L (98-107); Estimated GFR 16.58 (mL/min/1.73m2); Glucose 175 mg/dL (74-106); Potassium 3.5 mmol/L (3.5-5.1); Sodium 141 mmol/L (136-145)
[2023-01-11] MEDS: Budesonide/Formoterol 80/4.5 6.9 GM 60 PUFF INH IH ×2 (08:00→19:32)
--- NOTE | 2023-01-11 08:30 | DI.RAD_ITS ---
Exam(s) XR PORTABLE CHEST AP EXAM: XR PORTABLE CHEST AP CLINICAL HISTORY: CHF TECHNIQUE: 2D digital imaging was performed. COMPARISON: CR XR CHEST 2V PA LATERAL from 10/23/2022 FINDINGS: Exam limited by portable technique. Lung bases not well penetrated. LUNGS: Bilateral pleural effusions, small, right greater than left.. Increased interstitial markings consistent with CHF. No definite focal consolidation however basilar consolidation cannot be excluded . HEART: Enlarged. Pulmonary vascular prominence. AORTA: Normal diameter. BONES: Unremarkable for age. Soft tissues: Unremarkable. IMPRESSION: Bilateral pleural effusions and CHF. DATA REPOSITORY: RADIATION DOSE DELIVERED:
[2023-01-11] MEDS: predniSONE 10 MG TAB PO (08:31)
[2023-01-11] MEDS: Cholecalciferol (Vitamin D3) 1,000 UNIT TAB 1000 UNITS PO (08:31)
[2023-01-11] MEDS: Sacubitril/Valsartan 24 mg/26 mg TAB 1 EACH PO ×2 (08:31→21:01)
[2023-01-11] MEDS: Aspirin E.C. 81 MG TABEC PO (08:31)
[2023-01-11] MEDS: Vancomycin 125 MG CAP PO ×4 (08:31→21:01)
[2023-01-11] MEDS: Clopidogrel 75 MG TAB PO (08:31)
[2023-01-11] MEDS: Cilostazol 100 MG TAB PO ×2 (08:31→21:01)
[2023-01-11] MEDS: predniSONE 5 MG TAB PO (08:31)
[2023-01-11] MEDS: rOPINIRole 0.5 MG TAB 0.25 MG PO ×2 (08:31→17:41)
[2023-01-11] MEDS: Normal Saline Flush 10 ML SYR IVP ×3 (08:32→21:02)
[2023-01-11] MEDS: IRON SUCROSE COMPLEX 300 MG in Normal Saline 250 ML 167 MG IVPB (08:32)
[2023-01-11] MEDS: Cetirizine 10 MG TAB 5 MG PO (08:32)
[2023-01-11] MEDS: Insulin Glargine 300 UNITS/3 ML PEN 25 UNITS SC (08:33)
[2023-01-11] MEDS: Insulin Aspart 300 UNITS/3 ML PEN SC ×3 (08:33→17:41)
--- NOTE | 2023-01-11 09:30 | RT.EKG_ITS ---
APPROVED REPORT Exam: Resting ECG Reason for Exam: afib Patient Location: I HR:102 bpm ECG Measurements Heart Rate 102 AXIS NE 142 P 55 QRSd 89 QRS 37 QT 331 T 196 QTc 432 Conclusion Sinus tachycardia...rate> 99 Supraventricular bigeminy...bigeminy string>4 w/ SV complexes Repol abnrm, prob ischemia, anterolateral lds...ST dep, T neg, I aVL V2-V6 Baseline artifact
--- NOTE | 2023-01-11 10:54 | DI.VRAD_ITS ---
PROCEDURE INFORMATION: Exam: XR Chest Exam date and time: 01/11/2023 10:13 AM Age: 72 years old Clinical indication: Other: Chf TECHNIQUE: Imaging protocol: Radiologic exam of the chest. Views: 1 view. COMPARISON: CR XR CHEST 2V PA LATERAL 01/06/2023 3:37 PM FINDINGS: Lungs: Opacities in both lung bases may represent atelectasis or pneumonia.. Pleural spaces: There may be mild bilateral pleural effusions. Heart/Mediastinum: Cardiomegaly and mild vascular prominence may represent interstitial edema or mild congestive heart failure.. Bones/joints: Unremarkable. IMPRESSION: 1. Opacities in both lung bases may represent atelectasis or pneumonia.. 2. There may be mild bilateral pleural effusions. 3. Cardiomegaly and mild vascular prominence may represent interstitial edema or mild congestive heart failure.. Dictated and Authenticated by: Gunner Charles MD. Ordering:JOSI Foster MD
[2023-01-11] MEDS: Bumetanide 1 MG/4 ML VIAL 4 MG IVP ×2 (11:15→16:22)
--- NOTE | 2023-01-11 11:58 | PT.INTREAT ---
Date of service: 01/11/23 Time of Service: 08:50 PT Notes Visit Reasons: Cellulitis Right Foot, CHF Exacerbation Inpatient Physical Therapy Treatment Note [facility] Date: 01/11/2023 PRECAUTIONS: SUBJECTIVE: Stated she was not willing to walk earlier in the morning but willing to do chair exercises. Was receiving IV and having to utilize commode frequently so held on ambulation at that time. Later in morning Beth was still getting IV and utilizing commode, but was willing to walk in place instead of walking to door. Indicated she had to go to bathroom again post walking in place, but once on commode was not able to have BM. OBJECTIVE: O2 supplement with NC in place at 2L throughout session. PAIN: Skin is tender to touch and did not want gait belt tightened due to stomach sensitivity. BED MOBILITY/TRANSFERS Up in chair when I arrived to room. Sit-stand: SBA Stand-sit: SBA GAIT Assistive Device: FWW Weight bearing: Full, refused to wear ortho shoes due to them being painful on feet. Assist: SBA Distance: To / from commode, 3-5ft x [address] x 1 minutes Deviation: slow pace with short steps and decreased step height Toileting: SBA with pulling pants up and down and assist with wiping buttock THEREX: Able to perform seated ther exercises, consisting of ankle pumps, LAQs, hip abd/add, hip flexion with assist, bicep curls on left (IV in right) and bilateral UE horizontal shoulder abd /adduction for 10-15 reps each. ASSESSMENT: Difficulty with ambulation due to frequent commode travel and IV attachment today. Did fair with ther exercises. PLAN: Continue with current plan of care with focus on improved ambulation and strengthening of bilateral UEs and LEs as able to tolerate. TREATMENT CODE/TIME: [id number] / [id number], 8:50 to 9:00 (10') for ther exercises and 11:35 to 11:55 (20') for ambulation
[2023-01-11] MEDS: Mylanta Suspension 30 ML CUP PO (13:59)
--- NOTE | 2023-01-11 14:26 | W.PM.PROGNOT ---
Date of Service Date of service: 01/11/23 Time of Service: 14:26 Assessment and Plan Assessment and plan (1) Cellulitis of foot, right: Status: Acute Assessment and plan: Continue Meropenem. Daptomycin d/c'd; MRSA screen negative. Xray of right foot showed soft tissue swelling but no radiologic evidence of osteomyelitis. If not improving then will get MRI of foot. continue to monitor clinically and w/ inflammatory markeres. She needs to keep legs elevated, use VINAY wraps and continue diuretics Improving. (2) CKD (chronic kidney disease): Status: Chronic Assessment and plan: Creatinine better this admission since previous admission. Creatinine now 2.9; slightly higher from 2.8. (3) Chronic anemia: Status: Acute Assessment and plan: Hgb, overall, improved since last admission. She was administered Venofer last admission; iron level still low at 23. Gave venofer 300mg on 01/10 and 01/11. Considering erythropoetin tx. (4) CHF (congestive heart failure): Status: Chronic Assessment and plan: she has chronic HFREF. She was intolerant to aggressive GDT (Jardiance, spironolactone and Entresto), this admission we will just try to diurese her to a euvolemic weight and get the edema down while watching her renal function closely; continue IV bumex (5) Elevated troponin: Status: Acute Assessment and plan: transient elevation; will monitor but no ACS symptoms (6) Pulmonary infiltrate: Status: Acute Assessment and plan: Thought to be atelectesis. Present on initially CXR and currently present on today's CXR 01/11. Possibly pulmonary edema. Has, though, been diuresing well. No fever or elevated WBC count, and is on cefepime. Doubt PNA. (7) Acute kidney injury superimposed on chronic kidney disease: Status: Acute Assessment and plan: monitor while diuresing (8) Type 2 diabetes mellitus with retinopathy of both eyes, with long-term current use of insulin: Status: Chronic Assessment and plan: She has experienced recurrent hypoglycemia. Because of this her lantus was stopped and she was placed on daily NPH with SS correction dosing. However, her glucose has since been elevated. Restarted daily Lantus and adjust as necessary. (9) Chronic obstructive pulmonary disease: Status: Chronic Assessment and plan: use albuterol prn, continue Bevespi aerosphere Qualifiers: COPD type: emphysema Emphysema type: centrilobular Qualified Code(s): J43.2 - Centrilobular emphysema (10) Polymyalgia rheumatica: Status: Chronic Assessment and plan: HOme dose of prednisone is 15mg daily; continue. Cortison; before and post cosyntropin normal. Subjective Subjective Patient reports: diarrhea and afebrile; denies feels better, nausea, vomiting or shortness of breath Exam Narrative Exam Narrative: Gen: Beth appears more fatigued / frail. Lungs: clear anteriorly but w/ basilar rales posteriorly. Nonlabored breathing. Heart: RRR. Abdomen: soft, nontender BLE: VINAY wraps in place on R and L ankles/feet: removed. 2+ edema above area that had wraps in place. R foot erythema is improving. Blistered ulcer on dorsum of foot with small amount of adherent slough. No purulent drainage. Tender. L proximal ankle with non-erythematous, now deflated, blister with no drainage. Objective Last Vital Signs Temp 36.4 C L 01/11/23 11:10 Pulse 102 H 01/11/23 11:10 Resp 18 01/11/23 11:10 BP 125/58 L 01/11/23 11:10 Pulse Ox 92 01/11/23 11:10 Laboratory Results - last 24 hr 01/11/23 01/11/23 01/11/23 04:47 06:18 06:18 WBC 6.37 RBC 3.30 L Hgb 8.9 L Hct 30.1 L MCV 91 MCH 27.0 MCHC 29.6 L RDW 17.5 H Plt Count 141 MPV 11.6 H Immature Gran % 0.3 Neutrophils % 78.0 Lymphocytes % 11.0 Monocytes % 9.9 Eosinophils % 0.6 Basophils % 0.2 Nucleated RBC % 0.0 Absolute Neutrophils 4.97 Absolute Lymphocytes 0.70 L Absolute Monocytes 0.63 Absolute Eosinophils 0.04 Absolute Basophils 0.01 Sodium 141 Potassium 3.5 Chloride 101 Carbon Dioxide 31.9 Anion Gap 8.1 BUN 66 H Creatinine 2.9 H Est GFR (CKD-EPI 2020) 16.58 Glucose 175 H Calcium 8.4 L C-Reactive Protein 0.23 Stl C.difficile Tox PCR Positive A Time Spent with Patient Time Spent with Patient: 25-34 minutes Time was spent: preparing to see the patient(eg.review tests), ordering medications,tests, procedures, indepentently interpreting results and counseling the patient
[2023-01-11] MEDS: Loperamide 2 MG CAP PO ×2 (17:41→23:45)
[2023-01-12 00:20] VITALS: O2SAT 95
[2023-01-12] MEDS: Acetaminophen 325 MG TAB PO (03:55)
[2023-01-12 05:13] VITALS: BP 145/81; PULSE 90; RESP 18; TEMP 36.7; O2SAT 100
[2023-01-12] MEDS: Heparin 5,000 UNITS/ML VIAL 5000 UNITS SC ×2 (06:16→14:05)
[2023-01-12] MEDS: Normal Saline Flush 10 ML SYR IVP (06:16)
[2023-01-12 06:37] LABS: Abs Immature Grans 0.03 10^3/uL (0.0-0.06); Absolute Basophil Count 0.01 10^3/uL (0.0-0.2); Absolute Eosinophil Count 0.06 10^3/uL (0.0-0.7); Absolute Lymphocyte Count 0.88 10^3/uL (1.2-3.4); Absolute Monocyte Count 0.68 10^3/uL (0.1-0.8); Absolute Neutrophil Count 4.02 10^3/uL (1.2-6.7); Basophils % 0.2; Eosinophils % 1.1; HCT 30.6 % (36.0-46.0); Immature Grans % 0.5; Lymphocytes % 15.5; MCH 26.7 pg (27.0-33.0); MCHC 29.4 % (32.0-36.0); MCV 91 fL (80-95); MPV 11.5 fL (8.0-11.0); Neutrophils % 70.7; Platelet Count 137 10^3/uL (130-400); RBC 3.37 10^6/uL (3.93-5.22); RDW 17.9 % (11.7-14.6); RDW-SD 59.3 fL; WBC 5.68 10^3/uL (4.4-10.8)
[2023-01-12 06:47] LABS: BUN 73 mg/dL (7-18); Calcium 8.2 mg/dL (8.5-10.1); Chloride 100 mmol/L (98-107); Estimated GFR 15.92 (mL/min/1.73m2); Glucose 227 mg/dL (74-106); Potassium 3.8 mmol/L (3.5-5.1); Sodium 137 mmol/L (136-145)
[2023-01-12 07:54] VITALS: BP 108/74; PULSE 76; RESP 19; TEMP 36.4; O2SAT 93
[2023-01-12] MEDS: Cilostazol 100 MG TAB PO ×2 (07:54→20:51)
[2023-01-12] MEDS: Insulin Aspart 300 UNITS/3 ML PEN SC ×5 (07:55→20:55)
[2023-01-12] MEDS: Budesonide/Formoterol 80/4.5 6.9 GM 60 PUFF INH IH ×2 (08:02→19:17)
[2023-01-12] MEDS: rOPINIRole 0.5 MG TAB 0.25 MG PO ×2 (08:29→16:35)
[2023-01-12] MEDS: predniSONE 5 MG TAB PO (08:31)
[2023-01-12] MEDS: Clopidogrel 75 MG TAB PO (08:31)
[2023-01-12] MEDS: predniSONE 10 MG TAB PO (08:31)
[2023-01-12] MEDS: Aspirin E.C. 81 MG TABEC PO (08:32)
[2023-01-12] MEDS: Cetirizine 10 MG TAB 5 MG PO (08:32)
[2023-01-12] MEDS: Vancomycin 125 MG CAP PO ×4 (08:32→20:51)
[2023-01-12] MEDS: Sacubitril/Valsartan 24 mg/26 mg TAB 1 EACH PO ×2 (08:32→20:51)
[2023-01-12] MEDS: Cholecalciferol (Vitamin D3) 1,000 UNIT TAB 1000 UNITS PO (08:32)
[2023-01-12] MEDS: Docusate Sodium 100 MG CAP PO (08:33)
--- NOTE | 2023-01-12 08:40 | CMPROGNOTE_ITS ---
- If Service Date Differs Date of service: 01/12/23 Time of Service: 08:40 Care Management Progress Note S/O:Beth was sitting up on the side of her bed when CM met with her this morning. She now has C. Difficile and has been having diarrhea, although she stated that it has improved since yesterday. Beth's peripheral edema also appears to be improved. Her vital signs are stable and she remains afebrile. Beth asked CM to check on her wheelchair which she left at [facility]. When CM reached out to Lida to update her, Lida informed CM that Beth's walker and wheelchair were both safe in her room at [facility]. A:Beth is a 72 year old woman admitted on 01/06/23 with cellulitis and CHF P:Beth will be discharged back to [facility] when medically cleared by the provider. She will return for short term rehab with a plan to transition to middle or intermediate school principal care. She will follow up with facility providers and plan of care and transport via w/c van. CM will continue to support Beth and assess for ongoing discharge needs.
[2023-01-12] MEDS: Bumetanide 1 MG/4 ML VIAL 2 MG IVP ×2 (08:45→16:38)
[2023-01-12] MEDS: Insulin Glargine 300 UNITS/3 ML PEN 30 UNITS SC (10:00)
[2023-01-12 14:26] VITALS: BP 125/60; PULSE 113; RESP 18; TEMP 36.6; O2SAT 94
--- NOTE | 2023-01-12 16:22 | PT.INTREAT ---
Date of service: 01/12/23 Time of Service: 14:20 PT Notes Visit Reasons: Cellulitis Right Foot, CHF Exacerbation Inpatient Physical Therapy Treatment Note [facility] Date: 01/12/2023 PRECAUTIONS: Activity as tolerated, fall SUBJECTIVE: Beth is eventually agreeable to participating in PT. She reports that she really does not feel well today. She feels very weak today. OBJECTIVE:? Pain: Patient c/o R foot pain with gait training and to touch ? BED MOBILITY/TRANSFERS? Sit-stand: SBA? Stand-sit: SBA ? GAIT? Assistive Device: FWW ? Weight bearing: Full Assist: SBA ? Distance: 15'? Deviation: Slow pacing, SOB, on 2L O2, significant fatigue ? ASSESSMENT:? Patient tolerated session with c/o increased fatigue with all activity, which limited her ability to participate today. PLAN: Continue with global strengthening and general conditioning for improved mobility and activity tolerance. TREATMENT CODE/TIME: Session 1: Refused Session 2: 25 minutes; 17351 x2 (12:45)
--- NOTE | 2023-01-12 16:31 | PHA.REVIEW2 ---
Pharmacy Admission Review - Admission Clinical Review (Last Reviewed 01/06/23 @ 22:14 by Jessica Mcfadden DO) Cellulitis of foot, right (Acute) Chronic anemia (Acute) Elevated troponin (Acute) Pulmonary infiltrate (Acute) Acute kidney injury superimposed on chronic kidney disease (Acute) Chronic respiratory failure with hypoxia (Acute) CKD (chronic kidney disease) stage 4, GFR 15-29 ml/min (Acute) Non-ST elevation [place] (NSTEMI) (Acute ~10/2022) codeine Adverse Reaction (Severe, Verified 01/06/23 14:02) Cardiac Dysrythmia indomethacin Adverse Reaction (Intermediate, Verified 01/06/23 14:02) Cardiac Dysrythmia lisinopril Adverse Reaction (Verified 01/06/23 14:02) cough Resuscitation Status DNR/DNI Height 5 ft 6 in Weight 85.7 kg - Renal Dosing Renal Dosing: BUN 73 mg/dL (7-18) H 01/12/23 06:25 Creatinine 3.0 mg/dL (0.55-1.02) H 01/12/23 06:25 Medications needing adjustments: Reviewed (eCrCl 18.4 ml/min, meropenem is renally adjusted) - Anticoagulation Anticoagulation: Hgb 9.0 g/dL (11.2-15.7) L 01/12/23 06:25 Hct 30.6 % (36.0-46.0) L 01/12/23 06:25 Plt Count 137 10^3/uL (130-400) 01/12/23 06:25 Creatinine 3.0 mg/dL (0.55-1.02) H 01/12/23 06:25 DVT Prophylaxis: Reviewed Medications: Heparin - Opiate Usage Evaluate Pain Scale/Pains Meds: Reviewed - Relevant Labs Sodium 137 mmol/L (136-145) 01/12/23 06:25 Potassium 3.8 mmol/L (3.5-5.1) 01/12/23 06:25 Chloride 100 mmol/L (98-107) 01/12/23 06:25 Magnesium 2.0 mg/dL (1.8-2.4) 01/10/23 06:27 C-Reactive Protein 0.23 mg/dL (0.0-0.3) 01/11/23 06:18 - DM Control DM Control: Glucose 227 mg/dL (74-106) H 01/12/23 06:25 Finger Stick Blood Glucose 407 Finger Stick Blood Glucose 407 Finger Stick Blood Glucose 317 Finger Stick Blood Glucose 317 Finger Stick Blood Glucose 317 Finger Stick Blood Glucose 227 DM Control: Reviewed Insulin Dosing, Diabetic Medication: aspart per SS, glargine 30u daily - Cardiac Review Cardiac Review: Troponin I 61 ng/L (<or=60) H 01/06/23 22:00 BP, HR, EF%: Reviewed List meds needing interventions: did not tolerate introduction of jardiance + spironolactone, change IVP bumex to PO? - Qtc Review QTc: N/A - IV to PO Switch IV Medications: Reviewed (still receiving IVP bumex and IV meropenem) - Home Meds Home Med List reviewed: Reviewed (all ordered) - Current meds Current Medication Order Review: Reviewed (diuresing with bumex, treating cellulitis with meropenem (dapto dc'd upon return of negative MRSA swab))
[2023-01-12] MEDS: Loperamide 2 MG CAP PO (16:51)
[2023-01-12 17:33] LABS: Glucose 417 mg/dL (74-106)
--- NOTE | 2023-01-12 18:37 | PGE_ITS ---
Date of Service Date of service: 01/12/23 Time of Service: 18:39 Assessment and Plan Assessment and plan (1) Cellulitis of foot, right: Status: Acute Assessment and plan: Continue Meropenem. s/p Daptomycin ( MRSA screen negative). COnsider switching to cefazolin or cefepime. No OM per XR. Continue compression. Resume diuresis. (2) C. difficile colitis: Status: Acute Assessment and plan: Clinically better. COnitnue PO vanco. I added probiotics. (3) CKD (chronic kidney disease): Status: Chronic Assessment and plan: Resume diuretics and monitor. (4) Chronic anemia: Status: Acute Assessment and plan: Iron deficiency anemia. S/p venofer 300mg on 01/10 and 01/11. Considering EPO. Continue to monitor - H/H stable; no active bleeding; I suspect a dilutional component as well. (5) CHF (congestive heart failure): Status: Chronic Assessment and plan: Acute on CHFrEF. Continue bumex, consider addition of aldactone. (6) Elevated troponin: Status: Acute Assessment and plan: Borderline elevations not c/w ACS. Would not change therapy at this time. (7) Pulmonary infiltrate: Status: Acute Assessment and plan: Clinically, this is CHF. Continue diuresis, consider addition of aldactone, encourage pulmonary toilet. (8) Acute kidney injury superimposed on chronic kidney disease: Status: Acute Assessment and plan: Cr tolerating diuresis. (9) Type 2 diabetes mellitus with retinopathy of both eyes, with long-term current use of insulin: Status: Chronic Assessment and plan: Uptitrate her SSI to moderate. Continue lantus at 30 units daily. (10) Chronic obstructive pulmonary disease: Status: Chronic Assessment and plan: Continue lbuterol prn, Bevespi aerosphere Qualifiers: COPD type: emphysema Emphysema type: centrilobular Qualified Code(s): J43.2 - Centrilobular emphysema (11) Polymyalgia rheumatica: Status: Chronic Assessment and plan: Continue home prednisone 15 mg daily. (12) DVT prophylaxis: Status: Acute Assessment and plan: SC heparin (13) Discharge planning issues: Status: Acute Assessment and plan: DNR/DNI Contiues to require hospitalization Subjective Subjective Interval history since last seen: Ms Pratt states she feels sy, feels bloated - it's not that different from her baseline. Last time she had diarrhea was this morning. Denies dizziness, chest pain, shortness of breath. Reports nonproductive cough for a bout a week and that her legs are swollen and her right leg is leaking. Exam Narrative Exam Narrative: General: female who is sitting up in a chair, A&Ox3, coughing HEENT: EOMI, MMM Heart: mostly RR with an occasional extra beat Lungs: Diminished breath sounds B Abdomen: soft, distended, midline large ventral hernia, nontender Extremities: 3+ pitting edema BLEs, symmetric, TTP Objective Last Vital Signs Temp 36.6 C 01/12/23 14:26 Pulse 113 H 01/12/23 14:26 Resp 18 01/12/23 14:26 BP 125/60 01/12/23 14:26 Pulse Ox 94 01/12/23 14:26 Laboratory Results - last 24 hr 01/12/23 01/12/23 01/12/23 06:25 06:25 17:07 WBC 5.68 RBC 3.37 L Hgb 9.0 L Hct 30.6 L MCV 91 MCH 26.7 L MCHC 29.4 L RDW 17.9 H Plt Count 137 MPV 11.5 H Immature Gran % 0.5 Neutrophils % 70.7 Lymphocytes % 15.5 Monocytes % 12.0 Eosinophils % 1.1 Basophils % 0.2 Nucleated RBC % 0.0 Absolute Neutrophils 4.02 Absolute Lymphocytes 0.88 L Absolute Monocytes 0.68 Absolute Eosinophils 0.06 Absolute Basophils 0.01 Sodium 137 Potassium 3.8 Chloride 100 Carbon Dioxide 31.0 Anion Gap 6.0 BUN 73 H Creatinine 3.0 H Est GFR (CKD-EPI 2020) 15.92 Glucose 227 H 417 H Calcium 8.2 L Time Spent with Patient Time Spent with Patient: 25-34 minutes Time was spent: preparing to see the patient(eg.review tests), obtaining and/or reviewing separately otained hiistory, ordering medications,tests, procedures, referring, communicating with other health pediatric acute care unit nurse, indepentently interpreting results, counseling the patient and care coordination
[2023-01-12 20:00] VITALS: BP 125/60; PULSE 100; RESP 18; TEMP 36.8; O2SAT 94
--- NOTE | 2023-01-12 21:43 | NUR.NOTE ---
Nursing Note:explained to the patient that 30 minutes ago I had asked her if she wanted a snack, drink and / or to get washed up for bed. She said she needed nothing . yet still continues to ring the bob every 5 minutes for something that I had already offered her prior to the last time she rang for a nurse. So far since 7 p she rang separate times for a snack, lights on or off, to be covered up. 2 g-joan, to go to her chair, to go to bed, to be washed up. at each time I asked her if she needed anything ( to be covered up , drink etc...) she said no .
[2023-01-12 23:06] VITALS: BP 130/60; PULSE 98; RESP 18; TEMP 36.7; O2SAT 94
[2023-01-13 02:56] VITALS: BP 128/72; PULSE 98; RESP 16; TEMP 36.7; O2SAT 94
[2023-01-13] MEDS: Albuterol HFA 8 GM 60 PUFF INH IH ×2 (04:55→19:46)
[2023-01-13] MEDS: Heparin 5,000 UNITS/ML VIAL 5000 UNITS SC ×3 (05:45→21:17)
[2023-01-13 06:16] LABS: Abs Immature Grans 0.02 10^3/uL (0.0-0.06); Absolute Basophil Count 0.01 10^3/uL (0.0-0.2); Absolute Eosinophil Count 0.02 10^3/uL (0.0-0.7); Absolute Lymphocyte Count 0.85 10^3/uL (1.2-3.4); Absolute Monocyte Count 0.62 10^3/uL (0.1-0.8); Absolute Neutrophil Count 4.69 10^3/uL (1.2-6.7); Basophils % 0.2; Eosinophils % 0.3; HCT 31.7 % (36.0-46.0); HGB 9.2 g/dL (11.2-15.7); Immature Grans % 0.3; Lymphocytes % 13.7; MCH 26.7 pg (27.0-33.0); MCV 92 fL (80-95); MPV 11.6 fL (8.0-11.0); Neutrophils % 75.5; Platelet Count 144 10^3/uL (130-400); RBC 3.45 10^6/uL (3.93-5.22); RDW 17.6 % (11.7-14.6); RDW-SD 58.8 fL; WBC 6.21 10^3/uL (4.4-10.8)
[2023-01-13 06:31] LABS: Anion Gap 8.1 mmol/L (3-11); BUN 72 mg/dL (7-18); C-Reactive Protein 0.16 mg/dL (0.0-0.3); CO2 29.9 mmol/L (21.0-32.0); Calcium 8.5 mg/dL (8.5-10.1); Chloride 101 mmol/L (98-107); Estimated GFR 15.92 (mL/min/1.73m2); Glucose 164 mg/dL (74-106); Magnesium 2.1 mg/dL (1.8-2.4); Potassium 3.6 mmol/L (3.5-5.1); Sodium 139 mmol/L (136-145)
[2023-01-13] MEDS: Cilostazol 100 MG TAB PO ×2 (07:50→21:15)
[2023-01-13] MEDS: Insulin Aspart 300 UNITS/3 ML PEN SC ×3 (07:51→21:16)
[2023-01-13] MEDS: rOPINIRole 0.5 MG TAB 0.25 MG PO ×2 (07:53→16:24)
[2023-01-13] MEDS: Cetirizine 10 MG TAB 5 MG PO (07:55)
[2023-01-13] MEDS: Sacubitril/Valsartan 24 mg/26 mg TAB 1 EACH PO ×2 (07:55→21:15)
[2023-01-13] MEDS: predniSONE 5 MG TAB PO (07:56)
[2023-01-13] MEDS: predniSONE 10 MG TAB PO (07:56)
[2023-01-13] MEDS: Aspirin E.C. 81 MG TABEC PO (07:58)
[2023-01-13] MEDS: Cholecalciferol (Vitamin D3) 1,000 UNIT TAB 1000 UNITS PO (07:58)
[2023-01-13] MEDS: Vancomycin 125 MG CAP PO ×3 (07:58→16:24)
[2023-01-13] MEDS: Insulin Glargine 300 UNITS/3 ML PEN 30 UNITS SC (08:02)
[2023-01-13 08:03] VITALS: BP 112/45; PULSE 98; RESP 18; TEMP 36; O2SAT 95
[2023-01-13] MEDS: Clopidogrel 75 MG TAB PO (08:20)
[2023-01-13] MEDS: Budesonide/Formoterol 80/4.5 6.9 GM 60 PUFF INH IH ×2 (08:23→19:45)
--- NOTE | 2023-01-13 08:47 | CMPROGNOTE_ITS ---
- If Service Date Differs Date of service: 01/13/23 Time of Service: 08:47 Care Management Progress Note S/O:Beth was sitting up on the side of her bed when CM met with her this morning. She informed CM that she had just woken up and was feeling pretty good. Beth shared how lonely she is feeling because she has not had any visitors in the past couple of days. Her friend Meenakshi is uncomfortable in the plastic isolation gown and her daughter Mindy has a cold and does not want to give it to Beth. Clinically she is stable and remains afebrile. Beth still has edema in her legs and medications changes were made today. A:Beth is a 72 year old woman admitted on 01/06/23 with cellulitis and CHF P:Beth will be discharged back to [facility] when medically cleared by the provider. 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 She will follow up with facility providers and plan of care and transport via w/c van. CM will continue to support Beth and assess for ongoing discharge needs.
[2023-01-13] MEDS: Bumetanide 1 MG/4 ML VIAL 4 MG IVP ×2 (09:04→16:24)
[2023-01-13 11:30] VITALS: BP 117/55; PULSE 98; RESP 18; TEMP 36.4; O2SAT 91
[2023-01-13] MEDS: Spironolactone 25 MG TAB PO (12:08)
--- NOTE | 2023-01-13 13:59 | PT.INTREAT ---
Date of service: 01/13/23 Time of Service: 13:10 PT Notes Visit Reasons: Cellulitis Right Foot, CHF Exacerbation Inpatient Physical Therapy Treatment Note [facility] Date: 01/13/2023 PRECAUTIONS: Activity as tolerated, fall SUBJECTIVE: Beth is eventually agreeable to participating in PT. She reports that she does not feel well today, although does feel slightly better than yesterday. OBJECTIVE:? Pain: Patient c/o R foot pain with gait training and to touch ? BED MOBILITY/TRANSFERS? Sit-supine: S with HOB at 20 degrees Sit-stand: SBA? Stand-sit: SBA ? GAIT? Assistive Device: FWW ? Weight bearing: Full Assist: SBA ? Distance: 20'? Deviation: Slow pacing, SOB, on 2L O2, significant fatigue THEREX: Patient was instructed in a LE strengthening program, completed while seated at EOB, to include: ankle pumps, LAQ and hip flexion. Patient demonstrates limited ability to complete full range with all exercises due to weakness. ? ASSESSMENT:? Patient tolerated session with c/o increased fatigue with all activity, which limited her ability to participate today. PLAN: Continue with global strengthening and general conditioning for improved mobility and activity tolerance. TREATMENT CODE/TIME: Session 1: Refused Session 2: 25 minutes; [id number], [id number] (13:10)
[2023-01-13 14:47] VITALS: BP 121/75; PULSE 82; RESP 18; TEMP 36.3; O2SAT 99
--- NOTE | 2023-01-13 18:10 | PGE_ITS ---
Date of Service Date of service: 01/13/23 Time of Service: 17:50 Assessment and Plan Assessment and plan (1) Cellulitis of foot, right: Status: Acute Assessment and plan: Continue Meropenem. s/p Daptomycin ( MRSA screen negative). Consider narrowing spectrum of abx. No OM per XR. Continue compression. Intensify diuresis. (2) C. difficile colitis: Status: Acute Assessment and plan: Diarrhea returned. Increase PO vancomycin, add questran, continue probiotics. (3) CKD (chronic kidney disease): Status: Chronic Assessment and plan: Cr stable on diuretics. Consider bumex gtt. (4) Chronic anemia: Status: Acute Assessment and plan: Iron deficiency anemia. S/p venofer 300mg on 01/10 and 01/11. Considering EPO. Continue to monitor - H/H stable; no active bleeding; I suspect a dilutional component as well. (5) CHF (congestive heart failure): Status: Chronic Assessment and plan: Acute on CHFrEF. Continue bumex, spironolactone added. (6) Elevated troponin: Status: Acute Assessment and plan: Borderline elevations not c/w ACS. Would not change therapy at this time. (7) Pulmonary infiltrate: Status: Acute Assessment and plan: Clinically, this is CHF. Continue diuresis, add aldactone,, encourage pulmonary toilet. (8) Acute kidney injury superimposed on chronic kidney disease: Status: Acute Assessment and plan: Cr tolerating diuresis. (9) Type 2 diabetes mellitus with retinopathy of both eyes, with long-term current use of insulin: Status: Chronic Assessment and plan: Pt refuses some of her insulin doses. Continue lantus at 30 units daily + moderate SSI. (10) Chronic obstructive pulmonary disease: Status: Chronic Assessment and plan: Continue lbuterol prn, Bevespi aerosphere Qualifiers: COPD type: emphysema Emphysema type: centrilobular Qualified Code(s): J43.2 - Centrilobular emphysema (11) Polymyalgia rheumatica: Status: Chronic Assessment and plan: Continue home prednisone 15 mg daily. (12) DVT prophylaxis: Status: Acute Assessment and plan: SC heparin (13) Discharge planning issues: Status: Acute Assessment and plan: DNR/DNI Contiues to require hospitalization Subjective Subjective Interval history since last seen: Ms Pratt feels better. Denies dizziness, chest pain, shortness of breath, nausea. Still had diarrhea (two times today). Legs are swollen - wrapped. She has been elevating her legs. Exam Narrative Exam Narrative: General: female, A&Ox3, sitting up at the edge of the bed, looks better HEENT: EOMI, MMM Heart: mostly RR with an occasional extra beat Lungs: Diminished breath sounds B Abdomen: soft, distended, midline large ventral hernia, nontender Extremities: 2+ pitting edema BLEs, BLEs wrapped in tyree wraps, symmetric Objective Last Vital Signs Temp 36.3 C L 01/13/23 14:47 Pulse 82 01/13/23 14:47 Resp 18 01/13/23 14:47 BP 121/75 01/13/23 14:47 Pulse Ox 99 01/13/23 14:47 Laboratory Results - last 24 hr 01/13/23 01/13/23 05:35 05:45 WBC 6.21 RBC 3.45 L Hgb 9.2 L Hct 31.7 L MCV 92 MCH 26.7 L MCHC 29.0 L RDW 17.6 H Plt Count 144 MPV 11.6 H Immature Gran % 0.3 Neutrophils % 75.5 Lymphocytes % 13.7 Monocytes % 10.0 Eosinophils % 0.3 Basophils % 0.2 Nucleated RBC % 0.0 Absolute Neutrophils 4.69 Absolute Lymphocytes 0.85 L Absolute Monocytes 0.62 Absolute Eosinophils 0.02 Absolute Basophils 0.01 Sodium 139 Potassium 3.6 Chloride 101 Carbon Dioxide 29.9 Anion Gap 8.1 BUN 72 H Creatinine 3.0 H Est GFR (CKD-EPI 2020) 15.92 Glucose 164 H Calcium 8.5 Magnesium 2.1 C-Reactive Protein 0.16 Time Spent with Patient Time Spent with Patient: 35-49 minutes Time was spent: preparing to see the patient(eg.review tests), obtaining and/or reviewing separately otained hiistory, ordering medications,tests, procedures, referring, communicating with other health inspector health care facilities, indepentently int erpreting results, counseling the patient and care coordination
[2023-01-13] MEDS: Cholestyramine/Aspartame PKT 1 EACH PO (19:12)
[2023-01-13 19:16] VITALS: BP 127/72; PULSE 126; RESP 18; TEMP 36.4; O2SAT 95
[2023-01-13] MEDS: Normal Saline Flush 10 ML SYR IVP (21:15)
[2023-01-13] MEDS: Vancomycin 125 MG CAP 250 MG PO (21:16)
[2023-01-13 22:41] VITALS: BP 102/65; PULSE 95; RESP 18; TEMP 36.3; O2SAT 95
[2023-01-14] VITALS (8 sets, daily range): BP systolic 108–140; BP diastolic 67–85; PULSE 80–115; RESP 17–19; TEMP 36.3–36.8; O2SAT 94–99
[2023-01-14] MEDS: Heparin 5,000 UNITS/ML VIAL 5000 UNITS SC ×3 (05:36→21:32)
[2023-01-14 07:08] LABS: Abs Immature Grans 0.02 10^3/uL (0.0-0.06); Absolute Basophil Count 0.01 10^3/uL (0.0-0.2); Absolute Eosinophil Count 0.05 10^3/uL (0.0-0.7); Absolute Lymphocyte Count 1.02 10^3/uL (1.2-3.4); Absolute Monocyte Count 0.61 10^3/uL (0.1-0.8); Absolute Neutrophil Count 5.04 10^3/uL (1.2-6.7); Basophils % 0.1; Eosinophils % 0.7; HCT 32.5 % (36.0-46.0); HGB 9.3 g/dL (11.2-15.7); Immature Grans % 0.3; Lymphocytes % 15.1; MCH 26.6 pg (27.0-33.0); MCHC 28.6 % (32.0-36.0); MCV 93 fL (80-95); MPV 11.3 fL (8.0-11.0); Neutrophils % 74.8; Platelet Count 158 10^3/uL (130-400); RDW 17.9 % (11.7-14.6); RDW-SD 60.9 fL; WBC 6.75 10^3/uL (4.4-10.8)
[2023-01-14 07:25] LABS: Anion Gap 5.5 mmol/L (3-11); BUN 72 mg/dL (7-18); CO2 31.5 mmol/L (21.0-32.0); Calcium 8.5 mg/dL (8.5-10.1); Chloride 101 mmol/L (98-107); Estimated GFR 15.92 (mL/min/1.73m2); Glucose 185 mg/dL (74-106); Magnesium 2.2 mg/dL (1.8-2.4); Potassium 3.8 mmol/L (3.5-5.1); Sodium 138 mmol/L (136-145)
[2023-01-14] MEDS: Insulin Glargine 300 UNITS/3 ML PEN 30 UNITS SC (07:50)
[2023-01-14] MEDS: Cilostazol 100 MG TAB PO ×2 (07:50→20:30)
[2023-01-14] MEDS: predniSONE 5 MG TAB PO (07:52)
[2023-01-14] MEDS: predniSONE 10 MG TAB PO (07:52)
[2023-01-14] MEDS: Clopidogrel 75 MG TAB PO (07:54)
[2023-01-14] MEDS: Vancomycin 125 MG CAP 250 MG PO ×4 (07:55→20:30)
[2023-01-14] MEDS: Albuterol HFA 8 GM 60 PUFF INH IH ×2 (07:59→12:39)
[2023-01-14] MEDS: Budesonide/Formoterol 80/4.5 6.9 GM 60 PUFF INH IH ×2 (08:00→20:31)
[2023-01-14] MEDS: Sacubitril/Valsartan 24 mg/26 mg TAB 1 EACH PO ×2 (08:03→20:30)
[2023-01-14] MEDS: Cholecalciferol (Vitamin D3) 1,000 UNIT TAB 1000 UNITS PO (08:03)
[2023-01-14] MEDS: Aspirin E.C. 81 MG TABEC PO (08:03)
[2023-01-14] MEDS: Spironolactone 25 MG TAB PO (08:03)
[2023-01-14] MEDS: rOPINIRole 0.5 MG TAB 0.25 MG PO ×2 (08:05→18:07)
[2023-01-14] MEDS: Cetirizine 10 MG TAB 5 MG PO (08:05)
[2023-01-14] MEDS: Insulin Aspart 300 UNITS/3 ML PEN SC ×4 (08:12→21:31)
[2023-01-14] MEDS: Bumetanide 1 MG/4 ML VIAL 4 MG IVP (08:16)
--- NOTE | 2023-01-14 09:10 | PDOC.CMPRO ---
- If Service Date Differs Date of service: 01/14/23 Time of Service: 09:10 Care Management Progress Note S/O:Beth was sitting up on the side of her bed when CM met with her this morning. She appeared a bit teary and shared that she had a few upsetting things happen this morning. She explained her specific concerns to CM who relayed them to the CC. Beth still has lower extremity edema and has had weepy drainage today. One of Beth's biggest issues is that she remains on isolation. She had been told that it could be discontinued when there was no more diarrhea. Her friends and family have stopped visiting since she was placed on isolation ands she reported being lonely. CM explained that it was safe to visit if properly attired. and offered to discuss with her friends and family if it would be helpful. A:Beth is a 72 year old woman admitted on 01/06/23 with cellulitis and CHF P:Beth will be discharged back to [facility] when medically cleared by the provider. 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 She will follow up with facility providers and plan of care and transport via w/c van. CM will continue to support Beth and assess for ongoing discharge needs.
--- NOTE | 2023-01-14 13:34 | PT.INTREAT ---
Date of service: 01/14/23 Time of Service: 13:15 PT Notes Visit Reasons: Cellulitis Right Foot, CHF Exacerbation Inpatient Physical Therapy Treatment Note [facility] Date: 01/14/2023 PRECAUTIONS: Activity as tolerated, fall SUBJECTIVE: Beth is eventually agreeable to participating in PT. She reports that she is feeling somewhat better today, although reports that during lunch she had a period where she felt she could not catch her breath, which she reports scared her. OBJECTIVE:? Pain: No c/o pain ? BED MOBILITY/TRANSFERS? Sit-stand: SBA? Stand-sit: SBA ? GAIT? Assistive Device: FWW ? Weight bearing: Full Assist: SBA ? Distance: 15' + 10'? Deviation: Slow pacing, SOB, on 2L O2, significant fatigue, seated rest ? ASSESSMENT:? Patient tolerated session with c/o increased fatigue and severe SOB with all activity, which limited her ability to participate today. PLAN: Continue with global strengthening and general conditioning for improved mobility and activity tolerance. TREATMENT CODE/TIME: Session 1: Refused Session 2: 25 minutes; [id number] x2 (13:15)
--- NOTE | 2023-01-14 17:53 | PGE_ITS ---
Date of Service Date of service: 01/14/23 Time of Service: 17:53 Assessment and Plan Assessment and plan (1) Cellulitis of foot, right: Status: Acute Assessment and plan: Continue Meropenem. s/p Daptomycin ( MRSA screen negative). Consider narrowing spectrum of abx. No OM per XR. Continue compression. Intensify diuresis (start bumex drip). (2) C. difficile colitis: Status: Acute Assessment and plan: Diarrhea stopped. Continue PO vancomycin, questran, continue probiotics. (3) CKD (chronic kidney disease): Status: Chronic Assessment and plan: Cr stable on diuretics. Start bumex gtt (4) Chronic anemia: Status: Acute Assessment and plan: Iron deficiency anemia. S/p venofer 300mg on 01/10 and 01/11. Considering EPO. Continue to monitor - H/H stable; no active bleeding; I suspect a dilutional component as well. (5) CHF (congestive heart failure): Status: Chronic Assessment and plan: Acute on CHFrEF. Continue bumex, spironolactone added. (6) Elevated troponin: Status: Acute Assessment and plan: Borderline elevations not c/w ACS. Would not change therapy at this time. (7) Pulmonary infiltrate: Status: Acute Assessment and plan: Clinically, this is CHF. Continue diuresis, (bumex gtt + aldactone), encourage pulmonary toilet. (8) Acute kidney injury superimposed on chronic kidney disease: Status: Acute Assessment and plan: Cr tolerating diuresis. (9) Type 2 diabetes mellitus with retinopathy of both eyes, with long-term current use of insulin: Status: Chronic Assessment and plan: Pt refuses some of her insulin doses. Continue lantus at 30 units daily + moderate SSI. (10) Chronic obstructive pulmonary disease: Status: Chronic Assessment and plan: Continue lbuterol prn, Bevespi aerosphere Qualifiers: COPD type: emphysema Emphysema type: centrilobular Qualified Code(s): J43.2 - Centrilobular emphysema (11) Polymyalgia rheumatica: Status: Chronic Assessment and plan: Continue home prednisone 15 mg daily. (12) DVT prophylaxis: Status: Acute Assessment and plan: SC heparin (13) Discharge planning issues: Status: Acute Assessment and plan: DNR/DNI Contiues to require hospitalization Subjective Subjective Interval history since last seen: Reports not seeing very much progress with her swollen legs, though her knees looks a little smaller. Denies dizziness, chest pain, states had an episode of shortness of breath during lunch which resolved with the use of albuterol, denies n/v. No diarrhea at all today. Had a soft formed BM. Exam Narrative Exam Narrative: General: female, A&Ox3, sitting up in a chair; daughter and friend Meenakshi are visiting her HEENT: EOMI, MMM Heart: mostly RR with an occasional extra beat Lungs: Diminished breath sounds B Abdomen: soft, distended, midline large ventral hernia, nontender Extremities: 2+ pitting edema BLEs, unchanged, BLEs wrapped in tyree wraps, R foot wound with erythematous borders, dressed Objective Last Vital Signs Temp 36.8 C 01/14/23 16:30 Pulse 108 H 01/14/23 16:30 Resp 18 01/14/23 16:30 BP 129/85 01/14/23 16:30 Pulse Ox 98 01/14/23 16:30 Laboratory Results - last 24 hr 01/14/23 01/14/23 06:25 06:25 WBC 6.75 RBC 3.50 L Hgb 9.3 L Hct 32.5 L MCV 93 MCH 26.6 L MCHC 28.6 L RDW 17.9 H Plt Count 158 MPV 11.3 H Immature Gran % 0.3 Neutrophils % 74.8 Lymphocytes % 15.1 Monocytes % 9.0 Eosinophils % 0.7 Basophils % 0.1 Nucleated RBC % 0.0 Absolute Neutrophils 5.04 Absolute Lymphocytes 1.02 L Absolute Monocytes 0.61 Absolute Eosinophils 0.05 Absolute Basophils 0.01 Sodium 138 Potassium 3.8 Chloride 101 Carbon Dioxide 31.5 Anion Gap 5.5 BUN 72 H Creatinine 3.0 H Est GFR (CKD-EPI 2020) 15.92 Glucose 185 H Calcium 8.5 Magnesium 2.2 Time Spent with Patient Time Spent with Patient: 25-34 minutes Time was spent: preparing to see the patient(eg.review tests), obtaining and/or reviewing separately otained hiistory, ordering medications,tests, procedures, referring, communicating with other health acute care registered nurse, indepentently interpreting results, counseling the patient and care coordination
[2023-01-14] MEDS: Cholestyramine/Aspartame PKT 1 EACH PO (18:26)
[2023-01-14] MEDS: Normal Saline Flush 10 ML SYR IVP (21:32)
[2023-01-15] MEDS: Albuterol HFA 8 GM 60 PUFF INH IH ×2 (01:24→05:27)
[2023-01-15 03:02] VITALS: BP 113/75; PULSE 117; RESP 18; TEMP 36.2; O2SAT 99
[2023-01-15] MEDS: Heparin 5,000 UNITS/ML VIAL 5000 UNITS SC (05:42)
[2023-01-15] MEDS: Budesonide/Formoterol 80/4.5 6.9 GM 60 PUFF INH IH (05:43)
[2023-01-15 06:19] LABS: Abs Immature Grans 0.02 10^3/uL (0.0-0.06); Absolute Basophil Count 0.01 10^3/uL (0.0-0.2); Absolute Lymphocyte Count 1.23 10^3/uL (1.2-3.4); Absolute Monocyte Count 0.73 10^3/uL (0.1-0.8); Absolute Neutrophil Count 5.47 10^3/uL (1.2-6.7); Basophils % 0.1; Eosinophils % 1.3; HCT 32.6 % (36.0-46.0); HGB 9.5 g/dL (11.2-15.7); Immature Grans % 0.3; Lymphocytes % 16.3; MCH 26.8 pg (27.0-33.0); MCHC 29.1 % (32.0-36.0); MCV 92 fL (80-95); MPV 10.7 fL (8.0-11.0); Monocytes % 9.7; Neutrophils % 72.3; Platelet Count 150 10^3/uL (130-400); RBC 3.54 10^6/uL (3.93-5.22); RDW 17.8 % (11.7-14.6); RDW-SD 59.7 fL; WBC 7.56 10^3/uL (4.4-10.8)
[2023-01-15 06:40] VITALS: BP 112/73; PULSE 120; RESP 18; TEMP 36.3; O2SAT 95
[2023-01-15 06:43] LABS: Anion Gap 7.5 mmol/L (3-11); BUN 72 mg/dL (7-18); CO2 29.5 mmol/L (21.0-32.0); CREATININE 2.7 mg/dL (0.55-1.02); Calcium 8.6 mg/dL (8.5-10.1); Chloride 100 mmol/L (98-107); Estimated GFR 18.06 (mL/min/1.73m2); Glucose 198 mg/dL (74-106); Magnesium 2.1 mg/dL (1.8-2.4); Potassium 3.9 mmol/L (3.5-5.1); Sodium 137 mmol/L (136-145)
--- NOTE | 2023-01-15 07:30 | RT.EKG_ITS ---
APPROVED REPORT Exam: Resting ECG Reason for Exam: tachycardia Patient Location: I HR:108 bpm ECG Measurements Heart Rate 108 AXIS TX 144 P 68 QRSd 89 QRS 63 QT 327 T 242 QTc 439 Conclusion Sinus tachycardia with irregular rate...V-rate 78-134, variation>10% Low voltage, extremity and precordial leads...extremity<0.5mV, precordial<1.0mV Anteroseptal infarct, old...Q >40mS, V1-V2 Nonspecific T abnormalities, lateral leads...T <-0.10mV, I aVL V5 V6
[2023-01-15 07:50] VITALS: O2SAT 95
[2023-01-15 08:15] VITALS: O2SAT 96
[2023-01-15] MEDS: Vancomycin 125 MG CAP 250 MG PO ×4 (08:24→20:12)
[2023-01-15] MEDS: Cetirizine 10 MG TAB 5 MG PO (08:24)
[2023-01-15] MEDS: Spironolactone 25 MG TAB PO (08:24)
[2023-01-15] MEDS: Docusate Sodium 100 MG CAP PO (08:24)
[2023-01-15] MEDS: Cholecalciferol (Vitamin D3) 1,000 UNIT TAB 1000 UNITS PO (08:24)
[2023-01-15] MEDS: predniSONE 10 MG TAB PO (08:24)
[2023-01-15] MEDS: predniSONE 5 MG TAB PO (08:24)
[2023-01-15] MEDS: Aspirin E.C. 81 MG TABEC PO (08:24)
[2023-01-15] MEDS: rOPINIRole 0.5 MG TAB 0.25 MG PO ×2 (08:25→16:40)
[2023-01-15] MEDS: Sacubitril/Valsartan 24 mg/26 mg TAB 1 EACH PO ×2 (08:25→20:13)
[2023-01-15] MEDS: Cilostazol 100 MG TAB PO ×2 (08:25→20:13)
[2023-01-15] MEDS: Clopidogrel 75 MG TAB PO (08:25)
[2023-01-15] MEDS: Insulin Glargine 300 UNITS/3 ML PEN 30 UNITS SC (08:30)
[2023-01-15] MEDS: Acetaminophen 325 MG TAB PO ×2 (08:53→21:21)
[2023-01-15] MEDS: Insulin Aspart 300 UNITS/3 ML PEN SC ×2 (08:54→18:04)
[2023-01-15] MEDS: Cholestyramine/Aspartame PKT 1 EACH PO (11:05)
[2023-01-15 11:08] VITALS: BP 109/69; PULSE 106; RESP 19; TEMP 35.9; O2SAT 96
--- NOTE | 2023-01-15 12:04 | PDOC.CMPRO ---
- If Service Date Differs Date of service: 01/15/23 Time of Service: 12:04 Care Management Progress Note S/O: Beth was sitting up in her chair when CM met with her. She stated that she is not feeling well, and feels that she is not getting better. CM stated that it is encouraging that she is out of bed today, which she agreed. Per report, she diuresed well yesterday, and she is no longer having diarrhea. She continues to require hospitalization. CM will continue to follow. A:Beth is a 72 year old woman admitted on 01/06/23 with cellulitis and CHF P:Beth will be discharged back to [facility] when medically cleared by the provider. 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 She will follow up with facility providers and plan of care and transport via w/c van. CM will continue to support Beth and assess for ongoing discharge needs.
--- NOTE | 2023-01-15 12:15 | PGE_ITS ---
Date of Service Date of service: 01/15/23 Time of Service: 12:15 Assessment and Plan Assessment and plan (1) Cellulitis of foot, right: Status: Acute Assessment and plan: Diabetic foot infection R foot. C/s podiatry. I do not know that she requires an MRI given the resolution of her increase in CRP. D/c meropenem and start cefepime (narrowing the spectrum). Discussed dosing with pharmacy. s/p Daptomycin ( MRSA screen negative). No OM per XR. Continue compression. Continue bumex gtt. I do not think she has a formerly diagonsed PAD. (2) CHF (congestive heart failure): Status: Chronic Assessment and plan: Acute on CHFrEF. LVEF 40% per echo in 10/23, with evidence of a small patent foramen ovale with [id number] flow. Continue bumex drip, increase spironolactone, add metolazone. Cr is actually improving with the bumex gtt. Qualifiers: Heart failure type: systolic Heart failure chronicity: acute on chronic Qualified Code(s): I50.23 - Acute on chronic systolic (congestive) heart failure (3) C. difficile colitis: Status: Acute Assessment and plan: Diarrhea stopped. Continue PO vancomycin, questran, continue probiotics. (4) Acute kidney injury superimposed on chronic kidney disease: Status: Acute Assessment and plan: Cr improving on bumex gtt + aldactone. Continue to monitor as we are intensifying diuresis. (5) Chronic anemia: Status: Acute Assessment and plan: Iron deficiency anemia. S/p venofer 300 mg on 01/10 and 01/11. Considering EPO. Continue to monitor - H/H stable; no active bleeding; I suspect a dilutional component as well. (6) Elevated troponin: Status: Acute Assessment and plan: Borderline elevations not c/w ACS. Would not change therapy at this time. (7) Pulmonary infiltrate: Status: Acute Assessment and plan: Clinically, this is CHF. Continue diuresis, (bumex gtt + aldactone + now metolazone), encourage pulmonary toilet. (8) Type 2 diabetes mellitus with retinopathy of both eyes, with long-term current use of insulin: Status: Chronic Assessment and plan: Pt refuses some of her insulin doses. Continue lantus at 30 units daily + moderate SSI. (9) Chronic obstructive pulmonary disease: Status: Chronic Assessment and plan: Continue albuterol prn, Bevespi Dimdimphere Qualifiers: COPD type: emphysema Emphysema type: centrilobular Qualified Code(s): J43.2 - Centrilobular emphysema (10) Polymyalgia rheumatica: Status: Chronic Assessment and plan: Continue home prednisone 15 mg daily. (11) DVT prophylaxis: Status: Acute Assessment and plan: SC heparin (12) Discharge planning issues: Status: Acute Assessment and plan: DNR/DNI Contiues to require hospitalization Subjective Subjective Interval history since last seen: Ms Pratt states she had another episode of shortness of breath this morning, better with albuterol. No diarrhea today - formed BM. She is not sure if she is seeing improvement in her legs since being started on a bumex drip. She politely declined a reis catheter. She is -2.26L negative as of yesterday and -1090 cc so far today. She denies dizziness, CP, nausea, abdominal pain. Exam Narrative Exam Narrative: General: female, A&Ox3, sitting up in a chair, having lunch HEENT: EOMI, MMM Heart: slightly irregular rate/rhythm Lungs: rales at B bases Abdomen: soft, distended, midline large ventral hernia, nontender Extremities: 2+ pitting edema BLEs, mildly improved from yesterday, BLEs wrapped in tyree wraps Objective Last Vital Signs Temp 35.9 C L 01/15/23 11:08 Pulse 106 H 01/15/23 11:08 Resp 19 01/15/23 11:08 BP 109/69 01/15/23 11:08 Pulse Ox 96 01/15/23 11:08 Laboratory Results - last 24 hr 01/15/23 01/15/23 06:07 06:07 WBC 7.56 RBC 3.54 L Hgb 9.5 L Hct 32.6 L MCV 92 MCH 26.8 L MCHC 29.1 L RDW 17.8 H Plt Count 150 MPV 10.7 Immature Gran % 0.3 Neutrophils % 72.3 Lymphocytes % 16.3 Monocytes % 9.7 Eosinophils % 1.3 Basophils % 0.1 Nucleated RBC % 0.0 Absolute Neutrophils 5.47 Absolute Lymphocytes 1.23 Absolute Monocytes 0.73 Absolute Eosinophils 0.10 Absolute Basophils 0.01 Sodium 137 Potassium 3.9 Chloride 100 Carbon Dioxide 29.5 Anion Gap 7.5 BUN 72 H Creatinine 2.7 H Est GFR (CKD-EPI 2020) 18.06 Glucose 198 H Calcium 8.6 Magnesium 2.1 Objective Narrative Objective Narrative: EKG: Sinus tachycardia (sinus arrhythmia), nonspecific ST-T abnormalities, no acute ishemia Time Spent with Patient Time Spent with Patient: 35-49 minutes Time was spent: preparing to see the patient(eg.review tests), obtaining and/or reviewing separately otained hiistory, ordering medications,tests, procedures, referring, communicating with other health progressive care nurse, indepentently interpreting results, counseling the patient and care coordination
--- NOTE | 2023-01-15 16:59 | POCOE_ITS ---
Date of service: 01/15/23 Time of Service: 15:45 Assessment and Plan Assessment and plan (1) Diabetic nephropathy: Status: Chronic (2) Type 2 diabetes mellitus with retinopathy of both eyes, with long-term current use of insulin: Status: Chronic (3) Cellulitis of foot, right: Status: Acute (4) Right foot infection: Status: Acute Assessment and plan: The patient was evaluated and treated. R LE cellulitis noted with foot abscess not ruled out. Recommend MRI to rule out abscess, considering the timeframe of cellulitis, lack of resolution at this point, continued significant pain present, and concerns of fluctuance at the area of the wound on the dorsal foot (evaluation limited due to severity of pain present). Clinical signs of PAD also noted. It seems an KEYONNA has been ordered, but I am unable to locate results in the chart. Recommend KEYONNA if not already conducted, and if low or possibly falsed elevated (calcifications), recommend vascular consult ([facility] [place]) prior to any definitive operative management History of Present Illness History of Present Illness Chief Complaint: R foot infection, celluliits Narrative: Beth Pratt is a 72 year old female with DM, CKD, CHF, and a number of other medical comorbidities, evaluated at bedside for a R foot infection. She notes a dorsal R foot wound, describes onset as a blister 1-2 weeks ago (daughter shows a photo), with subsequent R LE redness, swelling, and pain. She was admitted on 01/06/2023 and treated with IV Abx. When asked, she reports that the redness on the R foot and leg is much better than it was, the pain has improved, but the foot is still significantly painful to touch. She is wary of any touch and evaluation at bedside today (pt was evaluated when sitting in her chair). Consults Consult date: 01/15/23 [facility] All Active Problems (Updated 01/15/23 @ 17:07 by Hina Pickens DPM) Right foot infection (Acute) Discharge planning issues (Acute) DVT prophylaxis (Acute) C. difficile colitis (Acute) Cellulitis of foot, right (Acute) CKD (chronic kidney disease) (Chronic) Chronic anemia (Acute) CHF (congestive heart failure) (Chronic) Elevated troponin (Acute) Pulmonary infiltrate (Acute) Heart failure with reduced ejection fraction (Chronic) Acute kidney injury superimposed on chronic kidney disease (Acute) Chronic respiratory failure with hypoxia (Acute) CKD (chronic kidney disease) stage 4, GFR 15-29 ml/min (Acute) Non-ST elevation [place] (NSTEMI) (Acute ~10/2022) Type 2 diabetes mellitus with retinopathy of both eyes, with long-term current use of insulin (Chronic) Chronic obstructive pulmonary disease (Chronic) O2 dependent on 3L NC Polymyalgia rheumatica (Chronic) Carotid atherosclerosis (Chronic) Traumatic ecchymosis of right foot (Acute) Iron deficiency anemia (Chronic) Essential hypertension (Chronic) GERD (gastroesophageal reflux disease) (Chronic) Pulmonary nodule (Chronic) Nicotine dependence, cigarettes, uncomplicated (Chronic) Annual LDCT Osteoarthritis of hips, bilateral (Chronic) Diabetic nephropathy (Chronic) Ventral hernia (Chronic) Generalized anxiety disorder (Chronic) Benign positional vertigo (Chronic) 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 Father Diabetes Daughter No problems noted. Daughter No problems noted. Daughter No problems noted. Daughter No problems noted. 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 4 daughters Exam Cardio Other: R LE with phoenix shiny, and with calor and erythema. No pedal hair. Pulses non palpable with feet in dependent position. CFT delayed. Rubor noted, possibly exacerbated due to dependency, but likely infectious as well Skin Other: Full thickness wound dorsal R forefoot, areas of 3rd and 4th metatarsals dorsolaterally, ~3 cm in diameter. Although a thorough evaluation was not possible with the patient's pain, concerns present for fluctuance at the area of the wound and dorsal foot. No purulence emitted upon compression of the area, at least to which it was possible (significant pain), but with calor, erythema and edema R forefoot and distal leg Neuro Other: Unable to thorough assess today due to pain but with patient reporting a history of neuropathy (decreased sensation and paresthesias) Extrem Other: No significant musculoskeletal abnormalities noted other than significan gastroc equinus Results Last Vital Signs Temp 96.6 F L 01/15/23 11:08 Pulse 106 H 01/15/23 11:08 Resp 19 01/15/23 11:08 BP 109/69 01/15/23 11:08 Pulse Ox 96 01/15/23 11:08 Labs 01/15/23 06:07 01/15/23 06:07 Labs: Laboratory Results - last 24 hr 01/15/23 01/15/23 06:07 06:07 WBC 7.56 RBC 3.54 L Hgb 9.5 L Hct 32.6 L MCV 92 MCH 26.8 L MCHC 29.1 L RDW 17.8 H Plt Count 150 MPV 10.7 Immature Gran % 0.3 Neutrophils % 72.3 Lymphocytes % 16.3 Monocytes % 9.7 Eosinophils % 1.3 Basophils % 0.1 Nucleated RBC % 0.0 Absolute Neutrophils 5.47 Absolute Lymphocytes 1.23 Absolute Monocytes 0.73 Absolute Eosinophils 0.10 Absolute Basophils 0.01 Sodium 137 Potassium 3.9 Chloride 100 Carbon Dioxide 29.5 Anion Gap 7.5 BUN 72 H Creatinine 2.7 H Est GFR (CKD-EPI 2020) 18.06 Glucose 198 H Calcium 8.6 Magnesium 2.1 Imaging Imaging Studies: Foot Xrays were reviewed. No radiographic signs of osteomyelitis noted. Doppler US negative for DVT at admission.
[2023-01-15 20:41] VITALS: BP 114/76; PULSE 107; RESP 22; TEMP 36.4; O2SAT 95
[2023-01-15] MEDS: CEFEPIME 1 GM in Normal Saline 50 ML IVPB (21:21)
[2023-01-16] VITALS (7 sets, daily range): BP systolic 110–132; BP diastolic 71–76; PULSE 104–118; RESP 18–22; TEMP 36–36.8; O2SAT 91–96
--- NOTE | 2023-01-16 | DI.RAD_ITS ---
Exam(s) XR PORTABLE CHEST AP EXAM: XR PORTABLE CHEST AP CLINICAL HISTORY: shortness of breath TECHNIQUE: 2D digital imaging was performed of the chest. One image was obtained. An AP view was ob tained. COMPARISON: CR,XR XR PORTABLE CHEST AP from 01/11/2023 FINDINGS: MEDIASTINUM: Normal. HEART: Normal. PULMONARY VASCULATURE: There is diffuse pulmonary vascular prominence similar to the prior examinatio n. LUNGS: There has been some clearing in the lungs particularly in the bases. PLEURAL SPACE: Persistent small pleural effusions bilaterally. No pneumothorax. BONE:Within normal limits for the patient's age. OTHER FINDINGS:Normal. IMPRESSION: 1. Persistent pulmonary vascular congestion and bilateral pleural effusions. Improved infiltrates si nce the prior examination. DATA REPOSITORY: RADIATION DOSE DELIVERED:
[2023-01-16] MEDS: Acetaminophen 325 MG TAB PO (05:16)
[2023-01-16 06:59] LABS: Abs Immature Grans 0.02 10^3/uL (0.0-0.06); Absolute Eosinophil Count 0.07 10^3/uL (0.0-0.7); Absolute Lymphocyte Count 0.92 10^3/uL (1.2-3.4); Absolute Monocyte Count 0.67 10^3/uL (0.1-0.8); Absolute Neutrophil Count 4.76 10^3/uL (1.2-6.7); Eosinophils % 1.1; HCT 30.8 % (36.0-46.0); HGB 9.3 g/dL (11.2-15.7); Immature Grans % 0.3; Lymphocytes % 14.3; MCH 27.1 pg (27.0-33.0); MCHC 30.2 % (32.0-36.0); MCV 90 fL (80-95); MPV 11.5 fL (8.0-11.0); Monocytes % 10.4; Neutrophils % 73.9; Platelet Count 152 10^3/uL (130-400); RBC 3.43 10^6/uL (3.93-5.22); RDW 17.8 % (11.7-14.6); RDW-SD 58.6 fL; WBC 6.44 10^3/uL (4.4-10.8)
[2023-01-16 07:28] LABS: Anion Gap 5.1 mmol/L (3-11); BUN 73 mg/dL (7-18); C-Reactive Protein 0.28 mg/dL (0.0-0.3); CO2 32.9 mmol/L (21.0-32.0); CREATININE 2.7 mg/dL (0.55-1.02); Calcium 8.9 mg/dL (8.5-10.1); Chloride 100 mmol/L (98-107); Estimated GFR 18.06 (mL/min/1.73m2); Glucose 198 mg/dL (74-106); Magnesium 2.2 mg/dL (1.8-2.4); Potassium 3.7 mmol/L (3.5-5.1); Sodium 138 mmol/L (136-145)
[2023-01-16] MEDS: Sacubitril/Valsartan 24 mg/26 mg TAB 1 EACH PO ×2 (07:48→20:24)
[2023-01-16] MEDS: predniSONE 5 MG TAB PO (07:48)
[2023-01-16] MEDS: Cilostazol 100 MG TAB PO ×2 (07:48→20:24)
[2023-01-16] MEDS: Cholecalciferol (Vitamin D3) 1,000 UNIT TAB 1000 UNITS PO (07:49)
[2023-01-16] MEDS: Spironolactone 25 MG TAB 50 MG PO (07:49)
[2023-01-16] MEDS: metOLazone 2.5 MG TAB PO (07:49)
[2023-01-16] MEDS: Clopidogrel 75 MG TAB PO (07:49)
[2023-01-16] MEDS: Docusate Sodium 100 MG CAP PO (07:50)
[2023-01-16] MEDS: Cetirizine 10 MG TAB 5 MG PO (07:50)
[2023-01-16] MEDS: predniSONE 10 MG TAB PO (07:50)
[2023-01-16] MEDS: Aspirin E.C. 81 MG TABEC PO (07:50)
[2023-01-16] MEDS: Vancomycin 125 MG CAP 250 MG PO ×4 (07:50→20:25)
[2023-01-16] MEDS: rOPINIRole 0.5 MG TAB 0.25 MG PO ×2 (07:51→16:25)
[2023-01-16] MEDS: Insulin Aspart 300 UNITS/3 ML PEN SC ×4 (07:52→22:29)
--- NOTE | 2023-01-16 08:00 | DI.MRI_ITS ---
Exam(s) MR LOWER EXTREMITY RT WO EXAM: MR LOWER EXTREMITY RT WO CLINICAL HISTORY: diabetic foot ulcer, rule out abscess/osteomyeliti TECHNIQUE: Multiplanar multisequence MRI was attempted. Patient was only able to tolerate to sagitt al sequences, T1 and STIR. Therefore this is an incomplete exam. COMPARISON: CR,XR XR FOOT RT LIMITED from 01/06/2023 FINDINGS: SOFT TISSUES: There is edema on the dorsal aspect of the foot, most prominent over the midfoot and me tatarsals MARROW:No evidence of fracture nor bone contusion. No intraosseous signal to suggest osteomyelitis o n these limited sequences. There are no significant osseous lesions. OTHER: No susceptibility artifact from IMPRESSION: 1. There is subcutaneous edema over the entire dorsal aspect of the foot. This is most prominent ove r the midfoot and metatarsals. 2. No obvious abnormal intraosseous signal to suggest osteomyelitis, realizing the limitations of thi s limited study. DATA REPOSITORY:
[2023-01-16] MEDS: Insulin Glargine 300 UNITS/3 ML PEN 30 UNITS SC (09:34)
--- NOTE | 2023-01-16 09:56 | CMPROGNOTE_ITS ---
- If Service Date Differs Date of service: 01/16/23 Time of Service: 09:56 Care Management Progress Note S/O:Beth was sitting up in bed when CM met with her . She stated that she is really tired because she did not sleep last night. Beth also explained that she is not agreeable to using the new inhaler ordered for her. She informed CM that she sees Dr. Hugo in the community and only feels comfortable taking the medications ordered by her for her COPD. A:Beth is a 72 year old woman admitted on 01/06/23 with cellulitis and CHF P:Beth will be discharged back to [facility] when medically cleared by the provider. 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 She will follow up with facility providers and plan of care and transport via w/c van. CM will continue to support Beth and assess for ongoing discharge needs.
[2023-01-16] MEDS: Cholestyramine/Aspartame PKT 1 EACH PO (10:55)
--- NOTE | 2023-01-16 12:42 | PT.INPN ---
Date of service: 01/16/23 Time of Service: 10:02 PT Notes Visit Reasons: Cellulitis Right Foot, CHF Exacerbation Physical Therapy Inpatient Progress Note Date: 01/16/2023 Dates of Service: 01/08/2023 through 01/16/2023 Referring Doctor:Geoffrey Tobar MD PT Orders: PT CONSULT: Extendedn stay weakness. Exacerbation Chronic Cond.? Limited ability. Precautions: Activity as tolerated.? On 2 L of oxygen via NC. Patient Profile/Admitting Diagnosis:? Patient is a 72-year-old female who presented to the ED on 01/06/2023 with persistent swelling of both feet ans ruptured blister/ulcer of right foot.? Patient is diagnosed with cellulitis of R foot,? CKD, chronic anemia,? CHF,? elevated troponin,? pulmonary infiltrates,? acute of chroninc kidney injury,? DM type II,? COPD,? and polymyalgia rheumatica. PMHX: All Active Problems? Cellulitis of foot, right (Acute) CKD (chronic kidney disease) (Chronic) Chronic anemia (Acute) CHF (congestive heart failure) (Chronic) Elevated troponin (Acute) Pulmonary infiltrate (Acute) Heart failure with reduced ejection fraction (Chronic) Acute kidney injury superimposed on chronic kidney disease (Acute) Chronic respiratory failure with hypoxia (Acute) CKD (chronic kidney disease) stage 4, GFR 15-29 ml/min (Acute) Non-ST elevation [place] (NSTEMI) (Acute ~10/2022) Type 2 diabetes mellitus with retinopathy of both eyes, with long-term current use of insulin (Chronic) Chronic obstructive pulmonary disease (Chronic) O2 dependent on 3L NC Polymyalgia rheumatica (Chronic) Carotid atherosclerosis (Chronic) Traumatic ecchymosis of right foot (Acute) Iron deficiency anemia (Chronic) Essential hypertension (Chronic) GERD (gastroesophageal reflux disease) (Chronic) Pulmonary nodule (Chronic) Nicotine dependence, cigarettes, uncomplicated (Chronic) Annual LDCTOsteoarthritis of hips, bilateral (Chronic) Diabetic nephropathy (Chronic) Ventral hernia (Chronic) Generalized anxiety disorder (Chronic) Benign positional vertigo (Chronic) 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 COVID-19 virus infection (~10/2022) CVA (cerebral vascular accident) (~12/2021) Palliative care patient Surgical History? History of esophagogastroduodenoscopy (EGD) (07/30/18) S/P cholecystectomy S/P colonoscopy (07/30/18) S/P tonsillectomy Social History/Home Situation: Transferred from SNF for this admission.? Patient lives alone at the [address] here in [place] with a ramp to enter.? She now has a pole installed close to her bed to facilitate safe transfers and short distance walking.? Home is much more handicap-accessible with assistance from [employer]. ?She has a basement but she stresses that she does not need to go down as she has everything she needs on the main floor of the apartment.? Modified independent with all mobility ADL performance using FWW.? On chronic oxygen supplementation using 2L/min.? Hoping to get meals on wheels back. Equipment Owned/DME: FWW, 4WW Subjective: Complains of pain in B feet,? right more affected than the left. Per nursing, patient has a scheduled MRI of the R foot later this morning. Objective: General Observation:?Telemetry monitoring in place.? IV access in L UE.? Oxygen supplementation of 2 L/min via NC. Mental Status: Alert and oriented x 4 Pain: Denies headache, chest pain, and lightheadedness Vital Signs: WNL as closely monitored via tele ROM: Right Upper Extremity: ? Shoulder Flexion WFL. Shoulder abduction WFL. Elbow flexion WFL. Wrist flexion WFL. Opening and closing of hand WFL. Left Upper Extremity:? Shoulder Flexion allows only up to 90 degrees. Shoulder abduction allows only up to 80 degrees. Elbow flexion WFL. Wrist flexion WFL. Opening and closing of hand WFL. Right Lower Extremity: Hip flexion WFL. Hip abduction WFL. Knee flexion WFL. Ankle dorsiflexion limited by about 50% . Ankle plantarflexion limited by about 50%. Left Lower Extremity: Hip flexion unable to bend beyond 90 due to left hip pain. Hip abduction WFL. Knee flexion WFL. Ankle dorsiflexion limited by about 50% . Ankle plantarflexion limited by about 50%. Strength: Right Upper Extremity: Shoulder flexors 4-/5. Shoulder abductors 4-/5. Elbow flexors 4/5. Elbow extensors 4/5. Health Counselor weak but functional. Left Upper Extremity: Shoulder flexors 3-/5. Shoulder abductors 3-/5. Elbow flexors 4-/5. Elbow extensors 4-/5. Health Counselor weak but functional. Right Lower Extremity: Hip flexors 3+/5. Hip abductors 4-/5. Knee flexors 4/5. Knee extensors 4-/5. Ankle dorsiflexors 3-/5. Ankle plantarflexors 3--/5. Left Lower Extremity:Hip flexors 3-/5. Hip abductors 3-/5. Knee flexors 3/5. Knee extensors 3/5. Ankle dorsiflexors 3-/5. Ankle plantarflexors 3-/5. Sensation: Intact as to pain and pressure on bilateral lower extremities Bed Mobility/Transfers: Supine to sit standby assist Sit to stand contact guard assist Stand to sit contact guard assist Bed to chair?contact guard assist Gait: 6-8 steps using front-wheeled walker with contact guard assist.? Step-to gait pattern.? Terri decreased.? Reports pain in R foot at 7-8/10,? 6-7/10 in the L foot with weight bearing.? Refused to wear post-op shoes. Balance: Static Sitting: Normal Dynamic Sitting: Normal Static Standing: Fair Dynamic Standing: Fair Special Tests: Mobility Limitations Standardized Measure [facility] 6 clicks Basic Mobility Inpatient Short Form: Raw Score: 18? CMS Score: 47% deficit? ? ? Informed Consent/Education:? Patient was instructed in purpose of PT consult and plan of care. Agreeable to proceed with established PT POC to achieve personal goals. Assessment: Pain in R foot worsening and further decreasing level of motivation to move and walk. Post-op shoes not adequate to relieve said pain.? Patient is a 72-year-old female who presented to the ED on 01/06/2023 with persistent swelling of both feet ans ruptured blister/ulcer of right foot.? Patient is diagnosed with cellulitis of R foot,? CKD, chronic anemia,? CHF,? elevated troponin,? pulmonary infiltrates,? acute of chroninc kidney injury,? DM type II,? COPD,? and polymyalgia rheumatica. Patient presents with clinical signs and symptoms consistent with current/admitting diagnoses that have resulted to mobility limitations and gait instability as demonstrated by the following impairment level findings: 1.? Decreased strength to B LE major muscle groups (L more affected than R due to previous CVA) 2.? Impaired standing balance 3.? Impaired activity tolerance 4.? Limitation of joint range of motion in left shoulder and left hip (L more affected than R due to previous CVA) 5.? Shortness of breath 6.? Pain in the R foot from cellulitis Impairments are contributing to the following functional limitations: 1.? Inability to safely ambulate without assistive device 2.? Increase completion time for mobility ADL performance 3.? Increased fall risk Patient is assessed as a 78323 moderate complexity based on the following: History: Patient is a 72-year-old female who presented to the ED on 12/17/2022 with generalized weakness due to increasing SOB, wekaness,? and diarrhea.? Patient is diagnosed with acute on chronic heart failure with decreased ejection fraction, elevated troponin, ventricular tachycardia,? chronic kidney disease,? type 2 diabetes mellitus, COPD, polymyalgia rheumatica and? JARED. Examination: Demonstrable impairment in strength, balance, and activity tolerance with underlying impairments and functional limitations as documented above Presentation: Evolving Decision Makin moderate complexity Goals: Goals X1 week 1. Supine-Sit independent NOT MET, CONTINUE 2. Sit-Supine independent NOT MET, CONTINUE 3. Sit-Stand independent NOT MET, CONTINUE 4. Stand-Sit independent NOT MET, CONTINUE 5. Bed-Chair independent NOT MET, CONTINUE 6. Chair-Bed independent NOT MET, CONTINUE 7. Independent gait on level surface with use of least restrictive device for at least 50 feet without report of pain nor dyspnea NOT MET, CONTINUE 8. Good static and dynamic standing balance/tolerance NOT MET, CONTINUE DISCHARGE RECOMMENDATIONS: [] ? Home with no services [] [] ? Home with services [] [] ? Home with outpatient PT [] [] ? SNF for continued rehabilitation [] [] ? Detention Care [] [] ? SNF versus LTC based on ability to participate and progress [] [X] ? HH PT vs. SNF based on progress towards goals TREATMENT CODE/TIME: 89474 x 26 minutes? beginning at 10:02 AM. Thank you for the opportunity to participate in the care of this patient. Nahed Miller PT, DPT, CLT [facility] [place], [place]
--- NOTE | 2023-01-16 14:12 | CHAPLAIN ---
Sujatha was sitting up at the edge of the bed when I visited. She told me she was suppose to have an MRI today, but the MRI machine in broken. She shared some personal history, telling me about being born in [place], [place], and also living in [place] when she was younger. She used to attend the [facility], when it was a different anabaptism, and like being there very much. Sujatha said she could feel God's presence there. That anabaptism closed and she hasn't found another anabaptism that she likes. We talked about finding God in places other than anabaptism. Sujatha said she will go back to [facility] when she is discharged and that she was told she can't live alone any more. She expects a friend and her daughter to visit sometime today.
--- NOTE | 2023-01-16 17:15 | RT.EKG_ITS ---
APPROVED REPORT Exam: Resting ECG Reason for Exam: chest pain Patient Location: I HR:111 bpm ECG Measurements Heart Rate 111 AXIS WI 167 P 59 QRSd 90 QRS 51 QT 322 T 206 QTc 437 Conclusion Sinus tachycardia with irregular rate...V-rate 82-142, variation>10% Anteroseptal infarct, old...Q >40mS, V1-V2 PACs, PVCs Low voltage
[2023-01-16 18:48] LABS: Troponin I 89 ng/L (<or=60)
[2023-01-16] MEDS: Albuterol HFA 8 GM 60 PUFF INH IH (19:43)
--- NOTE | 2023-01-16 20:23 | W.PM.PROGNOT ---
Date of Service Date of service: 01/16/23 Time of Service: 18:35 Assessment and Plan Assessment and plan (1) Cellulitis of foot, right: Status: Acute Assessment and plan: Diabetic foot infection R foot. The patient did not tolerate her MRI and refuses to try again. Consider if CT w/o contrast or ultrasond would give sufficient informatoin. Continue cefepime. s/p Daptomycin/meropenem( MRSA screen negative). No OM per XR. Continue compression. As we do not have capacity to make more bumex gtt (not enough bumex in the hospital; it is on a national backorder), will switch to PO bumex 4 mg PO TID + metolazone + aldactone. I was able to find ABIs which were c/w PAD. (2) CHF (congestive heart failure): Status: Chronic Assessment and plan: Acute on CHFrEF. LVEF 40% per echo in 10/23, with evidence of a small patent foramen ovale with [id number] flow. As above, bumex is being switched to PO, continue spironolactone, add metolazone. Cr tolerated intensive diuresis, and the patient has been losing about a 1 kg per day. However, I am not sure that we will be able to diurese her to a totally euvolemic state. The patient still has evidence of pulmonary edema and B pleural effusions on her CXR today, explaining her orthopnea. Qualifiers: Heart failure type: systolic Heart failure chronicity: acute on chronic Qualified Code(s): I50.23 - Acute on chronic systolic (congestive) heart failure (3) C. difficile colitis: Status: Acute Assessment and plan: Diarrhea stopped. Continue PO vancomycin, questran, continue probiotics. (4) Acute kidney injury superimposed on chronic kidney disease: Status: Acute Assessment and plan: Cr actually better after bumex gtt w/aldactone. Continue to monitor as we are transitioning to PO bumex and starting metolazone. (5) Chronic anemia: Status: Acute Assessment and plan: Iron deficiency anemia. S/p venofer 300 mg on 01/10 and 01/11. Considering EPO. Continue to monitor - H/H stable; no active bleeding; I suspect a dilutional component as well. (6) Elevated troponin: Status: Acute Assessment and plan: Borderline elevations not c/w ACS. Would not change therapy at this time. The borderline elevated troponin today is hospital insurance representative of the same issue. I think it is not clinically significant and probably reflects mild demand ischemia from CHF. (7) Pulmonary infiltrate: Status: Acute Assessment and plan: Clinically, this is CHF. Continue diuresis, encourage pulmonary toilet. (8) Type 2 diabetes mellitus with retinopathy of both eyes, with long-term current use of insulin: Status: Chronic Assessment and plan: Pt refuses some of her insulin doses. Continue lantus at 30 units daily + moderate SSI. (9) Chronic obstructive pulmonary disease: Status: Chronic Assessment and plan: Continue albuterol prn, Bevespi aerosphere. Qualifiers: COPD type: emphysema Emphysema type: centrilobular Qualified Code(s): J43.2 - Centrilobular emphysema (10) Polymyalgia rheumatica: Status: Chronic Assessment and plan: Continue home prednisone 15 mg daily. (11) DVT prophylaxis: Status: Acute Assessment and plan: SC heparin (12) Discharge planning issues: Status: Acute Assessment and plan: DNR/DNI Contiues to require hospitalization Subjective Subjective Interval history since last seen: States that she was not able to tolerate laying down in the MRI (of the foot) due to shortness of breath/chest heaviness which are one and the same. She felt better immediately with sitting up. This happens when she lays down in the bed too. She refuses to have another MRI, no matter how I try to convince her. She does not think her legs are getting any less swollen. She reports a deep nonproductive cough. She denies dizziness, nausea, abdominal pain. No diarrhea. Formed BM today. Exam Narrative Exam Narrative: General: female, A&Ox3, sitting up in a chair, anxious HEENT: EOMI, MMM Heart: slightly irregular rate/rhythm Lungs: rales at B bases, cough Abdomen: soft, distended, midline large ventral hernia, nontender Extremities: 2+ pitting edema BLEs,not better, BLEs wrapped in tyree wraps to ankles Objective Last Vital Signs Temp 36.2 C L 01/16/23 18:04 Pulse 118 H 01/16/23 18:13 Resp 18 01/16/23 18:04 BP 132/76 01/16/23 18:04 Pulse Ox 96 01/16/23 18:04 Laboratory Results - last 24 hr 01/16/23 01/16/23 01/16/23 06:35 06:35 18:15 WBC 6.44 RBC 3.43 L Hgb 9.3 L Hct 30.8 L MCV 90 MCH 27.1 MCHC 30.2 L RDW 17.8 H Plt Count 152 MPV 11.5 H Immature Gran % 0.3 Neutrophils % 73.9 Lymphocytes % 14.3 Monocytes % 10.4 Eosinophils % 1.1 Basophils % 0.0 Nucleated RBC % 0.0 Absolute Neutrophils 4.76 Absolute Lymphocytes 0.92 L Absolute Monocytes 0.67 Absolute Eosinophils 0.07 Absolute Basophils 0.00 Sodium 138 Potassium 3.7 Chloride 100 Carbon Dioxide 32.9 H Anion Gap 5.1 BUN 73 H Creatinine 2.7 H Est GFR (CKD-EPI 2020) 18.06 Glucose 198 H Calcium 8.9 Magnesium 2.2 Troponin I 89 H* C-Reactive Protein 0.28 Objective Narrative Objective Narrative: EKG: Sinus tach/sinus arrhythmia, HR 111, unchanged from prior Time Spent with Patient Time Spent with Patient: 35-49 minutes Time was spent: preparing to see the patient(eg.review tests), obtaining and/or reviewing separately otained hiistory, ordering medications,tests, procedures, referring, communicating with other health critical care clinical nurse specialist, indepentently interpreting results, counseling the patient and care coordination
--- NOTE | 2023-01-16 20:25 | DI.VRAD_ITS ---
PROCEDURE INFORMATION: Exam: XR Chest Exam date and time: 01/16/2023 7:39 PM Age: 72 years old Clinical indication: Shortness of breath; Additional info: SOB TECHNIQUE: Imaging protocol: Radiologic exam of the chest. Views: 1 view. COMPARISON: XR PORTABLE CHEST AP 01/11/2023 10:13 AM FINDINGS: Lungs: There is significant diffuse pulmonary vascular prominence, similar to previous. No significant pulmonary consolidation. Interstitial prominence seen on the previous study has improved. Pleural spaces: There are stable moderate bilateral pleural effusions. Heart/Mediastinum: Unremarkable. No cardiomegaly. Bones/joints: Mild degenerative changes of the spine and shoulders noted. IMPRESSION: Stable pulmonary vascular congestion and moderate bilateral pleural effusions. Bilateral pulmonary infiltrates appear improved from previous suggesting resolving pulmonary edema Dictated and Authenticated by: Ray Richardson MD. Ordering:KYA Palafox MD
[2023-01-16 21:56] LABS: Troponin I 87 ng/L (<or=60)
[2023-01-16] MEDS: CEFEPIME 1 GM in Normal Saline 50 ML IVPB (22:28)
[2023-01-16] MEDS: Bumetanide 1 MG TAB 4 MG PO (22:29)
[2023-01-17] VITALS (12 sets, daily range): BP systolic 109–142; BP diastolic 61–86; PULSE 20–117; RESP 18–19; TEMP 36.1–36.7; O2SAT 94–98
[2023-01-17] MEDS: Acetaminophen 325 MG TAB PO ×2 (01:41→20:44)
--- NOTE | 2023-01-17 02:07 | NUR.NOTE ---
Pt refusing lymphedema wraps on BLE. wraps placed on pt at 2200 until 200. RN reapplied wraps looser, pt still refusing. Pt educated on importance of lymphedema wraps staying in place. central office operator made aware.
[2023-01-17] MEDS: Bumetanide 1 MG TAB 4 MG PO ×3 (06:21→20:45)
[2023-01-17 06:42] LABS: Abs Immature Grans 0.03 10^3/uL (0.0-0.06); Absolute Basophil Count 0.01 10^3/uL (0.0-0.2); Absolute Eosinophil Count 0.08 10^3/uL (0.0-0.7); Absolute Monocyte Count 0.79 10^3/uL (0.1-0.8); Absolute Neutrophil Count 5.19 10^3/uL (1.2-6.7); Basophils % 0.1; Eosinophils % 1.1; HCT 30.5 % (36.0-46.0); HGB 9.2 g/dL (11.2-15.7); Immature Grans % 0.4; Lymphocytes % 14.1; MCH 27.1 pg (27.0-33.0); MCHC 30.2 % (32.0-36.0); MCV 90 fL (80-95); MPV 11.1 fL (8.0-11.0); Monocytes % 11.1; Neutrophils % 73.2; Platelet Count 162 10^3/uL (130-400); RBC 3.39 10^6/uL (3.93-5.22); RDW-SD 59.4 fL
[2023-01-17 06:57] LABS: Anion Gap 1.8 mmol/L (3-11); BUN 76 mg/dL (7-18); CO2 35.2 mmol/L (21.0-32.0); CREATININE 2.8 mg/dL (0.55-1.02); Chloride 98 mmol/L (98-107); Estimated GFR 17.29 (mL/min/1.73m2); Glucose 170 mg/dL (74-106); Magnesium 2.1 mg/dL (1.8-2.4); Potassium 3.9 mmol/L (3.5-5.1); Sodium 135 mmol/L (136-145)
[2023-01-17 08:15] LABS: Lab Add On Test DONE
[2023-01-17 08:37] LABS: Troponin I 128 ng/L (<or=60)
--- NOTE | 2023-01-17 09:30 | RT.EKG_ITS ---
APPROVED REPORT Exam: Resting ECG Reason for Exam: elevated troponin Patient Location: I HR:114 bpm ECG Measurements Heart Rate 114 AXIS [place] 148 P 65 QRSd 105 QRS 78 QT 384 T 242 QTc 529 Conclusion Sinus tachycardia...rate> 99 Paired ventricular premature complexes...sequence of 2 V complexes Low voltage with right axis deviation...low voltage, RAD Anteroseptal infarct, old...Q >40mS, V1-V2 Prolonged QT interval...QTc >500mS
[2023-01-17] MEDS: Cilostazol 100 MG TAB PO ×2 (10:08→20:52)
--- NOTE | 2023-01-17 10:08 | PGE_ITS ---
Date of Service Date of service: 01/17/23 Time of Service: 09:45 Assessment and Plan Assessment and plan (1) Cellulitis of foot, right: Status: Acute Assessment and plan: Diabetic foot infection R foot. The patient did not tolerate her MRI and refuses to try again. will order bone scan for Thursday. Continue cefepime. s/p Daptomycin/meropenem( MRSA screen negative). No OM per XR. Continue compression. KEYONNA c/w PAD If no osteomyelitis on bone scan the consider switching to oral meds and plan for dc home mid week next week Professional time spent interviewing and examining patient, discussion of goals of care with hospital team (care management, nursing and consulting professionals) was 30 minutes. (2) CHF (congestive heart failure): Status: Chronic Assessment and plan: Acute on CHFrEF. LVEF 40% per echo in 10/23, with evidence of a small patent foramen ovale with [id number] flow. cont. po bumex, spironolactone, metolazone; will add low dose bisoprolol. Patient has been intolerant of Jardiance in the past d/t low blood sugars, also her renal fxn has not tolerated Entresto or MANSOOR-I or an ARB Qualifiers: Heart failure type: systolic Heart failure chronicity: acute on chronic Qualified Code(s): I50.23 - Acute on chronic systolic (congestive) heart failure (3) Elevated troponin: Status: Acute Assessment and plan: probably demand ischemia from her CHF however she did have chest tightness while in the MRI yesterday which may have been anxiety or may be her orthopnea. Repeat EKG today did not show any new changes. She has older anterior infarct, and nonspecific ST-T changes in her lateral V leads (altough her V6 had too much artifact to determine today); I will add the low dose bisoprolol to slow her HR and monitor her troponin until they plateau. (4) C. difficile colitis: Status: Acute Assessment and plan: Diarrhea stopped. Continue PO vancomycin, questran, continue probiotics. (5) Acute kidney injury superimposed on chronic kidney disease: Status: Acute Assessment and plan: Cr actually better after bumex gtt w/aldactone. Continue to monitor as we are transitioning to PO bumex and starting metolazone. (6) Chronic anemia: Status: Acute Assessment and plan: Iron deficiency anemia. S/p venofer 300 mg on 01/10 and 01/11. Considering EPO. Continue to monitor - H/H stable; no active bleeding; I suspect a dilutional component as well. (7) Type 2 diabetes mellitus with retinopathy of both eyes, with long-term current use of insulin: Status: Chronic Assessment and plan: Pt refuses some of her insulin doses. Continue lantus at 30 units daily + moderate SSI. (8) Pulmonary infiltrate: Status: Acute Assessment and plan: Clinically, this is CHF. Continue diuresis, encourage pulmonary toilet. (9) Chronic obstructive pulmonary disease: Status: Chronic Assessment and plan: Continue albuterol prn, Bevespi aerosphere. Qualifiers: COPD type: emphysema Emphysema type: centrilobular Qualified Code(s): J43.2 - Centrilobular emphysema (10) Polymyalgia rheumatica: Status: Chronic Assessment and plan: Continue home prednisone 15 mg daily. (11) DVT prophylaxis: Status: Acute Assessment and plan: SC heparin (12) Discharge planning issues: Status: Acute Assessment and plan: DNR/DNI Contiues to require hospitalization Subjective Subjective Interval history since last seen: Beth denies any CP, or dyspnea. BM now formed, however, patient complains that nursing is requesting that the patient wipe her own bottom. Beth is capable of doing this herself but chooses not to. Beth had CP (pressure not pain) yesteday while having he mri of her foot which she was unable to tolerate completion. MRI was done to evaluate for osetomyelitis of her right foot. Beth has had a rise in her troponin I levels. Yesterday evening her levels were 87 and 89 but this morning is up to 128. Her rhythm has been sinus arrhythmia to sinus tachycardia w/ HR 100 to 125. In the past she has been intolerant to metoprolol d/t hypotension causing her dizziness, although not a true allergy. I will try a low dose of bisoprolol for both antianginal and HR control. Exam Narrative Exam Narrative: Sujatha is sitting up at the bedside having her EKG performed. She is alert and oriented. She does not appear to be in any acute distress no accessory respiratory muscle use not tachypneic. Lungs are clear to auscultation Heart is regular but tachycardic with frequent ectopic beats Abdomen soft nondistended nontender Lower extremities with 2+ pitting edema over the pretibial surfaces of her legs just below the knees all the way down to her feet. Right foot is bandaged and Mansoor wrap I did not take the dressing down but will ask nursing to let me know if they change her dressing so I can look at her foot. There is no cyanosis. Objective Last Vital Signs Temp 36.1 C L 01/17/23 08:57 Pulse 117 H 01/17/23 08:57 Resp 18 01/17/23 08:57 BP 126/73 01/17/23 08:57 Pulse Ox 96 01/17/23 08:57 Laboratory Results - last 24 hr 01/16/23 01/16/23 01/17/23 18:15 21:23 06:20 WBC RBC Hgb Hct MCV MCH MCHC RDW Plt Count MPV Immature Gran % Neutrophils % Lymphocytes % Monocytes % Eosinophils % Basophils % Nucleated RBC % Absolute Neutrophils Absolute Lymphocytes Absolute Monocytes Absolute Eosinophils Absolute Basophils Sodium 135 L Potassium 3.9 Chloride 98 Carbon Dioxide 35.2 H Anion Gap 1.8 L BUN 76 H Creatinine 2.8 H Est GFR (CKD-EPI 2020) 17.29 Glucose 170 H Calcium 9.0 Magnesium 2.1 Troponin I 89 H* 87 H* C-Reactive Protein 0.20 Add-On Test Request 01/17/23 01/17/23 01/17/23 06:20 06:20 06:20 WBC 7.10 RBC 3.39 L Hgb 9.2 L Hct 30.5 L MCV 90 MCH 27.1 MCHC 30.2 L RDW 18.0 H Plt Count 162 MPV 11.1 H Immature Gran % 0.4 Neutrophils % 73.2 Lymphocytes % 14.1 Monocytes % 11.1 Eosinophils % 1.1 Basophils % 0.1 Nucleated RBC % 0.0 Absolute Neutrophils 5.19 Absolute Lymphocytes 1.00 L Absolute Monocytes 0.79 Absolute Eosinophils 0.08 Absolute Basophils 0.01 Sodium Potassium Chloride Carbon Dioxide Anion Gap BUN Creatinine Est GFR (CKD-EPI 2020) Glucose Calcium Magnesium Troponin I 128 H* C-Reactive Protein Add-On Test Request DONE Time Spent with Patient Time Spent with Patient: 25-34 minutes Time was spent: preparing to see the patient(eg.review tests), obtaining and/or reviewing separately otained hiistory, ordering medications,tests, procedures, referring, communicating with other health toddler caregiver, indepentently interpreting results, counseling the patient and care coordination
[2023-01-17] MEDS: Cetirizine 10 MG TAB 5 MG PO (10:09)
[2023-01-17] MEDS: Clopidogrel 75 MG TAB PO (10:09)
[2023-01-17] MEDS: Docusate Sodium 100 MG CAP PO (10:09)
[2023-01-17] MEDS: Spironolactone 25 MG TAB 50 MG PO (10:09)
[2023-01-17] MEDS: Cholecalciferol (Vitamin D3) 1,000 UNIT TAB 1000 UNITS PO (10:09)
[2023-01-17] MEDS: Sacubitril/Valsartan 24 mg/26 mg TAB 1 EACH PO ×2 (10:11→20:42)
[2023-01-17] MEDS: rOPINIRole 0.5 MG TAB 0.25 MG PO ×2 (10:11→16:03)
[2023-01-17] MEDS: predniSONE 10 MG TAB PO (10:12)
[2023-01-17] MEDS: Aspirin E.C. 81 MG TABEC PO (10:12)
[2023-01-17] MEDS: predniSONE 5 MG TAB PO (10:12)
[2023-01-17] MEDS: Vancomycin 125 MG CAP 250 MG PO ×4 (10:12→20:46)
[2023-01-17] MEDS: Insulin Aspart 300 UNITS/3 ML PEN SC ×4 (10:14→20:52)
[2023-01-17] MEDS: Insulin Glargine 300 UNITS/3 ML PEN 30 UNITS SC (10:15)
[2023-01-17 10:32] LABS: Troponin I 129 ng/L (<or=60)
--- NOTE | 2023-01-17 10:51 | PT.INNT ---
PT Notes Visit Reasons: Cellulitis Right Foot, CHF Exacerbation Pt refused PT services x 3 today.
[2023-01-17] MEDS: Bisoprolol 5 MG TAB 2.5 MG PO (11:06)
[2023-01-17] MEDS: Normal Saline Flush 10 ML SYR IVP (13:43)
[2023-01-17] MEDS: guaiFENesin 200 MG/10 ML CUP PO (14:59)
[2023-01-17] MEDS: CEFEPIME 1 GM in Normal Saline 50 ML IVPB (21:12)
[2023-01-18] VITALS (10 sets, daily range): BP systolic 82–128; BP diastolic 58–83; PULSE 84–97; RESP 17–20; TEMP 36.1–37.3; O2SAT 91–96
[2023-01-18] MEDS: Bumetanide 1 MG TAB 4 MG PO ×2 (05:53→14:38)
[2023-01-18] MEDS: rOPINIRole 0.5 MG TAB 0.25 MG PO ×2 (07:32→17:05)
[2023-01-18] MEDS: metOLazone 2.5 MG TAB PO (07:32)
[2023-01-18] MEDS: Spironolactone 25 MG TAB 50 MG PO (07:32)
[2023-01-18] MEDS: Cetirizine 10 MG TAB 5 MG PO (07:33)
[2023-01-18] MEDS: Cilostazol 100 MG TAB PO ×2 (07:33→21:09)
[2023-01-18] MEDS: Benzonatate 100 MG CAP PO ×3 (07:33→21:08)
[2023-01-18] MEDS: Famotidine 20 MG TAB PO (07:33)
[2023-01-18] MEDS: Acetaminophen 325 MG TAB PO ×2 (07:33→23:47)
[2023-01-18] MEDS: Sacubitril/Valsartan 24 mg/26 mg TAB 1 EACH PO ×2 (07:33→21:09)
[2023-01-18] MEDS: predniSONE 5 MG TAB PO (07:33)
[2023-01-18] MEDS: Aspirin E.C. 81 MG TABEC PO (07:33)
[2023-01-18] MEDS: Clopidogrel 75 MG TAB PO (07:33)
[2023-01-18] MEDS: Cholecalciferol (Vitamin D3) 1,000 UNIT TAB 1000 UNITS PO (07:34)
[2023-01-18] MEDS: predniSONE 10 MG TAB PO (07:34)
[2023-01-18] MEDS: Vancomycin 125 MG CAP 250 MG PO ×4 (07:34→21:08)
[2023-01-18] MEDS: Insulin Glargine 300 UNITS/3 ML PEN 30 UNITS SC (08:03)
[2023-01-18] MEDS: Bisoprolol 5 MG TAB 2.5 MG PO (08:03)
--- NOTE | 2023-01-18 10:42 | PT.INNT ---
PT Notes Visit Reasons: Cellulitis Right Foot, CHF Exacerbation Pt refused PT x 2 attempts today. Pt reports that she is too tired.
[2023-01-18] MEDS: Insulin Aspart 300 UNITS/3 ML PEN SC ×3 (11:54→21:09)
--- NOTE | 2023-01-18 15:50 | W.PM.PROGNOT ---
Date of Service Date of service: 01/18/23 Time of Service: 15:50 Assessment and Plan Assessment and plan (1) Cellulitis of foot, right: Status: Acute Assessment and plan: Diabetic foot infection R foot. The patient did not tolerate her MRI and refuses to try again. will order bone scan and US of her right foot for Thursday. Continue cefepime. s/p Daptomycin/meropenem( MRSA screen negative). No OM per XR. Continue compression. KEYONNA c/w PAD If no osteomyelitis on bone scan the consider switching to oral meds and plan for dc home mid week next week Professional time spent interviewing and examining patient, discussion of goals of care with hospital team (care management, nursing and consulting professionals) was 30 minutes. (2) CHF (congestive heart failure): Status: Chronic Assessment and plan: Acute on CHFrEF. LVEF 40% per echo in 10/23, with evidence of a small patent foramen ovale with [id number] flow. cont. po bumex, spironolactone, metolazone; low dose bisoprolol added. patient is tolerating her Entresto dose. I will add Jardiance to her regimen. Qualifiers: Heart failure type: systolic Heart failure chronicity: acute on chronic Qualified Code(s): I50.23 - Acute on chronic systolic (congestive) heart failure (3) Elevated troponin: Status: Acute Assessment and plan: probably demand ischemia from her CHF however she did have chest tightness while in the MRI yesterday which may have been anxiety or may be her orthopnea. Repeat EKG today did not show any new changes. She has older anterior infarct, and nonspecific ST-T changes in her lateral V leads (altough her V6 had too much artifact to determine today); I will add the low dose bisoprolol to slow her HR and monitor her troponin until they plateau. (4) C. difficile colitis: Status: Acute Assessment and plan: Diarrhea stopped. Continue PO vancomycin, questran, continue probiotics. continue for 2 weeks past end date of her antibiotics for her cellulitis (5) Acute kidney injury superimposed on chronic kidney disease: Status: Acute Assessment and plan: Cr actually better after bumex gtt w/aldactone. Continue to monitor as we are transitioning to PO bumex and starting metolazone. (6) Chronic anemia: Status: Acute Assessment and plan: Iron deficiency anemia. S/p venofer 300 mg on 01/10 and 01/11. Considering EPO. Continue to monitor - H/H stable; no active bleeding; I suspect a dilutional component as well. (7) Type 2 diabetes mellitus with retinopathy of both eyes, with long-term current use of insulin: Status: Chronic Assessment and plan: Pt refuses some of her insulin doses. Continue lantus at 30 units daily + moderate SSI. add Jardiance for CHF, may need to decrease her insulin (8) Pulmonary infiltrate: Status: Acute Assessment and plan: Clinically, this is CHF. Continue diuresis, encourage pulmonary toilet. (9) Chronic obstructive pulmonary disease: Status: Chronic Assessment and plan: Continue albuterol prn, Bevespi aerosphere. Qualifiers: COPD type: emphysema Emphysema type: centrilobular Qualified Code(s): J43.2 - Centrilobular emphysema (10) Polymyalgia rheumatica: Status: Chronic Assessment and plan: Continue home prednisone 15 mg daily. (11) DVT prophylaxis: Status: Acute Assessment and plan: SC heparin (12) Discharge planning issues: Status: Acute Assessment and plan: DNR/DNI Contiues to require hospitalization, however, she is nearing completion of her antibiotics for her cellulitis, if no abscess seen on US and negative NM bone scan then can dc her to [facility] early to mid week Subjective Subjective Interval history since last seen: Bteh has no acute complaints. She has been diuresing. Net negative 1600 mL yesterday and 3000 the day before. She is on bumex 4 mg tid along w/ spironolactone 50 mg daily, and zaroxolyn 2.5 mg qod. I will add low dose Jardiance back to her regimen. She is now on low dose bisoprolol 2.5 mg daily but has had some low BP this morning although not severe. I will decrease her to 1.25 mg daily. As for her diabetic foot infection, she remains on cefepime (since 01/15) and prior to that was on meropenem from 01/06-01/15 and daptomycin 01/07-01/08 and vancomycin 01/06. Her foot has improved w/ decreased redness. She has an eschar on the dorsum of her foot. She could not tolerate the MRI on Thursday d/t orthopnea and claustrophobia causing her to have chest pressure. She did have a slight increase in her troponin on Thursday night and Thursday morning but she has been free of any chest pain since. Her dyspnea has improved w/ diuretics. I will get a bone scan of her foot and an US of her foot, to r/o abscess and underlying osteomyelitis. If she has no abscess and no bone infection then I will continue antibiotics for total of 2 weeks from beginning i.e. through 01/20. If she has osteomyelitis then she will need 6 weeks of parenteral antibiotics. As for her C difficile diarrhea, that has improved on oral vancomycin and probiotics and questran. Stools are formed. I will continue this for 2 weeks beyon her cefepime. Exam Narrative Exam Narrative: Sujatha is sitting up at the bedside she is alert and oriented x3. Lungs: clear Heart: regular w/ occasional ectopic beats (telemetry reveals sinus to sinus tachycardia w/ PAC'S and PVC'S) Abdomen: obese, soft, nontender Legs: bilateral lower leg edema 2+ from below knees to feet; both feet are dressed, I did not take down her VINAY wraps nor her bandages over her right foot wound but did see her wound yesterday. I will examine wound tomorrow when her dressing changes are done Objective Last Vital Signs Temp 36.7 C 01/18/23 11:18 Pulse 92 H 01/18/23 11:18 Resp 18 01/18/23 11:18 BP 108/66 01/18/23 11:18 Pulse Ox 96 01/18/23 11:18 Time Spent with Patient Time Spent with Patient: 25-34 minutes Time was spent: preparing to see the patient(eg.review tests), obtaining and/or reviewing separately otained hiistory, ordering medications,tests, procedures, indepentently interpreting results, counseling the patient and care coordination
[2023-01-18] MEDS: CEFEPIME 1 GM in Normal Saline 50 ML IVPB (21:16)
[2023-01-19 03:38] VITALS: BP 104/62; PULSE 88; RESP 18; TEMP 36.4; O2SAT 90
[2023-01-19] MEDS: Bumetanide 1 MG TAB 4 MG PO (06:14)
[2023-01-19 07:08] VITALS: PULSE 97
[2023-01-19 07:58] VITALS: O2SAT 95
[2023-01-19 08:00] VITALS: BP 102/64; PULSE 66; RESP 18; TEMP 36.6; O2SAT 95
--- NOTE | 2023-01-19 08:00 | DI.US_ITS ---
Exam(s) US SOFT TISSUE EXTREMITY EXAM: US SOFT TISSUE EXTREMITY CLINICAL HISTORY: cellulitis right foot; r/o abscess. TECHNIQUE: Ultrasound was performed using standard protocol. COMPARISON: MR MR LOWER EXTREMITY RT WO from 01/16/2023 FINDINGS: Submitted images reveals what appears to be probable abscess on the dorsal aspect of the foot measuri ng approximately 1.2 x 1.0 x 1.6 cm. IMPRESSION: Probable dorsal abscess of the foot as described above. DATA REPOSITORY:
[2023-01-19] MEDS: Normal Saline Flush 10 ML SYR IVP ×2 (09:14→21:43)
[2023-01-19] MEDS: Vancomycin 125 MG CAP 250 MG PO ×4 (09:14→19:41)
[2023-01-19] MEDS: rOPINIRole 0.5 MG TAB 0.25 MG PO ×2 (09:19→16:48)
[2023-01-19] MEDS: Aspirin E.C. 81 MG TABEC PO (09:20)
[2023-01-19] MEDS: Sacubitril/Valsartan 24 mg/26 mg TAB 1 EACH PO (09:20)
[2023-01-19] MEDS: Cholecalciferol (Vitamin D3) 1,000 UNIT TAB 1000 UNITS PO (09:21)
[2023-01-19] MEDS: Cilostazol 100 MG TAB PO ×2 (09:21→19:41)
[2023-01-19] MEDS: predniSONE 10 MG TAB PO (09:22)
[2023-01-19] MEDS: predniSONE 5 MG TAB PO (09:22)
[2023-01-19] MEDS: Cetirizine 10 MG TAB 5 MG PO (09:23)
[2023-01-19] MEDS: Spironolactone 25 MG TAB 50 MG PO (09:23)
[2023-01-19] MEDS: Insulin Glargine 300 UNITS/3 ML PEN 30 UNITS SC (09:24)
[2023-01-19] MEDS: Empaglifozin 10 MG TAB PO (09:24)
[2023-01-19] MEDS: Clopidogrel 75 MG TAB PO (09:24)
[2023-01-19 10:02] LABS: Abs Immature Grans 0.02 10^3/uL (0.0-0.06); Absolute Basophil Count 0.02 10^3/uL (0.0-0.2); Absolute Eosinophil Count 0.07 10^3/uL (0.0-0.7); Absolute Lymphocyte Count 0.78 10^3/uL (1.2-3.4); Absolute Neutrophil Count 4.22 10^3/uL (1.2-6.7); Basophils % 0.3; Eosinophils % 1.2; HCT 30.1 % (36.0-46.0); HGB 9.2 g/dL (11.2-15.7); Immature Grans % 0.3; Lymphocytes % 13.4; MCH 27.3 pg (27.0-33.0); MCHC 30.6 % (32.0-36.0); MCV 89 fL (80-95); MPV 11.3 fL (8.0-11.0); Neutrophils % 72.8; Platelet Count 187 10^3/uL (130-400); RBC 3.37 10^6/uL (3.93-5.22); RDW 18.1 % (11.7-14.6); RDW-SD 59.2 fL; WBC 5.81 10^3/uL (4.4-10.8)
[2023-01-19 10:36] LABS: ALT 57 U/L (14-59); AST 39 U/L (15-37); Albumin 3.2 g/dL (3.4-5.0); Alkaline Phosphatase 64 U/L (46-116); Anion Gap 8.2 mmol/L (3-11); C-Reactive Protein 0.34 mg/dL (0.0-0.3); CO2 35.8 mmol/L (21.0-32.0); Calcium 8.4 mg/dL (8.5-10.1); Chloride 94 mmol/L (98-107); Estimated GFR 12.38 (mL/min/1.73m2); Glucose 232 mg/dL (74-106); Potassium 3.9 mmol/L (3.5-5.1); Sodium 138 mmol/L (136-145); Total Protein 6.5 g/dL (6.4-8.2)
[2023-01-19 10:42] LABS: NT-proBNP > 35000 pg/mL (<300)
[2023-01-19 10:43] LABS: BUN 90 mg/dL (7-18); CREATININE 3.7 mg/dL (0.55-1.02)
[2023-01-19] MEDS: Insulin Aspart 300 UNITS/3 ML PEN SC ×3 (11:58→21:41)
[2023-01-19 12:00] VITALS: BP 118/78; PULSE 88; RESP 17; TEMP 36.5; O2SAT 95
[2023-01-19] MEDS: guaiFENesin 200 MG/10 ML CUP PO (13:09)
--- NOTE | 2023-01-19 13:10 | PTTR_ITS ---
Date of service: 01/19/23 Time of Service: 12:55 PT Notes Visit Reasons: Cellulitis Right Foot, CHF Exacerbation Inpatient Physical Therapy Treatment Note [facility] Date: 01/19/2023 PRECAUTIONS: Activity as tolerated, fall SUBJECTIVE: Beth is eventually agreeable to participating in PT. She reports that she is feels very tired today and that she needs to lie down. OBJECTIVE:? Pain: No c/o pain ? BED MOBILITY/TRANSFERS? Supine-sit: SBA with HOB at 20 degrees Stand-sit: SBA ? GAIT: Refused? THEREX: Patient was instructed in a LE strengthening and stabilization program, completed in a side-lying position, to include: ankle pumps, glute sets, knee flexion, SL hip abduction with assist (L only), clamshells (L only). ? ASSESSMENT:? Patient was limited due to inability to lie supine or in R side- lying, and refusal to remain seated at EOB due to fatigue. She continues to demonstrate limited activity tolerance and global weakness and deconditioning. PLAN: Continue with global strengthening and general conditioning for improved mobility and activity tolerance. TREATMENT CODE/TIME: 10 minutes; [id number] (12:55)
--- NOTE | 2023-01-19 14:35 | PGE_ITS ---
Date of Service Date of service: 01/19/23 Time of Service: 14:35 Assessment and Plan Assessment and plan (1) Cellulitis of foot, right: Status: Acute Assessment and plan: Diabetic foot infection R foot. The patient did not tolerate her MRI and refuses to try again. she also refused the NM bone scan and U.S. of her right foot Continue cefepime until discharge then will put on oral cefpodoxime for another 2 weeks. s/p Daptomycin/meropenem( MRSA screen negative). No OM per XR. Continue compression. KEYONNA c/w PAD Professional time spent interviewing and examining patient, discussion of goals of care with hospital team (care management, nursing and consulting professionals) was 35 minutes. (2) CHF (congestive heart failure): Status: Chronic Assessment and plan: Acute on CHFrEF. LVEF 40% per echo in 10/23, with evidence of a small patent foramen ovale with l [id number] flow. tolerating low dose bisoprolol but now her BUN is 90 and creatinine is 3.7, I have put her diuretics and Entresto on hold Qualifiers: Heart failure type: systolic Heart failure chronicity: acute on chronic Qualified Code(s): I50.23 - Acute on chronic systolic (congestive) heart failure (3) Elevated troponin: Status: Acute Assessment and plan: likely demand ischemia. no further CP (4) C. difficile colitis: Status: Acute Assessment and plan: improved. stools now formed. will dc questran. continue probiotics and oral vancomycin. will need to remain on oral vancomycin for another month i.e. 2 weeks past her end date of her antibiotics for her cellulitis (5) Acute kidney injury superimposed on chronic kidney disease: Status: Acute Assessment and plan: acute prerenal azotemia Likely overdiuresed again. I have put her diuretics and her Entresto on hold and will give a small bolus of normal saline. will repeat her labs daily until her renal function recovers. will hold her dc until her renal fxn stabilizes. Dialysis was discussed w/ her and she does not want to consider hemodialysis. (6) Chronic anemia: Status: Acute Assessment and plan: Iron deficiency anemia. S/p venofer 300 mg on 01/10 and 01/11. Considering EPO. Continue to monitor - H/H stable; no active bleeding (7) Type 2 diabetes mellitus with retinopathy of both eyes, with long-term current use of insulin: Status: Chronic Assessment and plan: Continue lantus at 30 units daily + moderate SSI. Jardiance added for her CHF but now has been discontinued d/t her worsening renal fxn. Her lantus may also need decreased if her renal fxn does not recover (8) Chronic obstructive pulmonary disease: Status: Chronic Assessment and plan: Continue albuterol prn, Bevespi aerosphere. Qualifiers: COPD type: emphysema Emphysema type: centrilobular Qualified Code(s): J43.2 - Centrilobular emphysema (9) Polymyalgia rheumatica: Status: Chronic Assessment and plan: Continue home prednisone 15 mg daily. (10) DVT prophylaxis: Status: Acute Assessment and plan: SC heparin (11) Discharge planning issues: Status: Acute Assessment and plan: DNR/DNI plan is for dc to [facility] later this week once renal function recovers Subjective Subjective Interval history since last seen: Sujatha refused to have her nuclear bone scan performed or the ultrasound of her right foot performed. She gets claustrophobic and refused to take any lorazepam to help with her anxiety. I explained to Sujatha and her daughter that without doing the nuclear bone scan we cannot tell whether or not there is any osteomyelitis in the right foot. I think I will just empirically treat her with antibiotics as if she had an underlying osteomyelitis. She has been here nearly 2 weeks now on antibiotics. I will treat her for another 2 weeks upon discharge. Unfortunately her BUN/creatinine joovn to 90 and 3.7 today. I have had to hold her diuretics and her Entresto. I told Beth and her daughter that I am holding her dc to [facility] until her renal function recovers. I will give her a small fluid bolus as I feel that we have over diuresed her. Exam Narrative Exam Narrative: Ceballos and up at the bedside talking with her daughter she is alert and oriented person place time circumstance. She is in no acute distress able to talk in complete sentences. Lungs are clear to auscultation Heart is regular rate and rhythm, with soft systolic murmur Abdomen soft nontender nondistended Lower extremities 1+ to 2+ bilateral lower leg edema from below the knees down to the feet. She has Mansoor wraps on but they are not on properly they are sliding off her legs. Objective Last Vital Signs Temp 36.5 C 01/19/23 12:00 Pulse 88 01/19/23 12:00 Resp 17 01/19/23 12:00 BP 118/78 01/19/23 12:00 Pulse Ox 95 01/19/23 12:00 Laboratory Results - last 24 hr 01/19/23 01/19/23 09:55 09:55 WBC 5.81 RBC 3.37 L Hgb 9.2 L Hct 30.1 L MCV 89 MCH 27.3 MCHC 30.6 L RDW 18.1 H Plt Count 187 MPV 11.3 H Immature Gran % 0.3 Neutrophils % 72.8 Lymphocytes % 13.4 Monocytes % 12.0 Eosinophils % 1.2 Basophils % 0.3 Nucleated RBC % 0.0 Absolute Neutrophils 4.22 Absolute Lymphocytes 0.78 L Absolute Monocytes 0.70 Absolute Eosinophils 0.07 Absolute Basophils 0.02 Sodium 138 Potassium 3.9 Chloride 94 L Carbon Dioxide 35.8 H Anion Gap 8.2 BUN 90 H* Creatinine 3.7 H* D Est GFR (CKD-EPI 2020) 12.38 Glucose 232 H Calcium 8.4 L Total Bilirubin 1.0 AST 39 H ALT 57 Alkaline Phosphatase 64 C-Reactive Protein 0.34 H NT-Pro-B Natriuret Pep > 58641 H Total Protein 6.5 Albumin 3.2 L Time Spent with Patient Time Spent with Patient: 35-49 minutes Time was spent: preparing to see the patient(eg.review tests), obtaining and/or reviewing separately otained hiistory, ordering medications,tests, procedures, referring, communicating with other health vision care associate (Discussion of her COPD with Dr. Hugo), indepentently interpreting results, counseling the patient and care coordination
[2023-01-19] MEDS: Normal Saline 250 ML 50 ML IV (16:04)
--- NOTE | 2023-01-19 16:26 | CMPROGNOTE_ITS ---
- If Service Date Differs Date of service: 01/19/23 Time of Service: 16:26 Care Management Progress Note S/O: Beth was having wound care dressing changes done with nursing when CM attempted to visit with Beth. Per report, Beth did not tolerate her MRI, and is not agreeable to trying again. She has also refused a bone scan, which is recommended for her foot. She will return to [facility] once her renal function improves. CM will continue to follow. A:Beth is a 72 year old woman admitted on 01/06/23 with cellulitis and CHF P:Beth will be discharged back to [facility] when medically cleared by the provider. 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 She will follow up with facility providers and plan of care and transport via w/c van. CM will continue to support Beth and assess for ongoing discharge needs.
[2023-01-19] MEDS: Benzonatate 100 MG CAP PO (19:41)
[2023-01-19] MEDS: Acetaminophen 325 MG TAB PO (20:46)
[2023-01-19] MEDS: CEFEPIME 1 GM in Normal Saline 50 ML IVPB (21:42)
[2023-01-19 23:19] VITALS: BP 127/65; PULSE 100; RESP 18; TEMP 36.7; O2SAT 95
[2023-01-20 01:11] VITALS: O2SAT 94
[2023-01-20] MEDS: Acetaminophen 325 MG TAB PO ×3 (04:34→15:42)
[2023-01-20 07:43] LABS: Calcium 8.9 mg/dL (8.5-10.1); Chloride 95 mmol/L (98-107); Estimated GFR 12.38 (mL/min/1.73m2); Glucose 90 mg/dL (74-106); Potassium 3.9 mmol/L (3.5-5.1); Sodium 140 mmol/L (136-145)
[2023-01-20 07:49] LABS: BUN 96 mg/dL (7-18)
[2023-01-20 07:50] LABS: CREATININE 3.7 mg/dL (0.55-1.02)
[2023-01-20 09:00] VITALS: BP 110/68; PULSE 93; RESP 18; TEMP 36; O2SAT 97
--- NOTE | 2023-01-20 09:09 | W.PODCONSULT ---
Date of service: 01/20/23 Time of Service: 07:30 Assessment and Plan Assessment and plan (1) Diabetic nephropathy: Status: Chronic (2) Type 2 diabetes mellitus with retinopathy of both eyes, with long-term current use of insulin: Status: Chronic (3) Cellulitis of foot, right: Status: Acute (4) Right foot infection: Status: Acute Assessment and plan: The patient was evaluated at bedside. Pt was unable to tolerate MRI but Ultrasound confirms what seems to be an abscess at the dorsal foot, corresponding to the area of fluctuance / crepitus dorsally. With the longstanding cellulitis and pain in the area, recommendations were made for surgical decompression. However, with the patient's PAD (KEYONNA on 01/07 without a numerical result but with reported PAD), recommendations would be made for radha-operatively vascular consultation and management of any vascular insufficiency if warranted, at least prior to any definitive surgical intervention (closure). Being that the patient displays no leukocytosis or constitutional signs of infection, and is stable, recommendation will be made for [facility] vascular consultation prior to any surgical intervention or at least radha-operatively, even if it means a transfer(?); however, if transfer refused, surgical decompression still recommended (with risks of non healing wound). A message was left with Dr. Tobar and the hospitalist team to discuss my concerns and recommendations. Call with questions, History of Present Illness History of Present Illness Chief Complaint: R foot wound, cellulitis, possible abscess Narrative: Beth Pratt is a 72 year old female with DM, CKD, CHF, and a number of other medical comorbidities, evaluated at bedside for a R foot wound with longstanding cellulitis. She notes a dorsal R foot wound, describes onset as a blister 2-3 weeks ago, with subsequent R LE redness, swelling, and pain. She was admitted on 01/06/2023 and treated with IV Abx since then (2 weeks). When asked, she reports that the redness on the R foot and leg is much better than it was, the pain has improved, but the foot is still significantly painful to touch. She reports she was unable to tolerate and complete the MRI, but reports she was able to undergo the US. She was evaluated at bedside today. She was laying in bed with bilateral feet and legs wrapped with VINAY wraps (x2 on the R upto the level of the thigh) Consults Consult date: 01/20/23 [facility] All Active Problems Right foot infection (Acute) Discharge planning issues (Acute) DVT prophylaxis (Acute) C. difficile colitis (Acute) Cellulitis of foot, right (Acute) CKD (chronic kidney disease) (Chronic) Chronic anemia (Acute) CHF (congestive heart failure) (Chronic) Elevated troponin (Acute) Pulmonary infiltrate (Acute) Heart failure with reduced ejection fraction (Chronic) Acute kidney injury superimposed on chronic kidney disease (Acute) Chronic respiratory failure with hypoxia (Acute) CKD (chronic kidney disease) stage 4, GFR 15-29 ml/min (Acute) Non-ST elevation NC (NSTEMI) (Acute ~10/2022) Type 2 diabetes mellitus with retinopathy of both eyes, with long-term current use of insulin (Chronic) Chronic obstructive pulmonary disease (Chronic) O2 dependent on 3L NC Polymyalgia rheumatica (Chronic) Carotid atherosclerosis (Chronic) Traumatic ecchymosis of right foot (Acute) Iron deficiency anemia (Chronic) Essential hypertension (Chronic) GERD (gastroesophageal reflux disease) (Chronic) Pulmonary nodule (Chronic) Nicotine dependence, cigarettes, uncomplicated (Chronic) Annual LDCT Osteoarthritis of hips, bilateral (Chronic) Diabetic nephropathy (Chronic) Ventral hernia (Chronic) Generalized anxiety disorder (Chronic) Benign positional vertigo (Chronic) 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 Father Diabetes Daughter No problems noted. Daughter No problems noted. Daughter No problems noted. Daughter No problems noted. 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 4 daughters Exam Cardio Other: R LE with [place]oenix shiny, and with calor and erythema. No pedal hair. Pulses non palpable. CFT delayed. Thin shiny skin. Significant LE edema Skin Other: Full thickness wound dorsal R forefoot, areas of 3rd and 4th metatarsals dorsolaterally, ~3 cm in diameter. Fluctuance and crepitus noted upon palpation of the area of the wound at the dorsal foot today, with significant pain to palpation. No purulence emitted upon compression of the area, at least to which it was possible (significant pain), but with calor, erythema and edema R forefoot and distal leg Neuro Other: Unable to thorough assess today due to pain but with patient reporting a history of neuropathy (decreased sensation and paresthesias) Extrem Other: No significant musculoskeletal abnormalities noted other than significan gastroc equinus Results Last Vital Signs Temp 98.1 F 01/19/23 23:19 Pulse 100 H 01/19/23 23:19 Resp 18 01/19/23 23:19 BP 127/65 01/19/23 23:19 Pulse Ox 94 01/20/23 01:11 Labs 01/19/23 09:55 01/20/23 07:00 Labs: Laboratory Results - last 24 hr 01/19/23 01/19/23 01/20/23 09:55 09:55 07:00 WBC 5.81 RBC 3.37 L Hgb 9.2 L Hct 30.1 L MCV 89 MCH 27.3 MCHC 30.6 L RDW 18.1 H Plt Count 187 MPV 11.3 H Immature Gran % 0.3 Neutrophils % 72.8 Lymphocytes % 13.4 Monocytes % 12.0 Eosinophils % 1.2 Basophils % 0.3 Nucleated RBC % 0.0 Absolute Neutrophils 4.22 Absolute Lymphocytes 0.78 L Absolute Monocytes 0.70 Absolute Eosinophils 0.07 Absolute Basophils 0.02 Sodium 138 140 Potassium 3.9 3.9 Chloride 94 L 95 L Carbon Dioxide 35.8 H 37.0 H Anion Gap 8.2 8.0 BUN 90 H* 96 H* Creatinine 3.7 H* D 3.7 H* Est GFR (CKD-EPI 2020) 12.38 12.38 Glucose 232 H 90 Calcium 8.4 L 8.9 Total Bilirubin 1.0 AST 39 H ALT 57 Alkaline Phosphatase 64 C-Reactive Protein 0.34 H NT-Pro-B Natriuret Pep > 16240 H Total Protein 6.5 Albumin 3.2 L
[2023-01-20] MEDS: predniSONE 10 MG TAB PO (09:35)
[2023-01-20] MEDS: Bisoprolol 5 MG TAB 1.25 MG PO (09:35)
[2023-01-20] MEDS: Clopidogrel 75 MG TAB PO (09:35)
[2023-01-20] MEDS: Vancomycin 125 MG CAP 250 MG PO ×4 (09:35→20:09)
[2023-01-20] MEDS: Benzonatate 100 MG CAP PO ×3 (09:35→20:09)
[2023-01-20] MEDS: Cilostazol 100 MG TAB PO ×2 (09:35→20:09)
[2023-01-20] MEDS: predniSONE 5 MG TAB PO (09:35)
[2023-01-20] MEDS: Aspirin E.C. 81 MG TABEC PO (09:35)
[2023-01-20] MEDS: rOPINIRole 0.5 MG TAB 0.25 MG PO ×2 (09:36→17:29)
[2023-01-20] MEDS: Cholecalciferol (Vitamin D3) 1,000 UNIT TAB 1000 UNITS PO (09:36)
[2023-01-20] MEDS: Insulin Glargine 300 UNITS/3 ML PEN 30 UNITS SC (09:37)
[2023-01-20] MEDS: Cetirizine 10 MG TAB 5 MG PO (09:37)
[2023-01-20] MEDS: Famotidine 20 MG TAB PO (09:37)
[2023-01-20] MEDS: guaiFENesin 200 MG/10 ML CUP PO (09:56)
[2023-01-20] MEDS: Insulin Aspart 300 UNITS/3 ML PEN SC ×3 (12:46→21:28)
--- NOTE | 2023-01-20 14:05 | PT.INNT ---
Date of service: 01/20/23 Time of Service: 14:06 PT Notes Visit Reasons: Cellulitis Right Foot, CHF Exacerbation 01/20/2023 Beth refused to participate in PT x2 today, stating I can't do anything today. Will attempt to resume PT services tomorrow morning.
[2023-01-20 14:55] VITALS: BP 104/63; PULSE 85; RESP 18; TEMP 36.5; O2SAT 94
--- NOTE | 2023-01-20 14:57 | PDOC.CMPRO ---
- If Service Date Differs Date of service: 01/20/23 Time of Service: 14:57 Care Management Progress Note S/O: Beth was sitting up on the edge of her bed when CM met with her. She stated that she is feeling terrible today. She expressed concern about an experience she had overnight, involving a staff member. CM provided support to Beth, as she was upset about the situation. CM spoke to the CC about this incident, as well as the nursing concession supervisor. Per report, Beth's kidney function has not fully recovered, and she will remain inpatient until her creatinine is baseline. CM will continue to follow. A:Beth is a 72 year old woman admitted on 01/06/23 with cellulitis and CHF P:Beth will be discharged back to [facility] when medically cleared by the provider. She will return for short term rehab with a plan to transition to terminal superintendent care. She will follow up with facility providers and plan of care and transport via w/c van. CM will continue to support Beth and assess for ongoing discharge needs.
--- NOTE | 2023-01-20 16:16 | W.PM.PROGNOT ---
Date of Service Date of service: 01/20/23 Time of Service: 16:16 Assessment and Plan Assessment and plan (1) Cellulitis of foot, right: Status: Acute Assessment and plan: Diabetic foot infection R foot. She did not tolerate the NM bone scan but apparently they were able to complete her US which showed a pocket of fluid the measures 1.2 x 1[address] Nevarez has indicated that given the patient PAD, vascular surgery should be consulted prior to any drainage procedure. Patient refuses to go [place] [facility] Continue cefepime until discharge then will put on oral cefpodoxime for another 2 weeks. s/p Daptomycin/meropenem( MRSA screen negative). No OM per XR. Continue compression. KEYONNA c/w PAD Professional time spent interviewing and examining patient, discussion of goals of care with hospital team (care management, nursing and consulting professionals) was 20 minutes. (2) CHF (congestive heart failure): Status: Chronic Assessment and plan: Acute on CHFrEF. LVEF 40% per echo in 10/23, with evidence of a small patent foramen ovale with [id number] flow. tolerating low dose bisoprolol but now her BUN is 96 and creatinine is 3.7, I have put her diuretics and Entresto on hold Will give her 500 mL of LR overnight to correct her overdiuresis Qualifiers: Heart failure type: systolic Heart failure chronicity: acute on chronic Qualified Code(s): I50.23 - Acute on chronic systolic (congestive) heart failure (3) Elevated troponin: Status: Acute Assessment and plan: likely demand ischemia. no further CP (4) C. difficile colitis: Status: Acute Assessment and plan: improved. stools now formed. will dc questran. continue probiotics and oral vancomycin. will need to remain on oral vancomycin for another month i.e. 2 weeks past her end date of her antibiotics for her cellulitis (5) Acute kidney injury superimposed on chronic kidney disease: Status: Acute Assessment and plan: acute prerenal azotemia Likely overdiuresed again. I have put her diuretics and her Entresto on hold and will give a 500 mL of LR overnight and will repeat her labs daily until her renal function recovers. will hold her dc until her renal fxn stabilizes. Dialysis was discussed w/ her and she does not want to consider hemodialysis. (6) Chronic anemia: Status: Acute Assessment and plan: Iron deficiency anemia. S/p venofer 300 mg on 01/10 and 01/11. Considering EPO. Continue to monitor - H/H stable; no active bleeding (7) Type 2 diabetes mellitus with retinopathy of both eyes, with long-term current use of insulin: Status: Chronic Assessment and plan: Continue lantus at 30 units daily + moderate SSI. Jardiance added for her CHF but now has been discontinued d/t her worsening renal fxn. Her lantus may also need decreased if her renal fxn does not recover (8) Chronic obstructive pulmonary disease: Status: Chronic Assessment and plan: Continue albuterol prn, Bevespi aerosphere. Patient w/ moist cough, nonproductive; says it is keeping her up at night despite Tessalon perles and Robitussin DM although she has only received it once today and once yesterday. I will put her on scheduled doses of Mucinex 1200 mg bid. Also should consider addition of Daliresp to her regimen.. Qualifiers: COPD type: emphysema Emphysema type: centrilobular Qualified Code(s): J43.2 - Centrilobular emphysema (9) Polymyalgia rheumatica: Status: Chronic Assessment and plan: Continue home prednisone 15 mg daily. (10) DVT prophylaxis: Status: Acute Assessment and plan: SC heparin (11) Discharge planning issues: Status: Acute Assessment and plan: DNR/DNI plan is for dc to [facility] later this week once renal function recovers Subjective Subjective Interval history since last seen: Beth offers no new complaints. She is frustrated over not being able to be discharged. I explained to her that her renal function has not yet recovered to her baseline. BUN 96 and creatinine 3.7. I will give her another iv bolus w/ LR x 500 mL overnight and repeat her BMP in the morning. I would like to see stability in her renal fxn before dc to the SNF. Exam Narrative Exam Narrative: Beth is alert and oriented Lungs: clear although she has a moist cough Heart: regular w/ frequent ectopic beats (she is no longer on telemetry but in past she was in SR w/ PAC and PVC) Abdomen: soft, nontender Legs/feet: the edema in her lower legs has improved since she has been wearing the VINAY wraps correctly i.e. above the knee Objective Last Vital Signs Temp 36.5 C 01/20/23 14:55 Pulse 85 01/20/23 14:55 Resp 18 01/20/23 14:55 BP 104/63 01/20/23 14:55 Pulse Ox 94 01/20/23 14:55 Laboratory Results - last 24 hr 01/20/23 07:00 Sodium 140 Potassium 3.9 Chloride 95 L Carbon Dioxide 37.0 H Anion Gap 8.0 BUN 96 H* Creatinine 3.7 H* Est GFR (CKD-EPI 2020) 12.38 Glucose 90 Calcium 8.9 Time Spent with Patient Time Spent with Patient: <25 minutes Time was spent: preparing to see the patient(eg.review tests), ordering medications,tests, procedures, indepentently interpreting results, counseling the patient and care coordination
[2023-01-20] MEDS: Lactated Ringers 500 ML 75 ML IV (17:37)
[2023-01-20] MEDS: guaiFENesin 600 MG TABCR 1200 MG PO (20:10)
[2023-01-20] MEDS: Normal Saline Flush 10 ML SYR IVP (21:28)
[2023-01-20] MEDS: CEFEPIME 1 GM in Normal Saline 50 ML IVPB (21:28)
[2023-01-21] MEDS: Acetaminophen 325 MG TAB PO ×3 (00:26→15:15)
[2023-01-21 00:33] VITALS: BP 116/70; PULSE 93; RESP 16; TEMP 36.4; O2SAT 93
[2023-01-21 07:10] LABS: Anion Gap 4.3 mmol/L (3-11); CO2 37.7 mmol/L (21.0-32.0); Calcium 8.6 mg/dL (8.5-10.1); Chloride 97 mmol/L (98-107); Estimated GFR 12.38 (mL/min/1.73m2); Glucose 106 mg/dL (74-106); Potassium 3.8 mmol/L (3.5-5.1); Sodium 139 mmol/L (136-145)
[2023-01-21 07:25] LABS: BUN 99 mg/dL (7-18); CREATININE 3.7 mg/dL (0.55-1.02)
[2023-01-21 08:06] VITALS: BP 114/65; PULSE 65; RESP 16; TEMP 36.2; O2SAT 95
[2023-01-21] MEDS: Bisoprolol 5 MG TAB 1.25 MG PO (08:35)
[2023-01-21] MEDS: predniSONE 10 MG TAB PO (08:36)
[2023-01-21] MEDS: Clopidogrel 75 MG TAB PO (08:37)
[2023-01-21] MEDS: Cholecalciferol (Vitamin D3) 1,000 UNIT TAB 1000 UNITS PO (08:37)
[2023-01-21] MEDS: guaiFENesin 600 MG TABCR 1200 MG PO ×2 (08:37→20:22)
[2023-01-21] MEDS: Benzonatate 100 MG CAP PO ×3 (08:38→20:22)
[2023-01-21] MEDS: predniSONE 5 MG TAB PO (08:38)
[2023-01-21] MEDS: Aspirin E.C. 81 MG TABEC PO (08:38)
[2023-01-21] MEDS: Roflumilast 500 MCG TAB 250 MCG PO (08:39)
[2023-01-21] MEDS: rOPINIRole 0.5 MG TAB 0.25 MG PO ×2 (08:39→16:43)
[2023-01-21] MEDS: Cetirizine 10 MG TAB 5 MG PO (08:41)
[2023-01-21] MEDS: Cilostazol 100 MG TAB PO ×2 (08:41→20:22)
[2023-01-21] MEDS: Vancomycin 125 MG CAP 250 MG PO ×4 (08:42→20:22)
--- NOTE | 2023-01-21 08:47 | PDOC.CMPRO ---
- If Service Date Differs Date of service: 01/21/23 Time of Service: 08:47 Care Management Progress Note S/O: Beth was sitting up on the edge of her bed when CM met with her. She stated that her breathing is better and that the swelling in her legs is markedly decreased. Beth's kidney function remains an issue as her creatinine has remained elevated at (3.7) for the last 3 days above her baseline of 2.5-2.8. Today it was slightly less at 3.5. Beth admitted to CM that she is discouraged and is tired of having blood work and tests and imaging all of the time. She has verbalized that she will not consider dialysis and was unable or unwilling to have an MRI of her foot. Beth has also been refusing to work with PT. CM asked Beth if she wanted to meet with Palliative Care again to re-address her goals of care. In conversation, Beth stated clearly that she is not ready for comfort care and that she wants to continue to be treated for medical conditions that arise. A:Beth is a 72 year old woman admitted on 01/06/23 with cellulitis and CHF P:Beth will be discharged back to [facility] when medically cleared by the provider. She will return for short term rehab with a plan to transition to terminal gauger care. She will follow up with facility providers and plan of care and transport via w/c van. CM will continue to support Beth and assess for ongoing discharge needs.
[2023-01-21] MEDS: Insulin Glargine 300 UNITS/3 ML PEN 30 UNITS SC (08:58)
--- NOTE | 2023-01-21 10:29 | CHAPLAIN ---
Beth was resting in bed when I visited. She said she's had trouble getting sleep lately but told me that her legs are getting better. I'll visit again another time.
[2023-01-21] MEDS: Insulin Aspart 300 UNITS/3 ML PEN SC ×3 (11:17→22:57)
--- NOTE | 2023-01-21 12:51 | NUR.NOTE ---
Nursing Note: notified charge nurse of pt headache. tylenol is not available for another 2.5 hours. pt was asked if she wanted a warm pack and she refused. this rn asked pt to notify me if she needed anything or changed her mind about alternative pain mngt options
--- NOTE | 2023-01-21 13:14 | PGE_ITS ---
Date of Service Date of service: 01/21/23 Time of Service: 13:14 Assessment and Plan Assessment and plan (1) Cellulitis of foot, right: Status: Acute Assessment and plan: Diabetic foot infection R foot. She did not tolerate the NM bone scan but apparently they were able to complete her US which showed a pocket of fluid the measures 1.2 x 1[address] Nevarez has indicated that given the patient PAD, vascular surgery should be consulted prior to any drainage procedure. Patient refuses to go to [facility]. I have left a message for Dr. Pickens to call me back. I will consult ortho to give me their opinion regarding the subcutaneous fluid collection. Continue cefepime until discharge then will put on oral cefpodoxime for another 2 weeks. s/p Daptomycin/meropenem( MRSA screen negative). No OM per XR. Continue compression. KEYONNA c/w PAD Professional time spent interviewing and examining patient, discussion of goals of care with hospital team (care management, nursing and consulting professionals) was 30 minutes. (2) CHF (congestive heart failure): Status: Chronic Assessment and plan: Acute on CHFrEF. LVEF 40% per echo in 10/23, with evidence of a small patent foramen ovale with [id number]-lx-wepyc flow. tolerating low dose bisoprolol but now her BUN is 96 and creatinine is 3.7, I have put her diuretics and Entresto on hold Patient's azotemia has not improved. I will continue to hold her entresto and diuretics. continue low rate iv fluids Qualifiers: Heart failure type: systolic Heart failure chronicity: acute on chronic Qualified Code(s): I50.23 - Acute on chronic systolic (congestive) heart failure (3) Elevated troponin: Status: Acute Assessment and plan: likely demand ischemia. no further CP (4) C. difficile colitis: Status: Acute Assessment and plan: improved. stools now formed. will dc questran. continue probiotics and oral vancomycin. will need to remain on oral vancomycin for another month i.e. 2 weeks past her end date of her antibiotics for her cellulitis (5) Acute kidney injury superimposed on chronic kidney disease: Status: Acute Assessment and plan: acute prerenal azotemia Likely overdiuresed again. I have put her diuretics and her Entresto on hold and will LR at low rate 75 mL/hr overnight and will repeat her labs daily until her renal function recovers. will hold her dc until her renal fxn stabilizes. Dialysis was discussed w/ her and she does not want to consider hemodialysis. (6) Chronic anemia: Status: Acute Assessment and plan: Iron deficiency anemia. S/p venofer 300 mg on 01/10 and 01/11. Considering EPO. Continue to monitor - H/H stable; no active bleeding (7) Type 2 diabetes mellitus with retinopathy of both eyes, with long-term current use of insulin: Status: Chronic Assessment and plan: Continue lantus at 30 units daily + moderate SSI. Jardiance added for her CHF but now has been discontinued d/t her worsening renal fxn. Her lantus may also need decreased if her renal fxn does not recover (8) Chronic obstructive pulmonary disease: Status: Chronic Assessment and plan: Continue albuterol prn, Bevespi aerosphere. Patient w/ moist cough, nonproductive; says it is keeping her up at night despite Tessalon perles and Robitussin DM although she has only received it once today and once yesterday. I will put her on scheduled doses of Mucinex 1200 mg bid. Also should consider addition of Daliresp to her regimen. I have added Acapella treatments Qualifiers: COPD type: emphysema Emphysema type: centrilobular Qualified Code(s): J43.2 - Centrilobular emphysema (9) Polymyalgia rheumatica: Status: Chronic Assessment and plan: Continue home prednisone 15 mg daily. (10) DVT prophylaxis: Status: Acute Assessment and plan: SC heparin (11) Discharge planning issues: Status: Acute Assessment and plan: DNR/DNI plan is for dc to [facility] later this week once renal function recovers Subjective Subjective Interval history since last seen: Patient is frustrated, not sleeping. She is tired both from poor sleep and she is tired of being here and having to have labs done and not getting any better. I saw her w/ her nurse case management, Sandra. I explained to liu that her renal function has not yet recovered from over diuresis. Her leg edema has markedly improved both from diuretics but also she has been more compliant w/ wearing her VINAY wraps to control the lower leg edema. I told her that the U.S. of her right foot demonstrated a small pocket of fluid, possible pus. I have left a message for Dr. Pickens to call me to discuss this. I think that the fluid should be drained prior to her discharge. Dr. Pickens has written in her note that the patient should be evaluated by vascular surgery at [facility] prior to any drainage/debridement and closure procedure. I think the pocket of fluid just needs drained. It appears superficial on U.S. Liu refuses to go to [facility]. Exam Narrative Exam Narrative: Fatigued/tired appearing elderly female who is sitting up at the bedside. She is in no acute respiratory distress. She has moist cough. She says that this is somewhat better since I put her on scheduled mucinex. She has an IS but does not use it. She does not have an acapella which I will order Lungs: scattered coarse expiratory wheezes Heart: regular w/ ectopics Legs: her edema in her legs have resolved. She is wearing her VINAY wraps; toes have dependent rubor but are warm; not cold; poor capillary refill Objective Last Vital Signs Temp 36.2 C L 01/21/23 08:06 Pulse 65 01/21/23 08:06 Resp 16 01/21/23 08:06 BP 114/65 01/21/23 08:06 Pulse Ox 95 01/21/23 08:06 Laboratory Results - last 24 hr 01/21/23 06:20 Sodium 139 Potassium 3.8 Chloride 97 L Carbon Dioxide 37.7 H Anion Gap 4.3 BUN 99 H* Creatinine 3.7 H* Est GFR (CKD-EPI 2020) 12.38 Glucose 106 Calcium 8.6 Time Spent with Patient Time Spent with Patient: 25-34 minutes Time was spent: preparing to see the patient(eg.review tests), ordering medications,tests, procedures, referring, communicating with other health wound care physician (Sandra, career orientation teacher), indepentently interpreting results, counseling the patient and care coordination
[2023-01-21 15:19] VITALS: BP 100/67; PULSE 97; RESP 20; TEMP 36.2; O2SAT 97
--- NOTE | 2023-01-21 15:48 | W.PODCONSULT ---
Date of service: 01/21/23 Time of Service: 12:20 Assessment and Plan Assessment and plan (1) Diabetic nephropathy: Status: Chronic (2) Type 2 diabetes mellitus with retinopathy of both eyes, with long-term current use of insulin: Status: Chronic (3) Cellulitis of foot, right: Status: Acute (4) Right foot infection: Status: Acute Assessment and plan: Attempts were made to evaluate the patient but she refuses evaluation today. Ultrasound confirms what seems to be an abscess at the dorsal foot, corresponding to the area of fluctuance / crepitus dorsally. With the longstanding cellulitis and pain in the area, recommendations were again made for surgical decompression, but she refuses to discuss surgery today, or its risks (or risks of not undergoing surgery). With the patient's PAD (KEYONNA on 01/07 without a numerical result but with reported PAD), recommendations were previously made for radha-operatively vascular consultation and management of any vascular insufficiency if warranted, at least prior to any definitive surgical intervention (delayed closure), but she declines any transfer or vascular consultation. Nonetheless, surgical decompression still recommended (with risks of non healing wound). However, being that I will be out of town, and she is not interested in my discussing surgery with her anyway, recommend 2nd opinion / General Surgery consult (pt evaluated by General Surgery 2 weeks ago I believe). A message was left with Dr. Schulte on 01/21 to relay the above. Call with questions, History of Present Illness History of Present Illness Chief Complaint: R foot wound, cellulitis, possible abscess Narrative: Beth Pratt is a 72 year old female with DM, CKD, CHF, and a number of other medical comorbidities, evaluated at bedside very briefly for a R foot wound with longstanding cellulitis. She notes a dorsal R foot wound, describes onset as a blister 2-3 weeks ago, with subsequent R LE redness, swelling, and pain. She was admitted on 01/06/2023 and treated with IV Abx since then (2 weeks). When asked, she reports that the redness on the R foot and leg is much better than it was, the pain has improved, but the foot is still significantly painful to touch. She reported yesterday she was unable to tolerate and complete the MRI, but reports she was able to undergo the US. She was evaluated at bedside today. She was laying in bed with bilateral feet and legs wrapped with VINAY wraps (x2 on the R upto the level of the thigh). She refuses assessment of her foot today, and when asked is not interested in surgery or discussions of surgery or its risks, or of risks of doing nothing Consults Consult date: 01/20/23 [facility] All Active Problems Right foot infection (Acute) Discharge planning issues (Acute) DVT prophylaxis (Acute) C. difficile colitis (Acute) Cellulitis of foot, right (Acute) CKD (chronic kidney disease) (Chronic) Chronic anemia (Acute) CHF (congestive heart failure) (Chronic) Elevated troponin (Acute) Pulmonary infiltrate (Acute) Heart failure with reduced ejection fraction (Chronic) Acute kidney injury superimposed on chronic kidney disease (Acute) Chronic respiratory failure with hypoxia (Acute) CKD (chronic kidney disease) stage 4, GFR 15-29 ml/min (Acute) Non-ST elevation NM (NSTEMI) (Acute ~10/2022) Type 2 diabetes mellitus with retinopathy of both eyes, with long-term current use of insulin (Chronic) Chronic obstructive pulmonary disease (Chronic) O2 dependent on 3L NC Polymyalgia rheumatica (Chronic) Carotid atherosclerosis (Chronic) Traumatic ecchymosis of right foot (Acute) Iron deficiency anemia (Chronic) Essential hypertension (Chronic) GERD (gastroesophageal reflux disease) (Chronic) Pulmonary nodule (Chronic) Nicotine dependence, cigarettes, uncomplicated (Chronic) Annual LDCT Osteoarthritis of hips, bilateral (Chronic) Diabetic nephropathy (Chronic) Ventral hernia (Chronic) Generalized anxiety disorder (Chronic) Benign positional vertigo (Chronic) 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 Father Diabetes Daughter No problems noted. Daughter No problems noted. Daughter No problems noted. Daughter No problems noted. 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 4 daughters Exam Skin Other: Feet not assessed today (pt refuses) Results Last Vital Signs Temp 97.2 F L 01/21/23 15:19 Pulse 97 H 01/21/23 15:19 Resp 20 01/21/23 15:19 BP 100/67 01/21/23 15:19 Pulse Ox 97 01/21/23 15:19 Labs 01/19/23 09:55 01/21/23 06:20 Labs: Laboratory Results - last 24 hr 01/21/23 06:20 Sodium 139 Potassium 3.8 Chloride 97 L Carbon Dioxide 37.7 H Anion Gap 4.3 BUN 99 H* Creatinine 3.7 H* Est GFR (CKD-EPI 2020) 12.38 Glucose 106 Calcium 8.6
[2023-01-21] MEDS: Lactated Ringers 1,000 ML 75 ML IV (21:40)
[2023-01-21] MEDS: CEFEPIME 1 GM in Normal Saline 50 ML IVPB (21:40)
--- NOTE | 2023-01-22 | DI.RAD_ITS ---
Exam(s) XR PORTABLE CHEST AP EXAM: XR PORTABLE CHEST AP CLINICAL HISTORY: cough, dyspnea TECHNIQUE: 2D digital imaging was performed of the chest. One image was obtained. An AP view was ob tained. COMPARISON: CR,XR XR PORTABLE CHEST AP from 01/16/2023 FINDINGS: MEDIASTINUM: Normal. HEART: Mild cardiomegaly. PULMONARY VASCULATURE: There is pulmonary venous congestion. LUNGS: No focal consolidation. PLEURAL SPACE: There is a persistent small right pleural effusion. No significant left pleural effus ion is seen. BONE:Within normal limits for the patient's age. OTHER FINDINGS:Atherosclerosis. IMPRESSION: Pulmonary venous congestion and small right pleural effusion. DATA REPOSITORY: RADIATION DOSE DELIVERED:
[2023-01-22 04:45] VITALS: BP 119/59; PULSE 95; RESP 18; O2SAT 97
[2023-01-22 06:48] LABS: Bilirubin Negative (Negative); Blood Moderate (Negative); Clarity Clear (Clear); Glucose 100 mg/dL (Negative); Ketones Negative (Negative); Leukocyte Esterase Moderate (Negative); Nitrite Negative (Negative); Urobilinogen 0.2 mg/dL (Up to 0.2)
[2023-01-22 06:58] LABS: Bacteria Few HPF (Negative); C & S Indicated? Yes; Casts Negative LPF (Negative); Crystals Negative HPF (Negative); Epithelial Cells Few HPF (Negative); Mucus Negative (Negative)
[2023-01-22 07:20] VITALS: BP 120/72; PULSE 85; RESP 18; TEMP 36.3; O2SAT 98
[2023-01-22 07:45] LABS: Anion Gap 4.7 mmol/L (3-11); CO2 35.3 mmol/L (21.0-32.0); CREATININE 3.5 mg/dL (0.55-1.02); Calcium 8.6 mg/dL (8.5-10.1); Chloride 98 mmol/L (98-107); Estimated GFR 13.23 (mL/min/1.73m2); Glucose 202 mg/dL (74-106); Potassium 3.8 mmol/L (3.5-5.1); Sodium 138 mmol/L (136-145)
[2023-01-22 07:49] LABS: BUN 89 mg/dL (7-18)
--- NOTE | 2023-01-22 08:34 | PDOC.CMPRO ---
- If Service Date Differs Date of service: 01/22/23 Time of Service: 08:34 Care Management Progress Note S/O: Beth was sleeping when CM went to meet with her. She has not been sleeping well, even with the addition of Lunesta last night. Clinically, Beth continues to make slow progress. Per provider, if her creatinine reaches 3.0 or below, she may be able to return to [facility] tomorrow. She is continuing to receive gentle IV hydration to that end. A:Beth is a 72 year old woman admitted on 01/06/23 with cellulitis and CHF P:Beth will be discharged back to [facility] when medically cleared by the provider. She will return for short term rehab with a plan to transition to [facility] care. She will follow up with facility providers and plan of care and transport via w/c van. CM will continue to support Beth and assess for ongoing discharge needs.
[2023-01-22] MEDS: Clopidogrel 75 MG TAB PO (08:48)
[2023-01-22] MEDS: Cholecalciferol (Vitamin D3) 1,000 UNIT TAB 1000 UNITS PO (08:48)
[2023-01-22] MEDS: Cilostazol 100 MG TAB PO ×2 (08:49→20:00)
[2023-01-22] MEDS: Roflumilast 500 MCG TAB 250 MCG PO (08:49)
[2023-01-22] MEDS: rOPINIRole 0.5 MG TAB 0.25 MG PO ×2 (08:49→16:55)
[2023-01-22] MEDS: guaiFENesin 600 MG TABCR 1200 MG PO (08:49)
[2023-01-22] MEDS: Cetirizine 10 MG TAB 5 MG PO (08:50)
[2023-01-22] MEDS: Vancomycin 125 MG CAP 250 MG PO ×4 (08:50→19:58)
[2023-01-22] MEDS: Benzonatate 100 MG CAP PO ×3 (08:50→19:58)
[2023-01-22] MEDS: Famotidine 20 MG TAB PO (08:50)
[2023-01-22] MEDS: predniSONE 10 MG TAB PO (08:50)
[2023-01-22] MEDS: Aspirin E.C. 81 MG TABEC PO (08:50)
[2023-01-22] MEDS: predniSONE 5 MG TAB PO (08:50)
[2023-01-22] MEDS: Insulin Aspart 300 UNITS/3 ML PEN SC ×2 (08:53→16:56)
[2023-01-22] MEDS: Insulin Glargine 300 UNITS/3 ML PEN 30 UNITS SC (09:04)
[2023-01-22] MEDS: Lactated Ringers 1,000 ML 75 ML IV (13:45)
--- NOTE | 2023-01-22 14:53 | W.PM.PROGNOT ---
Date of Service Date of service: 01/22/23 Time of Service: 14:53 Assessment and Plan Assessment and plan (1) Cellulitis of foot, right: Status: Acute Assessment and plan: Diabetic foot infection R foot. She did not tolerate the NM bone scan but apparently they were able to complete her US which showed a pocket of fluid the measures 1.2 x 1.[address] Nevarez has indicated that given the patient PAD, vascular surgery should be consulted prior to any drainage procedure. Patient refuses to go to [facility]. Dr. Pickens did call me back but I missed her call yesterday as I was in ICU w/ critical situation on another patient. I read her note from today. I will ask ortho opinion regarding drainage and necessity for vascular involvement prior to drainage of subcutaneous fluid pocket. I think that aspiration and open this to drainage would be adequate. She has decent P.T. pulse in this foot and at least a doppler DP pulse. She refuses to consider [facility] vascular evaluation Continue cefepime until discharge then will put on oral cefpodoxime for another 2 weeks. s/p Daptomycin/meropenem( MRSA screen negative). No OM per XR. Continue compression. KEYONNA c/w PAD Professional time spent interviewing and examining patient, discussion of goals of care with hospital team (care management, nursing and consulting professionals) was 20 minutes. (2) CHF (congestive heart failure): Status: Chronic Assessment and plan: Acute on CHFrEF. LVEF 40% per echo in 10/23, with evidence of a small patent foramen ovale with [id number]-wb-[id number] flow. tolerating low dose bisoprolol but now her BUN is 96 and creatinine is 3.7, I have put her diuretics and Entresto on hold Patient's azotemia is improving. Continue to hold Entresto and diuretics but dc iv fluids. I expect that she will be discharged on twice daily bumex and once daily spironolactone and metolazone twice a week. Qualifiers: Heart failure type: systolic Heart failure chronicity: acute on chronic Qualified Code(s): I50.23 - Acute on chronic systolic (congestive) heart failure (3) Elevated troponin: Status: Acute Assessment and plan: likely demand ischemia. no further CP (4) C. difficile colitis: Status: Acute Assessment and plan: improved. stools now formed. will dc questran. continue probiotics and oral vancomycin. will need to remain on oral vancomycin for another month i.e. 2 weeks past her end date of her antibiotics for her cellulitis (5) Acute kidney injury superimposed on chronic kidney disease: Status: Acute Assessment and plan: acute prerenal azotemia Likely overdiuresed again. I have put her diuretics and her Entresto on hold. stop iv fluids today and repeat her labs in the morning. Plan for resumption of diuretics at the SNF but at reduced frequency. Dialysis was discussed w/ her and she does not want to consider hemodialysis. (6) Chronic anemia: Status: Acute Assessment and plan: Iron deficiency anemia. S/p venofer 300 mg on 01/10 and 01/11. Considering EPO. Continue to monitor - H/H stable; no active bleeding (7) Type 2 diabetes mellitus with retinopathy of both eyes, with long-term current use of insulin: Status: Chronic Assessment and plan: Continue lantus at 30 units daily + moderate SSI. Jardiance added for her CHF but now has been discontinued d/t her worsening renal fxn. Her lantus may also need decreased if her renal fxn does not recover (8) Chronic obstructive pulmonary disease: Status: Chronic Assessment and plan: Continue albuterol prn, Bevespi aerosphere. Patient w/ moist cough, nonproductive; says it is keeping her up at night despite Tessalon perles and Robitussin DM although she has only received it once today and once yesterday. I will put her on scheduled doses of Mucinex 1200 mg bid. Also should consider addition of Daliresp to her regimen. I have added Acapella treatments Qualifiers: COPD type: emphysema Emphysema type: centrilobular Qualified Code(s): J43.2 - Centrilobular emphysema (9) Polymyalgia rheumatica: Status: Chronic Assessment and plan: Continue home prednisone 15 mg daily. (10) DVT prophylaxis: Status: Acute Assessment and plan: SC heparin (11) Discharge planning issues: Status: Acute Assessment and plan: DNR/DNI plan is for dc to [facility] later this week once renal function recovers Subjective Subjective Interval history since last seen: Beth is complaining that she was told she can not have her albuterol MDI. She had the updrafts but does not want them. I told her that I changed her back to albuerol MDI 2 puff q4h prn dyspnea. She still has moist cough. She says that it has been productive but could not tell me what it looked like. She allegedly saved a specimen but could not produce it for me. She did not sleep well last night despite the Lunesta 1 mg. As for her renal fxn, it is improving. BUN down to 89 and creatinine is down to 3.5. I will dc her iv fluids at this point and monitor her BMP overnight. If her creatinine is down to 3.0 or lower then she is pretty much at her baseline. I think she will have to go to SNF on reduced dose of diuretic. i.e. bumex twice a day rather than 3 x per day. metolazone twice a week and spironolactone daily. With regard to her cellulitis and the collection of fluid under the skin on the dorsum of her right foot, I have asked Dr. Valle his opinion regarding drainage vs continued antibiotic treatment. With regard to her C diff colitis, BM are formed. Exam Narrative Exam Narrative: Beth is sitting up in bed. Her legs are starting to develope some edema in the lower legs, however, her daughter indicated she had been sitting up w/ her legs hanging over the bed or chair most of the morning She does not have her VINAY wraps properly on. The VINAY wrap on her right leg is half way down the calf; the MARY ANN hose on the left leg is a thigh high MARY ANN hose but was down below the knee. I did not take down her dressing on her right foot as I had just seen this yesterday and no reported change per nursing. Lungs: some scattered rhochi and expiratory wheezes Heart: RRR Abdomen: soft, nontender Objective Last Vital Signs Temp 36.3 C L 01/22/23 07:20 Pulse 85 01/22/23 07:20 Resp 18 01/22/23 07:20 BP 120/72 01/22/23 07:20 Pulse Ox 98 01/22/23 07:20 Laboratory Results - last 24 hr 01/22/23 01/22/23 06:25 06:55 Sodium 138 Potassium 3.8 Chloride 98 Carbon Dioxide 35.3 H Anion Gap 4.7 BUN 89 H* Creatinine 3.5 H Est GFR (CKD-EPI 2020) 13.23 Glucose 202 H Calcium 8.6 Urine Color Yellow Urine Clarity Clear Urine pH 7.0 Ur Specific [place] 1.020 Urine Protein 100 H Urine Ketones Negative Urine Blood Moderate H Urine Nitrite Negative Urine Bilirubin Negative Urine Urobilinogen 0.2 Ur Leukocyte Esterase Moderate H Urine RBC 3-5 H Urine WBC 3-5 Ur Epithelial Cells Few Urine Crystals Negative Urine Bacteria Few Urine Casts Negative Urine Mucus Negative Ur Culture Indicated? Yes Urine Glucose 100 H Time Spent with Patient Time Spent with Patient: <25 minutes Time was spent: preparing to see the patient(eg.review tests), ordering medications,tests, procedures, indepentently interpreting results, counseling the patient and care coordination
[2023-01-22] MEDS: Albuterol HFA 8 GM 60 PUFF INH IH ×2 (15:48→19:53)
--- NOTE | 2023-01-22 17:51 | DI.VRAD_ITS ---
PROCEDURE INFORMATION: Exam: XR Chest Exam date and time: 01/22/2023 4:58 PM Age: 72 years old Clinical indication: Cough, dyspnea TECHNIQUE: Imaging protocol: Radiologic exam of the chest. Views: 1 view. COMPARISON: CR XR PORTABLE CHEST AP 01/16/2023 7:39 PM FINDINGS: Lungs: There is prominence of the upper pulmonary vasculature, possibly venous congestion. No april pulmonary edema. No large consolidation. Pleural spaces: There is redemonstration of a small right pleural effusion. Left pleural effusion has decreased. Heart/Mediastinum: No cardiomegaly. Bones/joints: Unremarkable. IMPRESSION: Small right pleural effusion with possible vascular congestion. Correlate with clinical findings. Dictated and Authenticated by: Shaniqua Alvarado MD. Ordering:[facility] Ekaterina Causey MD
[2023-01-22 19:37] VITALS: BP 119/63; PULSE 71; RESP 18; TEMP 36.3; O2SAT 94
[2023-01-22] MEDS: Acetaminophen 325 MG TAB PO (19:59)
[2023-01-22] MEDS: CEFEPIME 1 GM in Normal Saline 50 ML IVPB (22:25)
[2023-01-22] MEDS: Normal Saline Flush 10 ML SYR IVP (22:26)
[2023-01-23] MEDS: Acetaminophen 325 MG TAB PO ×2 (01:00→12:43)
[2023-01-23 07:22] VITALS: BP 134/56; PULSE 52; RESP 18; TEMP 35.8; O2SAT 97
[2023-01-23 07:27] LABS: Anion Gap 6.9 mmol/L (3-11); CO2 33.1 mmol/L (21.0-32.0); CREATININE 3.5 mg/dL (0.55-1.02); Calcium 8.8 mg/dL (8.5-10.1); Chloride 97 mmol/L (98-107); Estimated GFR 13.23 (mL/min/1.73m2); Glucose 113 mg/dL (74-106); Potassium 3.9 mmol/L (3.5-5.1); Sodium 137 mmol/L (136-145)
[2023-01-23 07:35] LABS: BUN 90 mg/dL (7-18)
--- NOTE | 2023-01-23 07:42 | OCONE_ITS ---
Date of service: 01/23/23 Time of Service: 07:20 History of Present Illness History of Present Illness Chief Complaint: Right Foot Swelling/Abscess Narrative: Beth is a 72-year-old female with multiple medical comorbidities. She was admi tted to the hospital for fluid overload and cellulitis of the right lower extremity on January 06. She reported previous to this admission she had a blister which developed on the dorsal aspect the right foot and slowly progressed to the state where she was admitted. She has been treated with compression wraps, medications for her fluid overload, antibiotics and has noted significant improvements. There is been an area of skin thinning over the dorsum of the foot associate with some prominence and fluctuance. MRI was performed previously which was reviewed and does not show any signs of osteomyelitis. It does show significant dorsal subcutaneous edema. Ultrasound performed 2 days prior demonstrates a small area of collection with significant subcutaneous edema. This collection measured about 1-1/2 x 1 cm and about 1 cm in depth. Podiatry consult was initiated who recommended surgical debridement however, given her significant vascular disease of her lower legs with peripheral radu rial disease and her multimedical comorbidities was considered best to have vascular consultation prior. I was called in consultation as a second opinion as well since I know Beth from the orthopedic office. She feels that the swelling and pain is much better. She still has some pain with direct pressure. However, she is able to move the foot and leave dependent much more than she had in the past. She has had this wound which has been stable. She denies any significant drainage. She reports that she is itching from the inside with another infection. Her daughter has mentioned her propensity towards yeast infections with antibiotic treatment. She has known peripheral arterial disease which has been confirmed with ABIs. She has multiple medical comorbidities including chronic kidney disease which is currently acutely worsened, CHF with low ejection fraction of fluid overload, and oxygen dependency COPD. She also has significant retinopathy from diabetes. She is not a surgical candidate at [facility] has been previously by anesthesia. She expresses concern about staying in the hospital wants to be discharged soon as possible. She was unable to sleep last night. Consults Consult date: 01/22/23 Requesting physician: Padlila Tobar Consult Reason Right Dorsal Foot Abscess Assessment and Plan Assessment and plan (1) Right foot infection: Status: Acute Assessment and plan: Beth is a 72-year-old multiple medical comorbidities who has a resolving infection about the right foot. There was concern about abscess of the dorsal foot. Bedside incision and drainage today showed the most of this was coagulated blood and transudate of fluid. This would suggest that the infection is being treated appropriately. I did make a small incision at the bedside to allow this fluid to drain. I am concerned about healing potential of this area as well as the thinned area of skin. She is an unhealthy lady with notable peripheral arterial disease. Therefore, she may benefit from outpatient vascular surgical consultation for wound management and recommendations about her vascular status. I would not recommend anything more aggressive as the more wound to be place, the more unlikely to heal. I will continue to treat as needed with oral antibiotics. Initial dressings may consist of absorptive gauze and an Mansoor wrap. As the wound dries out this can be transition to regular wound care. I default to the wound care management team. Given that this was not infectious appearing today on the drainage I did not place any wick and recommend compression to help alleviate the space. No orthopedic follow-up is required. Review of Systems All systems reviewed & are unremarkable except as noted in HPI and below PFSH All Active Problems Right foot infection (Acute) Discharge planning issues (Acute) DVT prophylaxis (Acute) C. difficile colitis (Acute) Cellulitis of foot, right (Acute) CKD (chronic kidney disease) (Chronic) Chronic anemia (Acute) CHF (congestive heart failure) (Chronic) Elevated troponin (Acute) Pulmonary infiltrate (Acute) Heart failure with reduced ejection fraction (Chronic) Acute kidney injury superimposed on chronic kidney disease (Acute) Chronic respiratory failure with hypoxia (Acute) CKD (chronic kidney disease) stage 4, GFR 15-29 ml/min (Acute) Non-ST elevation MO (NSTEMI) (Acute ~10/2022) Type 2 diabetes mellitus with retinopathy of both eyes, with long-term current use of insulin (Chronic) Chronic obstructive pulmonary disease (Chronic) O2 dependent on 3L NC Polymyalgia rheumatica (Chronic) Carotid atherosclerosis (Chronic) Traumatic ecchymosis of right foot (Acute) Iron deficiency anemia (Chronic) Essential hypertension (Chronic) GERD (gastroesophageal reflux disease) (Chronic) Pulmonary nodule (Chronic) Nicotine dependence, cigarettes, uncomplicated (Chronic) Annual LDCT Osteoarthritis of hips, bilateral (Chronic) Diabetic nephropathy (Chronic) Ventral hernia (Chronic) Generalized anxiety disorder (Chronic) Benign positional vertigo (Chronic) 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 Father Diabetes Daughter No problems noted. Daughter No problems noted. Daughter No problems noted. Daughter No problems noted. Social History Smoking/Tobacco Use Status: Current-Occasional Tobacco Type: cigarettes Smoking packs per day: 2 Smoking cigarettes per day: 40.0 Years smoked: 59 Smoking pack- years: 118.00 Smoking risk assessment performed?: Yes Alcohol Intake: never Drug use: Never Substance use type: does not use 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 Pets and animals: Yes Pets and animals: cat(s) Current gender identity: female What type of physical activity do you participate in: none Irma/Amish: Latter-Day Special irma needs: No Do you feel safe at home: Yes Do you feel safe in your relationship?: Yes Additional Social history: Lives alone in apartment at [place]. 4 da ughters Exam Narrative Exam Narrative: Sitting up on the edge of the hospital bed. She is quite alert, almost more so than usual. She is oriented to person and place. She is in no acute distress. Evaluation of the right lower extremity shows minimal swelling throughout the leg. There is some notable swelling from the level of the ankle down towards the foot with an area of thinning of the skin over the dorsal lateral aspect of the foot. This measures approximately 3 cm x 2 cm. There is no drainage. The skin is quite dry. The feet have a overall rubor to them slightly worse on the right side. No appreciable palpable DP or PT pulse. Sluggish capillary refill. Pain to palpation throughout the foot mostly over the dorsum of the foot. There is an area of fluctuance over the dorsal lateral aspect of the foot. She is will demonstrate some weak toe extension and toe flexion. She endorses sensation although it does not seem to be very discriminatory about the foot. Given the findings of the ultrasound and her exam I performed a bedside incision and drainage. The point of maximal pressure over the dorsal lateral foot was identified. This area was prepped with ChloraPrep. Using a #11 blade I incised the skin about 4 to 5 mm. There is an immediate peralta of clear transudate of flu id. Direct pressure evacuated a significant amount of this fluid with chunks of coagulated blood. I was able to express some coagulated blood. There is no purulence. The foot had decompressed significantly. A nonadherent dressing followed by 4 x 4's and Mansoor wrap was then applied. Results Last Vital Signs Temp 35.8 C L 01/23/23 07:22 Pulse 52 L 01/23/23 07:22 Resp 18 01/23/23 07:22 BP 134/56 L 01/23/23 07:22 Pulse Ox 97 01/23/23 07:22 Labs 01/19/23 09:55 01/23/23 06:30 Labs: Laboratory Results - last 24 hr 01/22/23 01/23/23 06:55 06:30 Sodium 138 137 Potassium 3.8 3.9 Chloride 98 97 L Carbon Dioxide 35.3 H 33.1 H Anion Gap 4.7 6.9 BUN 89 H* 90 H* Creatinine 3.5 H 3.5 H Est GFR (CKD-EPI 2020) 13.23 13.23 Glucose 202 H 113 H Calcium 8.6 8.8 Imaging Imaging Studies: MRI of the right foot was evaluated. This shows significant dorsal soft tissue swelling about the right foot. However, there is no signs of osteomyelitis best evaluated on the T1 images. There are limited sequences to evaluate due to patient tolerance of the MRI. Ultrasound of the right foot was also reviewed. This shows significant subcutaneous edema with what appears to be a focal collection about 1-1/2 x 1 x 1 cm. There does not appear to be a clear wall fluid to suggest a loculated abscess but rather a collection within the subcutaneous edema superficial to the tendons of the foot.
[2023-01-23] MEDS: Aspirin E.C. 81 MG TABEC PO (08:03)
[2023-01-23] MEDS: rOPINIRole 0.5 MG TAB 0.25 MG PO ×2 (08:05→17:47)
[2023-01-23] MEDS: Cetirizine 10 MG TAB 5 MG PO (08:05)
[2023-01-23] MEDS: predniSONE 5 MG TAB PO (08:07)
[2023-01-23] MEDS: Roflumilast 500 MCG TAB 250 MCG PO (08:07)
[2023-01-23] MEDS: Cilostazol 100 MG TAB PO ×2 (08:08→20:56)
[2023-01-23] MEDS: Vancomycin 125 MG CAP 250 MG PO ×4 (08:08→20:56)
[2023-01-23] MEDS: guaiFENesin 600 MG TABCR 1200 MG PO ×2 (08:18→20:56)
[2023-01-23] MEDS: Benzonatate 100 MG CAP PO ×3 (08:21→20:57)
[2023-01-23] MEDS: Clopidogrel 75 MG TAB PO (08:21)
[2023-01-23] MEDS: Cholecalciferol (Vitamin D3) 1,000 UNIT TAB 1000 UNITS PO (08:21)
[2023-01-23] MEDS: Insulin Glargine 300 UNITS/3 ML PEN 30 UNITS SC (08:23)
[2023-01-23] MEDS: predniSONE 10 MG TAB PO (08:36)
[2023-01-23] MEDS: Albuterol HFA 8 GM 60 PUFF INH IH ×2 (12:12→20:05)
--- NOTE | 2023-01-23 14:43 | CMPROGNOTE_ITS ---
- If Service Date Differs Date of service: 01/23/23 Time of Service: 14:43 Care Management Progress Note S/O: Beth is clinically improving, although she continues to not feel well due to her chronic illness. She was medically cleared today to return to [facility], although they were unable to accommodate an admission today. She will remain over the weekend, and will likely transfer back to [facility] on Thursday. CM will continue to follow. A:Beth is a 72 year old woman admitted on 01/06/23 with cellulitis and CHF P:Beth will be discharged back to [facility] when medically cleared by the provider. She will return for short term rehab with a plan to transition to senior living care. She will follow up with facility providers and plan of care and transport via w/c van. CM will continue to support Beth and assess for ongoing discharge needs.
[2023-01-23 15:21] VITALS: BP 117/43; PULSE 73; RESP 15; TEMP 36; O2SAT 93
--- NOTE | 2023-01-23 15:42 | PGE_ITS ---
Date of Service Date of service: 01/23/23 Time of Service: 15:42 Assessment and Plan Assessment and plan (1) Cellulitis of foot, right: Status: Acute Assessment and plan: Diabetic foot infection R foot. She did not tolerate the NM bone scan but apparently they were able to complete her US which showed a pocket of fluid the measures 1.2 x 1[address] Pickens has indicated that given the patient PAD, vascular surgery should be consulted prior to any drainage procedure. Patient refuses to go to [facility]. Dr Valle did perform a stab I&D and returned some clotted dark blood and clear fluid. Continue cefepime until discharge then will put on oral cefpodoxime for another 2 weeks. s/p Daptomycin/meropenem( MRSA screen negative). No OM per XR. Continue compression. KEYONNA c/w PAD . (2) CHF (congestive heart failure): Status: Chronic Assessment and plan: Acute on CHFrEF. LVEF 40% per echo in 10/23, with evidence of a small patent foramen ovale with [id number] flow. tolerating low dose bisoprolol but now her BUN is 96 and creatinine is 3.7. Her diuretics and Entresto were placed on hold but will restart metolazone 2.5mg [id number] and spironolactone 50mg daily. Start bumex daily. Patient's azotemia is improving. Continue to hold Entresto. I expect that she will be discharged on twice daily bumex and once daily spironolactone and metolazone twice a week. Qualifiers: Heart failure type: systolic Heart failure chronicity: acute on chronic Qualified Code(s): I50.23 - Acute on chronic systolic (congestive) heart failure (3) Elevated troponin: Status: Acute Assessment and plan: likely demand ischemia. no further CP (4) C. difficile colitis: Status: Acute Assessment and plan: improved. stools now formed. continue probiotics and oral vancomycin. will need to remain on oral vancomycin for another month i.e. 2 weeks past her end date of her antibiotics for her cellulitis (5) Acute kidney injury superimposed on chronic kidney disease: Status: Acute Assessment and plan: acute prerenal azotemia Likely overdiuresed again. Her diuretics and her Entresto have been held briefly. Will restart in AM. Dialysis was discussed w/ her and she does not want to consider hemodialysis. (6) Chronic anemia: Status: Acute Assessment and plan: Iron deficiency anemia. S/p venofer 300 mg on 01/10 and 01/11. Considering EPO. Continue to monitor - H/H stable; no active bleeding (7) Type 2 diabetes mellitus with retinopathy of both eyes, with long-term current use of insulin: Status: Chronic Assessment and plan: Continue lantus at 30 units daily + moderate SSI. Jardiance added for her CHF but now has been discontinued d/t her worsening renal fxn. Her lantus may also need decreased if her renal fxn does not recover (8) Chronic obstructive pulmonary disease: Status: Chronic Assessment and plan: Continue albuterol prn, Bevespi aerosphere. Patient w/ moist cough, nonproductive; says it is keeping her up at night despite Tessalon perles and Robitussin DM although she has only received it once today and once yesterday. I will put her on scheduled doses of Mucinex 1200 mg bid. Also should consider addition of Daliresp to her regimen. Cont. Acapella treatments Qualifiers: COPD type: emphysema Emphysema type: centrilobular Qualified Code(s): J43.2 - Centrilobular emphysema (9) Polymyalgia rheumatica: Status: Chronic Assessment and plan: Continue home prednisone 15 mg daily. (10) DVT prophylaxis: Status: Acute Assessment and plan: SC heparin (11) Discharge planning issues: Status: Acute Assessment and plan: DNR/DNI plan is for dc to [facility] today but they are not accepting patients until Thursday. Subjective Subjective Patient reports: no new complaints and afebrile; denies nausea or vomiting Exam Narrative Exam Narrative: Beth is transferring from commode to bed. NAD Lungs: some scattered rhochi and expiratory wheezes. Speaks in complete sentences. Heart: RRR Abdomen: soft, nontender Exts. Compression wraps currently off; she is s/p stab incision and drainage of the blister on the dorsum of the right foot. Much improved edema since admission of her BLEs. Objective Last Vital Signs Temp 36.0 C L 01/23/23 15:21 Pulse 73 01/23/23 15:21 Resp 15 01/23/23 15:21 BP 117/43 L 01/23/23 15:21 Pulse Ox 93 01/23/23 15:21 Laboratory Results - last 24 hr 01/23/23 06:30 Sodium 137 Potassium 3.9 Chloride 97 L Carbon Dioxide 33.1 H Anion Gap 6.9 BUN 90 H* Creatinine 3.5 H Est GFR (CKD-EPI 2020) 13.23 Glucose 113 H Calcium 8.8 Time Spent with Patient Time Spent with Patient: 25-34 minutes Time was spent: preparing to see the patient(eg.review tests), obtaining and/or reviewing separately otained hiistory, ordering medications,tests, procedures and indepentently interpreting results
--- NOTE | 2023-01-23 15:58 | CHAPLAIN ---
Beth was sitting up at the edge of her bed when I visited. She was teary, telling me that she was told she won't be going back to [facility] until tomorrow and this was upsetting to her. She was told [facility] couldn't take her back today because of some kind of inspection. She said she's had difficulty breathing here and staff have not been responsive to her problems. Her lunch was on her table and she hadn't eaten any of it because she said she was having trouble breathing and couldn't eat. Beth also told me that Dr. Valle was in her room this morning and did surgery on her foot. She likes Dr. Valle and trusts him, she said. When I asked what she was looking forward to getting back to at [facility], Beth didn't name anything specifically. She doesn't sleep well there either she said. She does know a few people there, but not many. She continued by telling me she feels like she's going to in this place, if she doesn't get back to [facility] soon, but couldn't tell me specifically why she felt like that.
[2023-01-23 23:39] VITALS: BP 74/56; PULSE 88; RESP 16; TEMP 36.6; O2SAT 99
[2023-01-23 23:56] VITALS: BP 107/54
[2023-01-24 06:59] LABS: Magnesium 2.8 mg/dL (1.8-2.4)
[2023-01-24 07:02] LABS: Anion Gap 7.6 mmol/L (3-11); CO2 34.4 mmol/L (21.0-32.0); CREATININE 3.2 mg/dL (0.55-1.02); Calcium 9.2 mg/dL (8.5-10.1); Chloride 100 mmol/L (98-107); Estimated GFR 14.73 (mL/min/1.73m2); Glucose 67 mg/dL (74-106); Potassium 3.9 mmol/L (3.5-5.1); Sodium 142 mmol/L (136-145)
[2023-01-24 07:06] LABS: BUN 88 mg/dL (7-18)
[2023-01-24] MEDS: Glucose Oral Gel 15 GM/37.5 GM TUBE PO (07:37)
[2023-01-24 08:00] VITALS: PULSE 113; RESP 16; TEMP 37.1; O2SAT 93
[2023-01-24] MEDS: Albuterol HFA 8 GM 60 PUFF INH IH ×2 (08:09→19:29)
[2023-01-24] MEDS: Bisoprolol 5 MG TAB 1.25 MG PO (08:43)
[2023-01-24] MEDS: Clopidogrel 75 MG TAB PO (08:45)
[2023-01-24] MEDS: Spironolactone 50 MG TAB PO (08:45)
[2023-01-24] MEDS: guaiFENesin 600 MG TABCR 1200 MG PO ×2 (08:45→20:29)
[2023-01-24] MEDS: predniSONE 5 MG TAB PO (08:45)
[2023-01-24] MEDS: Aspirin E.C. 81 MG TABEC PO (08:45)
[2023-01-24] MEDS: Famotidine 20 MG TAB PO (08:45)
[2023-01-24] MEDS: Bumetanide 1 MG TAB 4 MG PO (08:45)
[2023-01-24] MEDS: Benzonatate 100 MG CAP PO ×3 (08:46→20:29)
[2023-01-24] MEDS: metOLazone 2.5 MG TAB PO (08:46)
[2023-01-24] MEDS: Vancomycin 125 MG CAP 250 MG PO ×4 (08:46→20:29)
[2023-01-24] MEDS: Cilostazol 100 MG TAB PO ×2 (08:46→20:29)
[2023-01-24] MEDS: Roflumilast 500 MCG TAB 250 MCG PO (08:46)
[2023-01-24] MEDS: predniSONE 10 MG TAB PO (08:46)
[2023-01-24] MEDS: Cholecalciferol (Vitamin D3) 1,000 UNIT TAB 1000 UNITS PO (08:46)
[2023-01-24] MEDS: Cetirizine 10 MG TAB 5 MG PO (08:47)
[2023-01-24] MEDS: rOPINIRole 0.5 MG TAB 0.25 MG PO ×2 (08:47→16:18)
[2023-01-24] MEDS: Acetaminophen 325 MG TAB PO (09:11)
[2023-01-24 16:06] VITALS: BP 118/73; PULSE 94; RESP 16; TEMP 35.8; O2SAT 94
[2023-01-24] MEDS: LORazepam 0.5 MG TAB PO (16:17)
[2023-01-24] MEDS: Insulin Aspart 300 UNITS/3 ML PEN SC (17:13)
[2023-01-24 23:28] VITALS: BP 124/63; PULSE 96; RESP 19; TEMP 36.5; O2SAT 97
[2023-01-25] MEDS: LORazepam 0.5 MG TAB PO ×2 (02:52→17:06)
[2023-01-25 02:55] VITALS: BP 119/68; PULSE 97; RESP 20; TEMP 36.6; O2SAT 97
[2023-01-25 06:19] VITALS: BP 122/75; PULSE 99; RESP 21; TEMP 36.1; O2SAT 96
--- NOTE | 2023-01-25 06:54 | PGE_ITS ---
Date of Service Date of service: 01/24/23 Time of Service: 14:30 Assessment and Plan Assessment and plan (1) Cellulitis of foot, right: Status: Acute Assessment and plan: Diabetic foot infection R foot. She did not tolerate the NM bone scan but apparently they were able to complete her US which showed a pocket of fluid the measures 1.2 x 1.[address] Pickens has indicated that given the patient PAD, vascular surgery should be consulted prior to any drainage procedure. Patient refuses to go to [facility]. Dr Valle did perform a stab I&D and returned some clotted dark blood and clear fluid. Stop cefepime today and initiate cefpodoxime in preperation for d/c; s/p Daptomycin/meropenem( MRSA screen negative). No OM per XR. Continue compression. KEYONNA c/w PAD . (2) CHF (congestive heart failure): Status: Chronic Assessment and plan: Acute on CHFrEF. LVEF 40% per echo in 10/23, with evidence of a small patent foramen ovale with [id number] flow. tolerating low dose bisoprolol but now her BUN is 96 and creatinine is 3.7. Her diuretics and Entresto were placed on hold but will restart metolazone 2.5mg [id number] and spironolactone 50mg daily. Start bumex daily. Patient's azotemia is improving. Continue to hold Entresto. I expect that she will be discharged on twice daily bumex and once daily spironolactone and metolazone twice a week. Qualifiers: Heart failure type: systolic Heart failure chronicity: acute on chronic Qualified Code(s): I50.23 - Acute on chronic systolic (congestive) heart fail ure (3) Elevated troponin: Status: Acute Assessment and plan: likely demand ischemia. no further CP (4) C. difficile colitis: Status: Acute Assessment and plan: Improved. stools now formed. continue probiotics and oral vancomycin. will need to remain on oral vancomycin for another month i.e. 2 weeks past her end date of her antibiotics for her cellulitis (5) Acute kidney injury superimposed on chronic kidney disease: Status: Acute Assessment and plan: acute prerenal azotemia Likely overdiuresed again. Her diuretics and her Entresto have been held briefly. Will restart in AM. Dialysis was discussed w/ her and she does not want to consider hemodialysis. (6) Chronic anemia: Status: Acute Assessment and plan: Iron deficiency anemia. S/p venofer 300 mg on 01/10 and 01/11. Considering EPO. Continue to monitor - H/H stable; no active bleeding (7) Type 2 diabetes mellitus with retinopathy of both eyes, with long-term current use of insulin: Status: Chronic Assessment and plan: Continue lantus at 30 units daily + moderate SSI. Jardiance added for her CHF but now has been discontinued d/t her worsening renal fxn. Her lantus may also need decreased if her renal fxn does not recover (8) Chronic obstructive pulmonary disease: Status: Chronic Assessment and plan: Continue albuterol prn, Bevespi aerosphere. Patient w/ moist cough, nonproductive; says it is keeping her up at night despite Tessalon perles and Robitussin DM although she has only received it once today and once yesterday. I will put her on scheduled doses of Mucinex 1200 mg bid. Also should consider addition of Daliresp to her regimen. Cont. Acapella treatments Qualifiers: COPD type: emphysema Emphysema type: centrilobular Qualified Code(s): J43.2 - Centrilobular emphysema (9) Polymyalgia rheumatica: Status: Chronic Assessment and plan: Continue home prednisone 15 mg daily. (10) DVT prophylaxis: Status: Acute Assessment and plan: SC heparin (11) Discharge planning issues: Status: Acute Assessment and plan: DNR/DNI plan is for dc to [facility] today but they are not accepting patients until Thursday. Subjective Subjective Patient reports: no new complaints, nausea (Refuses IV antiemetics; given ODT Zofran) and afebrile; denies vomiting Exam Narrative Exam Narrative: Gen: Frail appearing. Lungs: some scattered rhochi and expiratory wheezes. Speaks in complete sentences. Heart: RRR Abdomen: soft, nontender Exts. BLE bandages and wraps in place. Objective Last Vital Signs Temp 36.1 C L 01/25/23 06:19 Pulse 99 H 01/25/23 06:19 Resp 21 01/25/23 06:19 BP 122/75 01/25/23 06:19 Pulse Ox 96 01/25/23 06:19 Laboratory Results - last 24 hr 01/24/23 01/24/23 05:50 05:50 Sodium 142 Potassium 3.9 Chloride 100 Carbon Dioxide 34.4 H Anion Gap 7.6 BUN 88 H* Creatinine 3.2 H Est GFR (CKD-EPI 2020) 14.73 Glucose 67 L Calcium 9.2 Magnesium 2.8 H Time Spent with Patient Time Spent with Patient: <25 minutes Time was spent: preparing to see the patient(eg.review tests) and indepentently interpreting results
[2023-01-25] MEDS: Bisoprolol 5 MG TAB 1.25 MG PO (08:35)
[2023-01-25] MEDS: Docusate Sodium 100 MG CAP PO (08:36)
[2023-01-25] MEDS: Spironolactone 50 MG TAB PO (08:36)
[2023-01-25] MEDS: Cholecalciferol (Vitamin D3) 1,000 UNIT TAB 1000 UNITS PO (08:36)
[2023-01-25] MEDS: Clopidogrel 75 MG TAB PO (08:36)
[2023-01-25] MEDS: Cilostazol 100 MG TAB PO ×2 (08:37→20:40)
[2023-01-25] MEDS: Cetirizine 10 MG TAB 5 MG PO (08:37)
[2023-01-25] MEDS: Vancomycin 125 MG CAP 250 MG PO ×4 (08:38→20:40)
[2023-01-25] MEDS: rOPINIRole 0.5 MG TAB 0.25 MG PO ×2 (08:38→16:23)
[2023-01-25] MEDS: Cefpodoxime 200 MG TAB PO ×2 (08:39→20:40)
[2023-01-25] MEDS: Roflumilast 500 MCG TAB 250 MCG PO (08:40)
[2023-01-25] MEDS: guaiFENesin 600 MG TABCR 1200 MG PO ×2 (08:40→20:40)
[2023-01-25] MEDS: Aspirin E.C. 81 MG TABEC PO (08:41)
[2023-01-25] MEDS: predniSONE 5 MG TAB PO (08:41)
[2023-01-25] MEDS: Bumetanide 1 MG TAB 4 MG PO (08:42)
[2023-01-25] MEDS: Benzonatate 100 MG CAP PO ×3 (08:42→20:40)
[2023-01-25] MEDS: Acetaminophen 325 MG TAB PO ×2 (08:43→16:23)
[2023-01-25] MEDS: predniSONE 10 MG TAB PO (08:43)
[2023-01-25] MEDS: Insulin Aspart 300 UNITS/3 ML PEN SC ×3 (08:48→23:28)
[2023-01-25] MEDS: Insulin Glargine 300 UNITS/3 ML PEN 30 UNITS SC (08:54)
[2023-01-25] MEDS: Albuterol HFA 8 GM 60 PUFF INH IH ×2 (09:20→19:43)
--- NOTE | 2023-01-25 15:26 | W.PM.PROGNOT ---
Date of Service Date of service: 01/25/23 Time of Service: 15:26 Assessment and Plan Assessment and plan (1) Cellulitis of foot, right: Status: Acute Assessment and plan: Diabetic foot infection R foot. She did not tolerate the NM bone scan but apparently they were able to complete her US which showed a pocket of fluid the measures 1.2 x 1[address] Pickens has indicated that given the patient PAD, vascular surgery should be consulted prior to any drainage procedure. Patient refuses to go to [facility]. Dr Valle did perform a stab I&D and returned some clotted dark blood and clear fluid. Cont. cefpodoxime in preperation for d/c; s/p Daptomycin/meropenem( MRSA screen negative). No OM per XR. Continue compression. KEYONNA c/w PAD . (2) CHF (congestive heart failure): Status: Chronic Assessment and plan: Acute on CHFrEF. LVEF 40% per echo in 10/23, with evidence of a small patent foramen ovale with [id number]-ez-[id number] flow. tolerating low dose bisoprolol but now her BUN is 96 and creatinine is 3.7. Her diuretics and Entresto were placed on hold but will restart metolazone 2.5mg [id number] and spironolactone 50mg daily. Start bumex daily. Patient's azotemia is improving. Continue to hold Entresto. I expect that she will be discharged on twice daily bumex and once daily spironolactone and metolazone twice a week. Qualifiers: Heart failure type: systolic Heart failure chronicity: acute on chronic Qualified Code(s): I50.23 - Acute on chronic systolic (congestive) heart failure (3) Elevated troponin: Status: Acute Assessment and plan: likely demand ischemia. No further CP (4) C. difficile colitis: Status: Acute Assessment and plan: Improved. stools now formed. continue probiotics and oral vancomycin. will need to remain on oral vancomycin for another month i.e. 2 weeks past her end date of her antibiotics for her cellulitis (5) Acute kidney injury superimposed on chronic kidney disease: Status: Acute Assessment and plan: acute prerenal azotemia Likely overdiuresed again. Her diuretics and her Entresto have been held briefly, then restarted. Dialysis was discussed w/ her and she does not want to consider hemodialysis. (6) Chronic anemia: Status: Acute Assessment and plan: Iron deficiency anemia. S/p venofer 300 mg on 01/10 and 01/11. Considering EPO. Continue to monitor - H/H stable; no active bleeding (7) Type 2 diabetes mellitus with retinopathy of both eyes, with long-term current use of insulin: Status: Chronic Assessment and plan: Continue lantus daily + moderate SSI. Adjust as needed. Jardiance added for her CHF but now has been discontinued d/t her worsening renal fxn. (8) Chronic obstructive pulmonary disease: Status: Chronic Assessment and plan: Continue albuterol prn, Bevespi aerosphere. Patient w/ moist cough, nonproductive; says it is keeping her up at night despite Tessalon perles and Robitussin DM although she has only received it once today and once yesterday. I will put her on scheduled doses of Mucinex 1200 mg bid. Also should consider addition of Daliresp to her regimen. Cont. Acapella treatments Qualifiers: COPD type: emphysema Emphysema type: centrilobular Qualified Code(s): J43.2 - Centrilobular emphysema (9) Polymyalgia rheumatica: Status: Chronic Assessment and plan: Continue home prednisone 15 mg daily. (10) DVT prophylaxis: Status: Acute Assessment and plan: SC heparin (11) Discharge planning issues: Status: Acute Assessment and plan: DNR/DNI plan is for dc to [facility] today but they are not accepting patients until Thursday. Subjective Subjective Patient reports: afebrile; denies nausea or vomiting Interval history since last seen: Pt is frustrated still regarding delay in transfer to SNF Exam Narrative Exam Narrative: Gen: Frail appearing. Cooperative and interactive. Lungs: some scattered rhochi and expiratory wheezes. Speaks in complete sentences. Heart: RRR Abdomen: soft, nontender Exts. BLE bandages and wraps in place. Psych: blunted affect. Objective Last Vital Signs Temp 36.1 C L 01/25/23 06:19 Pulse 99 H 01/25/23 06:19 Resp 21 01/25/23 06:19 BP 122/75 01/25/23 06:19 Pulse Ox 96 01/25/23 06:19 Time Spent with Patient Time Spent with Patient: 25-34 minutes Time was spent: preparing to see the patient(eg.review tests), ordering medications,tests, procedures, referring, communicating with other health healthcare business analyst and indepentently interpreting results
[2023-01-25 16:58] VITALS: BP 119/72; PULSE 89; RESP 18; TEMP 35.9; O2SAT 100
[2023-01-26 01:50] VITALS: BP 108/64; PULSE 100; RESP 20; TEMP 36.4; O2SAT 96
[2023-01-26] MEDS: Albuterol HFA 8 GM 60 PUFF INH IH ×2 (02:53→08:17)
[2023-01-26] MEDS: LORazepam 0.5 MG TAB PO ×3 (06:21→22:13)
[2023-01-26] MEDS: Famotidine 20 MG TAB PO (06:21)
[2023-01-26] MEDS: Cilostazol 100 MG TAB PO ×2 (06:21→20:41)
[2023-01-26] MEDS: Acetaminophen 325 MG TAB PO ×3 (06:39→23:03)
[2023-01-26 07:30] VITALS: BP 135/60; PULSE 96; RESP 18; TEMP 36.4; O2SAT 97
[2023-01-26] MEDS: Cefpodoxime 200 MG TAB PO (08:01)
[2023-01-26] MEDS: Cholecalciferol (Vitamin D3) 1,000 UNIT TAB 1000 UNITS PO (08:01)
[2023-01-26] MEDS: guaiFENesin 600 MG TABCR 1200 MG PO ×2 (08:01→20:41)
[2023-01-26] MEDS: predniSONE 10 MG TAB PO (08:02)
[2023-01-26] MEDS: Bumetanide 1 MG TAB 4 MG PO (08:02)
[2023-01-26] MEDS: Clopidogrel 75 MG TAB PO (08:02)
[2023-01-26] MEDS: Vancomycin 125 MG CAP 250 MG PO ×4 (08:02→20:41)
[2023-01-26] MEDS: Benzonatate 100 MG CAP PO ×3 (08:02→20:41)
[2023-01-26] MEDS: Aspirin E.C. 81 MG TABEC PO (08:02)
[2023-01-26] MEDS: predniSONE 5 MG TAB PO (08:02)
[2023-01-26] MEDS: Spironolactone 50 MG TAB PO (08:02)
[2023-01-26] MEDS: Docusate Sodium 100 MG CAP PO (08:02)
[2023-01-26] MEDS: Cetirizine 10 MG TAB 5 MG PO (08:03)
[2023-01-26] MEDS: Roflumilast 500 MCG TAB 250 MCG PO (08:03)
[2023-01-26] MEDS: rOPINIRole 0.5 MG TAB 0.25 MG PO ×2 (08:04→16:59)
[2023-01-26] MEDS: Bisoprolol 5 MG TAB 1.25 MG PO (08:04)
[2023-01-26] MEDS: Insulin Aspart 300 UNITS/3 ML PEN SC ×4 (08:14→22:13)
[2023-01-26] MEDS: Insulin Glargine 300 UNITS/3 ML PEN 25 UNITS SC (08:15)
[2023-01-26 16:05] VITALS: BP 113/74; PULSE 94; RESP 18; TEMP 36.2; O2SAT 99
--- NOTE | 2023-01-26 16:28 | CMPROGNOTE_ITS ---
- If Service Date Differs Date of service: 01/26/23 Time of Service: 16:28 Care Management Progress Note S/O: Beth was sitting up in her bed when CM met with her. CM communicated with [facility], where she was placed prior to this discharge, who stated that they cannot accommodate her return, as her MCR bed hold , and they are closed to admissions. CM discussed this with Beth, who agreed to CM sending referrals to the [facility], which CM sent. CM will continue to follow. A:Beth is a 72 year old woman admitted on 01/06/23 with cellulitis and CHF P:Beth will be discharged to SNF when medically cleared by the provider. 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 She will follow up with facility providers and plan of care and transport via w/c van. CM will continue to support Beth and assess for ongoing discharge needs.
--- NOTE | 2023-01-26 18:08 | PGE_ITS ---
Date of Service Date of service: 01/26/23 Time of Service: 18:08 Assessment and Plan Assessment and plan (1) Cellulitis of foot, right: Status: Acute Assessment and plan: Diabetic foot infection R foot. She did not tolerate the NM bone scan but apparently they were able to complete her US which showed a pocket of fluid the measures 1.2 x 1.[address] Pickens has indicated that given the patient PAD, vascular surgery should be consulted prior to any drainage procedure. Patient refuses to go to [facility] Valle did perform a stab I&D and returned some clotted dark blood and clear fluid. Cont. cefpodoxime in preperation for d/c; s/p Daptomycin/meropenem( MRSA screen negative). No OM per XR. Continue compression. KEYONNA c/w PAD . (2) CHF (congestive heart failure): Status: Chronic Assessment and plan: Acute on CHFrEF. LVEF 40% per echo in 10/23, with evidence of a small patent foramen ovale with eykn-ov-ecfsk flow. tolerating low dose bisoprolol but now her BUN is 96 and creatinine is 3.7. Her diuretics and Entresto were placed on hold but will restart metolazone 2.5mg [id number] and spironolactone 50mg daily. Start bumex daily. Patient's azotemia is improving. Continue to hold Entresto. I expect that she will be discharged on twice daily bumex and once daily spironolactone and metolazone twice a week. Qualifiers: Heart failure chronicity: acute on chronic Heart failure type: systolic Qualified Code(s): I50.23 - Acute on chronic systolic (congestive) heart failure (3) Elevated troponin: Status: Acute Assessment and plan: likely demand ischemia. No further CP (4) C. difficile colitis: Status: Acute Assessment and plan: Improved. stools now formed. continue probiotics and oral vancomycin. will need to remain on oral vancomycin for another month i.e. 2 weeks past her end date of her antibiotics for her cellulitis (5) Acute kidney injury superimposed on chronic kidney disease: Status: Acute Assessment and plan: acute prerenal azotemia Likely overdiuresed again. Her diuretics and her Entresto have been held briefly, then restarted. Creatinine now 3.2. Dialysis was discussed w/ her and she does not want to consider hemodialysis. (6) Chronic anemia: Status: Acute Assessment and plan: Iron deficiency anemia. S/p venofer 300 mg on 01/10 and 01/11. Continue to monitor - H/H stable; no active bleeding (7) Type 2 diabetes mellitus with retinopathy of both eyes, with long-term current use of insulin: Status: Chronic Assessment and plan: Continue lantus daily + moderate SSI. Adjust as needed. Jardiance added for her CHF but now has been discontinued d/t her worsening renal fxn. (8) Chronic obstructive pulmonary disease: Status: Chronic Assessment and plan: Continue albuterol prn, Bevespi aerosphere. Patient w/ moist cough, nonproductive; says it is keeping her up at night despite Tessalon perles and Robitussin DM although she has only received it once today and once yesterday. I will put her on scheduled doses of Mucinex 1200 mg bid. Also should consider addition of Daliresp to her regimen. Cont. Acapella treatments Qualifiers: COPD type: emphysema Emphysema type: centrilobular Qualified Code(s): J43.2 - Centrilobular emphysema (9) Polymyalgia rheumatica: Status: Chronic Assessment and plan: Continue home prednisone 15 mg daily. (10) DVT prophylaxis: Status: Acute Assessment and plan: SC heparin (11) Discharge planning issues: Status: Acute Assessment and plan: DNR/DNI She was in rehab at [facility] prior to admission. Her bed hold and they are not accepting her back as a new pt; they are not admitting any new pts at this time. Care Management looking for other alternative SNF. Subjective Subjective Patient reports: no new complaints and afebrile; denies nausea, vomiting or shortness of breath Interval history since last seen: Continues to be upset about ongoing hospital stay. Exam Narrative Exam Narrative: Gen: Frail appearing. Cooperative and interactive. Lungs: some scattered rhochi and expiratory wheezes. Speaks in complete sentences. Heart: RRR Abdomen: soft, nontender Exts. BLE bandages and wraps in place. Psych: sad affect. Objective Last Vital Signs Temp 36.2 C L 01/26/23 16:05 Pulse 94 H 01/26/23 16:05 Resp 18 03/27/23 16:05 BP 113/74 01/26/23 16:05 Pulse Ox 99 01/26/23 16:05 Time Spent with Patient Time Spent with Patient: <25 minutes Time was spent: preparing to see the patient(eg.review tests), ordering medications,tests, procedures, referring, communicating with other health manager medicare and indepentently interpreting results
[2023-01-26] MEDS: Melatonin 3 MG TAB PO (22:13)
[2023-01-27] MEDS: Albuterol HFA 8 GM 60 PUFF INH IH ×4 (02:03→19:25)
[2023-01-27 03:51] VITALS: BP 101/60; PULSE 61; RESP 18; TEMP 36.5; O2SAT 94
[2023-01-27] MEDS: Acetaminophen 325 MG TAB PO ×4 (04:00→19:55)
[2023-01-27 07:46] VITALS: BP 117/59; PULSE 98; RESP 18; TEMP 36; O2SAT 99
[2023-01-27] MEDS: metOLazone 2.5 MG TAB PO (08:04)
[2023-01-27] MEDS: Roflumilast 500 MCG TAB 250 MCG PO (08:04)
[2023-01-27] MEDS: Cholecalciferol (Vitamin D3) 1,000 UNIT TAB 1000 UNITS PO (08:05)
[2023-01-27] MEDS: Benzonatate 100 MG CAP PO ×3 (08:05→19:56)
[2023-01-27] MEDS: Cetirizine 10 MG TAB 5 MG PO (08:05)
[2023-01-27] MEDS: rOPINIRole 0.5 MG TAB 0.25 MG PO ×2 (08:05→17:10)
[2023-01-27] MEDS: Cefpodoxime 200 MG TAB PO (08:06)
[2023-01-27] MEDS: Bisoprolol 5 MG TAB 1.25 MG PO (08:06)
[2023-01-27] MEDS: Cilostazol 100 MG TAB PO ×2 (08:07→19:56)
[2023-01-27] MEDS: guaiFENesin 600 MG TABCR 1200 MG PO ×2 (08:07→19:56)
[2023-01-27] MEDS: predniSONE 10 MG TAB PO (08:07)
[2023-01-27] MEDS: Vancomycin 125 MG CAP 250 MG PO ×4 (08:07→19:56)
[2023-01-27] MEDS: Bumetanide 1 MG TAB 4 MG PO (08:07)
[2023-01-27] MEDS: predniSONE 5 MG TAB PO (08:08)
[2023-01-27] MEDS: Clopidogrel 75 MG TAB PO (08:08)
[2023-01-27] MEDS: Spironolactone 50 MG TAB PO (08:08)
[2023-01-27] MEDS: Aspirin E.C. 81 MG TABEC PO (08:08)
[2023-01-27] MEDS: Insulin Aspart 300 UNITS/3 ML PEN SC ×4 (08:13→21:36)
[2023-01-27] MEDS: Insulin Glargine 300 UNITS/3 ML PEN 25 UNITS SC (08:14)
--- NOTE | 2023-01-27 09:01 | CMPROGNOTE_ITS ---
- If Service Date Differs Date of service: 01/27/23 Time of Service: 09:01 Care Management Progress Note S/O: Beth was sitting up in bed when CM met with her. She is pleasant and engages in conversation. She understands that [facility] cannot accommodate her return, as her MCR bed hold , and they are closed to admissions. Yesterday, CM sent referrals to the [facility] and [facility] with Beth's permission. CM spoke with Bladimir from the [facility] today and unfortunately they have declined the referral since Beth left their facility AMA in the past. CM left a message for [facility] and is awaiting a return call. CM will follow. A:Beth is a 72 year old woman admitted on 01/06/23 with cellulitis and CHF P:Beth will be discharged to SNF when medically cleared by the provider. She will return for short term rehab with a plan to transition to intermediate care. She will follow up with facility providers and plan of care and transport via w/c van. CM will continue to support Beth and assess for ongoing discharge needs.
--- NOTE | 2023-01-27 10:39 | CHAPLAIN ---
Beth was visiting with her friend Livia when I stopped in. She has been waiting to return to [facility] and on 01/23 she told me she would be transferred by there on 01/24 but today she tells me that that they gave my bed away and I can't go back there. According to Care Management notes, they are applying to other facilities for Beth. Beth said she is tired, as she usually is. She said she was given anti-depression medication and she wonders if that makes her more tired. Livia told her she likely wouldn't know the effects of the anti-depression for a couple of weeks, but a side effect could be grogginess. I will continue to visit.
[2023-01-27] MEDS: LORazepam 0.5 MG TAB PO ×2 (13:27→19:56)
--- NOTE | 2023-01-27 14:24 | PT.INDS ---
Date of service: 01/20/23 PT Notes Visit Reasons: Cellulitis Right Foot, CHF Exacerbation Physical Therapy Inpatient Discharge Summary Date: 01/20/2023 Dates of service: 01/08/2023 through 01/20/2023 This is a clinical summary of care provided for the duration of dates listed above. No charge was made in the completion of this documentation. Referring Doctor:? Padilla Tobar MD PT Orders: PT CONSULT: Extendedn stay weakness. Exacerbation Chronic Cond.? Limited ability. Precautions: Activity as tolerated.? On 2 L of oxygen via NC. Patient Profile/Admitting Diagnosis:? Patient is a 72-year-old female who presented to the ED on 01/06/2023 with persistent swelling of both feet ans ruptured blister/ulcer of right foot.? Patient is diagnosed with cellulitis of R foot,? CKD, chronic anemia,? CHF,? elevated troponin,? pulmonary infiltrates,? acute of chroninc kidney injury,? DM type II,? COPD,? and polymyalgia rheumatica. PMHX: All Active Problems? Cellulitis of foot, right (Acute) CKD (chronic kidney disease) (Chronic) Chronic anemia (Acute) CHF (congestive heart failure) (Chronic) Elevated troponin (Acute) Pulmonary infiltrate (Acute) Heart failure with reduced ejection fraction (Chronic) Acute kidney injury superimposed on chronic kidney disease (Acute) Chronic respiratory failure with hypoxia (Acute) CKD (chronic kidney disease) stage 4, GFR 15-29 ml/min (Acute) Non-ST elevation NE (NSTEMI) (Acute ~10/2022) Type 2 diabetes mellitus with retinopathy of both eyes, with long-term current use of insulin (Chronic) Chronic obstructive pulmonary disease (Chronic) O2 dependent on 3L NC Polymyalgia rheumatica (Chronic) Carotid atherosclerosis (Chronic) Traumatic ecchymosis of right foot (Acute) Iron deficiency anemia (Chronic) Essential hypertension (Chronic) GERD (gastroesophageal reflux disease) (Chronic) Pulmonary nodule (Chronic) Nicotine dependence, cigarettes, uncomplicated (Chronic) Annual LDCTOsteoarthritis of hips, bilateral (Chronic) Diabetic nephropathy (Chronic) Ventral hernia (Chronic) Generalized anxiety disorder (Chronic) Benign positional vertigo (Chronic) 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 COVID-19 virus infection (~10/2022) CVA (cerebral vascular accident) (~12/2021) Palliative care patient Surgical History? History of esophagogastroduodenoscopy (EGD) (07/30/18) S/P cholecystectomy S/P colonoscopy (07/30/18) S/P tonsillectomy Social History/Home Situation: Transferred from SNF for this admission.? Patient lives alone at the [address] here in [place] with a ramp to enter.? She now has a pole installed close to her bed to facilitate safe transfers and short distance walking.? Home is much more handicap-accessible with assistance from [facility]. ? She has a basement but she stresses that she does not need to go down as she has everything she needs on the main floor of the apartment.? Modified independent with all mobility ADL performance using FWW.? On chronic oxygen supplementation using 2L/min.? Hoping to get meals on wheels back. Equipment Owned/DME: F[employer], [employer] Subjective: NT. See most recent EXECUTIVE TALENT ACQUISITION CONSULTANT notes. Objective: General Observation:?NT. See most recent EXECUTIVE TALENT ACQUISITION CONSULTANT notes. Mental Status: NT. See most recent EXECUTIVE TALENT ACQUISITION CONSULTANT notes. Pain: NT. See most recent EXECUTIVE TALENT ACQUISITION CONSULTANT notes. Vital Signs: NT. See most recent EXECUTIVE TALENT ACQUISITION CONSULTANT notes. ROM: Right Upper Extremity: ? Shoulder Flexion WFL. Shoulder abduction WFL. Elbow flexion WFL. Wrist flexion WFL. Opening and closing of hand WFL. Left Upper Extremity:? Shoulder Flexion allows only up to 90 degrees. Shoulder abduction allows only up to 80 degrees. Elbow flexion WFL. Wrist flexion WFL. Opening and closing of hand WFL. Right Lower Extremity: Hip flexion WFL. Hip abduction WFL. Knee flexion WFL. Ankle dorsiflexion to neutral only. Ankle plantarflexion WFL. Left Lower Extremity: Hip flexion unable to bend beyond 90 due to left hip pain. Hip abduction WFL. Knee flexion WFL. Ankle dorsiflexion to neutral only. Ankle plantarflexion WFL. Strength: Right Upper Extremity: Shoulder flexors 4-/5. Shoulder abductors 4-/5. Elbow flexors 4/5. Elbow extensors 4/5. Supervisor Real Estate Office weak but functional. Left Upper Extremity: Shoulder flexors 3-/5. Shoulder abductors 3-/5. Elbow flexors 4-/5. Elbow extensors 4-/5. Supervisor [employer] weak but functional. Right Lower Extremity: Hip flexors 3+/5. Hip abductors 4-/5. Knee flexors 4/5. Knee extensors 4-/5. Ankle dorsiflexors 3-/5. Ankle plantarflexors 4-/5. Left Lower Extremity:Hip flexors 3-/5. Hip abductors 3-/5. Knee flexors 3/5. Knee extensors 3/5. Ankle dorsiflexors 3-/5. Ankle plantarflexors 4/5. Sensation: Intact as to pain and pressure on bilateral lower extremities Bed Mobility/Transfers: Supine to sit standby assist Sit to stand contact guard assist Stand to sit contact guard assist Bed to chair?contact guard assist Gait: UP to 5-6 steps using front-wheeled walker with contact guard assist.? Step-to gait pattern.? Terri decreased.? Reports pain in R foot up to 8/10 and up to 6/10 in the L foot with weight bearing.? Post-op shoes on B feet for added support, pain relief, and protection Balance: Static Sitting: Normal Dynamic Sitting: Normal Static Standing: Fair Dynamic Standing: Fair Special Tests: Mobility Limitations Standardized Measure [facility] 6 clicks Basic Mobility Inpatient Short Form: Raw Score: 18? CMS Score: 47% deficit? ? ? Assessment: Patient does not want any physical therapy services at this time until the pain, swelling, and infection in her B feet and legs are resolved. She has not particated in PT for the past 3 sessions and has mentioned to EXECUTIVE TALENT ACQUISITION CONSULTANT that she does not want continue with services at this time. Patient is diagnosed with cellulitis of R foot,? CKD, chronic anemia,? CHF,? elevated troponin,? pulmonary infiltrates,? acute of chroninc kidney injury,? DM type II,? COPD,? and polymyalgia rheumatica. Patient presents with clinical signs and symptoms consistent with current/admitting diagnoses that have resulted to mobility limitations and gait instability as demonstrated by the following impairment level findings: 1.? Decreased strength to B LE major muscle groups (L more affected than R due to previous CVA) 2.? Impaired standing balance 3.? Impaired activity tolerance 4.? Limitation of joint range of motion in left shoulder and left hip (L more affected than R due to previous CVA) 5.? Shortness of breath 6.? Pain in the R foot from cellulitis Impairments are contributing to the following functional limitations: 1.? Inability to safely ambulate without assistive device 2.? Increase completion time for mobility ADL performance 3.? Increased fall risk Goals: Goals X1 week 1. Supine-Sit independent NOT MET 2. Sit-Supine independent NOT MET 3. Sit-Stand independent NOT MET 4. Stand-Sit independent NOT MET 5. Bed-Chair independent NOT MET 6. Chair-Bed independent NOT MET 7. Independent gait on level surface with use of least restrictive device for at least 50 feet without report of pain nor dyspnea NOT MET 8. Good static and dynamic standing balance/tolerance NOT MET DISCHARGE RECOMMENDATIONS: [] ? Home with no services [] [] ? Home with services [] [] ? Home with outpatient PT [] [] ? SNF for continued rehabilitation [] [] ? Intermediate Care [] [] ? SNF versus LTC based on ability to participate and progress [] [X] ? PT vs. SNF based on progress towards goals TREATMENT CODE/TIME: NC Thank you for the opportunity to participate in the care of this patient. Nahed Miller PT, DPT, CLT [facility] [place], [place]
[2023-01-27 15:22] VITALS: BP 108/60; PULSE 114; RESP 18; TEMP 36.4; O2SAT 98
[2023-01-27 15:42] VITALS: PULSE 88
[2023-01-27 23:00] VITALS: BP 109/74; PULSE 95; RESP 18; TEMP 36.3; O2SAT 98
[2023-01-28] MEDS: Acetaminophen 325 MG TAB PO ×4 (00:07→21:41)
[2023-01-28] MEDS: Albuterol HFA 8 GM 60 PUFF INH IH ×3 (00:08→09:32)
[2023-01-28] MEDS: LORazepam 0.5 MG TAB PO (04:33)
[2023-01-28 06:20] LABS: HCT 27.6 % (36.0-46.0); MCH 27.1 pg (27.0-33.0); MCHC 31.2 % (32.0-36.0); MCV 87 fL (80-95); MPV 11.1 fL (8.0-11.0); Platelet Count 223 10^3/uL (130-400); RBC 3.17 10^6/uL (3.93-5.22); RDW 17.1 % (11.7-14.6); RDW-SD 54.4 fL; WBC 8.86 10^3/uL (4.4-10.8)
[2023-01-28 06:35] LABS: Calcium 8.9 mg/dL (8.5-10.1); Chloride 94 mmol/L (98-107); Estimated GFR 11.27 (mL/min/1.73m2); Glucose 216 mg/dL (74-106); Potassium 3.5 mmol/L (3.5-5.1); Sodium 136 mmol/L (136-145)
[2023-01-28 06:38] LABS: HGB 8.6 g/dL (11.2-15.7)
[2023-01-28 06:43] LABS: BUN 94 mg/dL (7-18)
[2023-01-28] MEDS: Ondansetron O.D.T. 4 MG TABEF PO (07:14)
[2023-01-28 07:20] VITALS: BP 128/63; PULSE 110; RESP 18; TEMP 36.3; O2SAT 97
[2023-01-28] MEDS: predniSONE 5 MG TAB PO (08:14)
[2023-01-28] MEDS: predniSONE 10 MG TAB PO (08:14)
[2023-01-28] MEDS: Bisoprolol 5 MG TAB 1.25 MG PO (08:14)
[2023-01-28] MEDS: Bumetanide 1 MG TAB 4 MG PO (08:14)
[2023-01-28] MEDS: Aspirin E.C. 81 MG TABEC PO (08:15)
[2023-01-28] MEDS: Cefpodoxime 200 MG TAB PO (08:15)
[2023-01-28] MEDS: Cilostazol 100 MG TAB PO ×2 (08:15→19:41)
[2023-01-28] MEDS: Cholecalciferol (Vitamin D3) 1,000 UNIT TAB 1000 UNITS PO (08:16)
[2023-01-28] MEDS: Benzonatate 100 MG CAP PO ×3 (08:16→19:41)
[2023-01-28] MEDS: Clopidogrel 75 MG TAB PO (08:16)
[2023-01-28] MEDS: Famotidine 20 MG TAB PO (08:16)
[2023-01-28] MEDS: guaiFENesin 600 MG TABCR 1200 MG PO ×2 (08:16→19:41)
[2023-01-28] MEDS: Spironolactone 50 MG TAB PO (08:16)
[2023-01-28] MEDS: Vancomycin 125 MG CAP 250 MG PO ×4 (08:16→19:41)
[2023-01-28] MEDS: rOPINIRole 0.5 MG TAB 0.25 MG PO ×2 (08:17→17:16)
[2023-01-28] MEDS: Roflumilast 500 MCG TAB 250 MCG PO (08:18)
[2023-01-28] MEDS: Cetirizine 10 MG TAB 5 MG PO (08:18)
[2023-01-28] MEDS: Insulin Aspart 300 UNITS/3 ML PEN SC ×3 (08:19→17:15)
[2023-01-28] MEDS: Insulin Glargine 300 UNITS/3 ML PEN 35 UNITS SC (08:22)
--- NOTE | 2023-01-28 10:11 | PDOC.CMPRO ---
- If Service Date Differs Date of service: 01/28/23 Time of Service: 10:11 Care Management Progress Note S/O: Beth was sitting up on the side of the bed when CM met with her. She appeared sad and was teary during the conversation. She informed CM that she is discouraged and worried about where she will go. She [facility], expecting to return there. Unfortunate her Medicare bed hold ran out. [facility] is unable to accept new admissions at this time and cannot predict when that will change. Referrals have been sent to [facility] and [facility] in [place], [place]. [facility] notified CM that they cannot make a bed offer as she left their facility AMA in July. CM contacted [facility] and requested that they reconsider Beth for admission. She is in a very different place right now and promises that she will not leave AMA and will be compliant with her care. Per staff at [facility], Beth refused to work with PT and was unwilling to follow other care that was ordered. Additionally there were many complaints made by Beth's family that indicated they were unhappy with the facility. [facility] has already stated they are unable to offer a bed, but he will be approached again at 's request. CM asked Beth what other facilities she would consider and she stated none. She was adamant about wanting to be near her family, fearing that they would not come to see her if she was too far away. ABUNDIO also called her daughter Lida to request additional facilities to send referrals to. Lida requested that referrals be sent to any facilities within a reasonable distance. A:Beth is a 72 year old woman admitted on 01/06/23 with cellulitis and CHF P:Beth will be discharged to SNF when medically cleared by the provider. 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 She will follow up with facility providers and plan of care and transport via w/c van. CM will continue to support Beth and assess for ongoing discharge needs. cc
[2023-01-28 14:13] VITALS: BP 100/65; PULSE 98; RESP 18; TEMP 36.7; O2SAT 99
[2023-01-28 17:16] LABS: Glucose 562 mg/dL (74-106)
--- NOTE | 2023-01-28 17:16 | NUR.NOTE ---
Nursing Note:Critical lab reported by Eron Hilton to Debi GLOVER of a serum glucose 562, CC notified
[2023-01-28] MEDS: Melatonin 3 MG TAB PO (21:41)
[2023-01-28 23:59] VITALS: BP 100/70; PULSE 96; RESP 18; TEMP 36.6; O2SAT 98
[2023-01-29] MEDS: LORazepam 0.5 MG TAB PO ×3 (00:09→22:26)
[2023-01-29] MEDS: Acetaminophen 325 MG TAB PO ×3 (04:53→21:24)
[2023-01-29 07:19] VITALS: BP 105/54; PULSE 88; RESP 18; TEMP 36; O2SAT 98
[2023-01-29] MEDS: Aspirin E.C. 81 MG TABEC PO (07:43)
[2023-01-29] MEDS: Bisoprolol 5 MG TAB 1.25 MG PO (07:43)
[2023-01-29] MEDS: predniSONE 5 MG TAB PO (07:43)
[2023-01-29] MEDS: Vancomycin 125 MG CAP 250 MG PO ×4 (07:43→20:05)
[2023-01-29] MEDS: guaiFENesin 600 MG TABCR 1200 MG PO ×2 (07:44→20:06)
[2023-01-29] MEDS: Clopidogrel 75 MG TAB PO (07:44)
[2023-01-29] MEDS: Cholecalciferol (Vitamin D3) 1,000 UNIT TAB 1000 UNITS PO (07:44)
[2023-01-29] MEDS: Cefpodoxime 200 MG TAB PO (07:44)
[2023-01-29] MEDS: Spironolactone 50 MG TAB PO (07:44)
[2023-01-29] MEDS: Benzonatate 100 MG CAP PO ×2 (07:44→20:05)
[2023-01-29] MEDS: predniSONE 10 MG TAB PO (07:44)
[2023-01-29] MEDS: rOPINIRole 0.5 MG TAB 0.25 MG PO ×2 (07:45→16:18)
[2023-01-29] MEDS: Cilostazol 100 MG TAB PO ×2 (07:45→20:05)
[2023-01-29] MEDS: Roflumilast 500 MCG TAB 250 MCG PO (07:45)
[2023-01-29] MEDS: Cetirizine 10 MG TAB 5 MG PO (07:46)
[2023-01-29] MEDS: Insulin Glargine 300 UNITS/3 ML PEN 35 UNITS SC (07:47)
[2023-01-29 07:52] LABS: Anion Gap 7.1 mmol/L (3-11); CO2 36.9 mmol/L (21.0-32.0); Calcium 9.4 mg/dL (8.5-10.1); Chloride 92 mmol/L (98-107); Estimated GFR 11.27 (mL/min/1.73m2); Glucose 111 mg/dL (74-106); Potassium 3.8 mmol/L (3.5-5.1); Sodium 136 mmol/L (136-145)
[2023-01-29 07:56] LABS: BUN 100 mg/dL (7-18)
[2023-01-29] MEDS: Albuterol HFA 8 GM 60 PUFF INH IH (08:17)
--- NOTE | 2023-01-29 09:53 | PDOC.CMPRO ---
- If Service Date Differs Date of service: 01/29/23 Time of Service: 09:53 Care Management Progress Note S/O: Beth was sitting up on the side of the bed when CM met with her. She had just woken up from a nap and was still sleepy. CM placed a follow up phone call to the [facility] today to determined if they had been willing to reconsider Beth for admission. Fortunately, the response was favorable and they have agreed to take her back with the understanding that the staff must be treated respectfully by both Beth and her family. This information was shared with Beth who was overjoyed and tearful. The transfer will not take place until Thursday as they need to rearrange some beds to accommodate Beth and her needs. ABUNDIO also called [facility] to inform her of the bed offer, and she too verbalized that she was pleased. A:Beth is a 72 year old woman admitted on 01/06/23 with cellulitis and CHF P:Beth will likely be discharged to [facility] on Thursday. CM received a call this afternoon that they have reconsidered and will offer Beth a bed. She will transfer for short term rehab with a plan to transition to [facility] care. Beth will follow up with facility providers and plan of care and transport via w/c van. CM will continue to support Beth and assess for ongoing discharge needs.
[2023-01-29] MEDS: Ondansetron O.D.T. 4 MG TABEF PO ×2 (09:54→16:46)
--- NOTE | 2023-01-29 10:39 | PGE_ITS ---
Date of Service Date of service: 01/29/23 Time of Service: 10:40 Assessment and Plan Assessment and plan (1) Cellulitis of foot, right: Status: Acute Assessment and plan: patient intolerant of MRI and NM bone scan. US demonstrated small pocket of fluid over dorsum of foot which was incised and drained by Dr. Valle on 01/23 which demonstrated coagulated blood and no pus. Due to her PAD, and lack of purulent drainage; no further surgical debridement was recommended. Patient has been adequately treated for cellulitis w/ antbiotics since admission on 01/06. She was initially treated w/ dose of vancomycin and put on ancef but was quickly changed to cefepime and daptomycin. She was only on daptomycin for couple days but remained on cefepime from 01/06 throught 01/15 and has been on cefpodoxime since 01/15 to present. I will check follow up inflammatory markers including CBC, CRP and procalcitonin. She now has had 23 days of antibiotics which is more than adequate for cellulitis; however if she has osteomyelitis of the foot then she would need at least 6 weeks and probably lifetime suppressive treatment. She has had complications of C difficile colitis from being on antibiotics. She remains on oral vancomycin while she is on the cefpodoxime. Professional time spent interviewing and examining patient, discussion of goals of care with hospital team (care management, nursing and consulting professionals) was 30 minutes. (2) CKD (chronic kidney disease) stage 4, GFR 15-29 ml/min: Status: Acute Assessment and plan: Her renal failure is approaching stage 5, however she does not want hemodialysis. We have been going back and forth on her volume status. B umex/spironolactone/zaroxolyn combination has worked well in controlling her edema (along w/ VINAY wraps and MARY ANN hose). Howver she appears to be dry now (dry mucous membranes, no edemal; clear lungs); Her bumex was stopped and her fluid restriction was lifted but she is still getting spironolactone and zaroxolyn. I will hold these for couple days and allow her volume to equilibrate (3) Heart failure with reduced ejection fraction: Status: Chronic Assessment and plan: clinically she is euvolemic or slightly dry at this point. I am hold her diuretics and d/t her worsening CKD her Entresto has been on hold. I will dc the Entresto. Monitor daily BMP; I/O's. (4) C. difficile colitis: Status: Acute Assessment and plan: patient has completed 15 days of oral vancomycin. I will dc the vancomycin when she comes off the cefpodoxime (5) Chronic obstructive pulmonary disease: Status: Chronic Assessment and plan: continue her Bevespi along w/prn albuterol. I have stopped her Roflumilast in light of her recurrent nausea Qualifiers: COPD type: emphysema Emphysema type: centrilobular Qualified Code(s): J43.2 - Centrilobular emphysema (6) Essential hypertension: Status: Chronic Assessment and plan: BP stable. continue low dose bisoprolol. Entresto on hold d/t worsening renal fxn (7) GERD (gastroesophageal reflux disease): Status: Chronic Assessment and plan: patient not currently on H2 cyndi nor on a PPI (PPI was stopped during her acute colitis from C diff). I think she can go on low dose H2 cyndi. I will put her on pepcid 10 mg qod (8) Polymyalgia rheumatica: Status: Chronic Assessment and plan: remains on prednisone 15 mg daily. I think that a slow taper is in order. I think we can begin w/ 12.5 mg daily and decrease every 2 weeks by 2.5 mg (9) Type 2 diabetes mellitus with retinopathy of both eyes, with long-term current use of insulin: Status: Chronic Assessment and plan: Lantus 35 units daily along w/ insulin sensitive sliding scale. She would benefit from CHO coverage. I have added novolog at 1:15 insulin: CHO ratio. No nocturnal coverage w/ sliding scale d/t her hx of nocturnal hypoglycemia (10) Chronic anemia: Status: Acute Assessment and plan: Hb stable around 9 gm. will monitor. she previously had treatment w/ Venofer for iron deficiency. she can not tolerate po iron. She would benefit from EPO (11) DVT prophylaxis: Status: Acute Assessment and plan: heparin SC (12) Discharge planning issues: Status: Acute Assessment and plan: per CM, she has been referred and accepted to the [facility] for Thursday. Subjective Subjective Interval history since last seen: Beth feels nauseated again today and also complaining of headache. She has been on a free water restriction and has been on diuretics for her CHF but her renal failure has worsened. No increased dyspnea. Exam Narrative Exam Narrative: Beth appears fatigued. Eyes appear sunken. Lungs: clear Heart: irregularly irregular, controlled rate Abdomen: nondistended, soft Legs/feet: right foot wound is dressed w/ VINAY wrap and bandage (I asked nursing to let me know when they change the dressing today, so I can look at her foot wound) No significant edema in her legs; toes are warm w/ decreased capillary refill; no cyanosis Objective Last Vital Signs Temp 36.0 C L 01/29/23 07:19 Pulse 88 01/29/23 07:19 Resp 18 01/29/23 07:19 BP 105/54 L 01/29/23 07:19 Pulse Ox 98 01/29/23 07:19 Laboratory Results - last 24 hr 01/28/23 01/29/23 16:45 06:50 Sodium 136 Potassium 3.8 Chloride 92 L Carbon Dioxide 36.9 H Anion Gap 7.1 BUN 100 H* Creatinine 4.0 H* Est GFR (CKD-EPI 2020) 11.27 Glucose 562 H* 111 H Calcium 9.4 Reviewed Pertinent PMH: Yes Time Spent with Patient Time Spent with Patient: 25-34 minutes Time was spent: preparing to see the patient(eg.review tests), ordering medications,tests, procedures, referring, communicating with other health care manager cna, indepentently interpreting results, counseling the patient and care coordination
[2023-01-29] MEDS: Insulin Aspart 300 UNITS/3 ML PEN SC ×3 (12:01→17:34)
--- NOTE | 2023-01-29 13:07 | W.PM.PROGNOT ---
Date of Service Date of service: 01/29/23 Time of Service: 18:10 Assessment and Plan Assessment and plan (1) Cellulitis of foot, right: Status: Acute Assessment and plan: Much improved. Healing aided by decrased pedal edema Diabetic foot infection R foot. She did not tolerate the NM bone scan but apparently they were able to complete her US which showed a pocket of fluid the measures 1.2 x 1[address] Pickens has indicated that given the patient PAD, vascular surgery should be consulted prior to any drainage procedure. Patient refuses to go to [facility]. Dr Valle did perform a stab I&D and returned some clotted dark blood and clear fluid. Cont. cefpodoxime in preperation for d/c; s/p Daptomycin/meropenem( MRSA screen negative). No OM per XR. Continue compression. KEYONNA c/w PAD . (2) CHF (congestive heart failure): Status: Chronic Assessment and plan: Acute on CHFrEF. LVEF 40% per echo in 10/23, with evidence of a small patent foramen ovale with [id number] flow. tolerating low dose bisoprolol but now her Creatinine is now increased to 4.0 Will continue metolazone 2.5mg [id number] and spironolactone 50mg daily. Hold bumex. Stop fluid restriction Monitor for need to restart bumex. k. Qualifiers: Heart failure type: systolic Heart failure chronicity: acute on chronic Qualified Code(s): I50.23 - Acute on chronic systolic (congestive) heart failure (3) Elevated troponin: Status: Acute Assessment and plan: likely demand ischemia. No further CP (4) C. difficile colitis: Status: Acute Assessment and plan: Improved. stools now formed. continue probiotics and oral vancomycin. will need to remain on oral vancomycin for another month i.e. 2 weeks past her end date of her antibiotics for her cellulitis (5) Acute kidney injury superimposed on chronic kidney disease: Status: Acute Assessment and plan: acute prerenal azotemia Likely overdiuresed again. Her diuretics and her Entresto have been held briefly, then restarted. Creatinine now 3.2. Dialysis was discussed w/ her and she does not want to consider hemodialysis. (6) Chronic anemia: Status: Acute Assessment and plan: Iron deficiency anemia. S/p venofer 300 mg on 01/10 and 01/11. Continue to monitor - H/H stable; no active bleeding (7) Type 2 diabetes mellitus with retinopathy of both eyes, with long-term current use of insulin: Status: Chronic Assessment and plan: Continue lantus daily + moderate SSI. Adjust as needed. Jardiance added for her CHF but now has been discontinued d/t her worsening renal fxn. (8) Chronic obstructive pulmonary disease: Status: Chronic Assessment and plan: Continue albuterol prn, Bevespi aerosphere. Patient w/ moist cough, nonproductive; says it is keeping her up at night despite Tessalon perles and Robitussin DM although she has only received it once today and once yesterday. I will put her on scheduled doses of Mucinex 1200 mg bid. Also should consider addition of Daliresp to her regimen. Cont. Acapella treatments Qualifiers: COPD type: emphysema Emphysema type: centrilobular Qualified Code(s): J43.2 - Centrilobular emphysema (9) Polymyalgia rheumatica: Status: Chronic Assessment and plan: Continue home prednisone 15 mg daily. (10) DVT prophylaxis: Status: Acute Assessment and plan: SC heparin (11) Discharge planning issues: Status: Acute Assessment and plan: DNR/DNI She was in rehab at [facility] prior to admission. Her bed hold and they are not accepting her back as a new pt; they are not admitting any new pts at this time. Care Management looking for other alternative SNF. Subjective Subjective Patient reports: tolerating a regular diet and afebrile; denies nausea or shortness of breath Interval history since last seen: Pt continues to voice disappointment in not being able to go back to [facility]. She is resigned to knowing that she needs fpc/rehab. Exam Narrative Exam Narrative: Gen: Frail appearing. Cooperative and interactive. Lungs: some scattered rhochi and expiratory wheezes. Speaks in complete sentences. Heart: RRR Abdomen: soft, nontender Exts. BLE bandages and wraps in place. Psych: sad affect. Objective Last Vital Signs Temp 36.0 C L 01/29/23 07:19 Pulse 88 01/29/23 07:19 Resp 18 01/29/23 07:19 BP 105/54 L 01/29/23 07:19 Pulse Ox 98 01/29/23 07:19 Laboratory Results - last 24 hr 01/28/23 01/29/23 16:45 06:50 Sodium 136 Potassium 3.8 Chloride 92 L Carbon Dioxide 36.9 H Anion Gap 7.1 BUN 100 H* Creatinine 4.0 H* Est GFR (CKD-EPI 2020) 11.27 Glucose 562 H* 111 H Calcium 9.4 Time Spent with Patient Time Spent with Patient: 25-34 minutes Time was spent: preparing to see the patient(eg.review tests), obtaining and/or reviewing separately otained hiistory, referring, communicating with other health farm or ranch animal caretaker and indepentently interpreting results
--- NOTE | 2023-01-29 14:35 | CHAPLAIN ---
Beth was talking with her Warehouse Technician Sandra Churchill when I visited. Sandra let Beth know that she's been accepted at the [facility] and will be transferred there on Thursday (02/02). Beth was very relieved to hear this. She left the [facility] AMA the last time she was there. And has since lived at [facility], but her bed was given away when she was here, so Beth worried that she didn't have a place to go, and she really wants to leave here. Sandra was able to get the [facility] to reconsider, and Beth talked about how thankful she is to Sandra. Beth's had trouble sleeping, but thought she might be able to rest better tonight because she now knows where she'll be living. Her aunt lives at the [facility] and she said she knows others there as well.
[2023-01-29 16:13] VITALS: BP 118/70; PULSE 73; RESP 20; TEMP 36.7; O2SAT 97
[2023-01-29] MEDS: Melatonin 3 MG TAB PO (21:21)
[2023-01-30 01:01] VITALS: BP 93/57; PULSE 110; RESP 18; TEMP 36.1; O2SAT 96
[2023-01-30] MEDS: Albuterol HFA 8 GM 60 PUFF INH IH ×3 (03:31→19:26)
[2023-01-30] MEDS: Acetaminophen 325 MG TAB PO ×2 (03:31→21:06)
[2023-01-30 06:51] LABS: Abs Immature Grans 0.03 10^3/uL (0.0-0.06); Absolute Basophil Count 0.02 10^3/uL (0.0-0.2); Absolute Eosinophil Count 0.07 10^3/uL (0.0-0.7); Absolute Lymphocyte Count 1.26 10^3/uL (1.2-3.4); Absolute Monocyte Count 0.88 10^3/uL (0.1-0.8); Absolute Neutrophil Count 6.97 10^3/uL (1.2-6.7); Basophils % 0.2; Eosinophils % 0.8; HCT 27.5 % (36.0-46.0); HGB 8.5 g/dL (11.2-15.7); Immature Grans % 0.3; Lymphocytes % 13.7; MCHC 30.9 % (32.0-36.0); MCV 87 fL (80-95); MPV 10.8 fL (8.0-11.0); Monocytes % 9.5; Neutrophils % 75.5; Platelet Count 233 10^3/uL (130-400); RBC 3.15 10^6/uL (3.93-5.22); RDW 16.9 % (11.7-14.6); RDW-SD 53.6 fL; WBC 9.23 10^3/uL (4.4-10.8)
[2023-01-30 07:07] LABS: Anion Gap 5.6 mmol/L (3-11); C-Reactive Protein 0.39 mg/dL (0.0-0.3); CO2 35.4 mmol/L (21.0-32.0); Calcium 9.3 mg/dL (8.5-10.1); Chloride 94 mmol/L (98-107); Estimated GFR 10.33 (mL/min/1.73m2); Glucose 206 mg/dL (74-106); Potassium 3.7 mmol/L (3.5-5.1); Sodium 135 mmol/L (136-145)
[2023-01-30 07:12] LABS: BUN 105 mg/dL (7-18)
[2023-01-30 07:13] LABS: CREATININE 4.3 mg/dL (0.55-1.02)
[2023-01-30 07:26] LABS: Procalcitonin 0.1 ng/mL
[2023-01-30 07:42] VITALS: BP 118/70; PULSE 104; RESP 20; TEMP 37.3; O2SAT 97
[2023-01-30] MEDS: Cefpodoxime 200 MG TAB PO (07:45)
[2023-01-30] MEDS: Famotidine 20 MG TAB PO (07:45)
[2023-01-30] MEDS: Cilostazol 100 MG TAB PO ×2 (07:45→19:25)
[2023-01-30] MEDS: Insulin Aspart 300 UNITS/3 ML PEN SC ×6 (07:47→17:37)
[2023-01-30] MEDS: rOPINIRole 0.5 MG TAB 0.25 MG PO ×2 (07:50→16:23)
[2023-01-30] MEDS: Clopidogrel 75 MG TAB PO (07:51)
[2023-01-30] MEDS: Aspirin E.C. 81 MG TABEC PO (07:51)
[2023-01-30] MEDS: Cholecalciferol (Vitamin D3) 1,000 UNIT TAB 1000 UNITS PO (07:53)
[2023-01-30] MEDS: Bisoprolol 5 MG TAB 1.25 MG PO (07:53)
[2023-01-30] MEDS: predniSONE 5 MG TAB PO (07:55)
[2023-01-30] MEDS: predniSONE 10 MG TAB PO (07:55)
[2023-01-30] MEDS: Vancomycin 125 MG CAP 250 MG PO ×4 (07:57→19:25)
[2023-01-30] MEDS: guaiFENesin 600 MG TABCR 1200 MG PO ×2 (07:58→19:24)
[2023-01-30] MEDS: Benzonatate 100 MG CAP PO ×3 (07:58→19:25)
[2023-01-30] MEDS: Cetirizine 10 MG TAB 5 MG PO (08:02)
--- NOTE | 2023-01-30 08:33 | CMPROGNOTE_ITS ---
- If Service Date Differs Date of service: 01/30/23 Time of Service: 08:33 Care Management Progress Note S/O: Beth was sitting up on the side of the bed when CM met with her. Her daughter Lida was visiting at the time and engaged in the conversation about discharge planning. Beth has been accepted at [facility] for short term rehab on Thursday, with conditions. CM reviewed the behavioral expectations with Beth and Deb again. Beth appeared to be genuinely unaware of how offensive her tone of voice and choice of words can be to staff. Lida was able to offer examples and suggested different approaches. Beth's daughter Keri lives in [place] and is a nurse. CM suggested that it might be best for Keri to take a more active role and serve as the family spokesperson when Beth goes to the [facility]. Keri agreed and that will be the plan moving forward. Mindy has removed Beth's belongings from [facility] and will transport to [facility] on Thursday. A:Beth is a 72 year old woman admitted on 01/06/23 with cellulitis and CHF P:Beth will likely be discharged to [facility] on Thursday. CM received a call yesterday that they have reconsidered and will offer Beth a bed. She will transfer for short term rehab with a plan to transition to correction care. Beth will follow up with facility providers and plan of care and transport via w/c van. CM will continue to support Beth and assess for ongoing discharge needs.
[2023-01-30] MEDS: Insulin Glargine 300 UNITS/3 ML PEN 35 UNITS SC (08:37)
[2023-01-30] MEDS: Ondansetron O.D.T. 4 MG TABEF PO (09:37)
--- NOTE | 2023-01-30 10:09 | W.PM.PROGNOT ---
Date of Service Date of service: 01/30/23 Time of Service: 10:10 Assessment and Plan Assessment and plan (1) Cellulitis of foot, right: Status: Acute Assessment and plan: Much improved. Healing aided by decrased pedal edema Diabetic foot infection R foot. She did not tolerate the NM bone scan but apparently they were able to complete her US which showed a pocket of fluid the measures 1.2 x 1.[address] Pickens has indicated that given the patient PAD, vascular surgery should be consulted prior to any drainage procedure. Patient refuses to go to [facility]. Dr Valle did perform a stab I&D and returned some clotted dark blood and clear fluid. s/p Daptomycin/meropenem( MRSA screen negative). patient has been on cefpodoxime since 01/15. Her procalcitonin is normal at 0.1 and CRP is 0.39. I will stop her cefpodoxime and her vancomycin. No OM per XR. Continue compression. KEYONNA c/w PAD Professional time spent interviewing and examining patient, discussion of goals of care with hospital team (care management, nursing and consulting professionals) was 30well just minutes. . (2) CHF (congestive heart failure): Status: Chronic Assessment and plan: Acute on CHFrEF. LVEF 40% per echo in 10/23, with evidence of a small patent foramen ovale with jhay-[id number] flow. tolerating low dose bisoprolol but now her Creatinine is now increased to 4.3 and BUN 105. metolozone and spironolactone and bumex on hold Stop fluid restriction Qualifiers: Heart failure chronicity: acute on chronic Heart failure type: systolic Qualified Code(s): I50.23 - Acute on chronic systolic (congestive) heart failure (3) C. difficile colitis: Status: Acute Assessment and plan: Improved. stools now formed. continue probiotics but now that cefpodoxime is being stopped we can stop her vancomycin (4) Acute kidney injury superimposed on chronic kidney disease: Status: Acute Assessment and plan: acute prerenal azotemia Likely overdiuresed again. diuretic on hold Dialysis was discussed w/ her and she does not want to consider hemodialysis. (5) Chronic anemia: Status: Acute Assessment and plan: Iron deficiency anemia. S/p venofer 300 mg on 01/10 and 01/11. Continue to monitor - H/H stable; no active bleeding (6) Type 2 diabetes mellitus with retinopathy of both eyes, with long-term current use of insulin: Status: Chronic Assessment and plan: Continue lantus daily + moderate SSI. Adjust as needed. Jardiance added for her CHF but now has been discontinued d/t her worsening renal fxn. (7) Chronic obstructive pulmonary disease: Status: Chronic Assessment and plan: Continue albuterol prn, Bevespi aerosphere. Patient w/ moist cough, nonproductive; says it is keeping her up at night despite Tessalon perles and Robitussin DM although she has only received it once today and once yesterday. I will put her on scheduled doses of Mucinex 1200 mg bid. Also should consider addition of Daliresp to her regimen. Cont. Acapella treatments Qualifiers: COPD type: emphysema Emphysema type: centrilobular Qualified Code(s): J43.2 - Centrilobular emphysema (8) Polymyalgia rheumatica: Status: Chronic Assessment and plan: Continue home prednisone 15 mg daily. (9) DVT prophylaxis: Status: Acute Assessment and plan: SC heparin (10) Discharge planning issues: Status: Acute Assessment and plan: DNR/DNI ABUNDIO has secured a bed for her at [facility] for Thursday Subjective Subjective Interval history since last seen: Patient complains of early satiety, and feeling tired after eating. cough has improved w/ the muxinex. Her leg edema has resolved. We are still holding her diuretics d/t her azotemia. I met w/ the patient's daughter who was here this morning and explained that ABUNDIO has secured a bed for Beth at [facility] for Thursday. I also explained that d/t her azotemia and her currently being euvolemic,, I am holding her diuretics for couple days but that Beth will be discharge on Thursday on some diuretics but will probably have a new baseline of her CKD. Currently her BUN is over 100 and creatinine of 4. Exam Narrative Exam Narrative: Thin, cachectic, tired appearing; but otherwise alert and oriented LUngs: clear to auscultation Heart: regular, soft sytolic mumur at apex. no thrill, heave or gallops Abdomen: soft, non-distended, nontender to palpation Legs/feet: right foot wound was undressed. She has a white/hill eschar over the dorsum but no purulent discharge. slight pinkish coloration around the central eschar but no edmea; palpable posterior tibialis pulse; nonpalpable DP pulse; no cyanosis. Objective Last Vital Signs Temp 37.3 C 01/30/23 07:42 Pulse 104 H 01/30/23 07:42 Resp 20 01/30/23 07:42 BP 118/70 01/30/23 07:42 Pulse Ox 97 01/30/23 07:42 Laboratory Results - last 24 hr 01/30/23 01/30/23 01/30/23 06:05 06:05 06:05 WBC RBC Hgb Hct MCV MCH MCHC RDW Plt Count MPV Reticulocyte % (Auto) 3.0 H Immature Gran % Neutrophils % Lymphocytes % Monocytes % Eosinophils % Basophils % Nucleated RBC % Absolute Neutrophils Absolute Lymphocytes Absolute Monocytes Absolute Eosinophils Absolute Basophils Sodium 135 L Potassium 3.7 Chloride 94 L Carbon Dioxide 35.4 H Anion Gap 5.6 BUN 105 H* Creatinine 4.3 H* Est GFR (CKD-EPI 2020) 10.33 Glucose 206 H Calcium 9.3 C-Reactive Protein 0.39 H Procalcitonin 0.1 01/30/23 06:05 WBC 9.23 RBC 3.15 L Hgb 8.5 L Hct 27.5 L MCV 87 MCH 27.0 MCHC 30.9 L RDW 16.9 H Plt Count 233 MPV 10.8 Reticulocyte % (Auto) Immature Gran % 0.3 Neutrophils % 75.5 Lymphocytes % 13.7 Monocytes % 9.5 Eosinophils % 0.8 Basophils % 0.2 Nucleated RBC % 0.0 Absolute Neutrophils 6.97 H Absolute Lymphocytes 1.26 Absolute Monocytes 0.88 H Absolute Eosinophils 0.07 Absolute Basophils 0.02 Sodium Potassium Chloride Carbon Dioxide Anion Gap BUN Creatinine Est GFR (CKD-EPI 2020) Glucose Calcium C-Reactive Protein Procalcitonin Time Spent with Patient Time Spent with Patient: 25-34 minutes Time was spent: preparing to see the patient(eg.review tests), ordering medications,tests, procedures, indepentently interpreting results, counseling the patient and care coordination
[2023-01-30 15:02] VITALS: BP 116/50; PULSE 87; RESP 20; TEMP 36.7; O2SAT 97
--- NOTE | 2023-01-30 15:51 | CHAPLAIN ---
Beth remains happy about her planned move to the [facility] on Thursday. She said I'll be fine if I behave myself. According to Care Management know, Beth and her daughters talked with Care Management about how Beth could better approach staff at the [facility] with concerns and made a plan for Beth's daughter, who is a nurse, to relay any information to staff for Beth. Beth has lived at the [facility] before, but left AMA. She is knows a few residents there and is looking forward to seeing them and also to getting her Posturpedic mattress topper for her bed at the [facility]. She thinks she will sleep better there. Sujatha asked me to continue to pray for her. She was appreciative of the prayer shawl I gave her.
[2023-01-30] MEDS: Melatonin 3 MG TAB PO (21:06)
[2023-01-30] MEDS: LORazepam 0.5 MG TAB PO (21:08)
[2023-01-30 23:16] VITALS: BP 117/67; PULSE 99; RESP 18; TEMP 36.4; O2SAT 99
[2023-01-31] MEDS: Acetaminophen 325 MG TAB PO ×3 (02:58→19:34)
[2023-01-31] MEDS: LORazepam 0.5 MG TAB PO ×2 (02:58→21:08)
[2023-01-31] MEDS: Cilostazol 100 MG TAB PO ×2 (07:39→19:34)
[2023-01-31 07:43] VITALS: BP 139/66; PULSE 97; RESP 19; TEMP 36; O2SAT 98
[2023-01-31 08:05] LABS: Anion Gap 5.7 mmol/L (3-11); CO2 35.3 mmol/L (21.0-32.0); Calcium 9.3 mg/dL (8.5-10.1); Chloride 96 mmol/L (98-107); Estimated GFR 11.62 (mL/min/1.73m2); Glucose 72 mg/dL (74-106); Potassium 3.8 mmol/L (3.5-5.1); Sodium 137 mmol/L (136-145)
[2023-01-31 08:12] LABS: BUN 101 mg/dL (7-18); CREATININE 3.9 mg/dL (0.55-1.02)
[2023-01-31] MEDS: predniSONE 10 MG TAB PO (08:20)
[2023-01-31] MEDS: Cefpodoxime 200 MG TAB PO (08:20)
[2023-01-31] MEDS: Aspirin E.C. 81 MG TABEC PO (08:20)
[2023-01-31] MEDS: Clopidogrel 75 MG TAB PO (08:20)
[2023-01-31] MEDS: Cholecalciferol (Vitamin D3) 1,000 UNIT TAB 1000 UNITS PO (08:20)
[2023-01-31] MEDS: Benzonatate 100 MG CAP PO ×3 (08:21→19:34)
[2023-01-31] MEDS: rOPINIRole 0.5 MG TAB 0.25 MG PO ×2 (08:21→16:28)
[2023-01-31] MEDS: Cetirizine 10 MG TAB 5 MG PO (08:22)
[2023-01-31] MEDS: predniSONE 5 MG TAB PO (08:25)
[2023-01-31] MEDS: guaiFENesin 600 MG TABCR 1200 MG PO ×2 (08:27→19:34)
[2023-01-31] MEDS: Insulin Aspart 300 UNITS/3 ML PEN SC ×5 (08:27→17:36)
[2023-01-31] MEDS: Vancomycin 125 MG CAP 250 MG PO ×2 (08:29→15:11)
[2023-01-31] MEDS: Albuterol HFA 8 GM 60 PUFF INH IH ×2 (08:29→19:36)
[2023-01-31] MEDS: Insulin Glargine 300 UNITS/3 ML PEN 35 UNITS SC (09:15)
[2023-01-31] MEDS: Ondansetron O.D.T. 4 MG TABEF PO (11:08)
[2023-01-31] MEDS: Bisoprolol 5 MG TAB 1.25 MG PO (11:09)
[2023-01-31 15:59] VITALS: BP 129/69; PULSE 103; RESP 19; TEMP 36.7; O2SAT 99
[2023-01-31 17:08] LABS: Glucose 470 mg/dL (74-106)
--- NOTE | 2023-01-31 18:38 | W.PM.PROGNOT ---
Date of Service Date of service: 01/31/23 Time of Service: 18:38 Assessment and Plan Assessment and plan (1) Cellulitis of foot, right: Status: Resolved Assessment and plan: Diabetic foot infection R foot. Finished abx. Continue compression. S/p I&D by ortho: clotted dark blood and clear fluid. KEYONNA c/w PAD - outpatient follow up with vascular surgery. (2) CHF (congestive heart failure): Status: Chronic Assessment and plan: Acute on CHFrEF. LVEF 40% per echo in 10/23, a small patent foramen ovale with [id number] flow. Continue bisoprolol. Hold diuretics another day. Cr is slightly better. Would hold off of IVF at this time. Qualifiers: Heart failure chronicity: acute on chronic Heart failure type: systolic Qualified Code(s): I50.23 - Acute on chronic systolic (congestive) heart failure (3) C. difficile colitis: Status: Resolved Assessment and plan: continue probiotics. Oral vancomycin held. (4) Acute kidney injury superimposed on chronic kidney disease: Status: Acute Assessment and plan: As above - hold diuretics. Patient is not interested in dialysis in the future. (5) Chronic anemia: Status: Acute Assessment and plan: With evidence of iron deficiency. S/p venofer 300 mg on 01/10 and 01/11. Not clinically bleeding. Continue to monitor (6) Elevated troponin: Status: Acute Assessment and plan: In setting of CHF. Not healthcare sales representative of an ACS. No further workup at this time. (7) Pulmonary infiltrate: Status: Resolved (8) Type 2 diabetes mellitus with retinopathy of both eyes, with long-term current use of insulin: Status: Chronic Assessment and plan: With hyperglycemia; complicated by noncompliance with insulin even here. I have increased her corrective scale. jardiance was d/c'ed due to her PALAK on CKD. (9) Chronic obstructive pulmonary disease: Status: Chronic Assessment and plan: Continue albuterol prn, Bevespi aerosphere. Continue Mucinex 1200 mg bid. ? role for daliresp. Encourage pulmonary toilet. Qualifiers: COPD type: emphysema Emphysema type: centrilobular Qualified Code(s): J43.2 - Centrilobular emphysema (10) Polymyalgia rheumatica: Status: Chronic Assessment and plan: Continue prednisone 15 mg daily. (11) DVT prophylaxis: Status: Acute Assessment and plan: SC heparin (12) Discharge planning issues: Status: Acute Assessment and plan: DNR/DNI Discharge to the [facility] on Friday 02/02 Subjective Subjective Interval history since last seen: I have chicken legs! Ms Pratt feels better. Her breathing is better, though she does still cough. Denies dizziness, chest pain, shortness of breath. Endorses occasional nausea - not today. No abdominal pain. No diarrhea. She is ready for discharge to the [facility] on Thursday - can't wait. Refused an afternoon BMP. Reports vaginal itching - was started on miconazole. Exam Narrative Exam Narrative: General: female, A&Ox3, sitting up in a chair, anxious HEENT: EOMI, MMM Heart: slightly irregular rate/rhythm Lungs: rales at B bases, cough Abdomen: soft, distended, midline large ventral hernia, nontender Extremities: 2+ pitting edema BLEs,not better, BLEs wrapped in tyree wraps to ankles Objective Last Vital Signs Temp 36.7 C 01/31/23 15:59 Pulse 103 H 01/31/23 15:59 Resp 19 01/31/23 15:59 BP 129/69 01/31/23 15:59 Pulse Ox 99 01/31/23 15:59 Laboratory Results - last 24 hr 01/31/23 01/31/23 06:55 16:45 Sodium 137 Potassium 3.8 Chloride 96 L Carbon Dioxide 35.3 H Anion Gap 5.7 BUN 101 H* Creatinine 3.9 H* Est GFR (CKD-EPI 2020) 11.62 Glucose 72 L 470 H Calcium 9.3 Time Spent with Patient Time Spent with Patient: 35-49 minutes Time was spent: preparing to see the patient(eg.review tests), obtaining and/or reviewing separately otained hiistory, ordering medications,tests, procedures, referring, communicating with other health patient care provider, indepentently interpreting results, counseling the patient and care coordination
[2023-01-31] MEDS: Melatonin 3 MG TAB PO (21:08)
[2023-01-31 23:54] VITALS: BP 129/68; PULSE 110; RESP 16; TEMP 36.6; O2SAT 99
[2023-02-01] MEDS: LORazepam 0.5 MG TAB PO (01:42)
[2023-02-01] MEDS: Acetaminophen 325 MG TAB PO ×3 (01:42→20:06)
[2023-02-01 07:18] LABS: Abs Immature Grans 0.02 10^3/uL (0.0-0.06); Absolute Basophil Count 0.02 10^3/uL (0.0-0.2); Absolute Eosinophil Count 0.08 10^3/uL (0.0-0.7); Absolute Lymphocyte Count 1.19 10^3/uL (1.2-3.4); Absolute Monocyte Count 0.78 10^3/uL (0.1-0.8); Absolute Neutrophil Count 7.35 10^3/uL (1.2-6.7); Basophils % 0.2; Eosinophils % 0.8; HCT 25.5 % (36.0-46.0); Immature Grans % 0.2; Lymphocytes % 12.6; MCH 27.7 pg (27.0-33.0); MCHC 31.4 % (32.0-36.0); MCV 88 fL (80-95); MPV 10.5 fL (8.0-11.0); Monocytes % 8.3; Neutrophils % 77.9; Platelet Count 216 10^3/uL (130-400); RBC 2.89 10^6/uL (3.93-5.22); RDW 16.9 % (11.7-14.6); RDW-SD 54.6 fL; WBC 9.44 10^3/uL (4.4-10.8)
[2023-02-01 07:34] VITALS: BP 129/74; PULSE 93; RESP 18; TEMP 36; O2SAT 96
[2023-02-01 07:43] LABS: Anion Gap 8.4 mmol/L (3-11); CO2 33.6 mmol/L (21.0-32.0); Calcium 9.4 mg/dL (8.5-10.1); Chloride 97 mmol/L (98-107); Estimated GFR 12.79 (mL/min/1.73m2); Glucose 87 mg/dL (74-106); Potassium 4.1 mmol/L (3.5-5.1); Sodium 139 mmol/L (136-145)
[2023-02-01 07:44] LABS: Magnesium 2.8 mg/dL (1.8-2.4)
[2023-02-01 07:45] LABS: BUN 105 mg/dL (7-18); CREATININE 3.6 mg/dL (0.55-1.02)
[2023-02-01] MEDS: Cholecalciferol (Vitamin D3) 1,000 UNIT TAB 1000 UNITS PO (08:32)
[2023-02-01] MEDS: Cefpodoxime 200 MG TAB PO (08:33)
[2023-02-01] MEDS: rOPINIRole 0.5 MG TAB 0.25 MG PO ×2 (08:33→16:08)
[2023-02-01] MEDS: Cetirizine 10 MG TAB 5 MG PO (08:36)
[2023-02-01] MEDS: predniSONE 5 MG TAB PO (08:36)
[2023-02-01] MEDS: predniSONE 10 MG TAB PO (08:37)
[2023-02-01] MEDS: Benzonatate 100 MG CAP PO ×3 (08:37→20:07)
[2023-02-01] MEDS: Aspirin E.C. 81 MG TABEC PO (08:37)
[2023-02-01] MEDS: Docusate Sodium 100 MG CAP PO (08:37)
[2023-02-01] MEDS: guaiFENesin 600 MG TABCR 1200 MG PO ×2 (08:38→20:07)
[2023-02-01] MEDS: Clopidogrel 75 MG TAB PO (08:38)
[2023-02-01] MEDS: Famotidine 20 MG TAB PO (08:38)
[2023-02-01] MEDS: Cilostazol 100 MG TAB PO ×2 (08:47→20:07)
[2023-02-01] MEDS: Bisoprolol 5 MG TAB 1.25 MG PO (08:48)
[2023-02-01] MEDS: Insulin Aspart 300 UNITS/3 ML PEN SC ×5 (08:51→17:12)
[2023-02-01] MEDS: Insulin Glargine 300 UNITS/3 ML PEN 35 UNITS SC (08:54)
[2023-02-01] MEDS: Albuterol HFA 8 GM 60 PUFF INH IH (09:02)
[2023-02-01 15:29] VITALS: BP 122/63; PULSE 99; RESP 18; TEMP 36.2; O2SAT 96
[2023-02-01 17:59] LABS: Source Nasal/Nares
[2023-02-01 18:29] LABS: COVID-19 PCR Negative (Negative)
--- NOTE | 2023-02-01 19:46 | W.PM.PROGNOT ---
Date of Service Date of service: 02/01/23 Time of Service: 19:46 Assessment and Plan Assessment and plan (1) Cellulitis of foot, right: Status: Resolved Assessment and plan: Diabetic foot infection R foot. Finished abx. Continue compression. S/p I&D by ortho: clotted dark blood and clear fluid. KEYONNA c/w PAD - outpatient follow up with vascular surgery. (2) CHF (congestive heart failure): Status: Chronic Assessment and plan: Acute on CHFrEF. LVEF 40% per echo in 10/23, a small patent foramen ovale with [id number] flow. Continue bisoprolol. Hold diuretics today. Cr is improving. No edema. Would hold off of IVF at this time. Qualifiers: Heart failure type: systolic Heart failure chronicity: acute on chronic Qualified Code(s): I50.23 - Acute on chronic systolic (congestive) heart failure (3) C. difficile colitis: Status: Resolved Assessment and plan: continue probiotics. Oral vancomycin resumed x 1 week since the end of systemic therapy. (4) Acute kidney injury superimposed on chronic kidney disease: Status: Acute Assessment and plan: As above - hold diuretics. Patient is not interested in dialysis in the future. (5) Chronic anemia: Status: Acute Assessment and plan: With evidence of iron deficiency. S/p venofer 300 mg on 01/10 and 01/11. Not clinically bleeding. Continue to monitor (6) Elevated troponin: Status: Acute Assessment and plan: In setting of CHF. Not environmental marketing representative of an ACS. No further workup at this time. (7) Pulmonary infiltrate: Status: Resolved (8) Type 2 diabetes mellitus with retinopathy of both eyes, with long-term current use of insulin: Status: Chronic Assessment and plan: With hyperglycemia; complicated by noncompliance with insulin even here. I have increased her corrective scale. jardiance was d/c'ed due to her PALAK on CKD. Continue to monitor blood sugars. (9) Chronic obstructive pulmonary disease: Status: Chronic Assessment and plan: Continue albuterol prn, Bevespi aerosphere. Continue Mucinex 1200 mg bid. ? role for daliresp. Encourage pulmonary toilet. Qualifiers: COPD type: emphysema Emphysema type: centrilobular Qualified Code(s): J43.2 - Centrilobular emphysema (10) Polymyalgia rheumatica: Status: Chronic Assessment and plan: Continue prednisone 15 mg daily. (11) DVT prophylaxis: Status: Acute Assessment and plan: SC heparin (12) Discharge planning issues: Status: Acute Assessment and plan: DNR/DNI Discharge to the [facility] on Friday 02/02 Subjective Subjective Interval history since last seen: Beth feels well. She denies dizziness, shortness of breath, chest pain, nausea. Her legs are not swollen. Exam Narrative Exam Narrative: General: female, A&Ox3, sitting up at the side of the bed HEENT: EOMI, MMM Heart: slightly irregular rate/rhythm Lungs: rales at B bases Abdomen: soft, distended, midline large ventral hernia, nontender Extremities: no edema BLEs, R ankle wrapped. Objective Last Vital Signs Temp 36.2 C L 02/01/23 15:29 Pulse 99 H 02/01/23 15:29 Resp 18 02/01/23 15:29 BP 122/63 02/01/23 15:29 Pulse Ox 96 02/01/23 15:29 Laboratory Results - last 24 hr 02/01/23 02/01/23 02/01/23 06:55 06:55 06:55 WBC 9.44 RBC 2.89 L Hgb 8.0 L Hct 25.5 L MCV 88 MCH 27.7 MCHC 31.4 L RDW 16.9 H Plt Count 216 MPV 10.5 Immature Gran % 0.2 Neutrophils % 77.9 Lymphocytes % 12.6 Monocytes % 8.3 Eosinophils % 0.8 Basophils % 0.2 Nucleated RBC % 0.0 Absolute Neutrophils 7.35 H Absolute Lymphocytes 1.19 L Absolute Monocytes 0.78 Absolute Eosinophils 0.08 Absolute Basophils 0.02 Sodium 139 Potassium 4.1 Chloride 97 L Carbon Dioxide 33.6 H Anion Gap 8.4 BUN 105 H* Creatinine 3.6 H* Est GFR (CKD-EPI 2020) 12.79 Glucose 87 Calcium 9.4 Magnesium 2.8 H COVID-19 Source SARS-CoV-2 (PCR) 02/01/23 17:50 WBC RBC Hgb Hct MCV MCH MCHC RDW Plt Count MPV Immature Gran % Neutrophils % Lymphocytes % Monocytes % Eosinophils % Basophils % Nucleated RBC % Absolute Neutrophils Absolute Lymphocytes Absolute Monocytes Absolute Eosinophils Absolute Basophils Sodium Potassium Chloride Carbon Dioxide Anion Gap BUN Creatinine Est GFR (CKD-EPI 2020) Glucose Calcium Magnesium COVID-19 Source Nasal/Nares SARS-CoV-2 (PCR) Negative Time Spent with Patient Time Spent with Patient: 25-34 minutes Time was spent: preparing to see the patient(eg.review tests), obtaining and/or reviewing separately otained hiistory, ordering medications,tests, procedures, referring, communicating with other health neonatal intensive care nurse, indepentently interpreting results, counseling the patient and care coordination
[2023-02-01] MEDS: Melatonin 3 MG TAB PO (21:50)
[2023-02-01 23:39] VITALS: BP 118/66; PULSE 89; RESP 18; TEMP 36.2; O2SAT 98
[2023-02-02 06:23] VITALS: BP 113/64; PULSE 99; RESP 20; TEMP 36.1; O2SAT 92
[2023-02-02 06:57] LABS: Abs Immature Grans 0.03 10^3/uL (0.0-0.06); Absolute Basophil Count 0.02 10^3/uL (0.0-0.2); Absolute Lymphocyte Count 1.25 10^3/uL (1.2-3.4); Absolute Monocyte Count 0.91 10^3/uL (0.1-0.8); Absolute Neutrophil Count 7.96 10^3/uL (1.2-6.7); Basophils % 0.2; HGB 7.7 g/dL (11.2-15.7); Immature Grans % 0.3; Lymphocytes % 12.2; MCH 27.2 pg (27.0-33.0); MCHC 30.8 % (32.0-36.0); MCV 88 fL (80-95); MPV 10.4 fL (8.0-11.0); Monocytes % 8.9; Neutrophils % 77.4; Platelet Count 210 10^3/uL (130-400); RBC 2.83 10^6/uL (3.93-5.22); RDW 17.1 % (11.7-14.6); WBC 10.27 10^3/uL (4.4-10.8)
[2023-02-02 07:36] LABS: Anion Gap 7.7 mmol/L (3-11); CO2 31.3 mmol/L (21.0-32.0); CREATININE 3.5 mg/dL (0.55-1.02); Calcium 9.4 mg/dL (8.5-10.1); Chloride 96 mmol/L (98-107); Estimated GFR 13.23 (mL/min/1.73m2); Glucose 136 mg/dL (74-106); Magnesium 2.8 mg/dL (1.8-2.4); Potassium 4.3 mmol/L (3.5-5.1); Sodium 135 mmol/L (136-145)
[2023-02-02 07:39] LABS: BUN 107 mg/dL (7-18)
[2023-02-02] MEDS: Aspirin E.C. 81 MG TABEC PO (07:49)
[2023-02-02] MEDS: Cholecalciferol (Vitamin D3) 1,000 UNIT TAB 1000 UNITS PO (07:50)
[2023-02-02] MEDS: Docusate Sodium 100 MG CAP PO (07:50)
[2023-02-02] MEDS: rOPINIRole 0.5 MG TAB 0.25 MG PO (07:50)
[2023-02-02] MEDS: Cilostazol 100 MG TAB PO (07:50)
[2023-02-02] MEDS: Bisoprolol 5 MG TAB 1.25 MG PO (07:50)
[2023-02-02] MEDS: Cetirizine 10 MG TAB 5 MG PO (07:51)
[2023-02-02] MEDS: Clopidogrel 75 MG TAB PO (07:51)
[2023-02-02] MEDS: predniSONE 5 MG TAB PO (07:51)
[2023-02-02] MEDS: Acetaminophen 325 MG TAB PO ×2 (07:51→12:04)
[2023-02-02] MEDS: guaiFENesin 600 MG TABCR 1200 MG PO (07:52)
[2023-02-02] MEDS: predniSONE 10 MG TAB PO (07:52)
[2023-02-02] MEDS: Benzonatate 100 MG CAP PO (07:52)
[2023-02-02 08:00] VITALS: O2SAT 95
[2023-02-02] MEDS: Albuterol HFA 8 GM 60 PUFF INH IH (08:23)
[2023-02-02 09:00] LABS: Lab Add On Test DONE
[2023-02-02] MEDS: Insulin Glargine 300 UNITS/3 ML PEN 35 UNITS SC (09:04)
[2023-02-02] MEDS: Insulin Aspart 300 UNITS/3 ML PEN SC (09:09)
--- NOTE | 2023-02-02 09:21 | PDOC.CMDIS ---
- If Service Date Differs Date of service: 02/02/23 Time of Service: 09:21 LACE Index Scoring Tool - Questions: Length of Stay (in days): 14 or more Acuity (Admit via E.D.?): Yes Comorbidities: Previous M.I., Cerebrovascular Disease, Diabetes w/o Complication, Congestive Heart Failure, Chronic Pulmonary Disease, Liver or Renal Disease E.D. Visits: 9 - Answers: Total Score: 19 Risk of Readmission: High Risk Care Management Discharge Reason for Hospitalization: cellulitis right foot, CHF exacerbation Discharge Plan: Beth will be discharged to [facility] today. She will transfer for short term rehab with a plan to transition to long-term care. [facility] will follow up with facility providers and plan of care and transport via w/c van. Patient/Family Education Needs: Review discharge instructions, activity, medications and limitations, discussion of self care needs including ask me three.
[2023-02-02 09:44] LABS: Procalcitonin 0.1 ng/mL
--- NOTE | 2023-02-02 11:02 | W.PM.DS.N ---
Date of service: 02/02/23 Time of Service: 11:02 DS: Diagnosis Discharge Diagnosis (1) Cellulitis of foot, right: Status: Resolved (2) CHF (congestive heart failure): Status: Chronic Asessment and Plan: Acute on chronic, systolic, LVEF 40%, with pulmonary hypertension (3) C. difficile colitis: Status: Resolved (4) Acute kidney injury superimposed on chronic kidney disease: Status: Acute (5) Chronic anemia: Status: Acute (6) Elevated troponin: Status: Acute (7) Pulmonary infiltrate: Status: Resolved (8) Type 2 diabetes mellitus with retinopathy of both eyes, with long-term current use of insulin: Status: Chronic (9) Chronic obstructive pulmonary disease: Status: Chronic (10) Polymyalgia rheumatica: Status: Chronic Discharge Plan Disposition Patient Disposition: Long Term Facility(SNF) Condition: Stable Discharge Details Reason For Visit: Cellulitis Right Foot, CHF Exacerbation Admit Date/Time: 01/06/23 15:46 Admit Provider: Padilla Tobar Attending Provider: Padilla Tobar [facility] Hospital Course: Ms Pratt is a 72 year old female with PMHx of oxygen-dependent COPD (2-3L of O2 by AR), as well as /o CHFrEF (LVEF 40%), CKD IV, IDDM2, medication noncompliance, who was admitted to [facility] hospitalist service on 01/06/23 for acute on chronic systolic CHF w/ worsening BLE edema and B pleural effusions, cellulitis of R foot w/ suspected diabetic foot infection, question of pneumonia (this was never truly confirmed). The patient was started on empiric broad spectrum antibiotics (meropenem, daptomycin). XR did not demonstrate osteomyelitis, and the patient was ordered to have an MRI of her RLE to rule out osteomyelitis definitively. Unfortunately, she did not tolerate the study and was unable to get contrast due to her poor renal function. Within the limited study, there was no evidence of osteomyelitis. The patient did not tolerate a bone scan to definitively rule out osteomyelitis. Ultrasound revealed a fluid collection on the right dorsal surface of the foot. This was lanced by orthopedics - only coagulated blood was expressed. This was not an abscess. Podiatry did also see the patient on this admission and, given PAD by ABIs, strongly recommended a vascular surgery referral, which is being arranged as outpatient. The patient completed her antibiotics for the cellulitis while in hospital, eventually narrowed the spectrum to cefepime and then to cefpodoxime. While in the hospital, the patient did develop C.diff. This was treated with oral vancomycin, probiotics, anitdiarrheals with resolution of clinical illness. However, the patient should remain on vancomycin orally for 6 more days (24 doses) at the time of discharge since her systemic antibiotics were only completed yesterday. The patient was in acute on chronic systolic CHF. She was aggressively diuresed and required a bumex infusion, from which she was transitioned to oral bumex in addition to metolazone and spironolactone. With this, while very effectively diuresed and edema had resolved, she did, unfortunately, develop an PALAK on CKD, which improved with cessation of diuretics. On discharge, the patient is recommended bumex 2 mg PO daily. Her weights should be monitored daily and diuretic dose adjusted. She should follow up with CHF. She did not tolerate addition of entresto and aldactone (worsening of the kidney function). Her jardiance had been previously discontinued due to hypoglycemia. The patient's fluid overload was likely multifactorial - due to her CKD and CHF. She is not interested in dialysis in the future. The patient's blood sugars on this admission were labile, primarily having to do with the patient's inconsistent compliance with her insulin regimen here. We expect this to continue at the SNF. At this time, the patient is medically stable for discharge. Her Cr is 3.5. She should be closely followed for recurrence of diarrhea. Care for patient in addition to completion of her discharge summary on day of discharge took 120 minutes. Home Meds and New Rx's Prescriptions: New benzonatate 100 mg Capsule 100 mg PO TID Qty: 0 0RF bisoprolol fumarate 5 mg Tablet 1.25 mg PO DAILY Qty: 0 0RF bumetanide 1 mg Tablet 2 mg PO DAILY Qty: 0 0RF cilostazol 100 mg Tablet 100 mg PO BID@0730,2000 Qty: 0 0RF eszopiclone [Lunesta] 2 mg Tablet 1 mg PO HS Qty: 0 0RF famotidine 20 mg Tablet 20 mg PO Q48H Qty: 0 0RF guaifenesin [Mucus Relief ER] 600 mg Tablet Extended Release 12hr 1,200 mg PO BID Qty: 0 0RF vancomycin 250 mg Capsule 250 mg PO QID Qty: 0 0RF ondansetron 4 mg Tablet,Disintegrating 4 mg PO Q6H PRN PRNQty: 0 0RF nicotine 21 mg/24 hr Patch 24 Hour 21 mg transdermal DAILY PRN PRNQty: 0 0RF miconazole nitrate 2 % Cream 45 g vaginal HS Qty: 0 0RF melatonin 3 mg Tablet 3 mg PO HS Qty: 0 0RF lorazepam 0.5 mg Tablet 0.5 mg PO QID PRN PRNQty: 0 0RF loperamide 2 mg Capsule 2 mg PO QLOOSE PRNQty: 0 0RF levalbuterol HCl [Xopenex] 1.25 mg/3 mL Solution For Nebulization 1.25 mg UPD Q4H PRN PRNQty: 0 0RF L. Acidophilus,Casei,Rhamnosus [Bio-K Plus] 1 cap PO DAILY Qty: 0 0RF insulin glargine [Lantus Solostar U-100 Insulin] 100 unit/mL (3 mL) Insulin Pen 35 units subcut DAILY Qty: 0 0RF insulin aspart U-100 100 unit/mL (3 mL) Insulin Pen See Rx Instructions .ROUTE .COMPLEX Qty: 0 0RF Rx Instructions: carb counting insulin SC TID AC 1 unit: 10 grams of carbs consumed subcutaneously before meals; insulin aspart U-100 100 unit/mL (3 mL) Insulin Pen 1 sliding scale dose subcut 0800,1200,1700 Qty: 0 0RF Rx Instructions: 3 units for every 50 points >150 Continued cetirizine 10 mg tablet 10 mg PO DAILY Qty: 90 3RF aspirin 81 mg tablet,delayed release (DR/EC) 81 mg PO DAILY Qty: 90 3RF atorvastatin 80 mg tablet 80 mg PO QPM Qty: 90 3RF fluticasone propionate [Flonase Allergy Relief] 50 mcg/actuation spray,suspension 2 spray intranasal DAILY PRN (Reason: allergy symptoms) Qty: 16 4RF Rx Instructions: administer into each nostril (DME) pen needle, diabetic [BD Ultra-Fine Short Pen Needle] 31 gauge x 5/16 needle See Rx Instructions .MEDSUPPLY Qty: 360 3RF Rx Instructions: Use with pens daily (DME) FreeStyle Consuelo 14 Day Frederick Misc See Rx Instructions .MEDSUPPLY Qty: 1 4RF Rx Instructions: Continuous glucose monitor (DME) FreeStyle Consuelo 14 Day Sensor Kit See Rx Instructions .MEDSUPPLY Qty: 6 4RF Rx Instructions: Continuous glucose monitor (DME) Aerochamber MV Spacer See Rx Instructions .ROUTE .MEDSUPPLY Qty: 2 4RF Rx Instructions: Use with inhalers Bevespi Aerosphere 9-4.8 mcg HFA aerosol inhaler 2 puff inhalation BID Qty: 10.7 4RF Hold Instructions: Has not started and does not wish to for now Rx Instructions: 2 puffs twice a day (DME) blood-glucose meter [OneTouch Ultra2 Meter] Kit See Rx Instructions .MEDSUPPLY Qty: 1 2RF Rx Instructions: Check blood sugar twice a day docusate sodium 100 mg capsule 100 mg PO DAILY (DME) OneTouch Ultra Test Strip See Rx Instructions .MEDSUPPLY Qty: 500 3RF Rx Instructions: Check blood sugar five times a day (DME) lancets [OneTouch UltraSoft Lancets] [facility] [place] See Rx Instructions .ROUTE .MEDSUPPLY Qty: 500 3RF Rx Instructions: Check blood sugar five times a day clopidogrel 75 mg tablet 75 mg PO DAILY Qty: 90 3RF albuterol sulfate 90 mcg/actuation HFA aerosol inhaler 2 puff inhalation Q4H PRN (Reason: shortness of breath or wheezing) Qty: 18 4RF cholecalciferol (vitamin D3) [Vitamin D3] 25 mcg (1,000 unit) Capsule 25 mcg PO DAILY ropinirole 0.5 mg tablet 0.25 mg PO BID Rx Instructions: 1 tablet daily around 5pm Changed prednisone 10 mg tablet 15 mg PO DAILY Qty: 0 0RF Discontinued insulin aspart U-100 100 unit/mL (3 mL) insulin pen 1 sliding scale dose subcut TID Qty: 9 3RF Rx Instructions: Sliding Scale Insulin Instructions 60-124 = 0 126-150 = 4 151-200 = 6 201-300 = 8 301-350 = 10 351-400 = 12 prednisone 2.5 mg tablet 2.5 mg PO DAILY insulin glargine [Lantus Solostar U-100 Insulin] 100 unit/mL (3 mL) insulin pen 25 unit subcut QAM Qty: 15 3RF Entresto 24-26 mg tablet 1 tab PO BID Qty: 90 4RF torsemide 20 mg tablet 40 mg PO BID Qty: 180 3RF Discharge Instructions Instructions: Heart Failure (DC), Acute Kidney Injury (DC), Cellulitis (DC), Acute Respiratory Failure (GEN) Additional Instructions: Return to the hospital with any fever, bleeding, chest pain, or shortness of breath. Stand Alone Forms: Nursing Discharge Form Referrals: [place]PH[place],[facility] [place]] - (A Referral was Faxed to [facility] [place] 02/02/2023 Phone# Fax# ) [facility] - Katherine Andre NP [Primary Care Provider] - (Follow up per [facility]) Hina Pickens DPM [[facility] STAFF PHYSICIAN] - Sujatha Meneses MD [ [facility] STAFF PHYSICIAN] - Christina Hugo MD [ [facility] STAFF PHYSICIAN] - 05/04/23 2:00 pm Activity:: Activity as Tolerated Equipment/Supplies:: No Equipment Needed Diet:: low sodium carb consistent Discharge Orders Discharge Orders: Discharge Order (Routine); Ordered 02/02/23 Ordered By: Vivienne Hernandez Discharge Data Discharge Date/Time-TO BE ENTERED AT DEPARTURE: 02/02/23 12:10 DS: Summary Time Spent with Patient providing and/or coordinating discharge services: Greater than 30 minutes Status at Discharge Functional status at discharge: uses cane/walker Overall status at discharge: patient is back to baseline Mental Status: mental status grossly normal Speech and Movement: speech and movement normal Mood: congruent mood Affect: normal affect Exam Narrative Exam Narrative: General: female, A&Ox3, sitting up at the side of the bed HEENT: EOMI, MMM Heart: slightly irregular rate/rhythm Lungs: CTAB Abdomen: soft, distended, midline large ventral hernia, nontender Extremities: no edema BLEs, R ankle wrapped. Psych Mental Status: mental status grossly normal Speech and Movement: speech and movement normal Mood: congruent mood Affect: normal affect DS: Data Vitals/I&O Vitals and I&O: Vital Signs Temperature 36.1 C L 02/02/23 06:23 Temperature Source Tympanic 02/02/23 06:23 Pulse 99 H 02/02/23 06:23 Pulse Rhythm Regular 02/02/23 08:00 Pulse 89 01/07/23 10:58 Respiratory Rate 20 02/02/23 06:23 Respiratory Effort Normal, Non-Labored 02/02/23 08:00 Respiratory Depth Normal 02/02/23 08:00 Respiratory Pattern Normal 02/02/23 08:00 Blood Pressure 113/64 02/02/23 06:23 Blood Pressure Mean 87 01/06/23 16:00 Blood Pressure Position Sitting 01/06/23 13:52 Pulse Oximetry 95 02/02/23 08:00 Oxygen Delivery Method Nasal Cannula 02/02/23 08:26 Oxygen Flow Rate 2 02/02/23 08:26 Pain Level 8 02/02/23 07:51 Comment RN notified 01/27/23 23:00 Intake & Output 02/01/23 02/01/23 02/02/23 11:59 23:59 11:59 Intake Total 960 / 960 Output Total 400 / 1350 950 / 1350 200 / 200 Balance -400 / -390 10 / -390 -200 / -200 Weight 72.1 kg Intake: Oral 960 / 960 Output: Urine 400 / 1350 950 / 1350 200 / 200 Other: Urine Color Yellow Yellow Yellow Urine Appearance Clear Cloudy Clear Urine Odor Normal Normal Stool Size Small Moderate Large Stool Characteristics Soft Soft Soft Brown Formed Brown Voiding Methods Bedside Commode Bedside Commode Bedside Commode Data Completed and Pending Completed studies during hospitalization [Text1]: XR R foot 01/06/23: Soft tissue swelling.? No plain film evidence of osteomyelitis. CXR 01/06/23: Interstitial disease with chronic component.? Also new infiltrate in the right lung base. Venous doppler BLEs 01/06/23: 1.? No ultrasound evidence of DVT in either lower extremity. CXR 01/11/23: Bilateral pleural effusions and CHF. CXR 01/16/23: 1. Persistent pulmonary vascular congestion and bilateral pleural effusions.? Improved infiltrates since the prior examination.? MRI R foot w/o contrast 01/16/23: 1. There is subcutaneous edema over the entire dorsal aspect of the foot.? This is most prominent over the midfoot and metatarsals. 2. No obvious abnormal intraosseous signal to suggest osteomyelitis, realizing the limitations of this limited study. US soft tissue R foot 01/19/23: Probable dorsal abscess of the foot as described above. CXR 01/22/23: Pulmonary venous congestion and small right pleural effusion. Labs on day of discharge: Labs from last 24 hours 02/02/23 02/02/23 02/02/23 06:15 06:15 06:15 WBC 10.27 RBC 2.83 L Hgb 7.7 L Hct 25.0 L MCV 88 MCH 27.2 MCHC 30.8 L RDW 17.1 H Plt Count 210 MPV 10.4 Immature Gran % 0.3 Neutrophils % 77.4 Lymphocytes % 12.2 Monocytes % 8.9 Eosinophils % 1.0 Basophils % 0.2 Nucleated RBC % 0.0 Absolute Neutrophils 7.96 H Absolute Lymphocytes 1.25 Absolute Monocytes 0.91 H Absolute Eosinophils 0.10 Absolute Basophils 0.02 Sodium Potassium Chloride Carbon Dioxide Anion Gap BUN Creatinine Est GFR (CKD-EPI 2020) Glucose Calcium Magnesium Procalcitonin 0.1 COVID-19 Source SARS-CoV-2 (PCR) Add-On Test Request DONE 02/02/23 02/01/23 06:15 17:50 WBC RBC Hgb Hct MCV MCH MCHC RDW Plt Count MPV Immature Gran % Neutrophils % Lymphocytes % Monocytes % Eosinophils % Basophils % Nucleated RBC % Absolute Neutrophils Absolute Lymphocytes Absolute Monocytes Absolute Eosinophils Absolute Basophils Sodium 135 L Potassium 4.3 Chloride 96 L Carbon Dioxide 31.3 Anion Gap 7.7 BUN 107 H* Creatinine 3.5 H Est GFR (CKD-EPI 2020) 13.23 Glucose 136 H Calcium 9.4 Magnesium 2.8 H Procalcitonin COVID-19 Source Nasal/Nares SARS-CoV-2 (PCR) Negative Add-On Test Request [facility] All Active Problems (Updated 01/31/23 @ 18:54 by Vivienne Hernandez MD) Right foot infection (Acute) Discharge planning issues (Acute) DVT prophylaxis (Acute) CKD (chronic kidney disease) (Chronic) Chronic anemia (Acute) CHF (congestive heart failure) (Chronic) Elevated troponin (Acute) Heart failure with reduced ejection fraction (Chronic) Acute kidney injury superimposed on chronic kidney disease (Acute) Chronic respiratory failure with hypoxia (Acute) CKD (chronic kidney disease) stage 4, GFR 15-29 ml/min (Acute) Non-ST elevation OK (NSTEMI) (Acute ~10/2022) Type 2 diabetes mellitus with retinopathy of both eyes, with long-term current use of insulin (Chronic) Chronic obstructive pulmonary disease (Chronic) O2 dependent on 3L NC Polymyalgia rheumatica (Chronic) Carotid atherosclerosis (Chronic) Iron deficiency anemia (Chronic) Essential hypertension (Chronic) GERD (gastroesophageal reflux disease) (Chronic) Pulmonary nodule (Chronic) Nicotine dependence, cigarettes, uncomplicated (Chronic) Annual LDCT Osteoarthritis of hips, bilateral (Chronic) Diabetic nephropathy (Chronic) Ventral hernia (Chronic) Generalized anxiety disorder (Chronic) Benign positional vertigo (Chronic) 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 Father Diabetes Daughter No problems noted. Daughter No problems noted. Daughter No problems noted. Daughter No problems noted. Social History Smoking/Tobacco Use Status: Current-Occasional Tobacco Type: cigarettes Smoking packs per day: 2 Smoking cigarettes per day: 40.0 Years smoked: 59 Smoking pack-years: 118.00 Smoking risk assessment performed?: Yes Alcohol Intake: never Drug use: Never Substance use type: does not use 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 Pets and animals: Yes Pets and animals: cat(s) Current gender identity: female What type of physical activity do you participate in: none Irma/Orthodoxy: Hoahaoism Special irma needs: No Do you feel safe at home: Yes Do you feel safe in your relationship?: Yes Additional Social history: Lives alone in apartment at [place]. 4 daughters Time Spent with Patient Time Spent with Patient: >85 minutes Time was spent: preparing to see the patient(eg.review tests), obtaining and/or reviewing separately otained hiistory, ordering medications,tests, procedures, referring, communicating with other health career services assistant, indepentently interpreting results, counseling the patient and care coordination
--- NOTE | 2023-02-02 12:32 | NUR.NOTE ---
[facility] Called [phone]. All questions & or concerns were answered as well as a ETA of arrival. Nursing Note:
== END 2023-02-02 12:10 | disposition skilled nursing facility (03) | DRG 637 ==
LOC: ER 17:34 → MS 18:09
PROVIDERS: Family Medicine; Internal Medicine; Nurse Practitioner Acute Care; Nurse Practitioner Family; Surgery; Admitting Provider Internal Medicine; Emergency Provider Student in an Organized Health Care Education/Training Program; PCP Nurse Practitioner Family; Visit Provider Internal Medicine
DX: E11.628 Type 2 diabetes mellitus with other skin complications (principal); I50.23 Acute on chronic systolic (congestive) heart failure; L03.115 Cellulitis of right lower limb; J96.11 Chronic respiratory failure with hypoxia; I13.0 Hypertensive heart and chronic kidney disease with heart failure and stage 1 through stage 4 chronic kidney disease, or unspecified chronic kidney disease; A04.72 Enterocolitis due to Clostridium difficile, not specified as recurrent; I24.8 Other forms of acute ischemic heart disease; M86.8X7 Other osteomyelitis, ankle and foot; L02.611 Cutaneous abscess of right foot; N18.4 Chronic kidney disease, stage 4 (severe); N17.9 Acute kidney failure, unspecified; E11.319 Type 2 diabetes mellitus with unspecified diabetic retinopathy without macular edema; Z79.4 Long term (current) use of insulin; J43.2 Centrilobular emphysema; M35.3 Polymyalgia rheumatica; D50.9 Iron deficiency anemia, unspecified; K21.9 Gastro-esophageal reflux disease without esophagitis; M16.0 Bilateral primary osteoarthritis of hip; F17.210 Nicotine dependence, cigarettes, uncomplicated; K43.9 Ventral hernia without obstruction or gangrene; E11.22 Type 2 diabetes mellitus with diabetic chronic kidney disease; F41.1 Generalized anxiety disorder; G25.81 Restless legs syndrome; I25.10 Atherosclerotic heart disease of native coronary artery without angina pectoris; I25.2 Old myocardial infarction; Z99.81 Dependence on supplemental oxygen; I65.29 Occlusion and stenosis of unspecified carotid artery; Z86.73 Personal history of transient ischemic attack (TIA), and cerebral infarction without residual deficits; E11.649 Type 2 diabetes mellitus with hypoglycemia without coma; Z66 Do not resuscitate; I73.9 Peripheral vascular disease, unspecified; E11.69 Type 2 diabetes mellitus with other specified complication; E11.65 Type 2 diabetes mellitus with hyperglycemia; Z91.148 Patient's other noncompliance with medication regimen for other reason; I27.20 Pulmonary hypertension, unspecified
CPT/HCPCS: 10060; 36410; 36415; 76881; 80048; 80053; 82533; 82550; 82668; 82947; 84145; 85027; 87040; 87081; 87206; 87493; 87635; 93005; 94640; 96365; 96366; 96367; 97110; 97162; 97530; 99222; 99223; 99231; 99232; 99285; 71045; 71046; 73620; 73718; 81003; 81015; 82607; 82728; 82746; 83540; 83550; 83605; 83735; 83880; 84466; 84484; 85025; 85045; 86140; 87070; 87086; 87205; 93010; 93970; 94664; 94667; 94668; 94760; 99233; 99239; J0690; J0834; J1644; J1756; J3490; J7512